=== PATIENT | female | born 1945 | race Caucasian/White ===

== ENCOUNTER → 2018-01-29 11:13 | Outpatient (CLI) | payer MEDICARE, SELFPAY ==
[2018-01-29 12:05] LABS: Hemoglobin A1c 5.8 % (4.2-6.3)
[2018-01-29 12:36] LABS: ALB/GLOB Ratio 0.8 RATIO (0.9-2.4); AST(SGOT) 14 U/L (15-37); Alanine Aminotransfer ALT/SGPT 19 U/L (13-56); Albumin, Serum 3.4 g/dL (3.2-5.0); Alkaline Phosphatase 45 U/L (45-117); Anion Gap 7 (5-15); BUN 18 mg/dL (7-18); BUN/Creat Ratio 16.2 RATIO (10-20); Calcium,Total 8.8 mg/dL (8.5-10.1); Chloride 100 mmol/L (98-107); Cholesterol 188 mg/dL (200); Creatinine, Serum 1.11 mg/dL (0.55-1.02); EST Glomerular Filtration Rate 51 mL/min (>60); Est Glom Filt Rate - Afr Amer 62 mL/min (>60); Globulin 4.1 g/dL (2.2-4.2); Glucose 100 mg/dL (74-106); High Density Lipoprotein 61 mg/dL; Potassium 4.1 mmol/L (3.5-5.1); Protein, Total 7.5 g/dL (6.4-8.2); Sodium Level 138 mmol/L (136-145); Thyroid Stim Hormone (TSH) 2.58 uIU/mL (0.358-3.74); Triglycerides 173 mg/dL; Very Low Density Lipoprotein 35 mg/dL (5-40)
[2018-01-29 13:17] LABS: Microalbumin,Random Urine 74.5 mg/L (NO RANGE EST.); Microalbumin:Creatinine Ratio 43.8 mg/g CRE (<30 mg/g CRE)
== END ==
PROVIDERS: Family Provider Family Medicine; PCP Family Medicine; Visit Provider Family Medicine
DX: I10 Essential (primary) hypertension (principal); E78.2 Mixed hyperlipidemia; E03.9 Hypothyroidism, unspecified; E11.9 Type 2 diabetes mellitus without complications
CPT/HCPCS: 36415; 80053; 80061; 82043; 82570; 83036; 84443

== ENCOUNTER → 2018-05-12 12:24 | Outpatient (CLI) | payer MEDICARE, SELFPAY | PROVIDERS: Family Provider Family Medicine; PCP Family Medicine; Visit Provider Nurse Practitioner Adult Health | DX: R82.99 Other abnormal findings in urine (principal); R32 Unspecified urinary incontinence | CPT/HCPCS: 87086; 87088 ==

== ENCOUNTER → 2018-07-20 11:53 | Outpatient (CLI) | payer MEDICARE, SELFPAY ==
[2018-07-20 13:44] LABS: Anion Gap 10 (5-15); BUN 19 mg/dL (7-18); BUN/Creat Ratio 20.2 RATIO (10-20); Chloride 105 mmol/L (98-107); Creatinine, Serum 0.94 mg/dL (0.55-1.02); EST Glomerular Filtration Rate 62 mL/min (>60); Est Glom Filt Rate - Afr Amer 75 mL/min (>60); Glucose 103 mg/dL (74-106); Potassium 3.3 mmol/L (3.5-5.1); Sodium Level 143 mmol/L (136-145)
[2018-07-20 13:46] LABS: Hemoglobin A1c 5.6 % (4.2-6.3)
== END ==
PROVIDERS: Family Provider Family Medicine; PCP Family Medicine; Visit Provider Family Medicine
DX: E11.9 Type 2 diabetes mellitus without complications (principal)
CPT/HCPCS: 36415; 80048; 83036

== ENCOUNTER 2018-08-18 05:16 | Day surgery (SDC) | payer MEDICARE, SELFPAY ==
[2018-08-18 05:42] VITALS: BP 151/88; PULSE 90; RESP 18; TEMP 36.3; O2SAT 97; BMI 42.5
[2018-08-18] MEDS: Cefazolin 2 GM in 0.9% Normal Saline 100 ML IV (07:44)
--- NOTE | 2018-08-18 08:35 | DCINST_ITS ---
Discharge Diet: No Restrictions Discharge Activity: Return to Normal Activity, May Not Drive - for 2 days. Additional Activity Instructions:: Please be aware that pain medications may cause nausea. You should typically eat light foods as you take your pain medication. Pain medication may cause constipation, if this is a problem for you, please discuss with your doctor. Call your doctor if your incision/area has: Sudden Increased Bleeding, Increased Pain/ Swelling, Increased Redness Call your doctor if you observe: Fever of 101 or Higher Additional Instructions: take ibuprofen, tyelnol and advil for pain. Allergies/Adverse Reactions: Allergies Sulfa (Sulfonamide Antibiotics) Allergy (Verified 08/11/18 10:25) Unknown sulfamethoxazole [From Septra] Allergy (Verified 08/11/18 10:25) Unknown trimethoprim [From Septra] Allergy (Verified 08/11/18 10:25) Unknown acetaminophen [From Vicodin] Adverse Reaction (Verified 08/11/18 10:25) Nausea/Vom/Diarrhea codeine Adverse Reaction (Verified 08/11/18 10:25) Nausea/Vom/Diarrhea hydrocodone [From Vicodin] Adverse Reaction (Verified 08/11/18 10:25) Nausea/Vom/Diarrhea lisinopril Adverse Reaction (Verified 08/11/18 10:25) cough Medications to take at Discharge Albuterol Aerosols [Ventolin Aerosols] 2.5 mg INHALATION Q4H PRN PRN 08/11/18 Hydrochlorothiazide 12.5 mg PO DAILY 08/11/18 Levothyroxine [Synthroid] 50 mcg PO DAILY 08/11/18 Metformin HCl [Metformin HCl ER] 500 mg PO DAILY 08/11/18 Multivit with Calcium,Iron,Min [Multiple Vitamins For Women] 1 each PO DAILY 08/11/18 Polyethylene Glycol 3350 [Miralax] 17 gm PO DAILY 08/11/18 Potassium Chloride [Klor-Con M10] 10 meq PO DAILY 08/11/18 Simvastatin [Zocor] 20 mg PO QHS 08/11/18 Primary Care Physician: Harjinder Borjas MD [Primary Care Provider] - Test Results: Test results from this visit will be discussed in further detail at your follow- up appointment, if applicable. Please Follow Up With: Earnest Lindsey MD When: in 2 weeks, please call to make an appointment.
[2018-08-18 08:37] VITALS: BP 124/59; BP 151/88; PULSE 83; RESP 18; TEMP 36.6; O2SAT 98
[2018-08-18 08:40] VITALS: BP 115/69; BP 151/88; PULSE 82; RESP 18; O2SAT 97
--- NOTE | 2018-08-18 08:40 | OP.PCM_ITS ---
Report of Operation Date of Procedure: 08/18/18 Pre-Operative Diagnosis: Overactive bladder, urgency and urge incontinence Post-Operative Diagnosis: Same Surgery/Procedure Performed:: InterStim therapy stage I and stage II Description of Surgical Findings:: 73-year-old female with a history of overactive bladder urgency number urge incontinence who is failed medical therapy. She underwent a percutaneous nerve evaluation trial in the office which was successful. So now she presents to the operating room for a stage I and II InterStim implant. 73-year-old female taken back to the operating room with smooth induction of MAC local she was placed prone on the table facedown pressure points padded we then exposed the lower back sacrum buttocks this was all prepped and draped in usual sterile fashion we then came in with fluoroscopy first identified the spinous process in the pelvis put a marker across that to akshat the the S3 foramen location I then marked the foraminal location laterally. We then marched up 2 cm from our entry point to the S3 foramen on fluoroscopy attempted to go the needle bit into the drop in then looking at the patient's body habitus we decided to switch to a longer needle I then marched up another 2 cm in order to have the proper angle into the S3 foramen and with this we then went in with a longer needle into the S3 foramen on the patient's right side. We then tested the electrode and she had good shannon and a toe response. So I then made an incision in the skin introduced the sheath stylette advanced this in so that the radiopaque marker was three fourths of the way between the anterior and po sterior plate of the sacrum. We then pulled the stylet out and placed the curved stylette and the electrode this is the electrode with 4-lead 0.012 and 3. Once we will advance the electrode into good position we put the 3 above the plate and 2 1 and 0 below the plate we checked anteriorly and a nice curve out and then we checked the lead placement checked 0 had good shannon and good toe checked 1 2 and 3 and same good shannon good tone in all 3 leads and 0 L well so because of this then we pulled the back of the sheath released and the times and the electrode was then left in place to stimulate the nerve and S3 nerve with good stimulation at 012 and 3. I then created a pocket laterally to the insertion point and pocket was deep in the subcutaneous layer for the generator pocket. I then tunneled from the insertion site to the pocket with a tunnel device and through the plastic sheath and then tunneled the lead to the pocket and then once in the pocket cleaned off the lead to make sure there is no blood tissue or fluid on it put it into the generator for the staged two-part and then to then use the using the provided bolt I then pulled secure the lead to the generator and then put into the pocket we then tested for impedance and there was no high impedance and good communication with the lead and all circuits were intact this was checked by the [employer] rep. We then closed the insertion site incision with a single stitch and then we closed the pocket with interrupted 0 Vicryls and the skin with 4-0 Monocryl patient's anesthetic was reversed and she was taken back to the PACU in good condition she will have her lead and InterStim device stimulated and she undergo training to use it and will see her back in the office in 2 weeks for checkup Type of Anesthesia:: Local MAC - Admit VTE Documentation VTE Present on Admission: No VTE Mechan Device Prophylaxis: SCD's
[2018-08-18 08:45] VITALS: BP 132/71; BP 151/88; PULSE 84; RESP 16; O2SAT 98
[2018-08-18 08:53] VITALS: BP 128/70; BP 151/88; PULSE 81; RESP 18; TEMP 36.7; O2SAT 100
[2018-08-18 09:19] VITALS: BP 151/88
== END 2018-08-18 09:26 | disposition home or self-care (01) ==
LOC: SDC 05:18 → AC 05:33
PROVIDERS: Family Provider Family Medicine; PCP Family Medicine; Visit Provider Urology
PROC: (CPT 64581; principal; 2018-08-18 07:15)
PROC: (CPT 64581; 2018-08-18 07:15)
DX: N32.81 Overactive bladder (principal); N39.41 Urge incontinence; R35.0 Frequency of micturition; R33.9 Retention of urine, unspecified; R35.1 Nocturia; I10 Essential (primary) hypertension; E78.00 Pure hypercholesterolemia, unspecified; H91.90 Unspecified hearing loss, unspecified ear; Z78.0 Asymptomatic menopausal state; E66.9 Obesity, unspecified; Z68.41 Body mass index [BMI] 40.0-44.9, adult; Z79.84 Long term (current) use of oral hypoglycemic drugs; Z79.899 Other long term (current) drug therapy; Z87.891 Personal history of nicotine dependence
CPT/HCPCS: 64581; 64590; 95970; 76000; J7120; C1767; C1778; C1820; J2405

== ENCOUNTER → 2018-09-02 11:07 | Outpatient (CLI) | payer MEDICARE, SELFPAY ==
[2018-09-02 12:00] LABS: Potassium 3.8 mmol/L (3.5-5.1)
== END ==
PROVIDERS: Family Provider Family Medicine; PCP Family Medicine; Referring Provider Family Medicine; Visit Provider Family Medicine
DX: E78.2 Mixed hyperlipidemia (principal); E11.9 Type 2 diabetes mellitus without complications; E87.6 Hypokalemia
CPT/HCPCS: 36415; 84132

== ENCOUNTER 2018-10-29 10:23 | Day surgery (SDC) | payer MEDICARE, SELFPAY ==
[2018-10-29 10:52] VITALS: BP 159/81; PULSE 90; RESP 16; TEMP 37.4; O2SAT 96; BMI 44.1
[2018-10-29] MEDS: Cefazolin 1 GM/50 ML BAG IV (12:36)
--- NOTE | 2018-10-29 13:10 | DCINST_ITS ---
Discharge Diet: Light diet - advance as tolerated Discharge Activity: Return to Normal Activity Call your doctor if you observe: Fever of 101 or Higher Allergies/Adverse Reactions: Allergies Sulfa (Sulfonamide Antibiotics) Allergy (Verified 10/28/18 14:36) Unknown sulfamethoxazole [From Septra] Allergy (Verified 10/28/18 14:36) Unknown trimethoprim [From Septra] Allergy (Verified 10/28/18 14:36) Unknown acetaminophen [From Vicodin] Adverse Reaction (Verified 10/28/18 14:36) Nausea/Vom/Diarrhea codeine Adverse Reaction (Verified 10/28/18 14:36) Nausea/Vom/Diarrhea hydrocodone [From Vicodin] Adverse Reaction (Verified 10/28/18 14:36) Nausea/Vom/Diarrhea lisinopril Adverse Reaction (Verified 10/28/18 14:36) cough Medications to take at Discharge Albuterol Aerosols [Ventolin Aerosols] 2.5 mg INHALATION Q4H PRN PRN 08/11/18 Hydrochlorothiazide 12.5 mg PO DAILY 08/11/18 Levothyroxine [Synthroid] 50 mcg PO DAILY 08/11/18 Metformin HCl [Metformin HCl ER] 500 mg PO DAILY 08/11/18 Multivit with Calcium,Iron,Min [Multiple Vitamins For Women] 1 each PO DAILY 08/11/18 Polyethylene Glycol 3350 [Miralax] 17 gm PO DAILY 08/11/18 Potassium Chloride [Klor-Con M10] 10 meq PO DAILY 08/11/18 Simvastatin [Zocor] 20 mg PO QHS 08/11/18 Cephalexin [Keflex] 500 mg PO Q8 #9 capsule 10/29/18 Mirabegron [Myrbetriq] 1 mg PO DAILY 30 Days #30 tab.er.24h 10/29/18 Solifenacin Succinate [Vesicare] 10 mg PO DAILY #30 tablet 10/29/18 The following prescriptions were given: Cephalexin [Keflex] 500 mg PO Q8 #9 capsule Mirabegron [Myrbetriq] 1 mg PO DAILY 30 Days #30 tab.er.24h Solifenacin Succinate [Vesicare] 10 mg PO DAILY #30 tablet Primary Care Physician: Harjinder Borjas MD [Primary Care Provider] - Test Results: Test results from this visit will be discussed in further detail at your follow- up appointment, if applicable. Please Follow Up With: Earnest Lindsey MD When: in 4 weeks, please call to make an appointment.
--- NOTE | 2018-10-29 13:10 | PCM.OPRPT ---
Report of Operation Date of Procedure: 10/29/18 Pre-Operative Diagnosis: Status post placement of InterStim device with severe pain Post-Operative Diagnosis: Same Surgery/Procedure Performed:: Removal of InterStim device complete. Description of Surgical Findings:: 73-year-old female who underwent a stage I and stage II InterStim placement successful placement with good response to the stimulation had better bladder control however in follow-up in the office she had severe pain in the back pain with movement she could move around very uncomfortable in the bed, expanded the patient is not normal we give it some time to see if the pain would resolve but the pain continued we try treating off the stimulator and still has a lot of pain in the back pain in the lower back and there is concerned that maybe is an infection or may be the InterStim device was pushing against the nerve or causing some discomfort so at this point I recommended we remove the InterStim device even though it was helping her bladder control I was concerned that living with his chronic pain that was new after placement would not be tolerated. Therefore we took the patient back to the operating room today after smooth induction of a MAC local she was placed facedown on the table the prior incision was was prepped and draped in usual sterile fashion infiltrated lidocaine into the incision and also to the insertion site, made an incision along the prior pocket dissected down to the generator device open up the pseudocapsule around the generator device we took a culture did not look infected, I then cut the lead remove the generator I then made an incision over the lead entry site pulled the lead through and then did a culture of the entry site of the lead again no pus was noted. Then I gently pulled on the lead and the lead came out from the patient's back. Copiously irrigated both the wounds and then include closed the insertion site for the lead placement and then closed the pocket site after obtaining hemostasis. Again no signs of infection not clear why she was having so much pain after the placement of the InterStim device told the patient is the first time I had the sort of pain or problem but given the new onset of pain after placement of the device best regulation caregivers to remove the device and see if the pain goes away. I will probably see the patient back in the office for follow-up in a few weeks. Type of Anesthesia:: Local MAC Drains: none - Admit VTE Documentation VTE Present on Admission: No VTE Mechan Device Prophylaxis: SCD's
[2018-10-29 13:13] VITALS: BP 158/76; BP 159/81; PULSE 94; RESP 16; TEMP 36.3; O2SAT 94
[2018-10-29 13:18] VITALS: BP 159/81; BP 162/64; PULSE 88; RESP 16; O2SAT 97
[2018-10-29 13:23] VITALS: BP 158/65; BP 159/81; PULSE 87; RESP 16; TEMP 36.1; O2SAT 99
[2018-10-29 13:28] VITALS: BP 159/81; BP 161/74; PULSE 87; RESP 16; TEMP 36.2; O2SAT 97
[2018-10-29 14:29] VITALS: BP 156/74; BP 159/81; PULSE 88; RESP 16; TEMP 36.2; O2SAT 96
--- OUTSIDE RECORDS SUMMARY | 2018-12-15 01:12 | XMS RPT_ITS ---
:1945 Author Organization [place] Support Name Relationship Address Phone ROBBIE HUNT Unavailable Unavailable + ROBBIE HUNT Unavailable [address] + [place] [address] R Unavailable Unavailable Unavailable NIKKI READ Unavailable Unavailable + ROBBIE HUNT Unavailable [address] + [place] [address] R Unavailable Unavailable Unavailable NASIR HUNTRY Unavailable [address] + [place] [address] R Unavailable Unavailable Unavailable NIKKI READ Unavailable Unavailable + ROBBIE HNUT Unavailable [address] + [place] [address] R Unavailable Unavailable Unavailable NIKKI READ Unavailable Unavailable + NASIR HUNTRY Unavailable [address] + [place] [address] R Unavailable Unavailable Unavailable NIKKI READ Unavailable Unavailable + ROBBIE HUNT Unavailable [address] + [place] [address] R Unavailable Unavailable Unavailable MARILEE ROBBIE Unavailable [address] + [place] [address] R Unavailable Unavailable Unavailable MARILEE ROBBIE Unavailable [address] + [place] [address] R Unavailable Unavailable Unavailable MARILEE ROBBIE Unavailable [address] + [place] [address] R Unavailable Unavailable Unavailable MARILEE ROBBIE Unavailable [address] + [place] [address] R Unavailable Unavailable Unavailable MARILEE ROBBIE Unavailable [address] + [place] [address] R Unavailable Unavailable Unavailable MARILEE ROBBIE Unavailable [address] + [place] [address] R Unavailable Unavailable Unavailable Care Team Providers Name Role Phone Michaelle Harjinder Attending Unavailable Woodlawn, Harjinder Primary Care Unavailable Woodlawn, Harjinder Referring Unavailable Florence Rosa Attending Unavailable Woodlawn, Harjinder Primary Care Unavailable Florence Rosa Referring Unavailable Woodlawn, Harjinder Attending Unavailable Michaelle, Harjinder Primary Care Unavailable Michaelle, Harjinder Referring Unavailable César, Earnest Falcon Attending Unavailable César, Earnest Falcno Referring Unavailable Woodlawn, Harjinder Primary Care Unavailable Woodlawn, Harjinder Attending Unavailable Michaelle, Harjinder Primary Care Unavailable Woodlawn, Harjinder Referring Unavailable César, Earnest Falcon Attending Unavailable César, Earnest Falcon Referring Unavailable Woodlawn, Harjinder Primary Care Unavailable Michaelle, Harjinder Attending Unavailable Woodlawn, Harjinder Referring Unavailable Michaelle, Harjinder Primary Care Unavailable Woodlawn, Harjinder Primary Care Unavailable Agyepong, Arthur Admitting Unavailable Chan, Nickolas Consulting Unavailable Cam Hadley Attending Unavailable Prah, Arthur Consulting Unavailable Agyepong, Arthur Admitting Unavailable Agyepong, Arthur Attending Unavailable Woodlawn, Harjinder Primary Care Unavailable Agyepong, Arthur Consulting Unavailable Agyepong, Arthur Admitting Unavailable Prah, Arthur Attending Unavailable Woodlawn, Harjinder Primary Care Unavailable Chan, Nickolas Consulting Unavailable Jopperi, Cam Referring Unavailable Prah, Arthur Consulting Unavailable Joppriddhi, Cam Consulting Unavailable Agyepong, Arthur Admitting Unavailable Woodlawn, Harjinder Primary Care Unavailable Chan, Nickolas Consulting Unavailable Cam Hadley Attending Unavailable Prah, Arthur Consulting Unavailable Joppriddhi, Cam Consulting Unavailable Agyepong, Arthur Admitting Unavailable ChanNickolas randall Attending Unavailable Woodlawn, Harjinder Primary Care Unavailable Chan, Nickolas Consulting Unavailable Prah, Arthur Consulting Unavailable Jopperi, Cam Consulting Unavailable HARJINDER BRASWELL Attending Unavailable HARJINDER BRASWELL Referring Unavailable MICHAELLE, HARJINDER Min Attending Unavailable Isra RODRIGUEZ (JESSICA) Attending Unavailable HARJINDER BRASWELL Attending Unavailable MICHAELLEHARJINDER Attending Unavailable HARJINDER BRASWELL Referring Unavailable MICHAELLEHARJINDER Referring Unavailable MICHAELLEHARJINDER Referring Unavailable MD SHANE RINCON Admitting Unavailable MD SHANE RINCON Referring Unavailable UNKNOWN, PCP Primary Care Unavailable Dr. Cheng Bethea Attending Unavailable PROBLEMS PROBLEMS DATE TYPE CONDITION / CODE ATTENDING STATUS SOURCE 11/10/2018 Unknown R10.11 - Right Harjinder Braswell Active [facility] upper quadrant Community pain / Hospital R10.11(ICD-10) Repository 11/10/2018 Unknown R06.02 - Shortness Harjinder Braswell Active [facility] of breath / Community R06.02(ICD-10) Hospital Repository 07/30/2009 Active Localized edema / NA Active [facility] R60.0(ICD-10) [facility] Repository 11/10/2018 Active Shortness of NA Active [facility] breath / [facility] R06.02(ICD-10) Repository 11/10/2018 Active Low back pain / NA Active [facility] M54.5(ICD-10) [facility] Repository 05/13/2018 Unknown R82.99 - Other Florence Rosa Active [facility] abnormal findings M Community in urine / Hospital R82.99(ICD-10) Repository 01/29/2018 Active Pain in right knee NA Active [facility] / M25.561(ICD-10) [facility] Repository 02/05/2018 Unknown I10 - Essential Harjinder Braswell Active [facility] (primary) Community hypertension / Hospital I10(ICD-10) Repository PROCEDURES PROCEDURES No Procedure Records FoundRESULTS RESULTS PROGRESS Observed: 12/08/2018 Status: COMPLETED Source: [place] 10:54 AM CLINIC [facility] REPOSITORY HNO ID: [id number] Author: Nikki (Nighat) Navin Service: (none) Author Type: Registered Nurse Type: Progress Notes Filed: 12/08/2018 11:08 AM Note Text: TRANSITION CARE MANAGEMENT (TCM) DISCHARGE TO POST ACUTE FACILITY POST ACUTE TRANSFER SUMMARY: -Pt discharged from [facility] on 12/04/18. 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 Procedures: Date: 23-Nov-2018 17:31:00 Procedure Name: T10-11 transpedicular decompression of metastatic spine tumor, T7-L2 posterior instrumentation and fusion with allograft, use of intraoperative O arm, use of C arm fluoroscopy, use of ultrasound, placement of 2 subfascial drains Hospital Course: Ms. Hunt is a pleasant 73 year old female former smoker w/ PMHx significant for HTN, impaired fasting glucose, hyperlipidemia, peripheral neuropathy, hypothyroidism, GERD, morbid obesity and recent spinal cord stimulator implant for overactive bladder 08/2018 with removal 10/2018 due to persistent back pain who was transferred to [facility] on 11/12/18 from [facility] after presenting there on 11/11/18 with intractable progressive back pain radiating around waist in band of 2- 3 weeks accompanied by SOB with increased pain with deep breath. Due to the pain she had the spinal cord stimulator implanted in August removed on 10/25/18 without improvement of pain. A CT of the chest, abdomen and pelvis was obtained and showed occlusion of the right middle bronchus with pleural effusion and a suspected pathologic fracture of the T10 vertebral body with canal stenosis as well as additional vertebral lesions at T8, T9, and T11 suspicious for additional metastases. A diagnostic right thoracentesis via U/S was with cytology ultimately found to be negative. An MRI of the T spine was obtained and showed the lesion was not compressing the spine but was however in close proximity to the cord, and therefore she was given Decadron with request for transfer to [facility] under oncology for further evaluation by neurosurgery. Given lack of tissue diagnosis at time of transfer, she was admitted to medicine for further evaluation. Neurosurgery was consulted and did not find evidence of cord compression on imaging. A CT of the thoracic and lumbar spine was done followed by a MRI of the entire spine at neurosurgery request. MRI consistent with T10 fracture and additional metastases. IV fluids were given for a mild SHLOMO with resolution. Pulmonology was consulted and a bronchoscopy w/ EBUS done under general anesthesia and sampling of right hilar mass and subcarinal lymph node with pathology from LN biopsy showed adenocarcinoma with lung primary. Oncology was consulted and recommended PET scan showed right central middle lobe malignancy with multiple metastasis to the axial skeleton, mediastinal and bilateral hilar lymph nodes. The lung tumor pathology additionally showed Positive PD-L1 Expression - may benefit from anti PD-1 Immunotherapy such as Keytruda. Palliative Care was consulted. Decadron and pamidronate were added to narcotics for pain control. Radiation oncology was consulted and does not plan to start radiation therapy until postoperative period. Neurosurgery did a T10-T11 decompression w/ T7-L2 fusion for thoracic spinal metastasis w/ cord compression on 11/23/18 with marked improvement pain. The thoracic surgical pathology showed adenocarcinoma with involvement of soft tissue and bone. She had a postoperative anemia w/ hgb drop from 14 to 8 and received a unit of blood with Hgb then stable and 9 at discharge. An MRI of the thoracic spine was repeated postoperative at neurosurgery request and surgical drains were removed. She developed a leukocytosis of 13k 11/30/18 with urine culture post catheter removal showing > 100,000 E. Coli and klebsiella and she was started on Zosyn. The following day, she developed a new moist cough, with new right sided rales on exam with chest x-ray showed a right middle lobe consolidation. Vancomycin was initially added, but transitioned to levofloxacin with resolution of leukocytosis with plan to complete a total 10 day course of antibiotics to cover both the HCAP as well as the Polymicrobial CAUTI (low suspicion for MRSA given initial Zosyn response). Her leukocytosis resolved and cough improved. Fortunately, her chronic urge incontinence was partially responsive to oxybutynin which had been effective in the past. Her home Metformin ER was not initiated as blood glucose was well controlled, and her home losartan/HCTZ was not reinitiated due to normal BP. Her separate HCTZ will be resumed at discharge due to some leg edema. A referral was made to [facility] for oncology and radiation oncology follow up. She needs skilled Care for continued physical rehabilitation. On 12/04/18 Ms. Hunt was discharged to SNF in a stable condition. She was supposed to leave the prior day, but ambulance transport could not be arranged. Nikki Holden RN December 08, 2018 10:57 AM CLINICAL EVENT Observed: 12/04/2018 Status: UNK Source: [facility] DISCHARGE 12:43 PM HOSPITALS REPOSITORY Event: Topic: Hospital discharge Details: On 12/04/18 Ms. Hunt was discharged to SNF in a stable condition. She was supposed to leave the prior day, but ambulance transport could not be arranged. Provider / Team Contact Information: Provider/Team Contact Info-Pager Number: Austin Amanda CNP/ pager [phone] Electronic Signatures: Austin Amanda (ALIGNMENT SPECIALIST-GRIEVANCE MANAGER) (Signed 04-Dec-2018 12:43) Authored: Event, Provider / Team Contact Information Last Updated: 04-Dec-2018 12:43 by Austin Amanda (ALIGNMENT SPECIALIST-GRIEVANCE MANAGER) DISCHARGE SUMMARY Observed: 12/03/2018 Status: COMPLETED Source: [place] 5:31 PM HOSPITALS REPOSITORY Send Summary: Discharge Summary Providers: Provider RoleProvider Name AttendingCasimiro Yusuf Note Recipients: MICHAELLE HARJINDER Min - [phone] [] EARNEST HERRERA Joseph, MD - [phone] Discharge: Summary: Admission Date: .12-Nov-2018 22:58:00 Discharge Date: 03-Dec-2018 Attending Physician at Discharge: Cheng Bethea Admission Reason: Metastatic Lung Cancer w/ Cord Compression Final Discharge Diagnoses: . 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 Procedures: Date: 23-Nov-2018 17:31:00 Procedure Name: T10-11 transpedicular decompression of metastatic spine tumor, T7-L2 posterior instrumentation and fusion with allograft, use of intraoperative O arm, use of C arm fluoroscopy, use of ultrasound, placement of 2 subfascial drains ronchoscopy Nov 15, 2018 Condition at Discharge: Satisfactory Disposition at Discharge: Care Home Facility Vital Signs: T PRBPSpO2 [id number]/7293% Date/Time12/03 14: 14: 14:001 14:001 14:00 Range(36.2C - 37.1C ) (73 - 81 ) (19 - 20 ) (118 - 123 )/ (66 - 72 ) (93% - 97% ) Highest temp of 37.1 C was recorded at 12/02 21:52 . Physical Exam: Constitutional: Obese female lying in bed in NAD Eyes: Sclera white ENMT: MMM Head/Neck: Normocephalic Respiratory/Thorax: Nonlabored. Lungs CTA bilaterally. Cardiovascular: RRR. Normal S1/S2. No M/R/G noted. Gastrointestinal: Abdomen soft and nontender. Normoactive bowel sounds. Musculoskeletal: WRIGHT Extremities: +1 BLE edema. Neurological: Alert and oriented x3 Psychological: Appropriate mood and behavior; pleasant affect Skin: Long thoracic surgical incision with brittni intact. Hospital Course: Ms. Hunt is a pleasant 73 year old female former smoker w/ PMHx significant for HTN, impaired fasting glucose, hyperlipidemia, peripheral neuropathy, hypothyroidism, GERD, morbid obesity and recent spinal cord stimulator implant for overactive bladder 08/2018 with removal 10/2018 due to persistent back pain who was transferred to [facility] on 11/12/18 from [facility] after presenting there on 11/11/18 with intractable progressive back pain radiating around waist in band of 2- 3 weeks accompanied by SOB with increased pain with deep breath. Due to the pain she had the spinal cord stimulator implanted in August removed on 10/25/18 without improvement of pain. A CT of the chest, abdomen and pelvis was obtained and showed occlusion of the right middle bronchus with pleural effusion and a suspected pathologic fracture of the T10 vertebral body with canal stenosis as well as additional vertebral lesions at T8, T9, and T11 suspicious for additional metastases. A diagnostic right thoracentesis via U/S was with cytology ultimately found to be negative. An MRI of the T spine was obtained and showed the lesion was not compressing the spine but was however in close proximity to the cord, and therefore she was given Decadron with request for transfer to [facility] under oncology for further evaluation by neurosurgery. Given lack of tissue diagnosis at time of transfer, she was admitted to medicine for further evaluation. Neurosurgery was consulted and did not find evidence of cord compression on imaging. A CT of the thoracic and lumbar spine was done followed by a MRI of the entire spine at neurosurgery request. MRI consistent with T10 fracture and additional metastases. IV fluids were given for a mild SHLOMO with resolution. Pulmonology was consulted and a bronchoscopy w/ EBUS done under general anesthesia and sampling of right hilar mass and subcarinal lymph node with pathology from LN biopsy showed adenocarcinoma with lung primary. Oncology was consulted and recommended PET scan showed right central middle lobe malignancy with multiple metastasis to the axial skeleton, mediastinal and bilateral hilar lymph nodes. The lung tumor pathology additionally showed Positive PD-L1 Expression - may benefit from anti PD-1 Immunotherapy such as Keytruda. Palliative Care was consulted. Decadron and pamidronate were added to narcotics for pain control. Radiation oncology was consulted and does not plan to start radiation therapy until postoperative period. Neurosurgery did a T10-T11 decompression w/ T7-L2 fusion for thoracic spinal metastasis w/ cord compression on 11/23/18 with marked improvement pain. The thoracic surgical pathology showed adenocarcinoma with involvement of soft tissue and bone. She had a postoperative anemia w/ hgb drop from 14 to 8 and received a unit of blood with Hgb then stable and 9 at discharge. An MRI of the thoracic spine was repeated postoperative at neurosurgery request and surgical drains were removed. She developed a leukocytosis of 13k 11/30/18 with urine culture post catheter removal showing > 100,000 E. Coli and klebsiella and she was started on Zosyn. The following day, she developed a new moist cough, with new right sided rales on exam with chest x-ray showed a right middle lobe consolidation. Vancomycin was initially added, but transitioned to levofloxacin with resolution of leukocytosis with plan to complete a total 10 day course of antibiotics to cover both the HCAP as well as the Polymicrobial CAUTI (low suspicion for MRSA given initial Zosyn response). Her leukocytosis resolved and cough improved. Fortunately, her chronic urge incontinence was partially responsive to oxybutynin which had been effective in the past. Her home Metformin ER was not initiated as blood glucose was well controlled, and her home losartan/HCTZ was not reinitiated due to normal BP. Her separate HCTZ will be resumed at discharge due to some leg edema. A referral was made to [facility] for oncology and radiation oncology follow up. She needs skilled Care for continued physical rehabilitation. On 12/04/18 Ms. Hunt was discharged to SNF in a stable condition. She was supposed to leave the prior day, but ambulance transport could not be arranged. 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 May shower.. Weight-bearing Instructions: full weight bearing. Balance activity with rest, gradually increase your activity as tolerated Exercise as prescribed by your physician Slowly increase your activity level. You may feel fine but your body is still recovering and needs a balance of sleep and rest. It may take a month or two before you regain the energy you had before surgery No heavy lifting (more than 10 pounds), pulling or pushing activity until cleared by MD at follow-up appointment Nutrition/Diet: low sodium Labs: Lab Test(s): Basic Metabolic Panel, CBC Date To Be Drawn: one week Wound Care: Wound Site: Thoracic spine Wound Type: surgical incision Cover With: no dressing, leave open to air Inspect your incision daily for signs of infection: redness, swelling, drainage and foul discharge Keep surgical incision open to air DO NOT soak in a tub or swim until incision is completely healed. This may take approximately 4 weeks DO NOT scrub the incision DO NOT pick off scabs, or old blood from the incision site. The incision should heal naturally on its own No Lotions, creams, gels or powders. No hair products, conditioner, rubbing alcohol, hydrogen peroxide or ointments on or around your incision There may be some tenderness, bruising and a small amount of swelling along the incision line. This will gradually go away over the next several weeks Additional Orders: Blood Glucose Monitoring: daily Accu-Chek Weight: three times a week Additional Instructions: Home Metformin ER 500 mg daily and Losartan-HCTZ 50-12.5 mg have not currently been resumed due to good blood glucose and blood pressure control. JHONY wraps or sequential compression devices to bilateral lower legs. Rehab Services: Occupational Therapy Orders: Eval and Treat ([facility]) daily Physical Therapy Orders: Eval and Treat ([facility]) daily Infectious Disease: PPD Status: not given MRSA: no VRE: no C. Diff: no Other Resistant Organism: no Isolation Type: none Care Recommendation: I recommend that INPATIENT care is required at:: Skilled Estimated Stay: Convalescent stay < 30 days Follow Up Appointments: Follow-Up Appointment 01: Physician/Dept/Service: Dr. Harjinder Braswell (Primary Care Provider) Reason for Referral: hospital follow up Call to Schedule in: call to schedule a follow-up appointment upon discharge from detention facility Location: [address] [place] [address], [place] [id number] / Follow-Up Appointment 02: Physician/Dept/Service: Dr. Arthur Gates (Medical Oncology) Reason for Referral: Metastatic Lung Cancer Scheduled Date/Time: 09-Dec-2018 13:00 Location: [place] [id number] / crew scheduler [phone] Follow-Up Appointment 03: Physician/Dept/Service: Dr. Raji Guerrero (Radiation Oncology) Reason for Referral: Metastatic Lung Cancer to the Spine Call to Schedule in: to be arranged - if you have not heard by the time you see Dr. Gates, let him know Location: [place] [address] / crew scheduler [phone] Follow-Up Appointment 04: Physician/Dept/Service: Dr. Huber Tamayo (Neurosurgery) Reason for Referral: follow up Thoracic Spine Decompression with Fusion Surgery Scheduled Date/Time: 15-Dec-2018 14:00 Location: [facility] [address] [place] [address] Dr. Adan [address] [place] [id number] Discharge Medications: Home Medication hydroCHLOROthiazide 12.5 mg oral tablet - 1 tablet orally once a day simvastatin 20 mg oral tablet - (Zocor) 1 tablet orally once a day at bedtime potassium chloride 10 mEq oral tablet, extended release - 1 tablet orally once a day levothyroxine 50 mcg (0.05 mg) oral tablet - (Synthroid) 1 tablet orally once a day Multiple Vitamins oral tablet - 1 tablet orally once a day acetaminophen 325 mg oral tablet - 3 tablets (975 mg) orally three times a day enoxaparin - 40 mg subcutaneous every 12 hours polyethylene glycol 3350 oral powder for reconstitution - 17 grams orally 2 times a day pantoprazole 40 mg oral delayed release tablet - 1 tablet orally once a day (while getting non-steroidal anti-inflammatory medications for pain) levoFLOXacin 500 mg oral tablet - 1 tablet orally every 24 hours - stop 12/11/18 conjugated estrogens 0.625 mg/g vaginal cream with applicator - 0.25 applicatorful - place at urethral oriface once a day at bedtime oxybutynin 5 mg oral tablet - 1 tablet orally 4 times a day guaiFENesin 1200 mg oral tablet, extended release - 1 tablet orally every 12 hours lidocaine 5% topical film - Apply topically to upper back region of pain (may cut in half and apply on each side) once a day PRN Medication bisacodyl 10 mg rectal suppository - 1 suppository(ies) rectal once a day, As needed, constipation not relieved by Miralax oxyCODONE 5 mg oral tablet - 1 tablet orally every 4 to 6 hours up to four doses each day, As Needed for severe pain benzonatate 200 mg oral capsule - 1 capsule orally 3 times a day, As needed, Cough albuterol 2.5 mg/3 mL (0.083%) inhalation solution - 3 ml inhaled via Nebulizer every 6 hours, As Needed for shortness of breath naproxen 500 mg oral tablet - 1 tablet orally 2 times a day, As needed, back surgical pain Lab Results - Pending: None Radiology Results - Pending: Midline Placement in Radiology (greater than 5 years) at 17-Nov-2018 12:26:00 Signature/Cosignature/Attestation: Provider/Team Contact Info-Pager Miriam Carlos [facility] # [phone] Attending Only - Shared Visit with Advanced Practice ProviderThis is a shared visit. I have reviewed the Advanced Practice Providers encounter note, approve the Advanced Practice Providers documentation, and provide the following additional information from my personal encounter. Comments/ Additional Findings patient doing well. planned for discharge, but secondary to transportation issues this discharge was delayed Seen at the bedside. Did not leave the hospital last night. Still with some back pain and cough, but doing better. Would like to leave with her daughter, given delay in transport. OK to leave with family, patient stable, not on oxygen Discharge to SNF today. Total time spent on discharge planning and arrangements is more than 30 mins Electronic Signatures: Cheng Bethea) (Signed 07-Dec-2018 07:29) Authored: Summary Content, Ongoing Care, Signature/Cosignature/Attestation Co-Signer: Summary Content, Ongoing Care, Signature/Cosignature/Attestation Nessa Carlos (ALIGNMENT SPECIALIST-GRIEVANCE MANAGER) (Signed 03-Dec-2018 20:03) Authored: Send Summary, Summary Content, Ongoing Care, Signature/Cosignature/Attestation Austin Amanda Isra (ALIGNMENT SPECIALIST-GRIEVANCE MANAGER) (Signed 04-Dec-2018 12:42) Authored: Send Summary, Summary Content, Ongoing Care, Signature/Cosignature/Attestation Casimiro Yusuf) (Signed 05-Dec-2018 18:25) Authored: Summary Content, Ongoing Care, Signature/Cosignature/Attestation Co-Signer: Send Summary, Summary Content, Ongoing Care, Signature/Cosignature/Attestation Last Updated: 07-Dec-2018 07:29 by Cheng Bethea) CBC Collected: 12/03/2018 Status: F Source: [facility] 4:55 PM HOSPITALS REPOSITORY TYPE CODE TESTS RESULT OUT OF REFERENCE UNITS RANGE LAB WBCR(LOINC 4.4 - 11.3 x10E9/L ) WBC 7.1 LAB NRBC(LOINC 0.0-0.0 /100 WBC ) NUCLEATED RBC 0.0 LAB RBCCT(LOIN 4.00 - 5.20 x10E12/L C) Low RBC 2.99 LAB HGB(LOINC) 12.0 - 16.0 g/dL Low HGB 9.1 LAB HCT(LOINC) 36.0 - 46.0 % Low HCT 29.9 LAB MCV(LOINC) 80 - 100 fL MCV 100 LAB MCHC2(LOIN 32.0 - 36.0 g/dL C) Low MCHC 30.4 LAB PLTCT(LOIN 150 - 450 x10E9/L C) PLT High 510 LAB RDWCV(LOIN 11.5 - 14.5 % C) RDW-CV 14.1 Performed By: #### CBC #### [facility] [id number] [place] [address] DAILY PROGRESS Observed: 12/03/2018 Status: COMPLETED Source: [facility] NOTE-PALLIATIVE CARE 11:01 AM HOSPITALS REPOSITORY Consult Type: subsequent visit/care Service: Palliative Care Subjective Data: TRISH HUNT is a 73 year old Female who is Hospital Day # 22 and POD #10 for T10-11 transpedicular decompression of tumor, T7-L2 instrumented fusion. Additional Information: Subjective / interval events: - patient used oxycodone 5mg a total of 4 times yesterday (approx 5a, 9a, 3p, and 11p) - 24h opioid requirement was 30mg oral morphine equivalents (OME) - patient reports pain continues to be an issue with movement and cough but not as severe as previously - patient denies other complaints Objective Data: Objective Information: T PRBPSpO2 [id number]% Date/Time12/03 5: 5: 5: 5: 5:13 Range(36.4C - 37.1C ) (73 - 82 ) (19 - 19 ) (116 - 123 )/ (66 - 72 ) (95% - 97% ) Highest temp of 37.1 C was recorded at 12/02 21:52 Pain reported at 12/02 22:30: 6 Physical Exam: Constitutional: older, obese woman sitting up in bed, comfortable appearing except with occasional cough displays pain behaviours Respiratory/Thorax: breathing comfortably on room air, intermittent non-productive rattling cough Neurological: awake, alert, and oriented; no myoclonus Psychological: calm, cooperative Medication: Medications: Continuous Medications No continuous medications are active Scheduled Medications 1. Acetaminophen: 975 mg Oral <User Schedule> 2. Conjugated Estrogens 0.625mg/ gram Va.25 applicatorful Vaginal At Bedtime 3. guaiFENesin Extended Release: 1200 mg Oral Every 12 Hours 4. levoFLOXacin: 500 mg Oral Every 24 Hours 5. Levothyroxine: 50 microgram(s) Oral Daily 6. Lidocaine 5% TransDermal: 1 patch TransDermal Every 24 Hours 7. Oxybutynin: 5 mg Oral 4 Times a Day 8. oxyCODONE Immediate Release: 5 mg Oral <User Schedule> 9. Pantoprazole: 40 mg Oral Daily 10. Polyethylene Glycol: 17 gram(s) Oral 2 Times a Day 11. Simvastatin: 20 mg Oral At Bedtime PRN Medications 1. Albuterol 2.5 mg/ 3 mL Nebulizer Soln: 3 mL Inhalation Every 2 Hours 2. Benzonatate: 200 mg Oral 3 Times a Day 3. Bisacodyl Rectal: 10 mg Rectal Daily 4. Loratadine: 10 mg Oral Daily 5. Naproxen: 500 mg Oral 2 Times a Day 6. oxyCODONE Immediate Release: 5 mg Oral Every 4 Hours Recent Lab Results: Results: I have reviewed these laboratory results: Basic Metabolic Panel [Drawn 02-Dec-2018 11:40:00], Complete Blood Count [Drawn 02-Dec-2018 11:40:00]. Radiology Results: Results: I have reviewed these studies: Xray Chest 2 View PA + Lateral [Dec 01 2018 4:26PM] Xray Hip 2 View [Nov 30 2018 12:00PM] MRI T Spine w/wo Contrast [Nov 26 2018 5:09PM] Assessment and Plan: Assessment: Trish Hunt is a 73 yo F with a PMH of HTN, DMII, morbid obesity, hypothyroidism, DLD, and lung cancer with metastases to the spine s/p neurosurgical decompression + fixation of the T-L spine on 11/23/18. Palliative care was consulted for pain management. #Pain: seems well controlled with opioid requirement which continues to decrease - continue oxycodone 5mg q4h while awake - can transition to oxycodone 5mg four times per day as needed after discharge - continue scheduled acetaminophen #Opioid induced constipation: pt at risk while on opioids, not currently complaining - monitor BM frequency and quality - continue daily Miralax Thank you for allowing us to participate in the care of this patient. Palliative Team will continue to follow as needed. Please contact team with any questions or concerns. [id number] Electronic Signatures: Annette Keller) (Signed 03-Dec-2018 16:32) Authored: Service, Subjective Data, Objective Data, Assessment and Plan, Signature/Cosignature/Attestation Last Updated: 03-Dec-2018 16:32 by Annette Keller) DAILY PROGRESS Observed: 12/02/2018 Status: COMPLETED Source: [facility]IC[facility] 3:07 PM HOSPITALS REPOSITORY Service: Medicine Subjective Data: TRISH HUNT is a 73 year old Female who is Hospital Day # 21 and POD #9 for T10-11 transpedicular decompression of tumor, T7-L2 instrumented fusion. I slept last night. I still have the cough, but it is a little better.. Overnight Events: Patient had an uneventful night. Additional Information: Reports no pain at rest, some pain with movement, but feels it is controlled. 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 (11/2018 EBUS) - Thoracic Spinal Metastasis w/ Cord Compression * T10-T11 Decompression w/ T7-L2 Fusion w/ Allograft 11/2018 - Hypothyroidism - GERD - Peripheral Neuropathy - Morbid Obesity - Overactive Bladder * Spinal Cord Stimulator Implantation 08/2018 (removed 11/02) - Tonsillectomy - Hemorrhoidectomy - Cholecystectomy - L4-L5 Decompression 1999 T PRBPSpO2 [id number]/[id number]% Date/Time12/02 14: 14: 14: 14: 14:00 Range(36.2C - 36.7C ) (76 - 82 ) (18 - 19 ) (107 - 116 )/ (66 - 72 ) (93% - 97% ) Pain reported at 12/02 8:15: 0 Physical Exam: Constitutional: Alert and oriented lying in bed in no distress Eyes: Sclera white ENMT: Mucous membranes moist Head/Neck: Normocephalic Respiratory/Thorax: Respirations easy and unlabored with right mid basilar rales, but less than yesterday Cardiovascular: Heart with regular rhythm, S1, S2, no appreciable murmur Gastrointestinal: Abdomen obese, non-distended, active bowel sounds, soft, non-tender Musculoskeletal: ROM intact, no joint swelling, normal strength. Extremities: No cyanosis or wounds. 1+ pitting edema of lower legs and feet bilaterally. Neurological: Alert and oriented x3, intact senses and motor responses with 5/5 strength of arms and legs bilaterally Psychological: Appropriate mood and behavior Skin: No rashes. Long thoracic surgical incision dry and intact, well approximated with surgical brittni present. Steri strip over hemovac sites. Medication: Medications: Scheduled Medications 1. Acetaminophen: 975 mg Oral <User Schedule> 2. Conjugated Estrogens 0.625mg/ gram Va.25 applicatorful Vaginal At Bedtime 3. levoFLOXacin: 500 mg Oral Every 24 Hours 4. Levothyroxine: 50 microgram(s) Oral Daily 5. Lidocaine 5% TransDermal: 1 patch TransDermal Every 24 Hours 6. Oxybutynin: 5 mg Oral 4 Times a Day 7. oxyCODONE Immediate Release: 5 mg Oral Every 6 Hours 8. Pantoprazole: 40 mg Oral Daily 9. Polyethylene Glycol: 17 gram(s) Oral 2 Times a Day 10. Simvastatin: 20 mg Oral At Bedtime 11. Sodium Chloride 0.9% Injectable Flush: 10 mL IntraVenous Flush Every 12 Hours PRN Medications 1. Albuterol 2.5 mg/ 3 mL Nebulizer Soln: 3 mL Inhalation Every 2 Hours 2. Bisacodyl Rectal: 10 mg Rectal Daily 3. Heparin Flush 10 unit/ mL PF Injectable: 5 mL IntraVenous Flush Every 12 Hours 4. Heparin Flush 10 unit/ mL PF Injectable PRN: 5 mL IntraVenous Flush According to Flush Policy 5. Loratadine: 10 mg Oral Daily 6. Naproxen: 500 mg Oral 2 Times a Day 7. Ondansetron Injectable: 4 mg IntraVenous Push Every 6 Hours 8. Sodium Chloride 0.9% Injectable Flush PRN: 10 mL IntraVenous Flush According to Flush Policy 9. Sodium Chloride 0.9% Injectable Flush PRN: 20 mL IntraVenous Flush According to Flush Policy Recent Lab Results: Results: I have reviewed these laboratory results: Basic Metabolic Panel 02-Dec-2018 11:40:00 ResultValue Glucose, Serum 110 H NA 138 K 4.3 CL 104 Bicarbonate, Serum 26 Anion Gap, Serum 12 BUN 10 CREAT 0.94 GFR-Non 58 A GFR- 70 Calcium, Serum 8.6 Complete Blood Count Trending View [id number] 11:40:00 01-Dec-2018 05:05:00 White Blood Cell Count6.9 11.1 Nucleated Erythrocyte Count0.0 0.0 Red Blood Cell Count3.17 L 2.66 L HGB9.7 L 8.0 L HCT32.4 L 26.8 L [id number] H 101 H MCHC29.9 L 29.9 L [id number] H 371 RDW-CV14.0 14.3 11/30/18: URINE CULTURE,BACTERIAL FINAL 12/02/18 11:08 ISOLATE1 : Escherichia coli >100,000 CFU/ML ISOLATE2 : Klebsiella oxytoca >100,000 CFU/ML Organism E coli Kl oxytoca Antibiotic BP INTRP BP INTRP Ampicillin S R Ceftriaxone S Cefotaxime S Cefazolin S S Ciprofloxacin S S Nitrofurantoin S S Gentamicin S S Levofloxacin S S Piperc/Tazobact S S Trimeth/Sulfa S S Tetracycline S S Amox/Clavulanate S Assessment and Plan: Assessment: Trish Hunt is a 73 year old female former smoker w/ PMHx significant for HTN, Impaired Fasting Glucose, Hyperlipidemia, Peripheral Neuropathy, Hypothyroidism, GERD, Morbid Obesity and Recent Spinal Cord Stimulator Implant who is transferred to [facility] 11/12/18 from [facility] after presenting with intractable progressive back pain with SOB and found on imaging to have a lung mass with adenopathy and suspected spinal metastasis which has now been proven to be a Lung Adenocarcinoma and she underwent Surgical Decompression of her Spinal Metastasis PLAN: In Shared Visit with Dr. Cheng Bethea 1) STAGE IV METASTATIC LUNG ADENOCARCINOMA: Former smoker. Reported SOB and chest pain with deep breath at [place] ER presentation 11/11/18. A CT of the Chest showed Occlusion of the right middle bronchus with pleural effusion with suspected spinal metastasis. A diagnostic Right Thoracentesis via U/S was obtained 11/12/18 for 140 ml of fluid with fluid cytology resulting negative. MRI of the brain 11/14/18 without lesions. Pulmonology consulted and a Bronchoscopy w/ EBUS 11/15/19 with sampling of right hilar mass and subcarinal lymph node which were both positive for adenocarcinoma. Lymph node FNA Pathology showed Positive PD-L1 Expression as well. Oncology and Radiation Oncology were consulted with plan to follow up following surgical healing from thoracic metastatic decompression and fusion patient desires to do this at [place] location. [facility] facility [facility] [place] [facility], but insurance accepted at [facility] in [place]. Dr. Arthur Gates of Oncology there saw her as an inpatient prior to her transfer here - arrange for follow up at [facility] with Dr. Arthur Gates of Oncology as well as Radiation Oncology there. Pathology and procedural reports as well as radiology reports faxed to them at [phone] for follow up arrangement. - Make CD of Imaging for patient to bring to [facility] appointment 2) T10 PATHOLOGIC METASTATIC FRACTURE w/ CORD COMPRESSION: Presented to [facility] 11/11/18 with intractable progressive back pain radiating around waist in band of 2-3 weeks accompanied by SOB. Due to the pain she had the Spinal Cord Stimulator Implanted in August removed on 10/25/18 without improvement of pain. She has prior disc surgery L4-L5 several years back and has been asymptomatic from it. She does have chronic urinary urge incontinence which has come back after her spinal stimulator was recently removed. A CT Chest, Abdomen and Pelvis at [place] showed a suspected Pathologic fracture of the T10 vertebral body with canal stenosis as well as additional vertebral lesions at T8, T9, and T11 suspicious for additional metastases. An MRI of the T spine was obtained and showed the lesion was not compressing the spine but was however in close proximity to the cord, and therefore she was given Decadron with request for transfer to [facility] for Neurosurgery evaluation. Neurosurgery consulted. CT Thoracic and Lumbar Spine as well as MRI of entire spine done and on 11/23/18. Significant Pain was an issue and Palliative care consulted and Dexamethasone as well as a dose of Pamidronate given. She underwent a Thoracic Decompression and Fusion with back pain much improved. Post-operative thoracic x-ray done 11/26/18. Post- op MRI of the Spine under Anesthesia 11/26/18 reviewed by Neurosurgery. 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 Initially on IV DETONATOR ASSEMBLER of Hydromorphone, but now transitioned to oral Oxycodone scheduled with PRN breakthrough with pain overall improving. [place] Toradol helped back pain and transitioned to Naproxen. Declined scheduled Oxycodone during the night - change scheduled Oxycodone from every 4 hours to qid - continue Naproxen 500 mg by mouth twice a day PRN breakthrough pain - Oxycodone 5 mg every 4 hours PRN breakthrough pain. - continue Acetaminophen 975 mg by mouth tid - follow up with Dr. Huber Tamayo (Neurosurgery) 15-Dec-2018 14:00 - arrangement for follow up at [facility] requested 3) HCAP: Developed a leukocytosis of 13k 11/30/18 with new moist cough yesterday with new right sided rales on exam and right middle lobe consolidation on CXR. WBC decreased to 11k yesterday with initiation of Zosyn, and down to 7 k today with cough improving overall - Vancomycin initiated yesterday. Afebrile. Patient has lost IV access - discontinue Zosyn and Vancomycin - start Levofloxacin 500 mg daily - Mucinex twice a day - Tessalon perles three times a day PRN - check CBC in a.m. - continue incentive spirometer - sputum C&S 4) POLYMYCROBIAL ENTERIC BACILLI UTI: Developed a leukocytosis of 13k 11/30/18 with urine reportedly cloudy and culture showing > 100k E. Coli and Klebsiella - both sensitive to Zosyn, Bactrim (pt. has Sulfa allergy) Cefazolin, Nitrofurantoin, Cefazolin, Cipro and Levofloxacin. - discontinue IV Zosyn - given # 3, start Levofloxacin 500 mg by mouth daily 5) LEFT HIP PAIN: Developed 11/27/18 with weight bearing. x-ray 11/28/18 c/w OA, bilateral hips, but no fracture or dislocation. - continue pain meds as per # 2 6) ACUTE BLOOD LOSS ANEMIA: Post-operative. H&H 14 & 46 at admit, decreased to 8 & 25 post-op 11/24/17 and then stable at H&H 10 & 29 - post a unit of blood post-operative. H&H today now 10 & 31 - was 8 & 27 yesterday and 9 & 28 11/30/18 - check CBC in a.m. 7) BILATERAL LEG EDEMA: edema improved overall with fluid drainage of right lower leg from pinhole lesion resolved. - JHONY wraps to legs PRN comfort 8) URGE INCONTINENCE: Has been a big issue for patient in past with Oxybutynin initially helping, but then failed and failed multiple other agents resulting in successful spinal cord stimulator implant in August, which was removed in October due to back pain which unfortunately turned out to be back metastasis of CA. [place] discontinued 11/28/18 with Oxybutynin initiated with moderate control - continue Oxybutynin 5 mg four times a day - Purewick PRN 8) IMPAIRED FASTING GLUCOSE: Denies diagnosis of Diabetes. States was told had elevated blood glucose 20 years ago with Metformin initiated as -preventive. 07/2018 Hgb A1C normal. Blood glucose 110 on a.m. labs. I suspect with recent weight loss, this may no longer be needed - continue to hold home Metformin ER 9) HYPOTHYROIDISM: TSH 0.86 - continue home Levothyroxine 50 mcg daily 10) OBESITY: BMI 43 11) CODE STATUS: Re-Discussed with patient 11/25/18. She continues to desire full interventions at arrest, but would not desire prolonged life support - Full code - Palliative Care informed of patient wishes 12) DVT PROPHYLAXIS: - continue Enoxaparin 40 mg subcutaneous twice a day - sequential compression devices. 13) DISCHARGE DISPOSITION: Lives with . PT recommends Skilled Care, which patient is agreeable to closer to home in [place]. Social work consulted. Family at bedside and supportive - daughter given CD disc of patient's radiologic examinations to bring to follow up at [facility] Follow up PCP: Dr. Harjinder Braswell [phone] Urology: Dr. Earnest Herrera Pharmacy: [facility] ([place]) [phone] DME: Nebulizer Insurer: [employer] Medicare Family: / POA Healthcare - Robbie Hunt [phone] Dtr. / 1st Alt. POA - Annita [place] [phone] / [phone] Dtr. / 2nd Alt. POA HC - Dionne Read [phone] Follow Up: Dr. Huber Tamayo (Neurosurgery) 15-Dec-2018 14:00 [facility] [place] [address] [facility] Signature/Cosignature/Attestation: Provider/Team Contact Info-Pager Miriam Carlos CNP # [id number] Attending Only - Shared Visit with Advanced Practice ProviderThis is a shared visit. I have reviewed the Advanced Practice Providers encounter note, approve the Advanced Practice Providers documentation, and provide the following additional information from my personal encounter. Comments/ Additional Findings cough decreased, but still present, pain steadily improving as well. urine culture noted and will change antibiotics to Levaquin to cover urine and most lung pathology. lower concern for MRSA given improvement without MRSA coverage the first night and no purulent copious sputum production more typical for MRSA. can use guaifenesin and tessalon pearles as needed. we will also space out oxycodone given good pain control. working towards discharge Electronic Signatures: Cheng Bethea) (Signed 02-Dec-2018 17:36) Authored: Signature/Cosignature/Attestation Nessa Carlos (ALIGNMENT SPECIALIST-GRIEVANCE MANAGER) (Signed 02-Dec-2018 21:33) Authored: Service, Subjective Data, Objective Data, Assessment and Plan, Signature/Cosignature/Attestation Last Updated: 02-Dec-2018 21:33 by Nessa Carlos (ALIGNMENT SPECIALIST-GRIEVANCE MANAGER) CBC Collected: 12/02/2018 Status: F Source: [facility] 11:40 AM HOSPITALS REPOSITORY TYPE CODE TESTS RESULT OUT OF REFERENCE UNITS RANGE LAB WBCR(LOINC 4.4 - 11.3 x10E9/L ) WBC 6.9 LAB NRBC(LOINC 0.0-0.0 /100 WBC ) NUCLEATED RBC 0.0 LAB RBCCT(LOIN 4.00 - 5.20 x10E12/L C) Low RBC 3.17 LAB HGB(LOINC) 12.0 - 16.0 g/dL Low HGB 9.7 LAB HCT(LOINC) 36.0 - 46.0 % Low HCT 32.4 LAB MCV(LOINC) 80 - 100 fL MCV High 102 LAB MCHC2(LOIN 32.0 - 36.0 g/dL C) Low MCHC 29.9 LAB PLTCT(LOIN 150 - 450 x10E9/L C) PLT High 472 LAB RDWCV(LOIN 11.5 - 14.5 % C) RDW-CV 14.0 Performed By: #### CBC #### [facility] [id number] [place] [address] BASIC METABOLIC PANEL Collected: 12/02/2018 Status: F Source: [place] 11:40 AM HOSPITALS REPOSITORY TYPE CODE TESTS RESULT OUT OF RANGE REFERENCE UNITS LAB GLU(LOINC) 74 - 99 mg/dL High GLUCOSE 110 LAB SOD(LOINC) 136 - 145 mmol/L SODIUM 138 LAB K(LOINC) 3.5 - 5.3 mmol/L POTASSIUM 4.3 LAB CHLOR(LOIN 98 - 107 mmol/L C) CHLORIDE 104 LAB BIC(LOINC) 21 - 32 mmol/L BICARBONATE 26 LAB ANGAP(LOIN 10 - 20 mmol/L C) ANION GAP 12 LAB UREA(LOINC 6 - 23 mg/dL ) UREA NITROGEN 10 LAB CREA(LOINC 0.50 - 1.05 mg/dL ) CREATININE 0.94 LAB GFRFN(LOIN >60 mL/min/1.7 C) 3m2 GFR-NON Abnormal AM. 58 LAB GFRAA(LOIN >60 mL/min/1.7 C) 3m2 GFR- AM. 70 Result Comment: CALCULATIONS OF ESTIMATED GFR ARE PERFORMED USING THE MDRD STUDY EQUATION FOR THE IDMS-TRACEABLE CREATININE METHODS. CLIN CHEM 2007;53:766-72 LAB CA(LOINC) 8.6 - 10.6 mg/dL CALCIUM 8.6 Performed By: #### BMP #### [facility] [address] [place] [address] DAILY PROGRESS Observed: 12/02/2018 Status: COMPLETED Source: [facility] NOTE-PALLIATIVE CARE 8:28 AM HOSPITALS REPOSITORY Consult Type: subsequent visit/care Service: Palliative Care Subjective Data: TRISH HUNT is a 73 year old Female who is Hospital Day # 21 and POD #9 for T10-11 transpedicular decompression of tumor, T7-L2 instrumented fusion. This morning, the patient states that she is feeling well. Her pain continues to decrease and she states that when she has to get up to walk to the bathroom, her pain typically only rises to a 4-5/10. When she returns to a resting position, her pain is a 0/10. She was able to get up several times to use the restroom yesterday with assistance from the nurse, but states that she still needs a walker as she feels weak since coming to the hospital. Her last BM was yesterday and she denies any abdominal pain, nausea, vomiting, or dysuria. She does admit to a wet cough, but notes that she has not produced any sputum although she feels like she needs to. She otherwise denies any fevers/chills, SOB, or chest pain. Objective Data: Objective Information: T PRBPSpO2 [id number]% Date/Time12/02 4:5512/02 4: 4: 4: 4:55 Range(36.2C - 36.4C ) (70 - 77 ) (18 - 19 ) (107 - 116 )/ (64 - 70 ) (93% - 97% ) Pain reported at 12/02 5:02: 5 Physical Exam: Constitutional: Well developed, awake/alert/oriented x3, no distress, alert and cooperative Eyes: PERRL, EOMI, clear sclera ENMT: mucous membranes moist, no apparent injury, no lesions seen Head/Neck: Neck supple, no apparent injury, thyroid without mass or tenderness, trachea midline Respiratory/Thorax: Patent airways, CTAB, normal breath sounds with good chest expansion, thorax symmetric Cardiovascular: Regular rate and rhythm, no murmurs, 2+ equal pulses of the extremities, normal S1 and S2 Gastrointestinal: Obese, non-distended, soft, non-tender, no rebound tenderness or guarding, +BS Musculoskeletal: ROM intact, no joint swelling, 5/5 strength Extremities: Normal extremities, reduced BLE and feet edema, no wounds or cyanosis Psychological: Appropriate mood and behavior Skin: Warm and dry, no lesions, no rashes Medication: Medications: Continuous Medications No continuous medications are active Scheduled Medications 1. Acetaminophen: 975 mg Oral <User Schedule> 2. Conjugated Estrogens 0.625mg/ gram Va.25 applicatorful Vaginal At Bedtime 3. Levothyroxine: 50 microgram(s) Oral Daily 4. Lidocaine 5% TransDermal: 1 patch TransDermal Every 24 Hours 5. Oxybutynin: 5 mg Oral 4 Times a Day 6. oxyCODONE Immediate Release: 5 mg Oral Every 4 Hours 7. Pantoprazole: 40 mg Oral Daily 8. Piperacillin - Tazobactam 3.375 gram/Iso-osmotic 50 mL Premix IVPB: 50 mL IntraVenous Piggyback Every 6 Hours 9. Polyethylene Glycol: 17 gram(s) Oral 2 Times a Day 10. Simvastatin: 20 mg Oral At Bedtime 11. Sodium Chloride 0.9% Injectable Flush: 10 mL IntraVenous Flush Every 12 Hours 12. Vancomycin IV Piggy Back: 1.25 gram(s) IntraVenous Piggyback Every 12 Hours PRN Medications 1. Albuterol 2.5 mg/ 3 mL Nebulizer Soln: 3 mL Inhalation Every 2 Hours 2. Bisacodyl Rectal: 10 mg Rectal Daily 3. Cyclobenzaprine: 10 mg Oral 3 Times a Day 4. Heparin Flush 10 unit/ mL PF Injectable: 5 mL IntraVenous Flush Every 12 Hours 5. Heparin Flush 10 unit/ mL PF Injectable PRN: 5 mL IntraVenous Flush According to Flush Policy 6. HYDROmorphone Injectable: 0.2 mg IntraVenous Push Every 4 Hours 7. Loratadine: 10 mg Oral Daily 8. Naproxen: 500 mg Oral 2 Times a Day 9. Ondansetron Injectable: 4 mg IntraVenous Push Every 6 Hours 10. oxyCODONE Immediate Release: 5 mg Oral Every 4 Hours 11. Sodium Chloride 0.9% Injectable Flush PRN: 10 mL IntraVenous Flush According to Flush Policy 12. Sodium Chloride 0.9% Injectable Flush PRN: 20 mL IntraVenous Flush According to Flush Policy Assessment and Plan: Assessment: Trish Hunt is a 73 yo F with a PMH of HTN, DMII, morbid obesity, hypothyroidism, DLD, and lung cancer with metastases to the spine s/p neurosurgical decompression + fixation of the T-L spine on 11/23/18. Palliative care was consulted for pain management. Recommendations: - patient tolerating PO pain regimen, with resolution of pain symptoms (most common with ambulation) upon PO dose - continue oxycodone 5 mg q4h scheduled + oxycodone 5 mg q4h PRN - patient required 45 OME on 12/01; requirement continues to trend down - can give IV dilaudid 0.2 mg q4h PRN for breakthrough pain; not required on 11/30 - 12/01 - continue to work with PT and encourage ambulation - continue bowel regimen with miralax every day Thank you for allowing us to participate in the care of this patient. The Palliative Care Team will continue to follow as needed. Please contact the team with any questions or concerns at [phone]. Signature/Cosignature/Attestation: Attending AttestationI saw and evaluated the patient. I personally obtained the almonte and critical portions of the history and physical exam or was physically present for almonte and critical portions performed by the resident/fellow. I reviewed the resident/fellows documentation and discussed the patient with the resident/fellow. I agree with the resident/fellows medical decision making as documented in the resident/fellows note with the exception/addition of the following: I personally evaluated the patient (as noted in the above attestation) on 02-Dec-2018 Comments/ Additional Findings patient is doing well with minimal PRN utilization. oxycodone scheduled was changed to q6 hours by primary team for unclear reasons. Patient provided education that PO oxycodone is not expected to last 6 hours, so if her pain comes back she should utilize available PRNs. Patient did well overnight and refused a dose of scheduled medication as she was not having pain; pain continues to be an issue with movement. Consider changing oxycodone to oxycodone 5mg four times per day as q4 hours while awake and not q6. Call with questions, [phone]. Electronic Signatures: Annette Keller) (Signed 02-Dec-2018 14:27) Authored: Service, Signature/Cosignature/Attestation Co-Signer: Subjective Data, Objective Data, Assessment and Plan, Signature/Cosignature/Attestation Yvonne Pacheco (Resident)) (Signed 02-Dec-2018 09:53) Authored: Service, Subjective Data, Objective Data, Assessment and Plan, Signature/Cosignature/Attestation Last Updated: 02-Dec-2018 14:27 by Annette Keller) DAILY PROGRESS Observed: 12/01/2018 Status: COMPLETED Source: [facility] 4:23 PM HOSPITALS REPOSITORY Service: Radiation Oncology Subjective Data: TRISH HUNT is a 73 year old Female and today is Hospital Day # 20 and POD #8 for T10-11 transpedicular decompression of tumor, T7-L2 instrumented fusion. Ms. Hunt expressed interest in receiving radiation treatment in [place] due to proximity to family. Objective Data: Objective Information: T PRBPSpO2 [id number]/6496% Date/Time12/01 14: 14: 14: 14: 14:00 Range(36.2C - 36.4C ) (70 - 93 ) (18 - 18 ) (107 - 132 )/ (64 - 72 ) (93% - 96% ) Pain reported at 11/30 18:24: 3 Pain reported at 12/01 15:19: 4 Physical Exam: Constitutional: 73 year old female sitting in bed, conversant, in no apparent distress Eyes: pupils PERRL, EOMI, sclerae anicteric ENMT: oropharynx clear, oral mucosa moist, no lesions noted Head/Neck: no cervical or supraclavicular adenopathy Respiratory/Thorax: lung sounds CTAB all delong posteriorly, breathing is regular and unlabored, on room air Cardiovascular: rhythm and rate regular, normal S1 and S2, no murmur Musculoskeletal: well healed incision with brittni upper-mid back Extremities: mild pitting edema of both lower legs, right mildly greater than left; mild edema of both hands Neurological: cranial nerves 2-12 grossly intact, oriented x3, speech fluent, cognition intact Assessment and Plan: Assessment: Ms. Hunt is a 73 year old female with a newly diagnosed right lung adenocarcinoma and T10 mass with impending cord compression status post decompression and fusion on 12/03/18. LOAD DROPPER tumor board recommends post operative radiation therapy. Ms. Hunt waiting SNF placement. 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 Patient and family considering other sites. She and her granddaughter expressed interest in receiving treatment in [place] due to proximity to family. Ms. Hunt already has an appointment with medical oncology in [place], Dr. Yarbrough on 12/09/18 at 3 PM. She was set up to see Dr. Brianne Faulkner, radiation oncologist, 12/10/18 at 9:30 AM. Discharge profile updated. Ms. Holt's questions were answered, they were provided with radiation oncology's office number and were encouraged to call with questions. Please feel free to page [phone] team pager [phone] with questions. Electronic Signatures: Leandra Rosario (ALIGNMENT SPECIALIST-GRIEVANCE MANAGER) (Signed 01-Dec-2018 17:07) Authored: Service, Subjective Data, Objective Data, Assessment and Plan, Signature/Cosignature/Attestation Last Updated: 01-Dec-2018 17:07 by Leandra Rosario (ALIGNMENT SPECIALIST-GRIEVANCE MANAGER) TH CHEST 2 VIEW PA Observed: 12/01/2018 Status: F Source: [facility] 3:46 PM HOSPITALS REPOSITORY Patient Name: TRISH HUNT STUDY: CHEST 2 VIEW PA AND LAT; 12/01/2018 3:46 pm INDICATION: Signs/Symptoms: cough with leukocytosis. COMPARISON: Chest radiograph 11/22/2018 ACCESSION NUMBER(S): [id number] ORDERING CLINICIAN: NESSA CARLOS FINDINGS: Patient is status post thoracolumbar fusion with incompletely the visualized pedicle screws with interlocking rods. No gross evidence of hardware loosening or perihardware fracture. CARDIOMEDIASTINAL SILHOUETTE: Cardiomediastinal silhouette is normal in size and configuration. LUNGS: There is improved aeration of the right lung base with interval improvement in right pleural effusion. Focal airspace opacity is now seen adjacent to right lower heart border, which may represent right middle lobe pneumonic consolidation there is mild atelectasis at the left lung base. There is no sizable pneumothorax. BONES: Postoperative changes, as above. IMPRESSION: 1. Interval improvement in right basilar pleural effusion. A focal airspace opacity is now seen adjacent right heart border, which may represent right middle lobe atelectasis/pneumonic consolidation. 2. Status post thoracolumbar fusion. I personally reviewed the images/study and I agree with the findings as stated. [facility] [place]. Electronically signed by: LIO CANNON MD DAILY PROGRESS Observed: 12/01/2018 Status: COMPLETED Source: [facility] 3:33 PM HOSPITALS REPOSITORY Service: Medicine Subjective Data: TRISH HUNT is a 73 year old Female who is Hospital Day # 20 and POD #8 for T10-11 transpedicular decompression of tumor, T7-L2 instrumented fusion. I slept pretty good. I have this cough now. It is different than the other cough and goes right through my back.. Overnight Events: Patient had an uneventful night. Additional Information: Reports new cough of different character than cough of last week that had resolved. Reports satisfaction with urinary frequency control with Oxybutynin. 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 (11/2018 EBUS) - Thoracic Spinal Metastasis w/ Cord Compression * T10-T11 Decompression w/ T7-L2 Fusion w/ Allograft 11/2018 - Hypothyroidism - GERD - Peripheral Neuropathy - Morbid Obesity - Overactive Bladder * Spinal Cord Stimulator Implantation 08/2018 (removed 11/02) - Tonsillectomy - Hemorrhoidectomy - Cholecystectomy - L4-L5 Decompression 1999 T PRBPSpO2 [id number]/6496% Date/Time12/01 14: 14: 14: 14: 14:00 Range(36.2C - 36.4C ) (70 - 93 ) (18 - 18 ) (107 - 132 )/ (64 - 72 ) (93% - 96% ) Pain reported at 11/30 18:24: 3 Pain reported at 12/01 15:19: 4 Weights 12/01 7:00: Weight in kg (Weight (kg)) 118.2 12/01 7:00: Weight in lbs ((lbs)) 260.6 Physical Exam: Constitutional: Alert and oriented lying in bed in a.m. and sitting in chair in p.m with uncomfortable appearance. Eyes: Sclera white ENMT: Mucous membranes moist Head/Neck: Normocephalic Respiratory/Thorax: Respirations easy and unlabored with left sided rhochi and right basilar rales Cardiovascular: Heart with regular rhythm, S1, S2, no appreciable murmur Gastrointestinal: Abdomen obese, non-distended, active bowel sounds, soft, non-tender Musculoskeletal: ROM intact, no joint swelling, normal strength. Extremities: No cyanosis or wounds. 1+ pitting edema of lower legs and feet bilaterally. Right Midline IV intact Neurological: Alert and oriented x3, intact senses and motor responses with 5/5 strength of arms and legs bilaterally Psychological: Appropriate mood and behavior Skin: No rashes. Long thoracic surgical incision dry and intact, well approximated with surgical brittni present. Steri strip over hemovac sites. Medication: Medications: Scheduled Medications 1. Acetaminophen: 975 mg Oral <User Schedule> 2. Conjugated Estrogens 0.625mg/ gram Va.25 applicatorful Vaginal At Bedtime 3. Levothyroxine: 50 microgram(s) Oral Daily 4. Lidocaine 5% TransDermal: 1 patch TransDermal Every 24 Hours 5. Oxybutynin: 5 mg Oral 4 Times a Day 6. oxyCODONE Immediate Release: 5 mg Oral Every 4 Hours 7. Pantoprazole: 40 mg Oral Daily 8. Piperacillin - Tazobactam 3.375 gram/Iso-osmotic 50 mL Premix IVPB: 50 mL IntraVenous Piggyback Every 6 Hours 9. Polyethylene Glycol: 17 gram(s) Oral 2 Times a Day 10. Simvastatin: 20 mg Oral At Bedtime 11. Sodium Chloride 0.9% Injectable Flush: 10 mL IntraVenous Flush Every 12 Hours PRN Medications 1. Albuterol 2.5 mg/ 3 mL Nebulizer Soln: 3 mL Inhalation Every 2 Hours 2. Bisacodyl Rectal: 10 mg Rectal Daily 3. Cyclobenzaprine: 10 mg Oral 3 Times a Day 4. Heparin Flush 10 unit/ mL PF Injectable: 5 mL IntraVenous Flush Every 12 Hours 5. Heparin Flush 10 unit/ mL PF Injectable PRN: 5 mL IntraVenous Flush According to Flush Policy 6. HYDROmorphone Injectable: 0.2 mg IntraVenous Push Every 4 Hours 7. Loratadine: 10 mg Oral Daily 8. Naproxen: 500 mg Oral 2 Times a Day 9. Ondansetron Injectable: 4 mg IntraVenous Push Every 6 Hours 10. oxyCODONE Immediate Release: 5 mg Oral Every 4 Hours 11. Sodium Chloride 0.9% Injectable Flush PRN: 10 mL IntraVenous Flush According to Flush Policy 12. Sodium Chloride 0.9% Injectable Flush PRN: 20 mL IntraVenous Flush According to Flush Policy Recent Lab Results: Results: I have reviewed these laboratory results: Complete Blood Count Trending View [id number] 05:05:00 30-Nov-2018 05:54:00 White Blood Cell Count11.1 13.3 H Nucleated Erythrocyte Count0.0 0.0 Red Blood Cell Count2.66 L 2.84 L HGB8.0 L 8.6 L HCT26.8 L 27.5 L HDB285 H 97 MCHC29.9 L 31.3 L [id number] 341 RDW-CV14.3 14.3 Urinalysis 30-Nov-2018 10:00:00 ResultValue Color, Urine YELLOW Reference Range: STRAW,YELLOW Appearance, Urine HAZY Specific [place], Urine 1.018 pH, Urine 5.0 Protein, Urine 100 (2+) A Glucose, Urine NEGATIVE Blood, Urine SMALL (1+) A Ketones, Urine NEGATIVE Bilirubin, Urine NEGATIVE Urobilinogen, Urine 4.0 H Nitrite, Urine NEGATIVE Leukocyte Esterase, Urine MODERATE (2+) A Urinalysis, Microscopic 30-Nov-2018 10:00:00 ResultValue White Cells >182 A WBC Clumps MANY Red Blood Cells 14 A Culture, Urine 30-Nov-2018 10:00:00 ResultValue Organism Gram-negative bacillus >100,000 CFU/ML IDENTIFICATION AND/OR ANTIBIOTIC SUSCEPTIBILITY IN PROGRESS. A 11/23/18 FINAL DIAGNOSIS SPINE, THORACIC, EXCISION: --METASTATIC NON-SMALL CELL CARCINOMA CONSISTENT WITH ADENOCARCINOMA INVOLVING SOFT TISSUE AND BONE. SEE NOTE Note: Findings are consistent with previous ([id number]) Radiology Results: Results: Xray Chest 2 View PA + Lateral [Dec 01 2018 - final] Impression: 1. Interval improvement in right basilar pleural effusion. A focal airspace opacity is now seen adjacent right heart border, which may represent right middle lobe atelectasis/pneumonic consolidation. 2. Status post thoracolumbar fusion. Assessment and Plan: Assessment: Trish Hunt is a 73 year old female former smoker w/ PMHx significant for HTN, Impaired Fasting Glucose, Hyperlipidemia, Peripheral Neuropathy, Hypothyroidism, GERD, Morbid Obesity and Recent Spinal Cord Stimulator Implant who is transferred to [facility] 11/12/18 from [facility] after presenting with intractable progressive back pain with SOB and found on imaging to have a lung mass with adenopathy and suspected spinal metastasis which has now been proven to be a Lung Adenocarcinoma and she underwent Surgical Decompression of her Spinal Metastasis PLAN: In Shared Visit with Dr. Cheng Bethea 1) STAGE IV METASTATIC LUNG ADENOCARCINOMA: Former smoker. Reported SOB and chest pain with deep breath at [place] ER presentation 11/11/18. A CT of the Chest showed Occlusion of the right middle bronchus with pleural effusion with suspected spinal metastasis. A diagnostic Right Thoracentesis via U/S was obtained 11/12/18 for 140 ml of fluid with fluid cytology resulting negative. MRI of the brain 11/14/18 without lesions. Pulmonology consulted and a Bronchoscopy w/ EBUS 11/15/19 with sampling of right hilar mass and subcarinal lymph node which were both positive for adenocarcinoma. Lymph node FNA Pathology showed Positive PD-L1 Expression as well. Oncology and Radiation Oncology were consulted with plan to follow up following surgical healing from thoracic metastatic decompression and fusion patient desires to do this at [place] location, although this is a F Facility - await Oncology plans to follow up with Oncology and Radiation Oncology at [place] 2) T10 PATHOLOGIC METASTATIC FRACTURE w/ CORD COMPRESSION: Presented to [facility] 11/[facility]/18 with intractable progressive back pain radiating around waist in band of 2-3 weeks accompanied by SOB. Due to the pain she had the Spinal Cord Stimulator Implanted in August removed on 10/25/18 without improvement of pain. She has prior disc surgery L4-L5 several years back and has been asymptomatic from it. She does have chronic urinary urge incontinence which has come back after her spinal stimulator was recently removed. A CT Chest, Abdomen and Pelvis at [place] showed a suspected Pathologic fracture of the T10 vertebral body with canal stenosis as well as additional vertebral lesions at T8, T9, and T11 suspicious for additional metastases. An MRI of the T spine was obtained and showed the lesion was not compressing the spine but was however in close proximity to the cord, and therefore she was given Decadron with request for transfer to [facility] for Neurosurgery evaluation. Neurosurgery consulted. CT Thoracic and Lumbar Spine as well as MRI of entire spine done and on 11/23/18. Significant Pain was an issue and Palliative care consulted and Dexamethasone as well as a dose of Pamidronate given. She underwent a Thoracic Decompression and Fusion with back pain much improved. Post-operative thoracic x-ray done 11/26/18. Hemovacs fell out. Post-op MRI of the Spine under Anesthesia 11/26/18 reviewed by Neurosurgery. 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 Presumed metastasis r/t # 1. Initially on IV DETONATOR ASSEMBLER of Hydromorphone, but now transitioned to oral Oxycodone scheduled with PRN breakthrough with pain overall improving. [place] Toradol helped back pain. - discontinue added Toradol 15 mg IV every 4 hours PRN - start Naproxen 500 mg by mouth twice a day PRN breakthrough pain - continue Oxycodone 5 mg by mouth every 4 hours scheduled for now - consider change to every 6 hours scheduled - Oxycodone 5 mg every 4 hours PRN breakthrough pain. - continue Acetaminophen 975 mg by mouth tid - Flexeril PRN - follow up with Dr. Huber Tamayo (Neurosurgery) 15-Dec-2018 14:00 3) HCAP: Developed a leukocytosis of 13k yesterday with new moist cough today and new right sided rales on exam with right middle lobe consolidation on CXR. WBC decreased to 11k today - continue Zosyn 3.375 gm IV every 6 hours - add Vancomycin 1.25 gm IV every 12 hours - check CBC in a.m. - continue incentive spirometer 4) ENTERIC BACILLI UTI: Developed a leukocytosis of 13k yesterday with urine reportedly cloudy and now with > 100k Enteric Bacilli on culture - continue IV Zosyn 3.375 gm IV every 6 hours - await culture ID and sensitivities 5) LEFT HIP PAIN: Developed 11/27/18 with weight bearing. x-ray 11/28/18 c/w OA, bilateral hips, but no fracture or dislocation. - continue pain meds as per # 2 6) ACUTE BLOOD LOSS ANEMIA: Post-operative. H&H 14 & 46 at admit, decreased to 8 & 25 post-op 11/24/17 and then stable at H&H 10 & 29 - post a unit of blood post-operative. H&H today now 8 & 27 - was 9 & 28 yesterday - check CBC in a.m. 7) BILATERAL LEG EDEMA: edema improved overall with fluid drainage of right lower leg from pinhole lesion resolved. - JHONY wraps to legs PRN comfort 8) URGE INCONTINENCE: Has been a big issue for patient in past with Oxybutynin initially helping, but then failed and failed multiple other agents resulting in successful spinal cord stimulator implant in August, which was removed in October due to back pain which unfortunately turned out to be back metastasis of CA. [place] - continue Oxybutynin 5 mg four times a day - Purewick PRN 8) IMPAIRED FASTING GLUCOSE: Denies diagnosis of Diabetes. States was told had elevated blood glucose 20 years ago with Metformin initiated as -preventive. 07/2018 Hgb A1C normal. Blood glucose 98 on noon. labs despite Decadron. I suspect with her recent weight loss, this may no longer be needed - continue to hold home Metformin ER - check fasting blood glucose in a.m. with labs 9) HYPOTHYROIDISM: TSH 0.86 - continue home Levothyroxine 50 mcg daily 10) OBESITY: BMI 43 11) CODE STATUS: Re-Discussed with patient 11/25/18. She continues to desire full interventions at arrest, but would not desire prolonged life support - Full code - Palliative Care informed of patient wishes 12) DVT PROPHYLAXIS: - continue Enoxaparin 40 mg subcutaneous twice a day - sequential compression devices. 13) DISCHARGE DISPOSITION: Lives with . PT recommends Skilled Care, which patient is agreeable to closer to home in [place]. Social work consulted. Family at bedside and supportive PCP: Dr. Harjinder Braswell [phone] Urology: Dr. Earnest Herrera Pharmacy: [facility] ([place]) [phone] DME: Nebulizer Insurer: [employer] Medicare Family: / POA Healthcare - Robbie Hunt [phone] Dtr. / 1st Alt. POA HC - Annita Sin [phone] / [phone] Dtr. / 2nd Alt. POA - Dionne Read [phone] Follow Up: Dr. Huber Tamayo (Neurosurgery) 15-Dec-2018 14:00 [facility] [address] [facility] Signature/Cosignature/Attestation: Attending Only - Shared Visit with Advanced Practice ProviderThis is a shared visit. I have reviewed the Advanced Practice Providers encounter note, approve the Advanced Practice Providers documentation, and provide the following additional information from my personal encounter. Comments/ Additional Findings pain overall appears to be steadily improving. she does note a new moist cough without significant Shortness of Breath. denies episodes of choking or coughing while eating. urinalysis and culture positive with improvement in leukocytosis after starting zosyn. chest x-ray performed with possible rml infiltrate. check sputum culture as well. will continue to monitor and give guaifenesin as needed. will add vancomycin if worsens. transitioning from iv toradol to naprosyn for further bone pain in addition to acetaminophen and oxycodone. Electronic Signatures: Cheng Bethea) (Signed 01-Dec-2018 16:41) Authored: Signature/Cosignature/Attestation Nessa Carlos (ALIGNMENT SPECIALIST-GRIEVANCE MANAGER) (Signed 01-Dec-2018 21:57) Authored: Service, Subjective Data, Objective Data, Assessment and Plan Last Updated: 01-Dec-2018 21:57 by Nessa Carlos (ALIGNMENT SPECIALIST-GRIEVANCE MANAGER) DAILY PROGRESS Observed: 12/01/2018 Status: COMPLETED Source: [facility]PALLIATIVE CARE 10:46 AM HOSPITALS REPOSITORY Consult Type: subsequent visit/care Service: Palliative Care Subjective Data: TRISH HUNT is a 73 year old Female who is Hospital Day # 20 and POD #8 for T10-11 transpedicular decompression of tumor, T7-L2 instrumented fusion. This morning, the patient states that she is doing well. She was able to get up and out of bed 5 times yesterday, once working with PT when she walked into the hallway. She states that when she gets out of bed, her pain increases to a 5-6/10, but when she is resting in bed, it is 0/10. She admits that the oxycodone completely wipes out my pain, although she did require more frequent dosing yesterday when she was getting up. She denies any chest pain, SOB, fevers/chills, abdominal pain, or dysuria and states that her appetite has been somewhat better. She still feels that she will benefit from further PT and is currently requiring the walker with ambulation. Objective Data: Objective Information: T PRBPSpO2 [id number]/6694% Date/Time12/01 5: 5: 5: 5: 5:20 Range(36.2C - 37.2C ) (83 - 93 ) (18 - 18 ) (108 - 132 )/ (66 - 72 ) (93% - 95% ) Highest temp of 37.2 C was recorded at 11/30 14:03 Pain reported at 11/30 18:24: 3 Pain reported at 12/01 0:52: 3 Physical Exam: Constitutional: Well developed, awake/alert/oriented x3, no distress, alert and cooperative Eyes: PERRL, EOMI, clear sclera ENMT: mucous membranes moist, no apparent injury, no lesions seen Head/Neck: Neck supple, no apparent injury, thyroid without mass or tenderness, trachea midline Respiratory/Thorax: Patent airways, CTAB, normal breath sounds with good chest expansion, thorax symmetric Cardiovascular: Regular rate and rhythm, no murmurs, 2+ equal pulses of the extremities, normal S1 and S2 Gastrointestinal: Obese, non-distended, soft, non-tender, no rebound tenderness or guarding, +BS Musculoskeletal: ROM intact, no joint swelling, 5/5 strength Extremities: Normal extremities, +1 BLE edema, no wounds or cyanosis Psychological: Appropriate mood and behavior Skin: Warm and dry, no lesions, no rashes Medication: Medications: Continuous Medications No continuous medications are active Scheduled Medications 1. Acetaminophen: 975 mg Oral <User Schedule> 2. Conjugated Estrogens 0.625mg/ gram Va.25 applicatorful Vaginal At Bedtime 3. Levothyroxine: 50 microgram(s) Oral Daily 4. Lidocaine 5% TransDermal: 1 patch TransDermal Every 24 Hours 5. Oxybutynin: 5 mg Oral 4 Times a Day 6. Pantoprazole: 40 mg Oral Daily 7. Piperacillin - Tazobactam 3.375 gram/Iso-osmotic 50 mL Premix IVPB: 50 mL IntraVenous Piggyback Every 6 Hours 8. Polyethylene Glycol: 17 gram(s) Oral 2 Times a Day 9. Simvastatin: 20 mg Oral At Bedtime 10. Sodium Chloride 0.9% Injectable Flush: 10 mL IntraVenous Flush Every 12 Hours PRN Medications 1. Albuterol 2.5 mg/ 3 mL Nebulizer Soln: 3 mL Inhalation Every 2 Hours 2. Bisacodyl Rectal: 10 mg Rectal Daily 3. Cyclobenzaprine: 10 mg Oral 3 Times a Day 4. Heparin Flush 10 unit/ mL PF Injectable: 5 mL IntraVenous Flush Every 12 Hours 5. Heparin Flush 10 unit/ mL PF Injectable PRN: 5 mL IntraVenous Flush According to Flush Policy 6. HYDROmorphone Injectable: 0.2 mg IntraVenous Push Every 4 Hours 7. Ketorolac Injectable: 15 mg IntraVenous Push Every 4 Hours 8. Loratadine: 10 mg Oral Daily 9. Naloxone Injectable: 0.2 mg IntraVenous Push Once 10. Ondansetron Injectable: 4 mg IntraVenous Push Every 6 Hours 11. oxyCODONE Immediate Release: 5 mg Oral Every 4 Hours 12. oxyCODONE Immediate Release: 5 mg Oral Every 4 Hours 13. Sodium Chloride 0.9% Injectable Flush PRN: 10 mL IntraVenous Flush According to Flush Policy 14. Sodium Chloride 0.9% Injectable Flush PRN: 20 mL IntraVenous Flush According to Flush Policy Assessment and Plan: Assessment: Trish Hunt is a 73 yo F with a PMH of HTN, DMII, morbid obesity, hypothyroidism, DLD, and lung cancer with metastases to the spine s/p neurosurgical decompression + fixation of the T-L spine on 11/23/18. Palliative care was consulted for pain management. Recommendations: - patient tolerated PO pain regimen, with resolution of pain symptoms (most common with ambulation) upon PO dose - continue oxycodone 5 mg q4h scheduled + oxycodone 5 mg q4h PRN - patient required 67.5 OME on 11/30 - can give IV dilaudid 0.2 mg q4h PRN for breakthrough pain; not required on 11/30 - continue to work with PT and encourage ambulation - continue bowel regimen with miralax every day Thank you for allowing us to participate in the care of this patient. The Palliative Care Team will continue to follow as needed. Please contact the team with any questions or concerns at [phone]. Signature/Cosignature/Attestation: Attending AttestationI saw and evaluated the patient. I personally obtained the almonte and critical portions of the history and physical exam or was physically present for almonte and critical portions performed by the resident/fellow. I reviewed the resident/fellows documentation and discussed the patient with the resident/fellow. I agree with the resident/fellows medical decision making as documented in the residents note. I personally evaluated the patient (as noted in the above attestation) on 01-Dec-2018 Electronic Signatures: Annette Keller) (Signed 01-Dec-2018 16:43) Authored: Service, Signature/Cosignature/Attestation Co-Signer: Service, Subjective Data, Objective Data, Assessment and Plan, Signature/Cosignature/Attestation vYonne Pacheco (Resident)) (Signed 01-Dec-2018 10:50) Authored: Service, Subjective Data, Objective Data, Assessment and Plan, Signature/Cosignature/Attestation Last Updated: 01-Dec-2018 16:43 by Annette Keller) CBC Collected: 12/01/2018 Status: F Source: [place] 5:05 AM HOSPITALS REPOSITORY TYPE CODE TESTS RESULT OUT OF REFERENCE UNITS RANGE LAB WBCR(LOINC 4.4 - 11.3 x10E9/L ) WBC 11.1 LAB NRBC(LOINC 0.0-0.0 /100 WBC ) NUCLEATED RBC 0.0 LAB RBCCT(LOIN 4.00 - 5.20 x10E12/L C) Low RBC 2.66 LAB HGB(LOINC) 12.0 - 16.0 g/dL Low HGB 8.0 LAB HCT(LOINC) 36.0 - 46.0 % Low HCT 26.8 LAB MCV(LOINC) 80 - 100 fL MCV High 101 LAB MCHC2(LOIN 32.0 - 36.0 g/dL C) Low MCHC 29.9 LAB PLTCT(LOIN 150 - 450 x10E9/L C) PLT 371 LAB RDWCV(LOIN 11.5 - 14.5 % C) RDW-CV 14.3 Performed By: #### CBC #### [facility] [address] [place] [address] DAILY PROGRESS Observed: 11/30/2018 Status: COMPLETED Source: [facility] NOTE-PALLIATIVE CARE 1:32 PM HOSPITALS REPOSITORY Consult Type: subsequent visit/care Service: Palliative Care Subjective Data: TRISH HUNT is a 73 year old Female who is Hospital Day # 19 and POD #7 for T10-11 transpedicular decompression of tumor, T7-L2 instrumented fusion. Overnight, the patient did well managing her pain. She states that yesterday evening, she did have a period where she was feeling very cold, and this exacerbated her back pain and required a dose of IV diluadid. She does admit to some L-sided hip pain and occasional twinges of pain in her back, but as long as she remains still, the pain resolves. She was able to get up to walk to the bathroom yesterday, but states that she is nervous to walk the halls, as weight-bearing causes her pain to worsen. She otherwise denies any nausea, vomiting, SOB, chest pain, or fevers/chills. Her last BM was yesterday and she denies any abdominal pain. Objective Data: Objective Information: T PRBPSpO2 [id number]/6294% Date/Time11/30 5: 5: 5: 5: 5:42 Range(36.5C - 37.5C ) (78 - 92 ) (18 - 18 ) (98 - 121 )/ (62 - 72 ) (93% - 97% ) Highest temp of 37.5 C was recorded at 11/30 2:27 Pain reported at 11/30 12:15: 3 Pain reported at 11/30 11:20: 5 Physical Exam: Constitutional: Well developed, awake/alert/oriented x3, no distress, alert and cooperative Eyes: PERRL, EOMI, clear sclera ENMT: mucous membranes moist, no apparent injury, no lesions seen Head/Neck: Neck supple, no apparent injury, thyroid without mass or tenderness, trachea midline Respiratory/Thorax: Patent airways, CTAB, normal breath sounds with good chest expansion, thorax symmetric Cardiovascular: Regular rate and rhythm, no murmurs, 2+ equal pulses of the extremities, normal S1 and S2 Gastrointestinal: Obese, non-distended, soft, non-tender, no rebound tenderness or guarding, +BS Musculoskeletal: ROM intact, no joint swelling, 5/5 strength Extremities: Normal extremities, +1 BLE edema, no wounds or cyanosis Psychological: Appropriate mood and behavior Skin: Warm and dry, no lesions, no rashes Medication: Medications: Continuous Medications No continuous medications are active Scheduled Medications 1. Acetaminophen: 975 mg Oral <User Schedule> 2. Conjugated Estrogens 0.625mg/ gram Va.25 applicatorful Vaginal At Bedtime 3. Levothyroxine: 50 microgram(s) Oral Daily 4. Lidocaine 5% TransDermal: 1 patch TransDermal Every 24 Hours 5. Oxybutynin: 5 mg Oral 4 Times a Day 6. oxyCODONE Immediate Release: 5 mg Oral Every 4 Hours 7. Pantoprazole: 40 mg Oral Daily 8. Polyethylene Glycol: 17 gram(s) Oral 2 Times a Day 9. Simvastatin: 20 mg Oral At Bedtime 10. Sodium Chloride 0.9% Injectable Flush: 10 mL IntraVenous Flush Every 12 Hours PRN Medications 1. Albuterol 2.5 mg/ 3 mL Nebulizer Soln: 3 mL Inhalation Every 2 Hours 2. Bisacodyl Rectal: 10 mg Rectal Daily 3. Cyclobenzaprine: 10 mg Oral 3 Times a Day 4. Heparin Flush 10 unit/ mL PF Injectable: 5 mL IntraVenous Flush Every 12 Hours 5. Heparin Flush 10 unit/ mL PF Injectable PRN: 5 mL IntraVenous Flush According to Flush Policy 6. HYDROmorphone Injectable: 0.2 mg IntraVenous Push Every 4 Hours 7. Ketorolac Injectable: 15 mg IntraVenous Push Every 4 Hours 8. Loratadine: 10 mg Oral Daily 9. Naloxone Injectable: 0.2 mg IntraVenous Push Once 10. Ondansetron Injectable: 4 mg IntraVenous Push Every 6 Hours 11. oxyCODONE Immediate Release: 5 mg Oral Every 4 Hours 12. Sodium Chloride 0.9% Injectable Flush PRN: 10 mL IntraVenous Flush According to Flush Policy 13. Sodium Chloride 0.9% Injectable Flush PRN: 20 mL IntraVenous Flush According to Flush Policy Assessment and Plan: Assessment: Trish Hunt is a 73 yo F with a PMH of HTN, DMII, morbid obesity, hypothyroidism, DLD, and lung cancer with metastases to the spine s/p neurosurgical decompression + fixation of the T-L spine on 11/23/18. Palliative care was consulted for pain management. Recommendations: - patient tolerated PO pain regimen, however she did not get out of bed yesterday, other than to go to the bathroom, for fear of pain - the patient was encouraged to ambulate and move around as usual to better assess her pain needs prior to discharge to SNF and working with PT - continue oxycodone 5 mg q4h scheduled + oxycodone 5 mg q4h PRN; alternating with scheduled meds (11/29 patient did not use PRN meds due to limited movement throughout day) - can give IV dilaudid 0.2 mg q4h PRN for breakthrough pain; only required once on evening of 11/29 - continue bowel regimen with miralax every day Thank you for allowing us to participate in the care of this patient. The Palliative Care Team will continue to follow as needed. Please contact the team with any questions or concerns at [phone]. Signature/Cosignature/Attestation: Attending AttestationI saw and evaluated the patient. I personally obtained the almonte and critical portions of the history and physical exam or was physically present for almonte and critical portions performed by the resident/fellow. I reviewed the resident/fellows documentation and discussed the patient with the resident/fellow. I agree with the resident/fellows medical decision making as documented in the residents note. I personally evaluated the patient (as noted in the above attestation) on 30-Nov-2018 Electronic Signatures: Annette Keller) (Signed 30-Nov-2018 15:58) Authored: Service, Signature/Cosignature/Attestation Co-Signer: Service, Subjective Data, Objective Data, Assessment and Plan, Signature/Cosignature/Attestation Yvonne Pacheco (Resident)) (Signed 30-Nov-2018 13:38) Authored: Service, Subjective Data, Objective Data, Assessment and Plan, Signature/Cosignature/Attestation Last Updated: 30-Nov-2018 15:58 by Annette Keller) DAILY PROGRESS Observed: 11/30/2018 Status: COMPLETED Source: UNIVERSITY NOTE-MEDICINE 11:58 AM HOSPITALS REPOSITORY Service: Medicine Subjective Data: TRISH HUNT is a 73 year old Female who is Hospital Day # 19 and POD #7 for T10-11 transpedicular decompression of tumor, T7-L2 instrumented fusion. Objective Data: Objective Information: T PRBPSpO2 [id number]/6294% Date/Time11/30 5: 5: 5: 5: 5:42 Range(36.5C - 37.5C ) (78 - 92 ) (18 - 18 ) (98 - 121 )/ (62 - 72 ) (93% - 97% ) Highest temp of 37.5 C was recorded at 11/30 2:27 Pain reported at 11/29 17:17: 0 Pain reported at 11/30 2:17: 5 Physical Exam: Constitutional: A&OX3, pleasant, NAD daughter at the bedside Respiratory/Thorax: CTAB Cardiovascular: RRR Gastrointestinal: obese, nontender, binder in place BSX4 Genitourinary: periwick in place - urine is clear yellow Musculoskeletal: MAEX4 Extremities: 2+ pitting edema in the bilateral lower extremities Neurological: no deficits Psychological: Appropriate mood and behavior Skin: surgical dressing in place - lower back Medication: Medications: Continuous Medications No continuous medications are active Scheduled Medications 1. Acetaminophen: 975 mg Oral <User Schedule> 2. Conjugated Estrogens 0.625mg/ gram Va.25 applicatorful Vaginal At Bedtime 3. Levothyroxine: 50 microgram(s) Oral Daily 4. Lidocaine 5% TransDermal: 1 patch TransDermal Every 24 Hours 5. Oxybutynin: 5 mg Oral 4 Times a Day 6. oxyCODONE Immediate Release: 5 mg Oral Every 4 Hours 7. Pantoprazole: 40 mg Oral Daily 8. Polyethylene Glycol: 17 gram(s) Oral 2 Times a Day 9. Simvastatin: 20 mg Oral At Bedtime 10. Sodium Chloride 0.9% Injectable Flush: 10 mL IntraVenous Flush Every 12 Hours PRN Medications 1. Albuterol 2.5 mg/ 3 mL Nebulizer Soln: 3 mL Inhalation Every 2 Hours 2. Bisacodyl Rectal: 10 mg Rectal Daily 3. Cyclobenzaprine: 10 mg Oral 3 Times a Day 4. Heparin Flush 10 unit/ mL PF Injectable: 5 mL IntraVenous Flush Every 12 Hours 5. Heparin Flush 10 unit/ mL PF Injectable PRN: 5 mL IntraVenous Flush According to Flush Policy 6. HYDROmorphone Injectable: 0.2 mg IntraVenous Push Every 4 Hours 7. Ketorolac Injectable: 15 mg IntraVenous Push Every 4 Hours 8. Loratadine: 10 mg Oral Daily 9. Naloxone Injectable: 0.2 mg IntraVenous Push Once 10. Ondansetron Injectable: 4 mg IntraVenous Push Every 6 Hours 11. oxyCODONE Immediate Release: 5 mg Oral Every 4 Hours 12. Sodium Chloride 0.9% Injectable Flush PRN: 10 mL IntraVenous Flush According to Flush Policy 13. Sodium Chloride 0.9% Injectable Flush PRN: 20 mL IntraVenous Flush According to Flush Policy Recent Lab Results: Results: I have reviewed these laboratory results: Urinalysis 30-Nov-2018 10:00:00 ResultValue Color, Urine YELLOW Reference Range: STRAW,YELLOW Appearance, Urine HAZY Specific [place], Urine 1.018 pH, Urine 5.0 Protein, Urine 100 (2+) A Glucose, Urine NEGATIVE Blood, Urine SMALL (1+) A Ketones, Urine NEGATIVE Bilirubin, Urine NEGATIVE Urobilinogen, Urine 4.0 H Nitrite, Urine NEGATIVE Leukocyte Esterase, Urine MODERATE (2+) A Urinalysis, Microscopic 30-Nov-2018 10:00:00 ResultValue White Cells >182 A WBC Clumps MANY Red Blood Cells 14 A Complete Blood Count 30-Nov-2018 05:54:00 ResultValue White Blood Cell Count 13.3 H Nucleated Erythrocyte Count 0.0 Red Blood Cell Count 2.84 L HGB 8.6 L HCT 27.5 L MCV 97 MCHC 31.3 L PLT 341 RDW-CV 14.3 Renal Function Panel 30-Nov-2018 05:54:00 ResultValue Glucose, Serum 122 H NA 140 K 3.9 CL 107 Bicarbonate, Serum 25 Anion Gap, Serum 12 BUN 17 CREAT 0.83 GFR-Non >60 GFR- >60 Calcium, Serum 7.7 L Phosphorus, Serum 2.8 ALB 2.7 L Radiology Results: Results: Impression: 1. 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 2. 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 Xray Hip 2 View [Nov 30 2018 10:13AM] Assessment and Plan: Assessment: Trish Hunt is a 73 year old female former smoker w/ PMHx significant for HTN, Impaired Fasting Glucose, Hyperlipidemia, Peripheral Neuropathy, Hypothyroidism, GERD, Morbid Obesity and Recent Spinal Cord Stimulator Implant who is transferred to [facility] 11/12/18 from [facility] after presenting with intractable progressive back pain with SOB and found on imaging to have a lung mass with adenopathy and suspected spinal metastasis which has now been proven to be a Lung Adenocarcinoma and she underwent Surgical Decompression of her Spinal Lesion. PLAN: In Shared Visit with Dr. Bethea STAGE IV METASTATIC LUNG ADENOCARCINOMA: Former smoker. Reported SOB and chest pain with deep breath at [place] [facility] presentation 11/11/18. A CT of the Chest showed Occlusion of the right middle bronchus with pleural effusion with suspected spinal metastasis. A diagnostic Right Thoracentesis via U/S was obtained 11/12/18 for 140 ml of fluid with fluid cytology resulting negative. MRI of the brain 11/14/18 without lesions. Pulmonology consulted and a Bronchoscopy w/ EBUS 11/15/19 with sampling of right hilar mass and subcarinal lymph node which were both positive for adenocarcinoma. Lymph node FNA Pathology showed Positive PD-L1 Expression as well. Oncology and Radiation Oncology were consulted with plan to follow up following surgical healing from thoracic metastatic decompression and fusion patient desires to do this at [facility] surgical pathology is showing a metastatic non small cell carcinoma consistent with adenocarcinoma involving the soft tissue and bone - schedule follow up with Oncology and Radiation Oncology at [facility] in three weeks, trying to determine where radiation can be arranged main campus is 1 1/2 hours away from home, T10 PATHOLOGIC FRACTURE w/ CORD COMPRESSION: She underwent a Thoracic Decompression and Fusion with back pain much improved. Post- operative thoracic x-ray done 11/26/18. Post-op MRI of the Spine under Anesthesia 11/26/18 reviewed by Neurosurgery. - continue added Toradol 15 mg IV every 4 hours PRN (11/27) - continue oxy 5 mg by mouth q4h scheduled and q4h as needed along with Dilaudid 0.2 mg IVP q4h as needed - continue Acetaminophen 975 mg by mouth tid - Flexeril PRN - follow up with Dr. Huber Tamayo (Neurosurgery) 15-Dec-2018 14:00 LEFT HIP PAIN: Developed yesterday with weight bearing. Persists today. Reports location as lateral hip. 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 - PT/OT encouraged - pain meds as ordered CAUTI had trinidad catheter for surgery this was discontinued and using the periwick device developed a leukocytosis of 13.3 today UA + - urine culture pending - will start zosyn for now pending urine culture results - repeat cbc in am ACUTE BLOOD LOSS ANEMIA: Post-operative. H&H 14 & 46 at admit, decreased to 8 & 25 post-op 11/24/17 recieved 1 unit of blood post o[p and H&H remains stable - check CBC in a.m. BILATERAL LEG EDEMA: With some serous fuid drainage of right lower leg from pinhole lesion. - JHONY wraps to legs PRN comfort URGE INCONTINENCE: Has been a big issue for patient in past with Oxybutynin initially helping, but then failed and failed multiple other agents resulting in successful spinal cord stimulator implant in August, which was removed in October due to back pain which unfortunately turned out to be back metastasis of CA. Trinidad removed yesterday and doing well with Oxybutynin - continue Oxybutynin 5 mg qid IMPAIRED FASTING GLUCOSE: Denies diagnosis of Diabetes. States was told had elevated blood glucose 20 years ago with Metformin initiated as preventive. 07/2018 Hgb A1C normal. BS on panel 122 although in the 0s and 70s the days prior - continue to hold home Metformin ER - check fasting blood glucose in a.m. with labs HYPOTHYROIDISM: TSH 0.86 - continue home Levothyroxine 50 mcg daily OBESITY: BMI 43 CODE STATUS: Re-Discussed with patient 11/25/18. She continues to desire full interventions at arrest, but would not desire prolonged life support - Full code - Palliative Care informed of patient wishes DVT PROPHYLAXIS: - continue Enoxaparin 40 mg subcutaneous twice a day - sequential compression devices. DISCHARGE DISPOSITION: Lives with . PT recommends Skilled Care, which patient is agreeable to closer to home in [place]. Social work consulted. Family at bedside and supportive no beds are available at [facility] at this time family updated on POC Signature/Cosignature/Attestation: Provider/Team Contact Info-Pager [phone] Attending Only - Shared Visit with Advanced Practice ProviderThis is a shared visit. I have reviewed the Advanced Practice Providers encounter note, approve the Advanced Practice Providers documentation, and provide the following additional information from my personal encounter. Comments/ Additional Findings no major events. pain doing well while in bed. labs showed bump in wbc without focal complaints to blame for this. urinalysis very + with recent Trinidad catheter,. starting zosyn and narrow antibiotics per culture results. continue to monitor wbc. will also continue to work on pain control. convert toradol to naprosyn continue oxycodone scheduled and as needed with dilaudid above that. encourage work with Physical Therapy to assess adequacy of pain control. hip imaging without acute findings. Electronic Signatures: Cheng Bethea) (Signed 30-Nov-2018 16:26) Authored: Signature/Cosignature/Attestation Jordan Saunders (ALIGNMENT SPECIALIST-GRIEVANCE MANAGER) (Signed 30-Nov-2018 16:00) Authored: Service, Subjective Data, Objective Data, Assessment and Plan, Signature/Cosignature/Attestation Last Updated: 30-Nov-2018 16:26 by Cheng Bethea) URINALYSIS Collected: 11/30/2018 Status: F Source: UNIVERSITY 10:00 AM HOSPITALS REPOSITORY TYPE CODE TESTS RESULT OUT OF RANGE REFERENCE UNITS LAB COLU(LOIN STRAW,YELLOW C) COLOR YELLOW LAB APPRU(TITO CLEAR NC) APPEARANCE HAZY LAB SPGRU(TITO 1.005 - 1.035 NC) SPECIFIC GRAVITY 1.018 LAB YANCY(LOINC 5.0 - 8.0 ) pH 5.0 LAB PROTU(TITO NEGATIVE mg/dL NC) PROTEIN Abnormal 100 (2+) LAB GLUCU(TITO NEGATIVE mg/dL NC) GLUCOSE NEGATIVE LAB BLDU(LOIN NEGATIVE C) BLOOD Abnormal SMALL (1+) LAB KETU(LOIN NEGATIVE mg/dL C) KETONES NEGATIVE LAB BILIU(TITO NEGATIVE NC) BILIRUBIN NEGATIVE LAB UROU2(TITO 0.0 - 1.9 mg/dL NC) High UROBILINOGEN 4.0 Result Comment: SOME PIGMENTS AND MEDICATIONS MAY CAUSE A FALSE POSITIVE UROBILINOGEN LAB NITRU(LOINC) NEGATIVE NITRITE NEGATIVE LAB LEUKU(LOINC) NEGATIVE Abnormal LEUKOCYTE MODERATE (2+) ESTERASE Performed By: #### UA #### [facility] [address] [place] [address] UA MICROSCOPIC Collected: 11/30/2018 Status: F Source: [place] 10:00 AM HOSPITALS REPOSITORY TYPE CODE TESTS RESULT OUT OF RANGE REFERENCE UNITS LAB WBCUR(LOIN 0-5 /HPF C) Abnormal WBC >182 LAB WBCLU(LOIN /HPF C) WBC MANY CLUMPS LAB RBCUR(LOIN 0-5 /HPF C) Abnormal RBC 14 Performed By: #### UAMIC #### [facility] [address] [place] [address] URINE Observed: 11/30/2018 Status: F Source: [place] CULTURE,BACTERIAL 10:00 AM HOSPITALS REPOSITORY PATIENT: TRISH HUNT LOCATION: [place] [address] BILL#: [id number] : 41 AGE: SEX: F ORDERED BY: JORDAN SAUNDERS SOURCE: URINE COLLECTED: 11/30/18 10:00 ANTIBIOTICS AT [facility].: RECEIVED : 11/30/18 12:38 SITE: Clean Catch/Voided R E S U L T S URINE CULTURE,BACTERIAL FINAL 12/02/18 11:08 ISOLATE1 : Escherichia coli >100,000 CFU/ML ISOLATE2 : Klebsiella oxytoca >100,000 CFU/ML Organism E coli Kl oxytoca Antibiotic BP INTRP BP INTRP Ampicillin S R Ceftriaxone S Cefotaxime S Cefazolin S S Ciprofloxacin S S Nitrofurantoin S S Gentamicin S S Levofloxacin S S Piperc/Tazobact S S Trimeth/Sulfa S S Tetracycline S S Amox/Clavulanate S S=SUSCEPTIBLE I=INTERMEDIATE R=RESISTANT SDD=SUSCEPTIBLE DOSE DEPENDENT NS=NONSUSCEPTIBLE X=REPORTED IN ERROR Performed By: #### URINC #### [facility] [address] [place] [address] CBC Collected: 11/30/2018 Status: F Source: UNIVERSITY 5:54 AM HOSPITALS REPOSITORY TYPE CODE TESTS RESULT OUT OF REFERENCE UNITS RANGE LAB WBCR(LOINC 4.4 - 11.3 x10E9/L ) WBC High 13.3 LAB NRBC(LOINC 0.0-0.0 /100 WBC ) NUCLEATED RBC 0.0 LAB RBCCT(LOIN 4.00 - 5.20 x10E12/L C) Low RBC 2.84 LAB HGB(LOINC) 12.0 - 16.0 g/dL Low HGB 8.6 LAB HCT(LOINC) 36.0 - 46.0 % Low HCT 27.5 LAB MCV(LOINC) 80 - 100 fL MCV 97 LAB MCHC2(LOIN 32.0 - 36.0 g/dL C) Low MCHC 31.3 LAB PLTCT(LOIN 150 - 450 x10E9/L C) PLT 341 LAB RDWCV(LOIN 11.5 - 14.5 % C) RDW-CV 14.3 Performed By: #### CBC #### [facility] [address] [place] [address] RENAL FUNCTION PANEL Collected: 11/30/2018 Status: F Source: [place] 5:54 AM HOSPITALS REPOSITORY TYPE CODE TESTS RESULT OUT OF REFERENCE UNITS RANGE LAB GLU(LOINC) 74 - 99 mg/dL GLUCOSE High 122 LAB SOD(LOINC) 136 - 145 mmol/L SODIUM 140 LAB K(LOINC) 3.5 - 5.3 mmol/L POTASSIUM 3.9 LAB CHLOR(LOIN 98 - 107 mmol/L C) CHLORIDE 107 LAB BIC(LOINC) 21 - 32 mmol/L BICARBONATE 25 LAB ANGAP(LOIN 10 - 20 mmol/L C) ANION GAP 12 LAB UREA(LOINC 6 - 23 mg/dL ) UREA NITROGEN 17 LAB CREA(LOINC 0.50 - 1.05 mg/dL ) CREATININE 0.83 LAB GFRFN(LOIN >60 mL/min/1.7 C) 3m2 GFR-NON AM. >60 LAB GFRAA(LOIN >60 mL/min/1.7 C) 3m2 GFR- AM. >60 Result Comment: CALCULATIONS OF ESTIMATED GFR ARE PERFORMED USING THE MDRD STUDY EQUATION FOR THE IDMS-TRACEABLE CREATININE METHODS. CLIN CHEM 2007;53:766-72 LAB CA(LOINC) 8.6 - 10.6 mg/dL CALCIUM Low 7.7 LAB PHOS(LOINC) 2.5 - 4.9 mg/dL PHOSPHORUS 2.8 Result Comment: The performance characteristics of phosphorus testing in heparinized plasma have been validated by the individual laboratory site where testing is performed. Testing on heparinized plasma is not approved by the FDA; however, such approval is not necessary. LAB ALB(LOINC) 3.4 - 5.0 g/dL Low ALBUMIN 2.7 Performed By: #### RENAL #### [facility] [address] [place] [address] DAILY PROGRESS Observed: 11/29/2018 Status: COMPLETED Source: UNIVERSITY NOTE-PALLIATIVE CARE 4:04 PM HOSPITALS REPOSITORY Consult Type: subsequent visit/care Service: Palliative Care Subjective Data: TRISH HUNT is a 73 year old Female who is Hospital Day # 18 and POD #6 for T10-11 transpedicular decompression of tumor, T7-L2 instrumented fusion. This morning, the patient states that she continues to have back pain. She rates it 5/10, and describes it as midline kinking side pain that radiates to both sides with ebb and flow. When she is at rest, her pain is 0/10, however, she states that as soon as she gets up or moves, her pain jumps to a 10/10. She is able to get up and walk and denies weakness, rather her pain limits her movement. She states that the pain was worse over the past day due to a dose of lasix that kept her going to the bathroom. She otherwise denies any nausea, vomiting, SOB, chest pain, fevers, or chills, and admits to lower extremity swelling. She also states that she has not had much of an appetite over the past couple of days, but her last BM was yesterday. Objective Data: Objective Information: T PRBPSpO2 [id number]/6597% Date/Time11/29 13: 13: 13: 13: 13:47 Range(36.5C - 37.1C ) (73 - 78 ) (18 - 18 ) (98 - 109 )/ (61 - 69 ) (92% - 97% ) Highest temp of 37.1 C was recorded at 11/28 21:33 Pain reported at 11/29 14:15: 3 Pain reported at 11/29 13:15: 5 Physical Exam: Constitutional: Well developed, awake/alert/oriented x3, no distress, alert and cooperative Eyes: PERRL, EOMI, clear sclera ENMT: mucous membranes moist, no apparent injury, no lesions seen Head/Neck: Neck supple, no apparent injury, thyroid without mass or tenderness, trachea midline Respiratory/Thorax: Patent airways, CTAB, normal breath sounds with good chest expansion, thorax symmetric Cardiovascular: Regular rate and rhythm, no murmurs, 2+ equal pulses of the extremities, normal S1 and S2 Gastrointestinal: Obese, non-distended, soft, non-tender, no rebound tenderness or guarding, +BS Musculoskeletal: ROM intact, no joint swelling, 5/5 strength Extremities: Normal extremities, +1 BLE edema, no wounds or cyanosis Psychological: Appropriate mood and behavior Skin: Warm and dry, no lesions, no rashes Medication: Medications: Continuous Medications No continuous medications are active Scheduled Medications 1. Acetaminophen: 975 mg Oral <User Schedule> 2. Conjugated Estrogens 0.625mg/ gram Va.25 applicatorful Vaginal At Bedtime 3. Levothyroxine: 50 microgram(s) Oral Daily 4. Lidocaine 5% TransDermal: 1 patch TransDermal Every 24 Hours 5. Oxybutynin: 5 mg Oral 4 Times a Day 6. Pantoprazole: 40 mg Oral Daily 7. Polyethylene Glycol: 17 gram(s) Oral 2 Times a Day 8. Simvastatin: 20 mg Oral At Bedtime 9. Sodium Chloride 0.9% Injectable Flush: 10 mL IntraVenous Flush Every 12 Hours PRN Medications 1. Albuterol 2.5 mg/ 3 mL Nebulizer Soln: 3 mL Inhalation Every 2 Hours 2. Bisacodyl Rectal: 10 mg Rectal Daily 3. Cyclobenzaprine: 10 mg Oral 3 Times a Day 4. Heparin Flush 10 unit/ mL PF Injectable: 5 mL IntraVenous Flush Every 12 Hours 5. Heparin Flush 10 unit/ mL PF Injectable PRN: 5 mL IntraVenous Flush According to Flush Policy 6. HYDROmorphone Injectable: 0.1 mg IntraVenous Push Every 2 Hours 7. Ketorolac Injectable: 15 mg IntraVenous Push Every 4 Hours 8. Loratadine: 10 mg Oral Daily 9. Naloxone Injectable: 0.2 mg IntraVenous Push Once 10. Ondansetron Injectable: 4 mg IntraVenous Push Every 6 Hours 11. oxyCODONE Immediate Release: 5 mg Oral Every 3 Hours 12. Sodium Chloride 0.9% Injectable Flush PRN: 10 mL IntraVenous Flush According to Flush Policy 13. Sodium Chloride 0.9% Injectable Flush PRN: 20 mL IntraVenous Flush According to Flush Policy Recent Lab Results: Results: I have reviewed her labs. Assessment and Plan: Assessment: Trish Hunt is a 73 yo F with a PMH of HTN, DMII, morbid obesity, hypothyroidism, DLD, and lung cancer with metastases to the spine s/p neurosurgical decompression + fixation of the T-L spine on 11/23/18. Palliative care was consulted for pain management. Recommendations: - transition from DETONATOR ASSEMBLER pump to PO pain regimen - required 2.6 mg IV dilaudid over the past 24 hours --> 35 PO morphine equivalents - start on oxycodone 5 mg q4h scheduled + oxycodone 5 mg q4h PRN; alternating with scheduled meds - can give IV dilaudid 0.2 mg q4h PRN for breakthrough pain - continue bowel regimen with miralax every day Thank you for allowing us to participate in the care of this patient. The Palliative Care Team will continue to follow as needed. Please contact the team with any questions or concerns at [phone]. Signature/Cosignature/Attestation: Attending AttestationI saw and evaluated the patient. I personally obtained the almonte and critical portions of the history and physical exam or was physically present for almonte and critical portions performed by the resident/fellow. I reviewed the resident/fellows documentation and discussed the patient with the resident/fellow. I agree with the resident/fellows medical decision making as documented in the residents note. I personally evaluated the patient (as noted in the above attestation) on 29-Nov-2018 Comments/ Additional Findings DETONATOR ASSEMBLER interrogated at 1006; pt had used hydromorphone IV 2.6 mg with a 20/21 dose/demand ratio. Using this (52mg OME or 35 mg oxycodone- equivalents) for her 24h requirement we made the above conversions to oxycodone which includes a small dose reduction for incomplete cross-tolerance. Will follow. Call with questions, [phone]. Electronic Signatures: Annette Keller) (Signed 29-Nov-2018 19:30) Authored: Service, Signature/Cosignature/Attestation Co-Signer: Service, Subjective Data, Objective Data, Assessment and Plan, Signature/Cosignature/Attestation Yvonne Pacheco (Resident)) (Signed 29-Nov-2018 16:15) Authored: Service, Subjective Data, Objective Data, Assessment and Plan, Signature/Cosignature/Attestation Last Updated: 29-Nov-2018 19:30 by Annette Keller) DAILY PROGRESS Observed: 11/29/2018 Status: COMPLETED Source: [facility]MEDICINE 12:36 PM HOSPITALS REPOSITORY Service: Medicine Subjective Data: TRISH HUNT is a 73 year old Female who is Hospital Day # 18 and POD #6 for T10-11 transpedicular decompression of tumor, T7-L2 instrumented fusion. Objective Data: Objective Information: T PRBPSpO2 [id number]% Date/Time11/29 9: 9: 9: 9: 9:31 Range(36.5C - 37.1C ) (73 - 77 ) (18 - 18 ) (98 - 109 )/ (61 - 69 ) (92% - 97% ) Highest temp of 37.1 C was recorded at 11/28 21:33 Pain reported at 11/28 20:00: 3 Physical Exam: Constitutional: A&OX3, pleasant, NAD daughter at the bedside Respiratory/Thorax: CTAB Cardiovascular: RRR Gastrointestinal: obese, nontender, binder in place BSX4 Genitourinary: periwick in place - urine is clear yellow Musculoskeletal: MAEX4 Extremities: 2+ pitting edema in the bilateral lower extremities Neurological: no deficits Psychological: Appropriate mood and behavior Skin: surgical dressing in place - lower back Medication: Medications: Continuous Medications No continuous medications are active Scheduled Medications 1. Acetaminophen: 975 mg Oral <User Schedule> 2. Conjugated Estrogens 0.625mg/ gram Va.25 applicatorful Vaginal At Bedtime 3. Levothyroxine: 50 microgram(s) Oral Daily 4. Lidocaine 5% TransDermal: 1 patch TransDermal Every 24 Hours 5. Oxybutynin: 5 mg Oral 4 Times a Day 6. Pantoprazole: 40 mg Oral Daily 7. Polyethylene Glycol: 17 gram(s) Oral 2 Times a Day 8. Simvastatin: 20 mg Oral At Bedtime 9. Sodium Chloride 0.9% Injectable Flush: 10 mL IntraVenous Flush Every 12 Hours PRN Medications 1. Albuterol 2.5 mg/ 3 mL Nebulizer Soln: 3 mL Inhalation Every 2 Hours 2. Bisacodyl Rectal: 10 mg Rectal Daily 3. Cyclobenzaprine: 10 mg Oral 3 Times a Day 4. Heparin Flush 10 unit/ mL PF Injectable: 5 mL IntraVenous Flush Every 12 Hours 5. Heparin Flush 10 unit/ mL PF Injectable PRN: 5 mL IntraVenous Flush According to Flush Policy 6. HYDROmorphone Injectable: 0.1 mg IntraVenous Push Every 2 Hours 7. Ketorolac Injectable: 15 mg IntraVenous Push Every 4 Hours 8. Loratadine: 10 mg Oral Daily 9. Naloxone Injectable: 0.2 mg IntraVenous Push Once 10. Ondansetron Injectable: 4 mg IntraVenous Push Every 6 Hours 11. oxyCODONE Immediate Release: 5 mg Oral Every 3 Hours 12. Sodium Chloride 0.9% Injectable Flush PRN: 10 mL IntraVenous Flush According to Flush Policy 13. Sodium Chloride 0.9% Injectable Flush PRN: 20 mL IntraVenous Flush According to Flush Policy Recent Lab Results: Results: I have reviewed these laboratory results: Complete Blood Count 29-Nov-2018 04:44:00 ResultValue White Blood Cell Count 9.2 Nucleated Erythrocyte Count 0.0 Red Blood Cell Count 2.72 L HGB 8.3 L HCT 26.4 L MCV 97 MCHC 31.4 L PLT 296 RDW-CV 13.9 Renal Function Panel 29-Nov-2018 04:44:00 ResultValue Glucose, Serum 93 NA 140 K 4.0 CL 105 Bicarbonate, Serum 26 Anion Gap, Serum 13 BUN 24 H CREAT 0.85 GFR-Non >60 GFR- >60 Calcium, Serum 7.6 L Phosphorus, Serum 3.7 ALB 2.6 L Radiology Results: Results: Impression: Extensive metallic artifact from the patient's orthopedic fixation hardware limits the study. There are new postoperative changes withextensive metallic artifact from posterior orthopedic fixation hardware and pedicle screws extending from T7 through L2 levels. There are suspected posterior laminectomies at the T10 and possibly T11 levels. There is again evidence of residualabnormal bone marrow signal suggestive of osseous neoplasm within a mildly collapsed T10 vertebral body. There is again evidence of mild convexity of the posterior margin of the T10 vertebral body. There has been interval decompression of the central canal at the T10 level when compared with 11/15/2018. The current MRI study demonstrates no significant central canal narrowing at the T10 level. The previously described abnormal bone marrow signal concerning for osseous metastatic disease involving the T9 and T11 vertebrae as well as the posteromedial right 11th rib is not adequately assessed on the current MRI study secondary to extensive metallic artifact from the patient's orthopedic fixation hardware. No abnormal epidural fluid collections are noted. There is again evidence of multilevel spondylosis which is similar in appearance when compared with the prior study dated 11/15/2018. The current MRI study demonstrates no significant central canal narrowing within the thoracic region. There is a right-sided pleural effusion. A small amount of atelectasis and/or infiltrate is identified within the posterior left lung base. The study was interpreted at [facility] [place]. MRI T Spine w/wo Contrast [Nov 26 2018 5:09PM] Assessment and Plan: Assessment: Trish Hunt is a 73 year old female former smoker w/ PMHx significant for HTN, Impaired Fasting Glucose, Hyperlipidemia, Peripheral Neuropathy, Hypothyroidism, GERD, Morbid Obesity and Recent Spinal Cord Stimulator Implant who is transferred to [facility] 11/12/18 from [facility] after presenting with intractable progressive back pain with SOB and found on imaging to have a lung mass with adenopathy and suspected spinal metastasis which has now been proven to be a Lung Adenocarcinoma and she underwent Surgical Decompression of her Spinal Lesion. PLAN: In Shared Visit with Dr. Bethea STAGE IV METASTATIC LUNG ADENOCARCINOMA: Former smoker. Reported SOB and chest pain with deep breath at [place] ER presentation 11/11/18. A CT of the Chest showed Occlusion of the right middle bronchus with pleural effusion with suspected spinal metastasis. A diagnostic Right Thoracentesis via U/S was obtained 11/12/18 for 140 ml of fluid with fluid cytology resulting negative. MRI of the brain 11/14/18 without lesions. Pulmonology consulted and a Bronchoscopy w/ EBUS 11/15/19 with sampling of right hilar mass and subcarinal lymph node which were both positive for adenocarcinoma. Lymph node FNA Pathology showed Positive PD-L1 Expression as well. Oncology and Radiation Oncology were consulted with plan to follow up following surgical healing from thoracic metastatic decompression and fusion patient desires to do this at [facility] surgical pathology is showing a metastatic non small cell carcinoma consistent with adenocarcinoma involving the soft tissue and bone - schedule follow up with Oncology and Radiation Oncology at [facility] in three weeks T10 PATHOLOGIC FRACTURE w/ CORD COMPRESSION: She underwent a Thoracic Decompression and Fusion with back pain much improved. Post- operative thoracic x-ray done 11/26/18. Post-op MRI of the Spine under Anesthesia 11/26/18 reviewed by Neurosurgery. - continue added Toradol 15 mg IV every 4 hours PRN - following palliative care original recs with oxy 5 mg by mouth q3h as needed and dilaudid o.1 mg IVP q2h, additional recs left today- awaiting attending signature prior to changing because the oral regimen was just started today - continue Acetaminophen 975 mg by mouth tid - Flexeril PRN - follow up with Dr. Huber Tamayo (Neurosurgery) 15-Dec-2018 14:00 LEFT HIP PAIN: Developed yesterday with weight bearing. Persists today. Reports location as lateral hip. PET scan noted a L5 transverse process lytic lesion., - Left hip x-ray 2 view awaiting read ACUTE BLOOD LOSS ANEMIA: Post-operative. H&H 14 & 46 at admit, decreased to 8 & 25 post-op 11/24/17 recieved 1 unit of blood post o[p and H&H remains stable - check CBC in a.m. BILATERAL LEG EDEMA: With some serous fuid drainage of right lower leg from pinhole lesion. - JHONY wraps to legs PRN comfort URGE INCONTINENCE: Has been a big issue for patient in past with Oxybutynin initially helping, but then failed and failed multiple other agents resulting in successful spinal cord stimulator implant in August, which was removed in October due to back pain which unfortunately turned out to be back metastasis of CA. [place] removed yesterday and doing well with Oxybutynin - continue Oxybutynin 5 mg qid IMPAIRED FASTING GLUCOSE: Denies diagnosis of Diabetes. States was told had elevated blood glucose 20 years ago with Metformin initiated as preventive. 07/2018 Hgb A1C normal. Blood glucose 98 on noon. labs despite Decadron. I suspect with her recent weight loss, this may no longer be needed - continue to hold home Metformin ER - check fasting blood glucose in a.m. with labs HYPOTHYROIDISM: TSH 0.86 - continue home Levothyroxine 50 mcg daily OBESITY: BMI 43 CODE STATUS: Re-Discussed with patient 11/25/18. She continues to desire full interventions at arrest, but would not desire prolonged life support - Full code - Palliative Care informed of patient wishes DVT PROPHYLAXIS: - continue Enoxaparin 40 mg subcutaneous twice a day - sequential compression devices. DISCHARGE DISPOSITION: Lives with . PT recommends Skilled Care, which patient is agreeable to closer to home in [place]. Social work consulted. Family at bedside and supportive Signature/Cosignature/Attestation: Provider/Team Contact Info-Pager [phone] Attending Only - Shared Visit with Advanced Practice ProviderThis is a shared visit. I have reviewed the Advanced Practice Providers encounter note, approve the Advanced Practice Providers documentation, and provide the following additional information from my personal encounter. Comments/ Additional Findings pain is doing well as long as not moving, but remains significant issue with minimal movement / working with Physical Therapy. she is agree to transitioning off of DETONATOR ASSEMBLER. will do this and follow up further pal care recommendations. benefit from longer acting agent like fentanyl will also continue to work on bowel care. patient expressed some fullness, although didn't believe she is constipated. awaiting read on hip xrays still. Electronic Signatures: Cheng Bethea) (Signed 29-Nov-2018 18:35) Authored: Signature/Cosignature/Attestation Jordan Saunders (ALIGNMENT SPECIALIST-GRIEVANCE MANAGER) (Signed 29-Nov-2018 19:09) Authored: Service, Subjective Data, Objective Data, Assessment and Plan, Signature/Cosignature/Attestation Last Updated: 29-Nov-2018 19:09 by Jordan Saunders (ALIGNMENT SPECIALIST-GRIEVANCE MANAGER) CBC Collected: 11/29/2018 Status: F Source: [facility] 4:44 AM HOSPITALS REPOSITORY TYPE CODE TESTS RESULT OUT OF REFERENCE UNITS RANGE LAB WBCR(LOINC 4.4 - 11.3 x10E9/L ) WBC 9.2 LAB NRBC(LOINC 0.0-0.0 /100 WBC ) NUCLEATED RBC 0.0 LAB RBCCT(LOIN 4.00 - 5.20 x10E12/L C) Low RBC 2.72 LAB HGB(LOINC) 12.0 - 16.0 g/dL Low HGB 8.3 LAB HCT(LOINC) 36.0 - 46.0 % Low HCT 26.4 LAB MCV(LOINC) 80 - 100 fL MCV 97 LAB MCHC2(LOIN 32.0 - 36.0 g/dL C) Low MCHC 31.4 LAB PLTCT(LOIN 150 - 450 x10E9/L C) PLT 296 LAB RDWCV(LOIN 11.5 - 14.5 % C) RDW-CV 13.9 Performed By: #### CBC #### [facility] [id number] [place] [address] RENAL FUNCTION PANEL Collected: 11/29/2018 Status: F Source: [facility] 4:44 [facility] REPOSITORY TYPE CODE TESTS RESULT OUT OF REFERENCE UNITS RANGE LAB GLU(LOINC) 74 - 99 mg/dL GLUCOSE 93 LAB SOD(LOINC) 136 - 145 mmol/L SODIUM 140 LAB K(LOINC) 3.5 - 5.3 mmol/L POTASSIUM 4.0 LAB CHLOR(LOIN 98 - 107 mmol/L C) CHLORIDE 105 LAB BIC(LOINC) 21 - 32 mmol/L BICARBONATE 26 LAB ANGAP(LOIN 10 - 20 mmol/L C) ANION GAP 13 LAB UREA(LOINC 6 - 23 mg/dL ) UREA High NITROGEN 24 LAB CREA(LOINC 0.50 - 1.05 mg/dL ) CREATININE 0.85 LAB GFRFN(LOIN >60 mL/min/1.7 C) 3m2 GFR-NON AM. >60 LAB GFRAA(LOIN >60 mL/min/1.7 C) 3m2 GFR- AM. >60 Result Comment: CALCULATIONS OF ESTIMATED GFR ARE PERFORMED USING THE MDRD STUDY EQUATION FOR THE IDMS-TRACEABLE CREATININE METHODS. CLIN CHEM 2007;53:766-72 LAB CA(LOINC) 8.6 - 10.6 mg/dL CALCIUM Low 7.6 LAB PHOS(LOINC) 2.5 - 4.9 mg/dL PHOSPHORUS 3.7 Result Comment: The performance characteristics of phosphorus testing in heparinized plasma have been validated by the individual laboratory site where testing is performed. Testing on heparinized plasma is not approved by the FDA; however, such approval is not necessary. LAB ALB(LOINC) 3.4 - 5.0 g/dL Low ALBUMIN 2.6 Performed By: #### RENAL #### [facility] [id number] [place] [address] BN HIP, UNILATERAL Observed: 11/28/2018 Status: F Source: [facility] W/PELVIS WHEN 10:47 PM HOSPITALS REPOSITORY PERFORMED 2-3 VIEWS Patient Name: TRISH HUNT STUDY: MATIAS HIP, UNILATERAL W/PELVIS WHEN PERFORMED 2-3 VIEWS; 11/28/2018 10:47 pm INDICATION: Signs/Symptoms: pain. COMPARISON: None. ACCESSION NUMBER(S): [id number] ORDERING CLINICIAN: NESSA CARLOS FINDINGS: Moderate bilateral hip joint arthrosis is identified, as well as moderate sacroiliac joint arthrosis. 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 No evidence of acute fracture or dislocation. The soft tissues appear grossly unremarkable. Several punctate metallic densities are seen overlying the right ilium. IMPRESSION: 1. 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 2. 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 I personally reviewed the images/study and I agree with the findings as stated. This study was interpreted at [facility] [place], [place], [place]. Electronically signed by: SARMAD CHAMPION MD DAILY PROGRESS Observed: 11/28/2018 Status: COMPLETED Source: [facility] NOTE-MEDICINE 4:24 PM HOSPITALS REPOSITORY Service: Medicine Subjective Data: TRISH HUNT is a 73 year old Female who is Hospital Day # 17 and POD #5 for T10-11 transpedicular decompression of tumor, T7-L2 instrumented fusion. I didn't have a good night. It hurts on my back. My left hip hurts.. Additional Information: Reports back pain improved when leaning forward or sitting at edge of bed. Reports Toradol helps with pulling sensation of back. Left hip laterally painful with standing and position change. Reports she has not had difficulties with urge incontinence on Oxybutynin. 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 (11/2018 EBUS) - Thoracic Spinal Metastasis w/ Cord Compression * T10-T11 Decompression w/ T7-L2 Fusion w/ Allograft 11/2018 - Hypothyroidism - GERD - Peripheral Neuropathy - Morbid Obesity - Overactive Bladder * Spinal Cord Stimulator Implantation 08/2018 (removed 11/02) - Tonsillectomy - Hemorrhoidectomy - Cholecystectomy - L4-L5 Decompression 1999 T PRBPSpO2 [id number]/6396% Date/Time11/28 13: 13: 13: 13: 13:23 Range(36.3C - 36.7C ) (77 - 91 ) (18 - 18 ) (94 - 119 )/ (61 - 76 ) (94% - 96% ) Pain reported at 11/28 9:00: 4 Weights 11/28 9:00: Weight in kg (Weight (kg)) 112 11/28 9:00: Weight in lbs ((lbs)) 246.9 Physical Exam: Constitutional: Alert and oriented lying in bed in a.m. and sitting in chair in p.m with uncomfortable appearance. Eyes: Sclera white ENMT: Mucous membranes moist Head/Neck: Normocephalic Respiratory/Thorax: Respirations easy and unlabored with breath sounds clear bilaterally. Cardiovascular: Heart with regular rhythm, S1, S2, no appreciable murmur Gastrointestinal: Abdomen obese, non-distended, hypoactive bowel sounds, soft, non-tender Musculoskeletal: ROM intact, no joint swelling, normal strength. Extremities: No cyanosis or wounds. 2+ pitting edema of lower legs and feet bilaterally with serous drainage from pinpoint opening proximal to ankle. Right Midline IV intact Neurological: Alert and oriented x3, intact senses and motor responses with 5/5 strength of arms and legs bilaterally Psychological: Appropriate mood and behavior Skin: No rashes. Long thoracic surgical incision dry and intact, well approximated with surgical brittni present. Steri strip over hemovac sites. Medication: Medications: Continuous Medications 1. HYDROmorphone DETONATOR ASSEMBLER 25 mg/ NaCL 0.9% 50 mL: 25 mg IV DETONATOR ASSEMBLER <Continuous> Scheduled Medications 1. Acetaminophen: 975 mg Oral <User Schedule> 2. Conjugated Estrogens 0.625mg/ gram Va.25 applicatorful Vaginal At Bedtime 3. Levothyroxine: 50 microgram(s) Oral Daily 4. Lidocaine 5% TransDermal: 1 patch TransDermal Every 24 Hours 5. Oxybutynin: 5 mg Oral 4 Times a Day 6. Pantoprazole: 40 mg Oral Daily 7. Polyethylene Glycol: 17 gram(s) Oral 2 Times a Day 8. Simvastatin: 20 mg Oral At Bedtime 9. Sodium Chloride 0.9% Injectable Flush: 10 mL IntraVenous Flush Every 12 Hours PRN Medications 1. Albuterol 2.5 mg/ 3 mL Nebulizer Soln: 3 mL Inhalation Every 2 Hours 2. Bisacodyl Rectal: 10 mg Rectal Daily 3. Cyclobenzaprine: 10 mg Oral 3 Times a Day 4. Heparin Flush 10 unit/ mL PF Injectable: 5 mL IntraVenous Flush Every 12 Hours 5. Heparin Flush 10 unit/ mL PF Injectable PRN: 5 mL IntraVenous Flush According to Flush Policy 6. HYDROmorphone Injectable: 0.2 mg IntraVenous Push Once 7. Ketorolac Injectable: 15 mg IntraVenous Push Every 4 Hours 8. Loratadine: 10 mg Oral Daily 9. Naloxone Injectable: 0.2 mg IntraVenous Push Once 10. Ondansetron Injectable: 4 mg IntraVenous Push Every 6 Hours 11. Sodium Chloride 0.9% Injectable Flush PRN: 10 mL IntraVenous Flush According to Flush Policy 12. Sodium Chloride 0.9% Injectable Flush PRN: 20 mL IntraVenous Flush According to Flush Policy Recent Lab Results: Results: I have reviewed these laboratory results: Complete Blood Count Trend[facility] View [id number] 12:05:00 27-Nov-2018 09:45:00 White Blood Cell Count9.5 11.8 H Nucleated Erythrocyte Count0.0 0.0 Red Blood Cell Count2.96 L 3.16 L HGB9.1 L 9.6 L HCT28.6 L 28.5 L MCV97 90 MCHC31.8 L 33.7 JCP988 303 RDW-CV13.6 13.2 Basic Metabolic Panel [facility] [id number] 12:05:00 27-Nov-2018 09:45:00 Glucose, Serum98 79 NA137 140 K3.8 3.7 CL103 105 Bicarbonate, Serum26 25 Anion Gap, Serum12 14 BUN32 H 24 H CREAT0.98 0.78 GFR-Non [id number] A >60 GFR- Yluebbsv07 >60 Calcium, Serum8.0 L 8.4 L 11/23/18: Thoracic Spine Surgical Pathology: pending Assessment and Plan: Assessment: Trish Hunt is a 73 year old female former smoker w/ PMHx significant for HTN, Impaired Fasting Glucose, Hyperlipidemia, Peripheral Neuropathy, Hypothyroidism, GERD, Morbid Obesity and Recent Spinal Cord Stimulator Implant who is transferred to [facility] 11/12/18 from [facility] after presenting with intractable progressive back pain with SOB and found on imaging to have a lung mass with adenopathy and suspected spinal metastasis which has now been proven to be a Lung Adenocarcinoma and she underwent Surgical Decompression of her Spinal Lesion. PLAN: In Shared Visit with Dr. Grazyna Bunch 1) STAGE IV METASTATIC LUNG ADENOCARCINOMA: Former smoker. Reported SOB and chest pain with deep breath at [place] ER presentation 11/11/18. A CT of the Chest showed Occlusion of the right middle bronchus with pleural effusion with suspected spinal metastasis. A diagnostic Right Thoracentesis via U/S was obtained 11/12/18 for 140 ml of fluid with fluid cytology resulting negative. MRI of the brain 11/14/18 without lesions. Pulmonology consulted and a Bronchoscopy w/ EBUS 11/15/19 with sampling of right hilar mass and subcarinal lymph node which were both positive for adenocarcinoma. Lymph node FNA Pathology showed Positive PD-L1 Expression as well. Oncology and Radiation Oncology were consulted with plan to follow up following surgical healing from thoracic metastatic decompression and fusion patient desires to do this at [facility] - await Surgical Pathology from Thoracic Decompression 11/23/18 for confirmation - schedule follow up with Oncology and Radiation Oncology at [facility] in three weeks 2) T10 PATHOLOGIC FRACTURE w/ CORD COMPRESSION: Presumed metastasis r/t # 1. Presented to [facility] 11/11/18 with intractable progressive back pain radiating around waist in band of 2-3 weeks accompanied by SOB. Due to the pain she had the Spinal Cord Stimulator Implanted in August removed on 10/25/18 without improvement of pain. She has prior disc surgery L4-L5 several years back and has been asymptomatic from it. She does have chronic urinary urge incontinence which has come back after her spinal stimulator was recently removed. A CT Chest, Abdomen and Pelvis at [place] showed a suspected Pathologic fracture of the T10 vertebral body with canal stenosis as well as additional vertebral lesions at T8, T9, and T11 suspicious for additional metastases. An MRI of the T spine was obtained and showed the lesion was not compressing the spine but was however in close proximity to the cord, and therefore she was given Decadron with request for transfer to [facility] for Neurosurgery evaluation. Neurosurgery consulted. CT Thoracic and Lumbar Spine as well as MRI of entire spine done and on 11/23/18. Significant Pain was an issue and Palliative care consulted and Dexamethasone as well as a dose of Pamidronate given. She underwent a Thoracic Decompression and Fusion with back pain much improved. Post-operative thoracic x-ray done 11/26/18. She is on a DETONATOR ASSEMBLER of Hydromorphone. Hemovacs fell out. Post-op MRI of the Spine under Anesthesia 11/26/18 reviewed by Neurosurgery. She had increased pain yesterday as moving in and out of bed to void with trinidad removed in morning and following a shower. Reports uncomfortable night with pain of thoracic spine while laying against it - more comfortable in bariatric chair today. [place] Toradol helped back pain. DETONATOR ASSEMBLER use Her leukocytosis is now resolved (12k yesterday) - I suspect the leukocytosis to be related to surgery as well as Dexamethasone, as she has no evidence for an infection. Had increased need of DETONATOR ASSEMBLER yesterday with 6.3 mg Hydromorphone given - continue added Toradol 15 mg IV every 4 hours PRN - hold off oral dosing for now of pain meds - continue DETONATOR ASSEMBLER Hydromorphone to 0.1 mg with 10 minute lockout due to - change to oral dosing in a.m. if pain improved - continue Acetaminophen 975 mg by mouth tid - Flexeril PRN - follow up with Dr. Huber Tamayo (Neurosurgery) 15-Dec-2018 14:00 3) LEFT HIP PAIN: Developed yesterday with weight bearing. Persists today. Reports location as lateral hip. PET scan noted a L5 transverse process lytic lesion., - Left hip x-ray 2 view via bed with Hydromorphone 0.2 mg IV director surface transportation 4) ACUTE BLOOD LOSS ANEMIA: Post-operative. H&H 14 & 46 at admit, decreased to 8 & 25 post-op 11/24/17 and now H&H 10 & 29 - stable post a unit of blood post-operative - check CBC in a.m. 5) BILATERAL LEG EDEMA: With some serous fuid drainage of right lower leg from pinhole lesion. - Furosemide 40 mg by mouth today - JHONY wraps to legs PRN comfort 6) URGE INCONTINENCE: Has been a big issue for patient in past with Oxybutynin initially helping, but then failed and failed multiple other agents resulting in successful spinal cord stimulator implant in August, which was removed in October due to back pain which unfortunately turned out to be back metastasis of CA. Trinidad removed yesterday and doing well with Oxybutynin - continue Oxybutynin 5 mg qid 7) IMPAIRED FASTING GLUCOSE: Denies diagnosis of Diabetes. States was told had elevated blood glucose 20 years ago with Metformin initiated as preventive. 07/2018 Hgb A1C normal. Blood glucose 98 on noon. labs despite Decadron. I suspect with her recent weight loss, this may no longer be needed - continue to hold home Metformin ER - check fasting blood glucose in a.m. with labs 8) HYPOTHYROIDISM: TSH 0.86 - continue home Levothyroxine 50 mcg daily 9) OBESITY: BMI 43 10) CODE STATUS: Re-Discussed with patient 11/25/18. She continues to desire full interventions at arrest, but would not desire prolonged life support - Full code - Palliative Care informed of patient wishes 11) DVT PROPHYLAXIS: - continue Enoxaparin 40 mg subcutaneous twice a day - sequential compression devices. 12) DISCHARGE DISPOSITION: Lives with . PT recommends Skilled Care, which patient is agreeable to closer to home in [place]. Social work consulted. Family at bedside and supportive PCP: Dr. Harjinder Braswell [phone] Urology: Dr. Earnest Herrera Pharmacy: [facility] ([place]) [phone] DME: Nebulizer Insurer: [employer] Medicare Family: / POA Healthcare - Robbie Hunt [phone] Dtr. / 1st Alt. POA HC - Annita Sin [phone] / [phone] Dtr. / 2nd Alt. POA HC - Dionne Read [phone] Follow Up: Dr. Huber Tmaayo (Neurosurgery) 15-Dec-2018 14:00 [facility] [address] [facility] Signature/Cosignature/Attestation: Provider/Team Contact Info-Pager Miriam Carlos CNP # [id number] Comments/ Additional Findings Trish Hunt is a 73 year old female former smoker w/ PMHx significant for HTN, Impaired Fasting Glucose, Hyperlipidemia, Peripheral Neuropathy, Hypothyroidism, GERD, Morbid Obesity and Recent Spinal Cord Stimulator Implant who is transferred to [facility] 11/12/18 from [facility] after presenting with intractable progressive back pain with SOB Patient sitting comfortably in chair Surgical scar healing well. Chest bilaterally clear. Bilateral pedal edema present []Stage IV metastatic lung adenocarcinoma. MRI of brain did not show any metastasis Outpatient follow-up with oncology and radiation oncology []T10 PATHOLOGIC FRACTURE w/ CORD COMPRESSION: Status post thoracic decompression and fusion. Continue pain management with cyclobenzaprine Dilaudid DETONATOR ASSEMBLER, Toradol and Tylenol Outpatient this is a follow-up Surgical scar healing well []left hip pain Xray hip pending Electronic Signatures: Nessa Carlos (ALIGNMENT SPECIALIST-GRIEVANCE MANAGER) (Signed 28-Nov-2018 16:52) Authored: Service, Subjective Data, Objective Data, Assessment and Plan, Signature/Cosignature/Attestation Grazyna Bunch) (Signed 28-Nov-2018 18:33) Authored: Signature/Cosignature/Attestation Co-Signer: Service, Subjective Data, Objective Data, Assessment and Plan, Signature/Cosignature/Attestation Last Updated: 28-Nov-2018 18:33 by Grazyna Bunch) CBC Collected: 11/28/2018 Status: F Source: [place] 12:05 HOSPITALS REPOSITORY TYPE CODE TESTS RESULT OUT OF REFERENCE UNITS RANGE LAB WBCR(LOINC 4.4 - 11.3 x10E9/L ) WBC 9.5 LAB NRBC(LOINC 0.0-0.0 /100 WBC ) NUCLEATED RBC 0.0 LAB RBCCT(LOIN 4.00 - 5.20 x10E12/L C) Low RBC 2.96 LAB HGB(LOINC) 12.0 - 16.0 g/dL Low HGB 9.1 LAB HCT(LOINC) 36.0 - 46.0 % Low HCT 28.6 LAB MCV(LOINC) 80 - 100 fL MCV 97 LAB MCHC2(LOIN 32.0 - 36.0 g/dL C) Low MCHC 31.8 LAB PLTCT(LOIN 150 - 450 x10E9/L C) PLT 303 LAB RDWCV(LOIN 11.5 - 14.5 % C) RDW-CV 13.6 Performed By: #### CBC #### [facility] [address] [place] [address] BASIC METABOLIC PANEL Collected: 11/28/2018 Status: F Source: [place] 12:05 [facility] REPOSITORY TYPE CODE TESTS RESULT OUT OF RANGE REFERENCE UNITS LAB GLU(LOINC) 74 - 99 mg/dL GLUCOSE 98 LAB SOD(LOINC) 136 - 145 mmol/L SODIUM 137 LAB K(LOINC) 3.5 - 5.3 mmol/L POTASSIUM 3.8 LAB CHLOR(LOIN 98 - 107 mmol/L C) CHLORIDE 103 LAB BIC(LOINC) 21 - 32 mmol/L BICARBONATE 26 LAB ANGAP(LOIN 10 - 20 mmol/L C) ANION GAP 12 LAB UREA(LOINC 6 - 23 mg/dL ) High UREA NITROGEN 32 LAB CREA(LOINC 0.50 - 1.05 mg/dL ) CREATININE 0.98 LAB GFRFN(LOIN >60 mL/min/1.7 C) 3m2 GFR-NON Abnormal AM. 55 LAB GFRAA(LOIN >60 mL/min/1.7 C) 3m2 GFR- AM. 67 Result Comment: CALCULATIONS OF ESTIMATED GFR ARE PERFORMED USING THE MDRD STUDY EQUATION FOR THE IDMS-TRACEABLE CREATININE METHODS. CLIN CHEM 2007;53:766-72 LAB CA(LOINC) 8.6 - 10.6 mg/dL Low CALCIUM 8.0 Performed By: #### BMP #### [facility] [address] [place] [address] DAILY PROGRESS Observed: 11/27/2018 Status: COMPLETED Source: UNIVERSITY NOTE-MEDICINE 4:32 PM HOSPITALS REPOSITORY Service: Medicine Subjective Data: TRISH HUNT is a 73 year old Female who is Hospital Day # 16 and POD #4 for T10-11 transpedicular decompression of tumor, T7-L2 instrumented fusion. I'm not wearing oxygen anymore. I'm having pain across my back and the first three fingers of my right hand are numb. I think I did too much in the shower, but the warm water felt so good on my back.. Additional Information: Hemovac drains fell out during night. 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 (11/2018 EBUS) - Thoracic Spinal Metastasis w/ Cord Compression * T10-T11 Decompression w/ T7-L2 Fusion w/ Allograft 11/2018 - Hypothyroidism - GERD - Peripheral Neuropathy - Morbid Obesity - Overactive Bladder * Spinal Cord Stimulator Implantation 08/2018 (removed 11/02) - Tonsillectomy - Hemorrhoidectomy - Cholecystectomy - L4-L5 Decompression 1999 T PRBPSpO2 [id number]% Date/Time11/27 13: 13: 13: 13: 13:59 Range(35.7C - 37.1C ) (73 - 94 ) (18 - 18 ) (107 - 135 )/ (53 - 86 ) (94% - 100% ) As of 26-Nov-2018 18:24:00, patient is on 2 L/min of oxygen via nasal cannula. Highest temp of 37.1 C was recorded at 11/26 18:24 Pain reported at 11/27 9:04: 2 Weights 11/27 10:06: Weight in kg (Weight (kg)) 95.8 11/27 10:06: Weight in lbs ((lbs)) 211.2 Physical Exam: Constitutional: Alert and oriented. lying in bed in no distress. Eyes: Sclera white ENMT: Mucous membranes moist Head/Neck: Normocephalic Respiratory/Thorax: Respirations easy and unlabored with breath sounds clear bilaterally. Cardiovascular: Heart with regular rhythm, S1, S2, no appreciable murmur Gastrointestinal: Abdomen obese, non-distended, hypoactive bowel sounds, soft, non-tender Musculoskeletal: ROM intact, no joint swelling, normal strength Extremities: No cyanosis or wounds. trace edema of lower legs and feet bilaterally Neurological: Alert and oriented x3, intact senses and motor responses with 5/5 strength of arms and legs bilaterally Psychological: Appropriate mood and behavior Skin: No rashes. Long thoracic surgical incision dry and intact, well approximated with surgical brittni present. Steri strip over hemovac sites with sutures visible Medication: Medications: Continuous Medications 1. HYDROmorphone DETONATOR ASSEMBLER 25 mg/ NaCL 0.9% 50 mL: 25 mg IV DETONATOR ASSEMBLER <Continuous> Scheduled Medications 1. Acetaminophen: 975 mg Oral <User Schedule> 2. Conjugated Estrogens 0.625mg/ gram Va.25 applicatorful Vaginal At Bedtime 3. Ketorolac Injectable: 15 mg IntraVenous Push Once 4. Levothyroxine: 50 microgram(s) Oral Daily 5. Lidocaine 5% TransDermal: 1 patch TransDermal Every 24 Hours 6. Oxybutynin: 5 mg Oral 4 Times a Day 7. Pantoprazole: 40 mg Oral Daily 8. Polyethylene Glycol: 17 gram(s) Oral 2 Times a Day 9. Simvastatin: 20 mg Oral At Bedtime 10. Sodium Chloride 0.9% Injectable Flush: 10 mL IntraVenous Flush Every 12 Hours PRN Medications 1. Albuterol 2.5 mg/ 3 mL Nebulizer Soln: 3 mL Inhalation Every 2 Hours 2. Bisacodyl Rectal: 10 mg Rectal Daily 3. Cyclobenzaprine: 10 mg Oral 3 Times a Day 4. Heparin Flush 10 unit/ mL PF Injectable: 5 mL IntraVenous Flush Every 12 Hours 5. Heparin Flush 10 unit/ mL PF Injectable PRN: 5 mL IntraVenous Flush According to Flush Policy 6. Loratadine: 10 mg Oral Daily 7. Naloxone Injectable: 0.2 mg IntraVenous Push Once 8. Ondansetron Injectable: 4 mg IntraVenous Push Every 6 Hours 9. Sodium Chloride 0.9% Injectable Flush PRN: 10 mL IntraVenous Flush According to Flush Policy 10. Sodium Chloride 0.9% Injectable Flush PRN: 20 mL IntraVenous Flush According to Flush Policy Recent Lab Results: Results: I have reviewed these laboratory results: Complete Blood Count Trending View [id number] 09:45:00 26-Nov-2018 05:08:00 White Blood Cell Count11.8 H 14.6 H Nucleated Erythrocyte Count0.0 0.0 Red Blood Cell Count3.16 L 3.07 L HGB9.6 L 9.2 L HCT28.5 L 29.3 L MCV90 95 MCHC33.7 31.4 L [id number] 262 RDW-CV13.2 13.3 Basic Metabolic Panel 27-Nov-2018 09:45:00 ResultValue Glucose, Serum 79 NA 140 K 3.7 CL 105 Bicarbonate, Serum 25 Anion Gap, Serum 14 BUN 24 H CREAT 0.78 GFR-Non >60 GFR- >60 Calcium, Serum 8.4 L Glucose_POCT 26-Nov-2018 15:49:00 ResultValue Glucose-POCT 115 H Assessment and Plan: Assessment: Trish Hunt is a 73 year old female former smoker w/ PMHx significant for HTN, Impaired Fasting Glucose, Hyperlipidemia, Peripheral Neuropathy, Hypothyroidism, GERD, Morbid Obesity and Recent Spinal Cord Stimulator Implant who is transferred to [facility] 11/12/18 from [facility] after presenting with intractable progressive back pain with SOB and found on imaging to have a lung mass with adenopathy and suspected spinal metastasis which has now been proven to be a Lung Adenocarcinoma and she underwent Surgical Decompression of her Spinal Lesion. PLAN: In Shared Visit with Dr. Grazyna Bunch 1) STAGE IV METASTATIC LUNG ADENOCARCINOMA: Former smoker. Reported SOB and chest pain with deep breath at [place] ER presentation 11/11/18. A CT of the Chest showed Occlusion of the right middle bronchus with pleural effusion with suspected spinal metastasis. A diagnostic Right Thoracentesis via U/S was obtained 11/12/18 for 140 ml of fluid with fluid cytology resulting negative. MRI of the brain 11/14/18 without lesions. Pulmonology consulted and a Bronchoscopy w/ EBUS 11/15/19 with sampling of right hilar mass and subcarinal lymph node which were both positive for adenocarcinoma. Lymph node FNA Pathology showed Positive PD-L1 Expression as well. Oncology and Radiation Oncology were consulted with plan to follow up following surgical healing from thoracic metastatic decompression and fusion patient desires to do this at [facility] - await Surgical Pathology from Thoracic Decompression 11/23/18 for confirmation - schedule follow up with Oncology and Radiation Oncology at [facility] in three weeks 2) T10 PATHOLOGIC FRACTURE w/ CORD COMPRESSION: Presumed metastasis r/t # 1. Presented [facility] 11/11/18 with intractable progressive back pain radiating around waist in band of 2-3 weeks accompanied by SOB. Due to the pain she had the Spinal Cord Stimulator Implanted in August removed on 10/25/18 without improvement of pain. She has prior disc surgery L4-L5 several years back and has been asymptomatic from it. She does have chronic urinary urge incontinence which has come back after her spinal stimulator was recently removed. A CT Chest, Abdomen and Pelvis at [place] showed a suspected Pathologic fracture of the T10 vertebral body with canal stenosis as well as additional vertebral lesions at T8, T9, and T11 suspicious for additional metastases. An MRI of the T spine was obtained and showed the lesion was not compressing the spine but was however in close proximity to the cord, and therefore she was given Decadron with request for transfer to [facility] for Neurosurgery evaluation. Neurosurgery consulted. CT Thoracic and Lumbar Spine as well as MRI of entire spine done and on 11/23/18. Significant Pain was an issue and Palliative care consulted and Dexamethasone as well as a dose of Pamidronate given. She underwent a Thoracic Decompression and Fusion with back pain much improved. Post-operative thoracic x-ray done 11/26/18. She is on a DETONATOR ASSEMBLER of Hydromorphone. Hemovacs fell out during night. Had post-op MRI of the Spine under Anesthesia yesterday that has been reviewed by Neurosurgery. She is having increased pain today as moving in and out of bed to void with trinidad removed this morning. Her leukocytosis is improved with WBC decreased to 12k today (15k yesterday) - I suspect the leukocytosis to be related to surgery as well as Dexamethasone, as she has no evidence for an infection. - add Toradol 15 mg IV every 4 hours PRN - hold off oral dosing for now of pain meds - continue DETONATOR ASSEMBLER Hydromorphone to 0.1 mg with 10 minute lockout - change to oral dosing in a.m. - Flexeril PRN - follow up with Dr. Huber Tamayo (Neurosurgery) 15-Dec-2018 14:00 3) ACUTE BLOOD LOSS ANEMIA: Post-operative. H&H 14 & 46 at admit, decreased to 8 & 25 post-op 11/24/17 and now H&H 10 & 29 - stable post a unit of blood post-operative - check CBC in a.m. 4) HYPOXIA: Has been requiring O2 via nasal cannula. Pleural effusions present on imaging. She has had some intermittent wheezing, but none today and she is now on room air. Uses Albuterol at home at times. She was diuresed postoperatively and weight is now decreased to 211# (95.8 kg) on a standing scale - it had been 113 kg (249#) on 11/13/18 - a loss of 38# - oxygen at 1- 2 liters PRN - Albuterol 2.5 mg / 3 ml every 6 hours nebulized - Bronchial Hygiene tid 5) CONSTIPATION: likely r/t medication control for # 2. States take Miralax to assist - reports BM today and this has been consistent with Miralax - continue Miralax twice a day and PRN - Bisacodyl suppository daily PRN 6) IMPAIRED FASTING GLUCOSE: Denies diagnosis of Diabetes. States was told had elevated blood glucose 20 years ago with Metformin initiated as preventive. 07/2018 Hgb A1C normal. Blood glucose 79 on a.m. labs despite Decadron. I suspect with her recent weight loss, this may no longer be needed - continue to hold home Metformin ER - check fasting blood glucose in a.m. with labs 7) HYPOTHYROIDISM: TSH 0.86 - continue home Levothyroxine 50 mcg daily 8) OBESITY: BMI now 36 (was 43) 9) CODE STATUS: Re-Discussed with patient 11/25/18. She continues to desire full interventions at arrest, but would not desire prolonged life support - Full code - Palliative Care informed of patient wishes 10) DVT PROPHYLAXIS: - continue Enoxaparin 40 mg subcutaneous twice a day - sequential compression devices. 11) DISCHARGE DISPOSITION: Lives with . PT recommends Skilled Care, which patient is agreeable to closer to home in [place]. Social work consulted. Family at bedside and supportive PCP: Dr. Harjinder Braswell [phone] Urology: Dr. Earnest Herrera Pharmacy: [facility] ([place]) [phone] DME: Nebulizer Insurer: [employer] Medicare Family: / POA Healthcare - Robbie Hunt [phone] Dtr. / 1st Alt. POA - Annita Sin [phone] / [phone] Dtr. / 2nd Alt. POA - Dionne Mini Read [phone] Follow Up: Dr. Huber Tamayo (Neurosurgery) 15-Dec-2018 14:00 [facility] [place] [address] [facility] Signature/Cosignature/Attestation: Provider/Team Contact Info-Pager Miriam Carlos [facility] # [id number] Comments/ Additional Findings Trish Hunt is a 73 year old female former smoker w/ PMHx significant for HTN, Impaired Fasting Glucose, Hyperlipidemia, Peripheral Neuropathy, Hypothyroidism, GERD, Morbid Obesity and Recent Spinal Cord Stimulator Implant who is transferred to [facility] 11/12/18 from [facility] after presenting with intractable progressive back pain with SOB Patient sitting comfortably in bed. Surgical scar healing well. Chest bilaterally clear. Bilateral pedal edema present []Stage IV metastatic lung adenocarcinoma. MRI of brain did not show any metastasis Outpatient follow-up with oncology and radiation oncology []T10 PATHOLOGIC FRACTURE w/ CORD COMPRESSION: Status post thoracic decompression and fusion. Continue pain management with cyclobenzaprine Dilaudid DETONATOR ASSEMBLER, Toradol and Tylenol Outpatient this is a follow-up Patient still has stitches where the drain was placed, discuss with neurosurgery Surgical scar healing well Electronic Signatures: Nessa Carlos (ALIGNMENT SPECIALIST-GRIEVANCE MANAGER) (Signed 27-Nov-2018 19:27) Authored: Service, Subjective Data, Objective Data, Assessment and Plan, Signature/Cosignature/Attestation Grazyna Bunch) (Signed 27-Nov-2018 18:22) Authored: Signature/Cosignature/Attestation Last Updated: 27-Nov-2018 19:27 by Nessa Carlos (ALIGNMENT SPECIALIST-GRIEVANCE MANAGER) CBC Collected: 11/27/2018 Status: F Source: [facility] [address] [place] [address] REPOSITORY TYPE CODE TESTS RESULT OUT OF REFERENCE UNITS RANGE LAB WBCR(LOINC 4.4 - 11.3 x10E9/L ) WBC High 11.8 LAB NRBC(LOINC 0.0-0.0 /100 WBC ) NUCLEATED RBC 0.0 LAB RBCCT(LOIN 4.00 - 5.20 x10E12/L C) Low RBC 3.16 LAB HGB(LOINC) 12.0 - 16.0 g/dL Low HGB 9.6 LAB HCT(LOINC) 36.0 - 46.0 % Low HCT 28.5 LAB MCV(LOINC) 80 - 100 fL MCV 90 LAB MCHC2(LOIN 32.0 - 36.0 g/dL C) MCHC 33.7 LAB PLTCT(LOIN 150 - 450 x10E9/L C) PLT 303 LAB RDWCV(LOIN 11.5 - 14.5 % C) RDW-CV 13.2 Performed By: #### CBC #### [facility] [address] [place] [address] BASIC METABOLIC PANEL Collected: 11/27/2018 Status: F Source: [place] [address] [place] [address] REPOSITORY TYPE CODE TESTS RESULT OUT OF REFERENCE UNITS RANGE LAB GLU(LOINC) 74 - 99 mg/dL GLUCOSE 79 LAB SOD(LOINC) 136 - 145 mmol/L SODIUM 140 LAB K(LOINC) 3.5 - 5.3 mmol/L POTASSIUM 3.7 LAB CHLOR(LOIN 98 - 107 mmol/L C) CHLORIDE 105 LAB BIC(LOINC) 21 - 32 mmol/L BICARBONATE 25 LAB ANGAP(LOIN 10 - 20 mmol/L C) ANION GAP 14 LAB UREA(LOINC 6 - 23 mg/dL ) UREA High NITROGEN 24 LAB CREA(LOINC 0.50 - 1.05 mg/dL ) CREATININE 0.78 LAB GFRFN(LOIN >60 mL/min/1.7 C) 3m2 GFR-NON AM. >60 LAB GFRAA(LOIN >60 mL/min/1.7 C) 3m2 GFR- AM. >60 Result Comment: CALCULATIONS OF ESTIMATED GFR ARE PERFORMED USING THE MDRD STUDY EQUATION FOR THE IDMS-TRACEABLE CREATININE METHODS. CLIN CHEM 2007;53:766-72 LAB CA(LOINC) 8.6 - 10.6 mg/dL Low CALCIUM 8.4 Performed By: #### BMP #### [facility] [address] [place] [address] DAILY PROGRESS Observed: 11/27/2018 Status: COMPLETED Source: UNIVERSITY NOTE-PALLIATIVE CARE 9:44 AM HOSPITALS REPOSITORY Service: Palliative Care Subjective Data: TRISH HUNT is a 73 year old Female who is Hospital Day # 16 and POD #4 for T10-11 transpedicular decompression of tumor, T7-L2 instrumented fusion. Additional Information: Interval history: Pt's pain well controlled overnight. I discussed with bedside nursing and Nessa Carlos-primary team MACHINE SAND MIXER 18 hrs dilaudid iv usage via DETONATOR ASSEMBLER 4.1 mg mg 24/24 delivered/demands subjective: Pt's pain was well controlled today morning at rest , intermittent dull ,non-radiating, aggravated on movement to 3/10, relieved with rest and with dilaudid barrel planer dosing. Pt took a shower around noon and spent long time in shower and at the time of my visit c/o pain intermittent 6/10, dull, non-radiating, aggravated on movement and partially releived with dilaudid via barrel planer. Primary team MACHINE SAND MIXER Nessa walked into the room during my visit. Objective Data: Objective Information: T PRBPSpO2 [id number]/7698% Date/Time11/27 4: 4: 4: 4: 4:32 Range(35.7C - 37.1C ) (73 - 94 ) (18 - 18 ) (108 - 135 )/ (66 - 86 ) (94% - 100% ) As of 26-Nov-2018 18:24:00, patient is on 2 L/min of oxygen via nasal cannula. Highest temp of 37.1 C was recorded at 11/26 18:24 Pain reported at 11/27 9:04: 2 Physical Exam: Constitutional: Overweight woman, NAD, comfortable, family at the bedside Eyes: EOMI ENMT: mucus membranes moist Respiratory/Thorax: Breathing non-labored, symmetric chest expansion Cardiovascular: regular rate and rhythm without murmurs/rubs/gallops, s1/s2 Gastrointestinal: soft, no masses, nontender Musculoskeletal: SANDHYA Extremities: warm, well perfused, +1 pitting edema bilaterally Neurological: alert, oriented X 3 Psychological: pleasant, conversant Skin: warm dry Medication: Medications: Continuous Medications 1. HYDROmorphone DETONATOR ASSEMBLER 25 mg/ NaCL 0.9% 50 mL: 25 mg IV DETONATOR ASSEMBLER <Continuous> Scheduled Medications 1. Acetaminophen: 975 mg Oral <User Schedule> 2. Conjugated Estrogens 0.625mg/ gram Va.25 applicatorful Vaginal At Bedtime 3. Levothyroxine: 50 microgram(s) Oral Daily 4. Lidocaine 5% TransDermal: 1 patch TransDermal Every 24 Hours 5. Oxybutynin: 5 mg Oral 3 Times a Day 6. Pantoprazole: 40 mg Oral Daily 7. Polyethylene Glycol: 17 gram(s) Oral 2 Times a Day 8. Simvastatin: 20 mg Oral At Bedtime 9. Sodium Chloride 0.9% Injectable Flush: 10 mL IntraVenous Flush Every 12 Hours PRN Medications 1. Albuterol 2.5 mg/ 3 mL Nebulizer Soln: 3 mL Inhalation Every 2 Hours 2. Bisacodyl Rectal: 10 mg Rectal Daily 3. Cyclobenzaprine: 10 mg Oral 3 Times a Day 4. Heparin Flush 10 unit/ mL PF Injectable: 5 mL IntraVenous Flush Every 12 Hours 5. Heparin Flush 10 unit/ mL PF Injectable PRN: 5 mL IntraVenous Flush According to Flush Policy 6. Loratadine: 10 mg Oral Daily 7. Naloxone Injectable: 0.2 mg IntraVenous Push Once 8. Ondansetron Injectable: 4 mg IntraVenous Push Every 6 Hours 9. Sodium Chloride 0.9% Injectable Flush PRN: 10 mL IntraVenous Flush According to Flush Policy 10. Sodium Chloride 0.9% Injectable Flush PRN: 20 mL IntraVenous Flush According to Flush Policy Recent Lab Results: Results: I have reviewed these laboratory results: Complete Blood Count 26-Nov-2018 05:08:00 ResultValue White Blood Cell Count 14.6 H Nucleated Erythrocyte Count 0.0 Red Blood Cell Count 3.07 L HGB 9.2 L HCT 29.3 L MCV 95 MCHC 31.4 L PLT 262 RDW-CV 13.3 Radiology Results: Results: Impression: Extensive metallic artifact from the patient's orthopedic fixation hardware limits the study. There are new postoperative changes withextensive metallic artifact from posterior orthopedic fixation hardware and pedicle screws extending from T7 through L2 levels. There are suspected posterior laminectomies at the T10 and possibly T11 levels. There is again evidence of residualabnormal bone marrow signal suggestive of osseous neoplasm within a mildly collapsed T10 vertebral body. There is again evidence of mild convexity of the posterior margin of the T10 vertebral body. There has been interval decompression of the central canal at the T10 level when compared with 11/15/2018. The current MRI study demonstrates no significant central canal narrowing at the T10 level. The previously described abnormal bone marrow signal concerning for osseous metastatic disease involving the T9 and T11 vertebrae as well as the posteromedial right 11th rib is not adequately assessed on the current MRI study secondary to extensive metallic artifact from the patient's orthopedic fixation hardware. No abnormal epidural fluid collections are noted. There is again evidence of multilevel spondylosis which is similar in appearance when compared with the prior study dated 11/15/2018. The current MRI study demonstrates no significant central canal narrowing within the thoracic region. There is a right-sided pleural effusion. A small amount of atelectasis and/or infiltrate is identified within the posterior left lung base. The study was interpreted at [facility] [place]. MRI T Spine w/wo Contrast [Nov 26 2018 5:09PM] Assessment and Plan: Assessment: 73 year old F with h/o HTN, DM2 with morbid obesity, hypothyroidism, HLD, transferred to [facility] from [facility] with back pain due to spinal lesions, highly suspicious for lung cancer metastases s/p decompression and fixation of T-L spine on 11/23. Palliative care was consulted for pain management. #Neoplasm related back sec to bony metastases s/p neurosurgical decompression and fixation on 11/23, and pamidronate x1 on 11/24 -well controlled till morning but now c/o pain s/p shower since she feels worn out -18 hrs dilaudid iv usage via DETONATOR ASSEMBLER 4.1 mg mg 24/24 delivered/demands-= 80 mg OME- 60 MG oxycodone- Decreasing requirements since 2 days ago - Plan to give toradol 15 mg iv x 1 as antiinflammatory adjuvant for pain sec to bone mets and post op pain. If it helps may consider scheduling for couple days. Maximum can give for 5 days. - continue PPI for GI protection while on steroids -If pain better controlled after giving toradol, then consider stopping dilaudid DETONATOR ASSEMBLER and starting as needed pain meds as follows: oxycodone 5 mg every 3 hours as needed pain dilaudid 0.1 mg iv every 2 hours as needed pain uncontrolled with by mouth oxycodone. - continue miralax daily for prophylaxis for opiate related constipation. Above discussed in detail with MACHINE SAND MIXER Nessa Carlos and bedside nursing and family at the bedside-daughter and grand-daughter Thank you for inviting us to participate in the care of this patient. Please page [phone] with any questions or queries. Palliative Medicine will continue to follow. Signature/Cosignature/Attestation: Provider/Team Contact Info-Pager [phone] Comments/ Additional Findings Time: I spent 35 minutes with this patient. Greater than 50% of this time was spent in counselling/educating and/or coordination of care and medication regimen with pt and/or family and/or primary team and/or diversified crops farmworker and/or bedside nursing. Electronic Signatures: Marta Cannon) (Signed 27-Nov-2018 14:02) Authored: Service, Subjective Data, Objective Data, Assessment and Plan, Signature/Cosignature/Attestation Last Updated: 27-Nov-2018 14:02 by Marta Cannon) CLINICAL EVENT Observed: 11/27/2018 Status: UNK Source: UNIVERSITY NOTE-NEUROSURGERY SIGN OFF 8:19 AM HOSPITALS REPOSITORY Event: Topic: Neurosurgery Sign Off Details: Patient drains removed on 11/27. Neurosurgery will sign off. Patient can f/u as an OP w/ Dr. Tamayo 2 weeks from the operative date. Harp Action Assembler has been emailed for scheduling. Provider / Team Contact Information: Provider/Team Contact Info-Pager Number: [phone] Electronic Signatures: Rogelio Lester ( (Resident)) (Signed 27-Nov-2018 08:23) Authored: Event, Provider / Team Contact Information Last Updated: 27-Nov-2018 08:23 by Rogelio Lester ( (Resident)) DAILY PROGRESS Observed: 11/27/2018 Status: COMPLETED Source: UNIVERSITY NOTE-NEUROSURGERY 12:15 AM HOSPITALS REPOSITORY Service: Neurosurgery Subjective Data: TRISH HUNT is a 73 year old Female who is Hospital Day # 15 and POD #3 for T10-11 transpedicular decompression of tumor, T7-L2 instrumented fusion. Overnight Events: Patient had an uneventful night. Objective Data: Objective Information: T PRBPSpO2 [id number]/6794% Date/Time11/26 21: 21: 21: 21: 21:29 Range(35.5C - 37.1C ) (73 - 94 ) (18 - 20 ) (108 - 146 )/ (62 - 84 ) (93% - 100% ) As of 26-Nov-2018 18:24:00, patient is on 2 L/min of oxygen via nasal cannula. Highest temp of 37.1 C was recorded at 11/26 18:24 Pain reported at 11/26 15:45: 0 Physical Exam: Neurological: AOx3 PERRL, EOMI, FS grossly, VFF 5/5 strength in BUE 5/5 strength in BLE SILT x 4 no drift on exam incisions c/d/i Assessment and Plan: Assessment: 73F with a history of HTN, HLD, DM, and a newly diagnosed hilar mass with b/l pleural effusions s/p pleuocentesis. I have personally reviewed the images, which include a CT, which shows a T10 bipedicular lesion c/f spinal mets 11/23 s/p T10/T11 transpedicular decompression, T7-L1 instrumentation and fusion 11/24 pain well controlled, uprights hardware in psn Plan medicine primary cont drains, will follow output please D/C DEX home meds as appropriate OK for pharmacologic DVT proph will follow MRI results PT/OT SNF Signature/Cosignature/Attestation: Attending AttestationI saw and evaluated the patient. I personally obtained the almonte and critical portions of the history and physical exam or was physically present for almonte and critical portions performed by the resident/fellow. I reviewed the resident/fellows documentation and discussed the patient with the resident/fellow. I agree with the resident/fellows medical decision making as documented in the residents note. I personally evaluated the patient (as noted in the above attestation) on 27-Nov-2018 Electronic Signatures: Grazyna Lara (Resident)) (Signed 26-Nov-2018 22:19) Authored: Service, Subjective Data, Objective Data, Assessment and Plan, Signature/Cosignature/Attestation Mir Mcgarry) (Signed 27-Nov-2018 07:49) Authored: Signature/Cosignature/Attestation Co-Signer: Service, Subjective Data, Objective Data, Assessment and Plan, Signature/Cosignature/Attestation Last Updated: 27-Nov-2018 07:49 by Mir Mcgarry) DAILY PROGRESS Observed: 11/26/2018 Status: COMPLETED Source: UNIVERSITY NOTE-MEDICINE 4:51 PM HOSPITALS REPOSITORY Service: Medicine Subjective Data: TRISH HUNT is a 73 year old Female who is Hospital Day # 15 and POD #3 for T10-11 transpedicular decompression of tumor, T7-L2 instrumented fusion. When that trinidad comes out, I am going to be going all the time, I don't know how that is going to work.. 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 lying in bed in no distress. Eyes: Sclera white ENMT: Mucous membranes moist Head/Neck: Normocephalic Respiratory/Thorax: Respirations easy and unlabored with breath sounds clear bilaterally today and no cough when in room! Cardiovascular: Heart with regular rhythm, S1, S2, no appreciable murmur Gastrointestinal: Abdomen obese, non-distended, hypoactive bowel sounds, soft, non-tender Genitourinary: Trinidad to gravity drainage with bev urine Musculoskeletal: ROM intact, no joint swelling, normal strength Extremities: No cyanosis or wounds. 1-2+ edema of lower legs and feet bilaterally Neurological: Alert and oriented x3, intact senses and motor responses with 5/5 strength of arms and legs bilaterally Psychological: Appropriate mood and behavior Skin: Warm and dry, small hematoma at Right Internal Jugular site. No rashes. Long thoracic surgical incision dry and intact, well approximated with surgical brittni present. Back drains x 2 to Hemovacs with minimal serosanguineous drainage - no longer holding suction. Medication: Medications: Scheduled Medications 1. Acetaminophen: 975 mg Oral <User Schedule> 2. Levothyroxine: 50 microgram(s) Oral Daily 3. Lidocaine 5% TransDermal: 1 patch TransDermal Every 24 Hours 4. Pantoprazole: 40 mg Oral Daily 5. Polyethylene Glycol: 17 gram(s) Oral 2 Times a Day 6. Simvastatin: 20 mg Oral At Bedtime PRN Medications 1. Albuterol 2.5 mg/ 3 mL Nebulizer Soln: 3 mL Inhalation Every 2 Hours 2. Bisacodyl Rectal: 10 mg Rectal Daily 3. Cyclobenzaprine: 10 mg Oral 3 Times a Day 4. Loratadine: 10 mg Oral Daily 5. Ondansetron Injectable: 4 mg IntraVenous Push Every 6 Hours Recent Lab Results: Results: I have reviewed these laboratory results: Complete Blood Count Trending View [id number] 05:08:00 25-Nov-2018 09:49:00 White Blood Cell Count14.6 H 15.3 H Nucleated Erythrocyte Count0.0 0.0 Red Blood Cell Count3.07 L 3.04 L HGB9.2 L 9.4 L HCT29.3 L 30.5 L MCV95 100 MCHC31.4 L 30.8 L BVA285 199 RDW-CV13.3 13.5 11/15/18: FINAL CYTOLOGICAL INTERPRETATION A. FINE NEEDLE ASPIRATION 11 RS LYMPH NODE, CYTOLOGY AND CELL BLOCK: -- MALIGNANT CELLS DERIVED FROM ADENOCARCINOMA. B. FINE NEEDLE ASPIRATION 7 LYMPH NODE, CYTOLOGY AND CELL BLOCK: -- MALIGNANT CELLS DERIVED FROM ADENOCARCINOMA, SEE NOTE. Note: Immunostains performed on the cell block demonstrate tumor cells that show positive immunostaining for TTF1, and no immunostaining for p40. The morphology and immunoprofile of the tumor are consistent with origin of tumor cells from lung adenocarcinoma. DATE OF COLLECTION: 11/15/2018 SPECIAL ONCOLOGY: FINE NEEDLE ASPIRATION 11 RS LYMPH NODE DATE OF RECEIVED: 11/22/2018 REPORT DATE: 11/26/2018 RESULT: Negative for EGFR mutation. Negative for BRAF mutation. Negative for ALK fusions. Negative for ROS1 fusions. Negative for NTRK fusions. VARIANTS DETECTED: KRAS p.G12C (c.33_34delinsCT) RICTOR Amplification TP53 p.G245C (c.733G>T) TP53 p.R249S (c.747G>T) TP53 mutations are detected in trans. Radiology Results: Results: MRI T Spine w/wo Contrast [Nov 26 2018 - final] Impression: Extensive metallic artifact from the patient's orthopedic fixation hardware limits the study. There are new postoperative changes with extensive metallic artifact from posterior orthopedic fixation hardware and pedicle screws extending from T7 through L2 levels. There are suspected posterior laminectomies at the T10 and possibly T11 levels. There is again evidence of residual abnormal bone marrow signal suggestive of osseous neoplasm within a mildly collapsed T10 vertebral body. There is again evidence of mild convexity of the posterior margin of the T10 vertebral body. There has been interval decompression of the central canal at the T10 level when compared with 11/15/2018. The current MRI study demonstrates no significant central canal narrowing at the T10 level. The previously described abnormal bone marrow signal concerning for osseous metastatic disease involving the T9 and T11 vertebrae as well as the posteromedial right 11th rib is not adequately assessed on the current MRI study secondary to extensive metallic artifact from the patient's orthopedic fixation hardware. No abnormal epidural fluid collections are noted. There is again evidence of multilevel spondylosis which is similar in appearance when compared with the prior study dated 11/15/2018. The current MRI study demonstrates no significant central canal narrowing within the thoracic region. There is a right-sided pleural effusion. A small amount of atelectasis and/or infiltrate is identified within the posterior left lung base. Assessment and Plan: Comorbidities: Comorbidity: anemia Anemia: acute blood loss anemia Assessment: Trish Hunt is a 73 year old female former smoker w/ PMHx significant for HTN, Impaired Fasting Glucose, Hyperlipidemia, Peripheral Neuropathy, Hypothyroidism, GERD, Morbid Obesity and Recent Spinal Cord Stimulator Implant who is transferred to [facility] 11/12/18 from [facility] after presenting with intractable progressive back pain with SOB and found on imaging to have a lung mass with adenopathy and suspected spinal metastasis for neurosurgical evaluation and further care. . PLAN: In Shared Visit with Dr. Rocky Oquendo 1) STAGE IV METASTATIC LUNG ADENOCARCINOMA: Former smoker. Reported SOB and chest pain with deep breath at [place] ER presentation 11/11/18. A CT of the Chest showed Occlusion of the right middle bronchus with pleural effusion with suspected spinal metastasis. A diagnostic Right Thoracentesis via U/S was obtained 11/12/18 for 140 ml of fluid with fluid cytology resulting negative. MRI of the brain 11/14/18 without lesions. Pulmonology consulted and a Bronchoscopy w/ EBUS 11/15/19 with sampling of right hilar mass and subcarinal lymph node which were both positive for adenocarcinoma. Lymph node FNA Pathology showed Positive PD-L1 Expression as well. Oncology and Radiation Oncology were consulted with plan to follow up following surgical healing from thoracic metastatic decompression and fusion patient desires to do this at [facility] - await Surgical Pathology from Thoracic Decompression 11/23/18 for confirmation - schedule follow up with Oncology and Radiation Oncology at [facility] in one month 2) T10 PATHOLOGIC FRACTURE w/ CORD COMPRESSION: Presumed metastasis r/t # 1. Presented to [facility] 11/[facility]/18 with intractable progressive back pain radiating around waist in band of 2-3 weeks accompanied by SOB. Due to the pain she had the Spinal Cord Stimulator Implanted in August removed on 10/25/18 without improvement of pain. She has prior disc surgery L4-L5 several years back and has been asymptomatic from it. She does have chronic urinary urge incontinence which has come back after her spinal stimulator was recently removed. A CT Chest, Abdomen and Pelvis at [place] showed a suspected Pathologic fracture of the T10 vertebral body with canal stenosis as well as additional vertebral lesions at T8, T9, and T11 suspicious for additional metastases. An MRI of the T spine was obtained and showed the lesion was not compressing the spine but was however in close proximity to the cord, and therefore she was given Decadron with request for transfer to [facility] for Neurosurgery evaluation. Neurosurgery consulted. CT Thoracic and Lumbar Spine as well as MRI of entire spine done and on 11/23/18 she underwent a Thoracic Decompression and Fusion with back pain much improved. Post- operative thoracic x-ray done 11/26/18. She is on a DETONATOR ASSEMBLER of Hydromorphone. Hemovac with 300 ml output total recorded yesterday. Today she underwent an MRI of the Spine under Anesthesia. - await Surgical Pathology for confirmation of # 1 - continue Physical Therapy - discontinue Decadron - continue DETONATOR ASSEMBLER Hydromorphone to 0.1 mg with 10 minute lockout - change to oral dosing soon - Flexeril dosing PRN - maintain post-operative Hemovacs to self suction monitor output - maintain trinidad catheter today - discontinue in a.m. - follow up with Dr. Huber Tamayo (Neurosurgery) 15-Dec-2018 14:00 3) ACUTE BLOOD LOSS ANEMIA: Post-operative. H&H 14 & 46 at admit, decreased to 8 & 25 post-op 11/24/17 and now H&H 9 & 29 - stable post a unit of blood post-operative - check CBC in a.m. - monitor Hemovac drainage 4) HYPOXIA: Has been requiring O2 via nasal cannula. Pleural effusions present on imaging. She has had some intermittent wheezing, but none today. Uses Albuterol at home at times - oxygen at 1- 2 liters PRN - Albuterol 2.5 mg / 3 ml every 6 hours nebulized - Bronchial Hygiene tid 5) CONSTIPATION: likely r/t medication control for # 2. States take Miralax to assist - reports BM today - continue Miralax twice a day and PRN - Bisacodyl suppository daily PRN 6) IMPAIRED FASTING GLUCOSE: Denies diagnosis of Diabetes. States was told had elevated blood glucose 20 years ago with Metformin initiated as preventive. 07/2018 Hgb A1C normal. Blood glucose 101 on labs despite Decadron - hold home Metformin ER - check fasting blood glucose in a.m. with labs 7) HYPOTHYROIDISM: TSH 0.86 - continue home Levothyroxine 50 mcg daily 8) MORBID OBESITY: BMI 43 9) CODE STATUS: Re-Discussed with patient yesterday. She continues to desire full interventions at arrest, but would not desire prolonged life support - Full code 10) DVT PROPHYLAXIS: - continue Enoxaparin 40 mg subcutaneous twice a day - sequential compression devices. 11) DISCHARGE DISPOSITION: Lives with . PT recommends Skilled Care, which patient is agreeable to closer to home in [place]. Social work consulted. Family at bedside and supportive PCP: Dr. Harjinder Braswell [phone] Urology: Dr. Earnest Herrera Pharmacy: [facility] [phone] DME: Nebulizer Insurer: [employer] Medicare Family: / POA Healthcare - Robbie Hunt [phone] Dtr. / 1st Alt. POA - Annita Christiannington [phone] / [phone] Dtr. / 2nd Alt. POA - Dionne Read [phone] Follow Up: Dr. Huber Tamaoy (Neurosurgery) 15-Dec-2018 14:00 [facility] [address] [facility] Signature/Cosignature/Attestation: Provider/Team Contact Info-Pager Mriiam Carlos CNP # [id number] Electronic Signatures: Nessa Carlos (ALIGNMENT SPECIALIST-GRIEVANCE MANAGER) (Signed 26-Nov-2018 21:03) Authored: Service, Subjective Data, Objective Data, Assessment and Plan, Signature/Cosignature/Attestation Last Updated: 26-Nov-2018 21:03 by Nessa Carlos (ALIGNMENT SPECIALIST-GRIEVANCE MANAGER) DAILY PROGRESS Observed: 11/26/2018 Status: COMPLETED Source: UNIVERSITY NOTE-MEDICINE 4:48 PM HOSPITALS REPOSITORY Service: Medicine Subjective Data: TRISH HUNT is a 73 year old Female who is Hospital Day # 15 and POD #3 for T10-11 transpedicular decompression of tumor, T7-L2 instrumented fusion. I saw the patient, reviewed labs, images, medications, reports and discussed with the GRIEVANCE MANAGER. Patient was content with the progress of pain control. It becomes difficult only when she cough. Was able to sleep. Didn't like the idea of discontinuing the bladder catheter. Her good friend was present. At the time we arrived in her room she was awake, comfortable and fully engaged in conversation. Was anxious for pending anesthesia for MRI. For ~ 20 min she had no cough at all. Objective Data: Objective Information: T PRBPSpO2 [id number]/8497% Date/Time11/26 16: 16: 16: 16: 16:30 Range(35.5C - 36.2C ) (73 - 84 ) (18 - 20 ) (124 - 146 )/ (62 - 87 ) (93% - 97% ) Pain reported at 11/26 15:45: 0 Charted: 1245 mL urine Physical examination: Today's physical findings are similar to those noted/reported yesterday. Per the WHO definition of age the patient is an elderly female fully oriented in mild detectable physical. Was eupneic and no cough at all. Mouth and throat mucosa clean, moist, no ulcers or thrush. Thick supple neck, no JVD, or bruit appreciated. Supraclavicular fossa bulging. Appeared eupneic, no wheezing, fewer late inspiratory rales right lower half. Was breathing ambient air. Regular rhythm, distant S1/S2 no appreciable murmur or gallop. Abdomen large with normal bowel sounds, no tenderness or organomegaly appreciated. There are two drains coming from the back, liquid thin blood in the vacuum vessel. The devices did not seal well. The wound was exposed, metal brittni visible, no redness or discharge from the wound. Decreased pitting edema in both legs/feet (was wearing compression stockings). Bladder catheter in place, urine clear light yellow. Coherent, did appear depressed. I reviewed the most recent labs .5 and discussed with the GRIEVANCE MANAGER. WBC: 10.2 -> 16.1 -> 14.9 -> 15.3 -> 14.6 Hctr: 43.9 -> 24.6 -> 28.1 -> 30.5 -> 29.3 Platelet: 324 -> 231 -> 211 -> 199 -> 262 BUN/creatinine: 27/0.74 -> 28/0.86 -> 22/0.66 Anatomic pathology report reviewed and discussed on previous days. I reviewed the imaging, I read the report and discussed with the GRIEVANCE MANAGER. MRI spine reading pending. AP and lateral view of the thoracic spine are obtained. There is interval postsurgical change from fusion with posterior jovany and bipedicular screws of T7-L2 with screws skipping T10. Hardware is intact and without suspicious jose hardware lucency. Compression deformity of T10 is stable compared to prior exam. Underlying lesion at the level of T10 with extension to T9 and T11 are better demonstrated on CT dated 11/14/2018. No new acute fracture or spondylolisthesis. I reviewed the medications and discussed with the GRIEVANCE MANAGER. 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 Ortho team performed T10-11 transpedicular decompression of metastatic spine tumor, T7-L2 posterior instrumentation and fusion with allograft, use of intraoperative O arm, use of C arm fluoroscopy, use of ultrasound, placement of 2 subfascial drains Pain has been managed optimally with DETONATOR ASSEMBLER. Intention is to change DETONATOR ASSEMBLER to oral hydromorphone. Palliative care team is following the patient, input appreciated. Continue acetaminophen as ordered. Received 90mg of pamidronate. Ortho spine team recommended MRI of the spine. Imaging completed, reading pending. Radiation oncology to evaluate the condition. Per the recommendations the patient has to have surgery first then ~ 4 weeks later radiation treatment. Lung mass with lymphadenopathy in the mediastinum. Final report: adenocarcinoma of lung origin. Oncology has seen the patient and the biopsy report. Additional testing with the biopsy sample suggested to evaluate for the most appropriate nonsurgical treatment. Hypertension. Patient has been on losartan/HCTZ at home, Currently BP is well controlled (perhaps hydromorphone is contributing to the low BP!) Edema in lower extremities was more pronounced, she received plenty of fluid during OR. Has improved since yesterday. Anemia of blood loss. Received 1 unit of PRBC with good incrementing. 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 Mixture of ipratropium with albuterol scheduled, q6h. Continue guaifenesin. No indication for telemetry, can be discontinued. H/o incontinence with hyperreactive bladder. In past she has been on extended release oxybutynin and had pudendal nerve stimulator. Will try oxybutynin immediate release and topical estrogen. PT evaluation. Will follow closely. Electronic Signatures: Rocky Oquendo) (Signed 26-Nov-2018 17:02) Authored: Service, Subjective Data, Objective Data, Signature/Cosignature/Attestation Last Updated: 26-Nov-2018 17:02 by Rocky Oquendo) GLUCOSE-POCT Collected: 11/26/2018 Status: F Source: [facility] 3:49 PM HOSPITALS REPOSITORY TYPE CODE TESTS RESULT OUT OF RANGE REFERENCE UNITS LAB GLUP(LOINC) 74 - 99 mg/dL High 115 GLUCOSE-POCT Performed By: #### GLUPO #### [facility] [address] [place] [address] CLINICAL EVENT Observed: 11/26/2018 Status: UNK Source: [facility] NOTE-PALLIATIVE CARE 2:40 PM HOSPITALS REPOSITORY Event: Topic: Palliative care Details: Attempted follow up with patient, she was off the unit for MRI. Patient remains on DETONATOR ASSEMBLER for post-op pain. Given her past difficulty with MRIs would hesitate to discontinue the DETONATOR ASSEMBLER too soon after imaging study. Also, without the DETONATOR ASSEMBLER numbers/24h opioid requirement cannot predict a PO regimen. Would be disinclined to start long acting as pain will likely continue to improve, but patient may benefit from a scheduled short acting for a short time then transition to PRN only. Will ask on-call Palliative Care provider to follow up with patient 11/27 for DETONATOR ASSEMBLER transition. Call with questions. Provider / Team Contact Information: Provider/Team Contact Info-Pager Number: [phone] Electronic Signatures: Annette Keller) (Signed 26-Nov-2018 14:43) Authored: Event, Provider / Team Contact Information Last Updated: 26-Nov-2018 14:43 by Annette Keller MD NR T-SPINE WO/W Observed: 11/26/2018 Status: F Source: [facility] 2:10 PM HOSPITALS REPOSITORY Patient Name: TRISH HUNT STUDY: T-SPINE WO/W; 11/26/2018 2:10 pm INDICATION: Signs/Symptoms: s/p T10-T11 decompression of tumor and T7- L2 fusion, Lie Flat: Yes, Pre Med: Yes, BMI: Yes, BiPAP: No, O2: No. COMPARISON: MRI dated 11/15/2018 ACCESSION NUMBER(S): [id number] ORDERING CLINICIAN: JORDAN SAUNDERS TECHNIQUE: Sagittal STIR, sagittal T2, sagittal T1, FINDINGS: Extensive metallic artifact from the patient's orthopedic fixation hardware limits the study. There are new postoperative changes with extensive metallic artifact from posterior orthopedic fixation hardware and pedicle screws extending from T7 through L2 levels. There are suspected posterior laminectomies at the T10 and possibly T11 levels. There is again evidence of residual abnormal bone marrow signal suggestive of osseous neoplasm within a mildly collapsed T10 vertebral body. There is again evidence of mild convexity of the posterior margin of the T10 vertebral body. There has been interval decompression of the central canal at the T10 level when compared with 11/15/2018. The current MRI study demonstrates no significant central canal narrowing at the T10 level. The previously described abnormal bone marrow signal concerning for osseous metastatic disease involving the T9 and T11 vertebrae as well as the posteromedial right 11th rib is not adequately assessed on the current MRI study secondary to extensive metallic artifact from the patient's orthopedic fixation hardware. No abnormal epidural fluid collections are noted. There is again evidence of multilevel spondylosis which is similar in appearance when compared with the prior study dated 11/15/2018. The current MRI study demonstrates no significant central canal narrowing within the thoracic region. There is a right-sided pleural effusion. A small amount of atelectasis and/or infiltrate is identified within the posterior left lung base. IMPRESSION: Extensive metallic artifact from the patient's orthopedic fixation hardware limits the study. There are new postoperative changes with extensive metallic artifact from posterior orthopedic fixation hardware and pedicle screws extending from T7 through L2 levels. There are suspected posterior laminectomies at the T10 and possibly T11 levels. There is again evidence of residual abnormal bone marrow signal suggestive of osseous neoplasm within a mildly collapsed T10 vertebral body. There is again evidence of mild convexity of the posterior margin of the T10 vertebral body. There has been interval decompression of the central canal at the T10 level when compared with 11/15/2018. The current MRI study demonstrates no significant central canal narrowing at the T10 level. The previously described abnormal bone marrow signal concerning for osseous metastatic disease involving the T9 and T11 vertebrae as well as the posteromedial right 11th rib is not adequately assessed on the current MRI study secondary to extensive metallic artifact from the patient's orthopedic fixation hardware. No abnormal epidural fluid collections are noted. There is again evidence of multilevel spondylosis which is similar in appearance when compared with the prior study dated 11/15/2018. The current MRI study demonstrates no significant central canal narrowing within the thoracic region. There is a right-sided pleural effusion. A small amount of atelectasis and/or infiltrate is identified within the posterior left lung base. The study was interpreted at [facility] [place]. Electronically signed by: ADRIANA DIETZ MD CBC Collected: 11/26/2018 Status: F Source: [facility] 5:08 AM HOSPITALS REPOSITORY TYPE CODE TESTS RESULT OUT OF REFERENCE UNITS RANGE LAB WBCR(LOINC 4.4 - 11.3 x10E9/L ) WBC High 14.6 LAB NRBC(LOINC 0.0-0.0 /100 WBC ) NUCLEATED RBC 0.0 LAB RBCCT(LOIN 4.00 - 5.20 x10E12/L C) Low RBC 3.07 LAB HGB(LOINC) 12.0 - 16.0 g/dL Low HGB 9.2 LAB HCT(LOINC) 36.0 - 46.0 % Low HCT 29.3 LAB MCV(LOINC) 80 - 100 fL MCV 95 LAB MCHC2(LOIN 32.0 - 36.0 g/dL C) Low MCHC 31.4 LAB PLTCT(LOIN 150 - 450 x10E9/L C) PLT 262 LAB RDWCV(LOIN 11.5 - 14.5 % C) RDW-CV 13.3 Performed By: #### CBC #### [facility] [address] [place] [address] DAILY PROGRESS Observed: 11/26/2018 Status: COMPLETED Source: [facility]-NEUROSURGERY 12:29 AM HOSPITALS REPOSITORY Service: Neurosurgery Subjective Data: TRISH HUNT is a 73 year old Female who is Hospital Day # 14 and POD #2 for T10-11 transpedicular decompression of tumor, T7-L2 instrumented fusion. Overnight Events: Patient had an uneventful night. Objective Data: Objective Information: T PRBPSpO2 [id number]/7996% Date/Time11/25 14: 14: 14: 14: 14:24 Range(36.1C - 36.7C ) (75 - 101 ) (18 - 18 ) (112 - 133 )/ (58 - 79 ) (94% - 98% ) Pain reported at 11/25 8:40: 8 Physical Exam: Neurological: AOx3 PERRL, EOMI, FS grossly, VFF 5/5 strength in BUE 5/5 strength in BLE SILT x 4 no drift on exam incisions c/d/i Assessment and Plan: Assessment: 73F with a history of HTN, HLD, DM, and a newly diagnosed hilar mass with b/l pleural effusions s/p pleuocentesis. I have personally reviewed the images, which include a CT, which shows a T10 bipedicular lesion c/f spinal mets 11/23 s/p T10/T11 transpedicular decompression, T7-L1 instrumentation and fusion 11/24 pain well controlled, uprights hardware in psn Plan medicine primary cont drains, will follow output please D/C DEX home meds as appropriate OK for pharmacologic DVT proph will follow MRI results PT/OT SNF Signature/Cosignature/Attestation: Provider/Team Contact Info-Pager [phone] Attending AttestationI saw and evaluated the patient. I personally obtained the almonte and critical portions of the history and physical exam or was physically present for almonte and critical portions performed by the resident/fellow. I reviewed the resident/fellows documentation and discussed the patient with the resident/fellow. I agree with the resident/fellows medical decision making as documented in the residents note. I personally evaluated the patient (as noted in the above attestation) on 26-Nov-2018 Electronic Signatures: Diane Ruiz (Resident)) (Signed 25-Nov-2018 17:31) Authored: Service, Subjective Data, Objective Data, Assessment and Plan, Signature/Cosignature/Attestation Huber Tamayo) (Signed 27-Nov-2018 12:36) Authored: Signature/Cosignature/Attestation Co-Signer: Service, Subjective Data, Objective Data, Assessment and Plan, Signature/Cosignature/Attestation Grazyna Lara (Resident)) (Signed 26-Nov-2018 07:26) Authored: Assessment and Plan Last Updated: 27-Nov-2018 12:36 by Huber Tamayo) DAILY PROGRESS Observed: 11/25/2018 Status: COMPLETED Source: [facility]-MEDICINE 3:47 PM HOSPITALS REPOSITORY Service: Medicine Subjective Data: TRISH HUNT is a 73 year old Female who is Hospital Day # 14 and POD #2 for T10-11 transpedicular decompression of tumor, T7-L2 instrumented fusion. The pain I am having now is nothing. This pain I'm having now today is surgical pain. I know that. Overnight Events: Patient had an uneventful night. Additional Information: Reports decreased pain which she rates a 3 at rest and increasing with movement. Denies shortness of breath. Objective Data: Objective Information: MEDICAL / SURGICAL HISTORY: - Hypertension - Impaired Fasting Glucose - Hyperlipidemia - Hypothyroidism - GERD - Peripheral Neuropathy - Morbid Obesity - Overactive Bladder * Spinal Cord Stimulator Implantation 08/2018 (removed 11/02) - Tonsillectomy - Hemorrhoidectomy - Cholecystectomy - L4-L5 Decompression 1999 T PRBPSpO2 [id number]/7996% Date/Time11/25 14: 14: 14: 14: 14:24 Range(36.1C - 36.7C ) (75 - 101 ) (18 - 18 ) (112 - 133 )/ (58 - 79 ) (94% - 98% ) Pain reported at 11/25 8:40: 8 Physical Exam: Constitutional: Alert and oriented. lying in bed in no distress. Eyes: Sclera white ENMT: Mucous membranes moist Head/Neck: Normocephalic Respiratory/Thorax: Occasional moist non-productive cough. Respirations easy and unlabored with breath sounds with bibasilar rales, right > left. Cardiovascular: Heart with regular rhythm, S1, S2, no appreciable murmur Gastrointestinal: Abdomen obese, non-distended, hypoactive bowel sounds, soft, non-tender Musculoskeletal: ROM intact, no joint swelling, normal strength Extremities: No cyanosis or wounds. 1-2+ edema of lower legs and feet bilaterally Neurological: Alert and oriented x3, intact senses and motor responses with 5/5 strength of arms and legs bilaterally Psychological: Appropriate mood and behavior Skin: Warm and dry, small hematoma at Right Internal Jugular site. No rashes. Long thoracic surgical incision dry and intact, well approximated with surgical brittni present. Back drains x 2 to Hemovacs with serosanguineous drainage. Medication: Medications: Continuous Medications 1. HYDROmorphone DETONATOR ASSEMBLER 25 mg/ NaCL 0.9% 50 mL: 25 mg IV DETONATOR ASSEMBLER <Continuous> Scheduled Medications 1. Acetaminophen: 975 mg Oral Every 8 Hours 2. Albuterol 2.5 mg/ 3 mL Nebulizer Soln: 3 mL Inhalation Once 3. Cyclobenzaprine: 10 mg Oral 3 Times a Day 4. Dexamethasone: 2 mg Oral <User Schedule> 5. Enoxaparin SubCutaneous: 40 mg SubCutaneous Every 12 Hours 6. Fleet Adult (Sodium Phosphate) Rectal: 1 enema Rectal Once 7. Gadobenate Dimeglumine (MultiHance-Radiology Contrast): 23.96 mL IntraVenous Push Once 8. guaiFENesin Extended Release: 600 mg Oral Every 12 Hours 9. Levothyroxine: 50 microgram(s) Oral Daily 10. Lidocaine 5% TransDermal: 1 patch TransDermal Every 24 Hours 11. Pantoprazole Injectable: 40 mg IntraVenous Push Every 24 Hours 12. Polyethylene Glycol: 17 gram(s) Oral 2 Times a Day 13. Simvastatin: 20 mg Oral At Bedtime PRN Medications 1. Albuterol 2.5 mg/ 3 mL Nebulizer Soln: 3 mL Inhalation Every 2 Hours 2. Bisacodyl Rectal: 10 mg Rectal Daily 3. diphenhydrAMINE Injectable: 25 mg IntraVenous Push Every 4 Hours 4. Loratadine: 10 mg Oral Daily 5. Naloxone Injectable: 0.2 mg IntraVenous Push Once 6. Promethazine IV Piggy Back: 12.5 mg IntraVenous Piggyback Every 6 Hours Recent Lab Results: Results: I have reviewed these laboratory results: Complete Blood Count Trending View [id number] 09:49:00 24-Nov-2018 09:32:00 White Blood Cell Count15.3 H 14.9 H Nucleated Erythrocyte Count0.0 0.0 Red Blood Cell Count3.04 L 2.92 L HGB9.4 L 8.9 L HCT30.5 L 28.1 L TZW909 96 MCHC30.8 L 31.7 L HHK735 211 RDW-CV13.5 13.2 Renal Function Panel Trending View [id number] 09:49:00 24-Nov-2018 06:10:00 Glucose, Cusoe363 H 99 NA140 141 K4.1 4.0 CL106 105 Bicarbonate, Serum24 25 Anion Gap, Serum14 15 BUN22 25 H CREAT0.66 0.86 GFR-Non >60 >60 GFR->60 >60 Calcium, Serum8.5 L 8.3 L Phosphorus, Serum3.2 4.7 ALB3.1 L 3.0 L FINE NEEDLE ASPIRATION 11 RS LYMPH NODE Accession Number: [id number] Special Oncology Report Date Ordered: 11/22/2018 Status: Signed Out Date Complete: 11/22/2018 Date Reported: 11/22/2018 Addendum Diagnosis PD-L1 22C3 by Immunohistochemistry with Interpretation, pembrolizumab (KEYTRUDA) Surgical block used: B1 Interpretation: HIGH EXPRESSION Tumor Proportion Score (TPS): 75% Radiology Results: Results: Xray Thoracic Spine Min 4 View [Nov 24 2018 - final] Impression: 1. Interval postsurgical change from fusion of T7-L2 with intact hardware. Stable appearance of pathologic compression fracture of T10. Underlying mass and its extension is better appreciated on CT dated 11/14/2018. Please refer to that report for further details. Assessment and Plan: Comorbidities: Comorbidity: anemia Anemia: acute blood loss anemia Assessment: - Bronchial Hygiene three times a dayee times a day old female former smoker w/ PMHx significant for HTN, Impaired Fasting Glucose, Hyperlipidemia, Peripheral Neuropathy, Hypothyroidism, GERD, Morbid Obesity and Recent Spinal Cord Stimulator Implant who is transferred to [facility] 11/12/18 from [facility] after presenting with intractable progressive back pain with SOB and found on imaging to have a lung mass with adenopathy and suspected spinal metastasis for neurosurgical evaluation and further care. . PLAN: In Shared Visit with Dr. Rocky Oquendo Trish Hunt is a 73 year old female former smoker w/ PMHx significant for HTN, Impaired Fasting Glucose, Hyperlipidemia, Peripheral Neuropathy, Hypothyroidism, GERD, Morbid Obesity and Recent Spinal Cord Stimulator Implant who is transferred to [facility] 11/12/18 from [facility] after presenting with intractable progressive back pain with SOB and found on imaging to have a lung mass with adenopathy and suspected spinal metastasis for neurosurgical evaluation and further care. . 1)STAGE IV METASTATIC LUNG ADENOCARCINOMA: Former smoker. Reported SOB and chest pain with deep breath at [place] ER presentation 11/11/18. A CT of the Chest showed Occlusion of the right middle bronchus with pleural effusion with suspected spinal metastasis. A diagnostic Right Thoracentesis via U/S was obtained 11/12/18 for 140 ml of fluid with fluid cytology resulting negative. MRI of the brain 11/14/18 without lesions. Pulmonology consulted and a Bronchoscopy w/ EBUS 11/15/19 with sampling of right hilar mass and subcarinal lymph node which were both positive for adenocarcinoma. Lymph node FNA Pathology showed Positive PD-L1 Expression as well. Oncology and Radiation Oncology were consulted with plan to follow up following surgical healing from thoracic metastatic decompression and fusion patient desires to do this at [facility] - await Surgical Pathology from Thoracic Decompression 11/23/18 for confirmation - schedule follow up with Oncology and Radiation Oncology at [facility] in one month 2) T10 PATHOLOGIC FRACTURE: Presumed metastasis r/t # 1. Presented to [facility] 11/11/18 with intractable progressive back pain radiating around waist in band of 2-3 weeks accompanied by SOB. Due to the pain she had the Spinal Cord Stimulator Implanted in August removed on 10/25/18 without improvement of pain. She has prior disc surgery L4-L5 several years back and has been asymptomatic from it. She does have chronic urinary urge incontinence which has come back after her spinal stimulator was recently removed. A CT Chest, Abdomen and Pelvis at [place] showed a suspected Pathologic fracture of the T10 vertebral body with canal stenosis as well as additional vertebral lesions at T8, T9, and T11 suspicious for additional metastases. An MRI of the T spine was obtained and showed the lesion was not compressing the spine but was however in close proximity to the cord, and therefore she was given Decadron with request for transfer to [facility] for Neurosurgery evaluation. Neurosurgery consulted and did find evidence of cord compression. CT Thoracic and Lumbar Spine as well as MRI of entire spine done and on 11/23/18 she underwent a Thoracic Decompression and Fusion with back pain much improved. Post-operative thoracic x-ray done yesterday. She is on a DETONATOR ASSEMBLER of Hydromorphone post-operatively with ~ 7 mg utilized in a 22 hours period. Hemovac with 450 ml output total recorded yesterday. - await Surgical Pathology for confirmation of # 1 - continue Physical Therapy - decrease Decadron to 4 mg daily with plan to wean off - decrease DETONATOR ASSEMBLER Hydromorphone to 0.1 mg with 10 minute lockout - change flexeril dosing to PRN - MRI of T Spine w / w/o contrast tomorrow under General Anesthesia NPO after Midnight - maintain post-operative Hemovacs to self suction monitor output - maintain trinidad catheter today - follow up with Dr. Huber Tamayo (Neurosurgery) 15-Dec-2018 14:00 3) ACUTE BLOOD LOSS ANEMIA: Post-operative. H&H 14 & 46 at admit, decreased to 8 & 25 post-op 11/24/17 and now H&H 9 & 31 - stable post a unit of blood post-operative - check CBC in a.m. - monitor Hemovac drainage 4) HYPOXIA: Has been requiring O2 via nasal cannula. Pleural effusions present on imaging. She has had some intermittent wheezing, but none today. Uses Albuterol at home at times - oxygen at 1- 2 liters PRN - Albuterol 2.5 mg / 3 ml every 6 hours nebulized - Bronchial Hygiene tid 5) CONSTIPATION: likely r/t medication control for # 2. States take Miralax to assist - reports BM today - continue Miralax twice a day and PRN - Bisacodyl suppository daily PRN 6) IMPAIRED FASTING GLUCOSE: Denies diagnosis of Diabetes. States was told had elevated blood glucose 20 years ago with Metformin initiated as preventive. 07/2018 Hgb A1C normal. Blood glucose 101 on labs despite Decadron - hold home Metformin ER - check fasting blood glucose in a.m. with labs 7) HYPOTHYROIDISM: TSH 0.86 - continue home Levothyroxine 50 mcg daily 8) MORBID OBESITY: BMI 43 9) CODE STATUS: Re-Discussed with patient today. She continues to desire full interventions at arrest, but would not desire prolonged life support - Full code 10) DVT PROPHYLAXIS: - resume Enoxaparin 40 mg subcutaneous twice a day - sequential compression devices. 11) DISCHARGE DISPOSITION: Lives with . PT recommends Skilled Care, which patient is agreeable to closer to home in [place]. Social work consulted. Family at bedside and supportive PCP: Dr. Harjinder Braswell [phone] Urology: Dr. Earnest Herrera Pharmacy: [facility] [phone] DME: Nebulizer Insurer: [employer] Medicare Family: / POA Healthcare - Robbie Hunt [phone] Dtr. / 1st Alt. POA - Annita Sin [phone] / [phone] Dtr. / 2nd Alt. POA - Dionne Read [phone] Follow Up: Dr. Huber Tamayo (Neurosurgery) 15-Dec-2018 14:00 [facility] [address], [address] [facility] Signature/Cosignature/Attestation: Provider/Team Contact Info-Pager Miriam Carlos CNP # [id number] Electronic Signatures: Nessa Carlos (ALIGNMENT SPECIALIST-GRIEVANCE MANAGER) (Signed 26-Nov-2018 00:54) Authored: Service, Subjective Data, Objective Data, Assessment and Plan, Signature/Cosignature/Attestation Last Updated: 26-Nov-2018 00:54 by Nessa Carlos (ALIGNMENT SPECIALIST-GRIEVANCE MANAGER) DAILY PROGRESS Observed: 11/25/2018 Status: COMPLETED Source: [facility] NOTE-MEDICINE 3:29 PM HOSPITALS REPOSITORY Service: Medicine Subjective Data: TRISH HUNT is a 73 year old Female who is Hospital Day # 14 and POD #2 for T10-11 transpedicular decompression of tumor, T7-L2 instrumented fusion. I saw the patient, reviewed labs, images, medications, reports and discussed with the GRIEVANCE MANAGER. No fever or desaturation reported past 24h. She has been doing quite well with the DETONATOR ASSEMBLER (for ~ 20h she used 7.5mg hydromorphone). Rates the pain ~ 3 at rest, when she coughs it increases to ~6. Her daughter was present, she stated that the patient slept uninterrupted for ~ 5 hours. Has been coughing, more sputum coming up. At the time we arrived in her room she was awake and fully engaged in conversation. Objective Data: Objective Information: T PRBPSpO2 [id number]/7996% Date/Time11/25 14: 14: 14: 14: 14:24 Range(36.1C - 36.7C ) (75 - 101 ) (18 - 18 ) (112 - 133 )/ (58 - 79 ) (94% - 98% ) Pain reported at 11/25 8:40: 8 Charted: 3550 mL urine Physical examination: Per the WHO definition of age the patient is an elderly female fully oriented in mild detectable physical. Was less dyspnoic still coughing wet. Maintained good conversation. Mouth and throat mucosa clean, moist, no ulcers or thrush. Thick supple neck, no JVD, or bruit appreciated. Supraclavicular fossa bulging. Appeared eupneic with bigger tidal volumes, no wheezing, no rales over left lung; right base had late inspiratory rales. Anteriorly coarse rales were audible. Regular rhythm, distant S1/S2 no appreciable murmur or gallop. Abdomen large with normal bowel sounds, no tenderness or organomegaly appreciated. There are two drains coming from the back, liquid thin blood in the vacuum vessel. The wound was exposed, metal brittni visible, no redness or discharge from the wound. Decreased pitting edema in both legs/feet (was wearing compression stockings). Bladder catheter in place, urine clear light yellow. Neuro exam showed no focal deficit. Motion in bed triggers back pain, she avoids turning. Coherent, did appear depressed. The rest of today's physical findings are similar to those noted/reported yesterday. I reviewed the most recent labs 30.5 and discussed with the GRIEVANCE MANAGER. WBC: 10.2 -> 16.1 -> 14.9 -> 15.3 Hctr: 43.9 -> 24.6 -> 28.1 -> 30.5 Platelet: 324 -> 231 -> 211 -> 199 BUN/creatinine: 27/0.74 -> 28/0.86 -> 22/0.66 Anatomic pathology report reviewed and discussed on previous days. I reviewed the imaging, I read the report and discussed with the GRIEVANCE MANAGER. AP and lateral view of the thoracic spine are obtained. There is interval postsurgical change from fusion with posterior jovany and bipedicular screws of T7-L2 with screws skipping T10. Hardware is intact and without suspicious jose hardware lucency. Compression deformity of T10 is stable compared to prior exam. Underlying lesion at the level of T10 with extension to T9 and T11 are better demonstrated on CT dated 11/14/2018. No new acute fracture or spondylolisthesis. I reviewed the medications and discussed with the GRIEVANCE MANAGER. 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 Ortho team performed: T10-11 transpedicular decompression of metastatic spine tumor, T7-L2 posterior instrumentation and fusion with allograft, use of intraoperative O arm, use of C arm fluoroscopy, use of ultrasound, placement of 2 subfascial drains Pain has been managed optimally with DETONATOR ASSEMBLER. Will change the lockout time to 10min, patient was agreeable. Palliative care team is following the patient, input appreciated. Continue acetaminophen as ordered. Given a dose of pamidronate 90mg. Ortho spine team recommended MRI of the spine. Patient is claustrophobic, general anesthesia needed. Examination pending on the schedule of anesthesiology team. Radiation oncology to evaluate the condition. Per the recommendations the patient has to have surgery first then ~ 4 weeks later radiation treatment. Lung mass with lymphadenopathy in the mediastinum. Final report: adenocarcinoma of lung origin. Oncology has seen the patient and the biopsy report. Additional testing with the biopsy sample suggested to evaluate for the most appropriate nonsurgical treatment. Hypertension. Patient has been on losartan/HCTZ at home, Currently BP is well controlled (perhaps hydromorphone is contributing to the low BP!) Edema in lower extremities was more pronounced, she received plenty of fluid during OR. Has improved since yesterday. Anemia of blood loss. Received 1 unit of PRBC with good incrementing. COPD with wet cough. Mixture of ipratropium with albuterol scheduled, q6h. Continue guaifenesin. Change pantoprazole to oral route. PT evaluation. Will follow closely. Assessment and Plan: Comorbidities: Comorbidity: anemia Anemia: acute blood loss anemia Electronic Signatures: Rocky Oquendo) (Signed 25-Nov-2018 15:48) Authored: Service, Subjective Data, Objective Data, Assessment and Plan, Signature/Cosignature/Attestation Last Updated: 25-Nov-2018 15:48 by Rocky Oquendo) DAILY PROGRESS Observed: 11/25/2018 Status: COMPLETED Source: [facility]-PALLIATIVE CARE 2:43 PM HOSPITALS REPOSITORY Consult Type: subsequent visit/care Service: Palliative Care Subjective Data: TRISH HUNT is a 73 year old Female who is Hospital Day # 14 and POD #2 for T10-11 transpedicular decompression of tumor, T7-L2 instrumented fusion. Additional Information: No acute events overnight. Ms. Hunt endorses that her pain continues to be well controlled, although small movements within and to/from bed are uncomfortable. She has not required any phenergan for nausea since surgery. 10.3mg IV dilaudid used over ~23 hrs (11/24 at 09:09 to 11/25 at 07:52) = 206 OME -decreasing requirement from previous day Objective Data: Objective Information: T PRBPSpO2 [id number]/6595% Date/Time11/25 10: 10: 10: 10: 10:34 Range(36.1C - 36.6C ) (75 - 82 ) (18 - 18 ) (112 - 133 )/ (58 - 76 ) (94% - 98% ) Pain reported at 11/24 21:30: 3 Physical Exam: Constitutional: Overweight woman, no acute distress, appears comfortable, not lethargic Eyes: pupils 2mm bilaterally, anicteric ENMT: mucus membranes moist Respiratory/Thorax: coarse sounds on auscultation bilaterally, no rhonchi/rales/wheezes Cardiovascular: regular rate and rhythm without murmurs/rubs/gallops, s1/s2 Gastrointestinal: soft, no masses appreciated. some bowel sounds. nontender to light or deep palpation even over RUQ or R costal margin Genitourinary: trinidad catheter in place draining clear urine Extremities: warm, well perfused, +1 pitting edema bilaterally Neurological: alert, oriented Psychological: pleasant, conversant Skin: anicteric, brusing on posterior R arm Medication: Medications: Continuous Medications 1. HYDROmorphone DETONATOR ASSEMBLER 25 mg/ NaCL 0.9% 50 mL: 25 mg IV DETONATOR ASSEMBLER <Continuous> Scheduled Medications 1. Acetaminophen: 975 mg Oral Every 8 Hours 2. Albuterol 2.5 mg/ 3 mL Nebulizer Soln: 3 mL Inhalation Once 3. Cyclobenzaprine: 10 mg Oral 3 Times a Day 4. Fleet Adult (Sodium Phosphate) Rectal: 1 enema Rectal Once 5. Gadobenate Dimeglumine (MultiHance-Radiology Contrast): 23.96 mL IntraVenous Push Once 6. guaiFENesin Extended Release: 600 mg Oral Every 12 Hours 7. Levothyroxine: 50 microgram(s) Oral Daily 8. Lidocaine 5% TransDermal: 1 patch TransDermal Every 24 Hours 9. Pantoprazole Injectable: 40 mg IntraVenous Push Every 24 Hours 10. Polyethylene Glycol: 17 gram(s) Oral 2 Times a Day 11. Simvastatin: 20 mg Oral At Bedtime PRN Medications 1. Albuterol 2.5 mg/ 3 mL Nebulizer Soln: 3 mL Inhalation Every 2 Hours 2. Bisacodyl Rectal: 10 mg Rectal Daily 3. diphenhydrAMINE Injectable: 25 mg IntraVenous Push Every 4 Hours 4. Loratadine: 10 mg Oral Daily 5. Naloxone Injectable: 0.2 mg IntraVenous Push Once 6. Promethazine IV Piggy Back: 12.5 mg IntraVenous Piggyback Every 6 Hours Recent Lab Results: Results: I have reviewed these laboratory results: Complete Blood Count 25-Nov-2018 09:49:00 ResultValue White Blood Cell Count 15.3 H Nucleated Erythrocyte Count 0.0 Red Blood Cell Count 3.04 L HGB 9.4 L HCT 30.5 L MCV 100 MCHC 30.8 L PLT 199 RDW-CV 13.5 Renal Function Panel 25-Nov-2018 09:49:00 ResultValue Glucose, Serum 101 H NA 140 K 4.1 CL 106 Bicarbonate, Serum 24 Anion Gap, Serum 14 BUN 22 CREAT 0.66 GFR-Non >60 GFR- >60 Calcium, Serum 8.5 L Phosphorus, Serum 3.2 ALB 3.1 L Assessment and Plan: Assessment: Ms. Hunt is a 73 year old F with history of HTN, DM2 with morbid obesity, hypothyroidism, HLD, presenting as transfer from [facility] for back pain due to spinal lesions, highly suspicious for lung cancer metastases in setting of recent workup. S/p decompression and fixation of T-L spine on 11/23. Palliative care was consulted for pain management. #Pain in R flank, likely related to bony metastases #Bony pain, s/p neurosurgical decompression and fixation on 11/23, and pamidronate x1 on 11/24 - continue dexamethasone 4mg twice a day for bony pain (8am/4pm dosing to minimize side effect profile) - wean per neurosurgery recs in next two days (recommended 2mg dex twice a day today) --> continue PPI while on steroids #Further pain coverage. Minimal response with morphine and patient's pain control needs not yet fully established. Good relief - continue hydromorphone DETONATOR ASSEMBLER (0.1mg q6min dosing) especially during perioperative period with fluctuating pain medication requirements - will reevaluate within next several days - continue bowel regimen with miralax daily to avoid constipation #Code status/living will: in paper chart - patient expressed desire to be DNR/DNI, updated in EMR - please reinstate DNAR order now that patient has returned from surgery Thank you for allowing us to participate in the care of this patient. We will continue to follow. Please contact us for any questions via [employer] or pager [phone]. Nessa Mercado Internal Medicine PGY-1 Signature/Cosignature/Attestation: Attending AttestghazalaI saw and evaluated the patient. I personally obtained the almonte and critical portions of the history and physical exam or was physically present for almonte and critical portions performed by the resident/fellow. I reviewed the resident/fellows documentation and discussed the patient with the resident/fellow. I agree with the resident/fellows medical decision making as documented in the residents note. I personally evaluated the patient (as noted in the above attestation) on 25-Nov-2018 Comments/ Additional Findings DETONATOR ASSEMBLER interrogated at 1623. 24h use: 8.7 mg with 87/89 dose/demand; 12h use 3.9 mg with 39/39 dose/demand. Opioid need continues to decrease post-op. Should be able to transition to non-DETONATOR ASSEMBLER based or oral regimen soon. Call with questions. [id number] Electronic Signatures: Nessa Mercado (Resident)) (Signed 25-Nov-2018 14:54) Authored: Service, Subjective Data, Objective Data, Assessment and Plan, Signature/Cosignature/Attestation Annette Keller) (Signed 26-Nov-2018 10:06) Authored: Service, Signature/Cosignature/Attestation Co-Signer: Service, Subjective Data, Objective Data, Assessment and Plan, Signature/Cosignature/Attestation Last Updated: 26-Nov-2018 10:06 by Annette Keller) CBC Collected: 11/25/2018 Status: F Source: [facility] 9:49 AM HOSPITALS REPOSITORY TYPE CODE TESTS RESULT OUT OF REFERENCE UNITS RANGE LAB WBCR(LOINC 4.4 - 11.3 x10E9/L ) WBC High 15.3 LAB NRBC(LOINC 0.0-0.0 /100 WBC ) NUCLEATED RBC 0.0 LAB RBCCT(LOIN 4.00 - 5.20 x10E12/L C) Low RBC 3.04 LAB HGB(LOINC) 12.0 - 16.0 g/dL Low HGB 9.4 LAB HCT(LOINC) 36.0 - 46.0 % Low HCT 30.5 LAB MCV(LOINC) 80 - 100 fL MCV 100 LAB MCHC2(LOIN 32.0 - 36.0 g/dL C) Low MCHC 30.8 LAB PLTCT(LOIN 150 - 450 x10E9/L C) PLT 199 LAB RDWCV(LOIN 11.5 - 14.5 % C) RDW-CV 13.5 Performed By: #### CBC #### [facility] [id number] [place] [address] RENAL FUNCTION PANEL Collected: 11/25/2018 Status: F Source: [place] 9:49 AM HOSPITALS REPOSITORY TYPE CODE TESTS RESULT OUT OF REFERENCE UNITS RANGE LAB GLU(LOINC) 74 - 99 mg/dL GLUCOSE High 101 LAB SOD(LOINC) 136 - 145 mmol/L SODIUM 140 LAB K(LOINC) 3.5 - 5.3 mmol/L POTASSIUM 4.1 LAB CHLOR(LOIN 98 - 107 mmol/L C) CHLORIDE 106 LAB BIC(LOINC) 21 - 32 mmol/L BICARBONATE 24 LAB ANGAP(LOIN 10 - 20 mmol/L C) ANION GAP 14 LAB UREA(LOINC 6 - 23 mg/dL ) UREA NITROGEN 22 LAB CREA(LOINC 0.50 - 1.05 mg/dL ) CREATININE 0.66 LAB GFRFN(LOIN >60 mL/min/1.7 C) 3m2 GFR-NON AM. >60 LAB GFRAA(LOIN >60 mL/min/1.7 C) 3m2 GFR- AM. >60 Result Comment: CALCULATIONS OF ESTIMATED GFR ARE PERFORMED USING THE MDRD STUDY EQUATION FOR THE IDMS-TRACEABLE CREATININE METHODS. CLIN CHEM 2007;53:766-72 LAB CA(LOINC) 8.6 - 10.6 mg/dL CALCIUM Low 8.5 LAB PHOS(LOINC) 2.5 - 4.9 mg/dL PHOSPHORUS 3.2 Result Comment: The performance characteristics of phosphorus testing in heparinized plasma have been validated by the individual laboratory site where testing is performed. Testing on heparinized plasma is not approved by the FDA; however, such approval is not necessary. LAB ALB(LOINC) 3.4 - 5.0 g/dL Low ALBUMIN 3.1 Performed By: #### RENAL #### [facility] [id number] [place] [address] DAILY PROGRESS Observed: 11/25/2018 Status: COMPLETED Source: [facility] NOTE-NEUROSURGERY 12:59 AM HOSPITALS REPOSITORY Service: Neurosurgery Subjective Data: TRISH HUNT is a 73 year old Female who is Hospital Day # 13 and POD #1 for T10-11 transpedicular decompression of tumor, T7-L2 instrumented fusion. Objective Data: Objective Information: T PRBPSpO2 [id number]/5894% Date/Time11/24 21:501/9 21: 21: 21: 21:50 Range(36.4C - 37.1C ) (65 - 84 ) (18 - 20 ) (72 - 133 )/ (42 - 69 ) (91% - 94% ) Highest temp of 37.1 C was recorded at 11/24 1:20 Pain reported at 11/24 9:56: 3 Physical Exam: Neurological: ox3 5/5 bue 5/5 ble sensation intact Assessment and Plan: Assessment: 73F with a history of HTN, HLD, DM, and a newly diagnosed hilar mass with b/l pleural effusions s/p pleuocentesis. I have personally reviewed the images, which include a CT, which shows a T10 bipedicular lesion c/f spinal mets 11/23 s/p T10/T11 transpedicular decompression, T7-L1 instrumentation and fusion 11/24 pain well controlled, uprights hardware in psn Plan medicine primary cont drains please wean dex to 2BID recommend starting SQH recommend MRI T spine wo today PT/OT SCIP Measures: Urinary Catheter Removed Post-Op Day 2: yes Patient on Beta James Prior to Admission: no Prophylactic antibiotics scheduled to be discontinued with 24 hr of anesthesia end time (48 hr for cardiac surgery): yes Signature/Cosignature/Attestation: Attending AttestationI reviewed the resident/fellows documentation and discussed the patient with the resident/fellow. I agree with the resident/fellows medical decision making as documented in the residents note. Electronic Signatures: Huber Tamayo) (Signed 25-Nov-2018 14:38) Authored: Signature/Cosignature/Attestation Co-Signer: Service, Subjective Data, Objective Data, Assessment and Plan, SCIP Measures, Signature/Cosignature/Attestation Grazyna Lara (Resident)) (Signed 25-Nov-2018 06:54) Authored: Service, Subjective Data, Objective Data, Assessment and Plan, SCIP Measures, Signature/Cosignature/Attestation Last Updated: 25-Nov-2018 14:38 by Huber Tamayo) DAILY PROGRESS Observed: 11/24/2018 Status: COMPLETED Source: [facility]-PALLIATIVE CARE 2:36 PM HOSPITALS REPOSITORY Consult Type: subsequent visit/care Service: Palliative Care Subjective Data: TRISH HUNT is a 73 year old Female who is Hospital Day # 13 and POD #1 for T10-11 transpedicular decompression of tumor, T7-L2 instrumented fusion. Additional Information: Patient went for surgery yesterday (T10-11 transpedicular decompression of tumor, T7-L2 fusion) and feels great today. She endorses that her pain is nearly gone now and is well controlled with her DETONATOR ASSEMBLER, and that her nausea has been under control as well. Team changed DETONATOR ASSEMBLER to hydromorphone 0.1mg q6min PRN (from 0.2mg q10min). No other concerns including constipation or urinary discomfort. 7.3mg IV dilaudid = 146 OME over 12 hours on DETONATOR ASSEMBLER (11/23 21:46 to 11/24 09:09) in immediate postop period No doses of phenergan since 11/22 Objective Data: Objective Information: T PRBPSpO2 [id number]/6994% Date/Time11/24 10: 10: 10: 10: 10:15 Range(36.4C - 37.1C ) (65 - 78 ) (18 - 20 ) (72 - 110 )/ (42 - 69 ) (91% - 94% ) Highest temp of 37.1 C was recorded at 11/24 1:20 Pain reported at 11/24 9:56: 3 Physical Exam: Constitutional: Overweight woman, no acute distress, appears comfortable Eyes: pupils 2mm bilaterally ENMT: mucus membranes moist Respiratory/Thorax: coarse sounds on auscultation bilaterally, no rhonchi/rales/wheezes Cardiovascular: regular rate and rhythm without murmurs/rubs/gallops, s1/s2 Gastrointestinal: soft, no masses appreciated. some bowel sounds. nontender to light or deep palpation even over RUQ or R costal margin Genitourinary: trinidad catheter in place draining clear urine Extremities: warm, well perfused, +1 pitting edema bilaterally Psychological: pleasant, conversant Skin: anicteric, brusing on posterior R arm Medication: Medications: Continuous Medications 1. HYDROmorphone DETONATOR ASSEMBLER 25 mg/ NaCL 0.9% 50 mL: 25 mg IV DETONATOR ASSEMBLER <Continuous> Scheduled Medications 1. Acetaminophen: 975 mg Oral Every 8 Hours 2. Albuterol 2.5 mg/ 3 mL Nebulizer Soln: 3 mL Inhalation Once 3. Cyclobenzaprine: 10 mg Oral 3 Times a Day 4. Fleet Adult (Sodium Phosphate) Rectal: 1 enema Rectal Once 5. Gadobenate Dimeglumine (MultiHance-Radiology Contrast): 23.96 mL IntraVenous Push Once 6. guaiFENesin Extended Release: 600 mg Oral Every 12 Hours 7. Levothyroxine: 50 microgram(s) Oral Daily 8. Lidocaine 5% TransDermal: 1 patch TransDermal Every 24 Hours 9. Pantoprazole Injectable: 40 mg IntraVenous Push Every 24 Hours 10. Polyethylene Glycol: 17 gram(s) Oral 2 Times a Day 11. Simvastatin: 20 mg Oral At Bedtime PRN Medications 1. Albuterol 2.5 mg/ 3 mL Nebulizer Soln: 3 mL Inhalation Every 2 Hours 2. Bisacodyl Rectal: 10 mg Rectal Daily 3. diphenhydrAMINE Injectable: 25 mg IntraVenous Push Every 4 Hours 4. Loratadine: 10 mg Oral Daily 5. Naloxone Injectable: 0.2 mg IntraVenous Push Once 6. Promethazine IV Piggy Back: 12.5 mg IntraVenous Piggyback Every 6 Hours Currently Suspended Medications 1. Sodium Chloride 0.9% IV Bolus: 1000 mL IntraVenous Piggyback Once Recent Lab Results: Results: I have reviewed these laboratory results: Complete Blood Count 24-Nov-2018 09:32:00 ResultValue White Blood Cell Count 14.9 H Nucleated Erythrocyte Count 0.0 Red Blood Cell Count 2.92 L HGB 8.9 L HCT 28.1 L MCV 96 MCHC 31.7 L PLT 211 RDW-CV 13.2 Assessment and Plan: Assessment: Ms. Hunt is a 73 year old F with history of HTN, DM2 with morbid obesity, hypothyroidism, HLD, presenting as transfer from [facility] for back pain due to spinal lesions, highly suspicious for lung cancer metastases in setting of recent workup. Now POD1 from decompression and fixation of T-L spine. Palliative care was consulted for pain management. #Pain in R flank, likely related to bony metastases, currently not well controlled and patient with sedation #Bony pain - continue dexamethasone 4mg twice a day for bony pain (8am/4pm dosing to minimize side effect profile) - wean per neurosurgery recs in next two days --> continue PPI while on steroids - please start pamidronate 90mg once for bony pain #Further pain coverage. Minimal response with morphine and patient's pain control needs not yet fully established. - continue hydromorphone DETONATOR ASSEMBLER (0.1mg q6min dosing) especially during perioperative period - will reevaluate within next several days - continue bowel regimen with miralax daily to avoid constipation #Code status/living will: in paper chart - patient expressed desire to be DNR/DNI, updated in EMR - please reinstate DNAR order now that patient has returned from surgery Thank you for allowing us to participate in the care of this patient. We will continue to follow. Please contact us for any questions via [employer] or pager [phone]. Nessa Mercado Internal Medicine PGY-1 Signature/Cosignature/Attestation: Attending AttestationI saw and evaluated the patient. I personally obtained the almonte and critical portions of the history and physical exam or was physically present for almonte and critical portions performed by the resident/fellow. I reviewed the resident/fellows documentation and discussed the patient with the resident/fellow. I agree with the resident/fellows medical decision making as documented in the resident/fellows note with the exception/addition of the following: I personally evaluated the patient (as noted in the above attestation) on 24-Nov-2018 Comments/ Additional Findings DETONATOR ASSEMBLER interrogated at 1542; in the prior 12 hours period patient had utilized 7mg with a 70/77 dose/demand ratio (24h period was 13.2 mg, 132/138). Patient is post-op day 1. Seen concurrently with occupational therapy, patient seen standing up, taking small steps, and then getting back into bed; moving hesitantly but steadily. Despite increased opioid requirement patient does not appear over medicated/drowsy/out-of-it as she did last week. Would continue DETONATOR ASSEMBLER for fluctuating post-operative pain requirement. Call with questions, [phone] Electronic Signatures: Nessa Mercado (Resident)) (Signed 24-Nov-2018 16:26) Authored: Service, Subjective Data, Objective Data, Assessment and Plan, Signature/Cosignature/Attestation Annette Keller) (Signed 24-Nov-2018 17:05) Authored: Service, Assessment and Plan, Signature/Cosignature/Attestation Co-Signer: Service, Subjective Data, Objective Data, Assessment and Plan, Signature/Cosignature/Attestation Last Updated: 24-Nov-2018 17:05 by Annette Keller) NUTRITION THERAPY-FOLLOW Observed: 11/24/2018 Status: UNK Source: UNIVERSITY UP 12:34 PM HOSPITALS REPOSITORY Assessment Subjective/Objective: Note Type: Follow Up Note Authored by: Registered Dietitian Range Aide Pager Number: [phone] Nutrition Note: The patient is a 73 year old Female who is Hospital Day # 13 and POD #1 for T10-11 transpedicular decompression of tumor, T7-L2 instrumented fusion. Bronchoscopy w/ EBUS with sampling of right hilar mass and subcarinal lymph node which were both positive for malignant cells. 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 MRI of the entire spine was done, consistent with T10 fracture and additional metastases. Met with pt and pt's family. Pt reported fair appetite, tried to eat 3 meals/day (but only able to finish half of meal each time). Consumed 3/4 of b'fast today (omelet, david, cheese). Per nursing flowsheet, pt's PO is varied from 50-100% during admit. Pt doesn't like Boost Plus, likes Boost Breeze and drank 2 Breeze daily. Denies N/V, reported constipation with last BM 11/21. This play writer continued to encourage PO (small, frequent meals) and consumption of oral nutrition supplements. Objective Information: ---- Intake and Output ----- Mn/Dy/Year TimeIntakeOutputNet Nov 24, 2018 6:00 [id number] Nov 23, 2018 10:00 [id number] The Intake and Output Totals for the last 24 hours are: IntakeOutputNet [id number] Weight 11/12: 113.2kg 11/23: 119.8kg last BM 11/21 Recent Lab Results: Results: I have reviewed these laboratory results: Complete Blood Count 24-Nov-2018 09:32:00 ResultValue White Blood Cell Count 14.9 H Nucleated Erythrocyte Count 0.0 Red Blood Cell Count 2.92 L HGB 8.9 L HCT 28.1 L MCV 96 MCHC 31.7 L PLT 211 RDW-CV 13.2 Renal Function Panel 24-Nov-2018 06:10:00 ResultValue Glucose, Serum 99 NA 141 K 4.0 CL 105 Bicarbonate, Serum 25 Anion Gap, Serum 15 BUN 25 H CREAT 0.86 GFR-Non >60 GFR- >60 Calcium, Serum 8.3 L Phosphorus, Serum 4.7 ALB 3.0 L Calcium, Ionized Level 23-Nov-2018 14:06:00 ResultValue Calcium, Ionized Level 1.12 Current Active Medications/PN: Levothyroxine, Tablet (SYNTHROID) DOSE = 50 microgram(s) Oral Daily, 23-Nov-2018 Pantoprazole Injectable, (PROTONIX) DOSE = 40 mg IntraVenous Push Every 24 Hours, 23-Nov-2018 Polyethylene Glycol, Powder for Reconstitution (MIRALAX) DOSE = 17 gram(s) Oral 2 Times a Day, 23-Nov-2018 Simvastatin, Tablet (ZOCOR) DOSE = 20 mg Oral At Bedtime, 23-Nov-2018 Promethazine IV Piggy Back, in Sodium Chloride 0.9% 50 mL (PHENERGAN) DOSE = 12.5 mg Every 6 Hours, PRN Nausea Recommended Infusion Time: 15 minute(s), 23-Nov-2018 Nutrition Orders: Diet, Regular, 23-Nov-2018 May Participate in Room Service, Yes, 23-Nov-2018 Nutrition Focused Physical Findings: Other Physical Findings: Skin: back midline Edema: +2, generalized Change in Metabolic Demand: yes Subjective Global Assessment Rating: malnutrition not present at this time Estimated Needs: kcals/day: 5988-2838 gms protein/day: ~85 mL fluid/day: 1 ml/kcal Nutrition Diagnosis: Diagnosis1 ongoing. Dx: Inadequate oral intake. related to decreased appetite as evidenced by pt/granddaughter report of poor oral intake since hospital admission. Nutrition Interventions: Individualized Nutrition Prescription Provided for: diet Diet Education: not applicable Ordered Supplements: Boost Breeze 3x/day, encouraged to order ECC milkshakes as desired Coordination of Care with: RN Nutrition Goals: Goals: Nutrition Therapy: oral intake greater than 50%, consume prescribed supplement, lab values within normal limits Nutrition Goal Outcomes: goal partially met Outcomes Summary: Nutrition Therapy Outcome Summary: Nutritional Therapy: inadequate oral intake NUTRITION RECOMMENDATIONS: Recommendations: 1. Continue regular diet - Oral nutrition supplements updated per pt's preferences 2. Addition of senior MVI 3. Continue bowel regimens as needed 4. Weekly weights Nutrition Therapy Recommendations: Nutrition Therapy Recommendations: Refer to RDN note Dietitian Monitoring and Evaluation Plan: Monitoring and Evaluation Plan: po intake and tolerance, weight trend, stool output, labs Time Spent (minutes): 60 Nutrition Support: no Electronic Signatures: Yuridia Thompson (ERASTO, NATHAN) (Signed 24-Nov-2018 12:55) Authored: Assessment Subjective/Objective, Nutrition Focused Physical Findings, Estimated Needs, Nutrition Diagnosis, Nutrition Interventions, Nutrition Goals, Nutrition Recommendations, Dietitian Monitoring and Evaluation Plan, Time Spent/Nutrition Support Last Updated: 24-Nov-2018 12:55 by Yuridia Thompson (ERASTO, NATHAN) BN SPINE, THORACIC, Observed: 11/24/2018 Status: F Source: [place] MIN 4 VIEWS 12:10 PM HOSPITALS REPOSITORY Patient Name: TRISH HUNT STUDY: BN SPINE, THORACIC, MIN 4 VIEWS; 11/24/2018 12:10 pm INDICATION: Signs/Symptoms: s/p T10-T11 decompression and T7-L2 fusion. COMPARISON: T-spine radiograph dated 11/22/2018, CT dated 11/14/2018. ACCESSION NUMBER(S): [id number] ORDERING CLINICIAN: JORDAN SAUNDERS FINDINGS: AP and lateral view of the thoracic spine are obtained. There is interval postsurgical change from fusion with posterior jovany and bipedicular screws of T7-L2 with screws skipping T10. Hardware is intact and without suspicious perihardware lucency. Compression deformity of T10 is stable compared to prior exam. Underlying lesion at the level of T10 with extension to T9 and T11 are better demonstrated on CT dated 11/14/2018. No new acute fracture or spondylolisthesis. IMPRESSION: 1. Interval postsurgical change from fusion of T7-L2 with intact hardware. Stable appearance of pathologic compression fracture of T10. Underlying mass and its extension is better appreciated on CT dated 11/14/2018. Please refer to that report for further details. I personally reviewed the images/study and I agree with the findings as stated. This study was interpreted at [facility], [place], [place], [place]. Electronically signed by: WELLINGTON VIDAL MD DAILY PROGRESS Observed: 11/24/2018 Status: COMPLETED Source: UNIVERSITY NOTE-MEDICINE 10:49 AM HOSPITALS REPOSITORY Service: Medicine Subjective Data: TRISH HUNT is a 73 year old Female who is Hospital Day # 13 and POD #1 for T10-11 transpedicular decompression of tumor, T7-L2 instrumented fusion. Objective Data: Objective Information: T PRBPSpO2 [id number]/[id number]% Date/Time11/24 10: 10: 10: 10: 10:15 Range(36.4C - 37.1C ) (65 - 78 ) (18 - 20 ) (72 - 110 )/ (42 - 69 ) (91% - 94% ) Highest temp of 37.1 C was recorded at 11/24 1:20 Pain reported at 11/24 9:56: 3 Physical Exam: Constitutional: see medical attendings daily assessment Medication: Medications: Continuous Medications 1. HYDROmorphone DETONATOR ASSEMBLER 25 mg/ NaCL 0.9% 50 mL: 25 mg IV DETONATOR ASSEMBLER <Continuous> Scheduled Medications 1. Acetaminophen: 975 mg Oral Every 8 Hours 2. Albuterol 2.5 mg/ 3 mL Nebulizer Soln: 3 mL Inhalation Once 3. Cyclobenzaprine: 10 mg Oral 3 Times a Day 4. Fleet Adult (Sodium Phosphate) Rectal: 1 enema Rectal Once 5. Gadobenate Dimeglumine (MultiHance-Radiology Contrast): 23.96 mL IntraVenous Push Once 6. guaiFENesin Extended Release: 600 mg Oral Every 12 Hours 7. Levothyroxine: 50 microgram(s) Oral Daily 8. Lidocaine 5% TransDermal: 1 patch TransDermal Every 24 Hours 9. Pantoprazole Injectable: 40 mg IntraVenous Push Every 24 Hours 10. Polyethylene Glycol: 17 gram(s) Oral 2 Times a Day 11. Simvastatin: 20 mg Oral At Bedtime PRN Medications 1. Albuterol 2.5 mg/ 3 mL Nebulizer Soln: 3 mL Inhalation Every 2 Hours 2. Bisacodyl Rectal: 10 mg Rectal Daily 3. diphenhydrAMINE Injectable: 25 mg IntraVenous Push Every 4 Hours 4. Loratadine: 10 mg Oral Daily 5. Naloxone Injectable: 0.2 mg IntraVenous Push Once 6. Promethazine IV Piggy Back: 12.5 mg IntraVenous Piggyback Every 6 Hours Currently Suspended Medications 1. Sodium Chloride 0.9% IV Bolus: 1000 mL IntraVenous Piggyback Once Recent Lab Results: Results: I have reviewed these laboratory results: Complete Blood Count Trending View [id number] 09:32:00 24-Nov-2018 06:10:00 23-Nov-2018 23:09:00 White Blood Cell Count14.9 H 16.1 H 19.6 H Nucleated Erythrocyte Count0.0 0.0 0.0 Red Blood Cell Count2.92 L 2.56 L 2.68 L HGB8.9 L 7.8 L 8.3 L HCT28.1 L 24.6 L 25.6 L MCV96 96 96 MCHC31.7 L 31.7 L 32.4 LNV439 231 236 RDW-CV13.2 13.0 13.0 Renal Function Panel 24-Nov-2018 06:10:00 ResultValue Glucose, Serum 99 NA 141 K 4.0 CL 105 Bicarbonate, Serum 25 Anion Gap, Serum 15 BUN 25 H CREAT 0.86 GFR-Non >60 GFR- >60 Calcium, Serum 8.3 L Phosphorus, Serum 4.7 ALB 3.0 L Radiology Results: Results: Impression: Xray Thoracic Spine Min 4 View [Nov 24 2018 12:25PM]pendng result Assessment and Plan: Assessment: Trish Hunt is a 73 year old female former smoker w/ PMHx significant for HTN, Impaired Fasting Glucose, Hyperlipidemia, Peripheral Neuropathy, Hypothyroidism, GERD, Morbid Obesity and Recent Spinal Cord Stimulator Implant who is transferred to [facility] 11/12/18 from [facility] after presenting with intractable progressive back pain with SOB and found on imaging to have a lung mass with adenopathy and suspected spinal metastasis for neurosurgical evaluation and further care. In Shared Visit with Dr. Oquendo Metastatic Lung CA/T10 pathologic fracture CT Chest showed Occlusion of the right middle bronchus with pleural effusion with suspected spinal metastasis. Pulmonary medicine and oncology were consulted with a Right Thoracentesis via U/S obtained 11/12/18 for 140 ml of fluid. The pleural fluid is reported to be exudative (cloudy, predominant monocytes (87%), TP: 2.5, LDH 500 (serum LDH 437), cytology was no malignant cells. MRI of the brain 11/14/18 without lesions. Pulmonology consulted and a Bronchoscopy w/ EBUS with sampling of right hilar mass and subcarinal lymph node which were both positive for malignant cells. PET showed right central middle lobe malignancy with multiple metastasis to the axial skeleton, mediastinal and bilateral hilar lymph nodes. At Neurosurgery request, an MRI of the entire spine was done, consistent with T10 fracture and additional metastases. s/p 8 - T10-11 transpedicular decompression of tumor, T7- L2 instrumented fusion with Dr. Tamayo, [address] Lymph Node Biopsy showing Adenocarcinoma of lung origin she tolerated surgery very well -Oncology consulted, appreciate input - will need follow up with lung oncology team, Dr Mahoney or Dr Rincon -Rad Onc consulted, appreciate input - will start radiation therapy in the post-operative setting at about 2-3 weeks out to allow for adequate healing - started on DETONATOR ASSEMBLER post- op along with scheduled flexiril and APAP, lidoderm patchs - monitor for confusion some of these medications may need to be decreased - did have thoracic standing xray today - plan for MRI with anesthesia tomorrow, will be NPO after midnight, Call MRI in am to see if scheduled - monitor Back Pain Reports some improvement after initiation of DETONATOR ASSEMBLER -Palliative care consulted to aid in pain management -Continue Acetaminophen 975 mg by mouth three times a day -Continue Dilaudid DETONATOR ASSEMBLER -Phenergan PRN -Continue Dexamethasone 4mg BID (0800 and 1600), ok per neurosurgery - plan to wean over the next 2 days, only got one dose today, plan for morning dose tomorrow and then can discontinue the order -PT/OT Hypoxia/COPD Has been requiring O2 via nasal cannula. Pleural effusions present on imaging. Wheezing on exam today, reports having nebulizer at home but per granddaughter she hardly uses. O2 has been weaed to 1LNC. -Duonebs Q6h and PRN -Continue Mucinex DM ER 600mg Q12H -Wean O2 as tolerated -Bronchial Hygiene TID HTN Bp with systolic in the 100-110 renage home regimen is HCTZ/Losartan 12.5mg/50mg. - hold home meds for now Constipation no further constipation is noted -Continue Miralax twice a day and PRN -Continue Bisacodyl suppository daily PRN Impaired Fasting Glucose Denies diagnosis of Diabetes. States was told had elevated blood glucose 20 years ago with Metformin initiated as preventive. 07/2018 Hgb A1C normal. Likely will become elevated in setting of starting Dexamethasone. -hold home Metformin ER -Monitor on am labs Hypothyroid TSH 0.86 -Continue home Levothyroxine 50 mcg daily Codes status Discussed with patient, she reports she did not fully understand what palliative care had stated when speaking of code status, at this time she wishes to have full interventions. Her would be the next decision maker and has a living will. She does not wish to have prolonging life support. -Full code DVT prophylaxis -Enoxaparin 40 mg subcutaneous twice a day, on hold at 0001 for OR tomorrow -Sequential compression devices Dispo Lives with . No home needs identified at present, but pain is presenting a challenge for ambulation. Family at bedside and supportive. -PT recommending SNF at this time, Pt/OT reordered following OR Signature/Cosignature/Attestation: Provider/Team Contact Info-Pager [phone] Attending Only - Shared Visit with Advanced Practice ProviderThis is a shared visit. I have reviewed the Advanced Practice Providers encounter note, approve the Advanced Practice Providers documentation, and provide the following additional information from my personal encounter. Comments/ Additional Findings She had a extensive surgical procedure that went without complications. Estimated blood loss was 1.2 L, a unit of PRBC was transfused in the morning. During the night no fever or desaturation documented. She has done quite well with DETONATOR ASSEMBLER. At the time we arrived in her room she was awake and fully engaged in conversation. No much pain, was more receptive. She is punctual with pressing the DETONATOR ASSEMBLER. Two female area safety manager were present in the room. Physical examination: Per the WHO definition of age the patient is an elderly female fully oriented in mild detectable physical distress due to pain. Was less dyspnoic still coughing wet. Maintained good conversation. Mouth and throat mucosa clean, moist, no ulcers or thrush. Thick supple neck, no JVD, or bruit appreciated. Supraclavicular fossa bulging. Appeared eupneic with bigger tidal volumes, fewer expiratory wheezing. Regular rhythm, distant S1/S2 no appreciable murmur or gallop. Abdomen large with normal bowel sounds, no tenderness or organomegaly appreciated. There are two drains coming from the back, liquid thin blood in the vacuum vessel. Long dressing covers mid 2/3 of the spine. She had pitting edema in both legs/feet (was wearing compression stockings). Bladder catheter in place, urine clear light yellow. Neuro exam showed no focal deficit. Motion in bed triggers back pain, she avoids turning. Coherent, did appear depressed. The rest of today's physical findings are similar to those noted/reported 2 days ago. I reviewed the most recent labs and discussed with the GRIEVANCE MANAGER. WBC: 10.2 -> 16.1 -> 14.9 Hctr: 43.9 -> 24.6 -> 28.1 Platelet: 324 -> 231 -> 211 BUN/creatinine: 27/0.74 -> 28/0.86 Anatomic pathology report reviewed and discussed on previous days. I reviewed the imaging, I read the report and discussed with the GRIEVANCE MANAGER. AP and lateral view of the thoracic spine are obtained. There is interval postsurgical change from fusion with posterior jovany and bipedicular screws of T7-L2 with screws skipping T10. Hardware is intact and without suspicious perihardware lucency. Compression deformity of T10 is stable compared to prior exam. Underlying lesion at the level of T10 with extension to T9 and T11 are better demonstrated on CT dated 11/14/2018. No new acute fracture or spondylolisthesis. I reviewed the medications and discussed with the GRIEVANCE MANAGER. 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 Ortho team performed: T10-11 transpedicular decompression of metastatic spine tumor, T7-L2 posterior instrumentation and fusion with allograft, use of intraoperative O arm, use of C arm fluoroscopy, use of ultrasound, placement of 2 subfascial drains Pain has been managed optimally with DETONATOR ASSEMBLER. Palliative care team is following the patient, input appreciated. Continue acetaminophen as ordered. Give a dose of pamidronate 90mg. Radiation oncology to evaluate the condition. Per the recommendations the patient has to have surgery first then ~ 4 weeks later radiation treatment. Lung mass with lymphadenopathy in the mediastinum. Final report: adenocarcinoma of lung origin. Oncology has seen the patient and the biopsy report. Additional testing with the biopsy sample suggested to evaluate for the most appropriate nonsurgical treatment. Hypertension. Patient has been on losartan/HCTZ at home, Currently BP is well controlled (perhaps hydromorphone is contributing to the low BP!) Edema in lower extremities is more pronounced, she received plenty of fluid during OR. No indication for diuretic yet. Anemia of blood loss. Received 1 unit of PRBC with good incrementing. COPD with wet cough. Mixture of ipratropium with albuterol scheduled, q6h. Continue guaifenesin. PT evaluation. Will follow closely. Electronic Signatures: Rocky Oquendo) (Signed 24-Nov-2018 15:46) Authored: Signature/Cosignature/Attestation Jordan Saunders (ALIGNMENT SPECIALIST-GRIEVANCE MANAGER) (Signed 24-Nov-2018 17:28) Authored: Service, Subjective Data, Objective Data, Assessment and Plan, Signature/Cosignature/Attestation Last Updated: 24-Nov-2018 17:28 by Jordan Saunders (ALIGNMENT SPECIALIST-GRIEVANCE MANAGER) CBC Collected: 11/24/2018 Status: F Source: [facility] 9:32 AM HOSPITALS REPOSITORY TYPE CODE TESTS RESULT OUT OF REFERENCE UNITS RANGE LAB WBCR(LOINC 4.4 - 11.3 x10E9/L ) WBC High 14.9 LAB NRBC(LOINC 0.0-0.0 /100 WBC ) NUCLEATED RBC 0.0 LAB RBCCT(LOIN 4.00 - 5.20 x10E12/L C) Low RBC 2.92 LAB HGB(LOINC) 12.0 - 16.0 g/dL Low HGB 8.9 LAB HCT(LOINC) 36.0 - 46.0 % Low HCT 28.1 LAB MCV(LOINC) 80 - 100 fL MCV 96 LAB MCHC2(LOIN 32.0 - 36.0 g/dL C) Low MCHC 31.7 LAB PLTCT(LOIN 150 - 450 x10E9/L C) PLT 211 LAB RDWCV(LOIN 11.5 - 14.5 % C) RDW-CV 13.2 Performed By: #### CBC #### [facility] [id number] [facility] [place] [address] CBC Collected: 11/24/2018 Status: F Source: [facility] 6:10 [facility] REPOSITORY TYPE CODE TESTS RESULT OUT OF REFERENCE UNITS RANGE LAB WBCR(LOINC 4.4 - 11.3 x10E9/L ) WBC High 16.1 LAB NRBC(LOINC 0.0-0.0 /100 WBC ) NUCLEATED RBC 0.0 LAB RBCCT(LOIN 4.00 - 5.20 x10E12/L C) Low RBC 2.56 LAB HGB(LOINC) 12.0 - 16.0 g/dL Low HGB 7.8 LAB HCT(LOINC) 36.0 - 46.0 % Low HCT 24.6 LAB MCV(LOINC) 80 - 100 fL MCV 96 LAB MCHC2(LOIN 32.0 - 36.0 g/dL C) Low MCHC 31.7 LAB PLTCT(LOIN 150 - 450 x10E9/L C) PLT 231 LAB RDWCV(LOIN 11.5 - 14.5 % C) RDW-CV 13.0 Performed By: #### CBC #### [facility] [id number] [facility] [place] [address] RENAL FUNCTION PANEL Collected: 11/24/2018 Status: F Source: [place] 6:10 [facility] REPOSITORY TYPE CODE TESTS RESULT OUT OF REFERENCE UNITS RANGE LAB GLU(LOINC) 74 - 99 mg/dL GLUCOSE 99 LAB SOD(LOINC) 136 - 145 mmol/L SODIUM 141 LAB K(LOINC) 3.5 - 5.3 mmol/L POTASSIUM 4.0 LAB CHLOR(LOIN 98 - 107 mmol/L C) CHLORIDE 105 LAB BIC(LOINC) 21 - 32 mmol/L BICARBONATE 25 LAB ANGAP(LOIN 10 - 20 mmol/L C) ANION GAP 15 LAB UREA(LOINC 6 - 23 mg/dL ) UREA High NITROGEN 25 LAB CREA(LOINC 0.50 - 1.05 mg/dL ) CREATININE 0.86 LAB GFRFN(LOIN >60 mL/min/1.7 C) 3m2 GFR-NON AM. >60 LAB GFRAA(LOIN >60 mL/min/1.7 C) 3m2 GFR- AM. >60 Result Comment: CALCULATIONS OF ESTIMATED GFR ARE PERFORMED USING THE MDRD STUDY EQUATION FOR THE IDMS-TRACEABLE CREATININE METHODS. CLIN CHEM 2007;53:766-72 LAB CA(LOINC) 8.6 - 10.6 mg/dL CALCIUM Low 8.3 LAB PHOS(LOINC) 2.5 - 4.9 mg/dL PHOSPHORUS 4.7 Result Comment: The performance characteristics of phosphorus testing in heparinized plasma have been validated by the individual laboratory site where testing is performed. Testing on heparinized plasma is not approved by the FDA; however, such approval is not necessary. LAB ALB(LOINC) 3.4 - 5.0 g/dL Low ALBUMIN 3.0 Performed By: #### RENAL #### [facility] [address] [place] [address] DAILY PROGRESS Observed: 11/24/2018 Status: COMPLETED Source: [facility] 5:47 AM [facility]OSPITALS REPOSITORY Service: Neurosurgery Subjective Data: TRISH HUNT is a 73 year old Female who is Hospital Day # 13 and POD #1 for T10-11 transpedicular decompression of tumor, T7-L2 instrumented fusion. Objective Data: Objective Information: T PRBPSpO2 [id number]/5891% Date/Time11/24 5: 5: 5: 5: 5:07 Range(36.5C - 37.1C ) (72 - 78 ) (18 - 20 ) (72 - 106 )/ (42 - 66 ) (91% - 94% ) Highest temp of 37.1 C was recorded at 11/24 1:20 Pain reported at 11/24 2:58: 3 Physical Exam: Neurological: ox3 5/5 bue 5/5 ble sensation intact Assessment and Plan: Assessment: 73F with a history of HTN, HLD, DM, and a newly diagnosed hilar mass with b/l pleural effusions s/p pleuocentesis. I have personally reviewed the images, which include a CT, which shows a T10 bipedicular lesion c/f spinal mets 11/23 s/p T10/T11 transpedicular decompression, T7-L1 instrumentation and fusion 11/24 pain well controlled Plan medicine primary cont drains wean dex to off in 2 days would get morning CBC. transfuse blood if needed upright standing XR of thoracic spine when able MRI of the thoracic spine when able PT/OT SCd, SQH for DVT PPX on post op day 2 SCIP Measures: Urinary Catheter Removed Post-Op Day 2: yes Patient on Beta James Prior to Admission: no Prophylactic antibiotics scheduled to be discontinued with 24 hr of anesthesia end time (48 hr for cardiac surgery): yes Signature/Cosignature/Attestation: Attending AttestationI saw and evaluated the patient. I personally obtained the almonte and critical portions of the history and physical exam or was physically present for almonte and critical portions performed by the resident/fellow. I reviewed the resident/fellows documentation and discussed the patient with the resident/fellow. I agree with the resident/fellows medical decision making as documented in the residents note. I personally evaluated the patient (as noted in the above attestation) on 24-Nov-2018 Electronic Signatures: Huber Tamayo) (Signed 24-Nov-2018 13:41) Authored: Assessment and Plan, SCIP Measures, Signature/Cosignature/Attestation Co-Signer: Service, Subjective Data, Objective Data, Assessment and Plan, Signature/Cosignature/Attestation Ronnie Rincon (Resident)) (Signed 24-Nov-2018 06:46) Authored: Service, Subjective Data, Objective Data, Assessment and Plan, Signature/Cosignature/Attestation Last Updated: 24-Nov-2018 13:41 by Huber Tamayo) CLINICAL EVENT Observed: 11/24/2018 Status: UNK Source: [facility]-POST OPERATIVE 3:05 AM HOSPITALS REPOSITORY FOLLOW UP Event: Topic: post operative follow up Details: went to see patient at around 2200 as she is post op T7-L2 laminectomy, decompression and instrumental fusion. She is awake and alert, oriented. denies pain (has DETONATOR ASSEMBLER), currently denies nausea but is requesting phenergan if it occurs as zofran (which is ordered) has not helped well in past. On review of post op documentation it is noted that 1100 EBL during OR. Per aircraft maintenance manager shows intact neurovascular status and only shadow drainage on dressing. Pt was admitted on 11/12 from OSH with new diagnosis of adenocarcinoma of right middle lung with mets to spine, transferred here for neurosurgery evaluation as lesion was seen close to spinal cord. PET scan revealed metastasis to spine, mediastinal and hilar LN. PMHx of COPD, HTN, hypothyroidism, obesity, urge incontinence, and previous tobacco use. This afternoon post op CBC obtained: 12.6/37.0 (pre-op 14.0/43.9). at 2145 VS: 38.6 - 75 - 18 - 99/53 - 92% on room air. Given large amount of blood loss during OR repeat CBC sent: decreased to 8.3/25.6. plan to monitor VS and dressing, pain level closely, check cbc at 0500. At 0250 I reviewed most recent VS and saw BP of 72/42 -hr 76 documented at 0050 with recheck at 0120 hr72 - 96/57. per RN she stated BP cuff was not on correctly for 0050 BP and pt was asymptomatic at that time. Per RN no change or increase of shadow drainage on dressing . repeat at 0258=98/42 hr 76 (pt is not on any betablocker). pt is asymtomatic. will given normal saline and monitor BP closely as pt has only had a glass of diet pepsi since she came back from OR. will need to recheck CBC at 0500. 1 unit of prbc ordered to be prepared and placed on hold for likely administration this am. 25 minutes of time spent with pt; greater than 50% spend on counseling /coordination of care at 0510 VS 36.7 - 75 - 20 - 96/58 - 91% RA. Given BP and 460cc drain output will transfuse 1 unit of prbc after am CBC and RFP drawn. cont oxygen to keep saturation >/=92%. Went to see patient who is sitting upright in bed, denies SOB, dizziness, pain or nausea. Discussed need for prbc with pt. she is agreeable. family at bedside. blood was ordered to be prepared last night so will trasnfuse 1 unit of prbc. consent in chart. Provider / Team Contact Information: Provider/Team Contact Info-Pager Number: [phone] Electronic Signatures: Edith Dior (ALIGNMENT SPECIALIST-GRIEVANCE MANAGER) (Signed 24-Nov-2018 06:04) Authored: Event, Provider / Team Contact Information Last Updated: 24-Nov-2018 06:04 by Edith Dior (ALIGNMENT SPECIALIST-GRIEVANCE MANAGER) REQUEST-LEUKOREDUCED RED CELLS Collected: Status: F Source: [place] 11/24/2018 2:57 AM HOSPITALS REPOSITORY TYPE CODE TESTS RESULT OUT OF RANGE REFERENCE UNITS LAB OLPC(LOINC) ORDER RECD REQUEST-LEUK OREDUCED RED CELLS Performed By: #### OLPC #### [facility] [id number] [place] [address] CBC Collected: 11/23/2018 Status: F Source: [place] 11:09 PM [facility]OSPITALS REPOSITORY TYPE CODE TESTS RESULT OUT OF REFERENCE UNITS RANGE LAB WBCR(LOINC 4.4 - 11.3 x10E9/L ) WBC High 19.6 LAB NRBC(LOINC 0.0-0.0 /100 WBC ) NUCLEATED RBC 0.0 LAB RBCCT(LOIN 4.00 - 5.20 x10E12/L C) Low RBC 2.68 LAB HGB(LOINC) 12.0 - 16.0 g/dL Low HGB 8.3 LAB HCT(LOINC) 36.0 - 46.0 % Low HCT 25.6 LAB MCV(LOINC) 80 - 100 fL MCV 96 LAB MCHC2(LOIN 32.0 - 36.0 g/dL C) MCHC 32.4 LAB PLTCT(LOIN 150 - 450 x10E9/L C) PLT 236 LAB RDWCV(LOIN 11.5 - 14.5 % C) RDW-CV 13.0 Performed By: #### CBC #### [facility] [address] [place] [address] POST OPERATIVE NOTE - Observed: 11/23/2018 Status: COMPLETED Source: [facility] OR 5:31 PM HOSPITALS REPOSITORY Post Operative Note: PreOp Diagnosis: spinal tumor Post-Procedure Diagnosis: spinal metastasis Procedure: T10-11 transpedicular decompression of metastatic spine tumor, T7-L2 posterior instrumentation and fusion with allograft, use of intraoperative O arm, use of C arm fluoroscopy, use of ultrasound, placement of 2 subfascial drains Surgeon: Huber Tamayo Resident/Fellow/Other Coupon Manifest Clerk: Grazyna Costa Anesthesia: GETA Estimated Blood Loss (mL): 1100 Specimen: yes. thoracic infiltrating tumor Findings: large compressive tumor with involvement of pedicles and vertebral body, good decompression of thecal sac and bilateral nerve roots Patient Returned To/Condition: extubated, satisfactory Drains and/or Catheters: 2 subfacial drains Signature/Cosignature/Attestation: Attending AttestationI was present for the entire procedure Electronic Signatures: Huber Tamayo) (Signed 24-Nov-2018 13:51) Authored: Post Operative Note, Signature/Cosignature/Attestation Co-Signer: Post Operative Note, Signature/Cosignature/Attestation Grazyna Lara (Resident)) (Signed 23-Nov-2018 17:36) Authored: Post Operative Note, Signature/Cosignature/Attestation Last Updated: 24-Nov-2018 13:51 by Huber Tamayo) BN FLUOROSCOPIC Observed: 11/23/2018 Status: F Source: [facility]-THX INJ PROC 3:38 PM [facility] REPOSITORY Patient Name: TRISH HUNT STUDY: BN FLUOROSCOPIC GUIDE-THX INJ PROC; 11/23/2018 3:38 pm INDICATION: Signs/Symptoms: OR spine fluoro. ACCESSION NUMBER(S): [id number] ORDERING CLINICIAN: GRAZYNA LARA FINDINGS: Fluoroscopic support provided during posterior spinal fusion. A total of 2 fluoroscopic images were obtained. Total fluoroscopy time was 7.2 seconds. IMPRESSION: Study performed for localization purposes only. Electronically signed by: ALEKSANDRA FRANCOIS MD BN FLUOROSCOPIC Observed: 11/23/2018 Status: F Source: [facility]-THX INJ PROC 3:38 PM HOSPITALS REPOSITORY Patient Name: TRISH HUNT STUDY: BN FLUOROSCOPIC GUIDE-THX INJ PROC; 11/23/2018 3:38 pm INDICATION: Signs/Symptoms: OR spine fluoro. ACCESSION NUMBER(S): [id number] ORDERING CLINICIAN: GRAZYNA LARA FINDINGS: Fluoroscopic support provided during posterior spinal fusion. No fluoroscopic images were submitted.. Total fluoroscopy time was 2.27 seconds. IMPRESSION: Study performed for localization purposes only. Electronically signed by: ALEKSANDRA FRANCOIS MD ARTERIAL ELECTROLYTE,GLUCOSE Collected: Status: F Source: [facility] 11/23/2018 2:06 PM HOSPITALS REPOSITORY TYPE CODE TESTS RESULT OUT OF REFERENCE UNITS RANGE LAB SODN(LOINC 136 - 145 mmol/L ) SODIUM 136 LAB POTN(LOINC 3.5 - 5.3 mmol/L ) Low POTASSIUM 3.3 LAB CHLN(LOINC 98 - 107 mmol/L ) CHLORIDE 105 LAB BICAR(LOIN 22.0 - 26.0 mmol/L C) BICARB, CALCULATED 23.5 LAB GLUN(LOINC 74 - 99 mg/dL ) GLUCOSE High 157 LAB ANGPN(LOIN 10 - 25 mmol/L C) ANION GAP 11 Performed By: #### ELEAP #### [facility] [address] [place] [address] CALCIUM, IONIZED Collected: 11/23/2018 Status: F Source: [place] 2:06 [facility] REPOSITORY TYPE CODE TESTS RESULT OUT OF RANGE REFERENCE UNITS LAB CAION(LOINC 1.10 - 1.33 mmol/L ) 1.12 CALCIUM,IONI ZED Result Comment: The performance characteristics of ionized calcium tested in heparinized plasma or serum have been validated by the individual laboratory site where testing is performed. Testing on heparinized plasma or serum is not approved by the FDA; however, such approval is not necessary. Performed By: #### IONC1 #### [facility] [address] [place] [address] ARTERIAL H+H Collected: 11/23/2018 Status: F Source: [place] 2:06 [facility] REPOSITORY TYPE CODE TESTS RESULT OUT OF RANGE REFERENCE UNITS LAB HCTN(LOINC) 36.0 - 46.0 % HCT 37.0 LAB HGBNC(LOINC 12.0 - 16.0 g/dL ) 12.6 HGB,CALCULAT ED Performed By: #### [id number] #### [facility] [address] [place] [address] ARTERIAL BLOOD GAS Collected: 11/23/2018 Status: F Source: [facility] 2:06 [facility] REPOSITORY TYPE CODE TESTS RESULT OUT OF REFERENCE UNITS RANGE LAB PHART(LOIN 7.38 - 7.42 C) pH 7.40 LAB PCO2A(LOIN 38 - 42 mmHg C) PCO2 38 LAB PO2A(LOINC 85 - 95 mmHg ) PO2 High 168 LAB TEMP(LOINC degrees C ) PATIENT TEMPERATURE 37.0 Result Comment: NOTE: PATIENT RESULTS ARE NOT CORRECTED FOR TEMPERATURE. LAB SO2%A(LOINC) 94 - 100 % SO2 100 LAB BSEXB(LOINC) -2.0 - 3.0 mmol/L BASE EXCESS-BLOOD -1.1 LAB BICAR(LOINC) 22.0 - mmol/L 26.0 BICARB, CALCULATED 23.5 Performed By: #### [email or web address] #### [facility] [id number] [place] [address] ARTERIAL ELECTROLYTE,GLUCOSE Collected: Status: F Source: [facility] 11/23/2018 12:30 PM [facility]OSPITALS REPOSITORY TYPE CODE TESTS RESULT OUT OF REFERENCE UNITS RANGE LAB SODN(LOINC 136 - 145 mmol/L ) SODIUM 136 LAB POTN(LOINC 3.5 - 5.3 mmol/L ) Low POTASSIUM 3.0 LAB CHLN(LOINC 98 - 107 mmol/L ) CHLORIDE 107 LAB BICAR(LOIN 22.0 - 26.0 mmol/L C) BICARB, CALCULATED 25.2 LAB GLUN(LOINC 74 - 99 mg/dL ) GLUCOSE High 136 LAB ANGPN(LOIN 10 - 25 mmol/L C) Low ANION GAP 7 Performed By: #### ELEAP #### [facility] [address] [place] [address] ARTERIAL H+H Collected: 11/23/2018 Status: F Source: [place] 12:30 PM [facility] REPOSITORY TYPE CODE TESTS RESULT OUT OF RANGE REFERENCE UNITS LAB HCTN(LOINC) 36.0 - 46.0 % Low HCT 33.0 LAB HGBNC(LOINC 12.0 - 16.0 g/dL ) Low 11.2 HGB,CALCULAT ED Performed By: #### [id number] #### [facility] [address] [place] [address] CALCIUM, IONIZED Collected: 11/23/2018 Status: F Source: [place] 12:30 PM [facility] REPOSITORY TYPE CODE TESTS RESULT OUT OF RANGE REFERENCE UNITS LAB CAION(LOINC 1.10 - 1.33 mmol/L ) 1.18 CALCIUM,IONI ZED Result Comment: The performance characteristics of ionized calcium tested in heparinized plasma or serum have been validated by the individual laboratory site where testing is performed. Testing on heparinized plasma or serum is not approved by the FDA; however, such approval is not necessary. Performed By: #### IONC1 #### [facility] [address] [place] [address] ARTERIAL BLOOD GAS Collected: 11/23/2018 Status: F Source: [facility] 12:30 PM [facility]ITALS REPOSITORY TYPE CODE TESTS RESULT OUT OF REFERENCE UNITS RANGE LAB PHART(LOIN 7.38 - 7.42 C) pH High 7.43 LAB PCO2A(LOIN 38 - 42 mmHg C) PCO2 38 LAB PO2A(LOINC 85 - 95 mmHg ) PO2 High 154 LAB TEMP(LOINC degrees C ) PATIENT TEMPERATURE 37.0 Result Comment: NOTE: PATIENT RESULTS ARE NOT CORRECTED FOR TEMPERATURE. LAB SO2%A(LOINC) 94 - 100 % SO2 99 LAB BSEXB(LOINC) -2.0 - 3.0 mmol/L BASE EXCESS-BLOOD 0.9 LAB BICAR(LOINC) 22.0 - mmol/L 26.0 BICARB, CALCULATED 25.2 Performed By: #### [email or web address] #### [facility] [address] [place] [address] DAILY PROGRESS Observed: 11/23/2018 Status: COMPLETED Source: [facility] NOTE-MEDICINE 10:55 AM HOSPITALS REPOSITORY Service: Medicine Subjective Data: TRISH HUNT is a 73 year old Female who is Hospital Day # 12. Objective Data: Objective Information: T PRBPSpO2 [id number]% Date/Time11/23 3: 3: 3: 3: 3:40 Range(35.9C - 36.5C ) (69 - 88 ) (16 - 18 ) (136 - 175 )/ (74 - 107 ) (94% - 98% ) Pain reported at 11/23 7:10: 8 Physical Exam: Constitutional: In OR for most of the day Medication: Medications: Continuous Medications 1. HYDROmorphone DETONATOR ASSEMBLER 25 mg/ NaCL 0.9% 50 mL: 25 mg IV DETONATOR ASSEMBLER <Continuous> 2. Lactated Ringers Infusion: 1000 mL IntraVenous <Continuous> 3. Lactated Ringers Infusion: 1000 mL IntraVenous <Continuous> Scheduled Medications 1. Acetaminophen: 975 mg Oral Every 8 Hours 2. Albuterol 2.5 mg/ 3 mL Nebulizer Soln: 3 mL Inhalation Once 3. Cyclobenzaprine: 10 mg Oral 3 Times a Day 4. Fleet Adult (Sodium Phosphate) Rectal: 1 enema Rectal Once 5. guaiFENesin Extended Release: 600 mg Oral Every 12 Hours 6. Levothyroxine: 50 microgram(s) Oral Daily 7. Lidocaine 5% TransDermal: 1 patch TransDermal Every 24 Hours 8. Pantoprazole Injectable: 40 mg IntraVenous Push Every 24 Hours 9. Polyethylene Glycol: 17 gram(s) Oral 2 Times a Day 10. Simvastatin: 20 mg Oral At Bedtime PRN Medications 1. Albuterol 2.5 mg/ 3 mL Nebulizer Soln: 3 mL Inhalation Every 2 Hours 2. Bisacodyl Rectal: 10 mg Rectal Daily 3. diphenhydrAMINE Injectable: 25 mg IntraVenous Push Every 4 Hours 4. HYDROmorphone Injectable: 0.4 mg IntraVenous Push Every 5 Minutes 5. Loratadine: 10 mg Oral Daily 6. Naloxone Injectable: 0.2 mg IntraVenous Push Once 7. Ondansetron Injectable: 4 mg IntraVenous Push Every 6 Hours Recent Lab Results: Results: I have reviewed these laboratory results: Urinalysis 22-Nov-2018 13:51:00 ResultValue Color, Urine YELLOW Reference Range: STRAW,YELLOW Appearance, Urine CLEAR Specific [place], Urine 1.013 pH, Urine 7.0 Protein, Urine NEGATIVE Glucose, Urine NEGATIVE Blood, Urine NEGATIVE Ketones, Urine NEGATIVE Bilirubin, Urine NEGATIVE Urobilinogen, Urine <2.0 Nitrite, Urine NEGATIVE Leukocyte Esterase, Urine NEGATIVE Complete Blood Count 22-Nov-2018 10:44:00 ResultValue White Blood Cell Count 10.2 Nucleated Erythrocyte Count 0.0 Red Blood Cell Count 4.58 HGB 14.0 HCT 43.9 MCV 96 MCHC 31.9 L PLT 324 RDW-CV 12.9 Renal Function Panel 22-Nov-2018 10:44:00 ResultValue Glucose, Serum 92 NA 141 K 3.9 CL 103 Bicarbonate, Serum 28 Anion Gap, Serum 14 BUN 27 H CREAT 0.74 GFR-Non >60 GFR- >60 Calcium, Serum 9.5 Phosphorus, Serum 2.7 ALB 3.7 Coagulation Screen 22-Nov-2018 10:44:00 ResultValue Prothrombin Time, Plasma 12.0 International Normalized Ratio, Plasma 1.1 Activated Partial Thromboplastin Time 33 Radiology Results: Results: No Results have been selected. Please select Results from the Available Results list before marking as Reviewed. Assessment and Plan: Assessment: Trish Hunt is a 73 year old female former smoker w/ PMHx significant for HTN, Impaired Fasting Glucose, Hyperlipidemia, Peripheral Neuropathy, Hypothyroidism, GERD, Morbid Obesity and Recent Spinal Cord Stimulator Implant who is transferred to [facility] 11/12/18 from [facility] after presenting with intractable progressive back pain with SOB and found on imaging to have a lung mass with adenopathy and suspected spinal metastasis for neurosurgical evaluation and further care. In Shared Visit with Dr. Oquendo Metastatic Lung CA/T10 pathologic fracture CT Chest showed Occlusion of the right middle bronchus with pleural effusion with suspected spinal metastasis. Pulmonary medicine and oncology were consulted with a Right Thoracentesis via U/S obtained 11/12/18 for 140 ml of fluid. The pleural fluid is reported to be exudative (cloudy, predominant monocytes (87%), TP: 2.5, LDH 500 (serum LDH 437), cytology was no malignant cells. MRI of the brain 11/14/18 without lesions. Pulmonology consulted and a Bronchoscopy w/ EBUS with sampling of right hilar mass and subcarinal lymph node which were both positive for malignant cells. PET showed right central middle lobe malignancy with multiple metastasis to the axial skeleton, mediastinal and bilateral hilar lymph nodes. At Neurosurgery request, an MRI of the entire spine was done, consistent with T10 fracture and additional metastases. s/p OR today - T10-11 transpedicular decompression of tumor, T7-L2 instrumented fusion with Dr. Tamayo, [address] Lymph Node Biopsy showing Adenocarcinoma of lung origin -Oncology consulted, appreciate input - will need follow up with lung oncology team, Dr Mahoney or Dr Rincon -Rad Onc consulted, appreciate input - will start radiation therapy in the post-operative setting at about 2-3 weeks out to allow for adequate healing - started on DETONATOR ASSEMBLER post- op along with scheduled flexiril and APAP, lidoderm patchs and ice packs, per report she is having a lot of pain. - monitor for confusion some of these medications may need to be decreased - monitor Back Pain Reports some improvement after initiation of DETONATOR ASSEMBLER -Palliative care consulted to aid in pain management -Continue Acetaminophen 975 mg by mouth three times a day -Continue Dilaudid DETONATOR ASSEMBLER 0.2 dose with 10 min lock out and 1.2mg hourly max -Phenergan PRN -Continue Dexamethasone 4mg BID (0800 and 1600), ok per neurosurgery -PT Hypoxia/COPD Has been requiring O2 via nasal cannula. Pleural effusions present on imaging. Wheezing on exam today, reports having nebulizer at home but per granddaughter she hardly uses. O2 has been weaed to 1LNC. -Duonebs Q6h and PRN -Continue Mucinex DM ER 600mg Q12H -Wean O2 as tolerated -Bronchial Hygiene TID HTN SBP noted to be in 170s, home regiment in HCTZ/Losartan 12.5mg/50mg. -Give 1 time dose Losartan 50mg due to upcoming surgery -40mg IV Lasix once Constipation Likely related to narcotics. BM this am. -Continue Miralax twice a day and PRN -Continue Bisacodyl suppository daily PRN Impaired Fasting Glucose Denies diagnosis of Diabetes. States was told had elevated blood glucose 20 years ago with Metformin initiated as preventive. 07/2018 Hgb A1C normal. Likely will become elevated in setting of starting Dexamethasone. -hold home Metformin ER -Monitor on am labs Hypothyroid TSH 0.86 -Continue home Levothyroxine 50 mcg daily Codes status Discussed with patient, she reports she did not fully understand what palliative care had stated when speaking of code status, at this time she wishes to have full interventions. Her would be the next decision maker and has a living will. She does not wish to have prolonging life support. -Full code DVT prophylaxis -Enoxaparin 40 mg subcutaneous twice a day, on hold at 0001 for OR tomorrow -Sequential compression devices Dispo Lives with . No home needs identified at present, but pain is presenting a challenge for ambulation. Family at bedside and supportive. -PT recommending SNF at this time, re-eval after OR Signature/Cosignature/Attestation: Provider/Team Contact Info-Pager [phone] Attending Only - Shared Visit with Advanced Practice ProviderThis is a shared visit. I have reviewed the Advanced Practice Providers encounter note, approve the Advanced Practice Providers documentation, and provide the following additional information from my personal encounter. Comments/ Additional Findings Patient was taken to the OR before rounds and remained in the recovery until mid evening. For pain after surgery to continue DETONATOR ASSEMBLER. Electronic Signatures: Rocky Oquendo) (Signed 23-Nov-2018 19:46) Authored: Signature/Cosignature/Attestation Jordan Saunders (ALIGNMENT SPECIALIST-GRIEVANCE MANAGER) (Signed 23-Nov-2018 17:59) Authored: Service, Subjective Data, Objective Data, Assessment and Plan, Signature/Cosignature/Attestation Last Updated: 23-Nov-2018 19:46 by Rocky Oquendo) ABO/RH GROUP TEST Collected: 11/23/2018 Status: F Source: [facility] 8:10 AM [facility]OSPITALS REPOSITORY TYPE CODE TESTS RESULT OUT OF RANGE REFERENCE UNITS LAB ABORH(LOINC ) ABO TYPE O LAB RH(LOINC) RH TYPE POS Performed By: #### VERAB #### [facility] [address] [place] [address] PREOP CHECKLIST Observed: 11/23/2018 Status: UNK Source: [facility] 1:13 AM HOSPITALS REPOSITORY Preop Checklist: Preop Checklist: NPO [id number] 00:00 ID Band Onyes Allergy Bandyes Consent Signedpending H&P Completeyes Anesthesia Assessment Completedpending EKG Performedyes Chest X-Ray Performedyes Hair Washedno Soap and water bath with hair shampoo the night before surgeryno SCD's Appliedno LAYLA Hose Appliedno Denturesnot applicable Prostheticsnot applicable Hearing Aidsnot applicable Valuables Securedleft in patient room Cardiovascular Assessment: Apicalregular Radial Pulsespalpable Pedal Pulsespalpable Extremitieswarm, well perfused Respiratory Assessment: Respirationsunlabored regular Air Exchangeequal, good Breath Soundsclear Neurological Assessment: Level of Consciousnessalert, oriented Mobilitymoves all extremities Able to Express Selfyes Age Appropriateyes Emotional Statuscalm Preop Education: Surgical Site Infection Preventionyes Pain Scales and Managementyes Language / Communication: Language / CommunicationEnglish Electronic Signatures: Justin Valdes (RN) (Signed 23-Nov-2018 01:15) Authored: Preop Checklist Last Updated: 23-Nov-2018 01:15 by Justin Valdes (RN) HISTORY AND PHYSICAL Observed: 11/23/2018 Status: COMPLETED Source: [facility] - SURGICAL UPDATE < 12:53 AM HOSPITALS REPOSITORY 30 DAYS History & Physical Reviewed: I have reviewed the History and Physical dated: 22-Nov-2018 History and Physical reviewed and relevant findings noted. Patient examined to review pertinent physical findings.: No significant changes Home Medications Reviewed: no changes noted Allergies Reviewed: no changes noted This patient has been seen and discussed with the attending physician responsible for performing the procedure: yes Signatures/Attestation/Certification: Attending AttestationI saw and evaluated the patient. I personally obtained the almonte and critical portions of the history and physical exam or was physically present for almonte and critical portions performed by the resident/fellow. I reviewed the resident/fellows documentation and discussed the patient with the resident/fellow. I agree with the resident/fellows medical decision making as documented in the residents note. I personally evaluated the patient (as noted in the above attestation) on 23-Nov-2018 Attending Provider Inpatient Certification StatementI certify this patients need for inpatient care based on the above documentation including; the order to admit as inpatient, the anticipated length of stay, diagnosis, problem list and plan of care, and discharge plan. Electronic Signatures: Huber Tamayo) (Signed 23-Nov-2018 08:11) Authored: Signatures/Attestation/Certification Co-Signer: History & Physical Reviewed, Signatures/Attestation/Certification Grazyna Lara (Resident)) (Signed 22-Nov-2018 13:54) Authored: History & Physical Reviewed, Signatures/Attestation/Certification Last Updated: 23-Nov-2018 08:11 by Huber Tamayo) [facility] Observed: 11/23/2018 Status: F Source: [facility] DEPARTMENT 12:00 AM HOSPITALS REPOSITORY Name TRISH HUNT Pathologist: Samantha Martinez MD, Ph.D. Date of Procedure: 11/23/2018 Date Received: 11/23/2018 Date Reported 11/29/2018 Submitting Physician: HUBER TAMAYO MD Location: [facility] Other External # FINAL DIAGNOSIS SPINE, THORACIC, EXCISION: --METASTATIC NON-SMALL CELL CARCINOMA CONSISTENT WITH ADENOCARCINOMA INVOLVING SOFT TISSUE AND BONE. SEE NOTE Note: Findings are consistent with previous ([id number]) Electronically Signed Out By Samantha Martinez MD, Ph.D./MAC By the signature on this report, the individual or group listed as making the Final Interpretation/Diagnosis certifies that they have reviewed this case. Clinical History: Metastatic tumor to thoracic spine Specimens Submitted As: A: TUMOR INFILTRATING THORACIC BONE Gross Description: Received fresh, labeled with the patient's name and hospital number and tumor infiltrating thoracic bone, are multiple fragments of red- brown, soft tissue and bony tissue aggregating to 6.5 x 6.5 x 1.5 cm. Suction Operator sections are submitted in 5 cassettes. DJO djo/11/24/2018 Performed By: #### [facility] #### C Surgical Pathology Department [address] [place] [address] OPERATIVE REPORT Observed: 11/23/2018 Status: UNK Source: [facility] 12:00 [place] [address] Patient Name: TRISH HUNT : 1945 Date of Service: 11/23/2018 Patient Location: [facility] [id number] Patient Type: I Surgeon: Huber Tamayo MD Report Type: Operative Reports PREOPERATIVE DIAGNOSIS: Thoracic spine metastasis with cord compression. POSTOPERATIVE DIAGNOSIS: Thoracic spine metastasis with cord compression. OPERATION/PROCEDURE: 1. Thoracic level 10 through thoracic level 11 (T10-T11), transpedicular approach for decompression of metastatic spine tumor. 2. Thoracic level 7 - lumbar level 2 (T7-L2) posterior instrumentation with screw and jovany fixation. 3. Thoracolumbar posterior fusion with allograft and DBX matrix (T7-L2). 4. Use of intraoperative O-arm for stealth stereotactic neuronavigation for spinal procedure. 5. Use of C-arm fluoroscopy for localization. 6. Use of intraoperative ultrasound for evaluation of spine decompression. 7. Placement of 2 subfascial drains. SURGEON: Huber Tamayo MD PHARMACY TECHNICIAN TRAINEE(S): 1. Tai Maurice MD 2. Grazyna Lara MD ANESTHESIA: General endotracheal anesthesia. ESTIMATED BLOOD LOSS: 1100 cc. INTRAOPERATIVE SPECIMENS: Sent to pathology lab for permanent staining of the thoracic infiltrating metastatic tumor. INTRAOPERATIVE FINDINGS: Large compressive tumor with involvement of the pedicles of the vertebral body. There was good decompression of thecal sac and bilateral nerve roots. Use of intraoperative ultrasound showed good decompression and normal pulsations of the spinal cord. The patient returned to the PACU, extubated in satisfactory condition. DRAINS PLACED: Two subfascial drains. CLINICAL INDICATION: The patient is a 73-year-old female, who presented on November 13, 2018, with intractable progressive back pain. Of note, she is a former smoker with a history of hypertension, prediabetes, hyperlipidemia, peripheral neuropathy, morbid obesity, and recent spinal cord stimulator implant for overactive bladder, who did not improve with spinal cord stimulator placement in October 2018. She had a CT of the chest, abdomen, and pelvis which demonstrated a lung lesion as well as a pathologic fracture of the T10 vertebral body with evidence of Bilsky 2 cord compression. At baseline, the patient was ambulatory with some limitation of movement due to back pain. However, she had full strength in her upper and lower extremities as well as no bowel symptoms. She has known overactive bladder but no new incontinence. Given the evidence of concern for metastatic spine tumor as well as cord compression and intractable back pain, the patient underwent appropriate oncologic workup including a biopsy of the lung lesion concerning for lung adenocarcinoma. She was then consented and was taken to the operating room for the aforementioned surgery. OPERATION IN DETAIL: The patient was transferred to the operating room. She was given preoperative prophylactic IV antibiotics as well as one dose of IV steroids. The patient was sedated and intubated without difficulty by the Anesthesia service. A Fang Hugger was placed on the lower body to maintain control of core body temperature. A Trinidad catheter was inserted. All bony prominences were properly padded. The patient was turned prone on the [facility] table, after the patient's head was placed on a foam head pad. All pressure points were carefully padded. The electrophysiology monitoring team inserted needles in their proper location for somatosensory evoked potentials and monitoring. Baseline SSEPs showed good signal in the bilateral upper extremities and the bilateral lower extremities. The patient was prepped and draped in the standard sterile fashion. The C-arm fluoroscopy was draped and brought into the operative field, and the appropriate thoracolumbar levels were identified. The skin was prepped in the usual sterile fashion, and sterile drapes were applied. The skin was infiltrated with local anesthetics centered around the point of the T7 to L2 region. The skin was opened sharply midline utilizing a #10 scalpel blade. Once the deep fascia was reached, the posterior supraspinatus ligament was preserved, and the musculature was subperiosteally on both the right and left sides using monopolar electrocautery. Dissection was carried out over the zygapophyseal joint exposing the spinous processes, laminas, and transverse processes between T7 to L2. Hemostasis was meticulously achieved with bipolar forceps and monopolar electrocautery. The C- arm fluoroscopy unit was utilized to positively identify the correct levels. We then directed our attention to pedicle screw placement. We then placed the navigation tracking clamp on the spinous process of T7. We brought in the O arm to obtain 2 images in order to obtain adequate shots. Once we had adequate imaging on the O arm, those images were sent to the Netcipia navigation platform. We confirmed anatomical accuracy with the navigation. We then began our pedicle screw placement. All pedicle screws were implanted with similar technique. Using the neuronavigation, the entry point of the pedicle was identified and decorticated with a high-speed pneumatic drill. A pedicle finder probe was introduced into the pedicle until the pedicle was inserted into the bodies of the thoracic and lumbar levels, excluding T10 and the right T11 pedicle which was engulfed with tumor. The trajectory was checked with the flexible pedicle sound to ensure a bony rim around the hole. Once all holes were completed, self-tapping Medtronic Solera screws were placed into the aforementioned bilateral pedicles. The following screws were placed at the aforementioned levels: A 4.0 x 40 mm screw at bilateral T7, 4.0 x 40 mm screw at left T8, 4.5 x 40 mm screw at right T8, 4.0 x 45 mm screw at left T9, 4.5 x 40 mm screw at right, T9, 5.5 x 45 mm screw at left T11, 5.5 x 40 mm screws at bilateral T12, 5.5 x 40 mm screw at left L1, 5.5 x 45 mm screw at right L1, 6.5 mm x 45 mm screw at bilateral L2. Our attention was then turned to the laminectomy and decompression, and transpedicular approach to resection of tumor. We initiated laminectomy of T10 and T11 including lamina, pars, inferior and superior facet of the right T11. The ligamentum flavum was removed with matchstick drill. There was a significant amount of tumor compressing the thecal sac and wrapping around the bilateral T10 nerve roots, as well as T11 nerve roots. There was significant bulky tumor invovlving the right T11 facets and pedicle. We performed careful dissection exposing these nerve roots without durotomy. Care was taken to complete adequate decompression of the thecal sac which was surrounded by tumor. The SSEPs remained stable from her baseline during the surgery. We then continued our resection and took down the right T11 pedicle engulfed with tumor, as well as bilateral pedicles of T10, using a combination of Kerrison rongeur, Leksell rongeur, and removal with pituitary forceps. This resection was taken down to the anterior wall of the T10 and T11 vertebral bodies, flush at those levels. The spinal cord was well decompressed, and we confirmed a good decompression with intraoperative ultrasound which showed no further decompression of the thecal sac. Upon completing placement of the pedicle screws, we performed intraoperative Sayra fluoroscopy in order to confirm adequate positioning of the posterior segmental instrumentation, in AP and lateral views. All screws were properly inserted, and we were satisfied with the position of the instrumentation. Given the patient's diagnosis of metastatic lung carcinoma, we felt that further dissection may expose the patient to risk of bleeding without significant benefits as this tumor is expected to undergo further radiation. The spinal cord had been adequately decompressed. Therefore, we felt our surgical goals had been met. There were no intraoperative adverse events. SSEPs remained stable. The high speed drill was utilized to decorticate the bone laterally for posterolateral arthrodesis/fusion at T7-L2. These recesses were filled with allograft and mineralized bone matrix. We completed the instrumentation by adding bilateral rods and performing final tightening of the pedicle screw system. The wound was copiously irrigated with antibiotic saline solution. Two Hemovac drains were placed and brought out through a separate stab incision. The fascia was subsequently closed utilizing interrupted #0 Vicryl suture, and reinforced with a 1-0 looped Maxon suture. The subcutaneous tissue was approximated with 2-0 Vicryl suture. The skin was then reapproximated with brittni. The incision was dressed with a clean, dry dressing. All sponge counts, needle counts, and instrument counts were correct at the end of the case x2. SSEPs and motor evoked potentials remained stable from her baseline. All instrument, needle and sponge counts were correct at the end of the case. The patient tolerated the procedure well without any complications and was transferred in stable condition to the recovery room. Huber Tamayo MD EST TT: 11/25/2018 03:56 AM EST DICTATION NUMBER: [id number] BRITNEYIS JOB NUMBER: [id number] CC: Rocky Oquendo MD, PhD Edited by Huber Tamayo 11/30/2018 07:31:32 PM Edited by Huber Tamayo 11/30/2018 07:39:51 PM Edited by Huber Tamayo 11/30/2018 07:40:32 PM Edited by Huber Tamayo 12/02/2018 07:35:59 PM Edited by Huber Tamayo 12/02/2018 07:42:[address] Dr[address] Huber Tamayo 12/02/2018 07:42:42 PM CLINICAL EVENT Observed: 11/22/2018 Status: UNK Source: [facility] NOTE-NEUROSURGERY UPDATE 8:26 PM HOSPITALS REPOSITORY NOTE Event: Topic: Neurosurgery update note Details: Pre-operative review of CXR demonstrates interval RLL effusion/consolidation. Currently stable from respiratory standpoint. Conveyed plan for diuresis overnight to primary team. Please page with questions concerns. Patient is scheduled for 7:15 AM start on 11/23 for thoracic decompression/instrumented fusion. Provider / Team Contact Information: Provider/Team Contact Info-Pager Number: [phone] Electronic Signatures: Diane Ruiz ( (Resident)) (Signed 22-Nov-2018 20:27) Authored: Event, Provider / Team Contact Information Last Updated: 22-Nov-2018 20:27 by Diane Ruiz ( (Resident)) BN SPINE, LUMBOSACRAL; 2 Observed: 11/22/2018 Status: F Source: [facility] OR 3 VIEWS 8:18 PM HOSPITALS REPOSITORY Patient Name: TRISH HUNT STUDY: BN SPINE, LUMBOSACRAL; 2 OR 3 VIEWS; THORACIC SPINE AP/LAT; 11/22/2018 8:18 pm INDICATION: Signs/Symptoms: preop planning. COMPARISON: L-spine CT dated 11/14/2018. ACCESSION NUMBER(S): [id number]; [id number] ORDERING CLINICIAN: DEBORAH ESPANA FINDINGS: Two views of the thoracic spine including AP and lateral views, and four views of the lumbar spine including AP and lateral views, Evaluation is significantly limited due to overlying soft tissue shadow. There are 5 dtq-pbh-[id number] lumbar type vertebrae. There is again pathologic compression fracture of T10 vertebral body, with underlying mass better seen on CT dated 11/14/2018. Evaluation of other lesions observed on T9, T11, and L5 are not appreciated on plain film radiograph. There is multilevel discogenic degenerative changes, worst in the lower lumbar spine. No significant spondylolisthesis, however evaluation of the lower lumbar spine is limited due to overlying soft tissue density. IMPRESSION: 1. Unchanged, pathologic fracture at T10 vertebral body with history of known neoplasm. 2. Evaluations of other lesions at T9, T11 and L5 are not appreciated on plain radiograph, better seen on CT dated on 11/14/2018. I personally reviewed the images/study and I agree with the findings as stated. This study was interpreted at [facility], [place], [place], [place]. Electronically signed by: ASHLEY MONTERO MD BN THORACIC SPINE Observed: 11/22/2018 Status: F Source: [place] AP/LAT 8:18 PM HOSPITALS REPOSITORY Patient Name: TRISH HUNT STUDY: BN SPINE, LUMBOSACRAL; 2 OR 3 VIEWS; THORACIC SPINE AP/LAT; 11/22/2018 8:18 pm INDICATION: Signs/Symptoms: preop planning. COMPARISON: L-spine CT dated 11/14/2018. ACCESSION NUMBER(S): [id number]; [id number] ORDERING CLINICIAN: DEBORAH ESPANA FINDINGS: Two views of the thoracic spine including AP and lateral views, and four views of the lumbar spine including AP and lateral views, Evaluation is significantly limited due to overlying soft tissue shadow. There are 5 tzp-wra-ojwfpeq lumbar type vertebrae. There is again pathologic compression fracture of T10 vertebral body, with underlying mass better seen on CT dated 11/14/2018. Evaluation of other lesions observed on T9, T11, and L5 are not appreciated on plain film radiograph. There is multilevel discogenic degenerative changes, worst in the lower lumbar spine. No significant spondylolisthesis, however evaluation of the lower lumbar spine is limited due to overlying soft tissue density. IMPRESSION: 1. Unchanged, pathologic fracture at T10 vertebral body with history of known neoplasm. 2. Evaluations of other lesions at T9, T11 and L5 are not appreciated on plain radiograph, better seen on CT dated on 11/14/2018. I personally reviewed the images/study and I agree with the findings as stated. This study was interpreted at [facility], [place], [place], [place]. Electronically signed by: ASHLEY MONTERO MD URINALYSIS Collected: 11/22/2018 Status: F Source: [place] 1:51 PM [facility] REPOSITORY TYPE CODE TESTS RESULT OUT OF REFERENCE UNITS RANGE LAB COLU(LOINC STRAW,YELLOW ) COLOR YELLOW LAB APPRU(LOIN CLEAR C) APPEARANCE CLEAR LAB SPGRU(LOIN 1.005 - 1.035 C) SPECIFIC GRAVITY 1.013 LAB YANCY(LOINC) 5.0 - 8.0 pH 7.0 LAB PROTU(LOIN NEGATIVE mg/dL C) PROTEIN NEGATIVE LAB GLUCU(LOIN NEGATIVE mg/dL C) GLUCOSE NEGATIVE LAB BLDU(LOINC NEGATIVE ) BLOOD NEGATIVE LAB KETU(LOINC NEGATIVE mg/dL ) KETONES NEGATIVE LAB BILIU(LOIN NEGATIVE C) BILIRUBIN NEGATIVE LAB UROU2(LOIN 0.0 - 1.9 mg/dL C) UROBILINOGEN <2.0 LAB NITRU(LOIN NEGATIVE C) NITRITE NEGATIVE LAB LEUKU(LOIN NEGATIVE C) LEUKOCYTE ESTERASE NEGATIVE Performed By: #### UA #### [facility] [id number] [place] [address] TYPE + SCREEN Collected: 11/22/2018 Status: F Source: [place] 1:51 [facility] REPOSITORY TYPE CODE TESTS RESULT OUT OF REFERENCE UNITS RANGE LAB ABORH(LOINC ) ABO TYPE O LAB RH(LOINC) RH TYPE POS LAB ABSC(LOINC) ANTIBODY NEG SCREEN Performed By: #### T+S #### [facility] [address] [place] [address] DAILY PROGRESS Observed: 11/22/2018 Status: COMPLETED Source: [facility]ERS[facility] NOTE-PALLIATIVE CARE 1:37 PM HOSPITALS REPOSITORY Consult Type: subsequent visit/care Service: Palliative Care Subjective Data: TRISH HUNT is a 73 year old Female who is Hospital Day # 11. Additional Information: Ms. Hunt continues to feel pain but notes that it comes and goes, often worse if she moves around or sits too long. Nausea controlled with phenergan. Able to concentrate on things other than pain today. DETONATOR ASSEMBLER requirements per EMR: 11/21 (11/21 4:20AM- 11/22 4:52AM): 4.2mg dilaudid = 84 OME 11/20 (to 11/21 4:20AM): 2.4mg dilaudid = 48 OME Objective Data: Objective Information: T PRBPSpO2 [id number]% Date/Time11/22 11: 11: 11: 11: 11:46 Range(35.6C - 37C ) (75 - 105 ) (18 - 18 ) (149 - 175 )/ (61 - 107 ) (91% - 98% ) As of 21-Nov-2018 14:45:00, patient is on 1 L/min of oxygen via nasal cannula. Highest temp of 37 C was recorded at 11/21 14:45 Pain reported at 11/22 8:20: 6 Physical Exam: Constitutional: Overweight woman, no acute distress, appears comfortable Eyes: pupils 2mm bilaterally ENMT: mucus membranes moist Respiratory/Thorax: coarse sounds on auscultation bilaterally, no rhonchi/rales/wheezes Cardiovascular: regular rate and rhythm without murmurs/rubs/gallops, s1/s2 Gastrointestinal: soft, no masses appreciated. some bowel sounds. nontender to light or deep palpation even over RUQ. Extremities: warm, well perfused, +1 pitting edema bilaterally Psychological: pleasant, conversant Skin: anicteric, brusing on posterior R arm Medication: Medications: Continuous Medications 1. HYDROmorphone DETONATOR ASSEMBLER 25 mg/ NaCL 0.9% 50 mL: 25 mg IV DETONATOR ASSEMBLER <Continuous> Scheduled Medications 1. Acetaminophen: 975 mg Oral <User Schedule> 2. Dexamethasone: 4 mg Oral <User Schedule> 3. Dextromethorphan 30 mg - guaiFENesin 600 mg Extended Release: 1 tablet(s) Oral Every 12 Hours 4. Enoxaparin SubCutaneous: 40 mg SubCutaneous Every 12 Hours 5. Fludeoxyglucose F-18 - (Radiology Contrast): 10 milliCurie IntraVenous Push Once 6. Losartan: 50 mg Oral Once 7. Pantoprazole: 40 mg Oral Daily 8. Polyethylene Glycol: 17 gram(s) Oral 2 Times a Day 9. Simvastatin: 20 mg Oral At Bedtime 10. Sodium Chloride 0.9% Injectable Flush: 10 mL IntraVenous Flush Every 12 Hours PRN Medications 1. Albuterol 2.5mg - Ipratropium 0.5 mg/ 3mL Neb Soln: 3 mL Inhalation Every 4 Hours 2. Bisacodyl Rectal: 10 mg Rectal Daily 3. Heparin Flush 10 unit/ mL PF Injectable: 5 mL IntraVenous Flush Every 12 Hours 4. Heparin Flush 10 unit/ mL PF Injectable PRN: 5 mL IntraVenous Flush According to Flush Policy 5. Loratadine: 10 mg Oral Daily 6. Naloxone Injectable: 0.2 mg IntraVenous Push Once 7. Ondansetron Injectable: 4 mg IntraVenous Push Every 6 Hours 8. Polyethylene Glycol: 17 gram(s) Oral Daily 9. Promethazine IV Piggy Back: 12.5 mg IntraVenous Piggyback Every 6 Hours 10. Sodium Chloride 0.9% Injectable Flush PRN: 10 mL IntraVenous Flush According to Flush Policy 11. Sodium Chloride 0.9% Injectable Flush PRN: 20 mL IntraVenous Flush According to Flush Policy 12. Sore Throat Lozenge: 1 lozenge(s) Oral Every 8 Hours Recent Lab Results: Results: I have reviewed these laboratory results: Complete Blood Count 22-Nov-2018 10:44:00 ResultValue White Blood Cell Count 10.2 Nucleated Erythrocyte Count 0.0 Red Blood Cell Count 4.58 HGB 14.0 HCT 43.9 MCV 96 MCHC 31.9 L PLT 324 RDW-CV 12.9 Renal Function Panel 22-Nov-2018 10:44:00 ResultValue Glucose, Serum 92 NA 141 K 3.9 CL 103 Bicarbonate, Serum 28 Anion Gap, Serum 14 BUN 27 H CREAT 0.74 GFR-Non >60 GFR- >60 Calcium, Serum 9.5 Phosphorus, Serum 2.7 ALB 3.7 Coagulation Screen 22-Nov-2018 10:44:00 ResultValue Prothrombin Time, Plasma 12.0 International Normalized Ratio, Plasma 1.1 Activated Partial Thromboplastin Time 33 Assessment and Plan: Assessment: Ms. Hunt is a 73 year old F with history of HTN, DM2 with morbid obesity, hypothyroidism, HLD, presenting as transfer from [facility] for back pain due to spinal lesions, highly suspicious for lung cancer metastases in setting of recent workup. Palliative care was consulted for pain management. #Pain in R flank, likely related to bony metastases, currently not well controlled and patient with sedation #Bony pain - continue dexamethasone 4mg twice a day for bony pain (8am/4pm dosing to minimize side effect profile) --> continue PPI while on steroids - please start pamidronate 90mg once for bony pain #Further pain coverage. Minimal response with morphine and patient's pain control needs not yet fully established. - continue hydromorphone DETONATOR ASSEMBLER (0.2mg q10min dosing) especially during perioperative period - continue bowel regimen with miralax daily to avoid constipation #Code status/living will: in paper chart - patient expressed desire to be DNR/DNI, updated in EMR Thank you for allowing us to participate in the care of this patient. We will continue to follow. Please contact us for any questions via [facility] or pager [phone]. Nessa Mercado Internal Medicine PGY-1 Signature/Cosignature/Attestation: Attending AttestationI saw and evaluated the patient. I personally obtained the almonte and critical portions of the history and physical exam or was physically present for almonte and critical portions performed by the resident/fellow. I reviewed the resident/fellows documentation and discussed the patient with the resident/fellow. I agree with the resident/fellows medical decision making as documented in the residents note. I personally evaluated the patient (as noted in the above attestation) on 22-Nov-2018 Comments/ Additional Findings Continue DETONATOR ASSEMBLER; anticipate surgery tomorrow and perioperatively would expect significant changes in pain levels so a DETONATOR ASSEMBLER can be a good strategy as it is most flexible and responsive to patient's needs. Consider pamidronate if okay'ed by surgical team. Will follow. Call with questions. [id number] Electronic Signatures: Nessa Mercado (Resident)) (Signed 22-Nov-2018 13:44) Authored: Service, Subjective Data, Objective Data, Assessment and Plan Annette Keller) (Signed 22-Nov-2018 17:58) Authored: Service, Signature/Cosignature/Attestation Last Updated: 22-Nov-2018 17:58 by Annette Keller) TH CHEST 1 VIEW Observed: 11/22/2018 Status: F Source: [place] 12:45 PM HOSPITALS REPOSITORY Patient Name: TRISH HUNT STUDY: TH CHEST 1 VIEW; 11/22/2018 12:45 pm INDICATION: Signs/Symptoms: preop. COMPARISON: None. ACCESSION NUMBER(S): [id number] ORDERING CLINICIAN: DOMINIC PRECIADO FINDINGS: CARDIOMEDIASTINAL SILHOUETTE: Cardiomediastinal silhouette is normal in size and configuration. LUNGS: Interval worsening in right basilar consolidation/effusion. No pneumothorax. ABDOMEN: No remarkable upper abdominal findings. BONES: No acute osseous changes. IMPRESSION: 1. Correlate with interval effusion or basilar infiltrate/postobstructive pneumonia Electronically signed by: Dashawn MARCOS MD DAILY PROGRESS Observed: 11/22/2018 Status: COMPLETED Source: [place] NOTE-MEDICINE 11:50 AM HOSPITALS REPOSITORY Service: Medicine Subjective Data: TRISH HUNT is a 73 year old Female who is Hospital Day # 11. Objective Data: Objective Information: T PRBPSpO2 [id number]% Date/Time11/22 11: 11: 11: 11: 11:46 Range(35.6C - 37C ) (75 - 105 ) (18 - 18 ) (149 - 175 )/ (61 - 107 ) (91% - 98% ) As of 21-Nov-2018 14:45:00, patient is on 1 L/min of oxygen via nasal cannula. Highest temp of 37 C was recorded at 11/21 14:45 Pain reported at 11/22 8:20: 6 Physical Exam: Constitutional: sitting up in bed, NAD Eyes: clear sclera ENMT: MMM Respiratory/Thorax: CTAB, nonlabored, on RA, moist cough noted, speaking in full sentences Cardiovascular: RRR, S1S2 Genitourinary: external catheter with bev urine Musculoskeletal: MAEx4 Extremities: +1-2 pitting edema Neurological: A&Ox3, no focal deficits Psychological: pleasant, calm and cooperative Skin: intact, no rashes Medication: Medications: Continuous Medications 1. HYDROmorphone DETONATOR ASSEMBLER 25 mg/ NaCL 0.9% 50 mL: 25 mg IV DETONATOR ASSEMBLER <Continuous> Scheduled Medications 1. Acetaminophen: 975 mg Oral <User Schedule> 2. Dexamethasone: 4 mg Oral <User Schedule> 3. Dextromethorphan 30 mg - guaiFENesin 600 mg Extended Release: 1 tablet(s) Oral Every 12 Hours 4. Enoxaparin SubCutaneous: 40 mg SubCutaneous Every 12 Hours 5. Fludeoxyglucose F-18 - (Radiology Contrast): 10 milliCurie IntraVenous Push Once 6. Losartan: 50 mg Oral Once 7. Pantoprazole: 40 mg Oral Daily 8. Polyethylene Glycol: 17 gram(s) Oral 2 Times a Day 9. Simvastatin: 20 mg Oral At Bedtime 10. Sodium Chloride 0.9% Injectable Flush: 10 mL IntraVenous Flush Every 12 Hours PRN Medications 1. Albuterol 2.5mg - Ipratropium 0.5 mg/ 3mL Neb Soln: 3 mL Inhalation Every 4 Hours 2. Bisacodyl Rectal: 10 mg Rectal Daily 3. Heparin Flush 10 unit/ mL PF Injectable: 5 mL IntraVenous Flush Every 12 Hours 4. Heparin Flush 10 unit/ mL PF Injectable PRN: 5 mL IntraVenous Flush According to Flush Policy 5. Loratadine: 10 mg Oral Daily 6. Naloxone Injectable: 0.2 mg IntraVenous Push Once 7. Ondansetron Injectable: 4 mg IntraVenous Push Every 6 Hours 8. Polyethylene Glycol: 17 gram(s) Oral Daily 9. Promethazine IV Piggy Back: 12.5 mg IntraVenous Piggyback Every 6 Hours 10. Sodium Chloride 0.9% Injectable Flush PRN: 10 mL IntraVenous Flush According to Flush Policy 11. Sodium Chloride 0.9% Injectable Flush PRN: 20 mL IntraVenous Flush According to Flush Policy 12. Sore Throat Lozenge: 1 lozenge(s) Oral Every 8 Hours Recent Lab Results: Results: I have reviewed these laboratory results: Complete Blood Count 22-Nov-2018 10:44:00 ResultValue White Blood Cell Count 10.2 Nucleated Erythrocyte Count 0.0 Red Blood Cell Count 4.58 HGB 14.0 HCT 43.9 MCV 96 MCHC 31.9 L PLT 324 RDW-CV 12.9 Renal Function Panel 22-Nov-2018 10:44:00 ResultValue Glucose, Serum 92 NA 141 K 3.9 CL 103 Bicarbonate, Serum 28 Anion Gap, Serum 14 BUN 27 H CREAT 0.74 GFR-Non >60 GFR- >60 Calcium, Serum 9.5 Phosphorus, Serum 2.7 ALB 3.7 Coagulation Screen 22-Nov-2018 10:44:00 ResultValue Prothrombin Time, Plasma 12.0 International Normalized Ratio, Plasma 1.1 Activated Partial Thromboplastin Time 33 Assessment and Plan: Assessment: Trish Hunt is a 73 year old female former smoker w/ PMHx significant for HTN, Impaired Fasting Glucose, Hyperlipidemia, Peripheral Neuropathy, Hypothyroidism, GERD, Morbid Obesity and Recent Spinal Cord Stimulator Implant who is transferred to [facility] 11/12/18 from [facility] after presenting with intractable progressive back pain with SOB and found on imaging to have a lung mass with adenopathy and suspected spinal metastasis for neurosurgical evaluation and further care. In Shared Visit with Dr. Oquendo Metastatic Lung CA/T10 pathologic fracture CT Chest showed Occlusion of the right middle bronchus with pleural effusion with suspected spinal metastasis. Pulmonary medicine and oncology were consulted with a Right Thoracentesis via U/S obtained 11/12/18 for 140 ml of fluid. The pleural fluid is reported to be exudative (cloudy, predominant monocytes (87%), TP: 2.5, LDH 500 (serum LDH 437), cytology was no malignant cells. MRI of the brain 11/14/18 without lesions. Pulmonology consulted and a Bronchoscopy w/ EBUS with sampling of right hilar mass and subcarinal lymph node which were both positive for malignant cells. PET showed right central middle lobe malignancy with multiple metastasis to the axial skeleton, mediastinal and bilateral hilar lymph nodes. At Neurosurgery request, an MRI of the entire spine was done, consistent with T10 fracture and additional metastases. -Lymph Node Biopsy showing Adenocarcinoma of lung origin -Oncology consulted, appreciate input - will need follow up with lung oncology team, Dr Mahoney or Dr Rincon -Rad Onc consulted, appreciate input - will start radiation therapy in the post-operative setting at about 2-3 weeks out to allow for adequate healing -Plan for OR with neurosurgery 11/23 for decompression and thoracolumbar spine fusion -NPO at 0001, type and screen sent, preop labs, CXR, EKG, hold DVT prophylaxis at 0001, 2 units PRBC crossmatched for OR, place trinidad catheter Back Pain Reports some improvement after initiation of DETONATOR ASSEMBLER -Palliative care consulted to aid in pain management -Continue Acetaminophen 975 mg by mouth three times a day -Continue Dilaudid DETONATOR ASSEMBLER 0.2 dose with 10 min lock out and 1.2mg hourly max -Phenergan PRN -Continue Dexamethasone 4mg BID (0800 and 1600), ok per neurosurgery -Neurosurgery has planned for OR on 11/23 -PT Hypoxia/COPD Has been requiring O2 via nasal cannula. Pleural effusions present on imaging. Wheezing on exam today, reports having nebulizer at home but per granddaughter she hardly uses. O2 has been weaed to 1LNC. -Duonebs Q6h and PRN -Continue Mucinex DM ER 600mg Q12H -Wean O2 as tolerated -Bronchial Hygiene TID HTN SBP noted to be in 170s, home regiment in HCTZ/Losartan 12.5mg/50mg. -Give 1 time dose Losartan 50mg due to upcoming surgery -40mg IV Lasix once Constipation Likely related to narcotics. BM this am. -Continue Miralax twice a day and PRN -Continue Bisacodyl suppository daily PRN Impaired Fasting Glucose Denies diagnosis of Diabetes. States was told had elevated blood glucose 20 years ago with Metformin initiated as preventive. 07/2018 Hgb A1C normal. Likely will become elevated in setting of starting Dexamethasone. -hold home Metformin ER -Monitor on am labs Hypothyroid TSH 0.86 -Continue home Levothyroxine 50 mcg daily Codes status Discussed with patient, she reports she did not fully understand what palliative care had stated when speaking of code status, at this time she wishes to have full interventions. Her would be the next decision maker and has a living will. She does not wish to have prolonging life support. -Full code DVT prophylaxis -Enoxaparin 40 mg subcutaneous twice a day, on hold at 0001 for OR tomorrow -Sequential compression devices Dispo Lives with . No home needs identified at present, but pain is presenting a challenge for ambulation. Family at bedside and supportive. -PT recommending SNF at this time, re-eval after OR Signature/Cosignature/Attestation: Attending Only - Shared Visit with Advanced Practice ProviderThis is a shared visit. I have reviewed the Advanced Practice Providers encounter note, approve the Advanced Practice Providers documentation, and provide the following additional information from my personal encounter. Comments/ Additional Findings I resumed the care after the weekend off. DETONATOR ASSEMBLER helped with pain control and the patient felt much happier. No fever or desaturation reported past 24h. Continues to cough and has been bringing up thick sputum. Didn't like that she has to be NPO again for pending surgery. At the time we arrived in her room she was awake and fully engaged in conversation. She tried to be witty. Physical examination: Per the WHO definition of age the patient is an elderly female fully oriented in mild detectable physical distress due to pain. Was less dyspnoic still coughing wet. Maintained good conversation. Keeps eyes open, nonicteric sclera, round pupils symmetrically respond to light. Full range of motion in all directions. Mouth and throat mucosa clean, moist, no ulcers or thrush. Thick supple neck, no JVD, or bruit appreciated. Supraclavicular fossa bulging. Appeared eupneic with bigger tidal volumes, fewer expiratory wheezing. Regular rhythm, distant S1/S2 no appreciable murmur or gallop. Abdomen large with normal bowel sounds, no tenderness or organomegaly appreciated. She had pitting edema in both legs/feet (R>L). External urine sample collector attached, urine is dark clear. Neuro exam showed no focal deficit. Motion in bed triggers back pain, she avoids turning. Coherent, did appear depressed. The rest of today's physical findings are similar to those noted/reported 3 days ago. I reviewed the most recent labs and discussed with the GRIEVANCE MANAGER. WBC: 10.2 Hctr: 43.9 Platelet: 324 BUN/creatinine: 27/0.74 Anatomic pathology report: FINAL CYTOLOGICAL INTERPRETATION A. FINE NEEDLE ASPIRATION 11 RS LYMPH NODE, CYTOLOGY AND CELL BLOCK: -- MALIGNANT CELLS DERIVED FROM ADENOCARCINOMA. B. FINE NEEDLE ASPIRATION 7 LYMPH NODE, CYTOLOGY AND CELL BLOCK: -- MALIGNANT CELLS DERIVED FROM ADENOCARCINOMA, SEE NOTE. No new radiological imaging; previous ones I reviewed, read the report and discussed with the GRIEVANCE MANAGER. I reviewed the medications and discussed with the GRIEVANCE MANAGER. 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 Pain has been managed optimally with DETONATOR ASSEMBLER. Palliative care team is following the patient, input appreciated. Continue acetaminophen as ordered. Ortho team potentially may do vertebral stabilization on Nov 23. Radiation oncology to evaluate the condition. Per the recommendations the patient has to have surgery first then ~ 4 weeks later radiation treatment. Lung mass with lymphadenopathy in the mediastinum. Final report: adenocarcinoma of lung origin. Oncology has seen the patient before biopsy report. Additional testing with the biopsy sample suggested to evaluate for the most appropriate nonsurgical treatment. Hypertension. Patient has been on losartan/HCTZ at home, In preparation for surgery will not resume the home anti HTN meds yet. Will give a dose of furosemide 40mg iv one time. Losartan 50mg one time . Insert bladder catheter. Follow urine output. COPD. Mixture of ipratropium with albuterol scheduled, q6h. Continue guaifenesin. Will follow closely. Electronic Signatures: Rocky Oquendo) (Signed 22-Nov-2018 17:05) Authored: Signature/Cosignature/Attestation Dominic Preciado (ALIGNMENT SPECIALIST-[facility]) (Signed 22-Nov-2018 14:53) Authored: Service, Subjective Data, Objective Data, Assessment and Plan Last Updated: 22-Nov-2018 17:05 by Rocky Oquendo) REQUEST-LEUKOREDUCED RED CELLS Collected: Status: F Source: [place] 11/22/2018 10:54 AM HOSPITALS REPOSITORY TYPE CODE TESTS RESULT OUT OF RANGE REFERENCE UNITS LAB [facility](LOINC) ORDER RECD REQUEST-LEUK OREDUCED RED CELLS Performed By: #### OLPC #### [facility] [facility] [id number] [place] [address] CBC Collected: 11/22/2018 Status: F Source: [facility] 10:44 AM [facility]OSPITALS REPOSITORY TYPE CODE TESTS RESULT OUT OF REFERENCE UNITS RANGE LAB WBCR(LOINC 4.4 - 11.3 x10E9/L ) WBC 10.2 LAB NRBC(LOINC 0.0-0.0 /100 WBC ) NUCLEATED RBC 0.0 LAB RBCCT(LOIN 4.00 - 5.20 x10E12/L C) RBC 4.58 LAB HGB(LOINC) 12.0 - 16.0 g/dL HGB 14.0 LAB HCT(LOINC) 36.0 - 46.0 % HCT 43.9 LAB MCV(LOINC) 80 - 100 fL MCV 96 LAB MCHC2(LOIN 32.0 - 36.0 g/dL C) Low MCHC 31.9 LAB PLTCT(LOIN 150 - 450 x10E9/L C) PLT 324 LAB RDWCV(LOIN 11.5 - 14.5 % C) RDW-CV 12.9 Performed By: #### CBC #### [facility] [id number] [place] [address] RENAL FUNCTION PANEL Collected: 11/22/2018 Status: F Source: [place] 10:44 AM [facility] REPOSITORY TYPE CODE TESTS RESULT OUT OF REFERENCE UNITS RANGE LAB GLU(LOINC) 74 - 99 mg/dL GLUCOSE 92 LAB SOD(LOINC) 136 - 145 mmol/L SODIUM 141 LAB K(LOINC) 3.5 - 5.3 mmol/L POTASSIUM 3.9 LAB CHLOR(LOIN 98 - 107 mmol/L C) CHLORIDE 103 LAB BIC(LOINC) 21 - 32 mmol/L BICARBONATE 28 LAB ANGAP(LOIN 10 - 20 mmol/L C) ANION GAP 14 LAB UREA(LOINC 6 - 23 mg/dL ) UREA High NITROGEN 27 LAB CREA(LOINC 0.50 - 1.05 mg/dL ) CREATININE 0.74 LAB GFRFN(LOIN >60 mL/min/1.7 C) 3m2 GFR-NON AM. >60 LAB GFRAA(LOIN >60 mL/min/1.7 C) 3m2 GFR- AM. >60 Result Comment: CALCULATIONS OF ESTIMATED GFR ARE PERFORMED USING THE MDRD STUDY EQUATION FOR THE IDMS-TRACEABLE CREATININE METHODS. CLIN CHEM 2007;53:766-72 LAB CA(LOINC) 8.6 - 10.6 mg/dL CALCIUM 9.5 LAB PHOS(LOINC) 2.5 - 4.9 mg/dL PHOSPHORUS 2.7 Result Comment: The performance characteristics of phosphorus testing in heparinized plasma have been validated by the individual laboratory site where testing is performed. Testing on heparinized plasma is not approved by the FDA; however, such approval is not necessary. LAB ALB(LOINC) 3.4 - 5.0 g/dL ALBUMIN 3.7 Performed By: #### RENAL #### [facility] [id number] [place] [address] COAGULATION SCREEN Collected: 11/22/2018 Status: F Source: [place] 10:44 AM [facility]ITALS REPOSITORY TYPE CODE TESTS RESULT OUT OF REFERENCE UNITS RANGE LAB PT(LOINC) 9.7 - 12.7 sec PROTHROMBIN TIME 12.0 Result Comment: Note new reference range as of 09/07/2018. LAB INR(LOINC) 0.9 - 1.1 PT, INR 1.1 LAB APTT(LOINC) 28 - 38 sec APTT 33 Result Comment: Note new reference range as of 09/07/2018. THE APTT IS NO LONGER USED FOR MONITORING UNFRACTIONATED HEPARIN THERAPY. FOR MONITORING HEPARIN THERAPY, USE THE HEPARIN ASSAY. Performed By: #### COAGS #### [facility] [address] [place] [address] DAILY PROGRESS Observed: 11/21/2018 Status: COMPLETED Source: [facility]-MEDICINE 12:45 PM HOSPITALS REPOSITORY Service: Medicine Subjective Data: TRISH HUNT is a 73 year old Female who is Hospital Day # 10. Additional Information: still rating pain at an 8 but reports much better than previous Objective Data: Objective Information: T PRBPSpO2 [id number]% Date/Time11/21 11: 11: 11: 11: 11:30 Range(36C - 36.6C ) (80 - 92 ) (18 - 18 ) (142 - 154 )/ (75 - 85 ) (93% - 96% ) As of 21-Nov-2018 07:30:00, patient is on 1 L/min of oxygen via nasal cannula. Pain reported at 11/21 10:00: 5 Pain reported at 11/21 9:09: 8 Physical Exam: Constitutional: laying in bed, NAD, alert and awake Eyes: clear sclera ENMT: MMM Respiratory/Thorax: Respirations nonlabored, scattered rhonchi at bases, on 1LNC Cardiovascular: RRR, S1S2 Gastrointestinal: BS+, soft, nontender, nondistended, obese Extremities: no edema, palpable pulses Neurological: A&Ox3 Psychological: calm Skin: intact, no lesions/rashes Medication: Medications: Continuous Medications 1. HYDROmorphone DETONATOR ASSEMBLER 25 mg/ NaCL 0.9% 50 mL: 25 mg IV DETONATOR ASSEMBLER <Continuous> Scheduled Medications 1. Acetaminophen: 975 mg Oral <User Schedule> 2. Dexamethasone: 4 mg Oral <User Schedule> 3. Dextromethorphan 30 mg - guaiFENesin 600 mg Extended Release: 1 tablet(s) Oral Every 12 Hours 4. Enoxaparin SubCutaneous: 40 mg SubCutaneous Every 12 Hours 5. Fludeoxyglucose F-18 - (Radiology Contrast): 10 milliCurie IntraVenous Push Once 6. Pantoprazole: 40 mg Oral Daily 7. Polyethylene Glycol: 17 gram(s) Oral 2 Times a Day 8. Simvastatin: 20 mg Oral At Bedtime 9. Sodium Chloride 0.9% Injectable Flush: 10 mL IntraVenous Flush Every 12 Hours PRN Medications 1. Albuterol 2.5mg - Ipratropium 0.5 mg/ 3mL Neb Soln: 3 mL Inhalation Every 4 Hours 2. Bisacodyl Rectal: 10 mg Rectal Daily 3. Heparin Flush 10 unit/ mL PF Injectable: 5 mL IntraVenous Flush Every 12 Hours 4. Heparin Flush 10 unit/ mL PF Injectable PRN: 5 mL IntraVenous Flush According to Flush Policy 5. Loratadine: 10 mg Oral Daily 6. Naloxone Injectable: 0.2 mg IntraVenous Push Once 7. Ondansetron Injectable: 4 mg IntraVenous Push Every 6 Hours 8. Polyethylene Glycol: 17 gram(s) Oral Daily 9. Promethazine IV Piggy Back: 12.5 mg IntraVenous Piggyback Every 6 Hours 10. Sodium Chloride 0.9% Injectable Flush PRN: 10 mL IntraVenous Flush According to Flush Policy 11. Sodium Chloride 0.9% Injectable Flush PRN: 20 mL IntraVenous Flush According to Flush Policy 12. Sore Throat Lozenge: 1 lozenge(s) Oral Every 8 Hours Assessment and Plan: Assessment: Trish Hunt is a 73 year old female former smoker w/ PMHx significant for HTN, Impaired Fasting Glucose, Hyperlipidemia, Peripheral Neuropathy, Hypothyroidism, GERD, Morbid Obesity and Recent Spinal Cord Stimulator Implant who is transferred to [facility] 11/12/18 from [facility] after presenting with intractable progressive back pain with SOB and found on imaging to have a lung mass with adenopathy and suspected spinal metastasis for neurosurgical evaluation and further care. In Shared Visit with Dr. Yusuf Metastatic Lung CA/ T10 pathologic fracture CT Chest showed Occlusion of the right middle bronchus with pleural effusion with suspected spinal metastasis. Pulmonary medicine and oncology were consulted with a Right Thoracentesis via U/S obtained 11/12/18 for 140 ml of fluid. The pleural fluid is reported to be exudative (cloudy, predominant monocytes (87%), TP: 2.5, LDH 500 (serum LDH 437), cytology was no malignant cells. MRI of the brain 11/14/18 without lesions. Pulmonology consulted and a Bronchoscopy w/ EBUS with sampling of right hilar mass and subcarinal lymph node which were both positive for malignant cells. PET showed right central middle lobe malignancy with multiple metastasis to the axial skeleton, mediastinal and bilateral hilar lymph nodes. At Neurosurgery request, an MRI of the entire spine was done, consistent with T10 fracture and additional metastases. -Lymph Node Biopsy showing Adenocarcinoma of lung origin -Oncology consulted, appreciate input - will need follow up with lung oncology team, Dr Mahoney or Dr Rincon -Rad Onc consulted, appreciate input - will start radiation therapy in the post-operative setting at about 2-3 weeks out to allow for adequate healing -Plan for OR with neurosurgery 11/23 for decompression and thoracolumbar spine fusion Back Pain Reports some improvement after initiation of DETONATOR ASSEMBLER -Palliative care consulted to aid in pain management -Continue Acetaminophen 975 mg by mouth three times a day -Continue Dilaudid DETONATOR ASSEMBLER 0.2 dose with 10 min lock out and 1.2mg hourly max -Phenergan PRN -Continue Dexamethasone 4mg BID (0800 and 1600), ok per neurosurgery -Neurosurgery has planned for OR on 11/23 -PT Hypoxia/COPD Has been requiring O2 via nasal cannula. Pleural effusions present on imaging. Wheezing on exam today, reports having nebulizer at home but per granddaughter she hardly uses. O2 has been weaed to 1LNC. -Duonebs Q6h and PRN -Continue Mucinex DM ER 600mg Q12H -Wean O2 as tolerated -Bronchial Hygiene TID Constipation Likely related to narcotics. BM this am. -Continue Miralax twice a day and PRN -Continue Bisacodyl suppository daily PRN Impaired Fasting Glucose Denies diagnosis of Diabetes. States was told had elevated blood glucose 20 years ago with Metformin initiated as preventive. 07/2018 Hgb A1C normal. Likely will become elevated in setting of starting Dexamethasone. -hold home Metformin ER -Monitor on am labs Hypothyroid TSH 0.86 -Continue home Levothyroxine 50 mcg daily Codes status Discussed with patient, she reports she did not fully understand what palliative care had stated when speaking of code status, at this time she wishes to have full interventions. Her would be the next decision maker and has a living will. She does not wish to have prolonging life support. -Full code DVT prophylaxis -Enoxaparin 40 mg subcutaneous twice a day -Sequential compression devices. Dispo Lives with . No home needs identified at present, but pain is presenting a challenge for ambulation. Family at bedside and supportive. -PT recommending SNF at this time Signature/Cosignature/Attestation: Provider/Team Contact Info-Pager [phone] Attending Only - Shared Visit with Advanced Practice ProviderThis is a shared visit. I have reviewed the Advanced Practice Providers encounter note, approve the Advanced Practice Providers documentation, and provide the following additional information from my personal encounter. Comments/ Additional Findings Seen with the MACHINE SAND MIXER at the bedside. Reports to feeling OK, pain fairly controlled. No nausea/ vomiting Still with cough, blood tinged, dark sputum, breathing OK. Down to 1L NC O2. On exam, no distress lungs with improved air entry, no crackles/ wheeze S1 S2 regular rate, rhythm, no murmurs, rubs, gallops. obese, soft, no tenderness, BS+ trace edema vitals/ labs noted Plan Metastatic adeno Ca of the lung with t10 compression fracture Appreciate palliative care input, cont Dilaudid DETONATOR ASSEMBLER. fairly controlled today. Seen by Med/ Onc/ Rad/ Onc, appreciate input Planned for OR by Neuro surgery 11/23 Cont Decadron 4mg by mouth twice a day Acute hypoxic resp failure, requiring 2L o2, not been on O2 previously Cont aerosols, IS, bronchial hygiene. Other chronic issues stable, cont meds DVT prophylaxis SNF when medically stable Full Code. Risk stratification, based on RCRI patient with no major risk factors for surgery. No h/o underlying cardiac history/ CHF/ Renal failure, DM, with impaired glucose tolerance. Planned for Thoracic decompression and spinal fusion, is at moderate risk for surgery, given her COPD and hypoxia, requiring O2. Will need pulmonary toilet post op. Electronic Signatures: Dominic Preciado (ALIGNMENT SPECIALIST-GRIEVANCE MANAGER) (Signed 21-Nov-2018 12:51) Authored: Service, Subjective Data, Objective Data, Assessment and Plan, Signature/Cosignature/Attestation Casimiro Yusuf) (Signed 21-Nov-2018 15:58) Authored: Signature/Cosignature/Attestation Co-Signer: Service, Subjective Data, Objective Data, Assessment and Plan, Signature/Cosignature/Attestation Last Updated: 21-Nov-2018 15:58 by Casimiro Yusuf) DAILY PROGRESS Observed: 11/20/2018 Status: COMPLETED Source: [facility] 11:48 AM [facility]OSPITALS REPOSITORY Service: Medicine Subjective Data: TRISH UHNT is a 73 year old Female who is Hospital Day # 9. Objective Data: Objective Information: T PRBPSpO2 [id number]/7992% Date/Time11/20 11: 11: 11: 11: 11:22 Range(35.7C - 37.2C ) (73 - 81 ) (18 - 18 ) (119 - 152 )/ (67 - 83 ) (92% - 97% ) Highest temp of 37.2 C was recorded at 11/19 11:50 Pain reported at 11/19 12:12: 5 Pain reported at 11/20 7:16: 4 Physical Exam: Constitutional: A&OX3, family at the bedside Respiratory/Thorax: CTAB Cardiovascular: RRR Gastrointestinal: large, soft, nontender, BSx4 Genitourinary: periwick in place- clear yellow urine Musculoskeletal: MAEX4 Extremities: no edema Neurological: no focal deficit Psychological: Appropriate mood and behavior Skin: intact Medication: Medications: Continuous Medications 1. HYDROmorphone DETONATOR ASSEMBLER 25 mg/ NaCL 0.9% 50 mL: 25 mg IV DETONATOR ASSEMBLER <Continuous> Scheduled Medications 1. Acetaminophen: 975 mg Oral <User Schedule> 2. Dexamethasone: 4 mg Oral <User Schedule> 3. Dextromethorphan 30 mg - guaiFENesin 600 mg Extended Release: 1 tablet(s) Oral Every 12 Hours 4. Enoxaparin SubCutaneous: 40 mg SubCutaneous Every 12 Hours 5. Fludeoxyglucose F-18 - (Radiology Contrast): 10 milliCurie IntraVenous Push Once 6. Pantoprazole: 40 mg Oral Daily 7. Polyethylene Glycol: 17 gram(s) Oral 2 Times a Day 8. Simvastatin: 20 mg Oral At Bedtime 9. Sodium Chloride 0.9% Injectable Flush: 10 mL IntraVenous Flush Every 12 Hours PRN Medications 1. Albuterol 2.5mg - Ipratropium 0.5 mg/ 3mL Neb Soln: 3 mL Inhalation Every 4 Hours 2. Bisacodyl Rectal: 10 mg Rectal Daily 3. Heparin Flush 10 unit/ mL PF Injectable: 5 mL IntraVenous Flush Every 12 Hours 4. Heparin Flush 10 unit/ mL PF Injectable PRN: 5 mL IntraVenous Flush According to Flush Policy 5. Loratadine: 10 mg Oral Daily 6. Naloxone Injectable: 0.2 mg IntraVenous Push Once 7. Ondansetron Injectable: 4 mg IntraVenous Push Every 6 Hours 8. Polyethylene Glycol: 17 gram(s) Oral Daily 9. Promethazine IV Piggy Back: 12.5 mg IntraVenous Piggyback Every 6 Hours 10. Sodium Chloride 0.9% Injectable Flush PRN: 10 mL IntraVenous Flush According to Flush Policy 11. Sodium Chloride 0.9% Injectable Flush PRN: 20 mL IntraVenous Flush According to Flush Policy 12. Sore Throat Lozenge: 1 lozenge(s) Oral Every 8 Hours Radiology Results: Results: Impression: 1. Correlating with history of endobronchial lesion, features are consistent with right central middle lobe malignancy with multiple metastasis to the axial skeleton, mediastinal and bilateral hilar lymph nodes. 2. Focal avid FDG uptake in the right thyroid lobe. Thyroid ultrasound is advised for further follow-up as incidental FDG avid thyroid nodules can be malignant in up to 30% of cases. 3. Mild hypermetabolic right pleural effusion, with likely benign etiology. PET/CT Lung Ca Staging [Nov 17 2018 2:37PM] Assessment and Plan: Assessment: Trish Hunt is a 73 year old female former smoker w/ PMHx significant for HTN, Impaired Fasting Glucose, Hyperlipidemia, Peripheral Neuropathy, Hypothyroidism, GERD, Morbid Obesity and Recent Spinal Cord Stimulator Implant who is transferred to [facility] 11/12/18 from [facility] after presenting with intractable progressive back pain with SOB and found on imaging to have a lung mass with adenopathy and suspected spinal metastasis for neurosurgical evaluation and further care. In Shared Visit with Dr. Yusuf Metastatic Lung CA/ T10 pathologic fracture CT Chest showed Occlusion of the right middle bronchus with pleural effusion with suspected spinal metastasis. Pulmonary medicine and oncology were consulted with a Right Thoracentesis via U/S obtained 11/12/18 for 140 ml of fluid. The pleural fluid is reported to be exudative (cloudy, predominant monocytes (87%), TP: 2.5, LDH 500 (serum LDH 437), cytology was no malignant cells. MRI of the brain 11/14/18 without lesions. Pulmonology consulted and a Bronchoscopy w/ EBUS with sampling of right hilar mass and subcarinal lymph node which were both positive for malignant cells. PET showed right central middle lobe malignancy with multiple metastasis to the axial skeleton, mediastinal and bilateral hilar lymph nodes. At Neurosurgery request, an MRI of the entire spine was done, consistent with T10 fracture and additional metastases. -Lymph Node Biopsy showing Adenocarcinoma of lung origin -Oncology consulted, appreciate input - will need follow up with lung oncology team, Dr Mahoney or Dr Rincon -Rad Onc consulted, appreciate input - likely will hold off on any radiation until post operative period - going to OR with neurosurgery 11/23 for decompression and thoracolumbar spine fusion Back Pain -Palliative care consulted to aid in pain management -Continue Acetaminophen 975 mg by mouth three times a day - on dilaudid DETONATOR ASSEMBLER, but causing vomiting, phenergan had to be added but pain seems better controlled -Start Dexamethasone 4mg BID (0800 and 1600), ok per neurosurgery -Neurosurgery has planned for OR on 11/23 -PT Hypoxia/COPD Has been requiring O2 via nasal cannula. Pleural effusions present on imaging. Wheezing on exam today, reports having nebulizer at home but per granddaughter she hardly uses. -O2 at 2-3 liters PRN -Duonebs Q6h and PRN -Add Mucinex DM ER 600mg Q12H Constipation Likely related to narcotics. BM following Fleet enema 11/14/18, but none since. -Continue Miralax twice a day and PRN -Continue Bisacodyl suppository daily PRN Impaired Fasting Glucose Denies diagnosis of Diabetes. States was told had elevated blood glucose 20 years ago with Metformin initiated as preventive. 07/2018 Hgb A1C normal. Blood glucose 93 on fasting labs this am. -hold home Metformin ER -check blood glucose in a.m. with labs Hypothyroid TSH 0.86 -Continue home Levothyroxine 50 mcg daily Codes status Discussed with patient, she reports she did not fully understand what palliative care had stated when speaking of code status, at this time she wishes to have full interventions. Her would be the next decision maker and has a living will. She does not wish to have prolonging life support. -Full code DVT prophylaxis -Enoxaparin 40 mg subcutaneous twice a day -Sequential compression devices. Dispo Lives with . No home needs identified at present, but pain is presenting a challenge for ambulation. Family at bedside and supportive. -PT recommending SNF at this time Signature/Cosignature/Attestation: Provider/Team Contact Info-Pager [phone] Attending Only - Shared Visit with Advanced Practice ProviderThis is a shared visit. I have reviewed the Advanced Practice Providers encounter note, approve the Advanced Practice Providers documentation, and provide the following additional information from my personal encounter. Comments/ Additional Findings Seen with the MACHINE SAND MIXER at the bedside Overnight events noted, reported to having some nausea, likely related to narcotics but controlled with phenergan. Still with cough, blood tinged, dark sputum, breathing OK. On exam, no distress lungs with scattered crackles, fair air entry, end expiratory wheeze S1 S2 regular rate, rhythm, no murmurs, rubs, gallops. obese, soft, no tenderness, BS+ trace edema vitals/ labs noted Plan Metastatic adeno Ca of the lung with t10 compression fracture Appreciate palliative care input, cont Dilaudid DETONATOR ASSEMBLER. fairly controlled today. Seen by Med/ Onc/ Rad/ Onc, appreciate input Planned for OR by Neuro surgery 11/23 Started on Decadron 4mg by mouth twice a day Acute hypoxic resp failure, requiring 2L o2, not been on O2 previously Cont aerosols, IS, bronchial hygiene. Other chronic issues stable, cont meds DVT prophylaxis SNF when medically stable Full Code. Electronic Signatures: Jordan Saunders (ALIGNMENT SPECIALIST-GRIEVANCE MANAGER) (Signed 20-Nov-2018 15:14) Authored: Service, Subjective Data, Objective Data, Assessment and Plan, Signature/Cosignature/Attestation Casimiro Yusuf) (Signed 20-Nov-2018 18:34) Authored: Signature/Cosignature/Attestation Last Updated: 20-Nov-2018 18:34 by Casimiro Yusuf) EMERGENCY DEPARTMENT Observed: 11/20/2018 Status: F Source: [place] SUMMARY 8:05 AM [facility] REPOSITORY [facility] Medical Records Department [address] [place] [address] Emergency Department Summary 11/11/18 2343 MR#: [id number] Acct: [id number] Name: TRISH HUNT Rep #: [id number] : 1945 73 From: Sonia Arredondo DO PCP: Harjinder Braswell MD Status: DIS IN - ER Visit Summary Date of Service: 11/11/18 Chief Complaint: [Abdominal pain] History of Present Illness: The patient is a 73 F [presents the emergency department complaint of abdominal pain for the last 2-3 weeks. Patient complains of pain around her belt line and also wrapping around to her back. Patient states the pain is severe and rates it a 10 out of 10. Patient states the pain is worse with moving. She denies any pain rating down her legs. She has had no nausea or vomiting. She denies any diarrhea. She denies blood in her stool or black tarry stool. Patient saw her primary care physician yesterday who did some blood work which apparently was unremarkable. Patient has history of diabetes, hypertension, high cholesterol, hypothyroidism. Patient is an ex-smoker.] Physical Examination: [HEENT-PERRLA, EOMI. Cranial nerves II through XII grossly intact. TMs clear. Mucous membranes moist. No adenopathy. Cardiovascular-regular rate and rhythm without murmur or ectopy Lungs-clear to auscultation, chest wall stable without crepitus or subcu emphysema Abdomen-normoactive bowel sounds, soft, nontender, no rebound or rigidity, no peritoneal signs. I cannot reproduce her pain with palpation. Extremities-intact 4, normal range of motion, normal pulses, atraumatic] Test Results: [Lab work was reviewed from yesterday which was unremarkable therefore was not repeated today. CT scan of the abdomen and pelvis with IV and p.o. contrast ordered was read by radiology as bony metastasis involving the T10 and T11 vertebrae with partial collapse of T10. Patient had right pleural effusion and atelectasis. Patient had a collapse of the right middle lobe. No other evidence of acute intra-abdominal or pelvic abnormality. Patient was noted to be status post cholecystectomy and appendectomy.] CT scan of the chest obtained without contrast given that she had IV contrast for her CT abdomen and pelvis showed multiple destructive osseous lesions present concerning for metastatic disease. Probable associated cord compression at T10 level. Pre-and postcontrast thoracic spine MRI recommended when and if possible. Suggestion of right hilar mass on this limited noncontrast study with associated occlusion of the right middle lobe bronchus and right middle lobe consolidation and atelectasis. Consider PET/CT evaluation. Right pleural effusion. Diffuse mediastinal adenopathy. Emergency Department Course and Treatment: [Patient was medicated with Dilaudid and Zofran. Case was discussed with radiologist who recommended obtaining a CT scan of the chest as well.] Treatment Plan: [Admit for pain control and further workup and evaluation] Disposition: [Admit] Impression: [Intractable back and abdomen pain. Bony metastasis of T10 and T11] This note was generated with [employer] dictation software. It may contain incorrect words, spelling, and punctuation that were not noted in review of the chart prior to signing ED Disposition - Plan for ED Patient: Chief Complaint: Abd Pain Referrals: Harjinder Braswell MD [Primary Care Provider] - What to do if you have Problems For any increased pain, shortness of breath, bleeding, nausea or vomiting, chest pain, or any unexpected problems, contact your Primary Care Provider. Call [facility] ([phone]) or report to the closest Emergency Room. Call 911 if necessary. 11/20/18804 <Electronically signed by Sonia Arredondo DO> Date Sonia Arredondo DO Cosigner Signature (If Indicated): Date CC: Harjinder Braswell MD CLINICAL EVENT Observed: 11/19/2018 Status: UNK Source: [facility]-NEUROSURGERY ATTENDING 2:01 PM HOSPITALS REPOSITORY UPDATED Event: Topic: Neurosurgery attending updated Details: I personally met with the patient and her daughter to discuss in detail the spine surgical plan for the patient. I had a lengthy discussion regarding the clinical and surgical plan for the patient, which includes decompression of spinal cord, safe resection of tumor mass, and post op radiotherapy after wound has healed. Patient and daughter had many questions. I discussed risks including infection, bleeding, weakness, sensory loss, hardware failure, plegia, CSF leak, post op pain, need for further surgery, prolonged hospitalization, risks of anesthesia, blood clot, pneumonia, and , etc. Benefits include decompression, resection, and relief of mass effect, and stabilization. Patient verbalized understanding, and would like to proceed with decompression and thoracolumbar spine fusion with neurologic intraoperative monitoring on 11/23/2018. Electronic Signatures: Huber Tamayo) (Signed 19-Nov-2018 14:29) Authored: Event Last Updated: 19-Nov-2018 14:29 by Huber Tamayo) DAILY PROGRESS Observed: 11/19/2018 Status: COMPLETED Source: [facility] NOTE-PALLIATIVE CARE 1:07 PM HOSPITALS REPOSITORY Consult Type: subsequent visit/care Service: Palliative Care Subjective Data: TRISH HUNT is a 73 year old Female who is Hospital Day # 8. Additional Information: No acute events overnight. Biopsy results returned from lymph node FNA showing lung adenocarcinoma. Today Ms. Hunt feels worse than yesterday. When asked about her pain in terms of quality and severity, she says simply, it hurts. No relief from current pain regimen, and she cannot concentrate on things other than pain. Had several bowel movements yesterday which she describes as an event. Received PO morphine 5mg q4h x5 since yesterday evening and 2 doses of PO morphine 3mg and one of dilaudid 0.2mg IV for total of 35 OME. Objective Data: Objective Information: T PRBPSpO2 [id number]/[id number]% Date/Time11/19 10:: 11: 11:50 Range(36.3C - 37.2C ) (72 - 86 ) (18 - 18 ) (116 - 129 )/ (56 - 76 ) (95% - 98% ) Highest temp of 37.2 C was recorded at 11/19 11:50 Pain reported at 11/19 12:12: 5 Pain reported at 11/19 11:00: 8 Physical Exam: Constitutional: Overweight woman, in some distress, appears uncomfortable Eyes: pupils 2mm bilaterally ENMT: mucus membranes moist Respiratory/Thorax: rhonchorous bilaterally carrie at bases, occasional expiratory wheezes Cardiovascular: regular rate and rhythm without murmurs/rubs/gallops, s1/s2 Gastrointestinal: soft, no masses appreciated. some bowel sounds. tender to moderate palpation below costal margin in RUQ Extremities: warm, well perfused, +1 pitting edema bilaterally Psychological: irritated Skin: anicteric, no bruising noted Medication: Medications: Scheduled Medications 1. Acetaminophen: 975 mg Oral <User Schedule> 2. Albuterol 2.5mg - Ipratropium 0.5 mg/ 3mL Neb Soln: 3 mL Inhalation Every 6 Hours 3. Dexamethasone: 4 mg Oral <User Schedule> 4. Enoxaparin SubCutaneous: 40 mg SubCutaneous Every 12 Hours 5. Fludeoxyglucose F-18 - (Radiology Contrast): 10 milliCurie IntraVenous Push Once 6. guaiFENesin Extended Release: 600 mg Oral Every 12 Hours 7. Pantoprazole: 40 mg Oral Daily 8. Polyethylene Glycol: 17 gram(s) Oral 2 Times a Day 9. Simvastatin: 20 mg Oral At Bedtime 10. Sodium Chloride 0.9% Injectable Flush: 10 mL IntraVenous Flush Every 12 Hours PRN Medications 1. Albuterol 2.5mg - Ipratropium 0.5 mg/ 3mL Neb Soln: 3 mL Inhalation Every 4 Hours 2. Bisacodyl Rectal: 10 mg Rectal Daily 3. Heparin Flush 10 unit/ mL PF Injectable: 5 mL IntraVenous Flush Every 12 Hours 4. Heparin Flush 10 unit/ mL PF Injectable PRN: 5 mL IntraVenous Flush According to Flush Policy 5. Loratadine: 10 mg Oral Daily 6. Naloxone Injectable: 0.2 mg IntraVenous Push Once 7. Ondansetron Injectable: 4 mg IntraVenous Push Every 6 Hours 8. Polyethylene Glycol: 17 gram(s) Oral Daily 9. Sodium Chloride 0.9% Injectable Flush PRN: 10 mL IntraVenous Flush According to Flush Policy 10. Sodium Chloride 0.9% Injectable Flush PRN: 20 mL IntraVenous Flush According to Flush Policy 11. Sore Throat Lozenge: 1 lozenge(s) Oral Every 8 Hours Recent Lab Results: Results: Anatomic pathology report: FINAL CYTOLOGICAL INTERPRETATION A. FINE NEEDLE ASPIRATION 11 RS LYMPH NODE, CYTOLOGY AND CELL BLOCK: -- MALIGNANT CELLS DERIVED FROM ADENOCARCINOMA. B. FINE NEEDLE ASPIRATION 7 LYMPH NODE, CYTOLOGY AND CELL BLOCK: -- MALIGNANT CELLS DERIVED FROM ADENOCARCINOMA, SEE NOTE. Assessment and Plan: Assessment: Ms. Hunt is a 73 year old F with history of HTN, DM2 with morbid obesity, hypothyroidism, HLD, presenting as transfer from [facility] for back pain due to spinal lesions, highly suspicious for lung cancer metastases in setting of recent workup. Palliative care was consulted for pain management. #Pain in R flank, likely related to bony metastases, currently not well controlled and patient with sedation #Bony pain - continue dexamethasone 4mg twice a day for bony pain (8am/4pm dosing to minimize side effect profile) --> continue PPI while on steroids - please start pamidronate 90mg once for bony pain #Further pain coverage. Minimal response with morphine and patient's pain control needs not yet fully established. - please start hydromorphone DETONATOR ASSEMBLER (0.2mg q10min dosing) - continue bowel regimen with miralax daily to avoid constipation #Code status/living will - patient reportedly with living will, check with patient/family for copy for chart - patient expressed desire to be DNR/DNI, update in chart Thank you for allowing us to participate in the care of this patient. We will continue to follow. Please contact us for any questions via [employer] or pager [phone]. Nessa Mercado Internal Medicine PGY-1 Signature/Cosignature/Attestation: Attending AttestationI saw and evaluated the patient. I personally obtained the almonte and critical portions of the history and physical exam or was physically present for almonte and critical portions performed by the resident/fellow. I reviewed the resident/fellows documentation and discussed the patient with the resident/fellow. I agree with the resident/fellows medical decision making as documented in the resident/fellows note with the exception/addition of the following: I personally evaluated the patient (as noted in the above attestation) on 19-Nov-2018 Comments/ Additional Findings Pt seen approx 1h after getting pain medication in response to above described complaints (both 3mg PO morphine PRN and 0.2 mg IV hydromorphone given). She noticed the meds helped a small amount. It is not clear at this time how much it will take to get her pain under control and how much will be safe (previously received Narcan for excess sedation); therefore, we are recommending DETONATOR ASSEMBLER as a tool for rapid dose finding as well as safe dose finding (given built in control that if patient gets sleepy she stops pushing the button). Will follow. Call with questions. [id number] Electronic Signatures: Nessa Mercado (Resident)) (Signed 19-Nov-2018 15:13) Authored: Service, Subjective Data, Objective Data, Assessment and Plan, Signature/Cosignature/Attestation Annette Keller) (Signed 19-Nov-2018 16:04) Authored: Service, Signature/Cosignature/Attestation Co-Signer: Subjective Data, Objective Data, Assessment and Plan, Signature/Cosignature/Attestation Last Updated: 19-Nov-2018 16:04 by Annette Keller) CLINICAL EVENT Observed: 11/19/2018 Status: UNK Source: [facility]ERSITY NOTE-RADIATION ONCOLOGY 12:05 PM HOSPITALS REPOSITORY Event: Topic: Radiation Oncology Details: The patient is planned for surgical intervention on 11/23 per neurosurgery and medicine documentation. Radiation therapy will be performed in the post operative setting approximatley 2-3 weeks afterward to allow for adequate wound healing. This can take place close to the patient's residence. We will assist with radiation oncology follow up following surgical intervention. Please notify radiation oncology if plans for surgery are terminated. Alexandro Pérez PGY-III Radiation Oncology Electronic Signatures: Alexandro Pérez ( (Resident)) (Signed 19-Nov-2018 12:09) Authored: Event Jose Jonas) (Signed 19-Nov-2018 16:57) Authored: Event Co-Signer: Event Last Updated: 19-Nov-2018 16:57 by Jose Jonas) DAILY PROGRESS Observed: 11/19/2018 Status: COMPLETED Source: [place] NOTE-MEDICINE 10:48 AM HOSPITALS REPOSITORY Service: Medicine Subjective Data: TRISH HUNT is a 73 year old Female who is Hospital Day # 8. Objective Data: Objective Information: T PRBPSpO2 [id number]% Date/Time11/19 7: 7: 7: 7: 7:55 Range(36.3C - 37.1C ) (72 - 98 ) (18 - 18 ) (116 - 144 )/ (56 - 78 ) (95% - 98% ) Highest temp of 37.1 C was recorded at 11/18 11:29 Pain reported at 11/19 9:30: 4 Pain reported at 11/19 8:24: 6 Medication: Medications: Continuous Medications No continuous medications are active Scheduled Medications 1. Acetaminophen: 975 mg Oral <User Schedule> 2. Albuterol 2.5mg - Ipratropium 0.5 mg/ 3mL Neb Soln: 3 mL Inhalation Every 6 Hours 3. Dexamethasone: 4 mg Oral <User Schedule> 4. Enoxaparin SubCutaneous: 40 mg SubCutaneous Every 12 Hours 5. Fludeoxyglucose F-18 - (Radiology Contrast): 10 milliCurie IntraVenous Push Once 6. guaiFENesin Extended Release: 600 mg Oral Every 12 Hours 7. Morphine Oral Liquid: 5 mg Oral Every 4 Hours 8. Pantoprazole: 40 mg Oral Daily 9. Polyethylene Glycol: 17 gram(s) Oral 2 Times a Day 10. Simvastatin: 20 mg Oral At Bedtime 11. Sodium Chloride 0.9% Injectable Flush: 10 mL IntraVenous Flush Every 12 Hours PRN Medications 1. Albuterol 2.5mg - Ipratropium 0.5 mg/ 3mL Neb Soln: 3 mL Inhalation Every 4 Hours 2. Bisacodyl Rectal: 10 mg Rectal Daily 3. Heparin Flush 10 unit/ mL PF Injectable: 5 mL IntraVenous Flush Every 12 Hours 4. Heparin Flush 10 unit/ mL PF Injectable PRN: 5 mL IntraVenous Flush According to Flush Policy 5. HYDROmorphone Injectable: 0.2 mg IntraVenous Push Every 4 Hours 6. Loratadine: 10 mg Oral Daily 7. Morphine Oral Liquid: 3 mg Oral Every 4 Hours 8. Ondansetron Injectable: 4 mg IntraVenous Push Every 6 Hours 9. Polyethylene Glycol: 17 gram(s) Oral Daily 10. Sodium Chloride 0.9% Injectable Flush PRN: 10 mL IntraVenous Flush According to Flush Policy 11. Sodium Chloride 0.9% Injectable Flush PRN: 20 mL IntraVenous Flush According to Flush Policy 12. Sore Throat Lozenge: 1 lozenge(s) Oral Every 8 Hours Recent Lab Results: Results: I have reviewed these laboratory results: Complete Blood Count 18-Nov-2018 05:06:00 ResultValue White Blood Cell Count 6.8 Nucleated Erythrocyte Count 0.0 Red Blood Cell Count 4.04 HGB 12.3 HCT 41.0 MCV 101 H MCHC 30.0 L PLT 251 RDW-CV 13.2 Renal Function Panel 18-Nov-2018 05:06:00 ResultValue Glucose, Serum 93 NA 142 K 3.9 CL 106 Bicarbonate, Serum 30 Anion Gap, Serum 10 BUN 18 CREAT 0.81 GFR-Non >60 GFR- >60 Calcium, Serum 8.8 Phosphorus, Serum 3.2 ALB 3.2 L Assessment and Plan: Assessment: Trish Hunt is a 73 year old female former smoker w/ PMHx significant for HTN, Impaired Fasting Glucose, Hyperlipidemia, Peripheral Neuropathy, Hypothyroidism, GERD, Morbid Obesity and Recent Spinal Cord Stimulator Implant who is transferred to [facility] 11/12/18 from [facility] after presenting with intractable progressive back pain with SOB and found on imaging to have a lung mass with adenopathy and suspected spinal metastasis for neurosurgical evaluation and further care. In Shared Visit with Dr. Oquendo Metastatic Lung CA Former smoker. Reported SOB and chest pain with deep breath at [place] [facility] presentation 11/11/18. A CT of the Chest showed Occlusion of the right middle bronchus with pleural effusion with suspected spinal metastasis. Pulmonary medicine and oncology were consulted with a Right Thoracentesis via U/S obtained 11/12/18 for 140 ml of fluid. The pleural fluid is reported to be exudative (cloudy, predominant monocytes (87%), TP: 2.5, LDH 500 (serum LDH 437), with culture and cytology pending. MRI of the brain 11/14/18 without lesions. Pulmonology consulted and a Bronchoscopy w/ EBUS with sampling of right hilar mass and subcarinal lymph node which were both positive for malignant cells, most likely non-small cell lung cancer of origin (based on prelim cytology). PET showed right central middle lobe malignancy with multiple metastasis to the axial skeleton, mediastinal and bilateral hilar lymph nodes. -Lymph Node Biopsy showing Adenocarcinoma of lung origin -Oncology consulted, appreciate input - will need follow up with lung oncology team, Dr Mahoney or Dr Rincon -Rad Onc consulted, appreciate input - likely will hold off on any radiation until post operative period T10 Pathologic Fracture Likely metastasis from lung CA. Presented to [facility] 11/11/18 with intractable progressive back pain radiating around waist in band of 2-3 weeks accompanied by SOB. Due to the pain she had the Spinal Cord Stimulator Implanted in August removed on 10/25/18 without improvement of pain. She has prior disc surgery L4-L5 several years back and has been asymptomatic from it. She denies tingling or numbness, focal weakness of any extremity, bowel incontinence. She does have chronic urinary urge incontinence which has come back after her spinal stimulator was recently removed. A CT Chest, Abdomen and Pelvis at [place] showed a suspected Pathologic fracture of the T10 vertebral body with canal stenosis as well as additional vertebral lesions at T8, T9, and T11 suspicious for additional metastases. An MRI of the T spine was obtained and showed the lesion was not compressing the spine but was however in close proximity to the cord, and therefore she was given Decadron with request for transfer to [facility] for Neurosurgery evaluation. Neurosurgery consulted and did find evidence of cord compression. CT Thoracic and Lumbar Spine without contrast done at Neurosurgery request and some changes of lumbar CT noted as well. At Neurosurgery request, an MRI of the entire spine was done, consistent with T10 fracture and additional metastases. -Rad Onc consulted, appreciate input - likely will hold off on any radiation until post operative period -Pathology showing Adenocarcinoma with lung origin -Neurosurgery planned for OR on 11/23 Back Pain Intractable progressive back pain radiating around waist in band of 2-3 weeks accompanied by SOB. Due to the pain she had the Spinal Cord Stimulator Implanted in August removed on 10/25/18 without improvement of pain. She has prior disc surgery L4-L5 several years back and has been asymptomatic from it. She denies tingling or numbness, focal weakness of any extremity, bowel incontinence. The Oxycodone did not help her pain, but 0.2 mg IV Hydromorphone helps. She started Morphine Sulfate Contin last evening, slightly drowsy today. Previously required Narcan. -Palliative care consulted to aid in pain management -Continue Acetaminophen 975 mg by mouth three times a day -Stop Morphine Sulfate -Stop Toradol -Start Morphine 5mg Q4H -Start Morphine 3mg Q4H PRN -Dilaudid 0.2mg Q4H PRN for breakthrough -Pamidronate 90mg once per palliative care recs -Start Dexamethasone 4mg BID (0800 and 1600), ok per neurosurgery -Neurosurgery has planned for OR on 11/23 -PT Hypoxia/COPD Has been requiring O2 via nasal cannula. Pleural effusions present on imaging. Wheezing on exam today, reports having nebulizer at home but per granddaughter she hardly uses. -O2 at 2-3 liters PRN -Duonebs Q6h and PRN -Add Guaifenesin ER 600mg Q12H Constipation Likely related to narcotics. BM following Fleet enema 11/14/18, but none since. -Continue Miralax twice a day and PRN -Continue Bisacodyl suppository daily PRN Impaired Fasting Glucose Denies diagnosis of Diabetes. States was told had elevated blood glucose 20 years ago with Metformin initiated as preventive. 07/2018 Hgb A1C normal. Blood glucose 93 on fasting labs this am. -hold home Metformin ER -check blood glucose in a.m. with labs Hypothyroid TSH 0.86 -Continue home Levothyroxine 50 mcg daily Codes status Discussed with patient, she reports she did not fully understand what palliative care had stated when speaking of code status, at this time she wishes to have full interventions. Her would be the next decision maker and has a living will. She does not wish to have prolonging life support. -Full code DVT prophylaxis -Enoxaparin 40 mg subcutaneous twice a day -Sequential compression devices. Dispo Lives with . No home needs identified at present, but pain is presenting a challenge for ambulation. Family at bedside and supportive. -PT recommending SNF at this time Signature/Cosignature/Attestation: Provider/Team Contact Info-Pager [phone] Attending Only - Shared Visit with Advanced Practice ProviderThis is a shared visit. I have reviewed the Advanced Practice Providers encounter note, approve the Advanced Practice Providers documentation, and provide the following additional information from my personal encounter. Comments/ Additional Findings Patient reported better pain control with new analgesia regiment. Still cough, not much mucus produced. Has poor appetite. No fever or desaturation reported past 24h. At the time we arrived in her room she was awake and interactive. her daughter was present. Physical examination: Per the WHO definition of age the patient is an elderly female fully oriented in mild detectable physical distress due to pain. Was less dyspnoic but coughing more often. had better attention to the conversation. No signs of trauma in the head. Keeps eyes closed, nonicteric sclera, round pupils symmetrically respond to light. Full range of motion in all directions. Mouth and throat mucosa clean, moist, no ulcers or thrush. Thick supple neck, no JVD, or bruit appreciated. Appeared eupneic with bigger tidal volumes, fewer expiratory wheezing. Regular rhythm, distant S1/S2 no appreciable murmur or gallop. Abdomen large with normal bowel sounds, no tenderness or organomegaly appreciated. External urine sample collector attached, urine is dark clear. Neuro exam showed no focal deficit. Musculoskeletal system without anatomical deformities, good strength in all major muscle groups. Motion in bed triggers back pain, she avoids turning. Coherent, did (not) appear depressed. No lab tests performed today below are the most recent ones. WBC: 7.6 -> 6.8 Hctr: 38.7 -> 41.0 Platelet: 260 -> 251 BUN/creatinine: 22/0.74 -> 18/0.81 Anatomic pathology report: FINAL CYTOLOGICAL INTERPRETATION A. FINE NEEDLE ASPIRATION 11 RS LYMPH NODE, CYTOLOGY AND CELL BLOCK: -- MALIGNANT CELLS DERIVED FROM ADENOCARCINOMA. B. FINE NEEDLE ASPIRATION 7 LYMPH NODE, CYTOLOGY AND CELL BLOCK: -- MALIGNANT CELLS DERIVED FROM ADENOCARCINOMA, SEE NOTE. I reviewed the imaging, I read the report and discussed with the GRIEVANCE MANAGER. PET CT (11/17) IMPRESSION: 1. Correlating with history of endobronchial lesion, features are consistent with right central middle lobe malignancy with multiple metastasis to the axial skeleton, mediastinal and bilateral hilar lymph nodes. 2. Focal avid FDG uptake in the right thyroid lobe. Thyroid ultrasound is advised for further follow-up as incidental FDG avid thyroid nodules can be malignant in up to 30% of cases. 3. Mild hypermetabolic right pleural effusion, with likely benign etiology. I reviewed the medications and discussed with the GRIEVANCE MANAGER. 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 Pain hasn't been managed optimally. Palliative care team evaluated the patient, input appreciated. With new regiment of analgesia pain has been in better range. Continue acetaminophen as ordered. Lung mass with lymphadenopathy in the mediastinum. Final report: adenocarcinoma of lung origin. Oncology has seen the patient before biopsy report. Additional testing with the biopsy sample suggested to evaluate for the most appropriate nonsurgical treatment. Radiation oncology to evaluate the condition. Per the recommendations the patient has to have surgery first then ~ 4 weeks later radiation treatment. Ortho team potentially may do vertebral stabilization next week COPD. Mixture of ipratropium with albuterol scheduled, q6h. Continue guaifenesin. Will follow closely. No indication/need for routine daily labs. Electronic Signatures: Rocky Oquendo) (Signed 19-Nov-2018 12:46) Authored: Signature/Cosignature/Attestation Jordan Saunders (ALIGNMENT SPECIALIST-GRIEVANCE MANAGER) (Signed 19-Nov-2018 11:58) Authored: Service, Subjective Data, Objective Data, Assessment and Plan, Signature/Cosignature/Attestation Last Updated: 19-Nov-2018 12:46 by Rocky Oquendo) CONSULT-RADIATION ONCOLOGY Observed: 11/18/2018 Status: COMPLETED Source: [facility] 9:46 PM HOSPITALS REPOSITORY Service: Service: Radiation Oncology Consult: Consult requested by (Attending Name): Dr. Rocky Oquendo Reason: new metastatic malignancy with osseous disease and pathologic fracture of T10 with impending cord compression History of Present Illness: Admission Reason: intractable back pain, new metastatic malignancy HPI: Trish Hunt is a 73 year old female with a history of HTN, HL, peripheral neuropathy, hypothyroidism, GERD, morbid obesity, and recent spinal cord stimulator implant placed 08/2018 and removed 10/2018 for treatment of overactive bladder, presenting with new metastatic adenocarcinoma with impending cord compression at T10 from osseous metastatic disease. The patient was transferred to [facility] on 11/12/2018 from [facility] after presenting on 11/11/2018 with intractable, progressive back pain x2-[address] C/A/P at [place] showed occlusion of the right middle bronchus with large pleural effusion and suspected pathologic fracture of the T10 vertebral body with canal stenosis and lesions in T8/9/11 and the right 11th rib suspicious for osseous metastatic disease. Thoracentesis on 11/12/2018 showed exudative fluid, cytology pending. MRI brain on 11/14/2018 showed no evidence of intracranial metastatic disease. MRI spine on 11/15/2018 showed an expansile osseous lesion involving T10 with pathologic collapse of the vertebral body and minimal flattening of the dorsal cord at this level concerning for impending cord compression. Bronchoscopy was performed 11/15/2018 which showed malignant cells derived from adenocarcinoma in a retrosternal and level 7 lymph node. PET/CT on 11/17/2017 showed hypermetabolic right central middle lobe malignancy with multiple metastatic lesions in the axial skeleton, mediastinal, and bilateral hilar lymph nodes, and focal uptake in the right thyroid lobe. The patient was seen resting in bed, granddaughter Lakesha at bedside. The patient complains of severe lower back pain, from the low back to the pelvis. This has been progressive for the past month, as well as progressive dyspnea over the same time period. The patient denies any lower extremity weakness, fever, night sweats, unintentional weight loss, changes in sensation. Has a history of overactive bladder; states that placement of stimulator did not help her symptoms, possibly made slightly worse. Denies incontinence. Of note, the patient was able to stand and walk to the bathroom with nursing assistance during visit. PMH - multiple medical comorbidities as above PSH - cholecystectomy, spinal stimulator for overactive bladder as above SH - previous smoker--quit in 2012, denies any known occupational exposures to dust, asbestos, silica. 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 FH - Mother with history of lung cancer, sister with history of lung cancer Meds morphine, pantoprazole, miralax, simvastatin Allergies sulfa drugs (itching), codeine, lisinopril ROS - 12 pt ROS was performed, pertinent positive and negative findings as per HPI above. ECOG-PS - 3 Review Family/Social History and ROS: Social History: Smoking Status: unknown if ever smoked Allergies: sulfa drugs: Itching Intolerances: codeine: Nausea/Vomiting lisinopril: Unknown Objective: Objective Information: T PRBPSpO2 [id number]/7397% Date/Time11/18 19:4611/18 19:4611/18 19:4611/18 19:4611/18 19:46 Range(36.2C - 37.1C ) (79 - 98 ) (16 - 18 ) (101 - 144 )/ (65 - 78 ) (97% - 98% ) Highest temp of 37.1 C was recorded at 11/18 11:29 Physical Exam: Constitutional: Awake, alert and oriented 3,appears mildly uncomfortable, calm, obese Eyes: PERRL, EOMI, clear sclera Head/Neck: neck supple, no cervical lymphadenopathy Respiratory/Thorax: on 3 L O2 by NC, scattered rhonchi throughout lungs, poor air movement Cardiovascular: Regular, rate and rhythm, no murmurs, normal S1 and S2 appreciated, no abnormal heart sounds appreciated Gastrointestinal: soft, nondistended, nontender Musculoskeletal: ROM intact, no joint swelling, normal strength Extremities: normal extremities, no cyanosis or edema, contusions or wounds, no clubbing Neurological: Strength 5+ in all extremities, cranial nerves II through XII grossly intact, light touch sensation grossly intact, no dysdiadochokinesia, no dysmetria, speech normal no slurring Skin: Warm and dry, no lesions, no rashes Medications: Medications: Continuous Medications No continuous medications are active Scheduled Medications 1. Acetaminophen: 975 mg Oral <User Schedule> 2. Albuterol 2.5mg - Ipratropium 0.5 mg/ 3mL Neb Soln: 3 mL Inhalation Every 6 Hours 3. Enoxaparin SubCutaneous: 40 mg SubCutaneous Every 12 Hours 4. Fludeoxyglucose F-18 - (Radiology Contrast): 10 milliCurie IntraVenous Push Once 5. guaiFENesin Extended Release: 600 mg Oral Every 12 Hours 6. Morphine Oral Liquid: 5 mg Oral Every 4 Hours 7. Pantoprazole: 40 mg Oral Daily 8. Polyethylene Glycol: 17 gram(s) Oral 2 Times a Day 9. Simvastatin: 20 mg Oral At Bedtime 10. Sodium Chloride 0.9% Injectable Flush: 10 mL IntraVenous Flush Every 12 Hours PRN Medications 1. Albuterol 2.5mg - Ipratropium 0.5 mg/ 3mL Neb Soln: 3 mL Inhalation Every 4 Hours 2. Bisacodyl Rectal: 10 mg Rectal Daily 3. Heparin Flush 10 unit/ mL PF Injectable: 5 mL IntraVenous Flush Every 12 Hours 4. Heparin Flush 10 unit/ mL PF Injectable PRN: 5 mL IntraVenous Flush According to Flush Policy 5. HYDROmorphone Injectable: 0.2 mg IntraVenous Push Every 4 Hours 6. Loratadine: 10 mg Oral Daily 7. Morphine Oral Liquid: 3 mg Oral Every 4 Hours 8. Ondansetron Injectable: 4 mg IntraVenous Push Every 6 Hours 9. Polyethylene Glycol: 17 gram(s) Oral Daily 10. Sodium Chloride 0.9% Injectable Flush PRN: 10 mL IntraVenous Flush According to Flush Policy 11. Sodium Chloride 0.9% Injectable Flush PRN: 20 mL IntraVenous Flush According to Flush Policy 12. Sore Throat Lozenge: 1 lozenge(s) Oral Every 8 Hours Radiology Results: Results: Impression: 1. Correlating with history of endobronchial lesion, features are consistent with right central middle lobe malignancy with multiple metastasis to the axial skeleton, mediastinal and bilateral hilar lymph nodes. 2. Focal avid FDG uptake in the right thyroid lobe. Thyroid ultrasound is advised for further follow-up as incidental FDG avid thyroid nodules can be malignant in up to 30% of cases. 3. Mild hypermetabolic right pleural effusion, with likely benign etiology. PET/CT Lung Ca Staging [Nov 17 2018 2:37PM] Impression: There is an expansile osseous lesion most concerning for osseous metastatic disease involving the T10 vertebral body. There is pathologic collapse of the T10 vertebral body with approximately 15-20% loss of height of the T10 vertebral body. There is convexity of the posterior margin of the collapsed T10 vertebral body as well as expansion of the pedicles and posterior elements of the T10 vertebral body which along with a component of epidural thickening and enhancement contributes to partial circumferential effacement of the CSF signal of the subarachnoid space with suspected minimal flattening of the left dorsal lateral margin of the thoracic cord at the T10 level. There is additional abnormal bone marrow signal concerning for osseous metastatic disease involving the right aspect of the T11 vertebral body best appreciated right T11 pedicle, facet, and lamina. There is suspected osseous neoplastic involvement along the medial right 11th rib. There is abnormal bone marrow signal concerning for osseous neoplasm involving the posterior elements of the T9 vertebral body. The remainder of the visualized osseous structures demonstrate diffuse nonspecific inhomogeneous ill-defined diminished bone marrow signal on the T1 weighted images which while nonspecific can be seen with anemia or osteopenia although additional more diffuse infiltrative osseous neoplasm cannot be excluded. There is multilevel spondylosis as described above. There are bilateral pleural effusions right greater than left along with atelectasis and/or infiltrate within the partially imaged posterior lungs bilaterally. There is additional nodular fullness concerning for underlying mass within the partially imaged right lung. Correlation with dedicated chest imaging is recommended. The study was interpreted at [facility], [place]. MRI T Spine w/wo Contrast [Nov 15 2018 3:32PM] Impression: There is an expansile osseous lesion most concerning for osseous metastatic disease involving the T10 vertebral body. There is pathologic collapse of the T10 vertebral body with approximately 15-20% loss of height of the T10 vertebral body. There is convexity of the posterior margin of the collapsed T10 vertebral body as well as expansion of the pedicles and posterior elements of the T10 vertebral body which along with a component of epidural thickening and enhancement contributes to partial circumferential effacement of the CSF signal of the subarachnoid space with suspected minimal flattening of the left dorsal lateral margin of the thoracic cord at the T10 level. There is additional abnormal bone marrow signal concerning for osseous metastatic disease involving the right aspect of the T11 vertebral body best appreciated right T11 pedicle, facet, and lamina. There is suspected osseous neoplastic involvement along the medial right 11th rib. There is abnormal bone marrow signal concerning for osseous neoplasm involving the posterior elements of the T9 vertebral body. The remainder of the visualized osseous structures demonstrate diffuse nonspecific inhomogeneous ill-defined diminished bone marrow signal on the T1 weighted images which while nonspecific can be seen with anemia or osteopenia although additional more diffuse infiltrative osseous neoplasm cannot be excluded. There is multilevel spondylosis as described above. There are bilateral pleural effusions right greater than left along with atelectasis and/or infiltrate within the partially imaged posterior lungs bilaterally. There is additional nodular fullness concerning for underlying mass within the partially imaged right lung. Correlation with dedicated chest imaging is recommended. The study was interpreted at [facility] [place]. MRI L Spine w/wo Contrast [Nov 15 2018 3:32PM] Assessment: Trish Hunt is a 73 year old female with a history of HTN, HL, peripheral neuropathy, hypothyroidism, GERD, morbid obesity, and recent spinal cord stimulator implant placed 08/2018 and removed 10/2018 for treatment of overactive bladder, presenting with new metastatic adenocarcinoma with impending cord compression at T10 from osseous metastatic disease. The patient still maintains her lower extremity strength and has had no incontinence of stool or urine. Her MRI findings at the level of T10 are concerning for impending cord compression, and she has considerable back pain at this level and in her lumbar spine. Neurosurgery has seen the patient and is planning for surgical decompression of T10 on 11/23/2017, pending surgical risk stratification. If the patient successfully undergoes surgery, post-operative radiotherapy to the resection site may be performed for durable local control. The patient lives near [place] and would prefer to have radiation therapy closer to home. If the patient undergoes surgery, she may be referred to [facility] for radiotherapy ~3-4 weeks after her operation to allow for healing. At this point there is no emergent need for radiotherapy, especially in the setting of anticipated surgical decompression. Please feel free to contact us with any changes in the patient's condition or care plan. Thank you for allowing us to participate in the care of this patient. If there are additional questions or concerns, please do not hesitate to contact us. Seen with Dr. Jonas. Attending addendum to follow. Adriana Kumar MD PGY-2, Radiation Oncology [facility] Signature/Cosignature/Attestation: Comments/ Additional Findings I saw and examed the patient. I have reviewed her images. I recommend her to have surgery TAYLOR if she is surgery candidate followed by postoperative radiation 2 to 3 weeks after surgery depending on wound healing. If she is not a surgical candidate, I will start palliative radiation urgently. Waiting for input from neurosurgery. Electronic Signatures: Adriana Kumar (Resident)) (Signed 18-Nov-2018 22:22) Authored: Service, History of Present Illness, Allergies, Objective, Assessment/Recommendations, Signature/Cosignature/Attestation Jose Jonas) (Signed 19-Nov-2018 16:52) Authored: Review Family/Social History and ROS, Signature/Cosignature/Attestation Co-Signer: Service, History of Present Illness, Allergies, Objective, Assessment/Recommendations, Signature/Cosignature/Attestation Last Updated: 19-Nov-2018 16:52 by Jose Jonas) DAILY PROGRESS Observed: 11/18/2018 Status: COMPLETED Source: UNIVERSITY NOTE-PULMONOLOGY 7:31 PM HOSPITALS REPOSITORY Service: Pulmonology Subjective Data: TRISH HUNT is a 73 year old Female who is Hospital Day # 7. Additional Information: Ms. Hunt complained of pain today. She appeared confused and had rattling secretion noise during the interview. Objective Data: Objective Information: T PRBPSpO2 [id number]% Date/Time11/18 11: 11: 11: 11: 11:29 Range(36.2C - 37.1C ) (79 - 98 ) (16 - 19 ) (101 - 162 )/ (65 - 78 ) (97% - 100% ) Highest temp of 37.1 C was recorded at 11/18 11:29 Pain reported at 11/18 15:47: 5 Pain reported at 11/18 14:56: 8 Physical Exam: Constitutional: alert, in NAD Eyes: no scleral icterus ENMT: clear OP Head/Neck: No JVD Respiratory/Thorax: diminished air entry BL, no crackles or wheezes Cardiovascular: S1 and S2 Extremities: no pedal edema Neurological: no focal deficits, moves all four limbs independently Lymphatic: No significant lymphadenopathy Psychological: Appropriate mood and behavior Skin: dry no rash Medication: Medications: Continuous Medications No continuous medications are active Scheduled Medications 1. Acetaminophen: 975 mg Oral <User Schedule> 2. Albuterol 2.5mg - Ipratropium 0.5 mg/ 3mL Neb Soln: 3 mL Inhalation Every 6 Hours 3. Enoxaparin SubCutaneous: 40 mg SubCutaneous Every 12 Hours 4. Fludeoxyglucose F-18 - (Radiology Contrast): 10 milliCurie IntraVenous Push Once 5. guaiFENesin Extended Release: 600 mg Oral Every 12 Hours 6. Morphine Oral Liquid: 5 mg Oral Every 4 Hours 7. Pantoprazole: 40 mg Oral Daily 8. Polyethylene Glycol: 17 gram(s) Oral 2 Times a Day 9. Simvastatin: 20 mg Oral At Bedtime 10. Sodium Chloride 0.9% Injectable Flush: 10 mL IntraVenous Flush Every 12 Hours PRN Medications 1. Albuterol 2.5mg - Ipratropium 0.5 mg/ 3mL Neb Soln: 3 mL Inhalation Every 4 Hours 2. Bisacodyl Rectal: 10 mg Rectal Daily 3. Heparin Flush 10 unit/ mL PF Injectable: 5 mL IntraVenous Flush Every 12 Hours 4. Heparin Flush 10 unit/ mL PF Injectable PRN: 5 mL IntraVenous Flush According to Flush Policy 5. HYDROmorphone Injectable: 0.2 mg IntraVenous Push Every 4 Hours 6. Loratadine: 10 mg Oral Daily 7. Morphine Oral Liquid: 3 mg Oral Every 4 Hours 8. Ondansetron Injectable: 4 mg IntraVenous Push Every 6 Hours 9. Polyethylene Glycol: 17 gram(s) Oral Daily 10. Sodium Chloride 0.9% Injectable Flush PRN: 10 mL IntraVenous Flush According to Flush Policy 11. Sodium Chloride 0.9% Injectable Flush PRN: 20 mL IntraVenous Flush According to Flush Policy 12. Sore Throat Lozenge: 1 lozenge(s) Oral Every 8 Hours Recent Lab Results: Results: I have reviewed these laboratory results: Complete Blood Count 18-Nov-2018 05:06:00 ResultValue White Blood Cell Count 6.8 Nucleated Erythrocyte Count 0.0 Red Blood Cell Count 4.04 HGB 12.3 HCT 41.0 MCV 101 H MCHC 30.0 L PLT 251 RDW-CV 13.2 Renal Function Panel 18-Nov-2018 05:06:00 ResultValue Glucose, Serum 93 NA 142 K 3.9 CL 106 Bicarbonate, Serum 30 Anion Gap, Serum 10 BUN 18 CREAT 0.81 GFR-Non >60 GFR- >60 Calcium, Serum 8.8 Phosphorus, Serum 3.2 ALB 3.2 L Radiology Results: Results: Impression: 1. Correlating with history of endobronchial lesion, features are consistent with right central middle lobe malignancy with multiple metastasis to the axial skeleton, mediastinal and bilateral hilar lymph nodes. 2. Focal avid FDG uptake in the right thyroid lobe. Thyroid ultrasound is advised for further follow-up as incidental FDG avid thyroid nodules can be malignant in up to 30% of cases. 3. Mild hypermetabolic right pleural effusion, with likely benign etiology. PET/CT Lung Ca Staging [Nov 17 2018 2:37PM] Assessment and Plan: Assessment: 73 year old female with new onset back pain presenting to OSH, found to have spinal lesions, impending cord compression at T10 (by imaging) and R hilar mas with mediastinal adenopathy. Patient underwent bronchoscopy with EBUS and sampling of right hilar mass and subcarinal lymph node which were both positive for malignant cells, most likely non-small cell lung cancer of origin (based on prelim cytology). Problems: 1. Metastatic lung adenocarcinoma 2. Spinal metastasis 3. Encephalopathy Recommend: - Final cytology result has returned - Encourage Aerobika use for secretion mobilization - Spine management per neurosurgery team - Our service will sign off. Please contact us at #[phone] for any questions or change in clinical status Signature/Cosignature/Attestation: Attending AttestationI reviewed the resident/fellows documentation and discussed the patient with the resident/fellow. I agree with the resident/fellows medical decision making as documented in the residents note. Electronic Signatures: Israel Mensah (Fellow)) (Signed 18-Nov-2018 19:58) Authored: Service, Subjective Data, Objective Data, Assessment and Plan, Signature/Cosignature/Attestation Jane Lewis) (Signed 04-Dec-2018 18:31) Authored: Signature/Cosignature/Attestation Co-Signer: Service, Subjective Data, Objective Data, Assessment and Plan, Signature/Cosignature/Attestation Last Updated: 04-Dec-2018 18:31 by Jane Lewis) CLINICAL EVENT Observed: 11/18/2018 Status: UNK Source: UNIVERSITY NOTE-PATHOLOGY 5:20 PM HOSPITALS REPOSITORY Event: Topic: pathology Details: FNA of LN c/w Adenocarcinoma of lung origin Will check with pathology if able to do EGFR/ALK/PD-L1 testing to help determine therapy Systemic chemotherapy vs immunotherapy vs targeted therapy if molecular alteration seen Will need f/u with Lung oncology team - Dr Mahoney or Dr Isra Rincon Discussed surgical approach for spine and then xrt vs xrt alone and r/b/a Recommend discussion per neurosurgery and rad onc Electronic Signatures: Matt Doan) (Signed 18-Nov-2018 17:25) Authored: Event Last Updated: 18-Nov-2018 17:25 by Matt Doan) NUTRITION THERAPY-ASSESSMENT Observed: 11/18/2018 Status: UNK Source: [facility] 2:47 PM HOSPITALS REPOSITORY Assessment Subjective/Objective: Note Type: Assessment Note Authored by: Registered Dietitian Range Aide Pager Number: [phone] Nutrition Note: The patient is 73 year old female admitted from OSH for further work up of new dx of lung mass with adenopathy and spinal mets. Nutrition consulted for assessment/recommendation. Medical Surgical History: hypertension, diabetes 2, morbid obesity, hypothyroidism, hyperlipidemia, former smoker, cholecystectomy Objective Information: Intake Output IV Fluids 900 mL Urine 1150 mL Height/Weight: Height in cm: 162.5 centimeter(s) Weight (kg): 118.7 BMI (kg/m2): 44.951 square meter DBW (kg): 54.5 %DBW: 218 Weight history/ % weight change: Reports UBW of ~114 kg. Significant Weight Change: no Recent Lab Results: Results: I have reviewed these laboratory results: Renal Function Panel 18-Nov-2018 05:06:00 ResultValue Glucose, Serum 93 NA 142 K 3.9 CL 106 Bicarbonate, Serum 30 Anion Gap, Serum 10 BUN 18 CREAT 0.81 GFR-Non >60 GFR- >60 Calcium, Serum 8.8 Phosphorus, Serum 3.2 ALB 3.2 L Glucose_POCT 17-Nov-2018 09:28:00 ResultValue Glucose-POCT 96 Current Active Medications/PN: Polyethylene Glycol, Powder for Reconstitution (MIRALAX) DOSE = 17 gram(s) Oral 2 Times a Day, 15-Nov-2018 Pantoprazole, Enteric Coated Tablet (PROTONIX) DOSE = 40 mg Oral Daily, 16-Nov-2018 Sodium Chloride 0.9% Infusion, IV Bag Volume = 1,000 mL Run at: 100 mL/hr IntraVenous <Continuous>, 17-Nov-2018 Nutrition Orders: Diet, 2 grams Sodium, 15-Nov-2018 Food/Nutrition Related History: Change in Oral Intake/Appetite: decrease GI Symptoms: none Time Frame for GI Symptoms Greater Than 2 Weeks: not applicable Oral Problems: denies Mobility: difficulty with normal activity Food Allergies Comment: NKFA Nutritional Supplements: denies Food/Nutrition Related History: Pt spoke with eyes primarily shut during RDN visit--granddaughter present and helpful with provided background information. Pt is upset regarding fruit flies being and states she does not want to eat any of the food here. Granddaughter attempted to explain to pt that fruit flies were likely attracted to her grapes she had left out and not a result of meal service; however, pt continuing to decline eating food and/or trialing oral supplements. Per granddaughter will try to order/bring in pt's favorite foods from home and granddaughter requested RDN provide oral nutritional supplements for pt to trial. Nutrition Focused Physical Findings: Muscle Wasting: Temporal: no Shoulder: no Clavicle: no Loss of Subcutaneous Fat: Eyes: no Perioral: no Triceps: no Chest: no Other Physical Findings: Hair: negative Eyes: negative Mouth: negative Nails: negative Edema: +2, generalized Change in Metabolic Demand: yes Subjective Global Assessment Rating: malnutrition not present at this time Estimated Needs: kcals/day: 1155-6971 gms protein/day: ~85 mL fluid/day: 1 ml/kcal Nutrition Diagnosis: Diagnosis1 new. Dx: Inadequate oral intake. related to decreased appetite as evidenced by pt/granddaughter report of poor oral intake since hospital admission. Nutrition Interventions: Individualized Nutrition Prescription Provided for: diet Diet Education: not applicable Ordered Supplements: Boost Plus 2x/day, Boost Breeze 2x/day, encouraged to order ECC milkshakes as desired Other Interventions: Pt declined having food preparation worker visit when offered by RDN, pt meal services notified. Nutrition Goals: Goals: Nutrition Therapy: oral intake greater than 50%, consume prescribed supplement, lab values within normal limits NUTRITION RECOMMENDATIONS: Recommendations: 1. Consider liberalizing diet to regular to promote intakes 2. If oral intake remains poor, please consider dobhoff placement and reconsult RDN for recommendations. Nutrition Therapy Recommendations: Nutrition Therapy Recommendations: Refer to RDN note Dietitian Monitoring and Evaluation Plan: Monitoring and Evaluation Plan: po intake and tolerance, weight trend, labs Time Spent (minutes): 60 Nutrition Support: no Electronic Signatures: Michelle Robbins (ERASTO, NATHAN) (Signed 18-Nov-2018 15:05) Authored: Assessment Subjective/Objective, Nutrition Focused Physical Findings, Estimated Needs, Nutrition Diagnosis, Nutrition Interventions, Nutrition Goals, Nutrition Recommendations, Dietitian Monitoring and Evaluation Plan, Time Spent/Nutrition Support Last Updated: 18-Nov-2018 15:05 by Michelle Robbins (ERASTO, NATHAN) CONSULT-PALLIATIVE CARE Observed: 11/18/2018 Status: COMPLETED Source: [facility] 1:08 PM HOSPITALS REPOSITORY Service: Service: Palliative Care Consult: Consult requested by (Attending Name): Dr. Oquendo Reason: pain management History of Present Illness: Admission Reason: back pain, transferred from [place] for concern for spinal metastases HPI: Ms. Hunt is a 73 year old F presenting as transfer from [facility] after initially presenting there with subacute low back pain with imaging at OSH revealing R hilar mass with adenopathy and multiple spinal mets including T10 bipedicular lesion; workup thus far including thoracentesis with cytology, bronchoscopy with biopsy, and PET scan suggestive of cancer, likely non-small cell lung in origin. Palliative care was consulted for pain management. Patient interviewed in her room with granddaughter Lakesha; briefly met pastor Mauro as well. When asked how she felt today, patient replied shitty. She states that she is in pain on her R side of her upper abdomen/back, grabby in nature, which feels like a gallbladder attack. The pain goes around from her side to the front of her abdomen, worse with movement and touch. It does not necessarily feel stabby or shooting in character. She reports she had good relief from Dilaudid but does not believe she is adequately controlled now; when asked if she felt she could focus on anything or function at the moment, she said no. Last BM was Thursday; no nausea, vomiting, diarrhea. Some itching at site of ECG leads. Pain medication use since admission, in oral morphine equivalents: 11/13: 35.5 OME (1.4mg dilaudid IV + 5mg oxycodone) 11/14: 77.5 OME (22.5mg morphine + 2mg dilaudid IV + 10mg oxycodone) 11/15: 66.5 OME (22.5mg morphine + 2.2mg dilaudid IV) - required naloxone in PACU after MRI 11/16: 48.5 OME (44.5mg morphine + 0.2mg dilaudid IV) 11/17: 42 OME (30mg morphine + 0.6mg dilaudid IV) with acetaminophen 975mg three times a day since 11/13 + ketorolac 15mg IV q4h PRN since 11/14 PMH: DM2 HTN HLD GERD Hypothyroidism PSH: Cholecystectomy Implantation and removal of spinal stimulator for overactive bladder. Removed on 10/29/18 Lower back surgery Review Family/Social History and ROS: Social History: Social History: Home: Lives with of ~60 years in [place]/near [place], [place]. He has difficulty ambulating (he should use a walker). She assists him more than he assists her. Family: Had three children, two still alive. One son of pneumonia. Many grandchildren including Lakesha, college student, who was present in the room and has been present throughout hospital stay. Family all in [facility]. 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 Strength and meaning in life: God, Lakesha (granddaughter) give her life meaning; also enjoys crocheting Spirituality: God gives her strength; mechanical specialist [place] visiting her frequently. Decision maker: is her preferred decision maker; they have discussed her wishes regarding medical care. Living will: paperwork has been filled out; none on file in EMR. Code status: DNAR (confirmed with patient in room that she would not like resuscitation including CPR), and would not like mechanical ventilation, dialysis Constitutional: POSITIVE: Malaise Respiratory: POSITIVE: Productive Cough Gastrointestinal: NEGATIVE: Nausea, Vomiting, Diarrhea, Constipation Musculoskeletal: POSITIVE: Pain All Other Systems: All other systems reviewed and are negative Allergies: sulfa drugs: Itching Intolerances: codeine: Nausea/Vomiting lisinopril: Unknown Objective: Objective Information: T PRBPSpO2 [id number]% Date/Time11/18 11: 11: 11: 11: 11:29 Range(36.1C - 37.1C ) (79 - 98 ) (16 - 19 ) (101 - 162 )/ (65 - 82 ) (97% - 100% ) Highest temp of 37.1 C was recorded at 11/18 11:29 Pain reported at 11/17 13:45: 0 Pain reported at 11/18 4:44: 8 Physical Exam: Constitutional: Overweight pleasant woman, in some distress, making slow movements Eyes: pupils 2mm bilaterally ENMT: mucus membranes moist Respiratory/Thorax: rhonchorous bilaterally carrie at bases, occasional expiratory wheezes Cardiovascular: regular rate and rhythm without murmurs/rubs/gallops, s1/s2 Gastrointestinal: soft, no masses appreciated. some bowel sounds. tender to moderate palpation below costal margin in RUQ Extremities: warm, well perfused, +1 pitting edema bilaterally Neurological: follows commands, able to transition from lying down to sitting upright with use of upper extremities Psychological: appropriate Skin: anicteric, no bruising noted Medications: Medications: Continuous Medications 1. Sodium Chloride 0.9% Infusion: 1000 mL IntraVenous <Continuous> Scheduled Medications 1. Acetaminophen: 975 mg Oral <User Schedule> 2. Albuterol 2.5mg - Ipratropium 0.5 mg/ 3mL Neb Soln: 3 mL Inhalation Every 6 Hours 3. Enoxaparin SubCutaneous: 40 mg SubCutaneous Every 12 Hours 4. Fludeoxyglucose F-18 - (Radiology Contrast): 10 milliCurie IntraVenous Push Once 5. guaiFENesin Extended Release: 600 mg Oral Every 12 Hours 6. Morphine Extended Release (MS Contin-Oramorph SR): 15 mg Oral Every 12 Hours 7. Pantoprazole: 40 mg Oral Daily 8. Polyethylene Glycol: 17 gram(s) Oral 2 Times a Day 9. Simvastatin: 20 mg Oral At Bedtime 10. Sodium Chloride 0.9% Injectable Flush: 10 mL IntraVenous Flush Every 12 Hours PRN Medications 1. Albuterol 2.5mg - Ipratropium 0.5 mg/ 3mL Neb Soln: 3 mL Inhalation Every 4 Hours 2. Bisacodyl Rectal: 10 mg Rectal Daily 3. Heparin Flush 10 unit/ mL PF Injectable: 5 mL IntraVenous Flush Every 12 Hours 4. Heparin Flush 10 unit/ mL PF Injectable PRN: 5 mL IntraVenous Flush According to Flush Policy 5. HYDROmorphone Injectable: 0.2 mg IntraVenous Push Every 4 Hours 6. Ketorolac Injectable: 15 mg IntraVenous Push Every 4 Hours 7. Loratadine: 10 mg Oral Daily 8. Ondansetron Injectable: 4 mg IntraVenous Push Every 6 Hours 9. Polyethylene Glycol: 17 gram(s) Oral Daily 10. Sodium Chloride 0.9% Injectable Flush PRN: 10 mL IntraVenous Flush According to Flush Policy 11. Sodium Chloride 0.9% Injectable Flush PRN: 20 mL IntraVenous Flush According to Flush Policy 12. Sore Throat Lozenge: 1 lozenge(s) Oral Every 8 Hours Recent Lab Results: Results: I have reviewed these laboratory results: Complete Blood Count 18-Nov-2018 05:06:00 ResultValue White Blood Cell Count 6.8 Nucleated Erythrocyte Count 0.0 Red Blood Cell Count 4.04 HGB 12.3 HCT 41.0 MCV 101 H MCHC 30.0 L PLT 251 RDW-CV 13.2 Renal Function Panel 18-Nov-2018 05:06:00 ResultValue Glucose, Serum 93 NA 142 K 3.9 CL 106 Bicarbonate, Serum 30 Anion Gap, Serum 10 BUN 18 CREAT 0.81 GFR-Non >60 GFR- >60 Calcium, Serum 8.8 Phosphorus, Serum 3.2 ALB 3.2 L Comprehensive Metabolic Panel 16-Nov-2018 11:32:00 ResultValue Glucose, Serum 140 H NA 140 K 3.9 CL 104 Bicarbonate, Serum 27 Anion Gap, Serum 13 BUN 22 CREAT 0.87 GFR-Non >60 GFR- >60 Calcium, Serum 8.9 ALB 3.5 ALKP 37 T Pro 6.1 L T Bili 0.6 Alanine Aminotransferase, Serum 14 Aspartate Transaminase, Serum 17 Radiology Results: Results: Impression: 1. Correlating with history of endobronchial lesion, features are consistent with right central middle lobe malignancy with multiple metastasis to the axial skeleton, mediastinal and bilateral hilar lymph nodes. 2. Focal avid FDG uptake in the right thyroid lobe. Thyroid ultrasound is advised for further follow-up as incidental FDG avid thyroid nodules can be malignant in up to 30% of cases. 3. Mild hypermetabolic right pleural effusion, with likely benign etiology. PET/CT Lung Ca Staging [Nov 17 2018 2:37PM] Impression: There is an expansile osseous lesion most concerning for osseous metastatic disease involving the T10 vertebral body. There is pathologic collapse of the T10 vertebral body with approximately 15-20% loss of height of the T10 vertebral body. There is convexity of the posterior margin of the collapsed T10 vertebral body as well as expansion of the pedicles and posterior elements of the T10 vertebral body which along with a component of epidural thickening and enhancement contributes to partial circumferential effacement of the CSF signal of the subarachnoid space with suspected minimal flattening of the left dorsal lateral margin of the thoracic cord at the T10 level. There is additional abnormal bone marrow signal concerning for osseous metastatic disease involving the right aspect of the T11 vertebral body best appreciated right T11 pedicle, facet, and lamina. There is suspected osseous neoplastic involvement along the medial right 11th rib. There is abnormal bone marrow signal concerning for osseous neoplasm involving the posterior elements of the T9 vertebral body. The remainder of the visualized osseous structures demonstrate diffuse nonspecific inhomogeneous ill-defined diminished bone marrow signal on the T1 weighted images which while nonspecific can be seen with anemia or osteopenia although additional more diffuse infiltrative osseous neoplasm cannot be excluded. There is multilevel spondylosis as described above. There are bilateral pleural effusions right greater than left along with atelectasis and/or infiltrate within the partially imaged posterior lungs bilaterally. There is additional nodular fullness concerning for underlying mass within the partially imaged right lung. Correlation with dedicated chest imaging is recommended. The study was interpreted at [facility] [place]. MRI L Spine w/wo Contrast [Nov 15 2018 3:32PM] Impression: 1. 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 2. Tumor is also noted in the T9 and T11 vertebrae. 3. The left L5 pedicle has vague lucency with questionable cortical breakthrough along its superior margin suspicious for tumor; the spinal canal and lateral recesses are stenosed at this level secondary to degenerative changes and questionable soft tissue along the left ventral thecal sac which may represent tumor as well. MR is recommended for further evaluation. 4. Enlarged mediastinal and probably enlarged right hilar lymph nodes are present; the right hilum is difficult to evaluate due to consolidation and atelectasis in the right middle lobe. Enhanced CT is recommended for further evaluation. 5. Layering right pleural effusion. 6. There is questionable bowel wall thickening along the left side of the rectum. Direct visualization may be helpful for further evaluation. 7. The lateral recess and spinal canal stenoses on a degenerative basis are also noted elsewhere in the lumbar region. Findings called to the floor at 3:[address] T Spine without Contrast [Nov 14 2018 3:19PM] Impression: No mass, hemorrhage or abnormal enhancement suspicious for metastatic disease is noted. The focal white matter hyperintensities are nonspecific and may be secondary to chronic microvascular ischemic, degenerative or other etiologies. MRI Brain w/wo Contrast [Nov 14 2018 2:03PM] Assessment: Ms. Hunt is a 73 year old F with history of HTN, DM2 with morbid obesity, hypothyroidism, HLD, presenting as transfer from [facility] for back pain due to spinal lesions, highly suspicious for lung cancer metastases in setting of recent workup. Palliative care was consulted for pain management. #Pain in R flank, likely related to bony metastases, currently not well controlled and patient with sedation #Bony pain - start dexamethasone 4mg twice a day for bony pain (8am/4pm dosing to minimize side effect profile) --> please ensure safety with neurosurgery given plans for OR soon - pamidronate 90mg once for bony pain #Further pain coverage - stop morphine sulfate extended release (MSContin) - start morphine 5mg PO q4h scheduled for pain, with parameters for RN to hold for sedation/resp status - start morphine 3mg PO q4h PRN for breakthrough pain - continue hydromorphone 0.2mg IV q4h PRN for breakthrough pain not responsive to oral morphine - continue bowel regimen with miralax daily to avoid constipation #Code status/living will - patient reportedly with living will, check with patient/family for copy for chart - patient expressed desire to be DNR/DNI, update in chart Thank you for allowing us to participate in the care of this patient. We will continue to follow. Please contact us for any questions via [employer] or pager [phone]. Nessa Mercado Internal Medicine PGY-1 Signature/Cosignature/Attestation: Attending AttestationI saw and evaluated the patient. I personally obtained the almonte and critical portions of the history and physical exam or was physically present for almonte and critical portions performed by the resident/fellow. I reviewed the resident/fellows documentation and discussed the patient with the resident/fellow. I agree with the resident/fellows medical decision making as documented in the residents note. I personally evaluated the patient (as noted in the above attestation) on 18-Nov-2018 Electronic Signatures: Nessa Mercado (Resident)) (Signed 18-Nov-2018 15:32) Authored: Service, History of Present Illness, Review Family/Social History and ROS, Allergies, Objective, Assessment/Recommendations, Signature/Cosignature/Attestation Annette Keller) (Signed 18-Nov-2018 21:14) Authored: Assessment/Recommendations, Signature/Cosignature/Attestation Co-Signer: Assessment/Recommendations, Signature/Cosignature/Attestation Last Updated: 18-Nov-2018 21:14 by Annette Keller) DAILY PROGRESS Observed: 11/18/2018 Status: COMPLETED Source: UNIVERSITY NOTE-MEDICINE 10:03 AM HOSPITALS REPOSITORY Service: Medicine Subjective Data: TRISH HUNT is a 73 year old Female who is Hospital Day # 7. Additional Information: Continues to complain of pain. Nursing concern for lethargy last evening. Did not eat or drink much yesterday. Objective Data: Objective Information: T PRBPSpO2 [id number]% Date/Time11/18 7: 7: 7: 7: 7:28 Range(36.1C - 36.8C ) (79 - 106 ) (16 - 19 ) (101 - 172 )/ (65 - 82 ) (97% - 100% ) Physical Exam: Constitutional: laying in bed, NAD, opens eyes spontaneously, Alert and awake Eyes: clear sclera ENMT: MMM Respiratory/Thorax: Respirations nonlabored, scattered rhonchi that clear with cough, on 3LNC Cardiovascular: RRR, S1S2 Gastrointestinal: BS+, soft, nontender, nondistended, obese Extremities: no edema, palpable pulses Neurological: A&Ox3 Psychological: calm Skin: intact, no lesions/rashes Medication: Medications: Continuous Medications 1. Sodium Chloride 0.9% Infusion: 1000 mL IntraVenous <Continuous> Scheduled Medications 1. Acetaminophen: 975 mg Oral <User Schedule> 2. Albuterol 2.5mg - Ipratropium 0.5 mg/ 3mL Neb Soln: 3 mL Inhalation Every 6 Hours 3. Enoxaparin SubCutaneous: 40 mg SubCutaneous Every 12 Hours 4. Fludeoxyglucose F-18 - (Radiology Contrast): 10 milliCurie IntraVenous Push Once 5. guaiFENesin Extended Release: 600 mg Oral Every 12 Hours 6. Morphine Extended Release (MS Contin-Oramorph SR): 15 mg Oral Every 12 Hours 7. Pantoprazole: 40 mg Oral Daily 8. Polyethylene Glycol: 17 gram(s) Oral 2 Times a Day 9. Simvastatin: 20 mg Oral At Bedtime 10. Sodium Chloride 0.9% Injectable Flush: 10 mL IntraVenous Flush Every 12 Hours PRN Medications 1. Albuterol 2.5mg - Ipratropium 0.5 mg/ 3mL Neb Soln: 3 mL Inhalation Every 4 Hours 2. Bisacodyl Rectal: 10 mg Rectal Daily 3. Heparin Flush 10 unit/ mL PF Injectable: 5 mL IntraVenous Flush Every 12 Hours 4. Heparin Flush 10 unit/ mL PF Injectable PRN: 5 mL IntraVenous Flush According to Flush Policy 5. HYDROmorphone Injectable: 0.2 mg IntraVenous Push Every 4 Hours 6. Ketorolac Injectable: 15 mg IntraVenous Push Every 4 Hours 7. Loratadine: 10 mg Oral Daily 8. Ondansetron Injectable: 4 mg IntraVenous Push Every 6 Hours 9. Polyethylene Glycol: 17 gram(s) Oral Daily 10. Sodium Chloride 0.9% Injectable Flush PRN: 10 mL IntraVenous Flush According to Flush Policy 11. Sodium Chloride 0.9% Injectable Flush PRN: 20 mL IntraVenous Flush According to Flush Policy 12. Sore Throat Lozenge: 1 lozenge(s) Oral Every 8 Hours Recent Lab Results: Results: I have reviewed these laboratory results: Complete Blood Count 18-Nov-2018 05:06:00 ResultValue White Blood Cell Count 6.8 Nucleated Erythrocyte Count 0.0 Red Blood Cell Count 4.04 HGB 12.3 HCT 41.0 MCV 101 H MCHC 30.0 L PLT 251 RDW-CV 13.2 Renal Function Panel 18-Nov-2018 05:06:00 ResultValue Glucose, Serum 93 NA 142 K 3.9 CL 106 Bicarbonate, Serum 30 Anion Gap, Serum 10 BUN 18 CREAT 0.81 GFR-Non >60 GFR- >60 Calcium, Serum 8.8 Phosphorus, Serum 3.2 ALB 3.2 L Glucose_POCT 17-Nov-2018 09:28:00 ResultValue Glucose-POCT 96 Radiology Results: Results: Impression: 1. Correlating with history of endobronchial lesion, features are consistent with right central middle lobe malignancy with multiple metastasis to the axial skeleton, mediastinal and bilateral hilar lymph nodes. 2. Focal avid FDG uptake in the right thyroid lobe. Thyroid ultrasound is advised for further follow-up as incidental FDG avid thyroid nodules can be malignant in up to 30% of cases. 3. Mild hypermetabolic right pleural effusion, with likely benign etiology. PET/CT Lung Ca Staging [Nov 17 2018 2:37PM] Assessment and Plan: Assessment: Trish Hunt is a 73 year old female former smoker w/ PMHx significant for HTN, Impaired Fasting Glucose, Hyperlipidemia, Peripheral Neuropathy, Hypothyroidism, GERD, Morbid Obesity and Recent Spinal Cord Stimulator Implant who is transferred to [facility] 11/12/18 from [facility] after presenting with intractable progressive back pain with SOB and found on imaging to have a lung mass with adenopathy and suspected spinal metastasis for neurosurgical evaluation and further care. In Shared Visit with Dr. Oquendo Metastatic Lung CA Former smoker. Reported SOB and chest pain with deep breath at [place] [facility] presentation 11/11/18. A CT of the Chest showed Occlusion of the right middle bronchus with pleural effusion with suspected spinal metastasis. Pulmonary medicine and oncology were consulted with a Right Thoracentesis via U/S obtained 11/12/18 for 140 ml of fluid. The pleural fluid is reported to be exudative (cloudy, predominant monocytes (87%), TP: 2.5, LDH 500 (serum LDH 437), with culture and cytology pending. MRI of the brain 11/14/18 without lesions. Pulmonology consulted and a Bronchoscopy w/ EBUS yesterday with sampling of right hilar mass and subcarinal lymph node which were both positive for malignant cells, most likely non-small cell lung cancer of origin (based on prelim cytology). PET showed right central middle lobe malignancy with multiple metastasis to the axial skeleton, mediastinal and bilateral hilar lymph nodes. -Lymph Node Biopsy showing Adenocarcinoma of lung origin -Oncology consulted, appreciate input - will need follow up with lung oncology team, Dr Mahoney or Dr Rincon -Rad Onc consulted, appreciate input - likely will hold off on any radiation until post operative period T10 Pathologic Fracture Likely metastasis from lung CA. Presented [facility] 11/11/18 with intractable progressive back pain radiating around waist in band of 2-3 weeks accompanied by SOB. Due to the pain she had the Spinal Cord Stimulator Implanted in August removed on 10/25/18 without improvement of pain. She has prior disc surgery L4-L5 several years back and has been asymptomatic from it. She denies tingling or numbness, focal weakness of any extremity, bowel incontinence. She does have chronic urinary urge incontinence which has come back after her spinal stimulator was recently removed. A CT Chest, Abdomen and Pelvis at [place] showed a suspected Pathologic fracture of the T10 vertebral body with canal stenosis as well as additional vertebral lesions at T8, T9, and T11 suspicious for additional metastases. An MRI of the T spine was obtained and showed the lesion was not compressing the spine but was however in close proximity to the cord, and therefore she was given Decadron with request for transfer to [facility] for Neurosurgery evaluation. Neurosurgery consulted and did find evidence of cord compression. CT Thoracic and Lumbar Spine without contrast done at Neurosurgery request and some changes of lumbar CT noted as well. At Neurosurgery request, an MRI of the entire spine was done, consistent with T10 fracture and additional metastases. -Rad Onc consulted, appreciate input - likely will hold off on any radiation until post operative period -Pathology showing Adenocarcinoma with lung origin -Neurosurgery planned for OR on 11/23 Back Pain Intractable progressive back pain radiating around waist in band of 2-3 weeks accompanied by SOB. Due to the pain she had the Spinal Cord Stimulator Implanted in August removed on 10/25/18 without improvement of pain. She has prior disc surgery L4-L5 several years back and has been asymptomatic from it. She denies tingling or numbness, focal weakness of any extremity, bowel incontinence. The Oxycodone did not help her pain, but 0.2 mg IV Hydromorphone helps. She started Morphine Sulfate Contin last evening, slightly drowsy today. Previously required Narcan. -Palliative care consulted to aid in pain management -Continue Acetaminophen 975 mg by mouth three times a day -Stop Morphine Sulfate -Stop Toradol -Start Morphine 5mg Q4H -Start Morphine 3mg Q4H PRN -Dilaudid 0.2mg Q4H PRN for breakthrough -Pamidronate 90mg once per palliative care recs -Start Dexamethasone 4mg BID (0800 and 1600), ok per neurosurgery -Neurosurgery has planned for OR on 11/23 -PT Hypoxia/COPD Has been requiring O2 via nasal cannula. Pleural effusions present on imaging. Wheezing on exam today, reports having nebulizer at home but per granddaughter she hardly uses. -O2 at 2-3 liters PRN -Duonebs Q6h and PRN -Add Guaifenesin ER 600mg Q12H Constipation Likely related to narcotics. BM following Fleet enema 11/14/18, but none since. -Continue Miralax twice a day and PRN -Continue Bisacodyl suppository daily PRN Impaired Fasting Glucose Denies diagnosis of Diabetes. States was told had elevated blood glucose 20 years ago with Metformin initiated as preventive. 07/2018 Hgb A1C normal. Blood glucose 93 on fasting labs this am. -hold home Metformin ER -check blood glucose in a.m. with labs Hypothyroid TSH 0.86 -Continue home Levothyroxine 50 mcg daily Codes status Discussed with patient this afternoon, she reports she did not fully understand what palliative care had stated when speaking of code status, at this time she wishes to have full interventions. Her would be the next decision maker and has a living will. She does not wish to have prolonging life support. -Full code DVT prophylaxis -Enoxaparin 40 mg subcutaneous twice a day -Sequential compression devices. Dispo Lives with . No home needs identified at present, but pain is presenting a challenge for ambulation. Family at bedside and supportive. -PT recommending SNF at this time Signature/Cosignature/Attestation: Attending Only - Shared Visit with Advanced Practice ProviderThis is a shared visit. I have reviewed the Advanced Practice Providers encounter note, approve the Advanced Practice Providers documentation, and provide the following additional information from my personal encounter. Comments/ Additional Findings In late pm the nurse was worried that the patient was lethargic. The subsequent dose of hydromorphone was lowered. Patient's daughter reported that the patient slept until about 4 am. No fever or desaturation reported past 24h. (On oxygen supplementation per [place].) At the time we arrived in her room she was (pretending to be!) sleeping. Slowly engaged in conversation. When asked about pain she said: It hurts! Physical examination: Per the WHO definition of age the patient is an elderly female fully oriented in moderate detectable physical distress due to pain. Was less dyspnoic but coughing more often. She was not very interactive. BMI of 45 puts her in Class III (morbid) obesity. No signs of trauma in the head. Keeps eyes closed, nonicteric sclera, round pupils symmetrically respond to light. Full range of motion in all directions. Mouth and throat mucosa clean, moist, no ulcers or thrush. Thick supple neck, no JVD, or bruit appreciated. Less tachypneic with bigger tidal volumes, fewer expiratory wheezing. Regular rhythm, distant S1/S2 no appreciable murmur or gallop. Abdomen large with normal bowel sounds, no tenderness or organomegaly appreciated. Neuro exam showed no focal deficit. Musculoskeletal system without anatomical deformities, good strength in all major muscle groups. Motion in bed triggers back pain, she avoids turning. Coherent, did (not) appear depressed. The rest of today's physical findings are similar to those noted/reported yesterday. I reviewed the most recent labs (CBC, chemistry, cultures) and discussed with the resident. WBC: 7.6 -> 6.8 Hctr: 38.7 -> 41.0 Platelet: 260 -> 251 BUN/creatinine: 22/0.74 -> 18/0.81 Anatomic pathology report: FINAL CYTOLOGICAL INTERPRETATION A. FINE NEEDLE ASPIRATION 11 RS LYMPH NODE, CYTOLOGY AND CELL BLOCK: -- MALIGNANT CELLS DERIVED FROM ADENOCARCINOMA. B. FINE NEEDLE ASPIRATION 7 LYMPH NODE, CYTOLOGY AND CELL BLOCK: -- MALIGNANT CELLS DERIVED FROM ADENOCARCINOMA, SEE NOTE. I reviewed the imaging, I read the report and discussed with the GRIEVANCE MANAGER. PET CT (11/17) IMPRESSION: 1. Correlating with history of endobronchial lesion, features are consistent with right central middle lobe malignancy with multiple metastasis to the axial skeleton, mediastinal and bilateral hilar lymph nodes. 2. Focal avid FDG uptake in the right thyroid lobe. Thyroid ultrasound is advised for further follow-up as incidental FDG avid thyroid nodules can be malignant in up to 30% of cases. 3. Mild hypermetabolic right pleural effusion, with likely benign etiology. I reviewed the medications and discussed with the GRIEVANCE MANAGER. 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 Pain hasn't been managed optimally. Palliative care team evaluated the patient, input appreciated. Continue acetaminophen as ordered. Immediate release Morphine Sulfate recommended for better evaluation of daily requirement. Lung mass with lymphadenopathy in the mediastinum. Final report: adenocarcinoma of lung origin. Oncology has seen the patient before biopsy report. Radiation oncology to evaluate the condition. Ortho team potentially may do vertebral stabilization next week COPD. Mixture of ipratropium with albuterol scheduled, q6h. Add guaifenesin. Will follow closely. No indication/need for routine daily labs. Electronic Signatures: Rocky Oquendo) (Signed 18-Nov-2018 15:43) Authored: Signature/Cosignature/Attestation Dominic Preciado (ALIGNMENT SPECIALIST-GRIEVANCE MANAGER) (Signed 18-Nov-2018 17:59) Authored: Service, Subjective Data, Objective Data, Assessment and Plan Last Updated: 18-Nov-2018 17:59 by Dominic Preciado (ALIGNMENT SPECIALIST-[facility]) RENAL FUNCTION PANEL Collected: 11/18/2018 Status: F Source: [place] 5:06 AM HOSPITALS REPOSITORY TYPE CODE TESTS RESULT OUT OF REFERENCE UNITS RANGE LAB GLU(LOINC) 74 - 99 mg/dL GLUCOSE 93 LAB SOD(LOINC) 136 - 145 mmol/L SODIUM 142 LAB K(LOINC) 3.5 - 5.3 mmol/L POTASSIUM 3.9 LAB CHLOR(LOIN 98 - 107 mmol/L C) CHLORIDE 106 LAB BIC(LOINC) 21 - 32 mmol/L BICARBONATE 30 LAB ANGAP(LOIN 10 - 20 mmol/L C) ANION GAP 10 LAB UREA(LOINC 6 - 23 mg/dL ) UREA NITROGEN 18 LAB CREA(LOINC 0.50 - 1.05 mg/dL ) CREATININE 0.81 LAB GFRFN(LOIN >60 mL/min/1.7 C) 3m2 GFR-NON AM. >60 LAB GFRAA(LOIN >60 mL/min/1.7 C) 3m2 GFR- AM. >60 Result Comment: CALCULATIONS OF ESTIMATED GFR ARE PERFORMED USING THE MDRD STUDY EQUATION FOR THE IDMS-TRACEABLE CREATININE METHODS. CLIN CHEM 2007;53:766-72 LAB CA(LOINC) 8.6 - 10.6 mg/dL CALCIUM 8.8 LAB PHOS(LOINC) 2.5 - 4.9 mg/dL PHOSPHORUS 3.2 Result Comment: The performance characteristics of phosphorus testing in heparinized plasma have been validated by the individual laboratory site where testing is performed. Testing on heparinized plasma is not approved by the FDA; however, such approval is not necessary. LAB ALB(LOINC) 3.4 - 5.0 g/dL Low ALBUMIN 3.2 Performed By: #### RENAL #### [facility] [id number] [place] [address] CBC Collected: 11/18/2018 Status: F Source: [place] 5:06 AM HOSPITALS REPOSITORY TYPE CODE TESTS RESULT OUT OF REFERENCE UNITS RANGE LAB WBCR(LOINC 4.4 - 11.3 x10E9/L ) WBC 6.8 LAB NRBC(LOINC 0.0-0.0 /100 WBC ) NUCLEATED RBC 0.0 LAB RBCCT(LOIN 4.00 - 5.20 x10E12/L C) RBC 4.04 LAB HGB(LOINC) 12.0 - 16.0 g/dL HGB 12.3 LAB HCT(LOINC) 36.0 - 46.0 % HCT 41.0 LAB MCV(LOINC) 80 - 100 fL MCV High 101 LAB MCHC2(LOIN 32.0 - 36.0 g/dL C) Low MCHC 30.0 LAB PLTCT(LOIN 150 - 450 x10E9/L C) PLT 251 LAB RDWCV(LOIN 11.5 - 14.5 % C) RDW-CV 13.2 Performed By: #### CBC #### [facility] [id number] [place] [address] DAILY PROGRESS Observed: 11/18/2018 Status: COMPLETED Source: UNIVERSITY NOTE-NEUROSURGERY 12:01 AM HOSPITALS REPOSITORY Service: Neurosurgery Subjective Data: TRISH HUNT is a 73 year old Female who is Hospital Day # 7. Objective Data: Objective Information: T PRBPSpO2 [id number]/7897% Date/Time11/18 11: 11: 11: 11: 11:29 Range(36.2C - 37.1C ) (79 - 98 ) (16 - 18 ) (101 - 144 )/ (65 - 78 ) (97% - 98% ) Highest temp of 37.1 C was recorded at 11/18 11:29 Pain reported at 11/18 15:47: 5 Pain reported at 11/18 14:56: 8 Physical Exam: Neurological: AAOx3 (name, place, and year) PERRL, EOMI, VFF, CNII-XII intact Cooperative, and follows commands 5/5 in all muscle groups without a drift Sensation grossly intact to light touch No Adams, Babinski, or clonus Assessment and Plan: Assessment: Assessment: 73F with a history of HTN, HLD, DM, and a newly diagnosed hilar mass with b/l pleural effusions s/p pleuocentesis. I have personally reviewed the images, which include a CT, which shows a T10 bipedicular lesion c/f spinal mets, patient with nonfocal neurologic exam except for mechanical back pain. Pain well-controlled this AM. No acute events overnight. 11/15 s/p bronch biopsy (prelim NSCLC) MRI T10/11 lesion Plan -OR plan for 11/23 -fu bronch biopsy -pleural fluid cytology -surgical risk stratification Signature/Cosignature/Attestation: Attending AttestationI reviewed the resident/fellows documentation and discussed the patient with the resident/fellow. I agree with the resident/fellows medical decision making as documented in the residents note. Electronic Signatures: Huber Tamayo) (Signed 19-Nov-2018 14:01) Authored: Signature/Cosignature/Attestation Co-Signer: Service, Subjective Data, Objective Data, Assessment and Plan, Signature/Cosignature/Attestation Og Wylie (Resident)) (Signed 18-Nov-2018 19:41) Authored: Service, Subjective Data, Objective Data, Assessment and Plan, Signature/Cosignature/Attestation Last Updated: 19-Nov-2018 14:01 by Huber Tamayo) DAILY PROGRESS Observed: 11/17/2018 Status: COMPLETED Source: UNIVERSITY NOTE-MEDICINE 12:53 PM HOSPITALS REPOSITORY Service: Medicine Subjective Data: TRISH HUNT is a 73 year old Female who is Hospital Day # 6. Additional Information: Complaining of back and leg pain Objective Data: Objective Information: T PRBPSpO2 [id number]/[id number]% Date/Time11/17 12: 12: 12: 12: 12:28 Range(36.2C - 36.7C ) (80 - 106 ) (18 - 20 ) (116 - 172 )/ (53 - 80 ) (96% - 98% ) As of 16-Nov-2018 23:24:00, patient is on 2 L/min of oxygen via nasal cannula. Pain reported at 11/17 10:12: 0 Pain reported at 11/17 12:15: 10 Physical Exam: Constitutional: laying in bed, appears to be in mild distress due to pain, alert and awake but closes eyes on occasion throughout exam Eyes: clear sclera ENMT: MMM Respiratory/Thorax: respirations mildly labored with expiratory wheezing and scattered rhonchi, no use of accessory muscles, on 3LNC Cardiovascular: RRR, S1S2 Gastrointestinal: BS+, soft, nontender, nondistended, obese Extremities: trace edema to BLE Neurological: A&Ox3 Psychological: calm Skin: intact, no lesions/rashes Medication: Medications: Continuous Medications No continuous medications are active Scheduled Medications 1. Acetaminophen: 975 mg Oral <User Schedule> 2. Albuterol 2.5 mg/ 3 mL Nebulizer Soln: 3 mL Inhalation Every 6 Hours 3. Enoxaparin SubCutaneous: 40 mg SubCutaneous Every 12 Hours 4. Fludeoxyglucose F-18 - (Radiology Contrast): 10 milliCurie IntraVenous Push Once 5. Morphine Extended Release (MS Contin-Oramorph SR): 15 mg Oral Every 12 Hours 6. Pantoprazole: 40 mg Oral Daily 7. Polyethylene Glycol: 17 gram(s) Oral 2 Times a Day 8. Simvastatin: 20 mg Oral At Bedtime 9. Sodium Chloride 0.9% Injectable Flush: 10 mL IntraVenous Flush Every 12 Hours PRN Medications 1. Albuterol 2.5 mg/ 3 mL Nebulizer Soln: 3 mL Inhalation Every 2 Hours 2. Bisacodyl Rectal: 10 mg Rectal Daily 3. Heparin Flush 10 unit/ mL PF Injectable: 5 mL IntraVenous Flush Every 12 Hours 4. Heparin Flush 10 unit/ mL PF Injectable PRN: 5 mL IntraVenous Flush According to Flush Policy 5. HYDROmorphone Injectable: 0.6 mg IntraVenous Push Every 4 Hours 6. Ketorolac Injectable: 15 mg IntraVenous Push Every 4 Hours 7. Lidocaine 1% Injectable (PICC KIT): 1 mL IntraDermal Once 8. Loratadine: 10 mg Oral Daily 9. Ondansetron Injectable: 4 mg IntraVenous Push Every 6 Hours 10. Polyethylene Glycol: 17 gram(s) Oral Daily 11. Sodium Chloride 0.9% Injectable Flush PRN: 10 mL IntraVenous Flush According to Flush Policy 12. Sodium Chloride 0.9% Injectable Flush PRN: 20 mL IntraVenous Flush According to Flush Policy 13. Sore Throat Lozenge: 1 lozenge(s) Oral Every 8 Hours Recent Lab Results: Results: I have reviewed these laboratory results: Complete Blood Count 17-Nov-2018 06:00:00 ResultValue White Blood Cell Count 7.6 Nucleated Erythrocyte Count 0.0 Red Blood Cell Count 3.93 L HGB 12.0 HCT 38.7 MCV 98 MCHC 31.0 L PLT 260 RDW-CV 12.9 Renal Function Panel 17-Nov-2018 06:00:00 ResultValue Glucose, Serum 99 NA 141 K 3.8 CL 105 Bicarbonate, Serum 30 Anion Gap, Serum 10 BUN 22 CREAT 0.94 GFR-Non 58 A GFR- 70 Calcium, Serum 9.0 Phosphorus, Serum 3.9 ALB 3.3 L Assessment and Plan: Assessment: Trish Hunt is a 73 year old female former smoker w/ PMHx significant for HTN, Impaired Fasting Glucose, Hyperlipidemia, Peripheral Neuropathy, Hypothyroidism, GERD, Morbid Obesity and Recent Spinal Cord Stimulator Implant who is transferred to [facility] 11/12/18 from [facility] after presenting with intractable progressive back pain with SOB and found on imaging to have a lung mass with adenopathy and suspected spinal metastasis for neurosurgical evaluation and further care. In Shared Visit with Dr. Oquendo Metastatic Lung CA Former smoker. Reported SOB and chest pain with deep breath at [facility] presentation 11/11/18. A CT of the Chest showed Occlusion of the right middle bronchus with pleural effusion with suspected spinal metastasis. Pulmonary medicine and oncology were consulted with a Right Thoracentesis via U/S obtained 11/12/18 for 140 ml of fluid. The pleural fluid is reported to be exudative (cloudy, predominant monocytes (87%), TP: 2.5, LDH 500 (serum LDH 437), with culture and cytology pending. MRI of the brain 11/14/18 without lesions. Pulmonology consulted and a Bronchoscopy w/ EBUS yesterday with sampling of right hilar mass and subcarinal lymph node which were both positive for malignant cells, most likely non-small cell lung cancer of origin (based on prelim cytology). PET today showed right central middle lobe malignancy with multiple metastasis to the axial skeleton, mediastinal and bilateral hilar lymph nodes. -Follow [facility] Pleural C&S and Cytology -Follow bronchoscopy / EBUS cytology on lymph node sampling -Oncology consulted, appreciate input - keep in hospital until pathology finalized per their request - request that we ensure that path is sent for Next generation sequencing and PDL1 - will follow up -Rad Onc consulted, appreciate input - likely will hold off on any radiation until post operative period T10 Pathologic Fracture Likely metastasis from lung CA. Presented to [facility] 11/11/18 with intractable progressive back pain radiating around waist in band of 2-3 weeks accompanied by SOB. Due to the pain she had the Spinal Cord Stimulator Implanted in August removed on 10/25/18 without improvement of pain. She has prior disc surgery L4-L5 several years back and has been asymptomatic from it. She denies tingling or numbness, focal weakness of any extremity, bowel incontinence. She does have chronic urinary urge incontinence which has come back after her spinal stimulator was recently removed. A CT Chest, Abdomen and Pelvis at [facility] showed a suspected Pathologic fracture of the T10 vertebral body with canal stenosis as well as additional vertebral lesions at T8, T9, and T11 suspicious for additional metastases. An MRI of the T spine was obtained and showed the lesion was not compressing the spine but was however in close proximity to the cord, and therefore she was given Decadron with request for transfer to [facility] for Neurosurgery evaluation. Neurosurgery consulted and did find evidence of cord compression. CT Thoracic and Lumbar Spine without contrast done at Neurosurgery request and some changes of lumbar CT noted as well. At Neurosurgery request, an MRI of the entire spine was done, consistent with T10 fracture and additional metastases. -Awaiting pathology -Neurosurgery planned for OR on 11/23 Back Pain Intractable progressive back pain radiating around waist in band of 2-3 weeks accompanied by SOB. Due to the pain she had the Spinal Cord Stimulator Implanted in August removed on 10/25/18 without improvement of pain. She has prior disc surgery L4-L5 several years back and has been asymptomatic from it. She denies tingling or numbness, focal weakness of any extremity, bowel incontinence. The Oxycodone did not help her pain, but 0.2 mg IV Hydromorphone helps. She started Morphine Sulfate Contin last evening, slightly drowsy today. Previously required Narcan. -Continue Acetaminophen 975 mg by mouth three times a day -Continue Morphine Sulfate Contin 15 mg every 12 hours tonight -Stop PO PRN Morphine -Toradol 15 mg IV every 4 hours PRN pain -Hydromorphone 0.6 mg IV every 4 hours PRN -Palliative care may be beneficial to help in pain control, question if steroids would play a role -PT eval Hypoxia Has been requiring O2 via nasal cannula. Pleural effusions present on imaging. Wheezing on examtoday, reports having nebulizer at home but per granddaughter she hardly uses. -O2 at 2-3 liters PRN -Duonebs Q6h and PRN Constipation Likely related to narcotics. BM following Fleet enema 11/14/18, but none since. -Continue Miralax twice a day and PRN -Continue Bisacodyl suppository daily PRN SHLOMO, resolved Creatinine 1.2 post contrast with baseline 1.0 at [place]. Cr 0.9. -Monitor RFP Impaired Fasting Glucose Denies diagnosis of Diabetes. States was told had elevated blood glucose 20 years ago with Metformin initiated as preventive. 07/2018 Hgb A1C normal. Blood glucose 99 on fasting labs this am. -hold home Metformin ER -check blood glucose in a.m. with labs Hypothyroid TSH 0.86 -Continue home Levothyroxine 50 mcg daily Codes status Would not want prolonging life support. -Full code DVT prophylaxis -Enoxaparin 40 mg subcutaneous twice a day -Sequential compression devices. Dispo Lives with . No home needs identified at present, but pain is presenting a challenge for ambulation. Family at bedside and supportive. -PT eval pending Signature/Cosignature/Attestation: Attending Only - Shared Visit with Advanced Practice ProviderThis is a shared visit. I have reviewed the Advanced Practice Providers encounter note, approve the Advanced Practice Providers documentation, and provide the following additional information from my personal encounter. Comments/ Additional Findings I resumed the care from Dr. Yusuf. Ms. Hunt was admitted with chronic mid back pain that was diagnosed as vertebral osteolytic process. Imaging showed lung mass as well. She underwent bronchoscopy after which she continued to feel SOB. At the time we evaluated her she was in much discomfort and could not answer questions pertaining the medical history before the pain started. The daughter reported that at home she had nebulizer but hasn't been using it! In regular rounds she was in the Nuclear medicine, we saw her after she returned. Complained of back and leg pain. Physical examination: Per the WHO definition of age the patient is an elderly female fully oriented in moderate detectable physical distress due to pain and SOB. She was not very interactive. BMI of 45 puts her in Class III (morbid) obesity. No signs of trauma in the head. Nonicteric sclera, round pupils symmetrically respond to light. Full range of motion in all directions. Mouth and throat mucosa clean, moist, no ulcers or thrush. Thick supple neck, no JVD, or bruit appreciated. Tachypneic with small tidal volumes, diffuse expiratory wheezing. Regular rhythm, distant S1/S2 no appreciable murmur or gallop. Abdomen large with normal bowel sounds, no tenderness or organomegaly appreciated. Neuro exam showed no focal deficit. Musculoskeletal system without anatomical deformities, good strength in all major muscle groups. Motion in bed triggers back pain, she avoids turning. Extremities with no anatomical deformities, full range of motion in all big joints, no pitting edema in legs. No lymphadenopathy noted in the standard sites of examination. Obesity precludes accurate examination of lymphadenopathy. Skin has normal color and turgor. Coherent, did (not) appear depressed. I reviewed the most recent labs (CBC, chemistry, cultures) and discussed with the resident. WBC: 7.6 Hctr: 38.7 Platelet: 260 BUN/creatinine: 22/0.74 I reviewed the imaging, I read the report and discussed with the GRIEVANCE MANAGER. PET CT (11/17) IMPRESSION: 1. Correlating with history of endobronchial lesion, features are consistent with right central middle lobe malignancy with multiple metastasis to the axial skeleton, mediastinal and bilateral hilar lymph nodes. 2. Focal avid FDG uptake in the right thyroid lobe. Thyroid ultrasound is advised for further follow-up as incidental FDG avid thyroid nodules can be malignant in up to 30% of cases. 3. Mild hypermetabolic right pleural effusion, with likely benign etiology. I reviewed the medications and discussed with the GRIEVANCE MANAGER. Medical decision making: an elderly female with subacute back pain from metastatic bone disease. She was placed on SR Morphine Sulfate 15mg BID, may need to increase. Continue acetaminophen as ordered. Hydromorphone 0.6 mg q4h as needed iv. Will consider increasing the Morphine Sulfate XR to 30mg BID. Lung mass with lymphadenopathy in the mediastinum. Frozen sections from bronchoscopy indicate on SCLC, final report pending. Oncology has seen the patient, plan for treatment with depend on biopsy report. Will ask radiation oncology for possible radiation fo the vertebral metastases. Ortho team potentially may do vertebral stabilization next week COPD. Mixture of ipratropium with albuterol scheduled, q6h. Electronic Signatures: Rocky Oquendo) (Signed 17-Nov-2018 17:25) Authored: Signature/Cosignature/Attestation Dominic Preciado (ALIGNMENT SPECIALIST-[facility]) (Signed 17-Nov-2018 18:22) Authored: Service, Subjective Data, Objective Data, Assessment and Plan Last Updated: 17-Nov-2018 18:22 by Dominic Preciado (ALIGNMENT SPECIALIST-[facility]) PET/CT LUNG CA Observed: 11/17/2018 Status: F Source: UNIVERSITY STAGING 11:13 AM HOSPITALS REPOSITORY Patient Name: TRISH HUNT STUDY: PET/CT LUNG CA STAGING; 11/17/2018 11:13 am INDICATION: Signs/Symptoms: Right bronchial obstruction with hilar lesion and presumed spinal mets. T10 vertebral body lesion with extension to the posterior elements. Right central middle lobe mass with lymphadenopathy. COMPARISON: Spine MRI on 11/15/[address] on 11/14/2018. ACCESSION NUMBER(S): [id number] ORDERING CLINICIAN: NESSA CARLOS TECHNIQUE: DIVISION OF NUCLEAR MEDICINE POSITRON EMISSION TOMOGRAPHY (PET-CT) The patient received an intravenous dose of 12.5 mCi of Fluorine-18 fluorodeoxyglucose (FDG). Positron emission tomographic (PET) images from mid-thigh to skull base were then acquired after a one hour delay. Also acquired was a contemporaneous low dose non-contrast CT scan performed for attenuation correction of PET images and anatomic localization. The PET and CT images were digitally fused for display. All images were acquired on a combined PET-CT scanner unit. Some areas of FDG accumulation may be described in standardized uptake value (SUV) units. CODING: Initial Treatment Strategy (PI) CALIBRATION: Dose Buoalmjae-uq-Qeto Interval (mins): 67 min Mediastinal bloodpool SUV (normal 1.5-2.5): 2.0 Blood glucose: 96 mg/dL FINDINGS: NECK: Focal avid FDG uptake is noted in the right the thyroid lobe. No other focal hypermetabolic soft tissue lesion is seen in the neck.Bilateral symmetrical anterior cervical muscular FDG uptake is noted. No hypermetabolic cervical lymphadenopathy is present. CHEST: Avid FDG uptake is noted in the corresponding central right middle lobe mass with maximal SUV of 10.3 with adjacent atelectatic changes. Right pleural effusion is noted with mild to moderate hypermetabolism, with likely benign. No focal hypermetabolic lesion is seen in the left lung parenchyma. Small left pleural effusion is noted with no evidence of hypermetabolism. Hypermetabolic right paratracheal, precarinal, subcarinal, bilateral hilar lymph nodes are noted with maximum SUV of 4.5. ABDOMEN AND PELVIS: No hypermetabolic soft tissue lesion is present in the abdomen and pelvis. Bilateral hypermetabolic retrocrural lymph nodes are noted. Otherwise no evidence of hypermetabolic lymphadenopathy. Physiologic radiotracer uptake is present in the liver and spleen with excretion into the bowel loops and the urinary tract. MUSCULOSKELETAL: Avid FDG uptake is noted in the T10 vertebral body with extension to the bilateral pedicles, bilateral transverse processes and spinous process with maximum SUV of 7.2 corresponding to the extensive lytic changes. There is extension of the lesion to the bilateral pedicles, bilateral transverse processes, and spinous process. Focal areas of increased FDG uptake is noted at the base of the left L5 transverse process in correlation with the lytic lesion. Additionally, focal FDG uptake is noted in the spinous process of the right scapula in correlation with a lytic lesion. Small focus of increased FDG uptake is noted in the right sacral ala of the sacroiliac joint with no corresponding lytic lesion. IMPRESSION: 1. Correlating with history of endobronchial lesion, features are consistent with right central middle lobe malignancy with multiple metastasis to the axial skeleton, mediastinal and bilateral hilar lymph nodes. 2. Focal avid FDG uptake in the right thyroid lobe. Thyroid ultrasound is advised for further follow-up as incidental FDG avid thyroid nodules can be malignant in up to 30% of cases. 3. Mild hypermetabolic right pleural effusion, with likely benign etiology. I personally reviewed the image(s) / study and agree with the findings and interpretation as stated. This study was interpreted at [facility] [place]. Electronically signed by: MARLON MIRANDA MD GLUCOSE-POCT Collected: 11/17/2018 Status: F Source: [facility] 9:28 AM HOSPITALS REPOSITORY TYPE CODE TESTS RESULT OUT OF RANGE REFERENCE UNITS LAB GLUP(LOINC) 74 - 99 mg/dL 96 GLUCOSE-POCT Performed By: #### GLUPO #### [facility] [id number] [place] [id number] CBC Collected: 11/17/2018 Status: F Source: [place] 6:00 AM HOSPITALS REPOSITORY TYPE CODE TESTS RESULT OUT OF REFERENCE UNITS RANGE LAB WBCR(LOINC 4.4 - 11.3 x10E9/L ) WBC 7.6 LAB NRBC(LOINC 0.0-0.0 /100 WBC ) NUCLEATED RBC 0.0 LAB RBCCT(LOIN 4.00 - 5.20 x10E12/L C) Low RBC 3.93 LAB HGB(LOINC) 12.0 - 16.0 g/dL HGB 12.0 LAB HCT(LOINC) 36.0 - 46.0 % HCT 38.7 LAB MCV(LOINC) 80 - 100 fL MCV 98 LAB MCHC2(LOIN 32.0 - 36.0 g/dL C) Low MCHC 31.0 LAB PLTCT(LOIN 150 - 450 x10E9/L C) PLT 260 LAB RDWCV(LOIN 11.5 - 14.5 % C) RDW-CV 12.9 Performed By: #### CBC #### [facility] [id number] [place] [address] RENAL FUNCTION PANEL Collected: 11/17/2018 Status: F Source: [place] 6:00 AM HOSPITALS REPOSITORY TYPE CODE TESTS RESULT OUT OF RANGE REFERENCE UNITS LAB GLU(LOINC) 74 - 99 mg/dL GLUCOSE 99 LAB SOD(LOINC) 136 - 145 mmol/L SODIUM 141 LAB K(LOINC) 3.5 - 5.3 mmol/L POTASSIUM 3.8 LAB CHLOR(LOIN 98 - 107 mmol/L C) CHLORIDE 105 LAB BIC(LOINC) 21 - 32 mmol/L BICARBONATE 30 LAB ANGAP(LOIN 10 - 20 mmol/L C) ANION GAP 10 LAB UREA(LOINC 6 - 23 mg/dL ) UREA NITROGEN 22 LAB CREA(LOINC 0.50 - 1.05 mg/dL ) CREATININE 0.94 LAB GFRFN(LOIN >60 mL/min/1.7 C) 3m2 GFR-NON Abnormal AM. 58 LAB GFRAA(LOIN >60 mL/min/1.7 C) 3m2 GFR- AM. 70 Result Comment: CALCULATIONS OF ESTIMATED GFR ARE PERFORMED USING THE MDRD STUDY EQUATION FOR THE IDMS-TRACEABLE CREATININE METHODS. CLIN CHEM 2007;53:766-72 LAB CA(LOINC) 8.6 - 10.6 mg/dL CALCIUM 9.0 LAB PHOS(LOINC) 2.5 - 4.9 mg/dL PHOSPHORUS 3.9 Result Comment: The performance characteristics of phosphorus testing in heparinized plasma have been validated by the individual laboratory site where testing is performed. Testing on heparinized plasma is not approved by the FDA; however, such approval is not necessary. LAB ALB(LOINC) 3.4 - 5.0 g/dL Low ALBUMIN 3.3 Performed By: #### RENAL #### [facility] [id number] [place] [address] DAILY PROGRESS Observed: 11/17/2018 Status: COMPLETED Source: UNIVERSITY NOTE-NEUROSURGERY 12:01 AM HOSPITALS REPOSITORY Service: Neurosurgery Subjective Data: TRISH HUNT is a 73 year old Female who is Hospital Day # 5. Objective Data: Objective Information: T PRBPSpO2 [id number]/6598% Date/Time11/16 19: 19: 19: 19: 19:39 Range(36.1C - 36.7C ) (86 - 97 ) (18 - 20 ) (120 - 143 )/ (65 - 84 ) (93% - 98% ) As of 15-Nov-2018 23:15:00, patient is on 1 L/min of oxygen via nasal cannula. Pain reported at 11/16 5:15: 4 Pain reported at 11/16 8:08: 6 Physical Exam: Neurological: AAOx3 (name, place, and year) PERRL, EOMI, VFF, CNII-XII intact Cooperative, and follows commands 5/5 in all muscle groups without a drift Sensation grossly intact to light touch No Adams, Babinski, or clonus Assessment and Plan: Assessment: Assessment: 73F with a history of HTN, HLD, DM, and a newly diagnosed hilar mass with b/l pleural effusions s/p pleuocentesis. I have personally reviewed the images, which include a CT, which shows a T10 bipedicular lesion c/f spinal mets, patient with nonfocal neurologic exam except for mechanical back pain. Pain well-controlled this AM. No acute events overnight. 11/15 s/p bronch biopsy (prelim NSCLC) MRI T10/11 lesion Plan - OR plan for 11/23 -fu bronch biopsy -pleural fluid cytology -surgical risk stratification Signature/Cosignature/Attestation: Attending AttestationI reviewed the resident/fellows documentation and discussed the patient with the resident/fellow. I agree with the resident/fellows medical decision making as documented in the residents note. Electronic Signatures: Huber Tamayo) (Signed 18-Nov-2018 20:20) Authored: Signature/Cosignature/Attestation Co-Signer: Service, Subjective Data, Objective Data, Assessment and Plan, Signature/Cosignature/Attestation Og Wylie (Resident)) (Signed 16-Nov-2018 21:28) Authored: Service, Subjective Data, Objective Data, Assessment and Plan, Signature/Cosignature/Attestation Last Updated: 18-Nov-2018 20:20 by Huber Tamayo) DAILY PROGRESS Observed: 11/16/2018 Status: COMPLETED Source: UNIVERSITY NOTE-MEDICINE 4:00 PM HOSPITALS REPOSITORY Service: Medicine Subjective Data: TRISH HUNT is a 73 year old Female who is Hospital Day # 5. Oh, the pain is still here on my side. I can't go to the bathroom in the bed.. Overnight Events: Patient had an uneventful night. Additional Information: Denies further nausea and vomiting. [facility] states she was comfortable through night and slept except for need for repeated need to get up to urinate. Objective Data: Objective Information: MEDICAL / SURGICAL HISTORY: - Hypertension - Impaired Fasting Glucose - Hyperlipidemia - Hypothyroidism - GERD - Peripheral Neuropathy - Morbid Obesity - Overactive Bladder * Spinal Cord Stimulator Implantation 08/2018 (removed 11/02) - Tonsillectomy - Hemorrhoidectomy - Cholecystectomy - L4-L5 Decompression 1999 T PRBPSpO2 [id number]/7197% Date/Time11/16 14: 14: 14: 14: 14:43 Range(36.1C - 36.7C ) (86 - 97 ) (18 - 19 ) (120 - 153 )/ (70 - 84 ) (93% - 98% ) As of 15-Nov-2018 23:15:00, patient is on 1 L/min of oxygen via nasal cannula. Pain reported at 11/16 5:15: 4 Pain reported at 11/16 4:00: 5 Physical Exam: Constitutional: Alert and oriented. lying in bed with fatigued appearance in no distress. Eyes: Sclera white ENMT: Mucous membranes moist Head/Neck: Normocephalic Respiratory/Thorax: Occasional moist non-productive cough. Respirations easy and unlabored with breath sounds clear to ausculation bilaterally posteriorly. Cardiovascular: Heart with regular rhythm, S1, S2, no appreciable murmur Gastrointestinal: Abdomen obese, non-distended, hypoactive bowel sounds, soft, non-tender Musculoskeletal: ROM intact, no joint swelling, normal strength Extremities: No cyanosis or wounds. 1+ edema of lower legs and feet bilaterally Neurological: Alert and oriented x3, intact senses and motor responses with 5/5 strength of arms and legs bilaterally Psychological: Appropriate mood and behavior Skin: Warm and dry, no lesions, no rashes Medication: Medications: Scheduled Medications 1. Acetaminophen: 975 mg Oral <User Schedule> 2. Albuterol 2.5 mg/ 3 mL Nebulizer Soln: 3 mL Inhalation Every 6 Hours 3. Enoxaparin SubCutaneous: 40 mg SubCutaneous Every 12 Hours 4. Fludeoxyglucose F-18 - (Radiology Contrast): 10 milliCurie IntraVenous Push Once 5. Morphine Extended Release (MS Contin-Oramorph SR): 15 mg Oral Every 12 Hours 6. Pantoprazole: 40 mg Oral Daily 7. Polyethylene Glycol: 17 gram(s) Oral 2 Times a Day 8. Simvastatin: 20 mg Oral At Bedtime 9. Sodium Chloride 0.9% Injectable Flush: 10 mL IntraVenous Flush Every 12 Hours PRN Medications 1. Albuterol 2.5 mg/ 3 mL Nebulizer Soln: 3 mL Inhalation Every 2 Hours 2. Bisacodyl Rectal: 10 mg Rectal Daily 3. Heparin Flush 10 unit/ mL PF Injectable: 5 mL IntraVenous Flush Every 12 Hours 4. Heparin Flush 10 unit/ mL PF Injectable PRN: 5 mL IntraVenous Flush According to Flush Policy 5. HYDROmorphone Injectable: 0.2 mg IntraVenous Push Every 4 Hours 6. Ketorolac Injectable: 15 mg IntraVenous Push Every 4 Hours 7. Lidocaine 1% Injectable (PICC KIT): 1 mL IntraDermal Once 8. Morphine Immediate Release: 7.5 mg Oral Every 3 Hours 9. Ondansetron Injectable: 4 mg IntraVenous Push Every 6 Hours 10. Polyethylene Glycol: 17 gram(s) Oral Daily 11. Sodium Chloride 0.9% Injectable Flush PRN: 10 mL IntraVenous Flush According to Flush Policy 12. Sodium Chloride 0.9% Injectable Flush PRN: 20 mL IntraVenous Flush According to Flush Policy 13. Sore Throat Lozenge: 1 lozenge(s) Oral Every 8 Hours Recent Lab Results: Results: I have reviewed these laboratory results: Complete Blood Count Trending View [id number] 11:32:00 15-Nov-2018 05:35:00 White Blood Cell Count9.1 7.2 Nucleated Erythrocyte Count0.0 0.0 Red Blood Cell Count4.18 3.98 L HGB12.5 12.3 HCT40.4 40.7 MCV97 102 H MCHC30.9 L 30.2 L DOX694 255 RDW-CV12.8 13.2 Comprehensive Metabolic Panel 16-Nov-2018 11:32:00 ResultValue Glucose, Serum 140 H NA 140 K 3.9 CL 104 Bicarbonate, Serum 27 Anion Gap, Serum 13 BUN 22 CREAT 0.87 GFR-Non >60 GFR- >60 Calcium, Serum 8.9 ALB 3.5 ALKP 37 T Pro 6.1 L T Bili 0.6 Alanine Aminotransferase, Serum 14 Aspartate Transaminase, Serum 17 Glucose_POCT 15-Nov-2018 15:26:00 ResultValue Glucose-POCT 118 H Assessment and Plan: Assessment: Trish Hunt is a 73 year old female former smoker w/ PMHx significant for HTN, Impaired Fasting Glucose, Hyperlipidemia, Peripheral Neuropathy, Hypothyroidism, GERD, Morbid Obesity and Recent Spinal Cord Stimulator Implant who is transferred to [facility] 11/12/18 from [facility] after presenting with intractable progressive back pain with SOB and found on imaging to have a lung mass with adenopathy and suspected spinal metastasis for neurosurgical evaluation and further care. . PLAN: In Shared Visit with Dr. Casimiro Yusuf 1) METASTATIC LUNG MALIGNANCY: Former smoker. Reported SOB and chest pain with deep breath at [place] [facility] presentation 11/11/18. A CT of the Chest showed Occlusion of the right middle bronchus with pleural effusion with suspected spinal metastasis. Pulmonary medicine and oncology were consulted with a Right Thoracentesis via U/S obtained 11/12/18 for 140 ml of fluid. The pleural fluid is reported to be exudative (cloudy, predominant monocytes (87%), TP: 2.5, LDH 500 (serum LDH 437), with culture and cytology pending. MRI of the brain 11/14/18 without lesions. Pulmonology consulted and a Bronchoscopy w/ EBUS yesterday with sampling of right hilar mass and subcarinal lymph node which were both positive for malignant cells, most likely non-small cell lung cancer of origin (based on prelim cytology). - follow [place] Pleural C&S and Cytology - Follow bronchoscopy / EBUS cytology on lymph node sampling - consult Oncology - keep in hospital until pathology finalized per their request - request that we ensure that path is sent for Next generation sequencing and PDL1 - will follow up in a.m. . - PET-CT on 11/17/18 - will need to be NPO except water after midnight / will order 0.4 mg Hydromorphone IV director surface transportation 2) T10 PATHOLOGIC FRACTURE: Likely a metastasis r/t # 1. Presented to [facility] 11/11/18 with intractable progressive back pain radiating around waist in band of 2-3 weeks accompanied by SOB. Due to the pain she had the Spinal Cord Stimulator Implanted in August removed on 10/25/18 without improvement of pain. She has prior disc surgery L4-L5 several years back and has been asymptomatic from it. She denies tingling or numbness, focal weakness of any extremity, bowel incontinence. She does have chronic urinary urge incontinence which has come back after her spinal stimulator was recently removed. A CT Chest, Abdomen and Pelvis at [place] showed a suspected Pathologic fracture of the T10 vertebral body with canal stenosis as well as additional vertebral lesions at T8, T9, and T11 suspicious for additional metastases. An MRI of the T spine was obtained and showed the lesion was not compressing the spine but was however in close proximity to the cord, and therefore she was given Decadron with request for transfer to [facility] for Neurosurgery evaluation. Neurosurgery consulted and did find evidence of cord compression. CT Thoracic and Lumbar Spine without contrast done at Neurosurgery request and some changes of lumbar CT noted as well. At Neurosurgery request, an MRI of the entire spine was done under Anesthesia yesterday with finding c/w earlier testing - await Pathology for # 1 - Dr. Conner to discuss surgical option with patient - potentially for 11/23/18 - Physical Therapy 3) BACK PAIN: intractable progressive back pain radiating around waist in band of 2-3 weeks accompanied by SOB. Due to the pain she had the Spinal Cord Stimulator Implanted in August removed on 10/25/18 without improvement of pain. She has prior disc surgery L4-L5 several years back and has been asymptomatic from it. She denies tingling or numbness, focal weakness of any extremity, bowel incontinence. Of note, the pain seems to be in a more lumbar distribution. The Oxycodone did not help her pain, but 0.2 mg IV Hydromorphone helps. She started Morphine instead yesterday which seems to have helped as well, but in pain after sleeping during night at awakening. She required Narcan in PACU yesterday, but is alert today. - continue Acetaminophen 975 mg by mouth three times a day - start Morphine Sulfate Contin 15 mg every 12 hours tonight - decrease Morphine from 7.5 mg to 5 mg by mouth every 3 hours PRN pain with long acting Morphine initiated - Toradol 15 mg IV every 4 hours PRN pain - Hydromorphone 0.2 mg IV every 4 hours PRN breakthrough pain x 1 - consider Palliative Care and Radiation thera[y consults - Physical Therapy consult - Ubaldo to decrease pain associated with frequent toileting 4) HYPOXIA: Has been requiring O2 via nasal cannula. Pleural effusions present on imaging. She had some wheezing 11/14/18 p.m. and uses Albuterol at home at times - oxygen at 2 liters PRN - Albuterol 2.5 mg / 3 ml every 6 hours nebulized 5) CONSTIPATION: r/t medication control for # 3. States take Miralax to assist - reported BM following Fleet enema 11/14/18, but none since - continue Miralax twice a day and PRN - if no BM by tomorrow will need to add an agent - add Bisacodyl suppository daily PRN 6) NAUSEA AND VOMITING: Nurse reports this not related to Morphine, as started prior. Her bowel sounds were hypoactive 11/14 morning and later in the afternoon she had some abdominal fullness and belching with emesis observed. A KUB showed a moderate amount of stool with a non-obstructive bowel gas pattern Could be r/t # 3, but concern for development of an ileus due to narcotic administration is a concern. She was given a Fleet enema with improvement of abdominal fullness and no further emesis. Resolved. - continue Ondansetron 4 mg IV every 6 hours PRN 7) SHLOMO: creatinine 1.2 post contrast with baseline 1.0 at [place].. Creatinine 0.9 today - resolved - discontinue IV NS - check renal function panel in a.m. 8) IMPAIRED FASTING GLUCOSE: Denies diagnosis of Diabetes. States was told had elevated blood glucose 20 years ago with Metformin initiated as preventive. 07/2018 Hgb A1C normal. Blood glucose 140 on a.m. non-fast labs - hold home Metformin ER - check fasting blood glucose in a.m. with labs 9) HYPOTHYROIDISM: TSH 0.86 - continue home Levothyroxine 50 mcg daily 10) MORBID OBESITY: BMI 43 11) CODE STATUS: Discussed with patient. She presently desires full interventions at arrest, but would not desire prolonged life support - Full code 12) DVT PROPHYLAXIS: - resume Enoxaparin 40 mg subcutaneous twice a day - sequential compression devices. 13) DISCHARGE DISPOSITION: Lives with . No home needs identified at present, but pain is presenting a challenge for ambulation - await PT evaluation. Family at bedside and supportive PCP: Dr. Harjinder Braswell [phone] Urology: Dr. Earnest Herrera Pharmacy: [facility] ([place]) [phone] DME: Nebulizer Insurer: [employer] Medicare Family: / POA Healthcare - Robbie Hunt [phone] Dtr. / 1st Alt. POA - Annita Kaushik [employer] [phone] / [phone] Dtr. / 2nd Alt. POA - Dionne Read [phone] Signature/Cosignature/Attestation: Provider/Team Contact Info-Pager Miriam Carlos [facility] # [id number] Attending Only - Shared Visit with Advanced Practice ProviderThis is a shared visit. I have reviewed the Advanced Practice Providers encounter note, approve the Advanced Practice Providers documentation, and provide the following additional information from my personal encounter. Comments/ Additional Findings Seen with the MACHINE SAND MIXER. Upset about her overactive bladder, frequent urination. Pain fairly controlled, received Morphine/ Dilaudid overnight. +cough, breathing OK, with some right lower chest pain. on exam, no distress b/l air entry, clear, no wheeze, no rales. S1 S2 regular rate, rhythm, no murmurs, rubs, gallops. obese, Soft, no tenderness, ND, BS+ No pedal edema, palpable pulses. plan Right hilar mass, with mediastinal adenopathy, s/p EBUS, biopsy Await path results, pending PET scan. Pain control for T10 collapse, mets. Appreciate neuro surgery input, await final recs regd surgery plans Overactive bladder Start extended release morphine tonight. PT/OT Electronic Signatures: Nessa Carlos (ALIGNMENT SPECIALIST-GRIEVANCE MANAGER) (Signed 17-Nov-2018 01:36) Authored: Service, Subjective Data, Objective Data, Assessment and Plan, Signature/Cosignature/Attestation Casimiro Yusuf) (Signed 16-Nov-2018 18:00) Authored: Signature/Cosignature/Attestation Last Updated: 17-Nov-2018 01:36 by Nessa Carlos (ALIGNMENT SPECIALIST-GRIEVANCE MANAGER) CONSULT-ONCOLOGY Observed: 11/16/2018 Status: COMPLETED Source: [facility] 12:53 HOSPITALS REPOSITORY Service: Service: Oncology Consult: Consult requested by (Attending Name): Dr. Yusuf Reason: lung mass, with suspected bone mets History of Present Illness: Admission Reason: t10 lesion on CT HPI: 73 year old woman with HTN, hypothyroidism, DM presenting to [facility] 11/11 for 2 weeks of intractable back pain found to have T10 impending compression from mass and also right hilar mass and mediastinal adenopathy with a R pleural effusion. She underwent diagnostic thoracentesis 11/12 with 140cc of exudative fluid removed (cytology pending). She was transferred to on 11/12 for neurosurgical evaluation given the spine imaging findings. Patient reports she has been in her usual state of health prior to the onset of the back pain. Denies any shortness of breath, dyspnea on exertion, cough, hemoptysis. Denies any fever or chills. MRI Brain 11/14 witut mets MRI spine 11/15: expansile osseous lesion most concerning for osseous metastatic disease involving the T10 vertebral body. There is pathologic collapse of the T10 vertebral body with approximately 15-20% loss of height of the T10 vertebral body. There is convexity of the posterior margin of the collapsed T10 vertebral body as well as expansion of the pedicles and posterior elements of the T10 vertebral body which along with a component of epidural thickening and enhancement contributes to partial circumferential effacement of the CSF signal of the subarachnoid space with suspected minimal flattening of the left dorsal lateral margin of the thoracic cord at the T10 level. There is additional abnormal bone marrow signal concerning for osseous metastatic disease involving the right aspect of the T11 vertebral body best appreciated right T11 pedicle, facet, and lamina. There is suspected osseous neoplastic involvement along the medial right 11th rib. There is abnormal bone marrow signal concerning for osseous neoplasm involving the posterior elements of the T9 vertebral body. PMH: as above PSH: cholecystectomy, spinal stimulator for overactive bladder Fam hx: Mother--lung ca (second hand smoke), sister with lung ca (smoker) Social History: previous smoker--quit in 2012, denies any known occupational exposures to dust, asbestos, silica. 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 Review Family/Social History and ROS: Review Family/Social History and ROS: I have reviewed the family and social history and review of systems from the History and Physical. Constitutional: NEGATIVE: Fever Eyes: NEGATIVE: Blurry Vision ENMT: NEGATIVE: Throat Pain Respiratory: NEGATIVE: Hemoptysis Cardiac: NEGATIVE: Syncope Gastrointestinal: NEGATIVE: Vomiting Genitourinary: NEGATIVE: Hematuria Musculoskeletal: POSITIVE: Swelling Neurological: NEGATIVE: Seizures Skin: NEGATIVE: Pruritus Hematologic/Lymph: NEGATIVE: Night Sweats Allergic/Immunologic: NEGATIVE: Itching Allergies: sulfa drugs: Itching Intolerances: codeine: Nausea/Vomiting lisinopril: Unknown Objective: Objective Information: T PRBPSpO2 [id number]% Date/Time11/16 12: 12: 12: 12: 12:21 Range(36.1C - 36.7C ) (86 - 97 ) (18 - 19 ) (120 - 153 )/ (70 - 84 ) (93% - 98% ) As of 15-Nov-2018 23:15:00, patient is on 1 L/min of oxygen via nasal cannula. Physical Exam: Constitutional: NAD Eyes: anicteric ENMT: MMM Head/Neck: NCAT Respiratory/Thorax: breathing comfortbaly on 1 liter NC Cardiovascular: normal rate Gastrointestinal: non tender Musculoskeletal: tender to palpation bilateral shins Extremities: KAUSHIK Neurological: alert Lymphatic: no cervical LAD Psychological: Appropriate mood and behavior Skin: dry Medications: Medications: Continuous Medications 1. Sodium Chloride 0.9% Infusion: 1000 mL IntraVenous <Continuous> Scheduled Medications 1. Acetaminophen: 975 mg Oral <User Schedule> 2. Albuterol 2.5 mg/ 3 mL Nebulizer Soln: 3 mL Inhalation Every 6 Hours 3. Enoxaparin SubCutaneous: 40 mg SubCutaneous Every 12 Hours 4. Fludeoxyglucose F-18 - (Radiology Contrast): 10 milliCurie IntraVenous Push Once 5. Morphine Extended Release (MS Contin-Oramorph SR): 15 mg Oral Every 12 Hours 6. Pantoprazole: 40 mg Oral Daily 7. Polyethylene Glycol: 17 gram(s) Oral 2 Times a Day 8. Simvastatin: 20 mg Oral At Bedtime 9. Sodium Chloride 0.9% Injectable Flush: 10 mL IntraVenous Flush Every 12 Hours PRN Medications 1. Albuterol 2.5 mg/ 3 mL Nebulizer Soln: 3 mL Inhalation Every 2 Hours 2. Bisacodyl Rectal: 10 mg Rectal Daily 3. Heparin Flush 10 unit/ mL PF Injectable: 5 mL IntraVenous Flush Every 12 Hours 4. Heparin Flush 10 unit/ mL PF Injectable PRN: 5 mL IntraVenous Flush According to Flush Policy 5. HYDROmorphone Injectable: 0.2 mg IntraVenous Push Every 4 Hours 6. Ketorolac Injectable: 15 mg IntraVenous Push Every 4 Hours 7. Lidocaine 1% Injectable (PICC KIT): 1 mL IntraDermal Once 8. Morphine Immediate Release: 7.5 mg Oral Every 3 Hours 9. Ondansetron Injectable: 4 mg IntraVenous Push Every 6 Hours 10. Polyethylene Glycol: 17 gram(s) Oral Daily 11. Sodium Chloride 0.9% Injectable Flush PRN: 10 mL IntraVenous Flush According to Flush Policy 12. Sodium Chloride 0.9% Injectable Flush PRN: 20 mL IntraVenous Flush According to Flush Policy 13. Sore Throat Lozenge: 1 lozenge(s) Oral Every 8 Hours Recent Lab Results: Results: I have reviewed these laboratory results: Complete Blood Count Trending View [id number] 11:32:00 15-Nov-2018 05:35:00 White Blood Cell Count9.1 7.2 Nucleated Erythrocyte Count0.0 0.0 Red Blood Cell Count4.18 3.98 L HGB12.5 12.3 HCT40.4 40.7 MCV97 102 H MCHC30.9 L 30.2 L [id number] 255 RDW-CV12.8 13.2 Comprehensive Metabolic Panel 16-Nov-2018 11:32:00 ResultValue Glucose, Serum 140 H NA 140 K 3.9 CL 104 Bicarbonate, Serum 27 Anion Gap, Serum 13 BUN 22 CREAT 0.87 GFR-Non >60 GFR- >60 Calcium, Serum 8.9 ALB 3.5 ALKP 37 T Pro 6.1 L T Bili 0.6 Alanine Aminotransferase, Serum 14 Aspartate Transaminase, Serum 17 Glucose_POCT 15-Nov-2018 15:26:00 ResultValue Glucose-POCT 118 H Urinalysis 13-Nov-2018 04:32:00 ResultValue Color, Urine YELLOW Reference Range: STRAW,YELLOW Appearance, Urine CLEAR Specific [place], Urine 1.017 pH, Urine 6.0 Protein, Urine NEGATIVE Glucose, Urine NEGATIVE Blood, Urine NEGATIVE Ketones, Urine NEGATIVE Bilirubin, Urine NEGATIVE Urobilinogen, Urine <2.0 Nitrite, Urine NEGATIVE Leukocyte Esterase, Urine NEGATIVE Complete Blood Count + Differential 13-Nov-2018 00:41:00 ResultValue White Blood Cell Count 7.9 Nucleated Erythrocyte Count 0.0 Red Blood Cell Count 4.70 HGB 14.2 HCT 46.0 MCV 98 MCHC 30.9 L PLT 308 RDW-CV 13.2 Neutrophil % 88.4 Immature Granulocytes % 1.0 Lymphocyte % 8.1 Monocyte % 2.4 Eosinophil % 0.0 Basophil % 0.1 Neutrophil Count 7.02 H Lymphocyte Count 0.64 L Monocyte Count 0.19 Eosinophil Count 0.00 Basophil Count 0.01 Radiology Results: Results: Impression: There is an expansile osseous lesion most concerning for osseous metastatic disease involving the T10 vertebral body. There is pathologic collapse of the T10 vertebral body with approximately 15-20% loss of height of the T10 vertebral body. There is convexity of the posterior margin of the collapsed T10 vertebral body as well as expansion of the pedicles and posterior elements of the T10 vertebral body which along with a component of epidural thickening and enhancement contributes to partial circumferential effacement of the CSF signal of the subarachnoid space with suspected minimal flattening of the left dorsal lateral margin of the thoracic cord at the T10 level. There is additional abnormal bone marrow signal concerning for osseous metastatic disease involving the right aspect of the T11 vertebral body best appreciated right T11 pedicle, facet, and lamina. There is suspected osseous neoplastic involvement along the medial right 11th rib. There is abnormal bone marrow signal concerning for osseous neoplasm involving the posterior elements of the T9 vertebral body. The remainder of the visualized osseous structures demonstrate diffuse nonspecific inhomogeneous ill-defined diminished bone marrow signal on the T1 weighted images which while nonspecific can be seen with anemia or osteopenia although additional more diffuse infiltrative osseous neoplasm cannot be excluded. There is multilevel spondylosis as described above. There are bilateral pleural effusions right greater than left along with atelectasis and/or infiltrate within the partially imaged posterior lungs bilaterally. There is additional nodular fullness concerning for underlying mass within the partially imaged right lung. Correlation with dedicated chest imaging is recommended. The study was interpreted at [facility] [place]. MRI Cervical w/wo Contrast [Nov 15 2018 3:32PM] Impression: There is an expansile osseous lesion most concerning for osseous metastatic disease involving the T10 vertebral body. There is pathologic collapse of the T10 vertebral body with approximately 15-20% loss of height of the T10 vertebral body. There is convexity of the posterior margin of the collapsed T10 vertebral body as well as expansion of the pedicles and posterior elements of the T10 vertebral body which along with a component of epidural thickening and enhancement contributes to partial circumferential effacement of the CSF signal of the subarachnoid space with suspected minimal flattening of the left dorsal lateral margin of the thoracic cord at the T10 level. There is additional abnormal bone marrow signal concerning for osseous metastatic disease involving the right aspect of the T11 vertebral body best appreciated right T11 pedicle, facet, and lamina. There is suspected osseous neoplastic involvement along the medial right 11th rib. There is abnormal bone marrow signal concerning for osseous neoplasm involving the posterior elements of the T9 vertebral body. The remainder of the visualized osseous structures demonstrate diffuse nonspecific inhomogeneous ill-defined diminished bone marrow signal on the T1 weighted images which while nonspecific can be seen with anemia or osteopenia although additional more diffuse infiltrative osseous neoplasm cannot be excluded. There is multilevel spondylosis as described above. There are bilateral pleural effusions right greater than left along with atelectasis and/or infiltrate within the partially imaged posterior lungs bilaterally. There is additional nodular fullness concerning for underlying mass within the partially imaged right lung. Correlation with dedicated chest imaging is recommended. The study was interpreted at [facility] [place]. MRI T Spine w/wo Contrast [Nov 15 2018 3:32PM] Impression: There is an expansile osseous lesion most concerning for osseous metastatic disease involving the T10 vertebral body. There is pathologic collapse of the T10 vertebral body with approximately 15-20% loss of height of the T10 vertebral body. There is convexity of the posterior margin of the collapsed T10 vertebral body as well as expansion of the pedicles and posterior elements of the T10 vertebral body which along with a component of epidural thickening and enhancement contributes to partial circumferential effacement of the CSF signal of the subarachnoid space with suspected minimal flattening of the left dorsal lateral margin of the thoracic cord at the T10 level. There is additional abnormal bone marrow signal concerning for osseous metastatic disease involving the right aspect of the T11 vertebral body best appreciated right T11 pedicle, facet, and lamina. There is suspected osseous neoplastic involvement along the medial right 11th rib. There is abnormal bone marrow signal concerning for osseous neoplasm involving the posterior elements of the T9 vertebral body. The remainder of the visualized osseous structures demonstrate diffuse nonspecific inhomogeneous ill-defined diminished bone marrow signal on the T1 weighted images which while nonspecific can be seen with anemia or osteopenia although additional more diffuse infiltrative osseous neoplasm cannot be excluded. There is multilevel spondylosis as described above. There are bilateral pleural effusions right greater than left along with atelectasis and/or infiltrate within the partially imaged posterior lungs bilaterally. There is additional nodular fullness concerning for underlying mass within the partially imaged right lung. Correlation with dedicated chest imaging is recommended. The study was interpreted at [facility] [place]. MRI L Spine w/wo Contrast [Nov 15 2018 3:32PM] Impression: 1. 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 2. Tumor is also noted in the T9 and T11 vertebrae. 3. The left L5 pedicle has vague lucency with questionable cortical breakthrough along its superior margin suspicious for tumor; the spinal canal and lateral recesses are stenosed at this level secondary to degenerative changes and questionable soft tissue along the left ventral thecal sac which may represent tumor as well. MR is recommended for further evaluation. 4. Enlarged mediastinal and probably enlarged right hilar lymph nodes are present; the right hilum is difficult to evaluate due to consolidation and atelectasis in the right middle lobe. Enhanced CT is recommended for further evaluation. 5. Layering right pleural effusion. 6. There is questionable bowel wall thickening along the left side of the rectum. Direct visualization may be helpful for further evaluation. 7. The lateral recess and spinal canal stenoses on a degenerative basis are also noted elsewhere in the lumbar region. Findings called to the floor at 3:[address] T Spine without Contrast [Nov 14 2018 3:19PM] Impression: 1. 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 2. Tumor is also noted in the T9 and T11 vertebrae. 3. The left L5 pedicle has vague lucency with questionable cortical breakthrough along its superior margin suspicious for tumor; the spinal canal and lateral recesses are stenosed at this level secondary to degenerative changes and questionable soft tissue along the left ventral thecal sac which may represent tumor as well. MR is recommended for further evaluation. 4. Enlarged mediastinal and probably enlarged right hilar lymph nodes are present; the right hilum is difficult to evaluate due to consolidation and atelectasis in the right middle lobe. Enhanced CT is recommended for further evaluation. 5. Layering right pleural effusion. 6. There is questionable bowel wall thickening along the left side of the rectum. Direct visualization may be helpful for further evaluation. 7. The lateral recess and spinal canal stenoses on a degenerative basis are also noted elsewhere in the lumbar region. Findings called to the floor at 3:[address] L Spine without Contrast [Nov 14 2018 3:19PM] Impression: No mass, hemorrhage or abnormal enhancement suspicious for metastatic disease is noted. The focal white matter hyperintensities are nonspecific and may be secondary to chronic microvascular ischemic, degenerative or other etiologies. MRI Brain w/wo Contrast [Nov 14 2018 2:03PM] Assessment: 73 year old woman with HTN, hypothyroidism, DM presenting to [facility] 11/11 for 2 weeks of intractable back pain found to have T10 impending compression from mass and also right hilar mass and mediastinal adenopathy with a R pleural effusion. MRI brain w/o mets. MRI spine with pathologic collapse t10, met in t9, 11th rib. Cytology from thoracentesis is pending Discussed preliminary diagnosis of Stage IV NSCLC with bone mets with daughter and grand daughter. Discussed that we will need final path until we know for sure what we are dealing with and what treatment will be indicated. Discussed with patient that treatment will depend on pathology, next generation sequencing and PDL1 expression. Please ensure that path is sent for Next generation sequencing and PDL1 (if in fact non small cell lung cancer) Please keep inpatient until final path results Agree with PET (if unable to get PET will need CT chest with contrast and CT abd pelvis w/contrast from OSH to be read here. CT chest OSH was without contrast) Patient will need discussion regarding systemic therapy after completion of surgical treatment / radiation therapy. Decision regarding systemic treatment will be made as an outpatient based on pathology and her functional status post discharge. Unable to discuss prognosis without tissue diagnosis, however would expect >6 months if in fact NSCLC. please place physician preschool special education teacher appointment request for medical oncology prior to discharge (pt lives in [place], unlikely to follow up here) Please page [phone] with additional questions Signature/Cosignature/Attestation: Attending AttestationI saw and evaluated the patient. I personally obtained the almonte and critical portions of the history and physical exam or was physically present for almonte and critical portions performed by the resident/fellow. I reviewed the resident/fellows documentation and discussed the patient with the resident/fellow. I agree with the resident/fellows medical decision making as documented in the resident/fellows note with the exception/addition of the following: I personally evaluated the patient (as noted in the above attestation) on 16-Nov-2018 Comments/ Additional Findings Attestation: I saw and evaluated the patient. I personally obtained the almonte and critical portions of the history and physical exam or was physically present for almonte and critical portions performed by the resident/fellow/med student/AI. I reviewed the resident/fellows/med student/AI documentation and discussed the patient with the resident/fellow/med student/AI. I agree with the resident/fellows/medical student 's medical decision making as documented in the residents note I personally evaluated the patient (as noted in the above attestation) on the date above with the added comments below: Discussed in detail with patient and patient's granddaughter. At this point we are awaiting definitive pathology. I did review a no clear cytology from pleural effusion. At this point concern for stage IV metastatic disease with pleural effusion, only metastases, and will need definitive pathology to help determine prognosis. Discussed differential versus non-small cell versus small cell versus specific molecular or targeted alterations that may help guide therapy. Also discussed the potential rationale for PET scan to further stage disease. In regards to treatment such as definitive resection due to bony metastases with impending concern for spinal cord compression including surgical intervention and discussed surgical intervention alone versus the role of surgical intervention plus radiation versus the role of radiation alone. Also discussed role of systemic therapy. Discussed all options and for now she would like to hold off until definitive pathology. Recommend consultation with radiation oncology. Also recommendation for consultation with palliative care, and there may be some benefit for steroids to help with symptoms. Continue to monitor. I sincerely appreciate the opportunity to see this patient and will contact the referring provider by phone or communicate directly through the electric chart. All the patients questioned were answered and contact information provided to contact us with any issues. Matt Doan MD [employer] Helper in Medicine [facility] [employer] /Cutaneous Malignancies [facility] / [facility] Office [phone] / [phone] Patient line [phone] Electronic Signatures: Alberto Soares (Fellow)) (Signed 16-Nov-2018 13:51) Authored: Service, History of Present Illness, Review Family/Social History and ROS, Allergies, Objective, Assessment/Recommendations, Signature/Cosignature/Attestation Matt Doan) (Signed 16-Nov-2018 20:39) Authored: Signature/Cosignature/Attestation Co-Signer: Service, History of Present Illness, Review Family/Social History and ROS, Allergies, Objective, Assessment/Recommendations, Signature/Cosignature/Attestation Last Updated: 16-Nov-2018 20:39 by Matt Doan) CBC Collected: 11/16/2018 Status: F Source: [facility] 11:32 AM HOSPITALS REPOSITORY TYPE CODE TESTS RESULT OUT OF REFERENCE UNITS RANGE LAB WBCR(LOINC 4.4 - 11.3 x10E9/L ) WBC 9.1 LAB NRBC(LOINC 0.0-0.0 /100 WBC ) NUCLEATED RBC 0.0 LAB RBCCT(LOIN 4.00 - 5.20 x10E12/L C) RBC 4.18 LAB HGB(LOINC) 12.0 - 16.0 g/dL HGB 12.5 LAB HCT(LOINC) 36.0 - 46.0 % HCT 40.4 LAB MCV(LOINC) 80 - 100 fL MCV 97 LAB MCHC2(LOIN 32.0 - 36.0 g/dL C) Low MCHC 30.9 LAB PLTCT(LOIN 150 - 450 x10E9/L C) PLT 252 LAB RDWCV(LOIN 11.5 - 14.5 % C) RDW-CV 12.8 Performed By: #### CBC #### [facility] [id number] [place] [address] COMPREHENSIVE PANEL Collected: 11/16/2018 Status: F Source: [facility] 11:32 AM HOSPITALS REPOSITORY TYPE CODE TESTS RESULT OUT OF REFERENCE UNITS RANGE LAB GLU(LOINC) 74 - 99 mg/dL GLUCOSE High 140 LAB SOD(LOINC) 136 - 145 mmol/L SODIUM 140 LAB K(LOINC) 3.5 - 5.3 mmol/L POTASSIUM 3.9 LAB CHLOR(LOIN 98 - 107 mmol/L C) CHLORIDE 104 LAB BIC(LOINC) 21 - 32 mmol/L BICARBONATE 27 LAB ANGAP(LOIN 10 - 20 mmol/L C) ANION GAP 13 LAB UREA(LOINC 6 - 23 mg/dL ) UREA NITROGEN 22 LAB CREA(LOINC 0.50 - 1.05 mg/dL ) CREATININE 0.87 LAB GFRFN(LOIN >60 mL/min/1.7 C) 3m2 GFR-NON AM. >60 LAB GFRAA(LOIN >60 mL/min/1.7 C) 3m2 GFR- AM. >60 Result Comment: CALCULATIONS OF ESTIMATED GFR ARE PERFORMED USING THE MDRD STUDY EQUATION FOR THE IDMS-TRACEABLE CREATININE METHODS. CLIN CHEM 2007;53:766-72 LAB CA(LOINC) 8.6 - 10.6 mg/dL CALCIUM 8.9 LAB ALB(LOINC) 3.4 - 5.0 g/dL ALBUMIN 3.5 LAB AP(LOINC) 33 - 136 U/L ALKALINE PHOSPHATASE 37 LAB TP(LOINC) 6.4 - 8.2 g/dL TOTAL PROTEIN Low 6.1 LAB AST(LOINC) 9 - 39 U/L AST 17 LAB TBILI(LOINC) 0.0 - 1.2 mg/dL BILIRUBIN,TOTAL 0.6 LAB ALT(LOINC) 7 - 45 U/L ALT 14 Result Comment: Patients treated with Sulfasalazine may generate falsely decreased results for ALT. Performed By: #### CMP #### [facility] [id number] [place] [address] DAILY PROGRESS Observed: 11/16/2018 Status: COMPLETED Source: [facility]-PULMONOLOGY 9:59 AM HOSPITALS REPOSITORY Service: Pulmonology Subjective Data: TRISH HUNT is a 73 year old Female who is Hospital Day # 5. Additional Information: Ms. Hunt underwent MRI of spine yesterday. Communicated with patient findings from preliminary cytology of non-small cell lung cancer. The patient expressed understanding. Complained of back pain, which has improved since yesterday. Denied any other complaints. Objective Data: Objective Information: T PRBPSpO2 [id number]% Date/Time11/16 7: 7: 7: 7: 7:07 Range(36.1C - 36.7C ) (86 - 97 ) (18 - 18 ) (122 - 153 )/ (70 - 84 ) (93% - 97% ) As of 15-Nov-2018 23:15:00, patient is on 1 L/min of oxygen via nasal cannula. Pain reported at 11/16 5:15: 4 Pain reported at 11/16 4:00: 5 Physical Exam: Constitutional: alert, in NAD on NC, pleasant, obese Eyes: no scleral icterus ENMT: clear OP Head/Neck: No JVD Respiratory/Thorax: diminished air entry BL, no crackles or wheezes Cardiovascular: S1 and S2 Extremities: no pedal edema Neurological: no focal deficits, moves all four limbs independently Lymphatic: No significant lymphadenopathy Psychological: Appropriate mood and behavior Skin: dry no rash Medication: Medications: Continuous Medications 1. Sodium Chloride 0.9% Infusion: 1000 mL IntraVenous <Continuous> Scheduled Medications 1. Acetaminophen: 975 mg Oral <User Schedule> 2. Albuterol 2.5 mg/ 3 mL Nebulizer Soln: 3 mL Inhalation Every 6 Hours 3. Enoxaparin SubCutaneous: 40 mg SubCutaneous Every 12 Hours 4. Fludeoxyglucose F-18 - (Radiology Contrast): 10 milliCurie IntraVenous Push Once 5. Pantoprazole Injectable: 40 mg IntraVenous Push Every 24 Hours 6. Polyethylene Glycol: 17 gram(s) Oral 2 Times a Day 7. Simvastatin: 20 mg Oral At Bedtime 8. Sodium Chloride 0.9% Injectable Flush: 10 mL IntraVenous Flush Every 12 Hours PRN Medications 1. Albuterol 2.5 mg/ 3 mL Nebulizer Soln: 3 mL Inhalation Every 2 Hours 2. Bisacodyl Rectal: 10 mg Rectal Daily 3. Heparin Flush 10 unit/ mL PF Injectable: 5 mL IntraVenous Flush Every 12 Hours 4. Heparin Flush 10 unit/ mL PF Injectable PRN: 5 mL IntraVenous Flush According to Flush Policy 5. HYDROmorphone Injectable: 0.2 mg IntraVenous Push Every 4 Hours 6. HYDROmorphone Injectable: 0.8 mg IntraVenous Push Once 7. Ketorolac Injectable: 15 mg IntraVenous Push Every 4 Hours 8. Lidocaine 1% Injectable (PICC KIT): 1 mL IntraDermal Once 9. Morphine Immediate Release: 7.5 mg Oral Every 3 Hours 10. Ondansetron Injectable: 4 mg IntraVenous Push Every 6 Hours 11. Polyethylene Glycol: 17 gram(s) Oral Daily 12. Sodium Chloride 0.9% Injectable Flush PRN: 10 mL IntraVenous Flush According to Flush Policy 13. Sodium Chloride 0.9% Injectable Flush PRN: 20 mL IntraVenous Flush According to Flush Policy 14. Sore Throat Lozenge: 1 lozenge(s) Oral Every 8 Hours Recent Lab Results: Results: I have reviewed these laboratory results: Complete Blood Count 15-Nov-2018 05:35:00 ResultValue White Blood Cell Count 7.2 Nucleated Erythrocyte Count 0.0 Red Blood Cell Count 3.98 L HGB 12.3 HCT 40.7 MCV 102 H MCHC 30.2 L PLT 255 RDW-CV 13.2 Renal Function Panel 15-Nov-2018 05:35:00 ResultValue Glucose, Serum 91 NA 142 K 4.0 CL 106 Bicarbonate, Serum 28 Anion Gap, Serum 12 BUN 27 H CREAT 0.96 GFR-Non 57 A GFR- 69 Calcium, Serum 8.7 Phosphorus, Serum 5.9 H ALB 3.1 L Assessment and Plan: Assessment: 73 year old female with new onset back pain presenting to OSH, found to have spinal lesions, impending cord compression at T10 (by imaging) and R hilar mas with mediastinal adenopathy. Patient underwent bronchoscopy with EBUS and sampling of right hilar mass and subcarinal lymph node which were both positive for malignant cells, most likely non-small cell lung cancer of origin (based on prelim cytology). Problems: 1. Lung mass with positive cytology 2. Mediastinal/hilar adenopathy 3. Metastatic Non-small cell lung cancer 4. Spinal metastasis Recommend: - Awaiting final cytology on lymph node sampling - Spinal metastasis management per primary and neurosurgery team - Suggest medical oncology and radiation oncology consult - Pain control per primary service - Will continue to follow Thank you for allowing our service to participate in the patient's care, and please feel free to page at [phone] for any further questions. Signature/Cosignature/Attestation: Attending AttestationI saw and evaluated the patient. I personally obtained the almonte and critical portions of the history and physical exam or was physically present for almonte and critical portions performed by the resident/fellow. I reviewed the resident/fellows documentation and discussed the patient with the resident/fellow. I agree with the resident/fellows medical decision making as documented in the residents note. I personally evaluated the patient (as noted in the above attestation) on 16-Nov-2018 Electronic Signatures: Israel Mensah (Fellow)) (Signed 16-Nov-2018 10:04) Authored: Service, Subjective Data, Objective Data, Assessment and Plan, Signature/Cosignature/Attestation Jane Lewis) (Signed 16-Nov-2018 18:34) Authored: Assessment and Plan, Signature/Cosignature/Attestation Co-Signer: Service, Subjective Data, Objective Data, Assessment and Plan, Signature/Cosignature/Attestation Last Updated: 16-Nov-2018 18:34 by Jane Lewis) CBC Collected: 11/16/2018 Status: CANCELLED Source: [facility] 6:53 AM HOSPITALS REPOSITORY Order Comment: TEST CBC WAS CANCELLED, 11/16/2018 08:25 SPECIMEN CLOTTED.PLEASE RESUBMIT. TYPE CODE TESTS RESULT OUT OF REFERENCE UNITS RANGE LAB WBCR(LOINC ) WBC Canceled LAB NRBC(LOINC ) NUCLEATED RBC Canceled LAB RBCCT(LOIN C) RBC Canceled LAB HGB(LOINC) HGB Canceled LAB HCT(LOINC) HCT Canceled LAB MCV(LOINC) MCV Canceled LAB MCHC2(LOIN C) MCHC Canceled LAB PLTCT(LOIN C) PLT Canceled LAB RDWCV(LOIN C) RDW-CV Canceled Performed By: #### CBC #### [facility] [id number] [place] [id number] COMPREHENSIVE PANEL Collected: 11/16/2018 Status: CANCELLED Source: [facility] 6:53 AM HOSPITALS REPOSITORY Order Comment: TEST COMPREHENSIVE PANEL WAS CANCELLED, 11/16/2018 09:12 CONTAMINATION. TYPE CODE TESTS RESULT OUT OF REFERENCE UNITS RANGE LAB GLU(LOINC) GLUCOSE Canceled LAB SOD(LOINC) SODIUM Canceled LAB K(LOINC) POTASSIUM Canceled LAB CHLOR(LOIN C) CHLORIDE Canceled LAB BIC(LOINC) BICARBONATE Canceled LAB ANGAP(LOIN C) ANION GAP Canceled LAB UREA(LOINC ) UREA NITROGEN Canceled LAB CREA(LOINC ) CREATININE Canceled LAB GFRFN(LOIN C) GFR-NON AM. Canceled LAB GFRAA(LOIN C) GFR- AM. Canceled Result Comment: CALCULATIONS OF ESTIMATED GFR ARE PERFORMED USING THE MDRD STUDY EQUATION FOR THE IDMS-TRACEABLE CREATININE METHODS. CLIN CHEM 2007;53:766-72 LAB CA(LOINC) CALCIUM Canceled LAB ALB(LOINC) ALBUMIN Canceled LAB AP(LOINC) ALKALINE Canceled PHOSPHATASE LAB TP(LOINC) TOTAL PROTEIN Canceled LAB AST(LOINC) AST Canceled LAB TBILI(LOINC) BILIRUBIN,TOTAL Canceled LAB ALT(LOINC) ALT Canceled Result Comment: Patients treated with Sulfasalazine may generate falsely decreased results for ALT. Performed By: #### CMP #### [facility] [id number] [place] [address] DAILY PROGRESS Observed: 11/16/2018 Status: COMPLETED Source: [facility]-NEUROSURGERY 12:01 AM HOSPITALS REPOSITORY Service: Neurosurgery Subjective Data: TRISH HUNT is a 73 year old Female who is Hospital Day # 4. Objective Data: Objective Information: T PRBPSpO2 [id number]/6796% Date/Time11/15 7: 7: 7: 7: 7:25 Range(36.6C - 37.1C ) (80 - 93 ) (17 - 21 ) (107 - 132 )/ (67 - 79 ) (94% - 100% ) Highest temp of 37.1 C was recorded at 11/14 19:17 Pain reported at 11/14 21:30: 7 Pain reported at 11/15 7:40: 7 Physical Exam: Neurological: AAOx3 (name, place, and year) PERRL, EOMI, VFF, CNII-XII intact Cooperative, and follows commands 5/5 in all muscle groups without a drift Sensation grossly intact to light touch No Adams, Babinski, or clonus Assessment and Plan: Assessment: Assessment: 73F with a history of HTN, HLD, DM, and a newly diagnosed hilar mass with b/l pleural effusions s/p pleuocentesis. I have personally reviewed the images, which include a CT, which shows a T10 bipedicular lesion c/f spinal mets, patient with nonfocal neurologic exam except for mechanical back pain. Pain well-controlled this AM. No acute events overnight. Plan - MRI spine under anesthesia Abiel Markham MD Resident Physician Department of Neurological Surgery [email or web address] Pager: [phone] Personal Pager: [phone] Signature/Cosignature/Attestation: Attending AttestationI reviewed the resident/fellows documentation and discussed the patient with the resident/fellow. I agree with the resident/fellows medical decision making as documented in the residents note. Electronic Signatures: Titus Conner) (Signed 16-Nov-2018 11:27) Authored: Signature/Cosignature/Attestation Co-Signer: Service, Subjective Data, Objective Data, Assessment and Plan, Signature/Cosignature/Attestation Og Wylie (Resident)) (Signed 15-Nov-2018 15:23) Authored: Service, Subjective Data, Objective Data, Assessment and Plan, Signature/Cosignature/Attestation Last Updated: 16-Nov-2018 11:27 by Titus Conner) DAILY PROGRESS Observed: 11/15/2018 Status: COMPLETED Source: [facility] NOTE-MEDICINE 8:26 PM HOSPITALS REPOSITORY Service: Medicine Subjective Data: TRISH HUNT is a 73 year old Female who is Hospital Day # 4. It's just not fair that this is happening to me all at once.. Overnight Events: Acute events in the past 24 hours include Additional Information: Had bronchoscopy and MRI under Anesthesia today with Narcan required in PACU due to sedation. Reports continued pain on right side. Denies further nausea and vomiting Objective Data: Objective Information: MEDICAL / SURGICAL HISTORY: - Hypertension - Impaired Fasting Glucose - Hyperlipidemia - Hypothyroidism - GERD - Peripheral Neuropathy - Morbid Obesity - Overactive Bladder * Spinal Cord Stimulator Implantation 08/2018 (removed 11/02) - Tonsillectomy - Hemorrhoidectomy - Cholecystectomy - L4-L5 Decompression 1999 T PRBPSpO2 [id number]/8396% Date/Time11/15 17: 17: 17: 17: 17:56 Range(36.6C - 37C ) (81 - 95 ) (17 - 21 ) (107 - 153 )/ (67 - 83 ) (96% - 100% ) Highest temp of 37 C was recorded at 11/15 3:41 Pain reported at 11/14 21:30: 7 Pain reported at 11/15 17:15: 7 Weights 11/15 3:41: Weight in kg (Weight (kg)) 114.2 11/15 3:41: Weight in lbs ((lbs)) 251.8 Pain reported at 11/14 21:30: 7 Pain reported at 11/15 17:15: 7 Physical Exam: Constitutional: Somewhat drowsy, but grimacing in pain, oriented, although with slowed responses to questions Eyes: Sclera white ENMT: Mucous membranes moist Head/Neck: Normocephalic Respiratory/Thorax: Moist non-productive cough. Respirations easy and unlabored with breath sounds clear to ausculation bilaterally anteriorly. Cardiovascular: Heart with regular rhythm, S1, S2, no appreciable murmur Gastrointestinal: Abdomen obese, non-distended, hypoactive bowel sounds, soft, non-tender Musculoskeletal: ROM intact, no joint swelling, normal strength Extremities: No cyanosis or wounds. 1+ edema of lower legs and feet bilaterally Neurological: Alert and oriented x3, intact senses and motor responses with 5/5 strength of arms and legs bilaterally Psychological: Somewhat drowsy as well as uncomfortable Skin: Warm and dry, no lesions, no rashes Medication: Medications: Continuous Medications 1. Sodium Chloride 0.9% Infusion: 1000 mL IntraVenous at 75 ml / hour Scheduled Medications 1. Acetaminophen: 975 mg Oral <User Schedule> 2. Albuterol 2.5 mg/ 3 mL Nebulizer Soln: 3 mL Inhalation Every 6 Hours 3. Enoxaparin SubCutaneous: 40 mg SubCutaneous Every 12 Hours 4. Fludeoxyglucose F-18 - (Radiology Contrast): 10 milliCurie IntraVenous Push Once 5. Pantoprazole Injectable: 40 mg IntraVenous Push Every 24 Hours 6. Polyethylene Glycol: 17 gram(s) Oral 2 Times a Day 7. Simvastatin: 20 mg Oral At Bedtime 8. Sodium Chloride 0.9% Injectable Flush: 10 mL IntraVenous Flush Every 12 Hours PRN Medications 1. Albuterol 2.5 mg/ 3 mL Nebulizer Soln: 3 mL Inhalation Every 2 Hours 2. Bisacodyl Rectal: 10 mg Rectal Daily 3. Heparin Flush 10 unit/ mL PF Injectable: 5 mL IntraVenous Flush Every 12 Hours 4. Heparin Flush 10 unit/ mL PF Injectable PRN: 5 mL IntraVenous Flush According to Flush Policy 5. HYDROmorphone Injectable: 0.8 mg IntraVenous Push Once 6. HYDROmorphone Injectable: 0.2 mg IntraVenous Push Every 4 Hours 7. Ketorolac Injectable: 15 mg IntraVenous Push Every 4 Hours 8. Lidocaine 1% Injectable (PICC KIT): 1 mL IntraDermal Once 9. Morphine Immediate Release: 7.5 mg Oral Every 3 Hours 10. Ondansetron Injectable: 4 mg IntraVenous Push Every 6 Hours 11. Polyethylene Glycol: 17 gram(s) Oral Daily 12. Sodium Chloride 0.9% Injectable Flush PRN: 10 mL IntraVenous Flush According to Flush Policy 13. Sodium Chloride 0.9% Injectable Flush PRN: 20 mL IntraVenous Flush According to Flush Policy Recent Lab Results: Results: I have reviewed these laboratory results: Glucose_POCT 15-Nov-2018 15:26:00 ResultValue Glucose-POCT 118 H Complete Blood Count 15-Nov-2018 05:35:00 ResultValue White Blood Cell Count 7.2 Nucleated Erythrocyte Count 0.0 Red Blood Cell Count 3.98 L HGB 12.3 HCT 40.7 MCV 102 H MCHC 30.2 L PLT 255 RDW-CV 13.2 Renal Function Panel Trending View [id number] 05:35:00 14-Nov-2018 06:57:00 Glucose, Serum91 132 H NA142 143 K4.0 4.1 CL106 108 H Bicarbonate, Serum28 26 Anion Gap, Serum12 13 BUN27 H 32 H CREAT0.96 1.12 H GFR-Non [id number] A 47 A GFR- [id number] 57 A Calcium, Serum8.7 9.2 Phosphorus, Serum5.9 H 4.4 ALB3.1 L 3.7 Radiology Results: Results: MRI Cervical, Thoracic and Lumbar Spine w/wo Contrast [Nov 15 2018 - final] Impression: There is an expansile osseous lesion most concerning for osseous metastatic disease involving the T10 vertebral body. There is pathologic collapse of the T10 vertebral body with approximately 15-20% loss of height of the T10 vertebral body. There is convexity of the posterior margin of the collapsed T10 vertebral body as well as expansion of the pedicles and posterior elements of the T10 vertebral body which along with a component of epidural thickening and enhancement contributes to partial circumferential effacement of the CSF signal of the subarachnoid space with suspected minimal flattening of the left dorsal lateral margin of the thoracic cord at the T10 level. There is additional abnormal bone marrow signal concerning for osseous metastatic disease involving the right aspect of the T11 vertebral body best appreciated right T11 pedicle, facet, and lamina. There is suspected osseous neoplastic involvement along the medial right 11th rib. There is abnormal bone marrow signal concerning for osseous neoplasm involving the posterior elements of the T9 vertebral body. The remainder of the visualized osseous structures demonstrate diffuse nonspecific inhomogeneous ill-defined diminished bone marrow signal on the T1 weighted images which while nonspecific can be seen with anemia or osteopenia although additional more diffuse infiltrative osseous neoplasm cannot be excluded. There is multilevel spondylosis as described above. There are bilateral pleural effusions right greater than left along with atelectasis and/or infiltrate within the partially imaged posterior lungs bilaterally. There is additional nodular fullness concerning for underlying mass within the partially imaged right lung. Correlation with dedicated chest imaging is recommended. Assessment and Plan: Assessment: Trish Hunt is a 73 year old female former smoker w/ PMHx significant for HTN, Impaired Fasting Glucose, Hyperlipidemia, Peripheral Neuropathy, Hypothyroidism, GERD, Morbid Obesity and Recent Spinal Cord Stimulator Implant who is transferred to [facility] 11/12/18 from [facility] after presenting with intractable progressive back pain with SOB and found on imaging to have a lung mass with adenopathy and suspected spinal metastasis for neurosurgical evaluation and further care. . PLAN: In Shared Visit with Dr. Neena Grullon 1) METASTATIC LUNG MALIGNANCY: Former smoker. Reported SOB and chest pain with deep breath at [place] [facility] presentation 11/11/18. A CT of the Chest showed Occlusion of the right middle bronchus with pleural effusion with suspected spinal metastasis. Pulmonary medicine and oncology were consulted with a Right Thoracentesis via U/S obtained 11/12/18 for 140 ml of fluid. The pleural fluid is reported to be exudative (cloudy, predominant monocytes (87%), TP: 2.5, LDH 500 (serum LDH 437), with culture and cytology pending. MRI of the brain 11/14/18 without lesions. Pulmonology consulted and a Bronchoscopy w/ EBUS today with sampling of right hilar mass and subcarinal lymph node which were both positive for malignant cells, most likely non-small cell lung cancer of origin (based on prelim cytology). Recommend: - follow [place] Pleural C&S and Cytology - Follow bronchoscopy / EBUS cytology on lymph node sampling - consult Oncology in a.m. - PET-CT on 11/17/18 - will need to be NPO except water after midnight / will order 0.8 mg Hydromorphone IV director surface transportation if not on long acting narcotic at time 2) T10 PATHOLOGIC FRACTURE: Likely a metastasis r/t # 1. Presented to [facility] 11/11/18 with intractable progressive back pain radiating around waist in band of 2-3 weeks accompanied by SOB. Due to the pain she had the Spinal Cord Stimulator Implanted in August removed on 10/25/18 without improvement of pain. She has prior disc surgery L4-L5 several years back and has been asymptomatic from it. She denies tingling or numbness, focal weakness of any extremity, bowel incontinence. She does have chronic urinary urge incontinence which has come back after her spinal stimulator was recently removed. A CT Chest, Abdomen and Pelvis at [place] showed a suspected Pathologic fracture of the T10 vertebral body with canal stenosis as well as additional vertebral lesions at T8, T9, and T11 suspicious for additional metastases. An MRI of the T spine was obtained and showed the lesion was not compressing the spine but was however in close proximity to the cord, and therefore she was given Decadron with request for transfer to [facility] for Neurosurgery evaluation. Neurosurgery consulted and did find evidence of cord compression. CT Thoracic and Lumbar Spine without contrast done at Neurosurgery request and some changes of lumbar CT noted as well. At Neurosurgery request, an MRI of the entire spine was done under Anesthesia today with finding c/w earlier testing - await Pathology for # 1 - Physical Therapy consult - Await Neurosurgery review of MRI - surgery, will need to determine prognosis as well as risk stratification 3) BACK PAIN: intractable progressive back pain radiating around waist in band of 2-3 weeks accompanied by SOB. Due to the pain she had the Spinal Cord Stimulator Implanted in August removed on 10/25/18 without improvement of pain. She has prior disc surgery L4-L5 several years back and has been asymptomatic from it. She denies tingling or numbness, focal weakness of any extremity, bowel incontinence. Of note, the pain seems to be in a more lumbar distribution. The Oxycodone did not help her pain, but 0.2 mg IV Hydromorphone helps. She started Morphine instead yesterday which seems to have helped as well, but in pain after sleeping during night at awakening. She required Narcan in PACU today. She is currently somewhat drowsy as well as in pain. - continue Acetaminophen 975 mg by mouth three times a day - continue Morphine 7.5 mg by mouth every 3 hours PRN pain to assess effect with plan to change to Morphine long acting if helpful - Toradol 15 mg IV every 4 hours PRN pain - Hydromorphone 0.2 mg IV every 4 hours PRN breakthrough pain - Physical Therapy consult - [place]-wick to decrease pain associated with frequent toileting 4) HYPOXIA: Has been requiring O2 via nasal cannula. Pleural effusions present on imaging. She had some wheezing yesterday afternoon and uses Albuterol at home at times - oxygen at 2 liters PRN - continuous pulse oximetry tonight post Narcan need post procedure - Albuterol 2.5 mg / 3 ml every 6 hours nebulized 5) CONSTIPATION: r/t medication control for # 3. States take Miralax to assist - reported BM following Fleet enema yesterday - continue Miralax twice a day and PRN - add Bisacodyl suppository daily PRN 6) NAUSEA AND VOMITING: Nurse reports this not related to Morphine, as started prior. Her bowel sounds were hypoactive yesterday morning and later in the afternoon she had some abdominal fullness and belching with emesis observed. A KUB showed a moderate amount of stool with a non-obstructive bowel gas pattern Could be r/t # 3, but concern for development of an ileus due to narcotic administration is a concern. She was given a Fleet enema with improvement of abdominal fullness and no further emesis - continue Ondansetron 4 mg IV every 6 hours PRN 7) SHLOMO: creatinine 1.2 post contrast with baseline 1.0 at [place].. Creatinine 1.0 today - IV NS at 75 ml hour - check renal function panel in a.m. 8) IMPAIRED FASTING GLUCOSE: Denies diagnosis of Diabetes. States was told had elevated blood glucose 20 years ago with Metformin initiated as preventive. 07/2018 Hgb A1C normal. Blood glucose 91 on a.m. labs - hold home Metformin ER - check fasting blood glucose in a.m. 9) HYPOTHYROIDISM: TSH 0.86 - continue home Levothyroxine 50 mcg daily 10) MORBID OBESITY: BMI 43 11) CODE STATUS: Discussed with patient. She presently desires full interventions at arrest, but would not desire prolonged life support - Full code 12) DVT PROPHYLAXIS: - resume Enoxaparin 40 mg subcutaneous twice a day - sequential compression devices. 13) DISCHARGE DISPOSITION: Lives with . No home needs identified at present, but pain is presenting a challenge for ambulation - await PT evaluation. Family at bedside and supportive PCP: Dr. Harjinder Braswell [phone] Urology: Dr. Earnest Herrera Pharmacy: [facility] ([place]) [phone] DME: [employer] Insurer: [employer] Medicare Family: / POA Healthcare - Robbie Hutn [phone] Dtr. / 1st Alt. POA - Annita Sin [phone] / [phone] Dtr. / 2nd Alt. POA - Dionne Morse Chung [phone] Signature/Cosignature/Attestation: Provider/Team Contact Info-Pager Miriam Carlos [facility] # [id number] Comments/ Additional Findings please see my clinical event note Electronic Signatures: Nessa Carlos (ALIGNMENT SPECIALIST-GRIEVANCE MANAGER) (Signed 15-Nov-2018 21:24) Authored: Service, Subjective Data, Objective Data, Assessment and Plan, Signature/Cosignature/Attestation Neena Grullon) (Signed 21-Nov-2018 08:25) Authored: Signature/Cosignature/Attestation Co-Signer: Assessment and Plan, Signature/Cosignature/Attestation Last Updated: 21-Nov-2018 08:25 by Neena Grullon) CLINICAL EVENT NOTE Observed: 11/15/2018 Status: UNK Source: [facility] 6:23 PM HOSPITALS REPOSITORY Event: Details: patient was seen after she came back from the procedure, they were xiomy to do mri and [facility] , looks like it is non small cell cancer, will infrom neuro surgery about the mri . also will consult onch in am , she has to be given narcan after anasthesia to wake her up nad when I saw her she has pain in the back . she is oa to self and family and still was little loopy due to anesthesia , . she denies any new weakness. tingling or numbness Patient is mo AAf laying on the bed without any acute distress Lungs clear to auscultation bilaterally S1, S2 heard rate and rhythm regular Abdomen is soft nondistended nontender Neurologically, alert, awake, moving all 4 extremities. bue , ble 4/5 , no drift , cranial nerve II to XII intact Appropriate mood and affect No pitting edema Skin no rashes 73 year old lady with H/O HTN, DMt2 with morbid obesity, hypothyroidism, HLD, presenting as transfer from [facility] after initially presenting there with subacute low back pain with imaging at OSH revealing R hilar mass with adenopathy and multiple spinal mets and T10 bipedicular lesion Metastatic Ca -CT chest/abd/pelvis, mri reports from OSH reviewed. Request Radiology for read and uploading images in PACs - PET Scan staging pending , MRI brain for staging -ve , ct l and thorasic spine shows compression at t10 , called neurosurgery and they are aware , as per them ordered a level 2 mri c , l , thorasic spine and they want a tissue diagnosis . bronch done and it is possible non small cell as per verbal report , mri done and will let neurosurgery looks at it . No steroids as of yet - will consult oncology in am - F/U pleural fluid cytology from OSH - back pain , Tylenol 975mg Q8hrly scheduled, she was sleepy after the anasthesia , will use ketrolac for pain and if require hydromorphone for break through . will have to put her on tele and continous pulse ox . #HTN: Cont HCTZ Hold Losartan in the setting of SHLOMO #DM Hold metformin Mild sliding scale HBA1c requested #Hypothyroidism Cont. Synthroid. #HLD Lipitor continued #Renal: Cr 1.2, baseline 0.9 - improved , encourage oral intake , Repeat RFP mid morning draw DVT: SCDs, SQ Heparin, hold for biopsy tomorrow. Full Code will resume these schedule meds 1. Acetaminophen: 975 mg Oral three times a day 2. Enoxaparin SubCutaneous: 40 mg SubCutaneous Every 12 Hours 3. hydroCHLOROthiazide: 12.5 mg Oral Daily 4. Levothyroxine: 50 microgram(s) Oral Daily 5. Multivitamin with Minerals: 1 tablet(s) Oral Daily 6. Polyethylene Glycol: 17 gram(s) Oral 2 Times a Day 7. Simvastatin: 20 mg Oral At Bedtime PRN Medications 1. Bisacodyl Rectal: 10 mg Rectal Daily 2. HYDROmorphone Injectable: 0.2 mg IntraVenous Push Every 4 Hours 3. Polyethylene Glycol: 17 gram(s) Oral Daily 4. ketrolac 15 iv every 8 hours Electronic Signatures: Neena Grullon) (Signed 15-Nov-2018 18:28) Authored: Event Last Updated: 15-Nov-2018 18:28 by Neena Grullon) DAILY PROGRESS Observed: 11/15/2018 Status: COMPLETED Source: UNIVERSITY NOTE-PULMONOLOGY 6:06 PM HOSPITALS REPOSITORY Service: Pulmonology Subjective Data: TRISH HUNT is a 73 year old Female who is Hospital Day # 4. Additional Information: Patient complained of back pain on minimal movement. Denied any other complaints. Objective Data: Objective Information: T PRBPSpO2 [id number]/8396% Date/Time11/15 17: 17: 17: 17: 17:56 Range(36.6C - 37.1C ) (81 - 95 ) (17 - 21 ) (107 - 153 )/ (67 - 83 ) (94% - 100% ) Highest temp of 37.1 C was recorded at 11/14 19:17 Pain reported at 11/14 21:30: 7 Pain reported at 11/15 17:15: 7 Physical Exam: Constitutional: alert, in NAD on NC, pleasant, obese Eyes: no scleral icterus ENMT: clear OP Head/Neck: No JVD Respiratory/Thorax: diminished air entry BL, no crackles or wheezes Cardiovascular: S1 and S2 Extremities: no pedal edema Neurological: no focal deficits, moves all four limbs independently Lymphatic: No significant lymphadenopathy Psychological: Appropriate mood and behavior Skin: dry no rash Recent Lab Results: Results: I have reviewed these laboratory results: Complete Blood Count 15-Nov-2018 05:35:00 ResultValue White Blood Cell Count 7.2 Nucleated Erythrocyte Count 0.0 Red Blood Cell Count 3.98 L HGB 12.3 HCT 40.7 MCV 102 H MCHC 30.2 L PLT 255 RDW-CV 13.2 Renal Function Panel 15-Nov-2018 05:35:00 ResultValue Glucose, Serum 91 NA 142 K 4.0 CL 106 Bicarbonate, Serum 28 Anion Gap, Serum 12 BUN 27 H CREAT 0.96 GFR-Non 57 A GFR- 69 Calcium, Serum 8.7 Phosphorus, Serum 5.9 H ALB 3.1 L Radiology Results: Results: Impression: There is an expansile osseous lesion most concerning for osseous metastatic disease involving the T10 vertebral body. There is pathologic collapse of the T10 vertebral body with approximately 15-20% loss of height of the T10 vertebral body. There is convexity of the posterior margin of the collapsed T10 vertebral body as well as expansion of the pedicles and posterior elements of the T10 vertebral body which along with a component of epidural thickening and enhancement contributes to partial circumferential effacement of the CSF signal of the subarachnoid space with suspected minimal flattening of the left dorsal lateral margin of the thoracic cord at the T10 level. There is additional abnormal bone marrow signal concerning for osseous metastatic disease involving the right aspect of the T11 vertebral body best appreciated right T11 pedicle, facet, and lamina. There is suspected osseous neoplastic involvement along the medial right 11th rib. There is abnormal bone marrow signal concerning for osseous neoplasm involving the posterior elements of the T9 vertebral body. The remainder of the visualized osseous structures demonstrate diffuse nonspecific inhomogeneous ill-defined diminished bone marrow signal on the T1 weighted images which while nonspecific can be seen with anemia or osteopenia although additional more diffuse infiltrative osseous neoplasm cannot be excluded. There is multilevel spondylosis as described above. There are bilateral pleural effusions right greater than left along with atelectasis and/or infiltrate within the partially imaged posterior lungs bilaterally. There is additional nodular fullness concerning for underlying mass within the partially imaged right lung. Correlation with dedicated chest imaging is recommended. The study was interpreted at [facility] [place]. MRI Cervical w/wo Contrast [Nov 15 2018 3:32PM] Assessment and Plan: Assessment: 73 year old female with new onset back pain presenting to OSH, found to have spinal lesions, impending cord compression at T10 (by imaging) and R hilar mas with mediastinal adenopathy. Patient underwent bronchoscopy with EBUS and sampling of right hilar mass and subcarinal lymph node which were both positive for malignant cells, most likely non-small cell lung cancer of origin (based on prelim cytology). Problems: 1. Lung mass 2. Mediastinal/hilar adenopathy 3. Metastatic Non-small cell lung cancer 4. Spinal metastasis Recommend: - Awaiting final cytology on lymph node sampling - Spinal metastasis management per primary and neurosurgery team - Suggest medical oncology and radiation oncology consult - Pain control per primary service - Will continue to follow Thank you for allowing our service to participate in the patient's care, and please feel free to page at #[phone] for any further questions. Signature/Cosignature/Attestation: Attending AttestationI saw and evaluated the patient. I personally obtained the almonte and critical portions of the history and physical exam or was physically present for almonte and critical portions performed by the resident/fellow. I reviewed the resident/fellows documentation and discussed the patient with the resident/fellow. I agree with the resident/fellows medical decision making as documented in the residents note. I personally evaluated the patient (as noted in the above attestation) on 15-Nov-2018 Electronic Signatures: Israel Mensah (Fellow)) (Signed 15-Nov-2018 18:13) Authored: Service, Subjective Data, Objective Data, Assessment and Plan, Signature/Cosignature/Attestation Jane Lewis) (Signed 03-Dec-2018 22:29) Authored: Signature/Cosignature/Attestation Co-Signer: Service, Subjective Data, Objective Data, Assessment and Plan, Signature/Cosignature/Attestation Last Updated: 03-Dec-2018 22:29 by Jane Lewis) GLUCOSE-POCT Collected: 11/15/2018 Status: F Source: [place] 3:26 PM HOSPITALS REPOSITORY TYPE CODE TESTS RESULT OUT OF RANGE REFERENCE UNITS LAB GLUP(LOINC) 74 - 99 mg/dL High 118 GLUCOSE-POCT Performed By: #### GLUPO #### [facility] [id number] [place] [address] NR MR L-SPINE WO/W Observed: 11/15/2018 Status: F Source: [place] CONTRAST 2:22 PM HOSPITALS REPOSITORY Patient Name: TRISH HUNT STUDY: NR MR CERVICAL WO/W CONTRAST; NR MR L-SPINE WO/W CONTRAST; NR MR T-SPINE WO/W; 11/15/2018 2:22 pm INDICATION: Signs/Symptoms: highly suspect spinal metastasis of presumed lung CA - request of Neurosurgery for treatment planning, Lie Flat: Yes, Pre Med: Yes, BMI: Yes, BiPAP: No, O2: No. COMPARISON: None. ACCESSION NUMBER(S): [id number]; [id number]; [id number] ORDERING CLINICIAN: NEENA GRULLON TECHNIQUE: Sagittal STIR, sagittal T2, sagittal T1, axial T2, axial T1, as well as post gadolinium sagittal axial T1 weighted MRI images through the cervical, thoracic, and lumbar spine were obtained. The patient received 20 mL of MultiHance gadolinium intravenously. FINDINGS: There is an expansile osseous lesion most concerning for osseous metastatic disease involving the T10 vertebral body. There is pathologic collapse of the T10 vertebral body with approximately 15-20% loss of height of the T10 vertebral body. There is convexity of the posterior margin of the collapsed T10 vertebral body as well as expansion of the pedicles and posterior elements of the T10 vertebral body which along with a component of epidural thickening and enhancement contributes to partial circumferential effacement of the CSF signal of the subarachnoid space with suspected minimal flattening of the left dorsal lateral margin of the thoracic cord at the T10 level. There is additional abnormal bone marrow signal concerning for osseous metastatic disease involving the right aspect of the T11 vertebral body best appreciated right T11 pedicle, facet, and lamina. There is suspected osseous neoplastic involvement along the medial right 11th rib. There is abnormal bone marrow signal concerning for osseous neoplasm involving the posterior elements of the T9 vertebral body. The remainder of the visualized osseous structures demonstrate diffuse nonspecific inhomogeneous ill-defined diminished bone marrow signal on the T1 weighted images which while nonspecific can be seen with anemia or osteopenia although additional more diffuse infiltrative osseous neoplasm cannot be excluded. There are degenerative signal changes noted along endplates within the cervical region most pronounced at the C4/5, C5/6, and C6/7 levels. The visualized spinal cord demonstrates no signal abnormality within it. At the C2/3 level, right-sided degenerative facet changes contribute to mild encroachment upon the right neural foramen. There is no significant central canal or left-sided neural foraminal narrowing. At the C3/4 level, there is a mild posterior disc osteophyte complex contribute to mild central canal narrowing. There is no significant neural foraminal narrowing. At the C4/5 level, there is a posterior disc osteophyte complex contributing to near-complete effacement of ventral subarachnoid space. There is mild flattening the ventral cervical cord which drapes over the disc/osteophyte complex. Right-sided degenerative facet changes contribute to encroachment upon the right neural foramen. At the C5/6 level, there is a posterior disc osteophyte complex contributing to near-complete effacement of ventral subarachnoid space. There is mild flattening the ventral cervical cord which is draped over the disc/osteophyte complex. There are degenerative uncovertebral joint changes and degenerative facet changes contributing to encroachment upon the neural foramina bilaterally. At the C6/7 level, there is a posterior disc osteophyte complex contributing to partial effacement of ventral and dorsal subarachnoid space without significant cervical cord deformity. At the C7/T1 level, there is a posterior disc osteophyte complex and degenerative facet changes contributing to mild central canal narrowing. At the T1/2 level, there is no significant central canal narrowing. At the T2/3 level, there is a mild right-sided disc and/or disc osteophyte complex without significant central canal narrowing. At the T3/4 level, there is no significant central canal narrowing. At the T4/5 level, there is no significant central canal narrowing. At the T5/6 level, there is no significant central canal narrowing. The T6/7 level, there is no significant central canal narrowing. At the T7/8 level, there is a left-sided disc and/or disc osteophyte complex contribute to partial effacement of the left ventral subarachnoid space with mild overall central canal narrowing. At the T8/9 level, there is no significant central canal narrowing. At the T9/10 level, expansile osseous neoplasm contributes to partial effacement of the subarachnoid space without significant thoracic cord deformity. There is enhancing neoplasm encroaching upon the neural foramina bilaterally. At the T10 level, there are findings as described above. At the T10/11 level, there is mild overall central canal narrowing. There is enhancing neoplasm encroaching upon the neural foramen bilaterally right greater than left. At the T11/12 level, there are degenerative facet changes without significant central canal narrowing. At the T12/L1 level, there are degenerative facet changes without significant central canal narrowing. At the L1/2 level, there is a posterior disc bulge along with degenerative facet changes and ligamentum flavum hypertrophy contributing to mild overall central canal narrowing. There is no significant neural foraminal narrowing. At the L2/3 level, there is a posterior disc bulge, degenerative facet changes, and ligamentum flavum hypertrophy which contributes to mild central canal narrowing. There is mild encroachment upon the inferior recess of the right neural foramen. There is no significant left-sided neural foraminal narrowing. At the L3/4 level, there is a mild posterior disc bulge and degenerative facet changes contribute to mild central canal narrowing. There is mild encroachment upon the neural foramen bilaterally. At the L4/5 level, there is a posterior disc bulge along with degenerative facet changes and ligamentum flavum hypertrophy contributing to moderate central canal narrowing. There is [id number] encroachment upon the neural foramina bilaterally. At the L5/S1 level, there is posterior osteophytic spurring and posterior disc bulge along with degenerative facet changes contributing to mild overall central canal narrowing. There is mild encroachment upon the neural foramen bilaterally. There are bilateral pleural effusions right greater than left along with atelectasis and/or infiltrate within the partially imaged posterior lungs bilaterally. There is additional nodular fullness concerning for underlying mass within the partially imaged right lung. Correlation with dedicated chest imaging is recommended. There is a suspected fibroid within the partially imaged uterus. IMPRESSION: There is an expansile osseous lesion most concerning for osseous metastatic disease involving the T10 vertebral body. There is pathologic collapse of the T10 vertebral body with approximately 15-20% loss of height of the T10 vertebral body. There is convexity of the posterior margin of the collapsed T10 vertebral body as well as expansion of the pedicles and posterior elements of the T10 vertebral body which along with a component of epidural thickening and enhancement contributes to partial circumferential effacement of the CSF signal of the subarachnoid space with suspected minimal flattening of the left dorsal lateral margin of the thoracic cord at the T10 level. There is additional abnormal bone marrow signal concerning for osseous metastatic disease involving the right aspect of the T11 vertebral body best appreciated right T11 pedicle, facet, and lamina. There is suspected osseous neoplastic involvement along the medial right 11th rib. There is abnormal bone marrow signal concerning for osseous neoplasm involving the posterior elements of the T9 vertebral body. The remainder of the visualized osseous structures demonstrate diffuse nonspecific inhomogeneous ill-defined diminished bone marrow signal on the T1 weighted images which while nonspecific can be seen with anemia or osteopenia although additional more diffuse infiltrative osseous neoplasm cannot be excluded. There is multilevel spondylosis as described above. There are bilateral pleural effusions right greater than left along with atelectasis and/or infiltrate within the partially imaged posterior lungs bilaterally. There is additional nodular fullness concerning for underlying mass within the partially imaged right lung. Correlation with dedicated chest imaging is recommended. The study was interpreted at [facility], [place]. Electronically signed by: ADRIANA DIETZ MD NR MR T-SPINE WO/W Observed: 11/15/2018 Status: F Source: [place] 2:22 PM HOSPITALS REPOSITORY Patient Name: TRISH HUNT STUDY: NR MR CERVICAL WO/W CONTRAST; NR MR L-SPINE WO/W CONTRAST; NR MR T-SPINE WO/W; 11/15/2018 2:22 pm INDICATION: Signs/Symptoms: highly suspect spinal metastasis of presumed lung CA - request of Neurosurgery for treatment planning, Lie Flat: Yes, Pre Med: Yes, BMI: Yes, BiPAP: No, O2: No. COMPARISON: None. ACCESSION NUMBER(S): [id number]; [id number]; [id number] ORDERING CLINICIAN: NEENA GRULLON TECHNIQUE: Sagittal STIR, sagittal T2, sagittal T1, axial T2, axial T1, as well as post gadolinium sagittal axial T1 weighted MRI images through the cervical, thoracic, and lumbar spine were obtained. The patient received 20 mL of MultiHance gadolinium intravenously. FINDINGS: There is an expansile osseous lesion most concerning for osseous metastatic disease involving the T10 vertebral body. There is pathologic collapse of the T10 vertebral body with approximately 15-20% loss of height of the T10 vertebral body. There is convexity of the posterior margin of the collapsed T10 vertebral body as well as expansion of the pedicles and posterior elements of the T10 vertebral body which along with a component of epidural thickening and enhancement contributes to partial circumferential effacement of the CSF signal of the subarachnoid space with suspected minimal flattening of the left dorsal lateral margin of the thoracic cord at the T10 level. There is additional abnormal bone marrow signal concerning for osseous metastatic disease involving the right aspect of the T11 vertebral body best appreciated right T11 pedicle, facet, and lamina. There is suspected osseous neoplastic involvement along the medial right 11th rib. There is abnormal bone marrow signal concerning for osseous neoplasm involving the posterior elements of the T9 vertebral body. The remainder of the visualized osseous structures demonstrate diffuse nonspecific inhomogeneous ill-defined diminished bone marrow signal on the T1 weighted images which while nonspecific can be seen with anemia or osteopenia although additional more diffuse infiltrative osseous neoplasm cannot be excluded. There are degenerative signal changes noted along endplates within the cervical region most pronounced at the C4/5, C5/6, and C6/7 levels. The visualized spinal cord demonstrates no signal abnormality within it. At the C2/3 level, right-sided degenerative facet changes contribute to mild encroachment upon the right neural foramen. There is no significant central canal or left-sided neural foraminal narrowing. At the C3/4 level, there is a mild posterior disc osteophyte complex contribute to mild central canal narrowing. There is no significant neural foraminal narrowing. At the C4/5 level, there is a posterior disc osteophyte complex contributing to near-complete effacement of ventral subarachnoid space. There is mild flattening the ventral cervical cord which drapes over the disc/osteophyte complex. Right-sided degenerative facet changes contribute to encroachment upon the right neural foramen. At the C5/6 level, there is a posterior disc osteophyte complex contributing to near-complete effacement of ventral subarachnoid space. There is mild flattening the ventral cervical cord which is draped over the disc/osteophyte complex. There are degenerative uncovertebral joint changes and degenerative facet changes contributing to encroachment upon the neural foramina bilaterally. At the C6/7 level, there is a posterior disc osteophyte complex contributing to partial effacement of ventral and dorsal subarachnoid space without significant cervical cord deformity. At the C7/T1 level, there is a posterior disc osteophyte complex and degenerative facet changes contributing to mild central canal narrowing. At the T1/2 level, there is no significant central canal narrowing. At the T2/3 level, there is a mild right-sided disc and/or disc osteophyte complex without significant central canal narrowing. At the T3/4 level, there is no significant central canal narrowing. At the T4/5 level, there is no significant central canal narrowing. At the T5/6 level, there is no significant central canal narrowing. The T6/7 level, there is no significant central canal narrowing. At the T7/8 level, there is a left-sided disc and/or disc osteophyte complex contribute to partial effacement of the left ventral subarachnoid space with mild overall central canal narrowing. At the T8/9 level, there is no significant central canal narrowing. At the T9/10 level, expansile osseous neoplasm contributes to partial effacement of the subarachnoid space without significant thoracic cord deformity. There is enhancing neoplasm encroaching upon the neural foramina bilaterally. At the T10 level, there are findings as described above. At the T10/11 level, there is mild overall central canal narrowing. There is enhancing neoplasm encroaching upon the neural foramen bilaterally right greater than left. At the T11/12 level, there are degenerative facet changes without significant central canal narrowing. At the T12/L1 level, there are degenerative facet changes without significant central canal narrowing. At the L1/2 level, there is a posterior disc bulge along with degenerative facet changes and ligamentum flavum hypertrophy contributing to mild overall central canal narrowing. There is no significant neural foraminal narrowing. At the L2/3 level, there is a posterior disc bulge, degenerative facet changes, and ligamentum flavum hypertrophy which contributes to mild central canal narrowing. There is mild encroachment upon the inferior recess of the right neural foramen. There is no significant left-sided neural foraminal narrowing. At the L3/4 level, there is a mild posterior disc bulge and degenerative facet changes contribute to mild central canal narrowing. There is mild encroachment upon the neural foramen bilaterally. At the L4/5 level, there is a posterior disc bulge along with degenerative facet changes and ligamentum flavum hypertrophy contributing to moderate central canal narrowing. There is [id number] encroachment upon the neural foramina bilaterally. At the L5/S1 level, there is posterior osteophytic spurring and posterior disc bulge along with degenerative facet changes contributing to mild overall central canal narrowing. There is mild encroachment upon the neural foramen bilaterally. There are bilateral pleural effusions right greater than left along with atelectasis and/or infiltrate within the partially imaged posterior lungs bilaterally. There is additional nodular fullness concerning for underlying mass within the partially imaged right lung. Correlation with dedicated chest imaging is recommended. There is a suspected fibroid within the partially imaged uterus. IMPRESSION: There is an expansile osseous lesion most concerning for osseous metastatic disease involving the T10 vertebral body. There is pathologic collapse of the T10 vertebral body with approximately 15-20% loss of height of the T10 vertebral body. There is convexity of the posterior margin of the collapsed T10 vertebral body as well as expansion of the pedicles and posterior elements of the T10 vertebral body which along with a component of epidural thickening and enhancement contributes to partial circumferential effacement of the CSF signal of the subarachnoid space with suspected minimal flattening of the left dorsal lateral margin of the thoracic cord at the T10 level. There is additional abnormal bone marrow signal concerning for osseous metastatic disease involving the right aspect of the T11 vertebral body best appreciated right T11 pedicle, facet, and lamina. There is suspected osseous neoplastic involvement along the medial right 11th rib. There is abnormal bone marrow signal concerning for osseous neoplasm involving the posterior elements of the T9 vertebral body. The remainder of the visualized osseous structures demonstrate diffuse nonspecific inhomogeneous ill-defined diminished bone marrow signal on the T1 weighted images which while nonspecific can be seen with anemia or osteopenia although additional more diffuse infiltrative osseous neoplasm cannot be excluded. There is multilevel spondylosis as described above. There are bilateral pleural effusions right greater than left along with atelectasis and/or infiltrate within the partially imaged posterior lungs bilaterally. There is additional nodular fullness concerning for underlying mass within the partially imaged right lung. Correlation with dedicated chest imaging is recommended. The study was interpreted at [facility], [place]. 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 COMPARISON: None. ACCESSION NUMBER(S): [id number]; [id number]; [id number] ORDERING CLINICIAN: NEENA GRULLON TECHNIQUE: Sagittal STIR, sagittal T2, sagittal T1, axial T2, axial T1, as well as post gadolinium sagittal axial T1 weighted MRI images through the cervical, thoracic, and lumbar spine were obtained. The patient received 20 mL of MultiHance gadolinium intravenously. FINDINGS: There is an expansile osseous lesion most concerning for osseous metastatic disease involving the T10 vertebral body. There is pathologic collapse of the T10 vertebral body with approximately 15-20% loss of height of the T10 vertebral body. There is convexity of the posterior margin of the collapsed T10 vertebral body as well as expansion of the pedicles and posterior elements of the T10 vertebral body which along with a component of epidural thickening and enhancement contributes to partial circumferential effacement of the CSF signal of the subarachnoid space with suspected minimal flattening of the left dorsal lateral margin of the thoracic cord at the T10 level. There is additional abnormal bone marrow signal concerning for osseous metastatic disease involving the right aspect of the T11 vertebral body best appreciated right T11 pedicle, facet, and lamina. There is suspected osseous neoplastic involvement along the medial right 11th rib. There is abnormal bone marrow signal concerning for osseous neoplasm involving the posterior elements of the T9 vertebral body. The remainder of the visualized osseous structures demonstrate diffuse nonspecific inhomogeneous ill-defined diminished bone marrow signal on the T1 weighted images which while nonspecific can be seen with anemia or osteopenia although additional more diffuse infiltrative osseous neoplasm cannot be excluded. There are degenerative signal changes noted along endplates within the cervical region most pronounced at the C4/5, C5/6, and C6/7 levels. The visualized spinal cord demonstrates no signal abnormality within it. At the C2/3 level, right-sided degenerative facet changes contribute to mild encroachment upon the right neural foramen. There is no significant central canal or left-sided neural foraminal narrowing. At the C3/4 level, there is a mild posterior disc osteophyte complex contribute to mild central canal narrowing. There is no significant neural foraminal narrowing. At the C4/5 level, there is a posterior disc osteophyte complex contributing to near-complete effacement of ventral subarachnoid space. There is mild flattening the ventral cervical cord which drapes over the disc/osteophyte complex. Right-sided degenerative facet changes contribute to encroachment upon the right neural foramen. At the C5/6 level, there is a posterior disc osteophyte complex contributing to near-complete effacement of ventral subarachnoid space. There is mild flattening the ventral cervical cord which is draped over the disc/osteophyte complex. There are degenerative uncovertebral joint changes and degenerative facet changes contributing to encroachment upon the neural foramina bilaterally. At the C6/7 level, there is a posterior disc osteophyte complex contributing to partial effacement of ventral and dorsal subarachnoid space without significant cervical cord deformity. At the C7/T1 level, there is a posterior disc osteophyte complex and degenerative facet changes contributing to mild central canal narrowing. At the T1/2 level, there is no significant central canal narrowing. At the T2/3 level, there is a mild right-sided disc and/or disc osteophyte complex without significant central canal narrowing. At the T3/4 level, there is no significant central canal narrowing. At the T4/5 level, there is no significant central canal narrowing. At the T5/6 level, there is no significant central canal narrowing. The T6/7 level, there is no significant central canal narrowing. At the T7/8 level, there is a left-sided disc and/or disc osteophyte complex contribute to partial effacement of the left ventral subarachnoid space with mild overall central canal narrowing. At the T8/9 level, there is no significant central canal narrowing. At the T9/10 level, expansile osseous neoplasm contributes to partial effacement of the subarachnoid space without significant thoracic cord deformity. There is enhancing neoplasm encroaching upon the neural foramina bilaterally. At the T10 level, there are findings as described above. At the T10/11 level, there is mild overall central canal narrowing. There is enhancing neoplasm encroaching upon the neural foramen bilaterally right greater than left. At the T11/12 level, there are degenerative facet changes without significant central canal narrowing. At the T12/L1 level, there are degenerative facet changes without significant central canal narrowing. At the L1/2 level, there is a posterior disc bulge along with degenerative facet changes and ligamentum flavum hypertrophy contributing to mild overall central canal narrowing. There is no significant neural foraminal narrowing. At the L2/3 level, there is a posterior disc bulge, degenerative facet changes, and ligamentum flavum hypertrophy which contributes to mild central canal narrowing. There is mild encroachment upon the inferior recess of the right neural foramen. There is no significant left-sided neural foraminal narrowing. At the L3/4 level, there is a mild posterior disc bulge and degenerative facet changes contribute to mild central canal narrowing. There is mild encroachment upon the neural foramen bilaterally. At the L4/5 level, there is a posterior disc bulge along with degenerative facet changes and ligamentum flavum hypertrophy contributing to moderate central canal narrowing. There is [id number] encroachment upon the neural foramina bilaterally. At the L5/S1 level, there is posterior osteophytic spurring and posterior disc bulge along with degenerative facet changes contributing to mild overall central canal narrowing. There is mild encroachment upon the neural foramen bilaterally. There are bilateral pleural effusions right greater than left along with atelectasis and/or infiltrate within the partially imaged posterior lungs bilaterally. There is additional nodular fullness concerning for underlying mass within the partially imaged right lung. Correlation with dedicated chest imaging is recommended. There is a suspected fibroid within the partially imaged uterus. IMPRESSION: There is an expansile osseous lesion most concerning for osseous metastatic disease involving the T10 vertebral body. There is pathologic collapse of the T10 vertebral body with approximately 15-20% loss of height of the T10 vertebral body. There is convexity of the posterior margin of the collapsed T10 vertebral body as well as expansion of the pedicles and posterior elements of the T10 vertebral body which along with a component of epidural thickening and enhancement contributes to partial circumferential effacement of the CSF signal of the subarachnoid space with suspected minimal flattening of the left dorsal lateral margin of the thoracic cord at the T10 level. There is additional abnormal bone marrow signal concerning for osseous metastatic disease involving the right aspect of the T11 vertebral body best appreciated right T11 pedicle, facet, and lamina. There is suspected osseous neoplastic involvement along the medial right 11th rib. There is abnormal bone marrow signal concerning for osseous neoplasm involving the posterior elements of the T9 vertebral body. The remainder of the visualized osseous structures demonstrate diffuse nonspecific inhomogeneous ill-defined diminished bone marrow signal on the T1 weighted images which while nonspecific can be seen with anemia or osteopenia although additional more diffuse infiltrative osseous neoplasm cannot be excluded. There is multilevel spondylosis as described above. There are bilateral pleural effusions right greater than left along with atelectasis and/or infiltrate within the partially imaged posterior lungs bilaterally. There is additional nodular fullness concerning for underlying mass within the partially imaged right lung. Correlation with dedicated chest imaging is recommended. The study was interpreted at [facility] [place]. Electronically signed by: ADRIANA DIETZ MD DAILY PROGRESS Observed: 11/15/2018 Status: COMPLETED Source: [facility]IVERS[facility] NOTE-NEUROSURGERY 5:58 AM HOSPITALS REPOSITORY Service: Neurosurgery Subjective Data: TRISH HUNT is a 73 year old Female who is Hospital Day # 4. Objective Data: Objective Information: T PRBPSpO2 [id number]% Date/Time11/15 3: 3: 3: 3: 3:41 Range(36.4C - 37.1C ) (80 - 93 ) (17 - 21 ) (110 - 148 )/ (70 - 83 ) (94% - 100% ) Highest temp of 37.1 C was recorded at 11/14 19:17 Pain reported at 11/14 21:30: 7 Pain reported at 11/15 3:34: 7 Physical Exam: Neurological: AAOx3 (name, place, and year) PERRL, EOMI, VFF, CNII-XII intact Cooperative, and follows commands 5/5 in all muscle groups without a drift Sensation grossly intact to light touch No Adams, Babinski, or clonus Assessment and Plan: Assessment: Assessment: 73F with a history of HTN, HLD, DM, and a newly diagnosed hilar mass with b/l pleural effusions s/p pleuocentesis. I have personally reviewed the images, which include a CT, which shows a T10 bipedicular lesion c/f spinal mets, patient with nonfocal neurologic exam except for mechanical back pain. Pain well-controlled this AM. No acute events overnight. Plan - MRI spine under anesthesia -f/u path Abiel Markham MD Resident Physician Department of Neurological Surgery [facility] [email or web address] Neurosurgery Pager: [phone] Personal Pager: [phone] Signature/Cosignature/Attestation: Attending AttestationI reviewed the resident/fellows documentation and discussed the patient with the resident/fellow. I agree with the resident/fellows medical decision making as documented in the residents note. Electronic Signatures: Huber Tamayo) (Signed 16-Nov-2018 09:18) Authored: Assessment and Plan, Signature/Cosignature/Attestation Co-Signer: Service, Subjective Data, Objective Data, Assessment and Plan, Signature/Cosignature/Attestation Abiel Markham (Resident)) (Signed 15-Nov-2018 06:00) Authored: Service, Subjective Data, Objective Data, Assessment and Plan, Signature/Cosignature/Attestation Last Updated: 16-Nov-2018 09:18 by Huber Tamayo) RENAL FUNCTION PANEL Collected: 11/15/2018 Status: F Source: [place] 5:35 AM HOSPITALS REPOSITORY TYPE CODE TESTS RESULT OUT OF RANGE REFERENCE UNITS LAB GLU(LOINC) 74 - 99 mg/dL GLUCOSE 91 LAB SOD(LOINC) 136 - 145 mmol/L SODIUM 142 LAB K(LOINC) 3.5 - 5.3 mmol/L POTASSIUM 4.0 LAB CHLOR(LOIN 98 - 107 mmol/L C) CHLORIDE 106 LAB BIC(LOINC) 21 - 32 mmol/L BICARBONATE 28 LAB ANGAP(LOIN 10 - 20 mmol/L C) ANION GAP 12 LAB UREA(LOINC 6 - 23 mg/dL ) High UREA NITROGEN 27 LAB CREA(LOINC 0.50 - 1.05 mg/dL ) CREATININE 0.96 LAB GFRFN(LOIN >60 mL/min/1.7 C) 3m2 GFR-NON Abnormal AM. 57 LAB GFRAA(LOIN >60 mL/min/1.7 C) 3m2 GFR- AM. 69 Result Comment: CALCULATIONS OF ESTIMATED GFR ARE PERFORMED USING THE MDRD STUDY EQUATION FOR THE IDMS-TRACEABLE CREATININE METHODS. CLIN CHEM 2007;53:766-72 LAB CA(LOINC) 8.6 - 10.6 mg/dL CALCIUM 8.7 LAB PHOS(LOINC) 2.5 - 4.9 mg/dL PHOSPHORUS High 5.9 Result Comment: The performance characteristics of phosphorus testing in heparinized plasma have been validated by the individual laboratory site where testing is performed. Testing on heparinized plasma is not approved by the FDA; however, such approval is not necessary. LAB ALB(LOINC) 3.4 - 5.0 g/dL Low ALBUMIN 3.1 Performed By: #### RENAL #### [facility] [id number] [place] [address] CBC Collected: 11/15/2018 Status: F Source: [place] 5:35 AM HOSPITALS REPOSITORY TYPE CODE TESTS RESULT OUT OF REFERENCE UNITS RANGE LAB WBCR(LOINC 4.4 - 11.3 x10E9/L ) WBC 7.2 LAB NRBC(LOINC 0.0-0.0 /100 WBC ) NUCLEATED RBC 0.0 LAB RBCCT(LOIN 4.00 - 5.20 x10E12/L C) Low RBC 3.98 LAB HGB(LOINC) 12.0 - 16.0 g/dL HGB 12.3 LAB HCT(LOINC) 36.0 - 46.0 % HCT 40.7 LAB MCV(LOINC) 80 - 100 fL MCV High 102 LAB MCHC2(LOIN 32.0 - 36.0 g/dL C) Low MCHC 30.2 LAB PLTCT(LOIN 150 - 450 x10E9/L C) PLT 255 LAB RDWCV(LOIN 11.5 - 14.5 % C) RDW-CV 13.2 Performed By: #### CBC #### [facility] [id number] [place] [address] [facility] CYTOLOGY Observed: 11/15/2018 Status: F Source: [place] 12:00 AM [facility] REPOSITORY ADDENDUM Patient Name TRISH HUNT Date of Procedure: 11/15/2018 Date Reported: 11/18/2018 Date Received: 11/15/2018 Date of / Sex 1945 (Age: 73) / F Race: UNKNOWN* Submitting Physician: JULIA MAHER MD Attending Physician: SHANE RINCON MD Other External # FINAL CYTOLOGICAL INTERPRETATION A. FINE NEEDLE ASPIRATION 11 RS LYMPH NODE, CYTOLOGY AND CELL BLOCK: -- MALIGNANT CELLS DERIVED FROM ADENOCARCINOMA. B. FINE NEEDLE ASPIRATION 7 LYMPH NODE, CYTOLOGY AND CELL BLOCK: -- MALIGNANT CELLS DERIVED FROM ADENOCARCINOMA, SEE NOTE. Note: Immunostains performed on the cell block demonstrate tumor cells that show positive immunostaining for TTF1, and no immunostaining for p40. The morphology and immunoprofile of the tumor are consistent with origin of tumor cells from lung adenocarcinoma. The microscopic findings were reviewed in conjunction with cytopathology fellow, Peace Butt M.D. Electronically Signed Out By NEHEMIAH PASTOR MD By the signature on this report, the individual or group listed as making the Final Interpretation/Diagnosis certifies that they have reviewed this case. Slide(s) initially screened by a Offal Separator at [place] [address] Rapid Evaluation Fine Needle Aspiration Immediate Read Result: A,B: Malignant cells derived from non-small cell carcinoma. Pathologist: ADRIANA ZAPATA M.D. Date: 11/15/2018 Clinical History RIGHT HILAR MASS. MEDIESTINAL LYMPHODENOPATHY Source of Specimen A: FINE NEEDLE ASPIRATION 11 RS LYMPH NODE B: FINE NEEDLE ASPIRATION 7 LYMPH NODE Specimen Submitted as: A: FINE NEEDLE ASPIRATION 11 RS LYMPH NODE pap stain non-food order expediter, Pap conventional Diff Quick, CELL BLOCK, H AND E, Initial B: FINE NEEDLE ASPIRATION 7 LYMPH NODE pap stain non-food order expediter, Pap conventional Diff Quick, CELL BLOCK, H AND E, Initial, IH p40, IH TTF-1, IH MD Recut, IH PD-L1 22C3, US PLUS, IH US PLUS, IH US PLUS, IH MD US PLUS, MD US PLUS, MD US PLUS, US PLUS, US PLUS, US PLUS, US PLUS, US PLUS, US PLUS, MD US PLUS, MD US PLUS, MD US PLUS, IH MD Recut, NGS Focused Solid Tumor Assay(DNA/RNA) Gross Description A. FINE NEEDLE [id number] RS LYMPH NODE: 1 DIFF QUICK SLIDE,1 DIRECT SMEAR SLIDE AND 30cc CLOUDY RED NEEDLE RINSE WITH PARTICLES IN CYTOLYT. B. FINE NEEDLE ASPIRATION 7 LYMPH NODE: 1 DIFF QUICK SLIDE,1 DIRECT SMEAR SLIDE AND 40cc CLOUDY RED NEEDLE RINSE IN CYTOLYT WITH PARTICLES IN CYTOLYT. NEHEMIAH PASTOR MD Addendum/Procedures: Special Oncology Report Date Ordered: 11/22/2018 Status: Signed Out Date Complete: 11/22/2018 Date Reported: 11/22/2018 Addendum Diagnosis PD-L1 22C3 by Immunohistochemistry with Interpretation, pembrolizumab (KEYTRUDA) Surgical block used: B1 Interpretation: HIGH EXPRESSION Tumor Proportion Score (TPS): 75% Intended use: PD-L1 22C3 by IHC with Interpretation is a qualitative immunohistochemical assay using Monoclonal Mouse Anti-PD-L1, Clone 22C3 intended for use in the detection of PD-L1 protein in formalin-fixed, paraffin-embedded (FFPE) non-small cell lung cancer (NSCLC) tissue using the Optiview detection on a RenovoRx BenchMark Ultra. The specimen submitted for testing should contain at least 100 viable tumor cells to be considered adequate for evaluation. This assay is indicated as an aid in identifying NSCLC patients for treatment with pembrolizumab (KEYTRUDA). Methodology: PD-L1 protein expression is determined by using Tumor Proportion Score (TPS), which is the percentage of viable tumor cells showing partial or complete membrane staining at any intensity. In the clinical setting of first-line therapy (treatment-na?ve patients), the specimen is considered PD-L1 positive if the TPS is equal to or greater than 50 percent. In the setting of second-line therapy, the specimen is considered positive if the TPS is equal to or greater than 1 percent. Reference Range: High Expression >=50% TPS Low Expression 1-49% TPS No Expression <1% TPS This assay is validated and FDA-approved for lung cancer specimens only. For all other specimen types, results should be interpreted with caution and within the appropriate clinical context. The use of this assay on decalcified tissues has not been validated and is not recommended. One or more of the reagents used to perform assays on this specimen MAY have contained components considered to be Laboratory Developed Tests (LDT). LDT's have not been cleared or approved by the U.S. Food and Drug Administration. These assays/tests were developed and their performance characteristics determined by the Department of Pathology Immunohistochemistry Lab at [facility] [place]. The FDA does not require this test to go through premarket FDA review. This test is used for clinical purposes. It should not be regarded as investigational or for research. This laboratory is certified under the Clinical Laboratory Improvement Amendments (CLIA) as qualified to perform high complexity clinical laboratory testing. The assays/tests were performed with appropriate positive and negative controls which stained appropriately. Electronically Signed Out By ADRIANA ZAPATA MD/RONNIE By the signature on this report, the individual or group listed as making the Final Interpretation/Diagnosis certifies that they have reviewed this case. Special Oncology Report Date Ordered: 11/26/2018 Status: Signed Out Date Complete: 11/26/2018 Date Reported: 11/26/2018 Addendum Diagnosis TEST: Focused Solid Tumor Assay SPECIMEN: FFPE, Lymph Node, FNA, [id number] B1 DISEASE DIAGNOSIS: Adenocarcinoma DATE OF COLLECTION: 11/15/2018 DATE OF RECEIVED: 11/22/2018 REPORT DATE: 11/26/2018 RESULT: Negative for EGFR mutation. Negative for BRAF mutation. Negative for ALK fusions. Negative for ROS1 fusions. Negative for NTRK fusions. VARIANTS DETECTED: KRAS p.G12C (c.33_34delinsCT) RICTOR Amplification TP53 p.G245C (c.733G>T) TP53 p.R249S (c.747G>T) TP53 mutations are detected in trans. DISCLAIMER: This panel is designed to detect targeted clinically-relevant mutations single nucleotide variants, small insertion and deletions (<40bp), whole gene high copy number amplifications, and translocations in a select group of genes. Identification or absence of cancer-associated mutations does not necessarily indicate a response to therapy. Correlation with clinical, histopathologic, cytogenetic, and other laboratory findings is required for complete interpretation and to adequately inform treatment. This assay does not distinguish between somatic and germ-line alterations in analyzed regions. The report includes information from public sources (scientific and medical literature) to establish clinical significance of mutations detected. Variants of uncertain significance may be identified and may represent low frequency polymorphisms. The significance of these mutations on prognosis and therapy is by its nature uncertain. Clinical trial information provided is solely for informational purposes. A negative result (mutation not identified) using this panel does not preclude the presence of a mutation below the sensitivity of this assay due to low neoplastic cell content, tumor heterogeneity, or the presence of additional mutations in the listed genes which are outside of the target regions in this assay. Normal population variations, promote and intronic variations (with the exception of splice variants) as well as synonymous variants are not necessarily included in this report. This test has an analytical sensitivity for detecting 5% SNV and 10% indel mutated sequences in a background of non-mutated DNA sequence. The assay may not detect amplifications if the presence of tumor cells in the sample studied is below <30% or copy number amplification is below 8x. Translocation detection is limited to set of specific acceptor genes at sensitivity of 5% fusion transcript in a background of non-mutated RNA. The performance characteristics of the test can change based on adequacy of tumor tissue and pre-analytical variables. This laboratory developed test was developed and its analytical performance characteristics have been determined by [facility]. This test has not been cleared or approved by the FDA; however, the FDA has determined that such approval is not necessary. The [facility] is certified under the Clinical Laboratory Improvement Amendments of 1988 (CLIA-88) as qualified to perform high complexity testing. PANEL GENE LIST: Hotspot mutations: AKT1, ALK, APC, AR, ARAF, B2M, BRAF, CCNND1, CDK4, CDKN2A, CREBBP, CTNNB1, DDR2, EGFR, EP300, ERBB2, ERBB3, ERBB4, ESR1, FBXW7, FGFR2, FGFR3, GNA11, GNAQ, HRAS, IDH1, IDH2, JAK1, JAK2, JAK3, KEAP1, KIT, KRAS, MAP2K1, MAP2K2, MET, MTOR, NFE2L2, NRAS, PDGFRA, PIK3CA, POLE, PTEN, RAF1, RET, ROS1, SMAD4, SMO, TP53, U2AF1. Copy Number Variants: ALK, AR, ROXI, BRAF, CCND1, CDK4, CDK6, EGFR, ERBB2, FGFR1, FGFR2, FGFR3, FGFR4, KIT, KRAS, MET, MYC, MYCN, PDGFRA, PIK3CA, RICTOR. Fusion Drivers: ABL1, ALK, AKT3, ROXI, BRAF, EGFR, ERBB2, ERG, ETV1, ETV4, ETV5, FGFR1, FGFR2, FGFR3, MET, NTRK1, NTRK2, NTRK3, PDGFRA, PPARG, RAF1, RET, ROS1. This panel is focused on somatic alteration in solid tumors that may serve as potential therapeutic targets. Not all exons of all genes are sequenced. AKT1(NM_005163); ALK(NM_004304); APC (NM_000038); AR(NM_000044); ARAF (NM_001654); ROXI (NM_021913); B2M (NM_004048);BRAF(NM_004333); CCND1(NM_053056); CDK4(NM_000075); CDK6(NM_001259); CDKN2A (NM_000077); CREBBP (NM_004380); CTNNB1(NM_001904); DDR2(NM_006182); EGFR(NM_005228); EP300 (NM_001429);ERBB2(NM_004448; ERBB3(NM_001982); ERBB4(NM_005235); ESR1(NM_204225); FBXW7 (NM_033632); FGFR1(NM_023110); FGFR2(NM_204241); FGFR3(NM_204242); FGFR4(NM_213647); GNA11(NM_002067); GNAQ(NM_002072); HRAS(NM_005343); IDH1(NM_005896); IDH2(NM_002168); JAK1(NM_002227); JAK2(NM_004972); JAK3(NM_000215); KEAP1 (NM_203500); KIT(NM_000222); KRAS(NM_033360); MAP2K1(NM_002755); MAP2K2(NM_030662); MET(NM_000245); MTOR(NM_004958); MYCN(NM_005378); MYC(NM_002467); NFE2L2 (NM_006164); NRAS(NM_002524); PDGFRA(NM_006206); PIK3CA(NM_006218); POLE (NM_006231); PTEN (NM_000314); RAF1(NM_002880); RET(NM_020975); RICTOR (NM_152756); ROS1(NM_002944); SMAD4 (NM_005359), SMO(NM_005631); TP53 (NM_000546); U2AF1 (NM_006758). Genome assembly (hg19) was used for alignment and variant calling. Archival material from this surgical specimen has been reviewed by the pathologist in order to determine the most appropriate tumor tissue for further molecular testing. The identification and selection of this tumor tissue is critical to the success of subsequent molecular testing and analysis. Electronically Signed Out By SAMMY TIMMONS MD, PhD/NVS By the signature on this report, the individual or group listed as making the Final Interpretation/Diagnosis certifies that they have reviewed this case. The assays/tests were performed with appropriate positive and negative controls which stained appropriately.One or more of the reagents used to perform assays on this specimen MAY have contained components considered to be Laboratory Developed Tests (LDT). LDT's have not been cleared or approved by the U.S. Food and Drug Administration. These assays/tests were developed and their performance characteristics determined by the Department of Pathology Immunohistochemistry Labs at [facility]. The FDA does not require this test to go through premarket FDA review. This test is used for clinical purposes. It should not be regarded as investigational or for research. This laboratory is certified under the Clinical Laboratory Improvement Amendments (CLIA) as qualified to perform high complexity clinical laboratory testing. The assays/tests were performed with appropriate positive and negative controls which stained appropriately. Performed By: #### C #### [facility] [id number] [address] [facility] [address] TH ABDOMEN AP VIEW Observed: 11/14/2018 Status: F Source: [place] 6:40 PM [facility] REPOSITORY Patient Name: TRISH HUNT STUDY: TH ABDOMEN AP VIEW; 11/14/2018 6:40 pm INDICATION: Signs/Symptoms: abdominal distension with Nausea and vomiting. COMPARISON: None ACCESSION NUMBER(S): [id number] ORDERING CLINICIAN: NESSA CARLOS FINDINGS: Nonobstructive bowel gas pattern. Limited evaluation of pneumoperitoneum on supine imaging, however no gross evidence of free air is noted. Visualized lungs are clear. Osseous structures demonstrate no acute bony changes. IMPRESSION: 1. Moderate amount of stool within the colon but no gross evidence of obstruction. Electronically signed by: Dashawn MARCOS MD DISCHARGE PROFILE2 Observed: 11/14/2018 Status: UNK Source: [place] 5:14 PM [facility] REPOSITORY Discharge Orders: Anticipated Discharge Date: Anticipated Discharge [id number] Problem List: Prelim Disch Dx: HCAP (healthcare-associated pneumonia): Catalog Name: Pneumonia, unspecified organism Urinary tract infection due to Klebsiella species: Catalog Name: Urinary tract infection, site not specified Escherichia coli urinary tract infection: Catalog Name: Urinary tract infection, site not specified Neoplasm related pain: Catalog Name: Neoplasm related pain (acute) (chronic) Urinary tract infection associated with catheterization of urinary tract: Catalog Name: Infection and inflammatory reaction due to indwelling urethral catheter, initial encounter Back pain: Catalog Name: Dorsalgia, unspecified Overactive bladder: Catalog Name: Overactive bladder Pathological compression fracture of vertebra: Catalog Name: Collapsed vertebra, not elsewhere classified, site unspecified, initial encounter for fracture Postoperative anemia due to acute blood loss: Catalog Name: Acute posthemorrhagic anemia Acute kidney injury (nontraumatic): Catalog Name: Acute kidney failure, unspecified Primary adenocarcinoma of middle lobe of right lung: Catalog Name: Malignant neoplasm of middle lobe, bronchus or lung Lung cancer metastatic to bone: Catalog Name: Malignant neoplasm of unspecified part of unspecified bronchus or lung Significant Events: Surgical Procedure: Clinical Events This Visit, 23-Nov-2018, T10-11 transpedicular decompression of tumor, T7-L2 instrumented fusion T10-T11 Decompression w/T7-T12 Fusion w/Allograft 11/2018: Past Surgical History L4-L5 Decompression 2000: Past Surgical History Cholecystectomy: Past Surgical History Hemorrhoidectomy: Past Surgical History Tonsillectomy: Past Surgical History Spinal Cord Stim. 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 May shower. Weight-bearing Instructions: full weight bearing. Diet: Dietlow sodium Labs 1: Lab Test(s)Basic Metabolic Panel, CBC Date To Be Drawnone week Wound Care 1: Wound SiteThoracic spine Wound Typesurgical incision Cover Withno dressing, leave open to air Additional Orders: Blood Glucose Monitoringdaily Accu-Chek Weightthree times a week Additional Instructions Home Metformin ER 500 mg daily and Losartan-HCTZ 50-12.5 mg have not currently been resumed due to good blood glucose and blood pressure control. JHONY wraps or sequential compression devices to bilateral lower legs. Heart Failure: Patient Instructions: - CALL 911 IF YOU HAVE ANY OF THE SIGNS AND SYMPTOMS OF HEART FAILURE: 1. Chest pain 2. Significant Shortness of breath 3. Fainting. - Notify your physician immediately if you have shortness of breath; weight gain of 3 lbs. or more; fatigue and loss of energy; swelling of lower extremities or abdomen; dizziness or fainting; change of appetite; and frequent coughing. - Patient received Living With Heart Failure book. - Daily weight on the same scale, same time after voiding and before eating. - Maintain daily weight log. Activity: - Balance activity with rest, gradually increase your activity as tolerated. - Exercise as prescribed by your physician. Neurosurgery: Activity: Slowly increase your activity level. You may feel fine but your body is still recovering and needs a balance of sleep and rest. It may take a month or two before you regain the energy you had before surgery. No heavy lifting (more than 10 pounds), pulling or pushing activity until cleared by MD at follow-up appointment. Wound Care: Inspect your incision daily for signs of infection: redness, swelling, drainage and foul discharge. Keep surgical incision open to air. DO NOT soak in a tub or swim until incision is completely healed. This may take approximately 4 weeks. DO NOT scrub the incision. DO NOT pick off scabs, or old blood from the incision site. The incision should heal naturally on its own. No Lotions, creams, gels or powders. No hair products, conditioner, rubbing alcohol, hydrogen peroxide or ointments on or around your incision. There may be some tenderness, bruising and a small amount of swelling along the incision line. This will gradually go away over the next several weeks. Call Physician If: Call your Neurosurgeon immediately for any questions or concerns regarding the surgical incision. Call your MD or seek immediate medical attention if you experience any of the following symptoms: 1. Fever of 101.5 (38.5 C) or greater 2. Seizures 3. Nausea with vomiting 4. Double, blurry or loss of vision 5. Confusion 6. Severe headaches that make you nauseous and vomit 7. Drainage or swelling around your incision 8. Trouble speaking 9. Loss of movement or weakness in your arms or legs 10. Trouble controlling your bowels or bladder 11. Fainting or passing out 12. Separation of the incision, or tearing of the incision line 13. Large fluid collection under or around the incision 14. Difficultly swallowing for Cervical patients 15. Swelling, pain, heat or redness in your legs and/or calves. Hospital Course (Home Care/Gold Form): Hospital Course: Hospital Course: include significant abnormal lab values Trish Hunt is a 73 year old female former smoker w/ PMHx significant for HTN, Impaired Fasting Glucose, Hyperlipidemia, Peripheral Neuropathy, Hypothyroidism, GERD, Morbid Obesity and Recent Spinal Cord Stimulator Implant for Overactive Bladder 08/2018 with removal 10/2018 due to persistent back pain who was transferred to [facility] 11/12/18 from [facility] after presenting there on 11/11/18 with intractable progressive back pain radiating around waist in band of 2-3 weeks accompanied by SOB with increased pain with deep breath. Due to the pain she had the Spinal Cord Stimulator Implanted in August removed on 10/25/18 without improvement of pain. A CT of the Chest, Abdomen and Pelvis was obtained and showed Occlusion of the right middle bronchus with pleural effusion and a suspected Pathologic fracture of the T10 vertebral body with canal stenosis as well as additional vertebral lesions at T8, T9, and T11 suspicious for additional metastases. A Diagnostic Right Thoracentesis via U/S was with cytology ultimately found to be negative. An MRI of the T spine was obtained and showed the lesion was not compressing the spine but was however in close proximity to the cord, and therefore she was given Decadron with request for transfer to [facility] under Oncology for further evaluation by Neurosurgery. Given lack of tissue diagnosis at time of transfer, she was admitted to Medicine for further evaluation. Neurosurgery was consulted and did not find evidence of cord compression on imaging. A CT of the Thoracic and Lumbar Spine was done followed by a MRI of the entire spine at Neurosurgery request. MRI consistent with T10 fracture and additional metastases. IV fluids were given for a mild SHLOMO with resolution. Pulmonology was consulted and a Bronch w/ EBUS done under General Anesthesia and sampling of right hilar mass and subcarinal lymph node with Pathology from LN biopsy showing Adenocarcinoma with lung primary. Oncology was consulted and recommended PET scan showed right central middle lobe malignancy with multiple metastasis to the axial skeleton, mediastinal and bilateral hilar lymph nodes. The lung tumor Pathology additionally showed Positive PD-L1 Expression - may benefit from anti PD-1 Immunotherapy such as Keytruda. Palliative Care was consulted and Dexamethasone and Pamidronate were added to Narcotics for pain control. Radiation Oncology was consulted and does not plan to start radiation therapy until postoperative period. Neurosurgery did a T10-T11 Decompression w/ T7-L2 Fusion for Thoracic Spinal Metastasis w/ Cord Compression on 11/23/18 with marked improvement pain. The Thoracic Surgical pathology showed adenocarinoma with involvement of soft tissue and bone . She had a postoperative anemia w/ Hgb drop from 14 to 8 and received a unit of blood with Hgb then stable and 10 at discharge. An MRI of the Thoracic Spine was repeated postoperative at Neurosurgery request and surgical drains were removed. She developed a leukocytosis of 13k 11/30/18 with urine culture post catheter removal showing > 100,000 E. Coli and Klebsiella and she was started on Zosyn. The following day, she developed a new moist cough, with new right sided rales on exam with Chest x-ray showing a right middle lobe consolidation. Vancomycin was initially added, but transitioned to Levofloxacin with plan to complete a total 10 day course of ATB to cover both the HCAP as well as the Polymicrobial CAUTI (low suspicion for MRSA given initial Zosyn response. Her leukocytosis resolved and cough improved. Her leukocytosis resolved nad cough improved. Fortunately, her chronic Urge Incontinence was partially responsive to Oxybutynin which had been effective in the past. Her home Metformin ER was not initiated as blood glucose was well controlled, and her home Losartan HCTZ was not reinitiated due to normal BP. Her separate HCTZ will be resumed at discharge due to some leg edema. A referral was made to [facility] for Oncology and Radiation Oncology follow up. She needs Skilled Care for continued Physical Rehabilitation. Infectious Disease: PPD Statusnot given MRSAno VREno C. Diffno Other Resistant Organismno Isolation Typenone Gold Form Orders: Care Recommendation: I recommend that INPATIENT care is required at:Skilled Estimated StayConvalescent stay < 30 days PrognosisGood Rehab Potential/FunctionImprove Provider CertificationI certify that inpatient care is required at the level recommended above. To the best of my knowledge, all information provided about the individual is a true and accurate reflection of the individual's condition. Therapy Orders: Occupational Therapy OrdersEval and Treat ([facility]) daily Physical Therapy OrdersEval and Treat ([facility]) daily Provider Follow Up: Primary Care PhysicianDr. Harjinder Braswell Primary Care Physician Phone [phone] Physician To Follow at Skilled/RehabAttending Physician at Skilled/Rehab Provider FINAL REVIEW of Orders: Final Review: Final Review of Medication Reconciliation and Orders Completedby Physician Reviewing ProviderCheng Bethea MD at 03-Dec-2018 17:23:37 Appointments: Follow-Up Appointment 01: Physician/Dept/ServiceDr. Harjinder Braswell (Primary Care Provider) Reason for Referralhospital follow up Call to Schedule wild to schedule a follow-up appointment upon discharge from detention facility [id number] [place], [place] [address] Phone [phone] / Follow-Up Appointment 02: Physician/Dept/ServiceDrJoseph Gates (Medical Oncology) Reason for ReferralMetastatic Lung Cancer Scheduled Date/Aoqq03-[id number] 13:[address] [place] [address] Phone [phone] / crew scheduler [phone] CommentsBring CD of of your Radiology Images to give to Dr. Gates Follow-Up Appointment 03: Physician/Dept/ServiceDrJoseph Guerrero (Radiation Oncology) Reason for ReferralMetastatic Lung Cancer to the Spine Call to Schedule into be arranged - if you have not heard by the time you see Dr. Gates, let him know [address] [place] [address] Phone [phone] / crew scheduler [phone] Follow-Up Appointment 04: Physician/Dept/ServiceDrJoseph Tamayo (Neurosurgery) Reason for Referralfollow up Thoracic Spine Decompression with Fusion Surgery Scheduled Date/[id number] 14:00 [facility] - [address] [place] [address] Dr. Adan [facility] [place], [place] [address] Phone [phone] Commentsplease bring a photo ID, proof of insurance and current list of medications with you to this appointment Gold Form - Nursing Summary: Special Treatments/Procedures (in past 14 days): Chemotherapyno Dialysisno IV Medicationyes Last Date [id number] Transfusionsno Feverno Radiationno Ventilatorno Tracheostomyno Suctioningno Sensory/Comfort: Visionuses glasses/contacts Hearingpoor Painyes Pain Typespasm Pain Locationlumbar spine Whenupon movement Pain Relieved Byposition Elimination: Bladdercontinent Bowelcontinent Last Bowel [id number] Safety: Siderailsyes Siderails Number/Reason3/ safety Restraintsno Sitterno Fall Riskweakness Medication/Hygiene/Mobility: Medication Administrationassist Bathingassist Dressingassist Bed Mobilitypersons/equipment, walker Wheelchairassist Transfersassist Ambulationassist Skin comment: Skin commentback with brittni Electronic Signatures: Buster Bose () (Signed 03-Dec-2018 15:05) Authored: Discharge Orders, Gold Form - Nursing Summary Leandra Rosario ([facility]) (Signed 01-Dec-2018 17:04) Authored: Appointments Cheng Bethea) (Signed 03-Dec-2018 17:23) Authored: Gold Form Orders, Provider FINAL REVIEW of Orders Lara Faulkner ([facility]) (Signed 02-Dec-2018 15:15) Authored: Appointments Jordan Saunders ([facility]) (Signed 01-Dec-2018 12:31) Authored: Discharge Orders, Hospital Course (Home Care/Gold Form), Appointments Randee Meza ([facility]) (Signed 23-Nov-2018 19:17) Authored: Neurosurgery Nessa Carlos ([facility]) (Signed 03-Dec-2018 19:33) Authored: Discharge Orders, Neurosurgery, Stroke, Hospital Course (Home Care/Gold Form), Gold Form Orders, Appointments, Gold Form - Consumer Affairs Director Summary Dominic Preciado ([facility]) (Signed 22-Nov-2018 18:50) Authored: Discharge Orders, Gold Form Orders Bienvenido France (PT [facility] RE[facility]) (Signed 01-Dec-2018 13:02) Authored: Heart Failure, Stroke, Appointments Deanne Sanabria ([facility] RE[facility]) (Signed 29-Nov-2018 13:58) Authored: Appointments Last Updated: 03-Dec-2018 19:33 by Nessa Carlos ([facility]) DAILY PROGRESS Observed: 11/14/2018 Status: COMPLETED Source: UNIVERSITY NOTE-PULMONOLOGY 4:18 PM HOSPITALS REPOSITORY Consult Type: subsequent visit/care Service: Pulmonology Subjective Data: TRISH HUNT is a 73 year old Female who is Hospital Day # 3. Additional Information: Seen this afternoon after CT scan of her spine Having increased nausea and vomitting Tentative plan for bronch tomorrow Reviewed history reports most recent mammogram ~ 3 years ago Objective Data: Objective Information: T PRBPSpO2 [id number]% Date/Time11/14 15: 15: 15: 15: 15:46 Range(36.4C - 36.9C ) (80 - 90 ) (17 - 21 ) (110 - 157 )/ (68 - 83 ) (93% - 100% ) Highest temp of 36.9 C was recorded at 11/13 19:02 Pain reported at 11/14 6:16: 7 Pain reported at 11/14 6:17: 7 Physical Exam: Constitutional: alert and oriented, in mild distress Respiratory/Thorax: symmetric breath sounds BL, no crackles or wheezes Extremities: no pedal edema Skin: no rash Medication: Medications: Continuous Medications No continuous medications are active Scheduled Medications 1. Acetaminophen: 975 mg Oral <User Schedule> 2. Enoxaparin SubCutaneous: 40 mg SubCutaneous Every 12 Hours 3. Fludeoxyglucose F-18 - (Radiology Contrast): 10 milliCurie IntraVenous Push Once 4. Gadobenate Dimeglumine (MultiHance-Radiology Contrast): 22.9 mL IntraVenous Push Once 5. Gadobenate Dimeglumine (MultiHance-Radiology Contrast): 22.9 mL IntraVenous Push Once 6. hydroCHLOROthiazide: 12.5 mg Oral Daily 7. Levothyroxine: 50 microgram(s) Oral Daily 8. Multivitamin with Minerals: 1 tablet(s) Oral Daily 9. Polyethylene Glycol: 17 gram(s) Oral 2 Times a Day 10. Simvastatin: 20 mg Oral At Bedtime PRN Medications 1. Bisacodyl Rectal: 10 mg Rectal Daily 2. HYDROmorphone Injectable: 0.2 mg IntraVenous Push Every 4 Hours 3. Morphine Immediate Release: 7.5 mg Oral Every 3 Hours 4. Ondansetron Injectable: 4 mg IntraVenous Push Every 6 Hours 5. Polyethylene Glycol: 17 gram(s) Oral Daily Assessment and Plan: Assessment: 73 year old female with new onset back pain presenting to [facility], found to have spinal lesions, impending cord compression at T10 (by imaging) and R hilar mas with mediastinal adenopathy. Pulmonary consult for tissue diagnosis. New Hilar Mass and adenopathy with spinal lesions -most likely a primary lung lesion given smoking history and presentation although cannot exclude other malignancy -agree with PET scan for staging -f/u cytology from thoracentesis at [facility] -plan for bronchscopy tomorrow--please keep NPO after midnight, hold lovenox tonight and tomorrow morning. Discussed with Dr. Lewis Will continue to follow, call consult pager [phone] with any questions Signature/Cosignature/Attestation: Attending AttestationI saw and evaluated the patient. I personally obtained the almonte and critical portions of the history and physical exam or was physically present for almonte and critical portions performed by the resident/fellow. I reviewed the resident/fellows documentation and discussed the patient with the resident/fellow. I agree with the resident/fellows medical decision making as documented in the residents note. I personally evaluated the patient (as noted in the above attestation) on 14-Nov-2018 Comments/ Additional Findings Cytology from thoracentesis still pending; bronchoscopy tomorrow. Electronic Signatures: Jane Lewis) (Signed 03-Dec-2018 22:26) Authored: Signature/Cosignature/Attestation Co-Signer: Service, Assessment/Plan Review, Subjective Data, Objective Data, Assessment and Plan, Signature/Cosignature/Attestation Linda Gomez (Fellow)) (Signed 14-Nov-2018 16:25) Authored: Service, Assessment/Plan Review, Subjective Data, Objective Data, Assessment and Plan, Signature/Cosignature/Attestation Last Updated: 03-Dec-2018 22:26 by Jane Lewis) NR CT L-SPINE WO Observed: 11/14/2018 Status: F Source: UNIVERSITY CONTRAST 2:10 PM HOSPITALS REPOSITORY Patient Name: TRISH HUNT STUDY: NR CT L-SPINE WO CONTRAST; NR CT T-SPINE WO CONTRAST 11/14/2018 2:10 pm INDICATION: Signs/Symptoms: T9 lesion on Chest CT suspicious for bone mets, but having pain in lumbar region, Lie Flat: Yes COMPARISON: None. ACCESSION NUMBER(S): [id number]; [id number] ORDERING CLINICIAN: NESSA CARLOS TECHNIQUE: Unenhanced CT images of the thoracic and lumbar spine were obtained. Sagittal and coronal reconstructions were created. FINDINGS: Thoracic spine: There are 12 rib-bearing thoracic vertebrae. The T10 vertebral body has less than 10% loss of height secondary to pathologic compression injury mostly along the superior aspect. Tumor fills the central and posterior aspects of the vertebral body, extending into and severely stenosing the spinal canal, compressing the spinal cord. The actual soft tissue contents of the spinal canal are difficult to evaluate due the lack contrast. The posterior left T9 vertebral body has a small focus of tumor with tumor also noted in the central and inferior lamina extending into the inferior facets of T9. T10 has tumor in the vertebral body extending into the pedicles and posterior elements bilaterally more prominent on the right with a small rim of soft tissue mass extending from the bony margins. Tumor is also noted in the T10 and to lesser degree T9 spinous processes. T11 has tumor in the right pedicle and lamina extending inferiorly with tumor also noted in the medial and of the right 11th rib. The right T10-11 neural foramen is stenosed by soft tissue mass. There are enlarged right paratracheal and para carinal lymph nodes extending into the right hilum with compression of the right mainstem bronchus. There may be additional enlarged lymph nodes in the right hilar region; this area is difficult to evaluate as there is consolidation and atelectasis in the right middle lobe. A moderate size layering right pleural effusion with atelectasis in the posterior right lower lobe is also present. Lumbar spine: There are 5 lumbar type vertebrae. The spine curves 5? convex to the left at T12-L1. The L5 and S1 vertebral bodies are fused with near complete loss of the disc between the 2. The left L5 pedicle has vague lucency and questionable fracture along the superior margin of the left pedicle. L1-2: The lateral recesses are moderately stenosed by ligament thickening and disc bulge. L2-3: The lateral recesses and spinal canal are moderately stenosed by disc bulge and ligament thickening. L3-4: The lateral recesses and spinal canal are moderately to severely stenosed by ligament thickening and disc bulge. L4-5: The lateral recesses and spinal canal are severely stenosed secondary to disc bulge and ligament thickening. There is questionable soft tissue along the left ventral aspect of the thecal sac abutting the left L5 pedicle as well. L5-S1: The lateral recesses are mildly to moderately stenosed by disc bulge and facet hypertrophy. The aorta and iliac arteries have atherosclerotic calcifications. The nondilated renal pelvises as well as the bladder are slightly increased in density suggestive of prior contrast administration. The stomach is distended. The visualized colon also has mildly radiodense material. There is questionable thickening of the rectal bowel aguayo more so towards the left. IMPRESSION: 1. 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 2. Tumor is also noted in the T9 and T11 vertebrae. 3. The left L5 pedicle has vague lucency with questionable cortical breakthrough along its superior margin suspicious for tumor; the spinal canal and lateral recesses are stenosed at this level secondary to degenerative changes and questionable soft tissue along the left ventral thecal sac which may represent tumor as well. MR is recommended for further evaluation. 4. Enlarged mediastinal and probably enlarged right hilar lymph nodes are present; the right hilum is difficult to evaluate due to consolidation and atelectasis in the right middle lobe. Enhanced CT is recommended for further evaluation. 5. Layering right pleural effusion. 6. There is questionable bowel wall thickening along the left side of the rectum. Direct visualization may be helpful for further evaluation. 7. The lateral recess and spinal canal stenoses on a degenerative basis are also noted elsewhere in the lumbar region. Findings called to the floor at 3:15 p.m. Electronically signed by: PHYSICIAN OLU NR CT T-SPINE WO Observed: 11/14/2018 Status: F Source: UNIVERSITY CONTRAST 2:10 PM HOSPITALS REPOSITORY Patient Name: TRISH HUNT STUDY: NR CT L-SPINE WO CONTRAST; NR CT T-SPINE WO CONTRAST 11/14/2018 2:10 pm INDICATION: Signs/Symptoms: T9 lesion on Chest CT suspicious for bone mets, but having pain in lumbar region, Lie Flat: Yes COMPARISON: None. ACCESSION NUMBER(S): [id number]; [id number] ORDERING CLINICIAN: NESSA CARLOS TECHNIQUE: Unenhanced CT images of the thoracic and lumbar spine were obtained. Sagittal and coronal reconstructions were created. FINDINGS: Thoracic spine: There are 12 rib-bearing thoracic vertebrae. The T10 vertebral body has less than 10% loss of height secondary to pathologic compression injury mostly along the superior aspect. Tumor fills the central and posterior aspects of the vertebral body, extending into and severely stenosing the spinal canal, compressing the spinal cord. The actual soft tissue contents of the spinal canal are difficult to evaluate due the lack contrast. The posterior left T9 vertebral body has a small focus of tumor with tumor also noted in the central and inferior lamina extending into the inferior facets of T9. T10 has tumor in the vertebral body extending into the pedicles and posterior elements bilaterally more prominent on the right with a small rim of soft tissue mass extending from the bony margins. Tumor is also noted in the T10 and to lesser degree T9 spinous processes. T11 has tumor in the right pedicle and lamina extending inferiorly with tumor also noted in the medial and of the right 11th rib. The right T10-11 neural foramen is stenosed by soft tissue mass. There are enlarged right paratracheal and para carinal lymph nodes extending into the right hilum with compression of the right mainstem bronchus. There may be additional enlarged lymph nodes in the right hilar region; this area is difficult to evaluate as there is consolidation and atelectasis in the right middle lobe. A moderate size layering right pleural effusion with atelectasis in the posterior right lower lobe is also present. Lumbar spine: There are 5 lumbar type vertebrae. The spine curves 5? convex to the left at T12-L1. The L5 and S1 vertebral bodies are fused with near complete loss of the disc between the 2. The left L5 pedicle has vague lucency and questionable fracture along the superior margin of the left pedicle. L1-2: The lateral recesses are moderately stenosed by ligament thickening and disc bulge. L2-3: The lateral recesses and spinal canal are moderately stenosed by disc bulge and ligament thickening. L3-4: The lateral recesses and spinal canal are moderately to severely stenosed by ligament thickening and disc bulge. L4-5: The lateral recesses and spinal canal are severely stenosed secondary to disc bulge and ligament thickening. There is questionable soft tissue along the left ventral aspect of the thecal sac abutting the left L5 pedicle as well. L5-S1: The lateral recesses are mildly to moderately stenosed by disc bulge and facet hypertrophy. The aorta and iliac arteries have atherosclerotic calcifications. The nondilated renal pelvises as well as the bladder are slightly increased in density suggestive of prior contrast administration. The stomach is distended. The visualized colon also has mildly radiodense material. There is questionable thickening of the rectal bowel aguayo more so towards the left. IMPRESSION: 1. 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 2. Tumor is also noted in the T9 and T11 vertebrae. 3. The left L5 pedicle has vague lucency with questionable cortical breakthrough along its superior margin suspicious for tumor; the spinal canal and lateral recesses are stenosed at this level secondary to degenerative changes and questionable soft tissue along the left ventral thecal sac which may represent tumor as well. MR is recommended for further evaluation. 4. Enlarged mediastinal and probably enlarged right hilar lymph nodes are present; the right hilum is difficult to evaluate due to consolidation and atelectasis in the right middle lobe. Enhanced CT is recommended for further evaluation. 5. Layering right pleural effusion. 6. There is questionable bowel wall thickening along the left side of the rectum. Direct visualization may be helpful for further evaluation. 7. The lateral recess and spinal canal stenoses on a degenerative basis are also noted elsewhere in the lumbar region. Findings called to the floor at 3:15 p.m. Electronically signed by: JOHN BRISCOE PHYSICIAN DAILY PROGRESS Observed: 11/14/2018 Status: COMPLETED Source: UNIVERSITY NOTE-MEDICINE 2:08 PM HOSPITALS REPOSITORY Service: Medicine Subjective Data: TRISH HUNT is a 73 year old Female who is Hospital Day # 3. I slept good last night, but then when I woke up the pain was horrible. With this overactive bladder I have to go to the bathroom all the time and I don't want to wet myself.. Overnight Events: Patient had an uneventful night. Additional Information: Reports that Oxycodone provides no pain relief. Reports no BM. Objective Data: Objective Information: MEDICAL / SURGICAL HISTORY: - Hypertension - Impaired Fasting Glucose - Hyperlipidemia - Hypothyroidism - GERD - Peripheral Neuropathy - Morbid Obesity - Overactive Bladder * Spinal Cord Stimulator Implantation 08/2018 (removed 11/02) - Tonsillectomy - Hemorrhoidectomy - Cholecystectomy - L4-L5 Decompression 1999 T PRBPSpO2 [id number]/85547% Date/Time11/14 11: 11: 11: 11: 11:29 Range(36.4C - 36.9C ) (83 - 92 ) (17 - 21 ) (101 - 157 )/ (68 - 83 ) (93% - 100% ) Highest temp of 36.9 C was recorded at 11/13 19:02 Pain reported at 11/14 6:16: 7 Pain reported at 11/14 6:17: 7 Physical Exam: Constitutional: Alert, oriented, obese, lying in bed with some facial grimacing Eyes: Sclera white ENMT: Mucous membranes moist Head/Neck: Normocephalic Respiratory/Thorax: Respirations easy and unlabored with breath sounds clear to ausculation bilaterally anteriorly. Cardiovascular: Heart with regular rhythm, S1, S2, no appreciable murmur Gastrointestinal: Abdomen obese, non-distended, hypoactive bowel sounds, soft, non-tender Musculoskeletal: ROM intact, no joint swelling, normal strength Extremities: No cyanosis or wounds. 1+ edema of lower legs and feet bilaterally Neurological: Alert and oriented x3, intact senses and motor responses with 5/5 strength of arms and legs bilaterally Psychological: Appropriate mood and behavior Skin: Warm and dry, no lesions, no rashes Medication: Medications: Scheduled Medications 1. Acetaminophen: 975 mg Oral three times a day 2. Enoxaparin SubCutaneous: 40 mg SubCutaneous Every 12 Hours 3. hydroCHLOROthiazide: 12.5 mg Oral Daily 4. Levothyroxine: 50 microgram(s) Oral Daily 5. Multivitamin with Minerals: 1 tablet(s) Oral Daily 6. Polyethylene Glycol: 17 gram(s) Oral 2 Times a Day 7. Simvastatin: 20 mg Oral At Bedtime PRN Medications 1. Bisacodyl Rectal: 10 mg Rectal Daily 2. HYDROmorphone Injectable: 0.2 mg IntraVenous Push Every 4 Hours 3. Morphine Immediate Release: 7.5 mg Oral Every 3 Hours 4. Ondansetron Injectable: 4 mg IntraVenous Push Every 6 Hours 5. Polyethylene Glycol: 17 gram(s) Oral Daily Recent Lab Results: Results: I have reviewed these laboratory results: Renal Function Panel Trending View [id number] 06:57:00 13-Nov-2018 12:20:00 Glucose, Rnwot598 H 158 H NA143 140 K4.1 4.7 CL108 H 107 Bicarbonate, Serum26 23 Anion Gap, Serum13 15 BUN32 H 22 CREAT1.12 H 1.17 H GFR-Non Vmluakai82 A 45 A GFR- Msgcubdm47 A 54 A Calcium, Serum9.2 9.1 Phosphorus, Serum4.4 3.7 ALB3.7 3.7 Radiology Results: Results: CT T Spine and L Spine without Contrast [Nov 14 2018 - final] Impression: 1. 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 2. Tumor is also noted in the T9 and T11 vertebrae. 3. The left L5 pedicle has vague lucency with questionable cortical breakthrough along its superior margin suspicious for tumor; the spinal canal and lateral recesses are stenosed at this level secondary to degenerative changes and questionable soft tissue along the left ventral thecal sac which may represent tumor as well. MR is recommended for further evaluation. 4. Enlarged mediastinal and probably enlarged right hilar lymph nodes are present; the right hilum is difficult to evaluate due to consolidation and atelectasis in the right middle lobe. Enhanced CT is recommended for further evaluation. 5. Layering right pleural effusion. 6. There is questionable bowel wall thickening along the left side of the rectum. Direct visualization may be helpful for further evaluation. 7. The lateral recess and spinal canal stenoses on a degenerative basis are also noted elsewhere in the lumbar region. MRI Brain w/wo Contrast [Nov 14 2018 - final] Impression: No mass, hemorrhage or abnormal enhancement suspicious for metastatic disease is noted. The focal white matter hyperintensities are nonspecific and may be secondary to chronic microvascular ischemic, degenerative or other etiologies. Assessment and Plan: Assessment: Trish Hunt is a 73 year old female former smoker w/ PMHx significant for HTN, Impaired Fasting Glucose, Hyperlipidemia, Peripheral Neuropathy, Hypothyroidism, GERD, Morbid Obesity and Recent Spinal Cord Stimulator Implant who is transferred to [facility] 11/12/18 from [facility] after presenting with intractable progressive back pain with SOB and found on imaging to have a lung mass with adenopathy and suspected spinal metastasis for neurosurgical evaluation and further care. . PLAN: In Shared Visit with Dr. Neena Grullon 1) SUSPECTED LUNG MALIGNANCY: Former smoker. Reported SOB and chest pain with deep breath at [facility] presentation 11/11/18. A CT of the Chest showed Occlusion of the right middle bronchus with pleural effusion with suspected spinal metastasis. Pulmonary medicine and oncology were consulted with a Right Thoracentesis via U/S obtained 11/12/18 for 140 ml of fluid. The pleural fluid is reported to be exudative (cloudy, predominant monocytes (87%), TP: 2.5, LDH 500 (serum LDH 437), with culture and cytology pending. MRI of the brain today without lesions. Pulmonology consulted yesterday - follow [facility] Pleural C&S and Cytology - NPO after midnight for potential diagnostic bronchoscopy - hold Lovenox - PET-CT in a.m. 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 Presented to [facility] 11/11/18 with intractable progressive back pain radiating around waist in band of 2-3 weeks accompanied by SOB. Due to the pain she had the Spinal Cord Stimulator Implanted in August removed on 10/25/18 without improvement of pain. She has prior disc surgery L4-L5 several years back and has been asymptomatic from it. She denies tingling or numbness, focal weakness of any extremity, bowel incontinence. She does have chronic urinary urge incontinence which has come back after her spinal stimulator was recently removed. A CT Chest, Abdomen and Pelvis at [facility] showed a suspected Pathologic fracture of the T10 vertebral body with canal stenosis as well as additional vertebral lesions at T8, T9, and T11 suspicious for additional metastases. An MRI of the T spine was obtained and showed the lesion was not compressing the spine but was however in close proximity to the cord, and therefore she was given Decadron with request for transfer to [facility] for Neurosurgery evaluation. Neurosurgery consulted and did find evidence of cord compression. CT Thoracic and Lumbar Spine without contrast done at Neurosurgery request and some changes of lumbar CT noted as well. Neurosurgery notified and states fracture currently stable, but recommend MRI of entire spine. Given length of testing needed for such an exam, anesthesia assistance will be needed - await Pathology for # 1 - Physical Therapy consult - MRI of the C-Spine, T-Spine and L-Spine with / without contrast. with Anesthesia for sedation - MRI notified of need as well as anesthesia 3) BACK PAIN: intractable progressive back pain radiating around waist in band of 2-3 weeks accompanied by SOB. Due to the pain she had the Spinal Cord Stimulator Implanted in August removed on 10/25/18 without improvement of pain. She has prior disc surgery L4-L5 several years back and has been asymptomatic from it. She denies tingling or numbness, focal weakness of any extremity, bowel incontinence. Of note, the pain seems to be in a more lumbar distribution. The Oxycodone did not help her pain, but 0.2 mg IV Hydromorphone helps - CT Thoracic and Lumbar Spine without contrast at Neurosurgery request - schedule Acetaminophen 975 mg by mouth three times a day - discontinue Oxycodone - start Morphine 7.5 mg by mouth every 3 hours PRN pain to assess effect with plan to change to Morphine long acting if helpful - Hydromorphone 0.2 mg IV every 4 hours PRN breakthrough pain - Physical Therapy consult - Trial Pure-wick to decrease pain associated with frequent toileting 4) CONSTIPATION: r/t medication control for # 3. States take Miralax to assist - reports no BM, but states desires increased Miralax - continue Miralax twice a day and PRN - Miralax 17 gm extra dose today. - add Bisacodyl suppository daily PRN 5) NAUSEA AND VOMITING: Nurse reports this not related to Morphine, as started prior. Her bowel sounds were hypoactive this morning and now she has some abdominal fullness and belching with emesis observed. Could be r/t # 3, but concern for development of an ileus due to narcotic administration is a concern. - KUB - Fleet's enema - continue Ondansetron 4 mg IV every 6 hours PRN 6) SHLOMO: creatinine 1.2 post contrast with baseline 1.0 at [place].. Creatinine 1.1 today, but now having emesis and will be NPO after midnight for bronch - IV NS at 100 ml / hour - check renal function panel in a.m. 7) IMPAIRED FASTING GLUCOSE: Denies diagnosis of Diabetes. States was told had elevated blood glucose 20 years ago with Metformin initiated as preventive. 07/2018 Hgb A1C normal. Blood glucose elevated at 132 on a.m. labs - hold home Metformin ER - check fasting blood glucose in a.m. 8) HYPOTHYROIDISM: TSH 0.86 - continue home Levothyroxine 50 mcg daily 9) MORBID OBESITY: BMI 43 10) CODE STATUS: Discussed with patient. She presently desires full interventions at arrest, but would not desire prolonged life support - Full code 11) DVT PROPHYLAXIS: - hold Enoxaparin for bronchoscopy per Pulmonary request. 12) DISCHARGE DISPOSITION: Lives with . No home needs identified at present, but pain is presenting a challenge for ambulation - await PT evaluation. PCP: Dr. Harjinder Braswell [phone] Urology: Dr. Earnest Herrera Pharmacy: [facility] ([place]) [phone] Insurer: [employer] Medicare Family: / PO[employer] Healthcare - Robbie Hunt [phone] Dtr. / 1st Alt. [facility] - Annita Sin [phone] / [phone] Dtr. / 2nd Alt. [facility] - Dionne Read [phone] Signature/Cosignature/Attestation: Provider/Team Contact Info-Pager Miriam Carlos [facility] # [phone] Comments/ Additional Findings patient has back pain , will change the medication regime , she went for ct scan as requested by neurosurgery, it shows tumor extending from T10 severely stenoses the spinal canal and to lesser degree the right T9- 10 and T10-11 foramina, compressing and deforming the spinal cord (Bilsky type 3). I did talk to neurosurgery residents , they will like to get a level 2 mri of cervical , spine , thorasic , spine and lumbar spine . she denies any new weakness. tingling or numbness Patient is mo AAf laying on the bed without any acute distress Lungs clear to auscultation bilaterally S1, S2 heard rate and rhythm regular Abdomen is soft nondistended nontender Neurologically, alert, awake, moving all 4 extremities. bue , ble 4/5 , no drift , cranial nerve II to XII intact Appropriate mood and affect No pitting edema Skin no rashes 73 yea r old lady with H/O HTN, DMt2 with morbid obesity, hypothyroidism, HLD, presenting as transfer from [facility] after initially presenting there with subacute low back pain with imaging at OSH revealing R hilar mass with adenopathy and multiple spinal mets and T10 bipedicular lesion Metastatic Ca possible primary lung -CT chest/abd/pelvis, mri reports from OSH reviewed. Request Radiology for read and uploading images in PACs - PET Scan staging pending , MRI brain for staging -ve , ct l and thorasic spine shows compression at t10 , called neurosurgery and they are aware , as per them ordered a level 2 mri c , l , thorasic spine and they want a tissue diagnosis . if it is small cell they want radiation and if it is non small cell then they will do surgery. No steroids as of yet - will consult oncology once tissue diagnosis is back - Pulm consult for bronchoscopy & biopsy of right hilar mass, npo after midnight for bronch - F/U pleural fluid cytology from OSH - back pain , Tylenol 975mg Q8hrly scheduled, morphine 7.5 every 3 hours and hydromorphone every 4 hours for break through pain #HTN: Cont HCTZ Hold Losartan in the setting of SHLOMO #DM Hold metformin Mild sliding scale HBA1c requested #Hypothyroidism Cont. Synthroid. #HLD Lipitor continued #Renal: Cr 1.2, baseline 0.9 - improved , encourage oral intake , Repeat RFP mid morning draw DVT: SCDs, SQ Heparin, hold for biopsy tomorrow. Full Code f/u - mri c /t/l spine and inform neurosurgery for the results. Electronic Signatures: Nessa Carlos (ALIGNMENT SPECIALIST-GRIEVANCE MANAGER) (Signed 15-Nov-2018 00:17) Authored: Service, Subjective Data, Objective Data, Assessment and Plan, Signature/Cosignature/Attestation Neena Grullon) (Signed 14-Nov-2018 16:26) Authored: Signature/Cosignature/Attestation Last Updated: 15-Nov-2018 00:17 by Nessa Carlos (ALIGNMENT SPECIALIST-GRIEVANCE MANAGER) NR MRI BRAIN W/WO Observed: 11/14/2018 Status: F Source: [facility] 12:55 PM HOSPITALS REPOSITORY Patient Name: TRISH HUNT STUDY: NR MRI BRAIN W/WO CONTRAST; 11/14/2018 12:55 pm INDICATION: Signs/Symptoms: Lung mass with bone lesion suspicious for metastatsis - staging, Lie Flat: Yes, Pre Med: No. COMPARISON: None. ACCESSION NUMBER(S): [id number] ORDERING CLINICIAN: NESSA CARLOS TECHNIQUE: Axial T2, FLAIR, DWI, gradient echo T2 and sagittal and coronal T1 weighted images of brain were acquired. Post contrast T1 weighted images were acquired after administration of 20 mL gadobenate (Multihance) gadolinium based intravenous contrast. FINDINGS: CSF Spaces: The ventricles, sulci and basal cisterns are within normal limits. Parenchyma: There is no diffusion restriction abnormality to suggest acute infarct. The white matter has a few focal hyperintensities. No mass, hemorrhage or abnormal enhancement of the brain parenchyma is noted. There is no mass effect or midline shift. Paranasal Sinuses and Mastoids: Visualized paranasal sinuses and mastoid air cells are unremarkable. IMPRESSION: No mass, hemorrhage or abnormal enhancement suspicious for metastatic disease is noted. The focal white matter hyperintensities are nonspecific and may be secondary to chronic microvascular ischemic, degenerative or other etiologies. Electronically signed by: PHYSICIAN OLU RENAL FUNCTION PANEL Collected: 11/14/2018 Status: F Source: [facility] 6:57 AM HOSPITALS REPOSITORY TYPE CODE TESTS RESULT OUT OF RANGE REFERENCE UNITS LAB GLU(LOINC) 74 - 99 mg/dL High GLUCOSE 132 LAB SOD(LOINC) 136 - 145 mmol/L SODIUM 143 LAB K(LOINC) 3.5 - 5.3 mmol/L POTASSIUM 4.1 LAB CHLOR(LOIN 98 - 107 mmol/L C) High CHLORIDE 108 LAB BIC(LOINC) 21 - 32 mmol/L BICARBONATE 26 LAB ANGAP(LOIN 10 - 20 mmol/L C) ANION GAP 13 LAB UREA(LOINC 6 - 23 mg/dL ) High UREA NITROGEN 32 LAB CREA(LOINC 0.50 - 1.05 mg/dL ) High CREATININE 1.12 LAB GFRFN(LOIN >60 mL/min/1.7 C) 3m2 GFR-NON Abnormal AM. 47 LAB GFRAA(LOIN >60 mL/min/1.7 C) 3m2 GFR- Abnormal AM. 57 Result Comment: CALCULATIONS OF ESTIMATED GFR ARE PERFORMED USING THE MDRD STUDY EQUATION FOR THE IDMS-TRACEABLE CREATININE METHODS. CLIN CHEM 2007;53:766-72 LAB CA(LOINC) 8.6 - 10.6 mg/dL CALCIUM 9.2 LAB PHOS(LOINC) 2.5 - 4.9 mg/dL PHOSPHORUS 4.4 Result Comment: The performance characteristics of phosphorus testing in heparinized plasma have been validated by the individual laboratory site where testing is performed. Testing on heparinized plasma is not approved by the FDA; however, such approval is not necessary. LAB ALB(LOINC) 3.4 - 5.0 g/dL ALBUMIN 3.7 Performed By: #### RENAL #### [facility] [address] [place] [address] DAILY PROGRESS Observed: 11/14/2018 Status: COMPLETED Source: [facility] 12:01 AM HOSPITALS REPOSITORY Service: Neurosurgery Subjective Data: TRISH HUNT is a 73 year old Female who is Hospital Day # 2. Objective Data: Objective Information: T PRBPSpO2 [id number]/6895% Date/Time11/13 15: 15: 15: 15: 15:27 Range(36.3C - 36.8C ) (87 - 101 ) (18 - 18 ) (101 - 161 )/ (65 - 81 ) (91% - 95% ) Pain reported at 11/13 9:15: 7 Pain reported at 11/13 14:48: 8 Assessment and Plan: Assessment: Assessment: 73F with a history of HTN, HLD, DM, and a newly diagnosed hilar mass with b/l pleural effusions s/p pleuocentesis. I have personally reviewed the images, which include a CT, which shows a T10 bipedicular lesion c/f spinal mets, patient with nonfocal neurologic exam except for mechanical back pain. Plan - will need full oncologic workup and prognostication - neurosurgery available if needed, pending above Abiel Markham MD Resident Physician Department of Neurological Surgery [email or web address] Neurosurgery Pager: [phone] Personal Pager: [phone] Signature/Cosignature/Attestation: Attending AttestationI reviewed the resident/fellows documentation and discussed the patient with the resident/fellow. I agree with the resident/fellows medical decision making as documented in the residents note. Electronic Signatures: Huber Tamayo) (Signed 14-Nov-2018 10:21) Authored: Signature/Cosignature/Attestation Co-Signer: Service, Subjective Data, Objective Data, Assessment and Plan, Signature/Cosignature/Attestation Abiel Markham (Resident)) (Signed 13-Nov-2018 18:20) Authored: Service, Subjective Data, Objective Data, Assessment and Plan, Signature/Cosignature/Attestation Last Updated: 14-Nov-2018 10:21 by Huber Tamayo) CONSULT-PULMONOLOGY Observed: Status: COMPLETED Source: [facility] 11/13/2018 4:28 HOSPITALS REPOSITORY Service: Service: Pulmonology Consult: Consult requested by (Attending Name): Emil Reason: Evaluate for bronchoscopic biopsy History of Present Illness: HPI: 73 year old woman with HTN, hypothyroidism, DM presenting to [facility] 11/11 for 2 weeks of intracatable back pain radiating to the front of her abdomen. She was found to have T10 impending compression from mass and also right hilar mass and mediastinal adenopathy with a R pleural effusion. She underwent diagnostic thoracentesis 11/12 with 140cc of exudative fluid removed (cytology pending). She was transferred to on 11/12 for neurosurgical evaluation given the spine imaging findings. Patient reports she has been in her usual state of health prior to the onset of the back pain. Denies any history of asthma or COPD. Reports that she used to smoke but quit in 2012. Denies any known occupational exposures. Denies any shortness of breath, dyspnea on exertion, cough, hemoptysis. Denies any fever or chills. PMH: as above PSH: cholecystectomy, spinal stimulator for overactive bladder Fam hx: Mother--lung ca (second hand smoke), sister with lung ca (smoker) Social History: previous smoker--quit in 2012, denies any known occupational exposures to dust, asbestos, silica. 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 Allergies: sulfa drugs: Unknown codeine: Other lisinopril: Other Objective: Objective Information: T PRBPSpO2 [id number]/6895% Date/Time11/13 15: 15: 15: 15: 15:27 Range(36.3C - 36.8C ) (87 - 101 ) (18 - 18 ) (101 - 161 )/ (65 - 81 ) (91% - 95% ) Physical Exam: Constitutional: alert, in NAD on NC, pleasant, obese Eyes: no scleral icterus Respiratory/Thorax: diminished air entry BL, no crackles or wheezes Cardiovascular: S1 and S2 Extremities: no pedal edema Neurological: no focal deficits, moves all four limbs independently Skin: dry no rash Medications: Medications: Continuous Medications No continuous medications are active Scheduled Medications 1. Gadobenate Dimeglumine (MultiHance-Radiology Contrast): 22.64 mL IntraVenous Push Once 2. Heparin SubCutaneous: 5000 unit(s) SubCutaneous Every 8 Hours 3. hydroCHLOROthiazide: 12.5 mg Oral Daily 4. Levothyroxine: 50 microgram(s) Oral Daily 5. Polyethylene Glycol: 17 gram(s) Oral 2 Times a Day 6. Simvastatin: 20 mg Oral At Bedtime PRN Medications 1. HYDROmorphone Injectable: 0.2 mg IntraVenous Push Every 3 Hours 2. Ondansetron Injectable: 4 mg IntraVenous Push Every 6 Hours Radiology Results: Results: Chest CT 11/11/18 21:21 IMPRESSION: Multiple destructive osseous lesions are present concerning for metastatic disease. Probable associated cord compression at the T10 level. Pre and post contrast thoracic spine MRI is recommended when and if possible. Suggestion of right hilar mass on this limited noncontrast study with associated occlusion of the right middle lobe bronchus and right middle lobe consolidation and atelectasis. Consider PET/CT evaluation. Right pleural effusion. Diffuse mediastinal adenopathy. Abdomen/Pelvis CT 11/11/18 18:50 IMPRESSION: 1. 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 2. Right pleural effusion and atelectasis. 3. Collapse of the right middle lobe. 4. Borderline cardiomegaly. 5. No other evidence for acute intra-abdominal or pelvic abnormality. 6. Degenerative changes of the lumbar spine. 7. Atherosclerotic changes of the abdominal aorta. 8. Status post cholecystectomy and appendectomy MRI Thoracic Spine w/w/o Contrast: (11/12/18) Incidental note is made of multilevel degenerative changes of the visualized cervical spine. Normal kyphosis of the thoracic spine. There is no substantial scoliosis. T1-2, T2-3, T3-4, T4-5, T5-6, T6-7, T7-8, T8-9, T9-10, T10- 11, T11-12: There is abnormal signal within the T10 vertebral body corresponding to the abnormality identified in recent CT. This has abnormally increased T2 signal and decreased T1 signal. This appears to involve the vertebral bodyof T10 as well as the spinous processes of T9 and T10. There is also involvement of the pedicles of T10. There is encroachment upon the thecal sac by the tumor without MRI evidence for compression of the spinal cord at this level though the encroachment and acquired canal stenosis is considered moderate. There is focus of abnormal enhancement identified within the T9 vertebral body. There is also focus of abnormal signal within the T8 vertebral body which also enhances probably representing additional metastasis. There is abnormal enhancement of a T11 spinous process and right T11 pedicle after intravenous administration contrast. There is diffuse abnormal enhancement of the T10 vertebral body and posterior elements. There appears to be hemangioma versus intraosseous lipoma within T7. Other remaining thoracic vertebral bodies have generally normal height, alignment and signal characteristics. Normal visualized thoracic cord. The conus medullaris is not definitely identified on the current study. . IMPRESSION: 1. Abnormal appearance to the T10 vertebral body what probably represents mild pathologic compression fracture and extensive metastatic involvement,s described. There is moderate canal stenosis at this level without definite cord impingement. 2. Additional metastases are visible at T8, T9 and T11. 3. Right-sided pleural effusion and right-sided hilar mass with postobstructive atelectasis. Assessment: 73 year old female with new onset back pain presenting to OSH, found to have spinal lesions, impending cord compression at T10 (by imaging) and R hilar mas with mediastinal adenopathy. Pulmonary consult for tissue diagnosis. New Hilar Mass and adenopathy with spinal lesions, likely stage IV disease -most likely a primary lung lesion given smoking history and presentation although cannot exclude other malignancy -consider PET scan for staging -will review imaging(uploaded into PACS) with attending tomorrow and plan for possible bronchoscopic biopsy for tissue diagnosis next week. -f/u cytology from thoracentesis at [facility]. Even if positive, will likely need more tissue for genetic analysis. Will continue to follow, call consult pager [phone] with any questions Signature/Cosignature/Attestation: Attending AttestationI saw and evaluated the patient. I personally obtained the almonte and critical portions of the history and physical exam or was physically present for almonte and critical portions performed by the resident/fellow. I reviewed the resident/fellows documentation and discussed the patient with the resident/fellow. I agree with the resident/fellows medical decision making as documented in the residents note. I personally evaluated the patient (as noted in the above attestation) on 13-Nov-2018 Electronic Signatures: Jane Lewis) (Signed 03-Dec-2018 22:17) Authored: Assessment/Recommendations, Signature/Cosignature/Attestation Co-Signer: Service, History of Present Illness, Allergies, Objective, Assessment/Recommendations Linda Gomez (Fellow)) (Signed 13-Nov-2018 16:52) Authored: Service, History of Present Illness, Allergies, Objective, Assessment/Recommendations Last Updated: 03-Dec-2018 22:17 by Jane Lewis) HISTORY AND PHYSICAL Observed: 11/13/2018 Status: COMPLETED Source: [facility] 2:13 HOSPITALS REPOSITORY History of Present Illness: Admission Reason: Suspected Lung Cancer with Spinal Metastasis HPI: Trish Hunt is a 73 year old female former smoker w/ PMHx significant for HTN, Impaired Fasting Glucose, Hyperlipidemia, Peripheral Neuropathy, Hypothyroidism, GERD, Morbid Obesity and Recent Spinal Cord Stimulator Implant for Overactive Bladder 08/2018 with removal 10/2018 due to persistent back pain who was transferred to [facility] 11/12/18 from [facility] after presenting there on 11/11/18 with intractable progressive back pain radiating around waist in band of 2-3 weeks accompanied by SOB with pain increased by deep breath. Due to the pain she had the Spinal Cord Stimulator Implanted in August removed on 10/25/18 without improvement of pain. A CT of the Chest, Abdomen and Pelvis was obtained and showed Occlusion of the right middle bronchus with pleural effusion and a suspected Pathologic fracture of the T10 vertebral body with canal stenosis as well as additional vertebral lesions at T8, T9, and T11 suspicious for additional metastases. At baseline, she is ambulatory though has had some limitation of movement due to back pain. She has prior disc surgery L4-L5 several years back and has been asymptomatic from it. She reports delay seeking treatment for this back pain as she thought it was a muscle cramp. She denies tingling or numbness, focal weakness of any extremity, bowel incontinence. She does have chronic urinary urge incontinence which has come back after her spinal stimulator was recently removed. She felt her SOB was related to the pain. Denies chest pain, palpitations, fever, chills, N, V, dizziness, or lightheadedness. Pulmonary medicine and oncology were consulted at [place] with a Right Thoracentesis via U/S obtained 11/12/18 for 140 ml of fluid with culture and cytology pending. An MRI of the T spine was obtained and showed the lesion was not compressing the spine but was however in close proximity to the cord, and therefore she was given Decadron with request for transfer to [facility] under Oncology for further evaluation by Neurosurgery. Given lack of tissue diagnosis presently, she is admitted to Medicine for further evaluation. MEDICAL / SURGICAL HISTORY: - Hypertension - Impaired Fasting Glucose - Hyperlipidemia - Hypothyroidism - GERD - Peripheral Neuropathy - Morbid Obesity - Overactive Bladder * Spinal Cord Stimulator Implantation 08/2018 (removed 11/02) - Tonsillectomy - Hemorrhoidectomy - Cholecystectomy - L4-L5 Decompression 1999 Neurosurgery was consulted and did not find evidence of cord compression. A CT of the Thoracic and Lumbar Spine is requested. Pulmonology consulted. 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 Independent in ADL's Does not use assistive device. Reports smoking socially (less than a pack a day) for 20 years and quit 10 years ago Shares a bottle of wine (2 drinks) with nearly daily Has 3 children. Daughter Annita Sin is her 1st Alternate POA Healthcare and Daughter Dionne Read is her 2nd Alternate POA Healthcare. Allergies: sulfa drugs: Unknown Intolerances: codeine: Nausea/Vomiting Medications Prior to Admission: Metformin ER 500 mg po daily Losartan/Hydrochlorothiazide 50-12.5 mg po daily Hydrochlorothiazide 12.5 mg po daily Simvastatin [Zocor] 20 mg po at bedtime Potassium Chloride (Klor-Con)10 meq po daily Levothyroxine [Synthroid] 50 mcg po daily Multivitamin po daily Polyethylene Glycol (Miralax) 17 gm po daily. Review of Systems: Constitutional: NEGATIVE: Fever, Chills, Anorexia, Weight Loss, Malaise Eyes: NEGATIVE: Blurry Vision, Drainage, Redness, Vision Loss/ Change ENMT: NEGATIVE: Nasal Discharge, Nasal Congestion, Ear Pain, Mouth Pain, Throat Pain Respiratory: POSITIVE: Shortness of Breath; NEGATIVE: Dry Cough, Productive Cough, Wheezing Cardiac: POSITIVE: Chest Pain, Dyspnea on Exertion; NEGATIVE: Orthopnea, Palpitations, Syncope Gastrointestinal: POSITIVE: Constipation; NEGATIVE: Nausea, Vomiting, Diarrhea, Abdominal Pain Genitourinary: POSITIVE: Flank Pain, Frequency; NEGATIVE: Discharge, Dysuria, Hematuria; COMMENTS: Urge incontinence Musculoskeletal: POSITIVE: Pain, Swelling; NEGATIVE: Decreased ROM, Weakness; COMMENTS: chronic dependent edema Neurological: NEGATIVE: Dizziness, Confusion, Headache, Seizures, Syncope Psychiatric: NEGATIVE: Anxiety, Hallucinations, Sleep Changes Skin: NEGATIVE: Mass, Pain, Pruritus, Rash, Ulcer Endocrine: NEGATIVE: Sweat, Polyuria, Thirst Hematologic/Lymph: NEGATIVE: Easy Bleeding, Night Sweats, Petechiae Allergic/Immunologic: NEGATIVE: Anaphylaxis, Itchy/ Teary Eyes, Itching, Sneezing, Swelling Objective: Objective Information: T PRBPSpO2 [id number]/8093% Date/Time11/13 12: 12: 12: 12: 12:01 Range(36.3C - 36.8C ) (87 - 101 ) (18 - 18 ) (110 - 161 )/ (65 - 81 ) (91% - 93% ) Weights 11/13 4:47: Weight in kg (Weight (kg)) 113.2 11/13 4:47: Weight in lbs ((lbs)) 249.6 11/12 23:18: BMI (kg/m2) (BMI (kg/m2)) 42.868 Pain reported at 11/13 9:15: 7 Pain reported at 11/13 8:35: 9 Physical Exam: Constitutional: Alert, oriented, obese, lying in bed in no distress Eyes: [place], Sclera white, no discharge ENMT: Mucous membranes moist, No lesions seen Head/Neck: Normocephalic, Neck supple, no apparent injury Respiratory/Thorax: Respirations easy and unlabored with breath sounds clear to ausculation bilaterally. Mild pain on palpation right posterior lower thorax Cardiovascular: Heart with regular rhythm, S1, S2, no appreciable murmur Gastrointestinal: Abdomen obese, non-distended, active bowel sounds, soft, non-tender Musculoskeletal: ROM intact, no joint swelling, normal strength Extremities: No cyanosis or wounds. 1+ edema of lower legs and feet bilaterally Neurological: Alert and oriented x3, intact senses and motor responses with 5/5 strength of arms and legs bilaterally Psychological: Appropriate mood and behavior Skin: Warm and dry, no lesions, no rashes Medications: Medications: Scheduled Medications 1. Acetaminophen: 975 mg Oral Every 8 Hours 2. Gadobenate Dimeglumine (MultiHance-Radiology Contrast): 22.64 mL IntraVenous Push Once 3. Heparin SubCutaneous: 5000 unit(s) SubCutaneous Every 8 Hours 4. hydroCHLOROthiazide: 12.5 mg Oral Daily 5. Levothyroxine: 50 microgram(s) Oral Daily 6. Simvastatin: 20 mg Oral At Bedtime PRN Medications 1. HYDROmorphone Injectable: 0.2 mg IntraVenous Push Every 3 Hours 2. Naproxen: 500 mg Oral 2 Times a Day 3. Ondansetron Injectable: 4 mg IntraVenous Push Every 6 Hours 4. Polyethylene Glycol: 17 gram(s) Oral Daily Recent Lab Results: Results: I have reviewed these laboratory results: Renal Function Panel 13-Nov-2018 12:20:00 ResultValue Glucose, Serum 158 H NA 140 K 4.7 CL 107 Bicarbonate, Serum 23 Anion Gap, Serum 15 BUN 22 CREAT 1.17 H GFR-Non 45 A GFR- 54 A Calcium, Serum 9.1 Phosphorus, Serum 3.7 ALB 3.7 Urinalysis 13-Nov-2018 04:32:00 ResultValue Color, Urine YELLOW Reference Range: STRAW,YELLOW Appearance, Urine CLEAR Specific [place], Urine 1.017 pH, Urine 6.0 Protein, Urine NEGATIVE Glucose, Urine NEGATIVE Blood, Urine NEGATIVE Ketones, Urine NEGATIVE Bilirubin, Urine NEGATIVE Urobilinogen, Urine <2.0 Nitrite, Urine NEGATIVE Leukocyte Esterase, Urine NEGATIVE Complete Blood Count + Differential 13-Nov-2018 00:41:00 ResultValue White Blood Cell Count 7.9 Nucleated Erythrocyte Count 0.0 Red Blood Cell Count 4.70 HGB 14.2 HCT 46.0 MCV 98 MCHC 30.9 L PLT 308 RDW-CV 13.2 Neutrophil % 88.4 Immature Granulocytes % 1.0 Lymphocyte % 8.1 Monocyte % 2.4 Eosinophil % 0.0 Basophil % 0.1 Neutrophil Count 7.02 H Lymphocyte Count 0.64 L Monocyte Count 0.19 Eosinophil Count 0.00 Basophil Count 0.01 Comprehensive Metabolic Panel 13-Nov-2018 00:41:00 ResultValue Glucose, Serum 161 H NA 142 K 4.0 CL 103 Bicarbonate, Serum 29 Anion Gap, Serum 14 BUN 16 CREAT 1.21 H GFR-Non 43 A GFR- 52 A Calcium, Serum 10.1 ALB 4.3 ALKP 48 T Pro 7.5 T Bili 0.4 Alanine Aminotransferase, Serum 12 Aspartate Transaminase, Serum 23 Coagulation Screen 13-Nov-2018 00:41:00 ResultValue Prothrombin Time, Plasma 11.8 International Normalized Ratio, Plasma 1.1 Activated Partial Thromboplastin Time 33 Lactate Dehydrogenase, Serum 13-Nov-2018 00:41:00 ResultValue LDH 401 H Thyroid Stimulating Hormone, Serum 13-Nov-2018 00:41:00 ResultValue Thyroid Stimulating Hormone, Serum 0.86 Radiology Results: Results: [facility] reports: Abdomen/Pelvis CT 11/11/18 IMPRESSION: 1. 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 2. Right pleural effusion and atelectasis. 3. Collapse of the right middle lobe. 4. Borderline cardiomegaly. 5. No other evidence for acute intra-abdominal or pelvic abnormality. 6. Degenerative changes of the lumbar spine. 7. Atherosclerotic changes of the abdominal aorta. 8. Status post cholecystectomy and appendectomy Chest CT 11/11/18 IMPRESSION: Multiple destructive osseous lesions are present concerning for metastatic disease. Probable associated cord compression at the T10 level. Pre and post contrast thoracic spine MRI is recommended when and if possible. Suggestion of right hilar mass on this limited noncontrast study with associated occlusion of the right middle lobe bronchus and right middle lobe consolidation and atelectasis. Consider PET/CT evaluation. Right pleural effusion. Diffuse mediastinal adenopathy. MRI Thoracic Spine w/w/o Contrast: (11/12/18) IMPRESSION: 1. Abnormal appearance to the T10 vertebral body what probably represents mild pathologic compression fracture and extensive metastatic involvement,s described. There is moderate canal stenosis at this level without definite cord impingement. 2. Additional metastases are visible at T8, T9 and T11. 3. Right-sided pleural effusion and right-sided hilar mass with postobstructive atelectasis. Assessment and Plan: Assessment: Trish Hunt is a 73 year old female former smoker w/ PMHx significant for HTN, Impaired Fasting Glucose, Hyperlipidemia, Peripheral Neuropathy, Hypothyroidism, GERD, Morbid Obesity and Recent Spinal Cord Stimulator Implant who is transferred to [facility] 11/12/18 from [facility] after presenting with intractable progressive back pain with SOB and found on imaging to have a lung mass with adenopathy and suspected spinal metastasis for neurosurgical evaluation and further care. . PLAN: In Shared Visit with Dr. Neena Grullon 1) SUSPECTED LUNG MALIGNANCY: Former smoker. Reported SOB and chest pain with deep breath at [facility] presentation 11/11/18. A CT of the Chest showed Occlusion of the right middle bronchus with pleural effusion with suspected spinal metastasis. Pulmonary medicine and oncology were consulted with a Right Thoracentesis via U/S obtained 11/12/18 for 140 ml of fluid. The pleural fluid is reported to be exudative (cloudy, predominant monocytes (87%), TP: 2.5, LDH 500 (serum LDH 437), with culture and cytology pending. - follow [facility] Pleural C&S and Cytology - consult Pulmonology for potential diagnostic bronchosopy - MRI brain for potential brain metastasis 2) T10 PATHOLOGIC FRACTURE: Likely a metastasis r/t # 1. Presented to [facility] 11/11/18 with intractable progressive back pain radiating around waist in band of 2-3 weeks accompanied by SOB. Due to the pain she had the Spinal Cord Stimulator Implanted in August removed on 10/25/18 without improvement of pain. She has prior disc surgery L4-L5 several years back and has been asymptomatic from it. She denies tingling or numbness, focal weakness of any extremity, bowel incontinence. She does have chronic urinary urge incontinence which has come back after her spinal stimulator was recently removed. A CT Chest, Abdomen and Pelvis at [facility] showed a suspected Pathologic fracture of the T10 vertebral body with canal stenosis as well as additional vertebral lesions at T8, T9, and T11 suspicious for additional metastases. An MRI of the T spine was obtained and showed the lesion was not compressing the spine but was however in close proximity to the cord, and therefore she was given Decadron with request for transfer to [facility] for Neurosurgery evaluation. Neurosurgery consulted and did find evidence of cord compression. - CT Thoracic and Lumbar Spine without contrast at Neurosurgery request - await Pathology for # 1 - Physical Therapy consult 3) BACK PAIN: intractable progressive back pain radiating around waist in band of 2-3 weeks accompanied by SOB. Due to the pain she had the Spinal Cord Stimulator Implanted in August removed on 10/25/18 without improvement of pain. She has prior disc surgery L4-L5 several years back and has been asymptomatic from it. She denies tingling or numbness, focal weakness of any extremity, bowel incontinence. Of note, the pain seems to be in a more lumbar distribution - CT Thoracic and Lumbar Spine without contrast at Neurosurgery request - schedule Acetaminophen 975 mg by mouth three times a day - start Oxycodone 5 mg by mouth every 4 hours PRN pain - Hydromorphone 0.2 mg IV PRN breakthrough pain - Physical Therapy consult 4) CONSTIPATION: r/t medication control for # 3. States take Miralax to assist - increase Miralax frequency to twice a day and PRN - add Bisacodyl suppository daily PRN 5) SHLOMO: creatinine 1.2 post contrast with baseline 0.9. Reports adequate oral intake - discontinue IV fluid - check renal function panel in a.m. 6) IMPAIRED FASTING GLUCOSE: Denies diagnosis of Diabetes. States was told had elevated blood glucose 20 years ago with Metformin initiated as preventive. 07/2018 Hgb A1C normal. Blood glucose elevated at 161 post Decadron dosing - hold home Metformin ER - check fasting blood glucose in a.m. 7) HYPOTHYROIDISM: TSH 0.86 - continue home Levothyroxine 50 mcg daily 8) MORBID OBESITY: BMI 43 9) CODE STATUS: Discussed with patient. She presently desires full interventions at arrest, but would not desire prolonged life support - Full code 10) DVT PROPHYLAXIS: - change Heparin every 8 hours to Enoxaparin bid 11) DISCHARGE DISPOSITION: Lives with . No home needs identified at present - await PT evaluation. PCP: Dr. Harjinder Braswell [phone] Urology: Dr. Earnest Herrera [facility] [phone] Insurer: [employer] Medicare Family: / POA Healthcare - Robbie Hunt [phone] Dtr. / 1st Alt. POA - Annita Faulkner Poneto [phone] / [phone] Dtr. / 2nd Alt. POA - Dionne Read [phone] Signatures/Attestation/Certification: Provider/Team Contact Info-Pager Miriam Carlos [facility] # [phone] Note Initiator: Do you need to request a cosigner, attestation and/or certificationI am solely responsible for all documentation captured within this clinical document, including critical care time, if applicable. The attending physician signature below is only for admission certification purposes. Comments/ Additional Findings 73 year old F with H/O HTN, DMt2 with morbid obesity, hypothyroidism, HLD, former smoker, recently diagnosed lung mass with adenopathy and spinal mets presenting as transfer from [facility] for neurosurgery evaluation and further care. Course at [facility] patient was having back pain for almost six months . Per records, she presented to the ER at [facility] on 11/11/18 with intractable back pain/ waist worsening in last 2-3-week described as progressively worsening continuous band like pain that goes across her lower abdomen to her back, 10/[address] of the chest & abdomen was obtained and showed multiple osseous lesions, probably cord compression at T10 and lung masses with adenopathy, and pleural effusion. Pulmonary medicine and oncology were consulted. Thoracentesis was obtained fluid was exudative (cloudy, predominant monocytes (87%), TP: 2.5, LDH 500, pathology pending. MRI of the T spine was obtained and showed the lesion was not compressing the spine but was however in close proximity to the cord, warranting evaluation by neuro surgery. Patient was accepted to by Dr. Mckenzie Rush/Onc for transfer. At baseline, patient is ambulatory though has had some limitation of movement due to back pain. She has prior disc surgery L4-L5 several years back and has been asymptomatic from it. She confirmed the above history. She delayed seeking treatment for this back pain as she though it was a muscle cramp. She denies tingling or numbness, focal weakness of any extremity, bowel incontinence. She does have chronic urinary urge incontinence which has come back after her spinal stimulator was recently removed. Denies fever, chills, N, V, dizziness, lightheadedness. No chest pain, sob, palpitations. [facility] reports: Abdomen/Pelvis CT 11/11/18 18:50 IMPRESSION: 1. 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 2. Right pleural effusion and atelectasis. 3. Collapse of the right middle lobe. 4. Borderline cardiomegaly. 5. No other evidence for acute intra-abdominal or pelvic abnormality. 6. Degenerative changes of the lumbar spine. 7. Atherosclerotic changes of the abdominal aorta. 8. Status post cholecystectomy and appendectomy Chest CT 11/11/18 21:21 IMPRESSION: Multiple destructive osseous lesions are present concerning for metastatic disease. Probable associated cord compression at the T10 level. Pre and post contrast thoracic spine MRI is recommended when and if possible. Suggestion of right hilar mass on this limited noncontrast study with associated occlusion of the right middle lobe bronchus and right middle lobe consolidation and atelectasis. Consider PET/CT evaluation. Right pleural effusion. Diffuse mediastinal adenopathy. MRI Thoracic Spine w/w/o Contrast: (11/12/18) 1. Abnormal appearance to the T10 vertebral body what probably represents mild pathologic compression fracture and extensive metastatic involvement,s described. There is moderate canal stenosis at this level without definite cord impingement. 2. Additional metastases are visible at T8, T9 and T11. 3. Right-sided pleural effusion and right-sided hilar mass with postobstructive atelectasis. PMH - as above PSH: -Cholecystectomy, Implantation and removal of spinal stimulator for overactive bladder. Removed on 10/29/18, lower back surgery FH: Lung Ca in mother and sister SH: Occasional etoh Former smoker No illicit drugs Independent ADLs and iADLs Allergies - codine, lisinopril and sulfa drugs ros - all system reviewed and are negative except as described in history of present illness meds Albuterol Aerosols [Ventolin Aerosols] 2.5 mg INHALATION Q4H PRN PRN Hydrochlorothiazide 12.5 mg PO DAILY Levothyroxine [Synthroid] 50 mcg PO DAILY Metformin HCl [Metformin HCl ER] 500 mg PO DAILY Multivit with Calcium,Iron,Min [Multiple Vitamins For Women] 1 each PO DAILY Polyethylene Glycol 3350 [Miralax] 17 gm PO DAILY Potassium Chloride [Klor-Con M10] 10 meq PO DAILY Simvastatin [Zocor] 20 mg PO QHS Cholecalciferol (Vitamin D3) [D3-2000] 2,000 unit PO DAILY Losartan/Hydrochlorothiazide [Losartan-Hctz 50-12.5 mg Tab] 1 tab PO DAILY along with hctz 12.5 mg by mouth Patient is mo AAf laying on the bed without any acute distress Pupils reactive Oral mucosa moist Lungs clear to auscultation bilaterally S1, S2 heard rate and rhythm regular Abdomen is soft nondistended nontender Neurologically, alert, awake, moving all 4 extremities. bue , ble 4/5 , no drift , cranial nerve II to XII intact Appropriate mood and affect No pitting edema Skin no rashes 73 yea r old lady with H/O HTN, DMt2 with morbid obesity, hypothyroidism, HLD, presenting as transfer from [facility] after initially presenting there with subacute low back pain with imaging at OSH revealing R hilar mass with adenopathy and multiple spinal mets and T10 bipedicular lesion Metastatic Ca possible primary lung -CT chest/abd/pelvis, mri reports from OSH reviewed. Request Radiology for read and uploading images in PACs - PET Scan &/or MRI brain for staging, consult oncology once tissue diagnosis is back - Pulm consult for bronchoscopy & biopsy of right hilar mass - F/U pleural fluid cytology from OSH - Neurosurgery consulted for t-10 lesion, follow up final recs. No acute intervention as per them for now . no cord compression so no sterois . - back pain , Tylenol 975mg Q8hrly scheduled, Naproxen PRN for mod pain, Dilaudid PRN for severe #HTN: Cont HCTZ Hold Losartan in the setting of SHLOMO #DM Hold metformin Mild sliding scale HBA1c requested #Hypothyroidism Cont. Synthroid. #HLD Lipitor continued #Renal: Cr 1.2, baseline 0.9 - improved , encourage oral intake , Repeat RFP mid morning draw DVT: SCDs, SQ Heparin Full Code Attending Provider Inpatient Certification StatementI certify this patients need for inpatient care based on the above documentation including; the order to admit as inpatient, the anticipated length of stay, diagnosis, problem list and plan of care, and discharge plan. Electronic Signatures: Nessa Carlos (ALIGNMENT SPECIALIST-GRIEVANCE MANAGER) (Signed 13-Nov-2018 23:29) Authored: History of Present Illness, Comorbidities, Family History, Social History, Allergies, Medications Prior to Admission, Review of Systems, Objective, Assessment and Plan, Signatures/Attestation/Certification Neena Grullon) (Signed 13-Nov-2018 16:34) Authored: Signatures/Attestation/Certification Last Updated: 13-Nov-2018 23:29 by Nessa Carlos (ALIGNMENT SPECIALIST-GRIEVANCE MANAGER) RENAL FUNCTION PANEL Collected: 11/13/2018 Status: F Source: [place] 12:20 PM HOSPITALS REPOSITORY TYPE CODE TESTS RESULT OUT OF REFERENCE UNITS RANGE LAB GLU(LOINC) 74 - 99 mg/dL High GLUCOSE 158 LAB SOD(LOINC) 136 - 145 mmol/L SODIUM 140 LAB K(LOINC) 3.5 - 5.3 mmol/L POTASSIUM 4.7 Result Comment: MILD HEMOLYSIS DETECTED. The result may be falsely elevated due to hemolysis or other interferents. Clinical correlation is recommended. Repeat testing may be considered. LAB CHLOR(LOINC) 98 - 107 mmol/L CHLORIDE 107 LAB BIC(LOINC) 21 - 32 mmol/L BICARBONATE 23 LAB ANGAP(LOINC) 10 - 20 mmol/L ANION GAP 15 LAB UREA(LOINC) 6 - 23 mg/dL UREA NITROGEN 22 LAB CREA(LOINC) 0.50 - mg/dL High 1.05 CREATININE 1.17 LAB GFRFN(LOINC) >60 mL/min/1.73 m2 GFR-NON Abnormal AM. 45 LAB GFRAA(LOINC) >60 mL/min/1.73 m2 GFR- Abnormal AM. 54 Result Comment: CALCULATIONS OF ESTIMATED GFR ARE PERFORMED USING THE MDRD STUDY EQUATION FOR THE IDMS-TRACEABLE CREATININE METHODS. CLIN CHEM 2007;53:766-72 LAB CA(LOINC) 8.6 - 10.6 mg/dL CALCIUM 9.1 LAB PHOS(LOINC) 2.5 - 4.9 mg/dL PHOSPHORUS 3.7 Result Comment: The performance characteristics of phosphorus testing in heparinized plasma have been validated by the individual laboratory site where testing is performed. Testing on heparinized plasma is not approved by the FDA; however, such approval is not necessary. LAB ALB(LOINC) 3.4 - 5.0 g/dL ALBUMIN 3.7 Performed By: #### RENAL #### [facility] [address] [place] [address] CLINICAL EVENT Observed: 11/13/2018 Status: UNK Source: [facility]IVERSITY NOTE-NEUROSURGERY UPDATE 9:18 AM HOSPITALS REPOSITORY Event: Topic: neurosurgery update Details: Imaging reviewed. Given degree of osseous involvement, risk of spinal instability is high. However, needs tissue diagnosis and prognosis/staging prior to any consideration of operative intervention. -Agree with pulm consult for biopsy of hilar mass -Will continue to follow up for pleural fluid cytology -Please obtain dedicated CT T and L-spine w/o contrast Provider / Team Contact Information: Provider/Team Contact Info-Pager Number: [phone] Electronic Signatures: Deborah Espana (Resident)) (Signed 13-Nov-2018 09:20) Authored: Event, Provider / Team Contact Information Last Updated: 13-Nov-2018 09:20 by Deborah Espana (Resident)) CONSULTATION Observed: 11/13/2018 Status: F Source: [place] 5:46 AM [facility] REPOSITORY [facility] Medical Records Department [address] [place] [address] Consultation 11/12/18 1051 MR#: [id number] Acct: [id number] Name: TRISH HUNT Rep #: [id number] : 1945 73 From: Nickolas Giles MD PCP: Harjinder Braswell MD Status: DIS IN Y Location: [place] [address] Problem List (1) Back pain of thoracolumbar region Status: Acute (2) Metastatic cancer Status: Suspected (3) HTN (hypertension) Status: Chronic (4) Diabetes Status: Chronic Qualifiers: Diabetes mellitus type: type 2 Diabetes mellitus moth exterminator insulin use: without moth exterminator use (5) Hyperlipidemia associated with type 2 diabetes mellitus Status: Chronic (6) Morbid (severe) obesity due to excess calories Status: Chronic (7) Hypothyroidism Status: Chronic Reason for Consult Date of Consultation: 11/12/18 Reason for Consultation: Abnormal CT History of Present Illness: The patient is a 73 year old F, with medical history listed below, who presented to [facility] on 11/11/2018 secondary to progressive, irretractable back pain lasting for 2-3 weeks. Patient reportedly had pain around her beltline that she described as gallbladder pain. Patient described this is 10 out of 10 and exacerbated by worsening. Patient did not have any radiculopathy, nausea, vomiting, diarrhea or melena reported. Patient had recently had a bladder stimulator removed as she thought this was the cause of her back pain. Given that it did not improved or resolved following removal, patient went to the ER for evaluation. In the emergency room, patient had a CT scan of the abdomen and pelvis showing bony metastasis to T10 and T11 with partial collapse of T10. Patient also was noted to have a right pleural effusion and collapse of the right middle lobe. Patient was admitted to the floor for control of intractable back pain. On my evaluation, patient did appear comfortable. Patient denies any previous history of lung pathology, but does report a 36-62-hqir-year smoking history. Patient reports no exposure to asbestos or TB that she is aware of. Patient denies any unintentional weight loss. Patient states she did have a colonoscopy last year that was normal. Patient has had abnormal mammograms in the past, but is not required any biopsies. Patient feels her last mammogram was 1-2 years ago. Review of systems otherwise negative x10 systems. Past Medical History Past Medical History (Chronic Problems): Chronic Problems (Last Updated 11/12/18 @ 01:06 by Arthur Coreas MD) HTN (hypertension) (Chronic) Diabetes (Chronic) Hyperlipidemia associated with type 2 diabetes mellitus (Chronic) Morbid (severe) obesity due to excess calories (Chronic) Hypothyroidism (Chronic) Medical History: Medical History (Last Updated 11/12/18 @ 01:06 by Arthur Coreas MD) Hypothyroidism E03.9 Allergies Sulfa (Sulfonamide Antibiotics) Allergy (Verified 10/28/18 14:36) Unknown sulfamethoxazole [From Septra] Allergy (Verified 10/28/18 14:36) Unknown trimethoprim [From Septra] Allergy (Verified 10/28/18 14:36) Unknown codeine Adverse Reaction (Verified 10/28/18 14:36) Nausea/Vom/Diarrhea hydrocodone [From Vicodin] Adverse Reaction (Verified 10/28/18 14:36) Nausea/Vom/Diarrhea lisinopril Adverse Reaction (Verified 10/28/18 14:36) cough Home Medications: Ambulatory Orders Medication Instructions Recorded Albuterol Aerosols [Ventolin 2.5 mg INHALATION Q4H PRN PRN 08/11/18 Surgical History: cholecystectomy, - - Implantation and removal of spinal stimulator at the back; lower back surgery. Smoking Status: Former smoker Alcohol: Occasional - *Family History Maternal Family History: Family History (Last Updated 11/12/18 @ 01:07 by Arthur Coreas MD) Father Heart problem Mother Lung cancer Review of Systems Comment: See HPI Objective: CT scan of the chest was personally reviewed and I agree with formal interpretation. Patient does have narrowing of the right middle lobe bronchus and right pleural effusion. Significant mediastinal lymphadenopathy appreciated. - Physical Exam General: Alert, Oriented x3, Cooperative, No apparent distress, - - Morbidly obese. Appears stated age. Speaking in full sentences. HEENT: Atraumatic, PERRLA, EOMI, Normocephalic, - - No scleral icterus or injection noted. Glasses in place. Oral: Moist Mucosa, No Gingival or Mucosal Lesions/ Ulcerations Neck: Supple, No JVD, No Nodes, Trachea Midline Lungs: No rhonchi, No wheeze, No rales, Diminished - Anterior right, - - Symmetric expansion. Slight dullness to percussion at the right base Cardiovascular: Regular rate, Regular Rhythm, Normal S1, Normal S2, No murmurs, No rub noted, No Gallop Abdomen: Bowel Sounds Present, Soft, Non Tender, Non-Distended, Obese Extremities: No clubbing, No cyanosis, Edema - Trace lower extremity Skin: No rashes, No breakdown Musculoskeletal: No Tenderness to Palpation of Joints or Extremities Lymphatic: No Cervical, Supraclavicular, or Inguinal Adenopathy Neurological: Cranial nerves II-XII grossly intact, Neuro grossly intact, Motor Exam 5/5 strength throughout Psych/Mental Status: Alert and oriented to time, place, person, mood and affect Vital Signs Temp Pulse Resp BP Pulse Ox 36.8 C 110 H 18 166/86 H 95 11/12/18 10:30 11/12/18 10:30 11/12/18 10:30 11/12/18 10:30 11/12/18 10:30 Oxygen Flow Rate (L/min) 2 Oxygen Delivery Method Nasal Cannula Weight: 115.3 kg Body Mass Index (BMI) 43.6 Intake and Output for Last 24 Hours Intake Total 50 / 50 Balance 50 / 50 Laboratory Tests Past 24 Hrs WBC 10.5 Clinical Impression(s) from Imaging Studies Abdomen/Pelvis CT 11/11/18 18:50 IMPRESSION: 1. 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 2. Right pleural effusion and atelectasis. 3. Collapse of the right middle lobe. 4. Borderline cardiomegaly. 5. No other evidence for acute intra-abdominal or pelvic abnormality. 6. Degenerative changes of the lumbar spine. 7. Atherosclerotic changes of the abdominal aorta. 8. Status post cholecystectomy and appendectomy N.B. : The above information has been verbally conveyed by Adam Arguello DO to Sonia Arredondo MD, on 11/11/2018 21:22:07 (ET). Electronically Signed: Adam Arguello DO at 21:23 EST Tel [phone], Service support , Chest CT 11/11/18 21:21 IMPRESSION: Multiple destructive osseous lesions are present concerning for metastatic disease. Probable associated cord compression at the T10 level. Pre and post contrast thoracic spine MRI is recommended when and if possible. Suggestion of right hilar mass on this limited noncontrast study with associated occlusion of the right middle lobe bronchus and right middle lobe consolidation and atelectasis. Consider PET/CT evaluation. Right pleural effusion. Diffuse mediastinal adenopathy. Electronically Signed: Harjinder Egan MD at 23:49 EST Tel , Service support , Assessment/Plan All Active Problems (Last Updated 11/12/18 @ 01:06 by Arthur Coreas MD) Back pain of thoracolumbar region (Acute) Disseminated malignancy (Acute) Pleural effusion, right (Acute) Mass of middle lobe of right lung (Acute) RECOMMENDATIONS: 1. Obtain diagnostic/therapeutic thoracentesis 2. Aggressive pain control per primary service 3. Okay to discharge if no complications from thoracentesis 4. Follow-up next week in the office to review test results IMPRESSIONS: 1. Abnormal CT scan Clinical suspicion for malignancy leading to current findings. Patient has requested diagnostic workup. Patient does have a right-sided pleural effusion with what appears to be osteolytic invasion of the T10/T11 vertebrae. A thoracentesis should be relatively safe and may be diagnostic. Also discussed bronchoscopy and a CT-guided biopsy of spinal mass as other options. After review of the risks, benefits and alternatives, patient has agreed to proceed with a thoracentesis. Patient can follow-up in our office as an outpatient next week to review the results. If nondiagnostic, further workup could be suggested. Bronchoscopy does appear to be a viable option given right middle lobe findings. Awaiting cytology would not be necessary and patient could be discharged if no complications from thoracentesis from a pulmonary perspective. 2. Irretractable back pain Patient with probable malignant invasion of T10/T11. Defer to patient's hospitalist service for options. Patient may benefit from a pain management consult as it would be expected that this could continue throughout the patient's remaining life. 3. Morbid obesity/diabetes/hypertension/hypercholesterolemia/hypothyroidism/advanced age Complicates care, management, recovery and prognosis. Patient can continue with baseline medications from my perspective. Code Visit Inpatient E AND M: [id number] Init Hosp L2 11/13/18 0546 <Electronically signed by Nickolas Giles MD> Date Nickolas Giles MD Cosigner Signature (if applicable): Date CC: Nickolas Giles MD; Arthur Gates MD; Harjinder Braswell MD Signed DISCHARGE PLANNING Observed: 11/13/2018 Status: UNK Source: UNIVERSITY NOTE 4:53 AM HOSPITALS REPOSITORY Discharge Needs Assessment: Discharge Planning Assessment [id number] Discharge Planning Assessment Completed byMariposa FINNEY OB Information: Reason for admission this visitlate complication Patient Learning: Factors that Impact Ability to Learnhearing problems(1) Other Factors: Functional Screen: In the recent/past 2-4 weeks, patient or family have noticedno issues that require a rehabilitation consult at this time(2) Discharge Planning: Discharge Plannin11/12/2018 2300 pt arrived from [facility]. vital signs stable. pt admitted for mass found on lung and neuro consult. pt lives at home with . pt accompanied by granddaughter. pt plans to return to home with no home care after treatment and testing. Linda Kline RN 11/15/18 Preschool Teacher Assistant Note 0471 Met with patient's family regarding discharge planning and home going needs. Per family, they live at home with spouse. Patient's primary support person during hospitalization is Robbie Hunt [phone]. Bother daughters provided contact information as well. Nikki Read( [phone]) and Annita Sin( [phone]). Patient states they are independent with ADL's and ambulation. Denies the use of assistive devices. Denies a history of falls. Denies current home care, or need for home care. Patient states they feel safe at home. Denies transportation/social work/financial needs. Denies any spiritual/cultural/religous considerations regarding discharge planning. Denies supplemental home O2 but has a nebulizer. Patient states they are able to afford/obtain medications. Patient uses [facility] for prescriptions. Patient's PCP is Dr. Braswell in [place], [place]. Verified patient's address and contact information. Discharge disposition is unknown pending Cance workup. Family states they will provide transportation home at time of discharge. Will continue to follow and will update accordingly. Janeth Mayo RNdirector of adult epilepsy Coordinator pager# [phone] 11/19/17 12:23pm SOCIAL WORK NOTE WEB APPLICATIONS ARCHITECT spoke with the patient's GRIEVANCE MANAGER on this date who reported that the patient is getting surgery on 11/23. WEB APPLICATIONS ARCHITECT will follow up as needed. CANDY Childers, WEB APPLICATIONS ARCHITECT pager [phone] Transfer Note 11/24/18 0745 Patient transfered to LT8 room 8066 from the OR. Family at bedside. She came up with a DETONATOR ASSEMBLER pump which is patent, and her drains are intact. Will continue to monitor. Anna Santiago RN 11/24/18 4:18pm SOCIAL WORK NOTE WEB APPLICATIONS ARCHITECT spoke with the patient's GRIEVANCE MANAGER who reported that the patient should be medically ready mid next week. WEB APPLICATIONS ARCHITECT will follow up as neede.CANDY Ruano, WEB APPLICATIONS ARCHITECT pager [phone] 11/26/18 11:05am SOCIAL WORK NOTE WEB APPLICATIONS ARCHITECT spoke with the patient on this date about SNF placement. WEB APPLICATIONS ARCHITECT was told by the patient that the was looking into the [facility] or [facility]. WEB APPLICATIONS ARCHITECT reported that they were not on the insurance list but that she would try them. WEB APPLICATIONS ARCHITECT provided the patient with the insurance list to look over as well. WEB APPLICATIONS ARCHITECT spoke with the patient's GRIEVANCE MANAGER who reported that the patient could be medically ready on Thursday. WEB APPLICATIONS ARCHITECT will follow up as needed. REVISED 4:14PM WEB APPLICATIONS ARCHITECT heard back from both facilities and was told that they both currently do not have a bed available. [facility] asked this WEB APPLICATIONS ARCHITECT to check in on Thursday. WEB APPLICATIONS ARCHITECT will follow up as needed. CANDY Childers, WEB APPLICATIONS ARCHITECT pager [phone] 11/29/18 12:26pm SOCIAL WORK NOTE WEB APPLICATIONS ARCHITECT spoke with the patient's GRIEVANCE MANAGER on this date to discuss discharge. WEB APPLICATIONS ARCHITECT was told that the is transitioning to oxycodone and needs an xray done. WEB APPLICATIONS ARCHITECT was told that the patient will be ready, pending pain, on Thursday. WEB APPLICATIONS ARCHITECT will follow up to see if [facility] has a bed. WEB APPLICATIONS ARCHITECT will also discuss having the patient pick other options just in case. WEB APPLICATIONS ARCHITECT will follow up as needed. CANDY Childers, SHARON pager [phone] 11/30/18 9:25am SOCIAL WORK NOTE (LATE ENTRY) WEB APPLICATIONS ARCHITECT spoke with the patient and daughter yesterday afternoon (11/29) and explained to them that there are currently no beds available at [facility]. Patient's daughter reported that the only facility that they would be willing to go to is [facility]. WEB APPLICATIONS ARCHITECT reported that she would call them again to see if they have beds. WEB APPLICATIONS ARCHITECT called and left a message. WEB APPLICATIONS ARCHITECT will follow up as needed. CANDY Childers, SHARON pager [phone] 12/01/18 4:37pm SOCIAL WORK NOTE WEB APPLICATIONS ARCHITECT spoke with the patient on this date about SNF placement. WEB APPLICATIONS ARCHITECT explained to the patient that [facility] is unable to accept the patient at this time due to the fact that they do not have a bed available. WEB APPLICATIONS ARCHITECT explained this to the patient and that she wouldnt be able to sit in the hospital to wait for a bed to open. WEB APPLICATIONS ARCHITECT provided the patient with another list of facilities. Patient asked for referrals to be sent to SNFs around [place]. WEB APPLICATIONS ARCHITECT explained that she would do that, but also asked the patient to pick SNFs on the list that was provided as well. WEB APPLICATIONS ARCHITECT will follow up as needed. CANDY Childers, SHARON pager [phone] 12/02/18 2:26pm SOCIAL WORK NOTE WEB APPLICATIONS ARCHITECT spoke with the patient and her daughter who reported that they would like to try for a one time contract with [facility]. WEB APPLICATIONS ARCHITECT will follow up as needed. REVISED 4:14PM SOCIAL WORK NOTE WEB APPLICATIONS ARCHITECT spoke with the patient and daughter and let them know that [facility] reported that the patient would need to pay 50% of the cost since she has no out of network benefits. Patient reported that she wouldnt want to go there. WEB APPLICATIONS ARCHITECT provided the patient with an insurance list from [facility] as a searching point and [place]. WEB APPLICATIONS ARCHITECT also called [facility] who reported that they do not have a unit there. WEB APPLICATIONS ARCHITECT will follow up as needed. Kierra Duque, ASSISTANT PROFESSOR OF EDUCATION, WEB APPLICATIONS ARCHITECT pager [phone] 12/03/18 8:39am SOCIAL WORK NOTE WEB APPLICATIONS ARCHITECT spoke with the patient and daughter last night 12/02 who reported that they would like the patient to go to [facility]. WEB APPLICATIONS ARCHITECT sent a referral. WEB APPLICATIONS ARCHITECT called this morning and the admissions reported that they will look over the information to see if they can accept. WEB APPLICATIONS ARCHITECT asked them to start precert if they are able to accept. WEB APPLICATIONS ARCHITECT will follow up as needed. REVISED 5:01PM SOCIAL WORK NOTE WEB APPLICATIONS ARCHITECT spoke with the patient's facility who reported that they obtained precert. WEB APPLICATIONS ARCHITECT set up transport for 10pm. WEB APPLICATIONS ARCHITECT completed 7000. WEB APPLICATIONS ARCHITECT will follow up as needed. Kierra Duque, ASSISTANT PROFESSOR OF EDUCATION, WEB APPLICATIONS ARCHITECT pager [phone] 12/04/18 10:11 Social Work Note Late entry from 04:35. SW received page from [facility] stating patient still had not been picked up for transport scheduled for 12/03 at 22:00. [facility] spoke with [facility] automotive fleet supervisor Mahad. Per [facility], service was overwhelmed with emergent cases and provided updated time of 08:00. SW also spoke with [facility] per family request. Company unable to provide transport on 12/04/18. SW will continue to follow. REVISED 08:27- SW spoke with [facility]. [facility] provided updated ETA at 10:00. SW will continue to follow. Leann Stovall ASSISTANT PROFESSOR OF EDUCATION, WEB APPLICATIONS ARCHITECT [id number] Discharge Note December 04, 2018 1236 pt. discharge to [place] [facility]hab [facility]. Report called davidson Cohen @ [phone], Gold form faxed to [phone].Buster Bose RN Electronic Signatures: Linda Kline (RN) (Signed 13-Nov-2018 04:58) Authored: Discharge Planning Note Janeth Mayo (RN) (Signed 15-Nov-2018 15:17) Authored: Discharge Planning Note Buster Bose (SEVERO) (Signed 04-Dec-2018 12:38) Authored: Discharge Planning Note Kierra Duque (OSMAN) (Signed 03-Dec-2018 17:01) Authored: Discharge Planning Note Leann Stovall (OSMAN) (Signed 04-Dec-2018 10:19) Authored: Discharge Planning Note Anna Santiago (RN) (Signed 24-Nov-2018 07:49) Authored: Discharge Planning Note Last Updated: 04-Dec-2018 12:38 by Buster Bose (CN) References: 1. Data Referenced From 5. Education 11/12/2018 11:35 PM 2. Data Referenced From Admission Risk Screen - Adult 11/12/2018 11:35 PM TH CHEST 1 VIEW Observed: 11/13/2018 Status: F Source: [facility]STAFF 4:53 AM HOSPITALS REPOSITORY Patient Name: TRISH HUNT STUDY: TH CHEST 1 VIEW; 11/13/2018 4:53 am INDICATION: Signs/Symptoms: Right pleural effusion, adenopathy, lung ca. COMPARISON: None. ACCESSION NUMBER(S): [id number] ORDERING CLINICIAN: SAGE RAPHAEL FINDINGS: CARDIOMEDIASTINAL SILHOUETTE: Cardiomediastinal silhouette is normal in size and configuration. LUNGS: Right infrahilar nodular opacity. Correlate with underlying mass or adenopathy. No pneumothorax. Small right-sided pleural effusion. ABDOMEN: No remarkable upper abdominal findings. BONES: No acute osseous changes. IMPRESSION: 1. Right infrahilar masslike opacity. Correlate with underlying parenchymal mass or adenopathy. Small right-sided pleural effusion and correlate with any concern for malignant effusion. Electronically signed by: Dashawn MARCOS MD URINALYSIS Collected: 11/13/2018 Status: F Source: [facility]STAFF 4:32 AM HOSPITALS REPOSITORY TYPE CODE TESTS RESULT OUT OF REFERENCE UNITS RANGE LAB COLU(LOINC STRAW,YELLOW ) COLOR YELLOW LAB APPRU(LOIN CLEAR C) APPEARANCE CLEAR LAB SPGRU(LOIN 1.005 - 1.035 C) SPECIFIC GRAVITY 1.017 LAB YANCY(LOINC) 5.0 - 8.0 pH 6.0 LAB PROTU(LOIN NEGATIVE mg/dL C) PROTEIN NEGATIVE LAB GLUCU(LOIN NEGATIVE mg/dL C) GLUCOSE NEGATIVE LAB BLDU(LOINC NEGATIVE ) BLOOD NEGATIVE LAB KETU(LOINC NEGATIVE mg/dL ) KETONES NEGATIVE LAB BILIU(LOIN NEGATIVE C) BILIRUBIN NEGATIVE LAB UROU2(LOIN 0.0 - 1.9 mg/dL C) UROBILINOGEN <2.0 LAB NITRU(LOIN NEGATIVE C) NITRITE NEGATIVE LAB LEUKU(LOIN NEGATIVE C) LEUKOCYTE ESTERASE NEGATIVE Performed By: #### UA #### [facility] [address] [place] [address] EMR ADDON Collected: 11/13/2018 Status: F Source: [facility]STAFF 3:43 AM HOSPITALS REPOSITORY TYPE CODE TESTS RESULT OUT OF REFERENCE UNITS RANGE LAB EMRAC(LOIN C) ADDON CONFIRMATION REQUEST REC'D Performed By: #### EMRAD #### NO LOCATION NEEDED CONSULT-NEUROSURGERY Observed: Status: COMPLETED Source: FLAGSTAFF 11/13/2018 2:12 AM HOSPITALS REPOSITORY Service: Service: Neurosurgery Consult: Consult requested by (Attending Name): Dr. Rincon (Heme/Onc) Reason: spine mass History of Present Illness: HPI: History of Present Illness: 73 morbidly-obese female with a history of HTN, HLD, hypoT4 DM, former smoker and a newly diagnosed hilar mass with b/l pleural effusions s/p pleurocentesis. Pt has been having 2 wks of R flank pain, but held off on being evaluated until after the holidays. Initially evaluated at [facility]. Neurosurgery consulted for spinal mets. Course at [facility] Per records, she presented to the ER at [facility] on 11/11/18 with intractable back pain/ waist pain of 2-3-week duration, described as progressively worsening continuous band like pain that goes across her lower abdomen to her back, 10/[address] of the chest & abdomen was obtained and showed multiple osseous lesions, probably cord compression at T10 and lung masses with adenopathy, and pleural effusion. Pulmonary medicine and oncology were consulted. Thoracentesis was obtained fluid was exudative (cloudy, predominant monocytes (87%), TP: 2.5, LDH 500, pathology pending. MRI of the T spine was obtained and showed the lesion was not compressing the spine but was however in close proximity to the cord, warranting evaluation by neuro surgery. Patient was accepted to by Dr. Rincon - Hem/Onc for transfer. At baseline, patient is ambulatory though has had some limitation of movement due to back pain. She has prior disc surgery L4-L5 several years back and has been asymptomatic from it. She confirmed the above history. She delayed seeking treatment for this back pain as she though it was a muscle cramp. She denies tingling or numbness, focal weakness of any extremity, bowel incontinence. She does have chronic urinary urge incontinence which has come back after her spinal stimulator was recently removed. Denies fever, chills, N, V, dizziness, lightheadedness. No chest pain, sob, palpitations. Past Medical History: as above Past Surgical History: as above Family History: as above Social History: negative Medications: see patient's chart Allergies: none Review of Symptoms: all other systems negative Neurological: Alert and oriented to name, place, and year Cranial nerves II-XII intact, PERRL, EOMI, VFF No pronator drift, neg Hoffmanns BicepTricepWflWexGrip Intr [id number] [id number] [id number] Sensation grossly intact Normoreflexic, no clonus, no Babinski No dysmetria or dysdiadochokinesia Constitutional: appears stated age, well-developed, and cooperative with exam Psychological: appropriate mood and behavior Head: atraumatic, normocephalic, no obvious step-offs or scalp lacerations, no wound dehiscence Eyes: no periorbital ecchymoses, sclera anicteric, PERRL, EOMI, VFF ENT: no CSF otorrhea or hemotympanum, hearing intact, no CSF rhinorrhea or epistaxis, MMM Neck: neck supple, no apparent injury, no bruits, no JVD, trachea midline Cardiovascular: RRR, normal S1 and S2, no MRG, radial and pedal pulses 2+ bilaterally Pulmonary: no acute respiratory distress, patent airways, sufficient chest rise, CTAB Gastrointestinal: non-distended, soft, non-tender to superficial and deep palpation Skin: warm without lesions, rashes, or ecchymoses, no wound dehiscence, erythema, or active drainage Musculoskeletal: normal ROM, no joint swelling Allergies: codeine: Other lisinopril: Other sulfa drugs: Unknown Assessment: Assessment: 73F with a history of HTN, HLD, DM, and a newly diagnosed hilar mass with b/l pleural effusions s/p pleuocentesis. I have personally reviewed the images, which include a CT, which shows a T10 bipedicular lesion c/f spinal mets, patient with nonfocal neurologic exam except for mechanical back pain. Plan -will need full oncologic workup and prognostication -neurosurgery available if needed, pending above. Abiel Markham MD Resident Physician Department of Neurological Surgery [email or web address] Neurosurgery Pager: [phone] Personal Pager: [phone] Signature/Cosignature/Attestation: Attending AttestationI saw and evaluated the patient. I personally obtained the almonte and critical portions of the history and physical exam or was physically present for almonte and critical portions performed by the resident/fellow. I reviewed the resident/fellows documentation and discussed the patient with the resident/fellow. I agree with the resident/fellows medical decision making as documented in the residents note. I personally evaluated the patient (as noted in the above attestation) on 13-Nov-2018 Comments/ Additional Findings Patient with probable metastatic spine lesions. Bilsky 1c - 2 evidence of tumor involvement, with obvious thoracic pedicle involvement at the junctional level. Patient is 5/5 in AE, sensory intact, good rectal tone. Has mechanical back pain. Has known overactive bladder, had her stimulator removed 2 weeks ago. No bowel incontinence. Recommend full oncologic workup, for diagnosis as well as prognostication. Further recs pending the above. Electronic Signatures: Huber Tamayo) (Signed 13-Nov-2018 14:56) Authored: Service, Assessment/Recommendations, Signature/Cosignature/Attestation Co-Signer: Service, History of Present Illness, Allergies, Assessment/Recommendations, Signature/Cosignature/Attestation Abiel Markham (Resident)) (Signed 13-Nov-2018 03:31) Authored: Service, History of Present Illness, Allergies, Assessment/Recommendations, Signature/Cosignature/Attestation Last Updated: 13-Nov-2018 14:56 by Huber Tamayo) CBC AND DIFFERENTIAL Collected: 11/13/2018 Status: F Source: [facility]STAFF 12:41 AM HOSPITALS REPOSITORY TYPE CODE TESTS RESULT OUT OF REFERENCE UNITS RANGE LAB WBCR(LOINC 4.4 - 11.3 x10E9/L ) WBC 7.9 LAB NRBC(LOINC 0.0-0.0 /100 WBC ) NUCLEATED RBC 0.0 LAB RBCCT(LOIN 4.00 - 5.20 x10E12/L C) RBC 4.70 LAB HGB(LOINC) 12.0 - 16.0 g/dL HGB 14.2 LAB HCT(LOINC) 36.0 - 46.0 % HCT 46.0 LAB MCV(LOINC) 80 - 100 fL MCV 98 LAB MCHC2(LOIN 32.0 - 36.0 g/dL C) Low MCHC 30.9 LAB PLTCT(LOIN 150 - 450 x10E9/L C) PLT 308 LAB RDWCV(LOIN 11.5 - 14.5 % C) RDW-CV 13.2 LAB NEUT(LOINC 40.0 - 80.0 % ) % NEUTROPHIL 88.4 LAB IG(LOINC) 0.0 - 0.9 % % AUTOMATED 1.0 IMMATURE GRAN Result Comment: Percent differential counts (%) should be interpreted in the context of the absolute cell counts (cells/L). LAB LYMPH(LOINC) 13.0 - 44.0 % % LYMPHOCYTE 8.1 LAB MONO(LOINC) 2.0 - 10.0 % % MONOCYTE 2.4 LAB EOS(LOINC) 0.0 - 6.0 % % EOSINOPHIL 0.0 LAB BASO(LOINC) 0.0 - 2.0 % % BASOPHIL 0.1 LAB #NEUT(LOINC) 1.60 - 5.50 x10E9/L NEUTROPHIL High 7.02 LAB #LYMP(LOINC) 0.80 - 3.00 x10E9/L Low LYMPHOCYTE 0.64 LAB #MONO(LOINC) 0.05 - 0.80 x10E9/L MONOCYTE 0.19 LAB #EOS(LOINC) 0.00 - 0.40 x10E9/L EOSINOPHIL 0.00 LAB #BASO(LOINC) 0.00 - 0.10 x10E9/L BASOPHIL 0.01 Performed By: #### CBCDF #### [facility] [address] [place] [address] COAGULATION SCREEN Collected: 11/13/2018 Status: F Source: [facility]STAFF 12:41 AM HOSPITALS REPOSITORY TYPE CODE TESTS RESULT OUT OF REFERENCE UNITS RANGE LAB PT(LOINC) 9.7 - 12.7 sec PROTHROMBIN TIME 11.8 Result Comment: Note new reference range as of 09/07/2018. LAB INR(LOINC) 0.9 - 1.1 PT, INR 1.1 LAB APTT(LOINC) 28 - 38 sec APTT 33 Result Comment: Note new reference range as of 09/07/2018. THE APTT IS NO LONGER USED FOR MONITORING UNFRACTIONATED HEPARIN THERAPY. FOR MONITORING HEPARIN THERAPY, USE THE HEPARIN ASSAY. Performed By: #### COAGS #### [facility] [address] [place] [address] LDH Collected: 11/13/2018 Status: F Source: [facility]STAFF 12:41 AM HOSPITALS REPOSITORY TYPE CODE TESTS RESULT OUT OF RANGE REFERENCE UNITS LAB LDH(LOINC) 84 - 246 U/L High LDH 401 Performed By: #### LDH #### [facility] [address] [place] [id number] COMPREHENSIVE PANEL Collected: 11/13/2018 Status: F Source: [place] 12:41 HOSPITALS REPOSITORY TYPE CODE TESTS RESULT OUT OF RANGE REFERENCE UNITS LAB GLU(LOINC) 74 - 99 mg/dL High GLUCOSE 161 LAB SOD(LOINC) 136 - 145 mmol/L SODIUM 142 LAB K(LOINC) 3.5 - 5.3 mmol/L POTASSIUM 4.0 LAB CHLOR(LOIN 98 - 107 mmol/L C) CHLORIDE 103 LAB BIC(LOINC) 21 - 32 mmol/L BICARBONATE 29 LAB ANGAP(LOIN 10 - 20 mmol/L C) ANION GAP 14 LAB UREA(LOINC 6 - 23 mg/dL ) UREA NITROGEN 16 LAB CREA(LOINC 0.50 - 1.05 mg/dL ) High CREATININE 1.21 LAB GFRFN(LOIN >60 mL/min/1.7 C) 3m2 GFR-NON Abnormal AM. 43 LAB GFRAA(LOIN >60 mL/min/1.7 C) 3m2 GFR- Abnormal AM. 52 Result Comment: CALCULATIONS OF ESTIMATED GFR ARE PERFORMED USING THE MDRD STUDY EQUATION FOR THE IDMS-TRACEABLE CREATININE METHODS. CLIN CHEM 2007;53:766-72 LAB CA(LOINC) 8.6 - 10.6 mg/dL CALCIUM 10.1 LAB ALB(LOINC) 3.4 - 5.0 g/dL ALBUMIN 4.3 LAB AP(LOINC) 33 - 136 U/L ALKALINE PHOSPHATASE 48 LAB TP(LOINC) 6.4 - 8.2 g/dL TOTAL PROTEIN 7.5 LAB AST(LOINC) 9 - 39 U/L AST 23 LAB TBILI(LOINC) 0.0 - 1.2 mg/dL BILIRUBIN,TOTAL 0.4 LAB ALT(LOINC) 7 - 45 U/L ALT 12 Result Comment: Patients treated with Sulfasalazine may generate falsely decreased results for ALT. Performed By: #### CMP #### [facility] [address] [place] [id number] TSH Collected: 11/13/2018 Status: F Source: [place] 12:41 AM HOSPITALS REPOSITORY TYPE CODE TESTS RESULT OUT OF RANGE REFERENCE UNITS LAB TSH2(LOINC) 0.44 - 3.98 mIU/L TSH 0.86 Result Comment: TSH testing is performed using different testing methodology at [facility] than at other [facility]. Direct result comparisons should only be made within the same method. . Patients receiving more than 5 mg/day of biotin may have interference in test results. A sample should be taken no sooner than eight hours after previous dose. Contact [phone] for additional information. Performed By: #### TSH2 #### [facility] [address] [place] [id number] ADMISSION RISK SCREEN Observed: 11/12/2018 Status: UNK Source: [facility] - ADULT 11:35 PM HOSPITALS REPOSITORY Allergies: Allergies: sulfa drugs: Unknown codeine: Other lisinopril: Other Patient Verification: New W ID Band Applied in my Departmentyes Patient Identity Verified Bypatient ID Band FULL Name, include Middle, spelling matches patient's ID used for verificationyes ID Band Matches Patient ID used for Verficationyes ID Band MRN Matches EMR MRNyes Advance Directive: Advance Directive Medicalyes Advance Directive typeLiving Will Living Will AvailabilityLiving Will not available now Living Will [id number] Falls Screen: Type of Assessmentadmission Moderate Risk Factorsnursing judgment (specify) Risk for Injury Associated with Fallnone Fall Risk Conclusionmoderate falls risk with low risk for associated injury [place] Safety InterventionsWDL *orient to call system *instruct to call for assistance before getting out of bed *non-slip footwear when patient is out of bed *call aleman in reach *personal items and telephone in reach *physically safe environment (no spills or clutter) *bed in lowest position with wheels locked *appropriate side rails in place *room/bathroom lighting operational, light cord in reach *appropriate signage on door, call aleman in reach, personal items and telephone in reach Family Violence Screen: Are you or have you been threatened or abused physically, emotionally, or sexually by anyoneno Do you feel UNSAFE going back to the place where you are livingno Clinical assessment: Are there any apparent signs of injuries/behaviors that could be related to abuse/neglectno Social Service Consult for abuse/neglect needed this visitno Functional screen: Functional Screen: In the recent/past 2-4 weeks, patient or family have noticedno issues that require a rehabilitation consult at this time Learning Assessment (Patient): Patient is Able to be Assessed for Learningyes Factors Influencing Readiness to Learnpain Factors that Impact Ability to Learnhearing problems Devices/Methods Used to Communicateglasses Learning Preferencesverbal instruction; individual instruction; written material Cultural Considerationsnone Developmental Considerationsnone Religion Considerationsnone Learning Assessment (Other Learner): Other learner availableno Suicide/Depression Screen: During the past month, have you often been bothered by feeling down, depressed or hopelessno During the past month, have you often had little interest or pleasure in doing thingsno Have you had any thoughts of harming yourselfno Have you had any thoughts of harming anyone elseno Adult Nutrition Screen: Have you recently lost weight without tryingno Have you been eating poorly because of a decreased appetiteno MST Score0 RiskMST = 0 or 1 Not at risk. Eating well with little or no weight loss Nutrition Consult needed this visitno Can Patient Participate in Room Serviceyes Patient requires Paper Dishes/Plastic Utensilsno Pain Screen: Pain Scalenumerical 0-10 Pain Scale Educationteaching provided Current Pain Level4 = Moderate Acceptable Pain Level5 = Moderate Expression of Pain (nonverbal)none Chronic Painno Spiritual Screen: Are there any cultural, spiritual, muslim practices/values/needs that are important for us to knowno CAGE: Is this an injured patient at a Trauma Center ([facility]): no Vaccinations: Vaccination - Influenza Vaccination Screen: Is it flu season (between and )Yes Screening for identified contraindications to influenza vaccinationpatient already received vaccine this season Vaccination - Pneumonia Vaccination Screen: Patient has received a previous pneumonia vaccine:yes Solis: Skin - Solis Scale: Solis: Sensory Perception (response to environment)(3) slightly limited Solis: Moisture (degree skin exposed to moisture)(4) rarely moist Solis: Activity (ability to walk)(3) walks occasionally Solis: Mobility (amount/control of body movement)(3) slightly limited Solis: Nutrition (quality of food intake)(3) adequate Solis: Friction and Shear(3) no apparent problem Solis: Score19 Significant Indicatiors: Significant Indicators: Complete Pressure Injury: Pressure Injury Present on Admissionno Electronic Signatures: iLnda Kline (RN) (Signed 13-Nov-2018 00:13) Authored: Admission Risk Screens, Vaccinations, Solis, Pressure Injury Last Updated: 23-Nov-2018 21:58 by Anna Santiago (RN) PATIENT PROFILE - Observed: 11/12/2018 Status: UNK Source: [place] [facility] 11:18 PM [facility]IT[facility] Profile: Initial Info: How to be AddressedBetty Spoken Language PreferredEnglish Are you currently using the Personal Electronic Health Record or [email or web address] Are you interested in learning more about [facility] for the management of your healthdeclined Stated Reason for Admissioncancer in lungs Arrived [facility] Medications Brought to Hospitalno General Health: Weight in kg113.2 kilogram(s) Weight in hwp025.6 pound(s) Height in feet5 feet Height in inches4 inch(es) Height in cm162.5 centimeter(s) BMI (kg/m2)42.868 square meter Weight Methodactual (measured) Scale Typestanding Height Methodstated RSP Based Care: How would you like to participate in your carewants to be involved and notified about what is going on What is the number one concern for you during this hospitalizationgetting better What is the most important thing we can do to support you during this hospitalizationhelp me get better Is there anything we need to know to best care for youno Substance: Current or Former Substance Use never: Cigarette/Tobacco, e-Cigarette/Vaping, Alcohol, Street Drugs Health Mgmt: Symptoms/Conditions Managed at [facility] Relationship/Environ: Primary Source of Support/Comfortspouse; child(wiley) Lives Withspouse Living Arrangementshouse Resource/Environmental Concernsnone Anticipated [place] Services Anticipated at Transitionnone Significant IndicatorsComplete Information Review: Allergies, Home Meds and Significant Events have been Reviewed and Verified with Patient/Familyno ALLERGY, INTOLERANCE, ADVERSE EVENT: Allergies: codeine: Drug, Other, Active lisinopril: Drug, Other, Active sulfa drugs: Drug Category, Unknown, Active Electronic Signatures: Linda Kline (RN) (Signed 13-Nov-2018 04:40) Authored: Profile, Additional Information Last Updated: 13-Nov-2018 04:40 by Linda Kline (RN) DISCHARGE SUMMARY Observed: 11/12/2018 Status: F Source: [place] 5:52 PM [facility] REPOSITORY [facility] Medical Records Department [address] [place] [address] Discharge Summary 11/12/18 1724 MR#: [id number] Acct: [id number] Name: TRISH HUNT Rep #: [id number] : 1945 73 From: Michael ROSS PCP: Harjinder Braswell MD Status: ADM IN Y Location: [facility] [id number] <Michael Cason - Last Filed: 11/12/18 17:24> Discharge Date and Diagnosis - Problem List Patient Problems: Active and Suspected Problems (Last Updated 11/12/18 @ 01:06 by Arthur Coreas MD) Metastatic cancer (Suspected) Back pain of thoracolumbar region (Acute) Disseminated malignancy (Acute) Pleural effusion, right (Acute) Mass of middle lobe of right lung (Acute) Date of Admission: 11/11/18 Date of Discharge: 11/12/18 - Primary Discharge Diagnosis Active and Suspected Problems (Last Updated 11/12/18 @ 01:06 by Arthur Coreas MD) Metastatic cancer (Suspected), suspect lung primary source Exudative pleural effusion Spinal mets, 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 Back pain of thoracolumbar region (Acute) Pleural effusion, right (Acute) Intractable back pain 2/2 t10 lesion DMt2 HTN HLD GERD Hypothyroidism - Secondary Discharge Diagnosis Chronic Problems (Last Updated 11/12/18 @ 01:06 by Arthur Coreas MD) HTN (hypertension) (Chronic) Diabetes (Chronic) Hyperlipidemia associated with type 2 diabetes mellitus (Chronic) Morbid (severe) obesity due to excess calories (Chronic) Hypothyroidism (Chronic) Hospital Course and Treatment Imaging Results: 11/12/18 11:33 MRI Thoracic [Spine Thoracic W/WO Contrast] [MRI] Urgent 11/13/18 05:55 CXR [Chest PA and Lateral] [RAD] AM (NON MEDS) Consults: Pulm - [facility] - Pra Operations: None Procedures: 2-D Echocardiogram Summary of Care Provided: Hospital Course: The patient is a 73 year old F with a pmhx of HTN, DMt2 with morbid obesity, hypothyroidism, HLD, former smoker, who presented to the ER with intractable back pain/ waist pain, that was thought to be related to a bladder stimulator that was recently removed. A CT of the chest was obtained and showed multiple osteous lesions, probably cord compression at T10 and lung masses with adenopathy, and pleural effusion. She was admitted to the PCU for suspected metastatic cancer and intractable pain. Pulmonary medicine and oncology were consulted. Thoracentesis was obtained and was exudative - pathology is pending. As this was newly found and path is pending we do not have a confirmed cytology at this point. MRI of the T spine was obtained and showed the lesion was not compressing the spine but was however in close proximity to the cord, warranting evaluation by neuro surgery. Oncology agreed that she needed seen by neuro surgery and transfer to a tertiary facility. She was ambulatory however with severe pain. She did not have acute numbness or tingling, though she may have had a slight decrease in DTR reflexes. Her symptoms were not profound, and she has underlying chronic lower back pain from previous spinal surgery. She was accepted at under the care of Dr. Mckenzie Rush/Onc. She was transferred in stable condition when a bed became available. This patient was seen by Michael Cason PA-C under the supervision of Doctor Hadley. [] Patient Problems: Active and Suspected Problems (Last Updated 11/12/18 @ 01:06 by Arthur Coreas MD) Metastatic cancer (Suspected) Back pain of thoracolumbar region (Acute) Disseminated malignancy (Acute) Pleural effusion, right (Acute) Mass of middle lobe of right lung (Acute) - Physical Exam General: Alert, Oriented x3, Cooperative HEENT: Atraumatic, PERRLA, EOMI, Normocephalic Neck: Supple, No JVD, Negative Carotid Bruits Lungs: Clear to auscultation, Normal air movement Cardiovascular: Regular rate, No murmurs Abdomen: Bowel Sounds Present, Soft, Non Tender Extremities: No edema, Capillary Refill Less than 3 Seconds Skin: No rashes, No breakdown Musculoskeletal: No Tenderness to Palpation of Joints or Extremities Neurological: Cranial nerves II-XII grossly intact Psych/Mental Status: Normal Affect, Appropriate, Alert and oriented to time, place, person, mood and affect Vital Signs Temp Pulse Resp BP Pulse Ox 98.1 F 106 H 18 159/74 H 94 11/12/18 16:15 11/12/18 16:15 11/12/18 16:15 11/12/18 16:15 11/12/18 16:15 Oxygen Flow Rate (L/min) 2 Oxygen Delivery Method [3] Room Air Oxygen Delivery Method [2] Room Air Oxygen Delivery Method [1 ( Room Air Initial Baseline)] Oxygen Delivery Method Nasal Cannula Weight: 254 lb 3.088 oz Body Mass Index (BMI) 43.6 Intake and Output for Last 24 Hours Intake Total 290 / 290 Output Total 140 / 140 Balance 150 / 150 Microbiology Past 72 Hours 11/12/18 13:00 Gram Stain - Final Fluid - Thoracentesis Fluid Laboratory Tests Past 24 Hrs WBC 10.5 RBC 4.40 Hgb 13.4 WBC RBC Hgb Hct MCV MCH MCHC RDW RDW Differential Plt Count WBC RBC POC Glucose POC Glucose 192 H Discharge Diet: - - As directed by receiving facility Discharge Activity: - - He has directed by receiving facility Home Medications: Medications to take at Discharge Albuterol Aerosols [Ventolin Aerosols] 2.5 mg INHALATION Q4H PRN PRN 08/11/18 Hydrochlorothiazide 12.5 mg PO DAILY 08/11/18 Levothyroxine [Synthroid] 50 mcg PO DAILY 08/11/18 Metformin HCl [Metformin HCl ER] 500 mg PO DAILY 08/11/18 Multivit with Calcium,Iron,Min [Multiple Vitamins For Women] 1 each PO DAILY 08/11/18 Polyethylene Glycol 3350 [Miralax] 17 gm PO DAILY 08/11/18 Potassium Chloride [Klor-Con M10] 10 meq PO DAILY 08/11/18 Simvastatin [Zocor] 20 mg PO QHS 08/11/18 Ibuprofen [Motrin] 600 mg PO Q6H PRN PRN #14 tablet 10/29/18 Cholecalciferol (Vitamin D3) [D3-2000] 2,000 unit PO DAILY 11/11/18 Etodolac 400 mg PO BID 11/11/18 Losartan/Hydrochlorothiazide [Losartan-Hctz 50-12.5 mg Tab] 1 tab PO DAILY 11/11/18 Tizanidine HCl 4 mg PO Q8H PRN PRN 11/12/18 Primary Care Physician: Harjinder Braswell MD [Primary Care Provider] - Please follow up with your Primary Care Physician in: As directed Patient Instructions: Discharge Instructions for Thoracentesis Disposition: Acute care Hospital Minutes spent on discharge:: 40 Patient Condition:: Stable Medical Necessity - Tobacco Use Smoking Status: Former smoker Meaningful Use Info Meaningful Use Diagnoses (Choose all that apply): None applicable <Cam Hadley - Last Filed: 11/12/18 17:51> Discharge Date and Diagnosis - Primary Discharge Diagnosis Active and Suspected Problems (Last Updated 11/12/18 @ 01:06 by Arthur Coreas MD) Metastatic cancer (Suspected) Back pain of thoracolumbar region (Acute) Disseminated malignancy (Acute) Pleural effusion, right (Acute) Mass of middle lobe of right lung (Acute) - Secondary Discharge Diagnosis Chronic Problems (Last Updated 11/12/18 @ 01:06 by Arthur Coreas MD) HTN (hypertension) (Chronic) Diabetes (Chronic) Hyperlipidemia associated with type 2 diabetes mellitus (Chronic) Morbid (severe) obesity due to excess calories (Chronic) Hypothyroidism (Chronic) Hospital Course and Treatment Imaging Results: 11/12/18 11:33 MRI Thoracic [Spine Thoracic W/WO Contrast] [MRI] Urgent 11/13/18 05:55 CXR [Chest PA and Lateral] [RAD] AM (NON MEDS) Operations: None Procedures: 2-D Echocardiogram Summary of Care Provided: Patient seen and examined independently. Data reviewed. I agree with the above note by the physician assistant professor of biochemistry. The patient is a 73 year old F presents with back pain. Patient underwent imaging that showed a destructive lesion at T10 as well as a right hilar mass, adenopathy and pleural effusion. Patient had no significant neurologic deficits that she had noted. Patient denied any bowel or bladder incontinence. Patient did undergo an MRI that showed a destructive lesion involving T10, the pedicles and adjacent but not contacting the spinal cord. Given the proximity of that, patient had been initially started on the dexamethasone but it was felt most appropriate for the patient to be evaluated facility with neuro surgery involvement. Patient requested [facility]. I initially spoke with neurosurgery but without any acute surgical needs the felt best to be under another service. So I spoke with Dr. Rincon, of oncology, and discussed the case. Patient was accepted to the oncology service at [facility] where she will be evaluated by neurosurgery. Patient did have a thoracentesis that was exudative. Cytology was sent with results still pending at this time. [] - Physical Exam Vital Signs Temp Pulse Resp BP Pulse Ox 36.7 C 106 H 18 159/74 H 94 11/12/18 16:15 11/12/18 16:15 11/12/18 16:15 11/12/18 16:15 11/12/18 16:15 Oxygen Flow Rate (L/min) 2 Oxygen Delivery Method [3] Room Air Oxygen Delivery Method [2] Room Air Oxygen Delivery Method [1 ( Room Air Initial Baseline)] Oxygen Delivery Method Nasal Cannula Weight: 115.3 kg Body Mass Index (BMI) 43.6 Intake and Output for Last 24 Hours Intake Total 290 / 290 Output Total 140 / 140 Balance 150 / 150 Microbiology Past 72 Hours 11/12/18 13:00 Gram Stain - Final Fluid - Thoracentesis Fluid Laboratory Tests Past 24 Hrs WBC 10.5 RBC 4.40 Hgb 13.4 WBC RBC Hgb Hct MCV MCH MCHC RDW RDW Differential Plt Count WBC RBC POC Glucose POC Glucose 192 H Discharge Diet: - Discharge Activity: - Disposition: Acute care Hospital Minutes spent on discharge:: 60 Patient Condition:: Stable Medical Necessity - Tobacco Use Smoking Status: Former smoker Meaningful Use Info Meaningful Use Diagnoses (Choose all that apply): None applicable Code Visit Inpatient E AND M: 37276 Disch Hosp 11/12/18 7098 <Electronically signed by Michael ROSS> Date Michael ROSS 11/12/18 733<Electronically signed by Cam Hadley DO> Cosigner Signature (if applicable): Date Cam Hadley DO CC: CODY Cason; Cam Hadley DO; Harjinder Braswell MD Signed BEDSIDE GLUCOSE Collected: 11/12/2018 Status: F Source: [place] 4:26 PM [facility] REPOSITORY TYPE CODE TESTS RESULT OUT OF REFERENCE UNITS RANGE LAB L501.080 70-110 mg/dL High BEDSIDE GLU 192 Result Comment: MANAGEMENT OF PATIENT CARE PER NURSING PROTOCOL Performed By: #### L501.080 #### [facility] Point of Care [address] [place] [address] PROTEIN, TOTAL Collected: 11/12/2018 Status: F Source: [place] 3:55 PM [facility] REPOSITORY TYPE CODE TESTS RESULT OUT OF RANGE REFERENCE UNITS LAB L501.1500 6.4-8.2 g/dL Normal T PROT 7.6 LAB L501.1950 2.2-4.2 g/dL High GLOB 4.3 LAB L501.2000 0.9-2.4 RATIO Low A/G 0.8 Performed By: #### L001.0705, L504.2610 #### [facility] [address] [place], [address] LDH Collected: 11/12/2018 Status: F Source: [place] 3:55 PM [facility] REPOSITORY TYPE CODE TESTS RESULT OUT OF RANGE REFERENCE UNITS LAB L504.2610 84-246 U/L High LDH 437 Performed By: #### L001.0705, L504.2610 #### [facility] [address] [place], [address] CYTOLOGY, BODY FLUID / Collected: 11/12/2018 Status: F Source: [place] CSF 2:02 PM [facility] REPOSITORY Order Comment: Order Date: 11/12/18 Comments: Pleural fluid cytology Has pt arrived? Y TYPE CODE TESTS RESULT OUT OF RANGE REFERENCE UNITS LAB L350.1000 SEE Normal PATHOLOGY CYTOLOGY,BF REPORT /CSF Result Comment: Specimen submitted to Anatomical Pathology Department for testing. Performed By: #### L350.1000 #### [facility] [address] [place], [address] CONSULTATION Observed: 11/12/2018 Status: F Source: [place] 1:36 PM [facility] REPOSITORY [facility] Medical Records Department [address] [place] [address] Consultation 11/12/18 1249 MR#: [id number] Acct: [id number] Name: TRISH HUNT Rep #: [id number] : 1945 73 From: Arthur Gates MD PCP: Harjinder Braswell MD Status: ADM IN Y Location: [place] [id number] Consult Referring Physician: Dr. Alonso Hadley Consult Results: Destructive bone lesion, R partially collapsed lung and effusion. Subjective Date of Service:: 11/12/18 Chief Complaint: Asked to see Pt with chronic back and destructive lesion on CT. History of Present Illness: 73-year-old woman presented with chronic back pain. CT of chest, abdomen and pelvis on 11/11/2018 showed right middle lobe collapse with effusion, mediastinal adenopathy, multiple destructive bony lesions concerning for metastatic disease. There is a destructive lesion at T10 with probable cord compression. Past Medical History: Chronic Problems (Last Updated 11/12/18 @ 01:06 by Arthur Coreas MD) HTN (hypertension) (Chronic) Diabetes (Chronic) Hyperlipidemia associated with type 2 diabetes mellitus (Chronic) Morbid (severe) obesity due to excess calories (Chronic) Hypothyroidism (Chronic) Past Medical/Surgical History: Past Medical History - Most Recent Inpatient Visit Past Medical History Start: 11/12/18 01:11 Text: Status: Complete Freq: ONCE Protocol: Document 11/12/18 01:11 [facility] (Rec: 11/12/18 01:55 [facility] [id number]) BMI Required to complete PMH What is Patient's BMI 43.3 Past Medical History Unable History Recalled Yes Query Text:Pt Unable/Family Not Present Neurologic Medical History Hx Stroke/TIA No Hx Dementia/Alzheimer's No Hx Parkinson's Disease No Hx Seizures No Hx Multiple Sclerosis No Hx Migraines No Cardiac Medical History VTE Present on Admission No Hx of Deep Vein Thrombosis/VTE/PE No Hx Hypertension Yes Hx Chest Pain/Angina No Hx Heart Attack No Hx Cardiac Surgery/Stents/Etc. No Hx Heart Failure No Hx Pacemaker/AICD No Hx Irregular Heartbeat and/or Afib No Hx Anticoagulant Therapy No Query Text:(Coumadin, Aspirin, Plavix, Xarelto, etc.) Hx Pain in Legs when Walking/Leg Cramps No Respiratory Medical History Hx COPD No Hx Emphysema No Hx Smoking Yes Smoking Status Former smoker Hx Tobacco Use in last 12 months No Hx Sleep Apnea No Do you snore loudly (louder than talking No or can be heard through closed doors)? Do you often feel tired/ fatigued/ No sleepy during daytime? Has anyone observed you stop breathing No during sleep? STOP Results Negative GI Medical History Hx Ulcer No Hx Hepatitis No Hx Cirrhosis No Hx GI Bleed No Hx Unplanned Weight Loss No Genitourinary Medical History Indwelling Catheter in Place on Arrival/ No Admission Hx Renal Disease No: OVERACTIVE BLADDER Hx Dialysis No Comments Recent bladder sx.2017 Dr Joseph Herrera for overactive bladder. Implantation and removal of spinal stimulator at the back; lower back surgery. 2017 removed spinal stimulator. Musculoskeletal History Hx Arthritis No Hx Rheumatoid Arthritis No Endocrine Medical History Hx Diabetes Yes: ON METFORMIN FOR PREVENTIVE Hx Thyroid Disease Yes: ON MED Hematologic Medical History Hx of Blood Transfusion No Hx of Transfusion in last 3 Months No Ever experience any problems with No transfusion(s)? Hx of Preganancy in last 3 Months N/A Nurse Filling Out Transfusion AND PLAUBACH Questions: Date: 11/12/18 Time: 01:54 Psycho/Social Medical History Hx Depression No Hx Anxiety No Hx Behavior Disorder No Hx Alcohol Use Yes: occasional Hx Substance Use No Other Medical History Hx Blood Disorders No Hx Anemia No Hx Cancer No Hx Drug Resistant Organism No Wound/Pressure Injury Present on Arrival No /Admission Query Text:If yes, chart assessment in Shift/Clinical Findings Central Line/PICC/VAD Present on Arrival No /Admission Antibiotics within last 7 days? No Methicillin Resistant Staphylococcus aureus Screening Active MRSA No Risk for Readmission Number of Risk Factors 3 At Risk for Readmission Patient is At Risk For Readmission Patient is eligible for Call Back Y Past Medical History (Last Updated 11/12/18 @ 01:06 by Arthur Coreas MD) Hypothyroidism (Acute) Maternal Family History: Family History (Last Updated 11/12/18 @ 01:07 by Arthur Coreas MD) Father Heart problem Mother Lung cancer - Social History Smoking Status: Former smoker Alcohol: Occasional Allergies/Adverse Reactions: Allergy/AdvReac Type Severity Reaction Status Date / Time Sulfa (Sulfonamide Allergy Unknown Verified 10/28/18 14:36 Review of Systems Constitutional:: Denies: Fever, Sweats, Weight loss, Appetite change, Chills Cardiovascular:: Denies: Chest pain, Palpitations, Dyspnea on exertion, Orthopnea, PND, Shortness of breath Respiratory: Denies: Cough, Hemoptysis, Shortness of Breath, Wheezing Gastrointestinal:: Denies: Abdominal pain, Nausea, Vomiting, Diarrhea, Constipation, Hematochezia Genitourinary: Denies: Dysuria, Hematuria, 15, Flank pain Musculoskeletal:: Reports: Back pain Skin: Denies: Rash, Skin Changes, Wounds Neurological:: Denies: Headache, Dizziness, Visual changes, Tinnitus, Hearing loss Psychiatric: Denies: Anxiety, Depression, Homicidal Ideations, Suicidal Ideations Vital Signs Height 5 ft 4 in Weight: 115.3 kg Weight in Pounds 254.2 lbs Pulse Ox 95 - Physical Exam General: Alert, Oriented x3, No apparent distress, - - back pain with movement. HEENT: Atraumatic, PERRLA, EOMI, Normocephalic Oropharynx:: Dry mucosa Neck:: Supple, Trachea midline. Negative for: JVD, bilateral Cardiac:: Regular rate, Regular rhythm, Normal S1, Normal S2. Negative for: Murmur Lungs: Clear to auscultation, Excusion symmetrical. Negative for: Rhonchi, Wheezes Abdomen:: Bowel sounds x 4, Soft, Non-tender, Non-distended. Negative for: Hepatosplenomegaly Extremities:: Negative for: Cyanosis, Edema Neurological: Neuro grossly intact Lymphatics:: Negative for: Cervical lymphadenopathy, Supraclavicular lymphadenopathy, Axillary lymphadenopathy Breast:: - - breast-no masses. Laboratory Data: Laboratory Tests WBC 10.5 (4.4-11.0) K/mm3 RBC 4.40 (4.2-5.4) M/mm3 Hgb 13.4 (12.0-15.0) g/dl Diagnostic Data: Diagnostic Data Abdomen/Pelvis CT 11/11/18 18:50 IMPRESSION: 1. 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 2. Right pleural effusion and atelectasis. 3. Collapse of the right middle lobe. 4. Borderline cardiomegaly. 5. No other evidence for acute intra-abdominal or pelvic abnormality. 6. Degenerative changes of the lumbar spine. 7. Atherosclerotic changes of the abdominal aorta. 8. Status post cholecystectomy and appendectomy N.B. : The above information has been verbally conveyed by Adam Arguello DO to Sonia Arredondo MD, on 11/11/2018 21:22:07 (ET). Electronically Signed: Adam Arguello DO at 21:23 EST Tel [phone], Service support , Chest CT 11/11/18 21:21 IMPRESSION: Multiple destructive osseous lesions are present concerning for metastatic disease. Probable associated cord compression at the T10 level. Pre and post contrast thoracic spine MRI is recommended when and if possible. Suggestion of right hilar mass on this limited noncontrast study with associated occlusion of the right middle lobe bronchus and right middle lobe consolidation and atelectasis. Consider PET/CT evaluation. Right pleural effusion. Diffuse mediastinal adenopathy. Electronically Signed: Harjinder Egan MD at 23:49 EST Tel , Service support , Assessment and Plan Right hilar mass with collapse of RML, Right Pleural effusion and bone lesions suggestive of metastatic malignancy. Destructive vertebra-T10 with probable cord compression currently on Decadron with no neurologic deficits. Suggestions: 1. Proceed with Thoracentesis. 2. Proceed with MRI of thoracic spine. 3. If cord compression is confirmed, she may need Neurosurgical evaluation. Will follow with further suggestions based on results of cytology and MRI. Thanks. Medications: Prescriptions This Visit Medication Instructions Recorded Cholecalciferol (Vitamin D3) 2,000 unit PO DAILY 11/11/18 Medications Added to Medication List This Visit Atorvastatin Calcium [Lipitor] Med 11/12/18 22:00 Active Primary Care Provider: Harjinder Braswell MD Referring Provider: - Problem List (1) Disseminated malignancy Status: Acute (2) Pleural effusion, right Status: Acute (3) Mass of middle lobe of right lung Status: Acute Code Visit Office Visits / Consults: 15880 IP Consult L5 11/12/18 1336 <Electronically signed by Arthur Gates MD> Date Arthur Gates MD Cosigner Signature (if applicable): Date CC: Nickolas Giles MD; Arthur Gates MD; Harjinder Braswell MD Signed PROTEIN, BODY FLUID Collected: 11/12/2018 Status: F Source: [place] 1:00 PM [facility] REPOSITORY TYPE CODE TESTS RESULT OUT OF RANGE REFERENCE UNITS LAB L503.0300 Not Establ. g/dL Normal 3.5 PROTEIN,BF Performed By: #### L503.0300 #### [facility] [address] [place], [place], [address] LDH,BODY FLUID Collected: 11/12/2018 Status: F Source: [place] 1:00 PM [facility] REPOSITORY Order Comment: Specimen Source: PLEURAL FLUID TYPE CODE TESTS RESULT OUT OF RANGE REFERENCE UNITS LAB L504.0250 Not Establ. Units/l Normal LDH,BF 500 Performed By: #### L504.0250 #### [facility] [address] [place], [place], [address] Observed: 11/12/2018 Status: F Source: [place] CULTURE, BODY FLUID 1:00 PM [facility] REPOSITORY Order Date: 11/12/18 Has pt arrived? Y Comments: collected in radiology Gram Stain Gram Stain 4+ Red Blood Cells No White Blood Cells No organisms seen Body Fluid Cult No growth aerobically. Cult, Anaerobic No growth in 5 days. Performed By: #### M100.1300 #### [facility] [place], [address] GLUCOSE, BODY FLUID Collected: 11/12/2018 Status: F Source: [place] 1:00 PM [facility] REPOSITORY Order Comment: Specimen Source: PLEURAL FLUID TYPE CODE TESTS RESULT OUT OF RANGE REFERENCE UNITS LAB L503.0100 40-70 mg/dL High GLU,BF 189 Performed By: #### L503.0100 #### [facility] [place], [address] BODY FLUID CELL Collected: 11/12/2018 Status: C Source: [place] COUNT+DIFF 1:00 PM [facility] REPOSITORY Order Comment: Order Date: 11/12/18 Comments: Collected in radiology Has pt arrived? Y The reference range and other method performance specifications have not been established for this body fluid. The test must be integrated into the clinical context for interpretation. TYPE CODE TESTS RESULT OUT OF RANGE REFERENCE UNITS LAB L200.3380 0.000-0.000 10 3/ul High BFTC# 16.154 Result Comment: CORRECTED REPORT CALLED TO Vadim FRAUSTO 11/13/18 0150 BY DANIS. FAXED TO This is the Total Number of Nucleated Cell Types in the Body Fluid. AMENDED REPORT 11/13/18 0143 BFTC# previously reported as: 16.138 H 10^3/ul This is the Total Number of Nucleated Cell Types in the Body Fluid. LAB L200.3400 10 6/ul Normal RBC/BF 0.19075 LAB L200.3500 10 3/uL Normal WBC/BF 16.138 Result Comment: AMENDED REPORT 11/13/18 0146 WBC/BF previously reported as: 16.154 10^3/uL LAB L200.3510 % Normal 0.5 BF PMN WBC% LAB L200.3515 % Normal 99.5 BF MN WBC% LAB L200.3520 10 3/uL Normal 15.707 BF MN WBC# LAB L200.3525 10 3/uL Normal 0.079 BF PMN WBC# LAB L200.4400 Normal Reviewed PATH COMM/BF Result Comment: Consistent with lymphocytic effusion. Please also correlate with corresponding cytology report [id number]. Marky Briggs M.D. 11/15/18 AMENDED REPORT 11/15/18 9575 PATH COMM/BF previously reported as: May follow LAB L200.3100 THORACENTESIS Normal SOURCE/BF LAB L200.3200 COLOR/BF PINK Normal LAB L200.3300 CLOUDY Normal APPEAR/BF LAB L200.3600 % PMN 1 Normal LAB L200.3700 % LYMPH 96 Normal Result Comment: AMENDED REPORT 11/15/18 104 LYMPH previously reported as: 12 % LAB L200.3800 % Normal MONO/BF 3 Result Comment: AMENDED REPORT 11/15/181040 MONO/BF previously reported as: 87 % LAB L200.4420 Normal SEE BFM 2ND COMMENT SPEC Performed By: #### L200.0200 #### [facility] [address] [place], [address] MISCELLANEOUS LAB Collected: 11/12/2018 Status: F Source: [place] PROCEDURE 1:00 PM [facility] REPOSITORY Order Comment: Comments: Pleural fluid cytology Test(s) Ordered: PLEURAL FLUID CYTOLOGY TYPE CODE TESTS RESULT OUT OF RANGE REFERENCE UNITS LAB L801.1541 Normal [facility] Result Comment: PLEASE SEE PATHOLOGY REPORT Performed By: #### L801.1541 #### [facility] [address] [facility] [place], [address] SPINE THORACIC W/WO Observed: 11/12/2018 Status: F Source: [place] CONTRAST 11:35 AM [facility] REPOSITORY [facility] Imaging Services [address] [place] [address] Spine Thoracic W/WO Contrast MR#: [id number] Acct: [id number] Name: TRISH HUNT Rep #: [id number] : 1945 F 73 From: Niru Mcgarry MD PCP: Harjinder Braswell MD Status: DIS IN Study: Spine Thoracic W/WO Contrast Date of Exam: 11/12/18 Exam# [id number] Ordering Dr: Cam Hadley DO STUDY: MRI THORACIC SPINE WITH AND WITHOUT CONTRAST REASON FOR EXAM: Female, 73 years old. Follow-up of abnormal CT scan which showed metastasis at T10. TECHNIQUE: 10 ml of Gadavist was administered intravenously for the contrast portion of the examination. COMPARISON: CT of the chest dated November 11, 2018. FINDINGS: Incidental note is made of multilevel degenerative changes of the visualized cervical spine. Normal kyphosis of the thoracic spine. There is no substantial scoliosis. T1-2, T2-3, T3-4, T4-5, T5-6, T6-7, T7-8, T8-9, T9-10, T10- 11, T11-12: There is abnormal signal within the T10 vertebral body corresponding to the abnormality identified in recent CT. This has abnormally increased T2 signal and decreased T1 signal. This appears to involve the vertebral body of T10 as well as the spinous processes of T9 and T10. There is also involvement of the pedicles of T10. There is encroachment upon the thecal sac by the tumor without MRI evidence for compression of the spinal cord at this level though the encroachment and acquired canal stenosis is considered moderate. There is focus of abnormal enhancement identified within the T9 vertebral body. There is also focus of abnormal signal within the T8 vertebral body which also enhances probably representing additional metastasis. There is abnormal enhancement of a T11 spinous process and right T11 pedicle after intravenous administration contrast. There is diffuse abnormal enhancement of the T10 vertebral body and posterior elements.. There appears to be hemangioma versus intraosseous lipoma within T7. Other remaining thoracic vertebral bodies have generally normal height, alignment and signal characteristics. Normal visualized thoracic cord. The conus medullaris is not definitely identified on the current study. . There appears to be a right-sided pleural effusion. There appears to be a mass in the region of the right hilar area which may represent primary neoplastic process. This is better seen on the recent CT. MRI/Spine Thoracic W/WO Contrast IMPRESSION: 1. Abnormal appearance to the T10 vertebral body what probably represents mild pathologic compression fracture and extensive metastatic involvement, as described. There is moderate canal stenosis at this level without definite cord impingement. 2. Additional metastases are visible at T8, T9 and T11. 3. Right-sided pleural effusion and right-sided hilar mass with postobstructive atelectasis. Electronically Signed: Niru Mcgarry MD at 22:19 EST , Service support , CC: Cam Hadley DO; Harjinder Braswell MD Resume Writer: Signed CBC-COMPLETE BLOOD CNT Collected: 11/12/2018 Status: F Source: [place] NO DIFF 6:20 AM [facility] REPOSITORY TYPE CODE TESTS RESULT OUT OF RANGE REFERENCE UNITS LAB L100.1000 4.4-11.0 K/mm3 Normal WBC 10.5 LAB L100.1200 4.2-5.4 M/mm3 Normal RBC 4.40 LAB L100.1300 12.0-15.0 g/dl Normal HGB 13.4 LAB L100.1400 37-47 % Normal HCT 43.2 LAB L100.1500 81-99 fL Normal MCV 98.2 LAB L100.1600 27.0-32.0 pg Normal MCH 30.5 LAB L100.1700 32-36 g/gl Low MCHC 31.0 LAB L100.1810 11.6-14.6 % Normal RDW CV 13.5 LAB L100.1820 35.1-43.9 fl High RDW SD 47.3 LAB L100.1900 150-450 K/mm3 Normal PLT 271 LAB L100.2000 6.2-12.0 fl Normal MPV 10.7 Performed By: #### L100.0500 #### [facility] [address] [place], [place], [id number] PROTHROMBIN TIME W/INR Collected: 11/12/2018 Status: F Source: [place] 6:20 AM [facility] REPOSITORY TYPE CODE TESTS RESULT OUT OF RANGE REFERENCE UNITS LAB L300.4150 11.7-14.9 SECONDS Normal PROTIME 13.9 LAB L300.4200 Normal INR 1.1 Performed By: #### L300.3900 #### [facility] [address] [place], [place], [address] PROTEIN, TOTAL Collected: 11/12/2018 Status: F Source: [place] 6:20 AM [facility] REPOSITORY TYPE CODE TESTS RESULT OUT OF RANGE REFERENCE UNITS LAB L501.1500 6.4-8.2 g/dL Normal T PROT 7.7 LAB L501.1950 2.2-4.2 g/dL High GLOB 4.3 LAB L501.2000 0.9-2.4 RATIO Low A/G 0.8 Performed By: #### L001.0705, L500.2500, L504.2610 #### [facility] [address] [facility]. [place], [place], [id number] BASIC METABOLIC Collected: 11/12/2018 Status: F Source: [place] PROFILE (BMP) 6:20 AM [facility] REPOSITORY TYPE CODE TESTS RESULT OUT OF RANGE REFERENCE UNITS LAB L501.0100 74-106 mg/dL High GLU 150 Result Comment: Fasting Glucose result greater than or equal to 126 mg/dL suggests DIABETES MELLITUS per A.D.A. criteria. Please note revised GLUCOSE reference range effective 2017. LAB L501.1000 7-18 mg/dL Normal BUN 17 LAB L501.1100 0.55-1.02 mg/dL Normal CREAT,SERUM 0.98 Result Comment: The validity of the calculated GFR AND GFRAA in patients over 70 years has not been determined. Clinical correlation is essential. LAB L501.1110 >60 mL/min Low EST GFR 59 Result Comment: Non- GFR Calc LAB L501.1115 >60 mL/min Normal EST GFR - AA 71 Result Comment: GFR Calc LAB L501.1255 ml/min Normal Estimated CRCL 42.83 LAB L501.1300 10-20 RATIO Normal BUN/CRE 17.3 LAB L501.2200 8.5-10 mg/dL Normal .1 CA 8.8 LAB L501.5300 136-14 mmol/L Normal 5 NA 141 LAB L501.5600 3.5-5. mmol/L Normal 1 K 3.8 LAB L501.5900 98-107 mmol/L High CL 109 LAB L501.6100 21.0-3 mmol/L Normal 2.0 CO2 25.0 LAB L501.6200 5-15 Normal GAP 7 Performed By: #### L001.0705, L500.2500, L504.2610 #### [facility] [address] [place], [place], [id number] LDH Collected: 11/12/2018 Status: F Source: [place] 6:20 AM [facility] REPOSITORY TYPE CODE TESTS RESULT OUT OF RANGE REFERENCE UNITS LAB L504.2610 84-246 U/L High LDH 440 Performed By: #### L001.0705, L500.2500, L504.2610 #### [facility] [address] [place], [address] HISTORY AND PHYSICAL Observed: 11/12/2018 Status: F Source: [place] EXAM 6:16 AM [facility] REPOSITORY [facility] Medical Records Department [address] [place] [address] History and Physical 11/11/18 2358 MR#: [id number] Acct: [id number] Name: TRISH HUNT Rep #: [id number] : 1945 73 From: Arthur Coreas MD PCP: Harjinder Braswell MD Status: ADM IN Y Location: [place] [address] Problem List (1) Metastatic cancer Status: Acute (2) HTN (hypertension) Status: Chronic (3) Diabetes Status: Chronic History of Present Illness Date of Admission: 11/11/18 Chief Complaint: pain around the waist line from front to back. The patient is a 73 year old F with a significant history of former smoker; hypertension; diabetes mellitus; hyperlipidemia; hypothyroidism; GERD who presented with 2-3-week history of excruciating progressively worsening continuous bandlike pain that goes across her lower abdomen to her back. She stated that her pain is 12on a scale of 1-10. She described the pain as spasms and vice-like. Initially it was assumed that her pain was coming from a spinal stimulator placed at her back for overreactive bladder. This spinal stimulator was removed by Dr. Herrera, urologist on 10/29/2018. But if even after removal of the stimulator the pain persisted. Her pain is aggravated by moving and relieved by lying still. Also she received morphine at the emergency department that helped relieved her pain momentarily. She has shortness of breath but she thinks that his shortness of breath is because it hurts when she breathes. Also patient reports that at home she has been taking Metamucil for about the past week because of constipation. However she denies any urinary problem. At emergency department abdominal and pelvis CT showed bony metastasis involving the T10 and T11 vertebra with partial collapse of T11; right pleural effusion and atelectasis; collapse of the right middle lobe and abdomen. A chest CT scan showed multiple destructive osseous lesion concerning for metastatic disease; probable associated cord compression at the T10 level. An MRI was recommended. Also radiologist suggested right lung mass with associated occlusion of right middle lobe bronchus and right middle lobe consolidation and atelectasis; as well as pleural effusion and diffuse mediastinal adenopathy. Past Medical History Past Medical History (Chronic Problems): Chronic Problems (Last Updated 11/12/18 @ 01:06 by Arthur Coreas MD) HTN (hypertension) (Chronic) Diabetes (Chronic) Medical History: Medical History (Last Updated 11/12/18 @ 01:06 by Arthur Coreas MD) Hypothyroidism E03.9 Allergies Sulfa (Sulfonamide Antibiotics) Allergy (Verified 10/28/18 14:36) Unknown sulfamethoxazole [From Septra] Allergy (Verified 10/28/18 14:36) Unknown trimethoprim [From Septra] Allergy (Verified 10/28/18 14:36) Unknown codeine Adverse Reaction (Verified 10/28/18 14:36) Nausea/Vom/Diarrhea hydrocodone [From Vicodin] Adverse Reaction (Verified 10/28/18 14:36) Nausea/Vom/Diarrhea lisinopril Adverse Reaction (Verified 10/28/18 14:36) cough Home Medications: Ambulatory Orders Medication Instructions Recorded Albuterol Aerosols [Ventolin 2.5 mg INHALATION Q4H PRN PRN 08/11/18 Surgical History: cholecystectomy, - - Implantation and removal of spinal stimulator at the back; lower back surgery. Smoking Status: Former smoker Alcohol: Occasional - *Family History Maternal Family History: Family History (Last Updated 11/12/18 @ 01:07 by Arthur Coreas MD) Father Heart problem Mother Lung cancer Review of Systems Constitutional: Denies: Chills, Fever, Weight Change HEENT: Denies: Head Aches, Sinus Congestion, Sinus Drainage Cardiovascular: Denies: Chest Pain, Palpitations Respiratory: Reports: Shortness of Breath. Denies: Cough Gastrointestinal: Reports: Abdominal Pain. Denies: Nausea, Vomiting Genitourinary: Denies: Dysuria Musculoskeletal: Reports: Back Pain - lower back. Denies: Joint Pain, Joint Tenderness Skin: Denies: Rash, Wounds Neurological: Denies: Numbness, Tingling, Focal weakness Psychiatric: Denies: Anxiety, Depression, Homicidal Ideations, Suicidal Ideations Hematologic/ Lymphatic: Denies: Easy Bruising, Easy Bleeding VTE Information - Inpt Only VTE Present on Admission: No VTE Mechan Device Prophylaxis: SCD's VTE Pharm Prophylaxis ordered?: Yes Patient Problems: Active and Suspected Problems (Last Updated 11/12/18 @ 01:06 by Arthur Coreas MD) Metastatic cancer (Acute) - Physical Exam General: Alert, Oriented x3, Cooperative HEENT: Atraumatic, PERRLA, EOMI, Normocephalic Neck: Supple, No JVD, Negative Carotid Bruits Lungs: Clear to auscultation, Normal air movement Cardiovascular: Regular rate, No murmurs Abdomen: Bowel Sounds Present, Soft, Non Tender Extremities: No edema, Capillary Refill Less than 3 Seconds Skin: No rashes, No breakdown Musculoskeletal: No Tenderness to Palpation of Joints or Extremities Neurological: Neuro grossly intact Psych/Mental Status: Normal Affect, Appropriate Vital Signs Temp Pulse Resp BP Pulse Ox 97.6 F L 78 16 117/45 L 92 11/11/18 18:28 11/11/18 23:00 11/11/18 23:00 11/11/18 23:00 11/11/18 23:00 Oxygen Delivery Method Room Air Weight: 114.5 kg Body Mass Index (BMI) 43.3 Assessment/Plan All Active Problems (Last Updated 11/12/18 @ 01:06 by Arthur Coreas MD) Metastatic cancer (Acute) The patient is a 73 year old F with a significant history of former smoker; hypertension; diabetes mellitus; hyperlipidemia; hypothyroidism; GERD who presented with 2-3-week history of excruciating progressively worsening continuous bandlike pain that goes across her lower abdomen to her back; with radiographic findings suggestive of metastatic disease with likely primary from her lungs. Probable metastatic cancer Independent review of CT chest; and CT abdomen and pelvis is consistent with probable metastatic cancer. Since there is a right pleural effusion, will order ultrasound thoracentesis for diagnostic study and cytology. We will consult pulmonary medicine and oncology to optimize diagnostic procedures and management.. Since there is probable cord compression, dexamethasone IV 20 mg x1 and then scheduled p.o. dexamethasone. We will hold off home NSAIDs as patient has been placed on Decadron. We will check PT/INR prior to ultrasound thoracentesis. Dilaudid IV as needed for pain ordered. Zofran antiemetics ordered in the setting of narcotic use. Senokot S ordered in the setting of narcotic use. Albuterol as needed continued. Will keep npo for thoracentesis Hypertension On admission blood pressure was not within goal. Cozaar and hydrochlorothiazide continued Trend blood pressures and adjust blood pressure medication as necessary. Diabetes mellitus Review of outpatient labs showed that her glucose on 11/10/2018 was 105 on BMP. She takes metformin at home. We will hold metformin since it is too early in her admission, Do not anticipate that patient may need insulin requirements at this time since she is only taking metformin 500 mg daily. BMP in a.m. Hypothyroidism Synthroid ordered. Hyperlipidemia Lipitor continued DVT prophylaxis Patient is a high risk of thromboembolism since she has probable cancer. However due to probable interventions will not put patient on Lovenox at this time. Heparin subcutaneous ordered. SCD ordered. Code Visit Inpatient E AND M: 65716 Init Hosp L3 11/12/18 0616 <Electronically signed by Arthur Coreas MD> Date Arthur Coreas MD Cosigner Signature: Date (if applicable) CC: Arthur Coreas MD; Harjinder Braswell MD Signed THORACENTESIS W US Observed: 11/12/2018 Status: F Source: [place] 1:03 AM [facility] REPOSITORY [facility] Imaging Services [address] [place] [address] Thoracentesis W US MR#: [id number] Acct: [id number] Name: TRISH HUNT Rep #: [id number] : 1945 F 73 From: Jeb Keith MD PCP: Harjinder rBaswell MD Status: ADM IN Study: Thoracentesis W US Date of Exam: 11/12/18 Exam# [id number] Ordering Dr: Arthur Coreas MD Under ultrasound guidance and following appropriate aseptic preparation, minor sedation and local anesthesia: 5 Guinean catheter was introduced into the right pleural cavity, 140ml of serosanguineous fluid aspirated and sent to the lab for further assessment. The catheter was then removed because not significant amount of pleural effusion is detected. US/Thoracentesis W US IMPRESSION: Uneventful diagnostic aspiration of right pleural effusion Electronically Signed: Jeb Keith, at 16:22 EST Tel , Service support , CC: Arthur Coreas MD; Harjinder Braswell MD Resume Writer: Signed FLUID/WASHING Observed: 11/12/2018 Status: F Source: [place] 12:00 AM [facility] REPOSITORY Patient: TRISH HUNT : 1945 (73/F) Acct Num: [id number] Phys: Cam Hadley DO Unit Num: [id number] Loc: U [id number] Specimen: [id number] Received: 11/12/181419 Spec Type: Fluid TISSUES 1 TISSUES: THORACIC FLUID COMMENT Immunohistochemistry ([id number]) supports the above diagnosis. Case has been reviewed in consultation with Dr. Hancock who concurs with the above diagnosis. IDC:AM CYTOLOGY GROSS Received is 120 ml of bev cloudy fluid labeled with the patient's name and and designated per the requisition as thoracentesis. Submitted for cytology preparation including cell block (7 cell blocks are prepared). / 11/12/18 TC:5 CPT: 35145, 20171 CYTOLOGY STUDY Slides are reviewed. DIAGNOSIS CYTOLOGY Thoracentesis fluid for cytology (cytospins and cell blocks): Negative for malignant cells. SJ:aishwarya 11/15/18 HEADER OPERATION: Ultrasound-guided right thoracentesis PRE-OP DIAGNOSIS: Metastatic cancer TISSUE SUBMITTED: Thoracentesis fluid for cytology Signed Marky Briggs MD 11/19/18 <signature on file> Performed By: #### PFLU #### [facility] [address] [place], [place] [address] [place], [address] IMMUNOHISTOCHEMISTRY Observed: 11/12/2018 Status: F Source: [place] 12:00 AM [facility] REPOSITORY Patient: TRISH HUNT : 1945 (73/F) Acct Num: [id number] Phys: Kelton Hadley DOic Unit Num: [id number] Loc: [facility] [id number] Specimen: [id number] Received: 11/18/18 - 1234 Spec Type: IMMUNO TISSUES 1 TISSUES: THORACIC FLUID SPECIMEN INFORMATION: Tissue Source: Thoracentesis fluid Clinical Info: Metastatic cancer Specimen Number: [id number] CPT code: 53736, 84340 x16 METHODOLOGY: Deparaffinized sections of prefer/formalin-fixed tissue or PAP/DQ stained slides are incubated with monoclonal/polyclonal antibodies/oligonucleotide probes. Localization is made via biotin free immunoperoxidase method. Appropriate controls are performed and reacted as expected. Results on target cell population are indicated in the following table: RESULTS: ANTIBODY / CLONE RESULT ER (6F11) negative IA (1E2) negative Her-2neu (CB11) negative E-Cad (ECH-6) negative Mammaglobin (31A5) negative GATA3 (L50-823) negative Vimentin (V9) negative (positive in mesothelial cells and macrophages and inflammatory cells) CK7 (OV-TL12/30) negative CK8 (46jeutH91) negative CK20 (KS20.8) negative CD45 (RP2/18) negative TTF-1 (8G7G3/1) negative Napsin A (Rabbit Polyclonal) negative HepPar (OCh1E5) negative RCC (PN-15) negative Macro (HAM-56) negative (positive in macrophages) CALRET (polyclonal) negative (positive in mesothelial cells) These tests were developed and their performance characteristics determined by [facility]. They may not have been cleared or approved by the U.S. Food and Drug Administration. The FDA has determined that such clearance or approval is not necessary. INTERPRETATION: Thoracentesis fluid: Negative for malignant cells. SJ:aishwarya 11/18/18 Case has been reviewed in consultation with Dr. Hancock who concurs with the above diagnosis. IDC:AM PHYSICIAN AND INSTITUTION [place] [id number] Signed Marky Briggs MD 11/19/18 <signature on file> Performed By: #### PIMM #### [facility] [address] [place], [address] CHEST WITHOUT Observed: 11/11/2018 Status: F Source: [place] CONTRAST 9:22 PM [facility] REPOSITORY [facility] Imaging Services [address] [place] [address] Chest without Contrast MR#: [id number] Acct: [id number] Name: TRISH HUNT Rep #: [id number] : 1945 F 73 From: Harjinder Egan MD PCP: Harjinder Braswell MD Status: REG ER Study: Chest without Contrast Date of Exam: 11/11/18 Exam# [id number] Ordering Dr: Sonia Arredondo DO STUDY: CT CHEST WITHOUT CONTRAST REASON FOR EXAM: Female, 73 years old. Dyspnea and abnormal abdomen CT RADIATION DOSAGE (If Supplied By Facility): CTDIvol = ( 19.96 ) mGy, DLP = ( 688.39 ) mGycm TECHNIQUE: Transaxial imaging was performed without the administration of intravenous contrast material. Individualized dose optimization techniques were used for this CT. COMPARISON: None. FINDINGS: Right pleural effusion. Compressive right basilar atelectasis. Cardiomegaly. Tracheobronchial calcifications. Multiple lytic bone lesions are present concerning for metastatic disease. A large destructive lesion is present involving the T10 vertebra anterior and posterior elements with associated severe central canal stenosis and probable cord compression. Destructive lesions are also present involving the right T11 pedicle and posterior elements with moderate central canal stenosis. Overall, pre and post contrast thoracic spine MRI is recommended when and if possible. Diffuse mediastinal adenopathy is present. This includes a 17 mm short axis right paratracheal node. Probable ill-defined right hilar mass with associated occlusion of the right middle lobe bronchi and associated right middle lobe consolidation and atelectasis. The lesion in question measures 4.2 x 4.3 cm on image [address]/Chest without Contrast IMPRESSION: Multiple destructive osseous lesions are present concerning for metastatic disease. Probable associated cord compression at the T10 level. Pre and post contrast thoracic spine MRI is recommended when and if possible. Suggestion of right hilar mass on this limited noncontrast study with associated occlusion of the right middle lobe bronchus and right middle lobe consolidation and atelectasis. Consider PET/CT evaluation. Right pleural effusion. Diffuse mediastinal adenopathy. Electronically Signed: Harjinder Egan MD at 23:49 EST Tel , Service support , CC: Sonia Arredondo DO; Harjinder Braswell MD Resume Writer: Signed ABDOMEN/PELVIS WITH Observed: 11/11/2018 Status: F Source: [place] CONTRAST 6:51 PM [facility] REPOSITORY [facility] Imaging Services [address] [place] [id number] Abdomen/Pelvis WITH Contrast MR#: [id number] Acct: [id number] Name: TRISH HUNT Rep #: [id number] : 1945 F 73 From: Adam Arguello DO PCP: Harjinder Braswell MD Status: REG ER Study: Abdomen/Pelvis WITH Contrast Date of Exam: 11/11/18 Exam# [id number] Ordering Dr: Sonia Arredondo DO STUDY: CT ABDOMEN AND PELVIS WITH CONTRAST REASON FOR EXAM: Female, 73 years old. Abdominal pain. Back pain. RADIATION DOSAGE (If Supplied By Facility): CTDIvol = ( 25.39 ) mGy, DLP = ( 1215.33 ) mGycm TECHNIQUE: Transaxial images were obtained from the dome of the diaphragm to the symphysis pubis with oral contrast. 100ML ml of Isovue 300 contrast was administered. Sagittal and coronal images were reconstructed. Individualized dose optimization techniques were used for this CT. COMPARISON: None. FINDINGS: There is a moderate right pleural effusion with atelectasis. There is collapse of the right middle lobe. The heart is borderline enlarged. Normal liver. The gallbladder is not visualized. There is mild dilatation of the extrarenal collecting system suggesting prior cholecystectomy. Normal spleen. Normal pancreas. Normal bilateral adrenal glands. Both kidneys are low normal in size. There is no focal mass or renal calculi. Normal visualized bilateral ureters. Stomach is distended with debris and high density material. Question contrast. Normal small intestine. Feces is seen throughout the proximal colon. The distal colon is grossly normal. There are surgical clips in the region of the appendix consistent with a prior appendectomy. There is diffuse atherosclerotic calcification of the abdominal aorta, without a demonstrated aneurysm. Normal inferior vena cava. Normal retroperitoneum. Normal urinary bladder. Uterus appears normal. There is no adnexal mass. There is no pelvic lymphadenopathy. No free air or free fluid is seen within the peritoneal cavity. Normal abdominal wall. Mild degenerative changes lumbar spine most marked at L5-S1. There is partial collapse of the T10 vertebra. There is low attenuation material involving the posterior vertebral body at T10 extending into the posterior elements there is involvement of the posterior elements of T11. The findings are suggestive of bone metastases. CT/Abdomen/Pelvis WITH Contrast IMPRESSION: 1. 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 2. Right pleural effusion and atelectasis. 3. Collapse of the right middle lobe. 4. Borderline cardiomegaly. 5. No other evidence for acute intra-abdominal or pelvic abnormality. 6. Degenerative changes of the lumbar spine. 7. Atherosclerotic changes of the abdominal aorta. 8. Status post cholecystectomy and appendectomy N.B. : The above information has been verbally conveyed by Adam Arguello DO to Sonia Arredondo MD, on 11/11/2018 21:22:07 (ET). Electronically Signed: Adam Arguello DO at 21:23 EST Tel [phone], Service support , CC: Sonia Arredondo DO; Harjinder Braswell MD Resume Writer: Signed CBC-COMPLETE BLOOD CNT Collected: 11/10/2018 Status: F Source: [place] NO DIFF 2:36 PM [facility] REPOSITORY TYPE CODE TESTS RESULT OUT OF RANGE REFERENCE UNITS LAB L100.1000 4.4-11.0 K/mm3 Normal WBC 7.9 LAB L100.1200 4.2-5.4 M/mm3 Normal RBC 4.56 LAB L100.1300 12.0-15.0 g/dl Normal HGB 13.6 LAB L100.1400 37-47 % Normal HCT 44.0 LAB L100.1500 81-99 fL Normal MCV 96.5 LAB L100.1600 27.0-32.0 pg Normal MCH 29.8 LAB L100.1700 32-36 g/gl Low MCHC 30.9 LAB L100.1810 11.6-14.6 % Normal RDW CV 13.4 LAB L100.1820 35.1-43.9 fl High RDW SD 47.0 LAB L100.1900 150-450 K/mm3 Normal PLT 262 LAB L100.2000 6.2-12.0 fl Normal MPV 10.8 Performed By: #### L100.0500 #### [facility] [address] [place], [place], [address] COMPREHENSIVE METABOLIC Collected: 11/10/2018 Status: F Source: [place] PROFIL 2:36 PM [facility] REPOSITORY TYPE CODE TESTS RESULT OUT OF RANGE REFERENCE UNITS LAB L501.0100 74-106 mg/dL Normal GLU 105 Result Comment: Fasting Glucose result from 100 to 125 mg/dL suggests IMPAIRED HOMEOSTASIS per A.D.A. criteria. Please note revised GLUCOSE reference range effective 2017. LAB L501.1000 7-18 mg/dL Normal BUN 15 LAB L501.1100 0.55-1.02 mg/dL High CREAT,SERUM 1.15 Result Comment: The validity of the calculated GFR AND GFRAA in patients over 70 years has not been determined. Clinical correlation is essential. LAB L501.1110 >60 mL/min Low EST GFR 49 Result Comment: Non- GFR Calc LAB L501.1115 >60 mL/min Low EST GFR - AA 59 Result Comment: GFR Calc LAB L501.1300 10-20 RATIO Normal BUN/CRE 13.0 LAB L501.1500 6.4-8.2 g/dL T Normal PROT 7.5 LAB L501.1800 3.2-5.0 g/dL Normal ALB 3.3 LAB L501.1950 2.2-4.2 g/dL Normal GLOB 4.2 LAB L501.2000 0.9-2.4 RATIO Low A/G 0.8 LAB L501.2200 8.5-10.1 mg/dL CA Normal 9.0 LAB L501.4100 15-37 U/L Normal AST 24 LAB L501.4305 45-117 U/L Normal ALK P 51 LAB L501.4405 13-56 U/L Normal ALT 16 LAB L501.4600 0.20-1.00 mg/dL T Normal BILI 0.40 LAB L501.5300 136-145 mmol/L NA Normal 145 LAB L501.5600 3.5-5.1 mmol/L K Normal 3.7 LAB L501.5900 98-107 mmol/L High CL 110 LAB L501.6100 21.0-32.0 mmol/L Normal CO2 25.0 LAB L501.6200 5-15 Normal GAP 10 Performed By: #### L500.4050, L501.2450 #### [facility] [address] [place], [address] LIPASE Collected: 11/10/2018 Status: F Source: [place] 2:36 PM [facility] REPOSITORY TYPE CODE TESTS RESULT OUT OF RANGE REFERENCE UNITS LAB L501.2450 73-393 U/L Normal LIPASE 118 Performed By: #### L500.4050, L501.2450 #### [facility] [address] [place], [address] BNP,B-TYPE NATRIURETIC Collected: 11/10/2018 Status: F Source: [place] PEPTIDE 2:36 PM [facility] REPOSITORY TYPE CODE TESTS RESULT OUT OF RANGE REFERENCE UNITS LAB L503.6620 0-100 pg/mL Normal B-TYPE 43.9 MARITO PEP Performed By: #### L503.6620 #### [facility] [address] [place], [address] Observed: 11/10/2018 Status: F Source: [place] CULTURE, URINE 2:36 PM [facility] REPOSITORY Urine Culture Below infection level. ORGANISM 1: Mixed Gram Positive Organisms [place] Count 1000-10,000 MIX CULTURE Mixed contaminants. Submit a new specimen if indicated. Performed By: #### M100.0650 #### [facility] [address] [place], [address] XR THORACIC 3V Observed: 11/10/2018 Status: F Source: [place] AP/LAT/SWIMMERS 12:28 PM [facility] REPOSITORY * * *Final Report* * * DATE OF EXAM: Nov 10 2018 12:28PM [id number] [id number] - XR THORACIC 3V AP/LAT/SWIMMERS / PROCEDURE REASON: Acute right-sided low back pain without sciatica * * * * Physician Interpretation * * * * HISTORY: Acute right-sided low back pain without sciatica . lower back pain for 3 weeks. pain does not radiate to arms or legs. no injury (accession [id number]), 3 week history lower back pain in the waist area, starts on the right radiates left. does not radiate to arms or legs. (accession [id number]) TECHNIQUE: XR THORACIC 3V AP/LAT/SWIMMERS, XR LUMBAR 3V AP/LAT/L5-S1 Laterality: NOT APPLICABLE Number of different views (projections): 3 COMPARISON: Chest radiograph on 02/26/2017 RESULT: Thoracic spine: COUNTING REFERENCE: The first visualized rib is considered T1. There are 12 paired ribs. The vertebral body heights are preserved. The visualized bones appear demineralized. No spondylolisthesis noted. There is mild dextrocurvature of the midthoracic spine. Multilevel degenerative disc disease is seen with anterior marginal osteophyte formation. Lumbar spine: Counting reference: Lumbosacral junction. For the purposes of this report, L4-5 is considered the level of the iliac crest, and there are 5 lumbar-type vertebrae. Anatomic Variants: None. Mild levocurvature is seen centered at L2-L3. No spondylolisthesis noted. Facet arthropathy is noted at all levels, most prominently L4-5 and L5-S1. Mild multilevel degenerative disc disease with marginal anterior osteophytes and decreased intervertebral disc height. Incidental note is made of vascular calcifications. There are mild sacroiliac degenerative changes. There are enthesopathy of the iliac crests. Mild bilateral osteoarthritis of the hips. No other significant abnormality is seen. IMPRESSION: Multilevel degenerative spondylosis without acute findings. Resume Writer: PSCB Transcribe Date/Time: Nov 11 2018 8:05A Dictated by : SARINA MITTAL MD This examination was interpreted and the report reviewed and electronically signed by: SARINA MITTAL MD on Nov 11 2018 8:10AM EST [id number] XR LUMBAR 3V Observed: 11/10/2018 Status: F Source: [place] AP/LAT/L5-S1 12:27 PM [facility] REPOSITORY * * *Final Report* * * DATE OF EXAM: Nov 10 2018 12:27PM [id number] [id number] - XR LUMBAR 3V AP/LAT/L5-S1 / PROCEDURE REASON: Acute right-sided low back pain without sciatica * * * * Physician Interpretation * * * * HISTORY: Acute right-sided low back pain without sciatica . lower back pain for 3 weeks. pain does not radiate to arms or legs. no injury (accession [id number]), 3 week history lower back pain in the waist area, starts on the right radiates left. does not radiate to arms or legs. (accession [id number]) TECHNIQUE: XR THORACIC 3V AP/LAT/SWIMMERS, XR LUMBAR 3V AP/LAT/L5-S1 Laterality: NOT APPLICABLE Number of different views (projections): 3 COMPARISON: Chest radiograph on 02/26/2017 RESULT: Thoracic spine: COUNTING REFERENCE: The first visualized rib is considered T1. There are 12 paired ribs. The vertebral body heights are preserved. The visualized bones appear demineralized. No spondylolisthesis noted. There is mild dextrocurvature of the midthoracic spine. Multilevel degenerative disc disease is seen with anterior marginal osteophyte formation. Lumbar spine: Counting reference: Lumbosacral junction. For the purposes of this report, L4-5 is considered the level of the iliac crest, and there are 5 lumbar-type vertebrae. Anatomic Variants: None. Mild levocurvature is seen centered at L2-L3. No spondylolisthesis noted. Facet arthropathy is noted at all levels, most prominently L4-5 and L5-S1. Mild multilevel degenerative disc disease with marginal anterior osteophytes and decreased intervertebral disc height. Incidental note is made of vascular calcifications. There are mild sacroiliac degenerative changes. There are enthesopathy of the iliac crests. Mild bilateral osteoarthritis of the hips. No other significant abnormality is seen. IMPRESSION: Multilevel degenerative spondylosis without acute findings. 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 PATIENT GENDER DATA: Female. status: : No status: NO. PATIENT RELEVANT IMPLANT DATA REVIEWED: Not Applicable RADIOLOGY DEPARTMENT: General X-ray: Exam(s) Completed: Spine X-Ray(s): Thoracic and Lumbar AP / LAT / L5-S1 PERIPHERAL IV DATA: Not applicable SIGNED BY: RT Kevin November 10, 2018 12:17 PM ECG COMPLETE W Observed: 11/10/2018 Status: F Source: [place] INTERPRETATION 11:14 AM [facility] REPOSITORY NAME : TRISH HUNT PID : [id number] : 1945 Gender : Female Race : ORD : [id number] Procedure Date : Nov 10 2018 11:14:25 Edit Date : Nov 22 2018 12:42:12 Diagnosis:NORMAL SINUS RHYTHM LEFT AXIS DEVIATION ABNORMAL ECG Confirmed by MD COUGHLIN GREGORY () on 11/22/2018 12:41:48 PM Ventricular Rate : 78 BPM Atrial Rate : 78 BPM P-R Interval : 196 ms QRS Duration : 82 ms Q-T Interval : 390 ms QTC Calculation(Bezet) : 444 ms P Taylor : 74 degrees R Taylor : -34 degrees T Taylor : 35 degrees Test Reason : Location : 185 : [facility] Overread By : MD COUGHLIN GREGORY Edited By : MD COUGHLIN GREGORY Referred By : HARJINDER BRASWELL Acquired by : Naomi RAMOS, PROGRESS Observed: 11/10/2018 Status: COMPLETED Source: [place] 10:53 AM [facility] REPOSITORY O ID: [id number] Author: Harjinder Braswell Service: (none) Author Type: Physician Type: Progress Notes Filed: 11/10/2018 11:49 AM Note Text: Patient presents with: Low Back Pain HPI: Patient presents today for office visit for follow up. Nursing Notes: Ileana Ramos LPN 11/10/2018 10:45 AM Signed In the beginning of Sep had a bladder stimulator implanted. After implant started having trouble with spasms. Had stimulator removed last week and still with spasms. Getting up and down is when the pain is the worst. Using ibuprofen and that maybe takes the edge off. After had stimulator removed was given myrbetriq and vesicare which cause constipation. Stopped the medications and doubled up on her miralax. Also reports swelling to legs and feet. Spasms start in ruq and wrap around to mid back and to waste line. Hurts to move. Had some constipation and doubled up on her miralax. Bowels are working well. No diarrhea or constipation. Decreased appetite. No nausea or vomiting. No dysuria or increased urinary frequency or hematuria. Has noted some shortness of breath but is related to taking a deep breath. No cough or congestion. Getting up and down makes things worse. When she is not moving up and down she is not bad. Swelling is better with elevation. Is not moving around as much due to pain. No leg redness or warmth. Or leg pain. No fever or chills. No trauma. No pain down the legs. No numbness or weakness. MEDICATIONS: Current Outpatient Prescriptions: Albuterol Sulfate 1.25 mg/3 mL nebulizer solution Use 1 Ampule via nebulizer every 6 hours as needed. Cholecalciferol, Vitamin D3, 2,000 unit ORAL Cap Take 2 caps daily desonide (DESOWEN) 0.05 % lotion Apply 1 application to affected area twice daily. etodolac (LODINE) 400 mg tablet Take 1 tablet by mouth twice daily. (Patient not taking: Reported on 06/03/2018 ) Hydrochlorothiazide 12.5 mg capsule Take 1 capsule by mouth once daily. levothyroxine (SYNTHROID) 50 mcg tablet Take 1 tablet by mouth daily before breakfast. losartan-hydrochlorothiazide (HYZAAR) 50-12.5 mg per tablet Take 1 tablet by mouth once daily. metFORMIN ER (GLUCOPHAGE XR) 500 mg 24 hr tablet Take 1 tablet by mouth daily with breakfast. polyethylene glycol 3350 (MIRALAX, GLYCOLAX) 17 gram/dose powder Take 17 g by mouth once daily. potassium chloride (K-TAB) 10 mEq tablet Take 1 tablet by mouth daily with breakfast. simvastatin (ZOCOR) 20 mg tablet Take 1 tablet by mouth daily at bedtime. THERAPEUTIC MULTIVITAMIN TAB Take one(1) tablet daily. trospium (SANCTURA) 20 mg tablet Take 20 mg by mouth twice daily. No current facility-administered medications for this visit. ALLERGIES: ALLERGIES Allergen Reactions - Codeine Vomiting - Lisinopril Cough throat tickle - Septra [Sulfamethox* - Sulfa (Sulfonamide * - Vicodin [Hydrocodon* GI Upset PAST MEDICAL HISTORY Diagnosis Date - Benign neoplasm of colon - Displacement of lumbar intervertebral disc without myelopathy - Hypothyroid - Metabolic syndrome - Other and unspecified hyperlipidemia - Unspecified essential hypertension PAST SURGICAL HISTORY Procedure Laterality Date - CHOLECYSTECTOMY - COLONOS W/REM POLYP SNARE 03/18/16 multiple polyps - 3 year follow up - COLONOSCOP W/ OR W/O [facility] SPEC 12/14/2012 Colonoscopy - PAST SURGICAL HISTORY OF lumbosacral nerve root decompression - PAST SURGICAL HISTORY OF bladder stim - SIGMOIDOSCOPY FLEX DIAG 07/05/13 Sigmoidoscopy, flexible/colonoscopy needed in 1 year FAMILY HISTORY Problem Relation Age of Onset - Cancer Sister thyroid - Cancer Mother lung non smoker - Coronary Artery Disease Father Social History Marital status: Spouse name: Robbie Years of education: Number of children: 3 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 REVIEW OF SYSTEMS All other reviewed and negative other than HPI. HEALTH MAINTENANCE: Reviewed health maintenance issues today and recommended the following in detail. VITALS: BP 142/82 Pulse 72 Resp 18 Wt 113.4 kg (250 lb) BMI 42.91 kg/m? Last 4 Encounter Wt Readings: Date: Wt: 11/10/2018 113.4 kg (250 lb) 08/02/2018 111.6 kg (246 lb) 06/03/2018 113.4 kg (250 lb) 05/12/2018 111.6 kg (246 lb) PHYSICAL EXAMINATION: General appearance: Well appearing, alert, in no acute distress, well-hydrated, well nourished. Skin: Skin color, texture, turgor normal, no suspicious rashes or lesions Head: Normocephalic, no masses, lesions, tenderness or abnormalities Back: negative findings: symmetric, no kyphosis present, no tenderness to percussion or palpation, positive findings: uncomfortable with movement. Appears to musculoskeletal. Lungs: lungs clear to auscultation. No wheezing, rhonchi, rales Heart: RRR without murmur, gallop, or rubs. No ectopy Abdomen: Normal abdominal exam, Abdomen soft, non-tender. Bowel sounds normal. No masses, organomegaly Extremities: No deformities skin discoloration, clubbing or cyanosis. Good capillary refill. One plus edema. No redness or warmth or palpable cords. nega homans Musculoskeletal: No joint swelling, deformity, or tenderness Peripheral pulses: Normal Neuro: Gait normal. Reflexes normal and symmetric. Sensation grossly intact. ASSESSMENT/PLAN: 1. RUQ pain - ICD9: 789.01, ICD10: R10.11 (primary diagnosis) - wonder if musculoskeletal. Discussed risks and benefits of new medication with the patient. Advised them to call if any side effects or questions. - Call if symptoms worsen at all or if not better in one to two weeks - UA DIP, URINE (POC) - COMPOUNDED PRESCRIPTION 2. Acute right-sided low back pain without sciatica - ICD9: 724.2, ICD10: M54.5 - COMPOUNDED PRESCRIPTION - XR THORACIC GENERAL 3V AP/LAT/SWIMMERS - XR LUMBAR GENERAL 3V AP/LAT/L5-S1 3. SOB (shortness of breath) - ICD9: 786.05, ICD10: R06.02 Not short of breath except when changing positions. I believe is related to muscular pain. - ECG COMPLETE W INTERPRETATION - COMPOUNDED PRESCRIPTION 4. Fatty liver - ICD9: 571.8, ICD10: K76.0 - COMPOUNDED PRESCRIPTION 5. Edema leg - ICD9: 782.3, ICD10: R60.0 - US LEG VEIN DVT [facility]EN [facility] 6. Essential hypertension - ICD9: 401.9, ICD10: I10 - suboptimal control - Goal of BP <140/90 - COMPOUNDED PRESCRIPTION 7. Mixed hyperlipidemia - ICD9: 272.2, ICD10: E78.2 Harjinder Braswell MD Call with update in 48 hours or sooner prn. CNOV Observed: 11/10/2018 Status: COMPLETED Source: [place] 10:20 AM [facility] REPOSITORY Office Visit (FAMPWS) TRISH HUNT ([id number]) 1945 F Date Time Provider Department 11/10/18 10:20 AM HARJINDER BRASWELL FAMPWS During your visit today, we recorded the following information about you: Pulse Respiration Blood pressure Weight 76/minute 18/minute 152/82 113.4 kg Ileana Ramos SUSHIL 11/10/2018 10:45 AM Signed In the beginning of Nov had a bladder stimulator implanted. After implant started having trouble with spasms. Had stimulator removed last week and still with spasms. Getting up and down is when the pain is the worst. Using ibuprofen and that maybe takes the edge off. After had stimulator removed was given myrbetriq and vesicare which cause constipation. Stopped the medications and doubled up on her miralax. Also reports swelling to legs and feet. Harjinder Braswell MD 11/10/2018 11:49 AM Signed Patient presents with: Low Back Pain HPI: Patient presents today for office visit for follow up. Nursing Notes: Ileana Ramos SUSHIL 11/10/2018 10:45 AM Signed In the beginning of Nov had a bladder stimulator implanted. After implant started having trouble with spasms. Had stimulator removed last week and still with spasms. Getting up and down is when the pain is the worst. Using ibuprofen and that maybe takes the edge off. After had stimulator removed was given myrbetriq and vesicare which cause constipation. Stopped the medications and doubled up on her miralax. Also reports swelling to legs and feet. Spasms start in ruq and wrap around to mid back and to waste line. Hurts to move. Had some constipation and doubled up on her miralax. Bowels are working well. No diarrhea or constipation. Decreased appetite. No nausea or vomiting. No dysuria or increased urinary frequency or hematuria. Has noted some shortness of breath but is related to taking a deep breath. No cough or congestion. Getting up and down makes things worse. When she is not moving up and down she is not bad. Swelling is better with elevation. Is not moving around as much due to pain. No leg redness or warmth. Or leg pain. No fever or chills. No trauma. No pain down the legs. No numbness or weakness. MEDICATIONS: Current Outpatient Prescriptions: Albuterol Sulfate 1.25 mg/3 mL nebulizer solution Use 1 Ampule via nebulizer every 6 hours as needed. Cholecalciferol, Vitamin D3, 2,000 unit ORAL Cap Take 2 caps daily desonide (DESOWEN) 0.05 % lotion Apply 1 application to affected area twice daily. etodolac (LODINE) 400 mg tablet Take 1 tablet by mouth twice daily. (Patient not taking: Reported on 06/03/2018 ) Hydrochlorothiazide 12.5 mg capsule Take 1 capsule by mouth once daily. levothyroxine (SYNTHROID) 50 mcg tablet Take 1 tablet by mouth daily before breakfast. losartan-hydrochlorothiazide (HYZAAR) 50-12.5 mg per tablet Take 1 tablet by mouth once daily. metFORMIN ER (GLUCOPHAGE XR) 500 mg 24 hr tablet Take 1 tablet by mouth daily with breakfast. polyethylene glycol 3350 (MIRALAX, GLYCOLAX) 17 gram/dose powder Take 17 g by mouth once daily. potassium chloride (K-TAB) 10 mEq tablet Take 1 tablet by mouth daily with breakfast. simvastatin (ZOCOR) 20 mg tablet Take 1 tablet by mouth daily at bedtime. THERAPEUTIC MULTIVITAMIN TAB Take one(1) tablet daily. trospium (SANCTURA) 20 mg tablet Take 20 mg by mouth twice daily. No current facility-administered medications for this visit. ALLERGIES: ALLERGIES Allergen Reactions - Codeine Vomiting - Lisinopril Cough throat tickle - Septra [Sulfamethox* - Sulfa (Sulfonamide * - Vicodin [Hydrocodon* GI Upset PAST MEDICAL HISTORY Diagnosis Date - Benign neoplasm of colon - Displacement of lumbar intervertebral disc without myelopathy - Hypothyroid - Metabolic syndrome - Other and unspecified hyperlipidemia - Unspecified essential hypertension PAST SURGICAL HISTORY Procedure Laterality Date - CHOLECYSTECTOMY - COLONOS W/REM POLYP SNARE 03/18/16 multiple polyps - 3 year follow up - COLONOSCOP W/ OR W/O BRSH SPEC 12/14/2012 Colonoscopy - PAST SURGICAL HISTORY OF lumbosacral nerve root decompression - PAST SURGICAL HISTORY OF bladder stim - SIGMOIDOSCOPY FLEX DIAG 07/05/13 Sigmoidoscopy, flexible/colonoscopy needed in 1 year FAMILY HISTORY Problem Relation Age of Onset - Cancer Sister thyroid - Cancer Mother lung non smoker - Coronary Artery Disease Father Social History Marital status: Spouse name: Robbie Years of education: Number of children: 3 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 REVIEW OF SYSTEMS All other reviewed and negative other than HPI. HEALTH MAINTENANCE: Reviewed health maintenance issues today and recommended the following in detail. VITALS: BP 142/82 Pulse 72 Resp 18 Wt 113.4 kg (250 lb) BMI 42.91 kg/m? Last 4 Encounter Wt Readings: Date: Wt: 11/10/2018 113.4 kg (250 lb) 08/02/2018 111.6 kg (246 lb) 06/03/2018 113.4 kg (250 lb) 05/12/2018 111.6 kg (246 lb) PHYSICAL EXAMINATION: General appearance: Well appearing, alert, in no acute distress, well-hydrated, well nourished. Skin: Skin color, texture, turgor normal, no suspicious rashes or lesions Head: Normocephalic, no masses, lesions, tenderness or abnormalities Back: negative findings: symmetric, no kyphosis present, no tenderness to percussion or palpation, positive findings: uncomfortable with movement. Appears to musculoskeletal. Lungs: lungs clear to auscultation. No wheezing, rhonchi, rales Heart: RRR without murmur, gallop, or rubs. No ectopy Abdomen: Normal abdominal exam, Abdomen soft, non-tender. Bowel sounds normal. No masses, organomegaly Extremities: No deformities skin discoloration, clubbing or cyanosis. Good capillary refill. One plus edema. No redness or warmth or palpable cords. nega homans Musculoskeletal: No joint swelling, deformity, or tenderness Peripheral pulses: Normal Neuro: Gait normal. Reflexes normal and symmetric. Sensation grossly intact. ASSESSMENT/PLAN: 1. RUQ pain - ICD9: 789.01, ICD10: R10.11 (primary diagnosis) - wonder if musculoskeletal. Discussed risks and benefits of new medication with the patient. Advised them to call if any side effects or questions. - Call if symptoms worsen at all or if not better in one to two weeks - UA DIP, URINE (POC) - COMPOUNDED PRESCRIPTION 2. Acute right-sided low back pain without sciatica - ICD9: 724.2, ICD10: M54.5 - COMPOUNDED PRESCRIPTION - XR THORACIC GENERAL 3V AP/LAT/SWIMMERS - XR LUMBAR GENERAL 3V AP/LAT/L5-S1 3. SOB (shortness of breath) - ICD9: 786.05, ICD10: R06.02 Not short of breath except when changing positions. I believe is related to muscular pain. - ECG COMPLETE W INTERPRETATION - COMPOUNDED PRESCRIPTION 4. Fatty liver - ICD9: 571.8, ICD10: K76.0 - COMPOUNDED PRESCRIPTION 5. Edema leg - ICD9: 782.3, ICD10: R60.0 - US LEG VEIN DVT [facility] 6. Essential hypertension - ICD9: 401.9, ICD10: I10 - suboptimal control - Goal of BP <140/90 - COMPOUNDED PRESCRIPTION 7. Mixed hyperlipidemia - ICD9: 272.2, ICD10: E78.2 Harjinder Braswell MD Call with update in 48 hours or sooner prn. Referring Provider: SELF [[id number]] Allergies As of Date: 11/10/2018 Noted Allergy Reaction CODEINE 10/13/2005 11 - Vomiting LISINOPRIL 05/24/2013 3 - Cough Comments: throat tickle SEPTRA (SULFAMETHOXAZOLE-TRIMETHO*10/13/2005 SULFA (SULFONAMIDE ANTIBIOTICS) 10/13/2005 VICODIN (HYDROCODONE-ACETAMINOPHE*09/28/2012 8 - GI Upset Date Reviewed: 11/10/2018 Reviewed by: Ileana Ramos LPN - Fully Assessed Reason for Visit: Low Back Pain [126] Primary Visit Diagnosis:RUQ pain [R10.11] Other Visit Diagnoses:Acute right-sided low back pain without sciatica [M54.5] SOB (shortness of breath) [R06.02] Fatty liver [K76.0] Edema leg [R60.0] Essential hypertension [I10] Mixed hyperlipidemia [E78.2] Order(s):UA DIP, URINE (POC) [[id number]] Order #: [id number]. #:[id number] ECG COMPLETE W INTERPRETATION [ECG01] Order #: [id number] FUTURE LEG VEIN DVT [facility] [[id number]] Order #: [id number] FUTURE COMPOUNDED PRESCRIPTIONCbc, cmp, lipase, bnp, urine culture Fax results to [id number]: 1 EachRfl: 0 XR THORACIC GENERAL 3V AP/LAT/SWIMMERS [[id number]] Order #: [id number] FUTURE XR LUMBAR GENERAL 3V AP/LAT/L5-S1 [[id number]] Order #: [id number] FUTURE tiZANidine (ZANAFLEX) 4 mg tabletTake 1 tablet by mouth every 8 hours as needed.Disp: 20 tabletRfl: 0 Prescriptions as of 11/10/2018 Sig: ALBUTEROL SULFATE 1.25 MG/3 M* Use 1 Ampule via nebulizer ev* * CHOLECALCIFEROL (VITAMIN D3) * Take 2 caps daily COMPOUNDED PRESCRIPTION Cbc, cmp, lipase, bnp, urine * DESONIDE 0.05 % LOTION Apply 1 application to affect* ETODOLAC 400 MG TABLET Take 1 tablet by mouth twice * Patient not taking: Reported on 06/03/2018 HYDROCHLOROTHIAZIDE 12.5 MG C* Take 1 capsule by mouth once * LEVOTHYROXINE 50 MCG TABLET Take 1 tablet by mouth daily * LOSARTAN 50 MG-HYDROCHLOROTHI* Take 1 tablet by mouth once d* METFORMIN ER 500 MG TABLET,EX* Take 1 tablet by mouth daily * POLYETHYLENE GLYCOL 3350 17 G* Take 17 g by mouth once daily. POTASSIUM CHLORIDE ER 10 MEQ * Take 1 tablet by mouth daily * SIMVASTATIN 20 MG TABLET Take 1 tablet by mouth daily * * THERAPEUTIC MULTIVITAMIN TABL* Take one(1) tablet daily. TIZANIDINE 4 MG TABLET Take 1 tablet by mouth every * TROSPIUM 20 MG TABLET Take 20 mg by mouth twice bony* Problem List As Of Date 11/10/2018 Noted Resolved TOBACCO USE DISORDER [F17.200] INVALID FOR* LUMBAR DISC DISPLACEMENT [M51.26] Mixed hyperlipidemia [E78.2] Essential hypertension [I10] Obstructive chronic bronchitis with exacerbatio*INVALID FOR*12/27/2016 Edema [R60.9] INVALID FOR*01/23/2010 VITAMIN D DEFICIENCY NOS [E55.9] INVALID FOR* Edema Leg [R60.0] INVALID FOR* Calcaneal Spur [M77.30] INVALID FOR* Bite from cat [W55.01XA] INVALID FOR*12/27/2016 More... Hepatomegaly [R16.0] INVALID FOR*12/27/2016 Fatty liver [K76.0] INVALID FOR* Plantar fasciitis [M72.2] INVALID FOR*12/27/2016 Chronic bronchitis [J42] INVALID FOR* Occult blood positive stool [R19.5] INVALID FOR*12/27/2016 Benign neoplasm of colon [D12.6] INVALID FOR* Medicare annual wellness visit, initial [Z00.00]INVALID FOR*12/27/2016 Abnormal ultrasound of breast [R92.8] INVALID FOR*12/27/2016 Personal history of colonic polyps [Z86.010] INVALID FOR*12/27/2016 Polyp of colon [K63.5] INVALID FOR*12/27/2016 Hyperglycemia [R73.9] INVALID FOR*12/27/2016 Metabolic syndrome [E88.81] INVALID FOR*08/02/2018 Hypothyroid [E03.9] Diabetes (HCC) [E11.9] INVALID FOR* Obesity, Class III, BMI 40-49.9 (morbid obesity*INVALID FOR* Visit Notes: >> Ileana Ramos LPN ThuNov 10, 2018 10:37 AM Status: Signed In the beginning of Sep had a bladder stimulator implanted. After implant started having trouble with spasms. Had stimulator removed last week and still with spasms. Getting up and down is when the pain is the worst. Using ibuprofen and that maybe takes the edge off. After had stimulator removed was given myrbetriq and vesicare which cause constipation. Stopped the medications and doubled up on her miralax. Also reports swelling to legs and feet. Prescriptions ordered this encounter Disp Refills Start End COMPOUNDED PRESCRIPTION 1 Ea* 0 11/10/2018 Class: Print RX Sig: Cbc, cmp, lipase, bnp, urine culture Fax results to [id number] TIZANIDINE 4 MG TABLET 20 t* 0 11/10/2018 Route: ORAL Sig: Take 1 tablet by mouth every 8 hours as needed. Follow-up and Disposition History Recorded Encounter Status:Closed by HARJINDER BRASWELL MD on 11/10/18 OPERATIVE REPORT Observed: 10/29/2018 Status: F Source: [place] 1:13 PM [facility] REPOSITORY [facility] Medical Records Department [address] [place] [address] Operative Report 10/29/18 1310 MR#: [id number] Acct: [id number] Name: TRISH HUNT Rep #: [id number] : 1945 73 From: Earnest Herrera MD PCP: Harjinder Braswell MD Status: REG SD Y Location: [place] [address] Report of Operation Date of Procedure: 10/29/18 Pre-Operative Diagnosis: Status post placement of InterStim device with severe pain Post-Operative Diagnosis: Same Surgery/Procedure Performed:: Removal of InterStim device complete. Description of Surgical Findings:: 73-year-old female who underwent a stage I and stage II InterStim placement successful placement with good response to the stimulation had better bladder control however in follow-up in the office she had severe pain in the back pain with movement she could move around very uncomfortable in the bed, expanded the patient is not normal we give it some time to see if the pain would resolve but the pain continued we try treating off the stimulator and still has a lot of pain in the back pain in the lower back and there is concerned that maybe is an infection or may be the InterStim device was pushing against the nerve or causing some discomfort so at this point I recommended we remove the InterStim device even though it was helping her bladder control I was concerned that living with his chronic pain that was new after placement would not be tolerated. Therefore we took the patient back to the operating room today after smooth induction of a MAC local she was placed facedown on the table the prior incision was was prepped and draped in usual sterile fashion infiltrated lidocaine into the incision and also to the insertion site, made an incision along the prior pocket dissected down to the generator device open up the pseudocapsule around the generator device we took a culture did not look infected, I then cut the lead remove the generator I then made an incision over the lead entry site pulled the lead through and then did a culture of the entry site of the lead again no pus was noted. Then I gently pulled on the lead and the lead came out from the patient's back. Copiously irrigated both the wounds and then include closed the insertion site for the lead placement and then closed the pocket site after obtaining hemostasis. Again no signs of infection not clear why she was having so much pain after the placement of the InterStim device told the patient is the first time I had the sort of pain or problem but given the new onset of pain after placement of the device best regulation caregivers to remove the device and see if the pain goes away. I will probably see the patient back in the office for follow-up in a few weeks. Type of Anesthesia:: Local MAC Drains: none - Admit VTE Documentation VTE Present on Admission: No VTE Mechan Device Prophylaxis: SCD's 10/29/18 1313 <Electronically signed by Earnest Herrera MD> Date Earnest Herrera MD CC: Earnest Herrera MD; Harjinder Braswell MD Signed DISCHARGE INSTRUCTION Observed: 10/29/2018 Status: F Source: [place] 1:10 PM [facility] REPOSITORY [facility] Medical Records Department [address] [place] [address] Instructions for Home/Discharge Instructions 10/29/18 1310 MR#: [id number] Acct: [id number] Name: TRISH HUNT Rep #: [id number] : 1945 73 From: Earnest Herrera MD PCP: Harjinder Braswell MD Status: REG LAC Discharge Diet: Light diet - advance as tolerated Discharge Activity: Return to Normal Activity Call your doctor if you observe: Fever of 101 or Higher Allergies/Adverse Reactions: Allergies Sulfa (Sulfonamide Antibiotics) Allergy (Verified 10/28/18 14:36) Unknown sulfamethoxazole [From Septra] Allergy (Verified 10/28/18 14:36) Unknown trimethoprim [From Septra] Allergy (Verified 10/28/18 14:36) Unknown acetaminophen [From Vicodin] Adverse Reaction (Verified 10/28/18 14:36) Nausea/Vom/Diarrhea codeine Adverse Reaction (Verified 10/28/18 14:36) Nausea/Vom/Diarrhea hydrocodone [From Vicodin] Adverse Reaction (Verified 10/28/18 14:36) Nausea/Vom/Diarrhea lisinopril Adverse Reaction (Verified 10/28/18 14:36) cough Medications to take at Discharge Albuterol Aerosols [Ventolin Aerosols] 2.5 mg INHALATION Q4H PRN PRN 08/11/18 Hydrochlorothiazide 12.5 mg PO DAILY 08/11/18 Levothyroxine [Synthroid] 50 mcg PO DAILY 08/11/18 Metformin HCl [Metformin HCl ER] 500 mg PO DAILY 08/11/18 Multivit with Calcium,Iron,Min [Multiple Vitamins For Women] 1 each PO DAILY 08/11/18 Polyethylene Glycol 3350 [Miralax] 17 gm PO DAILY 08/11/18 Potassium Chloride [Klor-Con M10] 10 meq PO DAILY 08/11/18 Simvastatin [Zocor] 20 mg PO QHS 08/11/18 Cephalexin [Keflex] 500 mg PO Q8 #9 capsule 10/29/18 Mirabegron [Myrbetriq] 1 mg PO DAILY 30 Days #30 tab.er.24h 10/29/18 Solifenacin Succinate [Vesicare] 10 mg PO DAILY #30 tablet 10/29/18 The following prescriptions were given: Cephalexin [Keflex] 500 mg PO Q8 #9 capsule Mirabegron [Myrbetriq] 1 mg PO DAILY 30 Days #30 tab.er.24h Solifenacin Succinate [Vesicare] 10 mg PO DAILY #30 tablet Primary Care Physician: Harjinder Braswell MD [Primary Care Provider] - Test Results: Test results from this visit will be discussed in further detail at your follow-up appointment, if applicable. Please Follow Up With: Earnest Herrera MD When: in 4 weeks, please call to make an appointment. 10/29/18 1310 <Electronically signed by Earnest Herrera MD> Date Earnest Herrera MD CC: Harjinder Braswell MD Observed: 10/29/2018 Status: F Source: [place] CULTURE, DEEP WOUND 12:50 PM [facility] REPOSITORY Order Date: 06/17/17 List Antibiotics Last 48 Hours? ANCEF Has pt arrived? Y Comments: CULTURE INTERSTIM DEVICE Gram Stain Gram Stain 4+ Red Blood Cells No organisms seen Wound Culture No growth aerobically. Cult, Anaerobic No growth in 5 days. Performed By: #### M100.1500 #### [facility] [address] [place], [place], [address] Observed: 10/29/2018 Status: F Source: [place] CULTURE, DEEP WOUND 12:50 PM [facility] REPOSITORY Order Date: 06/17/17 Has pt arrived? Y Comments: INTERSTIM POCKET Gram Stain Gram Stain 3+ Red Blood Cells No organisms seen Wound Culture No growth aerobically. Cult, Anaerobic No growth in 5 days. Performed By: #### M100.1500 #### [facility] [address] [place], [address] POTASSIUM Collected: 09/02/2018 Status: F Source: [place] 11:09 AM [facility] REPOSITORY TYPE CODE TESTS RESULT OUT OF RANGE REFERENCE UNITS LAB L501.5600 3.5-5.1 mmol/L Normal K 3.8 Performed By: #### L501.5600 #### [facility] [address] [place], [address] OPERATIVE REPORT Observed: 08/18/2018 Status: F Source: [place] 8:41 AM [facility] REPOSITORY [facility] Medical Records Department [address] [place] [address] Operative Report 08/18/18 0835 MR#: [id number] Acct: [id number] Name: TRISH HUNT Rep #: [id number] : 1945 73 From: Earnest Herrera MD PCP: Harjinder Braswell MD Status: REG [facility] Y Location: [place] [address] Report of Operation Date of Procedure: 08/18/18 Pre-Operative Diagnosis: Overactive bladder, urgency and urge incontinence Post-Operative Diagnosis: Same Surgery/Procedure Performed:: InterStim therapy stage I and stage II Description of Surgical Findings:: 73-year-old female with a history of overactive bladder urgency number urge incontinence who is failed medical therapy. She underwent a percutaneous nerve evaluation trial in the office which was successful. So now she presents to the operating room for a stage I and II InterStim implant. 73-year-old female taken back to the operating room with smooth induction of MAC local she was placed prone on the table facedown pressure points padded we then exposed the lower back sacrum buttocks this was all prepped and draped in usual sterile fashion we then came in with fluoroscopy first identified the spinous process in the pelvis put a marker across that to austin the the S3 foramen location I then marked the foraminal location laterally. We then marched up 2 cm from our entry point to the S3 foramen on fluoroscopy attempted to go the needle bit into the drop in then looking at the patient's body habitus we decided to switch to a longer needle I then marched up another 2 cm in order to have the proper angle into the S3 foramen and with this we then went in with a longer needle into the S3 foramen on the patient's right side. We then tested the electrode and she had good shannon and a toe response. So I then made an incision in the skin introduced the sheath stylette advanced this in so that the radiopaque marker was three fourths of the way between the anterior and posterior plate of the sacrum. We then pulled the stylet out and placed the curved stylette and the electrode this is the electrode with 4-lead 0.012 and 3. Once we will advance the electrode into good position we put the 3 above the plate and 2 1 and 0 below the plate we checked anteriorly and a nice curve out and then we checked the lead placement checked 0 had good shannon and good toe checked 1 2 and 3 and same good shannon good tone in all 3 leads and 0 L well so because of this then we pulled the back of the sheath released and the times and the electrode was then left in place to stimulate the nerve and S3 nerve with good stimulation at 012 and 3. I then created a pocket laterally to the insertion point and pocket was deep in the subcutaneous layer for the generator pocket. I then tunneled from the insertion site to the pocket with a tunnel device and through the plastic sheath and then tunneled the lead to the pocket and then once in the pocket cleaned off the lead to make sure there is no blood tissue or fluid on it put it into the generator for the staged two-part and then to then use the using the provided bolt I then pulled secure the lead to the generator and then put into the pocket we then tested for impedance and there was no high impedance and good communication with the lead and all circuits were intact this was checked by the [employer] rep. We then closed the insertion site incision with a single stitch and then we closed the pocket with interrupted 0 Vicryls and the skin with 4-0 Monocryl patient's anesthetic was reversed and she was taken back to the PACU in good condition she will have her lead and InterStim device stimulated and she undergo training to use it and will see her back in the office in 2 weeks for checkup Type of Anesthesia:: Local MAC - Admit VTE Documentation VTE Present on Admission: No VTE Mechan Device Prophylaxis: SCD's 08/18/18 0841 <Electronically signed by Earnest Herrera MD> Date Earnest Herrera MD CC: Earnest Herrera MD; Harjinder Braswell MD Signed DISCHARGE INSTRUCTION Observed: 08/18/2018 Status: F Source: [place] 8:35 AM [facility] REPOSITORY [facility] Medical Records Department [address] [place] [address] Instructions for Home/Discharge Instructions 08/18/18 0834 MR#: [id number] Acct: [id number] Name: TRISH HUNT Rep #: [id number] : 1945 73 From: Earnest Herrera MD PCP: Harjinder Braswell MD Status: REG SDC Discharge Diet: No Restrictions Discharge Activity: Return to Normal Activity, May Not Drive - for 2 days. Additional Activity Instructions:: Please be aware that pain medications may cause nausea. You should typically eat light foods as you take your pain medication. Pain medication may cause constipation, if this is a problem for you, please discuss with your doctor. Call your doctor if your incision/area has: Sudden Increased Bleeding, Increased Pain/ Swelling, Increased Redness Call your doctor if you observe: Fever of 101 or Higher Additional Instructions: take ibuprofen, tyelnol and advil for pain. Allergies/Adverse Reactions: Allergies Sulfa (Sulfonamide Antibiotics) Allergy (Verified 08/11/18 10:25) Unknown sulfamethoxazole [From Septra] Allergy (Verified 08/11/18 10:25) Unknown trimethoprim [From Septra] Allergy (Verified 08/11/18 10:25) Unknown acetaminophen [From Vicodin] Adverse Reaction (Verified 08/11/18 10:25) Nausea/Vom/Diarrhea codeine Adverse Reaction (Verified 08/11/18 10:25) Nausea/Vom/Diarrhea hydrocodone [From Vicodin] Adverse Reaction (Verified 08/11/18 10:25) Nausea/Vom/Diarrhea lisinopril Adverse Reaction (Verified 08/11/18 10:25) cough Medications to take at Discharge Albuterol Aerosols [Ventolin Aerosols] 2.5 mg INHALATION Q4H PRN PRN 08/11/18 Hydrochlorothiazide 12.5 mg PO DAILY 08/11/18 Levothyroxine [Synthroid] 50 mcg PO DAILY 08/11/18 Metformin HCl [Metformin HCl ER] 500 mg PO DAILY 08/11/18 Multivit with Calcium,Iron,Min [Multiple Vitamins For Women] 1 each PO DAILY 08/11/18 Polyethylene Glycol 3350 [Miralax] 17 gm PO DAILY 08/11/18 Potassium Chloride [Klor-Con M10] 10 meq PO DAILY 08/11/18 Simvastatin [Zocor] 20 mg PO QHS 08/11/18 Primary Care Physician: Harjinder Braswell MD [Primary Care Provider] - Test Results: Test results from this visit will be discussed in further detail at your follow-up appointment, if applicable. Please Follow Up With: Earnest Herrera MD When: in 2 weeks, please call to make an appointment. 08/18/18 0835 <Electronically signed by Earnest Herrera MD> Date Earnest Herrera MD CC: Harjinder Braswell MD PROGRESS Observed: 08/02/2018 Status: COMPLETED Source: [place] 1:19 PM [facility] REPOSITORY HNO ID: [id number] Author: Harjinder Braswell Service: (none) Author Type: Physician Type: Progress Notes Filed: 08/02/2018 6:51 PM Note Text: . Patient presents with: Edema: bilateral legs/ankles for about 2 weeks Recheck: review labs HPI: Patient presents today for office visit for follow up. Nursing Notes: Ileana Ramos SALES AND BUSINESS DEVELOPMENT MANAGER 08/02/2018 1:14 PM Signed Has appointment for medtronic bladder control pacemaker 08/18/18 with [facility]. Had applied temporary placement and worked wonderfully. Was getting pain in her upper abdomen like her gallbladder over the last two weeks. No heartburn. No fever or chills. No changes in the bowels. No cough or Shortness of breath. Is now gone. Wants to watch. Will call if recurs. HYPERTENSION: no chest pain or breathing issues. Has had some increased edema the last two weeks. Does go down two weeks. Elevation helps. Not hot or red. They are better today. DM:sugars are doing well. HLD:no myalgias. HYPOTHYROID:energy level is doing well. No changes in hair or skin. Urology: excited about urine surgery. Labs from [facility] shows normal bmp with K of 3.3. hba1c is 5.6 Hit her left leg on ankle over the weekend. Is bruised. Is feeling better. Recommended tetanus. MEDICATIONS: Current Outpatient Prescriptions: trospium (SANCTURA) 20 mg tablet Take 20 mg by mouth twice daily. desonide (DESOWEN) 0.05 % lotion Apply 1 application to affected area twice daily. metFORMIN ER (GLUCOPHAGE XR) 500 mg 24 hr tablet Take 1 tablet by mouth daily with breakfast. Hydrochlorothiazide 12.5 mg capsule Take 1 capsule by mouth once daily. losartan-hydrochlorothiazide (HYZAAR) 50-12.5 mg per tablet Take 1 tablet by mouth once daily. levothyroxine (SYNTHROID) 50 mcg tablet Take 1 tablet by mouth daily before breakfast. simvastatin (ZOCOR) 20 mg tablet Take 1 tablet by mouth daily at bedtime. polyethylene glycol 3350 (MIRALAX, GLYCOLAX) 17 gram/dose powder Take 17 g by mouth once daily. etodolac (LODINE) 400 mg tablet Take 1 tablet by mouth twice daily. (Patient not taking: Reported on 06/03/2018 ) Albuterol Sulfate 1.25 mg/3 mL nebulizer solution Use 1 Ampule via nebulizer every 6 hours as needed. Cholecalciferol, Vitamin D3, 2,000 unit ORAL Cap Take 2 caps daily THERAPEUTIC MULTIVITAMIN TAB Take one(1) tablet daily. No current facility-administered medications for this visit. ALLERGIES: ALLERGIES Allergen Reactions - Codeine Vomiting - Lisinopril Cough throat tickle - Septra [Sulfamethox* - Sulfa (Sulfonamide * - Vicodin [Hydrocodon* GI Upset PAST MEDICAL HISTORY Diagnosis Date - Benign neoplasm of colon - Displacement of lumbar intervertebral disc without myelopathy - Hypothyroid - Metabolic syndrome - Other and unspecified hyperlipidemia - Unspecified essential hypertension PAST SURGICAL HISTORY Procedure Laterality Date - CHOLECYSTECTOMY - COLONOS W/REM POLYP SNARE 03/18/16 multiple polyps - 3 year follow up - COLONOSCOP W/ OR W/O [facility] SPEC 12/14/2012 Colonoscopy - PAST SURGICAL HISTORY OF lumbosacral nerve root decompression - SIGMOIDOSCOPY FLEX DIAG 07/05/13 Sigmoidoscopy, flexible/colonoscopy needed in 1 year FAMILY HISTORY Problem Relation Age of Onset - Cancer Sister thyroid - Cancer Mother lung non smoker - Coronary Artery Disease Father Social History Marital status: Spouse name: Robbie Years of education: Number of children: 3 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 REVIEW OF SYSTEMS GI: Negative for change in bowel habit : Negative All other reviewed and negative other than HPI. HEALTH MAINTENANCE: Reviewed health maintenance issues today and recommended the following in detail. BP CONTROLLED (<130/80) due on 1961 INFLUENZA(1)-recommended. VITALS: BP 132/72 Pulse 84 Resp 16 Wt 111.6 kg (246 lb) BMI 42.23 kg/m? Last 4 Encounter Wt Readings: Date: Wt: 08/02/2018 111.6 kg (246 lb) 06/03/2018 113.4 kg (250 lb) 05/12/2018 111.6 kg (246 lb) 08/07/2017 110.7 kg (244 lb) PHYSICAL EXAMINATION: General appearance: Well appearing, alert, in no acute distress, well-hydrated, well nourished. Skin: Skin color, texture, turgor normal, no suspicious rashes or lesions Head: Normocephalic, no masses, lesions, tenderness or abnormalities Lungs: Lungs clear to auscultation. No wheezing, rhonchi, rales Heart: RRR without murmur, gallop, or rubs. No ectopy Chest wall nontender. Abdomen: Normal abdominal exam, Abdomen soft, non-tender. Bowel sounds normal. No masses, organomegaly Extremities: one plus edema. No cords. No redness or warmth. Nontender. Has an abrasion on right leg. No signs of infection. Musculoskeletal: No joint swelling, deformity, or tenderness PSYCH:Affect normal. Normal speech. Normal eye contact ASSESSMENT/PLAN: 1. Hypokalemia - ICD9: 276.8, ICD10: E87.6 (primary diagnosis) - add potassium. - POTASSIUM BLD - POTASSIUM CHLORIDE ER 10 MEQ TABLET,EXTENDED RELEASE 2. Type 2 diabetes mellitus without complication, without long-term current use of insulin (HCC) - ICD9: 250.00, ICD10: E11.9 Controlled. - Continue current medications - METFORMIN ER 500 MG TABLET,EXTENDED RELEASE 24 HR - HGB A1C 3. Hypothyroidism, unspecified type - ICD9: 244.9, ICD10: E03.9 - Instructed patient on importance of taking on an empty stomach either first thing in the morning or at bedtime. - LEVOTHYROXINE 50 MCG TABLET 4. Obesity, Class III, BMI 40-49.9 (morbid obesity) (HCC) - ICD9: 278.01, ICD10: E66.01 - continue to work on weight loss. 5. Edema leg - ICD9: 782.3, ICD10: R60.0 - offered to work up. Declines. Elevate legs prn. 6. Essential hypertension - ICD9: 401.9, ICD10: I10 - good control - Recommended regular aerobic exercise. - Recommend home blood pressure monitoring, to bring results in on next visit - Goal of BP <130/80 - HYDROCHLOROTHIAZIDE 12.5 MG CAPSULE - LOSARTAN 50 MG-HYDROCHLOROTHIAZIDE 12.5 MG TABLET 7. Mixed hyperlipidemia - ICD9: 272.2, ICD10: E78.2 - good control - Continue current medication. - COMP METABOLIC PANEL - LIPID PANEL BASIC 8. Need for vaccination - ICD9: V05.9, ICD10: Z23 - TDAP VACCINE AGE 7+ IM 10. Abrasion of left lower extremity, initial encounter - ICD9: 916.0, ICD10: S80.812A - neosporin prn. Call if symptoms worsen at all or if not better in one to two weeks - TDAP VACCINE AGE 7+ IM Harjinder Braswell MD CNOV Observed: 08/02/2018 Status: COMPLETED Source: [place] 12:20 PM [facility] REPOSITORY Office Visit (FAMPWS) TRISH HUNT ([id number]) 1945 F Date Time Provider Department 08/02/18 12:20 PM HARJINDER BRASWELLWS During your visit today, we recorded the following information about you: Pulse Respiration Blood pressure Weight 84/minute 16/minute 132/72 111.6 kg Ileana Ramos LPN 08/02/2018 1:14 PM Signed Has appointment for medtronic bladder control pacemaker 08/18/18 with [facility]. Had applied temporary placement and worked wonderfully. Harjinder Braswell MD 08/02/2018 6:51 PM Signed . Patient presents with: Edema: bilateral legs/ankles for about 2 weeks Recheck: review labs HPI: Patient presents today for office visit for follow up. Nursing Notes: Ileana Ramos LPN 08/02/2018 1:14 PM Signed Has appointment for medtronic bladder control pacemaker 08/18/18 with [facility]. Had applied temporary placement and worked wonderfully. Was getting pain in her upper abdomen like her gallbladder over the last two weeks. No heartburn. No fever or chills. No changes in the bowels. No cough or Shortness of breath. Is now gone. Wants to watch. Will call if recurs. HYPERTENSION: no chest pain or breathing issues. Has had some increased edema the last two weeks. Does go down two weeks. Elevation helps. Not hot or red. They are better today. DM:sugars are doing well. HLD:no myalgias. HYPOTHYROID:energy level is doing well. No changes in hair or skin. Urology: excited about urine surgery. Labs from [facility] shows normal bmp with K of 3.3. hba1c is 5.6 Hit her left leg on ankle over the weekend. Is bruised. Is feeling better. Recommended tetanus. MEDICATIONS: Current Outpatient Prescriptions: trospium (SANCTURA) 20 mg tablet Take 20 mg by mouth twice daily. desonide (DESOWEN) 0.05 % lotion Apply 1 application to affected area twice daily. metFORMIN ER (GLUCOPHAGE XR) 500 mg 24 hr tablet Take 1 tablet by mouth daily with breakfast. Hydrochlorothiazide 12.5 mg capsule Take 1 capsule by mouth once daily. losartan-hydrochlorothiazide (HYZAAR) 50-12.5 mg per tablet Take 1 tablet by mouth once daily. levothyroxine (SYNTHROID) 50 mcg tablet Take 1 tablet by mouth daily before breakfast. simvastatin (ZOCOR) 20 mg tablet Take 1 tablet by mouth daily at bedtime. polyethylene glycol 3350 (MIRALAX, GLYCOLAX) 17 gram/dose powder Take 17 g by mouth once daily. etodolac (LODINE) 400 mg tablet Take 1 tablet by mouth twice daily. (Patient not taking: Reported on 06/03/2018 ) Albuterol Sulfate 1.25 mg/3 mL nebulizer solution Use 1 Ampule via nebulizer every 6 hours as needed. Cholecalciferol, Vitamin D3, 2,000 unit ORAL Cap Take 2 caps daily THERAPEUTIC MULTIVITAMIN TAB Take one(1) tablet daily. No current facility-administered medications for this visit. ALLERGIES: ALLERGIES Allergen Reactions - Codeine Vomiting - Lisinopril Cough throat tickle - Septra [Sulfamethox* - Sulfa (Sulfonamide * - Vicodin [Hydrocodon* GI Upset PAST MEDICAL HISTORY Diagnosis Date - Benign neoplasm of colon - Displacement of lumbar intervertebral disc without myelopathy - Hypothyroid - Metabolic syndrome - Other and unspecified hyperlipidemia - Unspecified essential hypertension PAST SURGICAL HISTORY Procedure Laterality Date - CHOLECYSTECTOMY - COLONOS W/REM POLYP SNARE 03/18/16 multiple polyps - 3 year follow up - COLONOSCOP W/ OR W/O [facility] SPEC 12/14/2012 Colonoscopy - PAST SURGICAL HISTORY OF lumbosacral nerve root decompression - SIGMOIDOSCOPY FLEX DIAG 07/05/13 Sigmoidoscopy, flexible/colonoscopy needed in 1 year FAMILY HISTORY Problem Relation Age of Onset - Cancer Sister thyroid - Cancer Mother lung non smoker - Coronary Artery Disease Father Social History Marital status: Spouse name: Robbie Years of education: Number of children: 3 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 REVIEW OF SYSTEMS GI: Negative for change in bowel habit : Negative All other reviewed and negative other than HPI. HEALTH MAINTENANCE: Reviewed health maintenance issues today and recommended the following in detail. BP CONTROLLED (<130/80) due on 1961 INFLUENZA(1)-recommended. VITALS: BP 132/72 Pulse 84 Resp 16 Wt 111.6 kg (246 lb) BMI 42.23 kg/m? Last 4 Encounter Wt Readings: Date: Wt: 08/02/2018 111.6 kg (246 lb) 06/03/2018 113.4 kg (250 lb) 05/12/2018 111.6 kg (246 lb) 08/07/2017 110.7 kg (244 lb) PHYSICAL EXAMINATION: General appearance: Well appearing, alert, in no acute distress, well-hydrated, well nourished. Skin: Skin color, texture, turgor normal, no suspicious rashes or lesions Head: Normocephalic, no masses, lesions, tenderness or abnormalities Lungs: Lungs clear to auscultation. No wheezing, rhonchi, rales Heart: RRR without murmur, gallop, or rubs. No ectopy Chest wall nontender. Abdomen: Normal abdominal exam, Abdomen soft, non-tender. Bowel sounds normal. No masses, organomegaly Extremities: one plus edema. No cords. No redness or warmth. Nontender. Has an abrasion on right leg. No signs of infection. Musculoskeletal: No joint swelling, deformity, or tenderness PSYCH:Affect normal. Normal speech. Normal eye contact ASSESSMENT/PLAN: 1. Hypokalemia - ICD9: 276.8, ICD10: E87.6 (primary diagnosis) - add potassium. - POTASSIUM BLD - POTASSIUM CHLORIDE ER 10 MEQ TABLET,EXTENDED RELEASE 2. Type 2 diabetes mellitus without complication, without long-term current use of insulin ([facility]) - ICD9: 250.00, ICD10: E11.9 Controlled. - Continue current medications - METFORMIN ER 500 MG TABLET,EXTENDED RELEASE 24 HR - HGB A1C 3. Hypothyroidism, unspecified type - ICD9: 244.9, ICD10: E03.9 - Instructed patient on importance of taking on an empty stomach either first thing in the morning or at bedtime. - LEVOTHYROXINE 50 MCG TABLET 4. Obesity, Class III, BMI 40-49.9 (morbid obesity) ([facility]) - ICD9: 278.01, ICD10: E66.01 - continue to work on weight loss. 5. Edema leg - ICD9: 782.3, ICD10: R60.0 - offered to work up. Declines. Elevate legs prn. 6. Essential hypertension - ICD9: 401.9, ICD10: I10 - good control - Recommended regular aerobic exercise. - Recommend home blood pressure monitoring, to bring results in on next visit - Goal of BP <130/80 - HYDROCHLOROTHIAZIDE 12.5 MG CAPSULE - LOSARTAN 50 MG-HYDROCHLOROTHIAZIDE 12.5 MG TABLET 7. Mixed hyperlipidemia - ICD9: 272.2, ICD10: E78.2 - good control - Continue current medication. - COMP METABOLIC PANEL - LIPID PANEL BASIC 8. Need for vaccination - ICD9: V05.9, ICD10: Z23 - TDAP VACCINE AGE 7+ IM 10. Abrasion of left lower extremity, initial encounter - ICD9: 916.0, ICD10: S80.812A - neosporin prn. Call if symptoms worsen at all or if not better in one to two weeks - TDAP VACCINE AGE 7+ IM Harjinder Braswell MD Referring Provider: SELF [[id number]] Allergies As of Date: 08/02/2018 Noted Allergy Reaction CODEINE 10/13/2005 11 - Vomiting LISINOPRIL 05/24/2013 3 - Cough Comments: throat tickle SEPTRA (SULFAMETHOXAZOLE-TRIMETHO*10/13/2005 SULFA (SULFONAMIDE ANTIBIOTICS) 10/13/2005 VICODIN (HYDROCODONE-ACETAMINOPHE*09/28/2012 8 - GI Upset Date Reviewed: 08/02/2018 Reviewed by: Ileana Ramos LPN - Fully Assessed Reason for Visit: Edema [39] Cmt: bilateral legs/ankles for about 2 weeks Recheck [92] Cmt: review labs Reason For Visit History Recorded Primary Visit Diagnosis:Hypokalemia [E87.6] Other Visit Diagnoses:Type 2 diabetes mellitus without complication, without long-term current use of insulin ([facility]) [E11.9] Hypothyroidism, unspecified type [E03.9] Obesity, Class III, BMI 40-49.9 (morbid obesity) ([facility]) [E66.01] Edema leg [R60.0] Essential hypertension [I10] Mixed hyperlipidemia [E78.2] Need for vaccination [Z23] Abrasion of left lower extremity, initial encounter [S80.812A] Order(s):POTASSIUM BLD [SQK1] Order #: [id number] FUTURE potassium chloride (K-TAB) 10 mEq tabletTake 1 tablet by mouth daily with breakfast.Disp: 30 tabletRfl: 11 TDAP VACCINE AGE 7+ IM [[id number]] Order #: [id number] COMP METABOLIC PANEL [SQCMP] Order #: [id number] FUTURE LIPID PANEL BASIC [SQLIPB] Order #: [id number] FUTURE metFORMIN ER (GLUCOPHAGE XR) 500 mg 24 hr tabletTake 1 tablet by mouth daily with breakfast.Disp: 90 tabletRfl: 3 Hydrochlorothiazide 12.5 mg capsuleTake 1 capsule by mouth once daily.Disp: 90 capsuleRfl: 0 losartan-hydrochlorothiazide (HYZAAR) 50-12.5 mg per tabletTake 1 tablet by mouth once daily.Disp: 90 tabletRfl: 3 levothyroxine (SYNTHROID) 50 mcg tabletTake 1 tablet by mouth daily before breakfast.Disp: 90 tabletRfl: 3 HGB A1C [OQOTL0Z] Order #: [id number] FUTURE Prescriptions as of 08/02/2018 Sig: POTASSIUM CHLORIDE ER 10 MEQ * Take 1 tablet by mouth daily * METFORMIN ER 500 MG TABLET,EX* Take 1 tablet by mouth daily * HYDROCHLOROTHIAZIDE 12.5 MG C* Take 1 capsule by mouth once * LOSARTAN 50 MG-HYDROCHLOROTHI* Take 1 tablet by mouth once d* LEVOTHYROXINE 50 MCG TABLET Take 1 tablet by mouth daily * TROSPIUM 20 MG TABLET Take 20 mg by mouth twice bony* DESONIDE 0.05 % LOTION Apply 1 application to affect* SIMVASTATIN 20 MG TABLET Take 1 tablet by mouth daily * POLYETHYLENE GLYCOL 3350 17 G* Take 17 g by mouth once daily. ETODOLAC 400 MG TABLET Take 1 tablet by mouth twice * Patient not taking: Reported on 06/03/2018 ALBUTEROL SULFATE 1.25 MG/3 M* Use 1 Ampule via nebulizer ev* * CHOLECALCIFEROL (VITAMIN D3) * Take 2 caps daily * THERAPEUTIC MULTIVITAMIN TABL* Take one(1) tablet daily. Problem List As Of Date 08/02/2018 Noted Resolved TOBACCO USE DISORDER [F17.200] INVALID FOR* LUMBAR DISC DISPLACEMENT [M51.26] Mixed hyperlipidemia [E78.2] Essential hypertension [I10] Obstructive chronic bronchitis with exacerbatio*INVALID FOR*12/27/2016 Edema [R60.9] INVALID FOR*01/23/2010 VITAMIN D DEFICIENCY NOS [E55.9] INVALID FOR* Edema Leg [R60.0] INVALID FOR* Calcaneal Spur [M77.30] INVALID FOR* Bite from cat [W55.01XA] INVALID FOR*12/27/2016 More... Hepatomegaly [R16.0] INVALID FOR*12/27/2016 Fatty liver [K76.0] INVALID FOR* Plantar fasciitis [M72.2] INVALID FOR*12/27/2016 Chronic bronchitis [J42] INVALID FOR* Occult blood positive stool [R19.5] INVALID FOR*12/27/2016 Benign neoplasm of colon [D12.6] INVALID FOR* Medicare annual wellness visit, initial [Z00.00]INVALID FOR*12/27/2016 Abnormal ultrasound of breast [R92.8] INVALID FOR*12/27/2016 Personal history of colonic polyps [Z86.010] INVALID FOR*12/27/2016 Polyp of colon [K63.5] INVALID FOR*12/27/2016 Hyperglycemia [R73.9] INVALID FOR*12/27/2016 Metabolic syndrome [E88.81] INVALID FOR*08/02/2018 Hypothyroid [E03.9] Diabetes (HCC) [E11.9] INVALID FOR* Obesity, Class III, BMI 40-49.9 (morbid obesity*INVALID FOR* Visit Notes: >> Ileana Ramos LPN Mon Aug 02, 2018 1:11 PM Status: Signed Has appointment for Z2 bladder control pacemaker 08/18/18 with [facility]. Had applied temporary placement and worked wonderfully. Prescriptions ordered this encounter Disp Refills Start End POTASSIUM CHLORIDE ER 10 MEQ TABLET,* 30 t* 11 08/02/2018 Route: ORAL Sig: Take 1 tablet by mouth daily with breakfast. METFORMIN ER 500 MG TABLET,EXTENDED * 90 t* 3 08/02/2018 Route: ORAL Sig: Take 1 tablet by mouth daily with breakfast. HYDROCHLOROTHIAZIDE 12.5 MG CAPSULE 90 c* 0 08/02/2018 Route: ORAL Sig: Take 1 capsule by mouth once daily. LOSARTAN 50 MG-HYDROCHLOROTHIAZIDE 1* 90 t* 3 08/02/2018 Route: ORAL Sig: Take 1 tablet by mouth once daily. LEVOTHYROXINE 50 MCG TABLET 90 t* 3 08/02/2018 Route: ORAL Sig: Take 1 tablet by mouth daily before breakfast. Medications Discontinued During This Encounter metFORMIN ER (GLUCOPHAGE XR) 500 mg * 90 t* 0 05/17/2018 08/02/2018 Route: ORAL Sig: Take 1 tablet by mouth daily with breakfast. Disc: Reason for discontinue is not on file. Hydrochlorothiazide 12.5 mg capsule 90 c* 0 05/17/2018 08/02/2018 Route: ORAL Sig: Take 1 capsule by mouth once daily. Disc: Reason for discontinue is not on file. losartan-hydrochlorothiazide (HYZAAR* 90 t* 0 05/17/2018 08/02/2018 Route: ORAL Sig: Take 1 tablet by mouth once daily. Disc: Reason for discontinue is not on file. levothyroxine (SYNTHROID) 50 mcg tab* 90 t* 0 05/17/2018 08/02/2018 Route: ORAL Sig: Take 1 tablet by mouth daily before breakfast. Disc: Reason for discontinue is not on file. Disposition: Return in about 6 months (around 01/30/2019). Follow-up and Disposition History Recorded Encounter Status:Closed by HARJINDER BRASWELL MD on 08/02/18 BASIC METABOLIC Collected: 07/20/2018 Status: F Source: [facility] ([facility] 12:07 PM [facility] REPOSITORY TYPE CODE TESTS RESULT OUT OF RANGE REFERENCE UNITS LAB L501.0100 74-106 mg/dL Normal GLU 103 Result Comment: Fasting Glucose result from 100 to 125 mg/dL suggests IMPAIRED HOMEOSTASIS per A.D.A. criteria. Please note revised GLUCOSE reference range effective 2017. LAB L501.1000 7-18 mg/dL High BUN 19 LAB L501.1100 0.55-1.02 mg/dL Normal CREAT,SERUM 0.94 Result Comment: The validity of the calculated GFR AND GFRAA in patients over 70 years has not been determined. Clinical correlation is essential. LAB L501.1110 >60 mL/min Normal EST GFR 62 Result Comment: Non- GFR Calc LAB L501.1115 >60 mL/min Normal EST GFR - AA 75 Result Comment: GFR Calc LAB L501.1300 10-20 RATIO High BUN/CRE 20.2 LAB L501.2200 8.5-10.1 mg/dL CA Normal 9.0 LAB L501.5300 136-145 mmol/L NA Normal 143 LAB L501.5600 3.5-5.1 mmol/L Low K 3.3 LAB L501.5900 98-107 mmol/L CL Normal 105 LAB L501.6100 21.0-32.0 mmol/L Normal CO2 28.0 LAB L501.6200 5-15 Normal GAP 10 Performed By: #### L500.2500 #### [facility] [address] [place], [address] HEMOGLOBIN A1C Collected: 07/20/2018 Status: F Source: [place] 12:07 PM [facility] REPOSITORY TYPE CODE TESTS RESULT OUT OF RANGE REFERENCE UNITS LAB L501.9985 4.2-6.3 % Normal HGB A1C 5.6 Performed By: #### L501.9985 #### [facility] [address] [place], [address] PROGRESS Observed: 06/03/2018 Status: COMPLETED Source: [place] 8:40 PM [facility] REPOSIT[facility] HNO ID: [id number] Author: Isra Guadalupe (Jessica) Michael Service: (none) Author Type: Physician Coupon Manifest Clerk Type: Progress Notes Filed: 06/03/2018 8:43 PM Note Text: 73 year old female with c/o itchy rash on left neck over the last 3 days which is spreading. Patient does not recall getting any worse she would've contacted potentially poisonous plants. Doesn't recall any insect bites. She was around her daughter who had shingles the patient has had chickenpox in the past and also has had tingles vaccines. She denies any pain, severe itching. She has been putting [id number] cortisone without relief. Hemoglobin A1C Date Value 01/29/2018 5.8 07/10/2017 6.7 09/02/2012 5.8 % ) HISTORIES FAMILY HISTORY Problem Relation Age of Onset - Cancer Sister thyroid - Cancer Mother lung non smoker - Coronary Artery Disease Father PAST MEDICAL HISTORY Diagnosis Date - Benign neoplasm of colon - Displacement of lumbar intervertebral disc without myelopathy - Hypothyroid - Metabolic syndrome - Other and unspecified hyperlipidemia - Unspecified essential hypertension PAST SURGICAL HISTORY Procedure Laterality Date - CHOLECYSTECTOMY - COLONOS W/REM POLYP SNARE 03/18/16 multiple polyps - 3 year follow up - COLONOSCOP W/ OR W/O [facility] SPEC 12/14/2012 Colonoscopy - PAST SURGICAL HISTORY OF lumbosacral nerve root decompression - SIGMOIDOSCOPY FLEX DIAG 07/05/13 Sigmoidoscopy, flexible/colonoscopy needed in 1 year Social History Marital status: Spouse name: Robbie Years of education: Number of children: 3 Occupational History 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 Social History Main Topics Smoking status: Former Smoker Packs/day: 0.00 Years: 0.00 Types: Cigarettes Quit date: 12/30/2008 Smokeless tobacco: Never Used Alcohol use: Yes Comment: wine Drug use: No Sexual activity: Yes Partners with: Male ACTIVE PROBLEM LIST Tobacco Use Disorder Displacement of Lumbar Intervertebral Disc Without Myelopathy Mixed Hyperlipidemia Essential Hypertension Unspecified Vitamin D Deficiency Edema Leg Calcaneal Spur Fatty Liver Chronic Bronchitis (Hcc) Benign Neoplasm of Colon Metabolic Syndrome Hypothyroid Diabetes (Hcc) Obesity, Class Iii, Bmi 40-49.9 (Morbid Obesity) (Hcc) Current Outpatient Prescriptions: trospium (SANCTURA) 20 mg tablet Take 20 mg by mouth twice daily. Disp: Rfl: metFORMIN ER (GLUCOPHAGE XR) 500 mg 24 hr tablet Take 1 tablet by mouth daily with breakfast. Disp: 90 tablet Rfl: 0 Hydrochlorothiazide 12.5 mg capsule Take 1 capsule by mouth once daily. Disp: 90 capsule Rfl: 0 losartan-hydrochlorothiazide (HYZAAR) 50-12.5 mg per tablet Take 1 tablet by mouth once daily. Disp: 90 tablet Rfl: 0 levothyroxine (SYNTHROID) 50 mcg tablet Take 1 tablet by mouth daily before breakfast. Disp: 90 tablet Rfl: 0 simvastatin (ZOCOR) 20 mg tablet Take 1 tablet by mouth daily at bedtime. Disp: 90 tablet Rfl: 3 polyethylene glycol 3350 (MIRALAX, GLYCOLAX) 17 gram/dose powder Take 17 g by mouth once daily. Disp: 1 Bottle Rfl: 5 Albuterol Sulfate 1.25 mg/3 mL nebulizer solution Use 1 Ampule via nebulizer every 6 hours as needed. Disp: 25 Vial Rfl: 3 Cholecalciferol, Vitamin D3, 2,000 unit ORAL Cap Take 2 caps daily Disp: 1 Cap Rfl: 1 THERAPEUTIC MULTIVITAMIN TAB Take one(1) tablet daily. Disp: 1 Rfl: 0 desonide (DESOWEN) 0.05 % lotion Apply 1 application to affected area twice daily. Disp: 30 mL Rfl: 1 predniSONE (DELTASONE) 10 mg tablet Take 4 tabs daily x 3 days, then 3 tabs x 3 days, 2 tabs x 3 days, then 1 tab x3 days with food. Disp: 30 tablet Rfl: 0 etodolac (LODINE) 400 mg tablet Take 1 tablet by mouth twice daily. (Patient not taking: Reported on 06/03/2018 ) Disp: 180 tablet Rfl: 0 No current facility-administered medications for this visit. HBA1C due on 1948 BLOOD PRESSURE CONTROLLED due on 1961 EXAM: BP 130/52 Pulse 100 Temp 37.1 ?C (98.8 ?F) (Tympanic) Resp 24 Wt 113.4 kg (250 lb) BMI 42.91 kg/m? Pleasant Obese older woman in no acute distress. Alert and oriented all spheres. Normal affect and cognition. Speech normal. No deficits to learning or comprehension. Skin warm, dry, pink to lips and nailbeds. Normal turgor. Patient has a linear patch of erythema and raised plaque along the ankle on the left side of her neck with several smaller pink to red plaques and soft papules approximately 15 around the jawline and lateral neck. Respirations regular and unlabored. Chest CTA. HRRR without murmur or gallop. ASSESSMENT/PLAN: 1. Contact dermatitis, unspecified contact dermatitis type, unspecified trigger - ICD9: 692.9, ICD10: L25.9 Suspect poison gissel. Advised on potential spread. It actually took she might have even a few small lesions on the side of her face. If these are worsening she is to let us know. Recommend prednisone taper. Monitor for elevated blood sugars. Desonide as needed in the interim. Follow-up if symptoms are not improving over the course of the next 12 days or recur. - DESONIDE 0.05 % LOTION - PREDNISONE 10 MG TABLET Patient (guardian) expressed understanding of instructions and agrees with plan. JESSICA Whitten Observed: 06/03/2018 Status: COMPLETED Source: [place] 4:00 PM [facility] REPOSITORY [facility] TRISH HUNT ([id number]) 1945 F Date Time Provider Department 06/03/18 4:00 PM Isra RODRIGUEZ) RADHA During your visit today, we recorded the following information about you: Temperature Pulse Respiration Blood pressure 98.8 degrees 100/minute 24/minute 130/52 Weight 113.4 kg M Collins Rodriguez PA-C 06/03/2018 8:43 PM Signed 73 year old female with c/o itchy rash on left neck over the last 3 days which is spreading. Patient does not recall getting any worse she would've contacted potentially poisonous plants. Doesn't recall any insect bites. She was around her daughter who had shingles the patient has had chickenpox in the past and also has had tingles vaccines. She denies any pain, severe itching. She has been putting [id number] cortisone without relief. Hemoglobin A1C Date Value 01/29/2018 5.8 07/10/2017 6.7 09/02/2012 5.8 % ) HISTORIES FAMILY HISTORY Problem Relation Age of Onset - Cancer Sister thyroid - Cancer Mother lung non smoker - Coronary Artery Disease Father PAST MEDICAL HISTORY Diagnosis Date - Benign neoplasm of colon - Displacement of lumbar intervertebral disc without myelopathy - Hypothyroid - Metabolic syndrome - Other and unspecified hyperlipidemia - Unspecified essential hypertension PAST SURGICAL HISTORY Procedure Laterality Date - CHOLECYSTECTOMY - COLONOS W/REM POLYP SNARE 03/18/16 multiple polyps - 3 year follow up - COLONOSCOP W/ OR W/O [facility] SPEC 12/14/2012 Colonoscopy - PAST SURGICAL HISTORY OF lumbosacral nerve root decompression - SIGMOIDOSCOPY FLEX DIAG 07/05/13 Sigmoidoscopy, flexible/colonoscopy needed in 1 year Social History Marital status: Spouse name: Robbie Years of education: Number of children: 3 Occupational History 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 Social History Main Topics Smoking status: Former Smoker Packs/day: 0.00 Years: 0.00 Types: Cigarettes Quit date: 12/30/2008 Smokeless tobacco: Never Used Alcohol use: Yes Comment: wine Drug use: No Sexual activity: Yes Partners with: Male ACTIVE PROBLEM LIST Tobacco Use Disorder Displacement of Lumbar Intervertebral Disc Without Myelopathy Mixed Hyperlipidemia Essential Hypertension Unspecified Vitamin D Deficiency Edema Leg Calcaneal Spur Fatty Liver Chronic Bronchitis (Hcc) Benign Neoplasm of Colon Metabolic Syndrome Hypothyroid Diabetes (Hcc) Obesity, Class Iii, Bmi 40-49.9 (Morbid Obesity) (Hcc) Current Outpatient Prescriptions: trospium (SANCTURA) 20 mg tablet Take 20 mg by mouth twice daily. Disp: Rfl: metFORMIN ER (GLUCOPHAGE XR) 500 mg 24 hr tablet Take 1 tablet by mouth daily with breakfast. Disp: 90 tablet Rfl: 0 Hydrochlorothiazide 12.5 mg capsule Take 1 capsule by mouth once daily. Disp: 90 capsule Rfl: 0 losartan-hydrochlorothiazide (HYZAAR) 50-12.5 mg per tablet Take 1 tablet by mouth once daily. Disp: 90 tablet Rfl: 0 levothyroxine (SYNTHROID) 50 mcg tablet Take 1 tablet by mouth daily before breakfast. Disp: 90 tablet Rfl: 0 simvastatin (ZOCOR) 20 mg tablet Take 1 tablet by mouth daily at bedtime. Disp: 90 tablet Rfl: 3 polyethylene glycol 3350 (MIRALAX, GLYCOLAX) 17 gram/dose powder Take 17 g by mouth once daily. Disp: 1 Bottle Rfl: 5 Albuterol Sulfate 1.25 mg/3 mL nebulizer solution Use 1 Ampule via nebulizer every 6 hours as needed. Disp: 25 Vial Rfl: 3 Cholecalciferol, Vitamin D3, 2,000 unit ORAL Cap Take 2 caps daily Disp: 1 Cap Rfl: 1 THERAPEUTIC MULTIVITAMIN TAB Take one(1) tablet daily. Disp: 1 Rfl: 0 desonide (DESOWEN) 0.05 % lotion Apply 1 application to affected area twice daily. Disp: 30 mL Rfl: 1 predniSONE (DELTASONE) 10 mg tablet Take 4 tabs daily x 3 days, then 3 tabs x 3 days, 2 tabs x 3 days, then 1 tab x3 days with food. Disp: 30 tablet Rfl: 0 etodolac (LODINE) 400 mg tablet Take 1 tablet by mouth twice daily. (Patient not taking: Reported on 06/03/2018 ) Disp: 180 tablet Rfl: 0 No current facility-administered medications for this visit. HBA1C due on 1948 BLOOD PRESSURE CONTROLLED due on 1961 EXAM: BP 130/52 Pulse 100 Temp 37.1 ?C (98.8 ?F) (Tympanic) Resp 24 Wt 113.4 kg (250 lb) BMI 42.91 kg/m? Pleasant Obese older woman in no acute distress. Alert and oriented all spheres. Normal affect and cognition. Speech normal. No deficits to learning or comprehension. Skin warm, dry, pink to lips and nailbeds. Normal turgor. Patient has a linear patch of erythema and raised plaque along the ankle on the left side of her neck with several smaller pink to red plaques and soft papules approximately 15 around the jawline and lateral neck. Respirations regular and unlabored. Chest CTA. HRRR without murmur or gallop. ASSESSMENT/PLAN: 1. Contact dermatitis, unspecified contact dermatitis type, unspecified trigger - ICD9: 692.9, ICD10: L25.9 Suspect poison gissel. Advised on potential spread. It actually took she might have even a few small lesions on the side of her face. If these are worsening she is to let us know. Recommend prednisone taper. Monitor for elevated blood sugars. Desonide as needed in the interim. Follow-up if symptoms are not improving over the course of the next 12 days or recur. - DESONIDE 0.05 % LOTION - PREDNISONE 10 MG TABLET Patient (guardian) expressed understanding of instructions and agrees with plan. M Collins Rodriguez PA-C Referring Provider: SELF [[id number]] Allergies As of Date: 06/03/2018 Noted Allergy Reaction CODEINE 10/13/2005 11 - Vomiting LISINOPRIL 05/24/2013 3 - Cough Comments: throat tickle SEPTRA (SULFAMETHOXAZOLE-TRIMETHO*10/13/2005 SULFA (SULFONAMIDE ANTIBIOTICS) 10/13/2005 VICODIN (HYDROCODONE-ACETAMINOPHE*09/28/2012 8 - GI Upset Date Reviewed: 06/03/2018 Reviewed by: Andreia Barr LPN - Fully Assessed Reason for Visit: Rash [1087] Cmt: on left side of neck that started on Thursday night Primary Visit Diagnosis:Contact dermatitis, unspecified contact dermatitis type, unspecified trigger [L25.9] Order(s):desonide (DESOWEN) 0.05 % lotionApply 1 application to affected area twice daily.Disp: 30 mLRfl: 1 predniSONE (DELTASONE) 10 mg tabletTake 4 tabs daily x 3 days, then 3 tabs x 3 days, 2 tabs x 3 days, then 1 tab x3 days with food.Disp: 30 tabletRfl: 0 Prescriptions as of 06/03/2018 Sig: TROSPIUM 20 MG TABLET Take 20 mg by mouth twice bony* METFORMIN ER 500 MG TABLET,EX* Take 1 tablet by mouth daily * HYDROCHLOROTHIAZIDE 12.5 MG C* Take 1 capsule by mouth once * LOSARTAN 50 MG-HYDROCHLOROTHI* Take 1 tablet by mouth once d* LEVOTHYROXINE 50 MCG TABLET Take 1 tablet by mouth daily * SIMVASTATIN 20 MG TABLET Take 1 tablet by mouth daily * POLYETHYLENE GLYCOL 3350 17 G* Take 17 g by mouth once daily. ALBUTEROL SULFATE 1.25 MG/3 M* Use 1 Ampule via nebulizer ev* * CHOLECALCIFEROL (VITAMIN D3) * Take 2 caps daily * THERAPEUTIC MULTIVITAMIN TABL* Take one(1) tablet daily. DESONIDE 0.05 % LOTION Apply 1 application to affect* PREDNISONE 10 MG TABLET Take 4 tabs daily x 3 days, t* ETODOLAC 400 MG TABLET Take 1 tablet by mouth twice * Patient not taking: Reported on 06/03/2018 Problem List As Of Date 06/03/2018 Noted Resolved TOBACCO USE DISORDER [F17.200] INVALID FOR* LUMBAR DISC DISPLACEMENT [M51.26] Mixed hyperlipidemia [E78.2] Essential hypertension [I10] Obstructive chronic bronchitis with exacerbatio*INVALID FOR*12/27/2016 Edema [R60.9] INVALID FOR*01/23/2010 VITAMIN D DEFICIENCY NOS [E55.9] INVALID FOR* Edema Leg [R60.0] INVALID FOR* Calcaneal Spur [M77.30] INVALID FOR* Bite from cat [W55.01XA] INVALID FOR*12/27/2016 More... Hepatomegaly [R16.0] INVALID FOR*12/27/2016 Fatty liver [K76.0] INVALID FOR* Plantar fasciitis [M72.2] INVALID FOR*12/27/2016 Chronic bronchitis [J42] INVALID FOR* Occult blood positive stool [R19.5] INVALID FOR*12/27/2016 Benign neoplasm of colon [D12.6] INVALID FOR* Medicare annual wellness visit, initial [Z00.00]INVALID FOR*12/27/2016 Abnormal ultrasound of breast [R92.8] INVALID FOR*12/27/2016 Personal history of colonic polyps [Z86.010] INVALID FOR*12/27/2016 Polyp of colon [K63.5] INVALID FOR*12/27/2016 Hyperglycemia [R73.9] INVALID FOR*12/27/2016 Metabolic syndrome [E88.81] INVALID FOR* Hypothyroid [E03.9] Diabetes (HCC) [E11.9] INVALID FOR* Obesity, Class III, BMI 40-49.9 (morbid obesity*INVALID FOR* Prescriptions ordered this encounter Disp Refills Start End DESONIDE 0.05 % LOTION 30 mL 1 06/03/2018 Route: TOPICAL Sig: Apply 1 application to affected area twice daily. PREDNISONE 10 MG TABLET 30 t* 0 06/03/2018 06/15/2018 Sig: Take 4 tabs daily x 3 days, then 3 tabs x 3 days, 2 tabs x 3 days, then 1 tab x3 days with food. Encounter Status:Closed by Isra RODRIGUEZ PA-C on 06/03/18 CNCO Observed: 05/24/2018 Status: COMPLETED Source: [place] 12:00 AM [facility] REPOSITORY Letter Text [facility] [address] [place] [address] 05/24/2018 THIS IS A PRESCRIPTION FOR HANDICAPPED PARKING PERMIT Re: Trish Min Hunt [id number] [place] [phone] The above named person requires a disability parking placard. DURATION: LIFETIME EXPIRATION: DATE + 5 YEARS Sincerely, Andreia Barr LPN CNCO Observed: 05/24/2018 Status: COMPLETED Source: [place] 12:00 AM [facility] REPOSITORY Letter Text [facility] [place] [id number] 05/24/2018 THIS IS A PRESCRIPTION FOR HANDICAPPED PARKING PERMIT Re: Trish Min Marilee [id number] [place] [phone] The above named person requires a disability parking placard. DURATION: LIFETIME EXPIRATION: DATE + 5 YEARS Sincerely, Andriy Rodriguez PA-C PROGRESS Observed: 05/12/2018 Status: COMPLETED Source: [place] 11:22 AM [facility] REPOSITORY HNO ID: [id number] Author: Ruba Trujillo Service: (none) Author Type: Nurse Practitioner Type: Progress Notes Filed: 05/12/2018 11:48 AM Note Text: 72 year old female with c/o URI sx over the last 2 weeks. Refers she had a cold 2 weeks ago. Refers that it ran about a 6 days course. Refers that she is having facial pain. Sore throat: No. Runny/stuffy nose: No. Postnasal drip: Yes. Throat clearing: Yes. Sinus pain/ pressure: Yes. Teeth pain: No. Headache Yes. Body aches No. Ear pain: No. Cough: occ. Production: occ. Fever: Yes. When she had the initial cold symptoms. Hx asthma No. Hx pneumonia Yes - years ago. Smoker: No. OTC meds tried: megan seltzer cold and cough. ACTIVE PROBLEM LIST Tobacco Use Disorder Displacement of Lumbar Intervertebral Disc Without Myelopathy Mixed Hyperlipidemia Essential Hypertension Unspecified Vitamin D Deficiency Edema Leg Calcaneal Spur Fatty Liver Chronic Bronchitis (Hcc) Benign Neoplasm of Colon Metabolic Syndrome Hypothyroid Diabetes (Hcc) Obesity, Class Iii, Bmi 40-49.9 (Morbid Obesity) (Hcc) Current Outpatient Prescriptions: losartan-hydrochlorothiazide (HYZAAR) 50-12.5 mg per tablet Take 1 tablet by mouth once daily. Disp: 90 tablet Rfl: 0 metFORMIN ER (GLUCOPHAGE XR) 500 mg 24 hr tablet Take 1 tablet by mouth daily with breakfast. Disp: 90 tablet Rfl: 0 levothyroxine (SYNTHROID) 50 mcg tablet Take 1 tablet by mouth daily before breakfast. Disp: 90 tablet Rfl: 0 Hydrochlorothiazide 12.5 mg capsule Take 1 capsule by mouth once daily. Disp: 90 capsule Rfl: 0 simvastatin (ZOCOR) 20 mg tablet Take 1 tablet by mouth daily at bedtime. Disp: 90 tablet Rfl: 3 polyethylene glycol 3350 (MIRALAX, GLYCOLAX) 17 gram/dose powder Take 17 g by mouth once daily. Disp: 1 Bottle Rfl: 5 etodolac (LODINE) 400 mg tablet Take 1 tablet by mouth twice daily. Disp: 180 tablet Rfl: 0 Albuterol Sulfate 1.25 mg/3 mL nebulizer solution Use 1 Ampule via nebulizer every 6 hours as needed. Disp: 25 Vial Rfl: 3 Cholecalciferol, Vitamin D3, 2,000 unit ORAL Cap Take 2 caps daily Disp: 1 Cap Rfl: 1 THERAPEUTIC MULTIVITAMIN TAB Take one(1) tablet daily. Disp: 1 Rfl: 0 No current facility-administered medications for this visit. OBJECTIVE: BP 140/68 Pulse 96 Resp 16 Wt 111.6 kg (246 lb) BMI 42.23 kg/m? General Appearance: Well appearing, alert, in no acute distress, well-hydrated, well nourished.. Skin: Skin color, texture, turgor normal, no suspicious rashes or lesions. Head: Normocephalic, no masses, lesions, tenderness or abnormalities. Eyes: Anicteric sclera. Pupils are equally round and reactive to light. Extraocular movements are intact. . Ears: External ears normal, canals clear, Normal TMs bilaterally. Nose/Sinuses: Nares normal, septum midline, mucosa normal, no drainage. + sinus tenderness - -L>R Oropharynx: Lips, mucosa, and tongue normal, teeth and gums normal, oropharynx normal. Neck: Supple, no adenopathy; thyroid symmetric, normal size, no bruits. Lungs: Lungs clear to auscultation. No wheezing, rhonchi, rales. Heart: RRR without murmur, gallop, or rubs. No ectopy. Neurologic: Gait normal. ASSESSMENT/PLAN: 1. Acute non-recurrent maxillary sinusitis - ICD9: 461.0, ICD10: J01.00 - Will begin treatment with Augmentin 875 mg PO BID for 14 days - The patient should also be given OTC decongestants prn for the first 5-7 days of treatment. - Supportive care with plenty of fluids, rest, and analgesia prn. - Nasal saline, decongestant, cool mist, rest , fluids, good nutrition - AMOXICILLIN 875 MG-POTASSIUM CLAVULANATE 125 MG TABLET Discussed treatment plan and patient voices understanding. Patient's questions answered appropriately. Medications and potential side effects were discussed and patient voices understanding. Return to the office as scheduled or as needed for worsening/no improvement. Ruba Trujillo APRN.MARLENA ALANIS Observed: 05/12/2018 Status: COMPLETED Source: [place] 11:00 AM [facility] REPOSITORY [facility] TRISH HUNT ([id number]) 1945 F Date Time Provider Department 05/12/18 11:00 AM RUBA TRUJILLO (MARLENA) RADHA During your visit today, we recorded the following information about you: Pulse Respiration Blood pressure Weight 96/minute 16/minute 140/68 111.6 kg Ruba Trujillo APRN.CNP 05/12/2018 11:48 AM Signed 72 year old female with c/o URI sx over the last 2 weeks. Refers she had a cold 2 weeks ago. Refers that it ran about a 6 days course. Refers that she is having facial pain. Sore throat: No. Runny/stuffy nose: No. Postnasal drip: Yes. Throat clearing: Yes. Sinus pain/ pressure: Yes. Teeth pain: No. Headache Yes. Body aches No. Ear pain: No. Cough: occ. Production: occ. Fever: Yes. When she had the initial cold symptoms. Hx asthma No. Hx pneumonia Yes - years ago. Smoker: No. OTC meds tried: megan seltzer cold and cough. ACTIVE PROBLEM LIST Tobacco Use Disorder Displacement of Lumbar Intervertebral Disc Without Myelopathy Mixed Hyperlipidemia Essential Hypertension Unspecified Vitamin D Deficiency Edema Leg Calcaneal Spur Fatty Liver Chronic Bronchitis (Hcc) Benign Neoplasm of Colon Metabolic Syndrome Hypothyroid Diabetes (Hcc) Obesity, Class Iii, Bmi 40-49.9 (Morbid Obesity) (Hcc) Current Outpatient Prescriptions: losartan-hydrochlorothiazide (HYZAAR) 50-12.5 mg per tablet Take 1 tablet by mouth once daily. Disp: 90 tablet Rfl: 0 metFORMIN ER (GLUCOPHAGE XR) 500 mg 24 hr tablet Take 1 tablet by mouth daily with breakfast. Disp: 90 tablet Rfl: 0 levothyroxine (SYNTHROID) 50 mcg tablet Take 1 tablet by mouth daily before breakfast. Disp: 90 tablet Rfl: 0 Hydrochlorothiazide 12.5 mg capsule Take 1 capsule by mouth once daily. Disp: 90 capsule Rfl: 0 simvastatin (ZOCOR) 20 mg tablet Take 1 tablet by mouth daily at bedtime. Disp: 90 tablet Rfl: 3 polyethylene glycol 3350 (MIRALAX, GLYCOLAX) 17 gram/dose powder Take 17 g by mouth once daily. Disp: 1 Bottle Rfl: 5 etodolac (LODINE) 400 mg tablet Take 1 tablet by mouth twice daily. Disp: 180 tablet Rfl: 0 Albuterol Sulfate 1.25 mg/3 mL nebulizer solution Use 1 Ampule via nebulizer every 6 hours as needed. Disp: 25 Vial Rfl: 3 Cholecalciferol, Vitamin D3, 2,000 unit ORAL Cap Take 2 caps daily Disp: 1 Cap Rfl: 1 THERAPEUTIC MULTIVITAMIN TAB Take one(1) tablet daily. Disp: 1 Rfl: 0 No current facility-administered medications for this visit. OBJECTIVE: BP 140/68 Pulse 96 Resp 16 Wt 111.6 kg (246 lb) BMI 42.23 kg/m? General Appearance: Well appearing, alert, in no acute distress, well-hydrated, well nourished.. Skin: Skin color, texture, turgor normal, no suspicious rashes or lesions. Head: Normocephalic, no masses, lesions, tenderness or abnormalities. Eyes: Anicteric sclera. Pupils are equally round and reactive to light. Extraocular movements are intact. . Ears: External ears normal, canals clear, Normal TMs bilaterally. Nose/Sinuses: Nares normal, septum midline, mucosa normal, no drainage. + sinus tenderness - -L>R Oropharynx: Lips, mucosa, and tongue normal, teeth and gums normal, oropharynx normal. Neck: Supple, no adenopathy; thyroid symmetric, normal size, no bruits. Lungs: Lungs clear to auscultation. No wheezing, rhonchi, rales. Heart: RRR without murmur, gallop, or rubs. No ectopy. Neurologic: Gait normal. ASSESSMENT/PLAN: 1. Acute non-recurrent maxillary sinusitis - ICD9: 461.0, ICD10: J01.00 - Will begin treatment with Augmentin 875 mg PO BID for 14 days - The patient should also be given OTC decongestants prn for the first 5-7 days of treatment. - Supportive care with plenty of fluids, rest, and analgesia prn. - Nasal saline, decongestant, cool mist, rest , fluids, good nutrition - AMOXICILLIN 875 MG-POTASSIUM CLAVULANATE 125 MG TABLET Discussed treatment plan and patient voices understanding. Patient's questions answered appropriately. Medications and potential side effects were discussed and patient voices understanding. Return to the office as scheduled or as needed for worsening/no improvement. Ruba Trujillo APRN.MARLENA Trujillo APRN.CNP 05/12/2018 11:36 AM Signed Get plenty of rest. Force fluids daily with water and juices. Nasal saline spray may help to keep nose open and moist: 2- 3 squirts each side every few hours. This also help to rinse out virus and bacteria causing infection. Cool mist humidifier in room during sleep. May use OTC Tylenol or Ibuprofen as direct for discomfort. For sore throat, warm salt water gargles, Chlorseptic spray, lozenges or other OTC sore throat remedies may help. Decongestants such as plain Sudafed or with expectorant such as Mucinex D may help with nasal stuffiness or facial and sinus pressure. Generics are fine. These are over the counter but require an adult signature. Oxymetolazine nasal decongestants (Afrin, Dristan, Femi's) may also help (in place of oral decongestants) but should not be used longer than 48-72 hours due to potential rebound congestion. OTC antihistamines such Benadryl (make cause drowsiness) or Zyrtec/ Clariten/ Stefani (non-drowsy) may help watery nasal drainage though they are generally not recommended because they dry mucus and make it sticky. The flow of mucus is important to help your body rid the virus. If cough keeps you awake at night, try OTC remedies first, such as Nyquil, Delsym, Femi's 44 or Mucinex DM. If this doesn't help you sleep, call the office for a prescription. Be careful if you are combining cough and cold medications that you aren't doubling the medicines. If you aren't sure: ask the pharmacist for help. Cough or sneeze into your sleeve to prevent spread of infected secretions. Wash your hands frequently. Try not to cough or sneeze on surfaces others might touch. If symptoms fail to improve in 5-7 days, fever > 100.5F, general worsening, or other concerning symptoms, return to [facility] or Harjinder Braswell MD. Referring Provider: SELF [200] Allergies As of Date: 05/12/2018 Noted Allergy Reaction CODEINE 10/13/2005 11 - Vomiting LISINOPRIL 05/24/2013 3 - Cough Comments: throat tickle SEPTRA (SULFAMETHOXAZOLE-TRIMETHO*10/13/2005 SULFA (SULFONAMIDE ANTIBIOTICS) 10/13/2005 VICODIN (HYDROCODONE-ACETAMINOPHE*09/28/2012 8 - GI Upset Date Reviewed: 05/12/2018 Reviewed by: Rachele Springer Ma - Fully Assessed Reason for Visit: Nasal Congestion [235] Cmt: x 2 weeks Facial pressure [Other] Post-nasal Drip [1168] Primary Visit Diagnosis:Acute non-recurrent maxillary sinusitis [J01.00] Order(s):amoxicillin-clavulanic acid (AUGMENTIN) 875-125 mg per tabletTake 1 tablet by mouth twice daily for 14 days.Disp: 28 tabletRfl: 0 Prescriptions as of 05/12/2018 Sig: LOSARTAN 50 MG-HYDROCHLOROTHI* Take 1 tablet by mouth once d* METFORMIN ER 500 MG TABLET,EX* Take 1 tablet by mouth daily * LEVOTHYROXINE 50 MCG TABLET Take 1 tablet by mouth daily * HYDROCHLOROTHIAZIDE 12.5 MG C* Take 1 capsule by mouth once * SIMVASTATIN 20 MG TABLET Take 1 tablet by mouth daily * POLYETHYLENE GLYCOL 3350 17 G* Take 17 g by mouth once daily. ETODOLAC 400 MG TABLET Take 1 tablet by mouth twice * ALBUTEROL SULFATE 1.25 MG/3 M* Use 1 Ampule via nebulizer ev* * CHOLECALCIFEROL (VITAMIN D3) * Take 2 caps daily * THERAPEUTIC MULTIVITAMIN TABL* Take one(1) tablet daily. AMOXICILLIN 875 MG-POTASSIUM * Take 1 tablet by mouth twice * Problem List As Of Date 05/12/2018 Noted Resolved TOBACCO USE DISORDER [F17.200] INVALID FOR* LUMBAR DISC DISPLACEMENT [M51.26] Mixed hyperlipidemia [E78.2] Essential hypertension [I10] Obstructive chronic bronchitis with exacerbatio*INVALID FOR*12/27/2016 Edema [R60.9] INVALID FOR*01/23/2010 VITAMIN D DEFICIENCY NOS [E55.9] INVALID FOR* Edema Leg [R60.0] INVALID FOR* Calcaneal Spur [M77.30] INVALID FOR* Bite from cat [W55.01XA] INVALID FOR*12/27/2016 More... Hepatomegaly [R16.0] INVALID FOR*12/27/2016 Fatty liver [K76.0] INVALID FOR* Plantar fasciitis [M72.2] INVALID FOR*12/27/2016 Chronic bronchitis [J42] INVALID FOR* Occult blood positive stool [R19.5] INVALID FOR*12/27/2016 Benign neoplasm of colon [D12.6] INVALID FOR* Medicare annual wellness visit, initial [Z00.00]INVALID FOR*12/27/2016 Abnormal ultrasound of breast [R92.8] INVALID FOR*12/27/2016 Personal history of colonic polyps [Z86.010] INVALID FOR*12/27/2016 Polyp of colon [K63.5] INVALID FOR*12/27/2016 Hyperglycemia [R73.9] INVALID FOR*12/27/2016 Metabolic syndrome [E88.81] INVALID FOR* Hypothyroid [E03.9] Diabetes (HCC) [E11.9] INVALID FOR* Obesity, Class III, BMI 40-49.9 (morbid obesity*INVALID FOR* Other instructions from your clinician: Get plenty of rest. Force fluids daily with water and juices. Nasal saline spray may help to keep nose open and moist: 2-3 squirts each side every few hours. This also help to rinse out virus and bacteria causing infection. Cool mist humidifier in room during sleep. May use OTC Tylenol or Ibuprofen as direct for discomfort. For sore throat, warm salt water gargles, Chlorseptic spray, lozenges or other OTC sore throat remedies may help. Decongestants such as plain Sudafed or with expectorant such as Mucinex D may help with nasal stuffiness or facial and sinus pressure. Generics are fine. These are over the counter but require an adult signature. Oxymetolazine nasal decongestants (Afrin, Dristan, Femi's) may also help (in place of oral decongestants) but should not be used longer than 48-72 hours due to potential rebound congestion. OTC antihistamines such Benadryl (make cause drowsiness) or Zyrtec/ Clariten/ Stefani (non-drowsy) may help watery nasal drainage though they are generally not recommended because they dry mucus and make it sticky. The flow of mucus is important to help your body rid the virus. If cough keeps you awake at night, try OTC remedies first, such as Nyquil, Delsym, Femi's 44 or Mucinex DM. If this doesn't help you sleep, call the office for a prescription. Be careful if you are combining cough and cold medications that you aren't doubling the medicines. If you aren't sure: ask the pharmacist for help. Cough or sneeze into your sleeve to prevent spread of infected secretions. Wash your hands frequently. Try not to cough or sneeze on surfaces others might touch. If symptoms fail to improve in 5-7 days, fever > 100.5F, general worsening, or other concerning symptoms, return to [facility] or Harjinder Braswell MD. Prescriptions ordered this encounter Disp Refills Start End AMOXICILLIN 875 MG-POTASSIUM CLAVULA* 28 t* 0 05/12/2018 05/26/2018 Route: ORAL Sig: Take 1 tablet by mouth twice daily for 14 days. Encounter Status:Closed by RUBA TRUJILLO CNP on 05/12/18 Observed: 05/12/2018 Status: F Source: [place] CULTURE, URINE 10:00 AM [facility] REPOSITORY Urine Culture ORGANISM 1: Mixed Gram Pos AND Gram Neg Org [place] Count 11,000-25,000 MIX CULTURE Mixed contaminants. Submit a new specimen if indicated. Performed By: #### [id number] #### [facility] [place], [address] [place] Observed: 03/24/2018 Status: COMPLETED Source: [place] 12:00 AM [facility] REPOSITORY Telephone ([facility]) TRISH HUNT ([id number]) 1945 F Date Time Provider Department 03/24/18 HARJINDER BRASWELL During your visit today, we recorded the following information about you: Jae Dodson LPN 03/24/2018 11:13 AM Signed Patient called and is having persisting Left knee pain and she has scheduled an apt with Dr. Davis for 03-29-18. They told her to bring a copy of xray (CD) along with the report done on 01-29-18. Spoke with Radiology and patient can picker and sorter load and unload CD and report tomorrow after 11 am at the [facility]. Patient aware. Jae Dodson LPN Allergies As of Date: 03/24/2018 Noted Allergy Reaction CODEINE 10/13/2005 11 - Vomiting LISINOPRIL 05/24/2013 3 - Cough Comments: throat tickle SEPTRA (SULFAMETHOXAZOLE-TRIMETHO*10/13/2005 SULFA (SULFONAMIDE ANTIBIOTICS) 10/13/2005 VICODIN (HYDROCODONE-ACETAMINOPHE*09/28/2012 8 - GI Upset Date Reviewed: 08/07/2017 Reviewed by: Arthur Gonzalez LPN - Fully Assessed Reason for Visit: Nurse Triage Call [[id number]] Prescriptions as of 03/24/2018 Sig: LOSARTAN 50 MG-HYDROCHLOROTHI* Take 1 tablet by mouth once d* METFORMIN ER 500 MG TABLET,EX* Take 1 tablet by mouth daily * LEVOTHYROXINE 50 MCG TABLET Take 1 tablet by mouth daily * HYDROCHLOROTHIAZIDE 12.5 MG C* Take 1 capsule by mouth once * SIMVASTATIN 20 MG TABLET Take 1 tablet by mouth daily * POLYETHYLENE GLYCOL 3350 17 G* Take 17 g by mouth once daily. ETODOLAC 400 MG TABLET Take 1 tablet by mouth twice * ALBUTEROL SULFATE 1.25 MG/3 M* Use 1 Ampule via nebulizer ev* * CHOLECALCIFEROL (VITAMIN D3) * Take 2 caps daily * THERAPEUTIC MULTIVITAMIN TABL* Take one(1) tablet daily. Problem List As Of Date 03/24/2018 Noted Resolved TOBACCO USE DISORDER [F17.200] INVALID FOR* LUMBAR DISC DISPLACEMENT [M51.26] Mixed hyperlipidemia [E78.2] Essential hypertension [I10] Obstructive chronic bronchitis with exacerbatio*INVALID FOR*12/27/2016 Edema [R60.9] INVALID FOR*01/23/2010 VITAMIN D DEFICIENCY NOS [E55.9] INVALID FOR* Edema Leg [R60.0] INVALID FOR* Calcaneal Spur [M77.30] INVALID FOR* Bite from cat [W55.01XA] INVALID FOR*12/27/2016 More... Hepatomegaly [R16.0] INVALID FOR*12/27/2016 Fatty liver [K76.0] INVALID FOR* Plantar fasciitis [M72.2] INVALID FOR*12/27/2016 Chronic bronchitis [J42] INVALID FOR* Occult blood positive stool [R19.5] INVALID FOR*12/27/2016 Benign neoplasm of colon [D12.6] INVALID FOR* Medicare annual wellness visit, initial [Z00.00]INVALID FOR*12/27/2016 Abnormal ultrasound of breast [R92.8] INVALID FOR*12/27/2016 Personal history of colonic polyps [Z86.010] INVALID FOR*12/27/2016 Polyp of colon [K63.5] INVALID FOR*12/27/2016 Hyperglycemia [R73.9] INVALID FOR*12/27/2016 Metabolic syndrome [E88.81] INVALID FOR* Hypothyroid [E03.9] Diabetes (HCC) [E11.9] INVALID FOR* Obesity, Class III, BMI 40-49.9 (morbid obesity*INVALID FOR* Encounter Status:Closed by JAE DODSON LPN on 03/24/18 XR KNEE 4V AP/PA Observed: 01/29/2018 Status: F Source: [facility]+LAT/ZOHRA RT 2:20 PM [facility] REPOSITORY * * *Final Report* * * DATE OF EXAM: Jan 29 2018 2:20PM WOX [id number] - XR KNEE 4V AP/PA BOTH+LAT/ZOHRA RT / PROCEDURE REASON: Pain in right knee * * * * Physician Interpretation * * * * EXAM TITLE: XR KNEE 4V AP/PA BOTH+LAT/ZOHRA RT EXAM DATE/TIME: 01/29/2018 2:20 PM COMPARISON: None. CLINICAL INDICATION/HISTORY: Pain in the right knee. TECHNIQUE: AP, lateral, sunrise and tunnel views of the right knee are presented. FINDINGS: Right knee: No fractures or subluxations are noted. Medial compartmental joint space narrowing is present. There is patellar enthesophyte formation. Minimal bony spur identified along the posterior aspect of the patella. Small joint effusion noted. The mineralization of the bones is normal. There is no significant soft tissue swelling however mild chondrocalcinosis is present. Left knee: Degenerative changes with mild chondrocalcinosis. IMPRESSION: Findings are suggestive of degenerative changes of the right knee, with small joint effusion. Mild chondrocalcinosis. Resume Writer: PSCB Transcribe Date/Time: Jan 29 2018 4:12P Dictated by : VERONICA INIGUEZ MD This examination was interpreted and the report reviewed and electronically signed by: VERONICA INIGUEZ MD on Jan 29 2018 4:15PM EST [id number] PROGRESS Observed: 01/29/2018 Status: COMPLETED Source: [place] 2:04 PM [facility] REPOSITORY HNO ID: [id number] Author: Leann Guzman (Rt) Fernando Evans Service: (none) Author Type: Load Haul Dump Operator Type: Progress Notes Filed: 01/29/2018 2:21 PM Note Text: Radiology Service Progress Note PATIENT NAME: Trish Hunt DATE OF SERVICE: January 29, 2018 TIME: 2:04 PM PATIENT IDENTITY VERIFICATION COMPLETED USING TWO (2) METHODS: Patient confirmed name verbally and Date of . PATIENT GENDER DATA: Female. status: : No status: NO. PATIENT RELEVANT IMPLANT DATA REVIEWED: Not Applicable RADIOLOGY DEPARTMENT: General X-ray: Exam(s) Completed: Lower Extremity X-Ray(s): Knee, AP / Lat / Tunne / Merchant Right and Wt. Bearing: PERIPHERAL IV DATA: Not applicable SIGNED BY: RT Angelika January 29, 2018 2:04 PM PROGRESS Observed: 01/29/2018 Status: COMPLETED Source: [place] 1:15 PM [facility] REPOSITORY HNO ID: [id number] Author: Harjinder Braswell Service: (none) Author Type: Physician Type: Progress Notes Filed: 01/29/2018 1:47 PM Note Text: Patient presents with: Knee Pain: bilateral HPI: Patient presents today for office visit for acute visit. Nursing Notes: Rachele Springer Ma 01/29/2018 12:40 PM Signed KNEE PAIN: Pt complaining of right knee pain for about 3 months. The pain started in the back of her knee then radiated to the front. She has seen Dr Davis for left knee pain and was given antiinflammatories and a cortisone injection. No trauma to the knee. No redness or warmth. Does not give out. No leg edema or calf Pain Pain to front of the knee HTN: Patient is compliant with meds Yes Denies side effects: Yes Chest pain: No Dyspnea: No. Edema: No. Palpitations: No. Syncope: No. Headache: No. Dizziness: No. HYPOTHYROID: Patient is compliant with medications: Yes Patient has changes in energy: No Patient has changes in hair or skin: No Patient has temperature intolerance: No Patient has weight changes: No DM: Reports overall feeling well. Medication side effects: No. Home sugar checks: no Hypoglycemic spells: No. Watching diet: Trying to lose weight. . Just got labs this am. MEDICATIONS: Current Outpatient Prescriptions: losartan-hydrochlorothiazide (HYZAAR) 50-12.5 mg per tablet Take 1 tablet by mouth once daily. metFORMIN ER (GLUCOPHAGE XR) 500 mg 24 hr tablet Take 1 tablet by mouth daily with breakfast. levothyroxine (SYNTHROID) 50 mcg tablet Take 1 tablet by mouth daily before breakfast. Hydrochlorothiazide 12.5 mg capsule Take 1 capsule by mouth once daily. simvastatin (ZOCOR) 20 mg tablet Take 1 tablet by mouth daily at bedtime. polyethylene glycol 3350 (MIRALAX, GLYCOLAX) 17 gram/dose powder Take 17 g by mouth once daily. etodolac (LODINE) 400 mg tablet Take 1 tablet by mouth twice daily. Albuterol Sulfate 1.25 mg/3 mL nebulizer solution Use 1 Ampule via nebulizer every 6 hours as needed. Cholecalciferol, Vitamin D3, 2,000 unit ORAL Cap Take 2 caps daily THERAPEUTIC MULTIVITAMIN TAB Take one(1) tablet daily. No current facility-administered medications for this visit. ALLERGIES: ALLERGIES Allergen Reactions - Codeine Vomiting - Lisinopril Cough throat tickle - Septra [Sulfamethox* - Sulfa (Sulfonamide * - Vicodin [Hydrocodon* GI Upset PAST MEDICAL HISTORY Diagnosis Date - Benign neoplasm of colon - Displacement of lumbar intervertebral disc without myelopathy - Hypothyroid - Metabolic syndrome - Other and unspecified hyperlipidemia - Unspecified essential hypertension PAST SURGICAL HISTORY Procedure Laterality Date - CHOLECYSTECTOMY - COLONOS W/REM POLYP SNARE 03/18/16 multiple polyps - 3 year follow up - COLONOSCOP W/ OR W/O [facility] SPEC 12/14/2012 Colonoscopy - PAST SURGICAL HISTORY OF lumbosacral nerve root decompression - SIGMOIDOSCOPY FLEX DIAG 07/05/13 Sigmoidoscopy, flexible/colonoscopy needed in 1 year FAMILY HISTORY Problem Relation Age of Onset - Cancer Sister thyroid - Cancer Mother lung non smoker - Coronary Artery Disease Father Social History Marital status: Spouse name: Robbie Years of education: Number of children: 3 Occupational History 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 REVIEW OF SYSTEMS All other reviewed and negative other than HPI. HEALTH MAINTENANCE: Reviewed health maintenance issues today and recommended the following in detail. URINE ALBUMIN CREATININE RATIO due on 1959 DIABETIC FOOT EXAM due on 1959 LDL due on 09/02/2013 HBA1C due on 01/10/2018 VITALS: BP 132/76 Pulse 93 SpO2 95% Last 4 Encounter Wt Readings: Date: Wt: 08/07/2017 110.7 kg (244 lb) 07/24/2017 114.3 kg (252 lb) 06/29/2017 113.2 kg (249 lb 9.6 oz) 02/26/2017 111.6 kg (246 lb) PHYSICAL EXAMINATION: General appearance: Well appearing, alert, in no acute distress, well-hydrated, well nourished. Skin: Skin color, texture, turgor normal, no suspicious rashes or lesions Head: Normocephalic, no masses, lesions, tenderness or abnormalities Lungs: Lungs clear to auscultation. No wheezing, rhonchi, rales Heart: RRR without murmur, gallop, or rubs. No ectopy Abdomen: Normal abdominal exam, Abdomen soft, non-tender. Bowel sounds normal. No masses, organomegaly Extremities: No deformities, edema, skin discoloration, clubbing or cyanosis. Good capillary refill. Feet:Shoes and socks removed, No deformities, ulcers, calluses, normal distal pulses and not sensitive to monofilament bilaterally KNEE:Location:right Redness: No. Warmth: No. Crepitus: yes Effusion: No. Joint line tenderness: No. Lateral tenderness: No. Medial tenderness: No. Drawer sign negative: No. Medial or lateral laxity: No. Ori's sign: No. ASSESSMENT/PLAN: 1. Acute pain of right knee - ICD9: 719.46, ICD10: M25.561 (primary diagnosis) - start with xray. Consider ortho 2. Type 2 diabetes mellitus without complication, without long-term current use of insulin (HCC) - ICD9: 250.00, ICD10: E11.9 Controlled. - wait on numbers. 3. Hypothyroidism, unspecified type - ICD9: 244.9, ICD10: E03.9 - Instructed patient on importance of taking on an empty stomach either first thing in the morning or at bedtime. Await results. Discussed weight loss 4. Simple chronic bronchitis (HCC) - ICD9: 491.0, ICD10: J41.0 - call if any issues. 5. Mixed hyperlipidemia - ICD9: 272.2, ICD10: E78.2 - to be determined upon return of lab results - Encouraged following a low fat, low cholesterol diet. 6. Essential hypertension - ICD9: 401.9, ICD10: I10 - good control - Continue current medication(s) - Recommended regular aerobic exercise. - Recommend home blood pressure monitoring, to bring results in on next visit - Goal of BP <130/80 7. Obesity, Class III, BMI 40-49.9 (morbid obesity) (HCC) - ICD9: 278.01, ICD10: E66.01 - as above Harjinder Braswell MD CNOV Observed: 01/29/2018 Status: COMPLETED Source: [place] 12:20 PM [facility] REPOSITORY Office Visit ([facility]AMPWS) TRISH HUNT ([id number]) 1945 F Date Time Provider Department 01/29/18 12:20 PM HARJINDER BRASWELLWS During your visit today, we recorded the following information about you: Pulse Blood pressure 93/minute 132/76 Rachele Springer Ma 01/29/2018 12:40 PM Signed KNEE PAIN: Pt complaining of right knee pain for about 3 months. The pain started in the back of her knee then radiated to the front. She has seen Dr Davis for left knee pain and was given antiinflammatories and a cortisone injection. Harjinder Braswell MD 01/29/2018 1:47 PM Signed Patient presents with: Knee Pain: bilateral HPI: Patient presents today for office visit for acute visit. Nursing Notes: Rachele Augustinjob Merida 01/29/2018 12:40 PM Signed KNEE PAIN: Pt complaining of right knee pain for about 3 months. The pain started in the back of her knee then radiated to the front. She has seen Dr Davis for left knee pain and was given antiinflammatories and a cortisone injection. No trauma to the knee. No redness or warmth. Does not give out. No leg edema or calf Pain Pain to front of the knee HTN: Patient is compliant with meds Yes Denies side effects: Yes Chest pain: No Dyspnea: No. Edema: No. Palpitations: No. Syncope: No. Headache: No. Dizziness: No. HYPOTHYROID: Patient is compliant with medications: Yes Patient has changes in energy: No Patient has changes in hair or skin: No Patient has temperature intolerance: No Patient has weight changes: No DM: Reports overall feeling well. Medication side effects: No. Home sugar checks: no Hypoglycemic spells: No. Watching diet: Trying to lose weight. . Just got labs this am. MEDICATIONS: Current Outpatient Prescriptions: losartan-hydrochlorothiazide (HYZAAR) 50-12.5 mg per tablet Take 1 tablet by mouth once daily. metFORMIN ER (GLUCOPHAGE XR) 500 mg 24 hr tablet Take 1 tablet by mouth daily with breakfast. levothyroxine (SYNTHROID) 50 mcg tablet Take 1 tablet by mouth daily before breakfast. Hydrochlorothiazide 12.5 mg capsule Take 1 capsule by mouth once daily. simvastatin (ZOCOR) 20 mg tablet Take 1 tablet by mouth daily at bedtime. polyethylene glycol 3350 (MIRALAX, GLYCOLAX) 17 gram/dose powder Take 17 g by mouth once daily. etodolac (LODINE) 400 mg tablet Take 1 tablet by mouth twice daily. Albuterol Sulfate 1.25 mg/3 mL nebulizer solution Use 1 Ampule via nebulizer every 6 hours as needed. Cholecalciferol, Vitamin D3, 2,000 unit ORAL Cap Take 2 caps daily THERAPEUTIC MULTIVITAMIN TAB Take one(1) tablet daily. No current facility-administered medications for this visit. ALLERGIES: ALLERGIES Allergen Reactions - Codeine Vomiting - Lisinopril Cough throat tickle - Septra [Sulfamethox* - Sulfa (Sulfonamide * - Vicodin [Hydrocodon* GI Upset PAST MEDICAL HISTORY Diagnosis Date - Benign neoplasm of colon - Displacement of lumbar intervertebral disc without myelopathy - Hypothyroid - Metabolic syndrome - Other and unspecified hyperlipidemia - Unspecified essential hypertension PAST SURGICAL HISTORY Procedure Laterality Date - CHOLECYSTECTOMY - COLONOS W/REM POLYP SNARE 03/18/16 multiple polyps - 3 year follow up - COLONOSCOP W/ OR W/O [facility] SPEC 12/14/2012 Colonoscopy - PAST SURGICAL HISTORY OF lumbosacral nerve root decompression - SIGMOIDOSCOPY FLEX DIAG 07/05/13 Sigmoidoscopy, flexible/colonoscopy needed in 1 year FAMILY HISTORY Problem Relation Age of Onset - Cancer Sister thyroid - Cancer Mother lung non smoker - Coronary Artery Disease Father Social History Marital status: Spouse name: Robbie Years of education: Number of children: 3 Occupational History 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 REVIEW OF SYSTEMS All other reviewed and negative other than HPI. HEALTH MAINTENANCE: Reviewed health maintenance issues today and recommended the following in detail. URINE ALBUMIN CREATININE RATIO due on 1959 DIABETIC FOOT EXAM due on 1959 LDL due on 09/02/2013 HBA1C due on 01/10/2018 VITALS: BP 132/76 Pulse 93 SpO2 95% Last 4 Encounter Wt Readings: Date: Wt: 08/07/2017 110.7 kg (244 lb) 07/24/2017 114.3 kg (252 lb) 06/29/2017 113.2 kg (249 lb 9.6 oz) 02/26/2017 111.6 kg (246 lb) PHYSICAL EXAMINATION: General appearance: Well appearing, alert, in no acute distress, well-hydrated, well nourished. Skin: Skin color, texture, turgor normal, no suspicious rashes or lesions Head: Normocephalic, no masses, lesions, tenderness or abnormalities Lungs: Lungs clear to auscultation. No wheezing, rhonchi, rales Heart: RRR without murmur, gallop, or rubs. No ectopy Abdomen: Normal abdominal exam, Abdomen soft, non-tender. Bowel sounds normal. No masses, organomegaly Extremities: No deformities, edema, skin discoloration, clubbing or cyanosis. Good capillary refill. Feet:Shoes and socks removed, No deformities, ulcers, calluses, normal distal pulses and not sensitive to monofilament bilaterally KNEE:Location:right Redness: No. Warmth: No. Crepitus: yes Effusion: No. Joint line tenderness: No. Lateral tenderness: No. Medial tenderness: No. Drawer sign negative: No. Medial or lateral laxity: No. Ori's sign: No. ASSESSMENT/PLAN: 1. Acute pain of right knee - ICD9: 719.46, ICD10: M25.561 (primary diagnosis) - start with xray. Consider ortho 2. Type 2 diabetes mellitus without complication, without long-term current use of insulin (HCC) - ICD9: 250.00, ICD10: E11.9 Controlled. - wait on numbers. 3. Hypothyroidism, unspecified type - ICD9: 244.9, ICD10: E03.9 - Instructed patient on importance of taking on an empty stomach either first thing in the morning or at bedtime. Await results. Discussed weight loss 4. Simple chronic bronchitis (HCC) - ICD9: 491.0, ICD10: J41.0 - call if any issues. 5. Mixed hyperlipidemia - ICD9: 272.2, ICD10: E78.2 - to be determined upon return of lab results - Encouraged following a low fat, low cholesterol diet. 6. Essential hypertension - ICD9: 401.9, ICD10: I10 - good control - Continue current medication(s) - Recommended regular aerobic exercise. - Recommend home blood pressure monitoring, to bring results in on next visit - Goal of BP ANDlt;130/80 7. Obesity, Class III, BMI 40-49.9 (morbid obesity) (HCC) - ICD9: 278.01, ICD10: E66.01 - as above Harjinder Braswell MD Referring Provider: SELF [[id number]] Allergies As of Date: 01/29/2018 Noted Allergy Reaction CODEINE 10/13/2005 11 - Vomiting LISINOPRIL 05/24/2013 3 - Cough Comments: throat tickle SEPTRA (SULFAMETHOXAZOLE-TRIMETHO*10/13/2005 SULFA (SULFONAMIDE ANTIBIOTICS) 10/13/2005 VICODIN (HYDROCODONE-ACETAMINOPHE*09/28/2012 8 - GI Upset Date Reviewed: 08/07/2017 Reviewed by: Arthur Gonzalez LPN - Fully Assessed Reason for Visit: Knee Pain [132] Cmt: bilateral Primary Visit Diagnosis:Acute pain of right knee [M25.561] Other Visit Diagnoses:Type 2 diabetes mellitus without complication, without long-term current use of insulin (HCC) [E11.9] Hypothyroidism, unspecified type [E03.9] Simple chronic bronchitis (HCC) [J41.0] Mixed hyperlipidemia [E78.2] Essential hypertension [I10] Obesity, Class III, BMI 40-49.9 (morbid obesity) ([facility] [E66.01] Order(s):XR KNEE GENERAL 4V AP BOTH/PA BOTH/LAT/MERC RT [[id number]] Order #: [id number] FUTURE Prescriptions as of 01/29/2018 Sig: LOSARTAN 50 MG-HYDROCHLOROTHI* Take 1 tablet by mouth once d* METFORMIN ER 500 MG TABLET,EX* Take 1 tablet by mouth daily * LEVOTHYROXINE 50 MCG TABLET Take 1 tablet by mouth daily * HYDROCHLOROTHIAZIDE 12.5 MG C* Take 1 capsule by mouth once * SIMVASTATIN 20 MG TABLET Take 1 tablet by mouth daily * POLYETHYLENE GLYCOL 3350 17 G* Take 17 g by mouth once daily. ETODOLAC 400 MG TABLET Take 1 tablet by mouth twice * ALBUTEROL SULFATE 1.25 MG/3 M* Use 1 Ampule via nebulizer ev* * CHOLECALCIFEROL (VITAMIN D3) * Take 2 caps daily * THERAPEUTIC MULTIVITAMIN TABL* Take one(1) tablet daily. Problem List As Of Date 01/29/2018 Noted Resolved TOBACCO USE DISORDER [F17.200] INVALID FOR* LUMBAR DISC DISPLACEMENT [M51.26] Mixed hyperlipidemia [E78.2] Essential hypertension [I10] Obstructive chronic bronchitis with exacerbatio*INVALID FOR*12/27/2016 Edema [R60.9] INVALID FOR*01/23/2010 VITAMIN D DEFICIENCY NOS [E55.9] INVALID FOR* Edema Leg [R60.0] INVALID FOR* Calcaneal Spur [M77.30] INVALID FOR* Bite from cat [W55.01XA] INVALID FOR*12/27/2016 More... Hepatomegaly [R16.0] INVALID FOR*12/27/2016 Fatty liver [K76.0] INVALID FOR* Plantar fasciitis [M72.2] INVALID FOR*12/27/2016 Chronic bronchitis [J42] INVALID FOR* Occult blood positive stool [R19.5] INVALID FOR*12/27/2016 Benign neoplasm of colon [D12.6] INVALID FOR* Medicare annual wellness visit, initial [Z00.00]INVALID FOR*12/27/2016 Abnormal ultrasound of breast [R92.8] INVALID FOR*12/27/2016 Personal history of colonic polyps [Z86.010] INVALID FOR*12/27/2016 Polyp of colon [K63.5] INVALID FOR*12/27/2016 Hyperglycemia [R73.9] INVALID FOR*12/27/2016 Metabolic syndrome [E88.81] INVALID FOR* Hypothyroid [E03.9] Diabetes (HCC) [E11.9] INVALID FOR* Visit Notes: >> Rachele Springer Ma ThuJan 29, 2018 12:22 PM Status: Signed KNEE PAIN: Pt complaining of right knee pain for about 3 months. The pain started in the back of her knee then radiated to the front. She has seen Dr Davis for left knee pain and was given antiinflammatories and a cortisone injection. Medications Discontinued During This Encounter COMPOUNDED PRESCRIPTION 1 Ea* 0 12/27/2016 01/29/2018 Class: Print RX Sig: TSH, CBC, hba1c, vitamin d deficiency DX: HYPOTHYROID, DM, VITAMIN D DEFICIENCY, HYPERGLYCEMIA Disc: Reason for discontinue is not on file. oxybutynin (DITROPAN) 5 mg tablet 90 t* 5 08/07/2017 01/29/2018 Route: ORAL Sig: Take 1 tablet by mouth three times daily. Disc: Discontinued by another Health Care Provider Encounter Status:Closed by HARJINDER BRASWELL MD on 01/29/18 HEMOGLOBIN A1C Collected: 01/29/2018 Status: F Source: [place] 11:18 AM [facility] REPOSITORY TYPE CODE TESTS RESULT OUT OF RANGE REFERENCE UNITS LAB L501.9985 4.2-6.3 % Normal HGB A1C 5.8 Performed By: #### L501.9985 #### [facility] [address], [address] COMPREHENSIVE METABOLIC Collected: 01/29/2018 Status: F Source: [facility] 11:18 AM [facility] REPOSITORY TYPE CODE TESTS RESULT OUT OF RANGE REFERENCE UNITS LAB L501.0100 74-106 mg/dL Normal GLU 100 Result Comment: Fasting Glucose result from 100 to 125 mg/dL suggests IMPAIRED HOMEOSTASIS per A.D.A. criteria. Please note revised GLUCOSE reference range effective 2017. LAB L501.1000 7-18 mg/dL Normal BUN 18 LAB L501.1100 0.55-1.02 mg/dL High CREAT,SERUM 1.11 Result Comment: The validity of the calculated GFR AND GFRAA in patients over 70 years has not been determined. Clinical correlation is essential. LAB L501.1110 >60 mL/min Low EST GFR 51 Result Comment: Non- GFR Calc LAB L501.1115 >60 mL/min Normal EST GFR - AA 62 Result Comment: GFR Calc LAB L501.1300 10-20 RATIO Normal BUN/CRE 16.2 LAB L501.1500 6.4-8.2 g/dL T Normal PROT 7.5 LAB L501.1800 3.2-5.0 g/dL Normal ALB 3.4 LAB L501.1950 2.2-4.2 g/dL Normal GLOB 4.1 LAB L501.2000 0.9-2.4 RATIO Low A/G 0.8 LAB L501.2200 8.5-10.1 mg/dL CA Normal 8.8 LAB L501.4100 15-37 U/L Low AST 14 LAB L501.4305 45-117 U/L Normal ALK P 45 LAB L501.4405 13-56 U/L Normal ALT 19 Result Comment: Please note revised ALT reference range effective 2017. LAB L501.4600 0.20-1.00 mg/dL Normal T BILI 0.40 LAB L501.5300 136-145 mmol/L Normal NA 138 LAB L501.5600 3.5-5.1 mmol/L Normal K 4.1 LAB L501.5900 98-107 mmol/L Normal CL 100 LAB L501.6100 21.0-32.0 mmol/L Normal CO2 31.0 LAB L501.6200 5-15 Normal GAP 7 Performed By: #### L500.4050, L500.4100, L501.9520 #### [facility] [address] [place], [place], [address] LIPID PROFILE Collected: 01/29/2018 Status: F Source: [place] 11:18 AM [facility] REPOSITORY TYPE CODE TESTS RESULT OUT OF RANGE REFERENCE UNITS LAB L501.4900 200 mg/dL Normal CHOL 188 Result Comment: <200 mg/dL Desirable 200-240 mg/dL Borderline >240 mg/dL High Risk LAB L501.5000 mg/dL Normal TRIG 173 Result Comment: The drugs N-Acetylcysteine and Metamizole may falsely depress this assay. Serum Triglycerides Reference Interval Normal <150 mg/dL Borderline high 150 - 199 mg/dL High 200 - 499 mg/dL Very High > or = 500 mg/dL LAB L501.6400 mg/dL Normal HDL 61 Result Comment: The drugs N-Acetylcysteine and Metamizole may falsely depress this assay. Reference Range HDL <40 mg/dL Low HDL Cholesterol HDL >or= 60 mg/dL High HDL Cholesterol LAB L501.6500 0-130 mg/dL Normal LDL 92 LAB L501.6600 5-40 mg/dL Normal VLDL 35 Performed By: #### L500.4050, L500.4100, L501.9520 #### [facility] [address] [place], [place], [address] THYROID STIM HORMONE Collected: 01/29/2018 Status: F Source: [place] (TSH) 11:18 AM [facility] REPOSITORY TYPE CODE TESTS RESULT OUT OF RANGE REFERENCE UNITS LAB L501.9520 0.358-3.74 uIU/mL Normal TSH 2.58 Performed By: #### L500.4050, L500.4100, L501.9520 #### [facility] [address] [facility] [place], [address] MICROALB:CREAT Collected: 01/29/2018 Status: F Source: SEKOU RATIO,RANDOM UR 11:18 AM [facility] REPOSITORY TYPE CODE TESTS RESULT OUT OF RANGE REFERENCE UNITS LAB L501.1200 NO RANGE EST. mg/dL Normal UR CREAT 170.00 LAB L502.0500 NO RANGE EST. mg/L Normal 74.5 MICROALBUMIN ,UR LAB L502.0600 <30 mg/g CRE mg/g CRE High 43.8 MALB:CREAT Performed By: #### L502.0250 #### [facility] [address] [place], [address] ALLERGIES ALLERGIES DATE TYPE / CODE NAME / CODE REACTION SEVERITY SOURCE 10/28/2018 Drug Sulfa Unknown Unknown [place] Allergy/416 (Sulfonamide Community 031930([facility] Antibiotics)/[address] ED [place]) 871177(RXNORM) Repository 10/28/2018 Drug lisinopril/K48777 cough Unknown [place] Allergy/416 0658(RXNORM) [facility] 346061([facility] ED CT) Repository 10/28/2018 Drug codeine/[id number] Nausea/Vom/Diar Unknown [place] Allergy/416 0(RXNORM) ferdinand [facility] 489930([facility] ED CT) Repository 10/28/2018 Drug hydrocodone/F0060 Nausea/Vom/Diar Unknown [place] Allergy/416 17787(RXNORM) ferdinand [facility] 775051([facility] ED CT) Repository 10/28/2018 Drug acetaminophen/F00 Nausea/Vom/Diar Unknown [place] Allergy/745 6969667(RXNORM) ferdinand [facility] 452639([facility] ED CT) Repository 10/28/2018 Drug sulfamethoxazole/ Unknown Unknown [place] Allergy/416 [id number](RXNORM Community 359242([facility] ED CT) Repository 10/28/2018 Drug trimethoprim/F006 Unknown Unknown [place] Allergy/416 453863(RXNORM) [facility] 333293([facility] ED CT) Repository 05/24/2013 DRUG LISINOPRIL COUGH [facility]/419 [facility] [place] 302631([facility] ED CT) 09/28/2012 DRUG/435571 HYDROCODONE-ACETA GI UPSET [facility] 003(SNOMED MINOPHEN [facility] [place]) Repository 10/13/2005 DRUG CODEINE Vomiting [facility] INGREDI/419 [address] [place] 507891(SNOM Repository ED CT) 10/13/2005 DRUG/368712 SULFAMETHOXAZOLE- [facility] 003(SNOMED TRIMETHOPRIM [facility]) Repository 10/13/2005 Drug SULFA [facility] Class/31282 (SULFONAMIDE [facility] [place] 1003(SNOMED ANTIBIOTICS) Repository CT) ENCOUNTERS ENCOUNTERS ADMIT/DISCHARGE ACCOUNT ADMITTING ENCOUNTER LOCATION SOURCE NUMBER CLASS 11/12/2018/12/04/19 [id number] MD MCKENZIE Inpatient UHCBuilding:[address] Encounter E49Vtuq: [facility] [id number]: Repository [id number] 11/12/2018/11/12/20 [id number] Agyepong, Inpatient Iona Iona 18 [facility] ing:PCURoom: Repository MUY154Umh: 1 11/12/2018 [id number] Agyepong, Ambulatory BMSBuilding:Beck Gibson MS.[facility] Repository 11/12/2018 [id number] Agyepong, Ambulatory BMSBuilding:Beck Gibson MS.CF[facility] Repository 11/12/2018 [id number] Agyepong, Ambulatory BMSBuilding:Beck Gibson MS.[facility] Repository 11/12/2018 [id number] Agyepong, Ambulatory BMSBuilding:Beck Gibson MS.[facility] Repository 11/10/2018 [id number] Ambulatory [facility] ing:LAB Repository 11/10/2018/11/10/20 [id number] Ambulatory [address] Repository 11/10/2018/11/10/20 [id number] Ambulatory [address] Repository 11/10/2018/11/10/20 [id number] Ambulatory [address] Repository 11/10/2018/11/11/20 [id number] Ambulatory [address] Repository 10/29/2018/10/29/20 [id number] Ambulatory [address] ing:SDCRoom: Repository AC03 09/02/2018 [id number] [facility] ing:LAB.FUTUR Repository E 08/18/2018/08/18/20 [id number] Ambulatory [address] ing:SDCRoom: Repository AC09 08/02/2018/08/03/20 [id number] Ambulatory [address] Repository 07/20/2018 [id number] [facility] ing:LAB.FUTUR Repository E 06/03/2018/06/04/20 [id number] Ambulatory [address] Repository 05/12/2018 [id number] [facility] ing:LABSPEC Repository 05/12/2018/05/13/20 [id number] Ambulatory [address] Repository 01/29/2018/01/30/20 [id number] Ambulatory [address] Repository 01/29/2018/02/02/20 [id number] Ambulatory [address] Repository 01/29/2018 [id number] [facility] ing:LAB.FUTUR Repository E PAYERS PAYERS ENCOUNTER GUARANTOR PAYER SUBSCRIBER SOURCE 11/12/2018 Trish Barnett: Primary Trish Barnett: Pomerene CR Insurance:[facility] [id number] Hospitals [address], [place] [address]Dse: Number: [address] [place] [address] [id number] [place] [address]Wnw: () Date:Plan Name:HealthP [address] [place] [id number]: 11/12/2018 ROBBIE MULLINS Primary TRISH BARNETT: Sekou ISBELL Insurance:[facility] [id number] Community [address], [place] [address]Nfr: Number: Repository [id number] () Date:7927-66-83[address] [place] [address]SF: 11/12/2018 Secondary NOT GIVENUNK Iona Insurance:SELF PAY [facility] Number: Effective Repository Date:2018-11-11 11/12/2018 ROBBIE MULLINS Primary TRISH J HALLDOB: Sekou CR [facility] [id number] Community [address], [place] [address]Uko: Number: Repository [id number] (HP) Date:6323-80-98[address], [place] [address]OT: 11/12/2018 Secondary NOT GIVENUNK [place] Insurance:SELF PAY [facility] Number: Effective Repository Date:2018-11-11 11/12/2018 ROBBIE MULLINS Primary TRISH J HALLDOB: [place] CR Insurance:[facility] [id number] Community [address], [place] [address]Oye: Number: Repository [id number] (HP) Date:6034-66-01[address] [facility], [place] [address]AA: 11/12/2018 Secondary NOT GIVENUNK [place] Insurance:SELF PAY [facility] Number: Effective Repository Date:2018-11-12 11/12/2018 ROBBIE MULLINS Primary TRISH J HALLDOB: I[place] CR Insurance:[facility] [id number] Community [address], [place] [address]Npc: Number: Repository [id number] (HP) Date:8770-95-53[address], [place] [address]JU: 11/12/2018 Secondary NOT GIVENUNK Sekou Insurance:SELF PAY [facility] Number: Effective Repository Date:2018-11-12 11/12/2018 ROBBIE MULLINS Primary TRISH J HALLDOB: Iona CR Insurance:[facility] [id number] Community [address], [place] [address]Grs: Number: Repository [id number] (HP) Date:2968-94-26[address] [facility] [place] [address]KT: 11/12/2018 Secondary NOT GIVENUNK [place] Insurance:SELF PAY [facility] Number: Effective Repository Date:2018-11-12 11/10/2018 ROBBIE MULLINS Primary TRISH J HALLDOB: Sekou CR [facility] [id number] Community [address], [place] [address]Wjf: Number: Repository [id number] (HP) Date:0196-73-43[address] [facility], [place] [address]WZ: 11/10/2018 Secondary NOT GIVENUNK Sekou Insurance:SELF PAY [facility] Number: Effective Repository Date:2018-11-10 10/29/2018 ROBBIE MULLINS Primary TRISH J HALLDOB: Sekou CR [facility] [id number] Community [address], [place] [address]Ngf: Number: Repository [id number] (HP) Date:8803-67-46[address] [place] [address] [address]SE: 10/29/2018 Secondary NOT GIVENUNK [place] Insurance:SELF PAY [facility] Number: Effective Repository Date:2018-10-25 09/02/2018 ROBBIE MULLINS Primary TRISH J HALLDOB: Sekou CR [facility] [id number] Community [address], [place] [address]Wtr: Number: Repository [id number] (HP) Date:8116-41-69[address] [facility] [address]JR: 09/02/2018 Secondary NOT GIVENUNK Se[place] Insurance:SELF PAY [facility] Number: Effective Repository Date:2018-08-04 08/18/2018 ROBBIE MULLINS Primary TRISH J HALLDOB: Sek[place] CR [facility] [id number] Community [address], [place] [address]Qbj: Number: Repository [id number] (HP) Date:6731-14-04FU [address] [place] [address]EE: 08/18/2018 Secondary NOT GIVENUNK Sekou Insurance:SELF PAY [facility] Number: Effective Repository Date:2018-07-20 07/20/2018 Robbie Mullins Primary TRISH J HALLDOB: Sekou CR Insurance:[facility] [id number] Community [address], [place] [address]Hun: Number: Repository [id number] (HP) Date:3787-77-03JF [address], [place] [address]JJ: 07/20/2018 Secondary NOT GIVENUNK Sekou Insurance:SELF PAY [facility] Number: Effective Repository Date:2018-07-20 05/12/2018 Robbie Mullins Primary TRISH J HALLDOB: Sekou CR Insurance:[facility] [id number] Community [address], [place] [address]Fja: Number: Repository [id number] (HP) Date:4870-19-56[address], [place] [address]XJ: 05/12/2018 Secondary NOT GIVENUNK Sekou Insurance:SELF PAY [facility] Number: Effective Repository Date:2018-05-12 01/29/2018 Robbie Mullins Primary TRISH J HALLDOB: Sekou CR Insurance:[facility] CARE [id number] Community [address], [place] [address]Gqj: Number: Repository [id number] (HP) Date:5797-27-30[address], [place] [address]KN: 01/29/2018 Secondary NOT GIVENUNK Sekou Insurance:SELF PAY [facility]: Effective Repository Date:2018-01-19
== END 2018-10-29 14:32 | disposition home or self-care (01) ==
LOC: SDC 10:23 → AC 10:29
PROVIDERS: Family Provider Family Medicine; PCP Family Medicine; Referring Provider Urology; Visit Provider Urology
PROC: (CPT 64585; principal; 2018-10-29 12:35)
DX: T83.84XA Pain due to genitourinary prosthetic devices, implants and grafts, initial encounter (principal); N32.81 Overactive bladder; E78.00 Pure hypercholesterolemia, unspecified; E06.9 Thyroiditis, unspecified; Z87.891 Personal history of nicotine dependence; Z79.84 Long term (current) use of oral hypoglycemic drugs; Z79.51 Long term (current) use of inhaled steroids; Z79.899 Other long term (current) drug therapy
CPT/HCPCS: 64585; 64595; 87070; 87075; 87205; J7120; J2405

== ENCOUNTER → 2018-11-10 14:34 | Outpatient (CLI) | payer MEDICARE, SELFPAY ==
[2018-10-29 10:52] VITALS: BMI 44.1
[2018-11-10 16:03] LABS: Hemoglobin 13.6 g/dl (12.0-15.0); Mean Corp Hgb Conc 30.9 g/gl (32-36); Mean Corpuscular Hgb 29.8 pg (27.0-32.0); Mean Corpuscular Volume 96.5 fL (81-99); Mean Platelet Vol. 10.8 fl (6.2-12.0); Platelet Count 262 K/mm3 (150-450); RBC Distribution Width CV 13.4 % (11.6-14.6); Red Blood Count 4.56 M/mm3 (4.2-5.4); White Blood Count 7.9 K/mm3 (4.4-11.0)
[2018-11-10 16:10] LABS: Scan Indicated on CBC? Y/N NO
[2018-11-10 16:20] LABS: ALB/GLOB Ratio 0.8 RATIO (0.9-2.4); AST(SGOT) 24 U/L (15-37); Alanine Aminotransfer ALT/SGPT 16 U/L (13-56); Albumin, Serum 3.3 g/dL (3.2-5.0); Alkaline Phosphatase 51 U/L (45-117); Anion Gap 10 (5-15); BUN 15 mg/dL (7-18); Chloride 110 mmol/L (98-107); Creatinine, Serum 1.15 mg/dL (0.55-1.02); EST Glomerular Filtration Rate 49 mL/min (>60); Est Glom Filt Rate - Afr Amer 59 mL/min (>60); Globulin 4.2 g/dL (2.2-4.2); Glucose 105 mg/dL (74-106); Lipase 118 U/L (73-393); Potassium 3.7 mmol/L (3.5-5.1); Protein, Total 7.5 g/dL (6.4-8.2); Sodium Level 145 mmol/L (136-145)
[2018-11-10 16:27] LABS: BNP,B-Type NATRIURETIC PEPTIDE 43.9 pg/mL (0-100)
== END ==
PROVIDERS: Family Provider Family Medicine; PCP Family Medicine; Referring Provider Family Medicine; Visit Provider Family Medicine
DX: R10.11 Right upper quadrant pain (principal); R06.02 Shortness of breath
CPT/HCPCS: 36415; 80053; 83690; 83880; 85027; 87086

== ENCOUNTER 2018-11-11 18:27 | Inpatient (IN) | payer MEDICARE, SELFPAY ==
[2018-11-11 18:28] VITALS: BP 155/54; PULSE 80; RESP 16; TEMP 36.4; O2SAT 98; BMI 43.3
--- NOTE | 2018-11-11 18:50 | CT_ITS ---
STUDY: CT ABDOMEN AND PELVIS WITH CONTRAST REASON FOR EXAM: Female, 73 years old. Abdominal pain. Back pain. RADIATION DOSAGE (If Supplied By Facility): CTDIvol = ( 25.39 ) mGy, DLP = ( 1215.33 ) mGycm TECHNIQUE: Transaxial images were obtained from the dome of the diaphragm to the symphysis pubis with oral contrast. 100ML ml of Isovue 300 contrast was administered. Sagittal and coronal images were reconstructed. Individualized dose optimization techniques were used for this CT. COMPARISON: None. FINDINGS: There is a moderate right pleural effusion with atelectasis. There is collapse of the right middle lobe. The heart is borderline enlarged. Normal liver. The gallbladder is not visualized. There is mild dilatation of the extrarenal collecting system suggesting prior cholecystectomy. Normal spleen. Normal pancreas. Normal bilateral adrenal glands. Both kidneys are low normal in size. There is no focal mass or renal calculi. Normal visualized bilateral ureters. Stomach is distended with debris and high density material. Question contrast. Normal small intestine. Feces is seen throughout the proximal colon. The distal colon is grossly normal. There are surgical clips in the region of the appendix consistent with a prior appendectomy. There is diffuse atherosclerotic calcification of the abdominal aorta, without a demonstrated aneurysm. Normal inferior vena cava. Normal retroperitoneum. Normal urinary bladder. Uterus appears normal. There is no adnexal mass. There is no pelvic lymphadenopathy. No free air or free fluid is seen within the peritoneal cavity. Normal abdominal wall. Mild degenerative changes lumbar spine most marked at L5-S1. There is partial collapse of the T10 vertebra. There is low attenuation material involving the posterior vertebral body at T10 extending into the posterior elements there is involvement of the posterior elements of T11. The findings are suggestive of bone metastases. CT/Abdomen/Pelvis WITH Contrast IMPRESSION: 1. 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 2. Right pleural effusion and atelectasis. 3. Collapse of the right middle lobe. 4. Borderline cardiomegaly. 5. No other evidence for acute intra-abdominal or pelvic abnormality. 6. Degenerative changes of the lumbar spine. 7. Atherosclerotic changes of the abdominal aorta. 8. Status post cholecystectomy and appendectomy N.B. : The above information has been verbally conveyed by Adam Arguello DO to Sonia Arredondo MD, on 11/11/2018 21:22:07 (ET). Electronically Signed: Adam Arguello DO at 21:23 EST Tel [phone], Service support ,
[2018-11-11] MEDS: Ondansetron 4 MG/2 ML Vial IV (19:08)
[2018-11-11] MEDS: 0.9% Normal Saline 1,000 ML 125 ML IV (19:08)
[2018-11-11] MEDS: HYDROmorphone 1 MG/ML Syringe IV ×2 (19:08→21:44)
[2018-11-11] MEDS: proMETHazine 25 MG/ML Syringe 12.5 MG IV ×2 (19:46→21:43)
--- NOTE | 2018-11-11 21:21 | CT_ITS ---
STUDY: CT CHEST WITHOUT CONTRAST REASON FOR EXAM: Female, 73 years old. Dyspnea and abnormal abdomen CT RADIATION DOSAGE (If Supplied By Facility): CTDIvol = ( 19.96 ) mGy, DLP = ( 688.39 ) mGycm TECHNIQUE: Transaxial imaging was performed without the administration of intravenous contrast material. Individualized dose optimization techniques were used for this CT. COMPARISON: None. FINDINGS: Right pleural effusion. Compressive right basilar atelectasis. Cardiomegaly. Tracheobronchial calcifications. Multiple lytic bone lesions are present concerning for metastatic disease. A large destructive lesion is present involving the T10 vertebra anterior and posterior elements with associated severe central canal stenosis and probable cord compression. Destructive lesions are also present involving the right T11 pedicle and posterior elements with moderate central canal stenosis. Overall, pre and post contrast thoracic spine MRI is recommended when and if possible. Diffuse mediastinal adenopathy is present. This includes a 17 mm short axis right paratracheal node. Probable ill-defined right hilar mass with associated occlusion of the right middle lobe bronchi and associated right middle lobe consolidation and atelectasis. The lesion in question measures 4.2 x 4.3 cm on image [address]/Chest without Contrast IMPRESSION: Multiple destructive osseous lesions are present concerning for metastatic disease. Probable associated cord compression at the T10 level. Pre and post contrast thoracic spine MRI is recommended when and if possible. Suggestion of right hilar mass on this limited noncontrast study with associated occlusion of the right middle lobe bronchus and right middle lobe consolidation and atelectasis. Consider PET/CT evaluation. Right pleural effusion. Diffuse mediastinal adenopathy. Electronically Signed: Harjinder Egan MD at 23:49 EST Tel , Service support ,
[2018-11-11 21:52] VITALS: BP 131/42; PULSE 86; RESP 20; O2SAT 93
[2018-11-11 23:00] VITALS: BP 117/45; PULSE 78; RESP 16; O2SAT 92
--- NOTE | 2018-11-11 23:43 | ED.VISSUMM ---
- ER Visit Summary Date of Service: 11/11/18 Chief Complaint: [Abdominal pain] History of Present Illness: The patient is a 73 F [presents the emergency department complaint of abdominal pain for the last 2-3 weeks. Patient complains of pain around her belt line and also wrapping around to her back. Patient states the pain is severe and rates it a 10 out of 10. Patient states the pain is worse with moving. She denies any pain rating down her legs. She has had no nausea or vomiting. She denies any diarrhea. She denies blood in her stool or black tarry stool. Patient saw her primary care physician yesterday who did some blood work which apparently was unremarkable. Patient has history of diabetes, hypertension, high cholesterol, hypothyroidism. Patient is an ex-smoker.] Physical Examination: [HEENT-PERRLA, EOMI. Cranial nerves II through XII grossly intact. TMs clear. Mucous membranes moist. No adenopathy. Cardiovascular-regular rate and rhythm without murmur or ectopy Lungs-clear to auscultation, chest wall stable without crepitus or subcu emphysema Abdomen-normoactive bowel sounds, soft, nontender, no rebound or rigidity, no peritoneal signs. I cannot reproduce her pain with palpation. Extremities-intact ?4, normal range of motion, normal pulses, atraumatic] Test Results: [Lab work was reviewed from yesterday which was unremarkable therefore was not repeated today. CT scan of the abdomen and pelvis with IV and p.o. contrast ordered was read by radiology as bony metastasis involving the T10 and T11 vertebrae with partial collapse of T10. Patient had right pleural effusion and atelectasis. Patient had a collapse of the right middle lobe. No other evidence of acute intra-abdominal or pelvic abnormality. Patient was noted to be status post cholecystectomy and appendectomy.] CT scan of the chest obtained without contrast given that she had IV contrast for her CT abdomen and pelvis showed multiple destructive osseous lesions present concerning for metastatic disease. Probable associated cord compression at T10 level. Pre-and postcontrast thoracic spine MRI recommended when and if possible. Suggestion of right hilar mass on this limited noncontrast study with associated occlusion of the right middle lobe bronchus and right middle lobe consolidation and atelectasis. Consider PET/CT evaluation. Right pleural effusion. Diffuse mediastinal adenopathy. Emergency Department Course and Treatment: [Patient was medicated with Dilaudid and Zofran. Case was discussed with radiologist who recommended obtaining a CT scan of the chest as well.] Treatment Plan: [Admit for pain control and further workup and evaluation] Disposition: [Admit] Impression: [Intractable back and abdomen pain. Bony metastasis of T10 and T11] This note was generated with [employer] dictation software. It may contain incorrect words, spelling, and punctuation that were not noted in review of the chart prior to signing ED Disposition - Plan for ED Patient: Chief Complaint: Abd Pain Referrals: Harjinder Borjas MD [Primary Care Provider] -
--- NOTE | 2018-11-11 23:58 | PCM.HP.STD ---
Problem List (1) Metastatic cancer Status: Acute (2) HTN (hypertension) Status: Chronic (3) Diabetes Status: Chronic History of Present Illness Date of Admission: 11/11/18 Chief Complaint: pain around the waist line from front to back. The patient is a 73 year old F with a significant history of former smoker; hypertension; diabetes mellitus; hyperlipidemia; hypothyroidism; GERD who presented with 2-3-week history of excruciating progressively worsening continuous bandlike pain that goes across her lower abdomen to her back. She stated that her pain is 12on a scale of 1-10. She described the pain as spasms and vice-like. Initially it was assumed that her pain was coming from a spinal stimulator placed at her back for overreactive bladder. This spinal stimulator was removed by Dr. Lindsey, urologist on 10/29/2018. But if even after removal of the stimulator the pain persisted. Her pain is aggravated by moving and relieved by lying still. Also she received morphine at the emergency department that helped relieved her pain momentarily. She has shortness of breath but she thinks that his shortness of breath is because it hurts when she breathes. Also patient reports that at home she has been taking Metamucil for about the past week because of constipation. However she denies any urinary problem. At emergency department abdominal and pelvis CT showed bony metastasis involving the T10 and T11 vertebra with partial collapse of T11; right pleural effusion and atelectasis; collapse of the right middle lobe and abdomen. A chest CT scan showed multiple destructive osseous lesion concerning for metastatic disease; probable associated cord compression at the T10 level. An MRI was recommended. Also radiologist suggested right lung mass with associated occlusion of right middle lobe bronchus and right middle lobe consolidation and atelectasis; as well as pleural effusion and diffuse mediastinal adenopathy. Past Medical History Past Medical History (Chronic Problems): Chronic Problems (Last Updated 11/12/18 @ 01:06 by Arthur Coreas MD) HTN (hypertension) (Chronic) Diabetes (Chronic) Medical History: Medical History (Last Updated 11/12/18 @ 01:06 by Arthur Coreas MD) Hypothyroidism E03.9 Allergies Sulfa (Sulfonamide Antibiotics) Allergy (Verified 10/28/18 14:36) Unknown sulfamethoxazole [From Septra] Allergy (Verified 10/28/18 14:36) Unknown trimethoprim [From Septra] Allergy (Verified 10/28/18 14:36) Unknown codeine Adverse Reaction (Verified 10/28/18 14:36) Nausea/Vom/Diarrhea hydrocodone [From Vicodin] Adverse Reaction (Verified 10/28/18 14:36) Nausea/Vom/Diarrhea lisinopril Adverse Reaction (Verified 10/28/18 14:36) cough Home Medications: Ambulatory Orders Medication Instructions Recorded Albuterol Aerosols [Ventolin 2.5 mg INHALATION Q4H PRN PRN 08/11/18 Aerosols] Hydrochlorothiazide 12.5 mg PO DAILY 08/11/18 Levothyroxine [Synthroid] 50 mcg PO DAILY 08/11/18 Metformin HCl [Metformin HCl ER] 500 mg PO DAILY 08/11/18 Multivit with Calcium,Iron,Min 1 each PO DAILY 08/11/18 [Multiple Vitamins For Women] Polyethylene Glycol 3350 [Miralax] 17 gm PO DAILY 08/11/18 Potassium Chloride [Klor-Con M10] 10 meq PO DAILY 08/11/18 Simvastatin [Zocor] 20 mg PO QHS 08/11/18 Ibuprofen [Motrin] 600 mg PO Q6H PRN PRN #14 tablet 10/29/18 Cholecalciferol (Vitamin D3) 2,000 unit PO DAILY 11/11/18 [D3-2000] Etodolac 400 mg PO BID 11/11/18 Losartan/Hydrochlorothiazide 1 tab PO DAILY 11/11/18 [Losartan-Hctz 50-12.5 mg Tab] Tizanidine HCl 4 mg PO Q8H PRN PRN 11/12/18 Surgical History: cholecystectomy, - - Implantation and removal of spinal stimulator at the back; lower back surgery. Smoking Status: Former smoker Alcohol: Occasional - *Family History Maternal Family History: Family History (Last Updated 11/12/18 @ 01:07 by Arthur Coreas MD) Father Heart problem Mother Lung cancer Review of Systems Constitutional: Denies: Chills, Fever, Weight Change HEENT: Denies: Head Aches, Sinus Congestion, Sinus Drainage Cardiovascular: Denies: Chest Pain, Palpitations Respiratory: Reports: Shortness of Breath. Denies: Cough Gastrointestinal: Reports: Abdominal Pain. Denies: Nausea, Vomiting Genitourinary: Denies: Dysuria Musculoskeletal: Reports: Back Pain - lower back. Denies: Joint Pain, Joint Tenderness Skin: Denies: Rash, Wounds Neurological: Denies: Numbness, Tingling, Focal weakness Psychiatric: Denies: Anxiety, Depression, Homicidal Ideations, Suicidal Ideations Hematologic/ Lymphatic: Denies: Easy Bruising, Easy Bleeding VTE Information - Inpt Only VTE Present on Admission: No VTE Mechan Device Prophylaxis: SCD's VTE Pharm Prophylaxis ordered?: Yes Patient Problems: Active and Suspected Problems (Last Updated 11/12/18 @ 01:06 by Arthur Coreas MD) Metastatic cancer (Acute) - Physical Exam General: Alert, Oriented x3, Cooperative HEENT: Atraumatic, PERRLA, EOMI, Normocephalic Neck: Supple, No JVD, Negative Carotid Bruits Lungs: Clear to auscultation, Normal air movement Cardiovascular: Regular rate, No murmurs Abdomen: Bowel Sounds Present, Soft, Non Tender Extremities: No edema, Capillary Refill Less than 3 Seconds Skin: No rashes, No breakdown Musculoskeletal: No Tenderness to Palpation of Joints or Extremities Neurological: Neuro grossly intact Psych/Mental Status: Normal Affect, Appropriate Vital Signs Temp Pulse Resp BP Pulse Ox 97.6 F L 78 16 117/45 L 92 11/11/18 18:28 11/11/18 23:00 11/11/18 23:00 11/11/18 23:00 11/11/18 23:00 Oxygen Delivery Method Room Air Weight: 114.5 kg Body Mass Index (BMI) 43.3 Assessment/Plan All Active Problems (Last Updated 11/12/18 @ 01:06 by Arthur Coreas MD) Metastatic cancer (Acute) The patient is a 73 year old F with a significant history of former smoker; hypertension; diabetes mellitus; hyperlipidemia; hypothyroidism; GERD who presented with 2-3-week history of excruciating progressively worsening continuous bandlike pain that goes across her lower abdomen to her back; with radiographic findings suggestive of metastatic disease with likely primary from her lungs. Probable metastatic cancer Independent review of CT chest; and CT abdomen and pelvis is consistent with probable metastatic cancer. Since there is a right pleural effusion, will order ultrasound thoracentesis for diagnostic study and cytology. We will consult pulmonary medicine and oncology to optimize diagnostic procedures and management.. Since there is probable cord compression, dexamethasone IV 20 mg x1 and then scheduled p.o. dexamethasone. We will hold off home NSAIDs as patient has been placed on Decadron. We will check PT/INR prior to ultrasound thoracentesis. Dilaudid IV as needed for pain ordered. Zofran antiemetics ordered in the setting of narcotic use. Senokot?S ordered in the setting of narcotic use. Albuterol as needed continued. Will keep npo for thoracentesis Hypertension On admission blood pressure was not within goal. Cozaar and hydrochlorothiazide continued Trend blood pressures and adjust blood pressure medication as necessary. Diabetes mellitus Review of outpatient labs showed that her glucose on 11/10/2018 was 105 on BMP. She takes metformin at home. We will hold metformin since it is too early in her admission, Do not anticipate that patient may need insulin requirements at this time since she is only taking metformin 500 mg daily. BMP in a.m. Hypothyroidism Synthroid ordered. Hyperlipidemia Lipitor continued DVT prophylaxis Patient is a high risk of thromboembolism since she has probable cancer. However due to probable interventions will not put patient on Lovenox at this time. Heparin subcutaneous ordered. SCD ordered. Code Visit Inpatient E&M: 46692 Init Hosp L3
[2018-11-12] VITALS (8 sets, daily range): BP systolic 117–179; BP diastolic 45–86; PULSE 78–110; RESP 16–20; TEMP 36.7–37.1; O2SAT 90–97; BMI 43.3; BMI 43.6
--- NOTE | 2018-11-12 | IMM_PTH ---
PATIENT: CARLOS HUNT LOC: [facility] U#:[id number] AGE/SX: 73/F ROOM: [facility] RE11/12/[address]: Dr. Cam Hadley DO : 1945 BED: 1 DIS: 11/12/2018 SPEC #: [id number] RECD: 11/18/18 12:34 STATUS: BUDDY REQ #: [id number] CONNER: 11/12/18 00:[address]: Cam Hadley DEPT: IMMUNOHISTOCHEMISTRY RECD BY: Sasha Styles ENTERED: 11/18/18 12:37 SP TYPE: IMMUNO OTHR DR: MD Dr. Arthur Garrison MD Dr. Joseph Prah, MD Dr. William Lago, MD Tissues: THORACIC FLUID Procedures: RCC (add) NAPSIN A (add) Alfonso Ret (add) CD45 (add) CK20 (add) CK7 (add) CK8 (add) E-CAD (add) HEP PAR (add) HER2 SHIVA (add) MACRO (add) MAMM (add) ID (add) TTF1 (add) Vimentin (add) GATA3 (add) ER (initial) PHYSICIAN & INSTITUTION [place] [id number] SPECIMEN INFORMATION: Tissue Source: Thoracentesis fluid Clinical Info: Metastatic cancer Specimen Number: [id number] CPT code: 53993, 25667 x16 METHODOLOGY: Deparaffinized sections of prefer/formalin-fixed tissue or PAP/DQ stained slides are incubated with monoclonal/polyclonal antibodies/oligonucleotide probes. Localization is made via biotin free immunoperoxidase method. Appropriate controls are performed and reacted as expected. Results on target cell population are indicated in the following table: RESULTS: ANTIBODY / CLONE RESULT ER (6F11) negative ID (1E2) negative Her-2neu (CB11) negative E-Cad (ECH-6) negative Mammaglobin (31A5) negative GATA3 (L50-823) negative Vimentin (V9) negative (positive in mesothelial cells and macrophages and inflammatory cells) CK7 (OV-TL12/30) negative CK8 (51rrxlR76) negative CK20 (KS20.8) negative CD45 (RP2/18) negative TTF-1 (8G7G3/1) negative Napsin A (Rabbit Polyclonal) negative HepPar (OCh1E5) negative RCC (PN-15) negative Macro (HAM-56) negative (positive in macrophages) CALRET (polyclonal) negative (positive in mesothelial cells) These tests were developed and their performance characteristics determined by [facility]. They may not have been cleared or approved by the U.S. Food and Drug Administration. The FDA has determined that such clearance or approval is not necessary. INTERPRETATION: Thoracentesis fluid: Negative for malignant cells. SJ:aishwarya 11/18/18 Case has been reviewed in consultation with Dr. Hancock who concurs with the above diagnosis. IDC:AM
--- NOTE | 2018-11-12 | FLU_PTH ---
PATIENT: CARLOS HUNT LOC: [facility] U#:[id number] AGE/SX: 73/F ROOM: [facility] RE11/12/[address]: Dr. Cam Hadley DO : 1945 BED: 1 DIS: 11/12/2018 SPEC #: [id number] RECD: 11/12/18 14:20 STATUS: BUDDY REQ #: [id number] CONNER: 11/12/18 00:[address]: Cam Hadley DEPT: CYTOLOGY RECD BY: Octavio Cohen ENTERED: 11/12/18 14:21 SP TYPE: Fluid OTHR DR: MD Dr. Arthur Garrison MD Dr. Joseph Prah, MD Dr. William Lago, MD Tissues: THORACIC FLUID Procedures: Pap Stain (control) Special Stain Group II Surgery Specimen Level IV Cell Block Cytospin Fluid HEADER OPERATION: Ultrasound-guided right thoracentesis PRE-OP DIAGNOSIS: Metastatic cancer TISSUE SUBMITTED: Thoracentesis fluid for cytology DIAGNOSIS CYTOLOGY Thoracentesis fluid for cytology (cytospins and cell blocks): Negative for malignant cells. SJ:aishwarya 11/15/18 COMMENT Immunohistochemistry ([id number]) supports the above diagnosis. Case has been reviewed in consultation with Dr. Hancock who concurs with the above diagnosis. IDC:AM CYTOLOGY STUDY Slides are reviewed. CYTOLOGY GROSS Received is 120 ml of bev cloudy fluid labeled with the patient's name and and designated per the requisition as thoracentesis. Submitted for cytology preparation including cell block (7 cell blocks are prepared). 11/12/18 TC:5 CPT: 60317, 28371
[2018-11-12] MEDS: HYDROmorphone 1 MG/ML Syringe IV ×6 (00:30→20:25)
--- NOTE | 2018-11-12 01:02 | US_ITS ---
Under ultrasound guidance and following appropriate aseptic preparation, minor sedation and local anesthesia: 5 Mongolian catheter was introduced into the right pleural cavity, 140ml of serosanguineous fluid aspirated and sent to the lab for further assessment. The catheter was then removed because not significant amount of pleural effusion is detected. US/Thoracentesis W US IMPRESSION: Uneventful diagnostic aspiration of right pleural effusion Electronically Signed: Jeb Keith, at 16:22 EST Tel , Service support ,
[2018-11-12] MEDS: 0.9% NaCl Peripheral Flush Adult/Peds IV ×6 (03:53→20:27)
[2018-11-12] MEDS: Levothyroxine 50 MCG Tablet PO (05:51)
[2018-11-12 07:34] LABS: Hematocrit 43.2 % (37-47); Hemoglobin 13.4 g/dl (12.0-15.0); Mean Corpuscular Hgb 30.5 pg (27.0-32.0); Mean Corpuscular Volume 98.2 fL (81-99); Mean Platelet Vol. 10.7 fl (6.2-12.0); Platelet Count 271 K/mm3 (150-450); RBC Distribution Width CV 13.5 % (11.6-14.6); RBC Distribution Width SD 47.3 fl (35.1-43.9); White Blood Count 10.5 K/mm3 (4.4-11.0)
[2018-11-12 07:38] LABS: Scan Indicated on CBC? Y/N NO
[2018-11-12 07:57] LABS: International Normalized Ratio 1.1; Prothrombin Time (Protime)PT. 13.9 SECONDS (11.7-14.9)
[2018-11-12 08:08] LABS: ALB/GLOB Ratio 0.8 RATIO (0.9-2.4); Anion Gap 7 (5-15); BUN 17 mg/dL (7-18); BUN/Creat Ratio 17.3 RATIO (10-20); Calcium,Total 8.8 mg/dL (8.5-10.1); Chloride 109 mmol/L (98-107); Creatinine, Serum 0.98 mg/dL (0.55-1.02); EST Glomerular Filtration Rate 59 mL/min (>60); Est Glom Filt Rate - Afr Amer 71 mL/min (>60); Estimated Creatinine Clearance 42.83 ml/min; Globulin 4.3 g/dL (2.2-4.2); Glucose 150 mg/dL (74-106); LDH 440 U/L (84-246); Potassium 3.8 mmol/L (3.5-5.1); Protein, Total 7.7 g/dL (6.4-8.2); Sodium Level 141 mmol/L (136-145)
--- NOTE | 2018-11-12 10:51 | PCM.CONS.GEN ---
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 Patient reportedly had pain around her beltline that she described as gallbladder pain. Patient described this is 10 out of 10 and exacerbated by worsening. Patient did not have any radiculopathy, nausea, vomiting, diarrhea or melena reported. Patient had recently had a bladder stimulator removed as she thought this was the cause of her back pain. Given that it did not improved or resolved following removal, patient went to the ER for evaluation. In the emergency room, patient had a CT scan of the abdomen and pelvis showing bony metastasis to T10 and T11 with partial collapse of T10. Patient also was noted to have a right pleural effusion and collapse of the right middle lobe. Patient was admitted to the floor for control of intractable back pain. On my evaluation, patient did appear comfortable. Patient denies any previous history of lung pathology, but does report a 94-67-fmiq-year smoking history. Patient reports no exposure to asbestos or TB that she is aware of. Patient denies any unintentional weight loss. Patient states she did have a colonoscopy last year that was normal. Patient has had abnormal mammograms in the past, but is not required any biopsies. Patient feels her last mammogram was 1-2 years ago. Review of systems otherwise negative x10 systems. Past Medical History Past Medical History (Chronic Problems): Chronic Problems (Last Updated 11/12/18 @ 01:06 by Arthur Coreas MD) HTN (hypertension) (Chronic) Diabetes (Chronic) Hyperlipidemia associated with type 2 diabetes mellitus (Chronic) Morbid (severe) obesity due to excess calories (Chronic) Hypothyroidism (Chronic) Medical History: Medical History (Last Updated 11/12/18 @ 01:06 by Arthur Coreas MD) Hypothyroidism E03.9 Allergies Sulfa (Sulfonamide Antibiotics) Allergy (Verified 10/28/18 14:36) Unknown sulfamethoxazole [From Septra] Allergy (Verified 10/28/18 14:36) Unknown trimethoprim [From Septra] Allergy (Verified 10/28/18 14:36) Unknown codeine Adverse Reaction (Verified 10/28/18 14:36) Nausea/Vom/Diarrhea hydrocodone [From Vicodin] Adverse Reaction (Verified 10/28/18 14:36) Nausea/Vom/Diarrhea lisinopril Adverse Reaction (Verified 10/28/18 14:36) cough Home Medications: Ambulatory Orders Medication Instructions Recorded Albuterol Aerosols [Ventolin 2.5 mg INHALATION Q4H PRN PRN 08/11/18 Aerosols] Levothyroxine [Synthroid] 50 mcg PO DAILY 08/11/18 Metformin HCl [Metformin HCl ER] 500 mg PO DAILY 08/11/18 Multivit with Calcium,Iron,Min 1 each PO DAILY 08/11/18 [Multiple Vitamins For Women] Polyethylene Glycol 3350 [Miralax] 17 gm PO DAILY 08/11/18 Potassium Chloride [Klor-Con M10] 10 meq PO DAILY 08/11/18 RX: Hydrochlorothiazide 12.5 mg PO DAILY 08/11/18 Simvastatin [Zocor] 20 mg PO QHS 08/11/18 RX: Ibuprofen [Motrin] 600 mg PO Q6H PRN PRN #14 tablet 10/29/18 Cholecalciferol (Vitamin D3) 2,000 unit PO DAILY 11/11/18 [D3-2000] Etodolac 400 mg PO BID 11/11/18 Losartan/Hydrochlorothiazide 1 tab PO DAILY 11/11/18 [Losartan-Hctz 50-12.5 mg Tab] RX: Tizanidine HCl 4 mg PO Q8H PRN PRN 11/12/18 Surgical History: cholecystectomy, - - Implantation and removal of spinal stimulator at the back; lower back surgery. Smoking Status: Former smoker Alcohol: Occasional - *Family History Maternal Family History: Family History (Last Updated 11/12/18 @ 01:07 by Arthur Coreas MD) Father Heart problem Mother Lung cancer Review of Systems Comment: See HPI Objective: CT scan of the chest was personally reviewed and I agree with formal interpretation. Patient does have narrowing of the right middle lobe bronchus and right pleural effusion. Significant mediastinal lymphadenopathy appreciated. - Physical Exam General: Alert, Oriented x3, Cooperative, No apparent distress, - - Morbidly obese. Appears stated age. Speaking in full sentences. HEENT: Atraumatic, PERRLA, EOMI, Normocephalic, - - No scleral icterus or injection noted. Glasses in place. Oral: Moist Mucosa, No Gingival or Mucosal Lesions/ Ulcerations Neck: Supple, No JVD, No Nodes, Trachea Midline Lungs: No rhonchi, No wheeze, No rales, Diminished - Anterior right, - - Symmetric expansion. Slight dullness to percussion at the right base Cardiovascular: Regular rate, Regular Rhythm, Normal S1, Normal S2, No murmurs, No rub noted, No Gallop Abdomen: Bowel Sounds Present, Soft, Non Tender, Non-Distended, Obese Extremities: No clubbing, No cyanosis, Edema - Trace lower extremity Skin: No rashes, No breakdown Musculoskeletal: No Tenderness to Palpation of Joints or Extremities Lymphatic: No Cervical, Supraclavicular, or Inguinal Adenopathy Neurological: Cranial nerves II-XII grossly intact, Neuro grossly intact, Motor Exam 5/5 strength throughout Psych/Mental Status: Alert and oriented to time, place, person, mood and affect Vital Signs Temp Pulse Resp BP Pulse Ox 36.8 C 110 H 18 166/86 H 95 11/12/18 10:30 11/12/18 10:30 11/12/18 10:30 11/12/18 10:30 11/12/18 10:30 Oxygen Flow Rate (L/min) 2 Oxygen Delivery Method Nasal Cannula Weight: 115.3 kg Body Mass Index (BMI) 43.6 Intake and Output for Last 24 Hours 11/10/18 11/11/18 11/12/18 23:59 23:59 23:59 Intake Total 50 / 50 Balance 50 / 50 Laboratory Tests Past 24 Hrs 11/12/18 11/12/18 11/12/18 06:20 06:20 06:20 WBC 10.5 RBC 4.40 Hgb 13.4 Hct 43.2 MCV 98.2 MCH 30.5 MCHC 31.0 L RDW 13.5 RDW Differential 47.3 H Plt Count 271 MPV 10.7 PT 13.9 INR 1.1 Sodium 141 Potassium 3.8 Chloride 109 H Carbon Dioxide 25.0 Anion Gap 7 BUN 17 Creatinine 0.98 Estim Creat Clear Calc 42.83 Est GFR (MDRD) Af Amer 71 Est GFR (MDRD) Non-Af 59 L BUN/Creatinine Ratio 17.3 Glucose 150 H Calcium 8.8 Lactate Dehydrogenase 440 H Total Protein 7.7 Globulin 4.3 H Albumin/Globulin Ratio 0.8 L Clinical Impression(s) from Imaging Studies Abdomen/Pelvis CT 11/11/18 18:50 IMPRESSION: 1. 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 2. Right pleural effusion and atelectasis. 3. Collapse of the right middle lobe. 4. Borderline cardiomegaly. 5. No other evidence for acute intra-abdominal or pelvic abnormality. 6. Degenerative changes of the lumbar spine. 7. Atherosclerotic changes of the abdominal aorta. 8. Status post cholecystectomy and appendectomy N.B. : The above information has been verbally conveyed by Adam Arguello DO to Sonia Arredondo MD, on 11/11/2018 21:22:07 (ET). Electronically Signed: Adam Arguello DO at 21:23 EST Tel [phone], Service support , Chest CT 11/11/18 21:21 IMPRESSION: Multiple destructive osseous lesions are present concerning for metastatic disease. Probable associated cord compression at the T10 level. Pre and post contrast thoracic spine MRI is recommended when and if possible. Suggestion of right hilar mass on this limited noncontrast study with associated occlusion of the right middle lobe bronchus and right middle lobe consolidation and atelectasis. Consider PET/CT evaluation. Right pleural effusion. Diffuse mediastinal adenopathy. Electronically Signed: Harjinder Egan MD at 23:49 EST Tel , Service support , Assessment/Plan All Active Problems (Last Updated 11/12/18 @ 01:06 by Arthur Coreas MD) Back pain of thoracolumbar region (Acute) Disseminated malignancy (Acute) Pleural effusion, right (Acute) Mass of middle lobe of right lung (Acute) RECOMMENDATIONS: 1. Obtain diagnostic/therapeutic thoracentesis 2. Aggressive pain control per primary service 3. Okay to discharge if no complications from thoracentesis 4. Follow-up next week in the office to review test results IMPRESSIONS: 1. Abnormal CT scan Clinical suspicion for malignancy leading to current findings. Patient has requested diagnostic workup. Patient does have a right-sided pleural effusion with what appears to be osteolytic invasion of the T10/T11 vertebrae. A thoracentesis should be relatively safe and may be diagnostic. Also discussed bronchoscopy and a CT-guided biopsy of spinal mass as other options. After review of the risks, benefits and alternatives, patient has agreed to proceed with a thoracentesis. Patient can follow-up in our office as an outpatient next week to review the results. If nondiagnostic, further workup could be suggested. Bronchoscopy does appear to be a viable option given right middle lobe findings. Awaiting cytology would not be necessary and patient could be discharged if no complications from thoracentesis from a pulmonary perspective. 2. Irretractable back pain Patient with probable malignant invasion of T10/T11. Defer to patient's hospitalist service for options. Patient may benefit from a pain management consult as it would be expected that this could continue throughout the patient's remaining life. 3. Morbid obesity/diabetes/hypertension/hypercholesterolemia/hypothyroidism/advanced age Complicates care, management, recovery and prognosis. Patient can continue with baseline medications from my perspective. Code Visit Inpatient E&M: 10185 Init Hosp L2
[2018-11-12] MEDS: Ondansetron 4 MG/2 ML Vial IV (10:55)
--- NOTE | 2018-11-12 10:55 | CASEMGMT ---
SHARMIN CASTAÑEDA assessment: Face to Face with patient for initial transition planning/care coordination assessment. SHARMIN CASTAÑEDA introduced self and role at [facility], pt voices understanding. Pt is sitting up in bed in no distress at this time with daughter and granddaughter at bedside. Pt is A/Ox4 at this time and answers all questions appropriately at this time. Care providers, pharmacy, and demographics verified/updated at this time. PCP: Suad Specialists: César, urology [facility] [place] Insurance: [facility] Prescription Benefit: [facility] Living Will/HPOA: Pt states has LW/HPOA and thought that they were on file here at [facility]. Advised pt that they are not currently on file at [facility], voices understanding. [facility] aware and placing call to Dr. Borjas's office at this time to see if they have AD on file. LNOK: Kin Ruth, ; Nikki Wilkes, daughter Living Arrangements: Pt states lives with on main level of 2 story home and states no concerns at home at this time. Pt states has been helping more and more with ADL's and per family pt has been needing 'a lot of assist lately.' Transportation: Pt states drives self and states no transportation concerns at this time. DME/HHC: Pt states has the following DME: shower chair, raised toilet seat, and walker. Pt states no hx of HHC or SNF in the past. Pt initially stated no concerns with going home at discharge but daughter/granddaughter state concerns with pt going home at time of discharge. They states pt has had increased pain/weakness. Pt is agreeable to a SNF at this time and would like to know what facilities in [place] are in-network with her insurance at this time. Referral to [facility] at this time, voices understanding. Pt is retired. Pt states does not smoke or drink ETOH. Pt states no further concerns/needs at this time. CM to follow for any further discharge planning/needs. Advised pt to ask for CM if any further questions/concerns/needs arise, voices understanding. Plan: [facility] SHARMIN CASTAÑEDA
[2018-11-12] MEDS: hydroCHLOROthiazide 25 MG Tablet PO (10:56)
[2018-11-12] MEDS: Senna/Docusate Sodium 1 Tablet 2 TABLET PO (10:56)
[2018-11-12] MEDS: Losartan Potassium 50 MG Tablet PO (10:56)
--- NOTE | 2018-11-12 10:57 | CON.PCM_ITS ---
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 Patient reportedly had pain around her beltline that she described as gallbladder pain. Patient described this is 10 out of 10 and exacerbated by worsening. Patient did not have any radiculopathy, nausea, vomiting, diarrhea or melena reported. Patient had recently had a bladder stimulator removed as she thought this was the cause of her back pain. Given that it did not improved or resolved following removal, patient went to the ER for evaluation. In the emergency room, patient had a CT scan of the abdomen and pelvis showing bony metastasis to T10 and T11 with partial collapse of T10. Patient also was noted to have a right pleural effusion and collapse of the right middle lobe. Patient was admitted to the floor for control of intractable back pain. On my evaluation, patient did appear comfortable. Patient denies any previous history of lung pathology, but does report a 43-21-ajxl-year smoking history. Patient reports no exposure to asbestos or TB that she is aware of. Patient denies any unintentional weight loss. Patient states she did have a colonoscopy last year that was normal. Patient has had abnormal mammograms in the past, but is not required any biopsies. Patient feels her last mammogram was 1-2 years ago. Review of systems otherwise negative x10 systems. Past Medical History Past Medical History (Chronic Problems): Chronic Problems (Last Updated 11/12/18 @ 01:06 by Arthur Coreas MD) HTN (hypertension) (Chronic) Diabetes (Chronic) Hyperlipidemia associated with type 2 diabetes mellitus (Chronic) Morbid (severe) obesity due to excess calories (Chronic) Hypothyroidism (Chronic) Medical History: Medical History (Last Updated 11/12/18 @ 01:06 by Arthur Coreas MD) Hypothyroidism E03.9 Allergies Sulfa (Sulfonamide Antibiotics) Allergy (Verified 10/28/18 14:36) Unknown sulfamethoxazole [From Septra] Allergy (Verified 10/28/18 14:36) Unknown trimethoprim [From Septra] Allergy (Verified 10/28/18 14:36) Unknown codeine Adverse Reaction (Verified 10/28/18 14:36) Nausea/Vom/Diarrhea hydrocodone [From Vicodin] Adverse Reaction (Verified 10/28/18 14:36) Nausea/Vom/Diarrhea lisinopril Adverse Reaction (Verified 10/28/18 14:36) cough Home Medications: Ambulatory Orders Medication Instructions Recorded Albuterol Aerosols [Ventolin 2.5 mg INHALATION Q4H PRN PRN 08/11/18 Aerosols] Levothyroxine [Synthroid] 50 mcg PO DAILY 08/11/18 Metformin HCl [Metformin HCl ER] 500 mg PO DAILY 08/11/18 Multivit with Calcium,Iron,Min 1 each PO DAILY 08/11/18 [Multiple Vitamins For Women] Polyethylene Glycol 3350 [Miralax] 17 gm PO DAILY 08/11/18 Potassium Chloride [Klor-Con M10] 10 meq PO DAILY 08/11/18 RX: Hydrochlorothiazide 12.5 mg PO DAILY 08/11/18 Simvastatin [Zocor] 20 mg PO QHS 08/11/18 RX: Ibuprofen [Motrin] 600 mg PO Q6H PRN PRN #14 tablet 10/29/18 Cholecalciferol (Vitamin D3) 2,000 unit PO DAILY 11/11/18 [D3-2000] Etodolac 400 mg PO BID 11/11/18 Losartan/Hydrochlorothiazide 1 tab PO DAILY 11/11/18 [Losartan-Hctz 50-12.5 mg Tab] RX: Tizanidine HCl 4 mg PO Q8H PRN PRN 11/12/18 Surgical History: cholecystectomy, - - Implantation and removal of spinal stimulator at the back; lower back surgery. Smoking Status: Former smoker Alcohol: Occasional - *Family History Maternal Family History: Family History (Last Updated 11/12/18 @ 01:07 by Arthur Coreas MD) Father Heart problem Mother Lung cancer Review of Systems Comment: See HPI Objective: CT scan of the chest was personally reviewed and I agree with formal inte rpretation. Patient does have narrowing of the right middle lobe bronchus and right pleural effusion. Significant mediastinal lymphadenopathy appreciated. - Physical Exam General: Alert, Oriented x3, Cooperative, No apparent distress, - - Morbidly obese. Appears stated age. Speaking in full sentences. HEENT: Atraumatic, PERRLA, EOMI, Normocephalic, - - No scleral icterus or injection noted. Glasses in place. Oral: Moist Mucosa, No Gingival or Mucosal Lesions/ Ulcerations Neck: Supple, No JVD, No Nodes, Trachea Midline Lungs: No rhonchi, No wheeze, No rales, Diminished - Anterior right, - - Symmetric expansion. Slight dullness to percussion at the right base Cardiovascular: Regular rate, Regular Rhythm, Normal S1, Normal S2, No murmurs, No rub noted, No Gallop Abdomen: Bowel Sounds Present, Soft, Non Tender, Non-Distended, Obese Extremities: No clubbing, No cyanosis, Edema - Trace lower extremity Skin: No rashes, No breakdown Musculoskeletal: No Tenderness to Palpation of Joints or Extremities Lymphatic: No Cervical, Supraclavicular, or Inguinal Adenopathy Neurological: Cranial nerves II-XII grossly intact, Neuro grossly intact, Motor Exam 5/5 strength throughout Psych/Mental Status: Alert and oriented to time, place, person, mood and affect Vital Signs Temp Pulse Resp BP Pulse Ox 36.8 C 110 H 18 166/86 H 95 11/12/18 10:30 11/12/18 10:30 11/12/18 10:30 11/12/18 10:30 11/12/18 10:30 Oxygen Flow Rate (L/min) 2 Oxygen Delivery Method Nasal Cannula Weight: 115.3 kg Body Mass Index (BMI) 43.6 Intake and Output for Last 24 Hours 11/10/18 11/11/18 11/12/18 23:59 23:59 23:59 Intake Total 50 / 50 Balance 50 / 50 Laboratory Tests Past 24 Hrs 11/12/18 11/12/18 11/12/18 06:20 06:20 06:20 WBC 10.5 RBC 4.40 Hgb 13.4 Hct 43.2 MCV 98.2 MCH 30.5 MCHC 31.0 L RDW 13.5 RDW Differential 47.3 H Plt Count 271 MPV 10.7 PT 13.9 INR 1.1 Sodium 141 Potassium 3.8 Chloride 109 H Carbon Dioxide 25.0 Anion Gap 7 BUN 17 Creatinine 0.98 Estim Creat Clear Calc 42.83 Est GFR (MDRD) Af Amer 71 Est GFR (MDRD) Non-Af 59 L BUN/Creatinine Ratio 17.3 Glucose 150 H Calcium 8.8 Lactate Dehydrogenase 440 H Total Protein 7.7 Globulin 4.3 H Albumin/Globulin Ratio 0.8 L Clinical Impression(s) from Imaging Studies Abdomen/Pelvis CT 11/11/18 18:50 IMPRESSION: 1. 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 2. Right pleural effusion and atelectasis. 3. Collapse of the right middle lobe. 4. Borderline cardiomegaly. 5. No other evidence for acute intra-abdominal or pelvic abnormality. 6. Degenerative changes of the lumbar spine. 7. Atherosclerotic changes of the abdominal aorta. 8. Status post cholecystectomy and appendectomy N.B. : The above information has been verbally conveyed by Adam Arguello DO to Sonia Arredondo MD, on 11/11/2018 21:22:07 (ET). Electronically Signed: Adam Arguello DO at 21:23 EST Tel [phone], Service support , Chest CT 11/11/18 21:21 IMPRESSION: Multiple destructive osseous lesions are present concerning for metastatic disease. Probable associated cord compression at the T10 level. Pre and post contrast thoracic spine MRI is recommended when and if possible. Suggestion of right hilar mass on this limited noncontrast study with associated occlusion of the right middle lobe bronchus and right middle lobe consolidation and atelectasis. Consider PET/CT evaluation. Right pleural effusion. Diffuse mediastinal adenopathy. Electronically Signed: Harjinder Egan MD at 23:49 EST Tel , Service support , Assessment/Plan All Active Problems (Last Updated 11/12/18 @ 01:06 by Arthur Coreas MD) Back pain of thoracolumbar region (Acute) Disseminated malignancy (Acute) Pleural effusion, right (Acute) Mass of middle lobe of right lung (Acute) RECOMMENDATIONS: 1. Obtain diagnostic/therapeutic thoracentesis 2. Aggressive pain control per primary service 3. Okay to discharge if no complications from thoracentesis 4. Follow-up next week in the office to review test results IMPRESSIONS: 1. Abnormal CT scan Clinical suspicion for malignancy leading to current findings. Patient has requested diagnostic workup. Patient does have a right-sided pleural effusion with what appears to be osteolytic invasion of the T10/T11 vertebrae. A thoracentesis should be relatively safe and may be diagnostic. Also discussed bronchoscopy and a CT-guided biopsy of spinal mass as other options. After review of the risks, benefits and alternatives, patient has agreed to proceed with a thoracentesis. Patient can follow-up in our office as an outpatient next week to review the results. If nondiagnostic, further workup could be suggested. Bronchoscopy does appear to be a viable option given right middle lobe findings. Awaiting cytology would not be necessary and patient could be discharged if no complications from thoracentesis from a pulmonary perspective. 2. Irretractable back pain Patient with probable malignant invasion of T10/T11. Defer to patient's hospitalist service for options. Patient may benefit from a pain management consult as it would be expected that this could continue throughout the patient's remaining life. 3. Morbid obesity/diabetes/hypertension/hypercholesterolemia/hypothyroidism/advanced age Complicates care, management, recovery and prognosis. Patient can continue with baseline medications from my perspective. Code Visit Inpatient E&M: 15659 Init Hosp L2
--- NOTE | 2018-11-12 11:00 | CASEMGMT ---
Addendum entered by Diane Mcclain 11/12/18 15:18: Phone call from [facility] in TCU and precert has been given. Michael ROSS notified. Pt can go to TCU over the weekend should pt be ready for d/c. OSMAN met with pt and family and informed that TCU can accept pt when medically ready. Plan: TCU, when medically ready SHARON Prasad Original Note: Social Work SW met with pt and granddaughter and talked about d/c plan. Pt lives at home with her spouse, but he is unable to provide assistance. Pt is having difficulty at home and needs SNF placement for rehab prior to return home. Pt would like to go to TCU. SW placed call to [facility] in TCU. They are able to accept pt and will start precert. SW to follow. SHARON Prasad
--- NOTE | 2018-11-12 11:33 | MRI_ITS ---
STUDY: MRI THORACIC SPINE WITH AND WITHOUT CONTRAST REASON FOR EXAM: Female, 73 years old. Follow-up of abnormal CT scan which showed metastasis at T10. TECHNIQUE: 10 ml of Gadavist was administered intravenously for the contrast portion of the examination. COMPARISON: CT of the chest dated November 11, 2018. FINDINGS: Incidental note is made of multilevel degenerative changes of the visualized cervical spine. Normal kyphosis of the thoracic spine. There is no substantial scoliosis. T1-2, T2-3, T3-4, T4-5, T5-6, T6-7, T7-8, T8-9, T9-10, T10-11, T11-12: There is abnormal signal within the T10 vertebral body corresponding to the abnormality identified in recent CT. This has abnormally increased T2 signal and decreased T1 signal. This appears to involve the vertebral body of T10 as well as the spinous processes of T9 and T10. There is also involvement of the pedicles of T10. There is encroachment upon the thecal sac by the tumor without MRI evidence for compression of the spinal cord at this level though the encroachment and acquired canal stenosis is considered moderate. There is focus of abnormal enhancement identified within the T9 vertebral body. There is also focus of abnormal signal within the T8 vertebral body which also enhances probably representing additional metastasis. There is abnormal enhancement of a T11 spinous process and right T11 pedicle after intravenous administration contrast. There is diffuse abnormal enhancement of the T10 vertebral body and posterior elements.. There appears to be hemangioma versus intraosseous lipoma within T7. Other remaining thoracic vertebral bodies have generally normal height, alignment and signal characteristics. Normal visualized thoracic cord. The conus medullaris is not definitely identified on the current study. . There appears to be a right-sided pleural effusion. There appears to be a mass in the region of the right hilar area which may represent primary neoplastic process. This is better seen on the recent CT. MRI/Spine Thoracic W/WO Contrast IMPRESSION: 1. Abnormal appearance to the T10 vertebral body what probably represents mild pathologic compression fracture and extensive metastatic involvement, as described. There is moderate canal stenosis at this level without definite cord impingement. 2. Additional metastases are visible at T8, T9 and T11. 3. Right-sided pleural effusion and right-sided hilar mass with postobstructive atelectasis. Electronically Signed: Niru Mcgarry MD at 22:19 EST , Service support ,
--- NOTE | 2018-11-12 12:49 | ONC.CONS.INP ---
Consult Referring Physician: Dr. Alonso Hadley Consult Results: Destructive bone lesion, R partially collapsed lung and effusion. Subjective Date of Service:: 11/12/18 Chief Complaint: Asked to see Pt with chronic back and destructive lesion on CT. History of Present Illness: 73-year-old woman presented with chronic back pain. CT of chest, abdomen and pelvis on 11/11/2018 showed right middle lobe collapse with effusion, mediastinal adenopathy, multiple destructive bony lesions concerning for metastatic disease. There is a destructive lesion at T10 with probable cord compression. Past Medical History: Chronic Problems (Last Updated 11/12/18 @ 01:06 by Arthur Coreas MD) HTN (hypertension) (Chronic) Diabetes (Chronic) Hyperlipidemia associated with type 2 diabetes mellitus (Chronic) Morbid (severe) obesity due to excess calories (Chronic) Hypothyroidism (Chronic) Past Medical/Surgical History: Past Medical History - Most Recent Inpatient Visit Past Medical History Start: 11/12/18 01:11 Text: Status: Complete Freq: ONCE Protocol: Document 11/12/18 01:11 PAL (Rec: 11/12/18 01:55 [facility] [id number]) BMI Required to complete PMH What is Patient's BMI 43.3 Past Medical History Unable History Recalled Yes Query Text:Pt Unable/Family Not Present Neurologic Medical History Hx Stroke/TIA No Hx Dementia/Alzheimer's No Hx Parkinson's Disease No Hx Seizures No Hx Multiple Sclerosis No Hx Migraines No Cardiac Medical History VTE Present on Admission No Hx of Deep Vein Thrombosis/VTE/PE No Hx Hypertension Yes Hx Chest Pain/Angina No Hx Heart Attack No Hx Cardiac Surgery/Stents/Etc. No Hx Heart Failure No Hx Pacemaker/AICD No Hx Irregular Heartbeat and/or Afib No Hx Anticoagulant Therapy No Query Text:(Coumadin, Aspirin, Plavix, Xarelto, etc.) Hx Pain in Legs when Walking/Leg Cramps No Respiratory Medical History Hx COPD No Hx Emphysema No Hx Smoking Yes Smoking Status Former smoker Hx Tobacco Use in last 12 months No Hx Sleep Apnea No Do you snore loudly (louder than talking No or can be heard through closed doors)? Do you often feel tired/ fatigued/ No sleepy during daytime? Has anyone observed you stop breathing No during sleep? STOP Results Negative GI Medical History Hx Ulcer No Hx Hepatitis No Hx Cirrhosis No Hx GI Bleed No Hx Unplanned Weight Loss No Genitourinary Medical History Indwelling Catheter in Place on Arrival/ No Admission Hx Renal Disease No: OVERACTIVE BLADDER Hx Dialysis No Comments Recent bladder sx.2017 Dr Joseph Lindsey for overactive bladder. Implantation and removal of spinal stimulator at the back; lower back surgery. 2017 removed spinal stimulator. Musculoskeletal History Hx Arthritis No Hx Rheumatoid Arthritis No Endocrine Medical History Hx Diabetes Yes: ON METFORMIN FOR PREVENTIVE Hx Thyroid Disease Yes: ON MED Hematologic Medical History Hx of Blood Transfusion No Hx of Transfusion in last 3 Months No Ever experience any problems with No transfusion(s)? Hx of Preganancy in last 3 Months N/A Nurse Filling Out Transfusion & PLAUBACH Questions: Date: 11/12/18 Time: 01:54 Psycho/Social Medical History Hx Depression No Hx Anxiety No Hx Behavior Disorder No Hx Alcohol Use Yes: occasional Hx Substance Use No Other Medical History Hx Blood Disorders No Hx Anemia No Hx Cancer No Hx Drug Resistant Organism No Wound/Pressure Injury Present on Arrival No /Admission Query Text:If yes, chart assessment in Shift/Clinical Findings Central Line/PICC/VAD Present on Arrival No /Admission Antibiotics within last 7 days? No Methicillin Resistant Staphylococcus aureus Screening Active MRSA No Risk for Readmission Number of Risk Factors 3 At Risk for Readmission Patient is At Risk For Readmission Patient is eligible for Call Back Y Past Medical History (Last Updated 11/12/18 @ 01:06 by Arthur Coreas MD) Hypothyroidism (Acute) Maternal Family History: Family History (Last Updated 11/12/18 @ 01:07 by Arthur Coreas MD) Father Heart problem Mother Lung cancer - Social History Smoking Status: Former smoker Alcohol: Occasional Allergies/Adverse Reactions: Allergy/AdvReac Type Severity Reaction Status Date / Time Sulfa (Sulfonamide Allergy Unknown Verified 10/28/18 14:36 Antibiotics) sulfamethoxazole Allergy Unknown Verified 10/28/18 14:36 [From Septra] trimethoprim [From Septra] Allergy Unknown Verified 10/28/18 14:36 codeine AdvReac Nausea/Vom/ Verified 10/28/18 14:36 Diarrhea hydrocodone [From Vicodin] AdvReac Nausea/Vom/ Verified 10/28/18 14:36 Diarrhea lisinopril AdvReac cough Verified 10/28/18 14:36 Review of Systems Constitutional:: Denies: Fever, Sweats, Weight loss, Appetite change, Chills Cardiovascular:: Denies: Chest pain, Palpitations, Dyspnea on exertion, Orthopnea, PND, Shortness of breath Respiratory: Denies: Cough, Hemoptysis, Shortness of Breath, Wheezing Gastrointestinal:: Denies: Abdominal pain, Nausea, Vomiting, Diarrhea, Constipation, Hematochezia Genitourinary: Denies: Dysuria, Hematuria, 15, Flank pain Musculoskeletal:: Reports: Back pain Skin: Denies: Rash, Skin Changes, Wounds Neurological:: Denies: Headache, Dizziness, Visual changes, Tinnitus, Hearing loss Psychiatric: Denies: Anxiety, Depression, Homicidal Ideations, Suicidal Ideations Vital Signs Height 5 ft 4 in Weight: 115.3 kg Weight in Pounds 254.2 lbs Pulse Ox 95 Temperature 98.2 F Pulse Rate 110 Respiratory Rate 18 Blood Pressure 166/86 Blood Pressure Position Semi-Fowlers - Physical Exam General: Alert, Oriented x3, No apparent distress, - - back pain with movement. HEENT: Atraumatic, PERRLA, EOMI, Normocephalic Oropharynx:: Dry mucosa Neck:: Supple, Trachea midline. Negative for: JVD, bilateral Cardiac:: Regular rate, Regular rhythm, Normal S1, Normal S2. Negative for: Murmur Lungs: Clear to auscultation, Excusion symmetrical. Negative for: Rhonchi, Wheezes Abdomen:: Bowel sounds x 4, Soft, Non-tender, Non-distended. Negative for: Hepatosplenomegaly Extremities:: Negative for: Cyanosis, Edema Neurological: Neuro grossly intact Lymphatics:: Negative for: Cervical lymphadenopathy, Supraclavicular lymphadenopathy, Axillary lymphadenopathy Breast:: - - breast-no masses. Laboratory Data: Laboratory Tests 11/12/18 11/12/18 11/12/18 Range/Units 06:20 06:20 06:20 WBC 10.5 (4.4-11.0) K/mm3 RBC 4.40 (4.2-5.4) M/mm3 Hgb 13.4 (12.0-15.0) g/dl Hct 43.2 (37-47) % MCV 98.2 (81-99) fL MCH 30.5 (27.0-32.0) pg MCHC 31.0 L (32-36) g/gl RDW 13.5 (11.6-14.6) % RDW Differential 47.3 H (35.1-43.9) fl Plt Count 271 (150-450) K/mm3 MPV 10.7 (6.2-12.0) fl PT 13.9 (11.7-14.9) SECONDS INR 1.1 Sodium 141 (136-145) mmol/L Potassium 3.8 (3.5-5.1) mmol/L Chloride 109 H (98-107) mmol/L Carbon Dioxide 25.0 (21.0-32.0) mmol/L Anion Gap 7 (5-15) BUN 17 (7-18) mg/dL Creatinine 0.98 (0.55-1.02) mg/dL Estim Creat Clear Calc 42.83 ml/min Est GFR (MDRD) Af Amer 71 (>60) mL/min Est GFR (MDRD) Non-Af 59 L (>60) mL/min BUN/Creatinine Ratio 17.3 (10-20) RATIO Glucose 150 H (74-106) mg/dL Calcium 8.8 (8.5-10.1) mg/dL Lactate Dehydrogenase 440 H (84-246) U/L Total Protein 7.7 (6.4-8.2) g/dL Globulin 4.3 H (2.2-4.2) g/dL Albumin/Globulin Ratio 0.8 L (0.9-2.4) RATIO Diagnostic Data: Diagnostic Data Abdomen/Pelvis CT 11/11/18 18:50 IMPRESSION: 1. 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 2. Right pleural effusion and atelectasis. 3. Collapse of the right middle lobe. 4. Borderline cardiomegaly. 5. No other evidence for acute intra-abdominal or pelvic abnormality. 6. Degenerative changes of the lumbar spine. 7. Atherosclerotic changes of the abdominal aorta. 8. Status post cholecystectomy and appendectomy N.B. : The above information has been verbally conveyed by Adam Arguello DO to Sonia Arredondo MD, on 11/11/2018 21:22:07 (ET). Electronically Signed: Adam Arguello DO at 21:23 EST Tel [phone], Service support , Chest CT 11/11/18 21:21 IMPRESSION: Multiple destructive osseous lesions are present concerning for metastatic disease. Probable associated cord compression at the T10 level. Pre and post contrast thoracic spine MRI is recommended when and if possible. Suggestion of right hilar mass on this limited noncontrast study with associated occlusion of the right middle lobe bronchus and right middle lobe consolidation and atelectasis. Consider PET/CT evaluation. Right pleural effusion. Diffuse mediastinal adenopathy. Electronically Signed: Harjinder Egan MD at 23:49 EST Tel , Service support , Assessment and Plan Right hilar mass with collapse of RML, Right Pleural effusion and bone lesions suggestive of metastatic malignancy. Destructive vertebra-T10 with probable cord compression currently on Decadron with no neurologic deficits. Suggestions: 1. Proceed with Thoracentesis. 2. Proceed with MRI of thoracic spine. 3. If cord compression is confirmed, she may need Neurosurgical evaluation. Will follow with further suggestions based on results of cytology and MRI. Thanks. Medications: Prescriptions This Visit Medication Instructions Recorded Cholecalciferol (Vitamin D3) 2,000 unit PO DAILY 11/11/18 [D3-2000] Etodolac 400 mg PO BID 11/11/18 Losartan/Hydrochlorothiazide 1 tab PO DAILY 11/11/18 [Losartan-Hctz 50-12.5 mg Tab] Tizanidine HCl 4 mg PO Q8H PRN PRN 11/12/18 Medications Added to Medication List This Visit Category Date Time Status Atorvastatin Calcium [Lipitor] Med 11/12/18 22:00 Active 10 mg PO QHS Dexamethasone [Decadron] Med 11/12/18 06:00 Active 4 mg PO Q6 Gabapentin [Neurontin] Med 11/12/18 17:00 Active 100 mg PO BIDCM Heparin Injection (Vial) [Heparin Na] Med 11/12/18 10:00 Active 5,000 unit SC Q12 Hydrochlorothiazide [Hctz] Med 11/12/18 10:00 Active 25 mg PO DAILY Levothyroxine [Synthroid] Med 11/12/18 06:00 Active 50 mcg PO DAILY@0600 Losartan Potassium [Cozaar] Med 11/12/18 10:00 Active 50 mg PO DAILY Oxycodone [Oxyir] Med 11/12/18 11:32 Active 5 mg PO Q4H PRN PRN Potassium Chloride [K-Dur] Med 11/12/18 08:00 Active 10 meq PO DAILYCM Senna/Docusate Sodium [Senokot-S, Anel-Colace] Med 11/12/18 10:00 Active 2 tablet PO BID Primary Care Provider: Harjinder Borjas MD Referring Provider: - Problem List (1) Disseminated malignancy Status: Acute (2) Pleural effusion, right Status: Acute (3) Mass of middle lobe of right lung Status: Acute Code Visit Office Visits / Consults: 22006 IP Consult L5
--- NOTE | 2018-11-12 12:54 | CON.PCM_ITS ---
Consult Referring Physician: Dr. Alonso Hadley Consult Results: Destructive bone lesion, R partially collapsed lung and effus ion. Subjective Date of Service:: 11/12/18 Chief Complaint: Asked to see Pt with chronic back and destructive lesion on CT. History of Present Illness: 73-year-old woman presented with chronic back pain. CT of chest, abdomen and pelvis on 11/11/2018 showed right middle lobe collapse with effusion, mediasti nal adenopathy, multiple destructive bony lesions concerning for metastatic disease. There is a destructive lesion at T10 with probable cord compression. Past Medical History: Chronic Problems (Last Updated 11/12/18 @ 01:06 by Arthur Coreas MD) HTN (hypertension) (Chronic) Diabetes (Chronic) Hyperlipidemia associated with type 2 diabetes mellitus (Chronic) Morbid (severe) obesity due to excess calories (Chronic) Hypothyroidism (Chronic) Past Medical/Surgical History: Past Medical History - Most Recent Inpatient Visit Past Medical History Start: 11/12/18 01:11 Text: Status: Complete Freq: ONCE Protocol: Document 11/12/18 01:11 PAL (Rec: 11/12/18 01:55 [facility] [id number]) BMI Required to complete PMH What is Patient's BMI 43.3 Past Medical History Unable History Recalled Yes Query Text:Pt Unable/Family Not Present Neurologic Medical History Hx Stroke/TIA No Hx Dementia/Alzheimer's No Hx Parkinson's Disease No Hx Seizures No Hx Multiple Sclerosis No Hx Migraines No Cardiac Medical History VTE Present on Admission No Hx of Deep Vein Thrombosis/VTE/PE No Hx Hypertension Yes Hx Chest Pain/Angina No Hx Heart Attack No Hx Cardiac Surgery/Stents/Etc. No Hx Heart Failure No Hx Pacemaker/AICD No Hx Irregular Heartbeat and/or Afib No Hx Anticoagulant Therapy No Query Text:(Coumadin, Aspirin, Plavix, Xarelto, etc.) Hx Pain in Legs when Walking/Leg Cramps No Respiratory Medical History Hx COPD No Hx Emphysema No Hx Smoking Yes Smoking Status Former smoker Hx Tobacco Use in last 12 months No Hx Sleep Apnea No Do you snore loudly (louder than talking No or can be heard through closed doors)? Do you often feel tired/ fatigued/ No sleepy during daytime? Has anyone observed you stop breathing No during sleep? STOP Results Negative GI Medical History Hx Ulcer No Hx Hepatitis No Hx Cirrhosis No Hx GI Bleed No Hx Unplanned Weight Loss No Genitourinary Medical History Indwelling Catheter in Place on Arrival/ No Admission Hx Renal Disease No: OVERACTIVE BLADDER Hx Dialysis No Comments Recent bladder sx.2017 Dr Joseph Lindsey for overactive bladder. Implantation and removal of spinal stimulator at the back; lower back surgery. 2017 removed spinal stimulator. Musculoskeletal History Hx Arthritis No Hx Rheumatoid Arthritis No Endocrine Medical History Hx Diabetes Yes: ON METFORMIN FOR PREVENTIVE Hx Thyroid Disease Yes: ON MED Hematologic Medical History Hx of Blood Transfusion No Hx of Transfusion in last 3 Months No Ever experience any problems with No transfusion(s)? Hx of Preganancy in last 3 Months N/A Nurse Filling Out Transfusion & PLAUBACH Questions: Date: 11/12/18 Time: 01:54 Psycho/Social Medical History Hx Depression No Hx Anxiety No Hx Behavior Disorder No Hx Alcohol Use Yes: occasional Hx Substance Use No Other Medical History Hx Blood Disorders No Hx Anemia No Hx Cancer No Hx Drug Resistant Organism No Wound/Pressure Injury Present on Arrival No /Admission Query Text:If yes, chart assessment in Shift/Clinical Findings Central Line/PICC/VAD Present on Arrival No /Admission Antibiotics within last 7 days? No Methicillin Resistant Staphylococcus aureus Screening Active MRSA No Risk for Readmission Number of Risk Factors 3 At Risk for Readmission Patient is At Risk For Readmission Patient is eligible for Call Back Y Past Medical History (Last Updated 11/12/18 @ 01:06 by Arthur Coreas MD) Hypothyroidism (Acute) Maternal Family History: Family History (Last Updated 11/12/18 @ 01:07 by Arthur Coreas MD) Father Heart problem Mother Lung cancer - Social History Smoking Status: Former smoker Alcohol: Occasional Allergies/Adverse Reactions: Allergy/AdvReac Type Severity Reaction Status Date / Time Sulfa (Sulfonamide Allergy Unknown Verified 10/28/18 14:36 Antibiotics) sulfamethoxazole Allergy Unknown Verified 10/28/18 14:36 [From Septra] trimethoprim [From Septra] Allergy Unknown Verified 10/28/18 14:36 codeine AdvReac Nausea/Vom/ Verified 10/28/18 14:36 Diarrhea hydrocodone [From Vicodin] AdvReac Nausea/Vom/ Verified 10/28/18 14:36 Diarrhea lisinopril AdvReac cough Verified 10/28/18 14:36 Review of Systems Constitutional:: Denies: Fever, Sweats, Weight loss, Appetite change, Chills Cardiovascular:: Denies: Chest pain, Palpitations, Dyspnea on exertion, Orthopnea, PND, Shortness of breath Respiratory: Denies: Cough, Hemoptysis, Shortness of Breath, Wheezing Gastrointestinal:: Denies: Abdominal pain, Nausea, Vomiting, Diarrhea, Constipation, Hematochezia Genitourinary: Denies: Dysuria, Hematuria, 15, Flank pain Musculoskeletal:: Reports: Back pain Skin: Denies: Rash, Skin Changes, Wounds Neurological:: Denies: Headache, Dizziness, Visual changes, Tinnitus, Hearing loss Psychiatric: Denies: Anxiety, Depression, Homicidal Ideations, Suicidal Ideations Vital Signs Height 5 ft 4 in Weight: 115.3 kg Weight in Pounds 254.2 lbs Pulse Ox 95 Temperature 98.2 F Pulse Rate 110 Respiratory Rate 18 Blood Pressure 166/86 Blood Pressure Position Semi-Fowlers - Physical Exam General: Alert, Oriented x3, No apparent distress, - - back pain with movement. HEENT: Atraumatic, PERRLA, EOMI, Normocephalic Oropharynx:: Dry mucosa Neck:: Supple, Trachea midline. Negative for: JVD, bilateral Cardiac:: Regular rate, Regular rhythm, Normal S1, Normal S2. Negative for: Murmur Lungs: Clear to auscultation, Excusion symmetrical. Negative for: Rhonchi, Wheezes Abdomen:: Bowel sounds x 4, Soft, Non-tender, Non-distended. Negative for: Hepatosplenomegaly Extremities:: Negative for: Cyanosis, Edema Neurological: Neuro grossly intact Lymphatics:: Negative for: Cervical lymphadenopathy, Supraclavicular lymphadenopathy, Axillary lymphadenopathy Breast:: - - breast-no masses. Laboratory Data: Laboratory Tests 11/12/18 11/12/18 11/12/18 Range/Units 06:20 06:20 06:20 WBC 10.5 (4.4-11.0) K/mm3 RBC 4.40 (4.2-5.4) M/mm3 Hgb 13.4 (12.0-15.0) g/dl Hct 43.2 (37-47) % MCV 98.2 (81-99) fL MCH 30.5 (27.0-32.0) pg MCHC 31.0 L (32-36) g/gl RDW 13.5 (11.6-14.6) % RDW Differential 47.3 H (35.1-43.9) fl Plt Count 271 (150-450) K/mm3 MPV 10.7 (6.2-12.0) fl PT 13.9 (11.7-14.9) SECONDS INR 1.1 Sodium 141 (136-145) mmol/L Potassium 3.8 (3.5-5.1) mmol/L Chloride 109 H (98-107) mmol/L Carbon Dioxide 25.0 (21.0-32.0) mmol/L Anion Gap 7 (5-15) BUN 17 (7-18) mg/dL Creatinine 0.98 (0.55-1.02) mg/dL Estim Creat Clear Calc 42.83 ml/min Est GFR (MDRD) Af Amer 71 (>60) mL/min Est GFR (MDRD) Non-Af 59 L (>60) mL/min BUN/Creatinine Ratio 17.3 (10-20) RATIO Glucose 150 H (74-106) mg/dL Calcium 8.8 (8.5-10.1) mg/dL Lactate Dehydrogenase 440 H (84-246) U/L Total Protein 7.7 (6.4-8.2) g/dL Globulin 4.3 H (2.2-4.2) g/dL Albumin/Globulin Ratio 0.8 L (0.9-2.4) RATIO Diagnostic Data: Diagnostic Data Abdomen/Pelvis CT 11/11/18 18:50 IMPRESSION: 1. 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 2. Right pleural effusion and atelectasis. 3. Collapse of the right middle lobe. 4. Borderline cardiomegaly. 5. No other evidence for acute intra-abdominal or pelvic abnormality. 6. Degenerative changes of the lumbar spine. 7. Atherosclerotic changes of the abdominal aorta. 8. Status post cholecystectomy and appendectomy N.B. : The above information has been verbally conveyed by Adam Arguello DO to Sonia Arredondo MD, on 11/11/2018 21:22:07 (ET). Electronically Signed: Adam Arguello DO at 21:23 EST Tel [phone], Service support , Chest CT 11/11/18 21:21 IMPRESSION: Multiple destructive osseous lesions are present concerning for metastatic disease. Probable associated cord compression at the T10 level. Pre and post contrast thoracic spine MRI is recommended when and if possible. Suggestion of right hilar mass on this limited noncontrast study with associated occlusion of the right middle lobe bronchus and right middle lobe consolidation and atelectasis. Consider PET/CT evaluation. Right pleural effusion. Diffuse mediastinal adenopathy. Electronically Signed: Harjinder Egan MD at 23:49 EST Tel , Service support , Assessment and Plan Right hilar mass with collapse of RML, Right Pleural effusion and bone lesions suggestive of metastatic malignancy. Destructive vertebra-T10 with probable cord compression currently on Decadron with no neurologic deficits. Suggestions: 1. Proceed with Thoracentesis. 2. Proceed with MRI of thoracic spine. 3. If cord compression is confirmed, she may need Neurosurgical evaluation. Will follow with further suggestions based on results of cytology and MRI. Thanks. Medications: Prescriptions This Visit Medication Instructions Recorded Cholecalciferol (Vitamin D3) 2,000 unit PO DAILY 11/11/18 [D3-2000] Etodolac 400 mg PO BID 11/11/18 Losartan/Hydrochlorothiazide 1 tab PO DAILY 11/11/18 [Losartan-Hctz 50-12.5 mg Tab] Tizanidine HCl 4 mg PO Q8H PRN PRN 11/12/18 Medications Added to Medication List This Visit Category Date Time Status Atorvastatin Calcium [Lipitor] Med 11/12/18 22:00 Active 10 mg PO QHS Dexamethasone [Decadron] Med 11/12/18 06:00 Active 4 mg PO Q6 Gabapentin [Neurontin] Med 11/12/18 17:00 Active 100 mg PO BIDCM Heparin Injection (Vial) [Heparin Na] Med 11/12/18 10:00 Active 5,000 unit SC Q12 Hydrochlorothiazide [Hctz] Med 11/12/18 10:00 Active 25 mg PO DAILY Levothyroxine [Synthroid] Med 11/12/18 06:00 Active 50 mcg PO DAILY@0600 Losartan Potassium [Cozaar] Med 11/12/18 10:00 Active 50 mg PO DAILY Oxycodone [Oxyir] Med 11/12/18 11:32 Active 5 mg PO Q4H PRN PRN Potassium Chloride [K-Dur] Med 11/12/18 08:00 Active 10 meq PO DAILYCM Senna/Docusate Sodium [Senokot-S, Anel-Colace] Med 11/12/18 10:00 Active 2 tablet PO BID Primary Care Provider: Harjinder Borjas MD Referring Provider: - Problem List (1) Disseminated malignancy Status: Acute (2) Pleural effusion, right Status: Acute (3) Mass of middle lobe of right lung Status: Acute Code Visit Office Visits / Consults: [id number] IP Consult L5
[2018-11-12 13:46] LABS: Protein, Body Fluid 3.5 g/dL (Not Establ.)
--- NOTE | 2018-11-12 13:50 | PCM.PROGNOTE ---
<Michael Cason - Last Filed: 11/12/18 13:50> Patient Problems: Active and Suspected Problems (Last Updated 11/12/18 @ 01:06 by Arthur Coreas MD) Metastatic cancer (Suspected) Back pain of thoracolumbar region (Acute) Disseminated malignancy (Acute) Pleural effusion, right (Acute) Mass of middle lobe of right lung (Acute) Subjective: Patient resting comfortably in bed. No pain if she does not move. She denies new numbness/tingling/saddle parasthesias. Any movement triggers severe waist pain. No radiation into the back. No report of incontinence. No nausea. No CASTA[place]EDA. No SOB. She has been able to stand and walk, with pain. - Physical Exam General: Alert, Oriented x3, Cooperative HEENT: Atraumatic, PERRLA, EOMI, Normocephalic Neck: Supple, No JVD, Negative Carotid Bruits Lungs: Clear to auscultation, Normal air movement Cardiovascular: Regular rate, No murmurs Abdomen: Bowel Sounds Present, Soft, Non Tender Extremities: No edema, Capillary Refill Less than 3 Seconds Skin: No rashes, No breakdown Musculoskeletal: No Tenderness to Palpation of Joints or Extremities Neurological: Cranial nerves II-XII grossly intact Psych/Mental Status: Normal Affect, Appropriate, Alert and oriented to time, place, person, mood and affect Vital Signs Temp Pulse Resp BP Pulse Ox 98.2 F 108 H 18 172/63 H 95 11/12/18 10:30 11/12/18 12:40 11/12/18 12:40 11/12/18 12:40 11/12/18 10:30 Oxygen Flow Rate (L/min) 2 Oxygen Delivery Method [3] Room Air Oxygen Delivery Method [2] Room Air Oxygen Delivery Method [1 ( Room Air Initial Baseline)] Oxygen Delivery Method Nasal Cannula Weight: 254 lb 3.088 oz Body Mass Index (BMI) 43.6 Intake and Output for Last 24 Hours 11/10/18 11/11/18 11/12/18 23:59 23:59 23:59 Intake Total 50 / 50 Balance 50 / 50 Laboratory Tests Past 24 Hrs 11/12/18 11/12/18 11/12/18 06:20 06:20 06:20 WBC 10.5 RBC 4.40 Hgb 13.4 Hct 43.2 MCV 98.2 MCH 30.5 MCHC 31.0 L RDW 13.5 RDW Differential 47.3 H Plt Count 271 MPV 10.7 PT 13.9 INR 1.1 Sodium 141 Potassium 3.8 Chloride 109 H Carbon Dioxide 25.0 Anion Gap 7 BUN 17 Creatinine 0.98 Estim Creat Clear Calc 42.83 Est GFR (MDRD) Af Amer 71 Est GFR (MDRD) Non-Af 59 L BUN/Creatinine Ratio 17.3 Glucose 150 H Calcium 8.8 Lactate Dehydrogenase 440 H Total Protein 7.7 Globulin 4.3 H Albumin/Globulin Ratio 0.8 L Fluid Glucose Fluid Total Protein Fluid LDH Miscellaneous Test 11/12/18 11/12/18 11/12/18 13:00 13:00 13:00 WBC RBC Hgb Hct MCV MCH MCHC RDW RDW Differential Plt Count MPV PT INR Sodium Potassium Chloride Carbon Dioxide Anion Gap BUN Creatinine Estim Creat Clear Calc Est GFR (MDRD) Af Amer Est GFR (MDRD) Non-Af BUN/Creatinine Ratio Glucose Calcium Lactate Dehydrogenase Total Protein Globulin Albumin/Globulin Ratio Fluid Glucose Pending Fluid Total Protein Fluid LDH Pending Miscellaneous Test Pending 11/12/18 13:00 WBC RBC Hgb Hct MCV MCH MCHC RDW RDW Differential Plt Count MPV PT INR Sodium Potassium Chloride Carbon Dioxide Anion Gap BUN Creatinine Estim Creat Clear Calc Est GFR (MDRD) Af Amer Est GFR (MDRD) Non-Af BUN/Creatinine Ratio Glucose Calcium Lactate Dehydrogenase Total Protein Globulin Albumin/Globulin Ratio Fluid Glucose Fluid Total Protein 3.5 Fluid LDH Miscellaneous Test Medical Necessity - Tobacco Use Smoking Status: Former smoker Assessment/Plan All Active Problems (Last Updated 11/12/18 @ 01:06 by Arthur Coreas MD) Back pain of thoracolumbar region (Acute) Disseminated malignancy (Acute) Pleural effusion, right (Acute) Mass of middle lobe of right lung (Acute) 1. Presumed metastatic cancer - lung - thora today. Oncology and Pulm following. Pt may need further Bronch per Dr. Giles. 2. T10 compression on CT - follow up MRI pending. The CT findings are not proportional to the lack of neurologic symptoms. Added neurontin. 3. DMt2 - SSI. Hold metformin. 4. Hypothyroidism - synthroid 5. HLD - lipitor DVT ppx: heparin DC planning: Likely needs SNF placement. If neurologic changes may need transfer to tertiary facility. This patient was seen by Michael Cason PA-C under the supervision of Dr. Hadley <Cam Hadley - Last Filed: 11/12/18 15:30> Subjective: Patient still has back pain. Denies any paresthesias nor any bowel or bladder continence. States that her back pain is been going on some time but it just progressively gotten worse. - Physical Exam General: Alert, Cooperative HEENT: Atraumatic, Normocephalic Oral: Moist Mucosa, No Gingival or Mucosal Lesions/ Ulcerations Neck: No Nodes, Thyroid Normal Size and Texture Lungs: Clear to auscultation, Normal air movement, No rhonchi, No wheeze Cardiovascular: Regular rate, Regular Rhythm, Normal S1, Normal S2, No murmurs Abdomen: Bowel Sounds Present, Soft, Non Tender, Non-Distended Extremities: No edema, No Calf Tenderness Skin: No rashes, No breakdown Neurological: - - Strength 5 out of 5 in the lower extremities. DTRs are 1 out of 4 on the right and 04 on the left. Sensation is intact lower extremities but slightly diminished on the medial left calf. Psych/Mental Status: Normal Affect, Appropriate Vital Signs Temp Pulse Resp BP Pulse Ox 36.8 C 108 H 18 172/63 H 95 11/12/18 10:30 11/12/18 12:40 11/12/18 12:40 11/12/18 12:40 11/12/18 10:30 Oxygen Flow Rate (L/min) 2 Oxygen Delivery Method [3] Room Air Oxygen Delivery Method [2] Room Air Oxygen Delivery Method [1 ( Room Air Initial Baseline)] Oxygen Delivery Method Room Air Weight: 115.3 kg Body Mass Index (BMI) 43.6 Intake and Output for Last 24 Hours 11/10/18 11/11/18 11/12/18 23:59 23:59 23:59 Intake Total 290 / 290 Output Total 140 / 140 Balance 150 / 150 Laboratory Tests Past 24 Hrs 11/12/18 11/12/18 11/12/18 06:20 06:20 06:20 WBC 10.5 RBC 4.40 Hgb 13.4 Hct 43.2 MCV 98.2 MCH 30.5 MCHC 31.0 L RDW 13.5 RDW Differential 47.3 H Plt Count 271 MPV 10.7 PT 13.9 INR 1.1 Sodium 141 Potassium 3.8 Chloride 109 H Carbon Dioxide 25.0 Anion Gap 7 BUN 17 Creatinine 0.98 Estim Creat Clear Calc 42.83 Est GFR (MDRD) Af Amer 71 Est GFR (MDRD) Non-Af 59 L BUN/Creatinine Ratio 17.3 Glucose 150 H Calcium 8.8 Lactate Dehydrogenase 440 H Total Protein 7.7 Globulin 4.3 H Albumin/Globulin Ratio 0.8 L Fluid Source Fluid Color Fluid Appearance Fluid WBC Fluid RBC Fluid Tot Cell Count Fl Pathologist Comment Fluid Glucose Fluid Total Protein Fluid LDH Fluid Comment 2 Miscellaneous Test 11/12/18 11/12/18 11/12/18 13:00 13:00 13:00 WBC RBC Hgb Hct MCV MCH MCHC RDW RDW Differential Plt Count MPV PT INR Sodium Potassium Chloride Carbon Dioxide Anion Gap BUN Creatinine Estim Creat Clear Calc Est GFR (MDRD) Af Amer Est GFR (MDRD) Non-Af BUN/Creatinine Ratio Glucose Calcium Lactate Dehydrogenase Total Protein Globulin Albumin/Globulin Ratio Fluid Source Fluid Color Fluid Appearance Fluid WBC Fluid RBC Fluid Tot Cell Count Fl Pathologist Comment Fluid Glucose Pending Fluid Total Protein Fluid LDH 500 Fluid Comment 2 Miscellaneous Test Pending 11/12/18 11/12/18 13:00 13:00 WBC RBC Hgb Hct MCV MCH MCHC RDW RDW Differential Plt Count MPV PT INR Sodium Potassium Chloride Carbon Dioxide Anion Gap BUN Creatinine Estim Creat Clear Calc Est GFR (MDRD) Af Amer Est GFR (MDRD) Non-Af BUN/Creatinine Ratio Glucose Calcium Lactate Dehydrogenase Total Protein Globulin Albumin/Globulin Ratio Fluid Source Pending Fluid Color Pending Fluid Appearance Pending Fluid WBC Pending Fluid RBC Pending Fluid Tot Cell Count Pending Fl Pathologist Comment Pending Fluid Glucose Fluid Total Protein 3.5 Fluid LDH Fluid Comment 2 Pending Miscellaneous Test Assessment/Plan Patient seen and examined independently. Data reviewed. I agree with the above note by the physician operator/assistant foreman. 1. Presumed metastatic cancer Primary concern would be the lung would be the primary as there is a right hilar mass. Thoracentesis done today and appears to be exudative. Cytology currently pending. Patient will follow up with oncology and cytology from the pleural fluid. Patient aware that it is possible that no malignant cells may be identified and if so that she would require another biopsy either of the lesion in her spine or the hilar mass. 2. Right-sided pleural effusion Presumed malignant effusion Exudative 3. T10 metastatic lesion Patient has no radicular signs. MRI of the lumbar spine has been ordered Dexamethasone has been ordered Is on the results of the MRI may need to refer to tertiary facility for neurosurgery/spine surgery evaluation. She does have some subtle neurologic findings in the lower extremities but part this may be chronic due to her history of lumbar spine surgery. Case was discussed with her family at bedside, with her permission. Code Visit Inpatient E&M: 16043 Subs Hosp L3
[2018-11-12 13:52] LABS: LDH,Body Fluid 500 Units/l (Not Establ.)
[2018-11-12 14:48] LABS: Body Fluid Mononuclear WBC # 15.707 10^3/uL; Body Fluid Mononuclear WBC % 99.5 %; Body Fluid Polynuclear WBC # 0.079 10^3/uL; Body Fluid Polynuclear WBC % 0.5 %
[2018-11-12] MEDS: oxyCODONE 5 MG Tablet PO (14:59)
--- NOTE | 2018-11-12 15:08 | CASEMGMT ---
Pt states she has both a HCPOA and living will. Documents are not in [facility] medical record. Pt states Dr. Gonzalez has a copy. Phone call to GARRY Jordan at [facility] and she confirms pt has a HCPOA but no LW on file. HCPOA provided to this SW and placed on pt chart. Pt notified that LW needs brought in. SHARON Prsaad
[2018-11-12 16:31] LABS: ALB/GLOB Ratio 0.8 RATIO (0.9-2.4); Globulin 4.3 g/dL (2.2-4.2); LDH 437 U/L (84-246); Protein, Total 7.6 g/dL (6.4-8.2)
[2018-11-12 16:41] LABS: Bedside Glucose 192 mg/dL (70-110)
[2018-11-12 17:01] LABS: Glucose, Body Fluid 189 mg/dL (40-70)
[2018-11-12 17:22] LABS: Auto B Fluid Analyzer BKGD Ct COUNTS W/IN LIMITS (W/IN LIMITS); Source- Body Fluid THORACENTESIS
[2018-11-12 17:23] LABS: Appearance/Body Fluid CLOUDY; Color/Body Fluid PINK; Neutrophil (Segs) 1 %
[2018-11-12 17:24] LABS: Body Fluid QC Type(s) BF1Q
--- NOTE | 2018-11-12 17:35 | DS.PCM_ITS ---
<Michael Cason - Last Filed: 11/12/18 17:24> Discharge Date and Diagnosis - Problem List Patient Problems: Active and Suspected Problems (Last Updated 11/12/18 @ 01:06 by Arthur Coreas MD) Metastatic cancer (Suspected) Back pain of thoracolumbar region (Acute) Disseminated malignancy (Acute) Pleural effusion, right (Acute) Mass of middle lobe of right lung (Acute) Date of Admission: 11/11/18 Date of Discharge: 11/12/18 - Primary Discharge Diagnosis Active and Suspected Problems (Last Updated 11/12/18 @ 01:06 by Arthur Coreas MD) Metastatic cancer (Suspected), suspect lung primary source Exudative pleural effusion Spinal mets, 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 Back pain of thoracolumbar region (Acute) Pleural effusion, right (Acute) Intractable back pain 2/2 t10 lesion DMt2 HTN HLD GERD Hypothyroidism - Secondary Discharge Diagnosis Chronic Problems (Last Updated 11/12/18 @ 01:06 by Arthur Coreas MD) HTN (hypertension) (Chronic) Diabetes (Chronic) Hyperlipidemia associated with type 2 diabetes mellitus (Chronic) Morbid (severe) obesity due to excess calories (Chronic) Hypothyroidism (Chronic) Hospital Course and Treatment Imaging Results: 11/12/18 11:33 MRI Thoracic [Spine Thoracic W/WO Contrast] [MRI] Urgent 11/13/18 05:55 CXR [Chest PA and Lateral] [RAD] AM (NON MEDS) Consults: Pulm - [facility] Operations: None Procedures: 2-D Echocardiogram Summary of Care Provided: Hospital Course: The patient is a 73 year old F with a pmhx of HTN, DMt2 with morbid obesity, hypothyroidism, HLD, former smoker, who presented to the ER with intractable back pain/ waist pain, that was thought to be related to a bladder stimulator that was recently removed. A CT of the chest was obtained and showed multiple osteous lesions, probably cord compression at T10 and lung masses with adenopathy, and pleural effusion. She was admitted to the PCU for suspected metastatic cancer and intractable pain. Pulmonary medicine and oncology were consulted. Thoracentesis was obtained and was exudative - pathology is pending. As this was newly found and path is pending we do not have a confirmed cytology at this point. MRI of the T spine was obtained and showed the lesion was not compressing the spine but was however in close proximity to the cord, warranting evaluation by neuro surgery. Oncology agreed that she needed seen by neuro surgery and transfer to a tertiary facility. She was ambulatory however with severe pain. She did not have acute numbness or tingling, though she may have had a slight decrease in DTR reflexes. Her symptoms were not profound, and she has underlying chronic lower back pain from previous spinal surgery. She was accepted at under the care of Dr. Mario Rush/Onc. She was transferred in stable condition when a bed became available. This patient was seen by Michael Cason PA-C under the supervision of Doctor Leonie. [] Patient Problems: Active and Suspected Problems (Last Updated 11/12/18 @ 01:06 by Arthur Coreas MD) Metastatic cancer (Suspected) Back pain of thoracolumbar region (Acute) Disseminated malignancy (Acute) Pleural effusion, right (Acute) Mass of middle lobe of right lung (Acute) - Physical Exam General: Alert, Oriented x3, Cooperative HEENT: Atraumatic, PERRLA, EOMI, Normocephalic Neck: Supple, No JVD, Negative Carotid Bruits Lungs: Clear to auscultation, Normal air movement Cardiovascular: Regular rate, No murmurs Abdomen: Bowel Sounds Present, Soft, Non Tender Extremities: No edema, Capillary Refill Less than 3 Seconds Skin: No rashes, No breakdown Musculoskeletal: No Tenderness to Palpation of Joints or Extremities Neurological: Cranial nerves II-XII grossly intact Psych/Mental Status: Normal Affect, Appropriate, Alert and oriented to time, place, person, mood and affect Vital Signs Temp Pulse Resp BP Pulse Ox 98.1 F 106 H 18 159/74 H 94 11/12/18 16:15 11/12/18 16:15 11/12/18 16:15 11/12/18 16:15 11/12/18 16:15 Oxygen Flow Rate (L/min) 2 Oxygen Delivery Method [3] Room Air Oxygen Delivery Method [2] Room Air Oxygen Delivery Method [1 ( Room Air Initial Baseline)] Oxygen Delivery Method Nasal Cannula Weight: 254 lb 3.088 oz Body Mass Index (BMI) 43.6 Intake and Output for Last 24 Hours 11/10/18 11/11/18 11/12/18 23:59 23:59 23:59 Intake Total 290 / 290 Output Total 140 / 140 Balance 150 / 150 Microbiology Past 72 Hours 11/12/18 13:00 Gram Stain - Final Fluid - Thoracentesis Fluid Laboratory Tests Past 24 Hrs 11/12/18 11/12/18 11/12/18 06:20 06:20 06:20 WBC 10.5 RBC 4.40 Hgb 13.4 Hct 43.2 MCV 98.2 MCH 30.5 MCHC 31.0 L RDW 13.5 RDW Differential 47.3 H Plt Count 271 MPV 10.7 PT 13.9 INR 1.1 Sodium 141 Potassium 3.8 Chloride 109 H Carbon Dioxide 25.0 Anion Gap 7 BUN 17 Creatinine 0.98 Estim Creat Clear Calc 42.83 Est GFR (MDRD) Af Amer 71 Est GFR (MDRD) Non-Af 59 L BUN/Creatinine Ratio 17.3 Glucose 150 H Calcium 8.8 Lactate Dehydrogenase 440 H Total Protein 7.7 Globulin 4.3 H Albumin/Globulin Ratio 0.8 L Fluid Source Fluid Color Fluid Appearance Fluid WBC Fluid RBC Fluid Tot Cell Count Fld Polynuclear WBCs # Fld Polynuclear WBCs % Fluid Mononuclear WBCs Fld Mononuclear WBCs % Fluid Neutrophils Fluid Lymphocytes Fluid Monocytes Fl Pathologist Comment Fluid Glucose Fluid Total Protein Fluid LDH Fluid Comment 2 Miscellaneous Test 11/12/18 11/12/18 11/12/18 13:00 13:00 13:00 WBC RBC Hgb Hct MCV MCH MCHC RDW RDW Differential Plt Count MPV PT INR Sodium Potassium Chloride Carbon Dioxide Anion Gap BUN Creatinine Estim Creat Clear Calc Est GFR (MDRD) Af Amer Est GFR (MDRD) Non-Af BUN/Creatinine Ratio Glucose Calcium Lactate Dehydrogenase Total Protein Globulin Albumin/Globulin Ratio Fluid Source Fluid Color Fluid Appearance Fluid WBC Fluid RBC Fluid Tot Cell Count Fld Polynuclear WBCs # Fld Polynuclear WBCs % Fluid Mononuclear WBCs Fld Mononuclear WBCs % Fluid Neutrophils Fluid Lymphocytes Fluid Monocytes Fl Pathologist Comment Fluid Glucose 189 H Fluid Total Protein Fluid LDH 500 Fluid Comment 2 Miscellaneous Test Pending 11/12/18 11/12/18 11/12/18 13:00 13:00 15:55 WBC RBC Hgb Hct MCV MCH MCHC RDW RDW Differential Plt Count MPV PT INR Sodium Potassium Chloride Carbon Dioxide Anion Gap BUN Creatinine Estim Creat Clear Calc Est GFR (MDRD) Af Amer Est GFR (MDRD) Non-Af BUN/Creatinine Ratio Glucose Calcium Lactate Dehydrogenase 437 H Total Protein 7.6 Globulin 4.3 H Albumin/Globulin Ratio 0.8 L Fluid Source THORACENTESIS Fluid Color PINK Fluid Appearance CLOUDY Fluid WBC 16.154 Fluid RBC 0.52046 Fluid Tot Cell Count 16.138 H Fld Polynuclear WBCs # 0.079 Fld Polynuclear WBCs % 0.5 Fluid Mononuclear WBCs 15.707 Fld Mononuclear WBCs % 99.5 Fluid Neutrophils 1 Fluid Lymphocytes 12 Fluid Monocytes 87 Fl Pathologist Comment May follow Fluid Glucose Fluid Total Protein 3.5 Fluid LDH Fluid Comment 2 SEE COMMENT Miscellaneous Test POC Glucose 11/12/18 16:26 POC Glucose 192 H Discharge Diet: - - As directed by receiving facility Discharge Activity: - - He has directed by receiving facility Home Medications: Medications to take at Discharge Albuterol Aerosols [Ventolin Aerosols] 2.5 mg INHALATION Q4H PRN PRN 08/11/18 Hydrochlorothiazide 12.5 mg PO DAILY 08/11/18 Levothyroxine [Synthroid] 50 mcg PO DAILY 08/11/18 Metformin HCl [Metformin HCl ER] 500 mg PO DAILY 08/11/18 Multivit with Calcium,Iron,Min [Multiple Vitamins For Women] 1 each PO DAILY 08/11/18 Polyethylene Glycol 3350 [Miralax] 17 gm PO DAILY 08/11/18 Potassium Chloride [Klor-Con M10] 10 meq PO DAILY 08/11/18 Simvastatin [Zocor] 20 mg PO QHS 08/11/18 Ibuprofen [Motrin] 600 mg PO Q6H PRN PRN #14 tablet 10/29/18 Cholecalciferol (Vitamin D3) [D3-2000] 2,000 unit PO DAILY 11/11/18 Etodolac 400 mg PO BID 11/11/18 Losartan/Hydrochlorothiazide [Losartan-Hctz 50-12.5 mg Tab] 1 tab PO DAILY 11/11/18 Tizanidine HCl 4 mg PO Q8H PRN PRN 11/12/18 Primary Care Physician: Harjinder Borjas MD [Primary Care Provider] - Please follow up with your Primary Care Physician in: As directed Patient Instructions: Discharge Instructions for Thoracentesis Disposition: Acute care Hospital Minutes spent on discharge:: 40 Patient Condition:: Stable Medical Necessity - Tobacco Use Smoking Status: Former smoker Meaningful Use Info Meaningful Use Diagnoses (Choose all that apply): None applicable <Cam Hadley - Last Filed: 11/12/18 17:51> Discharge Date and Diagnosis - Primary Discharge Diagnosis Active and Suspected Problems (Last Updated 11/12/18 @ 01:06 by Arthur Coreas MD) Metastatic cancer (Suspected) Back pain of thoracolumbar region (Acute) Disseminated malignancy (Acute) Pleural effusion, right (Acute) Mass of middle lobe of right lung (Acute) - Secondary Discharge Diagnosis Chronic Problems (Last Updated 11/12/18 @ 01:06 by Arthur Coreas MD) HTN (hypertension) (Chronic) Diabetes (Chronic) Hyperlipidemia associated with type 2 diabetes mellitus (Chronic) Morbid (severe) obesity due to excess calories (Chronic) Hypothyroidism (Chronic) Hospital Course and Treatment Imaging Results: 11/12/18 11:33 MRI Thoracic [Spine Thoracic W/WO Contrast] [MRI] Urgent 11/13/18 05:55 CXR [Chest PA and Lateral] [RAD] AM (NON MEDS) Operations: None Procedures: 2-D Echocardiogram Summary of Care Provided: Patient seen and examined independently. Data reviewed. I agree with the above note by the physician customer support assistant. The patient is a 73 year old F presents with back pain. Patient underwent imaging that showed a destructive lesion at T10 as well as a right hilar mass, adenopathy and pleural effusion. Patient had no significant neurologic deficits that she had noted. Patient denied any bowel or bladder incontinence. Patient did undergo an MRI that showed a destructive lesion involving T10, the pedicles and adjacent but not contacting the spinal cord. Given the proximity of that, patient had been initially started on the dexamethasone but it was felt most appropriate for the patient to be evaluated facility with neuro surgery involvement. Patient requested [facility]. I initially spoke with neurosurgery but without any acute surgical needs the felt best to be under another service. So I spoke with Dr. Martin, of oncology, and discussed the case. Patient was accepted to the oncology service at [facility] where she will be evaluated by neurosurgery. Patient did have a thoracentesis that was exudative. Cytology was sent with results still pending at this time. [] - Physical Exam Vital Signs Temp Pulse Resp BP Pulse Ox 36.7 C 106 H 18 159/74 H 94 11/12/18 16:15 11/12/18 16:15 11/12/18 16:15 11/12/18 16:15 11/12/18 16:15 Oxygen Flow Rate (L/min) 2 Oxygen Delivery Method [3] Room Air Oxygen Delivery Method [2] Room Air Oxygen Delivery Method [1 ( Room Air Initial Baseline)] Oxygen Delivery Method Nasal Cannula Weight: 115.3 kg Body Mass Index (BMI) 43.6 Intake and Output for Last 24 Hours 11/10/18 11/11/18 11/12/18 23:59 23:59 23:59 Intake Total 290 / 290 Output Total 140 / 140 Balance 150 / 150 Microbiology Past 72 Hours 11/12/18 13:00 Gram Stain - Final Fluid - Thoracentesis Fluid Laboratory Tests Past 24 Hrs 11/12/18 11/12/18 11/12/18 06:20 06:20 06:20 WBC 10.5 RBC 4.40 Hgb 13.4 Hct 43.2 MCV 98.2 MCH 30.5 MCHC 31.0 L RDW 13.5 RDW Differential 47.3 H Plt Count 271 MPV 10.7 PT 13.9 INR 1.1 Sodium 141 Potassium 3.8 Chloride 109 H Carbon Dioxide 25.0 Anion Gap 7 BUN 17 Creatinine 0.98 Estim Creat Clear Calc 42.83 Est GFR (MDRD) Af Amer 71 Est GFR (MDRD) Non-Af 59 L BUN/Creatinine Ratio 17.3 Glucose 150 H Calcium 8.8 Lactate Dehydrogenase 440 H Total Protein 7.7 Globulin 4.3 H Albumin/Globulin Ratio 0.8 L Fluid Source Fluid Color Fluid Appearance Fluid WBC Fluid RBC Fluid Tot Cell Count Fld Polynuclear WBCs # Fld Polynuclear WBCs % Fluid Mononuclear WBCs Fld Mononuclear WBCs % Fluid Neutrophils Fluid Lymphocytes Fluid Monocytes Fl Pathologist Comment Fluid Glucose Fluid Total Protein Fluid LDH Fluid Comment 2 Miscellaneous Test 11/12/18 11/12/18 11/12/18 13:00 13:00 13:00 WBC RBC Hgb Hct MCV MCH MCHC RDW RDW Differential Plt Count MPV PT INR Sodium Potassium Chloride Carbon Dioxide Anion Gap BUN Creatinine Estim Creat Clear Calc Est GFR (MDRD) Af Amer Est GFR (MDRD) Non-Af BUN/Creatinine Ratio Glucose Calcium Lactate Dehydrogenase Total Protein Globulin Albumin/Globulin Ratio Fluid Source Fluid Color Fluid Appearance Fluid WBC Fluid RBC Fluid Tot Cell Count Fld Polynuclear WBCs # Fld Polynuclear WBCs % Fluid Mononuclear WBCs Fld Mononuclear WBCs % Fluid Neutrophils Fluid Lymphocytes Fluid Monocytes Fl Pathologist Comment Fluid Glucose 189 H Fluid Total Protein Fluid LDH 500 Fluid Comment 2 Miscellaneous Test Pending 11/12/18 11/12/18 11/12/18 13:00 13:00 15:55 WBC RBC Hgb Hct MCV MCH MCHC RDW RDW Differential Plt Count MPV PT INR Sodium Potassium Chloride Carbon Dioxide Anion Gap BUN Creatinine Estim Creat Clear Calc Est GFR (MDRD) Af Amer Est GFR (MDRD) Non-Af BUN/Creatinine Ratio Glucose Calcium Lactate Dehydrogenase 437 H Total Protein 7.6 Globulin 4.3 H Albumin/Globulin Ratio 0.8 L Fluid Source THORACENTESIS Fluid Color PINK Fluid Appearance CLOUDY Fluid WBC 16.154 Fluid RBC 0.41340 Fluid Tot Cell Count 16.138 H Fld Polynuclear WBCs # 0.079 Fld Polynuclear WBCs % 0.5 Fluid Mononuclear WBCs 15.707 Fld Mononuclear WBCs % 99.5 Fluid Neutrophils 1 Fluid Lymphocytes 12 Fluid Monocytes 87 Fl Pathologist Comment May follow Fluid Glucose Fluid Total Protein 3.5 Fluid LDH Fluid Comment 2 SEE COMMENT Miscellaneous Test POC Glucose 11/12/18 16:26 POC Glucose 192 H Discharge Diet: - Discharge Activity: - Disposition: Acute care Hospital Minutes spent on discharge:: 60 Patient Condition:: Stable Medical Necessity - Tobacco Use Smoking Status: Former smoker Meaningful Use Info Meaningful Use Diagnoses (Choose all that apply): None applicable Code Visit Inpatient E&M: 36295 Disch Hosp
[2018-11-12] MEDS: Glucerna Shake 120 ML LIQUID PO (17:37)
[2018-11-12] MEDS: Gabapentin 100 MG Capsule PO (17:37)
[2018-11-12] MEDS: Insulin Lispro 100 UNIT/ML INSULN.PEN SC (17:37)
--- NOTE | 2018-11-12 18:14 | NURSING ---
Reviewed and agreed on all charting with Reyes Cabrera RN
--- NOTE | 2018-11-12 20:19 | NURSING ---
report given to Linda at at this time.
[2018-11-13 01:46] LABS: White Blood Count/Body Fluid 16.138 10^3/uL
[2018-11-13 01:53] LABS: Body Fluid Total Cells Counted 16.154 10^3/ul (0.000-0.000)
[2018-11-15 10:41] LABS: Lymphocytes 96 %; Monocytes 3 %
[2018-11-15 13:30] LABS: Pathologist Comment/Body Fluid Reviewed
[2018-11-19 15:33] LABS: Cytology, Body Fluid / CSF SEE PATHOLOGY REPORT
== END 2018-11-12 21:30 | disposition short-term general hospital (02) | DRG 181 ==
LOC: ED 18:58 → PCU 11-12 00:27
PROVIDERS: Physician Assistant; Admitting Provider Hospitalist; Emergency Provider Emergency Medicine; Family Provider Family Medicine; PCP Family Medicine
DX: C34.90 Malignant neoplasm of unspecified part of unspecified bronchus or lung (principal); J90 Pleural effusion, not elsewhere classified; C79.51 Secondary malignant neoplasm of bone; Z68.41 Body mass index [BMI] 40.0-44.9, adult; Z87.891 Personal history of nicotine dependence; I10 Essential (primary) hypertension; E78.5 Hyperlipidemia, unspecified; K21.9 Gastro-esophageal reflux disease without esophagitis; E03.9 Hypothyroidism, unspecified; E66.01 Morbid (severe) obesity due to excess calories; E11.9 Type 2 diabetes mellitus without complications; Z79.84 Long term (current) use of oral hypoglycemic drugs; Z79.899 Other long term (current) drug therapy
CPT/HCPCS: 32555; 36415; 71250; 72157; 74177; 80048; 80053; 82945; 82962; 83615; 83690; 83880; 84156; 84157; 85027; 85610; 87070; 87075; 87086; 87088; 87205; 88108; 88305; 88313; 88341; 88342; 89050; 97162; 97166; 99282; A9585; J7030; Q9967; A4216; J2405

== ENCOUNTER 2018-12-30 09:50 | Day surgery (SDC) | payer MEDICARE, SELFPAY ==
[2018-12-13 14:35] VITALS: BMI 42.2
[2018-12-24 15:32] VITALS: BMI 42.3
--- NOTE | 2018-12-29 11:27 | EKG12_ITS ---
Test Reason : PRE-OP Blood Pressure : / mmHG Vent. Rate : 081 BPM Atrial Rate : 081 BPM P-R Int : 184 ms QRS Dur : 086 ms QT Int : 400 ms P-R-T Axes : 072 -28 025 degrees QTc Int : 464 ms Normal sinus rhythm Normal ECG Confirmed by HAYLEE BRISENO, KATEY ([id number]), market editor ENEIDA DELACRUZ ([id number]) on 12/31/2018 8:36:10 AM Referred By: Lalo Barrett Confirmed By:KATEY LEACH MD
[2018-12-29 11:39] LABS: Hematocrit 35.4 % (37-47); Hemoglobin 10.9 g/dl (12.0-15.0); Mean Corp Hgb Conc 30.8 g/gl (32-36); Mean Corpuscular Hgb 29.4 pg (27.0-32.0); Mean Corpuscular Volume 95.4 fL (81-99); Mean Platelet Vol. 9.7 fl (6.2-12.0); Platelet Count 451 K/mm3 (150-450); RBC Distribution Width CV 13.5 % (11.6-14.6); RBC Distribution Width SD 44.6 fl (35.1-43.9); Red Blood Count 3.71 M/mm3 (4.2-5.4); White Blood Count 7.2 K/mm3 (4.4-11.0)
[2018-12-29 11:42] LABS: Scan Indicated on CBC? Y/N NO
[2018-12-29 12:18] LABS: Anion Gap 9 (5-15); BUN 34 mg/dL (7-18); Calcium,Total 9.4 mg/dL (8.5-10.1); Chloride 105 mmol/L (98-107); Creatinine, Serum 0.83 mg/dL (0.55-1.02); EST Glomerular Filtration Rate 71 mL/min (>60); Est Glom Filt Rate - Afr Amer 86 mL/min (>60); Glucose 128 mg/dL (74-106); Potassium 3.8 mmol/L (3.5-5.1); Sodium Level 142 mmol/L (136-145)
[2018-12-30] VITALS (15 sets, daily range): BP systolic 80–125; BP diastolic 39–73; PULSE 74–87; RESP 16–18; TEMP 36.5–37; O2SAT 91–96; BMI 41.3
[2018-12-30 11:06] LABS: Bedside Glucose 108 mg/dL (70-110)
--- NOTE | 2018-12-30 12:32 | DCINST_ITS ---
Discharge Diet: No Restrictions - Pain medication may cause nausea. You should typically eat light foods as you take your pain medication. Discharge Activity: Return to Normal Activity, May Shower - Leave the bandage on for 2-3 days. When you remove the bandage, leave the steri-strips intact until they fall off. Additional Activity Instructions:: Limit your lifting and straining until the soreness subsides. Please do not drive for 1-2 days until you return to full alertness. Additional Dressing/Incision Instructions:: Leave the bandage on for 3-4 days. When you remove the bandage, leave the steri-strips intact for 1 week. Allergies/Adverse Reactions: Allergies Sulfa (Sulfonamide Antibiotics) Allergy (Verified 12/29/18 10:39) Unknown sulfamethoxazole [From Septra] Allergy (Verified 12/29/18 10:39) Unknown trimethoprim [From Julra] Allergy (Verified 12/29/18 10:39) Unknown codeine Adverse Reaction (Verified 12/29/18 10:39) Nausea/Vom/Diarrhea hydrocodone [From Vicodin] Adverse Reaction (Verified 12/29/18 10:39) Nausea/Vom/Diarrhea lisinopril Adverse Reaction (Verified 12/29/18 10:39) cough morphine Adverse Reaction (Verified 12/29/18 10:39) Other Medications to take at Discharge Albuterol Aerosols [Ventolin Aerosols] 2.5 mg INHALATION Q4H PRN PRN 08/11/18 Levothyroxine [Synthroid] 50 mcg PO DAILY 08/11/18 Multivit with Calcium,Iron,Min [Multiple Vitamins For Women] 1 each PO DAILY 08/11/18 Polyethylene Glycol 3350 [Miralax] 17 gm PO BID 08/11/18 Potassium Chloride [Klor-Con M10] 10 meq PO DAILY 08/11/18 Simvastatin [Zocor] 20 mg PO QHS 08/11/18 Oxybutynin [Ditropan] 5 mg PO 4X/DAY 12/09/18 Oxycodone [Oxyir] 5 mg PO Q4H PRN PRN 12/09/18 Pantoprazole Sodium [Protonix] 40 mg PO DAILY 12/09/18 Gabapentin [Neurontin] 300 mg PO BIDCM 12/13/18 Hydrochlorothiazide 12.5 mg PO DAILY 12/29/18 Ibuprofen [Motrin] 600 mg PO Q6H PRN PRN 12/29/18 Mpap Arthritis Er 2 tab PO Q8H PRN PRN 12/29/18 Naproxen Sodium [Naproxen Sodium ER] 500 mg PO BID 12/29/18 Ondansetron HCl [Zofran] 4 mg PO TID PRN PRN #30 tablet 12/29/18 Primary Care Physician: Harjinder Borjas MD [Primary Care Provider] - Test Results: Test results from this visit will be discussed in further detail at your follow- up appointment, if applicable. Please Follow Up With: Lalo Barrett MD - [phone] When: Office followup if any concerns
[2018-12-30] MEDS: Cefazolin 2 GM in 0.9% Normal Saline 100 ML IV (12:43)
[2018-12-30] MEDS: Bupivacaine Mpf 0.5% 30 ML VIAL (12:50)
--- NOTE | 2018-12-30 13:15 | PCM.OPRPT ---
Problem List (1) Metastatic cancer Status: Suspected Report of Operation Date of Procedure: 12/30/18 Pre-Operative Diagnosis: Metastatic carcinoma Post-Operative Diagnosis: Same Surgery/Procedure Performed:: Right internal jugular 6 Bahamian power port placement Description of Surgical Findings:: Timeout and informed consent was obtained. 73-year-old female was taken down from placement table underwent monitored anesthesia care. Ancef 2 g given intravenously preoperatively. The right neck and chest were sterilely prepped and draped. Under ultrasound guidance 1% lidocaine mixed 50-50 with 0.5% Marcaine was used as local anesthetic. A total of 19 cc was used. Local was instilled micropuncture needle inserted by Bahamian wire inserted micropuncture sheath inserted 035 J-wire was inserted fluoroscopy demonstrated good positioning. Local was instilled down upon the chest wall. Second intercostal space midclavicular line transverse incision was created using electrocautery sub-changes pocket was created. The tubing was tunneled from the chest to the neck. Then sheath dilator was placed over the wire the wire and dilator were removed the catheter was advanced through the sheath the sheath was split the catheter was positioned at the SVC atrial junction. The catheter was shortened the length attached to the port and secured with port attachment device. The port was placed within the pocket and secured there with interrupted 2-0 silk. The pocket was closed with interrupted 3-0 Vicryl subdermal stitches. The neck was closed with interrupted 5-0 Vicryl. Steri-Strips Telfa and OpSite dressings applied. Sponge and instrument and needle counts reported the surgery were correct. The port was accessed and aspirated easily was flushed with saline and then 2-1/2 cc of heparinized saline. Sponge and instrument and needle counts correct. She was taken to the recovery area in satisfactory condition. Specimen none. Drains none. Blood loss minimal. Stat portable chest x-ray is pending Lalo Barrett M.D., F.A.C.S. Type of Anesthesia:: Local MAC Anesthesiologist: Prem Be
--- NOTE | 2018-12-30 13:40 | RAD_ITS ---
STUDY: X-RAY CHEST REASON FOR EXAM: Female, 73 years old. Port placement. TECHNIQUE: Single AP portable view of the chest. COMPARISON: None. FINDINGS: A right-sided portacatheter is in place. The tip is in the midportion of the superior vena cava. There is a 5.2 cm x 5.3 cm rounded soft tissue density in the right midlung. This may represent fluid in the right major fissure or possible mass. Blunting of the above the right costophrenic angle. Normal size heart. Normal mediastinum and galileo. Normal visualized pulmonary arteries. Normal visualized aortic arch and descending thoracic aorta. The patient is status post [place] jovany fixation of the dorsal and upper lumbar spine. Normal visualized ribs, clavicles, and shoulders. There is no demonstrated abnormality of the visualized soft tissue structures of the upper abdomen. RAD/Chest 1 View (Portable) IMPRESSION: The tip of the right portacatheter is in midportion of the superior vena cava. Electronically Signed: Sixto Bess MD at 14:35 EST , Service support ,
== END 2018-12-30 15:13 | disposition home or self-care (01) ==
LOC: SDC 09:51 → AC 09:52
PROVIDERS: Family Provider Family Medicine; PCP Family Medicine; Referring Provider Surgery; Visit Provider Surgery
PROC: (CPT 36571; principal; 2018-12-30 12:15)
DX: C34.91 Malignant neoplasm of unspecified part of right bronchus or lung (principal); C79.51 Secondary malignant neoplasm of bone; I10 Essential (primary) hypertension; K21.9 Gastro-esophageal reflux disease without esophagitis; E03.9 Hypothyroidism, unspecified; G62.9 Polyneuropathy, unspecified; Z87.891 Personal history of nicotine dependence; E66.9 Obesity, unspecified; Z68.41 Body mass index [BMI] 40.0-44.9, adult; E78.00 Pure hypercholesterolemia, unspecified; E11.9 Type 2 diabetes mellitus without complications; Z79.84 Long term (current) use of oral hypoglycemic drugs; Z79.51 Long term (current) use of inhaled steroids; Z79.891 Long term (current) use of opiate analgesic; Z79.899 Other long term (current) drug therapy
CPT/HCPCS: 36571; 36415; 71045; 77001; 77412; 77417; 80048; 82962; 85027; 93005; J7120

== ENCOUNTER → 2019-03-03 | Outpatient (CLI) | payer MEDICARE, SELFPAY ==
[2018-12-13 14:35] VITALS: BMI 42.2
[2019-02-14 10:21] VITALS: BMI 41.6
[2019-02-28 10:53] VITALS: BMI 41.4
--- NOTE | 2019-03-03 08:35 | CT_ITS ---
STUDY: CT ABDOMEN AND PELVIS WITH CONTRAST REASON FOR EXAM: Female, 73 years old. Lung cancer. Tumor removal from spine. RADIATION DOSAGE (If Supplied By Facility): CTDIvol = ( 23.33 ) mGy, DLP = ( 2370.40 ) mGycm TECHNIQUE: Transaxial images were obtained from the dome of the diaphragm to the symphysis pubis without oral contrast. 100 IV Isovue 300 was administered. Sagittal and coronal images were reconstructed. Individualized dose optimization techniques were used for this CT. COMPARISON: November 11, 2018. FINDINGS: There is moderate right pleural effusion and lower lung consolidation. The visualized portions of the heart are within normal limits. Normal liver. There is non-visualization of the gallbladder, which may be secondary to either contraction or a prior cholecystectomy. Normal spleen. Normal pancreas. Normal bilateral adrenal glands. Normal right kidney. Normal left kidney. Normal visualized stomach. Normal small intestine. Normal colon. There is non-visualization of the appendix. There is diffuse atherosclerotic calcification of the abdominal aorta, without a demonstrated aneurysm. Normal inferior vena cava. Normal retroperitoneum. Normal urinary bladder. Normal visualized uterus. There is enlargement of the right gonadal vein with diminished enhancement suggesting thrombus, series 3 images 50/112 screws 60/112. There is no free fluid in the abdomen or pelvis. Normal abdominal wall. There are postoperative changes of the spine with fusion from the thoracic spine to L2. There is destructive lesion of T10 and T11 vertebra on the right. There are adjacent abnormalities of 10th and 11th ribs. CT/Abdomen/Pelvis WITH Contrast IMPRESSION: No intra-abdominal mass or obstruction. Right lower lung consolidation and pleural effusion. Masses of the T10 and T11 vertebra and adjacent ribs with postoperative change and hardware spanning this region. Electronically Signed: Sudhakar Black MD at 9:35 EDT , Service support ,
--- NOTE | 2019-03-03 08:35 | CT_ITS ---
STUDY: CT CHEST WITH CONTRAST REASON FOR EXAM: Female, 73 years old. Lung cancer. Tumor removal from spine. RADIATION DOSAGE (If Supplied By Facility): CTDIvol = ( 23.33 ) mGy, DLP = ( 2370.40 ) mGycm TECHNIQUE: Transaxial imaging was performed following intravenous administration of 100 IV Isovue 300. Multiplanar coronal and sagittal images were reformatted. Individualized dose optimization techniques were used for this CT. COMPARISON: November 11, 2018. FINDINGS: There is a port on the right extending to the superior vena cava. There is stable right middle lobe collapse with mass and endobronchial opacification. There is right lower lung consolidation. There is moderate right pleural effusion. There is stable mild interstitial accentuation and small groundglass opacities of the lungs. There are calcifications of the coronary arteries. There are 2.0 cm right lower paratracheal lymph nodes. There are 0.9 cm anterior mediastinal AP window lymph nodes. Right hilum is enlarged. Normal enhanced pulmonary arteries. There is atherosclerotic calcification of the aortic arch with tortuosity and elongation of the aortic arch and descending thoracic aorta. There is postoperative change of the spine with hardware from T7 through the lumbar spine. There are destructive lesions of the T10 and T11 vertebral bodies on the right side. There is compression fracture of T10 with 15% loss of height . There is laminectomy from T9 to T11. There is destruction of the right 10th and 11th ribs with pathologic fractures. There is no demonstrated abnormality of the visualized upper abdomen. CT/Chest WITH Contrast IMPRESSION: Right middle lobe mass with collapse. Right lower lung consolidation and pleural effusion. Mediastinal and right hilar lymphadenopathy similar to the prior exam Postoperative changes of the spine with pathologic fractures and prior intervention. Electronically Signed: Sudhakar Black MD at 9:47 EDT , Service support ,
== END | disposition home or self-care (01) ==
PROVIDERS: Family Provider Family Medicine; PCP Family Medicine; Referring Provider Internal Medicine Medical Oncology; Visit Provider Internal Medicine Medical Oncology
DX: C34.2 Malignant neoplasm of middle lobe, bronchus or lung (principal); C79.51 Secondary malignant neoplasm of bone
CPT/HCPCS: 71260; 74177; Q9967

== ENCOUNTER 2019-03-04 18:04 | Emergency (ER) | payer MEDICARE, SELFPAY ==
[2018-12-13 14:35] VITALS: BMI 42.2
[2019-02-28 10:53] VITALS: BMI 41.4
[2019-03-04 18:05] VITALS: BP 155/74; PULSE 109; RESP 18; TEMP 36.7; O2SAT 92; BMI 41.3
--- NOTE | 2019-03-04 18:22 | ED.VISSUMM ---
- ER Visit Summary Date of Service: 03/04/19 Chief Complaint: [Redness and swelling to left third toe] History of Present Illness: The patient is a 73 F [presents the emergency department complaint of redness and swelling to her left third toe that started this morning. Patient denies any trauma. He denies any fevers. Patient is scheduled to have chemotherapy for her lung cancer in 3 days and apparently her oncologist wanted to have it evaluated. Patient has history of diabetes, hypertension, high cholesterol.] Physical Examination: [HEENT-PERRLA, EOMI. Cranial nerves II through XII grossly intact. TMs clear. Mucous membranes moist. No adenopathy. Cardiovascular-regular rate and rhythm without murmur or ectopy Lungs-clear to auscultation, chest wall stable without crepitus or subcu emphysema Abdomen-normoactive bowel sounds, soft, nontender, no rebound or rigidity, no peritoneal signs. Extremities-intact ?4, normal range of motion, normal pulses, atraumatic. Left foot-left third toe there is same very subtle erythema to the distal phalanx over the dorsal aspect into the pulp of the digit. Normal cap refill. No evidence of trauma. No deformity.] Test Results: [None indicated] Emergency Department Course and Treatment: [Patient was given a dose of clindamycin.] Treatment Plan: [Patient will be given a prescription for clindamycin and advised to follow-up with her primary care physician in 3 to 5 days.] Disposition: [Discharged home stable condition] Impression: [Cellulitis left third toe] This note was generated with [employer] dictation software. It may contain incorrect words, spelling, and punctuation that were not noted in review of the chart prior to signing ED Disposition - Plan for ED Patient: Referrals: Harjinder Borjas MD [Primary Care Provider] -
--- NOTE | 2019-03-04 18:24 | ED.DEP ---
ED Disposition - Plan for ED Patient: Instructions: ED Infec Skin Cellulitis Prescriptions: Clindamycin HCl [Cleocin] 300 mg PO Q6H #40 cap Referrals: Harjinder Borjas MD [Primary Care Provider] - 3-5 Days
[2019-03-04 18:25] VITALS: BP 148/82; PULSE 87; RESP 16; O2SAT 97
[2019-03-04] MEDS: Clindamycin HCl 150 MG Capsule 300 MG PO (18:31)
== END 2019-03-04 18:34 | disposition home or self-care (01) ==
LOC: ED 18:33
PROVIDERS: Emergency Provider Emergency Medicine; Family Provider Family Medicine; PCP Family Medicine
DX: L03.032 Cellulitis of left toe (principal); C34.90 Malignant neoplasm of unspecified part of unspecified bronchus or lung; E11.9 Type 2 diabetes mellitus without complications; I10 Essential (primary) hypertension
CPT/HCPCS: 99283

== ENCOUNTER 2019-03-14 10:19 | Emergency (ER) | payer MEDICARE, SELFPAY ==
[2018-12-13 14:35] VITALS: BMI 42.2
[2019-03-14 10:19] VITALS: BMI 41.3
[2019-03-14 10:21] VITALS: BP 162/68; PULSE 94; RESP 17; TEMP 36.8; O2SAT 96; BMI 40.9
[2019-03-14 10:36] VITALS: PULSE 98; RESP 20; O2SAT 95
--- NOTE | 2019-03-14 10:45 | EKG12_ITS ---
Test Reason : UG PAIN Blood Pressure : / mmHG Vent. Rate : 089 BPM Atrial Rate : 089 BPM P-R Int : 182 ms QRS Dur : 080 ms QT Int : 388 ms P-R-T Axes : 058 -60 028 degrees QTc Int : 472 ms Normal sinus rhythm Left axis deviation Low voltage QRS Inferior infarct , age undetermined Poor R wave progression Abnormal ECG Confirmed by TORRIE BRISENO, ENEIDA ([id number]), news copy editor KATYA RAY ([id number]) on 03/17/2019 9:06:21 AM Referred By: Harjinder Borjas Confirmed By:ENEIDA BROWNLEE MD
--- NOTE | 2019-03-14 10:49 | RAD_ITS ---
STUDY: X-RAY CHEST REASON FOR EXAM: Female, 73 years old. Shortness of breath TECHNIQUE: Single AP portable view of the chest. COMPARISON: Chest x-ray 12/30/[address] 03/03/2019 FINDINGS: There is a right-sided [id number] with its tip overlying the SVC. The lungs are clear and expanded. There is a small right pleural effusion, grossly similar to most recent exam. There is right middle lobe consolidation as seen on prior exam. No significant left pleural effusion. The lungs are otherwise clear. Normal size heart. Normal mediastinum and galileo. Normal visualized pulmonary arteries. Normal visualized aortic arch and descending thoracic aorta. There is posterior fusion of the visualized lower thoracic and upper lumbar spine with transpedicular screws and rods. Normal visualized ribs, clavicles, and shoulders. There is no demonstrated abnormality of the visualized soft tissue structures of the upper abdomen. RAD/Chest 1 View (Portable) IMPRESSION: Small right pleural effusion is not significantly changed. Right middle lobe consolidation is again noted. Electronically Signed: Loni Zepeda, at 11:40 EDT Tel , Service support ,
[2019-03-14] MEDS: HYDROmorphone 1 MG/ML Syringe IV (11:15)
[2019-03-14] MEDS: Ondansetron 4 MG/2 ML Vial IV (11:15)
[2019-03-14 11:19] LABS: Absolute Lymphocyte Count 0.42 X10^3/ul (0.83-4.51); Absolute Neutrophil Count 0.7 X10^3/uL (2.0-7.7); Basophil# 0.04 X10^3/uL; Basophil% 3.1 % (0-1); Eosinophil# 0.03 X10^3/uL; Eosinophils% 2.4 % (0-5); Hematocrit 31.4 % (37-47); Hemoglobin 10.1 g/dl (12.0-15.0); Lymphocyte # 0.42 X10^3/ul (4.0); Lymphocyte % 33.1 % (19-41); Mean Corp Hgb Conc 32.2 g/gl (32-36); Mean Corpuscular Hgb 28.3 pg (27.0-32.0); Monocyte# 0.08 X10^3/uL; Monocyte% 6.3 % (0-10); Neutrophil # 0.69 X10^3/uL (2.7-7.7); Neutrophil % 54.3 % (47-70); Platelet Count 196 K/mm3 (150-450); RBC Distribution Width SD 51.2 fl (35.1-43.9); Red Blood Count 3.57 M/mm3 (4.2-5.4)
[2019-03-14 11:23] LABS: Differential Indicated SCAN CRITERIA MET; POSITIVE COUNT YES; POSITIVE DIFFERENTIAL YES; POSITIVE MORPHOLOGY NO
[2019-03-14 11:24] LABS: White Blood Count 1.3 K/mm3 (4.4-11.0)
--- NOTE | 2019-03-14 11:25 | ED.RN ---
LAB CALL WITH CRITICAL FINDING WBC OF 1.3. VERBALLY INFORMED SHARMIN SMITH AND DR. ALVARENGA.
[2019-03-14 11:31] LABS: ALB/GLOB Ratio 0.5 RATIO (0.9-2.4); AST(SGOT) 34 U/L (15-37); Alanine Aminotransfer ALT/SGPT 30 U/L (13-56); Albumin, Serum 2.8 g/dL (3.2-5.0); Alkaline Phosphatase 51 U/L (45-117); Anion Gap 5 (5-15); BUN 15 mg/dL (7-18); BUN/Creat Ratio 18.8 RATIO (10-20); Calcium,Total 8.7 mg/dL (8.5-10.1); Chloride 103 mmol/L (98-107); EST Glomerular Filtration Rate 74 mL/min (>60); Est Glom Filt Rate - Afr Amer 90 mL/min (>60); Estimated Creatinine Clearance 50.26 ml/min; Globulin 5.1 g/dL (2.2-4.2); Glucose 111 mg/dL (74-106); Potassium 3.3 mmol/L (3.5-5.1); Protein, Total 7.9 g/dL (6.4-8.2); Sodium Level 136 mmol/L (136-145)
[2019-03-14] MEDS: proMETHazine 25 MG/ML Syringe 6.25 MG IV (12:03)
[2019-03-14] MEDS: Mag Hydrox/Al Hydrox/Simeth 30 ML UDC PO ×2 (12:33→16:56)
[2019-03-14 12:34] VITALS: PULSE 91; RESP 17; O2SAT 93
--- NOTE | 2019-03-14 14:48 | ED.VISSUMM ---
- ER Visit Summary Date of Service: 03/14/19 Chief Complaint: Epigastric pain History of Present Illness: The patient is a 73 F presenting with epigastric pain. Patient states this started on Thursday. She states that the pain has been continuous. It is a burning sensation. It is worsened when she swallows. She is currently on chemotherapy for stage IV non-small cell lung cancer. Last chemotherapy was 03/07. After radiation, patient experienced radiation esophagitis. She states this feels similar. She tried Carafate at home. She denies chest pain. She states when the pain is severe she has shortness of breath. She denies diaphoresis. Denies nausea or vomiting. Denies diarrhea or constipation. Denies fever. Denies other complaints. Physical Examination: Vitals are stable. Patient is afebrile. Alert no acute distress. HEENT exam is unremarkable. Neck is supple. Lungs are clear and equal bilaterally. Heart is regular rate and rhythm. Abdomen is soft mild epigastric tenderness with no rebound or guarding Extremities are unremarkable. Skin is warm and dry. No focal neurologic deficit. Remainder of exam is unremarkable. Emergency Department Course and Treatment: Patient was given Dilaudid, Zofran IV. CBC shows white count 1.3, hemoglobin 10.1. Chemistries show potassium 3.3, glucose 111. Troponin is negative. EKG is sinus rate of 89 with no acute ischemic changes. Chest x-ray shows small right pleural effusion is not significantly changed. Right middle lobe consolidation is again noted. Patient has nausea on reevaluation and was given Phenergan. She was then given a GI cocktail with much improvement of her symptoms. She states she feels well and would like to go home. Repeat troponin was obtained and is negative. Discussed with Dr. Gates. Patient will be referred to GI. Advised to return to the ED for worsening complaints. Disposition: Discharge home Impression: Epigastric pain This note was generated with [employer] dictation software. It may contain incorrect words, spelling, and punctuation that were not noted in review of the chart prior to signing ED Disposition - Plan for ED Patient: Instructions: ED GERD Referrals: Bryce Christianson MD [NON-STAFF] - Harjinder Borjas MD [Primary Care Provider] -
--- NOTE | 2019-03-14 15:24 | ED.DEP ---
ED Disposition - Plan for ED Patient: Instructions: ED GERD Referrals: Harjinder Borjas MD [Primary Care Provider] - Bryce Christianson MD [NON-STAFF] -
[2019-03-14 16:57] VITALS: BP 154/66; PULSE 90; PULSE 93; RESP 17; O2SAT 95
[2019-03-16 15:59] LABS: Pathologist Review Reviewed
== END 2019-03-14 16:58 | disposition home or self-care (01) ==
PROVIDERS: Emergency Provider Emergency Medicine; Family Provider Family Medicine; PCP Family Medicine
DX: R10.13 Epigastric pain (principal); C34.90 Malignant neoplasm of unspecified part of unspecified bronchus or lung; K21.9 Gastro-esophageal reflux disease without esophagitis; E11.9 Type 2 diabetes mellitus without complications; I10 Essential (primary) hypertension; E78.00 Pure hypercholesterolemia, unspecified; Z79.899 Other long term (current) drug therapy
CPT/HCPCS: 36591; 71045; 80053; 84484; 85025; 93005; 96361; 96374; 96375; 99283; J7040; A4216; J2405

== ENCOUNTER → 2019-04-14 | Outpatient (CLI) | payer MEDICARE, SELFPAY ==
[2018-12-13 14:35] VITALS: BMI 42.2
[2019-03-28 09:03] VITALS: BMI 40.9
[2019-04-12 09:52] VITALS: BMI 40.1
--- NOTE | 2019-04-14 08:10 | CT_ITS ---
STUDY: CT chest and abdomen with contrast REASON FOR EXAM: Female, 73 years old. Lung cancer RADIATION DOSAGE (If Supplied By Facility): DLP = ( 1535.40 ) mGycm TECHNIQUE: Transaxial imaging was performed following intravenous administration of 100 ml of Isovue 300 contrast material. Coronal and sagittal reformatted images were created. Individualized dose optimization techniques were used for this CT. COMPARISON: CT chest abdomen pelvis from March 03, 2019 FINDINGS: There is a large right-sided pleural effusion with adjacent atelectasis/consolidation. The left pleural space is clear. There is a stable right lower lobe 6 mm nodule, series 6 image 64. There is stable right middle lobe consolidation. Previously described mass is obscured. There is no pneumothorax present. The heart and pericardium are within normal limits. There has been interval decrease in size of a pretracheal lymph node previously measuring 2.1 x 1.2 cm, now measuring less than 1 cm. Additional mediastinal lymphadenopathy also demonstrates interval improvement. There is no evidence of thoracic aortic aneurysm. The liver is normal in appearance. The gallbladder is absent or contracted. The pancreas is unremarkable in appearance. The spleen is normal in size. The adrenal glands and kidneys are normal in appearance. There is no lymphadenopathy. There is no evidence of bowel obstruction or inflammation. There is no free air or free fluid present. Lumbar stabilization hardware is present with redemonstrated pathologic fractures. CT/Chest WITH Contrast IMPRESSION: Large right-sided effusion with adjacent atelectasis/consolidation. Redemonstrated right middle lobe consolidation with obscured previously described mass. Clinical correlation suggested. Interval improvement in mediastinal lymphadenopathy. Stable right lower lobe 6 mm nodule. Electronically Signed: Tyler Mcdaniel, at 18:51 EDT Tel , Service support ,
--- NOTE | 2019-04-14 08:10 | CT_ITS ---
STUDY: CT chest and abdomen with contrast REASON FOR EXAM: Female, 73 years old. Lung cancer RADIATION DOSAGE (If Supplied By Facility): DLP = ( 1535.40 ) mGycm TECHNIQUE: Transaxial imaging was performed following intravenous administration of 100 ml of Isovue 300 contrast material. Coronal and sagittal reformatted images were created. Individualized dose optimization techniques were used for this CT. COMPARISON: CT chest abdomen pelvis from March 03, 2019 FINDINGS: There is a large right-sided pleural effusion with adjacent atelectasis/consolidation. The left pleural space is clear. There is a stable right lower lobe 6 mm nodule, series 6 image 64. There is stable right middle lobe consolidation. Previously described mass is obscured. There is no pneumothorax present. The heart and pericardium are within normal limits. There has been interval decrease in size of a pretracheal lymph node previously measuring 2.1 x 1.2 cm, now measuring less than 1 cm. Additional mediastinal lymphadenopathy also demonstrates interval improvement. There is no evidence of thoracic aortic aneurysm. The liver is normal in appearance. The gallbladder is absent or contracted. The pancreas is unremarkable in appearance. The spleen is normal in size. The adrenal glands and kidneys are normal in appearance. There is no lymphadenopathy. There is no evidence of bowel obstruction or inflammation. There is no free air or free fluid present. Lumbar stabilization hardware is present with redemonstrated pathologic fractures. CT/Abdomen WITH IV Contrast IMPRESSION: Large right-sided effusion with adjacent atelectasis/consolidation. Redemonstrated right middle lobe consolidation with obscured previously described mass. Clinical correlation suggested. Interval improvement in mediastinal lymphadenopathy. Stable right lower lobe 6 mm nodule. Electronically Signed: Tyler Mcdaniel, at 18:51 EDT Tel , Service support ,
== END | disposition home or self-care (01) ==
PROVIDERS: Family Provider Family Medicine; PCP Family Medicine; Referring Provider Internal Medicine Medical Oncology; Visit Provider Internal Medicine Medical Oncology
DX: C34.2 Malignant neoplasm of middle lobe, bronchus or lung (principal)
CPT/HCPCS: 71260; 74160; Q9967; A4216

== ENCOUNTER → 2019-04-22 | Outpatient (CLI) | payer MEDICARE, SELFPAY ==
[2018-12-13 14:35] VITALS: BMI 42.2
[2019-04-18 10:01] VITALS: BMI 40.0
--- NOTE | 2019-04-22 11:45 | US_ITS ---
PROCEDURE: ULTRASOUND GUIDED THORACENTESIS. DATE: April 22, 2019. INDICATION: Female, 73 years old. Right pleural effusion. PHYSICIAN: Sixto Bess M.D. PROCEDURE: The risks, benefits, and alternatives to the procedure were explained to the patient. The specific risks of bleeding, infection, and pneumothorax requiring chest tube insertion were discussed and accepted. Written informed consent was obtained. Ultrasonographic evaluation of the right lower pleural space was carried out. An adequate pocket was identified. The patient was placed in the sitting, upright position. The overlying skin was prepped and draped in sterile fashion. 1% lidocaine was administered subcutaneously for local anesthesia. Under ultrasound guidance, a 5 Fijian thoracentesis needle/catheter system was advanced into the right posterior lower pleural fluid collection. Approximately 770 mL of bev-colored fluid was drained. The catheter was removed, and a sterile dressing was applied. A specimen was collected and sent to the laboratory for analysis, as requested by the referring clinician. The patient tolerated the procedure well. A chest x-ray was ordered. US/Thoracentesis W US IMPRESSION: Ultrasound-guided right thoracentesis. Electronically Signed: Sixto Bess, at 14:29 EDT , Service support ,
[2019-04-22 13:12] LABS: Partial Thromboplast Time 32.4 Seconds (24.1-36.2)
[2019-04-22 13:47] LABS: International Normalized Ratio 1.1; Prothrombin Time (Protime)PT. 13.8 SECONDS (11.7-14.9)
--- NOTE | 2019-04-22 14:07 | RAD_ITS ---
STUDY: X-RAY CHEST REASON FOR EXAM: Female, 73 years old. Status post right thoracentesis. TECHNIQUE: PA expiration and inspiration views. COMPARISON: Comparison is made with prior chest radiograph dated March 14, 2019. FINDINGS: The patient is status post right thoracentesis. A right-sided portacatheter is seen with the tip at the junction of the superior vena cava and right atrium. Small residual right pleural effusion with underlying right basilar atelectasis. There is no evidence of pneumothorax. RAD/Chest Insp/Exp 2 View IMPRESSION: Status post right thoracentesis. There is no evidence of pneumothorax. Mild residual pleural effusion with underlying atelectasis. Electronically Signed: Sixto Bess, at 14:57 EDT , Service support ,
[2019-04-22 14:17] LABS: Cytology, Body Fluid / CSF SEE PATHOLOGY REPORT
[2019-04-22 14:41] VITALS: BP 118/58; BP 125/71; BP 137/45; PULSE 86; PULSE 91; RESP 16; O2SAT 92; O2SAT 93; O2SAT 95
--- NOTE | 2019-04-25 | FLU_PTH ---
PATIENT: CARLOS HUNT LOC: [facility]#:[id number] AGE/SX: 73/F ROOM: RE04/22/[address]: CHEYENNE Hall : 1945 BED: DIS: 04/22/2019 SPEC #: [id number] RECD: 04/25/19 08:40 STATUS: BUDDY DUSTY #: [id number] CONNER: 04/25/19 00:[address]: Heidi Abad NP DEPT: CYTOLOGY RECD BY: Brandon Pryor ENTERED: 04/25/19 08:41 SP TYPE: Fluid OTHR DR: Dr. Harjinder Borjas MD Tissues: THORACIC FLUID Procedures: Special Stain Group II Surgery Specimen Level IV Cytospin Fluid HEADER OPERATION: Ultrasound-guided right thoracentesis PRE-OP DIAGNOSIS: Right pleural effusion, history of lung CA TISSUE SUBMITTED: Thoracentesis fluid for cytology DIAGNOSIS CYTOLOGY Thoracentesis fluid for cytology (cytospin and cell block): Negative for malignant cells. AM:aishwarya 04/26/19 CYTOLOGY STUDY Slides are reviewed. CYTOLOGY GROSS Received is 100 ml of yellow cloudy fluid labeled with the patient's name and and designated per the requisition as thoracentesis. Submitted for cytology preparation including cell block. / 04/25/19 TC:5 CPT: 33997, 23338
== END | disposition home or self-care (01) ==
LOC: US 11:43
PROVIDERS: Family Provider Family Medicine; PCP Family Medicine; Referring Provider Nurse Practitioner Family; Visit Provider Nurse Practitioner Family
DX: J90 Pleural effusion, not elsewhere classified (principal); C34.91 Malignant neoplasm of unspecified part of right bronchus or lung
CPT/HCPCS: 32555; 71046; 85610; 85730; 88108; 88305; 88313; A4216

== ENCOUNTER 2019-05-12 12:01 | Observation (INO) | payer MEDICARE, SELFPAY ==
[2018-12-13 14:35] VITALS: BMI 42.2
[2019-04-25 08:47] VITALS: BMI 39.1
[2019-05-12 12:02] VITALS: BP 131/70; PULSE 103; RESP 24; TEMP 36.5; O2SAT 94; BMI 40.8
--- NOTE | 2019-05-12 12:18 | EKG12_ITS ---
Test Reason : Blood Pressure : / mmHG Vent. Rate : 087 BPM Atrial Rate : 087 BPM P-R Int : 198 ms QRS Dur : 084 ms QT Int : 386 ms P-R-T Axes : 052 -51 010 degrees QTc Int : 464 ms Normal sinus rhythm Left axis deviation Low voltage QRS Inferior Infarct, age undertermined, cannnot be excluded Poor R- wave Progression Abnormal ECG Confirmed by TORRIE BRISENO, ENEIDA ([id number]), medical transcription editor JONATHAN SAN ([id number]) on 05/16/2019 2:21:38 PM Referred By: GERARDO Confirmed By:ENEIDA BROWNLEE MD
--- NOTE | 2019-05-12 12:18 | RAD_ITS ---
STUDY: X-RAY CHEST REASON FOR EXAM: Female, 73 years old. TECHNIQUE: 2 views COMPARISON: None. FINDINGS: The heart is not enlarged. There is a right sided pleural effusion of moderate degree underlying infiltrate in the right base cannot be excluded. The left lung and left costophrenic angle are clear. There is a Port-A-Cath with the line in the superior vena cava. The trachea is in the midline Hardware noted to fix the spine with Pollock rods bilaterally. The visualized bones are otherwise intact. RAD/Chest PA and Lateral IMPRESSION: Moderate right-sided pleural effusion underlying infiltrate in the right base cannot be ruled out. Electronically Signed: Jeb Keith, at 14:07 EDT Tel , Service support ,
--- NOTE | 2019-05-12 12:20 | ED.VIS.GEN ---
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 She denies chest discomfort of any type. She also reports bilateral lower extremity swelling first noted Thursday. She had an arthrocentesis performed 2 weeks ago. She states 750 cc was drained. Pathology report is pending. She denies history of heart failure. She is status post spinal stabilization and fusion secondary to pathologic fracture of the dorsal spine multiple levels Prior similar symptoms: Yes Recent Illness/Hospitalization: Yes - Past Medical History (1) Mass of middle lobe of right lung Status: Acute (2) Pleural effusion Status: Acute (3) Diabetes Status: Chronic (4) HTN (hypertension) Status: Chronic (5) Hyperlipidemia associated with type 2 diabetes mellitus Status: Chronic (6) Hypothyroidism Status: Chronic (7) Non-small cell carcinoma of right lung, stage 4 Status: Chronic (8) Metastatic cancer Status: Suspected Past Medical History - Allergies and Home Meds Allergies/Adverse Reactions: Allergies codeine Adverse Reaction (Severe, Verified 05/12/19 12:06) Nausea/Vom/Diarrhea hydrocodone [From Vicodin] Adverse Reaction (Severe, Verified 05/12/19 12:06) Nausea/Vom/Diarrhea morphine Adverse Reaction (Severe, Verified 05/12/19 12:06) Other lisinopril Adverse Reaction (Intermediate, Verified 05/12/19 12:06) cough Sulfa (Sulfonamide Antibiotics) Adverse Reaction (Intermediate, Verified 05/12/19 12:06) Unknown sulfamethoxazole [From Septra] Adverse Reaction (Intermediate, Verified 05/12/19 12:06) Unknown trimethoprim [From Septra] Adverse Reaction (Intermediate, Verified 05/12/19 12:06) Unknown Primary Care Physician: Harjinder Borjas MD [Primary Care Provider] - Prior records reviewed: Yes Surgical History: cholecystectomy, - Lives: With Family Smoking Status: Former smoker Alcohol: None Review of Systems General: Reports: Malaise. Denies: Chills, Fever, Sweats, Weight loss Eyes: Denies: Visual changes - bilaterally, Blurred Vision - bilaterally, Diplopia ENT: Denies: Rhinorrhea, Sore throat Cardiovascular: Denies: Chest pain, Palpitations, Heart racing Respiratory: Reports: Dyspnea, Dyspnea on exertion, Orthopnea - Chronic orthopnea. Patient states she slept in a chair for the past several years.. Denies: Cough Gastrointestinal: Denies: Abdominal pain, Nausea, Vomiting, Diarrhea, Melena, Hematochezia Genitourinary: Denies: Dysuria, Hematuria, Frequency Musculoskeletal: Reports: Swelling Skin: Denies: Rash, Wounds Neurological: Reports: Weakness. Denies: Headache, Parasthesia, Numbness, -, - Hematologic: Denies: Easy bruising, Easy bleeding Allergy: Denies: Uticaria, Swelling of the mouth Physical Exam Vital Signs/Narrative: Vital Signs Temp Pulse Resp BP Pulse Ox 05/12/19 12:02 97.7 F L 103 H 24 H 131/70 H 94 Inital Vital Signs reviewed: Yes General: Well nourished, Well developed, Obese, No Acute Distress Head: Normocephalic, Atraumatic Eyes: Perrl, EOMI. Negative for: Pale conjunctiva, Scleral icterus ENT: Moist mucous membranes, No rhinorrhea Neck: Supple, Nontender. Negative for: No lymphadenopathy, No JVD Cardiovascular: Regular rhythm, No murmurs, Normal S1, Normal S2, Tachycardia Respiratory: Rales, Diminished - No breath sounds noted lower third on the right. There is dullness to percussion., Decreased Air Movement Abdomen: Soft, Nontender, Nondistended, Normal bowel sounds Back: Nontender, Normal Inspection, - - Well-healed midline incision noted without evidence of infection Extremities: Tenderness - There is pain to palpation anteriorly not posteriorly along the distribution of the deep venous system., Edema - 1+ pitting bilaterally Skin: Normal color, No rash, No Trauma. Negative for: Cyanosis, Diaphoresis, Jaundice Neurological: Alert, Oriented x3, Cranial nerves II-XII grossly intact, Normal Strength, Normal Sensation Psychological: Depressed Diagnostic/Tx/Re-eval Chest X-Ray - ED: 2 View, Mediastinum, Bony Structures, Right Effusion Impressions Chest X-Ray 05/12/19 12:18 IMPRESSION: Moderate right-sided pleural effusion underlying infiltrate in the right base cannot be ruled out. Electronically Signed: Jeb Keith, at 14:07 EDT Tel , Service support , 05/12/19 12:18 Chest PA and Lateral [RAD] Stat Laboratory Results 05/12/19 05/12/19 12:55 12:55 WBC 5.3 RBC 3.24 L Hgb 9.8 L Hct 31.3 L MCV 96.6 MCH 30.2 MCHC 31.3 L RDW 17.8 H RDW Differential 63.5 H Plt Count 217 MPV 9.6 Immature Gran % (Auto) 0.200 Neut % (Auto) 64.1 Lymph % (Auto) 15.0 L [place] % (Auto) 13.3 H Eos % (Auto) 6.8 H Baso % (Auto) 0.6 Absolute Neuts (auto) 3.4 Absolute Lymphs (auto) 0.80 L Total Counted Not Reportable Sodium 136 Potassium 3.3 L Chloride 102 Carbon Dioxide 32.0 Anion Gap 2 L BUN 16 Creatinine 0.89 Estim Creat Clear Calc 43.20 Est GFR (MDRD) Af Amer 80 Est GFR (MDRD) Non-Af 66 BUN/Creatinine Ratio 18.0 Glucose 96 Calcium 9.5 - EKG Initial EKG Interpretation: Sinus Rhythm - Ventricular rate is 87. NC interval is 198 ms. QRS duration 84 ms. QT interval 386 ms. There is evidence of low voltage. [place] to the left. - Medical Decision Making With diminished breath sounds on the right suspect patient has reaccumulation of right pleural effusion. Chest x-ray was obtained to confirm and rule out pneumonia. Suspect patient's bilateral edema is secondary to the metastatic cancer and decreased activity. CBC was obtained to assess H&H. BMP was obtained to assess renal function and electrolytes. Patient wished to go home. She walked to the restroom and back and pulse ox dropped to 77%. In light of this patient will be admitted for thoracentesis and oxygen. Initial plan was outpatient follow-up with Dr. Gates. ED Disposition - Plan for ED Patient: Disposition: Acute Care Hospital [facility] Diagnosis: Hypoxia, Recurrent pleural effusion on right, Non-small cell lung cancer with metastasis Referrals: Harjinder Borjas MD [Primary Care Provider] -
[2019-05-12 13:10] LABS: Absolute Neutrophil Count 3.4 X10^3/uL (2.0-7.7); Basophil# 0.03 X10^3/uL; Basophil% 0.6 % (0-1); Eosinophil# 0.36 X10^3/uL; Eosinophils% 6.8 % (0-5); Hematocrit 31.3 % (37-47); Hemoglobin 9.8 g/dl (12.0-15.0); Mean Corp Hgb Conc 31.3 g/gl (32-36); Mean Corpuscular Hgb 30.2 pg (27.0-32.0); Mean Corpuscular Volume 96.6 fL (81-99); Mean Platelet Vol. 9.6 fl (6.2-12.0); Monocyte# 0.71 X10^3/uL; Monocyte% 13.3 % (0-10); Neutrophil # 3.41 X10^3/uL (2.7-7.7); Neutrophil % 64.1 % (47-70); Platelet Count 217 K/mm3 (150-450); RBC Distribution Width CV 17.8 % (11.6-14.6); RBC Distribution Width SD 63.5 fl (35.1-43.9); Red Blood Count 3.24 M/mm3 (4.2-5.4); White Blood Count 5.3 K/mm3 (4.4-11.0)
[2019-05-12 13:18] LABS: POSITIVE COUNT NO; POSITIVE DIFFERENTIAL NO; POSITIVE MORPHOLOGY NO
[2019-05-12 13:27] LABS: Anion Gap 2 (5-15); BUN 16 mg/dL (7-18); Calcium,Total 9.5 mg/dL (8.5-10.1); Chloride 102 mmol/L (98-107); Creatinine, Serum 0.89 mg/dL (0.55-1.02); EST Glomerular Filtration Rate 66 mL/min (>60); Est Glom Filt Rate - Afr Amer 80 mL/min (>60); Glucose 96 mg/dL (74-106); Potassium 3.3 mmol/L (3.5-5.1); Sodium Level 136 mmol/L (136-145)
--- NOTE | 2019-05-12 15:01 | ED.RN ---
PT UP WITH ASSIST TO BATHROOM. PT RETURNS BACK TO ROOM. THIS RN INTO ROOM. PT SOB. ROOM AIR SAT AT 79. GOOD WAVEFORM. O2 INITIATED AT [address] CARRILLO AWARE. PT TO BE admitted
[2019-05-12 15:03] VITALS: BP 157/83; PULSE 94; RESP 20; O2SAT 100
[2019-05-12 15:15] VITALS: BMI 40.8
--- NOTE | 2019-05-12 15:41 | HP.PCM_ITS ---
<Michael Cason - Last Filed: 05/12/19 15:41> Problem List (1) Pleural effusion, right Status: Acute (2) HTN (hypertension) Status: Chronic (3) Diabetes Status: Chronic Qualifiers: Diabetes mellitus type: type 2 Diabetes mellitus termination clerk insulin use: without termination clerk use (4) Hyperlipidemia associated with type 2 diabetes mellitus Status: Chronic (5) Hypothyroidism Status: Chronic (6) Mass of middle lobe of right lung Status: Chronic (7) Non-small cell carcinoma of right lung, stage 4 Status: Chronic History of Present Illness Date of Admission: 05/12/19 Chief Complaint: sob The patient is a 73 year old F with past medical history as above significant for stage IV non-small cell lung cancer currently being treated by Dr. Gates with Keytruda therapy, last dose April 25, 2019, with next dose planned May 16. She has also had associated pleural effusions with this requiring thoracentesis multiple times already, last drained 04/22/2019. Since this past week and she has become more short of breath and has increased lower extremity edema. She currently is resting comfortably in the ER on oxygen-she does not use this at home, at all. Chest x-ray demonstrates recurrence of pleural effusion. She is reluctantly agreeable to having this drained and a Pleurx catheter placed. She has no other acute issues at this time. She denies recent illness, fevers, infection, chest pain, tightness, heaviness, difficulty urinating, nausea or vomiting. [] Past Medical History Past Medical History (Chronic Problems): Chronic Problems (Last Reviewed 04/18/19 @ 10:01 by Rula Martinez) HTN (hypertension) (Chronic) Diabetes (Chronic) Hyperlipidemia associated with type 2 diabetes mellitus (Chronic) Morbid (severe) obesity due to excess calories (Chronic) Hypothyroidism (Chronic) Mass of middle lobe of right lung (Chronic) Non-small cell carcinoma of right lung, stage 4 (Chronic) Medical History: Medical History (Last Reviewed 04/18/19 @ 10:01 by Rula Martinez) Metastatic cancer (Suspected) C79.9 HTN (hypertension) (Chronic) I10 Diabetes (Chronic) E11.9 Back pain of thoracolumbar region (Acute) M54.5, M54.6 Hyperlipidemia associated with type 2 diabetes mellitus (Chronic) E11.69, E78.5 Morbid (severe) obesity due to excess calories (Chronic) E66.01 Hypothyroidism (Chronic) E03.9 Disseminated malignancy (Acute) C80.0 Pleural effusion, right (Acute) J90 Mass of middle lobe of right lung (Acute) R91.8 Non-small cell carcinoma of right lung, stage 4 (Chronic) C34.91 GERD (gastroesophageal reflux disease) K21.9 Hypothyroidism E03.9 L4-L5 decompression 2000 Peripheral neuropathy G62.9 port placement 12-30-18 Allergies codeine Adverse Reaction (Severe, Verified 05/12/19 12:06) Nausea/Vom/Diarrhea hydrocodone [From Vicodin] Adverse Reaction (Severe, Verified 05/12/19 12:06) Nausea/Vom/Diarrhea morphine Adverse Reaction (Severe, Verified 05/12/19 15:12) severe sedation lisinopril Adverse Reaction (Intermediate, Verified 05/12/19 12:06) cough Sulfa (Sulfonamide Antibiotics) Adverse Reaction (Intermediate, Verified 05/12/19 12:06) Unknown sulfamethoxazole [From Septra] Adverse Reaction (Intermediate, Verified 05/12/19 12:06) Unknown trimethoprim [From Julra] Adverse Reaction (Intermediate, Verified 05/12/19 12:06) Unknown Home Medications: Ambulatory Orders Medication Instructions Recorded Levothyroxine [Synthroid] 50 mcg PO DAILY 08/11/18 Multivit with Calcium,Iron,Min 1 each PO DAILY 08/11/18 [Multiple Vitamins For Women] Simvastatin [Zocor] 20 mg PO QHS 08/11/18 Oxycodone [Oxyir] 5 mg PO Q4H PRN PRN 12/09/18 Gabapentin [Neurontin] 300 mg PO BIDCM 12/13/18 Hydrochlorothiazide 12.5 mg PO DAILY 12/29/18 Oxybutynin [Ditropan] 5 mg PO TID #90 tablet 01/06/19 Folic Acid 1 mg PO DAILY 90 Days #90 tablet 02/28/19 Amitriptyline HCl [Elavil] 25 mg PO QHS #30 tablet 03/07/19 Pantoprazole Sodium [Protonix] 40 mg PO DAILY 30 Days #30 tablet 04/14/19 Ibuprofen 400 - 600 mg PO Q6H PRN PRN 05/12/19 Magnesium Citrate 296 ml PO DAILY PRN PRN 05/12/19 Magnesium Oxide 400 mg PO DAILY 05/12/19 Potassium Chloride [K-Dur] 20 meq PO BID 05/12/19 Surgical History: Surgical History (Last Reviewed 04/18/19 @ 10:01 by Rula Martinez) History of tonsillectomy Z90.89 Hx of cholecystectomy Z90.49 Hx of hemorrhoidectomy Z98.890 Surgical History: cholecystectomy, - Psychiatric History: No pertinent psych hx 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 Denies: Chest Pain, Chest Pressure, Chest Tightness, Heaviness, Light Headedness, Palpitations Respiratory: Reports: Shortness of Breath, Shortness of breath at rest, Shortness of breath upon exertion. Denies: Cough, Sputum production, Wheezing Gastrointestinal: Denies: Abdominal Pain, Diarrhea, Nausea, Vomiting Genitourinary: Denies: Dysuria Musculoskeletal: Denies: Joint Pain, Joint Tenderness Skin: Denies: Rash, Wounds Neurological: Denies: Numbness, Tingling, Focal weakness Psychiatric: Denies: Anxiety, Depression, Homicidal Ideations, Suicidal Ideations Hematologic/ Lymphatic: Denies: Easy Bruising, Easy Bleeding VTE Information - Inpt Only VTE Present on Admission: No VTE Mechan Device Prophylaxis: SCD's VTE Pharm Prophylaxis ordered?: No Patient Problems: Active and Suspected Problems (Last Reviewed 04/18/19 @ 10:01 by Rula Martinez) Hypoxia (Acute) Recurrent pleural effusion on right (Acute) Non-small cell lung cancer with metastasis (Acute) - Physical Exam General: Alert, Oriented x3, Cooperative HEENT: Atraumatic, PERRLA, EOMI, Normocephalic Neck: Supple, No JVD, Negative Carotid Bruits Lungs: Diminished, Rales Cardiovascular: Regular rate, No murmurs Abdomen: Bowel Sounds Present, Soft, Non Tender Extremities: Edema - 2+ pitting edema bilateral lower extremities Skin: No rashes, No breakdown Musculoskeletal: No Tenderness to Palpation of Joints or Extremities Neurological: Cranial nerves II-XII grossly intact Psych/Mental Status: Normal Affect, Appropriate Vital Signs Temp Pulse Resp BP Pulse Ox 97.7 F L 94 20 H 157/83 H 100 05/12/19 12:02 05/12/19 15:03 05/12/19 15:03 05/12/19 15:03 05/12/19 15:03 Oxygen Delivery Method Room Air Weight: 223 lb Body Mass Index (BMI) 40.8 Laboratory Tests Past 24 Hrs 05/12/19 05/12/19 12:55 12:55 WBC 5.3 RBC 3.24 L Hgb 9.8 L Hct 31.3 L MCV 96.6 MCH 30.2 MCHC 31.3 L RDW 17.8 H RDW Differential 63.5 H Plt Count 217 MPV 9.6 Immature Gran % (Auto) 0.200 Neut % (Auto) 64.1 Lymph % (Auto) 15.0 L [place] % (Auto) 13.3 H Eos % (Auto) 6.8 H Baso % (Auto) 0.6 Absolute Neuts (auto) 3.4 Absolute Lymphs (auto) 0.80 L Total Counted Not Reportable Sodium 136 Potassium 3.3 L Chloride 102 Carbon Dioxide 32.0 Anion Gap 2 L BUN 16 Creatinine 0.89 Estim Creat Clear Calc 43.20 Est GFR (MDRD) Af Amer 80 Est GFR (MDRD) Non-Af 66 BUN/Creatinine Ratio 18.0 Glucose 96 Calcium 9.5 Assessment/Plan All Active Problems (Last Reviewed 04/18/19 @ 10:01 by Rula Martinez) Educational circumstance (Acute) Chemotherapy management, encounter for (Acute) Constipation (Acute) Rash (Resolved) Hypomagnesemia (Acute) Hypokalemia (Acute) Epigastric pain (Acute) Pleural effusion (Acute) Hypoxia (Acute) Recurrent pleural effusion on right (Acute) Non-small cell lung cancer with metastasis (Acute) Back pain of thoracolumbar region (Acute) Disseminated malignancy (Acute) Pleural effusion, right (Acute) 1. Recurrent pleural effusion secondary to lung cancer-refer to IR for Pleurx catheter placement. 2. Stage IV non-small cell lung cancer-patient of currently on Keytruda therapy. Diagnosed this past November 11. Last Keytruda 04/25/2019, next 05/16/2019. 3. Hypokalemia-replete 4. Morbid obesity 5. hypertension-stable 6. Hyperlipidemia-statin 7. Hypothyroidism-Synthroid DVT prophylaxis: SCDs, defer anticoagulation given need for Pleurx cath DC planning-reevaluate after Pleurx cath placement, possibly home tomorrow This patient was seen by Michael Cason PA-C under the supervision of Doctor Leonie. <Cam Hadley - Last Filed: 05/12/19 16:28> Problem List (1) Pleural effusion Status: Acute History of Present Illness The patient is a 73 year old F presents with increasing shortness of breath over the past week. Patient presented to the emergency room and had a right pleural effusion, but she has had this previously and has had 2 other thoracenteses. Patient was then to get up and ambulate and dropped into pulse ox in the 70s. Decision was to bring patient in to get set of her oxygen but also to get definitive treatment for a thoracentesis and possible Pleurx catheter placement [] Past Medical History Medical History: Medical History (Last Reviewed 05/12/19 @ 16:22 by Cam Hadley DO) Metastatic cancer (Suspected) C79.9 HTN (hypertension) (Chronic) I10 Diabetes (Chronic) E11.9 Back pain of thoracolumbar region (Acute) M54.5, M54.6 Hyperlipidemia associated with type 2 diabetes mellitus (Chronic) E11.69, E78.5 Morbid (severe) obesity due to excess calories (Chronic) E66.01 Hypothyroidism (Chronic) E03.9 Disseminated malignancy (Acute) C80.0 Pleural effusion, right (Acute) J90 Mass of middle lobe of right lung (Chronic) R91.8 Non-small cell carcinoma of right lung, stage 4 (Chronic) C34.91 GERD (gastroesophageal reflux disease) K21.9 Hypothyroidism E03.9 L4-L5 decompression 2000 Peripheral neuropathy G62.9 port placement 12-30-18 Allergies codeine Adverse Reaction (Severe, Verified 05/12/19 12:06) Nausea/Vom/Diarrhea hydrocodone [From Vicodin] Adverse Reaction (Severe, Verified 05/12/19 12:06) Nausea/Vom/Diarrhea morphine Adverse Reaction (Severe, Verified 05/12/19 15:12) severe sedation lisinopril Adverse Reaction (Intermediate, Verified 05/12/19 12:06) cough Sulfa (Sulfonamide Antibiotics) Adverse Reaction (Intermediate, Verified 05/12/19 12:06) Unknown sulfamethoxazole [From Septra] Adverse Reaction (Intermediate, Verified 05/12/19 12:06) Unknown trimethoprim [From Septra] Adverse Reaction (Intermediate, Verified 05/12/19 12:06) Unknown Surgical History: Surgical History (Last Reviewed 05/12/19 @ 16:22 by Cam Hadley DO) History of tonsillectomy Z90.89 Hx of cholecystectomy Z90.49 Hx of hemorrhoidectomy Z98.890 Surgical History: cholecystectomy, - Psychiatric History: No pertinent psych hx 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[employer]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 Denies: Cough, Sputum production, Wheezing Gastrointestinal: Denies: Abdominal Pain, Diarrhea, Nausea, Vomiting Genitourinary: Denies: Dysuria Musculoskeletal: Denies: Joint Pain, Joint Tenderness Skin: Denies: Rash, Wounds Neurological: Denies: Focal weakness, Numbness, Tingling Psychiatric: Denies: Anxiety, Depression, Homicidal Ideations, Suicidal Ideations Hematologic/ Lymphatic: Denies: Easy Bruising, Easy Bleeding VTE Information - Inpt Only VTE Present on Admission: No VTE Mechan Device Prophylaxis: SCD's VTE Pharm Prophylaxis ordered?: No - Physical Exam General: Alert, Oriented x3, Cooperative, No apparent distress, - - No respiratory distress. No conversational dyspnea. HEENT: Atraumatic, Normocephalic Oral: Moist Mucosa, No Gingival or Mucosal Lesions/ Ulcerations Lungs: Diminished, - - Dullness to percussion in the right lower lobe. No crackles Cardiovascular: Regular rate, Regular Rhythm, Normal S1, Normal S2, No murmurs Abdomen: Bowel Sounds Present, Soft, Non Tender, Non-Distended Extremities: Edema Skin: No rashes, No breakdown Musculoskeletal: No Tenderness to Palpation of Joints or Extremities Neurological: Neuro grossly intact, - - No clonus Psych/Mental Status: Normal Affect, Appropriate Vital Signs Temp Pulse Resp BP Pulse Ox 36.5 C L 94 18 133/94 H 100 05/12/19 12:02 05/12/19 15:56 05/12/19 15:56 05/12/19 15:56 05/12/19 15:56 Oxygen Delivery Method Room Air Weight: 101.151 kg Body Mass Index (BMI) 40.8 Laboratory Tests Past 24 Hrs 05/12/19 05/12/19 12:55 12:55 WBC 5.3 RBC 3.24 L Hgb 9.8 L Hct 31.3 L MCV 96.6 MCH 30.2 MCHC 31.3 L RDW 17.8 H RDW Differential 63.5 H Plt Count 217 MPV 9.6 Immature Gran % (Auto) 0.200 Neut % (Auto) 64.1 Lymph % (Auto) 15.0 L [place] % (Auto) 13.3 H Eos % (Auto) 6.8 H Baso % (Auto) 0.6 Absolute Neuts (auto) 3.4 Absolute Lymphs (auto) 0.80 L Total Counted Not Reportable Sodium 136 Potassium 3.3 L Chloride 102 Carbon Dioxide 32.0 Anion Gap 2 L BUN 16 Creatinine 0.89 Estim Creat Clear Calc 43.20 Est GFR (MDRD) Af Amer 80 Est GFR (MDRD) Non-Af 66 BUN/Creatinine Ratio 18.0 Glucose 96 Calcium 9.5 Chest x-ray personally reviewed and shows right lower lobe pleural effusion slightly worse than on April 22. Assessment/Plan Patient seen and examined independently. Reviewed data as well as documentation by the physician occupational therapist's assistant and agree with all components except for otherwise indicated. 1. Recurrent pleural effusion, right * Exudative and presumed malignant * Patient had a cytology done has been negative for malignant cells but is been profoundly exudative and presumed malignant given her known history of metastatic non-small lung cancer * Given that it is recurrent patient has had previous thoracenteses, the plan is to repeat thoracentesis but also have a Pleurx catheter placed * Patient advised that this is strictly palliative. Patient also informed that possible the catheter could be removed at later point but no imminent plans for that to be done so. 2. Acute hypoxic respiratory insufficiency * Pulse ox dropped down into the 70s while in the emergency room * Will need an amatory pulse ox and oxygen therapy at home. 3. Stage IV non-small cell lung cancer * Follow-up with Dr. Gates as outpt. 4. VTE prophylaxis: Given that patient is only observation, patient is moderate risk given her active malignancy. Will place SCDs. Holding off on chemical prophylaxis given the impending procedure on the . Code Visit OBSV E&M: [id number] Initial observation care L3
[2019-05-12 15:47] VITALS: BMI 40.8
--- NOTE | 2019-05-12 15:49 | CASEMGMT ---
RN CM Assessment Introduced role of RN CM to patient and patient granddaughter at bedside.? Patient is alert, oriented and able?to participate in RN CM Assessment. ?Care providers, pharmacy, and demographics verified. Presentation: Bilt lower extremity selling, SOB started Thursday, Dyspnea on exertion. H/o Stage IV metastatic Lung CA to Bone. S/p spinal stabilization & fusion s/t Pathologic Fx of dorsal Spine Mult. levels. Had Arthrocentesis performed x2 weeks ago. Admit Dx: Re-Admit: No Barriers/Issues: None PCP: Harjinder Borjas Specialists: Onc- Dr Gates Preferred Pharmacy: [facility] Insurance: [employer] [place] [employer] Rx Benefit:?Yes LNOK: Kin Ruth LW/HPOA: Yes Both, thought they were on file. HPOA- Kin Ruth, Alternative agents are her daughters. Living Arrangements:?Lives with her in a 2 story home, Bedroom on lower level, 3 steps to enter. ADL?s: Ambulates with a cane, uses walker if she is in a hurry. Independent with ADL's except bathing. Dtr Nikki assists on Wednesdays and Dtr Annita assists on Sundays. Transportation: Granddaughters transport and will upon DC DME: Shower Chair, Cane, Walker HHC: Past, cannot recall agency. SNF: Past- [facility] Goal: Home, does not think will need anything but unsure depending on what happens in the hospital. Denies questions or concerns. Aware CM remains available for any emerging needs. DC PLAN: Per plan by admitting physician- tomorrow will get thoracentesis and PleurX Cath placed. Anticipated on DC: Possible Home O2 if O2 sats not improving, HH for Teaching/Reinforcing Cath Draining. DUSTY Thurston
[2019-05-12 15:56] VITALS: BP 133/94; PULSE 94; RESP 18; O2SAT 100
[2019-05-12] MEDS: Gabapentin 300 MG Capsule PO (17:02)
[2019-05-12 20:21] VITALS: BP 134/53; PULSE 94; RESP 18; TEMP 36.4; O2SAT 99
[2019-05-12] MEDS: Atorvastatin Calcium 10 MG Tablet PO (22:08)
[2019-05-12] MEDS: Amitriptyline 25 MG Tablet PO (22:08)
[2019-05-12] MEDS: Oxybutynin 5 MG Tablet PO (22:08)
[2019-05-13] VITALS (9 sets, daily range): BP systolic 109–149; BP diastolic 48–77; PULSE 88–102; RESP 16–20; TEMP 36.6–36.8; O2SAT 92–100
[2019-05-13] MEDS: Levothyroxine 50 MCG Tablet PO (06:12)
[2019-05-13] MEDS: Oxybutynin 5 MG Tablet PO ×2 (06:12→14:50)
[2019-05-13 06:26] LABS: International Normalized Ratio 1.1
[2019-05-13 06:27] LABS: Partial Thromboplast Time 33.9 Seconds (24.1-36.2)
[2019-05-13] MEDS: Gabapentin 300 MG Capsule PO (08:22)
[2019-05-13] MEDS: Folic Acid 1 MG Tablet PO (08:22)
--- NOTE | 2019-05-13 09:49 | PCM.PN.HOSP ---
Patient Problems: Active and Suspected Problems (Last Reviewed 05/12/19 @ 16:22 by Cam Hadley DO) Hypoxia (Acute) Recurrent pleural effusion on right (Acute) Non-small cell lung cancer with metastasis (Acute) Subjective: Although, the patient initially refused for thoracocentesis and gets more painful. I tried to convince her we need fluid sample for cytology and evidence of malignant effusion prior to Pleurx catheter. She also requested for surgical opinion for Pleurx catheter. Vitals/I&O's: Vital Signs Temp Pulse Resp BP Pulse Ox 97.8 F 96 18 124/62 H 92 05/13/19 07:53 05/13/19 07:53 05/13/19 07:53 05/13/19 07:53 05/13/19 07:53 Oxygen Flow Rate (L/min) 2 Oxygen Delivery Method Room Air Weight: 222 lb 15.996 oz Body Mass Index (BMI) 40.8 Intake and Output for Last 24 Hours 05/11/19 05/12/19 05/13/19 23:59 23:59 23:59 Intake Total 120 / 420 550 / 550 Balance 120 / 420 550 / 550 General: Alert, Oriented x3, Cooperative HEENT: Atraumatic, PERRLA, EOMI, Normocephalic Neck: Supple, No JVD, Negative Carotid Bruits Lungs: No rhonchi, No wheeze, No rales, Diminished - air entry is diminished on lower half of right lung, below fourth intercostal space., Short of Breath - On exertion Cardiovascular: Regular rate, Regular Rhythm, Normal S1, Normal S2, No murmurs Abdomen: Bowel Sounds Present, Soft, Non Tender, Non-Distended Extremities: Capillary Refill Less than 3 Seconds, Edema Skin: No rashes, No breakdown Musculoskeletal: No Tenderness to Palpation of Joints or Extremities, Arthritic Changes Neurological: Cranial nerves II-XII grossly intact Psych/Mental Status: Normal Affect, Appropriate Laboratory Results 05/12/19 12:55: WBC 5.3, RBC 3.24 L, Hgb 9.8 L, Hct 31.3 L, MCV 96.6, MCH 30.2, MCHC 31.3 L, RDW 17.8 H, RDW Differential 63.5 H, Plt Count 217, MPV 9.6, Immature Gran % (Auto) 0.200, Neut % (Auto) 64.1, Lymph % (Auto) 15.0 L, [place] % (Auto) 13.3 H, Eos % (Auto) 6.8 H, Baso % (Auto) 0.6, Absolute Neuts (auto) 3.4, Absolute Lymphs (auto) 0.80 L, Total Counted Not Reportable 05/12/19 12:55: Sodium 136, Potassium 3.3 L, Chloride 102, Carbon Dioxide 32.0, Anion Gap 2 L, BUN 16, Creatinine 0.89, Estim Creat Clear Calc 43.20, Est GFR (MDRD) Af Amer 80, Est GFR (MDRD) Non-Af 66, BUN/Creatinine Ratio 18.0, Glucose 96, Calcium 9.5 05/13/19 06:10: PT 14.0, INR 1.1, APTT 33.9 Current Medications Acetaminophen (Tylenol) 650 mg PO Q6H PRN PRN PRN Reason: Mild Pain (1-3)/Temp > 100.7 F Amitriptyline HCl (Elavil) 25 mg PO QHS [facility] Last Admin: 05/12/19 22:08 Dose: 25 mg Documented by: Atorvastatin Calcium (Lipitor) 10 mg PO QHS [facility] Last Admin: 05/12/19 22:08 Dose: 10 mg Documented by: Folic Acid (Folic Acid) 1 mg PO DAILY@0800 [facility] Last Admin: 05/13/19 08:22 Dose: 1 mg Documented by: Gabapentin (Neurontin) 300 mg PO BIDCM [facility] Last Admin: 05/13/19 08:22 Dose: 300 mg Documented by: Heparin Sodium (Beef Lung) () 50 units IV UD PRN PRN Reason: HEPARIN FLUSH Hydrochlorothiazide () 12.5 mg PO DAILY [facility] Levothyroxine Sodium (Synthroid) 50 mcg PO DAILY@0600 [facility] Last Admin: 05/13/19 06:12 Dose: 50 mcg Documented by: Magnesium Citrate (Citrate Of Magnesia) 300 ml PO DAILY PRN PRN Reason: CONSTIPATION Magnesium Oxide (Mag-Ox 400) 400 mg PO DAILY [facility] Multivitamins (Multivitamin) 1 tablet PO DAILY@1200 [facility] Ondansetron HCl (Zofran) 4 mg IV Q8H PRN PRN PRN Reason: NAUSEA/VOMITING Oxybutynin Chloride (Ditropan) 5 mg PO TID [facility] Last Admin: 05/13/19 06:12 Dose: 5 mg Documented by: Oxycodone HCl (Oxyir) 5 mg PO Q4H PRN PRN PRN Reason: PAIN Pantoprazole Sodium (Protonix) 40 mg PO DAILY [facility] Potassium Chloride (K-Dur) 20 meq PO BIDCM [facility] Last Admin: 05/13/19 08:22 Dose: 20 meq Documented by: Sodium Chloride () 10 - 40 ml IV UD PRN PRN Reason: VAD FLUSH Medical Necessity - Tobacco Use Smoking Status: Former smoker Assessment/Plan All Active Problems (Last Reviewed 05/12/19 @ 16:22 by Cam Hadley DO) Educational circumstance (Acute) Chemotherapy management, encounter for (Acute) Constipation (Acute) Rash (Resolved) Hypomagnesemia (Acute) Hypokalemia (Acute) Epigastric pain (Acute) Pleural effusion (Acute) Hypoxia (Acute) Recurrent pleural effusion on right (Acute) Non-small cell lung cancer with metastasis (Acute) Back pain of thoracolumbar region (Acute) Disseminated malignancy (Acute) Pleural effusion, right (Acute)
[2019-05-13] MEDS: Pantoprazole Sodium 40 MG Tablet PO (09:58)
[2019-05-13] MEDS: hydroCHLOROthiazide 12.5mg 12.5 MG PO (09:58)
[2019-05-13] MEDS: Magnesium Oxide 400 MG Tablet PO (09:59)
[2019-05-13] MEDS: Multivitamins,Therapeutic Tablet 1 TABLET PO (12:08)
--- NOTE | 2019-05-13 13:45 | RAD_ITS ---
STUDY: X-RAY CHEST REASON FOR EXAM: Female, 73 years old. TECHNIQUE: 1 view COMPARISON: May 12, 2019. FINDINGS: This study of the chest was done after left thoracentesis. There is still noted the mild pleural effusion on the right side definitely less than seen previously before. The cardiac silhouette is mildly enlarged. The upper lung delong are clear. A Port-A-Cath is present with the tip in the superior vena cava Hardware is noted fixing the spine. RAD/Chest Insp/Exp 2 View IMPRESSION: Reduction in the amount of pleural effusion but not yet disappeared completely. Electronically Signed: Jeb Keith, at 14:04 EDT Tel , Service support ,
--- NOTE | 2019-05-13 14:26 | PN_ITS ---
<Michael Cason - Last Filed: 05/13/19 14:26> Subjective: Patient notes improvement in her shortness of breath, dry cough, no chest pain tightness or heaviness. No dysuria, difficulty emptying, urgency or burning, no fevers or chills. Patient is agreeable to thoracentesis today with outpatient follow-up with Dr. Jones for possible Pleurx catheter placement. I discussed this with Dr. London who discussed it with Dr. Barrett as well and they are agreeable with the plan. - Physical Exam General: Alert, Oriented x3, Cooperative HEENT: Atraumatic, PERRLA, EOMI, Normocephalic Neck: Supple, No JVD, Negative Carotid Bruits Lungs: No rales, Diminished Cardiovascular: Regular rate, No murmurs Abdomen: Bowel Sounds Present, Soft, Non Tender Extremities: No edema, Capillary Refill Less than 3 Seconds Skin: No rashes, No breakdown Musculoskeletal: No Tenderness to Palpation of Joints or Extremities Neurological: Cranial nerves II-XII grossly intact Psych/Mental Status: Normal Affect, Appropriate, Alert and oriented to time, place, person, mood and affect Vital Signs Temp Pulse Resp BP Pulse Ox 98.3 F 92 18 120/72 100 05/13/19 14:14 05/13/19 14:14 05/13/19 14:14 05/13/19 14:14 05/13/19 14:14 Oxygen Flow Rate (L/min) [8] 2 Oxygen Flow Rate (L/min) [7] 2 Oxygen Flow Rate (L/min) [6] 2 Oxygen Flow Rate (L/min) [5] 2 Oxygen Flow Rate (L/min) [4] 2 Oxygen Flow Rate (L/min) [3] 2 Oxygen Flow Rate (L/min) [2] 2 Oxygen Flow Rate (L/min) [1 ( 2 Initial Baseline)] Oxygen Flow Rate (L/min) 2 Oxygen Delivery Method [8] Nasal Cannula Oxygen Delivery Method [7] Nasal Cannula Oxygen Delivery Method [6] Nasal Cannula Oxygen Delivery Method [5] Nasal Cannula Oxygen Delivery Method [4] Nasal Cannula Oxygen Delivery Method [3] Nasal Cannula Oxygen Delivery Method [2] Nasal Cannula Oxygen Delivery Method [1 ( Nasal Cannula Initial Baseline)] Oxygen Delivery Method Nasal Cannula Weight: 222 lb 15.996 oz Body Mass Index (BMI) 40.8 Intake and Output for Last 24 Hours 05/11/19 05/12/19 05/13/19 23:59 23:59 23:59 Intake Total 120 / 420 1050 / 1050 Balance 120 / 420 1050 / 1050 Laboratory Tests Past 24 Hrs 05/13/19 06:10 PT 14.0 INR 1.1 APTT 33.9 Medical Necessity - Tobacco Use Smoking Status: Former smoker Assessment/Plan All Active Problems (Last Reviewed 05/12/19 @ 16:22 by Cam Hadley DO) Educational circumstance (Acute) Chemotherapy management, encounter for (Acute) Constipation (Acute) Rash (Resolved) Hypomagnesemia (Acute) Hypokalemia (Acute) Epigastric pain (Acute) Pleural effusion (Acute) Hypoxia (Acute) Recurrent pleural effusion on right (Acute) Non-small cell lung cancer with metastasis (Acute) Back pain of thoracolumbar region (Acute) Disseminated malignancy (Acute) Pleural effusion, right (Acute) 1. Recurrent pleural effusion secondary to lung cancer-thora today. F/u Gen surgery Dr. Barrett for possible arrangement for pleuryx cath placement. Reviewed fluid studies from 11/12/2018 (initial thora)- exudative per lights criteria. Last thora earlier this month. 2. Stage IV non-small cell lung cancer-patient of currently on Keytruda therapy. Diagnosed this past November 11. Last Keytruda 04/25/2019, next 05/16/2019. 3. Hypokalemia-repleted 4. Morbid obesity 5. hypertension-stable 6. Hyperlipidemia-statin 7. Hypothyroidism-Synthroid DVT prophylaxis: SCDs, defer anticoagulation given need for Pleurx cath DC planning-will re eval after thora. This patient was seen by Michael Cason PA-C under the supervision of Doctor Jaciel <Stephen Grissom - Last Filed: 05/14/19 17:53> Subjective: Although, the patient initially refused for thoracocentesis and gets more painful. I tried to convince her we need fluid sample for cytology and evidence of malignant effusion prior to Pleurx catheter. She also requested for surgical opinion for Pleurx catheter. Objective: General: Alert, Oriented x3, Cooperative HEENT: Atraumatic, PERRLA, EOMI, Normocephalic Neck: Supple, No JVD, Negative Carotid Bruits Lungs: No rhonchi, No wheeze, No rales, Air entry is diminished on lower half of right lung, below fourth intercostal space., Short of Breath - On exertion Cardiovascular: Regular rate, Regular Rhythm, Normal S1, Normal S2, No murmurs Abdomen: Bowel Sounds Present, Soft, Non Tender, Non-Distended Extremities: Capillary Refill Less than 3 Seconds, Edema Skin: No rashes, No breakdown Musculoskeletal: No Tenderness to Palpation of Joints or Extremities, Arthritic Changes Neurological: Cranial nerves II-XII grossly intact Psych/Mental Status: Normal Affect, Appropriate - Physical Exam General: Alert, Oriented x3, Cooperative HEENT: Atraumatic, PERRLA, EOMI, Normocephalic Neck: Supple, No JVD, Negative Carotid Bruits Lungs: No rhonchi, No wheeze, No rales, Diminished - Air entry diminished on right side with moderate to severe right pleural effusion Cardiovascular: Regular rate, Regular Rhythm, Normal S2, No murmurs Abdomen: Bowel Sounds Present, Soft, Non Tender, Non-Distended Extremities: No edema, Capillary Refill Less than 3 Seconds Skin: No rashes, No breakdown Musculoskeletal: No Tenderness to Palpation of Joints or Extremities, Arthritic Changes, Muscle Wasting Neurological: Cranial nerves II-XII grossly intact Psych/Mental Status: Normal Affect, Appropriate Vital Signs Temp Pulse Resp BP Pulse Ox 98.3 F 92 18 120/72 100 05/13/19 14:14 05/13/19 14:14 05/13/19 14:14 05/13/19 14:14 05/13/19 14:14 Oxygen Flow Rate (L/min) [8] 2 Oxygen Flow Rate (L/min) [7] 2 Oxygen Flow Rate (L/min) [6] 2 Oxygen Flow Rate (L/min) [5] 2 Oxygen Flow Rate (L/min) [4] 2 Oxygen Flow Rate (L/min) [3] 2 Oxygen Flow Rate (L/min) [2] 2 Oxygen Flow Rate (L/min) [1 ( 2 Initial Baseline)] Oxygen Flow Rate (L/min) 2 Oxygen Delivery Method [8] Nasal Cannula Oxygen Delivery Method [7] Nasal Cannula Oxygen Delivery Method [6] Nasal Cannula Oxygen Delivery Method [5] Nasal Cannula Oxygen Delivery Method [4] Nasal Cannula Oxygen Delivery Method [3] Nasal Cannula Oxygen Delivery Method [2] Nasal Cannula Oxygen Delivery Method [1 ( Nasal Cannula Initial Baseline)] Oxygen Delivery Method Nasal Cannula Weight: 222 lb 15.996 oz Body Mass Index (BMI) 40.8 Intake and Output for Last 24 Hours 05/11/19 05/12/19 05/13/19 23:59 23:59 23:59 Intake Total 120 / 420 1050 / 1050 Balance 120 / 420 1050 / 1050 Laboratory Tests Past 24 Hrs 05/13/19 06:10 PT 14.0 INR 1.1 APTT 33.9 Assessment/Plan This patient was seen in conjunction with Michael ROSS. I have independently interviewed and examined the patient and reviewed pertinent history, examination findings, laboratory and plan of management. I have reviewed the note and agree with the documented findings with the few additional points. In brief, This IS 73-year-old female with history of stage IV non- small cell lung cancer on Keytruda by Dr. Gates, last dose April 25, 2019 admitted with recurrent pleural effusion. Patient had last thoracocentesis done on 04/25/2019 and prior to that in October 2018. She has been feeling short of breath on exertion for past 3 to 4 days with increased lower extremity edema. 1. Recurrent pleural effusion, right. Prior thoracocentesis October 2018 with immunohistochemistry in April 2019 are negative for malignant cells. * Exudative and presumed malignant. * Scheduled for thoracocentesis today. * Patient wanted pleurex catheter 2. Acute hypoxic respiratory insufficiency * Pulse ox was dropped to 70s while in the emergency room * 100% on 2 L of oxygen 3. Stage IV non-small cell lung cancer * Follow-up with Dr. Gates as outpt. Mild hypokalemia: Potassium being replaced 4. VTE prophylaxis: Bilateral SCDs. Hold pharmacological agent for the procedure I have discussed my assessment with Michael ROSS and orders have been reviewed.
--- NOTE | 2019-05-13 15:45 | DCINST_ITS ---
- Discharge Diagnoses Current Active Problems: Current Active and Chronic Problems (Last Reviewed 05/12/19 @ 16:22 by Cam Hadley DO) Hypoxia (Acute) Recurrent pleural effusion on right (Acute) Non-small cell lung cancer with metastasis (Acute) You will use the following diet at home:: No restrictions Your food should be the consistency of: Regular Your liquids should be the consistency of: Regular/Thin Discharge Activity: Return to Normal Activity Allergies/Adverse Reactions: Allergies codeine Adverse Reaction (Severe, Verified 05/12/19 12:06) Nausea/Vom/Diarrhea hydrocodone [From Vicodin] Adverse Reaction (Severe, Verified 05/12/19 12:06) Nausea/Vom/Diarrhea morphine Adverse Reaction (Severe, Verified 05/12/19 15:12) severe sedation lisinopril Adverse Reaction (Intermediate, Verified 05/12/19 12:06) cough Sulfa (Sulfonamide Antibiotics) Adverse Reaction (Intermediate, Verified 05/12/19 12:06) Unknown sulfamethoxazole [From Septra] Adverse Reaction (Intermediate, Verified 05/12/19 12:06) Unknown trimethoprim [From Julra] Adverse Reaction (Intermediate, Verified 05/12/19 12:06) Unknown Medications to take at Discharge Levothyroxine [Synthroid] 50 mcg PO DAILY 08/11/18 Multivit with Calcium,Iron,Min [Multiple Vitamins For Women] 1 each PO DAILY 08/11/18 Simvastatin [Zocor] 20 mg PO QHS 08/11/18 Oxycodone [Oxyir] 5 mg PO Q4H PRN PRN 12/09/18 Gabapentin [Neurontin] 300 mg PO BIDCM 12/13/18 Hydrochlorothiazide 12.5 mg PO DAILY 12/29/18 Oxybutynin [Ditropan] 5 mg PO TID #90 tablet 01/06/19 Folic Acid 1 mg PO DAILY 90 Days #90 tablet 02/28/19 Amitriptyline HCl [Elavil] 25 mg PO QHS #30 tablet 03/07/19 Pantoprazole Sodium [Protonix] 40 mg PO DAILY 30 Days #30 tablet 04/14/19 Ibuprofen 400 - 600 mg PO Q6H PRN PRN 05/12/19 Magnesium Citrate 296 ml PO DAILY PRN PRN 05/12/19 Magnesium Oxide 400 mg PO DAILY 05/12/19 Potassium Chloride [K-Dur] 20 meq PO BID 05/12/19 Primary Care Physician: Harjinder Borjas MD [Primary Care Provider] - Please follow up with your Primary Care Physician in: 3-4 weeks Test Results: Test results from this visit will be discussed in further detail at your follow- up appointment, if applicable. Please Follow Up With: Lalo Barrett MD When: 5-7 days Please Follow Up With: Arthur Gates MD When: as directed Proposed Discharge Date: 05/13/19
--- NOTE | 2019-05-13 15:46 | DS.PCM_ITS ---
<Michael Cason - Last Filed: 05/13/19 15:46> Discharge Date and Diagnosis - Problem List Patient Problems: Active and Suspected Problems (Last Reviewed 05/12/19 @ 16:22 by Cam Hadley DO) Hypoxia (Acute) Recurrent pleural effusion on right (Acute) Non-small cell lung cancer with metastasis (Acute) Date of Admission: 05/12/19 Date of Discharge: 05/13/19 - Primary Discharge Diagnosis Active and Suspected Problems (Last Reviewed 05/12/19 @ 16:22 by Cam Hadley DO) Recurrent exudative pleural effusion NSCLC, stage 4, mets to spine Hypokalemia HTN HLD Morbid obesity Hypothyroidism - Secondary Discharge Diagnosis Chronic Problems (Last Reviewed 05/12/19 @ 16:22 by Cam Hadley DO) HTN (hypertension) (Chronic) Diabetes (Chronic) Hyperlipidemia associated with type 2 diabetes mellitus (Chronic) Morbid (severe) obesity due to excess calories (Chronic) Hypothyroidism (Chronic) Mass of middle lobe of right lung (Chronic) Non-small cell carcinoma of right lung, stage 4 (Chronic) Hospital Course and Treatment Imaging Results: RAD/Chest PA and Lateral IMPRESSION: Moderate right-sided pleural effusion underlying infiltrate in the right base cannot be ruled out. RAD/Chest Insp/Exp 2 View IMPRESSION: Reduction in the amount of pleural effusion but not yet disappeared completely. 05/13/19 16:28 Thoracentesis W US [US] Routine 550 cc removed Operations: None Procedures: None Summary of Care Provided: Hospital Course: The patient is a 73 year old F with pmhx as above notably diagnosed 10/2019 with NSCLC, at that time had a thoracentesis c/w exudative effusion and since has been treated with chemo/immunologic therapy per Dr. Raman. She is now on keytruda therapy only with last dose 04/25/2019. She had a recurrence of the pleural effusion requiring thoracentesis 04/22/2019. She presented to the ER with SOB and was found to have a moderate right, recurrent, pleural effusion. She was admitted for palliative drainage. The next day she underwent a thoracentesis and 550 cc were removed. I discussed her case with Dr. Lonodn as she has seen Dr. Barrett in the past, with regards to her possibly benefitting from a pleuryx cath placement. She felt that it was unlikely that a pleuryx could be placed today, and recommended proceeding with the thoracentesis today, and following up with Dr. Barrett to arrange for a pleuryx cath. The patient was agreeable. After her thora she was ambulated and did not require O2. She was discharged home in stable condition. Follow up with Dr. Barrett in 5-7 days, Oncology as directed, and PCP in 3-4 weeks. This patient was seen by Michael Cason PA-C under the supervision of Dr. Grissom. [] Patient Problems: Active and Suspected Problems (Last Reviewed 05/12/19 @ 16:22 by Cam Hadley DO) Hypoxia (Acute) Recurrent pleural effusion on right (Acute) Non-small cell lung cancer with metastasis (Acute) - Physical Exam General: Alert, Oriented x3, Cooperative HEENT: Atraumatic, PERRLA, EOMI, Normocephalic Neck: Supple, No JVD, Negative Carotid Bruits Lungs: No rales, Diminished Cardiovascular: Regular rate, No murmurs Abdomen: Bowel Sounds Present, Soft, Non Tender, Obese Extremities: No edema, Capillary Refill Less than 3 Seconds Skin: No rashes, No breakdown Musculoskeletal: No Tenderness to Palpation of Joints or Extremities Neurological: Cranial nerves II-XII grossly intact Psych/Mental Status: Normal Affect, Appropriate, Alert and oriented to time, place, person, mood and affect Vital Signs Temp Pulse Resp BP Pulse Ox 98.3 F 92 18 120/72 100 05/13/19 14:14 05/13/19 14:14 05/13/19 14:14 05/13/19 14:14 05/13/19 14:14 Oxygen Flow Rate (L/min) [8] 2 Oxygen Flow Rate (L/min) [7] 2 Oxygen Flow Rate (L/min) [6] 2 Oxygen Flow Rate (L/min) [5] 2 Oxygen Flow Rate (L/min) [4] 2 Oxygen Flow Rate (L/min) [3] 2 Oxygen Flow Rate (L/min) [2] 2 Oxygen Flow Rate (L/min) [1 ( 2 Initial Baseline)] Oxygen Flow Rate (L/min) 2 Oxygen Delivery Method [8] Nasal Cannula Oxygen Delivery Method [7] Nasal Cannula Oxygen Delivery Method [6] Nasal Cannula Oxygen Delivery Method [5] Nasal Cannula Oxygen Delivery Method [4] Nasal Cannula Oxygen Delivery Method [3] Nasal Cannula Oxygen Delivery Method [2] Nasal Cannula Oxygen Delivery Method [1 ( Nasal Cannula Initial Baseline)] Oxygen Delivery Method Nasal Cannula Weight: 222 lb 15.996 oz Body Mass Index (BMI) 40.8 Intake and Output for Last 24 Hours 05/11/19 05/12/19 05/13/19 23:59 23:59 23:59 Intake Total 120 / 420 1050 / 1050 Balance 120 / 420 1050 / 1050 Laboratory Tests Past 24 Hrs 05/13/19 06:10 PT 14.0 INR 1.1 APTT 33.9 Discharge Diet: No Restrictions Discharge Activity: Return to Normal Activity Home Medications: Medications to take at Discharge Levothyroxine [Synthroid] 50 mcg PO DAILY 08/11/18 Multivit with Calcium,Iron,Min [Multiple Vitamins For Women] 1 each PO DAILY 08/11/18 Simvastatin [Zocor] 20 mg PO QHS 08/11/18 Oxycodone [Oxyir] 5 mg PO Q4H PRN PRN 12/09/18 Gabapentin [Neurontin] 300 mg PO BIDCM 12/13/18 Hydrochlorothiazide 12.5 mg PO DAILY 12/29/18 Oxybutynin [Ditropan] 5 mg PO TID #90 tablet 01/06/19 Folic Acid 1 mg PO DAILY 90 Days #90 tablet 02/28/19 Amitriptyline HCl [Elavil] 25 mg PO QHS #30 tablet 03/07/19 Pantoprazole Sodium [Protonix] 40 mg PO DAILY 30 Days #30 tablet 04/14/19 Ibuprofen 400 - 600 mg PO Q6H PRN PRN 05/12/19 Magnesium Citrate 296 ml PO DAILY PRN PRN 05/12/19 Magnesium Oxide 400 mg PO DAILY 05/12/19 Potassium Chloride [K-Dur] 20 meq PO BID 05/12/19 Primary Care Physician: Harjinder Borjas MD [Primary Care Provider] - Please follow up with your Primary Care Physician in: 3-4 weeks Please Follow Up With: Lalo Barrett MD When: 5-7 days Please Follow Up With: Arthur Raman MD When: as directed Disposition: Home Minutes spent on discharge:: 35 Patient Condition:: Stable Medical Necessity - Tobacco Use Smoking Status: Former smoker Meaningful Use Info Meaningful Use Diagnoses (Choose all that apply): None applicable <JacielStephen - Last Filed: 05/13/19 16:18> Discharge Date and Diagnosis - Primary Discharge Diagnosis Active and Suspected Problems (Last Reviewed 05/12/19 @ 16:22 by Cam Hadley DO) Hypoxia (Acute) Recurrent pleural effusion on right (Acute) Non-small cell lung cancer with metastasis (Acute) - Secondary Discharge Diagnosis Chronic Problems (Last Reviewed 05/12/19 @ 16:22 by Cam Hadley DO) HTN (hypertension) (Chronic) Diabetes (Chronic) Hyperlipidemia associated with type 2 diabetes mellitus (Chronic) Morbid (severe) obesity due to excess calories (Chronic) Hypothyroidism (Chronic) Mass of middle lobe of right lung (Chronic) Non-small cell carcinoma of right lung, stage 4 (Chronic) Hospital Course and Treatment Imaging Results: 05/13/19 13:45 Chest Insp/Exp 2 View [RAD] Stat 05/13/19 16:28 Thoracentesis W US [US] Routine Summary of Care Provided: This patient was seen in conjunction with Michael ROSS. I have independently interviewed and examined the patient and reviewed pertinent history, examination findings, laboratory and plan of management. I have reviewed the note and agree with the documented findings with the few additional points. In brief, This is 73-year-old female with history of stage IV non- small cell lung cancer on Keytruda by Dr. Raman, last dose April 25, 2019 admitted with recurrent pleural effusion. Patient had last thoracocentesis done on 04/25/2019 and prior to that in October 2018. She has been feeling short of breath on exertion for past 3 to 4 days with increased lower extremity edema. The patient prior thoracocentesis in October 2018 with immunohistochemistry and April 2019 were negative for malignant cells. It is exudative in nature and most likely malignant effusion in view of recurrent pleural effusion, as reflled right side in 2 weeks time. Patient pulse ox is 92% on room air. Patient is off oxygen Mild hypokalemia: Potassium replaced. Discharge medication reconciliation done. Discharge follow-up instructions completed. Discharge process discussed with the patient and all questions were answered to patient's satisfaction. Total time spent, exact 35 minutes on discharge meds reconciliation, examination, review of imaging and blood test and discussion with the patient on follow-up instructions. Follow-up with oncologist, Dr RAMAN Surgeon Dr. London was verbally discussed for Pleurx catheter. She talked to Dr. Lalo Barrett and he agreed to follow-up as an outpatient for Pleurx catheter. Follow-up Dr. Barrett in 1 week time. Subjective: Patient had ultrasound-guided right thoracocentesis of 550 mL. Patient tolerated the procedure well. The rest of the physical findings as above. Objective: Air entry has improved on the right side. - Physical Exam Vital Signs Temp Pulse Resp BP Pulse Ox 98.3 F 92 18 120/72 92 05/13/19 14:14 05/13/19 14:14 05/13/19 14:14 05/13/19 14:14 05/13/19 15:57 Oxygen Flow Rate (L/min) [8] 2 Oxygen Flow Rate (L/min) [7] 2 Oxygen Flow Rate (L/min) [6] 2 Oxygen Flow Rate (L/min) [5] 2 Oxygen Flow Rate (L/min) [4] 2 Oxygen Flow Rate (L/min) [3] 2 Oxygen Flow Rate (L/min) [2] 2 Oxygen Flow Rate (L/min) [1 ( 2 Initial Baseline)] Oxygen Flow Rate (L/min) 2 Oxygen Delivery Method [8] Nasal Cannula Oxygen Delivery Method [7] Nasal Cannula Oxygen Delivery Method [6] Nasal Cannula Oxygen Delivery Method [5] Nasal Cannula Oxygen Delivery Method [4] Nasal Cannula Oxygen Delivery Method [3] Nasal Cannula Oxygen Delivery Method [2] Nasal Cannula Oxygen Delivery Method [1 ( Nasal Cannula Initial Baseline)] Oxygen Delivery Method Nasal Cannula Weight: 222 lb 15.996 oz Body Mass Index (BMI) 40.8 Intake and Output for Last 24 Hours 05/11/19 05/12/19 05/13/19 23:59 23:59 23:59 Intake Total 120 / 420 1050 / 1050 Balance 120 / 420 1050 / 1050 Laboratory Tests Past 24 Hrs 05/13/19 06:10 PT 14.0 INR 1.1 APTT 33.9 Code Visit OBSV E&M: 36542 Observation care discharge
[2019-05-13] MEDS: 0.9% NaCl VAD Flush IV (16:10)
--- NOTE | 2019-05-13 16:28 | US_ITS ---
PROCEDURE: ULTRASOUND GUIDED THORACENTESIS. DATE: May 13, 2019.. INDICATION: Female, 73 years old. Right pleural effusion. PHYSICIAN: Sixto Bess M.D. PROCEDURE: The risks, benefits, and alternatives to the procedure were explained to the patient. The specific risks of bleeding, infection, and pneumothorax requiring chest tube insertion were discussed and accepted. Written informed consent was obtained. Ultrasonographic evaluation of the right lower pleural space was carried out. An adequate pocket was identified. The patient was placed in the sitting, upright position. The overlying skin was prepped and draped in sterile fashion. 1% lidocaine was administered subcutaneously for local anesthesia. Under ultrasound guidance, a 6 [place]ian thoracentesis needle/catheter system was advanced into the right posterior lower pleural fluid collection. Approximately 550 mL of bev-colored fluid was drained. The catheter was removed, and a sterile dressing was applied. The patient tolerated the procedure well. A chest x-ray was ordered. US/Thoracentesis W US IMPRESSION: Ultrasound-guided right thoracentesis.. Electronically Signed: Sixto Bess, at 9:22 EDT , Service support ,
== END 2019-05-13 17:30 | disposition home or self-care (01) ==
LOC: ED 14:58 → MS3 16:08
PROVIDERS: Emergency Provider Emergency Medicine; Family Provider Family Medicine; PCP Family Medicine; Visit Provider Internal Medicine
DX: J90 Pleural effusion, not elsewhere classified (principal); C34.91 Malignant neoplasm of unspecified part of right bronchus or lung; C79.51 Secondary malignant neoplasm of bone; E03.9 Hypothyroidism, unspecified; E66.01 Morbid (severe) obesity due to excess calories; E78.5 Hyperlipidemia, unspecified; K21.9 Gastro-esophageal reflux disease without esophagitis; E11.42 Type 2 diabetes mellitus with diabetic polyneuropathy; I10 Essential (primary) hypertension; Z79.899 Other long term (current) drug therapy; Z68.41 Body mass index [BMI] 40.0-44.9, adult; Z71.3 Dietary counseling and surveillance; Z87.891 Personal history of nicotine dependence; E87.6 Hypokalemia; R09.02 Hypoxemia
CPT/HCPCS: 32555; 36415; 36591; 71046; 80048; 85025; 85610; 85730; 93005; 96374; 99218; 99285; A4216; G0378

== ENCOUNTER → 2019-05-23 | Outpatient (CLI) | payer MEDICARE, SELFPAY ==
[2018-12-13 14:35] VITALS: BMI 42.2
[2019-05-12 15:47] VITALS: BMI 40.8
--- NOTE | 2019-05-23 09:56 | NM_ITS ---
CLINICAL: 73-year-old female with reported history of carcinoma of the lung. WHOLE BODY 99m Tc MDP RADIONUCLIDE BONE SCINTIGRAPHY COMPARISON: CT of the chest and abdomen reports 04/14/2019, FDG PET CT report 05/09/2019 FINDINGS: Following the intravenous administration of 27.2 mCi of 99m Tc MDP, whole body bone images reveal: 1. Increased radiopharmaceutical concentration is defined in the 10th and to lesser extent 11th thoracic vertebra posteriorly. 2. Facilitated tracer distribution is noted in the acromioclavicular and sternoclavicular compartments of both shoulders, mid cervical spine posteriorly on the left and right, lower cervical spine posteriorly on the left, eighth thoracic vertebra posteriorly on the right, second lumbar vertebra posteriorly on the right, the fifth lumbar vertebra posteriorly on the left, bilateral knees, both ankles, the midfoot bilaterally, right-left forefoot. 3. The remaining skeletal structures are scintigraphically unremarkable with normal-appearing renal images and urinary bladder activity identified. NM/Bone Scan Whole Body IMPRESSION: 1. Increased radiopharmaceutical concentration visualized in the lower thoracic spine is most consistent with trauma-fracture and apparent orthopedic hardware placement. 2. Degenerative arthritis appears expressed in the bilateral shoulders, the cervical, additional thoracic, lumbar spine, right and left knees, ankles bilaterally, midfoot and forefoot bilaterally. 3. There is no definitive typical scintigraphic evidence of diffuse axial skeletal metastatic disease on the current examination. Electronically Signed: Octavio Swanson DO at 23:30 EDT Tel , Service support ,
--- NOTE | 2019-05-23 12:58 | ECHOCS_ITS ---
Reason For Study: Pedal Edema Procedure This was a 2D Doppler, Color Flow transthoracic echocardiogram. The study was technically difficult. Contrast injection was performed. Unable to perform Strain Analysis due to needed use of Definity. Exam performed in department. Left Ventricle Normal LV size. Left ventricular systolic function is normal. The estimated ejection fraction is 70 %. No regional wall motion abnormalities noted. Right Ventricle Normal RV size. Normal systolic function. Atria Normal left atrium. Normal right atrium. Mitral Valve Normal mitral valve. Tricuspid Valve Normal tricuspid valve. Aortic Valve The aortic valve is not well visualized. Pulmonic Valve Normal pulmonic valve. Great Vessels Normal aortic root. The pulmonary artery is normal size. Normal inferior vena cava. Pericardium/Pleural No pericardial effusion. Medication 22 gauge I.V. with prn adaptor inserted into left arm. Diluted definity 2ml given slow IV push to enhance endocardial definition. MMode/2D Measurements & Calculations LVIDd: 3.8 cm IVSd: 1.3 cm LAV(MOD-sp4): 29.9 ml LVIDs: 2.0 cm LVPWd: 1.7 cm FS: 48.0 % LA A4 area: 13.4 cm2 Time Measurements MV dec time: 0.22 sec Doppler Measurements & Calculations MV E max rolf: 82.1 cm/sec Lat Peak E' Rolf: 6.6 cm/sec Med Peak E' Rolf: 4.3 cm/sec MV A max rolf: 122.5 cm/sec E/E' lat: 12.5 E/E' med: 19.0 MV E/A: 0.67 MV V2 max: 153.1 cm/sec MV P1/2t max rolf: 112.7 cm/sec Ao V2 max: 146.4 cm/sec MV max P.4 mmHg MV P1/2t: 61.0 msec Ao max P.6 mmHg MV V2 mean: 87.9 cm/sec MV dec slope: 540.6 cm/sec2 MV mean P.6 mmHg MV V2 VTI: 31.7 cm MVA(P1/2t): 3.6 cm2 LV V1 max: 134.6 cm/sec PA V2 max: 108.8 cm/sec LV V1 max P.2 mmHg Interpretation Summary Normal LV size. Left ventricular systolic function is normal. The estimated ejection fraction is 70 %. The study was technically limited. The study was technically difficult. Ordering Physician: Arthur Gates Referring Physician: Arthur Gates Performed By: Dillan Nova RCS
== END | disposition home or self-care (01) ==
LOC: NM 09:55
PROVIDERS: Family Provider Family Medicine; PCP Family Medicine; Referring Provider Internal Medicine Medical Oncology; Visit Provider Internal Medicine Medical Oncology
DX: C34.2 Malignant neoplasm of middle lobe, bronchus or lung (principal); R60.0 Localized edema
CPT/HCPCS: 78306; 93306; Q9957; A4216; C8929

== ENCOUNTER → 2019-06-09 12:28 | Outpatient (CLI) | payer MEDICARE, SELFPAY ==
[2018-12-13 14:35] VITALS: BMI 42.2
[2019-06-08 11:25] VITALS: BMI 40.1
--- NOTE | 2019-06-09 13:12 | US_ITS ---
STUDY: ULTRASOUND GUIDED THORACENTESIS REASON FOR EXAM: Female, 74 years old. Breathing, pleural effusion TECHNIQUE: Ultrasound guided COMPARISON: None. FINDINGS: After informed consent was obtained, patient was placed in the upright sitting position being against the bedside table. An appropriate site for right-sided thoracentesis was determined using sonographic guidance. The area was prepped and draped in a sterile manner, and 2% Xylocaine was used as local anesthetic. Under ultrasound guidance, a valved Ryder drainage catheter was advanced into the right hemithorax, and approximately 1 L of straw-colored serous fluid was withdrawn from the right hemithorax. Patient tolerated the procedure well with no immediate complications and postprocedural chest x-ray showed no evidence of pneumothorax. Patient was returned to the floor in stable condition . US/Thoracentesis W US IMPRESSION: Successful sonographically guided thoracentesis Electronically Signed: Ricky Rizo MD at 7:43 EDT , Service support ,
[2019-06-09 13:21] LABS: International Normalized Ratio 1.1; Prothrombin Time (Protime)PT. 13.8 SECONDS (11.7-14.9)
[2019-06-09 14:00] VITALS: BP 110/46; BP 126/75; BP 135/68; BP 136/75; PULSE 105; PULSE 107; PULSE 110; RESP 16; RESP 18; O2SAT 94; O2SAT 95
--- NOTE | 2019-06-09 14:29 | RAD_ITS ---
STUDY: X-RAY CHEST REASON FOR EXAM: Female, 74 years old. Post thoracentesis TECHNIQUE: Single AP portable view of the chest. COMPARISON: 05/13/19 FINDINGS: Stable appearance of the right subclavian port Left lung is clear and well expanded. The previously noted right pleural effusion has decreased in size after thoracentesis. There remains a small right pleural effusion. There is no evidence of postprocedural pneumothorax or mediastinal shift. Normal size heart. Normal mediastinum and galileo. Normal visualized pulmonary arteries. Normal visualized aortic arch and descending thoracic aorta. Surgical hardware in the thoracic and lumbar spine free of complication Normal visualized ribs, clavicles, and shoulders. There is no demonstrated abnormality of the visualized soft tissue structures of the upper abdomen. RAD/Chest 1 View IMPRESSION: No postprocedural pneumothorax Significant decrease in size of a previously noted right pleural effusion after thoracentesis Left lung is clear Electronically Signed: Ricky Rizo MD at 14:56 EDT , Service support ,
== END ==
PROVIDERS: Family Provider Family Medicine; PCP Family Medicine; Referring Provider Student in an Organized Health Care Education/Training Program; Visit Provider Student in an Organized Health Care Education/Training Program
DX: J90 Pleural effusion, not elsewhere classified (principal); C34.2 Malignant neoplasm of middle lobe, bronchus or lung
CPT/HCPCS: 32555; 36415; 71045; 85610

== ENCOUNTER → 2019-07-04 | Outpatient (CLI) | payer MEDICARE, SELFPAY ==
[2018-12-13 14:35] VITALS: BMI 42.2
[2019-07-04 10:16] VITALS: BMI 39.1
--- NOTE | 2019-07-04 11:07 | RAD_ITS ---
STUDY: X-RAY CHEST REASON FOR EXAM: Female, 74 years old. History of cancer TECHNIQUE: PA and lateral chest COMPARISON: 06/09/2019 x-ray chest, CT chest 05/24/2019, 04/14/2019 FINDINGS: Right Mediport catheter tip in mid SVC. Moderately large layering right pleural effusion with dense right lung base atelectasis. Airspace opacity of greater density right perihilar, ill-defined. Right apical lung clear. Left lung clear. Normal cardiomediastinal silhouette, galileo and pleural margins. Multilevel thoracolumbar posterior jovany and pedicle screw fixation. The surgical construct appears intact. Low thoracic compression fracture, chronic. RAD/Chest PA and Lateral IMPRESSION: Moderately large layering right pleural effusion, dense right lung base atelectasis, ill-defined right perihilar opacity stable. Electronically Signed: Octavio Torres MD at 12:19 EDT Tel , Service support ,
== END | disposition home or self-care (01) ==
LOC: RAD 11:06
PROVIDERS: Family Provider Family Medicine; PCP Family Medicine; Referring Provider Internal Medicine Medical Oncology; Visit Provider Internal Medicine Medical Oncology
DX: C34.91 Malignant neoplasm of unspecified part of right bronchus or lung (principal); J90 Pleural effusion, not elsewhere classified
CPT/HCPCS: 71046

== ENCOUNTER → 2019-07-14 | Outpatient (CLI) | payer MEDICARE, SELFPAY ==
[2018-12-13 14:35] VITALS: BMI 42.2
[2019-07-04 10:16] VITALS: BMI 39.1
[2019-07-04 13:58] VITALS: BMI 39.1
--- NOTE | 2019-07-14 12:58 | CT_ITS ---
STUDY: CT CHEST WITH CONTRAST REASON FOR EXAM: Female, 74 years old. Follow-up lung cancer. Status post radiation and chemotherapy. RADIATION DOSAGE (If Supplied By Facility): CTDIvol = ( 12.20 ) mGy, DLP = ( 663.11 ) mGycm TECHNIQUE: Transaxial imaging was performed following intravenous administration of 100 IV Isovue 370. Individualized dose optimization techniques were used for this CT. COMPARISON: Previous CT scan 04/14/2019, PET scan 05/09/2019. FINDINGS: There is a persistent moderate to large right pleural effusion which may be slightly smaller than previous exam. There is continued extensive atelectasis of the right lung, including most of the right lower lobe and much of the right middle lobe. There is mild aeration now in the center of the right lower lobe which is improved since prior exam. Left lung is adequately expanded and clear. Because of consolidation and atelectasis in and around the right hilum, mass in this area cannot be excluded. No other suggestion of mass or adenopathy. There is borderline cardiomegaly. Normal mediastinum. Normal hilar regions. Normal enhanced pulmonary arteries. Normal aorta arch and descending thoracic aorta. Stable appearance of compression fracture from metastatic disease of T10 and stable extensive posterior decompression and surgical posterior fixation. Probable additional compression fracture of T8 or prominent prior study. There is no demonstrated acute abnormality of the visualized upper abdomen. CT/Chest WITH Contrast IMPRESSION: Slight improvement in otherwise prominent right pleural effusion with extensive compressive atelectasis of the right middle lobe and the right lower lobe. Neoplasm is not excluded in the areas of consolidation in the right hilum although a recent PET scan was negative. Stable postsurgical changes of the thoracic spine. Electronically Signed: Aldo Nichols MD at 22:32 EDT , Service support ,
== END | disposition home or self-care (01) ==
LOC: CT 12:55
PROVIDERS: Family Provider Family Medicine; Referring Provider Internal Medicine Medical Oncology; Visit Provider Internal Medicine Medical Oncology
DX: C34.2 Malignant neoplasm of middle lobe, bronchus or lung (principal)
CPT/HCPCS: 71260; Q9967; A4216

== ENCOUNTER → 2019-08-22 | Outpatient (CLI) | payer MEDICARE, SELFPAY ==
[2018-12-13 14:35] VITALS: BMI 42.2
[2019-08-08 11:08] VITALS: BMI 38.6
--- NOTE | 2019-08-22 10:30 | RAD_ITS ---
STUDY: X-RAY CHEST REASON FOR EXAM: Female, 74 years old. Malignant neoplasm of lung. History of lung cancer. TECHNIQUE: PA and lateral views. COMPARISON: 07/04/2019. FINDINGS: Right IJ approach Wckl-J-Nuhyfuiq tip remains in the SVC. Diminished right lung volume is unchanged. Loculated air in the right lower hemithorax was present previously. The fluid level in the right lower hemithorax is not visualized in today's exam. Normal left lung. Right pleural fluid is unchanged. No left pleural fluid. Cardiac size cannot be accurately evaluated since there is loss of the right heart border. Normal mediastinum and galileo. Normal visualized pulmonary arteries. Normal visualized aortic arch and descending thoracic aorta. Pedicular screws and rods in the thoracic spine. Normal visualized ribs, clavicles, and shoulders. There is no demonstrated abnormality of the visualized soft tissue structures of the upper abdomen. RAD/Chest PA and Lateral IMPRESSION: 1. Persistent diminished right lung volume with opacification of the right lower hemithorax and the persistent air bubble in the right lower hemithorax. The fluid level in the right lower lobe has resolved. CT chest will be more helpful. 2. No other additional findings or significant changes since 07/04/2019. Electronically Signed: Max Rosario MD at 11:12 EDT , Service support ,
== END | disposition home or self-care (01) ==
LOC: RAD 10:24
PROVIDERS: Family Provider Family Medicine; PCP Family Medicine; Referring Provider Internal Medicine Medical Oncology; Visit Provider Internal Medicine Medical Oncology
DX: C34.90 Malignant neoplasm of unspecified part of unspecified bronchus or lung (principal)
CPT/HCPCS: 71046

== ENCOUNTER → 2019-09-14 | Outpatient (CLI) | payer MEDICARE, SELFPAY ==
[2018-12-13 14:35] VITALS: BMI 42.2
[2019-09-05 11:30] VITALS: BMI 39.3
--- NOTE | 2019-09-14 13:22 | CT_ITS ---
STUDY: CT CHEST WITH CONTRAST REASON FOR EXAM: Female, 74 years old. Follow-up after treatment with chemotherapy. Patient has lung cancer. RADIATION DOSAGE (If Supplied By Facility): CTDIvol = ( 12.46 ) mGy, DLP = ( 679.18 ) mGycm TECHNIQUE: Transaxial imaging was performed following intravenous administration of 100 ml of Isovue 370.. Multiplanar coronal and sagittal images were reformatted. Individualized dose optimization techniques were used for this CT. COMPARISON: CT of the chest dated June 09, 2019. FINDINGS: The lungs are hyperexpanded. There is right lower lobe airspace consolidation with air bronchograms. There is probable associated postobstructive atelectasis within the right lower lobe. The left lung appears to be clear. There is a moderately large right-sided pleural effusion some of which may be loculated. The pleural effusion appears larger than it did on the previous study. There is borderline cardiomegaly. There are calcifications of the coronary arteries. Normal mediastinum. There is questionable right-sided hilar lymphadenopathy or mass. There is no definite evidence for left-sided hilar lymphadenopathy. Normal enhanced pulmonary arteries. There is atherosclerotic tortuosity of the aortic arch and descending thoracic aorta. Maximum transverse dimension of the ascending thoracic aorta measures approximately 3.2 cm. The bones are osteopenic. The patient has a pathologic compression fracture of T10. The patient has multiple interpedicular screws at T7, T8-T9, T11, T12-L1 and L2 transfix by rods. The sternum has a grossly normal appearance. There is no demonstrated abnormality of the visualized upper abdomen. CT/Chest WITH Contrast IMPRESSION: 1. Residual right basilar airspace consolidation and postobstructive atelectasis possibly related to right-sided infrahilar lymphadenopathy or mass. 2. Increasing right-sided pleural effusion. Electronically Signed: Niru Mcgarry MD at 9:34 EDT , Service support ,
== END | disposition home or self-care (01) ==
LOC: CT 13:21
PROVIDERS: Family Provider Family Medicine; PCP Family Medicine; Referring Provider Internal Medicine Medical Oncology; Visit Provider Internal Medicine Medical Oncology
DX: C34.90 Malignant neoplasm of unspecified part of unspecified bronchus or lung (principal)
CPT/HCPCS: 71260; Q9967; A4216

== ENCOUNTER → 2019-09-30 | Outpatient (CLI) | payer MEDICARE, SELFPAY ==
[2018-12-13 14:35] VITALS: BMI 42.2
[2019-09-19 11:18] VITALS: BMI 38.9
[2019-09-26 11:29] VITALS: BMI 38.4
--- NOTE | 2019-09-30 10:24 | MRI_ITS ---
STUDY: MRI THORACIC SPINE WITH AND WITHOUT CONTRAST REASON FOR EXAM: Female, 74 years old. Back pain since procedure TECHNIQUE: IV Dotarem 20 was administered for the contrast portion of the examination. COMPARISON: [address], 12 November 2018 MR FINDINGS: Examination is mildly degraded due to metallic artifact. Diagnostic information is available. There is a known pathologic fracture of T10 with partial collapse and approximately 25% loss of height. There are questionable lesions in T8, T9 and T11 vertebral bodies. There are post radiation changes with marrow conversion. There is a surgical incision and expected reactive change in the posterior paraspinous soft tissues centered on T10. There are pedicular screws from T7 through L2 is better demonstrated on prior CT. Spinal canal is patent at all levels. Cord is unremarkable. Epidural space is intact. There is no intraspinal enhancement. Enhancement of the lesions is evaluated in the suboptimal fashion due to presence of metallic artifact effects. There is a large right pleural effusion. Appearance is similar to prior. MRI/Spine Thoracic W/WO Contrast IMPRESSION: 1. Patent canal, no cord compression. 2. No epidural metastatic disease. 3. Stable expected appearance of T10 pathologic fracture, multiple bone lesions, dorsal hardware fusion. Electronically Signed: Ronnie Bradshaw, at 18:20 EST Tel , Service support ,
--- NOTE | 2019-09-30 10:24 | MRI_ITS ---
STUDY: MRI LUMBAR SPINE WITH AND WITHOUT CONTRAST REASON FOR EXAM: Female, 74 years old. Lung cancer, back pain, prior surgery TECHNIQUE: Standardized fat and water weighted pulse sequences were obtained in the sagittal and axial planes. IV Dotarem 20 was administered for the contrast portion of the examination. COMPARISON: None FINDINGS: There are surgical and neoplastic changes in the lower thoracic spine, refer to dedicated thoracic report. Lumbar spine is intact and aligned with normal marrow without lesions. There are pedicular rods in L1 and L2. There are expected age-related changes. There is prior decompression laminotomy at L5-S1. Conus medullaris terminates at L1-L2 with normal cauda equina. Thecal sac is patent. There are multilevel mild foraminal stenoses. Lateral recesses are patent. MRI/Spine Lumbar W/WO Contrast IMPRESSION: 1. Unremarkable for age lumbar spine. 2. Patent thecal sac, no neural compression. 3. No osseous lesions in the lumbar spine. Electronically Signed: Ronnie Bradshaw, at 18:30 EST Tel , Service support ,
== END | disposition home or self-care (01) ==
PROVIDERS: Family Provider Family Medicine; PCP Family Medicine; Referring Provider Internal Medicine Medical Oncology; Visit Provider Internal Medicine Medical Oncology
DX: C34.2 Malignant neoplasm of middle lobe, bronchus or lung (principal); C79.51 Secondary malignant neoplasm of bone
CPT/HCPCS: 72157; 72158; A9575

== ENCOUNTER → 2019-10-05 14:29 | Outpatient (CLI) | payer MEDICARE, SELFPAY ==
[2018-12-13 14:35] VITALS: BMI 42.2
[2019-10-03 11:35] VITALS: BMI 38.0
== END ==
LOC: LAB 14:31 → LAB.FUTURE 10-06 06:24
PROVIDERS: Family Provider Family Medicine; PCP Family Medicine; Referring Provider Internal Medicine Medical Oncology; Visit Provider Family Medicine
DX: R30.0 Dysuria (principal)

== ENCOUNTER → 2019-11-18 07:35 | Outpatient (CLI) | payer MEDICARE, SELFPAY ==
[2018-12-13 14:35] VITALS: BMI 42.2
[2019-11-07 09:58] VITALS: BMI 38.1
--- NOTE | 2019-11-18 07:41 | CT_ITS ---
STUDY: CT ABDOMEN AND PELVIS WITH CONTRAST REASON FOR EXAM: Female, 74 years old. LUNG CA-CHEMO CK, NON SMALL LUNG CA WITH METS TO SPINE, SPINE SURG, RECURRING PLEURAL EFFUSION RADIATION DOSAGE (If Supplied By Facility): CTDIvol = ( 19.67 ) mGy, DLP = ( 2256.74 ) mGycm TECHNIQUE: Transaxial images were obtained from the dome of the diaphragm to the symphysis pubis without oral contrast. Oral and amp; IV Gastrografin and amp; 100mL Isovue-300 was administered. Sagittal and coronal images were reconstructed. Individualized dose optimization techniques were used for this CT. COMPARISON: CT of the abdomen April 14, 2019, report only. Images not available for comparison at time of interpretation. CT of the chest September 14, 2019. FINDINGS: There is a stable, large right pleural effusion without definite loculation. There is dense consolidation and atelectasis of the visualized right lower lobe with air bronchograms and potential right infrahilar mass/lymphadenopathy. These findings appear stable versus comparison chest CT. The visualized portions of the heart are within normal limits. Normal liver. The gallbladder is either absent or significantly contracted. Normal spleen. Normal pancreas. Normal bilateral adrenal glands. Normal right kidney. Normal left kidney. Normal visualized stomach. Normal small intestine. Multiple uncomplicated colonic diverticula are appreciated. There is no free fluid. There is no free air. Multifocal calcified plaque is seen throughout the aortoiliac system without demonstrated aneurysm. Normal inferior vena cava. Normal retroperitoneum. There is mild smooth wall thickening of the mildly to moderately nondistended urinary bladder. Normal abdominal wall. A vague focus of sclerosis within the right iliac bone, sequence 3, image 90 is identified. Similar additional foci of vague sclerosis is identified in the left L4 and L5 pedicles. There is no acute osseous abnormality. Thoracolumbar posterior fusion with bilateral pedicle screws and posterior rods is identified without evidence of hardware failure CT/Abdomen/Pelvis WITH Contrast IMPRESSION: Stable, large right pleural effusion without definite loculation. Dense consolidation and atelectasis of visualized right lower lobe potentially representing drowned inflammatory lung from mass/lymphadenopathy. Diverticulosis without evident diverticulitis. No obstruction. No free fluid. No free air. Atherosclerotic peripheral vascular disease. Regions of vague sclerosis within right iliac bone and left L4 and L5 pedicles may represent blastic metastasis in this patient with provided clinical history of non-small cell lung cancer. Electronically Signed: Brad Alvarado MD at 8:52 EST , Service support ,
--- NOTE | 2019-11-18 07:41 | CT_ITS ---
STUDY: CT CHEST WITH CONTRAST REASON FOR EXAM: Female, 74 years old. LUNG CA-CHEMO CK, NON SMALL LUNG CA WITH METS TO SPINE, SPINE SURG, RECURRING PLEURAL EFFUSION RADIATION DOSAGE (If Supplied By Facility): CTDIvol = ( 19.67 ) mGy, DLP = ( 2256.74 ) mGycm TECHNIQUE: Transaxial imaging was performed following intravenous administration of Oral and amp; IV Gastrografin and amp; 100mL Isovue-300. Individualized dose optimization techniques were used for this CT. COMPARISON: September 14, 2019. FINDINGS: Again seen is a slightly increased in volume, large right pleural effusion with layering. Compressive atelectasis is seen adjacent to the effusion posteriorly. There is mild to minimal increase in volume of the right pleural fluid. No definite loculation is identified. Again seen is dense consolidation in the right lung base with evident CT air-bronchograms. No definite endobronchial lesion is identified. The left lung appears expanded and is clear. There is minimal left basilar dependent atelectasis. Normal heart and pericardium. Again seen is stable, multistation nonpathologic by size criteria mediastinal adenopathy. Again seen is fullness in the region the right hilum which may represent mass or matted adenopathy. There is no pathologic by size left hilar adenopathy. Normal enhanced pulmonary arteries. There is multifocal calcified plaques throughout the aorta without demonstrated aneurysm. Again seen is long segment fusion of the thoracolumbar spine with bilateral pedicle screws and posterior rods. No evidence of hardware failure. Again seen is stable sclerotic compression deformity of T10. Please refer to previously dictated, dedicated CT of the abdomen and pelvis from today. CT/Chest WITH Contrast IMPRESSION: Minimal increase in right pleural effusion. No definite loculation. Dense consolidation and atelectasis in the right lower lobe may represent drowned inflammatory lung from more proximal obstructive lesion such as right hilar adenopathy or right hilar mass.. No definite endobronchial lesion identified. Stable, multistation, nonpathologic by size criteria mediastinal adenopathy. Atherosclerotic peripheral vascular disease. Lung segment thoracolumbar dorsal fusion with potential metastatic pathologic fracture of T10. Electronically Signed: Brad Alvarado MD at 11:33 EST , Service support ,
[2019-11-18] MEDS: 0.9% Saline Lock 10 ML Syringe IV (08:03)
== END ==
PROVIDERS: Family Provider Family Medicine; PCP Family Medicine; Referring Provider Nurse Practitioner Family; Visit Provider Nurse Practitioner Family
DX: C34.90 Malignant neoplasm of unspecified part of unspecified bronchus or lung (principal)
CPT/HCPCS: 71260; 74177; Q9967; A4216

== ENCOUNTER → 2019-11-22 14:44 | Outpatient (CLI) | payer MEDICARE, SELFPAY ==
[2018-12-13 14:35] VITALS: BMI 42.2
[2019-11-21 09:40] VITALS: BMI 38.0
--- NOTE | 2019-11-22 | IMM_PTH ---
PATIENT: CARLOS HUNT LOC: [facility]#:[id number] AGE/SX: 80/F ROOM: RE11/22/[address]: Dr. Arthur Gates MD : 1945 BED: DIS: SPEC #: [id number] RECD: 11/24/19 13:23 STATUS: BUDDY REQ #: [id number] CONNER: 11/22/19 00:[address]: Arthur Gates DEPT: IMMUNOHISTOCHEMISTRY RECD BY: Sasha Styles ENTERED: 11/24/19 13:27 SP TYPE: IMMUNO OTHR DR: Dr. Harjinder Borjas MD Tissues: THORACIC FLUID Procedures: BCL-2 (add) CD20 (add) CD3 (add) CD45 (add) CD5 (add) CD79A (add) Pankeratin (initial) PHYSICIAN & INSTITUTION [place] [id number] SPECIMEN INFORMATION: Tissue Source: Thoracentesis fluid Clinical Info: Right pleural effusion Specimen Number: [id number] CPT code: 08275, 18051 x6 METHODOLOGY: Deparaffinized sections of prefer/formalin-fixed tissue or PAP/DQ stained slides are incubated with monoclonal/polyclonal antibodies/oligonucleotide probes. Localization is made via biotin free immunoperoxidase method. Appropriate controls are performed and reacted as expected. Results on target cell population are indicated in the following table: RESULTS: ANTIBODY / CLONE RESULT AE1-3 (AE1/AE3/PCK26) negative CD3 (PS1) positive CD5 (SP10) positive CD20 (L26) positive, small population CD45 (RP2/18) positive CD79a (11E3) positive BCL-2 (bcl-2/100/D5) negative These tests were developed and their performance characteristics determined by [facility]. They may not have been cleared or approved by the U.S. Food and Drug Administration. The FDA has determined that such clearance or approval is not necessary. The above immunohistochemical/dualISH markers are ordered and reviewed by the Pathologist. INTERPRETATION: Thoracentesis fluid: Polytypic (benign) lymphocytes present. AM:aishwarya 11/25/19
--- NOTE | 2019-11-22 14:45 | US_ITS ---
PROCEDURE: ULTRASOUND GUIDED THORACENTESIS. DATE: November 22, 2019. INDICATION: Female, 74 years old. Right pleural effusion. PHYSICIAN: Sixto Bess M.D. PROCEDURE: The risks, benefits, and alternatives to the procedure were explained to the patient. The specific risks of bleeding, infection, and pneumothorax requiring chest tube insertion were discussed and accepted. Written informed consent was obtained. Ultrasonographic evaluation of the right lower pleural space was carried out. An adequate pocket was identified. The patient was placed in the sitting, upright position. The overlying skin was prepped and draped in sterile fashion. 1% lidocaine was administered subcutaneously for local anesthesia. Under ultrasound guidance, a 5 Czech thoracentesis needle/catheter system was advanced into the right posterior lower pleural fluid collection. Approximately 800 mL of brownish fluid was drained. The catheter was removed, and a sterile dressing was applied. A specimen was collected and sent to the laboratory for analysis, as requested by the referring clinician. The patient tolerated the procedure well. A chest x-ray was ordered. US/Thoracentesis W US IMPRESSION: Ultrasound-guided right thoracentesis. Electronically Signed: Sixto Bess, at 16:06 EST , Service support ,
--- NOTE | 2019-11-22 15:15 | FLU_PTH ---
PATIENT: CARLOS HUNT LOC: [facility]#:[id number] AGE/SX: 80/F ROOM: RE11/22/[address]: Dr. Arthur Gates MD : 1945 BED: DIS: SPEC #: [id number] RECD: 11/22/19 15:50 STATUS: BUDDY RELiyah #: [id number] CONNER: 11/22/19 15:[address]: Arthur Gates DEPT: CYTOLOGY RECD BY: Baldemar Lopez ENTERED: 11/23/19 10:31 SP TYPE: Fluid OTHR DR: Dr. Harjinder Borjas MD Tissues: THORACIC FLUID Procedures: Special Stain Group II Surgery Specimen Level IV Cytospin Fluid HEADER OPERATION: Thoracentesis right chest PRE-OP DIAGNOSIS: Right pleural effusion TISSUE SUBMITTED: Thoracentesis fluid for cytology DIAGNOSIS CYTOLOGY Thoracentesis fluid for cytology (cytospin and cell block): Polytypic lymphocytic population present. No evidence of carcinoma. No evidence of lymphoproliferative disorder. See comment. AM:aishwarya 11/24/19 COMMENT Immunohistochemistry ([id number]) supports the above diagnosis. CYTOLOGY STUDY Slides are reviewed. CYTOLOGY GROSS Received is 850 ml of cloudy bev fluid labeled with the patient's name and and designated per the requisition as thoracic fluid, right chest. Submitted for cytology preparation including cell block. /CC:cc 11/23/2019 TC:3 CPT: 19423, 00109
--- NOTE | 2019-11-22 15:25 | RAD_ITS ---
STUDY: X-RAY CHEST REASON FOR EXAM: Female, 74 years old. POST THORACENTESIS TECHNIQUE: AP inspiration and expiration views. COMPARISON: Comparison is made with prior study dated August 22, 2019. FINDINGS: The patient is status post right thoracentesis. There is no evidence of pneumothorax. Mild residual pleural-parenchymal changes are seen at the right lung base. RAD/Chest Insp/Exp 2 View IMPRESSION: No evidence of pneumothorax on the post right thoracentesis examination. Electronically Signed: Sixto Bess, at 15:54 EST , Service support ,
[2019-11-22 15:40] VITALS: BP 114/94; BP 121/64; BP 133/56; BP 140/66; PULSE 101; PULSE 104; PULSE 95; PULSE 99; RESP 14; RESP 16; RESP 18; O2SAT 92; O2SAT 93; O2SAT 94
[2019-11-22 15:47] LABS: Cytology, Body Fluid / CSF SEE PATHOLOGY REPORT
== END ==
PROVIDERS: Family Provider Family Medicine; PCP Family Medicine; Referring Provider Internal Medicine Medical Oncology; Visit Provider Internal Medicine Medical Oncology
DX: C34.91 Malignant neoplasm of unspecified part of right bronchus or lung (principal); J91.8 Pleural effusion in other conditions classified elsewhere
CPT/HCPCS: 32555; 71046; 88108; 88305; 88313; 88341; 88342

== ENCOUNTER → 2020-04-30 12:41 | Outpatient (CLI) | payer MEDICARE, SELFPAY ==
[2018-12-13 14:35] VITALS: BMI 42.2
[2020-01-30 10:37] VITALS: BMI 35.7
--- NOTE | 2020-04-30 12:43 | CT_ITS ---
STUDY: CT CHEST WITH CONTRAST REASON FOR EXAM: Female, 74 years old. PT STATED LUNG CA MONITORING RADIATION DOSAGE (If Supplied By Facility): CTDIvol = ( 11.91 ) mGy, DLP = ( 616.56 ) mGycm TECHNIQUE: Transaxial imaging was performed following intravenous administration of IV 100mL Isovue-300. Multiplanar coronal and sagittal images were reformatted. Individualized dose optimization techniques were used for this CT. COMPARISON: Comparison is made with prior CT scan of thorax dated November 18, 2019. FINDINGS: A right-sided portacatheter is seen. Since prior study, there has been interval decrease in size of the right pleural effusion. There is persistent atelectasis and/or infiltrate in the right lower lobe. This may represent an area of a rounded atelectasis. There is evidence of a focal nodular thickening along the medial aspect of the right minor fissure. This measures 1.4 cm x 1.5 cm. The left lung is clear. Normal heart and pericardium. Normal mediastinum. Normal hilar regions. Normal enhanced pulmonary arteries. There is atherosclerotic calcification of the aortic arch with tortuosity and elongation of the aortic arch and descending thoracic aorta. There is demineralization of the thoracic spine. Prior fusion of the lower thoracic and upper lumbar vertebrae. Sclerotic metastasis of the T11 or T12 vertebrae with loss of height. There is no demonstrated abnormality of the visualized upper abdomen. CT/Chest WITH Contrast IMPRESSION: Interval decrease in size of the right pleural effusion with residual right basilar atelectasis and findings suggestive of round atelectasis. 1.4 cm x 1.5 cm nodular thickening along the medial aspect of the right minor fissure. Stable appearance of the thoracic spine. Electronically Signed: Sixto Bess, at 14:31 EDT , Service support ,
[2020-04-30] MEDS: 0.9% Saline Lock 10 ML Syringe IV (13:20)
== END ==
PROVIDERS: PCP Family Medicine; Referring Provider Internal Medicine Medical Oncology; Visit Provider Internal Medicine Medical Oncology
DX: C34.2 Malignant neoplasm of middle lobe, bronchus or lung (principal)
CPT/HCPCS: 71260; Q9967

== ENCOUNTER 2020-06-12 19:00 | Emergency (ER) | payer MEDICARE, SELFPAY ==
[2018-12-13 14:35] VITALS: BMI 42.2
[2020-05-03 14:11] VITALS: BMI 35.4
[2020-06-12 19:03] VITALS: BP 161/92; PULSE 105; RESP 18; TEMP 36.6; O2SAT 95; BMI 35.4
--- NOTE | 2020-06-12 20:00 | ED.VIS.GEN ---
History of Present Illness Chief Complaint: Other, Pain/Inj Informant: Patient Onset: Days Context: Sudden Onset Timing: Continuous Quality: Pain mid thoracic area radiating anteriorly bilaterally Location: T6-7-8 region Current Severity: Mild Maximum Severity: Severe Worsened by: Touch, movement Relieved by: Better with rest Associated Symptoms: No neurologic symptoms or GI symptoms. 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 She presents with acute on chronic thoracic/dorsal spine pain that is atraumatic. She denies respiratory symptoms. Denies cardiac symptoms. She denies history of trauma. She denies GI symptoms. She discontinued taking pain medicines 11 days ago. She is under the care of Dr. Cui for pain management. Prior similar symptoms: Yes Recent Illness/Hospitalization: No - Spine surgery 2019 - Past Medical History (1) Back pain of thoracolumbar region Status: Acute (2) Disseminated malignancy Status: Acute (3) Non-small cell lung cancer with metastasis Status: Acute (4) Recurrent pleural effusion on right Status: Acute (5) Diabetes Status: Chronic (6) HTN (hypertension) Status: Chronic (7) Hyperlipidemia associated with type 2 diabetes mellitus Status: Chronic (8) Hypothyroidism Status: Chronic (9) Morbid (severe) obesity due to excess calories Status: Chronic (10) Non-small cell carcinoma of right lung, stage 4 Status: Chronic Past Medical History - Allergies and Home Meds Allergies/Adverse Reactions: Allergies phenazopyridine [From Pyridium] Allergy (Verified 06/12/20 19:02) Nausea codeine Adverse Reaction (Severe, Verified 06/12/20 19:02) Nausea/Vom/Diarrhea hydrocodone [From Vicodin] Adverse Reaction (Severe, Verified 06/12/20 19:02) Nausea/Vom/Diarrhea morphine Adverse Reaction (Severe, Verified 06/12/20 19:02) severe sedation lisinopril Adverse Reaction (Intermediate, Verified 06/12/20 19:02) cough Sulfa (Sulfonamide Antibiotics) Adverse Reaction (Intermediate, Verified 06/12/20 19:02) Unknown sulfamethoxazole [From Septra] Adverse Reaction (Intermediate, Verified 06/12/20 19:02) Unknown trimethoprim [From Septra] Adverse Reaction (Intermediate, Verified 06/12/20 19:02) Unknown Primary Care Physician: Harjinder Borjas MD [Primary Care Provider] - Prior records reviewed: Yes Surgical History: cholecystectomy, - Lives: With Family Smoking Status: Never smoker Alcohol: None Drugs: None Review of Systems General: Reports: Malaise. Denies: Chills, Fever, Subjective, Sweats, Weight loss ENT: Denies: Rhinorrhea, Sore throat Cardiovascular: Denies: Chest pain, Palpitations Respiratory: Denies: Dyspnea, Cough, Dyspnea on exertion Gastrointestinal: Reports: Abdominal pain, Nausea. Denies: Vomiting, Diarrhea, Constipation, Melena, Hematochezia, -, - Genitourinary: Denies: Dysuria, Hematuria, Frequency Musculoskeletal: Denies: Myalgias, Arthralgias, Neck pain, Back pain, Swelling, Extremity Pain, -, - Skin: Denies: Rash, Wounds Neurological: Denies: Headache, Weakness, Numbness Psych: Reports: Depression Endocrine: Denies: Polyuria, Polydipsia Hematologic: Denies: Easy bruising, Easy bleeding Physical Exam Vital Signs/Narrative: Vital Signs Temp Pulse Resp BP Pulse Ox 06/12/20 19:03 97.8 F 105 H 18 161/92 H 95 Inital Vital Signs reviewed: Yes General: Well nourished, Well developed, Obese, No Acute Distress Head: Normocephalic, Atraumatic Eyes: Perrl, EOMI. Negative for: Scleral icterus ENT: Moist mucous membranes, No rhinorrhea, TM's clear Neck: Supple, Nontender, No lymphadenopathy, No JVD Cardiovascular: Regular rhythm, No murmurs, Normal S1, Normal S2, Tachycardia Respiratory: No distress, CTA bilaterally, Chest nontender Abdomen: Soft, Nontender, Nondistended, Normal bowel sounds Rectal: Deferred Back: Normal Inspection, Spinal tenderness. Negative for: CVA tenderness Extremities: Nontender, Edema Skin: No rash, Pallor Neurological: Alert, Oriented x3, Cranial nerves II-XII grossly intact, Normal Strength, Normal Sensation, Normal DTR Psychological: Normal affect Diagnostic/Tx/Re-eval 06/12/20 20:40 Thoracic Spine 3 Views [RAD] Urgent Laboratory Results 06/12/20 06/12/20 20:10 20:10 WBC 4.6 RBC 4.14 L Hgb 12.4 Hct 39.2 MCV 94.7 MCH 30.0 MCHC 31.6 L RDW Std Deviation 47.9 H RDW Coeff of Lalit 13.8 Plt Count 296 MPV 8.8 Immature Gran % (Auto) 0.900 Neut % (Auto) 70.5 H Lymph % (Auto) 15.3 L [place] % (Auto) 8.6 Eos % (Auto) 4.1 Baso % (Auto) 0.6 Absolute Neuts (auto) 3.3 Absolute Lymphs (auto) 0.71 L Nucleated RBC % 0 Sodium 141 Potassium 3.6 Chloride 107 Carbon Dioxide 30.0 Anion Gap 4 L BUN 11 Creatinine 0.93 Estim Creat Clear Calc 41.91 Est GFR (MDRD) Af Amer 75 Est GFR (MDRD) Non-Af 62 BUN/Creatinine Ratio 11.8 Glucose 102 Calcium 9.2 Total Bilirubin 0.30 AST 12 L ALT 11 L Alkaline Phosphatase 48 Total Protein 7.4 Albumin 2.9 L Globulin 4.5 H Albumin/Globulin Ratio 0.6 L CBC and hemoglobin are unremarkable. Comprehensive metabolic panel reveals a low albumin at 2.9. X-ray of the dorsal spine interpreted by me reveals orthopedic hardware from prior lytic lesion surgery. There is degenerative disc disease noted at multiple levels. There is no blastic or lytic lesions noted. Awaiting formal read by radiologist. - Medical Decision Making Patient was medicated with IV morphine for her pain. X-ray was obtained to look for metastatic disease. Patient reported no improvement with 0.5 mg Dilaudid. She received a second dose of Dilaudid. She was reassessed at 2215. She feels markedly better. She is requesting Benadryl for itching and received a prescription for antiemetic. She was instructed to resume her pain medicines, which she discontinued 10 to 11 days ago. ED Disposition - Plan for ED Patient: Disposition: Home or Assisted Living Diagnosis: Exacerbation of chronic back pain, Non-small cell carcinoma of right lung, stage 4 Instructions: ED Chronic Pain Referrals: Harjinder Borjas MD [Primary Care Provider] - Cheryl Green MD [STAFF PHYSICIAN] - As Needed
[2020-06-12] MEDS: HYDROmorphone 0.5 MG/0.5 ML SYRINGE IV (20:18)
[2020-06-12] MEDS: Ondansetron 4 MG/2 ML Vial IV (20:18)
[2020-06-12 20:30] LABS: Absolute Lymphocyte Count 0.71 X10^3/uL (0.83-4.51); Absolute Neutrophil Count 3.3 X10^3/uL (2.0-7.7); Basophil# 0.03 X10^3/uL; Basophil% 0.6 % (0-1); Eosinophil# 0.19 X10^3/uL; Eosinophils% 4.1 % (0-5); Hematocrit 39.2 % (37-47); Hemoglobin 12.4 g/dL (12.0-15.0); Lymphocyte # 0.71 X10^3/ul (4.0); Lymphocyte % 15.3 % (19-41); Mean Corp Hgb Conc 31.6 g/dL (32-36); Mean Corpuscular Volume 94.7 fL (81-99); Mean Platelet Vol. 8.8 fl (6.2-12.0); Monocyte% 8.6 % (0-10); NRBC Flagged by Analyzer 0 % (0-5); Neutrophil # 3.26 X10^3/uL (2.7-7.7); Neutrophil % 70.5 % (47-70); Platelet Count 296 K/mm3 (150-450); RBC Distribution Width CV 13.8 % (11.6-14.6); RBC Distribution Width SD 47.9 fl (35.1-43.9); Red Blood Count 4.14 M/mm3 (4.2-5.4); White Blood Count 4.6 K/mm3 (4.4-11.0)
[2020-06-12 20:40] LABS: ALB/GLOB Ratio 0.6 RATIO (0.9-2.4); AST(SGOT) 12 U/L (15-37); Alanine Aminotransfer ALT/SGPT 11 U/L (13-56); Albumin, Serum 2.9 g/dL (3.2-5.0); Alkaline Phosphatase 48 U/L (45-117); Anion Gap 4 (5-15); BUN 11 mg/dL (7-18); BUN/Creat Ratio 11.8 RATIO (10-20); Calcium,Total 9.2 mg/dL (8.5-10.1); Chloride 107 mmol/L (98-107); Creatinine, Serum 0.93 mg/dL (0.55-1.02); EST Glomerular Filtration Rate 62 mL/min (>60); Est Glom Filt Rate - Afr Amer 75 mL/min (>60); Estimated Creatinine Clearance 41.91 ml/min; Globulin 4.5 g/dL (2.2-4.2); Glucose 102 mg/dL (74-106); Potassium 3.6 mmol/L (3.5-5.1); Protein, Total 7.4 g/dL (6.4-8.2); Sodium Level 141 mmol/L (136-145)
--- NOTE | 2020-06-12 20:40 | RAD_ITS ---
STUDY: X-RAY - THORACIC SPINE REASON FOR EXAM: Female, 75 years old. NERVE PAIN THAT RADIATES FROM MIDDLE BACK TO MIDDLE ABDOMEN. METASTATIC LUNG CANCER. RECENT REMOVAL OF TUMOR AROUND LOWER THORACIC PAIN. TECHNIQUE: History view(s) of the thoracic spine were obtained. COMPARISON: MRI thoracic spine 09/30/[address] thoracic spine 11/18/2019 FINDINGS: Normal kyphosis of the thoracic spine. There is no substantial scoliosis. Normal thoracic vertebrae and endplates. Normal disc space heights. Posterior interbody fusion rods and pedicular screws T7-L2. Compression fracture T10. The soft tissue structures are unremarkable. RAD/Thoracic Spine 3 Views IMPRESSION: Compression fracture T10 status post posterior fixation Electronically Signed: Mahad Bauman MD at 21:14 EDT , Service support ,
[2020-06-12] MEDS: HYDROmorphone 1 MG/ML Syringe IV (21:47)
--- NOTE | 2020-06-12 22:21 | ED.DCSUM_ITS ---
- ER Visit Summary Date of Service: 06/12/20 Chief Complaint: [] History of Present Illness: The patient is a 75 F [] Physical Examination: [] Test Results: [] Emergency Department Course and Treatment: [] Treatment Plan: [] Disposition: [] Impression: [] This note was generated with [employer] dictation software. It may contain incorrect words, spelling, and punctuation that were not noted in review of the chart prior to signing ED Disposition - Plan for ED Patient: Disposition: Home or Assisted Living Diagnosis: Exacerbation of chronic back pain, Non-small cell carcinoma of right lung, stage 4 Instructions: ED Chronic Pain Prescriptions: Ondansetron [Zofran Odt] 4 mg PO Q8H PRN PRN #10 tab PRN Reason: Nausea Transmission Status: Pending to [email or web address] Referrals: Cheryl Green MD [STAFF PHYSICIAN] - As Needed Harjinder Borjas MD [Primary Care Provider] -
[2020-06-12 22:44] VITALS: BP 145/94; PULSE 96; RESP 15; O2SAT 97
--- NOTE | 2020-06-12 22:45 | ED.RN ---
pt port de-accessed with heparin flush. 2246 aneta alcantar rn
== END 2020-06-12 22:47 | disposition home or self-care (01) ==
PROVIDERS: Emergency Provider Emergency Medicine; PCP Family Medicine
DX: G89.29 Other chronic pain (principal); C34.90 Malignant neoplasm of unspecified part of unspecified bronchus or lung; E66.01 Morbid (severe) obesity due to excess calories; E03.9 Hypothyroidism, unspecified; E78.5 Hyperlipidemia, unspecified
CPT/HCPCS: 36591; 72072; 80053; 85025; 96374; 96375; 96376; 99282; A4216; J2405

== ENCOUNTER 2020-07-06 19:06 | Emergency (ER) | payer MEDICARE, SELFPAY ==
[2018-12-13 14:35] VITALS: BMI 42.2
[2020-07-06 19:07] VITALS: BP 131/72; PULSE 118; RESP 18; TEMP 36.6; O2SAT 95; BMI 36.6
--- NOTE | 2020-07-06 19:30 | RAD_ITS ---
STUDY: X-RAY - ABDOMEN/PELVIS REASON FOR EXAM: Female, 75 years old. constipation, last BM 1.5 weeks ago TECHNIQUE: AP supine and left decubitus views of the abdomen and pelvis. COMPARISON: None. FINDINGS: Right subpulmonic pleural effusion. Increased intestinal bowel gas which appears to be mostly colon. Substantial solid stool in the distal colon. Negative for free air. Grossly negative organomegaly, abdominal or pelvic calcifications. Normal visualized osseous structures. RAD/Abd Inc Decub and/or Erect IMPRESSION: Substantial stool in the distal colon with an increase in proximal colonic bowel gas consistent with constipation, potential impaction. Negative for free air. Right subpulmonic pleural effusion noted. Electronically Signed: Kaylan Rust MD at 19:49 EDT , Service support ,
--- NOTE | 2020-07-06 19:57 | ED.VISSUMM ---
- ER Visit Summary Date of Service: 07/06/20 Chief Complaint: [Constipation] History of Present Illness: The patient is a 75 F [presents to the emergency department with complaint of constipation and no bowel movement for 1-1/2 to 2 weeks. Patient states that she is currently in pain management and is on Lyrica and oxycodone. Patient denies a lot of abdominal discomfort. She denies any fever. She denies nausea or vomiting. Patient took some magnesium citrate earlier in the day without any relief. Patient has history of diabetes, hypertension, history of lung cancer, history of hypothyroidism. She has had prior cholecystectomy.] Physical Examination: [HEENT-PERRLA, EOMI. Cranial nerves II through XII grossly intact. TMs clear. Mucous membranes moist. No adenopathy. Cardiovascular-regular rate and rhythm without murmur or ectopy Lungs-clear to auscultation, chest wall stable without crepitus or subcu emphysema Abdomen-normoactive bowel sounds, soft, nontender, no rebound or rigidity, no peritoneal signs. Rectal exam-patient had hard balls of stool within the rectal vault that were manually removed and disimpacted. No rectal masses palpated. Extremities-intact ?4, normal range of motion, normal pulses, atraumatic] Test Results: [KUB was obtained which showed nonspecific gas pattern and no evidence of obstruction. Patient had signs of constipation and possibly impaction in the distal colon.] Emergency Department Course and Treatment: [Patient had soapsuds enema with large results. Patient felt markedly improved.] Treatment Plan: [Patient advised to push fluids. I will dispense a bottle of magnesium citrate for home. Patient advised to follow-up with her pain management doctor and primary care physician within next 3 to 5 days. Patient advised to return if abdominal pain, fever, vomiting, or condition should worsen anyway.] Disposition: [Discharged home in stable condition] Impression: [Constipation Rectal impaction-resolved] This note was generated with [email or web address] dictation software. It may contain incorrect words, spelling, and punctuation that were not noted in review of the chart prior to signing ED Disposition - Plan for ED Patient: Referrals: Harjinder Borjas MD [Primary Care Provider] -
--- NOTE | 2020-07-06 20:45 | ED.DEP ---
ED Disposition - Plan for ED Patient: Instructions: ED Impaction Fecal Treated, ED Constipation Referrals: Harjinder Borjas MD [Primary Care Provider] - 3-5 Days
[2020-07-06] MEDS: Magnesium Citrate 300 ML PO (21:08)
== END 2020-07-06 21:27 | disposition home or self-care (01) ==
PROVIDERS: Emergency Provider Emergency Medicine; PCP Family Medicine
DX: K59.00 Constipation, unspecified (principal)
CPT/HCPCS: 74019; 99284

== ENCOUNTER 2020-10-01 08:21 | Day surgery (SDC) | payer MEDICARE, SELFPAY ==
[2018-12-13 14:35] VITALS: BMI 42.2
[2020-10-01] VITALS (7 sets, daily range): BP systolic 110–149; BP diastolic 70–83; PULSE 82–89; RESP 16; TEMP 36.2–36.6; O2SAT 97–100; BMI 35.1
--- NOTE | 2020-10-01 09:30 | RAD_ITS ---
PROCEDURE: Right thoracic facet block. DATE OF EXAMINATION: 10/01/2020. INDICATION: Female, 75 years old. Chronic back pain. FLUOROSCOPY TIME (if supplied): (18 seconds) minutes/seconds. 4 images were obtained. Intraoperative fluoroscopic services provided for right T9-T12 thoracic facet block. RAD/Thoracic Spine Min 4 Views IMPRESSION: Intraoperative fluoroscopic services provided for right T9-T12 thoracic facet block. Electronically Signed: Sixto Bess, at 8:39 EST , Service support ,
[2020-10-01] MEDS: MethylPREDNISolone Acetate 40 MG/ML Vial IM (09:38)
[2020-10-01] MEDS: Bupivacaine 0.25% 30 ML Vial (09:38)
--- NOTE | 2020-10-01 12:01 | PCM.OPRPT ---
Report of Operation Date of Procedure: 10/01/20 Description of Surgical Findings:: PREOPERATIVE DIAGNOSIS: Thoracic spondylosis, thoracic degenerative disc disease, thoracic facet arthropathy POSTOPERATIVE DIAGNOSIS: Thoracic spondylosis, thoracic degenerative disc disease, thoracic facet arthropathy PROCEDURE PERFORMED: Right sided thoracic facet steroid injection, T9, T10, T11,-T12 ANESTHESIA: MAC. BLOOD LOSS: Minimal. COMPLICATIONS: None. DESCRIPTION OF PROCEDURE: History and physical of today was reviewed. Risks and benefits of the procedure were explained. The patient understood and agreed to proceed. Informed consent was obtained. IV inserted per routine protocol. The patient was taken to the operating room and placed in the prone position with a pillow positioned underneath the chest. The mid back area was prepped and draped in a sterile fashion using iodine x3. Under fluoroscopy guidance on AP view, the [id number] vertebral bodies were visualized. The skin and subcutaneous tissue was anesthetized with approximately 5 mL of 1% lidocaine using a 25-gauge regular needle. Under direct visualization on fluoroscopy, at approximately 15-degree angle, starting on the right T9, ending on the right T12, passing through the T10 and T11, using a 22-gauge 3-1/2-inch spinal needle, the needle was passed through the skin. The tip of the needle was maneuvered and directed towards the epiphyseal junction of each corresponding vertebra. Once the tip of the needle was at the vicinity of the medial branch and in contact with the bone, the needle was pulled approximately 2 mm off the bone. After negative aspiration for blood or CSF and confirmation on AP as well as oblique view and lateral view, a total of 6 mL of preservative-free 0.25% Marcaine with 80 mg of Depo-Medrol was injected in divided doses between those four levels. The needles were then removed intact. The patient experienced no sign or symptoms of intrathecal or intravascular injection. The patient experienced no paresthesia. The procedure was completed without any apparent difficulty or any complications. The patient appeared to tolerate it well. ASSESSMENT AND PLAN: This is a 75-year-old female with thoracic spondylosis, thoracic degenerative disc disease, thoracic facet arthropathy status post right-sided thoracic facet steroid injection T9-T12, patient will continue her current medications, patient will follow in approximately 2 weeks for reevaluation.
== END 2020-10-01 10:47 | disposition home or self-care (01) ==
LOC: SDC 08:25 → AC 08:30
PROVIDERS: PCP Family Medicine; Referring Provider Anesthesiology Pain Medicine; Visit Provider Anesthesiology Pain Medicine
PROC: 3E0R3BZ Introduction of Anesthetic Agent into Spinal Canal, Percutaneous Approach (ICD-10-PCS; CPT 62281; principal; 2020-10-01 10:00)
DX: M47.814 Spondylosis without myelopathy or radiculopathy, thoracic region (principal); M51.34 Other intervertebral disc degeneration, thoracic region; Z79.899 Other long term (current) drug therapy; Z87.891 Personal history of nicotine dependence; Z85.118 Personal history of other malignant neoplasm of bronchus and lung; E03.9 Hypothyroidism, unspecified; I10 Essential (primary) hypertension; E78.00 Pure hypercholesterolemia, unspecified
CPT/HCPCS: 01992; 64490; 64491; 64492; 72072; 72074; J7120; A4216

== ENCOUNTER → 2020-10-29 12:39 | Outpatient (CLI) | payer MEDICARE, SELFPAY ==
[2018-12-13 14:35] VITALS: BMI 42.2
[2020-10-01 08:45] VITALS: BMI 35.1
--- NOTE | 2020-10-29 12:42 | CT_ITS ---
STUDY: CT CHEST WITH CONTRAST REASON FOR EXAM: Female, 75 years old. MONITORING LUNG CA -- RADIATION and amp;amp; CHEMO RADIATION DOSAGE (If Supplied By Facility): CTDIvol = ( 14.3 ) mGy, DLP = ( 591.36 ) mGycm TECHNIQUE: Transaxial imaging was performed following intravenous administration of IV 100mL Isovue-300. Multiplanar coronal and sagittal images were reformatted. Individualized dose optimization techniques were used for this CT. COMPARISON: Comparison is made with prior study dated 04/30/2020. FINDINGS: A right-sided portacatheter is seen with the tip in the superior vena cava. Stable small right pleural effusion with underlying right basilar atelectasis and/or infiltrate. Stable focal nodular thickening measuring 1.4 cm seen in the medial aspect of the right minor fissure. Normal heart and pericardium. Normal mediastinum. Normal hilar regions. Normal enhanced pulmonary arteries. Normal aorta arch and descending thoracic aorta. Stable multilevel screw and jovany fixation of the mid and lower dorsal spine. Once again, there is evidence of sclerotic metastasis of the lower dorsal vertebrae with the loss of height. There has been no change. There is no demonstrated abnormality of the visualized upper abdomen. CT/Chest WITH Contrast IMPRESSION: Stable examination. Electronically Signed: Sixto Bess, at 15:06 EST , Service support ,
[2020-10-29 13:01] LABS: CREATININE FINGERSTICK 1.2 mg/dL (0.55-1.02)
[2020-10-29] MEDS: 0.9% Saline Lock 10 ML Syringe IV (13:13)
== END ==
PROVIDERS: PCP Family Medicine; Referring Provider Internal Medicine Medical Oncology; Visit Provider Internal Medicine Medical Oncology
DX: C34.2 Malignant neoplasm of middle lobe, bronchus or lung (principal)
CPT/HCPCS: 71260; Q9967; A4216

== ENCOUNTER 2020-11-19 07:36 | Day surgery (SDC) | payer MEDICARE, SELFPAY ==
[2018-12-13 14:35] VITALS: BMI 42.2
[2020-11-05 13:55] VITALS: BMI 35.2
[2020-11-19 08:05] VITALS: BP 145/69; PULSE 94; RESP 18; TEMP 37.1; O2SAT 98; BMI 35.4
[2020-11-19] MEDS: Lactated Ringers 1,000 ML 100 ML IV (08:26)
[2020-11-19] MEDS: Bupivacaine 0.25% 30 ML Vial (08:54)
[2020-11-19] MEDS: Lidocaine 1% (5 ml sdv) 5 ML Vial (08:54)
[2020-11-19] MEDS: MethylPREDNISolone Acetate 40 MG/ML Vial IM (08:54)
--- NOTE | 2020-11-19 08:55 | RAD_ITS ---
STUDY: X-RAY - THORACIC SPINE REASON FOR EXAM: Female, 75 years old. T6-T9 THORACIC FACET INJECTIONS RIGHT TECHNIQUE: 4 intraoperative view(s) of the thoracic spine were obtained. COMPARISON: None. FINDINGS: Intraoperative imaging provided for right T6-T9 thoracic facet injections. RAD/Thoracic Spine Min 4 Views IMPRESSION: Intraoperative imaging provided for right T6-T9 thoracic facet injections. Electronically Signed: Sixto Bess, at 9:20 EST , Service support ,
[2020-11-19 09:05] VITALS: BP 145/69; BP 94/63; PULSE 87; RESP 16; TEMP 36.1; O2SAT 98
[2020-11-19 09:10] VITALS: BP 123/57; BP 145/69; PULSE 89; RESP 16; O2SAT 97
[2020-11-19 09:15] VITALS: BP 128/68; BP 145/69; PULSE 85; RESP 16; O2SAT 98
[2020-11-19 09:20] VITALS: BP 118/73; BP 145/69; PULSE 85; RESP 16; TEMP 36.1; O2SAT 98
[2020-11-19 09:33] VITALS: BP 145/69
--- NOTE | 2020-11-19 09:39 | PCM.OPRPT ---
Report of Operation Date of Procedure: 11/19/20 Description of Surgical Findings:: PREOPERATIVE DIAGNOSIS: Thoracic spondylosis, thoracic degenerative disc disease, thoracic facet arthropathy POSTOPERATIVE DIAGNOSIS: Thoracic spondylosis, thoracic degenerative disc disease, thoracic facet arthropathy PROCEDURE PERFORMED: Right-sided thoracic facet steroid injection, T6, T7, T8 and T9. ANESTHESIA: MAC. BLOOD LOSS: Minimal. COMPLICATIONS: None. DESCRIPTION OF PROCEDURE: History and physical of today was reviewed. Risks and benefits of the procedure were explained. The patient understood and agreed to proceed. Informed consent was obtained. IV inserted per routine protocol. The patient was taken to the operating room and placed in the prone position with a pillow positioned underneath the chest. The mid back area was prepped and draped in a sterile fashion using iodine x3. Under fluoroscopy guidance on AP view, the T5 through T8 vertebral bodies were visualized. The skin and subcutaneous tissue was anesthetized with approximately 5 mL of 1% lidocaine using a 25-gauge regular needle. Under direct visualization on fluoroscopy, at approximately 15-degree angle, starting on the right T6, ending on the right T9, passing through the T7 and T8, using a 22-gauge 3-1/2-inch spinal needle, the needle was passed through the skin. The tip of the needle was maneuvered and directed towards the epiphyseal junction of each corresponding vertebra. Once the tip of the needle was at the vicinity of the medial branch and in contact with the bone, the needle was pulled approximately 2 mm off the bone. After negative aspiration for blood or CSF and confirmation on AP as well as oblique view and lateral view, a total of 6 mL of preservative-free 0.25% Marcaine with 80 mg of Depo-Medrol was injected in divided doses between those four levels. The needles were then removed intact. The patient experienced no sign or symptoms of intrathecal or intravascular injection. The patient experienced no paresthesia. The procedure was completed without any apparent difficulty or any complications. The patient appeared to tolerate it well. ASSESSMENT AND PLAN: This is a 75-year-old female with thoracic spondylosis, thoracic degenerative disc disease, thoracic facet arthropathy status post right-sided thoracic facet steroid injection T6-T9, patient will continue her current medications, patient will follow approximately 2 weeks for reevaluation.
== END 2020-11-19 09:59 | disposition home or self-care (01) ==
LOC: SDC 07:40 → AC 07:40
PROVIDERS: PCP Family Medicine; Referring Provider Anesthesiology Pain Medicine; Visit Provider Anesthesiology Pain Medicine
PROC: 3E0R3BZ Introduction of Anesthetic Agent into Spinal Canal, Percutaneous Approach (ICD-10-PCS; CPT 62281; principal; 2020-11-19 08:50)
DX: M47.814 Spondylosis without myelopathy or radiculopathy, thoracic region (principal); M51.34 Other intervertebral disc degeneration, thoracic region; N32.81 Overactive bladder; E07.9 Disorder of thyroid, unspecified; Z85.118 Personal history of other malignant neoplasm of bronchus and lung; E78.00 Pure hypercholesterolemia, unspecified; Z92.21 Personal history of antineoplastic chemotherapy; Z92.3 Personal history of irradiation; Z87.19 Personal history of other diseases of the digestive system; Z86.2 Personal history of diseases of the blood and blood-forming organs and certain disorders involving the immune mechanism; Z79.899 Other long term (current) drug therapy; Z87.891 Personal history of nicotine dependence; M48.04 Spinal stenosis, thoracic region
CPT/HCPCS: 01992; 64490; 64491; 64492; 72074; J7120; A4216

== ENCOUNTER 2020-11-23 22:07 | Emergency (ER) | payer MEDICARE, SELFPAY ==
[2018-12-13 14:35] VITALS: BMI 42.2
[2020-11-23 22:08] VITALS: BP 139/95; PULSE 103; RESP 18; TEMP 36.8; O2SAT 97; BMI 34.4
--- NOTE | 2020-11-23 22:16 | EKG12_ITS ---
Test Reason : CP Blood Pressure : / mmHG Vent. Rate : 104 BPM Atrial Rate : 104 BPM P-R Int : 200 ms QRS Dur : 078 ms QT Int : 340 ms P-R-T Axes : 043 -58 027 degrees QTc Int : 447 ms Sinus tachycardia Left axis deviation Inferior infarct , age undetermined Abnormal ECG Confirmed by HAYLEE BRISENO, KATEY ([id number]), director patient KATYA RAY ([id number]) on 11/26/2020 9:44:07 AM Referred By: ANA LAURA Confirmed By:KATEY LEACH MD
[2020-11-23 22:17] VITALS: O2SAT 99
--- NOTE | 2020-11-23 22:20 | RAD_ITS ---
HISTORY: CHEST PAIN INTO NECK WITH INDIGESTION SINCE 1300 TODAY EXAM: XR Chest 1 View: COMPARISON: November 22, 2019 chest x-ray. October 29, 2020 CTA chest FINDINGS: # of images incl. paperwork: 1 Extensive thoracolumbar spinal fixation surgery has been performed with a hardware remaining in place. Right chest wall single lead right IJ access central venous port catheter remains in place. Large right pleural effusion remains. Right basilar atelectasis remains. . Heart is not enlarged. No acute osseous pathology perceived. Pulmonary vascularity is distinct. No effusions. RAD/Chest 1 View (Portable) IMPRESSION: No change. at 2241 Reported and signed by: Forest Dunbar MD Electronically Signed: Forest Dunbar MD at 22:40 EST Tel , Service support ,
[2020-11-23 22:23] LABS: Absolute Lymphocyte Count 0.74 X10^3/uL (0.83-4.51); Absolute Neutrophil Count 9.9 X10^3/uL (2.0-7.7); Basophil# 0.05 X10^3/uL; Basophil% 0.4 % (0-1); Eosinophil# 0.15 X10^3/uL; Eosinophils% 1.3 % (0-5); Hematocrit 38.7 % (37-47); Hemoglobin 12.4 g/dL (12.0-15.0); Lymphocyte # 0.74 X10^3/ul (4.0); Lymphocyte % 6.3 % (19-41); Mean Corpuscular Hgb 29.8 pg (27.0-32.0); Mean Platelet Vol. 8.9 fl (6.2-12.0); Monocyte# 0.89 X10^3/uL; Monocyte% 7.5 % (0-10); NRBC Flagged by Analyzer 0 % (0-5); Neutrophil # 9.93 X10^3/uL (2.7-7.7); Neutrophil % 84.1 % (47-70); Platelet Count 277 K/mm3 (150-450); RBC Distribution Width CV 13.6 % (11.6-14.6); RBC Distribution Width SD 46.5 fl (35.1-43.9); Red Blood Count 4.16 M/mm3 (4.2-5.4); White Blood Count 11.8 K/mm3 (4.4-11.0)
--- NOTE | 2020-11-23 22:41 | CT_ITS ---
HISTORY: CHEST PAIN. HX OF LUNG CANCER WITH BONE METS TO SPINE CHEMO AND RADIATION. 2019 TECHNIQUE: Helically acquired images were obtained of the chest following the intravenous administration of 100 ML of Isovue-370 Iodinated contrast. as per pulmonary angiogram protocol with 2D , without 3-D MIP reconstructions. A radiation dose optimization technique was used for this scan. COMPARISON: Comparison chest x-rays available from less than one hour earlier. Comparison CTA of the chest is available from October 29, 2020. FINDINGS: # of images incl. paperwork: [id number] Moderate size possibly loculated right pleural effusion remains. Severe volume loss within the right lower lobe remains. Pulmonary hyperexpansion is similar. Minimal left basilar atelectasis. Right chest wall single lumen port has its catheter tip within the SVC.. Within the thoracic spinethere is a kyphosis. Extensive posterior cervical fixation from the from T7 into the L2 vertebral body bypassing the T10 vertebral body Vertebral body height is normal except at the T10 level there is loss of vertebral body height sclerosis, and fracture of the posterior margin of the bone with extension of bone posteriorly into the spinal canal. Laminectomy at T10 and T11 has been performed. Facets are well aligned. The appearance of the T10 vertebral body. The appearance of the posterior spinal fixation. The appearance of the inferior endplate Schmorl's node within the T8 vertebral body and sclerosis within T8 are similar to the previous study. Heart is not enlarged. Thoracic aorta elongated with atherosclerotic plaque. The patient has a normal anatomic variant, bovine arch, with common origin of the right brachiocephalic artery and left common carotid artery. . No aneurysms, stenoses, dissections, nor occlusions. No axillary or mediastinal adenopathy. No pulmonary emboli. Visualized portions of the upper abdomen are without identified acute pathology. CT/CTA Chest W/WO Contrast IMPRESSION: No pulmonary embolism, aortic aneurysm, or aortic dissection. Large chronic right pleural effusion with right lung atelectasis. Tiny left pleural effusion. Left basilar atelectasis is minimal. Adequate position of single lumen right chest wall port. Extensive posterior spinal fixation across the T10 level with likely a pathological fracture at T10. Minimal extension of bone posteriorly from the T10 vertebral body into the spinal canal with laminectomies at the T10 and T11 levels is chronic. Changes to the T8 vertebral may also be indicative of metastatic disease. This is also unchanged. Individualized dose optimization techniques were used for this CT. at 2337 Reported and signed by: Forest Dunbar MD Electronically Signed: Forest Dunbar MD at 23:35 EST Tel , Service support ,
[2020-11-23 22:42] LABS: Anion Gap 3 (5-15); BUN 19 mg/dL (7-18); BUN/Creat Ratio 20.8 RATIO (10-20); Calcium,Total 9.8 mg/dL (8.5-10.1); Chloride 107 mmol/L (98-107); Creatinine, Serum 0.91 mg/dL (0.55-1.02); EST Glomerular Filtration Rate 63 mL/min (>60); Est Glom Filt Rate - Afr Amer 77 mL/min (>60); Estimated Creatinine Clearance 44.71 ml/min; Glucose 138 mg/dL (74-106); Potassium 3.8 mmol/L (3.5-5.1); Sodium Level 139 mmol/L (136-145)
[2020-11-23] MEDS: Aspirin 81 MG TAB.CHEW 324 MG PO (22:52)
[2020-11-23] MEDS: HYDROmorphone 1 MG/ML Syringe IV (22:53)
[2020-11-23 23:32] VITALS: BP 132/62; PULSE 16; RESP 19; O2SAT 99
--- NOTE | 2020-11-23 23:45 | ED.VISSUMM ---
- ER Visit Summary Date of Service: 11/23/20 Chief Complaint: Chest pain History of Present Illness: The patient is a [address] Borjas and Dr. Gates. Who reports that she has pain surrounding her left clavicle that began at 1:00 this afternoon. Is been a continuous sharp pain since that time. Is 10 of 10 severity. Is worsened by breathing. Is unchanged with exertion. She relieved by nothing. She denies any associated nausea, vomiting, diaphoresis. She is mildly short of breath. Patient reports she is never had anything like this before. She does have a history of lung cancer with mets to her thoracic spine that required fusion. She denies any fever, chills, or cough. She denies personal or family history of DVT. She quit smoking approximately 35 years ago. She has not had chemotherapy since January of last year. Physical Examination: Vitals: Stable. Afebrile. General: Well-nourished and well-developed. Head: Normocephalic atraumatic. Neck: Supple, no lymphadenopathy. No JVD. Nontender. Cardiovascular: Regular rate and rhythm. No murmurs. Respiratory: No respiratory distress. Clear to auscultation bilaterally. Nontender. No crepitus. Abdominal: Soft, nontender, nondistended, normal bowel sounds. No guarding, rebound, or peritoneal signs. Back: Nontender. Extremities: Nontender, 1+ edema lower extremities bilaterally. Skin: Normal color, no rash. Neurologic: Alert and oriented ?3. Cranial nerves II through XII are intact. Normal strength and sensation. Psych: Normal affect. Test Results: EKG is sinus tach at [address] changes. Is unchanged from April 2019. Troponin is negative. Chem-7 shows a BUN of 19 and glucose 138. CBC shows a white count of 11.8 with 84 segmented neutrophils and 6 lymphocytes. Clinical Impression(s) from Imaging Studies Chest X-Ray 11/23/20 22:20 IMPRESSION: No change. at 2241 Reported and signed by: Forest Dunbar MD Electronically Signed: Forest Dunbar MD at 22:40 EST Tel , Service support , Chest CTA 11/23/20 22:41 IMPRESSION: No pulmonary embolism, aortic aneurysm, or aortic dissection. Large chronic right pleural effusion with right lung atelectasis. Tiny left pleural effusion. Left basilar atelectasis is minimal. Adequate position of single lumen right chest wall port. Extensive posterior spinal fixation across the T10 level with likely a pathological fracture at T10. Minimal extension of bone posteriorly from the T10 vertebral body into the spinal canal with laminectomies at the T10 and T11 levels is chronic. Changes to the T8 vertebral may also be indicative of metastatic disease. This is also unchanged. Individualized dose optimization techniques were used for this CT. at 2337 Reported and signed by: Forest Dunbar MD Electronically Signed: Forest Dunbar MD at 23:35 EST Tel , Service support , Emergency Department Course and Treatment: Patient was initially given aspirin p.o. She was again given Dilaudid and Zofran IV. She is resting more comfortably. Treatment Plan: An [facility] report was obtained which shows she has not had opiate medications since June. Patient will be discharged with Percocet and Zofran. Instructed to follow-up with Dr. Morrison as soon as possible. Follow-up with Dr. Borjas soon as possible as well. Return to the emergency department for any worsening symptoms. Disposition: To home in improved and stable condition. Impression: 1. Atypical chest pain. 2. History of lung cancer. This note was generated with mYwindowation software. It may contain incorrect words, spelling, and punctuation that were not noted in review of the chart prior to signing ED Disposition - Plan for ED Patient: Instructions: ED Chest Pain, Uncertain Cause Prescriptions: Oxycodone HCl/Acetaminophen [Percocet 5/325] 1 tablet PO Q6H PRN PRN 3 Days #12 tablet PRN Reason: Pain Ondansetron [Zofran Odt] 4 mg PO Q8H PRN PRN #10 tablet PRN Reason: Nausea Referrals: Harjinder Borjas MD [Primary Care Provider] - As soon as possible Lenny Morrison, DO [NON-STAFF] - As soon as possible
[2020-11-23] MEDS: Ondansetron 4 MG/2 ML Vial IV (23:48)
[2020-11-23 23:51] VITALS: BP 117/59; PULSE 115; RESP 21; O2SAT 97
[2020-11-24 00:48] VITALS: BP 134/68; PULSE 109; RESP 22; O2SAT 98
[2020-11-24] MEDS: Ondansetron 4 MG/2 ML Vial IV (00:54)
== END 2020-11-24 01:22 | disposition home or self-care (01) ==
PROVIDERS: Emergency Provider Emergency Medicine; PCP Family Medicine
DX: R07.9 Chest pain, unspecified (principal); Z87.891 Personal history of nicotine dependence
CPT/HCPCS: 36591; 71045; 71275; 80048; 84484; 85025; 93005; 96374; 96375; 96376; 99285; Q9967; A4216; J2405

== ENCOUNTER 2020-12-17 07:44 | Day surgery (SDC) | payer MEDICARE, SELFPAY ==
[2018-12-13 14:35] VITALS: BMI 42.2
[2020-12-17 08:03] VITALS: BP 140/51; PULSE 98; RESP 20; TEMP 36.3; O2SAT 100; BMI 35.3
[2020-12-17] MEDS: Lactated Ringers 1,000 ML 100 ML IV (08:24)
[2020-12-17] MEDS: Lidocaine 1% (5 ml sdv) 5 ML Vial (08:51)
[2020-12-17] MEDS: MethylPREDNISolone Acetate 40 MG/ML Vial IM (08:52)
[2020-12-17] MEDS: Bupivacaine 0.25% 30 ML Vial (08:52)
[2020-12-17 09:04] VITALS: BP 137/61; BP 140/51; PULSE 85; RESP 16; TEMP 36.3; O2SAT 100
[2020-12-17 09:09] VITALS: BP 135/71; BP 140/51; PULSE 82; RESP 16; O2SAT 100
[2020-12-17 09:15] VITALS: BP 131/69; BP 140/51; PULSE 86; RESP 16; O2SAT 99
[2020-12-17 09:22] VITALS: BP 139/68; BP 140/51; PULSE 84; RESP 16; TEMP 36.2; O2SAT 99
--- NOTE | 2020-12-17 09:40 | RAD_ITS ---
PROCEDURE: Thoracic facet injection. DATE OF EXAMINATION: 12/17/2020 INDICATION: Female, 75 years old. Back pain. FLUOROSCOPY TIME (if supplied): (7 seconds) minutes/seconds. 5 images were obtained. Intraoperative imaging provided for left T6-T9 facet joint injection. RAD/Thoracic Spine Min 4 Views IMPRESSION: Intraoperative imaging provided for left T6-T9 facet joint injection. Electronically Signed: Sixto Bess MD at 10:17 EST , Service support ,
[2020-12-17 09:45] VITALS: BP 140/51
--- NOTE | 2020-12-17 10:16 | OP.PCM_ITS ---
Report of Operation Date of Procedure: 12/17/20 Description of Surgical Findings:: PREOPERATIVE DIAGNOSIS: Thoracic spondylosis, thoracic degenerative disc disease, thoracic facet arthropathy POSTOPERATIVE DIAGNOSIS: Thoracic spondylosis, thoracic degenerative disc disease, thoracic facet arthropathy PROCEDURE PERFORMED: Left-sided thoracic facet steroid injection, T6, T7, T8 and T9. ANESTHESIA: MAC. BLOOD LOSS: Minimal. COMPLICATIONS: None. DESCRIPTION OF PROCEDURE: History and physical of today was reviewed. Risks and benefits of the procedure were explained. The patient understood and agreed to proceed. Informed consent was obtained. IV inserted per routine protocol. The patient was taken to the operating room and placed in the prone position with a pillow positioned underneath the chest. The mid back area was prepped and draped in a sterile fashion using iodine x3. Under fluoroscopy guidance on AP view, the T6 through T9 vertebral bodies were visualized. The skin and subcutaneous tissue was anesthetized with approximately 5 mL of 1% lidocaine using a 25-gauge regular needle. Under direct visualization on fluoroscopy, at approximately 15-degree angle, starting on the left T6, ending on the left T9, passing through the T7 and T8, using a 22-gauge 3-1/2-inch spinal needle, the needle was passed through the skin. The tip of the needle was maneuvered and directed towards the epiphyseal junction of each corresponding vertebra. Once the tip of the needle was at the vicinity of the medial branch and in contact with the bone, the needle was pulled approximately 2 mm off the bone. After neg ative aspiration for blood or CSF and confirmation on AP as well as oblique view and lateral view, a total of 6 mL of preservative-free 0.25% Marcaine with 80 mg of Depo-Medrol was injected in divided doses between those four levels. The needles were then removed intact. The patient experienced no sign or symptoms of intrathecal or intravascular injection. The patient experienced no paresthesia. The procedure was completed without any apparent difficulty or any complications. The patient appeared to tolerate it well. ASSESSMENT AND PLAN: This is a 75-year-old female with thoracic spondylosis, thoracic degenerative disc disease, thoracic facet arthropathy status post left-sided thoracic facet steroid injection T6-T9, patient will continue her current medications, patient will follow approximately 2 weeks for reevaluation.
== END 2020-12-17 09:50 | disposition home or self-care (01) ==
LOC: SDC 07:45 → AC 07:45
PROVIDERS: PCP Family Medicine; Referring Provider Anesthesiology Pain Medicine; Visit Provider Anesthesiology Pain Medicine
PROC: 3E0R3BZ Introduction of Anesthetic Agent into Spinal Canal, Percutaneous Approach (ICD-10-PCS; CPT 62281; principal; 2020-12-17 09:05)
DX: M47.814 Spondylosis without myelopathy or radiculopathy, thoracic region (principal); M51.34 Other intervertebral disc degeneration, thoracic region; E07.9 Disorder of thyroid, unspecified; Z85.118 Personal history of other malignant neoplasm of bronchus and lung; Z85.89 Personal history of malignant neoplasm of other organs and systems; E78.00 Pure hypercholesterolemia, unspecified; Z87.891 Personal history of nicotine dependence; Z79.899 Other long term (current) drug therapy
CPT/HCPCS: 01992; 64490; 64491; 64492; 72074; J7120; A4216

== ENCOUNTER 2021-01-14 08:00 | Day surgery (SDC) | payer MEDICARE, SELFPAY ==
[2018-12-13 14:35] VITALS: BMI 42.2
[2021-01-14] VITALS (7 sets, daily range): BP systolic 85–169; BP diastolic 54–97; PULSE 72–91; RESP 16; TEMP 35.9–37.1; O2SAT 93–100; BMI 35.4
[2021-01-14] MEDS: Lactated Ringers 1,000 ML 100 ML IV (08:31)
--- NOTE | 2021-01-14 09:24 | RAD_ITS ---
STUDY: X-RAY - THORACIC SPINE REASON FOR EXAM: Female, 75 years old. THORACIC FACET INJECTION, T9-12,LEFT TECHNIQUE: For intraoperative view(s) of the thoracic spine were obtained. COMPARISON: None. FINDINGS: Intraoperative fluoroscopic services provided for left T9-T12 facet injection. RAD/Thoracic Spine 3 Views IMPRESSION: Intraoperative imaging provided for left T9-T12 facet joint injection. Electronically Signed: Sixto Bess MD at 12:42 EST , Service support ,
[2021-01-14] MEDS: MethylPREDNISolone Acetate 40 MG/ML Vial IM (09:33)
[2021-01-14] MEDS: Lidocaine 1% (5 ml sdv) 5 ML Vial (09:34)
[2021-01-14] MEDS: Bupivacaine 0.25% 30 ML Vial (09:34)
--- NOTE | 2021-01-14 12:22 | OP.PCM_ITS ---
Report of Operation Date of Procedure: 01/14/21 Description of Surgical Findings:: PREOPERATIVE DIAGNOSIS: Thoracic spondylosis, thoracic degenerative disc disease, thoracic facet arthropathy POSTOPERATIVE DIAGNOSIS: Thoracic spondylosis, thoracic degenerative disc disease, thoracic facet arthropathy PROCEDURE PERFORMED: Left-sided thoracic facet steroid injection, T9, T10, T11, T12 ANESTHESIA: MAC. BLOOD LOSS: Minimal. COMPLICATIONS: None. DESCRIPTION OF PROCEDURE: History and physical of today was reviewed. Risks and benefits of the procedure were explained. The patient understood and agreed to proceed. Informed consent was obtained. IV inserted per routine protocol. The patient was taken to the operating room and placed in the prone position with a pillow positioned underneath the chest. The mid back area was prepped and draped in a sterile fashion using iodine x3. Under fluoroscopy guidance on AP view, the [id number] T12 vertebral bodies were visualized. The skin and subcutaneous tissue was anesthetized with approximately 5 mL of 1% lidocaine using a 25-gauge regular needle. Under direct visualization on fluoroscopy, at approximately 15-degree angle, starting on the left T9, ending on the left T12, passing through the T10 and T11, using a 22-gauge 3-1/2-inch spinal needle, the needle was passed through the skin. The tip of the needle was maneuvered and directed towards the epiphyseal junction of each corresponding vertebra. Once the tip of the needle was at the vicinity of the medial branch and in contact with the bone, the needle was pulled approximately 2 mm off the bone. After n egative aspiration for blood or CSF and confirmation on AP as well as oblique view and lateral view, a total of 6 mL of preservative-free 0.25% Marcaine with 80 mg of Depo-Medrol was injected in divided doses between those four levels. The needles were then removed intact. The patient experienced no sign or symptoms of intrathecal or intravascular injection. The patient experienced no paresthesia. The procedure was completed without any apparent difficulty or any complications. The patient appeared to tolerate it well. ASSESSMENT AND PLAN: This is a 75-year-old female with thoracic spondylosis, thoracic degenerative disc disease, thoracic facet arthropathy status post left-sided thoracic facet steroid injection T9-T12, patient will continue her current medications, patient will follow approximately 2 weeks for reevaluation.
== END 2021-01-14 10:59 | disposition home or self-care (01) ==
LOC: SDC 08:01 → AC 08:01
PROVIDERS: PCP Family Medicine; Referring Provider Anesthesiology Pain Medicine; Visit Provider Anesthesiology Pain Medicine
PROC: 3E0R3BZ Introduction of Anesthetic Agent into Spinal Canal, Percutaneous Approach (ICD-10-PCS; CPT 62281; principal; 2021-01-14 09:25)
DX: M47.814 Spondylosis without myelopathy or radiculopathy, thoracic region (principal); M51.34 Other intervertebral disc degeneration, thoracic region; E78.00 Pure hypercholesterolemia, unspecified; E03.9 Hypothyroidism, unspecified; I10 Essential (primary) hypertension; Z87.891 Personal history of nicotine dependence; Z85.038 Personal history of other malignant neoplasm of large intestine; Z79.899 Other long term (current) drug therapy; Z85.118 Personal history of other malignant neoplasm of bronchus and lung; Z92.21 Personal history of antineoplastic chemotherapy; Z92.3 Personal history of irradiation
CPT/HCPCS: 64490; 64491; 64492; 72072; J7120; A4216

== ENCOUNTER 2021-04-01 09:11 | Day surgery (SDC) | payer MEDICARE, SELFPAY ==
[2018-12-13 14:35] VITALS: BMI 42.2
[2021-01-14 08:26] VITALS: BMI 35.4
[2021-04-01 09:53] VITALS: BP 148/66; PULSE 96; RESP 16; TEMP 36.6; O2SAT 95; BMI 33.7
[2021-04-01] MEDS: Lactated Ringers 1,000 ML 100 ML IV (10:00)
--- NOTE | 2021-04-01 10:47 | RAD_ITS ---
STUDY: C-ARM FILMS FOR FACET INJECTION REASON FOR EXAM: Female, 75 years old. FACETS INJECTION, T9-T12,BILAT RADIATION DOSAGE (If Supplied By Facility): CTDIvol = ( ) mGy, DLP = ( ) mGycm. Individualized dose optimization techniques were used for this CT.? FLUOROSCOPY TIME (if supplied): ( 44 ) seconds, 8 C-arm films obtained TECHNIQUE: Fluoroscopy and C-arm films obtained during facet joint injection COMPARISON: None. FINDINGS: 8 Limited intraoperative C-arm films were performed as patient has undergone T9-T12 facet injections bilaterally. Plain films show no suspicious findings. RAD/Thoracic Spine Min 4 Views IMPRESSION: Sonography and C-arm films provided for facet joint injection Electronically Signed: Ricky Rizo MD at 13:25 EDT , Service support ,
[2021-04-01] MEDS: Lidocaine 1% (5 ml sdv) 5 ML Vial (10:51)
[2021-04-01] MEDS: Bupivacaine 0.25% 30 ML Vial (10:51)
[2021-04-01] MEDS: MethylPREDNISolone Acetate 80 MG/ML Vial (10:51)
[2021-04-01 11:05] VITALS: BP 115/54; BP 148/66; PULSE 97; RESP 16; TEMP 36.4; O2SAT 100
[2021-04-01 11:10] VITALS: BP 111/64; BP 148/66; PULSE 89; RESP 16; O2SAT 99
[2021-04-01 11:15] VITALS: BP 116/60; BP 148/66; PULSE 90; RESP 16; O2SAT 100
[2021-04-01 11:20] VITALS: BP 119/63; BP 148/66; PULSE 94; RESP 16; TEMP 36.7; O2SAT 99
[2021-04-01 11:30] VITALS: BP 148/66
--- NOTE | 2021-04-01 15:57 | OP.PCM_ITS ---
Report of Operation Description of Surgical Findings:: PREOPERATIVE DIAGNOSIS: Thoracic spondylosis, thoracic degenerative disc disease, thoracic facet arthropathy POSTOPERATIVE DIAGNOSIS: Thoracic spondylosis, thoracic degenerative disc disease, thoracic facet arthropathy PROCEDURE PERFORMED: Bilateral thoracic facet steroid injection T9 [id number] ANESTHESIA: MAC. BLOOD LOSS: Minimal. COMPLICATIONS: None. DESCRIPTION OF PROCEDURE: History and physical of today was reviewed. Risks and benefits of the procedure were explained. The patient understood and agreed to proceed. Informed consent was obtained. IV inserted per routine protocol. The patient was taken to the operating room and placed in the prone position with a pillow positioned underneath the chest. The mid back area was prepped and draped in a sterile fashion using iodine x3. Under fluoroscopy guidance on AP view, the T9-T12 vertebral bodies were visualized. The skin and subcutaneous tissue was anesthetized with approximately 5 mL of 1% lidocaine using a 25-gauge regular needle. Under direct visualization on fluoroscopy, at approximately 15- degree angle, starting on the left T9 ending on the right T9 passing through bilateral [id number], using a 22-gauge 3-1/2-inch spinal needle, the needle was passed through the skin. The tip of the needle was maneuvered and directed towards the epiphyseal junction of each corresponding vertebra. Once the tip of the needle was at the vicinity of the medial branch and in contact with the bone, the needle was pulled approximately 2 mm off the bone. After negative aspiration for blood or CSF and confirmation on AP as well as oblique view and lateral view, a total of 12 mL of preservative-free 0.25% Marcaine with 80 mg of Depo-Medrol was injected in divided doses between those 8 levels. The needles were then removed intact. The patient experienced no sign or symptoms of intrathecal or intravascular injection. The patient experienced no paresthesia. The procedure was completed without any apparent difficulty or any complications. The patient appeared to tolerate it well. ASSESSMENT AND PLAN: This is a 75-year-old female with thoracic spondylosis, thoracic degenerative disc disease, thoracic facet arthropathy status post bilateral thoracic facet steroid injection T9-T12, patient will continue her current medications, patient will follow in approximately 2 weeks for reevaluation.
== END 2021-04-01 11:46 ==
LOC: SDC 09:11 → AC 09:31
PROVIDERS: PCP Family Medicine; Referring Provider Anesthesiology Pain Medicine; Visit Provider Anesthesiology Pain Medicine
PROC: 3E0R3BZ Introduction of Anesthetic Agent into Spinal Canal, Percutaneous Approach (ICD-10-PCS; CPT 62281; principal; 2021-04-01 10:55)
DX: M51.14 Intervertebral disc disorders with radiculopathy, thoracic region (principal); M47.24 Other spondylosis with radiculopathy, thoracic region; M48.04 Spinal stenosis, thoracic region; E78.5 Hyperlipidemia, unspecified; E03.9 Hypothyroidism, unspecified; I10 Essential (primary) hypertension; E66.01 Morbid (severe) obesity due to excess calories; K21.9 Gastro-esophageal reflux disease without esophagitis; E11.42 Type 2 diabetes mellitus with diabetic polyneuropathy; Z87.891 Personal history of nicotine dependence; Z85.118 Personal history of other malignant neoplasm of bronchus and lung; Z79.899 Other long term (current) drug therapy; M47.817 Spondylosis without myelopathy or radiculopathy, lumbosacral region
CPT/HCPCS: 64490; 64491 ×2; 64492 ×2; 72074; J7120; A4216

== ENCOUNTER → 2021-05-01 13:42 | Outpatient (CLI) | payer MEDICARE, SELFPAY ==
[2018-12-13 14:35] VITALS: BMI 42.2
[2021-01-14 08:26] VITALS: BMI 35.4
[2021-04-01 09:53] VITALS: BMI 33.7
--- NOTE | 2021-05-01 13:47 | CT_ITS ---
STUDY: CT CHEST WITH CONTRAST REASON FOR EXAM: Female, 75 years old. LUNG cancer. Treated with chemotherapy and radiation therapy. RADIATION DOSAGE (If Supplied By Facility): CTDIvol = ( 8.85 ) mGy, DLP = ( 375.71 ) mGycm TECHNIQUE: Transaxial imaging was performed following intravenous administration of IV 100ML ISOVUE 300. Multiplanar coronal and sagittal images were reformatted. Individualized dose optimization techniques were used for this CT. COMPARISON: Comparison is made with prior examination dated 10/29/2020. FINDINGS: A right-sided portacatheter is seen with the tip in the superior vena cava. Moderate sized right pleural effusion with infiltration and/or atelectasis in the posterior medial segment of the right lower lobe. Air bronchograms are seen. This has improved as compared to prior study. Minimal pericardial effusion. There are calcifications of the coronary arteries. Mild cardiomegaly. Normal mediastinum. Normal hilar regions. Normal enhanced pulmonary arteries. Normal aorta arch and descending thoracic aorta. Stable sclerotic metastasis of the dorsal vertebrae with the loss of height. Stable multilevel interpedicular screw and jovany fixation of the lower thoracic and upper lumbar vertebrae. There is no demonstrated abnormality of the visualized upper abdomen. CT/Chest WITH Contrast IMPRESSION: Moderate degree of right pleural effusion with right basilar atelectasis and/or infiltrate which has improved as compared to prior study. The remainder of the examination is unchanged. Bony metastasis. Electronically Signed: Sixto Bess MD at 14:59 EDT , Service support ,
[2021-05-01] MEDS: 0.9% Saline Lock 10 ML Syringe IV (14:05)
== END ==
PROVIDERS: PCP Family Medicine; Referring Provider Internal Medicine Medical Oncology; Visit Provider Internal Medicine Medical Oncology
DX: C34.2 Malignant neoplasm of middle lobe, bronchus or lung (principal)
CPT/HCPCS: 71260; Q9967; A4216

== ENCOUNTER → 2021-05-06 12:38 | Outpatient (CLI) | payer MEDICARE, SELFPAY ==
[2018-12-13 14:35] VITALS: BMI 42.2
[2021-05-06 13:10] LABS: Absolute Lymphocyte Count 0.86 X10^3/uL (0.83-4.51); Absolute Neutrophil Count 3.4 X10^3/uL (2.0-7.7); Basophil# 0.04 X10^3/uL; Basophil% 0.8 % (0-1); Eosinophil# 0.12 X10^3/uL; Eosinophils% 2.5 % (0-5); Hematocrit 40.5 % (37-47); Hemoglobin 12.7 g/dL (12.0-15.0); Lymphocyte # 0.86 X10^3/ul (0.83-4.51); Mean Corp Hgb Conc 31.4 g/dL (32-36); Mean Corpuscular Hgb 29.6 pg (27.0-32.0); Mean Corpuscular Volume 94.4 fL (81-99); Monocyte# 0.38 X10^3/uL; Monocyte% 7.9 % (0-10); NRBC Flagged by Analyzer 0 % (0-5); Neutrophil # 3.36 X10^3/uL (2.7-7.7); Neutrophil % 70.4 % (47-70); Platelet Count 342 K/mm3 (150-450); RBC Distribution Width CV 13.2 % (11.6-14.6); RBC Distribution Width SD 46.1 fl (35.1-43.9); Red Blood Count 4.29 M/mm3 (4.2-5.4); White Blood Count 4.8 K/mm3 (4.4-11.0)
[2021-05-06 13:26] LABS: ALB/GLOB Ratio 0.7 RATIO (0.9-2.4); AST(SGOT) 12 U/L (15-37); Alanine Aminotransfer ALT/SGPT 11 U/L (13-56); Alkaline Phosphatase 42 U/L (45-117); Anion Gap 7 (5-15); BUN 10 mg/dL (7-18); BUN/Creat Ratio 11.9 RATIO (10-20); Calcium,Total 9.3 mg/dL (8.5-10.1); Chloride 107 mmol/L (98-107); Creatinine, Serum 0.84 mg/dL (0.55-1.02); EST Glomerular Filtration Rate 70 mL/min (>60); Est Glom Filt Rate - Afr Amer 84 mL/min (>60); Globulin 4.3 g/dL (2.2-4.2); Glucose 99 mg/dL (74-106); Potassium 4.1 mmol/L (3.5-5.1); Protein, Total 7.3 g/dL (6.4-8.2); Sodium Level 141 mmol/L (136-145)
[2021-05-06 13:30] LABS: Cholesterol 234 mg/dL (200); High Density Lipoprotein 48 mg/dL; LDH 115 U/L (84-246); Triglycerides 200 mg/dL; Very Low Density Lipoprotein 40 mg/dL (5-40)
[2021-05-06 13:35] LABS: Microalbumin,Random Urine 14.2 mg/L (NO RANGE EST.); Microalbumin:Creatinine Ratio 39.6 mg/g CRE (<30 mg/g CRE)
[2021-05-06 21:06] LABS: Xtra Tube EP Lab EXTRA TUBE
== END ==
PROVIDERS: Internal Medicine Medical Oncology; PCP Family Medicine; Referring Provider Family Medicine; Visit Provider Family Medicine
DX: E11.9 Type 2 diabetes mellitus without complications (principal); E78.2 Mixed hyperlipidemia; C34.90 Malignant neoplasm of unspecified part of unspecified bronchus or lung
CPT/HCPCS: 36591; 80053; 80061; 82043; 82570; 83615; 85025; A4216

== ENCOUNTER 2021-06-03 10:52 | Day surgery (SDC) | payer MEDICARE, SELFPAY ==
[2018-12-13 14:35] VITALS: BMI 42.2
[2021-05-06 15:07] VITALS: BMI 32.5
[2021-06-03] MEDS: Lactated Ringers 1,000 ML 100 ML IV (12:35)
[2021-06-03 12:51] VITALS: BP 152/62; PULSE 88; RESP 16; TEMP 35.8; O2SAT 100; BMI 74.0
--- NOTE | 2021-06-03 13:20 | RAD_ITS ---
PROCEDURE: Left T9-T12 facet steroid injection. DATE OF EXAMINATION: 06/03/2021. INDICATION: Female, 76 years old. Chronic back pain. Prior fusion. FLUOROSCOPY TIME (if supplied): (15.2 seconds) . 5 images were obtained. Minutes/seconds RAD/Thoracic Spine 3 Views IMPRESSION: Intraoperative imaging provided for left T9-T12 facet steroid injection. Electronically Signed: Sixto Bess MD at 22:27 EDT , Service support ,
[2021-06-03] MEDS: MethylPREDNISolone Acetate 80 MG/ML Vial (13:25)
[2021-06-03] MEDS: Bupivacaine 0.25% 30 ML Vial (13:25)
[2021-06-03] MEDS: Lidocaine 1% (5 ml sdv) 5 ML Vial (13:26)
[2021-06-03 13:35] VITALS: BP 152/62; BP 93/55; PULSE 87; RESP 18; TEMP 36.1; O2SAT 100
[2021-06-03 13:40] VITALS: BP 118/74; BP 152/62; PULSE 82; RESP 18; O2SAT 100
[2021-06-03 13:45] VITALS: BP 131/74; BP 152/62; PULSE 81; RESP 16; O2SAT 100
[2021-06-03 13:55] VITALS: BP 108/59; BP 152/62; PULSE 80; RESP 18; TEMP 36; O2SAT 100
[2021-06-03 14:27] VITALS: BP 152/62
--- NOTE | 2021-06-03 17:17 | PCM.OPRPT ---
Report of Operation Date of Procedure: 06/03/21 Description of Surgical Findings:: PREOPERATIVE DIAGNOSES: Thoracic spondylosis, thoracic degenerative disc disease, thoracic facet arthropathy POSTOPERATIVE DIAGNOSES: Thoracic spondylosis, thoracic degenerative disc disease, thoracic facet arthropathy PROCEDURE PERFORMED: Left-sided thoracic facet steroid injection T9, 10, 11, 12 ANESTHESIA: MAC. BLOOD LOSS: Minimal. COMPLICATIONS: None. DESCRIPTION OF PROCEDURE: History and physical of today was reviewed. Risks and benefits of the procedure were explained. The patient understood and agreed to proceed. Informed consent was obtained. IV inserted per routine protocol. The patient was taken to the operating room and placed in the prone position with a pillow positioned underneath the abdomen. The mid back area was prepped and draped in a sterile fashion using iodine x3. Under fluoroscopy guidance on AP view, the T11 through L2 vertebral bodies were visualized. The skin and subcutaneous tissue was anesthetized with approximately 5 mL of 1% lidocaine using a 25-gauge regular needle. Under direct visualization with fluoroscopy at approximately 25-degree angle, starting on the left T 9, ending on the left T12 passing through the T10 and T11, using a 22-gauge 3-1/2-inch spinal needle, the needle was advanced via the skin. The tip of the needle was maneuvered and directed towards the epiphyseal junction of each corresponding vertebra at T9 and T10-T11 and T12, the needle was maneuvered and directed towards the superior medial gutter of the transverse process at the vicinity of the medial branch. Once tip of the needle was in contact with the bone, the needle was pulled approximately 2 mm of the bone. After negative aspiration for blood or CSF and confirmation on AP, oblique as well as lateral view, a total of 8 mL of preservative-free 0.25% Marcaine with 80 mg of Depo-Medrol was injected in divided doses between those four levels. The needles were then removed intact. The patient experienced no sign or symptoms of intrathecal or intravascular injection. The patient experienced no paresthesia. The procedure was completed without any apparent difficulty or any complications. The patient appeared to tolerate it well. ASSESSMENT AND PLAN: This is a 76-year-old female with thoracic spondylosis, thoracic degenerative disc disease, thoracic facet arthropathy status post left-sided thoracic facet steroid injection T9-T12 patient will continue her current medications, patient will follow in approximately 2 weeks for reevaluation.
== END 2021-06-03 14:33 | disposition home or self-care (01) ==
LOC: SDC 10:54 → AC 11:58
PROVIDERS: PCP Family Medicine; Referring Provider Anesthesiology Pain Medicine; Visit Provider Anesthesiology Pain Medicine
PROC: 3E0R3BZ Introduction of Anesthetic Agent into Spinal Canal, Percutaneous Approach (ICD-10-PCS; CPT 62281; principal; 2021-06-03 12:25)
DX: M47.814 Spondylosis without myelopathy or radiculopathy, thoracic region (principal); M51.34 Other intervertebral disc degeneration, thoracic region; C80.0 Disseminated malignant neoplasm, unspecified; E78.5 Hyperlipidemia, unspecified; I10 Essential (primary) hypertension; E66.01 Morbid (severe) obesity due to excess calories; K21.9 Gastro-esophageal reflux disease without esophagitis; E11.42 Type 2 diabetes mellitus with diabetic polyneuropathy; Z79.899 Other long term (current) drug therapy; Z68.45 Body mass index [BMI] 70 or greater, adult
CPT/HCPCS: 64490; 64491; 64492; 72072; J7120; A4216

== ENCOUNTER 2021-11-19 12:23 | Outpatient (CLI) | payer MEDICARE, SELFPAY ==
[2018-12-13 14:35] VITALS: BMI 42.2
--- NOTE | 2021-11-19 12:27 | CT_ITS ---
STUDY: CT CHEST WITH CONTRAST REASON FOR EXAM: Female, 76 years old. NSCLC surveillance RADIATION DOSAGE (If Supplied By Facility): CTDIvol = ( 9.20 ) mGy, DLP = ( 400.12 ) mGycm TECHNIQUE: Transaxial imaging was performed following intravenous administration of IV 100mL Isovue-300. Multiplanar coronal and sagittal images were reformatted. Individualized dose optimization techniques were used for this CT. COMPARISON: Comparison is made with prior study dated 05/01/2021. FINDINGS: A right-sided linda catheter seen with the tip in the superior vena cava. Since prior study, there has been a slight increase in the size of the right pleural effusion with persistent right basilar atelectasis. Air bronchograms are seen within this. There is evidence of a decrease in volume in the right hemithorax. There is no demonstrated pleural abnormality. Normal heart and pericardium. Normal mediastinum. Normal hilar regions. Normal enhanced pulmonary arteries. Normal aorta arch and descending thoracic aorta. The patient is status post interpedicular screw and jovany fixation in the lower thoracic region. This is unchanged. Stable sclerotic metastasis of the dorsal vertebrae with loss of height. There is no demonstrated abnormality of the visualized upper abdomen. CT/Chest WITH Contrast IMPRESSION: There has been a slight increase in size of the right pleural effusion with right basilar atelectasis. Stable appearance of the thoracic vertebrae with evidence of sclerotic metastasis and prior fusion. Electronically Signed: Sixto Bess MD at 15:29 EST , Service support ,
[2021-11-19] MEDS: 0.9% Saline Lock 10 ML Syringe IV (12:50)
== END 2021-11-19 23:59 | disposition short-term general hospital (02) ==
LOC: CT 12:25
PROVIDERS: PCP Family Medicine; Referring Provider Internal Medicine Medical Oncology; Visit Provider Internal Medicine Medical Oncology
DX: C34.91 Malignant neoplasm of unspecified part of right bronchus or lung (principal)
CPT/HCPCS: 71260; Q9967; A4216

== ENCOUNTER → 2022-05-26 | Outpatient (CLI) | payer MEDICARE, SELFPAY ==
[2018-12-13 14:35] VITALS: BMI 42.2
--- NOTE | 2022-05-26 13:28 | CT_ITS ---
STUDY: CT CHEST WITH CONTRAST REASON FOR EXAM: Female, 76 years old. MONITOR-LUNG CA RADIATION DOSAGE (If Supplied By Facility): CTDIvol = ( 9.35 ) mGy, DLP = ( 323.87 ) mGycm TECHNIQUE: Transaxial imaging was performed following intravenous administration of IV 100mL Isovue-300. Multiplanar coronal and sagittal images were reformatted. Individualized dose optimization techniques were used for this CT. COMPARISON: Comparison is made with prior study dated 11/19/2021. FINDINGS: CHEST A right-sided linda catheter seen with the tip in the superior vena cava. Slight increase in the right pleural effusion with persistent right basilar infiltration and/or atelectasis. Air bronchograms are seen within the right basilar infiltrate. There is no demonstrated pleural abnormality. Normal heart and pericardium. Normal mediastinum. Normal hilar regions. Normal unenhanced pulmonary arteries. There is atherosclerotic calcification of the aortic arch. Stable interpedicular screw fixation and jovany fixation of the lower thoracic and upper lumbar vertebrae. Stable sclerotic metastasis of the dorsal vertebrae with the loss of height. There is no demonstrated abnormality of the visualized upper abdomen. CT/Chest WITH Contrast IMPRESSION: Since prior study, there has been a mild degree of increased right pleural effusion with stable right lower lobe atelectasis and/or infiltrate. Electronically Signed: Sixto Bess MD at 15:05 EDT ,
[2022-05-26] MEDS: 0.9% Saline Lock 10 ML Syringe IV (14:06)
[2022-05-26 14:11] LABS: CREATININE FINGERSTICK < 0.9 mg/dL (0.55-1.02); EGFR FINGERSTICK > 60.0000 mL/min (>60)
== END | disposition home or self-care (01) ==
LOC: CT 13:25
PROVIDERS: PCP Family Medicine; Referring Provider Internal Medicine Medical Oncology; Visit Provider Internal Medicine Medical Oncology
DX: C34.2 Malignant neoplasm of middle lobe, bronchus or lung (principal)
CPT/HCPCS: 71260; Q9967; A4216

== ENCOUNTER → 2023-05-25 | Outpatient (CLI) | payer MEDICARE, SELFPAY ==
[2018-12-13 14:35] VITALS: BMI 42.2
[2023-05-25] MEDS: 0.9% Saline Lock 10 ML Syringe IV (13:45)
--- NOTE | 2023-05-25 13:52 | CT_ITS ---
INDICATION: MONITOR LUNG CA EXAMINATION: - CT Chest W/ Contrast Injection A radiation dose optimization technique was used for this scan. COMPARISON: Chest CT 05/26/2022. FINDINGS: Contrast enhanced serial CT axial images through the chest with coronal and sagittal reformatted series. IV Contrast dosage and agent: IV 100mL Isovue-370 Radiation CTDIvol 12.14 Radiation DLP 516.45 LUNG PARENCHYMA/PLEURA: Stable dense posterior soft tissue thickening of the posterior right lung with small rim-enhancing pleural effusion again noted. This is stable soft tissue thickening extends into the right hilum. No pneumothorax. MEDIASTINUM: No acute thoracic aortic abnormality. No obvious large proximal pulmonary artery filling defects. Right chest port catheter tip terminates at the cavoatrial junction. BONES: Again noted significant streak artifact secondary to lower thoracic jovany and pedicle screw constructs, spanning lower thoracic spine vertebral body stable compression deformities. UPPER ABDOMEN: Unremarkable. CT/Chest WITH Contrast IMPRESSION: Stable chest CT from previous year. Electronically Signed: Tj Pedraza MD at 1:38 EDT ,
[2023-05-25 14:06] LABS: CREATININE FINGERSTICK < 0.9 mg/dL (0.55-1.02); EGFR FINGERSTICK > 60.0000 mL/min (>60)
[2023-05-25 14:55] LABS: Basophil% 0.3 % (0-1); Eosinophils% 2.3 % (0-5); Hematocrit 35.5 % (37-47); Lymphocyte % 10.6 % (19-41); Mean Corpuscular Hgb 29.6 pg (27.0-32.0); Mean Corpuscular Volume 95.7 fL (81-99); Mean Platelet Vol. 10.3 fl (6.2-12.0); Monocyte% 6.3 % (0-10); Neutrophil % 80.2 % (47-70); Platelet Count 217 K/mm3 (150-450); RBC Distribution Width SD 45.6 fl (35.1-43.9); Red Blood Count 3.71 M/mm3 (4.2-5.4); White Blood Count 7.1 K/mm3 (4.4-11.0)
[2023-05-25 14:56] LABS: Absolute Lymphocyte Count 0.75 X10^3/uL (0.83-4.51); Absolute Neutrophil Count 5.7 X10^3/uL (2.0-7.7); Basophil# 0.02 X10^3/uL; Eosinophil# 0.16 X10^3/uL; Lymphocyte # 0.75 X10^3/ul (0.83-4.51); Monocyte# 0.45 X10^3/uL; NRBC Flagged by Analyzer 0 % (0-5)
[2023-05-25 15:09] LABS: ALB/GLOB Ratio 0.7 RATIO (0.9-2.4); AST(SGOT) 8 U/L (15-37); Alanine Aminotransfer ALT/SGPT 9 U/L (13-56); Albumin, Serum 2.5 g/dL (3.2-5.0); Alkaline Phosphatase 42 U/L (45-117); Anion Gap 3 (5-15); BUN 18 mg/dL (7-18); BUN/Creat Ratio 18.4 RATIO (10-20); Calcium,Total 8.1 mg/dL (8.5-10.1); Chloride 107 mmol/L (98-107); Creatinine, Serum 0.98 mg/dL (0.55-1.02); EST Glomerular Filtration Rate 58 mL/min (>60); Est Glom Filt Rate - Afr Amer 70 mL/min (>60); Globulin 3.7 g/dL (2.2-4.2); Glucose 113 mg/dL (74-106); LDH 102 U/L (84-246); Potassium 3.5 mmol/L (3.5-5.1); Protein, Total 6.2 g/dL (6.4-8.2); Sodium Level 137 mmol/L (136-145)
== END | disposition home or self-care (01) ==
PROVIDERS: PCP Family Medicine; Referring Provider Internal Medicine Medical Oncology; Visit Provider Internal Medicine Medical Oncology
DX: C34.91 Malignant neoplasm of unspecified part of right bronchus or lung (principal)
CPT/HCPCS: 71260; 80053; 83615; 85025; Q9967; A4216

== ENCOUNTER 2024-03-08 17:29 | Emergency (ER) | payer MEDICARE, SELFPAY ==
[2018-12-13 14:35] VITALS: BMI 42.2
[2024-03-08 17:32] VITALS: BP 151/62; PULSE 94; RESP 18; TEMP 36.2; O2SAT 94
[2024-03-08 17:49] VITALS: BMI 36.3
--- NOTE | 2024-03-08 18:04 | CT_ITS ---
INDICATION: Pulmonary Vein Thrombosis, known neoplasm EXAMINATION: CT CHEST WITH CONTRAST - CT Chest W/ Contrast Injection TECHNIQUE: Helically acquired images were obtained of the chest following IV contrast. A radiation dose optimization technique was used for this scan. IV Contrast dosage and agent: 100 mL Isovue 300 COMPARISON: CT chest May 25, 2023, Additional comparison obtained from November 11, 2018. . FINDINGS: LUNGS, PLEURA AND LARGE AIRWAYS: Partial right middle lobectomy suggested with diminutive size compared with November 11, 2018, chronic collapse around proximal bronchi, with unchanged truncated right middle lobe pulmonary artery compared to May 25, 2023. No obvious central pulmonary embolism although this study was not performed with the pulmonary embolism protocol. Enhancement within the pulmonary veins is homogeneous without evidence of thrombosis. Mild bilateral upper lung centrilobular emphysematous change. Unchanged apical and medial lateral right upper lobe scarring. Chronic rounded atelectasis in the posterior medial right lower lobe. Chronic small right pleural effusion which is slightly increased from prior exam. THYROID: No thyroid lesions. HEART AND PERICARDIUM: Heart size is normal. No pericardial effusion. Mild calcified coronary atherosclerosis. VESSELS: Right chest port tip projects at the distal superior vena cava. Aortic atherosclerosis without dissection or ectasia. MEDIASTINUM AND JOSEFINA: No mediastinal or left hilar adenopathy. Right hilar evaluation is limited by atelectasis without significant change from May 25, 2023. Esophagus is unremarkable. No hiatal hernia. UPPER ABDOMEN: Hepatic steatosis. BONES: No suspicious lytic or blastic abnormality. CT/Chest WITH Contrast IMPRESSION: No significant interval change from minimal increase in chronic right pleural effusion. No other significant change from May 25, 2023. No evidence to suggest pulmonary venous thrombosis on nonangiogram exam. Findings compatible with prior partial right middle lobe lobectomy with diminutive size, chronic collapse, and chronic truncated right middle lobe artery. Electronically Signed: Jim García MD at 22:03 EDT ,
--- NOTE | 2024-03-08 18:07 | EDS_ITS ---
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 She complains that she has had bilateral leg swelling on and off for quite some time. She went to see her primary care provider, but saw the nurse practitioner instead who did multiple tests and imaging regarding her leg swelling. She states that she had a CT of the chest and CT of the abdomen and pelvis performed recently, a few days ago. They called her with the results and told her that she needed to have a CT of the chest performed with IV contrast with questionable concern for a blood clot. She denies any chest pain or shortness of breath. Her leg swelling has improved. She presents because she was told that she needed to have imaging performed immediately. [facility] Medical History Back pain of thoracolumbar region Diabetes Disseminated malignancy GERD (gastroesophageal reflux disease) HTN (hypertension) Hyperlipidemia associated with type 2 diabetes mellitus Hypothyroidism Hypothyroidism L4-L5 decompression Mass of middle lobe of right lung Metastatic cancer Morbid (severe) obesity due to excess calories Non-small cell carcinoma of right lung, stage 4 Peripheral neuropathy Pleural effusion, right port placement Home Medications levothyroxine 50 mcg tablet 50 mcg PO DAILY thyroid 08/11/18 [History Last Taken 01/14/21] pjlvwdsrbvit-Qm-btse-minerals 1 ea PO DAILY diet supplement 08/11/18 [History Last Taken 05/12/19] simvastatin 20 mg tablet 20 mg PO QHS high cholesterol 08/11/18 [History Last T aken 05/11/19] hydrochlorothiazide 12.5 mg tablet 12.5 mg PO DAILY WATER PILL 12/29/18 [History Last Taken 05/12/19] oxybutynin chloride 5 mg tablet 5 mg PO TID #90 tabs 01/06/19 [Rx Last Taken 01/14/21] ibuprofen 200 mg tablet 400 - 600 mg PO Q6H PRN PRN Pain 05/12/19 [History Last Taken 05/12/19] magnesium oxide 400 mg PO DAILY supplement 30 days #30 tabs 06/11/20 [Rx Last Taken Unknown] ondansetron 4 mg disintegrating tablet 4 mg PO Q8H PRN PRN Nausea #10 tabs 11/23/20 [Rx Last Taken Unknown] bisacodyl 5 mg tablet,delayed release (Dulcolax (bisacodyl)) 5 mg PO ONCE PRN constipation 05/06/21 [History Last Taken Unknown] potassium chloride 20 mEq tablet,extended release(part/cryst) 20 meq PO DAILY potassium 05/06/21 [History Last Taken Unknown] sennosides 8.6 mg capsule (senna) 25.8 mg PO BID 05/06/21 [History Last Taken Unknown] Allergy/AdvReac Type Severity Reaction Status Date / Time phenazopyridine Allergy Nausea Verified 03/08/24 17:31 [From Pyridium] codeine AdvReac Severe Nausea/Vom/ Verified 03/08/24 17:31 Diarrhea hydrocodone [From Vicodin] AdvReac Severe Nausea/Vom/ Verified 03/08/24 17:31 Diarrhea morphine AdvReac Severe severe Verified 03/08/24 17:31 sedation lisinopril AdvReac Intermediate cough Verified 03/08/24 17:31 Sulfa (Sulfonamide AdvReac Intermediate Unknown Verified 03/08/24 17:31 Antibiotics) sulfamethoxazole AdvReac Intermediate Unknown Verified 03/08/24 17:31 [From Septra] trimethoprim [From Septra] AdvReac Intermediate Unknown Verified 03/08/24 17:31 Family History Father Heart problem Mother Lung cancer Sister Lung cancer Surgical History History of tonsillectomy Hx of cholecystectomy Hx of hemorrhoidectomy Social History housing: house Smoking Status: Former smoker ROS ROS ED ROS Narrative Constitutional: No fever, no chills. HEENT: No sore throat. No neck pain. No loss of vision. No rhinorrhea. Cardiovascular: No chest pain. No palpitations. Bilateral pedal edema. Respiratory: No cough, no shortness of breath. Abdominal: No abdominal pain. No nausea. No vomiting. Genitourinary: No dysuria. No hematuria. Musculoskeletal: No myalgias. No arthralgias. Neurologic: No headaches. No dizziness. No lightheadedness. Skin: No rash. No change in color. Psychiatric: No depression. No anxiety. EXAM Physical Exam Narrative Exam Narrative: Afebrile. Vital signs noted. HEENT: Normocephalic. Atraumatic. PERRL, EOMI. Neck soft and supple. No point tenderness or step off. Cardiovascular: Regular rate and rhythm. No murmurs, rubs, or gallops appreciated. Respiratory: No tachypnea. Lungs clear to auscultation bilaterally. Gastrointestinal: Abdomen soft, nontender, with normoactive bowel sounds. No rebound or guarding. Neurological: Awake. Alert. Nonfocal, nonlateralizing. Skin: No rash. Normal color. No pallor. Musculoskeletal: Positive bilateral pedal edema. Full range of motion extremities. Const Vital Signs: 03/08/24 17:32 03/08/24 17:49 03/08/24 19:30 Temperature 97.1 F L 97.3 F L Temperature Source Temporal Tympanic Pulse Rate 94 88 Respiratory Rate 18 Respiratory Effort Normal Respiratory Pattern Normal Blood Pressure 151/62 H 148/61 H Blood Pressure Mean 91 90 Pulse Ox 94 97 Oxygen Delivery Method Room Air Room Air 03/08/24 22:08 Temperature Temperature Source Pulse Rate 84 Respiratory Rate 16 Respiratory Effort Respiratory Pattern Blood Pressure 132/78 H Blood Pressure Mean 96 Pulse Ox Oxygen Delivery Method MDM MDM MDM Narrative Medical decision making narrative: I reviewed the patient's outpatient results. She does have compression fractures noted as previous. The radiology report does say that there is the possibility of a clot in the right main pulmonary vein, not the artery versus mass. They recommend CT of the chest with IV contrast for further evaluation. I did review her previous BMP and her GFR was slightly low in the 50s. She does have a PowerPort in place. She will be bolused IV fluids and CBC and BMP obtained again to make sure that she does not have a decrease in her GFR given her recent dye load. CT of the chest with IV contrast was ordered. I reviewed her laboratory work initially, and she has normal white count of 4.8, hemoglobin normal at 12.8, platelet count normal at 234. Her BUN is normal at 14 and creatinine slightly elevated at 1.09 from prior. Glucoses appropriately elevated at 111 with an anion gap low at 3. I reviewed the radiology report of the CT of the chest with IV contrast. There is no evidence of a pulmonary vein clot as seen on her prior CT without contrast. At this point in time, she is without complaints. I feel she can be discharged to follow-up with her primary care provider as there is no interval change on her previous chest CT. Patient is comfortable with the plan. Return instructions reviewed. Disposition is dis charged in stable condition. History & Record Review Discussion w/independent historian: Patient and Family Additional record(s) reviewed:: Prior outpatient record (CT with concern for possible clot in pulmonary vein.) and Prior labs Lab Data Attestation: I reviewed the patient's lab results. Labs: Laboratory Results - last 24 hr 03/08/24 18:14 WBC 4.8 RBC 4.27 Hgb 12.8 Hct 40.6 MCV 95.1 MCH 30.0 MCHC 31.5 L RDW Std Deviation 45.4 H RDW Coeff of Lalit 12.9 Plt Count 234 MPV 10.0 Immature Gran % (Auto) 0.400 Neut % (Auto) 64.7 Lymph % (Auto) 20.4 Sequoyah % (Auto) 8.2 Eos % (Auto) 5.7 H Baso % (Auto) 0.6 Absolute Neuts (auto) 3.1 Absolute Lymphs (auto) 0.97 Nucleated RBC % 0 Sodium 141 Potassium 3.9 Chloride 108 H Carbon Dioxide 30.0 Anion Gap 3 L BUN 14 Creatinine 1.09 H Estim Creat Clear Calc 44.60 Est GFR (MDRD) Af Amer 62 Est GFR (MDRD) Non-Af 51 L BUN/Creatinine Ratio 12.8 Glucose 111 H Calcium 8.5 Radiography Diagnostic Testing: Clinical Impression(s) from Imaging Studies Chest CT 03/08/24 18:04 IMPRESSION: No significant interval change from minimal increase in chronic right pleural effusion. No other significant change from May 25, 2023. No evidence to suggest pulmonary venous thrombosis on nonangiogram exam. Findings compatible with prior partial right middle lobe lobectomy with diminutive size, chronic collapse, and chronic truncated right middle lobe artery. Electronically Signed: Jim García MD at 22:03 EDT , Discharge Plan Triage Chief Complaint: Abn Labs ED Provider: Max Lau Dx/Rx/DC Orders Clinical Impression: Abnormal screening CT of chest, History of lung cancer, Encounter for medical screening examination Instructions: ED Screening Exam Medical Nonurgent Prescriptions: No Action senna 8.6 mg capsule 25.8 mg PO BID bisacodyl [Dulcolax (bisacodyl)] 5 mg tablet,delayed release (DR/EC) 5 mg PO ONCE PRN (Reason: constipation) levothyroxine 50 MCG tablet 50 mcg PO DAILY simvastatin 20 MG tablet 20 mg PO QHS wemoszqqzrph-Ls-jvlm-minerals 1 EACH tablet 1 ea PO DAILY oxybutynin chloride 5 MG tablet 5 mg PO TID Qty: 90 3RF magnesium oxide 400 MG tablet 400 mg PO DAILY 30 Days Qty: 30 2RF hydrochlorothiazide 12.5 MG tablet 12.5 mg PO DAILY ibuprofen 200 MG tablet 400 - 600 mg PO Q6H PRN PRN (Reason: Pain) potassium chloride 20 mEq tablet,ER particles/crystals 20 meq PO DAILY ondansetron 4 MG tablet 4 mg PO Q8H PRN PRN (Reason: Nausea) Qty: 10 0RF Primary Care Provider: Harjinder Borjas Referrals: Harjinder Borjas MD [Primary Care Provider] - 1 Day Activity Restrictions/Additional Instructions: The CT of the chest that was performed today did not show any evidence of a pulmonary vein clot as seen on her previous CT. There were no acute changes from prior. Follow-up with your primary care provider tomorrow and let them know that your CT did not show evidence of clot. Disposition Disposition: Home, Self Care
[2024-03-08] MEDS: 0.9% Normal Saline (1000mL) 1,000 ML 999 ML IV (18:29)
[2024-03-08 18:35] LABS: Absolute Lymphocyte Count 0.97 X10^3/uL (0.83-4.51); Absolute Neutrophil Count 3.1 X10^3/uL (2.0-7.7); Basophil# 0.03 X10^3/uL; Basophil% 0.6 % (0-1); Eosinophil# 0.27 X10^3/uL; Eosinophils% 5.7 % (0-5); Hematocrit 40.6 % (37-47); Hemoglobin 12.8 g/dL (12.0-15.0); Lymphocyte # 0.97 X10^3/ul (0.83-4.51); Lymphocyte % 20.4 % (19-41); Mean Corp Hgb Conc 31.5 g/dL (32-36); Mean Corpuscular Volume 95.1 fL (81-99); Monocyte# 0.39 X10^3/uL; Monocyte% 8.2 % (0-10); NRBC Flagged by Analyzer 0 % (0-5); Neutrophil # 3.08 X10^3/uL (2.7-7.7); Neutrophil % 64.7 % (47-70); Platelet Count 234 K/mm3 (150-450); RBC Distribution Width CV 12.9 % (11.6-14.6); RBC Distribution Width SD 45.4 fl (35.1-43.9); Red Blood Count 4.27 M/mm3 (4.2-5.4); White Blood Count 4.8 K/mm3 (4.4-11.0)
[2024-03-08 19:05] LABS: Anion Gap 3 (5-15); BUN 14 mg/dL (7-18); BUN/Creat Ratio 12.8 RATIO (10-20); Calcium,Total 8.5 mg/dL (8.5-10.1); Chloride 108 mmol/L (98-107); Creatinine, Serum 1.09 mg/dL (0.55-1.02); EST Glomerular Filtration Rate 51 mL/min (>60); Est Glom Filt Rate - Afr Amer 62 mL/min (>60); Glucose 111 mg/dL (74-106); Potassium 3.9 mmol/L (3.5-5.1); Sodium Level 141 mmol/L (136-145)
[2024-03-08 19:30] VITALS: BP 148/61; PULSE 88; TEMP 36.3; O2SAT 97
[2024-03-08 22:08] VITALS: BP 132/78; PULSE 84; RESP 16
[2024-03-08 22:40] VITALS: BP 154/65; PULSE 86; RESP 16; TEMP 36.8; O2SAT 93
== END 2024-03-08 22:46 | disposition home or self-care (01) ==
PROVIDERS: Emergency Provider Emergency Medicine; PCP Family Medicine; Visit Provider Emergency Medicine
DX: R91.8 Other nonspecific abnormal finding of lung field (principal); E11.9 Type 2 diabetes mellitus without complications; Z87.891 Personal history of nicotine dependence
CPT/HCPCS: 71260; 80048; 85025; 99282; J7030; Q9967

== ENCOUNTER → 2024-05-26 | Outpatient (CLI) | payer MEDICARE, SELFPAY ==
[2018-12-13 14:35] VITALS: BMI 42.2
--- NOTE | 2024-05-26 12:34 | CT_ITS ---
STUDY: CT CHEST T ABDOMEN WITH CONTRAST REASON FOR EXAM: Female, 78 years old. MONITOR LUNG CA-IV ONLY RADIATION DOSAGE (If Supplied By Facility): CTDIvol = ( 18.72 ) mGy, DLP = ( 1779.01 ) mGycm TECHNIQUE: Transaxial imaging was performed following intravenous administration of IV 100mL Isovue-300. Individualized dose optimization techniques were used for this CT. COMPARISON: 03/08/2024 FINDINGS: CHEST Right internal jugular chest port. Mild emphysema. Status post partial right middle lobectomy with volume loss and scarring surrounding the central bronchi. No change in the 1 cm spiculated density in the medial right upper lobe of the lungs on image 32 consistent with a scar. No new noncalcified nodule or mass. No change in small right pleural effusion with right lower lobe atelectasis. Normal heart and pericardium. Normal mediastinum. Normal hilar regions. Normal unenhanced pulmonary arteries. Normal aorta arch and descending thoracic aorta. Chronic burst fracture of T10 treated with posterior decompression and transpedicular fixation. There is no demonstrated abnormality of the visualized upper abdomen. ABDOMEN The visualized lung bases are unremarkable. The visualized portions of the heart are within normal limits. Normal liver. There is non-visualization of the gallbladder, which may be secondary to either contraction or a prior cholecystectomy. Normal spleen. Normal pancreas. Normal bilateral adrenal glands. Normal right kidney. Normal left kidney. Normal visualized stomach. Normal small intestine. Normal colon. The appendix is visualized and appears normal. Normal abdominal aorta. Normal inferior vena cava. Normal retroperitoneum. Normal abdominal wall. Normal osseous structures. CT/CT Chest AND Abd W/ Contrast IMPRESSION: No CT evidence of residual, recurrent, or metastatic bronchogenic carcinoma. No change in small right pleural effusion with right lower lobe atelectasis. Electronically Signed: Octavio Blakely MD at 11:11 EDT ,
[2024-05-26] MEDS: 0.9% Saline Lock 10 ML Syringe IV (12:55)
[2024-05-26 13:05] LABS: CREATININE FINGERSTICK < 1.0 mg/dL (0.55-1.02)
== END | disposition home or self-care (01) ==
PROVIDERS: PCP Family Medicine; Referring Provider Internal Medicine Medical Oncology; Visit Provider Internal Medicine Medical Oncology
DX: C34.2 Malignant neoplasm of middle lobe, bronchus or lung (principal)
CPT/HCPCS: 71260; 74160; Q9967; A4216

== ENCOUNTER 2025-09-27 08:26 | Inpatient (IN) | payer MEDICARE, SELFPAY ==
[2018-12-13 14:35] VITALS: BMI 42.2
[2025-09-27] VITALS (11 sets, daily range): BP systolic 123–164; BP diastolic 46–82; PULSE 81–98; RESP 10–20; TEMP 36.4–37.1; O2SAT 88–100; BMI 34.7; BMI 34.4
--- NOTE | 2025-09-27 09:06 | EKG12_ITS ---
Test Reason : EDEMA Blood Pressure : */* mmHG Vent. Rate : 86 BPM Atrial Rate : 86 BPM P-R Int : 190 ms QRS Dur : 82 ms QT Int : 380 ms P-R-T Axes : 58 235 54 degrees QTcB Int : 454 ms Normal sinus rhythm Right superior axis deviation Pulmonary disease pattern Abnormal ECG Confirmed by ILIA BRISENO, HILARIA ([id number]), field map editor DEREK STOVER ([id number]) on 10/02/2025 8:23:54 AM Referred By: Confirmed By: HILARIA MORILLO MD
--- NOTE | 2025-09-27 09:06 | CT_ITS ---
PROCEDURE: CTA CHEST W/WO CONTRAST 09/27/2025 REASON FOR EXAM: SOB, HIGH RISK PE Stage IV lung cancer. Lower extremity swelling. TECHNIQUE: Procedure Code: [id number] Modality: CT Procedure: CTA CHEST W/WO CONTRAST Multiplanar Sagittal and Coronal images were obtained. 3D post processing was performed CONTRAST: Isovue 370 VOLUME: 100 mL One or more dose reduction techniques were used (e.g., Automated exposure control, adjustment of the mA and/or kV according to patient size, use of iterative reconstruction technique). RADIATION DOSE SUMMARY: CTDlvol: 12.5 mGy DLP: 477.13 mGycm COMPARISON: May 26, 2024. FINDINGS: Hardware: A right-sided port a catheter is seen with the tip in the superior vena cava. Lymph nodes: No significant lymphadenopathy is seen. Heart: The heart is nonenlarged. Coronary artery calcification. Thoracic Aorta: No thoracic aortic aneurysm or dissection. Atherosclerotic calcific plaques. Pulmonary Vessels: The pulmonary vessels are well opacified. No intraluminal filling defect is seen. Lungs and Airways: Moderate-sized right pleural effusion. Small left pleural effusion. 1.3 cm spiculated nodule in the anterior medial aspect of the right upper lobe. This is unchanged. The patient is status post resection of the right middle lobe. Pleura: Bilateral pleural effusions right greater than left. Upper Abdomen: Unremarkable Bones: Burst fracture of the T10 vertebrae with the prior intrapedicular screw and jovany fixation. CT/CTA Chest W/WO Contrast IMPRESSION: No evidence of pulmonary embolism. Moderate right pleural effusion with basilar atelectasis. This is essentially unchanged. Reading Location: [place] [id number]
--- NOTE | 2025-09-27 09:22 | EDS_ITS ---
HPI History of Present Illness Chief Complaint: Edema Informant: patient and family Narrative Narrative: Patient is an 80-year-old female with history of stage IV lung cancer (currently in remission per patient), urinary tract infections, diabetes, hypertension and pleural effusions presenting with worsening leg swelling and shortness of breath. Symptoms been worsening over the past week and 1/2 to 2 weeks. Family finally convinced her to come in today. She denies a history of DVT or PE. Not on any anticoagulation. Denies any chest pain. [place] any fever or chills. No URI symptoms. States has a chronic runny nose which is unchanged. Denies any falls. Normally sleeps in a chair with no change in her sleeping. She follows with Dr. Gates who was her oncologist. She does report decreased urine output as well as decreased appetite. States is not getting around her house as well. Does not wear oxygen at home. No other complaints or concerns reported at this time. Family notes that she has had required a thoracentesis in the past. [facility] Medical History Former smoker Urge incontinence Overactive bladder port placement Non-small cell carcinoma of right lung, stage 4 L4-L5 decompression Peripheral neuropathy GERD (gastroesophageal reflux disease) Mass of middle lobe of right lung Pleural effusion, right Disseminated malignancy Hypothyroidism Morbid (severe) obesity due to excess calories Hyperlipidemia associated with type 2 diabetes mellitus Back pain of thoracolumbar region Hypothyroidism Diabetes HTN (hypertension) Metastatic cancer Home Medications ?Medication ?Instructions ?Recorded ?Last Taken ?Type ibuprofen 800 mg tablet 800 mg PO Q8H 07/04/25 Unkno wn History Allergy/AdvReac Type Severity Reaction Status Date / Time phenazopyridine (From Allergy Nausea Verified 09/27/25 08:28 Pyridium) codeine AdvReac Severe Nausea/Vom/ Verified 09/27/25 08:28 Diarrhea hydrocodone (From Vicodin) AdvReac Severe Nausea/Vom/ Verified 09/27/25 08:28 Diarrhea morphine AdvReac Severe severe Verified 07/04/25 14:53 sedation lisinopril AdvReac Intermediate cough Verified 09/27/25 08:28 Sulfa (Sulfonamide AdvReac Intermediate Unknown Verified 07/04/25 14:53 Antibiotics) sulfamethoxazole (From AdvReac Intermediate Unknown Verified 09/27/25 08:28 Septra) trimethoprim (From ) AdvReac Intermediate Unknown Verified 09/27/25 08:28 Family History Father Heart problem Mother Lung cancer Sister Lung cancer Surgical History Hx of cholecystectomy Hx of hemorrhoidectomy History of tonsillectomy Social History housing: house Smoking Status: Former smoker ROS ROS ED Constitutional Constitutional ED: Denies chills or fever(s) Cardiovascular Cardiovascular: Denies chest pain or palpitations Respiratory/Chest Respiratory/Chest: Reports dyspnea on exertion; Denies cough or dyspnea Gastrointestinal Gastrointestinal: Denies abdominal pain, constipation, diarrhea, melena or vomiting Genitourinary Genitourinary ED: Denies dysuria or urinary frequency Musculoskeletal Musculoskeletal: Reports myalgias and other Details: reports leg pain from swelling, right worse than left. ; Denies arthralgias Integumentary Denies rash Neurologic Neurologic: Reports weakness; Denies paresthesias Hematologic/Lymphatic Hematologic/Lymphatic: Denies easy bleeding or easy bruising EXAM Physical Exam Const Vital Signs: 09/27/25 08:28 09/27/25 09:06 09/27/25 10:27 Temperature 98.7 F Temperature Source Oral Pulse Rate 81 86 Respiratory Rate 18 20 H Blood Pressure 155/66 H 129/61 H Blood Pressure Mean 95 83 Pulse Ox 88 100 Oxygen Delivery Method Room Air Room Air Nasal Cannula Oxygen Flow Rate (L/min) 2 09/27/25 11:00 09/27/25 12:00 09/27/25 12:27 Temperature 97.5 F L Temperature Source Pulse Rate 86 85 Respiratory Rate 10 L 17 Blood Pressure 127/46 H 137/57 H 124/52 H Blood Pressure Mean 73 83 76 Pulse Ox 100 100 Oxygen Delivery Method Nasal Cannula Oxygen Flow Rate (L/min) 2 Positive well nourished and well developed General Appearance ED: well developed and NAD HEENT Reports moist mucous membranes Eyes PERRL Neck supple Neck Narrative: Very faint JVD present Chest Wall inspection of chest normal Resp Resp Narrative: Mildly tachypneic. No respiratory distress. Diminished breath sounds in the lower two thirds of the right lung, coarse/diminished breath sounds at the base of the left lung. No wheezing appreciated Cardio regular rate, regular rhythm and no murmurs GI normal to inspection, nondistended, normoactive bowel sounds and non-tender Extremity Extremity Narrative: Pitting edema up to the knees bilaterally. Mild tenderness of the lower extremities present. 2+ DP pulses present. Neuro oriented x3 Sensorium / Orientation: alert Motor Exam: general weakness Psych mental status grossly normal Skin no rashes or lesions noted and no wounds MDM MDM MDM Narrative Medical decision making narrative: Patient evaluated for worsening shortness of breath as well as lower extremity edema. Does have a history of non-small cell lung cancer with metastasis (stage IV) but she states she was completely treated. On arrival patient is 88% on room air at rest. Is placed on supplemental oxygen in the emergency room. Otherwise appears nontoxic. Differential includes is not limited to pleural effusion, acute onset CHF, pulmonary emboli, ACS, symptomatic anemia, electrolyte derangement as well as recurrence of malignancy. Lower suspicion for infectious etiology given lack of fever, sputum production or acute cough. Patient not have a leukocytosis or anemia. CMP largely normal.-See troponin mildly open at 43 but stable on repeat delta. BNP is significantly to 4354. TSH mildly elevated but not high enough to cause her symptoms in my opinion. Urinalysis does show findings of urinary tract infection with positive nitrates, 50-100 white blood cells and 2+ bacteria with only 5-10 squamous epithelial cells as contamination. Urine culture sent. Patient started on IV Lasix as well as Rocephin in the ER. CTA does show moderate right pleural effusion but otherwise stable. No evidence of pulmonary emboli. No progression of prior spiculated mass which is reassuring given her history of cancer. Patient will be admitted for likely thoracentesis and further evaluation of her acute fluid overload. Case discussed with hospitalist, Dr. Mathews Lab Data Attestation: I reviewed the patient's lab results. Labs: Laboratory Results - last 24 hr 09/27/25 09/27/25 09/27/25 09:16 10:43 11:30 WBC 4.4 RBC 4.55 Hgb 13.6 Hct 44.1 MCV 96.9 MCH 29.9 MCHC 30.8 L RDW Std Deviation 54.9 H RDW Coeff of Lalit 15.5 H Plt Count 144 L MPV 10.5 Immature Gran % (Auto) 0.500 Neut % (Auto) 76.6 H Lymph % (Auto) 12.4 L [place] % (Auto) 7.1 Eos % (Auto) 2.5 Baso % (Auto) 0.9 Absolute Neuts (auto) 3.3 Absolute Lymphs (auto) 0.54 L Nucleated RBC % 0 Sodium 145 Potassium 3.9 Chloride 107 Carbon Dioxide 29.1 Anion Gap 9 BUN 21 H Creatinine 0.76 Estim Creat Clear Calc 57.31 Est GFR (MDRD) Non-Af 78 BUN/Creatinine Ratio 27.4 H Glucose 86 Calcium 9.0 Magnesium 1.9 Lactate Dehydrogenase 144 Troponin T High Sens 43 H Troponin T Hi Sens 2 Hr 43 H NT pro BNP II 4354 H Total Protein 6.3 TSH 4.750 H Urine Color Yellow Urine Clarity Cloudy Urine pH 6.0 Ur Specific [place] 1.020 Urine Protein 30 H Urine Glucose (UA) Normal Urine Ketones 15 H Urine Occult Blood 25 H Urine Nitrite Positive H Urine Bilirubin Negative Urine Urobilinogen Normal Ur Leukocyte Esterase 500 H Urine RBC 0 SEEN Urine WBC 50-100 SEEN Ur Squamous Epith Cells 5-10 SEEN Urine Bacteria 2+ Urine Mucus 0 SEEN Radiography Diagnostic Testing: Clinical Impression(s) from Imaging Studies Chest CTA 09/27/25 09:06 IMPRESSION: No evidence of pulmonary embolism. Moderate right pleural effusion with basilar atelectasis. This is essentially unchanged. Reading Location: [facility]-IR-1 Thoracentesis Ultrasound 09/27/25 12:41 IMPRESSION: Successful right ultrasound-guided thoracentesis. The patient tolerated the procedure well. No immediate complication is noted. Reading Location: [facility]--1 Rhythm Strip Rhythm Strip: Sinus Rhythm Rate: 86 Ectopy: None EKG Initial EKG: Attestation: I personally reviewed and interpreted this EKG as follows: Interpretation: Sinus Rhythm Comments: Normal sinus rhythm rate of 86 bpm Right superior axis deviation Pulmonary disease pattern Normal ST segment Prior EKG tracings: available for review Prior: Changed (Change in axis however no ischemic changes presents) Management Discussion w/another healthcare provider: Hospitalist Discharge Plan Dx/Rx/DC Orders Clinical Impression: Pleural effusion, right, Hypoxia, Acute UTI, Acute exacerbation of CHF (congestive heart failure) Disposition Disposition: [facility] Discharge Date/Time: 09/27/25 13:19 D/C Safety Score for UGIB Assessment [place] Bleeding Score (GBS): Stratifies upper GI bleeding patients who are low-risk and candidates for outpatient management. Hemoglobin, BUN, Recent Vital Signs: Hgb 13.6 g/dL (12.0-15.0) 09/27/25 09:16 BUN 21 mg/dL (4-19) H 09/27/25 09:16 Pulse Rate 85 Blood Pressure 124/52 Total Risk Score: 2 Score Interpretation: Score of 0: A GBS of 0 is a ?Low Risk? GI bleed, and is highly sensitive (99.6% in a 2007 retrospective study) for predicting which patients did not require any ?medical intervention?: blood transfusion, endoscopy, or surgery. This was confirmed in a [address] [facility] study where patients with a score of 0 were actually discharged and had no GI bleeding mortality at 6 month followup Score above 0: A GBS greater than zero suggests a ?High Risk? GI bleed that is likely to require ?medical intervention?: transfusion, endoscopy, or surgery. A higher GBS also correlated with a higher likelihood of needing intervention Scores >/= 6 are associated with >50% risk of needing intervention D/C Safety Score for LGIB Assessment Assessment Tool: Readmission and adverse event risk in patients with acute lower GI bleeding. Age, in years: >/= 70 Hemoglobin and Recent Vital Signs: Hgb 13.6 g/dL (12.0-15.0) 09/27/25 09:16 Pulse Rate 85 09/27/25 12:27 Blood Pressure 124/52 09/27/25 12:27 Probability of safe discharge: 99% Total Risk Score: 2 Score Interpretation: Probability Percentage of safe discharge (absence of rebleeding, blood transfusion, therapeutic intervention, 28 day readmission, or ) Score of 8 or below: Consider discharge, with appropriate precautions. Score of 9 or above: Discharge NOT recommended. Consider admission with further workup and resuscitation as necessary.
[2025-09-27 09:33] LABS: Hematocrit 44.1 % (37-47); Hemoglobin 13.6 g/dL (12.0-15.0); Immature Granulocytes Count 0.020 X10^3/uL (0.0-0.0); Mean Corp Hgb Conc 30.8 g/dL (32-36); Mean Corpuscular Volume 96.9 fL (81-99); Mean Platelet Vol. 10.5 fl (6.2-12.0); NRBC Flagged by Analyzer 0 % (0-5); POSITIVE DIFFERENTIAL YES; Platelet Count 144 K/mm3 (150-450); RBC Distribution Width CV 15.5 % (11.6-14.6); RBC Distribution Width SD 54.9 fl (35.1-43.9); Red Blood Count 4.55 M/mm3 (4.2-5.4); White Blood Count 4.4 K/mm3 (4.4-11.0)
[2025-09-27 10:06] LABS: Anion Gap 9 (5-15); BUN 21 mg/dL (4-19); BUN/Creat Ratio 27.4 RATIO (10-20); Calcium,Total 9.0 mg/dL (7.6-11.0); Carbon Dioxide 29.1 mmol/L (21.0-32.0); Chloride 107 mmol/L (98-108); Estimated Creatinine Clearance 57.31 ml/min (50-250); Glucose 86 mg/dL (70-99); Magnesium 1.9 mg/dL (1.5-2.2); Potassium 3.9 mmol/L (3.3-5.1); Pro- Brain NATRIURETIC PEPTIDE 4354 pg/mL (<=1800); Troponin T High Sensitivity 43 ng/L (<=14)
[2025-09-27 10:50] LABS: Mucous, Urine 0 SEEN /hpf (<or=2+); Red Blood Cells-Urine 0 SEEN /hpf (0-5)
[2025-09-27 10:58] LABS: Color, Urine Yellow (Yellow); Glucose, Dipstick Normal (Normal); Ketone-Dipstick 15 mg/dl (Negative); Leukocyte Esterase-Dipstick 500 /ul (Negative); Nitrite-Dipstick Positive (Negative); Occult Blood-Urine 25 /ul (Negative); Protein-Dipstick 30 mg/dl (Negative); Specific Gravity, Urine 1.020 (1.002-1.030); Urine Bilirubin Dipstick Negative (Negative)
[2025-09-27 11:03] LABS: Squamous Epithelial Cells - UA 5-10 SEEN /hpf (5-10)
[2025-09-27 12:11] LABS: Troponin T High Sens 2 HR 43 ng/L (<=14)
--- NOTE | 2025-09-27 12:41 | US_ITS ---
PROCEDURE: THORACENTESIS W US N/A REASON FOR EXAM: R LUNG EFFUSION TECHNIQUE: THORACENTESIS W US. The procedure as well as the benefits and possible complications including infection bleeding and pneumothorax were explained to the patient. Informed consent was obtained. The overlying skin was prepped and draped in the usual sterile fashion. Following local anesthetic application and under direct sonographic guidance, a 5 Urdu catheter was placed into the right pleural space. 200 mL of cloudy bev colored fluid was aspirated. A specimen was sent to the laboratory. COMPARISON: Prior CT scan dated September 27, 2025. FINDINGS: Successful right ultrasound-guided thoracentesis. US/Thoracentesis W US IMPRESSION: Successful right ultrasound-guided thoracentesis. The patient tolerated the pr ocedure well. No immediate complication is noted. Reading Location: [place] [id number]
--- NOTE | 2025-09-27 12:50 | PCM.HP.STD ---
[facility] - General General Date of Admission: 09/27/25 HPI Narrative CARLOS HUNT, is a 80 F who presents to the hospital with increasing shortness of breath and lower extremity edema. She does have a history of stage IV non-small cell lung cancer that she states is in remission, this was discovered in 2018 with a lesion in her T10 vertebral body that was leading possible cord compression she needed emergent surgery. Since that time she has undergone multiple treatment modalities, and so far has no progression of disease with a history of right pleural effusion. Today she is also demonstrating some shortness of breath as she was 87 to 88% on room air which is new for her. Given the moderate pleural effusion may benefit from a thoracentesis. In the meantime her proBNP was elevated to 4300 so there is concern for component of heart failure which would be new to her as well as recurrent UTI with a positive UA, she did receive a dose of Rocephin in the emergency room. [facility] Medical History Former smoker Urge incontinence Overactive bladder port placement Non-small cell carcinoma of right lung, stage 4 L4-L5 decompression Peripheral neuropathy GERD (gastroesophageal reflux disease) Mass of middle lobe of right lung Pleural effusion, right Disseminated malignancy Hypothyroidism Morbid (severe) obesity due to excess calories Hyperlipidemia associated with type 2 diabetes mellitus Back pain of thoracolumbar region Hypothyroidism Diabetes HTN (hypertension) Metastatic cancer Home Medications ?Medication ?Instructions ?Recorded ?Last Taken ?Type ibuprofen 800 mg tablet 800 mg PO Q8H 07/04/25 Unknown History Allergy/AdvReac Type Severity Reaction Status Date / Time phenazopyridine (From Allergy Nausea Verified 09/27/25 08:28 Pyridium) codeine AdvReac Severe Nausea/Vom/ Verified 09/27/25 08:28 Diarrhea hydrocodone (From Vicodin) AdvReac Severe Nausea/Vom/ Verified 09/27/25 08:28 Diarrhea morphine AdvReac Severe severe Verified 07/04/25 14:53 sedation lisinopril AdvReac Intermediate cough Verified 09/27/25 08:28 Sulfa (Sulfonamide AdvReac Intermediate Unknown Verified 07/04/25 14:53 Antibiotics) sulfamethoxazole (From AdvReac Intermediate Unknown Verified 09/27/25 08:28 Septra) trimethoprim (From Septra) AdvReac Intermediate Unknown Verified 09/27/25 08:28 Family History Father Heart problem Mother Lung cancer Sister Lung cancer Surgical History Hx of cholecystectomy Hx of hemorrhoidectomy History of tonsillectomy Social History housing: house Smoking Status: Former smoker ROS Constitutional Constitutional: Denies chills, fatigue, fever(s) or malaise Eyes Eyes: Denies blurry vision ENT HEENT: Denies headache(s) or nasal discharge Cardiovascular Cardiovascular: Reports edema; Denies chest pain, dyspnea on exertion or syncope Respiratory/Chest Respiratory/Chest: Reports shortness of breath with exertion; Denies cough or shortness of breath at rest Gastrointestinal Gastrointestinal: Denies constipation, diarrhea, nausea or vomiting Genitourinary Genitourinary: Denies dysuria Neurologic Neurologic: Denies focal weakness, numbness or tremor(s) Psychiatric Psychiatric: Denies anxiety or depression Vital Signs Vital Signs Vital Signs: 09/27/25 08:28 09/27/25 09:06 09/27/25 10:27 Temperature 98.7 F Temperature Source Oral Pulse Rate 81 86 Respiratory Rate 18 20 H Blood Pressure 155/66 H 129/61 H Blood Pressure Mean 95 83 Pulse Ox 88 100 Oxygen Delivery Method Room Air Room Air Nasal Cannula Oxygen Flow Rate (L/min) 2 09/27/25 11:00 09/27/25 12:00 09/27/25 12:27 Temperature 97.5 F L Temperature Source Pulse Rate 86 85 Respiratory Rate 10 L 17 Blood Pressure 127/46 H 137/57 H 124/52 H Blood Pressure Mean 73 83 76 Pulse Ox 100 100 Oxygen Delivery Method Nasal Cannula Oxygen Flow Rate (L/min) 2 Weight Weight: 195 lb 12.328 oz Body Mass Index (BMI) 34.7 Physical Exam Narrative General: Alert, Oriented x3, Cooperative, No apparent distress HEENT: Atraumatic, PERRLA, EOMI, Normocephalic Oral: Moist Mucosa Neck: Supple, No JVD Lungs: Diminished right greater than left, Normal air movement, No rhonchi, No wheeze, No rales Cardiovascular: Regular rate, Regular Rhythm, Normal S1, Normal S2, No murmurs Abdomen: Soft, Non Tender, Non-Distended, No Hepato-splenomegaly Extremities: Nonpitting edema, Capillary Refill Less than 3 Seconds Skin: No rashes, No breakdown Musculoskeletal: No Tenderness to Palpation of Joints or Extremities Neurological: No focal neurological deficits, moves all extremities Psych/Mental Status: Normal Affect, Appropriate Results Lab / Micro Data 09/27/25 09:16 09/27/25 09:16 Labs: Laboratory Results - last 24 hr 09/27/25 09:16: WBC 4.4, RBC 4.55, Hgb 13.6, Hct 44.1, MCV 96.9, MCH 29.9, MCHC 30.8 L, RDW Std Deviation 54.9 H, RDW Coeff of Lalit 15.5 H, Plt Count 144 L, MPV 10.5, Immature Gran % (Auto) 0.500, Neut % (Auto) 76.6 H, Lymph % (Auto) 12.4 L, [place] % (Auto) 7.1, Eos % (Auto) 2.5, Baso % (Auto) 0.9, Absolute Neuts (auto) 3.3, Absolute Lymphs (auto) 0.54 L, Nucleated RBC % 0, Sodium 145, Potassium 3.9, Chloride 107, Carbon Dioxide 29.1, Anion Gap 9, BUN 21 H, Creatinine 0.76, Estim Creat Clear Calc 57.31, Est GFR (MDRD) Non-Af 78, BUN/Creatinine Ratio 27.4 H, Glucose 86, Calcium 9.0, Magnesium 1.9, Troponin T High Sens 43 H, NT pro BNP II 4354 H, TSH 4.750 H 09/27/25 10:43: Urine Color Yellow, Urine Clarity Cloudy, Urine pH 6.0, Ur Specific [place] 1.020, Urine Protein 30 H, Urine Glucose (UA) Normal, Urine Ketones 15 H, Urine Occult Blood 25 H, Urine Nitrite Positive H, Urine Bilirubin Negative, Urine Urobilinogen Normal, Ur Leukocyte Esterase 500 H, Urine RBC 0 SEEN, Urine WBC 50-100 SEEN, Ur Squamous Epith Cells 5-10 SEEN, Urine Bacteria 2+, Urine Mucus 0 SEEN 09/27/25 11:30: Troponin T Hi Sens 2 Hr 43 H Micro: Microbiology 09/27/25 09:36 Mucosa - Nose SARS-CoV-2, Influenza & RSV (PCR) - Final Rhythm Strip Rhythm Strip: Sinus Rhythm Rate: 86 Ectopy: None Imaging Radiology Impression Chest CTA 09/27/25 09:06 IMPRESSION: No evidence of pulmonary embolism. Moderate right pleural effusion with basilar atelectasis. This is essentially unchanged. Reading Location: [facility] Assessment & Plan Assessment/Plan (1) Acute exacerbation of CHF (congestive heart failure): (2) Acute UTI: (3) Hypoxia: PLAN: Plan 1. Acute hypoxic respiratory insufficiency secondary to CHF exacerbation unknown type ? Obtain echocardiogram and place her on daily Lasix ? Monitor renal function ? Will perform a thoracentesis on her right pleural effusion with fluid studies, she has had previous pleural effusions on the left per family 2. UTI ? Urine sample is consistent with UTI, cultures pending ?Her last chemotherapy and immunotherapy were approximately 6 years ago ? She has recurrent UTIs family states due to urinary incontinence would recommend outpatient follow-up with urology for evaluation for possible surgical intervention ? Continue with Rocephin for a short course of 3 days 3. Non-small cell lung cancer with metastases to the bone ? Appears to have complete remission after chemotherapy, radiation, and Keytruda ? Currently being monitored by oncology but on no active interventions at this time. DVT: Lovenox 75 minutes was spent on direct patient care, including documentation as well as chart review and collaboration with colleagues Charges/Coding Visit Charges Inpatient E&M: 23892 Init Hosp L3 D/C Safety Score for UGIB Assessment [place] Bleeding Score (GBS): Stratifies upper GI bleeding patients who are low-risk and candidates for outpatient management. Hemoglobin, BUN, Recent Vital Signs: Hgb 13.6 g/dL (12.0-15.0) 09/27/25 09:16 BUN 21 mg/dL (4-19) H 09/27/25 09:16 Pulse Rate 85 Blood Pressure 124/52 Total Risk Score: 2 Score Interpretation: Score of 0: A GBS of 0 is a ?Low Risk? GI bleed, and is highly sensitive (99.6% in a 2007 retrospective study) for predicting which patients did not require any ?medical intervention?: blood transfusion, endoscopy, or surgery. This was confirmed in a 2009 [facility] study where patients with a score of 0 were actually discharged and had no GI bleeding mortality at 6 month followup Score above 0: A GBS greater than zero suggests a ?High Risk? GI bleed that is likely to require ?medical intervention?: transfusion, endoscopy, or surgery. A higher GBS also correlated with a higher likelihood of needing intervention Scores >/= 6 are associated with >50% risk of needing intervention D/C Safety Score for LGIB Assessment Assessment Tool: Readmission and adverse event risk in patients with acute lower GI bleeding. Age, in years: >/= 70 Hemoglobin and Recent Vital Signs: Hgb 13.6 g/dL (12.0-15.0) 09/27/25 09:16 Pulse Rate 85 09/27/25 12:27 Blood Pressure 124/52 09/27/25 12:27 Probability of safe discharge: 99% Total Risk Score: 2 Score Interpretation: Probability Percentage of safe discharge (absence of rebleeding, blood transfusion, therapeutic intervention, 28 day readmission, or ) Score of 8 or below: Consider discharge, with appropriate precautions. Score of 9 or above: Discharge NOT recommended. Consider admission with further workup and resuscitation as necessary.
[2025-09-27 13:24] LABS: LDH 144 U/L (84-246)
--- NOTE | 2025-09-27 13:32 | ECHOCS_ITS ---
Reason For Study Reason For Study: CHF Procedure This was a 2D Doppler, Color Flow transthoracic echocardiogram. The study was technically difficult. The study was technically limited. Limited views were obtained. Contrast injection was performed. Exam performed portable in patient room. Left Ventricle Normal LV size. The estimated ejection fraction is 75 %. Diastolic function is indeterminate. No regional wall motion abnormalities noted. Right Ventricle Normal RV size. Normal systolic function. Atria The left and right atria are normal. No doppler evidence for ASD. Mitral Valve There is no mitral valve stenosis. No mitral valve insufficiency. Tricuspid Valve There is no tricuspid stenosis. Unable to estimate RV systolic pressure due to insufficient tricuspid regurgitant envelope. Aortic Valve Trisinus/trileaflet aortic valve. There is no aortic stenosis. Trivial aortic valve insufficiency. Pulmonic Valve There is no pulmonic valvular stenosis. No pulmonic valve insufficiency. Great Vessels Normal sized aortic root. Pericardium/Pleural No pericardial effusion. Medication Diluted definity 2.0ml given slow IV push to enhance endocardial definition. MMode/2D Measurements & Calculations LVIDd: 4.3 cm IVSd: 0.75 cm Ao root diam: 3.0 cm LVIDs: 2.4 cm LVPWd: 0.85 cm FS: 44.0 % LAV(MOD-bp): 52.0 ml LVAd ap4: 21.0 cm2 LVAd ap2: 16.4 cm2 LAV(MOD-bp) Indexed: 27.3 ml/m2 LVLd ap4: 6.5 cm LVLd ap2: 6.0 cm LAV(MOD-sp2): 47.5 ml EDV(MOD-sp4): 57.6 ml EDV(MOD-sp2): 37.0 ml LAV(MOD-sp4): 49.3 ml EDV(sp4-el): 58.0 ml EDV(sp2-el): 38.1 ml LVAs ap4: 10.6 cm2 LVAs ap2: 7.7 cm2 LVLs ap4: 5.2 cm LVLs ap2: 5.0 cm ESV(MOD-sp4): 18.6 ml ESV(MOD-sp2): 10.1 ml ESV(sp4-el): 18.2 ml ESV(sp2-el): 10.2 ml EF(MOD-sp4): 67.6 % EF(MOD-sp2): 72.6 % EF(sp4-el): 68.5 % SV(MOD-sp4): 39.0 ml SV(MOD-sp2): 26.8 ml SV(sp4-el): 39.7 ml SI(MOD-sp4): 20.4 ml/m2 SI(MOD-sp2): 14.1 ml/m2 LA A4 area: 17.6 cm2 LA dimension(2D): 3.6 cm TAPSE: 1.8 cm Time Measurements MV dec time: 0.20 sec Doppler Measurements & Calculations MV E max rolf: 95.6 cm/sec Lat Peak E' Rolf: 6.1 cm/sec MV V2 max: 118.2 cm/sec MV A max rolf: 106.5 cm/sec E/E' lat: 15.6 MV max P.6 mmHg MV E/A: 0.90 MV V2 mean: 76.4 cm/sec MV mean P.6 mmHg MV V2 VTI: 28.1 cm MV P1/2t max rolf: 114.3 cm/sec Ao V2 max: 136.3 cm/sec LV V1 max: 39.5 cm/sec MV P1/2t: 52.5 msec Ao max P.4 mmHg LV V1 max P.62 mmHg MV dec slope: 638.0 cm/sec2 MVA(P1/2t): 4.2 cm2 PA V2 max: 107.5 cm/sec ECHO/Echo Complete W/ Contrast Interpretation Summary The estimated ejection fraction is 75 %. Trivial aortic valve insufficiency. Ordering Physician: Alexandro Mathews Referring Physician: Harjinder Borjas Performed By: Annita Bolanos RDCS, RVT
[2025-09-27] MEDS: Lidocaine 2% (20 ml mdv) 20 ML Vial INFILT (14:55)
--- NOTE | 2025-09-27 15:00 | FLU_PTH ---
PATIENT: CARLOS HUNT LOC: [facility] U#:[id number] AGE/SX: 80/F ROOM: [facility] RE09/27/[address]: Dr. Alexandro Mathews MD : [id number] BED: 1 DIS: 09/28/2025 SPEC #: [id number] RECD: 09/27/25 15:07 STATUS: BUDDY MONTANO #: [id number] CONNER: 09/27/25 15:[address]: Alexandro Mathews DEPT: CYTOLOGY RECD BY: Manjinder Yao ENTERED: 09/28/25 08:27 SP TYPE: Fluid OTHR DR: Dr. Harjinder Borjas MD Tissues: A - Pleural fluid, NOS Procedures: Special Stain Group II Surgery Specimen Level IV Cytospin Fluid HEADER OPERATION: Ultrasound guided thoracentesis - right PRE-OP DIAGNOSIS: Pleural effusion TISSUE SUBMITTED: A- Thoracentesis fluid for cytology DIAGNOSIS CYTOLOGY A. Pleural effusion, thoracentesis (cytospin, cellblock): - No malignant cells identified. CYTOLOGY STUDY Slides are reviewed. CYTOLOGY GROSS A. Received is 85 ml of cloudy-light yellow fluid labeled with the patient's name and and designated per the requisition as Thoracentesis fluid. Submitted for cytology and cell block preparation. 09/28/2025 CPT: 17066,50198
--- NOTE | 2025-09-27 15:05 | RAD_ITS ---
PROCEDURE: CHEST INSP/EXP 2 VIEW 09/27/2025 REASON FOR EXAM: POST THORACENTESIS TECHNIQUE: Procedure Code: [id number] Modality: DX Procedure: CHEST INSP/EXP 2 VIEW AP inspiration expiration views were obtained following a right thoracentesis. COMPARISON: Prior CT scan of the chest dated September 27, 2025. FINDINGS: No evidence of pneumothorax following the right thoracentesis. RAD/Chest Insp/Exp 2 View IMPRESSION: No evidence of right-sided pneumothorax following the thoracentesis. Reading Location: [place] [address]
[2025-09-27 16:15] LABS: Glucose, Body Fluid 85 mg/dL (Not Establ.)
[2025-09-27 17:21] LABS: Troponin T High Sens 4 HR 49 ng/L (<=14)
[2025-09-27 17:45] LABS: Prothrombin Time (Protime)PT. 14.5 SECONDS (11.7-14.9)
[2025-09-27 18:14] LABS: Body Fluid Mononuclear WBC # 0.213 10^3/uL; Body Fluid Mononuclear WBC % 98.7 %; Body Fluid Polynuclear WBC # 0.003 10^3/uL; Body Fluid Polynuclear WBC % 1.3 %; White Blood Count/Body Fluid 0.216 10^3/uL
[2025-09-27 18:19] LABS: Auto B Fluid Analyzer BKGD Ct COUNTS W/IN LIMITS (W/IN LIMITS)
[2025-09-27 18:21] LABS: Source- Body Fluid THORACENTESIS
[2025-09-27 18:22] LABS: Appearance/Body Fluid CLOUDY; Color/Body Fluid LT YEL
[2025-09-27 22:06] LABS: Red Cell Count/Body Fluid 345 /mm3
[2025-09-27 23:08] LABS: Neutrophil (Segs) 1 %
[2025-09-27 23:10] LABS: Body Fluid QC Type(s) BF3Q
[2025-09-28] VITALS (7 sets, daily range): BP systolic 104–108; BP diastolic 51–64; PULSE 81–88; RESP 17–18; TEMP 36.2–36.6; O2SAT 87–100; BMI 34.7
[2025-09-28] MEDS: 0.9% Saline Lock 10 ML Syringe IV (06:37)
[2025-09-28 06:52] LABS: Hematocrit 42.8 % (37-47); Hemoglobin 12.5 g/dL (12.0-15.0); Immature Granulocytes Count 0.020 X10^3/uL (0.0-0.0); Mean Corp Hgb Conc 29.2 g/dL (32-36); Mean Corpuscular Volume 100.0 fL (81-99); Mean Platelet Vol. 11.3 fl (6.2-12.0); NRBC Flagged by Analyzer 0 % (0-5); POSITIVE DIFFERENTIAL YES; Platelet Count 159 K/mm3 (150-450); RBC Distribution Width CV 15.3 % (11.6-14.6); RBC Distribution Width SD 55.8 fl (35.1-43.9); Red Blood Count 4.28 M/mm3 (4.2-5.4); White Blood Count 4.7 K/mm3 (4.4-11.0)
[2025-09-28 07:40] LABS: Anion Gap 7 (5-15); BUN 17 mg/dL (4-19); BUN/Creat Ratio 20.5 RATIO (10-20); Calcium,Total 8.6 mg/dL (7.6-11.0); Carbon Dioxide 31.3 mmol/L (21.0-32.0); Chloride 103 mmol/L (98-108); Estimated Creatinine Clearance 54.68 ml/min (50-250); Glucose 108 mg/dL (70-99); Potassium 3.8 mmol/L (3.3-5.1)
--- NOTE | 2025-09-28 12:05 | CASEMGMT ---
SHARMIN CASTAÑEDA Face to Face with patient for initial transition planning/care coordination assessment. SHARMIN CASTAÑEDA introduced self and role at [facility]. Patient sitting in chair, alert and oriented, family at bedside. Patient willing to participate in assessment and is able to answer all questions appropriately. Care providers, pharmacy, and demographics verified. Strata: 2 PCP: Suad Specialists: Mihir urologist; RA Norma Preferred Pharmacy: [facility] Insurance: [facility] Prescription Benefit: yes Living Will/HPOA: yes, Kin Ruth LNOK: , daughters Living Arrangements: Patient lives with in a 2 story home with bed and bath on first floor, 3 steps and railing to enter the home. Patient was independent at home but has been requiring assistance with ADLs. Transportation: family, friends. DME/HHC: Patient has shower chair, raised toilet, cane, walker, rollator, pulse at home. No home oxygen. Patient has been to [facility] in the past. Will monitor for home oxygen, prefers [employer]. Patient wishes to discharge home, and is interested in HHC at discharge. Patient has no preferences for HHC and agreeable to have referral sent to multiple facilities that are in network with her insurance due to her geographical region. Patient states she has no further needs or concerns at this time. SHARMIN CASTAÑEDA updated DC production planning manager and per her location and insurance, [facility] is the only one that goest to her area, CM to make referral. CM to follow for discharge planning needs that may arise. Disposition Plan: Patient to discharge home with HHC, family support, and follow-up plans in place. Fabiola CORONA, RN, CM
--- NOTE | 2025-09-28 12:41 | CASEMGMT ---
Discharge Planning A list of?HH providers including quality and resource use data and consistent with the patient's preferred geographic region, medical needs, and insurance network was created in [employer] Guide.? This list was provided to the RN GARRY. Daisy Cheema, Discharge Planning Asst.
--- NOTE | 2025-09-28 13:34 | DCINST_ITS ---
Discharge Instructions DC O2, CPAP, BIPAP needs Home O2 Discharge instructions: No Dressing / Incision Discharge Activity: Return to Normal Activity Dressing / Incision Call your doctor if you observe: Fever of 101 or Higher, Shortness of breath, Dizziness, Fainting spells, Swelling in the ankles, Chest pain and Increased palpitations (irregular heartbeat) Follow Up Care Test Results: Test results from this visit will be discussed in further detail at your follow- up appointment, if applicable. Discharge Plan Admission Admit Date/Time: 09/27/25 12:46 Attending Provider: Alexandro Mathews Primary Care Provider: Harjinder Borjas Discharge Orders/Prescriptions Prescriptions: New cefdinir 300 mg capsule 300 mg PO BID 2 Days Qty: 4 0RF Continued ibuprofen 800 mg tablet 800 mg PO Q8H Referrals / Follow Up: Dejon Mcclendon DO [Med Staff - Active Staff, Pulmonary Medicine] - Within 2 Weeks Referral Note: Needs PFTs Harjinder Borjas MD [Primary Care Provider, Medical] - Within 1 Week Disposition Disposition (needs filled in before D/C Order can be placed): Home, Self Care
--- NOTE | 2025-09-28 13:38 | PCM.DC.SUM ---
Providers Date of Admission: 09/27/25 Primary Care Physician: Dr. Harjinder Borjas MD Reason For Visit: CHF, AND UTI Diagnosis Discharge Diagnosis (1) Acute exacerbation of CHF (congestive heart failure): Status: Chronic Code(s): I50.9 - Heart failure, unspecified (2) Acute UTI: Status: Acute Code(s): N39.0 - Urinary tract infection, site not specified (3) Hypoxia: Status: Acute Code(s): R09.02 - Hypoxemia Medications at Discharge Home Medications ibuprofen 800 mg tablet 800 mg PO Q8H pain 07/04/25 cefdinir 300 mg capsule 300 mg PO BID 2 days #4 caps 09/28/25 Hospital Course Operations None Procedures 2-D Echocardiogram and Thoracentesis Summary of Care Provided Minutes Spent on Discharge: 36 Hospital Course: Per HPI: CARLOS HUNT, is a 80 F who presents to the hospital with increasing shortness of breath and lower extremity edema. She does have a history of stage IV non-small cell lung cancer that she states is in remission, this was discovered in 2018 with a lesion in her T10 vertebral body that was leading possible cord compression she needed emergent surgery. Since that time she has undergone multiple treatment modalities, and so far has no progression of disease with a history of right pleural effusion. Today she is also demonstrating some shortness of breath as she was 87 to 88% on room air which is new for her. Given the moderate pleural effusion may benefit from a thoracentesis. In the meantime her proBNP was elevated to 4300 so there is concern for component of heart failure which would be new to her as well as recurrent UTI with a positive UA, she did receive a dose of Rocephin in the emergency room. Hospital Course: 1. Acute hypoxic respiratory insufficiency unclear etiology?80-year-old female presented to the hospital with increasing shortness of breath and urinary incontinence as well as lower extremity edema. It is nonpitting edema and she keeps send that she feels fine but was family who asked her to come into the hospital. She is requiring 2 L of oxygen with ambulation and at rest on discharge, I have reviewed the oxygen testing, and this patient qualifies for the home equipment and portability. The patient is mobile in the home and the community. She did have a thoracentesis that demonstrated a possible exudative effusion however this is a chronic right pleural effusion and that she had received Lasix which can manipulate the results, will send fluid for cytology given her cancer history. I do recommend that she follow-up with pulmonology in the outpatient setting for pulmonary function testing to get a better understanding of her shortness of breath. She did have an echocardiogram that demonstrated an EF of 75% with no other abnormalities, no wall motion abnormality and bilateral atria were normal. She was started on Lasix which she tolerated from a blood pressure and renal function standpoint however she is concerned about going home on Lasix with her consistent incontinence. I do recommend follow-up with urology for possible surgical intervention of her incontinence if indicated. In the meantime we will hold off on giving her any diuretics since the echo does not show any obvious signs of heart failure. Will recommend pulmonology in 2 weeks as well as follow-up with her PCP in 3 to 5 days. 2. UTI?is not having any symptoms however UA was positive and culture is also positive with greater than 100,000 CFU's of gram-negative jovany, she did receive 2 days of Rocephin so we will continue another 2 days of cefdinir on discharge complete treatment. Her PCP can follow-up the culture in the outpatient setting. Physical Exam Narrative General: Alert, Oriented x3, Cooperative, No apparent distress HEENT: Atraumatic, PERRLA, EOMI, Normocephalic Oral: Moist Mucosa Neck: Supple, No JVD Lungs: Diminished right greater than left, Normal air movement, No rhonchi, No wheeze, No rales Cardiovascular: Regular rate, Regular Rhythm, Normal S1, Normal S2, No murmurs Abdomen: Soft, Non Tender, Non-Distended, No Hepato-splenomegaly Extremities: Nonpitting edema, Capillary Refill Less than 3 Seconds Skin: No rashes, No breakdown Musculoskeletal: No Tenderness to Palpation of Joints or Extremities Neurological: No focal neurological deficits, moves all extremities Psych/Mental Status: Normal Affect, Appropriate Weight / BMI Weight Weight: 196 lb 6.91 oz Body Mass Index (BMI) 34.7 ABG / Lab / Microbiology Data 09/28/25 06:38 09/28/25 06:39 Laboratory: Laboratory Results - last 24 hr 09/27/25 11:30: Total Protein 6.3 09/27/25 15:00: Fluid Source THORACENTESIS, Fluid Color LT YEL, Fluid Appearance CLOUDY, Fluid WBC 0.216, Fluid RBC 345, Fluid Tot Cell Count 0.216 H, Fld Polynuclear WBCs # 0.003, Fld Polynuclear WBCs % 1.3, Fluid Mononuclear WBCs 0.213, Fld Mononuclear WBCs % 98.7, Fluid Neutrophils 1, Fluid Lymphocytes 64, Fluid Monocytes 21, Fluid Macrophages 12, Fld Mesothelial Cells 2, Fl Pathologist Comment May follow, Fluid Glucose 85, Fluid Total Protein 3.1, Fluid LDH 88, Fluid Comment 2 SEE COMMENT 09/27/25 16:40: PT 14.5, INR 1.1, Troponin T Hi Sens 4Hr 49 H 09/28/25 06:38: WBC 4.7, RBC 4.28, Hgb 12.5, Hct 42.8, MCV 100.0 H, MCH 29.2, MCHC 29.2 L D, RDW Std Deviation 55.8 H, RDW Coeff of Lalit 15.3 H, Plt Count 159, MPV 11.3, Immature Gran % (Auto) 0.400, Neut % (Auto) 79.5 H, Lymph % (Auto) 8.9 L, [place] % (Auto) 7.8, Eos % (Auto) 2.8, Baso % (Auto) 0.6, Absolute Neuts (auto) 3.8, Absolute Lymphs (auto) 0.42 L, Nucleated RBC % 0 09/28/25 06:39: Sodium 142, Potassium 3.8, Chloride 103, Carbon Dioxide 31.3, Anion Gap 7, BUN 17, Creatinine 0.84, Estim Creat Clear Calc 54.68, Est GFR (MDRD) Non-Af 70, BUN/Creatinine Ratio 20.5 H, Glucose 108 H, Calcium 8.6 Microbiology: Microbiology 09/27/25 10:43 Urine, Clean Catch Urine Culture - Preliminary GNR 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 The patient tolerated the procedure well. No immediate complication is noted. Reading Location: [facility] Echocardiogram 09/27/25 13:32 Interpretation Summary The estimated ejection fraction is 75 %. Trivial aortic valve insufficiency. Ordering Physician: Alexandro Mathews Referring Physician: Harjinder Borjas Performed By: Annita Bolanos, RDCS, RVT Chest X-Ray 09/27/25 15:05 IMPRESSION: No evidence of right-sided pneumothorax following the thoracentesis. Reading Location: [place] [address] D/C Instructions Call your doctor if you observe: Fever of 101 or Higher, Shortness of breath, Dizziness, Fainting spells, Swelling in the ankles, Chest pain and Increased palpitations (irregular heartbeat) DC O2, CPAP, BIPAP Needs Home O2 Discharge instructions: No Meaningful Use Info Meaningful Use Meaningful Use Diagnoses (Choose all that apply): None applicable Discharge Plan Admission Admit Date/Time: 09/27/25 12:46 Attending Provider: Alexandro Mathews Primary Care Provider: Harjinder Borjas Discharge Orders/Prescriptions Prescriptions: New cefdinir 300 mg capsule 300 mg PO BID 2 Days Qty: 4 0RF Continued ibuprofen 800 mg tablet 800 mg PO Q8H Referrals / Follow Up: Dejon Mcclendon DO [Med Staff - Active Staff, Pulmonary Medicine] - Within 2 Weeks Referral Note: Needs PFTs Harjinder Borjas MD [Primary Care Provider, Medical] - Within 1 Week Disposition Disposition (needs filled in before D/C Order can be placed): Home, Self Care Charges/Coding Visit Charges Inpatient E&M: 96724 Disch Hosp >30min
--- NOTE | 2025-09-28 14:08 | CASEMGMT ---
Addendum entered by Fabiola Macias 09/28/25 16:21: RN GARRY received call back from [facility], they are able to accept patient with planned start of care for tomorrow. Patient requires home oxygen at discharge, script received and referral sent to [facility], preferred provider. SHARMIN CASTAÑEDA in to update patient regarding acceptance by [facility] and planned start of care for tomorrow. SHARMIN CASTAÑEDA provided private duty list to patient. Patient and family had no further questions or concerns. RN GARRY updated discharge plan. Original Note: SHARMIN CASTAÑEDA called and made referral to [facility], awaiting response.
--- NOTE | 2025-09-28 15:18 | PHA.DC.COU.R ---
Pharmacy [facility] has performed discharge medication counseling for this patient. The patient was counseled on the following discharge medications and changes in medications for homegoing review. - Cefdinir 300 mg capsule The Reason for Use, instructions for use, and potential side effects were reviewed for all new medications. The patient's questions regarding all of their medications were answered. The patient was able to verbally demonstrate an understanding of their discharge medications. Medications at Discharge Home Medications ibuprofen 800 mg tablet 800 mg PO Q8H pain 07/04/25 cefdinir 300 mg capsule 300 mg PO BID 2 days #4 caps 09/28/25
[2025-10-04 09:02] LABS: Pathologist Comment/Body Fluid Reviewed
== END 2025-09-28 17:24 | disposition home health service (06) | DRG 291 ==
LOC: ED 12:48 → PCU 12:58
PROVIDERS: Admitting Provider Family Medicine; Emergency Provider Emergency Medicine; PCP Family Medicine; Visit Provider Family Medicine
DX: I11.0 Hypertensive heart disease with heart failure (principal); I50.33 Acute on chronic diastolic (congestive) heart failure; J91.8 Pleural effusion in other conditions classified elsewhere; N39.0 Urinary tract infection, site not specified; E11.40 Type 2 diabetes mellitus with diabetic neuropathy, unspecified; R09.02 Hypoxemia; R32 Unspecified urinary incontinence; B96.89 Other specified bacterial agents as the cause of diseases classified elsewhere; Z87.440 Personal history of urinary (tract) infections; Z87.891 Personal history of nicotine dependence; Z85.830 Personal history of malignant neoplasm of bone; Z85.118 Personal history of other malignant neoplasm of bronchus and lung; Z92.3 Personal history of irradiation; Z92.21 Personal history of antineoplastic chemotherapy
CPT/HCPCS: 32555; 71046; 71275; 80048; 81001; 82945; 83615; 83735; 83880; 84155; 84157; 84443; 84484; 85025; 85610; 87077; 87086; 87088; 87186; 87631; 88108; 88305; 88313; 89050; 93005; 93306; 99285; Q9957; Q9967; A4216; C8929; J1938

== ENCOUNTER 2025-10-01 18:21 | Inpatient (IN) | payer MEDICARE, SELFPAY ==
[2018-12-13 14:35] VITALS: BMI 42.2
[2025-10-01 18:22] VITALS: BP 137/62; PULSE 88; RESP 20; TEMP 36.6; O2SAT 96; BMI 34.0
--- NOTE | 2025-10-01 18:49 | RAD_ITS ---
EXAM: XR Chest, 2 Views CLINICAL INDICATION: CHEST PAIN TECHNIQUE: Frontal and lateral views of the chest. COMPARISON: XR Chest dated 09/27/2025 FINDINGS: LUNGS AND PLEURAL SPACES: Right pleural effusion. HEART: Cardiomegaly with pulmonary congestion and edema. Superimposed pneumonia cannot be excluded. MEDIASTINUM: Unremarkable. Normal mediastinal contour. BONES/JOINTS: Posterior spinal fusion. No acute fracture. TUBES, LINES AND DEVICES: Right-sided Mediport with the distal tip in the SVC. No pneumothorax. RAD/Chest PA and Lateral IMPRESSION: 1. Cardiomegaly with pulmonary congestion and edema. Superimposed pneumonia ca nnot be excluded. 2. Right pleural effusion. Reading Location: [facility]
--- NOTE | 2025-10-01 18:49 | EKG12_ITS ---
Test Reason : DYSRHYTHMIA Blood Pressure : */* mmHG Vent. Rate : 89 BPM Atrial Rate : 89 BPM P-R Int : 200 ms QRS Dur : 86 ms QT Int : 362 ms P-R-T Axes : 45 223 6 degrees QTcB Int : 440 ms Normal sinus rhythm Right superior axis deviation Abnormal ECG Confirmed by KATEY LEACH MD ([id number]), associate entertainment editor DEREK STOVER ([id number]) on 10/02/2025 9:19:54 AM Referred By: MADAI Confirmed By: KATEY LEACH MD
--- NOTE | 2025-10-01 18:59 | EX.ED.DYSGE1 ---
HPI History of Present Illness Chief Complaint: Edema Informant: patient and family (2 granddaughters at bedside.) Onset/Context/Timing Onset: Today and Yesterday Context: Gradual Onset Timing: Continuous Current Severity: Moderate Maximum Severity: Moderate Narrative Narrative: 80-year-old female recent admission for CHF history of prior stage IV lung cancer was spinal and lymph node mets for which she had spinal surgery in her thoracic spine and rods. History of diabetes and pulm effusions. Recently was admitted to the hospital was discharged on she was admitted for UTI and CHF. Daughters states she has swelling in her legs again. She is not on any diuretic at home. Also she has been confused and was in a chair for about 20 hours. They think she may have had a left eye droop earlier today but that is since resolved. She did recommend her . She has had very limited oral intake over the last 24 hours. Prior similar symptoms: Yes Recent Illness/Hospitalization: Yes PFSH PFS Medical History Former smoker Urge incontinence Overactive bladder port placement Non-small cell carcinoma of right lung, stage 4 L4-L5 decompression Peripheral neuropathy GERD (gastroesophageal reflux disease) Mass of middle lobe of right lung Pleural effusion, right Disseminated malignancy Hypothyroidism Morbid (severe) obesity due to excess calories Hyperlipidemia associated with type 2 diabetes mellitus Back pain of thoracolumbar region Hypothyroidism Diabetes HTN (hypertension) Metastatic cancer Home Medications Medication Instructions Recorded Last Taken Type cefdinir 300 mg capsule 300 mg PO BID 2 days #4 caps 09/28/25 Unknown Rx Allergy/AdvReac Type Severity Reaction Status Date / Time phenazopyridine (From Allergy Nausea Verified 10/01/25 18:22 Pyridium) codeine AdvReac Severe Nausea/Vom/ Verified 10/01/25 18:22 Diarrhea hydrocodone (From Vicodin) AdvReac Severe Nausea/Vom/ Verified 10/01/25 18:22 Diarrhea morphine AdvReac Severe severe Verified 10/01/25 18:22 sedation lisinopril AdvReac Intermediate cough Verified 10/01/25 18:22 Sulfa (Sulfonamide AdvReac Intermediate Unknown Verified 10/01/25 18:22 Antibiotics) sulfamethoxazole (From AdvReac Intermediate Unknown Verified 10/01/25 18:22 Septra) trimethoprim (From Septra) AdvReac Intermediate Unknown Verified 10/01/25 18:22 Family History Father Heart problem Mother Lung cancer Sister Lung cancer Surgical History Hx of cholecystectomy Hx of hemorrhoidectomy History of tonsillectomy Social History housing: house Smoking Status: Former smoker ROS ROS ED ROS Narrative Denies nausea, vomiting or diarrhea. Denies fever or dysuria. Constitutional Constitutional ED: Denies chills or fever(s) Eyes Eyes: Denies blurry vision ENT ENT ED: Denies ear pain Cardiovascular Cardiovascular: Denies chest pain Respiratory/Chest Respiratory/Chest: Denies cough or dyspnea Gastrointestinal Gastrointestinal: Denies abdominal pain Genitourinary Genitourinary ED: Denies dysuria or hematuria Musculoskeletal Musculoskeletal: Denies arthralgias Integumentary Denies abscess Neurologic Neurologic: Denies headache(s) Psychiatric Psychiatric: Denies anxiety Endocrine Endocrinology: Denies cold intolerance Hematologic/Lymphatic Hematologic/Lymphatic: Reports none Allergic/Immunologic Allergic/Immunologic ED: Denies mouth swelling, tongue swelling or urticaria EXAM Physical Exam Narrative Exam Narrative: 78-year-old female sitting upright in bed. Vital signs are stable afebrile. Pulse ox 96% on room air no hypoxia. No distress. 2 granddaughters at bedside. H EENT exam pupils round react light. Moist mucous membranes. Neck nontender no JVD. No lymphadenopathy. Lungs clear to auscultation bilaterally. Heart regular rhythm rate about 90 no murmur. Chest wall and ribs are nontender. Abdomen soft nontender. Moving all 4 extremities. 1+ edema both lower extremities. Normal service center assistant strength. Normal dorsi plantarflexion. Back nontender. Well-healed thoracic spine scar. Neurologically she is awake alert. Answering questions following commands. Normal service center assistant strength. Normal dorsi plantarflexion. She knows the day of the week, month and year. She knows where she is. She is speaking normally. Currently there is no facial droop or abnormal speech. Const Vital Signs: 10/01/25 18:22 10/01/25 18:36 10/01/25 19:13 Temperature 97.8 F Temperature Source Oral Pulse Rate 88 Respiratory Rate 20 H Respiratory Effort Normal Respiratory Pattern Normal Blood Pressure 137/62 H Blood Pressure Mean 87 Pulse Ox 96 100 Oxygen Delivery Method Room Air Nasal Cannula Oxygen Flow Rate (L/min) 2 10/01/25 20:21 Temperature Temperature Source Pulse Rate 91 Respiratory Rate 16 Respiratory Effort Respiratory Pattern Blood Pressure 145/48 H Blood Pressure Mean 80 Pulse Ox 100 Oxygen Delivery Method Nasal Cannula Oxygen Flow Rate (L/min) 2 MDM MDM MDM Narrative Medical decision making narrative: 80-year-old female recent admission for CHF and UTI family states she is not thriving well at home she was sitting in the same chair for about 20 hours, has had decreased oral intake and seemed confused today with possible facial droop. Greening labs and a CT CTA head and neck will be obtained. Differential could include CHF, renal disease, UTI, infection, TIA or stroke. Re-exam patient is resting comfortably around 8:55 PM. Both daughters at bedside. They are speaking to our child protective services social worker. I went over the test results that are returned so far. They are pretty much her baseline. Nursing is going to attempt a walk the patient to see if she is able to walk. Patient was able to ambulate with nursing but needed a lot of help to get out of bed. I spoke to the daughters around 11 PM. They do not feel show will make it at home and like her to be admitted for failure to thrive. History & Record Review Discussion w/independent historian: Patient and Family Additional record(s) reviewed:: Prior inpatient record, Prior outpatient record, Prior ED visit and Prior labs Lab Data Attestation: I reviewed the patient's lab results. Lab results narrative: CBC shows a white count of 5. H&H 13 and 43. Platelets 143. Electrolytes show gap of 6. BUN and creatinine of 10 and 0.6. Glucose 116. Initial troponin is 30. 2-hour troponin is 31. UA is negative. No nitrates. No white or red cells. 1+ bacteria. BN P is 2,908. Labs: Laboratory Results - last 24 hr 10/01/25 10/01/25 10/01/25 19:10 21:15 22:37 WBC 5.4 RBC 4.42 Hgb 13.1 Hct 43.6 MCV 98.6 MCH 29.6 MCHC 30.0 L RDW Std Deviation 52.8 H RDW Coeff of Lalit 14.4 Plt Count 143 L MPV 11.1 Immature Gran % (Auto) 0.600 Neut % (Auto) 75.8 H Lymph % (Auto) 10.4 L [place] % (Auto) 8.3 Eos % (Auto) 4.3 Baso % (Auto) 0.6 Absolute Neuts (auto) 4.1 Absolute Lymphs (auto) 0.56 L Nucleated RBC % 0 Sodium 139 Potassium 3.4 Chloride 99 Carbon Dioxide 34.2 H Anion Gap 6 BUN 10 Creatinine 0.61 L Estim Creat Clear Calc 56.73 Est GFR (MDRD) Non-Af 89 BUN/Creatinine Ratio 17.1 Glucose 116 H Calcium 9.2 Troponin T High Sens 30 H D Troponin T Hi Sens 2 Hr 31 H NT pro BNP II 2908 H Urine Color Yellow Urine Clarity Clear Urine pH 7.0 Ur Specific [place] 1.010 Urine Protein 30 H Urine Glucose (UA) Normal Urine Ketones Negative Urine Occult Blood 10 H Urine Nitrite Negative Urine Bilirubin Negative Urine Urobilinogen Normal Ur Leukocyte Esterase Negative Urine RBC 0-5 SEEN Urine WBC 0-5 SEEN Ur Squamous Epith Cells 5-10 SEEN Urine Bacteria 1+ Urine Mucus 0 SEEN Radiography Chest X-Ray - ED: 2 View, Read by ED Physician, Mediastinum, Bony Structures, Chronic Changes and Right Effusion Diagnostic Testing: Clinical Impression(s) from Imaging Studies Chest X-Ray 10/01/25 18:49 IMPRESSION: 1. Cardiomegaly with pulmonary congestion and edema. Superimposed pneumonia cannot be excluded. 2. Right pleural effusion. Reading Location: [facility] Brain CT 10/01/25 20:10 IMPRESSION: 1. No acute intracranial hemorrhage, midline shift or mass effect. If symptoms persist, further evaluation with MRI is recommended. 2. Mild small vessel ischemic/degenerative changes. Reading Location: [facility] Head/Neck CTA 10/01/25 20:10 IMPRESSION: No high grade stenosis or large vessel occlusions. Possible spiculated lesion within the right upper lobe measuring 1.6 x 1.6 cm. Reading Location: [facility] Chest x-ray, 2 views, AP lateral, interpreted by myself shows normal cardiac silhouette. Right pleural effusion which she has had before in the past. Mediport on the right. Otherwise no other acute process. Chronic changes. Thoracic spine rods. Rhythm Strip Rhythm Strip: Sinus Rhythm Rate: 89 Ectopy: None EKG Initial EKG: Attestation: I personally reviewed and interpreted this EKG as follows: Interpretation: Sinus Rhythm and No Acute Injury Pattern Comments: Normal sinus rhythm rate 89 no acute signs of [place] or ischemia. No dysrhythmia. Discharge Plan Dx/Rx/DC Orders Clinical Impression: Generalized muscle weakness, Adult failure to thrive, Congestive heart failure, History of lung cancer, Pleural effusion, History of diabetes mellitus Disposition Disposition: Acute Care Hospital [facility]
[2025-10-01 19:13] VITALS: O2SAT 100
[2025-10-01 19:24] LABS: Hematocrit 43.6 % (37-47); Hemoglobin 13.1 g/dL (12.0-15.0); Immature Granulocytes Count 0.030 X10^3/uL (0.0-0.0); Mean Corp Hgb Conc 30.0 g/dL (32-36); Mean Corpuscular Volume 98.6 fL (81-99); Mean Platelet Vol. 11.1 fl (6.2-12.0); NRBC Flagged by Analyzer 0 % (0-5); POSITIVE DIFFERENTIAL YES; Platelet Count 143 K/mm3 (150-450); RBC Distribution Width CV 14.4 % (11.6-14.6); RBC Distribution Width SD 52.8 fl (35.1-43.9); Red Blood Count 4.42 M/mm3 (4.2-5.4); White Blood Count 5.4 K/mm3 (4.4-11.0)
[2025-10-01 19:47] LABS: Anion Gap 6 (5-15); BUN 10 mg/dL (4-19); BUN/Creat Ratio 17.1 RATIO (10-20); Calcium,Total 9.2 mg/dL (7.6-11.0); Carbon Dioxide 34.2 mmol/L (21.0-32.0); Chloride 99 mmol/L (98-108); Estimated Creatinine Clearance 56.73 ml/min (50-250); Glucose 116 mg/dL (70-99); Potassium 3.4 mmol/L (3.3-5.1); Pro- Brain NATRIURETIC PEPTIDE 2908 pg/mL (<=1800); Troponin T High Sensitivity 30 ng/L (<=14)
--- OUTSIDE RECORDS SUMMARY | 2025-10-01 19:52 | XMS RPT_ITS | CCD ---
Author Organization [facility] CliniSynj Care Team Providers Care Lab Animal Technologist Name Role Phone Unavailable Primary Care Provider UnavailLucho Coates Admitting Unavailable Lucho Fiore Attending Unavailable Unavailable Primary Care Provider Unavailvicente Braswell MD, Emil Min Primary Care Provider Yajaira BRISENO, Arthur Unavailable Arthur Gates MD Unavailable Emil Braswell MD Primary Care Provider Ronnie DEFENCE INTELLIGENCE ANALYST.Ruba MENDIOLA Unavailable Denise DEFENCE INTELLIGENCE ANALYST.FAMILY PROTECTION SPECIALIST, Reva A Unavailable [phone] Michaelle BRISENO, Dr. Grande Primary Care Provider Michaelle BRISENO, Dr. Grande Referring Provider Yajaira BRISENO, Dr. Gibson Attending Provider Cesar SANTOS, Dr. Sarabia Other Provider Michaelle BRISENO, Dr. Grande Primary Care Provider Mihir BRISENO, Dr. Guerrero Attending Provider RUBA TRUJILLO Attending Unavailable EMIL BRASWELL Primary Care Unavailable REVA WASSERMAN A Referring Unavailable EMIL BRASWELL Primary Care Unavailable REVA WASSERMAN A Referring Unavailable EMIL BRASWELL Primary Care Unavailable REVA WASSERMAN A Attending Unavailable SELF Referring Unavailable EMIL BRASWELL Primary Care Unavailable RUBA TRUJILLO Attending Unavailable EMIL BRASWELL Primary Care Unavailable RUBA TRUJILLO Referring Unavailable EMIL BRASWELL Primary Care Unavailable RUBA TRUJILLO Referring Unavailable EMIL BRASWELL Primary Care Unavailable RUBA TRUJILLO Referring Unavailable MICHAELLE, EMIL Min Primary Care Unavailable RUBA TRUJILLO Attending Unavailable EMIL BRASWELL Primary Care Unavailable WISWELL, NORA Referring Unavailable MICHAELLEEMIL Pako Primary Care Unavailable NORA GUERRERO Attending Unavailable [facility], EMIL Pako Primary Care Unavailable RUBA TRUJILLO Attending Unavailable MICHAELLE, EMIL Min Primary Care Unavailable [place], Emil Referring Unavailable BernaArthur bocanegra Attending Unavailable Michaelle, Emil Primary Care Unavailable Yolanda Ash Attending Unavailable [place], Emil Primary Care Unavailable [place], Emil Referring Unavailable Michaelle, Emil Primary Care Unavailable Mayco Marc Attending UnavailAlexandro Thompson Consulting Unavailable [place], Emil Primary Care Unavailable Alexandro Mathews Attending Unavailable Alexandro Mathews Admitting Unavailable Michaelle, Emil Referring Unavailable Arthur Gates Attending Unavailable [place], Emil Primary Care Unavailable Cornell Guerrero Consulting Unavailable Allergies Allergy Classification Reported Allergen(s) Allergy Type Date of Onset Reaction(s) Facility (20 sources) Codeine; Translations: [CODEINE] Drug Allergy 10-13-20 05 Vomiting [facility] Work Phone: (5 sources) HYDROcodone Drug Allergy 11-25-19 22 Nausea/Vom/Sparkle rrhea [facility] (20 sources) Lisinopril; Translations: [LISINOPRIL] Drug Allergy 05-24-20 13 Cough [facility] (20 sources) Morphine; Translations: [MORPHINE] Drug Allergy 12-24-19 19 Mental Status Change [facility] Work Phone: (5 sources) Phenazopyridine Drug Allergy 11-25-19 [address] [facility] (5 sources) Sulfamethoxazole Drug Allergy 11-25-[address] [facility] (20 sources) Sulfonamides (Antibiotic); Translations: [SULFA (SULFONAMIDE ANTIBIOTICS)] Propensity to adverse reactions 10-13-20 05 Unknown [facility] Work Phone: (5 sources) Trimethoprim Drug Allergy 11-25-[address] [facility] (20 sources) Acetaminophen / HYDROcodone; Translations: [HYDROCODONE-ACETAM INOPHEN] Drug Allergy 09-28-20 12 GI Upset [facility] (20 sources) Sulfamethoxazole / Trimethoprim; Translations: [SULFAMETHOXAZOLE-T RIMETHOPRIM] Drug Allergy 10-13-20 05 [facility] Work Phone: (1 source) Codeine Drug Allergy 09-27-[address] [facility] Repository (1 source) HYDROcodone Drug Allergy 09-27-[address] [facility] (1 source) Lisinopril Drug Allergy 09-27-[address] [facility] (1 source) Morphine Drug Allergy 07-04-[address] [facility] (1 source) Phenazopyridine Drug Allergy 09-27-[address] [facility] (1 source) Sulfamethoxazole Drug Allergy 09-27-[address] [facility] (1 source) Trimethoprim Drug Allergy 09-27-[address] [facility] Repository Medications Current Medications Medication Drug Class(es) Dates Sig (Normalized) Sig (Original) acetaminophen 500 mg oral tablet (4 sources) take 1 tablet by mouth every eight hours as needed acetaminophen (TYLENOL EXTRA STRENGTH) 500 mg tablet Take 500 mg by mouth every 8 hours as needed for pain. Active cephalexin 500 mg oral capsule (2 sources) Cephalosporin Antibacterial Start: 02-25-2023 End: 03-04-2023 take 1 capsule by mouth three times daily cephALEXin (KEFLEX) 500 mg capsule Indications: Dysuria , Microscopic hematuria Take 1 capsule by mouth three times daily for 7 days. 21 capsule 0 02/25/2023 03/04/2023 Active Comment on above: Take 1 capsule by mo [facility] three times daily for 7 days. ciprofloxacin 250 mg oral tablet (6 sources) Quinolone Antimicrobial Start: 03-05-2023 End: 03-08-2023 take 1 tablet by mouth twice daily ciprofloxacin HCl (CIPRO) 250 mg tablet Take 1 tablet by mouth twice daily for 3 days. 6 tablet 0 03/05/2023 03/08/2023 Active Start: 10-05-2019 End: 10-13-2019 take 1 tablet by mouth once daily Ciprofloxacin Hcl 500 MG tablet Discontinued 500 mg PO DAILY 3 3 0 October 05, 2019 1:00am October 07, 2019 1:00am October 13, 2019 1:08am Dysuria Dysuria Comment on above: Take 1 tablet by maria teresa twice daily for 3 days. docusate sodium 100 mg oral capsule (20 sources) Start: 03-21-20 End: 02-26-20 docusate sodium (COLACE) 100 mg capsule Indications: Constipation, unspecified constipation type Can take up to six or eight at night 02/25/2023 Active Comment on above: Can take up to six o r eight at night DULoxetine 20 mg delayed release oral capsule (5 sources) Serotonin and Norepinephrine Reuptake Inhibitor Start: 06-13-20 End: 09-11-20 take 1 capsule by mouth once daily DULoxetine DR (CYMBALTA) 20 mg capsule Indications: Bilateral hand pain Take 1 capsule by mouth once daily. 30 capsule 2 06/13/2025 09/11/2025 Active Start: 02-21-2021 End: 02-25-2023 take 1 capsule by mouth once daily DULoxetine (CYMBALTA) 60 mg capsule Take 60 mg by mouth once daily. 0 02/21/2021 02/25/2023 Discontinued Comment on above: Take 60 mg by mouth once daily. enteric contrast (will be provided with radiology test) (3 sources) Start: 04-25-2025 End: 04-26-2025 enteric contrast (will be provided with radiology test) For CT CHESTABD/PEL W IVCON Routine order Administer, As Directed One Time Only, via Oral, Rectal, both Oral and Rectal, Enteric Tube, Stoma or Indwelling Catheter, Enteric Contrast as designated per enteric contrast guidelines 1 each 04/25/2025 04/26/2025 Active Start: 02-17-2024 End: 02-18-2024 enteric contrast (will be pr ovided with radiology test) Indications: Intra-abdominal and pelvic swelling, mass and lump, unspecified site For CT ABD/PEL W IVCON Routine order Administer, As Directed One Time Only, via Oral, Rectal, both Oral and Rectal, Enteric Tube, Stoma or Indwelling Catheter, Enteric Contrast as designated per enteric contrast guidelines 1 Each 0 02/17/2024 02/18/2024 Active Comment on above: For CT ABD/PEL W IVC ON Routine order Administer, As Directed One Time Only, via Oral, Rectal, both Oral and Rectal, Enteric Tube, Stoma or Indwelling Catheter, Enteric Contrast as designated per enteric contrast guidelines ibuprofen 800 mg oral tablet (12 sources) Nonsteroidal Anti-inflammatory Drug Start: 07-04-2025 take 1 tablet by mouth every eight hours Ibuprofen 800 mg tablet Active 800 mg PO Q8H July 04, 2025 12:00am Start: 05-12-2019 End: 05-30-2025 take 400-600 mg by mouth every six hours as needed for pain Ibuprofen 200 MG tablet Discontinued 400 - 600 mg PO EVERY 6 HOURS NEEDED as needed for Pain May 12, 2019 12:00am May 30, 2025 3:01pm Start: 10-29-2018 End: 12-29-2018 take 1 tablet by mouth every six hours as needed for pain Ibuprofen 600 MG tablet Discontinued 600 mg PO EVERY 6 HOURS NEEDED as needed for Pain 14 0 October 29, 2018 1:00am December 29, 2018 9:27am Comment on above: Take 200 mg by mouth as needed (Takes 400-600mg as needed). iv contrast (will be provided with radiology test) (3 sources) Start: 04-25-2025 End: 04-26-2025 iv contrast (will be provided with radiology test) CT Chest ABD/PEL-Inject, intravenously, once for 1 dose.No IV access, insert saline lock prior to the beginning of sedation, infusion, injection of imaging exam. Discontinue saline lock post exam. If Pt. has a central line or IVAD, may access for administration according to line specific nursing protocol. Once exam is complete flush line and de-access according to line specific nursing protocol in the CT contrast administration guidelines link. 1 each 04/25/2025 04/26/2025 Active Start: 02-17-2024 End: 02-18-2024 iv contrast (will be provide d with radiology test) Indications: Intra-abdominal and pelvic swelling, mass and lump, unspecified site CT ABD/PEL -Inject, intravenously, once for 1 dose.No IV access, insert saline lock prior to the beginning of sedation, infusion, injection of imaging exam. Discontinue saline lock post exam. If Pt. has a central line or IVAD, may access for administration according to line specific nursing protocol. Once exam is complete flush line and de-access according to line specific nursing protocol in the CT contrast administration guidelines link. 1 Each 0 02/17/2024 02/18/2024 Active Comment on above: CT ABD/PEL -Inject, intravenously, once for 1 dose.No IV access, insert saline lock prior to the beginning of sedation, infusion, injection of imaging exam. Discontinue saline lock post exam. If Pt. has a central line or IVAD, may access for administration according to line specific nursing protocol. Once exam is complete flush line and de-access according to line specific nursing protocol in the CT contrast administration guidelines link. methenamine hippurate 1000 mg oral tablet (17 sources) Start: 04-03-20 End: 07-04-20 take 1 tablet by mouth twice daily at mealtime Methenamine Hippurate (HIPREX) 1 gram tablet Take 1 g by mouth two times a day with meals. 04/03/2025 Active 24 hr mirabegron 50 mg extended release oral tablet (16 sources) beta3-Adrenergic Agonist Start: 05-30-20 take 1 tablet by mouth twice daily Mirabegron (Myrbetriq) 50 mg tablet extended release 24 hr Active 50 mg PO TWICE A DAY May 30, 2025 12:00am Start: 03-09-2025 take 2 tablets by mo uth once daily MYRBETRIQ 50 mg Tb24 Take 2 tablets by mouth once daily. 03/09/2025 Active multivitamin tablet (20 sources) take 1 tablet by maria teresa th once daily multivitamin tablet Take 1 tablet by mouth once daily. Active take 1 tablet by mouth once ellie y multivitamin tablet Take 1 tablet by mouth once daily. 0 Active Comment on above: Take 1 tablet by maria teresa th once daily. Wqqugeywerzx-Ut-Uxdk- Minerals (3 sources) Start: 018 Vxvvddjexhtr-Gg-Need- Minerals Active 1 EACH PO DAILY August 11, 2018 12:00am nitrofurantoin, macrocrystals 25 mg / nitrofurantoin, monohydrate 75 mg oral capsule (3 sources) Nitrofuran Antibacterial Start: 025 take 1 capsule by mouth twice daily at mealtime Nitrofurantoin Monohyd/M-Cryst (Macrobid) 100 mg capsule Active 100 mg PO TWICE A DAY 14 0 July 04, 2025 12:00am must administer with a meal/food Start: 05-26-2025 End: 06-02-2025 take 1 capsule by mouth twice daily at mealtime nitrofurantoin monohydrate and macrocrystal (MACROBID) 100 mg capsule Indications: Acute cystitis without hematuria Take 1 capsule by mouth two times a day with meals for 7 days. 14 capsule 05/26/2025 06/02/2025 Active omeprazole 20 mg delayed release oral capsule (13 sources) Proton Pump Inhibitor Start: 04-26-2025 take 1 capsule by mouth once daily omeprazole (PRILOSEC) 20 mg capsule Take 1 capsule by mouth once daily. 90 capsule 1 04/26/2025 Active predniSONE 10 mg oral tablet (1 source) Start: 07-11-2025 End: 07-23-2025 predniSONE (DELTASONE) 10 mg tablet Take 4 tabs daily x 3 days, then 3 tabs x 3 days, 2 tabs x 3 days, then 1 tab x3 days with food. 30 tablet 07/11/2025 07/23/2025 Active Completed/Discontinued Medications Medication Drug Class(es) Dates Sig (Normalized) Sig (Original) acetaminophen 325 mg / oxyCODONE hydrochloride 5 mg oral tablet (5 sources) Opioid Agonist Start: 11-23-2020 End: 11-26-2020 Oxycodone-Acetamino phen 1 TABLET tablet Discontinued 1 {tbl} PO EVERY 6 HOURS NEEDED as needed for Pain 12 3 0 November 23, 2020 November 25, 2020 1:00am November 26, 2020 1:03am Chest pain Malignant neoplasm of lung Chest pain, unspecified Malignant neoplasm of unspecified part of unspecified bronchus or lung Start: 11-23-2020 End: 11-26-2020 take 1 tablet by mouth every six hours as needed Oxycodone-Acetaminophen Discontinued 1 TABLET PO EVERY 6 HOURS NEEDED 12 3 November 23, 2020 November 26, 2020 1:03am amitriptyline hydrochloride 25 mg oral tablet (10 sources) Tricyclic Antidepressant Start: 01-06-2019 End: 05-16-2019 take 1 tablet by mouth at bedtime Amitriptyline 25 MG tablet Discontinued 25 mg PO AT BEDTIME 30 March 07, 2019 11:17am May 16, 2019 1:58pm amoxicillin 875 mg / clavulanate 125 mg oral tablet (5 sources) Penicillin-class Antibacterial Start: 01-30-2020 End: 02-09-2020 take 1 tablet by mouth every twelve hours Amoxicillin-Pot Clavulanate 875 MG tablet Discontinued 875 mg PO Q12H 20 10 0 January 30, 2020 12:00am February 08, 2020 12:00am February 09, 2020 12:07am bisacodyl 5 mg delayed release oral tablet (20 sources) Stimulant Laxative Start: 05-06-2021 End: 05-30-2025 take 1 tablet by mouth once as needed for constipation Bisacodyl (Dulcolax (Bisacodyl)) 5 mg tablet,delayed release (DR/EC) Discontinued 5 mg PO ONCE as needed for constipation May 06, 2021 12:00am May 30, 2025 3:00pm Bisacodyl (DULCO LAX) 5 mg tab Take 5 mg by mouth as needed for constipation. Active End: 02-25-2023 take 10 mg rectal route once daily as needed for constipation bisacodyl (DULCOLAX) 10 mg supp 10 mg by RECTAL route once daily as needed for Constipation. 0 02/25/2023 Discontinued Comment on above: 10 mg by RECTAL rout e once daily as needed for Constipation. folic acid 1 mg oral tablet (10 sources) Start: 9 End: 9 take 1 tablet by mouth once daily Folic Acid 1 MG tablet Discontinued 1 mg PO DAILY 90 90 1 February 28, 2019 11:07am July 01, 2019 12:00am July 02, 2019 12:08am Non-small cell carcinoma of right lung, stage 4 Malignant neoplasm of unspecified part of right bronchus or lung gabapentin 300 mg oral capsule (17 sources) Anti-epileptic Agent Start: 3 End: take 1 capsule by mouth once daily at bedtime as needed gabapentin (NEURONTIN) 300 mg capsule Indications: Thoracic spine tumor , Foot pain, bilateral Take 1 capsule by mouth daily at bedtime for 180 days. prn 30 capsule 5 02/25/2023 04/25/2025 Discontinued Start: 12-13-2018 End: 05-16-2019 take 1 capsule by mouth twice daily at mealtime Gabapentin 300 MG capsule Discontinued 300 mg PO TWICE DAILY WITH MEALS December 13, 2018 1:00am May 16, 2019 1:58pm PAIN Comment on above: Take 1 capsule by mo uth daily at bedtime for 180 days. prn hydroCHLOROthiazide 12.5 mg oral capsule (6 sources) Thiazide Diuretic Start: 2020 End: 2022 take 1 capsule by mouth once daily hydroCHLOROthiazide 12.5 mg capsule Indications: Essential hypertension Take 1 capsule by mouth once daily. 90 capsule 3 03/21/2021 02/25/2023 Discontinued Start: 12-29-2018 End: 05-30-2025 take 1 tablet by mouth once daily Hydrochlorothiazide 12.5 MG tablet Discontinued 12.5 mg PO DAILY December 29, 2018 1:00am May 30, 2025 3:00pm WATER PILL Comment on above: Take 1 capsule by [facility] once daily. hydrOXYzine hydrochloride 10 mg oral tablet (5 sources) Antihistamine Start: 02-23-20 End: 03-14-20 take 1 tablet by mouth three times daily as needed Hydroxyzine Hcl 10 MG tablet Discontinued 10 mg PO 3 TIMES DAILY NEEDED as needed for Itching 30 10 February 22, 2019 12:00am March 13, 2019 12:00am March 14, 2019 12:10am Rash Rash and other nonspecific skin eruption levothyroxine sodium 0.05 mg oral tablet (5 sources) l-Thyroxine Start: 08-11-20 End: 05-30-20 take 1 tablet by mouth once daily Levothyroxine 50 MCG tablet Discontinued 50 ug PO DAILY August 11, 2018 12:00am May 30, 2025 3:01pm thyroid lidocaine 25 mg/ml / prilocaine 25 mg/ml topical cream (5 sources) Antiarrhythmic, Amide Local Anesthetic Start: 01-04-20 End: 04-04-20 Lidocaine-Prilocaine 30 GM Cream..G. Discontinued 1 APPLICATIO TP DAILY NEEDED as needed for Not Specified January 04, 2019 12:44pm April 03, 2019 12:00am April 04, 2019 12:07am Non-small cell carcinoma of right lung, stage 4 Malignant neoplasm of unspecified part of right bronchus or lung Start: 01-04-2019 End: 04-04-2019 Lidocaine-Prilocaine Discont inued 1 APPLICATIO TP DAILY NEEDED 12 15January 04, 2019 12:44pm April 04, 2019 12:07am LORazepam 1 mg oral tablet (5 sources) Benzodiazepine Start: 09-19-2019 End: 09-25-2019 take 2 tablets by mouth once daily as needed Lorazepam 1 MG tablet Discontinued 2 mg PO DAILY NEEDED as needed for Agitation 2 September 19, 2019 1:00am September 19, 2019 1:00am September 25, 2019 1:10am take 1-2 tabs before MRI Start: 09-19-2019 End: 09-25-2019 take 2 tablets by mouth once daily Lorazepam Discontinued 2 MG PO DAILY NEEDED 2 1 September 19, 2019 1:00am September 25, 2019 1:10am take 1-2 tabs before MRI Magic Mouth Wash (10 sources) Start: 01-06-2019 End: 01-10-2019 take 1 mL by mouth three times daily as needed for gastroesophageal reflux disease Magic Mouth Wash Discontinued 10 mL PO 3 TIMES DAILY NEEDED as needed for Heartburn Or Indigestion 300 30 0 January 06, 2019 10:15am February 04, 2019 12:00am January 10, 2019 12:11pm Pharmacist: Compound with equal parts DiphenhydrAMINE, Mylanta, and Lidocaine Viscous. Start: 01-06-2019 End: 01-10-2019 take 1 mL by mouth three times daily as needed Magic Mouth Wash Discontinued 10 ML PO 3 TIMES DAILY NEEDED 300 30 January 06, 2019 10:15am January 10, 2019 12:11pm Pharmacist: Compound with equal parts DiphenhydrAMINE, Mylanta, and Lidocaine Viscous. Start: 01-06-2019 End: 01-06-2019 take 1 mL by mouth three times daily as needed for gastroesophageal reflux disease Magic Mouth Wash Discontinued 10 mL PO 3 TIMES DAILY NEEDED as needed for Heartburn Or Indigestion 300 30 January 06, 2019 9:56am February 04, 2019 12:00am January 06, 2019 10:15am Pharmacist: Compound with equal parts DiphenhydrAMINE, Mylanta, and Lidocaine Viscous. Start: 01-06-2019 End: 01-06-2019 take 1 mL by mouth three times daily as needed Magic Mouth Wash Discontinued 10 ML PO 3 TIMES DAILY NEEDED 300 30 January 06, 2019 9:56am January 06, 2019 10:15am Pharmacist: Compound with equal parts DiphenhydrAMINE, Mylanta, and Lidocaine Viscous. magnesium citrate (1 source) End: 02-25-2023 MAGNESIUM CITRATE ORAL Take 296 mL by mouth as needed. 0 02/25/2023 Discontinued Comment on above: Take 296 mL by mouth as needed. magnesium oxide 400 mg oral tablet (20 sources) Start: 02-28-2019 End: 05-30-2025 take 1 tablet by mouth once daily Magnesium Oxide 400 MG tablet Discontinued 400 mg PO DAILY May 12, 2019 3:09pm June 15, 2019 9:39am supplement Comment on above: Take 1 tablet by maria teresa th once daily. meloxicam 7.5 mg oral tablet (7 sources) Nonsteroidal Anti-inflammatory Drug Start: 05-30-2025 End: 07-04-2025 take 1 tablet by mouth twice daily Meloxicam 7.5 mg tablet Discontinued 7.5 mg PO TWICE A DAY May 30, 2025 12:00am July 04, 2025 2:58pm Start: 05-23-2025 End: 06-13-2025 take 1 tablet by mouth once daily at mealtime meloxicam (MOBIC) 15 mg tablet Take 1 tablet by mouth once daily. With food. 30 tablet 1 05/23/2025 06/13/2025 Discontinued (Discontinued by Patient) Start: 05-08-2025 End: 05-23-2025 take 1 tablet by mouth every twelve hours meloxicam (MOBIC) 7.5 mg tablet Take 1 tablet by mouth every 12 hours. PER ORTHO 05/08/2025 05/23/2025 Discontinued Owdddgtnnifg-Jk-Pfzf-Mineral s 1 EACH tablet (2 sources) Start: 08-11-2018 End: 07-04-2025 take 1 tablet by mouth once daily Twdcrhzxcnkw-Ov-Vkio-Minerals 1 EACH tablet Discontinued 1 NMA PO DAILY August 11, 2018 12:00am July 04, 2025 3:02pm diet supplement Start: 08-11-2018 take 1 tablet by maria teresa once daily Miesemgcxext-Bc-Yfyt-Minerals 1 EACH tab let Active 1 NMA PO DAILY August 11, 2018 12:00am diet supplement nitrofurantoin 100 mg oral tablet (2 sources) Nitrofuran Antibacterial Start: 05-30-2025 End: 07-04-2025 take 1 capsule by mouth once daily at mealtime Nitrofurantoin 100 mg capsule Discontinued 100 mg PO .qd May 30, 2025 12:00am July 04, 2025 3:02pm must administer with a meal/food ondansetron 4 mg disintegrating oral tablet (15 sources) Serotonin-3 Receptor Antagonist Start: 11-23-2020 End: 05-30-2025 take 1 tablet by mouth every eight hours as needed for nausea Ondansetron 4 MG tablet Discontinued 4 mg PO EVERY 8 HOURS NEEDED as needed for Nausea November 23, 2020 1:00am May 30, 2025 3:01pm Start: 12-29-2018 End: 03-06-2019 take 1 tablet by mouth three times daily as needed for nausea Ondansetron Hcl (Zofran) 4 MG tablet Discontinued 4 mg PO 3 TIMES DAILY NEEDED as needed for Nausea 30 10 January 25, 2019 8:53am March 05, 2019 12:00am March 06, 2019 12:10am 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 Disseminated malignant neoplasm, unspecified Radiation sickness, unspecified, initial encounter take 1 tab po tid prn nausea oxybutynin chloride 5 mg oral tablet (19 sources) Cholinergic Muscarinic Antagonist Start: 03-21-2021 End: 04-25-2025 oxybutynin (DITROPAN) 5 mg tablet Indications: Urge incontinence 3 to 4 times a day 360 tablet 3 02/25/2023 04/25/2025 Discontinued (Discontinued by another Health Care Provider) Start: 01-06-2019 End: 05-30-2025 take 1 tablet by mouth three times daily Oxybutynin Chloride 5 MG tablet Discontinued 5 mg PO THREE TIMES A DAY 90 3 January 06, 2019 1:00am May 30, 2025 3:01pm Comment on above: 3 to 4 times a day oxyCODONE hydrochloride 5 mg oral tablet (5 sources) Opioid Agonist Start: End: take 1 tablet by mouth every four hours as needed for pain Oxycodone 5 MG tablet Discontinued 5 mg PO EVERY 4 HOURS NEEDED as needed for Pain December 09, 2018 1:00am December 20, 2019 12:29pm pantoprazole 40 mg delayed release oral tablet (10 sources) Proton Pump Inhibitor Start: End: take 1 tablet by mouth once daily Pantoprazole 40 MG tablet Discontinued 40 mg PO DAILY 30 30 April 14, 2019 1:02pm August 11, 2019 12:00am August 15, 2019 12:09am Gastroesophageal reflux disease Gastro-esophageal reflux disease without esophagitis GERD phenazopyridine hydrochloride 200 mg oral tablet (5 sources) Start: End: 11-28-2 019 take 1 tablet by mouth every eight hours Phenazopyridine 200 MG tablet Discontinued 200 mg PO Q8H 15 5 0 October 05, 2019 1:00am October 09, 2019 1:00am October 13, 2019 1:08am Dysuria Dysuria microencapsulated potassium chloride 20 meq extended release oral tablet (15 sources) Start: 021 End: 025 take 1 tablet by mouth once daily Potassium Chloride 20 mEq tablet,ER particles/crystals Discontinued 20 meq PO DAILY May 06, 2021 2:59pm May 30, 2025 3:01pm potassium Start: 05-12-2019 End: 05-06-2021 take 1 tablet by mouth twice daily Potassium Chloride 20 MEQ tablet Discontinued 20 meq PO TWICE A DAY May 12, 2019 3:09pm May 06, 2021 3:06pm potassium Start: 05-10-2019 End: 05-12-2019 take 1 tablet by mouth once daily Potassium Chloride 20 MEQ tablet Discontinued 20 meq PO DAILY 30 30 2 May 10, 2019 12:00am May 12, 2019 3:10pm Hypokalemia Hypokalemia sennosides, retirement 8.6 mg oral capsule (6 sources) Start: 05-06-2021 End: 07-04-2025 take 3 capsules by mouth twice daily Sennosides (Senna) 8.6 mg capsule Discontinued 25.8 mg PO TWICE A DAY May 06, 2021 12:00am July 04, 2025 3:02pm Start: 02-17-2019 End: 02-25-2023 take 3 tablets by mouth twice daily senna (SENNA) 8.6 mg tab Indications: Constipation, unspecified constipation type Take 3 tablets by mouth twice daily. 0 02/17/2019 02/25/2023 Discontinued Comment on above: Take 3 tablets by mo [facility] twice daily. simvastatin 20 mg oral tablet (5 sources) HMG-CoA Reductase Inhibitor Start: 8 End: 5 take 1 tablet by mouth at bedtime Simvastatin 20 MG tablet Discontinued 20 mg PO AT BEDTIME August 11, 2018 12:00am May 30, 2025 3:01pm high cholesterol THERAPEUTIC MULTIVITAMIN TAB (1 source) Start: 6 End: 3 THERAPEUTIC MULTIVITAMIN TAB Take one(1) tablet daily. 1 0 02/10/2006 02/25/2023 Discontinued Comment on above: Take one(1) tablet d aily. valACYclovir 1000 mg oral tablet (5 sources) Herpesvirus Nucleoside Analog DNA Polymerase Inhibitor, Herpes Simplex Virus Nucleoside Analog DNA Polymerase Inhibitor, Herpes Zoster Virus Nucleoside Analog DNA Polymerase Inhibitor Start: 0 End: 0 Valacyclovir 1 gram tablet Discontinued 1000 mg PO Q8H 21 7 0 January 03, 2020 1:00am January 09, 2020 1:00am January 10, 2020 1:08am Start: 01-03-2020 End: 01-10-2020 take 1000 mg by mouth every eight hours Valacyclovir Discontinued 1000 MG PO Q8H 7 January 03, 2020 1:00am January 10, 2020 1:08am Problems Active Problems Problem Classification Problem Date Documented Da te Episodic/Chronic Administrative/social admission (10 sources) Education and/or schooling finding; Translations: [Problems related to education and literacy, unspecified] Episodic Cancer of bronchus; lung (20 sources) Non-small cell lung cancer; Translations: [Malignant neoplasm of unspecified part of unspecified bronchus or lung] Onset: 12-04-2018 Chronic Comment on above: NSCLC-adenocarcinoma , PD-L1 with TPS 75%, KRAS G12C positive, stage IV(cT2 cN2 M1c) bone.Spinal metastases s/p fusion on 11/23/2018.S/P Radiation therapy to spine, finished on 01/04/2019.S/P Port placement, had 4 cycles of Carbo/Alimta/Keytruda and 1 cycle of Keytruda maintenance. Persistent Right large effusion s/p consolidation Radiation therapy to R hilar mass and 4 cycles of Carboplatin and Taxol which ended on 11/07/2019.PET/CT shows new activity in L lower lobe ? Pneumonitis, otherwise no evidence of malignancy, decreasing effusion.Comes for follow up.CT chest 05/26/2024 shows stable R pleural effusion with no evidence of progressive disease.No evidence of progressive disease. NSCLC-adenocarcinoma , PD-L1 with TPS 75%, KRAS G12C positive, stage IV(cT2 cN2 M1c) bone.Spinal metastases s/p fusion on 11/23/2018.S/P Radiation therapy to spine, finished on 01/04/2019.S/P Port placement, had 4 cycles of Carbo/Alimta/Keytruda and 1 cycle of Keytruda maintenance. Persistent Right large effusion s/p consolidation Radiation therapy to R hilar mass and 4 cycles of Carboplatin and Taxol which ended on 11/07/2019.PET/CT shows new activity in L lower lobe ? Pneumonitis, otherwise no evidence of malignancy, decreasing effusion.CT chest 05/26/2024 shows stable R pleural effusion with no evidence of progressive disease.Comes for follow up. CT report on 05/10/2025 at [facility] reviewed.No evidence of progressive disease. Chronic obstructive pulmonary disease and bronchiectasis (20 sources) Simple chronic bronchitis; Translations: [Simple chronic bronchitis] Onset: 01-27-2009 Resolved: 12-27-2016 Chronic Congestive heart failure; nonhypertensive (1 source) Heart failure, unspecified; Translations: [Heart failure, unspecified] Onset: 09-28-2025 Chronic Deficiency and other anemia (3 sources) Anemia, unspecified; Translations: [Anemia, unspecified] Episodic Diabetes mellitus with complications (20 sources) Hyperlipidemia; Translations: [Type 2 diabetes mellitus with other specified complication] Onset: 02-25-2023 02-25-2023 Chronic Diabetes mellitus without complication (20 sources) Diabetes mellitus; Translations: [Type 2 diabetes mellitus without complications] Onset: 09-11-2017 Chronic Disorders of lipid metabolism (20 sources) Mixed hyperlipidemia; Translations: [Mixed hyperlipidemia] Onset: 09-21-2015 Chronic Essential hypertension (20 sources) Hypertensive disorder; Translations: [Essential (primary) hypertension] Onset: 09-21-2015 Chronic Genitourinary symptoms and ill-defined conditions (20 sources) Urge incontinence of urine; Translations: [Urge incontinence] Onset: 09-29-2017 Chronic Maintenance chemotherapy; radiotherapy (10 sources) Patient encounter status; Translations: [Encounter for antineoplastic chemotherapy] Chronic Malignant neoplasm without specification of site (20 sources) Widespread metastatic malignant neoplastic disease; Translations: [Disseminated malignant neoplasm, unspecified] Onset: 12-29-2018 02-25-2023 Chronic Nutritional deficiencies (20 sources) Vitamin D deficiency; Translations: [Vitamin D deficiency, unspecified] Onset: 06-29-2009 06-29-2009 Chronic Osteoarthritis (20 sources) Primary coxarthrosis, bilateral; Translations: [Bilateral primary osteoarthritis of hip] Onset: 12-04-2018 02-25-2023 Chronic Other aftercare (7 sources) Follow-up status; Translations: [Encounter for follow-up examination after completed treatment for conditions other than malignant neoplasm] 06-12-2020 Episodic Other aftercare (3 sources) Encounter for follow-up examination after completed treatment for conditions other than malignant neoplasm; Translations: [Follow-up examination, following chemotherapy] Episodic Other aftercare (1 source) Encounter for adjustment and management of vascular access device; Translations: [Encounter for adjustment and management of vascular access device] Onset: 08-22-2025 Episodic Other connective tissue disease (1 source) Pain in both feet; Translations: [Pain in right foot] Episodic Other connective tissue disease (4 sources) Pain of bilateral hands; Translations: [Pain in right hand] 04-25-2025 Episodic Other connective tissue disease (1 source) Pain in right hand; Translations: [Bilateral hand pain] Onset: 06-13-2025 Episodic Other connective tissue disease (1 source) Pain in left hand; Translations: [Bilateral hand pain] Onset: 06-13-2025 Episodic Other diseases of bladder and urethra (20 sources) Overactive bladder; Translations: [Overactive bladder] Onset: 12-04-2018 02-25-2023 Chronic Other gastrointestinal disorders (3 sources) Constipation, unspecified; Translations: [Constipation, unspecified] Episodic Other gastrointestinal disorders (4 sources) Finding of abdominopelvic segment of trunk; Translations: [Intra-abdominal and pelvic swelling, mass and lump, unspecified site] 02-17-2024 Episodic Other gastrointestinal disorders (1 source) Swollen abdomen; Translations: [Intra-abdominal and pelvic swelling, mass and lump, unspecified site] 02-17-2024 Episodic Other injuries and conditions due to external causes (1 source) Other injury of unspecified body region, initial encounter; Translations: [Wound of skin] Onset: 08-09-2025 Episodic Other liver diseases (20 sources) Steatosis of liver; Translations: [Fatty (change of) liver, not elsewhere classified] Onset: 09-27-2010 09-27-2010 Chronic Other lower respiratory disease (1 source) Other disorders of lung; Translations: [Pneumonia, organism unspecified] 02-10-2024 Episodic Other lower respiratory disease (1 source) Hypoxemia; Translations: [Hypoxemia] Onset: 09-28-2025 Episodic Other nervous system disorders (20 sources) Pain due to neoplastic disease; Translations: [Neoplasm related pain (acute) (chronic)] Onset: 12-04-2018 02-25-2023 Chronic Other nervous system disorders (1 source) Neoplasm related pain (acute) (chronic); Translations: [Neoplasm related pain (acute) (chronic)] Onset: 02-25-2023 Chronic Other nutritional; endocrine; and metabolic disorders (20 sources) Morbid obesity; Translations: [Morbid (severe) obesity due to excess calories] Onset: 12-04-2018 02-25-2023 Chronic Other nutritional; endocrine; and metabolic disorders (20 sources) Hypomagnesemia; Translations: [Hypomagnesemia] Onset: 02-25-2023 02-25-2023 Chronic Other nutritional; endocrine; and metabolic disorders (4 sources) Hypomagnesemia; Translations: [Disorders of magnesium metabolism] Onset: 02-25-2023 Chronic Other nutritional; endocrine; and metabolic disorders (20 sources) Body mass index 40+ - severely obese; Translations: [Morbid (severe) obesity due to excess calories] Onset: 03-19-2018 03-19-2018 Chronic Other nutritional; endocrine; and metabolic disorders (4 sources) Obesity caused by energy imbalance; Translations: [Morbid (severe) obesity due to excess calories] 04-25-2019 Chronic Other nutritional; endocrine; and metabolic disorders (5 sources) Weight decreased; Translations: [Abnormal weight loss] 04-25-2025 Episodic Other screening for suspected conditions (not mental disorders or infectious disease) (3 sources) CT of chest abnormal; Translations: [Abnormal findings on diagnostic imaging of other specified body structures] 03-08-2024 Chronic Other skin disorders (3 sources) Rash and other nonspecific skin eruption; Translations: [Rash and other nonspecific skin eruption] Episodic Peripheral and visceral atherosclerosis (1 source) Peripheral vascular disease; Translations: [Peripheral vascular disease, unspecified] Chronic Residual codes; unclassified (1 source) Swelling; Translations: [Edema, unspecified] 02-17-2024 Episodic Respiratory failure; insufficiency; arrest (adult) (20 sources) Dependence on supplemental oxygen; Translations: [Dependence on supplemental oxygen] Onset: 12-04-2018 02-25-2023 Chronic Screening and history of mental health and substance abuse codes (20 sources) Personal history of nicotine dependence; Translations: [Personal history of tobacco use] Onset: 12-04-2018 02-25-2023 Episodic Spondylosis; intervertebral disc disorders; other back problems (20 sources) Displacement of lumbar intervertebral disc without myelopathy; Translations: [Other intervertebral disc displacement, lumbar region] 10-26-2006 Chronic Substance-related disorders (20 sources) Tobacco user; Translations: [Nicotine dependence, unspecified, uncomplicated] Onset: 06-10-2006 06-10-2006 Chronic Thyroid disorders (20 sources) Hypothyroidism; Translations: [Hypothyroidism, unspecified] Onset: 12-27-2016 Chronic Urinary tract infections (20 sources) Urinary tract infectious disease; Translations: [Urinary tract infection, site not specified] Onset: 12-04-2018 02-25-2023 Episodic Past or Other Problems Problem Classification Problem Date Documented Da te Episodic/Chronic Abdominal pain (20 sources) Epigastric pain; Translations: [Epigastric pain] Onset: 11-10-2018 Episodic Acute and unspecified renal failure (20 sources) Acute renal failure syndrome; Translations: [Acute kidney failure, unspecified] Onset: 12-04-2018 02-25-2023 Episodic Acute posthemorrhagic anemia (20 sources) Acute posthemorrhagic anemia; Translations: [Acute posthemorrhagic anemia] Onset: 12-04-2018 02-25-2023 Episodic Bacterial infection; unspecified site (20 sources) Bacterial infection due to Klebsiella pneumoniae; Translations: [Klebsiella pneumoniae [K. pneumoniae] as the cause of diseases classified elsewhere] Onset: 12-04-2018 02-25-2023 Episodic Cancer of bronchus; lung (4 sources) History of malignant neoplasm of thoracic cavity structure; Translations: [Personal history of other malignant neoplasm of bronchus and lung] Onset: 04-07-2025 03-08-2024 Episodic Complication of device; implant or graft (20 sources) Infection AND/OR inflammatory reaction due to internal prosthetic device, implant AND/OR graft; Translations: [Infection and inflammatory reaction due to indwelling urethral catheter, initial encounter] Onset: 12-04-2018 02-25-2023 Episodic Deficiency and other anemia (20 sources) Anemia; Translations: [Anemia, unspecified] Onset: 02-25-2023 02-25-2023 Episodic Diabetes mellitus without complication (20 sources) Abnormal glucose level; Translations: [Other abnormal glucose] Onset: 06-04-2016 Resolved: 12-27-2016 02-25-2023 Episodic E Codes: Natural/environment (16 sources) Cat bite - wound; Translations: [Bitten by cat, initial encounter] Onset: 01-23-2010 Resolved: 12-27-2016 12-27-2016 Episodic E Codes: Unspecified (20 sources) Complication of health care; Translations: [Nosocomial condition] Onset: 12-04-2018 02-25-2023 Episodic Fluid and electrolyte disorders (20 sources) Hypokalemia; Translations: [Hypokalemia] Onset: 02-25-2023 Episodic Genitourinary symptoms and ill-defined conditions (20 sources) Dysuria; Translations: [Dysuria] Onset: 05-13-2018 Episodic Lymphadenitis (20 sources) Localized enlarged lymph nodes; Translations: [Localized enlarged lymph nodes] Onset: 12-04-2018 02-25-2023 Episodic Neoplasms of unspecified nature or uncertain behavior (20 sources) Neoplastic disease; Translations: [Neoplasm of unspecified behavior of bone, soft tissue, and skin] Onset: 12-24-2018 Episodic Other aftercare (20 sources) Long-term current use of oral hypoglycemic medication; Translations: [salvage determiner (current) use of oral hypoglycemic drugs] Onset: 12-04-2018 02-25-2023 Episodic Other and unspecified benign neoplasm (20 sources) Benign neoplasm of colon; Translations: [Benign neoplasm of colon, unspecified] Onset: 12-14-2012 12-14-2012 Episodic Other and unspecified benign neoplasm (16 sources) History of polyp of colon; Translations: [Personal history of colonic polyps] Onset: 02-27-2016 Resolved: 12-27-2016 12-27-2016 Episodic Other and unspecified benign neoplasm (16 sources) Polyp of colon; Translations: [Polyp of colon] Onset: 03-27-2016 Resolved: 12-27-2016 12-27-2016 Episodic Other connective tissue disease (20 sources) Calcaneal spur; Translations: [Calcaneal spur, unspecified foot] Onset: 08-15-2009 08-15-2009 Episodic Other connective tissue disease (20 sources) H/O: arthrodesis; Translations: [Arthrodesis status] Onset: 12-15-2018 02-25-2023 Episodic Other connective tissue disease (16 sources) Plantar fasciitis; Translations: [Plantar fascial fibromatosis] Onset: 09-27-2010 Resolved: 12-27-2016 12-27-2016 Episodic Other fractures (20 sources) Compression fracture of thoracic spine; Translations: [Wedge compression fracture of unspecified thoracic vertebra, initial encounter for closed fracture] Onset: 12-24-2018 12-24-2018 Episodic Other gastrointestinal disorders (20 sources) Constipation; Translations: [Constipation, unspecified] Onset: 02-25-2023 Episodic Other gastrointestinal disorders (16 sources) Occult blood in stools; Translations: [Other fecal abnormalities] Onset: 10-12-2012 Resolved: 12-27-2016 12-27-2016 Episodic Other gastrointestinal disorders (1 source) Intra-abdominal and pelvic swelling, mass and lump, unspecified site; Translations: [Intra-abdominal and pelvic swelling, mass and lump, unspecified site] Onset: 05-04-2025 Episodic Other injuries and conditions due to external causes (20 sources) Radiation sickness; Translations: [Radiation sickness, unspecified, initial encounter] Onset: 12-29-2018 02-25-2023 Episodic Other liver diseases (16 sources) Large liver; Translations: [Hepatomegaly, not elsewhere classified] Onset: 08-26-2010 Resolved: 12-27-2016 12-27-2016 Episodic Other lower respiratory disease (20 sources) Lung mass; Translations: [Other nonspecific abnormal finding of lung field] Onset: 02-25-2023 02-25-2023 Episodic Other lower respiratory disease (20 sources) Hypoxia; Translations: [Hypoxemia] Onset: 02-25-2023 02-25-2023 Episodic Other lower respiratory disease (20 sources) Dyspnea; Translations: [Shortness of breath] Onset: 11-10-2018 02-25-2023 Episodic Other nutritional; endocrine; and metabolic disorders (16 sources) Metabolic syndrome X; Translations: [Metabolic syndrome] Onset: 06-04-2016 Resolved: 08-02-2018 08-02-2018 Chronic Other nutritional; endocrine; and metabolic disorders (1 source) Abnormal weight loss; Translations: [Weight loss] Onset: 05-23-2025 Episodic Other screening for suspected conditions (not mental disorders or infectious disease) (20 sources) Patient encounter status; Translations: [Encounter for screening, unspecified] Onset: 09-14-2015 Resolved: 12-27-2016 03-08-2024 Episodic Other skin disorders (20 sources) Eruption; Translations: [Rash and other nonspecific skin eruption] Onset: 02-25-2023 02-25-2023 Episodic Other skin disorders (20 sources) Atrophic condition of skin; Translations: [Atrophic disorder of skin, unspecified] Onset: 02-25-2023 02-25-2023 Episodic Comment on above: likely due to chroni c moisture, reviewed skin protectant regimen Pathological fracture (20 sources) Pathological fracture of vertebra due to neoplastic disease; Translations: [Pathological fracture in neoplastic disease, other specified site, initial encounter for fracture] Onset: 12-04-2018 02-25-2023 Episodic Pleurisy; pneumothorax; pulmonary collapse (20 sources) Pleural effusion; Translations: [Pleural effusion, not elsewhere classified] Onset: 12-04-2018 Episodic Comment on above: Stable. Pneumonia (except that caused by tuberculosis or sexually transmitted disease) (20 sources) Pneumonitis; Translations: [Pneumonia, unspecified organism] Onset: 12-04-2018 Episodic Residual codes; unclassified (20 sources) Edema of lower extremity; Translations: [Localized edema] Onset: 07-30-2009 07-30-2009 Episodic Residual codes; unclassified (20 sources) Not for resuscitation; Translations: [Do not resuscitate] Onset: 12-04-2018 02-25-2023 Episodic Residual codes; unclassified (16 sources) Edema; Translations: [Edema, unspecified] Onset: 06-29-2009 Resolved: 01-23-2010 01-23-2010 Episodic Residual codes; unclassified (1 source) Flushing; Translations: [Hot flashes] Onset: 04-07-2025 Episodic Spondylosis; intervertebral disc disorders; other back problems (20 sources) Backache; Translations: [Back pain of thoracolumbar region] Onset: 12-04-2018 02-25-2023 Episodic Unclassified (4 sources) L4-L5 decompression 06-05-2022 Comment on above: 1999 Unclassified (6 sources) port placement 06-05-2022 Comment on above: 12-30-18 Unclassified (2 sources) Finding of abdominopelvic segment of trunk 04-25-2025 Results Test Name Value Interpretation Reference Range Facility Basic Metabolic Profile (BMP )on 09-28-2025 BUN/CRE 20.5 RATIO High 10-[address] [facility] Comment on above: Performed By: #### L 503.0300, [id number], L503.0100 #### [facility] [address] [place], [address] Calcium [Mass/Vol] 8.6 mg/dL Normal 7.6-11.0 [facility] Comment on above: Performed By: #### L 503.0300, [id number], L503.0100 #### [facility] [address] [place], [address] Chloride [Moles/Vol] 103 mmol/L Normal 98-108 [facility] Comment on above: Performed By: #### L 503.0300, [id number], [id number] #### [facility] [address] [place], [address] CO2 [Moles/Vol] 31.3 mmol/L Normal 21.0-32.[address] [facility] Comment on above: Performed By: #### L 503.0300, [id number], [id number] #### [facility] [address] [place], [address] Creatinine [Mass/Vol] 0.84 mg/dL Normal 0.70-1.20 [facility] Comment on above: Performed By: #### L 503.0300, [id number], [id number] #### [facility] [address] [place], [address] ECRCL 54.68 ml/min Normal 50-[address] [facility] Comment on above: Performed By: #### L 503.0300, [id number], [id number] #### [facility] [address] [place], [address] GAP 7 Normal 5-[address] [facility] Comment on above: Performed By: #### L 503.0300, [id number], [id number] #### [facility] [address] [place], [address] GFR/1.73 sq M.predicted among non-blacks MDRD (S/P/Bld) [Vol rate/Area] 70 mL/min/{1.73_m2} Normal >[address] [facility] Comment on above: Result Comment: mL/m in/1.73m2 CKD-EPI Creatinine Equation (2020) Performed By: #### L 503.0300, [id number], [id number] #### [facility] [address] [place], [address] Glucose [Mass/Vol] 108 mg/dL High 70-99 [facility] Comment on above: Performed By: #### L 503.0300, [id number], [id number] #### [facility] [address] [place], [address] Potassium [Moles/Vol] 3.8 mmol/L Normal 3.3-5.1 [facility] Comment on above: Performed By: #### L 503.0300, [id number], [id number] #### [facility] [address] [place], [address] Sodium [Moles/Vol] 142 mmol/L Normal 133-145 [facility] Comment on above: Performed By: #### L 503.0300, [id number], [id number] #### [facility] [address] [place], [address] Urea nitrogen [Mass/Vol] 17 mg/dL Normal 4-[address] [facility] Comment on above: Performed By: #### L 503.0300, [id number], [id number] #### [facility] [address] [place], [address] CBC W/Diff, Automatedon 11-1 -2024 Absolute Lymph 0.42 X10 3/uL Low 0.83-4.[address] [facility] Comment on above: Performed By: #### L 503.0300, [id number], [id number] #### [facility] [address] [place], [address] Absolute Neut 3.8 X10 3/uL Normal 2.0-7.[address] [facility] Comment on above: Performed By: #### L 503.0300, [id number], [id number] #### [facility] [address] [place], [address] Basophils/100 WBC (Bld) 0.6 % Normal 0-[address] [facility] Comment on above: Performed By: #### L 503.0300, [id number], [id number] #### [facility] [address] [place], [address] Eosinophils/100 WBC (Bld) 2.8 % Normal 0-[address] [facility] Comment on above: Performed By: #### L 503.0300, [id number], [id number] #### [facility] [address] [place], [address] Erythrocyte distribution width (RBC) [Ratio] 15.3 % High 11.6-14.[address] [facility] Comment on above: Performed By: #### L 503.0300, [id number], [id number] #### [facility] [address] [place], [address] Hematocrit (Bld) [Volume fraction] 42.8 % Normal 37-[address] [facility] Comment on above: Performed By: #### L 503.0300, [id number], [id number] #### [facility] [address] [place], [address] Hemoglobin (Bld) [Mass/Vol] 12.5 g/dL Normal 12.0-15.[address] [facility] Comment on above: Performed By: #### L 503.0300, [id number], [id number] #### [facility] [address] [place], [address] IG% 0.400 Normal 0.0-0.[address] [facility] Comment on above: Result Comment: IG% - Immature Granulocytes (promyelocytes, myelocytes and metamyelocytes) > 1% indicates that a LEFT SHIFT is Present. Performed By: #### L 503.0300, [id number], [id number] #### [facility] [address] [place], [address] Lymphocytes/100 WBC (Bld) 8.9 % Low 19-[address] [facility] Comment on above: Performed By: #### L 503.0300, [id number], [id number] #### [facility] [address] [place], [address] MCH (RBC) [Entitic mass] 29.2 pg Normal 27.0-32.[address] [facility] Comment on above: Performed By: #### L 503.0300, [id number], [id number] #### [facility] [address] [place] [place], [address] MCHC (RBC) [Mass/Vol] 29.2 g/dL Low 32-36 [facility] Comment on above: Performed By: #### L 503.0300, L504.0250, L503.0100 #### [facility] [address] [place], [address] MCV (RBC) [Entitic vol] 100.0 fL High 81-[address] [facility] Comment on above: Performed By: #### L 503.0300, L504.0250, L503.0100 #### [facility] [address] [place], [address] Monocytes/100 WBC (Bld) 7.8 % Normal 0-[address] [facility] Comment on above: Performed By: #### L 503.0300, L504.0250, L503.0100 #### [facility] [address] [place], [address] Neutrophils/100 WBC (Bld) 79.5 % High 47-[address] [facility] Comment on above: Performed By: #### L 503.0300, L504.0250, L503.0100 #### [facility] [address] [place], [address] Nucleated RBC (Bld) [#/Vol] 0 10*3/uL Normal 0-[address] [facility] Comment on above: Performed By: #### L 503.0300, L504.0250, L503.0100 #### [facility] [address] [place], [address] Platelet mean volume (Bld) [Entitic vol] 11.3 fL Normal 6.2-12.[address] [facility] Comment on above: Performed By: #### L 503.0300, L504.0250, L503.0100 #### [facility] [address] [place], [address] Platelets (Bld) [#/Vol] 159 10*3/uL Normal 150-[address] [facility] Comment on above: Performed By: #### L 503.0300, L504.0250, L503.0100 #### [facility] [address] [place], [address] RBC (Bld) [#/Vol] 4.28 10*6/uL Normal 4.2-5.4 [facility] Comment on above: Performed By: #### L 503.0300, L504.0250, L503.0100 #### [facility] [address] [place], [address] RDW SD 55.8 fl High 35.1-43.[address] [facility] Comment on above: Performed By: #### L 503.0300, L504.0250, L503.0100 #### [facility] [address] [place], [address] WBC (Bld) [#/Vol] 4.7 10*3/uL Normal 4.4-11.0 [facility] Comment on above: Performed By: #### L 503.0300, L504.0250, L503.0100 #### [facility] [address] [place], [address] Discharge Instructionon 09-16 Discharge Instruction [facility] Medical Records Department [address] [place] [address] Instructions for Home/Discharge Instructions 09/28/25 1334 MR#: [id number] Acct: [id number] Name: TRISH HUNT Rep #: [id number] : 1945 80 From: Alexandro Mathews MD PCP: Dr. Emil Braswell MD Status:ADM IN Discharge Instructions DC O2, CPAP, BIPAP needs Home O2 Discharge instructions: No Dressing / Incision Discharge Activity: Return to Normal Activity Dressing / Incision Call your doctor if you observe: Fever of 101 or Higher, Shortness of breath, Dizziness, Fainting spells, Swelling in the ankles, Chest pain and Increased palpitations (irregular heartbeat) Follow Up Care Test Results: Test results from this visit will be discussed in further detail at your follow-up appointment, if applicable. Discharge Plan Admission Admit Date/Time: 09/27/25 12:46 Attending Provider: Alexandro Mathews Primary Care Provider: Emil Braswell Discharge Orders/Prescriptions Prescriptions: New cefdinir 300 mg capsule 300 mg PO BID 2 Days Qty: 4 0RF Continued ibuprofen 800 mg tablet 800 mg PO Q8H Referrals / Follow Up: Dejon Mcclendon DO [Med Staff - Active Staff, Pulmonary Medicine] - Within 2 Weeks Referral Note: Needs PFTs Emil Braswell MD [Primary Care Provider, Medical] - Within 1 Week Disposition Disposition (needs filled in before D/C Order can be placed): Home, Self Care 09/28/25 1338 Alexandro Mathews MD CC: Dr. Emil Braswell MD Signed Normal [facility] Urine Cultureon 09-28-2025 URC Identification and sensitivity to follow. 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 Comment on above: Performed By: #### L 503.0300, L504.0250, L503.0100 #### [facility] [address] [place], [address] Basic Metabolic Profile (BMP )on 09-27-2025 BUN/CRE 27.4 RATIO High 10-[address] [facility] Comment on above: Performed By: #### L 501.5200, L503.7505, L501.4021, L500.2500, L100.0100, L501.9520 #### [facility] [address] [place], [address] Calcium [Mass/Vol] 9.0 mg/dL Normal 7.6-11.0 [facility] Comment on above: Performed By: #### L 501.5200, L503.7505, L501.4021, L500.2500, L100.0100, L501.9520 #### [facility] [address] [place], [address] Chloride [Moles/Vol] 107 mmol/L Normal 98-108 [facility] Comment on above: Performed By: #### L 501.5200, L503.7505, L501.4021, L500.2500, L100.0100, L501.9520 #### [facility] [address] [place], [address] CO2 [Moles/Vol] 29.1 mmol/L Normal 21.0-32.[address] [facility] Comment on above: Performed By: #### L 501.5200, L503.7505, L501.4021, L500.2500, L100.0100, L501.9520 #### [facility] [address] [place], [address] Creatinine [Mass/Vol] 0.76 mg/dL Normal 0.70-1.20 [facility] Comment on above: Performed By: #### L 501.5200, L503.7505, L501.4021, L500.2500, L100.0100, L501.9520 #### [facility] [address] [place], [address] ECRCL 57.31 ml/min Normal 50-[address] [facility] Comment on above: Performed By: #### L 501.5200, L503.7505, L501.4021, L500.2500, L100.0100, L501.9520 #### [facility] [address] [place], [address] GAP 9 Normal 5-[address] [facility] Comment on above: Performed By: #### L 501.5200, L503.7505, L501.4021, L500.2500, L100.0100, L501.9520 #### [facility] [address] [place], [address] GFR/1.73 sq M.predicted among non-blacks MDRD (S/P/Bld) [Vol rate/Area] 78 mL/min/{1.73_m2} Normal >[address] [facility] Comment on above: Result Comment: mL/m in/1.73m2 CKD-EPI Creatinine Equation (2020) Performed By: #### L 501.5200, L503.7505, L501.4021, L500.2500, L100.0100, L501.9520 #### [facility] [address] [place], [address] Glucose [Mass/Vol] 86 mg/dL Normal 70-99 [facility] Comment on above: Performed By: #### L 501.5200, L503.7505, L501.4021, L500.2500, L100.0100, L501.9520 #### [facility] [address] [place], [address] Potassium [Moles/Vol] 3.9 mmol/L Normal 3.3-5.1 [facility] Comment on above: Performed By: #### L 501.5200, L503.7505, L501.4021, L500.2500, L100.0100, L501.9520 #### [facility] [address] [place], [address] Sodium [Moles/Vol] 145 mmol/L Normal 133-145 [facility] Comment on above: Performed By: #### L 501.5200, L503.7505, L501.4021, L500.2500, L100.0100, L501.9520 #### [facility] [address] [place], [address] Urea nitrogen [Mass/Vol] 21 mg/dL High 4-[address] [facility] Comment on above: Performed By: #### L 501.5200, L503.7505, L501.4021, L500.2500, L100.0100, L501.9520 #### [facility] [address] [place], [address] Body Fluid Cell Count+Diffon 09-27-2025 BFM 2ND SPEC SEE COMMENT Normal [facility] Comment on above: Order Comment: The r eference interval(s) and other method performancespecifications are unavailable for this body fluid.Comparison of the result with concentration in the blood,serum, or plasma is recommended. Performed By: #### L 503.0300, L504.0250, L503.0100 #### [facility] [address] [place], [address] PATH COMM/BF May follow Normal [facility] Comment on above: Order Comment: The r eference interval(s) and other method performancespecifications are unavailable for this body fluid.Comparison of the result with concentration in the blood,serum, or plasma is recommended. Performed By: #### L 503.0300, L504.0250, L503.0100 #### [facility] [address] [place], [address] CBC W/Diff, Automatedon 11-11 17-2024 Absolute Lymph 0.54 X10 3/uL Low 0.83-4.[address] [facility] Comment on above: Performed By: #### L 501.5200, L503.7505, L501.4021, L500.2500, L100.0100, L501.9520 #### [facility] [address] [place], [address] Absolute Neut 3.3 X10 3/uL Normal 2.0-7.[address] [facility] Comment on above: Performed By: #### L 501.5200, L503.7505, L501.4021, L500.2500, L100.0100, L501.9520 #### [facility] [address] [place], [address] Basophils/100 WBC (Bld) 0.9 % Normal 0-[address] [facility] Comment on above: Performed By: #### L 501.5200, L503.7505, L501.4021, L500.2500, L100.0100, L501.9520 #### [facility] [address] [place], [address] Eosinophils/100 WBC (Bld) 2.5 % Normal 0-[address] [facility] Comment on above: Performed By: #### L 501.5200, L503.7505, L501.4021, L500.2500, L100.0100, L501.9520 #### [facility] [address] [place], [address] Erythrocyte distribution width (RBC) [Ratio] 15.5 % High 11.6-14.[address] [facility] Comment on above: Performed By: #### L 501.5200, L503.7505, L501.4021, L500.2500, L100.0100, L501.9520 #### [facility] [address] [place], [address] Hematocrit (Bld) [Volume fraction] 44.1 % Normal 37-[address] [facility] Comment on above: Performed By: #### L 501.5200, L503.7505, L501.4021, L500.2500, L100.0100, L501.9520 #### [facility] [address] [place], [address] Hemoglobin (Bld) [Mass/Vol] 13.6 g/dL Normal 12.0-15.[address] [facility] Comment on above: Performed By: #### L 501.5200, L503.7505, L501.4021, L500.2500, L100.0100, L501.9520 #### [facility] [address] [place], [address] IG% 0.500 Normal 0.0-0.[address] [facility] Comment on above: Result Comment: IG% - Immature Granulocytes (promyelocytes, myelocytes and metamyelocytes) > 1% indicates that a LEFT SHIFT is Present. Performed By: #### L 501.5200, L503.7505, L501.4021, L500.2500, L100.0100, L501.9520 #### [facility] [address] [place], [address] Lymphocytes/100 WBC (Bld) 12.4 % Low 19-[address] [facility] Comment on above: Performed By: #### L 501.5200, L503.7505, L501.4021, L500.2500, L100.0100, L501.9520 #### [facility] [address] [place], [address] MCH (RBC) [Entitic mass] 29.9 pg Normal 27.0-32.[address] [facility] Comment on above: Performed By: #### L 501.5200, L503.7505, L501.4021, L500.2500, L100.0100, L501.9520 #### [facility] [address] [place], [address] MCHC (RBC) [Mass/Vol] 30.8 g/dL Low 32-36 [facility] Comment on above: Performed By: #### L 501.5200, L503.7505, L501.4021, L500.2500, L100.0100, L501.9520 #### [facility] [address] [place], [address] MCV (RBC) [Entitic vol] 96.9 fL Normal 81-[address] [facility] Comment on above: Performed By: #### L 501.5200, L503.7505, L501.4021, L500.2500, L100.0100, L501.9520 #### [facility] [address] [place], [address] Monocytes/100 WBC (Bld) 7.1 % Normal 0-[address] [facility] Comment on above: Performed By: #### L 501.5200, L503.7505, L501.4021, L500.2500, L100.0100, L501.9520 #### [facility] [address] [place], [address] Neutrophils/100 WBC (Bld) 76.6 % High 47-[address] [facility] Comment on above: Performed By: #### L 501.5200, L503.7505, L501.4021, L500.2500, L100.0100, L501.9520 #### [facility] [address] [place], [address] Nucleated RBC (Bld) [#/Vol] 0 10*3/uL Normal 0-[address] [facility] Comment on above: Performed By: #### L 501.5200, L503.7505, L501.4021, L500.2500, L100.0100, L501.9520 #### [facility] [address] [place], [address] Platelet mean volume (Bld) [Entitic vol] 10.5 fL Normal 6.2-12.[address] [facility] Comment on above: Performed By: #### L 501.5200, L503.7505, L501.4021, L500.2500, L100.0100, L501.9520 #### [facility] [address] [place], [address] Platelets (Bld) [#/Vol] 144 10*3/uL Low 150-[address] [facility] Comment on above: Performed By: #### L 501.5200, L503.7505, L501.4021, L500.2500, L100.0100, L501.9520 #### [facility] [address] [place], [address] RBC (Bld) [#/Vol] 4.55 10*6/uL Normal 4.2-5.4 [facility] Comment on above: Performed By: #### L 501.5200, L503.7505, L501.4021, L500.2500, L100.0100, L501.9520 #### [facility] [address] [place], [address] RDW SD 54.9 fl High 35.1-43.[address] [facility] Comment on above: Performed By: #### L 501.5200, L503.7505, L501.4021, L500.2500, L100.0100, L501.9520 #### [facility] [address] [place], [address] WBC (Bld) [#/Vol] 4.4 10*3/uL Normal 4.4-11.0 [facility] Comment on above: Performed By: #### L 501.5200, L503.7505, L501.4021, L500.2500, L100.0100, L501.9520 #### [facility] [address] [place], [address] CTA Chest W/WO Contraston CTA Chest W/WO Contrast [facility] Imaging Services [address] [place] [address] CTA Chest W/WO Contrast MR#: [id number] Acct: [id number] Name: TRISH HUNT Rep #: [id number] : 1945 F 80 From: Sixto yañez MD PCP: Dr. Emil Braswell MD Status: REG ER Study: CTA Chest W/WO Contrast Date of Exam: 09/27/25 Exam# [id number] Ordering Dr: Rosa Richardson DO PROCEDURE: CTA CHEST W/WO CONTRAST 09/27/2025 REASON FOR EXAM: SOB, HIGH RISK PE Stage IV lung cancer. Lower extremity swelling. TECHNIQUE: Procedure Code: CTCTACHWW Modality: CT Procedure: CTA CHEST W/WO CONTRAST Multiplanar Sagittal and Coronal images were obtained. 3D post processing was performed CONTRAST: Isovue 370 VOLUME: 100 mL One or more dose reduction techniques were used (e.g., Automated exposure control, adjustment of the mA and/or kV according to patient size, use of iterative reconstruction technique). RADIATION DOSE SUMMARY: CTDlvol: 12.5 mGy DLP: 477.13 mGycm COMPARISON: May 26, 2024. FINDINGS: Hardware: A right-sided port a catheter is seen with the tip in the superior vena cava. Lymph nodes: No significant lymphadenopathy is seen. Heart: The heart is nonenlarged. Coronary artery calcification. Thoracic Aorta: No thoracic aortic aneurysm or dissection. Atherosclerotic calcific plaques. Pulmonary Vessels: The pulmonary vessels are well opacified. No intraluminal filling defect is seen. Lungs and Airways: Moderate-sized right pleural effusion. Small left pleural effusion. 1.3 cm spiculated nodule in the anterior medial aspect of the right upper lobe. This is unchanged. The patient is status post resection of the right middle lobe. Pleura: Bilateral pleural effusions right greater than left. Upper Abdomen: Unremarkable Bones: Burst fracture of the T10 vertebrae with the prior intrapedicular screw and jovany fixation. CT/CTA Chest W/WO Contrast IMPRESSION: No evidence of pulmonary embolism. Moderate right pleural effusion with basilar atelectasis. This is essentially unchanged. Reading Location: [place] [address] CC: Dr. Rosa Richardson DO; Dr. 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 Chest Insp/Exp 2 Viewon 09-16 Chest Insp/Exp 2 View [facility] Imaging Services [address] [place] [address] Chest Insp/Exp 2 View MR#: [id number] Acct: [id number] Name: TRISH HUNT Rep #: [id number] : 1945 F 80 From: Sixto yañez MD PCP: Dr. Emil Braswell MD Status: ADM IN Study: Chest Insp/Exp 2 View Date of Exam: 09/27/25 Exam# [id number] Ordering Dr: Sixto Bess PROCEDURE: CHEST INSP/EXP 2 VIEW 09/27/2025 REASON FOR EXAM: POST THORACENTESIS TECHNIQUE: Procedure Code: RADCXRINSPEXP Modality: DX Procedure: CHEST INSP/EXP 2 VIEW AP inspiration expiration views were obtained following a right thoracentesis. COMPARISON: Prior CT scan of the chest dated September 27, 2025. FINDINGS: No evidence of pneumothorax following the right thoracentesis. RAD/Chest Insp/Exp 2 View IMPRESSION: No evidence of right-sided pneumothorax following the thoracentesis. Reading Location: [facility] CC: Dr. Sixto Bess MD; Dr. 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 Echo Complete W/ Contraston 09-27-2025 Echo Complete W/ Contrast [facility] [place] [address] Echo Complete W/ Contrast 09/28/25 0830 MR#: [id number] Acct: [id number] Name: TRISH HUNT Rep #: [id number] : 1945 80 From: Mayco Marc MD Attending Dr: Dr. Alexandro Mathews MD Status : ADM IN Ordering Dr: Alexandro Mathews MD Date: 09/27/25 Location: U Sex: F C Admitted: 09/27/25 Reason For Study Reason For Study: CHF Procedure This was a 2D Doppler, Color Flow transthoracic echocardiogram. The study was technically difficult. The study was technically limited. Limited views were obtained. Contrast injection was performed. Exam performed portable in patient room. Left Ventricle Normal LV size. The estimated ejection fraction is 75 %. Diastolic function is indeterminate. No regional wall motion abnormalities noted. Right Ventricle Normal RV size. Normal systolic function. Atria The left and right atria are normal. No doppler evidence for ASD. Mitral Valve There is no mitral valve stenosis. No mitral valve insufficiency. Tricuspid Valve There is no tricuspid stenosis. Unable to estimate RV systolic pressure due to insufficient tricuspid regurgitant envelope. Aortic Valve Trisinus/trileaflet aortic valve. There is no aortic stenosis. Trivial aortic valve insufficiency. Pulmonic Valve There is no pulmonic valvular stenosis. No pulmonic valve insufficiency. Great Vessels Normal sized aortic root. Pericardium/Pleural No pericardial effusion. Medication Diluted definity 2.0ml given slow IV push to enhance endocardial definition. MMode/2D Measurements Calculations LVIDd: 4.3 cm IVSd: 0.75 cm Ao root diam: 3.0 cm LVIDs: 2.4 cm LVPWd: 0.85 cm FS: 44.0 % LAV(MOD-bp): 52.0 ml LVAd ap4: 21.0 cm2 LVAd ap2: 16.4 cm2 LAV(MOD-bp) Indexed: 27.3 ml/m2 LVLd ap4: 6.5 cm LVLd ap2: 6.0 cm LAV(MOD-sp2): 47.5 ml EDV(MOD-sp4): 57.6 ml EDV(MOD-sp2): 37.0 ml LAV(MOD-sp4): 49.3 ml EDV(sp4-el): 58.0 ml EDV(sp2-el): 38.1 ml LVAs ap4: 10.6 cm2 LVAs ap2: 7.7 cm2 LVLs ap4: 5.2 cm LVLs ap2: 5.0 cm ESV(MOD-sp4): 18.6 ml ESV(MOD-sp2): 10.1 ml ESV(sp4-el): 18.2 ml ESV(sp2-el): 10.2 ml EF(MOD-sp4): 67.6 % EF(MOD-sp2): 72.6 % EF(sp4-el): 68.5 % SV(MOD-sp4): 39.0 ml SV(MOD-sp2): 26.8 ml SV(sp4-el): 39.7 ml SI(MOD-sp4): 20.4 ml/m2 SI(MOD-sp2): 14.1 ml/m2 LA A4 area: 17.6 cm2 LA dimension(2D): 3.6 cm TAPSE: 1.8 cm Time Measurements MV dec time: 0.20 sec Doppler Measurements Calculations MV E max ezequiel: 95.6 cm/sec Lat Peak E' Ezequiel: 6.1 cm/sec MV V2 max: 118.2 cm/sec MV A max ezequiel: 106.5 cm/sec E/E' lat: 15.6 MV max P.6 mmHg MV E/A: 0.90 MV V2 mean: 76.4 cm/sec MV mean P.6 mmHg MV V2 VTI: 28.1 cm MV P1/2t max ezequiel: 114.3 cm/sec Ao V2 max: 136.3 cm/sec LV V1 max: 39.5 cm/sec MV P1/2t: 52.5 msec Ao max P.4 mmHg LV V1 max P.62 mmHg MV dec slope: 638.0 cm/sec2 MVA(P1/2t): 4.2 cm2 PA V2 max: 107.5 cm/sec ECHO/Echo Complete W/ Contrast Interpretation Summary The estimated ejection fraction is 75 %. Trivial aortic valve insufficiency. Ordering Physician: Alexandro Mathews Referring Physician: Emil Braswell Performed By: Annita Bolanos, JITENDRACS, RVT 09/28/25 1258 Date Mayco Marc MD CC: Dr. Alexandro Mathews MD; Dr. 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 Emergency Department Summary on 09-27-2025 Emergency Department Summary [facility] Medical Records Department [address] [place] [address] Emergency Department Summary 09/27/25 MR#: [id number] Acct: [id number] Name: TRISH HUNT Rep #: [id number] : 1945 80 From: Rosa Richardson DO PCP: Dr. Emil Braswell MD Status:ADM IN Location: [address] History of Present Illness Chief Complaint: Edema Informant: patient and family Narrative Narrative: Patient is an 80-year-old female with history of stage IV lung cancer (currently in remission per patient), urinary tract infections, diabetes, hypertension and pleural effusions presenting with worsening leg swelling and shortness of breath. Symptoms been worsening over the past week and 1/2 to 2 weeks. Family finally convinced her to come in today. She denies a history of DVT or PE. Not on any anticoagulation. Denies any chest pain. Nuys any fever or chills. No URI symptoms. has a chronic runny nose which is unchanged. Denies any falls. Normally sleeps in a chair with no change in her sleeping. She follows with Dr. Gates who was her oncologist. She does report decreased urine output as well as decreased appetite. is not getting around her house as well. Does not wear oxygen at home. No other complaints or concerns reported at this time. Family notes that she has had required a thoracentesis in the past. [facility] Medical History Former smoker Urge incontinence Overactive bladder port placement Non-small cell carcinoma of right lung, stage 4 L4-L5 decompression Peripheral neuropathy GERD (gastroesophageal reflux disease) Mass of middle lobe of right lung Pleural effusion, right Disseminated malignancy Hypothyroidism Morbid (severe) obesity due to excess calories Hyperlipidemia associated with type 2 diabetes mellitus Back pain of thoracolumbar region Hypothyroidism Diabetes HTN (hypertension) Metastatic cancer Home Medications ???Medication ???Instructions ???Recorded ???Last Taken ???Type ibuprofen 800 mg tablet 800 mg PO Q8H 07/04/25 Unknown His tory Allergy/AdvReac Type Severity Reaction Status Date / Time phenazopyridine (From Allergy Nausea Verified 09/27/25 08:28 Pyridium) codeine AdvReac Severe Nausea/Vom/ Verified 09/27/25 08:28 Diarrhea hydrocodone (From Vicodin) AdvReac Severe Nausea/Vom/ Verified 09/27/25 08:28 Diarrhea morphine AdvReac Severe severe Verified 07/04/25 14:53 sedation lisinopril AdvReac Intermediate cough Verified 09/27/25 08:28 Sulfa (Sulfonamide AdvReac Intermediate Unknown Verified 07/04/25 14:53 Antibiotics) sulfamethoxazole (From AdvReac Intermediate Unknown Verified 09/27/25 08:28 Septra) trimethoprim (From Septra) AdvReac Intermediate Unknown Verified 09/27/25 08:28 Family History Father Heart problem Mother Lung cancer Sister Lung cancer Surgical History Hx of cholecystectomy Hx of hemorrhoidectomy History of tonsillectomy Social History housing: house Smoking Status: Former smoker ROS ROS ED Constitutional Constitutional ED: Denies chills or fever(s) Cardiovascular Cardiovascular: Denies chest pain or palpitations Respiratory/Chest Respiratory/Chest: Reports dyspnea on exertion; Denies cough or dyspnea Gastrointestinal Gastrointestinal: Denies abdominal pain, constipation, diarrhea, melena or vomiting Genitourinary Genitourinary ED: Denies dysuria or urinary frequency Musculoskeletal Musculoskeletal: Reports myalgias and other Details: reports leg pain from swelling, right worse than left. ; Denies arthralgias Integumentary Denies rash Neurologic Neurologic: Reports weakness; Denies paresthesias Hematologic/Lymphatic Hematologic/Lymphatic: Denies easy bleeding or easy bruising EXAM Physical Exam Const Vital Signs: 09/27/25 08:28 09/27/25 09:06 09/27/25 10:27 Temperature 98.7 F Temperature Source Oral Pulse Rate 81 86 Respiratory Rate 18 20 H Blood Pressure 155/66 H 129/61 H Blood Pressure Mean 95 83 Pulse Ox 88 100 Oxygen Delivery Method Room Air Room Air Nasal Cannula Oxygen Flow Rate (L/min) 2 09/27/25 11:00 09/27/25 12:00 09/27/25 12:27 Temperature 97.5 F L Temperature Source Pulse Rate 86 85 Respiratory Rate 10 L 17 Blood Pressure 127/46 H 137/57 H 124/52 H Blood Pressure Mean 73 83 76 Pulse Ox 100 100 Oxygen Delivery Method Nasal Cannula Oxygen Flow Rate (L/min) 2 Positive well nourished and well developed General Appearance ED: well developed and NAD HEENT Reports moist mucous membranes Eyes PERRL Neck supple (more content not included)... Normal [facility] Glucose, Body Fluidon 2024 GLUC, BODY FLD 85 mg/dL Normal Not Establ. [facility] Comment on above: Performed By: #### L 503.0300, L504.0250, L503.0100 #### [facility] Laboratory [address] [place], [address] H AND P Exam - Hospitaliston 09-27-2025 H&P Exam - Hospitalist [facility] Medical Records Department [address] [place] [address] H P Exam - Hospitalist 09/27/25 1250 MR#: [id number] Acct: [id number] Name: TRISH HUNT Rep #: [id number] : 1945 80 From: Alexandro Mathews MD PCP: Dr. Emil Braswell MD Status:ADM IN Location: [place] [address] HPI - General General Date of Admission: 09/27/25 HPI Narrative TRISH HUNT, is a 80 F who presents to the hospital with increasing shortness of breath and lower extremity edema. She does have a history of stage IV non-small cell lung cancer that she states is in remission, this was discovered in 2018 with a lesion in her T10 vertebral body that was leading possible cord compression she needed emergent surgery. Since that time she has undergone multiple treatment modalities, and so far has no progression of disease with a history of right pleural effusion. Today she is also demonstrating some shortness of breath as she was 87 to 88% on room air which is new for her. Given the moderate pleural effusion may benefit from a thoracentesis. In the meantime her proBNP was elevated to 4300 so there is concern for component of heart failure which would be new to her as well as recurrent UTI with a positive UA, she did receive a dose of Rocephin in the emergency room. [facility] Medical History Former smoker Urge incontinence Overactive bladder port placement Non-small cell carcinoma of right lung, stage 4 L4-L5 decompression Peripheral neuropathy GERD (gastroesophageal reflux disease) Mass of middle lobe of right lung Pleural effusion, right Disseminated malignancy Hypothyroidism Morbid (severe) obesity due to excess calories Hyperlipidemia associated with type 2 diabetes mellitus Back pain of thoracolumbar region Hypothyroidism Diabetes HTN (hypertension) Metastatic cancer Home Medications ???Medication ???Instructions ???Recorded ???Last Taken ???Type ibuprofen 800 mg tablet 800 mg PO Q8H 07/04/25 Unknown His tory Allergy/AdvReac Type Severity Reaction Status Date / Time phenazopyridine (From Allergy Nausea Verified 09/27/25 08:28 Pyridium) codeine AdvReac Severe Nausea/Vom/ Verified 09/27/25 08:28 Diarrhea hydrocodone (From Vicodin) AdvReac Severe Nausea/Vom/ Verified 09/27/25 08:28 Diarrhea morphine AdvReac Severe severe Verified 07/04/25 14:53 sedation lisinopril AdvReac Intermediate cough Verified 09/27/25 08:28 Sulfa (Sulfonamide AdvReac Intermediate Unknown Verified 07/04/25 14:53 Antibiotics) sulfamethoxazole (From AdvReac Intermediate Unknown Verified 09/27/25 08:28 Septra) trimethoprim (From Septra) AdvReac Intermediate Unknown Verified 09/27/25 08:28 Family History Father Heart problem Mother Lung cancer Sister Lung cancer Surgical History Hx of cholecystectomy Hx of hemorrhoidectomy History of tonsillectomy Social History housing: house Smoking Status: Former smoker ROS Constitutional Constitutional: Denies chills, fatigue, fever(s) or malaise Eyes Eyes: Denies blurry vision ENT HEENT: Denies headache(s) or nasal discharge Cardiovascular Cardiovascular: Reports edema; Denies chest pain, dyspnea on exertion or syncope Respiratory/Chest Respiratory/Chest: Reports shortness of breath with exertion; Denies cough or shortness of breath at rest Gastrointestinal Gastrointestinal: Denies constipation, diarrhea, nausea or vomiting Genitourinary Genitourinary: Denies dysuria Neurologic Neurologic: Denies focal weakness, numbness or tremor(s) Psychiatric Psychiatric: Denies anxiety or depression Vital Signs Vital Signs Vital Signs: 09/27/25 08:28 09/27/25 09:06 09/27/25 10:27 Temperature 98.7 F Temperature Source Oral Pulse Rate 81 86 Respiratory Rate 18 20 H Blood Pressure 155/66 H 129/61 H Blood Pressure Mean 95 83 Pulse Ox 88 100 Oxygen Delivery Method Room Air Room Air Nasal Cannula Oxygen Flow Rate (L/min) 2 09/27/25 11:00 09/27/25 12:00 09/27/25 12:27 Temperature 97.5 F L Temperature Source Pulse Rate 86 85 Respiratory Rate 10 L 17 Blood Pressure 127/46 H 137/57 H 124/52 H Blood Pressure Mean 73 83 76 Pulse Ox 100 100 Oxygen Delivery Method Nasal Cannula Oxygen Flow Rate (L/min) 2 Weight Weight: 195 lb 12.328 oz Body Mass Index (BMI) 34.7 Physical Exam Narrative General: Alert, Oriented x3, Cooperative, No apparent distress HEENT: Atraumatic, PERRLA, EOMI, Normocephalic Oral: Moist Mucosa Neck: Supple, No JVD Lungs: Diminished right greater than left, Normal air (more content not included)... Normal [facility] L501.4021on 09-27-2025 Trop T High Sen 43 ng/L High <=[address] [facility] Comment on above: Performed By: #### L 501.5200, L503.7505, L501.4021, L500.2500, L100.0100, L501.9520 #### [facility] [address] [place], [address] LDHon 09-27-2025 LDH 144 U/L Normal 84-[address] [facility] Comment on above: Performed By: #### L 503.0300, L504.0250, L503.0100 #### [facility] [address] [place], [address] LDH,Body Fluidon 09-27-2025 LDH,BF 88 Units/L Normal Not Establ. [facility] Comment on above: Performed By: #### L 503.0300, L504.0250, L503.0100 #### [facility] [address] [place], [address] M100.678on 09-27-2025 M100.678 Pending SARS-CoV-2 (COVID 19) Negative INFLUENZA A Negative INFLUENZA B Negative RSV PCR Negative Normal [facility] Comment on above: Performed By: #### M 100.678 #### [facility] [address] [place], [address] Magnesiumon 09-27-2025 Magnesium [Mass/Vol] 1.9 mg/dL Normal 1.5-2.2 [facility] Comment on above: Performed By: #### L 501.5200, L503.7505, L501.4021, L500.2500, L100.0100, L501.9520 #### [facility] [address] [place], [address] Pro- Brain NATRIURETIC PEPTI Gaby 09-27-2025 Natriuretic peptide B (Bld) [Mass/Vol] 4354 pg/mL High <=[address] [facility] Comment on above: Result Comment: Hear t Failure Unlikely: < 300 pg/mL Heart Failure Likely < 50 Years: > 450 pg/mL 50-75 Years: > 900 pg/mL >75 Years: > 1800 pg/mL Performed By: #### L 501.5200, L503.7505, L501.4021, L500.2500, L100.0100, L501.9520 #### [facility] [address] [place], [address] Protein, Body Fluidon 2024 Protein [Mass/Vol] 3.1 g/dL Normal Not Establ. [facility] Comment on above: Performed By: #### L 503.0300, L504.0250, L503.0100 #### [facility] [address] [place], [address] Protein, Totalon 09-27-2025 T PROT 6.3 g/dL Normal 5.9-8.[address] [facility] Comment on above: Performed By: #### L 503.0300, L504.0250, L503.0100 #### [facility] [address] [place], [address] Prothrombin Time w/INRon INR Coag (PPP) [Relative time] 1.1 {INR} Normal [facility] Comment on above: Order Comment: PT ST ATES TO BE A PORT DRAW-LABELS TUBES LEFT WITH FLOORSEC WHO CONFIRMED SHE WOULD GIVE TO THE NURSE WHEN SHE GOTBACK Performed By: #### L 503.0300, L504.0250, L503.0100 #### [facility] [address] [place], [address] PT Coag (PPP) [Time] 14.5 s Normal 11.7-14.9 [facility] Comment on above: Order Comment: PT ST ATES TO BE A PORT DRAW-LABELS TUBES LEFT WITH FLOORSEC WHO CONFIRMED SHE WOULD GIVE TO THE NURSE WHEN SHE GOTBACK Performed By: #### L 503.0300, L504.0250, L503.0100 #### [facility] [address] [place], [address] Thoracentesis W USon 025 Thoracentesis W US [facility] Imaging [facility] [address] [place] [address] Thoracentesis W US MR#: [id number] Acct: [id number] Name: TRISH HUNT Rep #: [id number] : 1945 F 80 From: Sixto yañez MD PCP: Dr. Emil Braswell MD Status: ADM IN Study: Thoracentesis W US Date of Exam: 09/27/25 Exam# [id number] Ordering Dr: Alexandro Mathews MD PROCEDURE: THORACENTESIS W US N/A REASON FOR EXAM: R LUNG EFFUSION TECHNIQUE: THORACENTESIS W US. The procedure as well as the benefits and possible complications including infection bleeding and pneumothorax were explained to the patient. Informed consent was obtained. The overlying skin was prepped and draped in the usual sterile fashion. Following local anesthetic application and under direct sonographic guidance, a 5 Slovak catheter was placed into the right pleural space. 200 mL of cloudy bev colored fluid was aspirated. A specimen was sent to the laboratory. COMPARISON: Prior CT scan dated September 27, 2025. FINDINGS: Successful right ultrasound-guided thoracentesis. US/Thoracentesis W US IMPRESSION: Successful right ultrasound-guided thoracentesis. The patient tolerated the procedure well. No immediate complication is noted. Reading Location: [facility] [place] CC: Dr. Alexandro Mathews MD; Dr. 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 Thyroid Stim Hormone (TSH)on 09-27-2025 TSH 4.750 uIU/mL High 0.300-4.[address] [facility] Comment on above: Performed By: #### L 501.5200, L503.7505, L501.4021, L500.2500, L100.0100, L501.9520 #### [facility] [address] [place], [address] Troponin T HS 2 HRon 025 Trop T High Sen 43 ng/L High <=[address] [facility] Comment on above: Performed By: #### L 503.0300, L504.0250, L503.0100 #### [facility] [address] [place], [address] Troponin T HS 4 HRon 025 Trop T High Sen 49 ng/L High <=[address] [facility] Comment on above: Order Comment: PT ST ATES TO BE A PORT DRAW-LABELS TUBES LEFT WITH FLOORSEC WHO CONFIRMED SHE WOULD GIVE TO THE NURSE WHEN SHE GOTBACK Performed By: #### L 503.0300, L504.0250, L503.0100 #### [facility] [address] [place], [address] Urinalysis, Completeon 09-27 BACTERIA 2+ /hpf Normal None Seen [facility] Comment on above: Order Comment: COLLE CTOR TO SPECIFY Performed By: #### L 503.0300, L504.0250, L503.0100 #### [facility] [address] [place], [address] EPI,SQUAMOUS 5-10 SEEN Normal 5-[address] [facility] Comment on above: Order Comment: COLLE CTOR TO SPECIFY Performed By: #### L 503.0300, L504.0250, L503.0100 #### [facility] [address] [place], [address] WBC 50-100 SEEN Normal 0-[address] [facility] Comment on above: Order Comment: COLLE CTOR TO SPECIFY Performed By: #### L 503.0300, L504.0250, L503.0100 #### [facility] [address] [place], [address] Mucus Ql (Urine sed) 0 SEEN Normal [facility] Comment on above: Order Comment: COLLE CTOR TO SPECIFY Performed By: #### L 503.0300, L504.0250, L503.0100 #### [facility] [address] [place], [address] RBC 0 SEEN Normal 0-[address] [facility] Comment on above: Order Comment: COLLE CTOR TO SPECIFY Performed By: #### L 503.0300, L504.0250, L503.0100 #### [facility] [address] [place], [address] CNPNon 08-28-2025 CNPN Telephone ([facility]) TRISH HUNT ([id number]) 1945 F Date Time Provider Department 08/28/25 RUBA TRUJILLO During your visit today, we recorded the following information about you: Kerry Ragland, RN 08/28/2025 2:11 PM Signed Pt calling in stating she tried to make an appointment with Dr. Sara Green's office at [facility]. She is asking for her records to be faxed over to her office as well as a referral. Printed off 05/23/25 appt with Ruba Trujillo, 06/13/25 appt with Kierra Wasserman and 07/11/25 appt with Ruba Trujillo as well as labwork from 04/25/25 AND 06/13/25 and hand x-rays from 06/13/25. Referral order pended and when signed, will fax all of the above to Dr. Green's office at fax # [phone]. Pt only wants referral to Dr. Green at this time. Pt is away we have a rheumatology PA at [facility] and will call if she would like to see her instead. Ruba Trujillo APRN.CNP 08/28/2025 2:12 PM Signed Referral placed. Ruba Trujillo APRN.Kerry Lomas RN 08/28/2025 3:40 PM Addendum All office visit notes, x-rays, labs, demographics and referral faxed to Dr. Green's office at [phone] Allergies As of Date: 08/28/2025 Noted Allergy Reaction CODEINE 10/13/2005 11 - Vomiting LISINOPRIL 05/24/2013 3 - Cough Comments: throat tickle MORPHINE 12/24/2018 1 - Mental Status Change Comments: sedation SEPTRA (SULFAMETHOXAZOLE-TRIMETHO* 10/13/2005 SULFA (SULFONAMIDE ANTIBIOTICS) 10/13/2005 VICODIN (HYDROCODONE-ACETAMINOPHE*1 11/28/2011 8 - GI Upset Date Reviewed: 07/11/2025 Reviewed by: Eyad Umaña LPN - Fully Assessed Reason for Visit: Referral Request [124] Cmt: to rheumatology Primary Visit Diagnosis:Osteoarthritis of both hands, unspecified osteoarthritis type [M19.041, M19.042] Other Visit Diagnosis:Bilateral hand pain [M79.641, M79.642] Order(s):CONSULT TO RHEUM/IMMUN DISEASE [9039] Order #: [id number]: 1 FUTURE Prescriptions as of 08/28/2025 - acetaminophen (TYLENOL EXTRA STRENGTH) 500 mg tablet Take 500 mg by mouth every 8 hours as needed for pain. - DULoxetine DR (CYMBALTA) 20 mg capsule Take 1 capsule by mouth once daily. - omeprazole (PRILOSEC) 20 mg capsule Take 1 capsule by mouth once daily. - MYRBETRIQ 50 mg Tb24 Take 2 tablets by mouth once daily. - Bisacodyl (DULCOLAX) 5 mg tab Take 5 mg by mouth as needed for constipation. - Methenamine Hippurate (HIPREX) 1 gram tablet Take 1 g by mouth two times a day with meals. - docusate sodium (COLACE) 100 mg capsule Can take up to six or eight at night - multivitamin tablet Take 1 tablet by mouth once daily. Problem List As Of Date 08/28/2025 Noted Resolved TOBACCO USE DISORDER [F17.200] 06/10/2006 LUMBAR DISC DISPLACEMENT [M51.26] Mixed hyperlipidemia [E78.2] Essential hypertension [I10] Obstructive chronic bronchitis with exacerbatio*01/27/2009 12/27/2016 Edema [R60.9] 06/29/2009 01/23/2010 VITAMIN D DEFICIENCY NOS [E55.9] 06/29/2009 Edema Leg [R60.0] 07/30/2009 Calcaneal Spur [M77.30] 08/15/2009 Bite from cat [W55.01XA] 01/23/2010 12/27/2016 Hepatomegaly [R16.0] 08/26/2010 12/27/2016 Fatty liver [K76.0] 09/27/2010 Plantar fasciitis [M72.2] 09/27/2010 12/27/2016 Chronic bronchitis [J42] 04/01/2011 Occult blood positive stool [R19.5] 10/12/2012 12/27/2016 Benign neoplasm of colon [D12.6] 12/14/2012 Medicare annual wellness visit, initial [Z00.00]06/29/2014 12/27/2016 Abnormal ultrasound of breast [R92.8] 09/14/2015 12/27/2016 Personal history of colonic polyps [Z86.0100] 02/27/2016 12/27/2016 Polyp of colon [K63.5] 03/27/2016 12/27/2016 Hyperglycemia [R73.9] 06/04/2016 12/27/2016 Metabolic syndrome [E88.810] 06/04/2016 08/02/2018 Hypothyroid [E03.9] Diabetes (HCC) [E11.9] 09/11/2017 Obesity, Class III, BMI 40-49.9 (morbid obesity*03/19/2018 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] 12/24/2018 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] 12/24/2018 Compression fracture of body of thoracic verteb*12/24/2018 Acute kidney failure, unspecified (HCC) [N17.9] 12/04/2018 Acute posthemorrhagic anemia [D62] 12/04/2018 Anemia [D64.9] 02/25/2023 Arthrodesis status [Z98.1] 12/15/2018 Atrophy of skin [L90.9] 02/25/2023 Backache [M54.9] 02/25/2023 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 pneumoniae) as the ca*12/04/2018 Localized enlarged lymph nodes [R59.0] 12/04/2018 jail (current) use of oral hypoglycemic dr* (more content not included)... Normal [facility] CNOVon 08-09-2025 CNOV Office Visit (FAMPWS ) TRISH HUNT ([id number]) 1945 F Date Time Provider Department 08/09/25 11:20 AM RUBA TRUJILLO FAMPWS During your visit today, we recorded the following information about you: Pulse Respiration Blood pressure 96/minute 16/minute 120/72 Ruba Trujillo APRN.CNP 08/09/2025 11:43 AM Addendum Try the duoderm dressings (hydrocolloid dressing). This can protect the area and stay on for several days. Try to do frequent position changes. Check into rheumatology. If not getting better/worsening, let us know. Ruba Trujillo APRN.CNP 08/09/2025 12:47 PM Signed This is a 80 year old female who presents today with: The patient is an 80-year-old female presenting for evaluation of a painful right gluteal sore of approximately two weeks? duration. HISTORY OF PRESENT ILLNESS: Right Buttock Sore: - Trish Hunt noticed a sore on the right buttock approximately 1.5 weeks ago. - Attributes the sore to prolonged sitting (22 hours/day) due to inability to walk long distances secondary to radiating nerve pain from cancer and surgeries. - Initially experienced pain while sitting in a recliner with a worn seat; attempted to alleviate discomfort by using pillows. - Began applying Neosporin to the sore, which provided some relief. - Denies the sore being open; reports it is itchy. - Denies any signs of infection, such as heat or significant pain. Arthritis: - Trish reports significant pain in hands, arms, and shoulders, particularly in the morning and during rainy weather. - Recently completed a course of Prednisone, which provided relief and improved hand mobility. - Currently taking ibuprofen 800 mg in the morning, with additional doses at night if pain is severe. - Expresses interest in long-term management options for arthritis pain - specifically long-term prednisone. 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 Hypothyroid Lung cancer (HCC) Non-small cell carcinoma of right lung, stage 4 Metabolic syndrome Other and unspecified hyperlipidemia Overactive bladder Unspecified essential hypertension PAST SURGICAL HISTORY Procedure Laterality Date CHOLECYSTECTOMY COLONOSCOPY FLX DX W/COLLJ SPEC WHEN PFRMD 12/14/2012 Colonoscopy COLSC FLX W/RMVL OF TUMOR POLYP LESION SNARE TQ 03/18/16 multiple polyps - 3 year follow up PAST SURGICAL HISTORY OF lumbosacral nerve root decompression PAST SURGICAL HISTORY OF bladder stim SIGMOIDOSCOPY FLX DX W/COLLJ SPEC BR/WA IF PFRMD 07/05/13 Sigmoidoscopy, flexible/colonoscopy needed in 1 year ALLERGIES Codeine, Lisinopril, Morphine, Septra [Sulfamethoxazole-Trimethop rim], Sulfa (Sulfonamide Antibiotics), and Vicodin [Hydrocodone-Acetaminophen] MEDICATIONS Current Outpatient Medications Medication Sig acetaminophen (TYLENOL EXTRA STRENGTH) 500 mg tablet Take 500 mg by mouth every 8 hours as needed for pain. DULoxetine DR (CYMBALTA) 20 mg capsule Take 1 capsule by mouth once daily. omeprazole (PRILOSEC) 20 mg capsule Take 1 capsule by mouth once daily. MYRBETRIQ 50 mg Tb24 Take 2 tablets by mouth once daily. Bisacodyl (DULCOLAX) 5 mg tab Take 5 mg by mouth as needed for constipation. Methenamine Hippurate (HIPREX) 1 gram tablet Take 1 g by mouth two times a day with meals. docusate sodium (COLACE) 100 mg capsule Can take up to six or eight at night multivitamin tablet Take 1 tablet by mouth once daily. No current facility-administered medications for this visit. FAMILY HISTORY Problem Relation Age of Onset Cancer Mother lung non smoker Coronary Artery Disease Father Cancer Sister thyroid SOCIAL HISTORY[1] REVIEW OF SYSTEMS Musculoskeletal: (+) right buttock pain with sitting, (+) radiating lower extremity pain, (+) bilateral hand arthralgia Skin: (+) right buttock lesion, (+) right buttock pruritus EXAM: BP 120/72 Pulse 96 Resp 16 PHYSICAL EXAM: General Appearance: Well appearing, alert, in no acute distress, well-hydrated, well nourished.. Skin: Skin color, texture, turgor normal, no suspicious rashes or lesions. Right buttock with appx 2-3 cm superficial lesion with scaly skin. Head: Normocephalic, no masses, lesions, tenderness or abnormalities. Eyes: Anicteric sclera. Extraocular movements are intact. . Neurologic: Gait normal. ASSESSMENT/PLAN 1. Wound of skin (T14.8XXA) - Lesion on right buttock present for 1.5 weeks; etiology unclear (pressure-related vs. abrasion); no signs of infection. - Advised frequent position changes and shifting in chair to reduce pressure. - Recommended hydrocolloid dressing (e.g., Duoderm) for protection and cushioning. - Discussed use of zinc oxide-based barrier creams (e.g., Desitin, Calmoseptine) as alternatives to Neosporin. She reports that (more content not included)... Normal [facility] CNOVon 07-11-2025 CNOV [facility] FARAZTRISH ([id number]) 1945 F Date Time Provider Department 07/11/25 2:40 PM RUBA TR[facility]JILLO [facility] During your visit today, we recorded the following information about you: Pulse Respiration Blood pressure 93/minute 16/minute 142/80 Ruba Trujillo APRN.CNP 07/11/2025 3:30 PM Signed Start prednisone. The prednisone taper will be 4 tablets for 3 days; 3 tablets for 3 days; 2 tablets for 3 days; then 1 tablet for 3 days. Please do no use other anti-inflammatories (like ibuprofen, aleve, naproxen, etc) while you are on this medication. 2. Let me know if this does not improve, or worsens, or comes back after the prednisone. Ruba Trujillo APRN.CNP 07/11/2025 5:44 PM Signed This is a 80 year old female who presents today with: The patient is an 80-year-old female with osteoarthritis and history of stage IV lung cancer in remission, presenting for evaluation of worsening hand and shoulder pain. HISTORY OF PRESENT ILLNESS: Osteoarthritis: - Trish J Faraz reports worsening pain in bilateral shoulders and hands x4 months. - Pain in shoulders exacerbated by raising arms. - Right hand pain more severe than left; unable to fully extend fingers. - Chronic swelling in hands; notes "severe arthritis" in both thumbs. - Pain not alleviated by Tylenol. Ibuprofen is helpful. - Previously prescribed Cymbalta, which caused somnolence and anorexia without pain relief. Refers made her goofy. - Trish has been performing exercises recommended by a physical therapist. - Seen by an orthopedic PA; no follow-up recommended. - She is interested in trial of prednisone to see if that helps her pain. 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 Hypothyroid Lung cancer (HCC) Non-small cell carcinoma of right lung, stage 4 Metabolic syndrome Other and unspecified hyperlipidemia Overactive bladder Unspecified essential hypertension PAST SURGICAL HISTORY Procedure Laterality Date CHOLECYSTECTOMY COLONOSCOPY FLX DX W/COLLJ SPEC WHEN PFRMD 12/14/2012 Colonoscopy COLSC FLX W/RMVL OF TUMOR POLYP LESION SNARE TQ 03/18/16 multiple polyps - 3 year follow up PAST SURGICAL HISTORY OF lumbosacral nerve root decompression PAST SURGICAL HISTORY OF bladder stim SIGMOIDOSCOPY FLX DX W/COLLJ SPEC BR/WA IF PFRMD 07/05/13 Sigmoidoscopy, flexible/colonoscopy needed in 1 year ALLERGIES Codeine, Lisinopril, Morphine, Septra [Sulfamethoxazole-Trimethop rim], Sulfa (Sulfonamide Antibiotics), and Vicodin [Hydrocodone-Acetaminophen] MEDICATIONS Current Outpatient Medications Medication Sig predniSONE (DELTASONE) 10 mg tablet Take 4 tabs daily x 3 days, then 3 tabs x 3 days, 2 tabs x 3 days, then 1 tab x3 days with food. acetaminophen (TYLENOL EXTRA STRENGTH) 500 mg tablet Take 500 mg by mouth every 8 hours as needed for pain. DULoxetine DR (CYMBALTA) 20 mg capsule Take 1 capsule by mouth once daily. omeprazole (PRILOSEC) 20 mg capsule Take 1 capsule by mouth once daily. MYRBETRIQ 50 mg Tb24 Take 2 tablets by mouth once daily. Bisacodyl (DULCOLAX) 5 mg tab Take 5 mg by mouth as needed for constipation. Methenamine Hippurate (HIPREX) 1 gram tablet Take 1 g by mouth two times a day with meals. docusate sodium (COLACE) 100 mg capsule Can take up to six or eight at night multivitamin tablet Take 1 tablet by mouth once daily. No current facility-administered medications for this visit. FAMILY HISTORY Problem Relation Age of Onset Cancer Mother lung non smoker Coronary Artery Disease Father Cancer Sister thyroid SOCIAL HISTORY[1] REVIEW OF SYSTEMS Constitutional: (+) decreased appetite, (+) hot flashes Ears/Nose/Mouth/Throat: (+) tooth fracture Gastrointestinal: (+) abdominal pressure Musculoskeletal: (+) bilateral shoulder pain, (+) bilateral hand pain, (+) bilateral thumb pain, (+) finger joint swelling, (+) limited finger range of motion, (+) back pain Skin: (+) palmar erythema EXAM: BP 142/80 Pulse 93 Resp 16 PHYSICAL EXAM: General Appearance: Well appearing, alert, in no acute distress, well-hydrated, well nourished.. Skin: Skin color, texture, turgor normal, no suspicious rashes or lesions. Head: Normocephalic, no masses, lesions, tenderness or abnormalities. Eyes: Anicteric sclera. Pupils are equally round and reactive to light. Extraocular movements are intact. . Extremities: No deformities, edema, skin discoloration, clubbing or cyanosis. Good capillary refill. Pain at the base of bilateral thumbs and scattered throughout different areas of the hands. Pain in the shoulders and difficulty raising arms. Neurologic: Gait normal. Reflexes normal and symmetric. Sensation grossly intact.. ASSESSMENT/PLAN 1. Primary osteoarthritis, right hand (M19.041 (more content not included)... Normal [facility] MR/BMS.CLOTILDE 07-04-2025 MR/BMS.CLOTILDE [facility] [address], [address] [place] [address] OFFICE VISIT Date of Service: 07/04/25 MR#: [id number] Acct: [id number] Name: TRISH HUNT Rep #: [id number] : 1945 Provider: Dr. 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 Accompanied by: self Is patient in pain?: No Allergies phenazopyridine (From Pyridium) Allergy (Verified 07/04/25 14:53) Nausea codeine Adverse Reaction (Severe, Verified 07/04/25 14:53) Nausea/Vom/Diarrhea hydrocodone (From Vicodin) Adverse Reaction (Severe, Verified 07/04/25 14:53) Nausea/Vom/Diarrhea morphine Adverse Reaction (Severe, Verified 07/04/25 14:53) severe sedation lisinopril Adverse Reaction (Intermediate, Verified 07/04/25 14:53) cough Sulfa (Sulfonamide Antibiotics) Adverse Reaction (Intermediate, Verified 07/04/25 14:53) Unknown sulfamethoxazole (From Septra) Adverse Reaction (Intermediate, Verified 07/04/25 14:53) Unknown trimethoprim (From Septra) Adverse Reaction (Intermediate, Verified 07/04/25 14:53) Unknown Medications ???Medication ???Instructions ???Recorded ???Confirmed ???Type mirabegron 50 mg tablet,extended 50 mg PO BID 05/30/25 07/04/25 His tory release 24 hr (Myrbetriq) ibuprofen 800 mg tablet 800 mg PO Q8H 07/04/25 07/04/25 Hi story nitrofurantoin 100 mg PO BID #14 caps 07/04/25 Rx monohydrate/macrocrystals 100 mg capsule (Macrobid) Have you fallen in the past year?: No Nurse's Note: dx with arthritis x2 months ago. was told to stop abx at the time we rxd them d/t meloxicam rx per pcp [facility] Medical History (Updated 07/04/25 @ 15:[address] Yolanda Ash MD) Urge incontinence Overactive bladder port placement Non-small cell carcinoma of right lung, stage 4 L4-L5 decompression Peripheral neuropathy GERD (gastroesophageal reflux disease) Mass of middle lobe of right lung Pleural effusion, right Disseminated malignancy Hypothyroidism Morbid (severe) obesity due to excess calories Hyperlipidemia associated with type 2 diabetes mellitus Back pain of thoracolumbar region Hypothyroidism Diabetes HTN (hypertension) Metastatic cancer Surgical History Hx of cholecystectomy Hx of hemorrhoidectomy History of tonsillectomy Family History Father Heart problem Mother Lung cancer Sister Lung cancer Social History housing: house Smoking Status: Former smoker HPI HPI Urology Chief Complaint: 3 month myrbetriq medication and uti follow up Details: TRISH HUNT, is a 80 F. She is here for follow up urinary tract infections. She has had 2 infections since the last visit. She was diagnosed with arthritis and told to stop her medications due to starting meloxicam, and now she is not on the meloxicam. She has not had hematuria since her last visit. She is taking the following prevention: she was having nausea and vomiting and stopped everything. We discussed options. She would like to try managing the infections when she gets them as she has had decreased appetite etc. She has been taking Myrbetriq 50mg twice daily. She is not having side effects from the medication. She would like to continue with this medication. ROS Const Constitutional: No chills, fatigue, fever(s), headache(s), night sweats, weakness, weight change, abnormal sleep pattern or change in appetite Eyes Eyes: No change in vision ENT ENT: No headache(s) or dry mouth Resp Respiratory: No cough, chest congestion, shortness of breath or wheezing Cardio Cardiology: Positive for other (No chest pain.); No shortness of breath, irregular heart rhythm or lightheadedness Gastro GI: Positive for other (No nausea.); No abdominal pain, change in bowel habits, constipation, diarrhea or vomiting Musc Musculoskeletal: No abnormal gait Skin Skin: No yellowing of the eye, lesions, itchy eyes, rash or skin ulcer Neuro Neurology: No abnormal gait, confusion, dizziness, weakness, headache(s) or memory loss Psych Psychiatric: No abnormal sleep pattern, No change in appetite, No confusion and No memory loss Endo Endocrine: No fatigue, increased thirst/drinking or weight change Aller/Imm Allergy (more content not included)... Normal [facility] Basic metabolic 2000 panelon 06-13-2025 Anion gap [Moles/Vol] 14 mmol/L Normal 8-15 [facility] Comment on above: Order Comment: Speci men Type: BLOOD SPECIMENOrdering Facility: [facility] Address: [address] [place] [address] Performed By: #### 2 4321-2, LIPNF, , 2157-04 ####[facility] LABCLIA [id number] [address] [address] [place] Calcium [Mass/Vol] 9.2 mg/dL Normal 8.5-10.2 [facility] Comment on above: Order Comment: Speci men Type: BLOOD SPECIMENOrdering Facility: [facility] Address: [address] [place], [place] [address] Performed By: #### 2 4321-2, LIPNF, , 2157-04 ####[facility] LABCLIA [id number] [address] [address] [place] Chloride [Moles/Vol] 100 mmol/L Normal 98-107 [facility] Comment on above: Order Comment: Speci men Type: BLOOD SPECIMENOrdering Facility: [facility] Address: [address] [place], [place] [address] Performed By: #### 2 4321-2, LIPNF, , 2157-04 ####[facility] LABCLIA [id number] [place] [id number] [place] CO2 [Moles/Vol] 26 mmol/L Normal 22-30 [facility] Comment on above: Order Comment: Speci men Type: BLOOD SPECIMENOrdering Facility: [facility] Address: [address] [place] [address] Performed By: #### 2 4321-2, LIPNF, , 2157-04 ####[facility] LABCLIA [id number] [address] [address] [place] Creatinine [Mass/Vol] 0.87 mg/dL Normal 0.58-0.96 [facility] Comment on above: Order Comment: Speci men Type: BLOOD SPECIMENOrdering Facility: [facility] Address: [address] [place], [place] [address] Performed By: #### 2 4321-2, LIPNF, , 2157-04 ####[facility] LABCLIA [id number] [place] [address] [place] eGFRcr SerPlBld CKD-EPI 2020 67 mL/min/1.73m??? Normal >=60 [facility] Comment on above: Order Comment: Robert weber Type: BLOOD SPECIMENOrdering Facility: [facility] Address: [address] [place] [address] Result Comment: Faye mated Glomerular Filtration Rate (eGFR) is calculated using the 2020 CKD-EPI creatinine equation. This equation utilizes serum creatinine, sex, and age as parameters. The creatinine assay has traceable calibration to isotope dilution-mass spectrometry. Refer to KDIGO guidelines for clinical interpretation. In patients with unstable renal function, e.g. those with acute kidney injury, the eGFR may not accurately reflect actual GFR. Performed By: #### 2 4321-2, PEDRO, , 2157-04 ####[facility] LABCLIA [id number] [place] [address] [place] Glucose [Mass/Vol] 112 mg/dL High 74-99 [facility] Comment on above: Order Comment: Robert weber Type: BLOOD SPECIMENOrdering Facility: [facility] Address: [address] [place] [address] Result Comment: The [place] Diabetes Association (ADA) provides guidance for cutoff values for fasting glucose and random glucose. The ADA defines fasting as no caloric intake for at least 8 hours. Fasting plasma glucose results between 100 to 125 mg/dL indicate increased risk for diabetes (prediabetes). Fasting plasma glucose results greater than or equal to 126 mg/dL meet the criteria for diagnosis of diabetes. In the absence of unequivocal hyperglycemia, results should be confirmed by repeat testing. In a patient with classic symptoms of hyperglycemia or hyperglycemic crisis, random plasma glucose results greater than or equal to 200 mg/dL meet the criteria for diagnosis of diabetes. Reference: Standards of Medical Care in Diabetes 2016, [place] Diabetes Association. Diabetes Care. 2016.39(Suppl 1). Performed By: #### 2 4321-2, PEDRO, , 2157-04 ####[facility] LABIA [id number] [address] [address] [place] Potassium [Moles/Vol] 4.0 mmol/L Normal 3.7-5.1 [facility] Comment on above: Order Comment: Speci men Type: BLOOD SPECIMENOrdering Facility: [facility] Address: [address] [place] [address] Performed By: #### 2 4321-2, LIPNF, , 2157-04 ####[facility] [id number] [address] [address] [place] Sodium [Moles/Vol] 140 mmol/L Normal 136-144 [facility] Comment on above: Order Comment: Speci men Type: BLOOD SPECIMENOrdering Facility: [facility] Address: [address] [place] [address] Performed By: #### 2 4321-2, LIPNF, , 2157-04 ####[facility] [id number] [address] [address] [place] Urea nitrogen [Mass/Vol] 18 mg/dL Normal 7-21 [facility] Comment on above: Order Comment: Speci men Type: BLOOD SPECIMENOrdering Facility: [facility] Address: [address] [place] [address] Performed By: #### 2 4321-2, LIPNF, , 2157-04 ####[facility] LABIA [id number] [address] [address] [place] CK SerPl-cCncon 06-13-2025 CK [Catalytic activity/Vol] 33 U/L Low 42-196 [facility] Comment on above: Order Comment: Speci men Type: BLOOD SPECIMENOrdering Facility: [facility] Address: [address] [place] [address] Performed By: #### 2 4321-2, LIPNF, , 2157-04 ####[facility] KRISSY [id number] TROYKeith [place] [id number] [place] [facility] CNOVon 06-13-2025 CNOV Office Visit (FAMPWS ) TRISH HUNT ([id number]) 1945 F Date Time Provider Department 06/13/25 1:00 PM REVA WASSERMAN [facility] During your visit today, we recorded the following information about you: Temperature Pulse Blood pressure 98 degrees 96/minute 122/68 Reva Wasserman, DEFENCE INTELLIGENCE ANALYST.[facility] 06/13/2025 1:24 PM Signed This is a 80 year old female who presents today with: Patient presents with: Arthritis: Follow up HISTORY OF PRESENT ILLNESS: Trish Hunt is a 80 year old female. Patient presents with: Arthritis: Follow up Trish Hunt is an 80-year-old female with a history of stage IV lung cancer, presenting for evaluation of bilateral hand pain and stiffness. Bilateral Hand Pain and Stiffness: - Onset 6 weeks ago, described as "very stiff" and painful. - Pain is diffuse, involving entire fingers and hands, with no specific joint worse than another. - Pain is worse with movement, especially making a fist and extending fingers. - Pain is constant, present even at rest, and described as "close to being excruciating" at times. - Stiffness and pain persist throughout the day and night. 02/23 - Noted swelling in hands, particularly in fingers. - Denies any burning sensation. - Pain has started to radiate up the arms. - Has been using compression gloves, diclofenac gel, and rice bags for heat therapy with minimal relief. - Has been performing hand exercises as recommended by physical therapy, but reports significant pain during exercises. - Has been taking meloxicam 15 mg daily for one month with no improvement; previously tried ibuprofen without relief. - Denies any known trauma or injury to the hands. - Has seen orthopedics and Ruba for evaluation and management without improvement. - Has not discussed hand pain with oncologist, Dr. Jimenez. Stage IV Lung Cancer: - Diagnosed 6 years ago, with a tumor in the back causing radiating nerve pain. - Has not received treatment for cancer in a long time. - Undergoes yearly checkups with oncologist, Dr. Jimenez. - Reports living in a recliner chair due to back pain, keeping feet elevated most of the time. - Experiences fatigue and loss of appetite, attributing it to pain. - Reports cold feet and believes neuropathy is setting in. 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 Hypothyroid Lung cancer (HCC) Non-small cell carcinoma of right lung, stage 4 Metabolic syndrome Other and unspecified hyperlipidemia Overactive bladder Unspecified essential hypertension PAST SURGICAL HISTORY Procedure Laterality Date CHOLECYSTECTOMY COLONOSCOPY FLX DX W/COLLJ SPEC WHEN PFRMD 12/14/2012 Colonoscopy COLSC FLX W/RMVL OF TUMOR POLYP LESION SNARE TQ 03/18/16 multiple polyps - 3 year follow up PAST SURGICAL HISTORY OF lumbosacral nerve root decompression PAST SURGICAL HISTORY OF bladder stim SIGMOIDOSCOPY FLX DX W/COLLJ SPEC BR/WA IF PFRMD 07/05/13 Sigmoidoscopy, flexible/colonoscopy needed in 1 year ALLERGIES Codeine, Lisinopril, Morphine, Septra [Sulfamethoxazole-Trimethop rim], Sulfa (Sulfonamide Antibiotics), and Vicodin [Hydrocodone-Acetaminophen] MEDICATIONS Current Outpatient Medications Medication Sig acetaminophen (TYLENOL EXTRA STRENGTH) 500 mg tablet Take 500 mg by mouth every 8 hours as needed for pain. meloxicam (MOBIC) 15 mg tablet Take 1 tablet by mouth once daily. With food. omeprazole (PRILOSEC) 20 mg capsule Take 1 capsule by mouth once daily. MYRBETRIQ 50 mg Tb24 Take 2 tablets by mouth once daily. Bisacodyl (DULCOLAX) 5 mg tab Take 5 mg by mouth as needed for constipation. Methenamine Hippurate (HIPREX) 1 gram tablet Take 1 g by mouth two times a day with meals. docusate sodium (COLACE) 100 mg capsule Can take up to six or eight at night multivitamin tablet Take 1 tablet by mouth once daily. No current facility-administered medications for this visit. FAMILY HISTORY Problem Relation Age of Onset Cancer Mother lung non smoker Coronary Artery Disease Father Cancer Sister thyroid Social History Tobacco Use Smoking status: Former Current packs/day: 0.00 Types: Cigarettes Quit date: 12/30/2008 Years since quittin.4 Smokeless tobacco: Never Vaping Use Vaping status: Never Used Substance Use Topics Alcohol use: Yes Comment: wine Drug use: No REVIEW OF SYSTEMS Constitutional: (+) fatigue, (+) loss of appetite Musculoskeletal: (+) bilateral hand pain, (+) bilateral hand stiffness, (+) bilateral hand swelling, (+) finger tenderness, (+) arm pain, (-) burning hand pain Cardiovascular: (+) bilateral pedal swelling Neurological: (+) cold feet Psychiatric: (+) feeling on edge, (-) depressed mood, (-) anhedonia EXAM: BP 122/68 Pulse 96 Temp 36.7 ?C (98 ?F) (Left Tym (more content not included)... Normal [facility] ESR Westergren method (Bld) [Velocity]on 06-13-2025 ESR (Bld) [Velocity] 12 mm/h [facility] Interpretation and review of laboratory results Normal [facility] ESR (Bld) [Velocity] 12 mm/h Normal 0-20 [facility] Comment on above: Order Comment: Speci men Type: BLOOD SPECIMENOrdering Facility: [facility] Address: [address] [place] [address] Performed By: #### 4 537-7 ####[facility] LABCLIA [id number] [place] [address] [place] LIPID PANEL, NONFASTINGon Cholesterol [Mass/Vol] 172 mg/dL Normal <200 [facility] Comment on above: Order Comment: Speci men Type: BLOOD SPECIMENOrdering Facility: [facility] Address: [address] [place] [address] Result Comment: <200 mg/dL, Desirable 200-239 mg/dL, Borderline high >239 mg/dL, High Performed By: #### 2 4321-2, LIPNF, 17671-5, 2157-6 ####[facility] LABCLIA [id number] [address] OF [facility] HDL CHOLESTEROL, NF 54 mg/dL Normal >39 [facility] Comment on above: Order Comment: Alexandriai tia Type: BLOOD SPECIMENOrdering Facility: [facility] Address: [address] [place] [address] Result Comment: 40-5 9 mg/dL, Acceptable >59 mg/dL, High: Negative risk factor for coronary heart disease <40 mg/dL, Low: Positive risk factor for coronary heart disease Performed By: #### 2 4321-2, LIPNF, , 2157-04 ####[facility] [id number] [address] LDL CHOLESTEROL CALCULATED, NF 97 mg/dL Normal <100 [facility] Comment on above: Order Comment: Robert tia Type: BLOOD SPECIMENOrdering Facility: [facility] Address: [address] [place] [address] Result Comment: <100 mg/dL, Optimal 100-129 mg/dL, Near optimal/above optimal 130-159 mg/dL, Borderline high 160-189 mg/dL, High >189 mg/dL, Very high Secondary prevention optimal LDL Cholesterol levels are recommended to be <70 mg/dL LDL cholesterol is calculated using the Rhoades-NIH equation. Performed By: #### 2 4321-2, LIPNF, , 2157-04 ####[facility] [id number] [address] OF [place] LDL/HDL RATIO, NF 1.80 mg/dL Normal <2.54 [facility] Comment on above: Order Comment: Speci men Type: BLOOD SPECIMENOrdering Facility: [facility] Address: [address] [place] [address] Result Comment: Bertrand gregg: 1. National Cholesterol Education Program ATP III Guideline At-A-Glance Quick Desk Reference: National Heart, Lung, and Blood [place]. National Institutes of Health. 2001: NIH Publication No. 01-3305. 2. An International Atherosclerosis Society position paper: global recommendations for the management of dyslipidemia: executive summary, Atherosclerosis. 2014: 232(2):410-413. Performed By: #### 2 4321-2, LIPNF, , 2157-04 ####[facility] LABCLIA [id number] [address] [address] [place] NON HDL CHOL, NF 118 mg/dL Normal <130 [facility] Comment on above: Order Comment: Speci men Type: BLOOD SPECIMENOrdering Facility: [facility] Address: [address] [place] [address] Result Comment: <130 mg/dL, Optimal 130-159 mg/dL, Near optimal/above optimal 160-189 mg/dL, Borderline high 190-219 mg/dL, High >219 mg/dL, Very high Secondary prevention optimal non HDL Cholesterol levels are recommended to be <100 mg/dL Performed By: #### 2 4321-2, LIPNF, , 2157-04 ####[facility] LABCLIA [id number] [address] [address] [place] T CHOL/HDL RATIO NF 3.19 mg/dL Normal <5.10 [facility] Comment on above: Order Comment: Alexandriai men Type: BLOOD SPECIMENOrdering Facility: [facility] Address: [address] [place] [address] Performed By: #### 2 4321-2, LIPNF, , 2157-04 ####[facility] LABCLIA [id number] [address] [address] [place] TRIGLYCERIDES, NF 116 mg/dL Normal <150 [facility] Comment on above: Order Comment: Speci men Type: BLOOD SPECIMENOrdering Facility: [facility] Address: [address] [place] [address] Result Comment: <150 mg/dL, Normal 150-199 mg/dL, Borderline high 200-499 mg/dL, High >499 mg/dL, Very high Performed By: #### 2 4321-2, LIPNF, , 2157-04 ####[facility] LABIA [id number] [address] [address] [place] VLDL CHOLESTEROL, NF 19 mg/dL Normal <30 [facility] Comment on above: Order Comment: Speci men Type: BLOOD SPECIMENOrdering Facility: [facility] Address: [address] [place] [address] Performed By: #### 2 4321-2, LIPNF, , 2157-04 ####[facility] LABIA [id number] [address] [address] [place] Magnesium SerPl-mCncon 06-13 Magnesium [Mass/Vol] 2.0 mg/dL Normal 1.7-2.3 [facility] Comment on above: Order Comment: Speci men Type: BLOOD SPECIMENOrdering Facility: [facility] Address: [address] [place] [address] Performed By: #### 2 4321-2, LIPNF, , 2157-04 ####[facility] [id number] [place] [address] [place] Nuclear Ab IA Ql (S)on 06-13 MARGOT SCR QUAL Negative Normal Negative [facility] Comment on above: Order Comment: Speci men Type: BLOOD SPECIMENOrdering Facility: [facility] Address: [address] [place] [address] Result Comment: The qualitative antinuclear antibody screen test performed using the following antigens: dsDNA, Chromatin, Ribosomal P, SS-A 60, SS-A 52, SS-B, Sm, SmRNP, IMPORT/EXPORT FREIGHT FORWARDER A, IMPORT/EXPORT FREIGHT FORWARDER 68, Scl-70, Francie-1, and Centromere B. Methodology: Multiplex flow immunoassay. Performed By: #### 4 7383-5 ####[facility] LABIA [id number] [address] [address] [place] Rheumatoid fact SerPl-aCncon 06-13-2025 Rheumatoid factor Qn [IU]/mL Normal <16 [facility] Comment on above: Order Comment: Speci men Type: BLOOD SPECIMENOrdering Facility: [facility] Address: [address] [place] [address] Performed By: #### 1 1572-5 ####[facility] LABCLIA [id number] [place] [address] [place] XR HAND/WRIST SURVEY 1V PA B ILon 06-13-2025 XR HAND/WRIST SURVEY 1V PA AREN * * *Final Report* * * DATE OF EXAM: Jun 13 2025 2:17PM WOX [id number] - XR HAND/WRIST SURVEY 1V PA AREN / PROCEDURE REASON: multiple diagnoses * * * * Physician Interpretation * * * * EXAMINATION / TECHNIQUE: XR HAND/WRIST SURVEY 1V PA AREN HISTORY: 6 weeks of joint pain in bilateral hands and wrists Bilateral hand pain Bilateral hand pain COMPARISON: 05/14/2011. RESULT: No acute fracture or dislocation in either hand. Severe bilateral first CMC joint osteoarthritis. Scattered interphalangeal joint osteoarthritic bilaterally. No osseous erosion. IMPRESSION: Osteoarthritis as described. 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 Date/Time: Jun 19 2025 8:07P Dictated by : CLIFF PORTER MD This examination was interpreted and the report reviewed and electronically signed by: CLIFF PORTER MD on Jun 19 2025 8:08PM EST [id number] Normal [facility] CNPJudith 06-01-2025 [facility] Telephone ([facility]) TRISH HUNT ([id number]) 1945 F Date Time Provider Department 06/01/25 EMIL BRASWELL [facility] During your visit today, we recorded the following information about you: Luba Guillaume RN 06/01/2025 11:52 AM Signed Pt was seen by Osei Trujillo CNP on 05/23/25 and was ordered Meloxicam for osteoarthritis of her hands and also was recently ordered macrobid for UTI. Pt was instructed to call provider's office with an update on her hands in 2 weeks. Pt calling to update Ruba that her hands still hurt badly. States it hurts to write" and "hurts to wipe her tush". Tylenol ineffective. Also reports she did not realize that her Meloxicam used to be 7.5 mg mg BID and Ruba changed it to 15 mg daily and pt states that was not an increase. Pt asking if Meloxicam can be increased? States she saw Ortho and does her hand exercises. Reports her stomach did feel off for a couple days last week but is improving. No nausea or vomiting. Appetite remains decreased. Please advise patient. SHARMIN Sesay Christy, APRN.MARLENA 06/02/2025 10:05 AM Signed That is the maximum meloxicam dose. It looks like she was going to have a follow-up with [facility] at the end of the month. Is that still scheduled? Eyad Umaña LPN 06/02/2025 12:09 PM Signed Phoned pt, notified of provider response. She states she was only to follow up with Ortho as needed. Advised pt to reach out to Ortho for appt to discuss her concerns. Pt states she will contact [facility] for appt. SUSHIL Yuan Christy, APRN.CNP 06/02/2025 3:03 PM Signed Noted. Ruba Trujillo APRN.CNP Allergies As of Date: 06/01/2025 Noted Allergy Reaction CODEINE 10/13/2005 11 - Vomiting LISINOPRIL 05/24/2013 3 - Cough Comments: throat tickle MORPHINE 12/24/2018 1 - Mental Status Change Comments: sedation SEPTRA (SULFAMETHOXAZOLE-TRIMETHO* 10/13/2005 SULFA (SULFONAMIDE ANTIBIOTICS) 10/13/2005 VICODIN (HYDROCODONE-ACETAMINOPHE*1 11/28/2011 8 - GI Upset Date Reviewed: 05/23/2025 Reviewed by: Eyad Umaña LPN - Fully Assessed Reason for Visit: Patient Update [1234] Prescriptions as of 06/02/2025 - nitrofurantoin monohydrate and macrocrystal (MACROBID) 100 mg capsule Take 1 capsule by mouth two times a day with meals for 7 days. - meloxicam (MOBIC) 15 mg tablet Take 1 tablet by mouth once daily. With food. - omeprazole (PRILOSEC) 20 mg capsule Take 1 capsule by mouth once daily. - MYRBETRIQ 50 mg Tb24 Take 2 tablets by mouth once daily. - Bisacodyl (DULCOLAX) 5 mg tab Take 5 mg by mouth as needed for constipation. - Methenamine Hippurate (HIPREX) 1 gram tablet Take 1 g by mouth two times a day with meals. - docusate sodium (COLACE) 100 mg capsule Can take up to six or eight at night - multivitamin tablet Take 1 tablet by mouth once daily. Problem List As Of Date 06/01/2025 Noted Resolved TOBACCO USE DISORDER [F17.200] 06/10/2006 LUMBAR DISC DISPLACEMENT [M51.26] Mixed hyperlipidemia [E78.2] Essential hypertension [I10] Obstructive chronic bronchitis with exacerbatio*01/27/2009 12/27/2016 Edema [R60.9] 06/29/2009 01/23/2010 VITAMIN D DEFICIENCY NOS [E55.9] 06/29/2009 Edema Leg [R60.0] 07/30/2009 Calcaneal Spur [M77.30] 08/15/2009 Bite from cat [W55.01XA] 01/23/2010 12/27/2016 Hepatomegaly [R16.0] 08/26/2010 12/27/2016 Fatty liver [K76.0] 09/27/2010 Plantar fasciitis [M72.2] 09/27/2010 12/27/2016 Chronic bronchitis [J42] 04/01/2011 Occult blood positive stool [R19.5] 10/12/2012 12/27/2016 Benign neoplasm of colon [D12.6] 12/14/2012 Medicare annual wellness visit, initial [Z00.00]06/29/2014 12/27/2016 Abnormal ultrasound of breast [R92.8] 09/14/2015 12/27/2016 Personal history of colonic polyps [Z86.0100] 02/27/2016 12/27/2016 Polyp of colon [K63.5] 03/27/2016 12/27/2016 Hyperglycemia [R73.9] 06/04/2016 12/27/2016 Metabolic syndrome [E88.810] 06/04/2016 08/02/2018 Hypothyroid [E03.9] Diabetes (HCC) [E11.9] 09/11/2017 Obesity, Class III, BMI 40-49.9 (morbid obesity*03/19/2018 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] 12/24/2018 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] 12/24/2018 Compression fracture of body of thoracic verteb*12/24/2018 Acute kidney failure, unspecified (HCC) [N17.9] 12/04/2018 Acute posthemorrhagic anemia [D62] 12/04/2018 Anemia [D64.9] 02/25/2023 Arthrodesis status [Z98.1] 12/15/2018 Atrophy of skin [L90.9] 02/25/2023 Backache [M54.9] 02/25/2023 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 Normal [facility] Elzbieta 05-31-2025 CNPN Telephone ([facility]) TRISH HUNT ([id number]) 1945 F Date Time Provider Department 05/31/25 RUBA TRUJILLO During your visit today, we recorded the following information about you: Eyad Umaña LPN 05/31/2025 8:26 AM Signed Scan on 05/30/2025 5:19 PM by Provider, SILVANO PrabhakarC: Consultation - Hematology/Oncology Allergies As of Date: 05/31/2025 Noted Allergy Reaction CODEINE 10/13/2005 11 - Vomiting LISINOPRIL 05/24/2013 3 - Cough Comments: throat tickle MORPHINE 12/24/2018 1 - Mental Status Change Comments: sedation SEPTRA (SULFAMETHOXAZOLE-TRIMETHO* 10/13/2005 SULFA (SULFONAMIDE ANTIBIOTICS) 10/13/2005 VICODIN (HYDROCODONE-ACETAMINOPHE*1 11/28/2011 8 - GI Upset Date Reviewed: 05/23/2025 Reviewed by: Eyad Umaña LPN - Fully Assessed Reason for Visit: Patient Update [1234] Cmt: Dr. Gates's note 05/30/25 Prescriptions as of 07/14/2025 - predniSONE (DELTASONE) 10 mg tablet Take 4 tabs daily x 3 days, then 3 tabs x 3 days, 2 tabs x 3 days, then 1 tab x3 days with food. - acetaminophen (TYLENOL EXTRA STRENGTH) 500 mg tablet Take 500 mg by mouth every 8 hours as needed for pain. - DULoxetine DR (CYMBALTA) 20 mg capsule Take 1 capsule by mouth once daily. - omeprazole (PRILOSEC) 20 mg capsule Take 1 capsule by mouth once daily. - MYRBETRIQ 50 mg Tb24 Take 2 tablets by mouth once daily. - Bisacodyl (DULCOLAX) 5 mg tab Take 5 mg by mouth as needed for constipation. - Methenamine Hippurate (HIPREX) 1 gram tablet Take 1 g by mouth two times a day with meals. - docusate sodium (COLACE) 100 mg capsule Can take up to six or eight at night - multivitamin tablet Take 1 tablet by mouth once daily. Problem List As Of Date 05/31/2025 Noted Resolved TOBACCO USE DISORDER [F17.200] 06/10/2006 LUMBAR DISC DISPLACEMENT [M51.26] Mixed hyperlipidemia [E78.2] Essential hypertension [I10] Obstructive chronic bronchitis with exacerbatio*01/27/2009 12/27/2016 Edema [R60.9] 06/29/2009 01/23/2010 VITAMIN D DEFICIENCY NOS [E55.9] 06/29/2009 Edema Leg [R60.0] 07/30/2009 Calcaneal Spur [M77.30] 08/15/2009 Bite from cat [W55.01XA] 01/23/2010 12/27/2016 Hepatomegaly [R16.0] 08/26/2010 12/27/2016 Fatty liver [K76.0] 09/27/2010 Plantar fasciitis [M72.2] 09/27/2010 12/27/2016 Chronic bronchitis [J42] 04/01/2011 Occult blood positive stool [R19.5] 10/12/2012 12/27/2016 Benign neoplasm of colon [D12.6] 12/14/2012 Medicare annual wellness visit, initial [Z00.00]06/29/2014 12/27/2016 Abnormal ultrasound of breast [R92.8] 09/14/2015 12/27/2016 Personal history of colonic polyps [Z86.0100] 02/27/2016 12/27/2016 Polyp of colon [K63.5] 03/27/2016 12/27/2016 Hyperglycemia [R73.9] 06/04/2016 12/27/2016 Metabolic syndrome [E88.810] 06/04/2016 08/02/2018 Hypothyroid [E03.9] Diabetes (HCC) [E11.9] 09/11/2017 Obesity, Class III, BMI 40-49.9 (morbid obesity*03/19/2018 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] 12/24/2018 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] 12/24/2018 Compression fracture of body of thoracic verteb*12/24/2018 Acute kidney failure, unspecified (HCC) [N17.9] 12/04/2018 Acute posthemorrhagic anemia [D62] 12/04/2018 Anemia [D64.9] 02/25/2023 Arthrodesis status [Z98.1] 12/15/2018 Atrophy of skin [L90.9] 02/25/2023 Backache [M54.9] 02/25/2023 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 pneumoniae) as the ca*12/04/2018 Localized enlarged lymph nodes [R59.0] 12/04/2018 jail (current) use of oral hypoglycemic dr*12/04/2018 Lung mass [R91.8] 02/25/2023 Morbid obesity (HCC) [E66.01] 12/04/2018 Neoplasm related pain (acute) (chronic) [G89.3] 12/04/2018 Non-small cell carcinoma of lung, stage 4 (HCC)*12/17/2018 Nosocomial condition [Y95] 12/04/2018 Other abnormal findings in urine [R82.998] 05/13/2018 Other abnormal glucose [R73.09] 09/29/2017 Overactive bladder [N32.81] 12/04/2018 Pathological fracture of vertebrae in neoplasti*12/04/2018 Personal history of nicotine dependence [Z87.89*12/04/2018 Pleural effusion [J90] 12/04/2018 Pneumonia, unspecified organism [J18.9] 12/04/2018 Pneumonitis [J98.4] 02/25/2023 Radiation sickness [T66.XXXA] 12/29/2018 Rash [R21] 02/25/2023 Malignant neoplasm of unspecified part of right*12/04/2018 Shortness of breath [R06.02] 11/10/2018 Spinal stenosis, thoracic region [M48.04] 12/04/2018 Unspecified Escherichia coli (E. coli) as the c*12/04/2018 Urge incontinence [N39.41] 11/14/2 (more content not included)... Normal [facility] Absolute lymphocyte countOrd ered By: Arthur Coronel on 05-30-2025 Lymphocytes Auto (Unsp spec) [#/Vol] 0.52 10*3/uL Low 0.83-4.[address] [facility] Absolute neutrophil countOrd ered By: Arthur [facility] on 05-30-2025 Neutrophils (Bld) [#/Vol] 4.6 10*3/uL 2.0-7.[address] [facility] Anion gap in Serum or Plasma Ordered By: Arthur Coronel on 05-30-2025 Anion gap [Moles/Vol] 8 mmol/L 03-30 [facility] Automated lymphocyte count a s percentage of total leukocytesOrdered By: Arthur Coronel on 05-30-2025 Lymphocytes/100 WBC Auto (Unsp spec) 8.9 % Low 19-[address] [facility] BUN/creatinine ratioOrdered By: [facility] on 05-30-2025 Urea nitrogen/Creatinine [Mass ratio] 32.1 mg/mg High 10-[address] [facility] Basophil percentageOrdered B y: Arthur Coronel on 05-30-2025 Basophils/100 WBC (Bld) 0.7 % 0-[address] [facility] Bilirubin, totalOrdered By: [facility] on 05-30-2025 Bilirubin [Mass/Vol] 0.35 mg/dL 0.00-1.30 [facility] CBC W/Diff, Automatedon 05-16 Absolute Lymph 0.52 X10 3/uL Low 0.83-4.[address] [facility] Comment on above: Performed By: #### L 503.0300, L504.0250, L503.0100 #### [facility] [address] [place], [address] Absolute Neut 4.6 X10 3/uL Normal 2.0-7.[address] [facility] Comment on above: Performed By: #### L 503.0300, L504.0250, L503.0100 #### [facility] [address] [place], [address] Basophils/100 WBC (Bld) 0.7 % Normal 0-[address] [facility] Comment on above: Performed By: #### L 503.0300, L504.0250, L503.0100 #### [facility] [address] [place], [address] Eosinophils/100 WBC (Bld) 3.9 % Normal 0-[address] [facility] Comment on above: Performed By: #### L 503.0300, L504.0250, L503.0100 #### [facility] [address] [place], [address] Erythrocyte distribution width (RBC) [Ratio] 15.0 % High 11.6-14.[address] [facility] Comment on above: Performed By: #### L 503.0300, L504.0250, L503.0100 #### [facility] [address] [place], [address] Hematocrit (Bld) [Volume fraction] 40.9 % Normal 37-[address] [facility] Comment on above: Performed By: #### L 503.0300, L504.0250, L503.0100 #### [facility] [address] [place], [address] Hemoglobin (Bld) [Mass/Vol] 12.7 g/dL Normal 12.0-15.[address] [facility] Comment on above: Performed By: #### L 503.0300, L504.0250, L503.0100 #### [facility] [address] [place], [address] IG% 0.700 Normal 0.0-0.[address] [facility] Comment on above: Result Comment: IG% - Immature Granulocytes (promyelocytes, myelocytes and metamyelocytes) > 1% indicates that a LEFT SHIFT is Present. Performed By: #### L 503.0300, L504.0250, L503.0100 #### [facility] [address] [place], [address] Lymphocytes/100 WBC (Bld) 8.9 % Low 19-[address] [facility] Comment on above: Performed By: #### L 503.0300, L504.0250, L503.0100 #### [facility] [address] [place], [address] MCH (RBC) [Entitic mass] 30.7 pg Normal 27.0-32.[address] [facility] Comment on above: Performed By: #### L 503.0300, L504.0250, L503.0100 #### [facility] [address] [place], [address] MCHC (RBC) [Mass/Vol] 31.1 g/dL Low 32-36 [facility] Comment on above: Performed By: #### L 503.0300, L504.0250, L503.0100 #### [facility] [address] [place], [address] MCV (RBC) [Entitic vol] 98.8 fL Normal 81-[address] [facility] Comment on above: Performed By: #### L 503.0300, L504.0250, L503.0100 #### [facility] [address] [place], [address] Monocytes/100 WBC (Bld) 7.0 % Normal 0-[address] [facility] Comment on above: Performed By: #### L 503.0300, L504.0250, L503.0100 #### [facility] [address] [place], [address] Neutrophils/100 WBC (Bld) 78.8 % High 47-[address] [facility] Comment on above: Performed By: #### L 503.0300, L504.0250, L503.0100 #### [facility] [address] [place], [address] Nucleated RBC (Bld) [#/Vol] 0 10*3/uL Normal 0-[address] [facility] Comment on above: Performed By: #### L 503.0300, L504.0250, L503.0100 #### [facility] [address] [place], [address] Platelet mean volume (Bld) [Entitic vol] 10.2 fL Normal 6.2-12.[address] [facility] Comment on above: Performed By: #### L 503.0300, L504.0250, L503.0100 #### [facility] [address] [place], [address] Platelets (Bld) [#/Vol] 191 10*3/uL Normal 150-[address] [facility] Comment on above: Performed By: #### L 503.0300, L504.0250, L503.0100 #### [facility] [address] [place], [address] RBC (Bld) [#/Vol] 4.14 10*6/uL Low 4.2-5.4 [facility] Comment on above: Performed By: #### L 503.0300, L504.0250, L503.0100 #### [facility] [address] [place], [address] RDW SD 54.4 fl High 35.1-43.[address] [facility] Comment on above: Performed By: #### L 503.0300, L504.0250, L503.0100 #### [facility] [address] [place], [address] WBC (Bld) [#/Vol] 5.8 10*3/uL Normal 4.4-11.0 [facility] Comment on above: Performed By: #### L 503.0300, L504.0250, L503.0100 #### [facility] [address] [place], [address] Carbon dioxide, total [Moles /volume] in Central venous bloodOrdered By: Arthur Gates on 05-30-2025 CO2 [Moles/Vol] 26.7 mmol/L 21.0-32.[address] [facility] Chloride assayOrdered By: Francie Gates on 05-30-2025 Chloride [Moles/Vol] 105 mmol/L 98-108 [facility] Comprehensive Metabolic Prof ilon 05-30-2025 Albumin [Mass/Vol] 3.4 g/dL Normal 3.4-4.8 [facility] Comment on above: Performed By: #### L 503.0300, L504.0250, L503.0100 #### [facility] [address] [place], [address] Albumin/Globulin [Mass ratio] 1.0 {ratio} Normal 0.9-2.[address] [facility] Comment on above: Performed By: #### L 503.0300, L504.0250, L503.0100 #### [facility] [address] [place], [address] ALK PHOS 34 U/L Low 35-[address] [facility] Comment on above: Performed By: #### L 503.0300, L504.0250, L503.0100 #### [facility] [address] [place], [address] ALT [Catalytic activity/Vol] U/L Normal <=[address] [facility] Comment on above: Performed By: #### L 503.0300, L504.0250, L503.0100 #### [facility] [address] [place], [address] AST [Catalytic activity/Vol] 14 U/L Normal <=[address] [facility] Comment on above: Performed By: #### L 503.0300, L504.0250, L503.0100 #### [facility] [address] [place], [address] Bilirubin [Mass/Vol] 0.35 mg/dL Normal 0.00-1.30 [facility] Comment on above: Performed By: #### L 503.0300, L504.0250, L503.0100 #### [facility] [address] [place], [address] BUN/CRE 32.1 RATIO High 10-[address] [facility] Comment on above: Performed By: #### L 503.0300, L504.0250, L503.0100 #### [facility] [address] [place], [address] Calcium [Mass/Vol] 9.2 mg/dL Normal 7.6-11.0 [facility] Comment on above: Performed By: #### L 503.0300, L504.0250, L503.0100 #### [facility] [address] [place], [address] Chloride [Moles/Vol] 105 mmol/L Normal 98-108 [facility] Comment on above: Performed By: #### L 503.0300, L504.0250, L503.0100 #### [facility] [address] [place], [address] CO2 [Moles/Vol] 26.7 mmol/L Normal 21.0-32.[address] [facility] Comment on above: Performed By: #### L 503.0300, L504.0250, L503.0100 #### [facility] [address] [place], [address] Creatinine [Mass/Vol] 0.84 mg/dL Normal 0.70-1.20 [facility] Comment on above: Performed By: #### L 503.0300, L504.0250, L503.0100 #### [facility] [address] [place], [address] ECRCL 53.73 ml/min Normal 50-[address] [facility] Comment on above: Performed By: #### L 503.0300, L504.0250, L503.0100 #### [facility] [address] [place], [address] GAP 8 Normal 5-[address] [facility] Comment on above: Performed By: #### L 503.0300, L504.0250, L503.0100 #### [facility] [address] [place], [address] GFR/1.73 sq M.predicted among non-blacks MDRD (S/P/Bld) [Vol rate/Area] 69 mL/min/{1.73_m2} Normal >[address] [facility] Comment on above: Result Comment: mL/m in/1.73m2 CKD-EPI Creatinine Equation (2020) Performed By: #### L 503.0300, L504.0250, L503.0100 #### [facility] [address] [place], [address] Globulin (S) [Mass/Vol] 3.5 g/dL Normal 2.2-4.[address] [facility] Comment on above: Performed By: #### L 503.0300, L504.0250, L503.0100 #### [facility] [address] [place], [address] Glucose [Mass/Vol] 104 mg/dL High 70-99 [facility] Comment on above: Performed By: #### L 503.0300, L504.0250, L503.0100 #### [facility] [address] [place], [address] Potassium [Moles/Vol] 4.5 mmol/L Normal 3.3-5.1 [facility] Comment on above: Performed By: #### L 503.0300, L504.0250, L503.0100 #### [facility] [address] [place], [address] Sodium [Moles/Vol] 140 mmol/L Normal 133-145 [facility] Comment on above: Performed By: #### L 503.0300, L504.0250, L503.0100 #### [facility] [address] [place], [address] T PROT 6.8 g/dL Normal 5.9-8.[address] [facility] Comment on above: Performed By: #### L 503.0300, L504.0250, L503.0100 #### [facility] [address] [place], [address] Urea nitrogen [Mass/Vol] 27 mg/dL High 4-[address] [facility] Comment on above: Performed By: #### L 503.0300, L504.0250, L503.0100 #### [facility] [address] [place], [address] Eosinophil percentageOrdered By: Arthur Gates on 05-30-2025 Eosinophils/100 WBC (Bld) 3.9 % 0-[address] [facility] Erythrocyte distribution wid th ratioOrdered By: Arthur Gates on 05-30-2025 Erythrocyte distribution width (RBC) [Ratio] 15.0 % High 11.6-14.[address] [facility] Erythrocyte distribution wid th standard deviationOrdered By: Arthur Gates on 05-30-2025 Erythrocyte distribution width (RBC) [Ratio] 54.4 fl High 35.1-43.[address] [facility] Glomerular filtration rate ( GFR) estimation/1.73 sq m using serum, plasma, or whole bOrdered By: Arthur Gates on 05-30-2025 GFR/1.73 sq M.predicted among non-blacks MDRD (S/P/Bld) [Vol rate/Area] 69 mL/min/{1.73_m2} >[address] [facility] Comment on above: mL/min/1.73m2 CKD-EP I Creatinine Equation (2020) Hematocrit Auto (Bld) [Volum e fraction]Ordered By: Arthur Gates on 05-30-2025 Hematocrit (Bld) [Volume fraction] 40.9 % 37-[address] [facility] Hemoglobin measurementOrdere d By: Arthur Gates on 05-30-2025 Hemoglobin (Bld) [Mass/Vol] 12.7 g/dL 12.0-15.[address] [facility] Immature granulocytes/100 WB C Auto (Bld)Ordered By: Arthur Gates on 05-30-2025 Immature granulocytes/100 WBC (Bld) 0.700 % 0.0-0.[address] [facility] Comment on above: IG% - Immature Granu locytes (promyelocytes, myelocytes and metamyelocytes) > 1% indicates that a LEFT SHIFT is Present. LDHon 05-30-2025 LDH 130 U/L Normal 84-[address] [facility] Comment on above: Order Comment: 1 Performed By: #### L 503.0300, L504.0250, L503.0100 #### [facility] [address] [place] [address], [id number] Laboratory - Chemistry and C hemistry - challengeOrdered By: Arthur Gates on 05-30-2025 AST [Catalytic activity/Vol] 14 U/L <[address] [facility] Lactate dehydrogenase (LDH) measurementOrdered By: Arthur Gates on 05-30-2025 LDH [Catalytic activity/Vol] 130 U/L 84-[address] [facility] MCV (mean corpuscular volume ) determinationOrdered By: Arthur Gates on 05-30-2025 MCV (RBC) [Entitic vol] 98.8 fL 81-[address] [facility] Mean corpuscular hemoglobin (MCH) determinationOrdered By: Arthur Gates on 05-30-2025 MCH (RBC) [Entitic mass] 30.7 pg 27.0-32.[address] [facility] Mean corpuscular hemoglobin concentration (MCHC) determinationOrdered By: Arthur Gates on 05-30-2025 MCHC (RBC) [Mass/Vol] 31.1 g/dL Low 32-36 [facility] Mean platelet volume determi nationOrdered By: Arthur Gates on 05-30-2025 Platelet mean volume (Bld) [Entitic vol] 10.2 fL 6.2-12.[address] [facility] Monocyte percentageOrdered B y: Arthur Gates on 05-30-2025 Monocytes/100 WBC (Bld) 7.0 % 0-[address] [facility] Neutrophil percentageOrdered By: Arthur Gates on 05-30-2025 Neutrophils/100 WBC (Bld) 78.8 % High 47-[address] [facility] Nucleated red blood cell per centageOrdered By: Arthur Gates on 05-30-2025 Nucleated RBC/100 WBC (Bld) [Ratio] 0 % 0-[address] [facility] Oncology Visit Reporton 05-16 Oncology Visit Report [facility] [place] [address] OFFICE VISIT Date of Service: 05/30/25 1453 MR#: [id number] Acct: [id number] Name: TRISH HUNT Rep #: [id number] : 1945 From: Arthur Gates MD Age/Sex: 80/F Location: [facility] Status: Signed HPI Subjective Date of Service 05/30/25 Chief Complaint F/u for NSCLC. History of Present Illness 80y.o.woman presented with persistent back pain to [facility]. She was found to have a destructive lesion at T10 associated with right middle lobe mass and collapse, multiple mediastinal adenopathy on CT of chest, abdomen and pelvis done on 11/11/2018. She was transferred to because of impending cord compression/stenosis. She had FOB and EBUS with bx done on 11/15/2018 which showed partially obstructing lesion in the right middle lobe bronchus. EBUS showed multiple mediastinal lymphadenopathy suggestive of malignancy she had biopsies done. Pathology showed adenocarcinoma in level 7 and 11 nodes, negative for EGFR, BRAF, ALK, ROS 1, and NTRK but positive for PD-L1 with TPS of 75%, also positive for KRAS G12C. She went on to have spinal fusion on 11/23/2018. Pathology showed metastatic non-small cell lung carcinoma consistent with adenocarcinoma involving soft tissue and bone. Received palliative radiation to T8-T12 Spine from 12/21/2018-01/04/2019. Port was placed on 12/30/2018. Commenced with cycle 1 carboplatin/pemetrexed/pemb rolizumab on 01/24/19, finished C5 Keytruda on 04/25/2019. CT on 03/03/[address] on 04/14/2019 showed large R pleural effusion. Had Thoracentesis on 04/22/2019. PET/CT done on 05/09/2019 showed Hypermetabolic activity in R hilar area, a large Pleural effusion with no activity. Was in the ER for pedal edema and Large Pleural effusion. Thoracentesis was done on 05/13/2019. She received consolidation RT to R hilar area from 05/31/2019 to 06/15/2019. Had another Thoracentesis on 06/09/2019. Was referred to thoracic surgery for Pleurx Catheter placement and elected to have it done locally. She does not want to have the Pleurx catheter done. Started Carboplatin and Taxol because of persistent R pleural effusion on 07/25/2019. Treated with antibiotics for UTI between cycles 3 4. Cycle 4 day 1 delayed by 1 week d/t neutropenia, administered on 10/24/19 rather than 10/17/19. She finished C4 D15 on 11/07/2019. CT scan on 11/18/2019 showed Persistent R pleural effusion. Thoracentesis for cytology on 11/22/2019 was negative for malignant cells. PET/CT on 01/23/2020 showed R pleural effusion with no hypermetabolic activity. She is on observation and comes for follow up. Still has some pain in the back with activity. [facility] Medical History port placement Non-small cell carcinoma of right lung, stage 4 L4-L5 decompression Peripheral neuropathy GERD (gastroesophageal reflux disease) Mass of middle lobe of right lung Pleural effusion, right Disseminated malignancy Hypothyroidism Morbid (severe) obesity due to excess calories Hyperlipidemia associated with type 2 diabetes mellitus Back pain of thoracolumbar region Hypothyroidism Diabetes HTN (hypertension) Metastatic cancer Surgical History Hx of cholecystectomy Hx of hemorrhoidectomy History of tonsillectomy Family History Father Heart problem Mother Lung cancer Sister Lung cancer Social History housing: house Smoking Status: Former smoker Intake Vital Signs 06/01/24 14:23 05/30/25 14:56 Height 5 ft 3 in 5 ft 3 in Weight: 86.183 kg BMI 33.6 BP 167/84 H Blood Pressure Location Rt brachial Position Sitting Respiration 18 Pulse 95 Pulse Source Monitor Temp 98.4 F Temperature Source Temporal Artery Pulse Oximetry (%) 88 Oxygen Delivery Method room air Intake Is patient in pain?: Yes (hands, bladder infection) Allergies phenazopyridine (From Pyridium) Allergy (Verified 05/30/25 15:00) Nausea codeine Adverse Reaction (Severe, Verified 05/30/25 15:00) Nausea/Vom/Diarrhea hydrocodone (From Vicodin) Adverse Reaction (Severe, Verified 05/30/25 15:00) Nausea/Vom/Diarrhea morphine Adverse Reaction (Severe, Verified 05/30/25 15:00) severe sedation lisinopril Adverse Reaction (Intermediate, Verified 05/30/25 15:00) cough Sulfa (Sulfonamide Antibiotics) Adverse Reaction (Intermediate, Verified 05/30/25 15:00) Unknown sulfamethoxazole (From Septra) Adverse Reaction (Intermediate, Verified 05/30/25 15:00) Unknown trimethoprim (From Septra) Adverse Reaction (Intermediate, Verified 05/30/25 15:00) Unknown Medications ???Medication ???Instructions ???Recorded ???Confirmed ??? (more content not included)... Normal [facility] Platelet countOrdered By: Francie Gates on 05-30-2025 Platelets (Bld) [#/Vol] 191 10*3/uL 150-[address] [facility] Potassium measurement (mass/ volume)Ordered By: Arthur Gates on 05-30-2025 Potassium (Unsp spec) [Mass/Vol] 4.5 mmol/L 3.3-5.[address] [facility] RBC Auto (Bld) [#/Vol]Ordere d By: Arthur Gates on 05-30-2025 RBC (Bld) [#/Vol] 4.14 10*6/uL Low 4.2-5.4 [facility] Serum creatinine measurement (mass/volume)Ordered By: Arthur Gates on 05-30-2025 Creatinine [Mass/Vol] 0.84 mg/dL 0.70-1.20 [facility] Serum globulin measurementOr dered By: Arthur Gates on 05-30-2025 Globulin (S) [Mass/Vol] 3.5 g/dL 2.2-4.[address] [facility] Serum glucose measurement (m ass/volume)Ordered By: Arthur Gates on 05-30-2025 Glucose [Mass/Vol] 104 mg/dL High 70-99 [facility] Serum or plasma alanine de la cruz otransferase (ALT) measurementOrdered By: Arthur Gates on 05-30-2025 ALT [Catalytic activity/Vol] U/L <[address] [facility] Serum or plasma albumin megan urement (mass/volume)Ordered By: Arthur Gates on 05-30-2025 Albumin [Mass/Vol] 3.4 g/dL 3.4-4.8 [facility] Serum or plasma albumin/glob ulin mass ratioOrdered By: Arthur Gates on 05-30-2025 Albumin/Globulin [Mass ratio] 1.0 {ratio} 0.9-2.[address] [facility] Serum or plasma alkaline harrison sphatase measurementOrdered By: Arthur Gates on 05-30-2025 ALP [Catalytic activity/Vol] 34 U/L Low 35-[address] [facility] Serum or plasma calcium megan urement (mass/volume)Ordered By: Arthur Gates on 05-30-2025 Calcium [Mass/Vol] 9.2 mg/dL 7.6-11.0 [facility] Serum or plasma urea nitroge n measurement (mass/volume)Ordered By: Arthur Gates on 05-30-2025 Urea nitrogen [Mass/Vol] 27 mg/dL High 4-[address] [facility] Sodium levelOrdered By: Elder Gates on 05-30-2025 Sodium [Moles/Vol] 140 mmol/L 133-145 [facility] Total proteinOrdered By: Roel Gates on 05-30-2025 Protein [Mass/Vol] 6.8 g/dL 5.9-8.4 [facility] White blood cell (WBC) count Ordered By: Arthur Gates on 05-30-2025 WBC (Bld) [#/Vol] 5.8 10*3/uL 4.4-11.0 [facility] Bacteria Ur Culton Bacteria identified Cx Nom (U) ORGANISM ID: 1 >=100,000 CFU/ml Escherichia coli ORGANISM ID: 1 (ESCHERICHIA COLI) --------- ANTIBIOTIC INTERPRETATION HUSSEIN STATUS REFERENCE RANGE --------- Ampicillin S 8 F Susceptible <=8 , Intermediate >8 , Resistant >16 Cefazolin S <=4 F Susceptible 0-16 , Intermediate <0 or >16 , Resistant >16 For uncomplicated urinary tract infections, cefazolin results can be used to predict susceptibility or resistance to cephalexin. Ceftriaxone S <=1 F Susceptible <=1 , Intermediate >1 , Resistant >=4 Cefepime S <=1 F Susceptible <=2 , Susceptible-Dose Dependent >2 , Resistant >=16 Ertapenem S <=0.5 F Susceptible <=0.5 , Intermediate >.5 , Resistant >1 Meropenem S <=0.25 F Susceptible <=1 , Intermediate >1 , Resistant >2 Ampicillin/Sulbact S 4 F Susceptible <=8 , Intermediate >8 , Resistant >16 Piperacillin/Tazobac S <=4 F Susceptible <16 , Susceptible-Dose Dependent >=16 , Resistant >=32 Gentamicin S <=1 F Susceptible <=2 , Intermediate >2 , Resistant >=8 Tobramycin S <=1 F Susceptible <4 , Intermediate >=4 , Resistant >=8 Trimeth sulfameth S <=20 F Susceptible <=40 , Resistant >40 Ciprofloxacin S <=0.25 F Susceptible <0.5 , Intermediate >=.5 , Resistant >=1 Nitrofurantoin S 32 F Susceptible <=32 , Intermediate >32 , Resistant >64 Abnormal [facility] Comment on above: Performed By: #### 6 30-4 ####[facility] [id number] [place] [id number] [place] CNOVon 05-23-2025 CNOV Office Visit (FAMPWS ) TRISH HUNT ([id number]) 1945 F Date Time Provider Department 05/23/25 3:00 PM RU[facility] During your visit today, we recorded the following information about you: Pulse Respiration Blood pressure Weight 93/minute 16/minute 146/86 90.3 kg Ruba Trujillo APRN.CNP 05/23/2025 3:44 PM Signed - Meloxicam dose has been increased; take with food to protect your stomach lining. - Avoid taking any ibuprofen while on meloxicam. You may continue Tylenol as needed for extra pain relief. - If you develop heartburn or reflux contact our office. - We will monitor your kidney function with periodic labs; if results show any decline, we will pause meloxicam. - Update me in 2 weeks with an update on hand pain. Ruba Trujillo APRN.CNP 05/23/2025 5:52 PM Signed This is a 79 year old female who presents today with: Trish Hunt is an 79-year-old female with a history of cancer, presenting for follow-up of hand pain and swelling, and discussing recent weight loss. HISTORY OF PRESENT ILLNESS: Hand Pain and Swelling: - Sudden onset of severe hand pain in January, described as feeling like hands were "on fire." - Pain has improved slightly but remains significant, especially in the morning. - Pain radiates to shoulders. - Noted swelling in fingers, with tenderness at the joints. - Recent x-rays showed arthritis. - Recently started on meloxicam by [facility] at [facility], with some improvement in pain intensity. - Also using Voltaren, lidocaine, for pain relief. - Avoiding ibuprofen; taking Tylenol with some relief. - Compression gloves provide some relief. - Pain impacts ability to sam, a significant hobby. Weight Loss: - Decreased appetite, with food not tasting good. - Reports feeling content to sit and watch the world go by. - Occasional flashes of hunger but unsure of what to eat. - Noted weight of 199 lbs. (Last visit 04/25 --- 192; 04/07 -- 198). Hot Flashes: - Experiencing less frequent and shorter hot flashes. 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 Hypothyroid Lung cancer (HCC) Non-small cell carcinoma of right lung, stage 4 Metabolic syndrome Other and unspecified hyperlipidemia Overactive bladder Unspecified essential hypertension PAST SURGICAL HISTORY Procedure Laterality Date CHOLECYSTECTOMY COLONOSCOPY FLX DX W/COLLJ SPEC WHEN PFRMD 12/14/2012 Colonoscopy COLSC FLX W/RMVL OF TUMOR POLYP LESION SNARE TQ 03/18/16 multiple polyps - 3 year follow up PAST SURGICAL HISTORY OF lumbosacral nerve root decompression PAST SURGICAL HISTORY OF bladder stim SIGMOIDOSCOPY FLX DX W/COLLJ SPEC BR/WA IF PFRMD 07/05/13 Sigmoidoscopy, flexible/colonoscopy needed in 1 year ALLERGIES Codeine, Lisinopril, Morphine, Septra [Sulfamethoxazole-Trimethop rim], Sulfa (Sulfonamide Antibiotics), and Vicodin [Hydrocodone-Acetaminophen] MEDICATIONS Current Outpatient Medications Medication Sig meloxicam (MOBIC) 15 mg tablet Take 1 tablet by mouth once daily. With food. omeprazole (PRILOSEC) 20 mg capsule Take 1 capsule by mouth once daily. MYRBETRIQ 50 mg Tb24 Take 2 tablets by mouth once daily. Bisacodyl (DULCOLAX) 5 mg tab Take 5 mg by mouth as needed for constipation. Methenamine Hippurate (HIPREX) 1 gram tablet Take 1 g by mouth two times a day with meals. docusate sodium (COLACE) 100 mg capsule Can take up to six or eight at night multivitamin tablet Take 1 tablet by mouth once daily. No current facility-administered medications for this visit. FAMILY HISTORY Problem Relation Age of Onset Cancer Mother lung non smoker Coronary Artery Disease Father Cancer Sister thyroid Social History Tobacco Use Smoking status: Former Current packs/day: 0.00 Types: Cigarettes Quit date: 12/30/2008 Years since quittin.4 Smokeless tobacco: Never Vaping Use Vaping status: Never Used Substance Use Topics Alcohol use: Yes Comment: wine Drug use: No REVIEW OF SYSTEMS Constitutional: (+) decreased appetite Musculoskeletal: (+) hand pain, (+) shoulder pain, (+) finger swelling Cardiovascular: (+) ankle swelling Endocrine: (+) hot flashes EXAM: BP 146/86 Pulse 93 Resp 16 Wt 90.3 kg (199 lb) SpO2 96% BMI 34.16 kg/m? PHYSICAL EXAM: General Appearance: Well appearing, alert, in no acute distress, well-hydrated, well nourished.. Skin: Skin color, texture, turgor normal, no suspicious rashes or lesions. Head: Normocephalic, no masses, lesions, tenderness or abnormalities. Eyes: Anicteric sclera. Extraocular movements are intact. . Lungs: Lungs clear to auscultation. Decreased right base. No wheezing, rhonchi, rales.. Heart: RRR without murmur, gallop, or rubs. No ectopy. Extremities: No deformities, + 1 edema, skin (more content not included)... Normal [facility] CT ABD/PEL W IVCONon 025 CT ABD/PEL W IVCON * * *Final Report* * * DATE OF EXAM: May 04 2025 3:46PM [facility] 0530 - CT ABD/PEL W IVCON / PROCEDURE REASON: multiple diagnoses * * * * Physician Interpretation * * * * EXAMINATION: CT ABD/PEL W IVCON, CT CHEST W IVCON CLINICAL HISTORY: Weight loss Intra-abdominal and pelvic swelling, mass and lump, unspecified site Adenocarcinoma of right lung (HCC) Weight loss As per clinical note: Lung cancer. Diagnosed 7 years prior with chemotherapy and partial right middle lobectomy. TECHNIQUE: CT of the chest from the thoracic inlet to the upper abdomen was performed following IV contrast. CT of the abdomen and pelvis was performed using standard technique, scanning from just above the dome of the diaphragm to the symphysis pubis. MQ: CTCW_6; CTAP_3 Contrast: Central IV: 100 ml of Omnipaque 350 Oral: 10 ml of Omni 240 10-25ml diluted with water CT Radiation dose: Integrated Dose-length product (DLP) for this visit = 1420 mGy*cm. CT Dose Reduction Employed: Automated exposure control(AEC) and iterative recon COMPARISON: CT abdomen pelvis 03/03/2024 and prior RESULT: Limitations: None. Chest: Lines, tubes, and devices: Right chest wall Port-A-Cath. Lung parenchyma and airways: A central airways are patent. 1.3 cm spiculated soft tissue nodularity is present in the medial aspect of the right lung apex. (9, 57) A 0.3 cm nodule present in the lateral right lung apex (9, 54) Stable atelectatic changes of the right middle lobe, subpleural atelectasis involving nearly the entire basal segments of the right lower lobe as noted on 02/2024 . Mild diffuse peribronchial thickening. Mild subpleural reticulation in the anterior right upper lobe, likely posttreatment changes. Pleural space: Moderate loculated right pleural effusion with pleural thickening is unchanged. Lower neck, lymph nodes, and mediastinum: The imaged thyroid gland is normal. No axillary or supraclavicular lymphadenopathy. No mediastinal lymphadenopathy. A 2.4 cm ill-defined soft tissue in the right infrahilar region posttreatment thrombosis of the pulmonary vein as partially imaged on 02/2024. Heart, pericardium, and thoracic vessels: The thoracic aorta and main pulmonary artery are normal in caliber. The cardiac chambers are normal in size. Diffuse coronary artery calcifications are noted, although the study is not optimized for coronary assessment. No pericardial effusion or thickening. Abdomen / Pelvis: Liver: No mass. Biliary: No bile duct dilation. Stable prominence of the CBD that measures up to 1.1 cm with smooth distal tapering. Status post cholecystectomy. Spleen: No mass. No splenomegaly. Pancreas: No mass or duct dilation. Adrenals: No mass. Kidneys: Symmetric nephrograms. No hydronephrosis or nephrolithiasis. GI tract: No dilation or wall thickening. Lymph nodes: No abdominal or pelvic lymphadenopathy. Mesentery/Peritoneum: No ascites or mass. Retroperitoneum: No mass. Vasculature: - Abdominal aorta and iliac arteries: Atherosclerotic calcifications without aneurysm. - Celiac and SMA: Patent without stenosis. - Portal venous system (SMV, splenic vein, portal vein and branches): Patent. - Hepatic veins: Patent. Pelvis: No mass, ascites or fluid collection. Uterus and adnexa are unremarkable. Musculoskeletal soft tissues: Bones: Posterior thoracolumbar vertebral body fusion, unchanged fracture of T10 . Soft tissues: Unremarkable Critical Power Technician (topogram) images: No additional findings IMPRESSION: 1. A 1.5 cm spiculated nodularity in the medial right lung apex, no prior studies available for comparison. Recommend correlation with prior studies if available or follow-up versus PETCT for further evaluation. 2. 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 3. Stable loculated right pleural effusion with pleural thickening. 4. No acute findings in the abdomen or pelvis. 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 Date/Time: May 10 2025 11:53A Dictated by : TIMOTHY MANN MD This examination was interpreted and the report reviewed and electronically signed by: TIMOTHY MANN MD on May 10 2025 12:11PM EST [id number] Normal [facility] CT CHEST W IVCONon CT CHEST W IVCON * * *Final Report* * * DATE OF EXAM: May 04 2025 3:46PM [facility] 0539 - CT CHEST W IVCON / PROCEDURE REASON: multiple diagnoses * * * * Physician Interpretation * * * * EXAMINATION: CT ABD/PEL W IVCON, CT CHEST W IVCON CLINICAL HISTORY: Weight loss Intra-abdominal and pelvic swelling, mass and lump, unspecified site Adenocarcinoma of right lung (HCC) Weight loss As per clinical note: Lung cancer. Diagnosed 7 years prior with chemotherapy and partial right middle lobectomy. TECHNIQUE: CT of the chest from the thoracic inlet to the upper abdomen was performed following IV contrast. CT of the abdomen and pelvis was performed using standard technique, scanning from just above the dome of the diaphragm to the symphysis pubis. MQ: CTCW_6; CTAP_3 Contrast: Central IV: 100 ml of Omnipaque 350 Oral: 10 ml of Omni 240 10-25ml diluted with water CT Radiation dose: Integrated Dose-length product (DLP) for this visit = 1420 mGy*cm. CT Dose Reduction Employed: Automated exposure control(AEC) and iterative recon COMPARISON: CT abdomen pelvis 03/03/2024 and prior RESULT: Limitations: None. Chest: Lines, tubes, and devices: Right chest wall Port-A-Cath. Lung parenchyma and airways: A central airways are patent. 1.3 cm spiculated soft tissue nodularity is present in the medial aspect of the right lung apex. (9, 57) A 0.3 cm nodule present in the lateral right lung apex (9, 54) Stable atelectatic changes of the right middle lobe, subpleural atelectasis involving nearly the entire basal segments of the right lower lobe as noted on 02/2024 . Mild diffuse peribronchial thickening. Mild subpleural reticulation in the anterior right upper lobe, likely posttreatment changes. Pleural space: Moderate loculated right pleural effusion with pleural thickening is unchanged. Lower neck, lymph nodes, and mediastinum: The imaged thyroid gland is normal. No axillary or supraclavicular lymphadenopathy. No mediastinal lymphadenopathy. A 2.4 cm ill-defined soft tissue in the right infrahilar region posttreatment thrombosis of the pulmonary vein as partially imaged on 02/2024. Heart, pericardium, and thoracic vessels: The thoracic aorta and main pulmonary artery are normal in caliber. The cardiac chambers are normal in size. Diffuse coronary artery calcifications are noted, although the study is not optimized for coronary assessment. No pericardial effusion or thickening. Abdomen / Pelvis: Liver: No mass. Biliary: No bile duct dilation. Stable prominence of the CBD that measures up to 1.1 cm with smooth distal tapering. Status post cholecystectomy. Spleen: No mass. No splenomegaly. Pancreas: No mass or duct dilation. Adrenals: No mass. Kidneys: Symmetric nephrograms. No hydronephrosis or nephrolithiasis. GI tract: No dilation or wall thickening. Lymph nodes: No abdominal or pelvic lymphadenopathy. Mesentery/Peritoneum: No ascites or mass. Retroperitoneum: No mass. Vasculature: - Abdominal aorta and iliac arteries: Atherosclerotic calcifications without aneurysm. - Celiac and SMA: Patent without stenosis. - Portal venous system (SMV, splenic vein, portal vein and branches): Patent. - Hepatic veins: Patent. Pelvis: No mass, ascites or fluid collection. Uterus and adnexa are unremarkable. Musculoskeletal soft tissues: Bones: Posterior thoracolumbar vertebral body fusion, unchanged fracture of T10 . Soft tissues: Unremarkable Critical Power Technician (topogram) images: No additional findings IMPRESSION: 1. A 1.5 cm spiculated nodularity in the medial right lung apex, no prior studies available for comparison. Recommend correlation with prior studies if available or follow-up versus PETCT for further evaluation. 2. 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 3. Stable loculated right pleural effusion with pleural thickening. 4. No acute findings in the abdomen or pelvis. 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 Date/Time: May 10 2025 11:53A Dictated by : TIMOTHY MANN MD This examination was interpreted and the report reviewed and electronically signed by: TIMOTHY MANN MD on May 10 2025 12:11PM EST [id number] Normal [facility] CNPNon 05-02-2025 MARLENAN Telephone (AGATA) TRISH HUNT ([id number]) 1945 F Date Time Provider Department 05/02/25 ENEIDA YARBROUGH During your visit today, we recorded the following information about you: Emma Whitehead PSS 05/02/2025 4:37 PM Signed Pt would like to use port for appt on on 05/04/[address] prep @ 2:20 scan 3:20 Please call pt to confirm time Mellisa Araya 05/03/2025 8:09 AM Signed Scheduled port access for imaging Mellisa Araya Allergies As of Date: 05/02/2025 Noted Allergy Reaction CODEINE 10/13/2005 11 - Vomiting LISINOPRIL 05/24/2013 3 - Cough Comments: throat tickle MORPHINE 12/24/2018 1 - Mental Status Change Comments: sedation SEPTRA (SULFAMETHOXAZOLE-TRIMETHO* 10/13/2005 SULFA (SULFONAMIDE ANTIBIOTICS) 10/13/2005 VICODIN (HYDROCODONE-ACETAMINOPHE*1 11/28/2011 8 - GI Upset Date Reviewed: 04/25/2025 Reviewed by: Eyad Umaña LPN - Fully Assessed Reason for Visit: Appointment [186] Prescriptions as of 05/03/2025 - omeprazole (PRILOSEC) 20 mg capsule Take 1 capsule by mouth once daily. - MYRBETRIQ 50 mg Tb24 Take 2 tablets by mouth once daily. - Bisacodyl (DULCOLAX) 5 mg tab Take 5 mg by mouth as needed for constipation. - Methenamine Hippurate (HIPREX) 1 gram tablet Take 1 g by mouth two times a day with meals. - docusate sodium (COLACE) 100 mg capsule Can take up to six or eight at night - multivitamin tablet Take 1 tablet by mouth once daily. Problem List As Of Date 05/02/2025 Noted Resolved TOBACCO USE DISORDER [F17.200] 06/10/2006 LUMBAR DISC DISPLACEMENT [M51.26] Mixed hyperlipidemia [E78.2] Essential hypertension [I10] Obstructive chronic bronchitis with exacerbatio*01/27/2009 12/27/2016 Edema [R60.9] 06/29/2009 01/23/2010 VITAMIN D DEFICIENCY NOS [E55.9] 06/29/2009 Edema Leg [R60.0] 07/30/2009 Calcaneal Spur [M77.30] 08/15/2009 Bite from cat [W55.01XA] 01/23/2010 12/27/2016 Hepatomegaly [R16.0] 08/26/2010 12/27/2016 Fatty liver [K76.0] 09/27/2010 Plantar fasciitis [M72.2] 09/27/2010 12/27/2016 Chronic bronchitis [J42] 04/01/2011 Occult blood positive stool [R19.5] 10/12/2012 12/27/2016 Benign neoplasm of colon [D12.6] 12/14/2012 Medicare annual wellness visit, initial [Z00.00]06/29/2014 12/27/2016 Abnormal ultrasound of breast [R92.8] 09/14/2015 12/27/2016 Personal history of colonic polyps [Z86.0100] 02/27/2016 12/27/2016 Polyp of colon [K63.5] 03/27/2016 12/27/2016 Hyperglycemia [R73.9] 06/04/2016 12/27/2016 Metabolic syndrome [E88.810] 06/04/2016 08/02/2018 Hypothyroid [E03.9] Diabetes (HCC) [E11.9] 09/11/2017 Obesity, Class III, BMI 40-49.9 (morbid obesity*03/19/2018 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] 12/24/2018 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] 12/24/2018 Compression fracture of body of thoracic verteb*12/24/2018 Acute kidney failure, unspecified (HCC) [N17.9] 12/04/2018 Acute posthemorrhagic anemia [D62] 12/04/2018 Anemia [D64.9] 02/25/2023 Arthrodesis status [Z98.1] 12/15/2018 Atrophy of skin [L90.9] 02/25/2023 Backache [M54.9] 02/25/2023 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 pneumoniae) as the ca*12/04/2018 Localized enlarged lymph nodes [R59.0] 12/04/2018 jail (current) use of oral hypoglycemic dr*12/04/2018 Lung mass [R91.8] 02/25/2023 Morbid obesity (HCC) [E66.01] 12/04/2018 Neoplasm related pain (acute) (chronic) [G89.3] 12/04/2018 Non-small cell carcinoma of lung, stage 4 (HCC)*12/17/2018 Nosocomial condition [Y95] 12/04/2018 Other abnormal findings in urine [R82.998] 05/13/2018 Other abnormal glucose [R73.09] 09/29/2017 Overactive bladder [N32.81] 12/04/2018 Pathological fracture of vertebrae in neoplasti*12/04/2018 Personal history of nicotine dependence [Z87.89*12/04/2018 Pleural effusion [J90] 12/04/2018 Pneumonia, unspecified organism [J18.9] 12/04/2018 Pneumonitis [J98.4] 02/25/2023 Radiation sickness [T66.XXXA] 12/29/2018 Rash [R21] 02/25/2023 Malignant neoplasm of unspecified part of right*12/04/2018 Shortness of breath [R06.02] 11/10/2018 Spinal stenosis, thoracic region [M48.04] 12/04/2018 Unspecified Escherichia coli (E. coli) as the c*12/04/2018 Urge incontinence [N39.41] 09/29/2017 Urinary tract infection, site not specified [N3*12/04/2018 Disseminated malignant neoplasm (HCC) [C80.0] 12/29/2018 Encounter Status:Closed by MELLISA ARAYA on 05/03/25 Normal [facility] Hemoccult Stl Ql IAon 2024 Lower GI hemoglobin IA Ql (Stl) Negative Normal Negative [facility] Comment on above: Order Comment: Speci men Type: STOOL SPECIMENOrdering Facility: [facility] Address: [address] [place] [address] Performed By: #### 2 9771-3 ####[facility] LABCLIA [id number] [place] [address] [place] Urinalysis complete panel (U )on 04-26-2025 Bacteria uL uL High - 941 uL [facility] Bilirubin Ql (U) Negative Negative [facility] Clarity (Unsp spec) Cloudy Abnormal Clear [facility] Color (U) Dark Yellow Abnormal Yellow [facility] Epithelial cells LM.HPF (Urine sed) [#/Area] Few /HPF [facility] Epithelial cells LM.HPF (Urine sed) [#/Area] Moderate Abnormal None Seen /HPF [facility] Glucose Test strip (U) [Mass/Vol] Negative Negative [facility] Hemoglobin Ql (U) Trace Abnormal Negative [facility] Hyaline casts (Urine sed) [#/Area] 4-10 /LPF Abnormal 0 /LPF [facility] Interpretation and review of laboratory results Abnormal [facility] Ketones Ql (U) Negative Negative [facility] Leukocyte esterase Test strip Ql (U) 2+ Abnormal Negative [facility] Nitrite Ql (U) Positive Abnormal Negative [facility] pH (U) 6 [pH] NINF - 8.5 [facility] Protein (U) [Mass/Vol] 2+ Abnormal Negative [facility] RBC LM.HPF (Urine sed) [#/Area] 0-2 /HPF 0-2 /HPF [facility] Specific gravity (U) [Rel density] 1.028 1.005 - 1.030 [facility] Urobilinogen Ql (U) 0.2 EU/dL 0.2-1.0 EU/dL [facility] WBC LM.HPF (Urine sed) [#/Area] /[HPF] Abnormal 0-5 /HPF [facility] Result rechecked This test was developed and its performance characteristics determined by [facility]'s [facility] Pathology and Laboratory Medicine [place] [facility] It has not been cleared or approved by the FDA. -[facility] is regulated under CLIA as qualified to perform high-complexity testing. This test is used for clinical purposes. It should not be regarded as investigational or for research. [facility] C-REACTIVE PROTEINon 025 CRP [Mass/Vol] 1 mg/dL High NINF - 0.9 mg/dL [facility] CNOVon 04-25-2025 CNOV Office Visit (FAMPWS ) TRISH HUNT ([id number]) 1945 F Date Time Provider Department 04/25/25 2:20 PM [facility] During your visit today, we recorded the following information about you: Pulse Respiration Blood pressure Weight 98/minute 16/minute 152/80 87.1 kg Ruba Trujillo APRN.CNP 04/25/2025 3:28 PM Signed - Start omeprazole (Prilosec) 20 mg by mouth once daily to protect your stomach from the anti-inflammatory medication. - Obtain wrist cock-up splints for both hands and wear them at night (and during crocheting or similar activities) to relieve carpal tunnel pressure. - Get additional labwork completed. - CT scans ordered. - Complete the stool occult blood test as ordered to check for hidden gastrointestinal bleeding. - Decrease the ibuprofen use, as it is hard on the kidneys and stomach. Add tylenol into the regimen. -Recheck in 1 month Ruba Trujillo APRN.CNP 04/25/2025 6:26 PM Signed This is a 79 year old female who presents today with: Trish Hunt is an 79-year-old female with a history of lung cancer, accompanied by her daughter, presenting for evaluation of subclinical hypothyroidism, hot flashes, and bilateral hand pain. HISTORY OF PRESENT ILLNESS: Subclinical Hypothyroidism: - Recent lab work showed slightly elevated TSH with normal thyroid hormone levels. - No previous history of thyroid issues. - Reports fatigue and decreased energy levels over the past two months. - Decreased appetite and weight loss noted; current weight is 192 lbs, down from 198 lbs on 04/07. - Denies dizziness, syncope, or headaches. Hot Flashes: - Onset around the beginning of the year, with increasing frequency and intensity. - Experiences 5-6 episodes per day, lasting 3-5 minutes each. - Triggered by physical warmth, such as after a shower. - Episodes accompanied by sweating and a sensation of heat in the head. - Denies associated dizziness or shakiness. Bilateral Hand Pain: - Pain in hands and wrists, worsening over the past month. - Unable to sam due to pain, which has been present for about 1.5 months. - Describes pain as similar to a toothache, with occasional shooting sensations. - Pain has progressed up the arm. - No numbness or tingling reported. - Taking ibuprofen 200 mg, four tablets TID for the past month with some relief; denies effectiveness of Tylenol. Lung Cancer: - Diagnosed 7 years ago, treated with chemotherapy. - Partial right middle lobectomy performed. - Regular follow-ups with Dr. Jimenez, last seen in May of the previous year. - Scheduled for a port flush next week and a follow-up appointment on May 30. Urinary Incontinence: - Recently started on Myrbetriq and a low-dose antibiotic by Dr. Herman. - Previously on oxybutynin for years, discontinued last summer or early fall. - Reports frequent urination with variable volume; denies dysuria. Diet: - Decreased appetite, leading to weight loss. - Consumes beef jerky, dried cranberries, and trail mix. - Drinks water regularly. - Takes Senokot and Dulcolax for regular bowel movements; denies diarrhea or constipation. - Occasional hematochezia attributed to hemorrhoids; denies melena. Family Support: - Relies on daughters for support and transportation. - for 66 years; also has mobility issues. 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 Hypothyroid Lung cancer (HCC) Non-small cell carcinoma of right lung, stage 4 Metabolic syndrome Other and unspecified hyperlipidemia Overactive bladder Unspecified essential hypertension PAST SURGICAL HISTORY Procedure Laterality Date CHOLECYSTECTOMY COLONOSCOPY FLX DX W/COLLJ SPEC WHEN PFRMD 12/14/2012 Colonoscopy COLSC FLX W/RMVL OF TUMOR POLYP LESION SNARE TQ 03/18/16 multiple polyps - 3 year follow up PAST SURGICAL HISTORY OF lumbosacral nerve root decompression PAST SURGICAL HISTORY OF bladder stim SIGMOIDOSCOPY FLX DX W/COLLJ SPEC BR/WA IF PFRMD 07/05/13 Sigmoidoscopy, flexible/colonoscopy needed in 1 year ALLERGIES Codeine, Lisinopril, Morphine, Septra [Sulfamethoxazole-Trimethop rim], Sulfa (Sulfonamide Antibiotics), and Vicodin [Hydrocodone-Acetaminophen] MEDICATIONS Current Outpatient Medications Medication Sig MYRBETRIQ 50 mg Tb24 Take 2 tablets by mouth once daily. iv contrast (will be provided with radiology test) CT Chest ABD/PEL-Inject, intravenously, once for 1 dose.No IV access, insert saline lock prior to the beginning of sedation, infusion, injection of imaging exam. Discontinue saline lock post exam. If Pt. has a central line or IVAD, may access for administration according to line specific nursing protocol. Once exam is complete flush line and de-access according to line specif (more content not included)... Normal [facility] CRP SerPl-mCncon 04-25-2025 CRP [Mass/Vol] 1.0 mg/dL High <0.9 [facility] Comment on above: Order Comment: Speci men Type: BLOOD SPECIMENOrdering Facility: [facility] Address: [address] [place] [address] Performed By: #### 2 4323-8, 3016-3, 1987-, 302-7 ####[facility] LABCLIA [id number] [place] [address] [place] [employer] [facility] Comprehensive metabolic 2000 panelon 04-25-2025 Albumin [Mass/Vol] 3.8 g/dL Low 3.9 - 4.9 g/dL [facility] ALP [Catalytic activity/Vol] 39 U/L 34 - 123 U/L [facility] ALT [Catalytic activity/Vol] 7 U/L 7 - 38 U/L [facility] Anion gap [Moles/Vol] 9 mmol/L 8 - 15 mmol/L [facility] AST [Catalytic activity/Vol] 16 U/L 13 - 35 U/L [facility] Bilirubin [Mass/Vol] 0.3 mg/dL 0.2 - 1 .3 mg/dL [facility] Calcium [Mass/Vol] 9.2 mg/dL 8.5 - 10. 2 mg/dL [facility] Chloride [Moles/Vol] 104 mmol/L 98 - 10 7 mmol/L [facility] CO2 [Moles/Vol] 28 mmol/L 22 - 30 mmol/L [facility] Creatinine [Mass/Vol] 0.84 mg/dL 0.58 - 0.96 mg/dL [facility] GFR/1.73 sq M.predicted among non-blacks MDRD (S/P/Bld) [Vol rate/Area] 70 mL/min/{1.73_m2} - PINF [facility] Comment on above: Estimated Glomerular Filtration Rate (eGFR) is calculated using the 2020 CKD-EPI creatinine equation. This equation utilizes serum creatinine, sex, and age as parameters. The creatinine assay has traceable calibration to isotope dilution-mass spectrometry. Refer to KDIGO guidelines for clinical interpretation. In patients with unstable renal function, e.g. those with acute kidney injury, the eGFR may not accurately reflect actual GFR. Glucose [Mass/Vol] 108 mg/dL High 74 - 99 mg/dL [facility] Comment on above: The [place] Diabete s Association (ADA) provides guidance for cutoff values for fasting glucose and random glucose. The ADA defines fasting as no caloric intake for at least 8 hours. Fasting plasma glucose results between 100 to 125 mg/dL indicate increased risk for diabetes (prediabetes). Fasting plasma glucose results greater than or equal to 126 mg/dL meet the criteria for diagnosis of diabetes. In the absence of unequivocal hyperglycemia, results should be confirmed by repeat testing. In a patient with classic symptoms of hyperglycemia or hyperglycemic crisis, random plasma glucose results greater than or equal to 200 mg/dL meet the criteria for diagnosis of diabetes. Reference: Standards of Medical Care in Diabetes 2016, [place] Diabetes Association. Diabetes Care. 2016.39(Suppl 1). Potassium [Moles/Vol] 4.3 mmol/L 3.7 - 5.1 mmol/L [facility] Protein [Mass/Vol] 7.5 g/dL 6.3 - 8.0 g/dL [facility] Sodium [Moles/Vol] 141 mmol/L 136 - 144 mmol/L [facility] Urea nitrogen [Mass/Vol] 21 mg/dL 7 - 21 mg/dL [facility] Albumin [Mass/Vol] 3.8 g/dL Low 3.9-4.9 [facility] Comment on above: Order Comment: Speci men Type: BLOOD SPECIMENOrdering Facility: [facility] Address: [address] [place] [address] Performed By: #### 2 4323-8, 3016-01, 3024-05 ####[facility] LABCLIA [id number] [place] [address] [place] ALP [Catalytic activity/Vol] 39 U/L Normal 34-123 [facility] Comment on above: Order Comment: Speci men Type: BLOOD SPECIMENOrdering Facility: [facility] Address: [address] [place] [address] Performed By: #### 2 4323-8, 3016-01, 1988-03, 3024-05 ####[facility] LABCLIA [id number] [address] [address] [place] ALT [Catalytic activity/Vol] 7 U/L Normal 7-38 [facility] Comment on above: Order Comment: Speci men Type: BLOOD SPECIMENOrdering Facility: [facility] Address: [address] [place] [address] Performed By: #### 2 4323-8, 3016-01, 1988-03, 3024-05 ####[facility] LABCLIA [id number] [address] [address] [place] Anion gap [Moles/Vol] 9 mmol/L Normal 8-15 [facility] Comment on above: Order Comment: Speci men Type: BLOOD SPECIMENOrdering Facility: [facility] Address: [address] [place] [address] Performed By: #### 2 4323-8, 3016-01, 1988-03, 3024-05 ####[facility] LABCLIA [id number] [address] [address] [place] AST [Catalytic activity/Vol] 16 U/L Normal 13-35 [facility] Comment on above: Order Comment: Speci men Type: BLOOD SPECIMENOrdering Facility: [facility] Address: [address] [place], [place] [address] Performed By: #### 2 4323-8, 3016-01, 1988-03, 3024-05 ####[facility] LABCLIA [id number] [address] [address] [place] Bilirubin [Mass/Vol] 0.3 mg/dL Normal 0.2-1.3 [facility] Comment on above: Order Comment: Speci men Type: BLOOD SPECIMENOrdering Facility: [facility] Address: [address] [place] [address] Performed By: #### 2 4323-8, 3016-01, 1988-03, 3024-05 ####[facility] LABCLIA [id number] [address] [address] [place] Calcium [Mass/Vol] 9.2 mg/dL Normal 8.5-10.2 [facility] Comment on above: Order Comment: Speci men Type: BLOOD SPECIMENOrdering Facility: [facility] Address: [address] [place] [address] Performed By: #### 2 4323-8, 3016-01, 1988-03, 3024-05 ####[facility] LABCLIA [id number] [address] [address] [place] Chloride [Moles/Vol] 104 mmol/L Normal 98-107 [facility] Comment on above: Order Comment: Speci men Type: BLOOD SPECIMENOrdering Facility: [facility] Address: [address] [place] [address] Performed By: #### 2 4323-8, 3016-01, 1988-03, 3024-05 ####[facility] LABCLIA [id number] [address] [address] [place] CO2 [Moles/Vol] 28 mmol/L Normal 22-30 [facility] Comment on above: Order Comment: Speci men Type: BLOOD SPECIMENOrdering Facility: [facility] Address: [address] [place], [place] [address] Performed By: #### 2 4323-8, 3016-01, 1988-03, 3024-05 ####[facility] LABCLIA [id number] [address] [address] [place] Creatinine [Mass/Vol] 0.84 mg/dL Normal 0.58-0.96 [facility] Comment on above: Order Comment: Speci men Type: BLOOD SPECIMENOrdering Facility: [facility] Address: [address] [place] [address] Performed By: #### 2 4323-8, 3016-01, 1988-03, 3024-05 ####[facility] LABCLIA [id number] [address] [place] Creatinine and Glomerular filtration rate.predicted panel (S/P/Bld) 70 mL/min/1.73m??? Normal >=60 [facility] Comment on above: Order Comment: Robert weber Type: BLOOD SPECIMENOrdering Facility: [facility] Address: [address] [place] [address] Result Comment: Faye mated Glomerular Filtration Rate (eGFR) is calculated using the 2020 CKD-EPI creatinine equation. This equation utilizes serum creatinine, sex, and age as parameters. The creatinine assay has traceable calibration to isotope dilution-mass spectrometry. Refer to KDIGO guidelines for clinical interpretation. In patients with unstable renal function, e.g. those with acute kidney injury, the eGFR may not accurately reflect actual GFR. Performed By: #### 2 4323-8, 3016-01, 1988-03, 3024-05 ####[facility] [id number] [place] [address] [place] Glucose [Mass/Vol] 108 mg/dL High 74-99 [facility] Comment on above: Order Comment: Robert weber Type: BLOOD SPECIMENOrdering Facility: [facility] Address: [address] [place] [address] Result Comment: The [place] Diabetes Association (ADA) provides guidance for cutoff values for fasting glucose and random glucose. The ADA defines fasting as no caloric intake for at least 8 hours. Fasting plasma glucose results between 100 to 125 mg/dL indicate increased risk for diabetes (prediabetes). Fasting plasma glucose results greater than or equal to 126 mg/dL meet the criteria for diagnosis of diabetes. In the absence of unequivocal hyperglycemia, results should be confirmed by repeat testing. In a patient with classic symptoms of hyperglycemia or hyperglycemic crisis, random plasma glucose results greater than or equal to 200 mg/dL meet the criteria for diagnosis of diabetes. Reference: Standards of Medical Care in Diabetes 2016, [place] Diabetes Association. Diabetes Care. 2016.39(Suppl 1). Performed By: #### 2 4323-8, 3016-01, 1988-03, 3024-05 ####[facility] LABIA [id number] [address] [address] [place] Potassium [Moles/Vol] 4.3 mmol/L Normal 3.7-5.1 [facility] Comment on above: Order Comment: Speci men Type: BLOOD SPECIMENOrdering Facility: [facility] Address: [address] [place], [place] [address] Performed By: #### 2 4323-8, 3016-01, 1988-03, 3024-05 ####[facility] LABCLIA [id number] [address] [address] [place] Protein [Mass/Vol] 7.5 g/dL Normal 6.3-8.0 [facility] Comment on above: Order Comment: Speci men Type: BLOOD SPECIMENOrdering Facility: [facility] Address: [address] [place], [place] [address] Performed By: #### 2 4323-8, 3016-01, 1988-03, 3024-05 ####[facility] LABIA [id number] [address] [address] [place] Sodium [Moles/Vol] 141 mmol/L Normal 136-144 [facility] Comment on above: Order Comment: Speci men Type: BLOOD SPECIMENOrdering Facility: [facility] Address: [address] [place], [place] [address] Performed By: #### 2 4323-8, 3016-01, 1990-03, 3024-05 ####[facility] LABCLIA [id number] [address] [address] [place] Urea nitrogen [Mass/Vol] 21 mg/dL Normal 7-21 [facility] Comment on above: Order Comment: Speci men Type: BLOOD SPECIMENOrdering Facility: [facility] Address: [address] [place], [place] [address] Performed By: #### 2 4323-8, 3016-01, 1988-03, 3024-05 ####[facility] LABCLIA [id number] [address] [address] [place] No Panel Informationon 04-25 Interpretation and review of laboratory results Normal [facility] Interpretation and review of laboratory results Abnormal [facility] T4 FREE/FREE THYROXINEon Free T4 [Mass/Vol] 1.3 ng/dL 0.9 - 1.7 ng/dL [facility] T4 Free SerPl-mCncon 025 Free T4 [Mass/Vol] 1.3 ng/dL Normal 0.9-1.7 [facility] Comment on above: Order Comment: Speci men Type: BLOOD SPECIMENOrdering Facility: [facility] Address: [address] [place] [address] Performed By: #### 2 4323-8, 3016-01, 1988-03, 3024-05 ####[facility] LABCLIA [id number] [address], [facility] [place] THYROID STIMULATING HORMONEo n 04-25-2025 TSH Qn 3.54 m[IU]/L [facility] TSH SerPl-aCncon 04-25-2025 TSH Qn 3.540 m[IU]/L Normal 0.270-4.20 0 [facility] Comment on above: Order Comment: Speci men Type: BLOOD SPECIMENOrdering Facility: [facility] Address: [address] [place], [place] [address] Performed By: #### 2 4323-8, 3016-01, 1988-03, 3024-05 ####[facility] LABCLIA [id number] [address] [place] [address] [place] Urinalysis complete panel (U )on 04-25-2025 BACTERIA UL >9821 High Negative [facility] Comment on above: Order Comment: Speci men Type: URINE SPECIMENOrdering Facility: [facility] Address: [address] [place] [address] Performed By: #### 2 4356-8 ####[facility] LABCLIA [id number] [place] [id number] [place] Bilirubin Ql (U) Negative Normal Negative [facility] Comment on above: Order Comment: Speci men Type: URINE SPECIMENOrdering Facility: [facility] Address: [address] [place] [address] Performed By: #### 2 4356-8 ####[facility] LABCLIA [id number] [place] [address] [place] Clarity (Unsp spec) Cloudy Abnormal Clear [facility] Comment on above: Order Comment: Speci men Type: URINE SPECIMENOrdering Facility: [facility] Address: [address] [place] [address] Performed By: #### 2 4356-8 ####[facility] LABCLIA [id number] [place] [address] [place] [facility] Color (U) Dark Yellow Abnormal Yellow [facility] Comment on above: Order Comment: Speci men Type: URINE SPECIMENOrdering Facility: [facility] Address: [address] [place] [address] Performed By: #### 2 4356-8 ####[facility] LABCLIA [id number] [place] [address] [place] Epithelial cells LM.HPF (Urine sed) [#/Area] Few Normal [facility] Comment on above: Order Comment: Speci men Type: URINE SPECIMENOrdering Facility: [facility] Address: [address] [place] [address] Result Comment: Mode rate Performed By: #### 2 4356-8 ####[facility] LABCLIA [id number] [place] [id number] [place] Glucose Test strip (U) [Mass/Vol] Negative Normal Negative [facility] Comment on above: Order Comment: Speci men Type: URINE SPECIMENOrdering Facility: [facility] Address: [address] [place] [address] Performed By: #### 2 4356-8 ####[facility] LABCLIA [id number] [address] [place] [address] [place] Hemoglobin Ql (U) Trace Abnormal Negative [facility] Comment on above: Order Comment: Speci men Type: URINE SPECIMENOrdering Facility: [facility] Address: [address] [place] [address] Performed By: #### 2 4356-8 ####[facility] LABCLIA [id number] [address], [place] [address] [place] Hyaline casts (Urine sed) [#/Area] 4-10 /LPF Abnormal 0 /LPF [facility] Comment on above: Order Comment: Speci men Type: URINE SPECIMENOrdering Facility: [facility] Address: [address] [place] [address] Performed By: #### 2 4356-8 ####[facility] LABCLIA [id number] [place] [address] [place] Ketones Ql (U) Negative Normal Negative [facility] Comment on above: Order Comment: Speci men Type: URINE SPECIMENOrdering Facility: [facility] Address: [address] [place] [address] Performed By: #### 2 4356-8 ####[facility] LABCLIA [id number] [place] [address] [place] Leukocyte esterase Test strip Ql (U) 2+ Abnormal Negative [facility] Comment on above: Order Comment: Speci men Type: URINE SPECIMENOrdering Facility: [facility] Address: [address] [place] [address] Performed By: #### 2 4356-8 ####[facility] LABCLIA [id number] [place] [id number] [place] Nitrite Ql (U) Positive Abnormal Negative [facility] Comment on above: Order Comment: Speci men Type: URINE SPECIMENOrdering Facility: [facility] Address: [address] [place] [address] Performed By: #### 2 4356-8 ####[facility] LABIA [id number] [place] [address] [place] pH (U) 6.0 [pH] Normal <8.5 [facility] Comment on above: Order Comment: Speci men Type: URINE SPECIMENOrdering Facility: [facility] Address: [address] [place] [address] Performed By: #### 2 4356-8 ####[facility] LABIA [id number] [place] [address] [place] Protein (U) [Mass/Vol] 2+ Abnormal Negative Cl [facility] Comment on above: Order Comment: Speci men Type: URINE SPECIMENOrdering Facility: [facility] Address: [address] [place] [address] Performed By: #### 2 4356-8 ####[facility] LABIA [id number] [place] [address] [place] RBC LM.HPF (Urine sed) [#/Area] 0-2 /HPF Normal 0-2 /HPF [facility] Comment on above: Order Comment: Speci men Type: URINE SPECIMENOrdering Facility: [facility] Address: [address] [place] [address] Performed By: #### 2 4356-8 ####[facility] LABIA [id number] [place] [address] [place] Specific gravity (U) [Rel density] 1.028 Normal 1.005-1.03 0 [facility] Comment on above: Order Comment: Speci men Type: URINE SPECIMENOrdering Facility: [facility] Address: [address] [place] [address] Performed By: #### 2 4356-8 ####[facility] LABIA [id number] [place] [address] [place] Urobilinogen Ql (U) 0.2 EU/dL Normal 0.2-1.0 EU/dL [facility] Comment on above: Order Comment: Speci men Type: URINE SPECIMENOrdering Facility: [facility] Address: [address] [place] [address] Performed By: #### 2 4356-8 ####[facility] LABIA [id number] [place] [address] [place] WBC LM.HPF (Urine sed) [#/Area] /[HPF] Abnormal 0-5 /HPF [facility] Comment on above: Order Comment: Speci men Type: URINE SPECIMENOrdering Facility: [facility] Address: [address] [place] [address] Performed By: #### 2 4356-8 ####[facility] LABIA [id number] [place] [address] [place] CBC W Auto Differential pane l (Bld)on 04-07-2025 Basophils (Bld) [#/Vol] 0.04 10*3/uL Normal <0.11 [facility] Comment on above: Order Comment: Speci men Type: BLOOD SPECIMENOrdering Facility: [facility] Address: [address] [place] [address] Performed By: #### 5 7021-8 ####[facility] JACKSONVILLETAYLIA [id number] [place] [address] [place] Basophils/100 WBC (Bld) 0.6 % Normal [facility] Comment on above: Order Comment: Speci men Type: BLOOD SPECIMENOrdering Facility: [facility] Address: [address] [place] [address] Performed By: #### 5 7021-8 ####[facility] JACKSONVILLENCLIA [id number] [place] [address] [place] Differential cell count method Nom (Bld) Auto Normal [facility] Comment on above: Order Comment: Speci men Type: BLOOD SPECIMENOrdering Facility: [facility] Address: [address] [place] [address] Performed By: #### 5 7021-8 ####[facility] JAGDISHEUGENIOTONEYCelia [id number] [place] [address] [place] Eosinophils (Bld) [#/Vol] 0.20 10*3/uL Normal <0.46 [facility] Comment on above: Order Comment: Speci men Type: BLOOD SPECIMENOrdering Facility: [facility] Address: [address] [place] [address] Performed By: #### 5 7021-8 ####[facility] [id number] [place] [address] [place] Eosinophils/100 WBC (Bld) 3.1 % Normal [facility] Comment on above: Order Comment: Speci men Type: BLOOD SPECIMENOrdering Facility: [facility] Address: [address] [place] [address] Performed By: #### 5 7021-8 ####[facility]ACKSONVILLEREZA [id number] [place] [address] [place] Erythrocyte distribution width (RBC) [Ratio] 13.9 % Normal 11.5-15.0 [facility] Comment on above: Order Comment: Speci men Type: BLOOD SPECIMENOrdering Facility: [facility] Address: [address] [place] [address] Performed By: #### 5 7021-8 ####[facility] CENTERLIA [id number] [place] [address] [place] Hematocrit (Bld) [Volume fraction] 42.5 % Normal 36.0-46.0 [facility] Comment on above: Order Comment: Speci men Type: BLOOD SPECIMENOrdering Facility: [facility] Address: [address] [place] [address] Performed By: #### 5 7021-8 ####[facility]ENC[facility] ROOMWNCLIA [id number] [place] [address] [place] Hemoglobin (Bld) [Mass/Vol] 13.4 g/dL Normal 11.5-15.5 [facility] Comment on above: Order Comment: Speci men Type: BLOOD SPECIMENOrdering Facility: [facility] Address: [address] [place] [address] Performed By: #### 5 7021-8 ####[facility] CENTERLIA [id number] [place] [address] [place] Immature granulocytes (Bld) [#/Vol] 0.04 10*3/uL Normal <0.10 [facility] Comment on above: Order Comment: Speci men Type: BLOOD SPECIMENOrdering Facility: [facility] Address: [address] [place] [address] Performed By: #### 5 7021-8 ####[facility] [id number] [place] [address] [place] Immature granulocytes/100 WBC (Bld) 0.6 % Normal [facility] Comment on above: Order Comment: Speci men Type: BLOOD SPECIMENOrdering Facility: [facility] Address: [address] [place] [address] Performed By: #### 5 7021-8 ####[facility] [id number] [place] [address] [place] Lymphocytes (Bld) [#/Vol] 0.90 10*3/uL Low 1.00-4.00 [facility] Comment on above: Order Comment: Speci men Type: BLOOD SPECIMENOrdering Facility: [facility] Address: [address] [place] [address] Performed By: #### 5 7021-8 ####[facility]ACKSONVILLENCLIA [id number] [place] [address] [place] Lymphocytes/100 WBC (Bld) 14.0 % Normal [facility] Comment on above: Order Comment: Speci men Type: BLOOD SPECIMENOrdering Facility: [facility] Address: [address] [place] [address] Performed By: #### 5 7021-8 ####[facility] [id number] [place] [address] [place] MCH (RBC) [Entitic mass] 30.2 pg Normal 26.0-34.0 [facility] Comment on above: Order Comment: Speci men Type: BLOOD SPECIMENOrdering Facility: [facility] Address: [address] [place] [address] Performed By: #### 5 7021-8 ####[facility] [id number] [place] [address] [place] MCHC (RBC) [Mass/Vol] 31.5 g/dL Normal 30.5-36.0 [facility] Comment on above: Order Comment: Speci men Type: BLOOD SPECIMENOrdering Facility: [facility] Address: [address] [place] [address] Performed By: #### 5 7021-8 ####[facility] JACKSONVILLENCLIA [id number] [place] [address] [place] MCV (RBC) [Entitic vol] 95.9 fL Normal 80.0-100.0 [facility] Comment on above: Order Comment: Speci men Type: BLOOD SPECIMENOrdering Facility: [facility] Address: [address] [place] [address] Performed By: #### 5 7021-8 ####[facility] JACKSONVILLENCLI [id number] [place] [address] [place] Monocytes (Bld) [#/Vol] 0.39 10*3/uL Normal <0.87 [facility] Comment on above: Order Comment: Speci men Type: BLOOD SPECIMENOrdering Facility: [facility] Address: [address] [place] [address] Performed By: #### 5 7021-8 ####[facility] JAGDISHKEENAN [id number] [place] [address] [place] Monocytes/100 WBC (Bld) 6.1 % Normal [facility] Comment on above: Order Comment: Speci men Type: BLOOD SPECIMENOrdering Facility: [facility] Address: [address] [place] [address] Performed By: #### 5 7021-8 ####[facility] [id number] [place] [address] [place] Neutrophils (Bld) [#/Vol] 4.85 10*3/uL Normal 1.45-7.50 [facility] Comment on above: Order Comment: Speci men Type: BLOOD SPECIMENOrdering Facility: [facility] Address: [address] [place] [address] Performed By: #### 5 7021-8 ####[facility] [id number] [place] [address] [place] Neutrophils/100 WBC (Bld) 75.6 % Normal [facility] Comment on above: Order Comment: Speci men Type: BLOOD SPECIMENOrdering Facility: [facility] Address: [address] [place] [address] Performed By: #### 5 7021-8 ####[facility]ACKSONVILLENCLIA [id number] [place] [address] [place] Nucleated RBC (Bld) [#/Vol] 10*3/uL Normal <0.01 [facility] Comment on above: Order Comment: Speci men Type: BLOOD SPECIMENOrdering Facility: [facility] Address: [address] [place] [address] Performed By: #### 5 7021-8 ####[facility] JAGDISHEUGENIOLIA [id number] [place] [address] [place] Nucleated RBC/100 WBC (Bld) [Ratio] 0.0 /100 WBC Normal [facility] Comment on above: Order Comment: Speci men Type: BLOOD SPECIMENOrdering Facility: [facility] Address: [address] [place] [address] Performed By: #### 5 7021-8 ####[facility] JAGDISHPERUTAYLIA [id number] [place] [address] [place] Platelet mean volume (Bld) [Entitic vol] 10.1 fL Normal 9.0-12.7 [facility] Comment on above: Order Comment: Speci men Type: BLOOD SPECIMENOrdering Facility: [facility] Address: [address] [place] [address] Performed By: #### 5 7021-8 ####[facility]SONVILLERONA [id number] [place] [address] [place] Platelets (Bld) [#/Vol] 220 10*3/uL Normal 150-400 [facility] Comment on above: Order Comment: Speci men Type: BLOOD SPECIMENOrdering Facility: [facility] Address: [address] [place] [address] Performed By: #### 5 7021-8 ####[facility] CENTERTONEYA [id number] [place] [address] [place] RBC (Bld) [#/Vol] 4.43 10*6/uL Normal 3.90-5.20 [facility] Comment on above: Order Comment: Speci men Type: BLOOD SPECIMENOrdering Facility: [facility] Address: [address] [place] [address] Performed By: #### 5 7021-8 ####[facility]LETAYLIA [id number] [place] [address] [place] WBC (Bld) [#/Vol] 6.42 10*3/uL Normal 3.70-11.00 [facility] Comment on above: Order Comment: Speci men Type: BLOOD SPECIMENOrdering Facility: [facility] Address: [address] [place] [address] Performed By: #### 5 7021-8 ####[facility] ALFREDTAYLICelia [id number] [place] [address] [place] CNOVon 04-07-2025 CNOV Office Visit (OBGYWM ) TRISH HUNT ([id number]) 1945 F Date Time Provider Department 04/07/25 9:40 AM NORA GUERRERO During your visit today, we recorded the following information about you: Blood pressure Weight 122/78 89.8 kg Nora Guerrero MD 04/07/2025 10:29 AM Signed Trish Hunt is a 79 year old female who presents for problem visit Hot flashes for 3 month(s). HPI: Menopause late 40's and early 50's. Was a patient of Dr. Mcclendon. Was on HRT for about 1 year. Since then she had no further vasomotor symptoms until 3 months ago. She started feeling more warm, flush, hair drenched in sweat, and intolerance to temperature changes. She has this several times a day. No other new symptoms that are associated with this. No medication changes around the time of onset of hot flashes. 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 Hypothyroid Lung cancer (HCC) Non-small cell carcinoma of right lung, stage 4 Metabolic syndrome Other and unspecified hyperlipidemia Overactive bladder Unspecified essential hypertension PAST SURGICAL HISTORY Procedure Laterality Date CHOLECYSTECTOMY COLONOSCOPY FLX DX W/COLLJ SPEC WHEN PFRMD 12/14/2012 Colonoscopy COLSC FLX W/RMVL OF TUMOR POLYP LESION SNARE TQ 03/18/16 multiple polyps - 3 year follow up PAST SURGICAL HISTORY OF lumbosacral nerve root decompression PAST SURGICAL HISTORY OF bladder stim SIGMOIDOSCOPY FLX DX W/COLLJ SPEC BR/WA IF PFRMD 07/05/13 Sigmoidoscopy, flexible/colonoscopy needed in 1 year FAMILY HISTORY Problem Relation Age of Onset Cancer Mother lung non smoker Coronary Artery Disease Father Cancer Sister thyroid Social History Tobacco Use Smoking status: Former Current packs/day: 0.00 Types: Cigarettes Quit date: 12/30/2008 Years since quittin.2 Smokeless tobacco: Never Vaping Use Vaping status: Never Used Substance Use Topics Alcohol use: Yes Comment: wine Drug use: No Current Outpatient Medications Medication Sig Methenamine Hippurate (HIPREX) 1 gram tablet Take 1 g by mouth two times a day with meals. docusate sodium (COLACE) 100 mg capsule Can take up to six or eight at night gabapentin (NEURONTIN) 300 mg capsule Take 1 capsule by mouth daily at bedtime for 180 days. prn multivitamin tablet Take 1 tablet by mouth once daily. Bisacodyl (DULCOLAX) 5 mg tab Take 5 mg by mouth as needed for constipation. oxybutynin (DITROPAN) 5 mg tablet 3 to 4 times a day (Patient not taking: Reported on 04/07/2025) No current facility-administered medications for this visit. Allergies As of Date: 04/07/2025 Allergen Noted Reaction CODEINE 10/13/2005 Vomiting LISINOPRIL 05/24/2013 Cough MORPHINE 12/24/2018 Mental Status Change SEPTRA [SULFAMETHOXAZOLE-TRIMETHO* 10/13/2005 SULFA (SULFONAMIDE ANTIBIOTICS) 10/13/2005 VICODIN [HYDROCODONE-ACETAMINOPHE*1 11/28/2011 GI Upset Fully Assessed 03/03/2024 REVIEW OF SYSTEMS Expanded ROS: N/A Allergies and current medication updated:Yes SENSITIVE EXAM: Sensitive exam not performed. EXAM: Wt 198 lb (89.8kg) GENERAL: pleasant, female in no apparent distress CHEST: Normal inspiratory effort NEURO: exam grossly non-focal EXTREMITIES: normal ASSESSMENT AND PLAN: Assessment AND Plan Hot flashes Orders: COMPREHENSIVE METABOLIC PANEL; Future COMPLETE BLOOD COUNT AND DIFFERENTIAL; Future HEMOGLOBIN A1C; Future TSH W/REFLEX FT4; Future History of lung cancer Orders: COMPREHENSIVE METABOLIC PANEL; Future COMPLETE BLOOD COUNT AND DIFFERENTIAL; Future HEMOGLOBIN A1C; Future TSH W/REFLEX FT4; Future Hypothyroidism, unspecified type Orders: COMPREHENSIVE METABOLIC PANEL; Future COMPLETE BLOOD COUNT AND DIFFERENTIAL; Future HEMOGLOBIN A1C; Future TSH W/REFLEX FT4; Future New onset hot flashes for 3 months. Labs ordered as above and recommend scheduling with PCP. Nora Guerrero DO Medical Decision Making: Problems: Moderate: New problem with uncertain prognosis Data: Unique test(s) ordered: 3+ Medical Decision Making Level: 4 - Moderate Nora Guerrero MD 04/07/2025 10:29 AM Edited Orders: COMPREHENSIVE METABOLIC PANEL; Future COMPLETE BLOOD COUNT AND DIFFERENTIAL; Future HEMOGLOBIN A1C; Future TSH W/REFLEX FT4; Future Allergies As of Date: 04/07/2025 Noted Allergy Reaction CODEINE 10/13/2005 11 - Vomiting LISINOPRIL 05/24/2013 3 - Cough Comments: throat tickle MORPHINE 12/24/2018 1 - Mental Status Change Comments: sedation SEPTRA (S (more content not included)... Normal [facility] Comprehensive metabolic 2000 panelon 04-07-2025 Albumin [Mass/Vol] 3.6 g/dL Low 3.9-4.9 [facility] Comment on above: Order Comment: Speci men Type: BLOOD SPECIMENOrdering Facility: [facility] Address: [address] [place] [address] Performed By: #### 2 4323-8 ####[facility] [id number] [place] [address] [place] ALP [Catalytic activity/Vol] 36 U/L Normal 34-123 [facility] Comment on above: Order Comment: Speci men Type: BLOOD SPECIMENOrdering Facility: [facility] Address: [address] [place] [address] Performed By: #### 2 4323-8 ####[facility] MILLTOWNCLIA [id number] [place] [address] [place] ALT [Catalytic activity/Vol] U/L Low 7-38 [facility] Comment on above: Order Comment: Speci men Type: BLOOD SPECIMENOrdering Facility: [facility] Address: [address] [place] [address] Performed By: #### 2 4323-8 ####[facility] MILLTOWNCLIA [id number] [place] [address] [place] Anion gap [Moles/Vol] 11 mmol/L Normal 8-15 [facility] Comment on above: Order Comment: Speci men Type: BLOOD SPECIMENOrdering Facility: [facility] Address: [address] [place] [address] Performed By: #### 2 4323-8 ####[facility] ROOMWNCLIA [id number] [place] [address] [place] AST [Catalytic activity/Vol] 11 U/L Low 13-35 [facility] Comment on above: Order Comment: Speci men Type: BLOOD SPECIMENOrdering Facility: [facility] Address: [address] [place] [address] Performed By: #### 2 4323-8 ####[facility] ROOMWNCLIA [id number] [place] [address] [place] Bilirubin [Mass/Vol] 0.3 mg/dL Normal 0.2-1.3 [facility] Comment on above: Order Comment: Speci men Type: BLOOD SPECIMENOrdering Facility: [facility] Address: [address] [place] [address] Performed By: #### 2 4323-8 ####[facility]ILL[facility]CL[facility] [id number] [place] [address] [place] Calcium [Mass/Vol] 9.3 mg/dL Normal 8.5-10.2 [facility] Comment on above: Order Comment: Speci men Type: BLOOD SPECIMENOrdering Facility: [facility] Address: [address] [place] [address] Performed By: #### 2 4323-8 ####[facility]ILL[facility]CL[facility] [id number] [place] [address] [place] Chloride [Moles/Vol] 105 mmol/L Normal 98-107 [facility] Comment on above: Order Comment: Speci men Type: BLOOD SPECIMENOrdering Facility: [facility] Address: [address] [place] [address] Performed By: #### 2 4323-8 ####[facility]ILL[facility]CL[facility] [id number] [place] [address] [place] CO2 [Moles/Vol] 25 mmol/L Normal 22-30 [facility] Comment on above: Order Comment: Speci men Type: BLOOD SPECIMENOrdering Facility: [facility] Address: [address] [place] [address] Performed By: #### 2 4323-8 ####[facility] [id number] [place] [address] [place] Creatinine [Mass/Vol] 0.76 mg/dL Normal 0.58-0.96 [facility] Comment on above: Order Comment: Speci men Type: BLOOD SPECIMENOrdering Facility: [facility] Address: [address] [place] [address] Performed By: #### 2 4323-8 ####[facility]CL[facility] [id number] [place] [address] [place] Creatinine and Glomerular filtration rate.predicted panel (S/P/Bld) 79 mL/min/1.73m??? Normal >=60 [facility] Comment on above: Order Comment: Speci men Type: BLOOD SPECIMENOrdering Facility: [facility] Address: [address] [id number] Result Comment: Faye mated Glomerular Filtration Rate (eGFR) is calculated using the 2020 CKD-EPI creatinine equation. This equation utilizes serum creatinine, sex, and age as parameters. The creatinine assay has traceable calibration to isotope dilution-mass spectrometry. Refer to KDIGO guidelines for clinical interpretation. In patients with unstable renal function, e.g. those with acute kidney injury, the eGFR may not accurately reflect actual GFR. Performed By: #### 2 4323-8 ####[facility] [id number] [place] [address] [place] Glucose [Mass/Vol] 99 mg/dL Normal 74-99 [facility] Comment on above: Order Comment: Speci men Type: BLOOD SPECIMENOrdering Facility: [facility] Address: [address] [place] [address] Result Comment: The [place] Diabetes Association (ADA) provides guidance for cutoff values for fasting glucose and random glucose. The ADA defines fasting as no caloric intake for at least 8 hours. Fasting plasma glucose results between 100 to 125 mg/dL indicate increased risk for diabetes (prediabetes). Fasting plasma glucose results greater than or equal to 126 mg/dL meet the criteria for diagnosis of diabetes. In the absence of unequivocal hyperglycemia, results should be confirmed by repeat testing. In a patient with classic symptoms of hyperglycemia or hyperglycemic crisis, random plasma glucose results greater than or equal to 200 mg/dL meet the criteria for diagnosis of diabetes. Reference: Standards of Medical Care in Diabetes 2016, [place] Diabetes Association. Diabetes Care. 2016.39(Suppl 1). Performed By: #### 2 4323-8 ####[facility]ILLENCLI [id number] [place] [address] [place] Potassium [Moles/Vol] 4.2 mmol/L Normal 3.7-5.1 [facility] Comment on above: Order Comment: Alexandriai men Type: BLOOD SPECIMENOrdering Facility: [facility] Address: [address] [phone] Performed By: #### 2 4323-8 ####[facility] JAGDISHWNCLIA [id number] [place] [address] [place] Protein [Mass/Vol] 6.9 g/dL Normal 6.3-8.0 [facility] Comment on above: Order Comment: Speci men Type: BLOOD SPECIMENOrdering Facility: [facility] Address: [address] [place] [address] Performed By: #### 2 4323-8 ####[facility] [id number] [place] [address] [place] Sodium [Moles/Vol] 141 mmol/L Normal 136-144 [facility] Comment on above: Order Comment: Speci men Type: BLOOD SPECIMENOrdering Facility: [facility] Address: [address] [place] [address] Performed By: #### 2 4323-8 ####[facility] [id number] [place] [address] [place] Urea nitrogen [Mass/Vol] 20 mg/dL Normal 7-21 [facility] Comment on above: Order Comment: Speci men Type: BLOOD SPECIMENOrdering Facility: [facility] Address: [address] [place] [address] Performed By: #### 2 4323-8 ####[facility]ILL[facility]CL[facility] [id number] [place] [address] [place] HbA1c (Bld)on 04-07-2025 Average glucose Estimated from glycated hemoglobin (Bld) [Mass/Vol] 105 mg/dL Normal [facility] Comment on above: Order Comment: Speci men Type: BLOOD SPECIMENOrdering Facility: [facility] Address: [address] [place] [address] Result Comment: eAG: (Estimated average glucose) is a calculated value from HgbA1c and is sales representative uniforms of the average blood glucose level in the last 2-3 month period. Performed By: #### 5 5454-3 ####[facility] LABIA [id number] [place] [address] [place] HbA1c (Bld) [Mass fraction] 5.3 % Normal 4.3-5.6 [facility] Comment on above: Order Comment: Speci men Type: BLOOD SPECIMENOrdering Facility: [facility] Address: [address] [place] [address] Result Comment: [place] Diabetes Association guidelines indicate that patients with HgbA1c in the range 5.7-6.4% are at increased risk for development of diabetes, and intervention by lifestyle modification may be beneficial. HgbA1c greater or equal to 6.5% is considered diagnostic of diabetes. Performed By: #### 5 5454-3 ####[facility] LABIA [id number] [place] [address] [place] T4 Free SerPl-mCncon 025 Free T4 [Mass/Vol] 1.1 ng/dL Normal 0.9-1.7 [facility] Comment on above: Order Comment: Speci men Type: BLOOD SPECIMENOrdering Facility: [facility] Address: [address] [place] [address] Performed By: #### T [facility], 3024-7 ####[facility] [id number] [place] [address] [place] TSH W/REFLEX FT4on 5 TSH Qn 4.700 m[IU]/L High 0.270-4.20 0 [facility] Comment on above: Order Comment: Speci men Type: BLOOD SPECIMENOrdering Facility: [facility] Address: [address] [place] [address] Performed By: #### T [facility], 3024-7 ####[facility] LABIA [id number] [address] [place] Alanine aminotransferase (AL T) assayOrdered By: Arthur Gates on 05-26-2024 ALT [Catalytic activity/Vol] 12 U/L Low 13-[address] [facility] Albumin to globulin ratioOrd ered By: Arthur Gates on 05-26-2024 Albumin/Globulin [Mass ratio] 0.7 {ratio} Low 0.9-2.[address] [facility] Alkaline phosphataseOrdered By: Arthur Gates on 05-26-2024 ALP [Catalytic activity/Vol] 39 U/L Low 45-[address] [facility] Bilirubin, totalOrdered By: Arthur Gates on 05-26-2024 Bilirubin [Mass/Vol] 0.40 mg/dL 0.20-1.00 [facility] Comment on above: For patients on eltr ombopag therapy, use of [place] TBIL is not recommended. Blood urea nitrogen (BUN)/cr eatinine ratioOrdered By: Arthur Gates on 05-26-2024 Urea nitrogen/Creatinine [Mass ratio] 13.9 mg/mg 10-[address] [facility] Carbon dioxide measurementOr dered By: Arthur Gates on 05-26-2024 CO2 [Moles/Vol] 27.0 mmol/L 21.0-32.[address] [facility] Chloride measurementOrdered By: Arthur Gates on 05-26-2024 Chloride [Moles/Vol] 107 mmol/L 98-107 [facility] Ferritin measurementOrdered By: Arthur Gates on 05-26-2024 Ferritin [Mass/Vol] 42 ng/mL 8-252 [facility] Glomerular filtration rate ( GFR) estimationOrdered By: Arthur Gates on 05-26-2024 GFR/1.73 sq M.predicted among non-blacks MDRD (S/P/Bld) [Vol rate/Area] 56 mL/min/{1.73_m2} Low >[address] [facility] Comment on above: Non- GFR Calc Glucose measurementOrdered B y: Arthur Gates on 05-26-2024 Glucose [Mass/Vol] 115 mg/dL High 74-106 [facility] Comment on above: Fasting Glucose resu lt from 100 to 125 mg/dL suggests IMPAIRED HOMEOSTASIS per A.D.A. criteria. Iron measurement (mass/mass) Ordered By: Arthur Gates on 05-26-2024 Iron (Unsp spec) [Mass/Mass] 85 ug/dL 50-[address] [facility] Laboratory - Chemistry and C hemistry - challengeOrdered By: Arthur Gates on 05-26-2024 AST [Catalytic activity/Vol] 12 U/L Low 15-[address] [facility] Lactate dehydrogenase (LDH) measurementOrdered By: Arthur Gates on 05-26-2024 LDH [Catalytic activity/Vol] 118 U/L 84-[address] [facility] Potassium measurementOrdered By: Arthur Gates on 05-26-2024 Potassium [Moles/Vol] 3.6 mmol/L 3.5-5.1 [facility] Serum albumin measurementOrd ered By: Arthur Gates on 05-26-2024 Albumin [Mass/Vol] 3.1 g/dL Low 3.2-5.0 [facility] Serum anion gap measurementO rdered By: Arthur Gates on 05-26-2024 Anion gap [Moles/Vol] 5 mmol/L 5-15 [facility] Serum globulin measurementOr dered By: Arthur Gates on 05-26-2024 Globulin (S) [Mass/Vol] 4.3 g/dL High 2.2-4.[address] [facility] Serum or plasma calcium megan urement (mass/volume)Ordered By: Arthur Gates on 05-26-2024 Calcium [Mass/Vol] 9.4 mg/dL 8.5-10.1 [facility] Serum or plasma creatinine m easurement (mass/volume)Ordered By: Arthur Gates on 05-26-2024 Creatinine [Mass/Vol] 1.01 mg/dL 0.55-1.02 [facility] Comment on above: The validity of the calculated GFR & GFRAA in patients over 70 years has not been determined. Clinical correlation is essential. Serum or plasma iron saturat ion measurement (mass fraction)Ordered By: Arthur Gates on 05-26-2024 Iron saturation [Mass fraction] 33.9 % 15.0-55.[address] [facility] Serum or plasma urea nitroge n measurement (mass/volume)Ordered By: Arthur Gates on 05-26-2024 Urea nitrogen [Mass/Vol] 14 mg/dL 7-[address] [facility] Sodium levelOrdered By: Elder Gates on 05-26-2024 Sodium [Moles/Vol] 139 mmol/L 136-145 [facility] Total proteinOrdered By: Roel Gates on 05-26-2024 Protein [Mass/Vol] 7.4 g/dL 6.4-8.2 [facility] Absolute lymphocyte countOrd ered By: Max Lau on 03-08-2024 Lymphocytes Auto (Unsp spec) [#/Vol] 0.97 10*3/uL 0.83-4.[address] [facility] Automated lymphocyte count a s percentage of total leukocytesOrdered By: Max Lau on 03-08-2024 Lymphocytes/100 WBC Auto (Unsp spec) 20.4 % 19-[address] [facility] Basophil percentageOrdered B y: Max Lau on 03-08-2024 Basophils/100 WBC (Bld) 0.6 % 0-[address] [facility] Chloride [Moles/Vol] 108 mmol/L 98-107 [facility] Eosinophils/100 WBC (Bld) 5.7 % 0-[address] [facility] Glucose [Mass/Vol] 111 mg/dL 74-106 [facility] Comment on above: Fasting Glucose resu lt from 100 to 125 mg/dL suggests IMPAIRED HOMEOSTASIS per A.D.A. criteria. Hemoglobin (Bld) [Mass/Vol] 12.8 g/dL 12.0-15.[address] [facility] Monocytes/100 WBC (Bld) 8.2 % 0-[address] [facility] Neutrophils (Bld) [#/Vol] 3.1 10*3/uL 2.0-7.[address] [facility] Neutrophils/100 WBC (Bld) 64.7 % 47-[address] [facility] Potassium [Moles/Vol] 3.9 mmol/L 3.5-5.1 [facility] Sodium [Moles/Vol] 141 mmol/L 136-145 [facility] WBC (Bld) [#/Vol] 4.8 10*3/uL 4.4-11.0 [facility] Determination of erythrocyte mean corpuscular volume (MCV)Ordered By: Max Lau on 03-08-2024 MCV (RBC) [Entitic vol] 95.1 fL 81-[address] [facility] Erythrocyte distribution wid th ratioOrdered By: Max Lau on 03-08-2024 Erythrocyte distribution width (RBC) [Ratio] 12.9 % 11.6-14.[address] [facility] Erythrocyte distribution wid th standard deviationOrdered By: Max Lau on 03-08-2024 Erythrocyte distribution width (RBC) [Entitic vol] 45.4 fL 35.1-43.[address] [facility] Hematocrit Auto (Bld) [Volum e fraction]Ordered By: Max Lau on 03-08-2024 Hematocrit (Bld) [Volume fraction] 40.6 % 37-[address] [facility] Immature granulocytes/100 WB C Auto (Bld)Ordered By: Max Lau on 03-08-2024 Immature granulocytes/100 WBC (Bld) 0.400 % 0.0-0.[address] [facility] Comment on above: IG% - Immature Granu locytes (promyelocytes, myelocytes and metamyelocytes) > 1% indicates that a LEFT SHIFT is Present. Laboratory - Chemistry and C hemistry - challengeOrdered By: Max Lau on 03-08-2024 CO2 [Moles/Vol] 30.0 mmol/L 21.0-32.[address] [facility] Urea nitrogen/Creatinine [Mass ratio] 12.8 mg/mg 10-[address] [facility] Laboratory - Hematology and Cell countsOrdered By: Max Lau on 03-08-2024 MCH (RBC) [Entitic mass] 30.0 pg 27.0-32.[address] [facility] MCHC (RBC) [Mass/Vol] 31.5 g/dL 32-36 [facility] Nucleated RBC/100 WBC (Bld) [Ratio] 0 % 0-[address] [facility] Platelet mean volume (Bld) [Entitic vol] 10.0 fL 6.2-12.[address] [facility] Platelets (Bld) [#/Vol] 234 10*3/uL 150-[address] [facility] No Panel InformationOrdered By: Max Lau on 03-08-2024 Estimated Creatinine Clearance Calc 44.60 ml/min [facility] Estimated GFR (MDRD) Amer 62 mL/min >[address] [facility] Comment on above: GFR Calc Estimated GFR (MDRD) Non-Af Amer 51 mL/min >[address] [facility] Comment on above: Non- GFR Calc RBC Auto (Bld) [#/Vol]Ordere d By: Max Lau on 03-08-2024 RBC (Bld) [#/Vol] 4.27 10*6/uL 4.2-5.4 [facility] Serum or plasma calcium megan urement (mass/volume)Ordered By: Max Lau on 03-08-2024 Calcium [Mass/Vol] 8.5 mg/dL 8.5-10.1 [facility] Serum or plasma creatinine m easurement (mass/volume)Ordered By: Max Lau on 03-08-2024 Creatinine [Mass/Vol] 1.09 mg/dL 0.55-1.02 [facility] Comment on above: The validity of the calculated GFR & GFRAA in patients over 70 years has not been determined. Clinical correlation is essential. Serum or plasma urea nitroge n measurement (mass/volume)Ordered By: Max Lau on 03-08-2024 Urea nitrogen [Mass/Vol] 14 mg/dL 7-[address] [facility] Thin prep Papanicolaou smear with manual screeningOrdered By: Max Lau on 03-08-2024 Thin prep Papanicolaou smear with manual screening 3 5-[address] [facility] CBC W Auto Differential pane l (Bld)on 02-18-2024 Basophils (Bld) [#/Vol] 0.04 10*3/uL <0.11 k/uL [facility] Basophils/100 WBC (Bld) 0.6 % [facility] Differential cell count method Nom (Bld) Auto [facility] Eosinophils (Bld) [#/Vol] 0.22 10*3/uL <0.46 k/uL [facility] Eosinophils/100 WBC (Bld) 3.5 % [facility] Erythrocyte distribution width (RBC) [Ratio] 13.2 % 11.5 - 15.0 % [facility] Hematocrit (Bld) [Volume fraction] 42.4 % 36.0 - 46.0 % [facility] Hemoglobin (Bld) [Mass/Vol] 13.0 g/dL 11.5 - 15.5 g/dL [facility] Immature granulocytes (Bld) [#/Vol] <0.10 k/uL [facility] Immature granulocytes/100 WBC (Bld) 0.3 % [facility] Lymphocytes (Bld) [#/Vol] 0.96 10*3/uL Low 1.00 - 4.00 k/uL [facility] Lymphocytes/100 WBC (Bld) 15.3 % [facility] MCH (RBC) [Entitic mass] 29.7 pg 26.0 - 34.0 pg [facility] MCHC (RBC) [Mass/Vol] 30.7 g/dL 30.5 - 36.0 g/dL [facility] MCV (RBC) [Entitic vol] 96.8 fL 80.0 - 100.0 fL [facility] Monocytes (Bld) [#/Vol] 0.47 10*3/uL <0.87 k/uL [facility] Monocytes/100 WBC (Bld) 7.5 % [facility] Neutrophils (Bld) [#/Vol] 4.57 10*3/uL 1.45 - 7.50 k/uL [facility] Neutrophils/100 WBC (Bld) 72.8 % [facility] Nucleated RBC (Bld) [#/Vol] <0.01 k/uL [facility] Nucleated RBC/100 WBC (Bld) [Ratio] 0.0 /100 WBC [facility] Platelet mean volume (Bld) [Entitic vol] 10.8 fL 9.0 - 12.7 fL [facility] Platelets (Bld) [#/Vol] 236 10*3/uL 150 - 400 k/uL [facility] RBC (Bld) [#/Vol] 4.38 10*6/uL 3.90 - 5.20 m/uL [facility] WBC (Bld) [#/Vol] 6.28 10*3/uL 3.70 - 11.00 k/uL [facility] Absolute lymphocyte countOrd ered By: Arthur Coroneldaljit on 05-25-2023 Lymphocytes Auto (Unsp spec) [#/Vol] 0.75 10*3/uL 0.83-4.[address] [facility] Basophil percentageOrdered B y: Arthur Yajaira on 05-25-2023 Basophils/100 WBC (Bld) 0.3 % 0-[address] [facility] Bilirubin [Mass/Vol] 0.20 mg/dL 0.20-1.00 [facility] Comment on above: For patients on eltr ombopag therapy, use of [place] TBIL is not recommended. Chloride [Moles/Vol] 107 mmol/L 98-107 [facility] Eosinophils/100 WBC (Bld) 2.3 % 0-[address] [facility] Glucose [Mass/Vol] 113 mg/dL 74-106 [facility] Comment on above: Fasting Glucose resu lt from 100 to 125 mg/dL suggests IMPAIRED HOMEOSTASIS per A.D.A. criteria. LDH [Catalytic activity/Vol] 102 U/L 84-[address] [facility] Neutrophils (Bld) [#/Vol] 5.7 10*3/uL 2.0-7.[address] [facility] Neutrophils/100 WBC (Bld) 80.2 % 47-[address] [facility] Potassium [Moles/Vol] 3.5 mmol/L 3.5-5.1 [facility] Protein [Mass/Vol] 6.2 g/dL 6.4-8.2 [facility] Sodium [Moles/Vol] 137 mmol/L 136-145 [facility] WBC (Bld) [#/Vol] 7.1 10*3/uL 4.4-11.0 [facility] Basophil percentage < 0.9 mg/dL 0.55-1.02 [facility] Blood erythrocytes count (nu mber/volume)Ordered By: Arthur Gates on 05-25-2023 RBC (Bld) [#/Vol] 3.71 10*6/uL 4.2-5.4 [facility] Blood hemoglobin measurement (mass/volume)Ordered By: Arthur Gates on 05-25-2023 Hemoglobin (Bld) [Mass/Vol] 11.0 g/dL 12.0-15.[address] [facility] Blood lymphocytes/100 leukoc ytesOrdered By: Arthur Gates on 05-25-2023 Lymphocytes/100 WBC (Bld) 10.6 % 19-[address] [facility] Blood monocytes/100 leukocyt esOrdered By: Arthur Gates on 05-25-2023 Monocytes/100 WBC (Bld) 6.3 % 0-[address] [facility] Blood platelet mean volumeOr dered By: Arthur Gates on 05-25-2023 Platelet mean volume (Bld) [Entitic vol] 10.3 fL 6.2-12.[address] [facility] Determination of erythrocyte mean corpuscular volume (MCV)Ordered By: Arthur Gates on 05-25-2023 MCV (RBC) [Entitic vol] 95.7 fL 81-[address] [facility] Hematocrit Auto (Bld) [Volum e fraction]Ordered By: Arthur Gates on 05-25-2023 Hematocrit (Bld) [Volume fraction] 35.5 % 37-[address] [facility] Laboratory - Chemistry and C hemistry - challengeOrdered By: Arthur Gates on 05-25-2023 ALP [Catalytic activity/Vol] 42 U/L 45-[address] [facility] ALT [Catalytic activity/Vol] 9 U/L 13-[address] [facility] CO2 [Moles/Vol] 27.0 mmol/L 21.0-32.[address] [facility] Globulin (S) [Mass/Vol] 3.7 g/dL 2.2-4.[address] [facility] Urea nitrogen/Creatinine [Mass ratio] 18.4 mg/mg 10-[address] [facility] Laboratory - Hematology and Cell countsOrdered By: Arthur Gates on 05-25-2023 Erythrocyte distribution width (RBC) [Entitic vol] 45.6 fL 35.1-43.[address] [facility] Erythrocyte distribution width (RBC) [Ratio] 13.0 % 11.6-14.[address] [facility] Immature granulocytes/100 WBC (Bld) 0.300 % 0.0-0.[address] [facility] Comment on above: IG% - Immature Granu locytes (promyelocytes, myelocytes and metamyelocytes) > 1% indicates that a LEFT SHIFT is Present. MCH (RBC) [Entitic mass] 29.6 pg 27.0-32.[address] [facility] Nucleated RBC/100 WBC (Bld) [Ratio] 0 % 0-[address] [facility] MCHC Auto (RBC) [Mass/Vol]Or dered By: Arthur Gates on 05-25-2023 MCHC (RBC) [Mass/Vol] 31.0 g/dL 32-36 [facility] No Panel InformationOrdered By: Arthur Gates on 05-25-2023 Estimated GFR (MDRD) Amer 70 mL/min >[address] [facility] Comment on above: GFR Calc Estimated GFR (MDRD) Non-Af Amer 58 mL/min >[address] [facility] Comment on above: Non- GFR Calc Bedside Estimated GFR (eGFR) > 60.0000 mL/min >[address] [facility] Platelets bldOrdered By: Roel Gates on 05-25-2023 Platelets (Bld) [#/Vol] 217 10*3/uL 150-[address] [facility] Serum or plasma albumin megan urement (mass/volume)Ordered By: Arthur Gates on 05-25-2023 Albumin [Mass/Vol] 2.5 g/dL 3.2-5.0 [facility] Serum or plasma albumin/glob ulin mass ratioOrdered By: Arthur Gates on 05-25-2023 Albumin/Globulin [Mass ratio] 0.7 {ratio} 0.9-2.[address] [facility] Serum or plasma calcium megan urement (mass/volume)Ordered By: Arthur Gates on 05-25-2023 Calcium [Mass/Vol] 8.1 mg/dL 8.5-10.1 [facility] Serum or plasma creatinine m easurement (mass/volume)Ordered By: Arthur Gates on 05-25-2023 Creatinine [Mass/Vol] 0.98 mg/dL 0.55-1.02 [facility] Comment on above: The validity of the calculated GFR & GFRAA in patients over 70 years has not been determined. Clinical correlation is essential. Serum or plasma urea nitroge n measurement (mass/volume)Ordered By: Arthur Gates on 05-25-2023 Urea nitrogen [Mass/Vol] 18 mg/dL 7-[address] [facility] Thin prep Papanicolaou smear with manual screeningOrdered By: Arthur Gates on 05-25-2023 Thin prep Papanicolaou smear with manual screening 8 U/L 15-[address] [facility] Thin prep Papanicolaou smear with manual screening 3 5-[address] [facility] Comprehensive metabolic 2000 panelon 02-26-2023 Albumin [Mass/Vol] 3.8 g/dL Low 3.9 - 4.9 g/dL [facility] ALP [Catalytic activity/Vol] 41 U/L 34 - 123 U/L [facility] ALT [Catalytic activity/Vol] 5 U/L Low 7 - 38 U/L [facility] Anion gap [Moles/Vol] 11 mmol/L 9 - 18 mmol/L [facility] AST [Catalytic activity/Vol] 17 U/L 13 - 35 U/L [facility] Bilirubin [Mass/Vol] 0.3 mg/dL 0.2 - 1 .3 mg/dL [facility] Calcium [Mass/Vol] 9.3 mg/dL 8.5 - 10. 2 mg/dL [facility] Chloride [Moles/Vol] 104 mmol/L 97 - 10 5 mmol/L [facility] CO2 [Moles/Vol] 27 mmol/L 22 - 30 mmol/L [facility] Creatinine [Mass/Vol] 0.96 mg/dL 0.58 - 0.96 mg/dL [facility] Estimated Glomerular Filtration Rate 60 mL/min/1.73m >=60 mL/min/1.7 3m [facility] Glucose [Mass/Vol] 91 mg/dL 74 - 99 mg/dL [facility] Potassium [Moles/Vol] 4.5 mmol/L 3.7 - 5.1 mmol/L [facility] Protein [Mass/Vol] 7.1 g/dL 6.3 - 8.0 g/dL [facility] Sodium [Moles/Vol] 142 mmol/L 136 - 144 mmol/L [facility] Urea nitrogen [Mass/Vol] 17 mg/dL 7 - 21 mg/dL [facility] HbA1c (Bld)on 02-26-2023 Average glucose Estimated from glycated hemoglobin (Bld) [Mass/Vol] 103 mg/dL [facility] HbA1c (Bld) [Mass fraction] 5.2 % 4.3 - 5.6 % [facility] LIPID PANEL, NONFASTINGon Cholesterol [Mass/Vol] 250 mg/dL High <200 mg/dL [facility] HDL Cholesterol, Nonfasting 56 mg/dL >39 mg/dL [facility] LDL Cholesterol, Nonfasting 162 mg/dL High <100 mg/dL [facility] LDL/HDL Ratio, Nonfasting 2.89 mg/dL High <2.54 mg/dL [facility] Non HDL Cholesterol, Nonfasting 194 mg/dL High <130 mg/dL [facility] Total Chol/HDL Ratio, Nonfasting 4.46 mg/dL <5.10 mg/dL [facility] Triglycerides, Nonfasting 160 mg/dL High <150 mg/dL [facility] VLDL Cholesterol, Nonfasting 32 mg/dL High <30 mg/dL [facility] TSH BLDon 02-26-2023 TSH Qn 4.150 m[IU]/L 0.270 - 4.200 mIU/L [facility] CBC W Auto Differential pane l (Bld)on 02-25-2023 Basophils (Bld) [#/Vol] 0.04 10*3/uL <0.11 k/uL [facility] Basophils/100 WBC (Bld) 0.7 % [facility] Differential cell count method Nom (Bld) Auto [facility] Eosinophils (Bld) [#/Vol] 0.29 10*3/uL <0.46 k/uL [facility] Eosinophils/100 WBC (Bld) 5.4 % [facility] Erythrocyte distribution width (RBC) [Ratio] 13.1 % 11.5 - 15.0 % [facility] Hematocrit (Bld) [Volume fraction] 42.0 % 36.0 - 46.0 % [facility] Hemoglobin (Bld) [Mass/Vol] 12.9 g/dL 11.5 - 15.5 g/dL [facility] Immature granulocytes (Bld) [#/Vol] <0.10 k/uL [facility] Immature granulocytes/100 WBC (Bld) 0.4 % [facility] Lymphocytes (Bld) [#/Vol] 0.97 10*3/uL Low 1.00 - 4.00 k/uL [facility] Lymphocytes/100 WBC (Bld) 18.0 % [facility] MCH (RBC) [Entitic mass] 29.7 pg 26.0 - 34.0 pg [facility] MCHC (RBC) [Mass/Vol] 30.7 g/dL 30.5 - 36.0 g/dL [facility] MCV (RBC) [Entitic vol] 96.8 fL 80.0 - 100.0 fL [facility] Monocytes (Bld) [#/Vol] 0.36 10*3/uL <0.87 k/uL [facility] Monocytes/100 WBC (Bld) 6.7 % [facility] Neutrophils (Bld) [#/Vol] 3.70 10*3/uL 1.45 - 7.50 k/uL [facility] Neutrophils/100 WBC (Bld) 68.8 % [facility] Nucleated RBC (Bld) [#/Vol] <0.01 k/uL [facility] Nucleated RBC/100 WBC (Bld) [Ratio] 0.0 /100 WBC [facility] Platelet mean volume (Bld) [Entitic vol] 10.3 fL 9.0 - 12.7 fL [facility] Platelets (Bld) [#/Vol] 267 10*3/uL 150 - 400 k/uL [facility] RBC (Bld) [#/Vol] 4.34 10*6/uL 3.90 - 5.20 m/uL [facility] WBC (Bld) [#/Vol] 5.38 10*3/uL 3.70 - 11.00 k/uL [facility] UA DIP, URINE (POC)on 2022 BILIRUBIN UA (POCT) Negative Negative [facility] CLARITY UA (POCT) Cloudy [facility] COLOR UA (POCT) Yellow [facility] GLUCOSE UA (POCT) Negative Negative mg/dL [facility] HEMOGLOBIN/BLOOD UA (POCT) Small Abnormal Negative [facility] KETONE UA (POCT) Negative Negative mg/dL [facility] LEUKOCYTES UA (POCT) Large Abnormal Negative [facility] NITRITE UA (POCT) Positive Abnormal Negative [facility] PH UA (POCT) 6.0 4.5 - 8.0 [facility] Protein Ql (U) 30 mg/dL Abnormal Negative mg/dL [facility] SPECIFIC GRAVITY UA (POCT) 1.015 1.005 - 1.030 [facility] UROBILINOGEN UA (POCT) 0.2 E.U./dL Risa l E.U./dL [facility] Absolute lymphocyte countOrd ered By: Arthur Yajaira on 05-29-2022 Lymphocytes Auto (Unsp spec) [#/Vol] 0.93 10*3/uL 0.83-4.[address] [facility] Basophil percentageOrdered B y: Arthur Gates on 05-29-2022 Basophils/100 WBC (Bld) 0.5 % 0-[address] [facility] Bilirubin [Mass/Vol] 0.20 mg/dL 0.20-1.00 [facility] Comment on above: For patients on eltr ombopag therapy, use of Dimension [place] TBIL is not recommended. Chloride [Moles/Vol] 109 mmol/L 98-107 [facility] Eosinophils/100 WBC (Bld) 4.4 % 0-[address] [facility] Glucose [Mass/Vol] 102 mg/dL 74-106 [facility] Comment on above: Fasting Glucose resu lt from 100 to 125 mg/dL suggests IMPAIRED HOMEOSTASIS per A.D.A. criteria. Neutrophils (Bld) [#/Vol] 2.7 10*3/uL 2.0-7.[address] [facility] Neutrophils/100 WBC (Bld) 63.8 % 47-[address] [facility] Potassium [Moles/Vol] 3.8 mmol/L 3.5-5.1 [facility] Protein [Mass/Vol] 6.9 g/dL 6.4-8.2 [facility] Sodium [Moles/Vol] 140 mmol/L 136-145 [facility] WBC (Bld) [#/Vol] 4.3 10*3/uL 4.4-11.0 [facility] Blood erythrocytes count (nu mber/volume)Ordered By: Arthur Gates on 05-29-2022 RBC (Bld) [#/Vol] 4.00 10*6/uL 4.2-5.4 [facility] Blood hemoglobin measurement (mass/volume)Ordered By: Arthur Gates on 05-29-2022 Hemoglobin (Bld) [Mass/Vol] 12.1 g/dL 12.0-15.[address] [facility] Blood lymphocytes/100 leukoc ytesOrdered By: Arthur Gates on 05-29-2022 Lymphocytes/100 WBC (Bld) 21.7 % 19-[address] [facility] Blood monocytes/100 leukocyt esOrdered By: Arthur Gates on 05-29-2022 Monocytes/100 WBC (Bld) 9.1 % 0-[address] [facility] Blood platelet mean volumeOr dered By: Arthur Gates on 05-29-2022 Platelet mean volume (Bld) [Entitic vol] 9.8 fL 6.2-12.[address] [facility] Determination of erythrocyte mean corpuscular volume (MCV)Ordered By: Arthur Gates on 05-29-2022 MCV (RBC) [Entitic vol] 94.3 fL 81-[address] [facility] Hematocrit Auto (Bld) [Volum e fraction]Ordered By: Arthur Gates on 05-29-2022 Hematocrit (Bld) [Volume fraction] 37.7 % 37-[address] [facility] Laboratory - Chemistry and C hemistry - challengeOrdered By: Arthur Gates on 05-29-2022 ALP [Catalytic activity/Vol] 43 U/L 45-[address] [facility] ALT [Catalytic activity/Vol] 11 U/L 13-[address] [facility] CO2 [Moles/Vol] 29.0 mmol/L 21.0-32.[address] [facility] Globulin (S) [Mass/Vol] 3.9 g/dL 2.2-4.[address] [facility] Urea nitrogen/Creatinine [Mass ratio] 18.3 mg/mg 10-[address] [facility] Laboratory - Hematology and Cell countsOrdered By: Arthur Gates on 05-29-2022 Erythrocyte distribution width (RBC) [Entitic vol] 44.7 fL 35.1-43.[address] [facility] Erythrocyte distribution width (RBC) [Ratio] 12.9 % 11.6-14.[address] [facility] Immature granulocytes/100 WBC (Bld) 0.500 % 0.0-0.[address] [facility] Comment on above: IG% - Immature Granu locytes (promyelocytes, myelocytes and metamyelocytes) > 1% indicates that a LEFT SHIFT is Present. MCH (RBC) [Entitic mass] 30.3 pg 27.0-32.[address] [facility] Nucleated RBC/100 WBC (Bld) [Ratio] 0 % 0-[address] [facility] MCHC Auto (RBC) [Mass/Vol]Or dered By: Arthur Gates on 05-29-2022 MCHC (RBC) [Mass/Vol] 32.1 g/dL 32-36 [facility] No Panel InformationOrdered By: Arthur Gates on 05-29-2022 Estimated Creatinine Clearance Calc 40.58 ml/min [facility] Estimated GFR (MDRD) Amer 75 mL/min >[address] [facility] Comment on above: GFR Calc Estimated GFR (MDRD) Non-Af Amer 62 mL/min >[address] [facility] Comment on above: Non- GFR Calc Platelets bldOrdered By: Roel Gates on 05-29-2022 Platelets (Bld) [#/Vol] 233 10*3/uL 150-[address] [facility] Serum or plasma albumin megan urement (mass/volume)Ordered By: Arthur Berna on 05-29-2022 Albumin [Mass/Vol] 3.0 g/dL 3.2-5.0 [facility] Serum or plasma albumin/glob ulin mass ratioOrdered By: Arthur [facility] on 05-29-2022 Albumin/Globulin [Mass ratio] 0.8 {ratio} 0.9-2.[address] [facility] Serum or plasma calcium megan urement (mass/volume)Ordered By: [facility] on 05-29-2022 Calcium [Mass/Vol] 8.7 mg/dL 8.5-10.1 [facility] Serum or plasma creatinine m easurement (mass/volume)Ordered By: [facility] on 05-29-2022 Creatinine [Mass/Vol] 0.93 mg/dL 0.55-1.02 [facility] Comment on above: The validity of the calculated GFR & GFRAA in patients over 70 years has not been determined. Clinical correlation is essential. Serum or plasma urea nitroge n measurement (mass/volume)Ordered By: Arthur Coronel on 05-29-2022 Urea nitrogen [Mass/Vol] 17 mg/dL 7-[address] [facility] Thin prep Papanicolaou smear with manual screeningOrdered By: [facility] on 05-29-2022 Thin prep Papanicolaou smear with manual screening 13 U/L 15-[address] [facility] Thin prep Papanicolaou smear with manual screening 2 5-[address] [facility] Thin prep Papanicolaou smear with manual screening 120 U/L 84-[address] [facility] Basophil percentageon 2021 Basophil percentage < 0.9 mg/dL 0.55-1.02 [facility] Work Phone: No Panel Informationon 05-26 Bedside Estimated GFR (eGFR) > 60.0000 mL/min >[address] [facility] Work Phone: Absolute lymphocyte counton 11-25-2021 Lymphocytes Auto (Unsp spec) [#/Vol] 0.84 10*3/uL 0.83-4.[address] [facility] Work Phone: Basophil percentageon 2021 Basophils/100 WBC (Bld) 0.5 % 0-[address] [facility] Work Phone: Bilirubin [Mass/Vol] 0.50 mg/dL 0.20-1.00 [facility] Work Phone: Comment on above: For patients on eltr ombopag therapy, use of Dimension [place] TBIL is not recommended. Chloride [Moles/Vol] 106 mmol/L 98-107 [facility] Work Phone: Eosinophils/100 WBC (Bld) 3.6 % 0-[address] [facility] Work Phone: Glucose [Mass/Vol] 100 mg/dL 74-106 [facility] Work Phone: [phone] Comment on above: Fasting Glucose resu lt from 100 to 125 mg/dL suggests IMPAIRED HOMEOSTASIS per A.D.A. criteria.Please note revised GLUCOSE reference range effective 2017. Neutrophils (Bld) [#/Vol] 3.1 10*3/uL 2.0-7.[address] [facility] Work Phone: Neutrophils/100 WBC (Bld) 69.2 % 47-[address] [facility] Work Phone: Potassium [Moles/Vol] 3.7 mmol/L 3.5-5.1 [facility] Work Phone: Protein [Mass/Vol] 7.3 g/dL 6.4-8.2 [facility] Work Phone: Sodium [Moles/Vol] 140 mmol/L 136-145 [facility] Work Phone: WBC (Bld) [#/Vol] 4.4 10*3/uL 4.4-11.0 [facility] Work Phone: Blood erythrocytes count (nu mber/volume)on 11-25-2021 RBC (Bld) [#/Vol] 4.34 10*6/uL 4.2-5.4 [facility] Work Phone: Blood hemoglobin measurement (mass/volume)on 11-25-2021 Hemoglobin (Bld) [Mass/Vol] 12.9 g/dL 12.0-15.[address] [facility] Work Phone: Blood lymphocytes/100 leukoc yteson 11-25-2021 Lymphocytes/100 WBC (Bld) 19.0 % 19-[address] [facility] Work Phone: [phone] Blood monocytes/100 leukocyt eson 11-25-2021 Monocytes/100 WBC (Bld) 7.5 % 0-[address] [facility] Work Phone: Blood platelet mean volumeon 11-25-2021 Platelet mean volume (Bld) [Entitic vol] 9.5 fL 6.2-12.[address] [facility] Work Phone: Determination of erythrocyte mean corpuscular volume (MCV)on 11-25-2021 MCV (RBC) [Entitic vol] 92.4 fL 81-[address] [facility] Work Phone: Hematocrit Auto (Bld) [Volum e fraction]on 11-25-2021 Hematocrit (Bld) [Volume fraction] 40.1 % 37-[address] [facility] Work Phone: Laboratory - Chemistry and C hemistry - challengeon 11-25-2021 ALP [Catalytic activity/Vol] 40 U/L 45-[address] [facility] Work Phone: ALT [Catalytic activity/Vol] 11 U/L 13-[address] [facility] Work Phone: CO2 [Moles/Vol] 29.0 mmol/L 21.0-32.[address] [facility] Work Phone: Globulin (S) [Mass/Vol] 4.4 g/dL 2.2-4.[address] [facility] Work Phone: Urea nitrogen/Creatinine [Mass ratio] 9.9 mg/mg 10-[address] [facility] Work Phone: Laboratory - Hematology and Cell countson 11-25-2021 Erythrocyte distribution width (RBC) [Entitic vol] 43.8 fL 35.1-43.[address] [facility] Work Phone: Erythrocyte distribution width (RBC) [Ratio] 13.0 % 11.6-14.[address] [facility] Work Phone: Immature granulocytes/100 WBC (Bld) 0.200 % 0.0-0.[address] [facility] Work Phone: Comment on above: IG% - Immature Granu locytes (promyelocytes, myelocytes and metamyelocytes) > 1% indicates that a LEFT SHIFT is Present. MCH (RBC) [Entitic mass] 29.7 pg 27.0-32.[address] [facility] Work Phone: Nucleated RBC/100 WBC (Bld) [Ratio] 0 % 0-[address] [facility] Work Phone: MCHC Auto (RBC) [Mass/Vol]on 11-25-2021 MCHC (RBC) [Mass/Vol] 32.2 g/dL 32-36 [facility] Work Phone: No Panel Informationon 11-25 Estimated Creatinine Clearance Calc 42.62 ml/min [facility] Work Phone: Estimated GFR (MDRD) Amer 77 mL/min >[address] [facility] Work Phone: Comment on above: GFR Calc Estimated GFR (MDRD) Non-Af Amer 64 mL/min >[address] [facility] Work Phone: Comment on above: Non- GFR Calc Platelets bldon 11-25-2021 Platelets (Bld) [#/Vol] 269 10*3/uL 150-[address] [facility] Work Phone: Serum or plasma albumin megan urement (mass/volume)on 11-25-2021 Albumin [Mass/Vol] 2.9 g/dL 3.2-5.0 [facility] Work Phone: Serum or plasma albumin/glob ulin mass ratioon 11-25-2021 Albumin/Globulin [Mass ratio] 0.7 {ratio} 0.9-2.[address] [facility] Work Phone: Serum or plasma calcium megan urement (mass/volume)on 11-25-2021 Calcium [Mass/Vol] 9.0 mg/dL 8.5-10.1 [facility] Work Phone: Serum or plasma creatinine m easurement (mass/volume)on 11-25-2021 Creatinine [Mass/Vol] 0.90 mg/dL 0.55-1.02 [facility] Work Phone: Comment on above: The validity of the calculated GFR & GFRAA in patients over 70 years has not been determined. Clinical correlation is essential. Serum or plasma urea nitroge n measurement (mass/volume)on 11-25-2021 Urea nitrogen [Mass/Vol] 9 mg/dL 7-[address] [facility] Work Phone: Thin prep Papanicolaou smear with manual screeningon 11-25-2021 Thin prep Papanicolaou smear with manual screening 13 U/L 15-[address] [facility] Work Phone: Thin prep Papanicolaou smear with manual screening 5 5-[address] [facility] Work Phone: Thin prep Papanicolaou smear with manual screening 116 U/L 84-[address] [facility] Work Phone: No Panel Informationon 05-01 Thyroid Stimulating Hormone (TSH) 1.76 uIU/mL 0.358-3.[address] [facility] Whole blood hemoglobin A1c/t otal hemoglobin ratio (mass fraction)on 05-01-2021 HbA1c (Bld) [Mass fraction] 5.3 % 3.8-5.[address] [facility] Comment on above: Normal < 5.7 % Predi abetic 5.7 - 6.4 % Diabetic >or= 6.5 % Please note range changes. Established Visit (Neurosurg barrie)on 11-27-2019 Established Visit (Neurosurgery) Chief Complaint Patient is being seen for a follow-up Neurosurgical visit. FUV T10-11 trans-pedicular decompression of metastatic spine tumor, T7-L2 posterior instrumentation and fusion with allograft on 11/23/2018. History of Present Illness T10-11 trans-pedicular decompression of metastatic spine tumor, T7-L2 posterior instrumentation and fusion with allograft on 11/23/2018. Tightness in back, 4 session of 4 chemotherapy completed. She comes to clinic accompanied by 2 family members/friends for followup. She states that she has stable burning bandlike pain along the midabdomen umbilicus region that wraps around the abdomen. Better with sitting, worse with standing. No weakness, no bowel/bladder incontinence. She is currently on Lyrica 600 PO BID, and ibuprofen as needed which helps take the edge off. She completed chemotherapy at this time, completed 4 cycles/treatments, being done in [facility]. She tolerated chemotherapy well. Incision is well healed. Appetite is good. She is getting a surveillance PET scan in a couple of weeks. Review of Systems Constitutional - as noted in HPI, no fever, no chills, no recent weight gain and no recent weight loss. Eyes - no blurred vision, no floaters, no unilateral loss of vision and no tunnel vision. ENT - no hearing loss, no nosebleeds, no dysphagia and no hoarseness. Cardiovascular - no chest pain, no chest pressure and no palpitations. Respiratory - no shortness of breath, no shortness of breath during exertion, no asthma, no cough and no hemoptysis. Gastrointestinal - no abdominal pain, no constipation, no heartburn, no nausea, no vomiting, no change in bowel movement, no diarrhea and no blood in stools. Genitourinary - no dysuria and no hematuria. Musculoskeletal - no myalgias, no muscle weakness, no muscle cramps, no limb pain/swelling and no edema of the lower extremities. Integumentary - as noted in HPI, no rashes, no pressure wounds and is not slow to heal. Neurological - difficulty walking and T10 radicular pain around umbilicus, but as noted in HPI, no headache, no confusion, no seizures, no numbness, no tingling, no limb weakness and no memory lapses or loss. Activities of Daily Living - has difficulty walking independently and is unable to climb stairs unassisted. Psychiatric - no suicidal ideations. Endocrine - no proptosis, heat or cold intolerance, no polydipsia, no polyuria, no abnormal was observed, no deepening of the voice and no hot flashes. Hematologic/Lymphatic - no swollen glands, no thrombophlebitis, no anemia, no tendency for easy bleeding, no tendency for easy bruising and no blood transfusion. Active Problems Problems Morbid obesity (278.01) (E66.01) Pain in back (724.5) (M54.9) Peripheral neuropathy (356.9) (G62.9) Past Medical History Problems History of gastroesophageal reflux (GERD) (V12.79) (Z87.19) History of hyperlipidemia (V12.29) (Z86.39) History of hypertension (V12.59) (Z86.79) History of hypothyroidism (V12.29) (Z86.39) History of prediabetes (V12.29) (Z87.898) History of Overactive bladder (596.51) (N32.81) Surgical History Problems History of Back surgery History of Cholecystectomy History of Hemorrhoidectomy History of Removal of device History of Spinal cord stimulation History of Tonsillectomy Family History Mother Family history of lung cancer (V16.1) (Z80.1) Sister Family history of lung cancer (V16.1) (Z80.1) Social History Problems Drinks wine (V49.89) (Z78.9) Former smoker (V15.82) (Z87.891) Allergies Medication codeine Diarrhea; Nausea; Vomiting; Updated By: Syl Clancy; 08/31/2019 2:50:48 PM lisinopril Cough; Recorded By: Syl Clancy; 08/31/2019 2:50:48 PM Vicodin TABS Diarrhea; Nausea; Vomiting; Recorded By: Syl Clancy; 08/31/2019 2:50:48 PM morphine Recorded By: Syl Clancy; 08/31/2019 2:50:48 PM severe sedation sulfa Recorded By: Syl Clancy; 12/14/2018 1:29:01 PM trimethoprim Recorded By: Syl Clancy; 08/31/2019 2:50:48 PM Current Meds Medication NameInstruction Amitriptyline HCl - 25 MG Oral TabletTAKE 1 TABLET AT BEDTIME. Gabapentin 600 MG Oral TabletTAKE 1 TABLET 3 TIMES DAILY. hydroCHLOROthiazide 12.5 MG Oral Capsule hydroCHLOROthiazide 12.5 MG Oral TabletTAKE 1 TABLET DAILY. Ibuprofen 600 MG Oral TabletTAKE 1 TABLET EVERY 6 HOURS NEEDED. Levothyroxine Sodium 50 MCG Oral TabletTAKE 1 TABLET DAILY. Magnesium Oxide 400 (240 Mg) MG Oral Tablet Multi Vitamin Daily TABSTAKE 1 TABLET DAILY. Oxybutynin Chloride 5 MG Oral TabletTAKE ONE TABLET BY MOUTH THREE TIMES A DAY Potassium Chloride ER 10 MEQ Oral Capsule Extended Release Potassium Chloride ER 20 MEQ Oral Tablet Extended ReleaseTake one tablet twice daily. Protonix 40 MG Oral Tablet Delayed ReleaseTAKE 1 TABLET DAILY. Simvastatin 40 MG Oral TabletTAKE 1 TABLET AT BEDTIME. Spironolactone 50 MG Oral TabletTAKE 1 TABLET DAILY. Vitals Vital Signs Recorded: 23Nov2019 02:21PM Heart Rate96 [id number] [id number] [id number] [id number] lb BMI Ntfcebnqix00.9 BSA Calculated2.02 Physical Exam Constitutional - General appearance: No acute distress, well developed, well nourished and appearing her stated age. Musculoskeletal - Digits and nails: No visible deformity of joints. Inspection/palpation of joints, bones and muscles: Normal. Range of motion: Normal. Neurologic - Oriented to self, place, and time. incision along the back, well-healed. Language: Fluid speech and intact cognition 2nd cranial nerve: Normal. 3rd, 4th, and 6th cranial nerves: Normal. 5th cranial nerve: Normal. 7th cranial nerve: Normal. 8th cranial nerve: Normal. 9th cranial nerve: Normal. 11th cranial nerve: Normal. 12th cranial nerve: Normal. Muscle strength: 5/5 strength both UE and LE without flacidity, rigidity, cogwheeling, or spasticity. No visible fasiculations 5/5 in AE, sensory grossly intact Muscle tone: No atrophy, abnormal movements, flaccidity, cogwheeling or spasticity Gait and Station: Abnormal. In wheelchair; gait not tested Sensation: Grossly intact to pinprick and temperature throughout all dermatomes. No allodynia Reflexes: Symmetric and normal deep tendon reflexes throughout. Negative Adams's sign. Toes down on Babinski. No clonus at ankles Coordination: No dysmetria, no dysdiadochokinesis, negative Romberg sign Mood and affect: Normal. Results/Data MRI thoracolumbar spine personally reviewed from 09/2019 which shows stable thorocolumbar hardware and stable T10 pathologic fracture. There is no evidence of cord compression or epidural metastatic disease. No evidence of neuroforaminal stenosis. She has some marrow changes, likely post radiation therapy related. Diagnoses/Problems Assessed Pain in back (724.5) (M54.9) Peripheral neuropathy (356.9) (G62.9) Orders Pain in back, Peripheral neuropathy Pain Management Referral Evaluation and Treatment Evaluate AND Treat Status: Hold For - Scheduling Requested for: 23Nov2019 Ordered;For: Pain in back, Peripheral neuropathy; Ordered By: Fartun Tamayo Performed: Due: 21Feb2020 Provider Impressions Mrs. 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 Completed 4 cycles of chemotherapy. Patient Discussion/Summary Patient with T10 radicular pain.Tolerating Lyrica at dose of 600 mg PO TID for T10 radicular pain, but no improvement in symptoms. Thoracic xray ap/lateral shows stable hardware in good position, no changes and no evidence of hardware failure. MRI spine shows no new tumor recurrence, no evidence of nerve root compression/cord compression or epidural disease, particularly at bilateral T10. She does have stable pathologic T10 fracture from her cancer with 25% loss of height which is stable. Patient undergoing surveillance imaging/PET scan ordered by her oncologist in next couple of weeks. She is receiving treatment and imaging at a Cancer Center in [facility]. Recommend pain management consult for T10 radicular pain, not relieved with gabapentin. Have made referral today. She has a pain management physician closer to home that she would like to see. Although no evidence of nerve root compression at that level on MRI spine, she is exhibiting symptoms of nerve radiculopathy/neuropathy which is possibly intrinsic post op from surgery and radiation. Spine hardware is intact. Have asked patient to have her PET scan results faxed to sent to my office once completed. Neurosurgery followup as needed, sooner if new issues arise. Signatures Electronically signed by : Fartun Tamayo MD; Nov 27 2019 7:46PM EST (Author) Normal Touchworks INR in Blood by Coagulation assayon 11-21-2019 INR Coag (Bld) [Relative time] 1.1 {INR} [facility] Laboratory - Chemistry and C hemistry - challengeon 11-21-2019 Magnesium [Mass/Vol] 1.9 mg/dL 1.6-2.6 [facility] Laboratory - Coagulationon 0 11-21-2019 aPTT Coag (Bld) [Time] 26.8 s 24.1-36.2 [facility] PT Coag (PPP) [Time] 14.0 s 11.7-14.9 [facility] No Panel Informationon 11-07 Differential Comment SCANNED [facility] Reactive Lymphocytes 1+ [facility] Basophil percentageon 2018 Basophil percentage 2.7 mg/dL 2.5-4.9 [facility] Iron measurement (mass/mass) on 10-31-2019 Iron (Unsp spec) [Mass/Mass] 63 ug/dL 50-[address] [facility] Laboratory - Chemistry and C hemistry - challengeon 10-31-2019 Cobalamin (Vitamin B12) [Mass/Vol] 538 pg/mL 211-[address] [facility] No Panel Informationon 10-31 Folate > 100.00 ng/mL High 3.1-55.[address] [facility] Total Iron Binding Capacity 228 ug/dL 250-[address] [facility] Serum or plasma ferritin barbie surement (mass/volume)on 10-31-2019 Ferritin [Mass/Vol] 173 ng/mL 8-252 [facility] Serum or plasma iron saturat ion measurement (mass fraction)on 10-31-2019 Iron saturation [Mass fraction] 27.6 % 15.0-55.[address] [facility] Hypochromatic red blood cell detectionon 10-24-2019 Hypochromia Ql (Bld) 1+ [facility] Laboratory - Hematology and Cell countson 10-24-2019 Anisocytosis Ql (Bld) 2+ [facility] Macrocytes detectionon 10-24 Macrocytes Ql (Bld) 1+ [facility] Thin prep Papanicolaou smear with manual screeningon 10-24-2019 Thin prep Papanicolaou smear with manual screening 1+ [facility] Review by pathologiston Pathologist review Mohan (Unsp spec) [Interp] Reviewed [facility] Comment on above: Previous reported re sult: Regina manriquez Edited by: LEELEE on 10/18/19:1155Leukopenia, neutropenia and Macrocytic anemia.Clinical correlation necessary.Marky Briggs M.D. 10/18/19 AMENDED REPORT 10/18/19 1155 PATH REV previously reported as: March foll No Panel Informationon 10-03 Atypical Lymphocytes 1+ % [facility] Blood platelet adequacy dete ction by light microscopyon 09-26-2019 Platelets LM Ql (Bld) ADEQUATE ADEQ [facility] Blood platelet morphology de termination (nominal result)on 09-26-2019 Platelet morphology finding Nom (Bld) LARGE [facility] RBC morphologyon 09-26-2019 RBC morphology finding Nom (Bld) N CHROM NORMAL NORM C&C [facility] Teardrop cell detectionon Dacrocytes LM Ql (Bld) 1+ [facility] Established Visit (Neurosurg barrie)on 09-05-2019 Established Visit (Neurosurgery) Chief Complaint FUV T10-11 trans-pedicular decompression of metastatic spine tumor, T7-L2 posterior instrumentation and fusion with allograft on 11/23/2018. History of Present Illness T10-11 trans-pedicular decompression of metastatic spine tumor, T7-L2 posterior instrumentation and fusion with allograft on 11/23/2018. Tightness in back, 2 session of 4 in chemo. She comes to clinic accompanied by 2 family members/friends for followup. She states that she has burning bandlike pain along the midabdomen umbilicus region that wraps around the abdomen. Better with sitting, worse with standing. No weakness, no bowel/bladder incontinence. She is currently on Lyrica 300 PO BID, and ibuprofen as needed which helps take the edge off. She is undergoing active chemotherapy at this time, on cycle 2/6 treatments, being done in [facility]. She is tolerating chemotherapy well. Incision is well healed. Appetite is good Review of Systems Constitutional - as noted in HPI, no fever, no chills, no recent weight gain and no recent weight loss. Eyes - no blurred vision, no floaters, no unilateral loss of vision and no tunnel vision. ENT - no hearing loss, no nosebleeds, no dysphagia and no hoarseness. Cardiovascular - no chest pain, no chest pressure and no palpitations. Respiratory - no shortness of breath, no shortness of breath during exertion, no asthma, no cough and no hemoptysis. Gastrointestinal - no abdominal pain, no constipation, no heartburn, no nausea, no vomiting, no change in bowel movement, no diarrhea and no blood in stools. Genitourinary - no dysuria and no hematuria. Musculoskeletal - no myalgias, no muscle weakness, no muscle cramps, no limb pain/swelling and no edema of the lower extremities. Integumentary - as noted in HPI, no rashes, no pressure wounds and is not slow to heal. Neurological - difficulty walking and T10 radicular pain around umbilicus, but as noted in HPI, no headache, no confusion, no seizures, no numbness, no tingling, no limb weakness and no memory lapses or loss. Activities of Daily Living - has difficulty walking independently and is unable to climb stairs unassisted. Psychiatric - no suicidal ideations. Endocrine - no proptosis, heat or cold intolerance, no polydipsia, no polyuria, no abnormal was observed, no deepening of the voice and no hot flashes. Hematologic/Lymphatic - no swollen glands, no thrombophlebitis, no anemia, no tendency for easy bleeding, no tendency for easy bruising and no blood transfusion. Active Problems Problems Morbid obesity (278.01) (E66.01) Pain in back (724.5) (M54.9) Past Medical History Problems History of gastroesophageal reflux (GERD) (V12.79) (Z87.19) History of hyperlipidemia (V12.29) (Z86.39) History of hypertension (V12.59) (Z86.79) History of hypothyroidism (V12.29) (Z86.39) History of prediabetes (V12.29) (Z87.898) History of Overactive bladder (596.51) (N32.81) Surgical History Problems History of Back surgery History of Cholecystectomy History of Hemorrhoidectomy History of Removal of device History of Spinal cord stimulation History of Tonsillectomy Family History Mother Family history of lung cancer (V16.1) (Z80.1) Sister Family history of lung cancer (V16.1) (Z80.1) Social History Problems Drinks wine (V49.89) (Z78.9) Former smoker (V15.82) (Z87.891) Allergies Medication codeine Diarrhea; Nausea; Vomiting; Updated By: Syl Clancy; 08/31/2019 2:50:48 PM lisinopril Cough; Recorded By: Syl Clancy; 08/31/2019 2:50:48 PM Vicodin TABS Diarrhea; Nausea; Vomiting; Recorded By: Syl Clancy; 08/31/2019 2:50:48 PM morphine Recorded By: Syl Clancy; 08/31/2019 2:50:48 PM severe sedation sulfa Recorded By: Syl Clancy; 12/14/2018 1:29:01 PM trimethoprim Recorded By: Syl Clancy; 08/31/2019 2:50:48 PM Current Meds Medication NameInstruction Amitriptyline HCl - 25 MG Oral TabletTAKE 1 TABLET AT BEDTIME. Gabapentin 300 MG Oral CapsuleTAKE 1 CAPSULE BY MOUTH 2 TIMES DAILY. hydroCHLOROthiazide 12.5 MG Oral TabletTAKE 1 TABLET DAILY. Ibuprofen 600 MG Oral TabletTAKE 1 TABLET EVERY 6 HOURS NEEDED. Levothyroxine Sodium 50 MCG Oral TabletTAKE 1 TABLET DAILY. Multi Vitamin Daily TABSTAKE 1 TABLET DAILY. Oxybutynin Chloride 5 MG Oral TabletTAKE ONE TABLET BY MOUTH THREE TIMES A DAY oxyCODONE HCl - 5 MG Oral TabletTAKE 1 TABLET BY MOUTH EVERY 4 TO 6 HOURS NEEDED FOR PAIN. Potassium Chloride ER 20 MEQ Oral Tablet Extended ReleaseTake one tablet twice daily. Simvastatin 40 MG Oral TabletTAKE 1 TABLET AT BEDTIME. Vitals Vital Signs Recorded: 31Aug2019 02:40PM [id number] Physical Exam Constitutional - General appearance: No acute distress, well developed, well nourished and appearing her stated age. Musculoskeletal - Digits and nails: No visible deformity of joints. Inspection/palpation of joints, bones and muscles: Normal. Range of motion: Normal. Neurologic - Oriented to self, place, and time. incision along the back, well-healed. Language: Fluid speech and intact cognition 2nd cranial nerve: Normal. 3rd, 4th, and 6th cranial nerves: Normal. 5th cranial nerve: Normal. 7th cranial nerve: Normal. 8th cranial nerve: Normal. 9th cranial nerve: Normal. 11th cranial nerve: Normal. 12th cranial nerve: Normal. Muscle strength: 5/5 strength both UE and LE without flacidity, rigidity, cogwheeling, or spasticity. No visible fasiculations 5/5 in AE, sensory grossly intact Muscle tone: No atrophy, abnormal movements, flaccidity, cogwheeling or spasticity Gait and Station: Abnormal. In wheelchair; gait not tested Sensation: Grossly intact to pinprick and temperature throughout all dermatomes. No allodynia Reflexes: Symmetric and normal deep tendon reflexes throughout. Negative Adams's sign. Toes down on Babinski. No clonus at ankles Coordination: No dysmetria, no dysdiadochokinesis, negative Romberg sign Mood and affect: Normal. Results/Data Xray Thoracolumbar Spine 2 [id number] 03:40PMFartun Tamayo [Aug 31, 2019 3:35PM Fartun Tamayo] Reason: Unspecified for Xray Thoracolumbar Spine 2 View Test NameResultFlagReference Xray Thoracolumbar Spine 2 View(Report) Interpreted by: ASHLEY MONTERO 09/03/19 09:34 Patient Name: TRISH HUNT STUDY: SPINE, THORACOLUMBAR, 2 VIEWS INDICATION: Pain in back. COMPARISON: None ACCESSION NUMBER(S): [id number] ORDERING CLINICIAN: FARTUN TAMAYO FINDINGS: T7-L2 posterior fusion across the compression fracture at T10. Hardware satisfactory. Alignment normal. IMPRESSION: Status post thoracic lumbar fusion across the T10 compression fracture with a satisfactory appearance. Electronically signed by: ASHLEY MONTERO 09/03/19 09:34 Thoracic xray ap/lateral completed today shows stable hardware in good position, no changes and no evidence of hardware failure. Diagnoses/Problems Assessed Pain in back (724.5) (M54.9) Peripheral neuropathy (356.9) (G62.9) Orders Pain in back Xray Thoracolumbar Spine 2 View; Status:Canceled; Perform:[facility]; Due:29Nov2019;Ordered; For:Pain in back; Ordered By:Fartun Tamayo; Reason: Unspecified for Xray Thoracolumbar Spine 2 View Reason: Unspecified for Xray Thoracolumbar Spine 2 View Radiologist to Determine Optimal Study : Y What are the patient's signs and symptoms? : Pain in back Xray Thoracolumbar Spine 2 View; Status:Resulted - Requires Verification,Retrospective Authorization; Done: 31Aug2019 03:40PM Performed:KRYSTIN; Order Comments:PLEASE DO AP AND LATERAL; Due:29Nov2019;Ordered; For:Pain in back; Ordered By:Fartun Tamayo; Reason: Unspecified for Xray Thoracolumbar Spine 2 View Radiologist to Determine Optimal Study : Y What are the patient's signs and symptoms? : Pain in back Peripheral neuropathy Start: Gabapentin 600 MG Oral Tablet; TAKE 1 TABLET 3 TIMES DAILY Rx By: Fartun Tamayo; Dispense: 30 Days ; #:90 Tablet; Refill: 1;For: Peripheral neuropathy; DAYO = N; Print Rx Unlinked Stop: Gabapentin 300 MG Oral Capsule Dispense: 0 Days ; #: Sufficient Capsule; Refill: 0; DAYO = N; Record; Last Updated By: Fartun Tamayo; 08/31/2019 3:32:00 PM Provider Impressions Mrs. 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 Currently on cycle 2/6 of chemotherapy. Patient Discussion/Summary 1.Lyrica increased to 600 mg PO TID for T10 radicular pain 2.Patient with T10 radicular pain. Thoracic xray ap/lateral shows stable hardware in good position, no changes and no evidence of hardware failure. Patient currently in cycle 2/6 of chemotherapy. Will have followup imaging sometime next 1-2 months after chemotherapy complete. Recommend MRI thoracic spine at that time, in addition to her surveillance imaging/PET scan ordered by her oncologist. Patient requests to obtain MRI under general anesthesia. She prefers to get that done locally in [place]. We do not have any recent records since 11/2018. She is receiving treatment and imaging at a Cancer Center in [facility]. Patient and her POA will have records and recent imaging sent to our office. I discussed that if she is not able to complete MRI at her outside facility, we can have it done at under anesthesia. Patient will followup to let us know. Normal [facility] SPINE, THORACOLUMBAR, 2 VIEW Son 08-31-2019 SPINE, THORACOLUMBAR, 2 VIEWS Patient Name: TRISH HUNT STUDY: SPINE, THORACOLUMBAR, 2 VIEWS INDICATION: Pain in back. COMPARISON: None ACCESSION NUMBER(S): [id number] ORDERING CLINICIAN: FARTUN TAMAYO FINDINGS: T7-L2 posterior fusion across the compression fracture at T10. Hardware satisfactory. Alignment normal. IMPRESSION: Status post thoracic lumbar fusion across the T10 compression fracture with a satisfactory appearance. Electronically signed by: ASHLEY MONTERO MD Normal [facility] Erythrocyte distribution wid th standard deviationon 05-16-2019 Erythrocyte distribution width (RBC) [Entitic vol] 62.2 fL High 35.1-43.[address] [facility] Laboratory - Hematology and Cell countson 05-16-2019 Erythrocyte distribution width (RBC) [Ratio] 17.5 % High 11.6-14.[address] [facility] Total cell counton 9 Cells counted [employer] (Bld/Tiss) [#] Not Reportable [facility] Basophils/100 WBC Manual cnt (Unsp spec)on 04-18-2019 Basophils/100 WBC (Unsp spec) 1 % 0-[address] [facility] Blood polychromasia detectio n by light microscopyon 04-18-2019 Polychromasia LM Ql (Bld) RARE [facility] Eosinophils/100 WBC Auto (Bl d)on 04-18-2019 Eosinophils/100 WBC (Bld) 1 % 0-[address] [facility] Laboratory - Hematology and Cell countson 04-18-2019 Band form neutrophils/100 WBC (Bld) 5 % 0-[address] [facility] Lymphocytes/100 WBC (Bld) 23 % 19-[address] [facility] Metamyelocytes/100 WBC (Bld) 2 % High 0-[address] [facility] Monocytes/100 WBC (Bld) 14 % High 0-[address] [facility] Neutrophils/100 WBC (Bld) 53 % 47-[address] [facility] No Panel Informationon 04-18 Blast Cells % 1 % High 0-[address] [facility] Established Visit (Neurosurg barrie)on 02-24-2019 Established Visit (Neurosurgery) Chief Complaint Patient is being seen for a follow-up Neurosurgical visit. 3 month FUV spinal metastasis Procedure: T10-11 transpedicular decompression of metastatic spine tumor, T7-L2 posterior instrumentation and fusion with allograft on 11/23/2018. History of Present Illness Mrs. Trish Hunt comes in for 3 month followup visit after resection of metastatic spine tumor for cord compression and posterior intrumentation and fusion. She is accompanied in clinic today with 2 family members. She is currently at home and she states that she is overall doing pretty well. She reports fair appetite. She is currently on chemotherapy and recently started immunotherapy. She had a recent body rash and is currently on Atarax which is helping with that. No pain, no bowel/bladder incontinence. She walks with a rolling walker or cane. Otherwise, the incision is healing well. No drainage from wound. No erythema. No fevers. No focal weakness. She does report occasional tightness along the scapula when she lefts her arms, but otherwise no other major symptoms. She is in good spirits. Review of Systems Constitutional - fair appetite, but as noted in HPI, no fever, no chills, no recent weight gain and no recent weight loss. Eyes - no blurred vision, no floaters, no unilateral loss of vision and no tunnel vision. ENT - no hearing loss, no nosebleeds, no dysphagia and no hoarseness. Cardiovascular - no chest pain, no chest pressure and no palpitations. Respiratory - no shortness of breath, no shortness of breath during exertion, no asthma, no cough and no hemoptysis. Gastrointestinal - no abdominal pain, no constipation, no heartburn, no nausea, no vomiting, no change in bowel movement, no diarrhea and no blood in stools. Genitourinary - no dysuria and no hematuria. Musculoskeletal - no myalgias, no muscle weakness, no muscle cramps, no limb pain/swelling and no edema of the lower extremities. Integumentary - a rash, but as noted in HPI, no pressure wounds and is not slow to heal. Neurological - difficulty walking, but no headache, no confusion, no seizures, no numbness, no tingling, no limb weakness and no memory lapses or loss. Activities of Daily Living - has difficulty walking independently and is unable to climb stairs unassisted. Psychiatric - no suicidal ideations. Endocrine - no proptosis, heat or cold intolerance, no polydipsia, no polyuria, no abnormal was observed, no deepening of the voice and no hot flashes. Hematologic/Lymphatic - no swollen glands, no thrombophlebitis, no anemia, no tendency for easy bleeding, no tendency for easy bruising and no blood transfusion. Active Problems Problems Morbid obesity (278.01) (E66.01) Pain in back (724.5) (M54.9) Past Medical History Problems History of gastroesophageal reflux (GERD) (V12.79) (Z87.19) History of hyperlipidemia (V12.29) (Z86.39) History of hypertension (V12.59) (Z86.79) History of hypothyroidism (V12.29) (Z86.39) History of peripheral neuropathy (V12.49) (Z86.69) History of prediabetes (V12.29) (Z87.898) History of Overactive bladder (596.51) (N32.81) Surgical History Problems History of Back surgery History of Cholecystectomy History of Hemorrhoidectomy History of Removal of device History of Spinal cord stimulation History of Tonsillectomy Family History Mother Family history of lung cancer (V16.1) (Z80.1) Sister Family history of lung cancer (V16.1) (Z80.1) Social History Problems Drinks wine (V49.89) (Z78.9) Former smoker (V15.82) (Z87.891) Allergies Medication codeine Recorded By: Syl Clancy; 12/14/2018 1:29:01 PM sulfa Recorded By: Syl Clancy; 12/14/2018 1:29:01 PM Current Meds Medication NameInstruction Albuterol-Ipratropium 2.5-0.5 MG/3ML SOLNUSE 1 UNIT DOSE IN NEBULIZER EVERY 6 HOURS NEEDED. Gabapentin 300 MG Oral CapsuleTAKE 1 CAPSULE BY MOUTH 2 TIMES DAILY. hydroCHLOROthiazide 12.5 MG Oral TabletTAKE 1 TABLET DAILY. Levothyroxine Sodium 50 MCG Oral TabletTAKE 1 TABLET DAILY. Lidocaine 5% (140 MG) PTCHUse as directed. Multi Vitamin Daily TABSTAKE 1 TABLET DAILY. Naproxen 500 MG Oral TabletTAKE 1 TABLET EVERY 12 HOURS NEEDED. Oxybutynin Chloride 5 MG Oral TabletTAKE 2 TABLET BY MOUTH 4 TIMES A DAY. oxyCODONE HCl - 5 MG Oral TabletTAKE 1 TABLET BY MOUTH EVERY 4 TO 6 HOURS NEEDED FOR PAIN. Pantoprazole Sodium 40 MG Oral Tablet Delayed ReleaseTAKE 1 TABLET DAILY. Polyethylene Glycol 3350 GRAN17 grams by mouth 2 tiems a day. Potassium Chloride 10 MEQ TBCRTAKE 1 TABLET DAILY. Simvastatin 40 MG Oral TabletTAKE 1 TABLET AT BEDTIME. Vitals Vital Signs Recorded: [id number] 02:06PM Heart Rate80 [id number] Height5 ft 4 in Physical Exam Constitutional - General appearance: Abnormal . pleasant, obese female in NAD. Head and Face - Normocephalic. Atraumatic. Eyes - Conjunctiva and sclera clear and not injected. Examination of pupils and irises: equal, round, and reactive to light. Ears, Nose, Mouth, and Throat - External inspection of ears and nose: No drainage from ears. Hearing: Normal. Inspection of nose and throat: No lesions; septum midline. Neck - Neck and thyroid: Normal, supple, trachea midline, no masses or thyromegaly. No palpable thyroid nodules. Pulmonary - Respiratory effort: Normal respiration. Cardiovascular - Peripheral vascular exam: Normal pulses throughout, no tenderness, erythema or swelling. Pedal pulses: Normal. edema/varicosities: normal. Abdomen - Abdomen: Soft, nontender, no organomegaly. Lymphatic - Palpation of lymph nodes: no lymphadenopathy. Musculoskeletal - Digits and nails: No visible deformity of joints. Inspection/palpation of joints, bones and muscles: Normal. Range of motion: Normal. Skin - Skin and subcutaneous tissue: Abnormal. Mild skin rash on chest, back, and upper extremities. Examination of the skin for lesions: Abnormal. 1 . Posterior back incision well-healed c/d/i1 . Neurologic - Oriented to self, place, and time. Language: Fluid speech and intact cognition. 2nd cranial nerve: Normal. 3rd, 4th, and 6th cranial nerves: Normal. 5th cranial nerve: Normal. 7th cranial nerve: Normal. 8th cranial nerve: Normal. 9th cranial nerve: Normal. 11th cranial nerve: Normal. 12th cranial nerve: Normal. Muscle strength: 5/5 strength both UE and LE without flacidity, rigidity, cogwheeling, or spasticity. No visible fasiculations. 5/5 in AE. sensory intact.1 . Muscle tone: No atrophy, abnormal movements, flaccidity, cogwheeling or spasticity. 1 . Gait and Station: Abnormal. 1 . Not tested1 . Sensation: Grossly intact to pinprick and temperature throughout all dermatomes. No allodynia. Reflexes: Symmetric and normal deep tendon reflexes throughout. Negative Adams's sign. Toes down on Babinski. No clonus at ankles. Coordination: No dysmetria, no dysdiadochokinesis, negative Romberg sign. Mood and affect: Normal. 1 Amended By: Fartun Tamayo; Feb 24 2019 9:33 PM ESTResults/Data no new imaging to review. Provider Impressions Mrs. 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 Patient Discussion/Summary Patient is doing clinically well. She is due to get a followup body CT scan ordered by her oncologist in the next 1-2 weeks. I have requested if possible that her family call me once the scans are done, so that the films can be sent over (since they will be outside images) so that I can review them (for followup evaluation of spinal hardware). Otherwise I will see her back in neurosurgery clinic in 6 months for followup. Signatures Electronically signed by : Fartun Tamayo MD; Feb 24 2019 9:33PM EST (Author) Normal [facility]works Established Visit (Neurosurg barrie)on 12-22-2018 Established Visit (Neurosurgery) Chief Complaint POV after T10-11 transpedicular decompression of metastatic spine tumor, T7-L2 posterior instrumentation and fusion with allograft on 11/23/18. History of Present Illness Mrs. Trish Hunt comes in for post op visit after resection of metastatic spine tumor for cord compression and posterior intrumentation and fusion. She is accompanied in clinic today with 2 family members. She is currently in SNF and she states that she is overall doing pretty well. She reports poor appetite however, as everything "tastes like dirt" and she has persistent dry mouth. She is about to start Ensure for nutritional supplementation. She also reports band-like abdominal fullness that initially started as pain that starts in a bandlike location around the umbilicus. She was started on gabapentin, which got rid of the pain, but the pressure and fullness remains. She reports +flatus, denies constipation. Otherwise, the incision is healing well. No drainage from wound. No erythema. No fevers. She is ambulatory and her walking is improving with PT with SNF. No weakness, no bowel symptoms. No new urinary symtpoms. She is scheduled to start radiation therapy potentially next week and chemotherapy mid December 2018. Review of Systems Constitutional - poor appetite, but as noted in HPI, no fever, no chills, no recent weight gain and no recent weight loss. Eyes - no blurred vision, no floaters, no unilateral loss of vision and no tunnel vision. ENT - dry mouth, but as noted in HPI, no hearing loss, no nosebleeds, no dysphagia and no hoarseness. Cardiovascular - no chest pain, no chest pressure and no palpitations. Respiratory - no shortness of breath, no shortness of breath during exertion, no asthma, no cough and no hemoptysis. Gastrointestinal - abdominal pain, but as noted in HPI, no constipation, no heartburn, no nausea, no vomiting, no change in bowel movement, no diarrhea and no blood in stools. Genitourinary - no dysuria and no hematuria. Musculoskeletal - no myalgias, no muscle weakness, no muscle cramps, no limb pain/swelling and no edema of the lower extremities. Integumentary - no pressure wounds and is not slow to heal. Neurological - difficulty walking, but no headache, no confusion, no seizures, no numbness, no tingling, no limb weakness and no memory lapses or loss. Psychiatric - no suicidal ideations. Endocrine - no proptosis, heat or cold intolerance, no polydipsia, no polyuria, no abnormal was observed, no deepening of the voice and no hot flashes. Hematologic/Lymphatic - no swollen glands, no thrombophlebitis, no anemia, no tendency for easy bleeding, no tendency for easy bruising and no blood transfusion. Active Problems Problems Morbid obesity (278.01) (E66.01) Pain in back (724.5) (M54.9) Past Medical History Problems History of gastroesophageal reflux (GERD) (V12.79) (Z87.19) History of hyperlipidemia (V12.29) (Z86.39) History of hypertension (V12.59) (Z86.79) History of hypothyroidism (V12.29) (Z86.39) History of peripheral neuropathy (V12.49) (Z86.69) History of prediabetes (V12.29) (Z87.898) History of Overactive bladder (596.51) (N32.81) Surgical History Problems History of Back surgery History of Cholecystectomy History of Hemorrhoidectomy History of Removal of device History of Spinal cord stimulation History of Tonsillectomy Family History Mother Family history of lung cancer (V16.1) (Z80.1) Sister Family history of lung cancer (V16.1) (Z80.1) Social History Problems Drinks wine (V49.89) (Z78.9) Former smoker (V15.82) (Z87.891) Allergies Medication codeine Recorded By: Syl Clancy; 12/14/2018 1:29:01 PM sulfa Recorded By: Syl Clancy; 12/14/2018 1:29:01 PM Current Meds Medication NameInstruction Acetaminophen 325 MG Oral TabletTAKE 3 TABLETS 3 TIMES A DAY. Albuterol-Ipratropium 2.5-0.5 MG/3ML SOLNUSE 1 UNIT DOSE IN NEBULIZER EVERY 6 HOURS NEEDED. Benzonatate 200 MG Oral CapsuleTake 1 capsule by mouth every 6 hours as needed. Bisacodyl Laxative 10 MG Rectal SuppositoryUSE DIRECTED. Enoxaparin Sodium 40 MG/0.4ML Subcutaneous SolutionSubcutaneous every 12 hours. GuaiFENesin TABSTAKE 1 TABLET EVERY 12 HOURS NEEDED. HydroCHLOROthiazide 12.5 MG Oral TabletTAKE 1 TABLET DAILY. Levothyroxine Sodium 50 MCG Oral TabletTAKE 1 TABLET DAILY. Lidocaine 5% (140 MG) PTCHUse as directed. Multi Vitamin Daily TABSTAKE 1 TABLET DAILY. Naproxen 500 MG Oral TabletTAKE 1 TABLET EVERY 12 HOURS NEEDED. Oxybutynin Chloride 5 MG Oral TabletTAKE 2 TABLET BY MOUTH 4 TIMES A DAY. OxyCODONE HCl - 5 MG Oral TabletTAKE 1 TABLET BY MOUTH EVERY 4 TO 6 HOURS NEEDED FOR PAIN. Pantoprazole Sodium 40 MG Oral Tablet Delayed ReleaseTAKE 1 TABLET DAILY. Polyethylene Glycol 3350 GRAN17 grams by mouth 2 tiems a day. Potassium Chloride 10 MEQ TBCRTAKE 1 TABLET DAILY. Premarin 0.625 MG/GM Vaginal CreamINSERT 1 GRAM INTRAVAGINALLY DAILY. Simvastatin 40 MG Oral TabletTAKE 1 TABLET AT BEDTIME. Vitals Vital Signs Recorded: 15Dec2018 01:43PM Heart Rate80 [id number] [id number] Epplizkgu39 Height5 ft 4 in Physical Exam Constitutional - General appearance: No acute distress, well developed, well nourished and appearing her stated age. Musculoskeletal - Digits and nails: No visible deformity of joints. Inspection/palpation of joints, bones and muscles: Normal. Range of motion: Normal. Neurologic - Oriented to self, place, and time. incision along the back, c/d/i. Brittni removed today in clinic. Language: Fluid speech and intact cognition 2nd cranial nerve: Normal. 3rd, 4th, and 6th cranial nerves: Normal. 5th cranial nerve: Normal. 7th cranial nerve: Normal. 8th cranial nerve: Normal. 9th cranial nerve: Normal. 11th cranial nerve: Normal. 12th cranial nerve: Normal. Muscle strength: 5/5 strength both UE and LE without flacidity, rigidity, cogwheeling, or spasticity. No visible fasiculations 5/5 in AE, sensory grossly intact Muscle tone: No atrophy, abnormal movements, flaccidity, cogwheeling or spasticity Gait and Station: Abnormal. In wheelchair; gait not tested Sensation: Grossly intact to pinprick and temperature throughout all dermatomes. No allodynia Reflexes: Symmetric and normal deep tendon reflexes throughout. Negative Adams's sign. Toes down on Babinski. No clonus at ankles Coordination: No dysmetria, no dysdiadochokinesis, negative Romberg sign Mood and affect: Normal. Results/Data Surgical [id number] 12:00Fartun Hargrove Test NameResultFlagReference Case Surgical Pathology(Report) Name TRISH HUNT Pathologist: Samantha Martinez MD, Ph.D. Date of Procedure: 11/23/2018 Date Received: 11/23/2018 Date Reported 11/29/2018 Submitting Physician: FARTUN TAMAYO MD Location: [facility] Other External # FINAL DIAGNOSIS SPINE, THORACIC, EXCISION: --METASTATIC NON-SMALL CELL CARCINOMA CONSISTENT WITH ADENOCARCINOMA INVOLVING SOFT TISSUE AND BONE. SEE NOTE Note: Findings are consistent with previous ([id number]) Electronically Signed Out By Samantha Martinez MD, Ph.D./MAC By the signature on this report, the individual or group listed as making the Final Interpretation/Diagnosis certifies that they have reviewed this case. Clinical History: Metastatic tumor to thoracic spine Specimens Submitted As: A: TUMOR INFILTRATING THORACIC BONE Gross Description: Received fresh, labeled with the patient's name and hospital number and "tumor infiltrating thoracic bone", are multiple fragments of red-brown, soft tissue and bony tissue aggregating to 6.5 x 6.5 x 1.5 cm. Ornamenter Hand sections are submitted in 5 cassettes. DJO djo/11/24/2018 Provider Impressions Mrs. 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 Patient Discussion/Summary brittni removed today in clinic She is cleared for chemotherapy and radiation from a neurosurgical/wound healing standpoint f/u in 3 months. Signatures Electronically signed by : Fartun Tamayo MD; Dec 22 2018 8:06PM EST (Author) Normal [facility] Basic Metabolic Panelon 11-17 Calcium mass conc 9.1 mg/dL 8.4 - 10.2 mg/dL [facility] Chloride molar conc 106 mmol/L 98 - 108 mmol/L [facility] CO2 molar conc 27 mmol/L 21 - 32 mmol/L [facility] Creatinine mass conc 0.88 mg/dL 0.6 - 1 .2 mg/dL [facility] GFR/1.73 sq M predicted among blacks MDRD vol rate/area (S/P/Bld) mL/min/{1.73_m2} ml/min/1.7 3sq.m [facility] Comment on above: GFR Calc GFR/1.73 sq M predicted among non-blacks MDRD vol rate/area (S/P/Bld) mL/min/{1.73_m2} ml/min/1.7 3sq.m [facility] Comment on above: Non- GFR Calc eGFR is an estimated Glomerular Filtration Rate based on the value of the patient's serum creatinine. In outpatients, eGFR should be used as a helpful tool in screening for CKD. In inpatients or patients with acute renal failure, eGFR represents the GFR at the moment of the draw and should be used with caution. Glucose mass conc 115 mg/dL High 70 - 99 mg/dL [facility] Comment on above: This test result darrin ht be falsely depressed or falsely elevated on samples drawn from patients taking Sulfasalazine and Sulfapyridine. Venipuncture should occur prior to taking either of these drugs. Interpretation and review of laboratory results Abnormal [facility] Potassium molar conc 3.8 mmol/L 3.5 - 5 .1 mmol/L [facility] Sodium molar conc 139 mmol/L 135 - 145 mmol/L [facility] Urea nitrogen mass conc 8 mg/dL 8 - 25 mg/dL [facility] Calcium mass conc 9.1 mg/dL Normal 8.4-10.2 [facility] Comment on above: Performed By: #### C HEM8, CBCDIF #### Unless otherwise noted, all testing performed by [place] [address] CLIA: [id number] Carpenter Helper: Cliff Woods M.D. Chloride molar conc 106 mmol/L Normal 98-108 [facility] Comment on above: Performed By: #### C HEM8, CBCDIF #### Unless otherwise noted, all testing performed by [place] [address] CLIA: [id number] Carpenter Helper: Cliff Woods M.D. CO2 molar conc 27 mmol/L Normal 21-32 [facility] Comment on above: Performed By: #### C HEM8, CBCDIF #### Unless otherwise noted, all testing performed by [place] [address] CLIA: [id number] Carpenter Helper: Cliff Woods M.D. Creatinine mass conc 0.88 mg/dL Normal 0.60-1.20 [facility] Comment on above: Performed By: #### C HEM8, CBCDIF #### Unless otherwise noted, all testing performed by [place] [address] CLIA: [id number] Carpenter Helper: Cliff Woods M.D. GFR/1.73 sq M predicted among blacks MDRD vol rate/area (S/P/Bld) mL/min/{1.73_m2} Normal [facility] Comment on above: Result Comment: Afri can Nigerian GFR Calc Performed By: #### C HEM8, CBCDIF #### Unless otherwise noted, all testing performed by [place] [address] CLIA: [id number] Carpenter Helper: Cliff Woods M.D. GFR/1.73 sq M predicted among non-blacks MDRD vol rate/area (S/P/Bld) mL/min/{1.73_m2} Normal [facility] Comment on above: Result Comment: Non- GFR Calc eGFR is an estimated Glomerular Filtration Rate based on the value of the patient's serum creatinine. In outpatients, eGFR should be used as a helpful tool in screening for CKD. In inpatients or patients with acute renal failure, eGFR represents the GFR at the moment of the draw and should be used with caution. Performed By: #### C HEM8, CBCDIF #### Unless otherwise noted, all testing performed by [place] [address] CLIA: [id number] Carpenter Helper: Cliff Woods M.D. Glucose mass conc 115 mg/dL High 70-99 [facility] Comment on above: Result Comment: This test result might be falsely depressed or falsely elevated on samples drawn from patients taking Sulfasalazine and Sulfapyridine. Venipuncture should occur prior to taking either of these drugs. Performed By: #### C HEM8, CBCDIF #### Unless otherwise noted, all testing performed by [place] [address] CLIA: [id number] Carpenter Helper: Cliff Woods M.D. Potassium molar conc 3.8 mmol/L Normal 3.5-5.1 [facility] Comment on above: Performed By: #### C HEM8, CBCDIF #### Unless otherwise noted, all testing performed by [place] [address] CLIA: [id number] Carpenter Helper: Cliff Woods M.D. Sodium molar conc 139 mmol/L Normal 135-145 [facility] Comment on above: Performed By: #### C HEM8, CBCDIF #### Unless otherwise noted, all testing performed by [place] [id number] CLIA: [id number] Carpenter Helper: Cliff Woods M.D. Urea nitrogen mass conc 8 mg/dL Normal 07-10 [facility] Comment on above: Performed By: #### C HEM8, CBCDIF #### Unless otherwise noted, all testing performed by [place] [address] CLIA: [id number] Carpenter Helper: Cliff Woods M.D. CBC AND DIFFERENTIALon 12-10 Basophils #/vol (Bld) 0.1 10*3/uL [facility] Basophils/100 WBC (Bld) 1.3 % [facility] Eosinophils #/vol (Bld) 0.6 10*3/uL High [facility] Eosinophils/100 WBC (Bld) 12.3 % [facility] Erythrocyte distribution width Ratio (RBC) 14.8 % High 10 - 14.4 % [facility] Hematocrit Volume Fraction (Bld) 30.2 % Low 34.4 - 44.8 % [facility] Hemoglobin mass conc (Bld) 9.9 g/dL Low 11.6 - 15.4 g/dL [facility] Interpretation and review of laboratory results Abnormal [facility] Lymphocytes #/vol (Bld) 1.1 10*3/uL [facility] Lymphocytes/100 WBC (Bld) 22.0 % [facility] MCH Entitic mass (RBC) 30.3 pg 27.9 - 33.9 pg [facility] MCHC mass conc (RBC) 33.0 g/dL Low 33.1 - 35.1 g/dL [facility] MCV Entitic volume (RBC) 91.9 fL [facility] Monocytes #/vol (Bld) 0.4 10*3/uL [facility] Monocytes/100 WBC (Bld) 8.7 % [facility] Neutrophils #/vol (Bld) 2.8 10*3/uL [facility] Platelet mean volume Entitic volume (Bld) 7.7 fL [facility] Platelets #/vol (Bld) 332 10*3/uL [facility] RBC #/vol (Bld) 3.28 10*6/uL Low [facility] lth Segmented Neut 55.7 % [facility] WBC #/vol (Bld) 5.0 10*3/uL [facility] CBC with Diffon 12-10-2018 Basophils #/vol (Bld) 0.1 K/mcL Normal 0-0.2 [facility] Comment on above: Performed By: #### C HEM8, CBCDIF #### Unless otherwise noted, all testing performed by [place] [address] CLIA: [id number] Carpenter Helper: Cliff Woods M.D. Basophils/100 WBC (Bld) 1.3 % Normal [facility] Comment on above: Performed By: #### C HEM8, CBCDIF #### Unless otherwise noted, all testing performed by [place] [address] CLIA: [id number] Carpenter Helper: Cliff Woods M.D. Eosinophils #/vol (Bld) 0.6 K/mcL High 0-0.5 [facility] Comment on above: Performed By: #### C HEM8, CBCDIF #### Unless otherwise noted, all testing performed by [place] [address] CLIA: [id number] Carpenter Helper: Cliff Woods M.D. Eosinophils/100 WBC (Bld) 12.3 % Normal [facility] Comment on above: Performed By: #### C HEM8, CBCDIF #### Unless otherwise noted, all testing performed by [place] [address] CLIA: [id number] Carpenter Helper: Cliff Woods M.D. Erythrocyte distribution width Ratio (RBC) 14.8 % High 10.0-14.4 [facility] Comment on above: Performed By: #### C HEM8, CBCDIF #### Unless otherwise noted, all testing performed by [place] [address] CLIA: [id number] Carpenter Helper: Cliff Woods M.D. Hematocrit Volume Fraction (Bld) 30.2 % Low 34.4-44.8 [facility] Comment on above: Performed By: #### C HEM8, CBCDIF #### Unless otherwise noted, all testing performed by [place] [address] CLIA: [id number] Carpenter Helper: Cliff Woods M.D. Hemoglobin mass conc (Bld) 9.9 g/dL Low 11.6-15.4 [facility] Comment on above: Performed By: #### C HEM8, CBCDIF #### Unless otherwise noted, all testing performed by [place] [address] CLIA: [id number] Carpenter Helper: Cliff Woods M.D. Lymphocytes #/vol (Bld) 1.1 K/mcL Normal 1.0-3.7 [facility] Comment on above: Performed By: #### C HEM8, CBCDIF #### Unless otherwise noted, all testing performed by [place] [address] CLIA: [id number] Carpenter Helper: Cliff Woods M.D. Lymphocytes/100 WBC (Bld) 22.0 % Normal [facility] Comment on above: Performed By: #### C HEM8, CBCDIF #### Unless otherwise noted, all testing performed by [place] [address] CLIA: [id number] Carpenter Helper: Cliff Woods M.D. MCH Entitic mass (RBC) 30.3 pg Normal 27.9-33.9 [facility] Comment on above: Performed By: #### C HEM8, CBCDIF #### Unless otherwise noted, all testing performed by [place] [address] CLIA: [id number] Carpenter Helper: Cliff Woods M.D. MCHC mass conc (RBC) 33.0 g/dL Low 33.1-35.1 [facility] Comment on above: Performed By: #### C HEM8, CBCDIF #### Unless otherwise noted, all testing performed by [place] [id number] CLIA: [id number] Carpenter Helper: Cliff Woods M.D. MCV Entitic volume (RBC) 91.9 fL Normal 82.6-98.9 [facility] Comment on above: Performed By: #### C HEM8, CBCDIF #### Unless otherwise noted, all testing performed by [place] [address] CLIA: [id number] Carpenter Helper: Cliff Woods M.D. Monocytes #/vol (Bld) 0.4 K/mcL Normal 0.1-0.6 [facility] Comment on above: Performed By: #### C HEM8, CBCDIF #### Unless otherwise noted, all testing performed by [place] [address] CLIA: [id number] Carpenter Helper: Cliff Woods M.D. Monocytes/100 WBC (Bld) 8.7 % Normal [facility] Comment on above: Performed By: #### C HEM8, CBCDIF #### Unless otherwise noted, all testing performed by [place] [address] CLIA: [id number] Carpenter Helper: Cliff Woods M.D. Neutrophils #/vol (Bld) 2.8 K/mcL Normal 1.2-6.9 [facility] Comment on above: Performed By: #### C HEM8, CBCDIF #### Unless otherwise noted, all testing performed by [place] [address] CLIA: [id number] Carpenter Helper: Cliff Woods M.D. Platelet mean volume Entitic volume (Bld) 7.7 fL Normal 7.0-10.6 [facility] Comment on above: Performed By: #### C HEM8, CBCDIF #### Unless otherwise noted, all testing performed by [place] [address] CLIA: [id number] Carpenter Helper: Cliff Woods M.D. Platelets #/vol (Bld) 332 K/mcL Normal 162-402 [facility] Comment on above: Performed By: #### C HEM8, CBCDIF #### Unless otherwise noted, all testing performed by [place] [address] CLIA: [id number] Carpenter Helper: Cliff Woods M.D. RBC #/vol (Bld) 3.28 M/mcL Low 3.7-5.0 [facility] Comment on above: Performed By: #### C HEM8, CBCDIF #### Unless otherwise noted, all testing performed by [place] [address] CLIA: [id number] Carpenter Helper: Cliff Woods M.D. Segmented Neut % 55.7 % Normal [facility] Comment on above: Performed By: #### C HEM8, CBCDIF #### Unless otherwise noted, all testing performed by [place] [address] CLIA: [id number] Carpenter Helper: Cliff Woods M.D. WBC #/vol (Bld) 5.0 K/mcL Normal 3.4-10.6 [facility] Comment on above: Performed By: #### C HEM8, CBCDIF #### Unless otherwise noted, all testing performed by [place] [address] CLIA: [id number] Carpenter Helper: Cliff Woods M.D. Clinical Event Note-Hospital dischargeon 12-04-2018 Clinical Event Note-Hospital discharge Event: Topic: Hospital discharge Details: On 12/04/18 Ms. Hunt was discharged to SNF in a stable condition. She was supposed to leave the prior day, but ambulance transport could not be arranged. Provider / Team Contact Information: Provider/Team Contact Info-Pager Number: Austin Amanda CNP/ pager [phone] Electronic Signatures: Austin Amanda (DEFENCE INTELLIGENCE ANALYST-FAMILY PROTECTION SPECIALIST) (Signed 04-Dec-2018 12:43) Authored: Event, Provider / Team Contact Information Last Updated: 04-Dec-2018 12:43 by Austin Amanda (DEFENCE INTELLIGENCE ANALYST-FAMILY PROTECTION SPECIALIST) Normal [facility] CBCon 12-03-2018 Erythrocyte distribution width Ratio (RBC) 14.1 % Normal 11.5 - 14.5 [facility] Comment on above: Performed By: #### C BCDF #### [facility] [address] [place] [address] Hematocrit Volume Fraction (Bld) 29.9 % Low 36.0 - 46.0 [facility] Comment on above: Performed By: #### C BCDF #### [facility] [address] [place] [address] Hemoglobin mass conc (Bld) 9.1 g/dL Low 12.0 - 16.0 [facility] Comment on above: Performed By: #### C BCDF #### [facility] [address] [place], [place] MCHC mass conc (RBC) 30.4 g/dL Low 32.0 - 36.0 [facility] Comment on above: Performed By: #### C BCDF #### [facility] [address] [place] [address] MCV Entitic volume (RBC) 100 fL Normal 80 - 100 [facility] Comment on above: Performed By: #### C BCDF #### [facility] [address] [place], [place] Nucleated RBC/100 WBC Ratio (Bld) 0.0 /100 WBC Normal 0.0-0.0 [facility] Comment on above: Performed By: #### C BCDF #### [facility] [address] [place] [address] Platelets #/vol (Bld) 510 10*3/uL High 150 - 450 [facility] Comment on above: Performed By: #### C BCDF #### [facility] [address] [place] [address] RBC #/vol (Bld) 2.99 x10E12/L Low 4.00 - 5.20 [facility] Comment on above: Performed By: #### C BCDF #### [facility] [address] [place] [address] WBC #/vol (Bld) 7.1 10*3/uL Normal 4.4 - 11.3 [facility] Comment on above: Performed By: #### C BCDF #### [facility] [address] [place] [address] Daily Progress Note-Palliati ve Careon 12-03-2018 Protein mass conc Consult Type: subseq uent visit/care Service: Palliative Care Subjective Data: TRISH [...] complaints Objective Data: Objective Information: T PRBPSpO2 [id number]/7195% Date/Time12/03 5: 5: 5: 5: 5:13 Range(36.4C [...] Psychological: calm, cooperative Medication: Medications: Continuous Medications ----- No continuous medications are active Scheduled Medications ----- 1. Acetaminophen: 975 mg Oral 2. Conjugated Estrogens 0.625mg/ gram Va.25 applicatorful Vaginal At Bedtime 3. guaiFENesin Extended Release: 1200 mg Oral Every 12 Hours 4. levoFLOXacin: 500 mg Oral Every 24 Hours 5. Levothyroxine: 50 microgram(s) Oral Daily 6. Lidocaine 5% TransDermal: 1 patch TransDermal Every 24 Hours 7. Oxybutynin: 5 mg Oral 4 Times a Day 8. oxyCODONE Immediate Release: 5 mg Oral 9. Pantoprazole: 40 mg Oral Daily 10. Polyethylene Glycol: 17 gram(s) Oral 2 Times a Day 11. Simvastatin: 20 mg Oral At Bedtime PRN Medications ----- 1. Albuterol 2.5 mg/ 3 mL Nebulizer [...] contact team with any questions or concerns. [id number] Electronic Signatures: Annette Keller) (Signed 03-Dec-2018 16:32) Authored: Service, Subjective Data, Objective Data, Assessment and Plan, Signature/Cosignature/Attes tation Last Updated: 03-Dec-2018 16:32 by Annette Keller) [facility] BASIC METABOLIC PANELon 11-16 Anion gap molar conc 12 mmol/L Normal 10 - 20 [facility] Comment on above: Performed By: #### C BCDF #### [facility] [address] [place] [address] Calcium mass conc 8.6 mg/dL Normal 8.6 - 10.6 [facility] Comment on above: Performed By: #### C BCDF #### [facility] [address] [place] [address] Chloride molar conc 104 mmol/L Normal 98 - 107 [facility] Comment on above: Performed By: #### C BCDF #### [facility] [address] [place] [address] Creatinine mass conc 0.94 mg/dL Normal 0.50 - 1.05 [facility] Comment on above: Performed By: #### C BCDF #### [facility] [address] [place] [address] GFR- AM. 70 mL/min/1.73m2 Normal >60 [facility] Comment on above: Result Comment: CALC ULATIONS OF ESTIMATED GFR ARE PERFORMED USING THE MDRD STUDY EQUATION FOR THE IDMS-TRACEABLE CREATININE METHODS. CLIN CHEM 2007;53:766-72 Performed By: #### C BCDF #### [facility] [address] [place] [address] GFR-NON AM. 58 mL/min/1.73m2 Abnormal >60 [facility] Comment on above: Performed By: #### C BCDF #### [facility] [address] [place] [address] Glucose mass conc 110 mg/dL High 74 - 99 [facility] Comment on above: Performed By: #### C BCDF #### [facility] [address] [place] [address] HCO3 molar conc (Bld) 26 mmol/L Normal 21 - 32 [facility] Comment on above: Performed By: #### C BCDF #### [facility] [address] [place] [address] Potassium molar conc 4.3 mmol/L Normal 3.5 - 5.3 [facility] Comment on above: Performed By: #### C BCDF #### [facility] [facility] [address] [place] [address] Sodium molar conc 138 mmol/L Normal 136 - 145 [facility] Comment on above: Performed By: #### C BCDF #### [facility] [address] [place] [address] Urea nitrogen mass conc 10 mg/dL Normal 6 - 23 [facility] Comment on above: Performed By: #### C BCDF #### [facility] [address] [place] [address] CBCon 12-02-2018 Erythrocyte distribution width Ratio (RBC) 14.0 % Normal 11.5 - 14.5 [facility] Comment on above: Performed By: #### C BCDF #### [facility] [address] [place] [address] Hematocrit Volume Fraction (Bld) 32.4 % Low 36.0 - 46.0 [facility] Comment on above: Performed By: #### C BCDF #### [facility] [address] [place] [address] Hemoglobin mass conc (Bld) 9.7 g/dL Low 12.0 - 16.0 [facility] Comment on above: Performed By: #### C BCDF #### [facility] [address] [place] [address] MCHC mass conc (RBC) 29.9 g/dL Low 32.0 - 36.0 [facility] Comment on above: Performed By: #### C BCDF #### [facility] [address] [place] [address] MCV Entitic volume (RBC) 102 fL High 80 - 100 [facility] Comment on above: Performed By: #### C BCDF #### [facility] [address] [place] [address] Nucleated RBC/100 WBC Ratio (Bld) 0.0 /100 WBC Normal 0.0-0.0 [facility] Comment on above: Performed By: #### C BCDF #### [facility] [address] [place] [address] Platelets #/vol (Bld) 472 10*3/uL High 150 - 450 [facility] Comment on above: Performed By: #### C BCDF #### [facility] [address] [place] [address] RBC #/vol (Bld) 3.17 x10E12/L Low 4.00 - 5.20 [facility] Comment on above: Performed By: #### C BCDF #### [facility] [address] [place] [address] WBC #/vol (Bld) 6.9 10*3/uL Normal 4.4 - 11.3 [facility] Comment on above: Performed By: #### C BCDF #### [facility] [address] [place] [address] Daily Progress Note-Medicine on 12-02-2018 Protein mass conc Service: Medicine Subjective Data: TRISH HUNT is a 73 year old Female who is Hospital Day # 21 and POD #9 for T10-11 transpedicular decompression of tumor, T7-L2 instrumented fusion. I slept last night. I still have the cough, but it is a little better.". Overnight Events: Patient had an uneventful night. [...] Cholecystectomy - L4-L5 Decompression 1999 T PRBPSpO2 [id number]/7295% Date/Time12/02 14: 14: 14: 14: 14:00 Range(36.2C [...] over hemovac sites. Medication: Medications: Scheduled Medications ----- 1. Acetaminophen: 975 mg Oral 2. Conjugated Estrogens 0.625mg/ gram Va.25 applicatorful [...] IntraVenous Flush Every 12 Hours PRN Medications ----- 1. Albuterol 2.5 mg/ 3 mL Nebulizer [...] Serum 8.6 Complete Blood Count Trending View [id number] 11:40:00 01-Dec-2018 05:05:00 White Blood Cell Count6.9 11.1 Nucleated Erythrocyte Count0.0 0.0 Red Blood Cell Count3.17 L 2.66 L HGB9.7 L 8.0 L HCT32.4 L 26.8 L [id number] H 101 H MCHC29.9 L 29.9 L FNF819 H 371 RDW-CV14.0 14.3 11/30/18: URINE CULTURE,BACTERIAL [...] Cord Stimulator Implant who is transferred to [facility] 11/12/[address] [facility] after presenting with intractable progressive back [...] and chest pain with deep breath at [place] ER presentation 11/11/18. A CT of the [...] fusion patient desires to do this at [place] location. [facility] [place] [facility], but insurance accepted at [facility] in [place]. Dr. Arthur Gates of Oncology there saw her as an inpatient prior to her transfer here - arrange for follow up at [facility] with Dr. Arthur Gates of Oncology as well as Radiation Oncology there. Pathology and procedural reports as well as radiology reports faxed to them at [phone] for follow up arrangement. - Make CD of Imaging for patient to bring to [facility] appointment 2) T10 PATHOLOGIC METASTATIC FRACTURE w/ CORD COMPRESSION: Presented to [facility] 11/11/18 with intractable progressive back pain [...] A CT Chest, Abdomen and Pelvis at [place] showed a suspected Pathologic fracture of the [...] given Decadron with request for transfer to [facility] for Neurosurgery evaluation. Neurosurgery consulted. CT Thoracic and Lumbar Spine as well as MRI of entire spine done and on 11/23/18. Significant Pain was an issue and Palliative care consulted and Dexamethasone as well as a dose of Pamidronate given. She underwent a Thoracic Decompression and Fusion with back pain much improved. Post-operative thoracic x-ray done 11/26/18. Post-op MRI of the Spine under Anesthesia 11/26/18 reviewed by Neurosurgery. 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 Romance Toradol helped back pain and transitioned to Naproxen. Declined scheduled Oxycodone during the night - change scheduled Oxycodone from every 4 hours to qid - continue Naproxen 500 mg by mouth twice a day PRN breakthrough pain - Oxycodone 5 mg every 4 hours PRN breakthrough pain. - continue Acetaminophen 975 mg by mouth tid - follow up with Dr. Fartun Tamayo (Neurosurgery) 15-Dec-2018 14:00 - arrangement for follow up at [facility] requested 3) HCAP: [...] is agreeable to closer to home in [place]. Social work consulted. Family at bedside and supportive - daughter given CD disc of patient's radiologic examinations to bring to follow up at [facility] Follow up ----- PCP: Dr. Emil Braswell [phone] Urology: Dr. Neo Herrera Pharmacy: [facility] [place] ([place]) [phone] DME: Nebulizer Insurer: [employer] Medicare Family: / POA Healthcare - Kin Hunt [phone] Dtr. / 1st Alt. POA - Annita Sin [phone] / [phone] Dtr. / 2nd Alt. POA - Dionne Wilkes [phone] Follow Up: Dr. Fartun Tamayo (Neurosurgery) 15-Dec-2018 14:[address] [facility] [address] [facility] Signature/Cosignature/Attes tation: Provider/Team Contact Info-Pager Miriam Carlos [facility] # [phone] Attending Only - Shared Visit with Advanced [...] Signatures: Cheng Bethea) (Signed 02-Dec-2018 17:36) Authored: Signature/Cosignature/Attes tation Breanna, Nessa (DEFENCE INTELLIGENCE ANALYST-FAMILY PROTECTION SPECIALIST) (Signed 02-Dec-2018 21:33) Authored: Service, Subjective Data, Objective Data, Assessment and Plan, Signature/Cosignature/Attes clifford Last Updated: 02-Dec-2018 21:33 by Nessa Carlos (DEFENCE INTELLIGENCE ANALYST-FAMILY PROTECTION SPECIALIST) Normal [facility] Daily Progress Note-Palliati ve Careon 12-02-2018 Protein mass conc Consult Type: subseq uent visit/care Service: Palliative Care Subjective Data: TRISH [...] pain. Objective Data: Objective Information: T PRBPSpO2 Value36.33449073/6693% Date/Time12/02 4:5512/02 4: 4: 4: 4:55 Range(36.2C [...] lesions, no rashes Medication: Medications: Continuous Medications ----- No continuous medications are active Scheduled Medications ----- 1. Acetaminophen: 975 mg Oral 2. Conjugated Estrogens 0.625mg/ gram Va.25 applicatorful [...] IntraVenous Piggyback Every 12 Hours PRN Medications ----- 1. Albuterol 2.5 mg/ 3 mL Nebulizer [...] to Flush Policy Assessment and Plan: Assessment: Tirsh Hunt is a 73 yo F with [...] team with any questions or concerns at [id number]. Signature/Cosignature/Attes tation: Attending AttestationI saw and evaluated the patient. [...] awake and not q6. Call with questions, [phone]. Electronic Signatures: Annette Keller) (Signed 02-Dec-2018 14:27) Authored: Service, Signature/Cosignature/Attes tation Co-Signer: Subjective Data, Objective Data, Assessment and Plan, Signature/Cosignature/Attes tation Yvonne Pacheco (Resident)) (Signed 02-Dec-2018 09:53) Authored: Service, Subjective Data, Objective Data, Assessment and Plan, Signature/Cosignature/Attes tation Last Updated: 02-Dec-2018 14:27 by Annette Keller) Normal [facility] CBCon 12-01-2018 Erythrocyte distribution width Ratio (RBC) 14.3 % Normal 11.5 - 14.5 [facility] Comment on above: Performed By: #### C BCDF #### [facility] [address] [place] [address] Hematocrit Volume Fraction (Bld) 26.8 % Low 36.0 - 46.0 [facility] Comment on above: Performed By: #### C BCDF #### [facility] [address] [place] [address] Hemoglobin mass conc (Bld) 8.0 g/dL Low 12.0 - 16.0 [facility] Comment on above: Performed By: #### C BCDF #### [facility] [address] [place] [address] MCHC mass conc (RBC) 29.9 g/dL Low 32.0 - 36.0 [facility] Comment on above: Performed By: #### C BCDF #### [facility] [address] [place] [address] MCV Entitic volume (RBC) 101 fL High 80 - 100 [facility] Comment on above: Performed By: #### C BCDF #### [facility] [address] [place] [address] Nucleated RBC/100 WBC Ratio (Bld) 0.0 /100 WBC Normal 0.0-0.0 [facility] Comment on above: Performed By: #### C BCDF #### [facility] [address] [place] [address] Platelets #/vol (Bld) 371 10*3/uL Normal 150 - 450 [facility] Comment on above: Performed By: #### C BCDF #### [facility] [address] [place] [address] RBC #/vol (Bld) 2.66 x10E12/L Low 4.00 - 5.20 [facility] Comment on above: Performed By: #### C BCDF #### [facility] [address] [place] [address] WBC #/vol (Bld) 11.1 10*3/uL Normal 4.4 - 11.3 [facility] Comment on above: Performed By: #### C BCDF #### [facility] [address] [place] [address] Daily Progress Note-Medicine on 12-01-2018 Protein mass conc Service: Medicine Subjective Data: TRISH HUNT is a 73 year old Female who is Hospital Day # 20 and POD #8 for T10-11 transpedicular decompression of tumor, T7-L2 instrumented fusion. I slept pretty good. I have this cough now. It is different than the other cough and goes right through my back.". Overnight Events: Patient had an uneventful night. [...] Cholecystectomy - L4-L5 Decompression 1999 T PRBPSpO2 Value36.56341176/6496% Date/Time12/01 14: 14: 14: 14: 14:00 Range(36.2C [...] over hemovac sites. Medication: Medications: Scheduled Medications ----- 1. Acetaminophen: 975 mg Oral 2. Conjugated Estrogens 0.625mg/ gram Va.25 applicatorful [...] IntraVenous Flush Every 12 Hours PRN Medications ----- 1. Albuterol 2.5 mg/ 3 mL Nebulizer [...] laboratory results: Complete Blood Count Trending View [id number] 05:05:00 30-Nov-2018 05:54:00 White Blood Cell Count11.1 13.3 H Nucleated Erythrocyte Count0.0 0.0 Red Blood Cell Count2.66 L 2.84 L HGB8.0 L 8.6 L HCT26.8 L 27.5 L CEA349 H 97 MCHC29.9 L 31.3 L XCO415 341 RDW-CV14.3 14.3 Urinalysis 30-Nov-2018 10:00:00 ResultValue Color, Urine YELLOW Reference Range: STRAW,YELLOW Appearance, Urine HAZY Specific Clover, Urine 1.018 pH, Urine 5.0 Protein, Urine [...] NOTE Note: Findings are consistent with previous ([id number]) Radiology Results: Results: Xray Chest 2 View [...] Cord Stimulator Implant who is transferred to [facility] 11/12/[address] [facility] after presenting with intractable progressive back [...] and chest pain with deep breath at [place] ER presentation 11/11/18. A CT of the [...] fusion patient desires to do this at [place] location, although this is a [facility] Facility - await Oncology plans to follow up with Oncology and Radiation Oncology at [place] 2) T10 PATHOLOGIC METASTATIC FRACTURE w/ CORD COMPRESSION: Presented to [facility] 11/11/18 with intractable progressive back pain [...] A CT Chest, Abdomen and Pelvis at [place] showed a suspected Pathologic fracture of the [...] given Decadron with request for transfer to [facility] for Neurosurgery evaluation. Neurosurgery consulted. CT Thoracic [...] metastasis r/t # 1. 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 Romance Toradol helped back pain. - discontinue added [...] Flexeril PRN - follow up with Dr. Fartun Tamayo (Neurosurgery) 15-Dec-2018 14:00 3) HCAP: Developed [...] 5 mg four times a day - Vijay PRN 8) IMPAIRED FASTING GLUCOSE: Denies diagnosis [...] is agreeable to closer to home in [place]. Social work consulted. Family at bedside and supportive ----- PCP: Dr. Emil Braswell [phone] Urology: Dr. Neo Herrera Pharmacy: [facility] [place] ([place]) [phone] DME: Nebulizer Insurer: [employer] Medicare Family: / POA Healthcare - Kin Hunt [phone] Dtr. / 1st Alt. POA - Annita Sin [phone] / [phone] Dtr. / 2nd Alt. POA - Dionne Mini Wilkes [phone] Follow Up: Dr. Fartun Tamayo (Neurosurgery) 15-Dec-2018 14:[address] [facility] [address] [facility] Signature/Cosignature/Attes tation: Attending Only - Shared Visit with Advanced [...] Signatures: Cheng Bethea) (Signed 01-Dec-2018 16:41) Authored: Signature/Cosignature/Attes clifford Nessa Carlos (DEFENCE INTELLIGENCE ANALYST-FAMILY PROTECTION SPECIALIST) (Signed 01-Dec-2018 21:57) Authored: Service, Subjective Data, Objective Data, Assessment and Plan Last Updated: 01-Dec-2018 21:57 by Nessa Carlos (DEFENCE INTELLIGENCE ANALYST-FAMILY PROTECTION SPECIALIST) Normal [facility] Daily Progress Note-Palliati ve Careon 12-01-2018 Protein mass conc Consult Type: subseq uent visit/care Service: Palliative Care Subjective Data: TRISH [...] is 0/10. She admits that the oxycodone "completely wipes out my pain," although she did require more frequent dosing yesterday when she was getting up. She denies any chest pain, SOB, fevers/chills, abdominal pain, or dysuria and states that her appetite has been somewhat better. She still feels that she will benefit from further PT and is currently requiring the walker with ambulation. Objective Data: Objective Information: T PRBPSpO2 Value36.86888070/6694% Date/Time12/01 5: 5: 5: 5: 5:20 Range(36.2C [...] lesions, no rashes Medication: Medications: Continuous Medications ----- No continuous medications are active Scheduled Medications ----- 1. Acetaminophen: 975 mg Oral 2. Conjugated Estrogens 0.625mg/ gram Va.25 applicatorful [...] IntraVenous Flush Every 12 Hours PRN Medications ----- 1. Albuterol 2.5 mg/ 3 mL Nebulizer [...] team with any questions or concerns at [id number]. Signature/Cosignature/Attes tation: Attending AttestationI saw and evaluated the patient. [...] Annette Keller) (Signed 01-Dec-2018 16:43) Authored: Service, Signature/Cosignature/Attes tation Co-Signer: Service, Subjective Data, Objective Data, Assessment and Plan, Signature/Cosignature/Attes tation Yvonne Pacheco (Resident)) (Signed 01-Dec-2018 10:50) Authored: Service, Subjective Data, Objective Data, Assessment and Plan, Signature/Cosignature/Attes tation Last Updated: 01-Dec-2018 16:43 by Annette Keller) Normal [facility] Daily Progress Note-Radiatio n Oncologyon 12-01-2018 Protein mass conc Service: Radiation O ncology Subjective Data: TRISH HUNT is a 73 year old Female and today is Hospital Day # 20 and POD #8 for T10-11 transpedicular decompression of tumor, T7-L2 instrumented fusion. Ms. Hunt expressed interest in receiving radiation treatment in [place] due to proximity to family. Objective Data: Objective Information: T PRBPSpO2 [id number]/6496% Date/Time12/01 14: 14: 14: 14: 14:00 Range(36.2C [...] status post decompression and fusion on 12/03/18. [facility]KL[facility] DRIVER tumor board recommends post operative radiation therapy. Ms. Hunt waiting SNF placement. 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 Patient and family considering other sites. She and her granddaughter expressed interest in receiving treatment in [place] due to proximity to family. Ms. Hunt already has an appointment with medical oncology in [place], Dr. Yarbrough on 12/09/18 at 3 PM. She was set up to see Dr. Brianne Faulkner, radiation oncologist, 12/10/18 at 9:30 AM. Discharge profile updated. Ms. Holt's questions were answered, they were provided with radiation oncology's office number and were encouraged to call with questions. Please feel free to page [phone] team pager [phone] with questions. Electronic Signatures: Leandra Rosario (DEFENCE INTELLIGENCE ANALYST-FAMILY PROTECTION SPECIALIST) (Signed 01-Dec-2018 17:07) Authored: Service, Subjective Data, Objective Data, Assessment and Plan, Signature/Cosignature/Attes tation Last Updated: 01-Dec-2018 17:07 by Leandra Rosario (DEFENCE INTELLIGENCE ANALYST-FAMILY PROTECTION SPECIALIST) Normal [facility] TH CHEST 2 VIEW PA AND LATon 12-01-2018 TH CHEST 2 VIEW PA AND LAT Patient Name: TRISH HUNT STUDY: CHEST 2 VIEW PA AND LAT; 12/01/2018 3:46 pm INDICATION: Signs/Symptoms: cough with leukocytosis. COMPARISON: Chest radiograph 11/22/2018 ACCESSION NUMBER(S): [id number] ORDERING CLINICIAN: NESSA CARLOS FINDINGS: Patient is [...] as stated. This study was interpreted at [facility], [place], [place]. Electronically signed by: LIO CANNON MD Normal [facility] Tumor Board Note-Brain/Spine on 12-01-2018 Tumor Board Note-Brain/Spine Note: Tumor Board Note TRISH HUNT was presented at Brain/Spine Tumor Board Conference on 01-Dec-[address] Fartun Tamayo. Impression: Presented with recent Spinal Cord Stimulator Implant for Overactive Bladder 08/2018 at outside hospital with removal 10/2018 due to persistent back pain. Imaging showed lung lesion and suspected pathologic fracture T10. S/P Thoracic level 10 through thoracic level 11 transpedicular approach for decompression of metastatic spine tumor. Pathology consistent with metastatic adenocarcinoma, findings consistent with previous FNA LN 11R and 7. Recommendations: Radiation. Disclaimer SCC tumor board recommendations represent the consensus opinion of physicians present at a weekly patient care conference. The treating SCC physician is not always present, and many of the physicians formulating the recommendation have not personally seen or examined the patient under discussion. It is understood that the treating SCC physician considers the expertise of the Tumor Board Recommendation in formulating his/her plan for the patient. However, in many situations, based on individualized patient considerations, a different plan is determined by the treating physician to be the optimal medical management. Electronic Signatures: Laila Anderson (PT REG) (Signed 10-Dec-2018 09:00) Authored: Tumor Board, Disclaimer Last Updated: 10-Dec-2018 09:00 by Liala Anderson (PT REG) Normal [facility] CBCon 11-30-2018 Erythrocyte distribution width Ratio (RBC) 14.3 % Normal 11.5 - 14.5 [facility] Comment on above: Performed By: #### C BCDF #### [facility] [address] [place] [address] Hematocrit Volume Fraction (Bld) 27.5 % Low 36.0 - 46.0 [facility] Comment on above: Performed By: #### C BCDF #### [facility] [address] [place] [address] Hemoglobin mass conc (Bld) 8.6 g/dL Low 12.0 - 16.0 [facility] Comment on above: Performed By: #### C BCDF #### [facility] [address] [place] [address] MCHC mass conc (RBC) 31.3 g/dL Low 32.0 - 36.0 [facility] Comment on above: Performed By: #### C BCDF #### [facility] [address] [place] [address] MCV Entitic volume (RBC) 97 fL Normal 80 - 100 [facility] Comment on above: Performed By: #### C BCDF #### [facility] [address] [place] [address] Nucleated RBC/100 WBC Ratio (Bld) 0.0 /100 WBC Normal 0.0-0.0 [facility] Comment on above: Performed By: #### C BCDF #### [facility] [address] [place] [address] Platelets #/vol (Bld) 341 10*3/uL Normal 150 - 450 [facility] Comment on above: Performed By: #### C BCDF #### [facility] [address] [place] [address] RBC #/vol (Bld) 2.84 x10E12/L Low 4.00 - 5.20 [facility] Comment on above: Performed By: #### C BCDF #### [facility] [address] [place] [address] WBC #/vol (Bld) 13.3 10*3/uL High 4.4 - 11.3 [facility] Comment on above: Performed By: #### C BCDF #### [facility] [address] [place] [address] Daily Progress Note-Medicine on 11-30-2018 Protein mass conc Service: Medicine Subjective Data: TRISH HUNT is a 73 year old Female who is Hospital Day # 19 and POD #7 for T10-11 transpedicular decompression of tumor, T7-L2 instrumented fusion. Objective Data: Objective Information: T PRBPSpO2 [id number]/6294% Date/Time11/30 5: 5: 5: 5: 5:42 Range(36.5C [...] - lower back Medication: Medications: Continuous Medications ----- No continuous medications are active Scheduled Medications ----- 1. Acetaminophen: 975 mg Oral 2. Conjugated Estrogens 0.625mg/ gram Va.25 applicatorful [...] IntraVenous Flush Every 12 Hours PRN Medications ----- 1. Albuterol 2.5 mg/ 3 mL Nebulizer [...] Reference Range: STRAW,YELLOW Appearance, Urine HAZY Specific Clover, Urine 1.018 pH, Urine 5.0 Protein, Urine [...] Cord Stimulator Implant who is transferred to [facility] 11/12/[address] [facility] after presenting with intractable progressive back [...] and chest pain with deep breath at [place] ER presentation 11/11/18. 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 Post-operative thoracic x-ray done 11/26/18. Post-op MRI of [...] Flexeril PRN - follow up with Dr. Fartun Tamayo (Neurosurgery) 15-Dec-2018 14:00 LEFT HIP PAIN: [...] is agreeable to closer to home in [place]. Social work consulted. Family at bedside and supportive no beds are available at [facility] at this time family updated on POC Signature/Cosignature/Attes tation: Provider/Team Contact Info-Pager [phone] Attending Only - Shared Visit with Advanced [...] Signatures: Cheng Bethea) (Signed 30-Nov-2018 16:26) Authored: Signature/Cosignature/Attes tation Jordan Saunders (DEFENCE INTELLIGENCE ANALYST-FAMILY PROTECTION SPECIALIST) (Signed 30-Nov-2018 16:00) Authored: Service, Subjective Data, Objective Data, Assessment and Plan, Signature/Cosignature/Attes tation Last Updated: 30-Nov-2018 16:26 by Cheng Bethea) Normal [facility] Daily Progress Note-Palliati ve Careon 11-30-2018 Protein mass conc Consult Type: subseq uent visit/care Service: Palliative Care Subjective Data: TRISH [...] to some L-sided hip pain and occasional "twinges" of pain in her back, but as [...] pain. Objective Data: Objective Information: T PRBPSpO2 [id number]/6294% Date/Time11/30 5: 5: 5: 5: 5:42 Range(36.5C [...] lesions, no rashes Medication: Medications: Continuous Medications ----- No continuous medications are active Scheduled Medications ----- 1. Acetaminophen: 975 mg Oral 2. Conjugated Estrogens 0.625mg/ gram Va.25 applicatorful [...] IntraVenous Flush Every 12 Hours PRN Medications ----- 1. Albuterol 2.5 mg/ 3 mL Nebulizer [...] team with any questions or concerns at [id number]. Signature/Cosignature/Attes tation: Attending AttestationI saw and evaluated the patient. [...] Annette Keller) (Signed 30-Nov-2018 15:58) Authored: Service, Signature/Cosignature/Attes tation Co-Signer: Service, Subjective Data, Objective Data, Assessment and Plan, Signature/Cosignature/Attes tation Yvonne Pacheco (Resident)) (Signed 30-Nov-2018 13:38) Authored: Service, Subjective Data, Objective Data, Assessment and Plan, Signature/Cosignature/Attes tation Last Updated: 30-Nov-2018 15:58 by Annette Keller) Normal [facility] RENAL FUNCTION PANELon 11-30 Albumin mass conc 2.7 g/dL Low 3.4 - 5.0 [facility] Comment on above: Performed By: #### C BCDF #### [facility] [address] [place] [address] Anion gap molar conc 12 mmol/L Normal 10 - 20 [facility] Comment on above: Performed By: #### C BCDF #### [facility] [address] [place] [address] Calcium mass conc 7.7 mg/dL Low 8.6 - 10.6 [facility] Comment on above: Performed By: #### C BCDF #### [facility] [address] [place] [address] Chloride molar conc 107 mmol/L Normal 98 - 107 [facility] Comment on above: Performed By: #### C BCDF #### [facility] [address] [place] [address] Creatinine mass conc 0.83 mg/dL Normal 0.50 - 1.05 [facility] Comment on above: Performed By: #### C BCDF #### [facility] [address] [place] [address] GFR- AM. >60 Normal >60 [facility] Comment on above: Result Comment: CALC ULATIONS OF ESTIMATED GFR ARE PERFORMED USING THE MDRD STUDY EQUATION FOR THE IDMS-TRACEABLE CREATININE METHODS. CLIN CHEM 2007;53:766-72 Performed By: #### C BCDF #### [facility] [address] [place] [address] GFR-NON AM. >60 Normal >60 [facility] Comment on above: Performed By: #### C BCDF #### [facility] [address] [place] [address] Glucose mass conc 122 mg/dL High 74 - 99 [facility] Comment on above: Performed By: #### C BCDF #### [facility] [address] [place] [address] HCO3 molar conc (Bld) 25 mmol/L Normal 21 - 32 [facility] Comment on above: Performed By: #### C BCDF #### [facility] [address] [place] [address] Phosphate mass conc 2.8 mg/dL Normal 2.5 - 4.9 [facility] Comment on above: Result Comment: The performance characteristics of phosphorus testing in heparinized plasma have been validated by the individual laboratory site where testing is performed. Testing on heparinized plasma is not approved by the FDA; however, such approval is not necessary. Performed By: #### C BCDF #### [facility] [address] [place] [address] Potassium molar conc 3.9 mmol/L Normal 3.5 - 5.3 [facility] Comment on above: Performed By: #### C BCDF #### [facility] [address] [place] [address] Sodium molar conc 140 mmol/L Normal 136 - 145 [facility] Comment on above: Performed By: #### C BCDF #### [facility] [address] [place] [address] Urea nitrogen mass conc 17 mg/dL Normal 6 - 23 [facility] Comment on above: Performed By: #### C BCDF #### [facility] [address] [place] [address] UA MICROSCOPICon 11-30-2018 RBC 14 /HPF Abnormal 0-5 [facility] Comment on above: Performed By: #### C BCDF #### [facility] [address] [place] [address] WBC #/vol (Bld) 10*3/uL Abnormal 0-5 [facility] Comment on above: Performed By: #### C BCDF #### [facility] [address] [place] [address] WBC CLUMPS MANY Normal [facility] Comment on above: Performed By: #### C BCDF #### [facility] [address] [place] [address] URINALYSISon 11-30-2018 Appearance Nom (U) HAZY Normal CLEAR [facility] Comment on above: Performed By: #### C BCDF #### [facility] [address] [place] [address] Bilirubin mass conc Negative Normal NEGATIVE [facility] Comment on above: Performed By: #### C BCDF #### [facility] [address] [place] [address] BLOOD SMALL (1+) Abnormal NEGATIVE [facility] Comment on above: Performed By: #### C BCDF #### [facility] [address] [place] [address] Color Nom (U) YELLOW Normal STRAW,YELL OW [facility] Comment on above: Performed By: #### C BCDF #### [facility] [address] [place] [address] Glucose mass conc Negative Normal NEGATIVE [facility] Comment on above: Performed By: #### C BCDF #### [facility] [address] [place] [address] Ketones Ql (U) Negative Normal NEGATIVE [facility] Comment on above: Performed By: #### C BCDF #### [facility] [address] [place] [address] Leukocyte esterase Test strip Ql (U) MODERATE (2+) Abnormal NEGATIVE [facility] Comment on above: Performed By: #### C BCDF #### [facility] [address] [place] [address] Nitrite Ql (U) Negative Normal NEGATIVE [facility] Comment on above: Performed By: #### C BCDF #### [facility] [address] [place] [address] pH (Bld) 5.0 Normal 5.0 - 8.0 [facility] Comment on above: Performed By: #### C BCDF #### [facility] [address] [place] [address] Protein mass conc (U) 100 (2+) Abnormal NEGATIVE [facility] Comment on above: Performed By: #### C BCDF #### [facility] [address] [place] [address] Specific gravity Relative Density (U) 1.018 Normal 1.005 - 1.035 [facility] Comment on above: Performed By: #### C BCDF #### [facility] [address] [place] [address] Urobilinogen Qn (U) 4.0 mg/dL High 0.0 - 1.9 [facility] Comment on above: Result Comment: SOME PIGMENTS AND MEDICATIONS MAY CAUSE A FALSE POSITIVE UROBILINOGEN Performed By: #### C BCDF #### [facility] [address] [place] [address] URINE CULTURE,BACTERIALon URINE CULTURE,BACTERIAL PATIENT: TRISH HUNT LOCATION: [place] [address] BILL#: [id number] : 41 AGE: SEX: F ORDERED BY: [...] SDD=SUSCEPTIBLE DOSE DEPENDENT NS=NONSUSCEPTIBLE X=REPORTED IN ERROR Normal [facility] Comment on above: Performed By: #### C BCDF #### [facility] [address] [address] [address] BN HIP, UNILATERAL W/PELVIS WHEN PERFORMED 2-3 VIEWSon 11-29-2018 BN HIP, UNILATERAL W/PELVIS WHEN PERFORMED 2-3 VIEWS Patient Name: TRISH HUNT STUDY: BN HIP, UNILATERAL W/PELVIS WHEN PERFORMED 2-3 VIEWS; 11/28/2018 10:47 pm INDICATION: Signs/Symptoms: pain. COMPARISON: None. ACCESSION NUMBER(S): [id number] ORDERING CLINICIAN: NESSA CARLOS FINDINGS: Moderate bilateral [...] as stated. This study was interpreted at [place], [place]. Electronically signed by: SARMAD CHAMPION MD Normal [facility] CBCon 11-29-2018 Erythrocyte distribution width Ratio (RBC) 13.9 % Normal 11.5 - 14.5 [facility] Comment on above: Performed By: #### C BCDF #### [facility] [address] [place] [address] Hematocrit Volume Fraction (Bld) 26.4 % Low 36.0 - 46.0 [facility] Comment on above: Performed By: #### C BCDF #### [facility] [address] [place] [address] Hemoglobin mass conc (Bld) 8.3 g/dL Low 12.0 - 16.0 [facility] Comment on above: Performed By: #### C BCDF #### [facility] [address] [place] [address] MCHC mass conc (RBC) 31.4 g/dL Low 32.0 - 36.0 [facility] Comment on above: Performed By: #### C BCDF #### [facility] [address] [place] [address] MCV Entitic volume (RBC) 97 fL Normal 80 - 100 [facility] Comment on above: Performed By: #### C BCDF #### [facility] [address] [place] [address] Nucleated RBC/100 WBC Ratio (Bld) 0.0 /100 WBC Normal 0.0-0.0 [facility] Comment on above: Performed By: #### C BCDF #### [facility] [address] [place] [address] Platelets #/vol (Bld) 296 10*3/uL Normal 150 - 450 [facility] Comment on above: Performed By: #### C BCDF #### [facility] [address] [place] [address] RBC #/vol (Bld) 2.72 x10E12/L Low 4.00 - 5.20 [facility] Comment on above: Performed By: #### C BCDF #### [facility] [address] [place] [address] WBC #/vol (Bld) 9.2 10*3/uL Normal 4.4 - 11.3 [facility] Comment on above: Performed By: #### C BCDF #### [facility] [address] [place] [address] Daily Progress Note-Medicine on 11-29-2018 Protein mass conc Service: Medicine Subjective Data: TRISH HUNT is a 73 year old Female who is Hospital Day # 18 and POD #6 for T10-11 transpedicular decompression of tumor, T7-L2 instrumented fusion. Objective Data: Objective Information: T PRBPSpO2 [id number]/6794% Date/Time11/29 9: 9: 9: 9: 9:31 Range(36.5C [...] - lower back Medication: Medications: Continuous Medications ----- No continuous medications are active Scheduled Medications ----- 1. Acetaminophen: 975 mg Oral 2. Conjugated Estrogens 0.625mg/ gram Va.25 applicatorful [...] IntraVenous Flush Every 12 Hours PRN Medications ----- 1. Albuterol 2.5 mg/ 3 mL Nebulizer [...] reviewed these laboratory results: Complete Blood Count 14-Hollis-2019 04:44:00 ResultValue White Blood Cell Count 9.2 [...] lung base. The study was interpreted at [facility]. MRI T Spine w/wo Contrast [Nov 26 2018 5:09PM] Assessment and Plan: Assessment: Trish Hunt is a 73 year old female former smoker w/ PMHx significant for HTN, Impaired Fasting Glucose, Hyperlipidemia, Peripheral Neuropathy, Hypothyroidism, GERD, Morbid Obesity and Recent Spinal Cord Stimulator Implant who is transferred to [facility] 11/12/[address] [facility] after presenting with intractable progressive back [...] and chest pain with deep breath at [place] ER presentation 11/11/18. 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 Post-operative thoracic x-ray done 11/26/18. Post-op MRI of [...] Flexeril PRN - follow up with Dr. Fartun Tamayo (Neurosurgery) 15-Dec-2018 14:00 LEFT HIP PAIN: Developed yesterday with weight bearing. Persists today. Reports location as lateral hip. PET scan noted a L5 transverse process lytic lesion., - Left hip x-ray 2 view awaiting read ACUTE BLOOD LOSS ANEMIA: Post-operative. H&H 14 & 46 at admit, decreased to 8 & 25 post-op 1/9/18 recieved 1 unit of blood post o[p [...] is agreeable to closer to home in [place]. Social work consulted. Family at bedside and supportive Signature/Cosignature/Attes tation: Provider/Team Contact Info-Pager [phone] Attending Only - Shared Visit with Advanced [...] she is agree to transitioning off of COIN MACHINE MECHANIC. will do this and follow up further pal care recommendations. benefit from longer acting agent like fentanyl will also continue to work on bowel care. patient expressed some fullness, although didn't believe she is constipated. awaiting read on hip xrays still. Electronic Signatures: Cheng Bethea) (Signed 29-Nov-2018 18:35) Authored: Signature/Cosignature/Attes Jordan Reveles (DEFENCE INTELLIGENCE ANALYST-FAMILY PROTECTION SPECIALIST) (Signed 29-Nov-2018 19:09) Authored: Service, Subjective Data, Objective Data, Assessment and Plan, Signature/Cosignature/Attes clifford Last Updated: 29-Nov-2018 19:09 by Jordan Saunders (DEFENCE INTELLIGENCE ANALYST-FAMILY PROTECTION SPECIALIST) [facility] Daily Progress Note-Palliati ve Careon 11-29-2018 Protein mass conc Consult Type: subseq uent visit/care Service: Palliative Care Subjective Data: TRISH HUNT is a 73 year old Female who is Hospital Day # 18 and POD #6 for T10-11 transpedicular decompression of tumor, T7-L2 instrumented fusion. This morning, the patient states that she continues to have back pain. She rates it 5/10, and describes it as midline "kinking" side pain that radiates to both sides [...] yesterday. Objective Data: Objective Information: T PRBPSpO2 [id number]/6597% Date/Time11/29 13: 13: 13: 13: 13:47 Range(36.5C [...] lesions, no rashes Medication: Medications: Continuous Medications ----- No continuous medications are active Scheduled Medications ----- 1. Acetaminophen: 975 mg Oral 2. Conjugated Estrogens 0.625mg/ gram Va.25 applicatorful [...] IntraVenous Flush Every 12 Hours PRN Medications ----- 1. Albuterol 2.5 mg/ 3 mL Nebulizer [...] for pain management. Recommendations: - transition from COIN MACHINE MECHANIC pump to PO pain regimen - required [...] team with any questions or concerns at [phone]. Signature/Cosignature/Attes tation: Attending AttestationI saw and evaluated the patient. [...] above attestation) on 29-Nov-2018 Comments/ Additional Findings COIN MACHINE MECHANIC interrogated at 1006; pt had used hydromorphone IV 2.6 mg with a 20/21 dose/demand ratio. Using this (52mg OME or 35 mg oxycodone-equivalents) for her 24h requirement we made the above conversions to oxycodone which includes a small dose reduction for incomplete cross-tolerance. Will follow. Call with questions, [phone]. Electronic Signatures: Annette Keller) (Signed 29-Nov-2018 19:30) Authored: Service, Signature/Cosignature/Attes tation Co-Signer: Service, Subjective Data, Objective Data, Assessment and Plan, Signature/Cosignature/Attes tation Yvonne Pacheco (Resident)) (Signed 29-Nov-2018 16:15) Authored: Service, Subjective Data, Objective Data, Assessment and Plan, Signature/Cosignature/Attes tation Last Updated: 29-Nov-2018 19:30 by Annette Keller) Normal [facility] RENAL FUNCTION PANELon 11-29 Albumin mass conc 2.6 g/dL Low 3.4 - 5.0 [facility] Comment on above: Performed By: #### C BCDF #### [facility] [address] [place] [address] Anion gap molar conc 13 mmol/L Normal 10 - 20 [facility] Comment on above: Performed By: #### C BCDF #### [facility] [address] [place] [address] Calcium mass conc 7.6 mg/dL Low 8.6 - 10.6 [facility] Comment on above: Performed By: #### C BCDF #### [facility] [address] [place] [address] Chloride molar conc 105 mmol/L Normal 98 - 107 [facility] Comment on above: Performed By: #### C BCDF #### [facility] [address] [place] [address] Creatinine mass conc 0.85 mg/dL Normal 0.50 - 1.05 [facility] Comment on above: Performed By: #### C BCDF #### [facility] [address] [place] [address] GFR- AM. >60 Normal >60 [facility] Comment on above: Result Comment: CALC ULATIONS OF ESTIMATED GFR ARE PERFORMED USING THE MDRD STUDY EQUATION FOR THE IDMS-TRACEABLE CREATININE METHODS. CLIN CHEM 2007;53:766-72 Performed By: #### C BCDF #### [facility] [address] [place] [address] GFR-NON AM. >60 Normal >60 [facility] Comment on above: Performed By: #### C BCDF #### [facility] [address] [place] [address] Glucose mass conc 93 mg/dL Normal 74 - 99 [facility] Comment on above: Performed By: #### C BCDF #### [facility] [address] [place] [address] HCO3 molar conc (Bld) 26 mmol/L Normal 21 - 32 [facility] Comment on above: Performed By: #### C BCDF #### [facility] [address] [place] [address] Phosphate mass conc 3.7 mg/dL Normal 2.5 - 4.9 [facility] Comment on above: Result Comment: The performance characteristics of phosphorus testing in heparinized plasma have been validated by the individual laboratory site where testing is performed. Testing on heparinized plasma is not approved by the FDA; however, such approval is not necessary. Performed By: #### C BCDF #### [facility] [address] [place] [address] Potassium molar conc 4.0 mmol/L Normal 3.5 - 5.3 [facility] Comment on above: Performed By: #### C BCDF #### [facility] [address] [place] [address] Sodium molar conc 140 mmol/L Normal 136 - 145 [facility] Comment on above: Performed By: #### C BCDF #### [facility] [address] [place] [address] Urea nitrogen mass conc 24 mg/dL High 6 - 23 [facility] Comment on above: Performed By: #### C BCDF #### [facility] [address] [place] [address] BASIC METABOLIC PANELon 11-16 Anion gap molar conc 12 mmol/L Normal 10 - 20 [facility] Comment on above: Performed By: #### C BCDF #### [facility] [address] [place] [address] Calcium mass conc 8.0 mg/dL Low 8.6 - 10.6 [facility] Comment on above: Performed By: #### C BCDF #### [facility] [address] [place] [address] Chloride molar conc 103 mmol/L Normal 98 - 107 [facility] Comment on above: Performed By: #### C BCDF #### [facility] [address] [place] [address] Creatinine mass conc 0.98 mg/dL Normal 0.50 - 1.05 [facility] Comment on above: Performed By: #### C BCDF #### [facility] [address] [place] [address] GFR- AM. 67 mL/min/1.73m2 Normal >60 [facility] Comment on above: Result Comment: CALC ULATIONS OF ESTIMATED GFR ARE PERFORMED USING THE MDRD STUDY EQUATION FOR THE IDMS-TRACEABLE CREATININE METHODS. CLIN CHEM 2007;53:766-72 Performed By: #### C BCDF #### [facility] [address] [place] [address] GFR-NON AM. 55 mL/min/1.73m2 Abnormal >60 [facility] Comment on above: Performed By: #### C BCDF #### [facility] [address] [place] [address] Glucose mass conc 98 mg/dL Normal 74 - 99 [facility] Comment on above: Performed By: #### C BCDF #### [facility] [address] [place] [address] HCO3 molar conc (Bld) 26 mmol/L Normal 21 - 32 [facility] Comment on above: Performed By: #### C BCDF #### [facility] [address] [place] [address] Potassium molar conc 3.8 mmol/L Normal 3.5 - 5.3 [facility] Comment on above: Performed By: #### C BCDF #### [facility] [address] [place] [address] Sodium molar conc 137 mmol/L Normal 136 - 145 [facility] Comment on above: Performed By: #### C BCDF #### [facility] [address] [place] [address] Urea nitrogen mass conc 32 mg/dL High 6 - 23 [facility] Comment on above: Performed By: #### C BCDF #### [facility] [address] [place] [address] CBCon 11-28-2018 Erythrocyte distribution width Ratio (RBC) 13.6 % Normal 11.5 - 14.5 [facility] Comment on above: Performed By: #### C BCDF #### [facility] [address] [place] [address] Hematocrit Volume Fraction (Bld) 28.6 % Low 36.0 - 46.0 [facility] Comment on above: Performed By: #### C BCDF #### [facility] [address] [place] [address] Hemoglobin mass conc (Bld) 9.1 g/dL Low 12.0 - 16.0 [facility] Comment on above: Performed By: #### C BCDF #### [facility] [address] [place] [address] MCHC mass conc (RBC) 31.8 g/dL Low 32.0 - 36.0 [facility] Comment on above: Performed By: #### C BCDF #### [facility] [address] [place] [address] MCV Entitic volume (RBC) 97 fL Normal 80 - 100 [facility] Comment on above: Performed By: #### C BCDF #### [facility] [address] [place] [address] Nucleated RBC/100 WBC Ratio (Bld) 0.0 /100 WBC Normal 0.0-0.0 [facility] Comment on above: Performed By: #### C BCDF #### [facility] [address] [place] [address] Platelets #/vol (Bld) 303 10*3/uL Normal 150 - 450 [facility] Comment on above: Performed By: #### C BCDF #### [facility] [address] [place] [address] RBC #/vol (Bld) 2.96 x10E12/L Low 4.00 - 5.20 [facility] Comment on above: Performed By: #### C BCDF #### [facility] [address] [place] [address] WBC #/vol (Bld) 9.5 10*3/uL Normal 4.4 - 11.3 [facility] Comment on above: Performed By: #### C BCDF #### [facility] [address] [place] [address] Daily Progress Note-Medicine on 11-28-2018 Protein mass conc Service: Medicine Subjective Data: TRISH HUNT is a 73 year old Female who is Hospital Day # 17 and POD #5 for T10-11 transpedicular decompression of tumor, T7-L2 instrumented fusion. I didn't have a good night. It hurts on my back. My left hip hurts.". Additional Information: Reports back pain improved when [...] Cholecystectomy - L4-L5 Decompression 1999 T PRBPSpO2 Value36.42495579/6396% Date/Time11/28 13: 13: 13: 13: 13:23 Range(36.3C [...] over hemovac sites. Medication: Medications: Continuous Medications ----- 1. HYDROmorphone COIN MACHINE MECHANIC 25 mg/ NaCL 0.9% 50 mL: 25 mg IV COIN MACHINE MECHANIC Scheduled Medications ----- 1. Acetaminophen: 975 mg Oral 2. Conjugated Estrogens 0.625mg/ gram Va.25 applicatorful [...] IntraVenous Flush Every 12 Hours PRN Medications ----- 1. Albuterol 2.5 mg/ 3 mL Nebulizer [...] laboratory results: Complete Blood Count Trending View [id number] 12:05:00 -Nov-2018 09:45:00 White Blood Cell Count9.5 11.8 H Nucleated Erythrocyte Count0.0 0.0 Red Blood Cell Count2.96 L 3.16 L HGB9.1 L 9.6 L HCT28.6 L 28.5 L MCV97 90 MCHC31.8 L 33.7 WZH110 303 RDW-CV13.6 13.2 Basic Metabolic Panel Trending View [id number] 12:05:00 -Nov-2018 09:45:00 Glucose, Serum98 79 NA137 140 K3.8 3.7 CL103 105 Bicarbonate, Serum26 25 Anion Gap, Serum12 14 BUN32 H 24 H CREAT0.98 0.78 GFR-Non Srxgknrl84 A >60 GFR- Aaeracai10 >60 Calcium, Serum8.0 L 8.4 L 11/23/18: Thoracic Spine Surgical Pathology: pending Assessment and Plan: Assessment: Trish Hunt is a 73 year old female former smoker w/ PMHx significant for HTN, Impaired Fasting Glucose, Hyperlipidemia, Peripheral Neuropathy, Hypothyroidism, GERD, Morbid Obesity and Recent Spinal Cord Stimulator Implant who is transferred to [facility] 11/12/[address] [facility] after presenting with intractable progressive back [...] and chest pain with deep breath at [place] [facility] presentation 11/11/18. 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 Presented to [facility] 11/11/18 with intractable progressive back pain [...] A CT Chest, Abdomen and Pelvis at [place] showed a suspected Pathologic fracture of the [...] given Decadron with request for transfer to [facility] for Neurosurgery evaluation. Neurosurgery consulted. CT Thoracic and Lumbar Spine as well as MRI of entire spine done and on 11/23/18. Significant Pain was an issue and Palliative care consulted and Dexamethasone as well as a dose of Pamidronate given. She underwent a Thoracic Decompression and Fusion with back pain much improved. Post-operative thoracic x-ray done 11/26/18. She is on a COIN MACHINE MECHANIC of Hydromorphone. Hemovacs fell out. Post-op MRI of the Spine under Anesthesia 11/26/18 reviewed by Neurosurgery. She had increased pain yesterday as moving in and out of bed to void with trinidad removed in morning and following a shower. Reports uncomfortable night with pain of thoracic spine while laying against it - more comfortable in bariatric chair today. Romance Toradol helped back pain. COIN MACHINE MECHANIC use Her leukocytosis is now resolved (12k yesterday) - I suspect the leukocytosis to be related to surgery as well as Dexamethasone, as she has no evidence for an infection. Had increased need of COIN MACHINE MECHANIC yesterday with 6.3 mg Hydromorphone given - continue added Toradol 15 mg IV every 4 hours PRN - hold off oral dosing for now of pain meds - continue COIN MACHINE MECHANIC Hydromorphone to 0.1 mg with 10 minute lockout due to - change to oral dosing in a.m. if pain improved - continue Acetaminophen 975 mg by mouth tid - Flexeril PRN - follow up with Dr. Fartun Tamayo (Neurosurgery) 15-Dec-2018 14:00 3) LEFT HIP PAIN: Developed yesterday with weight bearing. Persists today. Reports location as lateral hip. 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 H&H [...] is agreeable to closer to home in [place]. Social work consulted. Family at bedside and supportive ----- PCP: Dr. Eiml Braswell [phone] Urology: Dr. Neo Herrera Pharmacy: [facility] [phone] DME: Nebulizer Insurer: [employer] Medicare Family: / POA Healthcare - Kin Hunt [phone] Dtr. / 1st Alt. POA - Annita Craftton [phone] / [phone] Dtr. / 2nd Alt. POA - Dionne Wilkes [phone] Follow Up: Dr. Fartun Tamayo (Neurosurgery) 15-Dec-2018 14:[address] [facility] [address] [facility] Signature/Cosignature/Attes tation: Provider/Team Contact Info-Pager Miriam Carlos [facility] # [phone] Comments/ Additional Findings Trish Hunt is a 73 year old female former smoker w/ PMHx significant for HTN, Impaired Fasting Glucose, Hyperlipidemia, Peripheral Neuropathy, Hypothyroidism, GERD, Morbid Obesity and Recent Spinal Cord Stimulator Implant who is transferred to [facility] 11/12/[address] [facility] after presenting with intractable progressive back [...] fusion. Continue pain management with cyclobenzaprine Dilaudid COIN MACHINE MECHANIC, Toradol and Tylenol Outpatient this is a follow-up Surgical scar healing well []left hip pain Xray hip pending Electronic Signatures: Nessa Carlos (DEFENCE INTELLIGENCE ANALYST-FAMILY PROTECTION SPECIALIST) (Signed 28-Nov-2018 16:52) Authored: Service, Subjective Data, Objective Data, Assessment and Plan, Signature/Cosignature/Attes tation Grazyna Bunch) (Signed 28-Nov-2018 18:33) Authored: Signature/Cosignature/Attes tation Co-Signer: Service, Subjective Data, Objective Data, Assessment and Plan, Signature/Cosignature/Attes tation Last Updated: 28-Nov-2018 18:33 by Grazyna Bunch) Normal [facility] BASIC METABOLIC PANELon 11-16 Anion gap molar conc 14 mmol/L Normal 10 - 20 [facility] Comment on above: Performed By: #### C BCDF #### [facility] [address] [place] [address] Calcium mass conc 8.4 mg/dL Low 8.6 - 10.6 [facility] Comment on above: Performed By: #### C BCDF #### [facility] [address] [place] [address] Chloride molar conc 105 mmol/L Normal 98 - 107 [facility] Comment on above: Performed By: #### C BCDF #### [facility] [address] [place] [address] Creatinine mass conc 0.78 mg/dL Normal 0.50 - 1.05 [facility] Comment on above: Performed By: #### C BCDF #### [facility] [address] [place] [address] GFR- AM. >60 Normal >60 [facility] Comment on above: Result Comment: CALC ULATIONS OF ESTIMATED GFR ARE PERFORMED USING THE MDRD STUDY EQUATION FOR THE IDMS-TRACEABLE CREATININE METHODS. CLIN CHEM 2007;53:766-72 Performed By: #### C BCDF #### [facility] [address] [place] [address] GFR-NON AM. >60 Normal >60 [facility] Comment on above: Performed By: #### C BCDF #### [place] [address] [place] [address] Glucose mass conc 79 mg/dL Normal 74 - 99 [facility] Comment on above: Performed By: #### C BCDF #### [facility] [address] [place] [address] HCO3 molar conc (Bld) 25 mmol/L Normal 21 - 32 [facility] Comment on above: Performed By: #### C BCDF #### [facility] [address] [place] [address] Potassium molar conc 3.7 mmol/L Normal 3.5 - 5.3 [facility] Comment on above: Performed By: #### C BCDF #### [facility] [address] [place] [address] Sodium molar conc 140 mmol/L Normal 136 - 145 [facility] Comment on above: Performed By: #### C BCDF #### [facility] [address] [place] [address] Urea nitrogen mass conc 24 mg/dL High 6 - 23 [facility] Comment on above: Performed By: #### C BCDF #### [facility] [address] [place] [address] CBCon 11-27-2018 Erythrocyte distribution width Ratio (RBC) 13.2 % Normal 11.5 - 14.5 [facility] Comment on above: Performed By: #### C BCDF #### [facility] [address] [place] [address] Hematocrit Volume Fraction (Bld) 28.5 % Low 36.0 - 46.0 [facility] Comment on above: Performed By: #### C BCDF #### [facility] [address] [place] [address] Hemoglobin mass conc (Bld) 9.6 g/dL Low 12.0 - 16.0 [facility] Comment on above: Performed By: #### C BCDF #### [facility] [address] [place] [address] MCHC mass conc (RBC) 33.7 g/dL Normal 32.0 - 36.0 [facility] Comment on above: Performed By: #### C BCDF #### [facility] [address] [place] [address] MCV Entitic volume (RBC) 90 fL Normal 80 - 100 [facility] Comment on above: Performed By: #### C BCDF #### [facility] [address] [place] [address] Nucleated RBC/100 WBC Ratio (Bld) 0.0 /100 WBC Normal 0.0-0.0 [facility] Comment on above: Performed By: #### C BCDF #### [facility] [address] [place] [address] Platelets #/vol (Bld) 303 10*3/uL Normal 150 - 450 [facility] Comment on above: Performed By: #### C BCDF #### [facility] [address] [place] [address] RBC #/vol (Bld) 3.16 x10E12/L Low 4.00 - 5.20 [facility] Comment on above: Performed By: #### C BCDF #### [facility] [address] [place] [address] WBC #/vol (Bld) 11.8 10*3/uL High 4.4 - 11.3 [facility] Comment on above: Performed By: #### C BCDF #### [facility] [address] [place] [address] Clinical Event Note-Neurosur alicia Sign Offon 11-27-2018 Clinical Event Note-Neurosurgery Sign Off Event: Topic: Neurosurgery Sign Off Details: Patient drains removed on 11/27. Neurosurgery will sign off. Patient can f/u as an OP w/ Dr. Tamayo 2 weeks from the operative date. Office Manager has been emailed for scheduling. Provider / Team Contact Information: Provider/Team Contact Info-Pager Number: [phone] Electronic Signatures: Rogelio Lester ( (Resident)) (Signed 27-Nov-2018 08:23) Authored: Event, Provider / Team Contact Information Last Updated: 27-Nov-2018 08:23 by Rogelio Lester ( (Resident)) Normal [facility] Daily Progress Note-Medicine on 11-27-2018 Protein mass conc Service: Medicine Subjective Data: TRISH HUNT is [...] warm water felt so good on my back.". Additional Information: Hemovac drains fell out during [...] Cholecystectomy - L4-L5 Decompression 1999 T PRBPSpO2 [id number]/5396% Date/Time11/27 13: 13: 13: 13: 13:59 Range(35.7C [...] with sutures visible Medication: Medications: Continuous Medications ----- 1. HYDROmorphone COIN MACHINE MECHANIC 25 mg/ NaCL 0.9% 50 mL: 25 mg IV COIN MACHINE MECHANIC Scheduled Medications ----- 1. Acetaminophen: 975 mg Oral 2. Conjugated Estrogens 0.625mg/ gram Va.25 applicatorful [...] IntraVenous Flush Every 12 Hours PRN Medications ----- 1. Albuterol 2.5 mg/ 3 mL Nebulizer [...] laboratory results: Complete Blood Count Trending View [id number] 09:45:00 26-Nov-2018 05:08:00 White Blood Cell Count11.8 H 14.6 H Nucleated Erythrocyte Count0.0 0.0 Red Blood Cell Count3.16 L 3.07 L HGB9.6 L 9.2 L HCT28.5 L 29.3 L MCV90 95 MCHC33.7 31.4 L ENJ139 262 RDW-CV13.2 13.3 Basic Metabolic Panel 27-Nov-2018 [...] Cord Stimulator Implant who is transferred to [facility] 11/12/[address] [facility] after presenting with intractable progressive back [...] and chest pain with deep breath at [place] [facility] presentation 11/11/18. 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 Presented to [facility] 11/11/18 with intractable progressive back pain [...] A CT Chest, Abdomen and Pelvis at [place] showed a suspected Pathologic fracture of the [...] given Decadron with request for transfer to [facility] for Neurosurgery evaluation. Neurosurgery consulted. CT Thoracic and Lumbar Spine as well as MRI of entire spine done and on 11/23/18. Significant Pain was an issue and Palliative care consulted and Dexamethasone as well as a dose of Pamidronate given. She underwent a Thoracic Decompression and Fusion with back pain much improved. Post-operative thoracic x-ray done 11/26/18. She is on a COIN MACHINE MECHANIC of Hydromorphone. Hemovacs fell out during night. [...] for now of pain meds - continue COIN MACHINE MECHANIC Hydromorphone to 0.1 mg with 10 minute lockout - change to oral dosing in a.m. - Flexeril PRN - follow up with Dr. Fartun Tamayo (Neurosurgery) 15-Dec-2018 14:00 3) ACUTE BLOOD [...] is agreeable to closer to home in [place]. Social work consulted. Family at bedside and supportive ----- PCP: Dr. Emil Braswell [phone] Urology: Dr. Neo Herrera Pharmacy: [facility] [phone] DME: Nebulizer Insurer: [employer] Medicare Family: / POA Healthcare - Kin Hunt [phone] Dtr. / 1st Alt. POA - Annita Sin [phone] / [phone] Dtr. / 2nd Alt. POA - Dinone Morse Chung [phone] Follow Up: Dr. Fartun Tamayo (Neurosurgery) 15-Dec-2018 14:[address] [facility] - [facility] [address], [address] [facility] Signature/Cosignature/Attes tation: Provider/Team Contact Info-Pager Miriam Carlos [facility] # [phone] Comments/ Additional Findings Trish Hunt is a 73 year old female former smoker w/ PMHx significant for HTN, Impaired Fasting Glucose, Hyperlipidemia, Peripheral Neuropathy, Hypothyroidism, GERD, Morbid Obesity and Recent Spinal Cord Stimulator Implant who is transferred to [facility] 11/12/[address] [facility] after presenting with intractable progressive back [...] fusion. Continue pain management with cyclobenzaprine Dilaudid COIN MACHINE MECHANIC, Toradol and Tylenol Outpatient this is a follow-up Patient still has stitches where the drain was placed, discuss with neurosurgery Surgical scar healing well Electronic Signatures: Nessa Carlos (DEFENCE INTELLIGENCE ANALYST-FAMILY PROTECTION SPECIALIST) (Signed 27-Nov-2018 19:27) Authored: Service, Subjective Data, Objective Data, Assessment and Plan, Signature/Cosignature/Attes tation Grazyna Bunch) (Signed 27-Nov-2018 18:22) Authored: Signature/Cosignature/Attes tation Last Updated: 27-Nov-2018 19:27 by Nessa Carlos (DEFENCE INTELLIGENCE ANALYST-FAMILY PROTECTION SPECIALIST) [facility] Daily Progress Note-Charity weldon 11-27-2018 Protein mass conc Service: Neurosurger y Subjective Data: TRISH HUNT is a 73 year old Female who is Hospital Day # 15 and POD #3 for T10-11 transpedicular decompression of tumor, T7-L2 instrumented fusion. Overnight Events: Patient had an uneventful night. Objective Data: Objective Information: T PRBPSpO2 [id number]/6794% Date/Time11/26 21: 21: 21: 21: 21:29 Range(35.5C [...] proph will follow MRI results PT/OT SN[facility] Signature/Cosignature/Attes tation: Attending AttestationI saw and evaluated the patient. [...] Subjective Data, Objective Data, Assessment and Plan, Signature/Cosignature/Attes tation Cliff Mcgarry) (Signed 27-Nov-2018 07:49) Authored: Signature/Cosignature/Attes tation Co-Signer: Service, Subjective Data, Objective Data, Assessment and Plan, Signature/Cosignature/Attes tation Last Updated: 27-Nov-2018 07:49 by Cliff Mcgarry) Normal [facility] Daily Progress Note-Palliati ve Careon 11-27-2018 Protein mass conc Service: Palliative Care Subjective Data: TRISH HUNT is a 73 year old Female who is Hospital Day # 16 and POD #4 for T10-11 transpedicular decompression of tumor, T7-L2 instrumented fusion. Additional Information: Interval history: Pt's pain well controlled overnight. I discussed with bedside nursing and Nessa Carlos-primary team CHIP TUNER 18 hrs dilaudid iv usage via COIN MACHINE MECHANIC 4.1 mg mg 24/24 delivered/demands subjective: Pt's pain was well controlled today morning at rest , intermittent dull ,non-radiating, aggravated on movement to 3/10, relieved with rest and with dilaudid research director dosing. Pt took a shower around noon and spent long time in shower and at the time of my visit c/o pain intermittent 04/25, dull, non-radiating, aggravated on movement and partially releived with dilaudid via research director. Primary team CHIP TUNER Nessa walked into the room during my visit. Objective Data: Objective Information: T PRBPSpO2 [id number]/7698% Date/Time11/27 4: 4: 4: 4: 4:32 Range(35.7C [...] Skin: warm dry Medication: Medications: Continuous Medications ----- 1. HYDROmorphone COIN MACHINE MECHANIC 25 mg/ NaCL 0.9% 50 mL: 25 mg IV COIN MACHINE MECHANIC Scheduled Medications ----- 1. Acetaminophen: 975 mg Oral 2. Conjugated Estrogens 0.625mg/ gram Va.25 applicatorful [...] IntraVenous Flush Every 12 Hours PRN Medications ----- 1. Albuterol 2.5 mg/ 3 mL Nebulizer [...] lung base. The study was interpreted at [facility]. MRI T Spine w/wo Contrast [Nov 26 2018 5:09PM] Assessment and Plan: Assessment: 73 year old F with h/o HTN, DM2 with morbid obesity, hypothyroidism, HLD, transferred to [facility] from OSH with back pain due to spinal lesions, [...] out -18 hrs dilaudid iv usage via COIN MACHINE MECHANIC 4.1 mg mg 24/24 delivered/demands-= 80 mg [...] after giving toradol, then consider stopping dilaudid COIN MACHINE MECHANIC and starting as needed pain meds as follows: oxycodone 5 mg every 3 hours as needed pain dilaudid 0.1 mg iv every 2 hours as needed pain uncontrolled with by mouth oxycodone. - continue miralax daily for prophylaxis for opiate related constipation. Above discussed in detail with CHIP TUNER Nessa Carlos and bedside nursing and family at the bedside-daughter and grand-daughter Thank you for inviting us to participate in the care of this patient. Please page [phone] with any questions or queries. Palliative Medicine will continue to follow. Signature/Cosignature/Attes tation: Provider/Team Contact Info-Pager [phone] Comments/ Additional Findings Time: I spent 35 minutes with this patient. Greater than 50% of this time was spent in counselling/educating and/or coordination of care and medication regimen with pt and/or family and/or primary team and/or clearing tub worker and/or bedside nursing. Electronic Signatures: Marta Cannon) (Signed 27-Nov-2018 14:02) Authored: Service, Subjective Data, Objective Data, Assessment and Plan, Signature/Cosignature/Attes tation Last Updated: 27-Nov-2018 14:02 by Marta Cannon) Normal [facility] CBCon 11-26-2018 Erythrocyte distribution width Ratio (RBC) 13.3 % Normal 11.5 - 14.5 [facility] Comment on above: Performed By: #### C BCDF #### [facility] [address] [place] [address] Hematocrit Volume Fraction (Bld) 29.3 % Low 36.0 - 46.0 [facility] Comment on above: Performed By: #### C BCDF #### [facility] [address] [place] [address] Hemoglobin mass conc (Bld) 9.2 g/dL Low 12.0 - 16.0 [facility] Comment on above: Performed By: #### C BCDF #### [facility] [address] [place] [address] MCHC mass conc (RBC) 31.4 g/dL Low 32.0 - 36.0 [facility] Comment on above: Performed By: #### C BCDF #### [facility] [address] [place] [address] MCV Entitic volume (RBC) 95 fL Normal 80 - 100 [facility] Comment on above: Performed By: #### C BCDF #### [facility] [address] [place] [address] Nucleated RBC/100 WBC Ratio (Bld) 0.0 /100 WBC Normal 0.0-0.0 [facility] Comment on above: Performed By: #### C BCDF #### [facility] [address] [place] [address] Platelets #/vol (Bld) 262 10*3/uL Normal 150 - 450 [facility] Comment on above: Performed By: #### C BCDF #### [facility] [address] [place] [address] RBC #/vol (Bld) 3.07 x10E12/L Low 4.00 - 5.20 [facility] Comment on above: Performed By: #### C BCDF #### [facility] [address] [place] [address] WBC #/vol (Bld) 14.6 10*3/uL High 4.4 - 11.3 [facility] Comment on above: Performed By: #### C BCDF #### [facility] [address] [place] [id number] Clinical Event Note-Palliati ve careon 11-26-2018 Clinical Event Note-Palliative care Event: Topic: Palliative care Details: Attempted follow up with patient, she was off the unit for MRI. Patient remains on COIN MACHINE MECHANIC for post-op pain. Given her past difficulty with MRIs would hesitate to discontinue the COIN MACHINE MECHANIC too soon after imaging study. Also, without the COIN MACHINE MECHANIC numbers/24h opioid requirement cannot predict a PO regimen. Would be disinclined to start long acting as pain will likely continue to improve, but patient may benefit from a scheduled short acting for a short time then transition to PRN only. Will ask on-call Palliative Care provider to follow up with patient 11/27 for COIN MACHINE MECHANIC transition. Call with questions. Provider / Team Contact Information: Provider/Team Contact Info-Pager Number: [phone] Electronic Signatures: Annette Keller) (Signed 26-Nov-2018 14:43) Authored: Event, Provider / Team Contact Information Last Updated: 26-Nov-2018 14:43 by Annette Keller) Normal [facility] Daily Progress Note-Medicine on 11-26-2018 Protein mass conc Service: Medicine Subjective Data: TRISH HUNT is a 73 year old Female who is Hospital Day # 15 and POD #3 for T10-11 transpedicular decompression of tumor, T7-L2 instrumented fusion. When that trinidad comes out, I am going to be going all the time, I don't know how that is going to work.". Additional Information: MRI done today under anesthesia [...] Cholecystectomy - L4-L5 Decompression 1999 T PRBPSpO2 [id number]/8497% Date/Time11/26 16: 16: 16: 16: 16:30 Range(35.5C [...] longer holding suction. Medication: Medications: Scheduled Medications ----- 1. Acetaminophen: 975 mg Oral 2. Levothyroxine: 50 microgram(s) Oral Daily 3. Lidocaine 5% TransDermal: 1 patch TransDermal Every 24 Hours 4. Pantoprazole: 40 mg Oral Daily 5. Polyethylene Glycol: 17 gram(s) Oral 2 Times a Day 6. Simvastatin: 20 mg Oral At Bedtime PRN Medications ----- 1. Albuterol 2.5 mg/ 3 mL Nebulizer Soln: 3 mL Inhalation Every 2 Hours 2. Bisacodyl Rectal: 10 mg Rectal Daily 3. Cyclobenzaprine: 10 mg Oral 3 Times a Day 4. Loratadine: 10 mg Oral Daily 5. Ondansetron Injectable: 4 mg IntraVenous Push Every 6 Hours Recent Lab Results: Results: I have reviewed these laboratory results: Complete Blood Count Trending View [id number] 05:08:00 25-Nov-2018 09:49:00 White Blood Cell Count14.6 H 15.3 H Nucleated Erythrocyte Count0.0 0.0 Red Blood Cell Count3.07 L 3.04 L HGB9.2 L 9.4 L HCT29.3 L 30.5 L MCV95 100 MCHC31.4 L 30.8 L IXN556 199 RDW-CV13.3 13.5 11/15/18: FINAL CYTOLOGICAL INTERPRETATION [...] Cord Stimulator Implant who is transferred to [facility] 11/12/[address] [facility] after presenting with intractable progressive back pain with SOB and found on imaging to have a lung mass with adenopathy and suspected spinal metastasis for neurosurgical evaluation and further care. . PLAN: In Shared Visit with Dr. Rocky Oquendo 1) STAGE IV METASTATIC LUNG ADENOCARCINOMA: Former smoker. Reported SOB and chest pain with deep breath at [place] ER presentation 11/11/18. A CT of the [...] fusion patient desires to do this at [facility] - await Surgical Pathology from Thoracic Decompression 11/23/18 for confirmation - schedule follow up with Oncology and Radiation Oncology at [facility] in one month 2) T10 PATHOLOGIC FRACTURE w/ CORD COMPRESSION: Presumed metastasis r/t # 1. Presented to [facility] 11/11/18 with intractable progressive back pain [...] A CT Chest, Abdomen and Pelvis at [place] showed a suspected Pathologic fracture of the [...] given Decadron with request for transfer to [facility] for Neurosurgery evaluation. Neurosurgery consulted. CT Thoracic and Lumbar Spine as well as MRI of entire spine done and on 11/23/18 she underwent a Thoracic Decompression and Fusion with back pain much improved. Post-operative thoracic x-ray done 11/26/18. She is on a COIN MACHINE MECHANIC of Hydromorphone. Hemovac with 300 ml output total recorded yesterday. Today she underwent an MRI of the Spine under Anesthesia. - await Surgical Pathology for confirmation of # 1 - continue Physical Therapy - discontinue Decadron - continue COIN MACHINE MECHANIC Hydromorphone to 0.1 mg with 10 minute lockout - change to oral dosing soon - Flexeril dosing PRN - maintain post-operative Hemovacs to self suction monitor output - maintain [place] catheter today - discontinue in a.m. - follow up with Dr. Fartun Tamayo (Neurosurgery) 15-Dec-2018 14:00 3) ACUTE BLOOD [...] is agreeable to closer to home in [place]. Social work consulted. Family at bedside and supportive ----- PCP: Dr. Emil Braswell [phone] Urology: Dr. Neo Herrera Pharmacy: [facility] [place] ([facility] [phone] DME: Nebulizer Insurer: [employer] Medicare Family: / POA Healthcare - Kin Hunt [phone] Dtr. / 1st Alt. POA - Annita aKushik Sin [phone] / [phone] Dtr. / 2nd Alt. POA - Dionne Wilkes [phone] Follow Up: Dr. Fartun Tamayo (Neurosurgery) 15-Dec-2018 14:[address] [facility] [address] [address] [facility] Signature/Cosignature/Attes tation: Provider/Team Contact Info-Pager Miriam Carlos CNP # [phone] Electronic Signatures: Nessa Carlos (DEFENCE INTELLIGENCE ANALYST-FAMILY PROTECTION SPECIALIST) (Signed 26-Nov-2018 21:03) Authored: Service, Subjective Data, Objective Data, Assessment and Plan, Signature/Cosignature/Attes tation Last Updated: 26-Nov-2018 21:03 by Nessa Carlos (DEFENCE INTELLIGENCE ANALYST-FAMILY PROTECTION SPECIALIST) Normal [facility] Protein mass conc Service: Medicine Subjective Data: TRISH HUNT is a 73 year old Female who is Hospital Day # 15 and POD #3 for T10-11 transpedicular decompression of tumor, T7-L2 instrumented fusion. I saw the patient, reviewed labs, images, medications, reports and discussed with the FAMILY PROTECTION SPECIALIST. Patient was content with the progress of [...] all. Objective Data: Objective Information: T PRBPSpO2 [id number]/8497% Date/Time11/26 16: 16: 16: 16: 16:30 Range(35.5C [...] depressed. I reviewed the most recent labs 30.5 and discussed with the FAMILY PROTECTION SPECIALIST. WBC: 10.2 -> 16.1 -> 14.9 -> 15.3 -> 14.6 Hctr: 43.9 -> 24.6 -> 28.1 -> 30.5 -> 29.3 Platelet: 324 -> 231 -> 211 -> 199 -> 262 BUN/creatinine: 27/0.74 -> 28/0.86 -> 22/0.66 Anatomic pathology report reviewed and discussed on previous days. I reviewed the imaging, I read the report and discussed with the FAMILY PROTECTION SPECIALIST. MRI spine reading pending. AP and lateral [...] reviewed the medications and discussed with the FAMILY PROTECTION SPECIALIST. 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 Ortho team performed T10-11 transpedicular decompression of metastatic spine tumor, T7-L2 posterior instrumentation and fusion with allograft, use of intraoperative O arm, use of C arm fluoroscopy, use of ultrasound, placement of 2 subfascial drains Pain has been managed optimally with COIN MACHINE MECHANIC. Intention is to change COIN MACHINE MECHANIC to oral hydromorphone. Palliative care team is [...] 17:02) Authored: Service, Subjective Data, Objective Data, Signature/Cosignature/Attes tation Last Updated: 26-Nov-2018 17:02 by Rocky Oquendo) [facility] Daily Progress Note-Charity weldon 11-26-2018 Protein mass conc Service: Neurosurger y Subjective Data: TRISH HUNT is a 73 year old Female who is Hospital Day # 14 and POD #2 for T10-11 transpedicular decompression of tumor, T7-L2 instrumented fusion. Overnight Events: Patient had an uneventful night. Objective Data: Objective Information: T PRBPSpO2 [id number]/7996% Date/Time11/25 14: 14: 14: 14: 14:24 Range(36.1C [...] proph will follow MRI results PT/OT SN[facility] Signature/Cosignature/Attes tation: Provider/Team Contact Info-Pager [phone] Attending AttestationI saw and evaluated the patient. [...] Subjective Data, Objective Data, Assessment and Plan, Signature/Cosignature/Attes marileeion Fartun Tamayo) (Signed 27-Nov-2018 12:36) Authored: Signature/Cosignature/Attes clifford Co-Signer: Service, Subjective Data, Objective Data, Assessment and Plan, Signature/Cosignature/Attes marileeion Grazyna Lara (Resident)) (Signed 26-Nov-2018 07:26) Authored: Assessment and Plan Last Updated: 27-Nov-2018 12:36 by Fartun Tamayo) Normal [facility] GLUCOSE-POCTon 11-26-2018 Glucose mass conc 115 mg/dL High 74 - 99 [facility] Comment on above: Performed By: #### C BCDF #### [facility] [address] [place] [address] NR MR T-SPINE WO/Won 019 NR MR T-SPINE WO/W Patient Name: TRISH HUNT STUDY: MR T-SPINE WO/W; 11/26/2018 2:10 pm INDICATION: Signs/Symptoms: s/p T10-T11 decompression of tumor and T7-L2 fusion, Lie Flat: Yes, Pre Med: Yes, BMI: Yes, BiPAP: No, O2: No. COMPARISON: MRI dated 11/15/2018 ACCESSION NUMBER(S): [id number] ORDERING CLINICIAN: JORDAN SAUNDERS TECHNIQUE: Sagittal STIR, [...] lung base. The study was interpreted at [facility]. Electronically signed by: ADRIANA DIETZ MD Normal [facility] CBCon 11-25-2018 Erythrocyte distribution width Ratio (RBC) 13.5 % Normal 11.5 - 14.5 [facility] Comment on above: Performed By: #### U A #### [facility] [address] [place] [address] Hematocrit Volume Fraction (Bld) 30.5 % Low 36.0 - 46.0 [facility] Comment on above: Performed By: #### U A #### [facility] [address] [place] [address] Hemoglobin mass conc (Bld) 9.4 g/dL Low 12.0 - 16.0 [facility] Comment on above: Performed By: #### U A #### [facility] [address] [place] [address] MCHC mass conc (RBC) 30.8 g/dL Low 32.0 - 36.0 [facility] Comment on above: Performed By: #### U A #### [facility] [address] [place] [address] MCV Entitic volume (RBC) 100 fL Normal 80 - 100 [facility] Comment on above: Performed By: #### U A #### [facility] [address] [place] [address] Nucleated RBC/100 WBC Ratio (Bld) 0.0 /100 WBC Normal 0.0-0.0 [facility] Comment on above: Performed By: #### U A #### [facility] [address] [place] [address] Platelets #/vol (Bld) 199 10*3/uL Normal 150 - 450 [facility] Comment on above: Performed By: #### U A #### [facility] [address] [place] [address] RBC #/vol (Bld) 3.04 x10E12/L Low 4.00 - 5.20 [facility] Comment on above: Performed By: #### U A #### [facility] [address] [place] [address] WBC #/vol (Bld) 15.3 10*3/uL High 4.4 - 11.3 [facility] Comment on above: Performed By: #### U A #### [facility] [address] [place] [address] Daily Progress Note-Medicine on 11-25-2018 Protein mass conc Service: Medicine Subjective Data: TRISH HUNT is [...] Cholecystectomy - L4-L5 Decompression 1999 T PRBPSpO2 [id number]/7996% Date/Time11/25 14: 14: 14: 14: 14:24 Range(36.1C [...] with serosanguineous drainage. Medication: Medications: Continuous Medications ----- 1. HYDROmorphone COIN MACHINE MECHANIC 25 mg/ NaCL 0.9% 50 mL: 25 mg IV COIN MACHINE MECHANIC Scheduled Medications ----- 1. Acetaminophen: 975 mg Oral Every 8 Hours 2. Albuterol 2.5 mg/ 3 mL Nebulizer Soln: 3 mL Inhalation Once 3. Cyclobenzaprine: 10 mg Oral 3 Times a Day 4. Dexamethasone: 2 mg Oral 5. Enoxaparin SubCutaneous: 40 mg SubCutaneous Every [...] 20 mg Oral At Bedtime PRN Medications ----- 1. Albuterol 2.5 mg/ 3 mL Nebulizer [...] laboratory results: Complete Blood Count Trending View [id number] 09:49:00 -Nov-2018 09:32:00 White Blood Cell Count15.3 H 14.9 H Nucleated Erythrocyte Count0.0 0.0 Red Blood Cell Count3.04 L 2.92 L HGB9.4 L 8.9 L HCT30.5 L 28.1 L KST567 96 MCHC30.8 L 31.7 L KAV106 211 RDW-CV13.5 13.2 Renal Function Panel Trending View [id number] 09:49:00 -Nov-2018 06:10:00 Glucose, Dkdok778 H 99 NA140 141 K4.1 4.0 CL106 105 Bicarbonate, Serum24 25 Anion Gap, Serum14 15 BUN22 25 H CREAT0.66 0.86 GFR-Non >60 >60 GFR->60 >60 Calcium, Serum8.5 L 8.3 L Phosphorus, Serum3.2 4.7 ALB3.1 L 3.0 L FINE NEEDLE ASPIRATION 11 RS LYMPH NODE Accession Number: [id number] Special Oncology Report Date Ordered: 11/22/2018 Status: [...] Cord Stimulator Implant who is transferred to [facility] 11/12/[address] [facility] after presenting with intractable progressive back [...] Cord Stimulator Implant who is transferred to [facility] 11/12/[address] [facility] after presenting with intractable progressive back pain with SOB and found on imaging to have a lung mass with adenopathy and suspected spinal metastasis for neurosurgical evaluation and further care. . 1)STAGE IV METASTATIC LUNG ADENOCARCINOMA: Former smoker. Reported SOB and chest pain with deep breath at [place] ER presentation 11/11/18. A CT of the [...] fusion patient desires to do this at [facility] - await Surgical Pathology from Thoracic Decompression 11/23/18 for confirmation - schedule follow up with Oncology and Radiation Oncology at [facility] in one month 2) T10 PATHOLOGIC FRACTURE: Presumed metastasis r/t # 1. Presented to [facility] 11/11/18 with intractable progressive back pain [...] A CT Chest, Abdomen and Pelvis at [place] showed a suspected Pathologic fracture of the [...] given Decadron with request for transfer to [facility] for Neurosurgery evaluation. Neurosurgery consulted and did find evidence of cord compression. CT Thoracic and Lumbar Spine as well as MRI of entire spine done and on 11/23/18 she underwent a Thoracic Decompression and Fusion with back pain much improved. Post-operative thoracic x-ray done yesterday. She is on a COIN MACHINE MECHANIC of Hydromorphone post-operatively with ~ 7 mg utilized in a 22 hours period. Hemovac with 450 ml output total recorded yesterday. - await Surgical Pathology for confirmation of # 1 - continue Physical Therapy - decrease Decadron to 4 mg daily with plan to wean off - decrease COIN MACHINE MECHANIC Hydromorphone to 0.1 mg with 10 minute lockout - change flexeril dosing to PRN - MRI of T Spine w / w/o contrast tomorrow under General Anesthesia NPO after Midnight - maintain post-operative Hemovacs to self suction monitor output - maintain trinidad catheter today - follow up with Dr. Fartun Tamayo (Neurosurgery) 15-Dec-2018 14:00 3) ACUTE BLOOD LOSS ANEMIA: Post-operative. H&H 14 & 46 at admit, decreased to 8 & 25 post-op 1/9/18 and now H&H 9 & 31 - [...] is agreeable to closer to home in [place]. Social work consulted. Family at bedside and supportive ----- PCP: Dr. Emil Braswell [phone] Urology: Dr. Neo Herrera Pharmacy: [facility] [place] ([place]) [phone] DME: Nebulizer Insurer: [employer] Medicare Family: / POA Healthcare - Kin Hunt [phone] Dtr. / 1st Alt. POA - Annita Sin [phone] / [phone] Dtr. / 2nd Alt. POA - Dionne Wilkes [phone] Follow Up: Dr. Fartun Tamayo (Neurosurgery) 15-Dec-2018 14:[address] [facility] [address], [address] [facility] Signature/Cosignature/Attes tation: Provider/Team Contact Info-Pager JuanNessa Breanna MENDIOLA # [phone] Electronic Signatures: Nessa Carlos (DEFENCE INTELLIGENCE ANALYST-FAMILY PROTECTION SPECIALIST) (Signed 26-Nov-2018 00:54) Authored: Service, Subjective Data, Objective Data, Assessment and Plan, Signature/Cosignature/Attes tation Last Updated: 26-Nov-2018 00:54 by Nessa Carlos (DEFENCE INTELLIGENCE ANALYST-FAMILY PROTECTION SPECIALIST) Normal [facility] Protein mass conc Service: Medicine Subjective Data: TRISH HUNT is a 73 year old Female who is Hospital Day # 14 and POD #2 for T10-11 transpedicular decompression of tumor, T7-L2 instrumented fusion. I saw the patient, reviewed labs, images, medications, reports and discussed with the FAMILY PROTECTION SPECIALIST. No fever or desaturation reported past 24h. She has been doing quite well with the COIN MACHINE MECHANIC (for ~ 20h she used 7.5mg hydromorphone). [...] conversation. Objective Data: Objective Information: T PRBPSpO2 Value36.928660736/7996% Date/Time11/25 14: 14: 14: 14: 14:24 Range(36.1C [...] yesterday. I reviewed the most recent labs . and discussed with the FAMILY PROTECTION SPECIALIST. WBC: 10.2 -> 16.1 -> 14.9 -> 15.3 Hctr: 43.9 -> 24.6 -> 28.1 -> 30.5 Platelet: 324 -> 231 -> 211 -> 199 BUN/creatinine: 27/0.74 -> 28/0.86 -> 22/0.66 Anatomic pathology report reviewed and discussed on previous days. I reviewed the imaging, I read the report and discussed with the FAMILY PROTECTION SPECIALIST. AP and lateral view of the thoracic [...] reviewed the medications and discussed with the FAMILY PROTECTION SPECIALIST. 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 Will change the lockout time to 10min, [...] Subjective Data, Objective Data, Assessment and Plan, Signature/Cosignature/Attes tation Last Updated: 25-Nov-2018 15:48 by Rocky Oquendo) Normal [facility] Daily Progress Note-Charity ravindramaria isabel 11-25-2018 Protein mass conc Service: Neurosurger y Subjective Data: TRISH HUNT is a 73 year old Female who is Hospital Day # 13 and POD #1 for T10-11 transpedicular decompression of tumor, T7-L2 instrumented fusion. Objective Data: Objective Information: T PRBPSpO2 Value36.92801585/5894% Date/Time11/24 20: 21: 21: 21: 21:50 Range(36.4C - 37.1C [...] time (48 hr for cardiac surgery): yes Signature/Cosignature/Attes tation: Attending AttestationI reviewed the resident/fellows documentation and discussed the patient with the resident/fellow. I agree with the resident/fellows medical decision making as documented in the residents note. Electronic Signatures: Fartun Tamayo) (Signed 25-Nov-2018 14:38) Authored: Signature/Cosignature/Attes tation Co-Signer: Service, Subjective Data, Objective Data, Assessment and Plan, SCIP Measures, Signature/Cosignature/Attes tation Grazyna Lara (Resident)) (Signed 25-Nov-2018 06:54) Authored: Service, Subjective Data, Objective Data, Assessment and Plan, SCIP Measures, Signature/Cosignature/Attes tation Last Updated: 25-Nov-2018 14:38 by Fartun Tamayo) Normal [facility] Daily Progress Note-Palliati ve Careon 11-25-2018 Protein mass conc Consult Type: subseq uent visit/care Service: Palliative Care Subjective Data: TRISH [...] day Objective Data: Objective Information: T PRBPSpO2 Value36.14151870/6595% Date/Time11/25 10: 10: 10: 10: 10:34 Range(36.1C [...] posterior R arm Medication: Medications: Continuous Medications ----- 1. HYDROmorphone COIN MACHINE MECHANIC 25 mg/ NaCL 0.9% 50 mL: 25 mg IV COIN MACHINE MECHANIC Scheduled Medications ----- 1. Acetaminophen: 975 mg Oral Every 8 [...] 20 mg Oral At Bedtime PRN Medications ----- 1. Albuterol 2.5 mg/ 3 mL Nebulizer [...] HLD, presenting as transfer from [facility] for back pain due to spinal [...] fully established. Good relief - continue hydromorphone COIN MACHINE MECHANIC (0.1mg q6min dosing) especially during perioperative period [...] Please contact us for any questions via DocOpenbuildso or pager [phone]. Nessa Mercado Internal Medicine PGY-1 Signature/Cosignature/Attes tation: Attending AttestationI saw and evaluated the patient. [...] above attestation) on 25-Nov-2018 Comments/ Additional Findings COIN MACHINE MECHANIC interrogated at 1623. 24h use: 8.7 mg with 87/89 dose/demand; 12h use 3.9 mg with 39/39 dose/demand. Opioid need continues to decrease post-op. Should be able to transition to non-COIN MACHINE MECHANIC based or oral regimen soon. Call with questions. [id number] Electronic Signatures: Nessa Mercado (Resident)) (Signed 25-Nov-2018 14:54) Authored: Service, Subjective Data, Objective Data, Assessment and Plan, Signature/Cosignature/Attes tation Annette Keller) (Signed 26-Nov-2018 10:06) Authored: Service, Signature/Cosignature/Attes tation Co-Signer: Service, Subjective Data, Objective Data, Assessment and Plan, Signature/Cosignature/Attes tation Last Updated: 26-Nov-2018 10:06 by Annette Keller) Normal [facility] RENAL FUNCTION PANELon 11-25 Albumin mass conc 3.1 g/dL Low 3.4 - 5.0 [facility] Comment on above: Performed By: #### U A #### [facility] [address] [place] [address] Anion gap molar conc 14 mmol/L Normal 10 - 20 [facility] Comment on above: Performed By: #### U A #### [facility] [address] [place] [address] Calcium mass conc 8.5 mg/dL Low 8.6 - 10.6 [facility] Comment on above: Performed By: #### U A #### [facility] [address] [place] [address] Chloride molar conc 106 mmol/L Normal 98 - 107 [facility] Comment on above: Performed By: #### U A #### [facility] [address] [place] [address] Creatinine mass conc 0.66 mg/dL Normal 0.50 - 1.05 [facility] Comment on above: Performed By: #### U A #### [facility] [address] [place] [address] GFR- AM. >60 Normal >60 [facility] Comment on above: Result Comment: CALC ULATIONS OF ESTIMATED GFR ARE PERFORMED USING THE MDRD STUDY EQUATION FOR THE IDMS-TRACEABLE CREATININE METHODS. CLIN CHEM 2007;53:766-72 Performed By: #### U A #### [facility] [address] [place] [address] GFR-NON AM. >60 Normal >60 [facility] Comment on above: Performed By: #### U A #### [facility] [address] [place] [address] Glucose mass conc 101 mg/dL High 74 - 99 [facility] Comment on above: Performed By: #### U A #### [facility] [address] [place] [address] HCO3 molar conc (Bld) 24 mmol/L Normal 21 - 32 [facility] Comment on above: Performed By: #### U A #### [facility] [address] [place] [address] Phosphate mass conc 3.2 mg/dL Normal 2.5 - 4.9 [facility] Comment on above: Result Comment: The performance characteristics of phosphorus testing in heparinized plasma have been validated by the individual laboratory site where testing is performed. Testing on heparinized plasma is not approved by the FDA; however, such approval is not necessary. Performed By: #### U A #### [facility] [address] [place] [address] Potassium molar conc 4.1 mmol/L Normal 3.5 - 5.3 [facility] Comment on above: Performed By: #### U A #### [facility] [address] [place] [address] Sodium molar conc 140 mmol/L Normal 136 - 145 [facility] Comment on above: Performed By: #### U A #### [facility] [address] [place] [address] Urea nitrogen mass conc 22 mg/dL Normal 6 - 23 [facility] Comment on above: Performed By: #### U A #### [facility] [address] [place] [address] BN SPINE, THORACIC, MIN 4 EWSon 11-24-2018 BN SPINE, THORACIC, MIN 4 VIEWS Patient Name: TRISH HUNT STUDY: BN SPINE, THORACIC, MIN 4 VIEWS; 11/24/2018 12:10 pm INDICATION: Signs/Symptoms: s/p T10-T11 decompression and T7-L2 fusion. COMPARISON: T-spine radiograph dated 11/22/2018, CT dated 11/14/2018. ACCESSION NUMBER(S): [id number] ORDERING CLINICIAN: JORDAN SAUNDERS FINDINGS: AP and [...] as stated. This study was interpreted at [facility], [place], [place]. Electronically signed by: WELLINGTON VIDAL MD Normal [facility] CBCon 11-24-2018 Erythrocyte distribution width Ratio (RBC) 13.2 % Normal 11.5 - 14.5 [facility] Comment on above: Performed By: #### U A #### [facility] [address] [place] [address] Hematocrit Volume Fraction (Bld) 28.1 % Low 36.0 - 46.0 [facility] Comment on above: Performed By: #### U A #### [facility] [address] [place] [address] Hemoglobin mass conc (Bld) 8.9 g/dL Low 12.0 - 16.0 [facility] Comment on above: Performed By: #### U A #### [facility] [address] [place] [address] MCHC mass conc (RBC) 31.7 g/dL Low 32.0 - 36.0 [facility] Comment on above: Performed By: #### U A #### [facility] [address] [place] [address] MCV Entitic volume (RBC) 96 fL Normal 80 - 100 [facility] Comment on above: Performed By: #### U A #### [facility] [address] [place] [address] Nucleated RBC/100 WBC Ratio (Bld) 0.0 /100 WBC Normal 0.0-0.0 [facility] Comment on above: Performed By: #### U A #### [facility] [address] [place] [address] Platelets #/vol (Bld) 211 10*3/uL Normal 150 - 450 [facility] Comment on above: Performed By: #### U A #### [facility] [address] [place] [address] RBC #/vol (Bld) 2.92 x10E12/L Low 4.00 - 5.20 [facility] Comment on above: Performed By: #### U A #### [facility] [address] [place] [address] WBC #/vol (Bld) 14.9 10*3/uL High 4.4 - 11.3 [facility] Comment on above: Performed By: #### U A #### [facility] [address] [place] [address] Erythrocyte distribution width Ratio (RBC) 13.0 % Normal 11.5 - 14.5 [facility] Comment on above: Performed By: #### C BC ####[id number] [place] [address] Hematocrit Volume Fraction (Bld) 24.6 % Low 36.0 - 46.0 [facility] Comment on above: Performed By: #### C BC ####[id number] [place] [address] Hemoglobin mass conc (Bld) 7.8 g/dL Low 12.0 - 16.0 [facility] Comment on above: Performed By: #### C BC ####[id number] [place] [address] MCHC mass conc (RBC) 31.7 g/dL Low 32.0 - 36.0 [facility] Comment on above: Performed By: #### C BC ####[id number] [place] [address] MCV Entitic volume (RBC) 96 fL Normal 80 - 100 [facility] Comment on above: Performed By: #### C BC ####[id number] [place] [address] Nucleated RBC/100 WBC Ratio (Bld) 0.0 /100 WBC Normal 0.0-0.0 [facility] Comment on above: Performed By: #### C BC ####[id number] [place] [address] Platelets #/vol (Bld) 231 10*3/uL Normal 150 - 450 [facility] Comment on above: Performed By: #### C BC ####[id number] [place] [address] RBC #/vol (Bld) 2.56 x10E12/L Low 4.00 - 5.20 [facility] Comment on above: Performed By: #### C BC ####[id number] [place] [address] WBC #/vol (Bld) 16.1 10*3/uL High 4.4 - 11.3 [facility] Comment on above: Performed By: #### C BC ####[id number] [place] [address] Erythrocyte distribution width Ratio (RBC) 13.0 % Normal 11.5 - 14.5 [facility] Comment on above: Performed By: #### C BC ####[id number] [place] [address] Hematocrit Volume Fraction (Bld) 25.6 % Low 36.0 - 46.0 [facility] Comment on above: Performed By: #### C BC ####[id number] [place] [address] Hemoglobin mass conc (Bld) 8.3 g/dL Low 12.0 - 16.0 [facility] Comment on above: Performed By: #### C BC ####[id number] [place] [address] MCHC mass conc (RBC) 32.4 g/dL Normal 32.0 - 36.0 [facility] Comment on above: Performed By: #### C BC ####[id number] [place] [address] MCV Entitic volume (RBC) 96 fL Normal 80 - 100 [facility] Comment on above: Performed By: #### C BC ####[id number] [place] [address] Nucleated RBC/100 WBC Ratio (Bld) 0.0 /100 WBC Normal 0.0-0.0 [facility] Comment on above: Performed By: #### C BC ####[id number] [place] [address] Platelets #/vol (Bld) 236 10*3/uL Normal 150 - 450 [facility] Comment on above: Performed By: #### C BC ####[id number] [place] [address] RBC #/vol (Bld) 2.68 x10E12/L Low 4.00 - 5.20 [facility] Comment on above: Performed By: #### C BC ####[id number] [place] [address] WBC #/vol (Bld) 19.6 10*3/uL High 4.4 - 11.3 [facility] Comment on above: Performed By: #### C BC ####[id number] [id number] Clinical Event Note-post ope rative follow upon 11-24-2018 Clinical Event Note-post operative follow up Event: Topic: post operative follow up Details: went to see patient at around 2200 as she is post op T7-L2 laminectomy, decompression and instrumental fusion. She is awake and alert, oriented. denies pain (has COIN MACHINE MECHANIC), currently denies nausea but is requesting phenergan if it occurs as zofran (which is ordered) has not helped well in past. On review of post op documentation it is noted that 1100 EBL during OR. Per electromedical service engineer shows intact neurovascular status and only shadow [...] Team Contact Information: Provider/Team Contact Info-Pager Number: [phone] Electronic Signatures: Edith Dior (DEFENCE INTELLIGENCE ANALYST-FAMILY PROTECTION SPECIALIST) (Signed 24-Nov-2018 06:04) Authored: Event, Provider / Team Contact Information Last Updated: 24-Nov-2018 06:04 by Edith Dior (DEFENCE INTELLIGENCE ANALYST-FAMILY PROTECTION SPECIALIST) Normal [facility] Daily Progress Note-Medicine on 11-24-2018 Protein mass conc Service: Medicine Subjective Data: TRISH HUNT is a 73 year old Female who is Hospital Day # 13 and POD #1 for T10-11 transpedicular decompression of tumor, T7-L2 instrumented fusion. Objective Data: Objective Information: T PRBPSpO2 [id number]/6994% Date/Time11/24 10: 10: 10: 10: 10:15 Range(36.4C - 37.1C ) (65 - 78 ) (18 - 20 ) (72 - 110 )/ (42 - 69 ) (91% - 94% ) Highest temp of 37.1 C was recorded at 11/24 1:20 Pain reported at 11/24 9:56: 3 Physical Exam: Constitutional: see medical attendings daily assessment Medication: Medications: Continuous Medications ----- 1. HYDROmorphone COIN MACHINE MECHANIC 25 mg/ NaCL 0.9% 50 mL: 25 mg IV COIN MACHINE MECHANIC Scheduled Medications ----- 1. Acetaminophen: 975 mg Oral Every 8 [...] 20 mg Oral At Bedtime PRN Medications ----- 1. Albuterol 2.5 mg/ 3 mL Nebulizer Soln: 3 mL Inhalation Every 2 Hours 2. Bisacodyl Rectal: 10 mg Rectal Daily 3. diphenhydrAMINE Injectable: 25 mg IntraVenous Push Every 4 Hours 4. Loratadine: 10 mg Oral Daily 5. Naloxone Injectable: 0.2 mg IntraVenous Push Once 6. Promethazine IV Piggy Back: 12.5 mg IntraVenous Piggyback Every 6 Hours Currently Suspended Medications ----- 1. Sodium Chloride 0.9% IV Bolus: 1000 mL IntraVenous Piggyback Once Recent Lab Results: Results: I have reviewed these laboratory results: Complete Blood Count Trending View [id number] 09:32:00 24-Nov-2018 06:10:00 23-Nov-2018 23:09:00 White Blood Cell Count14.9 H 16.1 H 19.6 H Nucleated Erythrocyte Count0.0 0.0 0.0 Red Blood Cell Count2.92 L 2.56 L 2.68 L HGB8.9 L 7.8 L 8.3 L HCT28.1 L 24.6 L 25.6 L MCV96 96 96 MCHC31.7 L 31.7 L 32.4 LAJ167 231 236 RDW-CV13.2 13.0 13.0 Renal Function [...] Cord Stimulator Implant who is transferred to [facility] 11/12/[address] [facility] after presenting with intractable progressive back [...] with T10 fracture and additional metastases. s/p 11/23 - T10-11 transpedicular decompression of tumor, T7-L2 [...] allow for adequate healing - started on COIN MACHINE MECHANIC post- op along with scheduled flexiril and APAP, lidoderm patchs - monitor for confusion some of these medications may need to be decreased - did have thoracic standing xray today - plan for MRI with anesthesia tomorrow, will be NPO after midnight, Call MRI in am to see if scheduled - monitor Back Pain Reports some improvement after initiation of COIN MACHINE MECHANIC -Palliative care consulted to aid in pain management -Continue Acetaminophen 975 mg by mouth three times a day -Continue Dilaudid COIN MACHINE MECHANIC -Phenergan PRN -Continue Dexamethasone 4mg BID (0800 [...] at this time, Pt/OT reordered following OR Signature/Cosignature/Attes tation: Provider/Team Contact Info-Pager [phone] Attending Only - Shared Visit with Advanced [...] documented. She has done quite well with COIN MACHINE MECHANIC. At the time we arrived in her room she was awake and fully engaged in conversation. No much pain, was more receptive. She is punctual with pressing the COIN MACHINE MECHANIC. Two female materials buyer were present in the room. Physical examination: [...] most recent labs and discussed with the FAMILY PROTECTION SPECIALIST. WBC: 10.2 -> 16.1 -> 14.9 Hctr: 43.9 -> 24.6 -> 28.1 Platelet: 324 -> 231 -> 211 BUN/creatinine: 27/0.74 -> 28/0.86 Anatomic pathology report reviewed and discussed on previous days. I reviewed the imaging, I read the report and discussed with the FAMILY PROTECTION SPECIALIST. AP and lateral view of the thoracic [...] reviewed the medications and discussed with the FAMILY PROTECTION SPECIALIST. 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 Palliative care team is following the patient, [...] Signatures: Rocky Oquendo) (Signed 24-Nov-2018 15:46) Authored: Signature/Cosignature/Attes tation Jordan Saunders (DEFENCE INTELLIGENCE ANALYST-FAMILY PROTECTION SPECIALIST) (Signed 24-Nov-2018 17:28) Authored: Service, Subjective Data, Objective Data, Assessment and Plan, Signature/Cosignature/Attes tation Last Updated: 24-Nov-2018 17:28 by Jordan Saunders (DEFENCE INTELLIGENCE ANALYST-FAMILY PROTECTION SPECIALIST) Normal [facility] Daily Progress Note-Neurosprakash ravindramaria isabel 11-24-2018 Protein mass conc Service: Neurosurger y Subjective Data: TRISH HUNT is a 73 year old Female who is Hospital Day # 13 and POD #1 for T10-11 transpedicular decompression of tumor, T7-L2 instrumented fusion. Objective Data: Objective Information: T PRBPSpO2 [id number]/5891% Date/Time11/24 5: 5: 5: 5: 5:07 Range(36.5C [...] time (48 hr for cardiac surgery): yes Signature/Cosignature/Attes tation: Attending AttestationI saw and evaluated the patient. [...] the above attestation) on 24-Nov-2018 Electronic Signatures: Fartun Tamayo) (Signed 24-Nov-2018 13:41) Authored: Assessment and Plan, SCIP Measures, Signature/Cosignature/Attes tation Co-Signer: Service, Subjective Data, Objective Data, Assessment and Plan, Signature/Cosignature/Attes tation Ronnie Rincon (Resident)) (Signed 24-Nov-2018 06:46) Authored: Service, Subjective Data, Objective Data, Assessment and Plan, Signature/Cosignature/Attes tation Last Updated: 24-Nov-2018 13:41 by Fartun Tamayo) Normal [facility] Daily Progress Note-Palliati ve Careon 11-24-2018 Protein mass conc Consult Type: subseq uent visit/care Service: Palliative Care Subjective Data: TRISH [...] now and is well controlled with her COIN MACHINE MECHANIC, and that her nausea has been under control as well. Team changed COIN MACHINE MECHANIC to hydromorphone 0.1mg q6min PRN (from 0.2mg q10min). No other concerns including constipation or urinary discomfort. 7.3mg IV dilaudid = 146 OME over 12 hours on COIN MACHINE MECHANIC (1/8 21:46 to 11/24 09:09) in immediate postop period No doses of phenergan since 11/22 Objective Data: Objective Information: T PRBPSpO2 Value36.91732401/6994% Date/Time11/24 10: 10: 10: 10: 10:15 Range(36.4C [...] posterior R arm Medication: Medications: Continuous Medications ----- 1. HYDROmorphone COIN MACHINE MECHANIC 25 mg/ NaCL 0.9% 50 mL: 25 mg IV COIN MACHINE MECHANIC Scheduled Medications ----- 1. Acetaminophen: 975 mg Oral Every 8 [...] 20 mg Oral At Bedtime PRN Medications ----- 1. Albuterol 2.5 mg/ 3 mL Nebulizer Soln: 3 mL Inhalation Every 2 Hours 2. Bisacodyl Rectal: 10 mg Rectal Daily 3. diphenhydrAMINE Injectable: 25 mg IntraVenous Push Every 4 Hours 4. Loratadine: 10 mg Oral Daily 5. Naloxone Injectable: 0.2 mg IntraVenous Push Once 6. Promethazine IV Piggy Back: 12.5 mg IntraVenous Piggyback Every 6 Hours Currently Suspended Medications ----- 1. Sodium Chloride 0.9% IV Bolus: 1000 [...] HLD, presenting as transfer from [facility] for back pain due to spinal [...] not yet fully established. - continue hydromorphone COIN MACHINE MECHANIC (0.1mg q6min dosing) especially during perioperative period [...] Please contact us for any questions via [employer] or pager [phone]. Nessa Mercado Internal Medicine PGY-1 Signature/Cosignature/Attes tation: Attending AttestationI saw and evaluated the patient. [...] above attestation) on 24-Nov-2018 Comments/ Additional Findings COIN MACHINE MECHANIC interrogated at 1542; in the prior 12 [...] as she did last week. Would continue COIN MACHINE MECHANIC for fluctuating post-operative pain requirement. Call with questions, [phone] Electronic Signatures: Nessa Mercado (Resident)) (Signed 24-Nov-2018 16:26) Authored: Service, Subjective Data, Objective Data, Assessment and Plan, Signature/Cosignature/Attes tation Annette Keller) (Signed 24-Nov-2018 17:05) Authored: Service, Assessment and Plan, Signature/Cosignature/Attes tation Co-Signer: Service, Subjective Data, Objective Data, Assessment and Plan, Signature/Cosignature/Attes tation Last Updated: 24-Nov-2018 17:05 by Annette Keller) Normal [facility] Nutrition Therapy-Follow Upo n 11-24-2018 Nutrition Therapy-Follow Up Assessment Subjective/Objective: Note Type: Follow Up Note Authored by: Registered Dietitian Office Machinery Or Equipment Installer Pager Number: [phone] Nutrition Note: The patient is a 73 [...] reported constipation with last BM 11/21. This technical proposal writer continued to encourage PO (small, frequent meals) and consumption of oral nutrition supplements. Objective Information: ---- Intake and Output ----- Mn/Dy/Year TimeIntakeOutputNet Nov 24, 2018 6:00 [id number] Nov 23, 2018 10:00 [id number] The Intake and Output Totals for the last 24 hours are: IntakeOutputNet [id number] Weight 11/12: 113.2kg 11/23: 119.8kg last BM [...] present at this time Estimated Needs: kcals/day: 5158-5399 gms protein/day: ~85 mL fluid/day: 1 ml/kcal [...] 24-Nov-2018 12:55 by Yuridia Thompson (ERASTO, NATHAN) Normal [facility] RENAL FUNCTION PANELon 11-24 Albumin mass conc 3.0 g/dL Low 3.4 - 5.0 [facility] Comment on above: Performed By: #### U A #### [facility] [address] [place] [address] Anion gap molar conc 15 mmol/L Normal 10 - 20 [facility] Comment on above: Performed By: #### U A #### [facility] [address] [place] [address] Calcium mass conc 8.3 mg/dL Low 8.6 - 10.6 [facility] Comment on above: Performed By: #### U A #### [facility] [address] [place] [address] Chloride molar conc 105 mmol/L Normal 98 - 107 [facility] Comment on above: Performed By: #### U A #### [facility] [address] [place] [address] Creatinine mass conc 0.86 mg/dL Normal 0.50 - 1.05 [facility] Comment on above: Performed By: #### U A #### [facility] [address] [place] [address] GFR- AM. >60 Normal >60 [facility] Comment on above: Result Comment: CALC ULATIONS OF ESTIMATED GFR ARE PERFORMED USING THE MDRD STUDY EQUATION FOR THE IDMS-TRACEABLE CREATININE METHODS. CLIN CHEM 2007;53:766-72 Performed By: #### U A #### [facility] [address] [place] [address] GFR-NON AM. >60 Normal >60 [facility] Comment on above: Performed By: #### U A #### [facility] [address] [place] [address] Glucose mass conc 99 mg/dL Normal 74 - 99 [facility] Comment on above: Performed By: #### U A #### [facility] [address] [place] [address] HCO3 molar conc (Bld) 25 mmol/L Normal 21 - 32 [facility] Comment on above: Performed By: #### U A #### [facility] [address] [place] [address] Phosphate mass conc 4.7 mg/dL Normal 2.5 - 4.9 [facility] Comment on above: Result Comment: The performance characteristics of phosphorus testing in heparinized plasma have been validated by the individual laboratory site where testing is performed. Testing on heparinized plasma is not approved by the FDA; however, such approval is not necessary. Performed By: #### U A #### [facility] [address] [place] [address] Potassium molar conc 4.0 mmol/L Normal 3.5 - 5.3 [facility] Comment on above: Performed By: #### U A #### [facility] [address] [place] [address] Sodium molar conc 141 mmol/L Normal 136 - 145 [facility] Comment on above: Performed By: #### U A #### [facility] [address] [place] [address] Urea nitrogen mass conc 25 mg/dL High 6 - 23 [facility] Comment on above: Performed By: #### U A #### [facility] [address] [place] [address] REQUEST-LEUKOREDUCED RED BRANDON LSon 11-24-2018 REQUEST-LEUKOREDUCED RED CELLS ORDER RECD Normal [facility] Comment on above: Performed By: #### O BOILER OR ENGINE OPERATOR ####[id number] [place] [address] ABO/RH GROUP TESTon 11-23-19 19 ABO TYPE O Normal [facility] Comment on above: Performed By: #### T SH2 #### [facility] [address] [place] [address] RH TYPE Positive Normal [facility] Comment on above: Performed By: #### T SH2 #### [facility] [address] [place] [address] ARTERIAL BLOOD GASon 019 BASE EXCESS-BLOOD -1.1 mmol/L Normal -2.0 - 3.0 [facility] Comment on above: Performed By: #### B LGA1 ####[id number] [place] [address] Oxygen ppres (Bld) 168 mm[Hg] High 85 - 95 [facility] Comment on above: Performed By: #### B LGA1 ####[id number] [place] [address] PCO2 38 mmHg Normal 38 - 42 [facility] Comment on above: Performed By: #### B LGA1 ####[id number] [place] [address] pH (Bld) 7.40 [pH] Normal 7.38 - 7.42 [facility] Comment on above: Performed By: #### B LGA1 ####[id number] [place] [address] SO2 100 % Normal 94 - 100 [facility] Comment on above: Performed By: #### B LGA1 ####[id number] [place] [address] BASE EXCESS-BLOOD 0.9 mmol/L Normal -2.0 - 3.0 [facility] Comment on above: Performed By: #### T SH2 #### [facility] [address] [place] [address] Oxygen ppres (Bld) 154 mm[Hg] High 85 - 95 [facility] Comment on above: Performed By: #### T SH2 #### [facility] [address] [place] [address] PCO2 38 mmHg Normal 38 - 42 [facility] Comment on above: Performed By: #### T SH2 #### [facility] [address] [place] [address] pH (Bld) 7.43 [pH] High 7.38 - 7.42 [facility] Comment on above: Performed By: #### T SH2 #### [facility] [address] [place] [address] RBC #/vol (Bld) 25.2 mmol/L Normal 22.0 - 26.0 [facility] Comment on above: Performed By: #### T SH2 #### [facility] [address] [place] [address] SO2 99 % Normal 94 - 100 [facility] Comment on above: Performed By: #### T SH2 #### [facility] [address] [place] [address] ARTERIAL ELECTROLYTE,GLUCOSE PANELon 11-23-2018 Anion gap molar conc 11 mmol/L Normal 10 - 25 [facility] Comment on above: Performed By: #### T SH2 #### [facility] [address] [place] [address] Chloride molar conc 105 mmol/L Normal 98 - 107 [facility] Comment on above: Performed By: #### T SH2 #### [facility] [address] [place] [address] Glucose mass conc 157 mg/dL High 74 - 99 [facility] Comment on above: Performed By: #### T SH2 #### [facility] [address] [place] [address] Potassium molar conc 3.3 mmol/L Low 3.5 - 5.3 [facility] Comment on above: Performed By: #### T SH2 #### [facility] [address] [place] [address] RBC #/vol (Bld) 23.5 mmol/L Normal 22.0 - 26.0 [facility] Comment on above: Performed By: #### T SH2 #### [facility] [address] [place] [address] Performed By: #### B LGA1 ####[id number] [place] [address] Sodium molar conc 136 mmol/L Normal 136 - 145 [facility] Comment on above: Performed By: #### T SH2 #### [facility] [address] [place] [address] Anion gap molar conc 7 mmol/L Low 10 - 25 [facility] Comment on above: Performed By: #### T SH2 #### [facility] [address] [place] [address] Chloride molar conc 107 mmol/L Normal 98 - 107 [facility] Comment on above: Performed By: #### T SH2 #### [facility] [address] [place] [address] Glucose mass conc 136 mg/dL High 74 - 99 [facility] Comment on above: Performed By: #### T SH2 #### [facility] [address] [place] [address] Potassium molar conc 3.0 mmol/L Low 3.5 - 5.3 [facility] Comment on above: Performed By: #### T SH2 #### [facility] [address] [place] [address] Sodium molar conc 136 mmol/L Normal 136 - 145 [facility] Comment on above: Performed By: #### T SH2 #### [facility] [address] [place] [address] ARTERIAL H+Hon 11-23-2018 Hematocrit Volume Fraction (Bld) 37.0 % Normal 36.0 - 46.0 [facility] Comment on above: Performed By: #### H HNA1 ####[id number] [place] [address] HGB,CALCULATED 12.6 g/dL Normal 12.0 - 16.0 [facility] Comment on above: Performed By: #### H HNA1 ####[id number] [place] [address] Hematocrit Volume Fraction (Bld) 33.0 % Low 36.0 - 46.0 [facility] Comment on above: Performed By: #### T SH2 #### [facility] [address] [place] [address] HGB,CALCULATED 11.2 g/dL Low 12.0 - 16.0 [facility] Comment on above: Performed By: #### T SH2 #### [facility] [address] [place] [address] BN FLUOROSCOPIC GUIDE-THX IN J PROCon 11-23-2018 BN FLUOROSCOPIC GUIDE-THX INJ PROC Patient Name: TRISH HUNT STUDY: BN FLUOROSCOPIC GUIDE-THX INJ PROC; 11/23/2018 3:38 pm INDICATION: Signs/Symptoms: OR spine fluoro. ACCESSION NUMBER(S): [id number] ORDERING CLINICIAN: GRAZYNA LARA FINDINGS: Fluoroscopic support provided during posterior spinal fusion. No fluoroscopic images were submitted.. Total fluoroscopy time was 2.27 seconds. IMPRESSION: Study performed for localization purposes only. Electronically signed by: ALEKSANDRA FRANCOIS MD Normal [facility] BN FLUOROSCOPIC GUIDE-THX INJ PROC Patient Name: TRISH HUNT STUDY: BN FLUOROSCOPIC GUIDE-THX INJ PROC; 11/23/2018 3:38 pm INDICATION: Signs/Symptoms: OR spine fluoro. ACCESSION NUMBER(S): [id number] ORDERING CLINICIAN: GRAZYNA LARA FINDINGS: Fluoroscopic support provided during posterior spinal fusion. A total of 2 fluoroscopic images were obtained. Total fluoroscopy time was 7.2 seconds. IMPRESSION: Study performed for localization purposes only. Electronically signed by: ALEKSANDRA FRANCOIS MD Normal [facility] CALCIUM, IONIZEDon 9 CALCIUM,IONIZED 1.12 mmol/L Normal 1.10 - 1.33 [facility] Comment on above: Result Comment: The performance characteristics of ionized calcium tested in heparinized plasma or serum have been validated by the individual laboratory site where testing is performed. Testing on heparinized plasma or serum is not approved by the FDA; however, such approval is not necessary. Performed By: #### I ONC1 ####[id number] [place] [address] CALCIUM,IONIZED 1.18 mmol/L Normal 1.10 - 1.33 [facility] Comment on above: Result Comment: The performance characteristics of ionized calcium tested in heparinized plasma or serum have been validated by the individual laboratory site where testing is performed. Testing on heparinized plasma or serum is not approved by the FDA; however, such approval is not necessary. Performed By: #### T SH2 #### [facility] [address] [place] [id number] Daily Progress Note-Medicine on 11-23-2018 Protein mass conc Service: Medicine Subjective Data: TRISH HUNT is a 73 year old Female who is Hospital Day # 12. Objective Data: Objective Information: T PRBPSpO2 [id number]/7597% Date/Time11/23 3: 3: 3: 3: 3:40 Range(35.9C - 36.5C ) (69 - 88 ) (16 - 18 ) (136 - 175 )/ (74 - 107 ) (94% - 98% ) Pain reported at 11/23 7:10: 8 Physical Exam: Constitutional: In OR for most of the day Medication: Medications: Continuous Medications ----- 1. HYDROmorphone COIN MACHINE MECHANIC 25 mg/ NaCL 0.9% 50 mL: 25 mg IV COIN MACHINE MECHANIC 2. Lactated Ringers Infusion: 1000 mL IntraVenous 3. Lactated Ringers Infusion: 1000 mL IntraVenous Scheduled Medications ----- 1. Acetaminophen: 975 mg Oral Every 8 [...] 20 mg Oral At Bedtime PRN Medications ----- 1. Albuterol 2.5 mg/ 3 mL Nebulizer [...] Reference Range: STRAW,YELLOW Appearance, Urine CLEAR Specific Clover, Urine 1.013 pH, Urine 7.0 Protein, Urine [...] Cord Stimulator Implant who is transferred to [facility] 11/12/[address] [facility] after presenting with intractable progressive back [...] allow for adequate healing - started on COIN MACHINE MECHANIC post- op along with scheduled flexiril and APAP, lidoderm patchs and ice packs, per report she is having a lot of pain. - monitor for confusion some of these medications may need to be decreased - monitor Back Pain Reports some improvement after initiation of COIN MACHINE MECHANIC -Palliative care consulted to aid in pain management -Continue Acetaminophen 975 mg by mouth three times a day -Continue Dilaudid COIN MACHINE MECHANIC 0.2 dose with 10 min lock out [...] SNF at this time, re-eval after OR Signature/Cosignature/Attes tation: Provider/Team Contact Info-Pager [phone] Attending Only - Shared Visit with Advanced Practice ProviderThis is a shared visit. I have reviewed the Advanced Practice Providers encounter note, approve the Advanced Practice Providers documentation, and provide the following additional information from my personal encounter. Comments/ Additional Findings Patient was taken to the OR before rounds and remained in the recovery until mid evening. For pain after surgery to continue COIN MACHINE MECHANIC. Electronic Signatures: Rocky Oquendo) (Signed 23-Nov-2018 19:46) Authored: Signature/Cosignature/Attes tation Jordan Saunders (DEFENCE INTELLIGENCE ANALYST-FAMILY PROTECTION SPECIALIST) (Signed 23-Nov-2018 17:59) Authored: Service, Subjective Data, Objective Data, Assessment and Plan, Signature/Cosignature/Attes tation Last Updated: 23-Nov-2018 19:46 by Rocky Oquendo) Normal [facility] History and Physical - Surgi leonidas Update < 30 dayson 11-23-2018 History and Physical - Surgical Update < 30 days History & Physical Reviewed: I have reviewed the History and Physical dated: 22-Nov-2018 History and Physical reviewed and relevant findings noted. Patient examined to review pertinent physical findings.: No significant changes Home Medications Reviewed: no changes noted Allergies Reviewed: no changes noted This patient has been seen and discussed with the attending physician responsible for performing the procedure: yes Signatures/Attestation/Cert ification: Attending AttestationI saw and evaluated the patient. [...] of care, and discharge plan. Electronic Signatures: Fartun Tamayo) (Signed 23-Nov-2018 08:11) Authored: Signatures/Attestation/Cert ification Co-Signer: History & Physical Reviewed, Signatures/Attestation/Cert ification Grazyna Lara (Resident)) (Signed 22-Nov-2018 13:54) Authored: History & Physical Reviewed, Signatures/Attestation/Cert ification Last Updated: 23-Nov-2018 08:11 by Fartun Tamayo) [facility] OPERATIVE REPORTon 9 [place] [address] Patient Name: TRISH HUNT : 1945 Date of Service: 11/23/2018 Patient Location: [facility] T82 [id number] Patient Type: I Surgeon: aFrtun Tamayo MD Report Type: Operative Reports PREOPERATIVE [...] 7. Placement of 2 subfascial drains. SURGEON: Fartun Tamayo MD PACKAGE SEALER(S): 1. Tai Maurice MD 2. Grazyna Lara [...] [facility], after the patient's head was placed [...] with bipolar forceps and monopolar electrocautery. The C-arm fluoroscopy unit was utilized to positively identify the correct levels. We then directed our attention to pedicle screw placement. We then placed the navigation tracking clamp on the spinous process of T7. We brought in the O arm to obtain 2 images in order to obtain adequate shots. Once we had adequate imaging on the O arm, those images were sent to the Wideo navigation platform. We confirmed anatomical accuracy with [...] in stable condition to the recovery room. Fartun Tamayo MD EST TT: 11/25/2018 03:56 AM EST DICTATION NUMBER: [id number] LEONARDA JOB NUMBER: [id number] CC: Rocky Oquendo MD, PhD Edited by Fartun Tamayo 11/30/2018 07:31:32 PM Edited by Fartun Tamayo 11/30/2018 07:39:51 PM Edited by Fartun Tamayo 11/30/2018 07:40:32 PM Edited by Fartun Tamayo 12/02/2018 07:35:59 PM Edited by Fartun Tamayo 12/02/2018 07:42:42 PM Electronically Signed by Dr. Fartun Tamayo 12/02/2018 07:42:42 PM Normal [facility] Preop Checkliston 11-23-2018 Preop Checklist Preop Checklist: Preop Checklist: NPO [id number] 00:00 ID Band Onyes Allergy Bandyes Consent [...] Updated: 23-Nov-2018 01:15 by Justin Valdes (RN) Normal [facility], [place], operated by [facility] Surgical Pathology Depar tmenton 11-23-2018 [facility] Surgical Pathology Department Name TRISH HUNT Pathologist: Samantha Martinez MD, Ph.D. Date of Procedure: 11/23/2018 Date Received: 11/23/2018 Date Reported 11/29/2018 Submitting Physician: FARTUN TAMAYO MD Location: [facility] Other External # FINAL DIAGNOSIS SPINE, THORACIC, EXCISION: --METASTATIC NON-SMALL CELL CARCINOMA CONSISTENT WITH ADENOCARCINOMA INVOLVING SOFT TISSUE AND BONE. SEE NOTE Note: Findings are consistent with previous ([id number]) Electronically Signed Out By Samantha Martinez MD, Ph.D./MAC By the signature on this report, the individual or group listed as making the Final Interpretation/Diagnosis certifies that they have reviewed this case. Clinical History: Metastatic tumor to thoracic spine Specimens Submitted As: A: TUMOR INFILTRATING THORACIC BONE Gross Description: Received fresh, labeled with the patient's name and hospital number and "tumor infiltrating thoracic bone", are multiple fragments of red-brown, soft tissue and bony tissue aggregating to 6.5 x 6.5 x 1.5 cm. Ornamenter Hand sections are submitted in 5 cassettes. DJO djo/11/24/2018 Normal [facility] Comment on above: Performed By: #### C BCDF #### [facility] [id number] [place] [address] BN SPINE, LUMBOSACRAL; 2 OR 3 VIEWSon 11-22-2018 BN SPINE, LUMBOSACRAL; 2 OR 3 VIEWS Patient Name: TRISH HUNT STUDY: BN SPINE, LUMBOSACRAL; 2 OR 3 VIEWS; THORACIC SPINE AP/LAT; 11/22/2018 8:18 pm INDICATION: Signs/Symptoms: preop planning. COMPARISON: L-spine CT dated 11/14/2018. ACCESSION NUMBER(S): [id number]; [id number] ORDERING CLINICIAN: DEBORAH ESPANA FINDINGS: Two views of the thoracic spine including AP and lateral views, and four views of the lumbar spine including AP and lateral views, Evaluation is significantly limited due to overlying soft tissue shadow. There are 5 egi-htt-bnjankm lumbar type vertebrae. There is again pathologic [...] as stated. This study was interpreted at [place], [place]. Electronically signed by: ASHLEY MONTERO MD [facility] THORACIC SPINE AP/LATon 0 11-22-2018 THORACIC SPINE AP/LAT Patient Name: TRISH HUNT STUDY: BN SPINE, LUMBOSACRAL; 2 OR 3 VIEWS; THORACIC SPINE AP/LAT; 11/22/2018 8:18 pm INDICATION: Signs/Symptoms: preop planning. COMPARISON: L-spine CT dated 11/14/2018. ACCESSION NUMBER(S): [id number]; [id number] ORDERING CLINICIAN: DEBORAH ESPANA FINDINGS: Two views of the thoracic spine including AP and lateral views, and four views of the lumbar spine including AP and lateral views, Evaluation is significantly limited due to overlying soft tissue shadow. There are 5 jam-ccs-scmpnmb lumbar type vertebrae. There is again pathologic [...] as stated. This study was interpreted at [facility], [place], [place]. Electronically signed by: ASHLEY MONTERO MD Normal [facility] CBCon 11-22-2018 Erythrocyte distribution width Ratio (RBC) 12.9 % Normal 11.5 - 14.5 [facility] Comment on above: Performed By: #### C BC ####[id number] [id number] Hematocrit Volume Fraction (Bld) 43.9 % Normal 36.0 - 46.0 [facility] Comment on above: Performed By: #### C BC ####[id number] [place] [address] Hemoglobin mass conc (Bld) 14.0 g/dL Normal 12.0 - 16.0 [facility] Comment on above: Performed By: #### C BC ####[id number] [place] [address] MCHC mass conc (RBC) 31.9 g/dL Low 32.0 - 36.0 [facility] Comment on above: Performed By: #### C BC ####[id number] [place] [address] MCV Entitic volume (RBC) 96 fL Normal 80 - 100 [facility] Comment on above: Performed By: #### C BC ####[id number] [place] [address] Nucleated RBC/100 WBC Ratio (Bld) 0.0 /100 WBC Normal 0.0-0.0 [facility] Comment on above: Performed By: #### C BC ####[id number] [place] [address] Platelets #/vol (Bld) 324 10*3/uL Normal 150 - 450 [facility] Comment on above: Performed By: #### C BC ####[id number] [place] [address] RBC #/vol (Bld) 4.58 x10E12/L Normal 4.00 - 5.20 [facility] Comment on above: Performed By: #### C BC ####[id number] [place] [address] WBC #/vol (Bld) 10.2 10*3/uL Normal 4.4 - 11.3 [facility] Comment on above: Performed By: #### C BC ####[id number] [place] [address] COAGULATION SCREENon 019 aPTT Coag time (Bld) 33 s Normal 28 - 38 [facility] Comment on above: Result Comment: Note new reference range as of 09/07/2018. THE APTT IS NO LONGER USED FOR MONITORING UNFRACTIONATED HEPARIN THERAPY. FOR MONITORING HEPARIN THERAPY, USE THE HEPARIN ASSAY. Performed By: #### C OAGS ####[id number] [place] [address] INR Coag RelTime (PPP) 1.1 {INR} Normal 0.9 - 1.1 [facility] Comment on above: Performed By: #### C OAGS ####[id number] [place] [address] Prothrombin time (PT) Coag time (PPP) 12.0 s Normal 9.7 - 12.7 [facility] Comment on above: Result Comment: Note new reference range as of 09/07/2018. Performed By: #### C OAGS ####[id number] [place] [address] Clinical Event Note-Neurosur alicia update noteon 11-22-2018 Clinical Event Note-Neurosurgery update note Event: Topic: Neurosurgery update note Details: Pre-operative review of CXR demonstrates interval RLL effusion/consolidation. Currently stable from respiratory standpoint. Conveyed plan for diuresis overnight to primary team. Please page with questions concerns. Patient is scheduled for 7:15 AM start on 11/23 for thoracic decompression/instrumented fusion. Provider / Team Contact Information: Provider/Team Contact Info-Pager Number: [phone] Electronic Signatures: Diane Ruiz ( (Resident)) (Signed 22-Nov-2018 20:27) Authored: Event, Provider / Team Contact Information Last Updated: 22-Nov-2018 20:27 by Diane Ruiz ( (Resident)) Normal [facility] Daily Progress Note-Medicine on 11-22-2018 Protein mass conc Service: Medicine Subjective Data: TRISH HUNT is a 73 year old Female who is Hospital Day # 11. Objective Data: Objective Information: T PRBPSpO2 [id number]/01479% Date/Time11/22 11: 11: 11: 11: 11:46 Range(35.6C [...] intact, no rashes Medication: Medications: Continuous Medications ----- 1. HYDROmorphone COIN MACHINE MECHANIC 25 mg/ NaCL 0.9% 50 mL: 25 mg IV COIN MACHINE MECHANIC Scheduled Medications ----- 1. Acetaminophen: 975 mg Oral 2. Dexamethasone: 4 mg Oral 3. Dextromethorphan 30 mg - guaiFENesin 600 [...] IntraVenous Flush Every 12 Hours PRN Medications ----- 1. Albuterol 2.5mg - Ipratropium 0.5 mg/ [...] Cord Stimulator Implant who is transferred to [facility] 11/12/[address] [facility] after presenting with intractable progressive back [...] Pain Reports some improvement after initiation of COIN MACHINE MECHANIC -Palliative care consulted to aid in pain management -Continue Acetaminophen 975 mg by mouth three times a day -Continue Dilaudid COIN MACHINE MECHANIC 0.2 dose with 10 min lock out [...] SNF at this time, re-eval after OR Signature/Cosignature/Attes tation: Attending Only - Shared Visit with Advanced Practice ProviderThis is a shared visit. I have reviewed the Advanced Practice Providers encounter note, approve the Advanced Practice Providers documentation, and provide the following additional information from my personal encounter. Comments/ Additional Findings I resumed the care after the weekend off. COIN MACHINE MECHANIC helped with pain control and the patient [...] edema in both legs/feet (R>L). External urine coin machine collector attached, urine is dark clear. Neuro exam showed no focal deficit. Motion in bed triggers back pain, she avoids turning. Coherent, did appear depressed. The rest of today's physical findings are similar to those noted/reported 3 days ago. I reviewed the most recent labs and discussed with the FAMILY PROTECTION SPECIALIST. WBC: 10.2 Hctr: 43.9 Platelet: 324 BUN/creatinine: [...] read the report and discussed with the FAMILY PROTECTION SPECIALIST. I reviewed the medications and discussed with the FAMILY PROTECTION SPECIALIST. 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 Pain has been managed optimally with COIN MACHINE MECHANIC. Palliative care team is following the patient, [...] Signatures: Rocky Oquendo) (Signed 22-Nov-2018 17:05) Authored: Signature/Cosignature/Attes Dominic Suarez (DEFENCE INTELLIGENCE ANALYST-FAMILY PROTECTION SPECIALIST) (Signed 22-Nov-2018 14:53) Authored: Service, Subjective Data, Objective Data, Assessment and Plan Last Updated: 22-Nov-2018 17:05 by Rocky Oquendo) [facility] Daily Progress Note-Palliati ve Careon 11-22-2018 Protein mass conc Consult Type: subseq uent visit/care Service: Palliative Care Subjective Data: TRISH HUNT is a 73 year old Female who is Hospital Day # 11. Additional Information: Ms. Hunt continues to feel pain but notes that it comes and goes, often worse if she moves around or sits too long. Nausea controlled with phenergan. Able to concentrate on things other than pain today. COIN MACHINE MECHANIC requirements per EMR: 11/21 (11/21 4:20AM- 11/22 4:52AM): 4.2mg dilaudid = 84 OME 11/20 (to 11/21 4:20AM): 2.4mg dilaudid = 48 OME Objective Data: Objective Information: T PRBPSpO2 [id number]/74375% Date/Time11/22 11: 11: 11: 11: 11:46 Range(35.6C [...] posterior R arm Medication: Medications: Continuous Medications ----- 1. HYDROmorphone COIN MACHINE MECHANIC 25 mg/ NaCL 0.9% 50 mL: 25 mg IV COIN MACHINE MECHANIC Scheduled Medications ----- 1. Acetaminophen: 975 mg Oral 2. Dexamethasone: 4 mg Oral 3. Dextromethorphan 30 mg - guaiFENesin 600 [...] IntraVenous Flush Every 12 Hours PRN Medications ----- 1. Albuterol 2.5mg - Ipratropium 0.5 mg/ [...] HLD, presenting as transfer from [facility] for back pain due to spinal [...] not yet fully established. - continue hydromorphone COIN MACHINE MECHANIC (0.2mg q10min dosing) especially during perioperative period - continue bowel regimen with miralax daily to avoid constipation #Code status/living will: in paper chart - patient expressed desire to be DNR/DNI, updated in EMR Thank you for allowing us to participate in the care of this patient. We will continue to follow. Please contact us for any questions via [employer] or pager [phone]. Nessa Mercado Internal Medicine PGY-1 Signature/Cosignature/Attes tation: Attending AttestationI saw and evaluated the patient. [...] attestation) on 22-Nov-2018 Comments/ Additional Findings Continue COIN MACHINE MECHANIC; anticipate surgery tomorrow and perioperatively would expect significant changes in pain levels so a COIN MACHINE MECHANIC can be a good strategy as it is most flexible and responsive to patient's needs. Consider pamidronate if okay'ed by surgical team. Will follow. Call with questions. [id number] Electronic Signatures: Nessa Mercado (Resident)) (Signed 22-Nov-2018 13:44) Authored: Service, Subjective Data, Objective Data, Assessment and Plan Annette Keller) (Signed 22-Nov-2018 17:58) Authored: Service, Signature/Cosignature/Attes tation Last Updated: 22-Nov-2018 17:58 by Annette Keller) Normal [facility] RENAL FUNCTION PANELon 11-22 Albumin mass conc 3.7 g/dL Normal 3.4 - 5.0 [facility] Comment on above: Performed By: #### R ENAL ####[id number] [place] [address] Anion gap molar conc 14 mmol/L Normal 10 - 20 [facility] Comment on above: Performed By: #### R ENAL ####[id number] [place] [address] Calcium mass conc 9.5 mg/dL Normal 8.6 - 10.6 [facility] Comment on above: Performed By: #### R ENAL ####[id number] [place] [address] Chloride molar conc 103 mmol/L Normal 98 - 107 [facility] Comment on above: Performed By: #### R ENAL ####[id number] [place] [address] Creatinine mass conc 0.74 mg/dL Normal 0.50 - 1.05 [facility] Comment on above: Performed By: #### R ENAL ####[id number] [place] [address] GFR- AM. >60 Normal >60 [facility] Comment on above: Result Comment: CALC ULATIONS OF ESTIMATED GFR ARE PERFORMED USING THE MDRD STUDY EQUATION FOR THE IDMS-TRACEABLE CREATININE METHODS. CLIN CHEM 2007;53:766-72 Performed By: #### R ENAL ####[id number] [place] [address] GFR-NON AM. >60 Normal >60 [facility] Comment on above: Performed By: #### R ENAL ####[id number] [place] [address] Glucose mass conc 92 mg/dL Normal 74 - 99 [facility] Comment on above: Performed By: #### R ENAL ####[id number] [place] [address] HCO3 molar conc (Bld) 28 mmol/L Normal 21 - 32 [facility] Comment on above: Performed By: #### R ENAL ####[id number] [place] [address] Phosphate mass conc 2.7 mg/dL Normal 2.5 - 4.9 [facility] Comment on above: Result Comment: The performance characteristics of phosphorus testing in heparinized plasma have been validated by the individual laboratory site where testing is performed. Testing on heparinized plasma is not approved by the FDA; however, such approval is not necessary. Performed By: #### R ENAL ####[id number] [place] [address] Potassium molar conc 3.9 mmol/L Normal 3.5 - 5.3 [facility] Comment on above: Performed By: #### R ENAL ####[id number] [place] [address] Sodium molar conc 141 mmol/L Normal 136 - 145 [facility] Comment on above: Performed By: #### R ENAL ####[id number] [place] [address] Urea nitrogen mass conc 27 mg/dL High 6 - 23 [facility] Comment on above: Performed By: #### R ENAL ####[id number] [place] [address] REQUEST-LEUKOREDUCED RED BRANDON LSon 11-22-2018 REQUEST-LEUKOREDUCED RED CELLS ORDER RECD Normal [facility] Comment on above: Performed By: #### O BOILER OR ENGINE OPERATOR ####[id number], [place] TH CHEST 1 VIEWon 11-22-2018 TH CHEST 1 VIEW Patient Name: TRISH HUNT STUDY: TH CHEST 1 VIEW; 11/22/2018 12:45 pm INDICATION: Signs/Symptoms: preop. COMPARISON: None. ACCESSION NUMBER(S): [id number] ORDERING CLINICIAN: DOMINIC PRECIADO FINDINGS: CARDIOMEDIASTINAL SILHOUETTE: Cardiomediastinal silhouette is normal in size and configuration. LUNGS: Interval worsening in right basilar consolidation/effusion. No pneumothorax. ABDOMEN: No remarkable upper abdominal findings. BONES: No acute osseous changes. IMPRESSION: 1. Correlate with interval effusion or basilar infiltrate/postobstructive pneumonia Electronically signed by: Dashawn MARCOS MD Normal [facility] TYPE + SCREENon 11-22-2018 ABO TYPE O Normal [facility] Comment on above: Performed By: #### T +S ####[id number] [place] [address] RH TYPE Positive Normal [facility] Comment on above: Performed By: #### T +S ####[id number] [place] [address] URINALYSISon 11-22-2018 Appearance Nom (U) CLEAR Normal CLEAR [facility] Comment on above: Performed By: #### U A ####[id number] [place] [address] Bilirubin mass conc Negative Normal NEGATIVE [facility] Comment on above: Performed By: #### U A ####[id number] [place] [address] BLOOD Negative Normal NEGATIVE [facility] Comment on above: Performed By: #### U A ####[id number] [place] [address] Color Nom (U) YELLOW Normal STRAW,YELL OW [facility] Comment on above: Performed By: #### U A ####[id number] [place] [address] Glucose mass conc Negative Normal NEGATIVE [facility] Comment on above: Performed By: #### U A ####[id number] [place] [address] Ketones Ql (U) Negative Normal NEGATIVE [facility] Comment on above: Performed By: #### U A ####[id number] [place] [address] Leukocyte esterase Test strip Ql (U) Negative Normal NEGATIVE [facility] Comment on above: Performed By: #### U A ####[id number] [place] [address] Nitrite Ql (U) Negative Normal NEGATIVE [facility] Comment on above: Performed By: #### U A ####[id number] [place] [address] pH (Bld) 7.0 Normal 5.0 - 8.0 [facility] Comment on above: Performed By: #### U A ####[id number] [place] [address] Protein mass conc (U) Negative Normal NEGATIVE [facility] Comment on above: Performed By: #### U A ####[id number] [place] [address] Specific gravity Relative Density (U) 1.013 Normal 1.005 - 1.035 [facility] Comment on above: Performed By: #### U A ####[id number] [place] [address] Urobilinogen Qn (U) <2.0 Normal 0.0 - 1.9 [facility] Comment on above: Performed By: #### U A ####[id number] [place] [address] Daily Progress Note-Medicine on 11-21-2018 Protein mass conc Service: Medicine Subjective Data: TRISH HUNT is a 73 year old Female who is Hospital Day # 10. Additional Information: still rating pain at an 8 but reports much better than previous Objective Data: Objective Information: T PRBPSpO2 Value36.53388667/8496% Date/Time11/21 11: 11: 11: 11: 11:30 Range(36C [...] intact, no lesions/rashes Medication: Medications: Continuous Medications ----- 1. HYDROmorphone COIN MACHINE MECHANIC 25 mg/ NaCL 0.9% 50 mL: 25 mg IV COIN MACHINE MECHANIC Scheduled Medications ----- 1. Acetaminophen: 975 mg Oral 2. Dexamethasone: 4 mg Oral 3. Dextromethorphan 30 mg - guaiFENesin 600 [...] IntraVenous Flush Every 12 Hours PRN Medications ----- 1. Albuterol 2.5mg - Ipratropium 0.5 mg/ [...] Cord Stimulator Implant who is transferred to [facility] 11/12/[address] [facility] after presenting with intractable progressive back [...] Pain Reports some improvement after initiation of COIN MACHINE MECHANIC -Palliative care consulted to aid in pain management -Continue Acetaminophen 975 mg by mouth three times a day -Continue Dilaudid COIN MACHINE MECHANIC 0.2 dose with 10 min lock out [...] supportive. -PT recommending SNF at this time Signature/Cosignature/Attes tation: Provider/Team Contact Info-Pager [phone] Attending Only - Shared Visit with Advanced Practice ProviderThis is a shared visit. I have reviewed the Advanced Practice Providers encounter note, approve the Advanced Practice Providers documentation, and provide the following additional information from my personal encounter. Comments/ Additional Findings Seen with the CHIP TUNER at the bedside. Reports to feeling OK, [...] fracture Appreciate palliative care input, cont Dilaudid COIN MACHINE MECHANIC. fairly controlled today. Seen by Med/ Onc/ [...] toilet post op. Electronic Signatures: Dominic Preciado (DEFENCE INTELLIGENCE ANALYST-FAMILY PROTECTION SPECIALIST) (Signed 21-Nov-2018 12:51) Authored: Service, Subjective Data, Objective Data, Assessment and Plan, Signature/Cosignature/Attes Casimiro Medrano) (Signed 21-Nov-2018 15:58) Authored: Signature/Cosignature/Attes tation Co-Signer: Service, Subjective Data, Objective Data, Assessment and Plan, Signature/Cosignature/Attes tation Last Updated: 21-Nov-2018 15:58 by Casimiro Yusuf) Normal [facility] Daily Progress Note-Charity weldon 11-21-2018 Protein mass conc Service: Neurosurger y Subjective Data: TRISH HUNT is a 73 year old Female who is Hospital Day # 10. Objective Data: Objective Information: T PRBPSpO2 Value36.91312478/8596% Date/Time11/21 7: 7: 7: 7: 7:30 Range(36C - 36.6C ) (80 - 92 ) (18 - 18 ) (142 - 154 )/ (75 - 85 ) (92% - 96% ) As of 21-Nov-2018 03:22:00, patient is on 1 L/min of oxygen via nasal cannula. Pain reported at 11/21 4:20: 5 Physical Exam: Neurological: AAOx3 (name, place, and [...] T10/11 lesion Plan -OR plan for 11/23 - WILL NEED RCRI RISK STRATIFICATION PRIOR TO OR from medicine team Signature/Cosignature/Attes tation: Attending AttestationI saw and evaluated the patient. [...] (as noted in the above attestation) on 21-Nov-2018 Electronic Signatures: Grazyna Lara (Resident)) (Signed 21-Nov-2018 09:29) Authored: Service, Subjective Data, Objective Data, Assessment and Plan, Signature/Cosignature/Attes tation Jose Angel Key) (Signed 28-Dec-2018 12:41) Authored: Signature/Cosignature/Attes tation Co-Signer: Service, Subjective Data, Objective Data, Assessment and Plan, Signature/Cosignature/Attes tation Last Updated: 28-Dec-2018 12:41 by Jose Angel Key) Normal [facility] Daily Progress Note-Medicine on 11-20-2018 Protein mass conc Service: Medicine Subjective Data: TRISH HUNT is a 73 year old Female who is Hospital Day # 9. Objective Data: Objective Information: T PRBPSpO2 Value36.31856751/7992% Date/Time11/20 11: 11: 11: 11: 11:22 Range(35.7C [...] behavior Skin: intact Medication: Medications: Continuous Medications ----- 1. HYDROmorphone COIN MACHINE MECHANIC 25 mg/ NaCL 0.9% 50 mL: 25 mg IV COIN MACHINE MECHANIC Scheduled Medications ----- 1. Acetaminophen: 975 mg Oral 2. Dexamethasone: 4 mg Oral 3. Dextromethorphan 30 mg - guaiFENesin 600 [...] IntraVenous Flush Every 12 Hours PRN Medications ----- 1. Albuterol 2.5mg - Ipratropium 0.5 mg/ [...] Cord Stimulator Implant who is transferred to [facility] 11/12/[address] [facility] after presenting with intractable progressive back [...] three times a day - on dilaudid COIN MACHINE MECHANIC, but causing vomiting, phenergan had to be [...] supportive. -PT recommending SNF at this time Signature/Cosignature/Attes tation: Provider/Team Contact Info-Pager [phone] Attending Only - Shared Visit with Advanced Practice ProviderThis is a shared visit. I have reviewed the Advanced Practice Providers encounter note, approve the Advanced Practice Providers documentation, and provide the following additional information from my personal encounter. Comments/ Additional Findings Seen with the CHIP TUNER at the bedside Overnight events noted, reported [...] fracture Appreciate palliative care input, cont Dilaudid COIN MACHINE MECHANIC. fairly controlled today. Seen by Med/ Onc/ Rad/ Onc, appreciate input Planned for OR by Neuro surgery 1/8 Started on Decadron 4mg by mouth twice a day Acute hypoxic resp failure, requiring 2L o2, not been on O2 previously Cont aerosols, IS, bronchial hygiene. Other chronic issues stable, cont meds DVT prophylaxis SNF when medically stable Full Code. Electronic Signatures: Jordan Saunders (DEFENCE INTELLIGENCE ANALYST-FAMILY PROTECTION SPECIALIST) (Signed 20-Nov-2018 15:14) Authored: Service, Subjective Data, Objective Data, Assessment and Plan, Signature/Cosignature/Attes tatCasimiro Ellington) (Signed 20-Nov-2018 18:34) Authored: Signature/Cosignature/Attes tation Last Updated: 20-Nov-2018 18:34 by Casimiro Yusuf) Normal [facility] Daily Progress Note-Palliati ve Careon 11-20-2018 Protein mass conc Service: Palliative Care Subjective Data: TRISH HUNT is a 73 year old Female who is Hospital Day # 9. Additional Information: Today the patient is awake in bed. Doing well on the current research director. Surgery is scheduled for the next few days. Objective Data: Objective Information: T PRBPSpO2 [id number]/7593% Date/Time11/20 16: 16: 16: 16: 16:17 Range(35.7C - 36.6C ) (73 - 83 ) (18 - 18 ) (119 - 152 )/ (74 - 83 ) (92% - 97% ) Pain reported at 11/20 14:06: 4 Physical Exam: Constitutional: Overweight pleasant woman, in [...] Psychological: appropriate Skin: anicteric, no bruising noted Recent Lab Results: Results: I have reviewed [...] is recommended. The study was interpreted at [facility]. MRI L Spine w/wo Contrast [Nov 15 [...] Brain w/wo Contrast [Nov 14 2018 2:03PM] Assessment and Plan: Assessment: Ms. Hunt is a 73 year old F with history of HTN, DM2 with morbid obesity, hypothyroidism, HLD, presenting as transfer from [facility] for back pain due to spinal lesions, highly suspicious for lung cancer metastases in setting of recent workup. Palliative care was consulted for pain management. Today the patient is awake in bed. Doing well on the research director overall and surgery is planned for the coming days. At this time we recommend continuing the current research director until post surgery as she will likely continue to need the pain coverage in the post op setting. #Pain in R flank, likely related to bony metastases, currently not well controlled and patient with sedation #Bony pain - continue dexamethasone 4mg twice a day for bony pain (8am/4pm dosing to minimize side effect profile) --> please ensure safety with neurosurgery given plans for OR soon - pamidronate 90mg once for bony pain #Further pain coverage for neoplasm related pain -continue hydromorphone research director at the current rate of 0.2mg q10 minutes, likely until post surgery as the patient is doing very well on the current dose. #Code status/living will - patient reportedly with living will, check with patient/family for copy for chart - patient expressed desire to be DNR/DNI, update in chart Thank you for allowing us to participate in the care of this patient. We will continue to follow. Please contact us for any questions via [employer] or pager [phone]. Signature/Cosignature/Attes tation: Comments/ Additional Findings Above d/w primary team. Thank you for inviting us to participate in the care of this patient. Please page with any questions. We will continue to follow. Time spent: 39 minutes with >50% spent in counseling/educating/suppor ting the patient/family as well as coordinating plan of care and medication regimen. Electronic Signatures: Willie Damico) (Signed 07-Apr-2019 11:39) Authored: Service, Subjective Data, Objective Data, Assessment and Plan, Signature/Cosignature/Attes tation Last Updated: 07-Apr-2019 11:39 by Willie Damico) [facility] Clinical Event Note-Charity vargas attending updatedon 11-19-2018 Clinical Event Note-Neurosurgery attending updated Event: Topic: Neurosurgery attending updated Details: I [...] neurologic intraoperative monitoring on 11/23/2018. Electronic Signatures: Fartun Tamayo) (Signed 19-Nov-2018 14:29) Authored: Event Last Updated: 19-Nov-2018 14:29 by Fartun Tamayo) Normal [facility] Clinical Event Note-Radiatio n Oncologyon 11-19-2018 Clinical Event Note-Radiation Oncology Event: Topic: Radiation Oncology Details: The patient [...] PGY-III Radiation Oncology Electronic Signatures: Alexandro Pérez (Resident)) (Signed 19-Nov-2018 12:09) Authored: Event Jose Jonas) (Signed 19-Nov-2018 16:57) Authored: Event Co-Signer: Event Last Updated: 19-Nov-2018 16:57 by Jose Jonas) Normal [facility] Daily Progress Note-Medicine on 11-19-2018 Protein mass conc Service: Medicine Subjective Data: TRISH HUNT is a 73 year old Female who is Hospital Day # 8. Objective Data: Objective Information: T PRBPSpO2 [id number]/5698% Date/Time11/19 7: 7: 7: 7: 7:55 Range(36.3C - 37.1C ) (72 - 98 ) (18 - 18 ) (116 - 144 )/ (56 - 78 ) (95% - 98% ) Highest temp of 37.1 C was recorded at 11/18 11:29 Pain reported at 11/19 9:30: 4 Pain reported at 11/19 8:24: 6 Medication: Medications: Continuous Medications ----- No continuous medications are active Scheduled Medications ----- 1. Acetaminophen: 975 mg Oral 2. Albuterol 2.5mg - Ipratropium 0.5 mg/ 3mL Neb Soln: 3 mL Inhalation Every 6 Hours 3. Dexamethasone: 4 mg Oral 4. Enoxaparin SubCutaneous: 40 mg SubCutaneous Every [...] IntraVenous Flush Every 12 Hours PRN Medications ----- 1. Albuterol 2.5mg - Ipratropium 0.5 mg/ [...] Cord Stimulator Implant who is transferred to [facility] 11/12/[address] [facility] after presenting with intractable progressive back pain with SOB and found on imaging to have a lung mass with adenopathy and suspected spinal metastasis for neurosurgical evaluation and further care. In Shared Visit with Dr. Oquendo Metastatic Lung CA Former smoker. Reported SOB and chest pain with deep breath at [place] ER presentation 11/11/18. A CT of the [...] Likely metastasis from lung CA. Presented to [facility] 11/11/18 with intractable progressive back pain [...] A CT Chest, Abdomen and Pelvis at [place] showed a suspected Pathologic fracture of the [...] given Decadron with request for transfer to [facility] for Neurosurgery evaluation. Neurosurgery consulted and did [...] supportive. -PT recommending SNF at this time Signature/Cosignature/Attes tation: Provider/Team Contact Info-Pager [phone] Attending Only - Shared Visit with Advanced [...] no tenderness or organomegaly appreciated. External urine coin machine collector attached, urine is dark clear. Neuro [...] read the report and discussed with the FAMILY PROTECTION SPECIALIST. PET CT (11/17) IMPRESSION: 1. Correlating with [...] reviewed the medications and discussed with the FAMILY PROTECTION SPECIALIST. Medical decision making: An elderly female with [...] Signatures: Rocky Oquendo) (Signed 19-Nov-2018 12:46) Authored: Signature/Cosignature/Attes tation Jordan Saunders (DEFENCE INTELLIGENCE ANALYST-[facility]) (Signed 19-Nov-2018 11:58) Authored: Service, Subjective Data, Objective Data, Assessment and Plan, Signature/Cosignature/Attes tation Last Updated: 19-Nov-2018 12:46 by Rocky Oquendo) Normal [facility] Daily Progress Note-Palliati ve Careon 11-19-2018 Protein mass conc Consult Type: subseq uent visit/care Service: Palliative Care Subjective Data: TRISH HUNT is a 73 year old Female who is Hospital Day # 8. Additional Information: No acute events overnight. Biopsy results returned from lymph node FNA showing lung adenocarcinoma. Today Ms. Hunt feels worse than yesterday. When asked about her pain in terms of quality and severity, she says simply, "it hurts." No relief from current pain regimen, and she cannot concentrate on things other than pain. Had several bowel movements yesterday which she describes as "an event". Received PO morphine 5mg q4h x5 since yesterday evening and 2 doses of PO morphine 3mg and one of dilaudid 0.2mg IV for total of 35 OME. Objective Data: Objective Information: T PRBPSpO2 [id number]/7696% Date/Time11/19 10: 11:: 11: 11:50 Range(36.3C - 37.2C ) (72 [...] no bruising noted Medication: Medications: Scheduled Medications ----- 1. Acetaminophen: 975 mg Oral 2. Albuterol 2.5mg - Ipratropium 0.5 mg/ 3mL Neb Soln: 3 mL Inhalation Every 6 Hours 3. Dexamethasone: 4 mg Oral 4. Enoxaparin SubCutaneous: 40 mg SubCutaneous Every [...] IntraVenous Flush Every 12 Hours PRN Medications ----- 1. Albuterol 2.5mg - Ipratropium 0.5 mg/ [...] HLD, presenting as transfer from [facility] for back pain due to spinal [...] yet fully established. - please start hydromorphone COIN MACHINE MECHANIC (0.2mg q10min dosing) - continue bowel regimen [...] Please contact us for any questions via [employer] or pager [phone]. Nessa Mercado Internal Medicine PGY-1 Signature/Cosignature/Attes tation: Attending AttestghazalaI saw and evaluated the patient. [...] for excess sedation); therefore, we are recommending COIN MACHINE MECHANIC as a tool for rapid dose finding as well as safe dose finding (given built in control that if patient gets sleepy she stops pushing the button). Will follow. Call with questions. [id number] Electronic Signatures: Nessa Mercado (Resident)) (Signed 19-Nov-2018 15:13) Authored: Service, Subjective Data, Objective Data, Assessment and Plan, Signature/Cosignature/Attes tation Annette Keller) (Signed 19-Nov-2018 16:04) Authored: Service, Signature/Cosignature/Attes tation Co-Signer: Subjective Data, Objective Data, Assessment and Plan, Signature/Cosignature/Attes tation Last Updated: 19-Nov-2018 16:04 by Annette Keller) Normal [facility] CBCon 11-18-2018 Erythrocyte distribution width Ratio (RBC) 13.2 % Normal 11.5 - 14.5 [facility] Comment on above: Performed By: #### C MP #### [facility] [id number] [place] [address] Hematocrit Volume Fraction (Bld) 41.0 % Normal 36.0 - 46.0 [facility] Comment on above: Performed By: #### C MP #### [facility] [address] [place] [address] Hemoglobin mass conc (Bld) 12.3 g/dL Normal 12.0 - 16.0 [facility] Comment on above: Performed By: #### C MP #### [facility] [address] [place] [address] MCHC mass conc (RBC) 30.0 g/dL Low 32.0 - 36.0 [facility] Comment on above: Performed By: #### C MP #### [facility] [address] [place] [address] MCV Entitic volume (RBC) 101 fL High 80 - 100 [facility] Comment on above: Performed By: #### C MP #### [facility] [address] [place] [address] Nucleated RBC/100 WBC Ratio (Bld) 0.0 /100 WBC Normal 0.0-0.0 [facility] Comment on above: Performed By: #### C MP #### [facility] [address] [place] [address] Platelets #/vol (Bld) 251 10*3/uL Normal 150 - 450 [facility] Comment on above: Performed By: #### C MP #### [facility] [address] [place] [address] RBC #/vol (Bld) 4.04 x10E12/L Normal 4.00 - 5.20 [facility] Comment on above: Performed By: #### C MP #### [facility] [address] [place] [address] WBC #/vol (Bld) 6.8 10*3/uL Normal 4.4 - 11.3 [facility] Comment on above: Performed By: #### C MP #### [facility] [address] [place] [address] Clinical Event Note-patholog yon 11-18-2018 Clinical Event Note-pathology Event: Topic: pathology Details: FNA of LN [...] Last Updated: 18-Nov-2018 17:25 by Matt Doan) [facility] Consult-Palliative Careon Consult-Palliative Care Service: Service: Palliative Care Consult: Consult requested by (Attending Name): Dr. Oquendo Reason: pain management History of Present Illness: Admission Reason: back pain, transferred from [place] for concern for spinal metastases HPI: Ms. Hunt is a 73 year old F presenting as transfer from [facility] after initially presenting there with subacute [...] asked how she felt today, patient replied "shitty". She states that she is in pain on her R side of her upper abdomen/back, "grabby" in nature, which feels "like a gallbladder attack". The pain goes around from her side [...] Home: Lives with of ~60 years in [place]/near [place], [place]. He has difficulty ambulating (he "should" use a walker). She assists him more than he assists her. Family: Had three children, two still alive. One son of pneumonia. Many grandchildren including Lakesha, college student, who was present in the room and has been present throughout hospital stay. Family all in [facility]. 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 Strength and meaning in life: God, Lakesha (granddaughter) give her life meaning; also enjoys crocheting Spirituality: God gives her strength; filling hauler weaving [place] visiting her frequently. Decision maker: is [...] lisinopril: Unknown Objective: Objective Information: T PRBPSpO2 [id number]/7897% Date/Time11/18 11: 11: 11: 11: 11:29 Range(36.1C [...] no bruising noted Medications: Medications: Continuous Medications ----- 1. Sodium Chloride 0.9% Infusion: 1000 mL IntraVenous Scheduled Medications ----- 1. Acetaminophen: 975 mg Oral 2. Albuterol 2.5mg - Ipratropium 0.5 mg/ [...] IntraVenous Flush Every 12 Hours PRN Medications ----- 1. Albuterol 2.5mg - Ipratropium 0.5 mg/ [...] is recommended. The study was interpreted at [facility]. MRI L Spine w/wo Contrast [Nov 15 [...] HLD, presenting as transfer from [facility] for back pain due to spinal [...] Please contact us for any questions via [employer] or pager [phone]. Nessa Mercado Internal Medicine PGY-1 Signature/Cosignature/Attes tation: Attending AttrobertI saw and evaluated the patient. I personally [...] Family/Social History and ROS, Allergies, Objective, Assessment/Recommendations, Signature/Cosignature/Attes tation Annette Keller) (Signed 18-Nov-2018 21:14) Authored: Assessment/Recommendations, Signature/Cosignature/Attes tation Co-Signer: Assessment/Recommendations, Signature/Cosignature/Attes tation Last Updated: 18-Nov-2018 21:14 by Annette Keller) Normal [facility] Consult-Radiation Oncologyon 11-18-2018 Consult-Radiation Oncology Service: Service: Radiation Oncology Consult: Consult requested [...] metastatic disease. The patient was transferred to [facility] on 11/12/2018 from [facility] after presenting on 11/11/2018 with intractable, progressive back pain x2-[address] C/A/P at [place] showed occlusion of the right middle bronchus [...] lisinopril: Unknown Objective: Objective Information: T PRBPSpO2 [id number]/7397% Date/Time11/18 19: 19: 19: 19: 19:46 Range(36.2C - 37.1C ) (79 - [...] lesions, no rashes Medications: Medications: Continuous Medications ----- No continuous medications are active Scheduled Medications ----- 1. Acetaminophen: 975 mg Oral 2. Albuterol 2.5mg - Ipratropium 0.5 mg/ [...] IntraVenous Flush Every 12 Hours PRN Medications ----- 1. Albuterol 2.5mg - Ipratropium 0.5 mg/ [...] is recommended. The study was interpreted at [facility]. MRI T Spine w/wo Contrast [Nov 15 [...] is recommended. The study was interpreted at [facility]. MRI L Spine w/wo Contrast [Nov 15 [...] durable local control. The patient lives near [place] and would prefer to have radiation therapy closer to home. If the patient undergoes surgery, she may be referred to [facility] for radiotherapy ~3-4 weeks after her [...] follow. Adriana Kumar MD PGY-2, Radiation Oncology [facility] Signature/Cosignature/Attes tation: Comments/ Additional Findings I saw and examed [...] History of Present Illness, Allergies, Objective, Assessment/Recommendations, Signature/Cosignature/Attes tation Jose Jonas) (Signed 19-Nov-2018 16:52) Authored: Review Family/Social History and ROS, Signature/Cosignature/Attes tation Co-Signer: Service, History of Present Illness, Allergies, Objective, Assessment/Recommendations, Signature/Cosignature/Attes tation Last Updated: 19-Nov-2018 16:52 by Jose Jonas) Normal [facility] Daily Progress Note-Medicine on 11-18-2018 Protein mass conc Service: Medicine Subjective Data: TRISH HUNT is a 73 year old Female who is Hospital Day # 7. Additional Information: Continues to complain of pain. Nursing concern for lethargy last evening. Did not eat or drink much yesterday. Objective Data: Objective Information: T PRBPSpO2 [id number]/7497% Date/Time11/18 7: 7: 7: 7: 7:28 Range(36.1C [...] intact, no lesions/rashes Medication: Medications: Continuous Medications ----- 1. Sodium Chloride 0.9% Infusion: 1000 mL IntraVenous Scheduled Medications ----- 1. Acetaminophen: 975 mg Oral 2. Albuterol 2.5mg - Ipratropium 0.5 mg/ [...] IntraVenous Flush Every 12 Hours PRN Medications ----- 1. Albuterol 2.5mg - Ipratropium 0.5 mg/ [...] Cord Stimulator Implant who is transferred to [facility] 11/12/[address] [facility] after presenting with intractable progressive back pain with SOB and found on imaging to have a lung mass with adenopathy and suspected spinal metastasis for neurosurgical evaluation and further care. In Shared Visit with Dr. Oquendo Metastatic Lung CA Former smoker. Reported SOB and chest pain with deep breath at [place] ER presentation 11/11/18. A CT of the [...] Likely metastasis from lung CA. Presented to [facility] 11/11/18 with intractable progressive back pain [...] A CT Chest, Abdomen and Pelvis at [place] showed a suspected Pathologic fracture of the [...] given Decadron with request for transfer to [facility] for Neurosurgery evaluation. Neurosurgery consulted and did [...] supportive. -PT recommending SNF at this time Signature/Cosignature/Attes tation: Attending Only - Shared Visit with Advanced [...] conversation. When asked about pain she said: "It hurts!" Physical examination: Per the WHO definition of [...] read the report and discussed with the FAMILY PROTECTION SPECIALIST. PET CT (11/17) IMPRESSION: 1. Correlating with [...] reviewed the medications and discussed with the FAMILY PROTECTION SPECIALIST. Medical decision making: An elderly female with [...] Signatures: Rocky Oquendo) (Signed 18-Nov-2018 15:43) Authored: Signature/Cosignature/Attes Dominic Suarez (DEFENCE INTELLIGENCE ANALYST-FAMILY PROTECTION SPECIALIST) (Signed 18-Nov-2018 17:59) Authored: Service, Subjective Data, Objective Data, Assessment and Plan Last Updated: 18-Nov-2018 17:59 by Dominic Preciado (DEFENCE INTELLIGENCE ANALYST-FAMILY PROTECTION SPECIALIST) Normal [facility] Daily Progress Note-Charity weldon 11-18-2018 Protein mass conc Service: Neurosurger y Subjective Data: TRISH HUNT is a 73 year old Female who is Hospital Day # 7. Objective Data: Objective Information: T PRBPSpO2 [id number]/7897% Date/Time11/18 11: 11: 11: 11: 11:29 Range(36.2C [...] biopsy -pleural fluid cytology -surgical risk stratification Signature/Cosignature/Attes tation: Attending AttestationI reviewed the resident/fellows documentation and discussed the patient with the resident/fellow. I agree with the resident/fellows medical decision making as documented in the residents note. Electronic Signatures: Fartun Tamayo) (Signed 19-Nov-2018 14:01) Authored: Signature/Cosignature/Attes tation Co-Signer: Service, Subjective Data, Objective Data, Assessment and Plan, Signature/Cosignature/Attes tation Og Wylie (Resident)) (Signed 18-Nov-2018 19:41) Authored: Service, Subjective Data, Objective Data, Assessment and Plan, Signature/Cosignature/Attes tation Last Updated: 19-Nov-2018 14:01 by Fartun Tamayo) Normal [facility] Daily Progress Note-Pulmonol ogyon 11-18-2018 Daily Progress Note-Pulmonology Service: Pulmonology Subjective Data: TRISH HUNT is a 73 year old Female who is Hospital Day # 7. Additional Information: Ms. Hunt complained of pain today. She appeared confused and had rattling secretion noise during the interview. Objective Data: Objective Information: T PRBPSpO2 [id number]/7897% Date/Time11/18 11: 11: 11: 11: 11:29 Range(36.2C [...] dry no rash Medication: Medications: Continuous Medications ----- No continuous medications are active Scheduled Medications ----- 1. Acetaminophen: 975 mg Oral 2. Albuterol 2.5mg - Ipratropium 0.5 mg/ [...] IntraVenous Flush Every 12 Hours PRN Medications ----- 1. Albuterol 2.5mg - Ipratropium 0.5 mg/ [...] will sign off. Please contact us at #[phone] for any questions or change in clinical status Signature/Cosignature/Attes tation: Attending AttestationI reviewed the resident/fellows documentation and discussed the patient with the resident/fellow. I agree with the resident/fellows medical decision making as documented in the residents note. Electronic Signatures: Israel Mensah (Fellow)) (Signed 18-Nov-2018 19:58) Authored: Service, Subjective Data, Objective Data, Assessment and Plan, Signature/Cosignature/Attes tation Jane Lewis) (Signed 04-Dec-2018 18:31) Authored: Signature/Cosignature/Attes tation Co-Signer: Service, Subjective Data, Objective Data, Assessment and Plan, Signature/Cosignature/Attes tation Last Updated: 04-Dec-2018 18:31 by Jane Lewis) [facility] Nutrition Therapy-Assessment on 11-18-2018 Nutrition Therapy-Assessment Assessment Subjective/Objective: Note Type: Assessment Note Authored by: Registered Dietitian Office Machinery Or Equipment Installer Pager Number: [phone] Nutrition Note: The patient is 73 year [...] 1,000 mL Run at: 100 mL/hr IntraVenous , 17-Nov-2018 Nutrition Orders: Diet, 2 grams Sodium, [...] present at this time Estimated Needs: kcals/day: 1817-1653 gms protein/day: ~85 mL fluid/day: 1 ml/kcal [...] desired Other Interventions: Pt declined having food counter attendant visit when offered by RDN, pt meal [...] 18-Nov-2018 15:05 by Michelle Robbins (ERASTO, NATHAN) Normal [facility] RENAL FUNCTION PANELon 11-18 Albumin mass conc 3.2 g/dL Low 3.4 - 5.0 [facility] Comment on above: Performed By: #### C MP #### [facility] [address] [place] [address] Anion gap molar conc 10 mmol/L Normal 10 - 20 [facility] Comment on above: Performed By: #### C MP #### [facility] [address] [place] [address] Calcium mass conc 8.8 mg/dL Normal 8.6 - 10.6 [facility] Comment on above: Performed By: #### C MP #### [facility] [facility] [address] [place] [address] Chloride molar conc 106 mmol/L Normal 98 - 107 [facility] Comment on above: Performed By: #### C MP #### [facility] [address] [place] [address] Creatinine mass conc 0.81 mg/dL Normal 0.50 - 1.05 [facility] Comment on above: Performed By: #### C MP #### [facility] [address] [place] [address] GFR- AM. >60 Normal >60 [facility] Comment on above: Result Comment: CALC ULATIONS OF ESTIMATED GFR ARE PERFORMED USING THE MDRD STUDY EQUATION FOR THE IDMS-TRACEABLE CREATININE METHODS. CLIN CHEM 2007;53:766-72 Performed By: #### C MP #### [facility] [address] [place] [address] GFR-NON AM. >60 Normal >60 [facility] Comment on above: Performed By: #### C MP #### [facility] [address] [place] [address] Glucose mass conc 93 mg/dL Normal 74 - 99 [facility] Comment on above: Performed By: #### C MP #### [facility] [address] [place] [address] HCO3 molar conc (Bld) 30 mmol/L Normal 21 - 32 [facility] Comment on above: Performed By: #### C MP #### [facility] [address] [place] [address] Phosphate mass conc 3.2 mg/dL Normal 2.5 - 4.9 [facility] Comment on above: Result Comment: The performance characteristics of phosphorus testing in heparinized plasma have been validated by the individual laboratory site where testing is performed. Testing on heparinized plasma is not approved by the FDA; however, such approval is not necessary. Performed By: #### C MP #### [facility] [address] [place] [address] Potassium molar conc 3.9 mmol/L Normal 3.5 - 5.3 [facility] Comment on above: Performed By: #### C MP #### [facility] [address] [place] [address] Sodium molar conc 142 mmol/L Normal 136 - 145 [facility] Comment on above: Performed By: #### C MP #### [facility] [address] [place] [address] Urea nitrogen mass conc 18 mg/dL Normal 6 - 23 [facility] Comment on above: Performed By: #### C MP #### [facility] [address] [place] [address] CBCon 11-17-2018 Erythrocyte distribution width Ratio (RBC) 12.9 % Normal 11.5 - 14.5 [facility] Comment on above: Performed By: #### L DH #### [facility] [address] [place] [address] Hematocrit Volume Fraction (Bld) 38.7 % Normal 36.0 - 46.0 [facility] Comment on above: Performed By: #### L DH #### [facility] [address] [place] [address] Hemoglobin mass conc (Bld) 12.0 g/dL Normal 12.0 - 16.0 [facility] Comment on above: Performed By: #### L DH #### [facility] [address] [place] [address] MCHC mass conc (RBC) 31.0 g/dL Low 32.0 - 36.0 [facility] Comment on above: Performed By: #### L DH #### [facility] [address] [place] [address] MCV Entitic volume (RBC) 98 fL Normal 80 - 100 [facility] Comment on above: Performed By: #### L DH #### [facility] [address] [place] [address] Nucleated RBC/100 WBC Ratio (Bld) 0.0 /100 WBC Normal 0.0-0.0 [facility] Comment on above: Performed By: #### L DH #### [facility] [address] [place] [address] Platelets #/vol (Bld) 260 10*3/uL Normal 150 - 450 [facility] Comment on above: Performed By: #### L DH #### [facility] [address] [place] [address] RBC #/vol (Bld) 3.93 x10E12/L Low 4.00 - 5.20 [facility] Comment on above: Performed By: #### L DH #### [facility] [address] [place] [address] WBC #/vol (Bld) 7.6 10*3/uL Normal 4.4 - 11.3 [facility] Comment on above: Performed By: #### L DH #### [facility] [address] [place] [address] Daily Progress Note-Medicine on 11-17-2018 Protein mass conc Service: Medicine Subjective Data: TRISH HUNT is a 73 year old Female who is Hospital Day # 6. Additional Information: Complaining of back and leg pain Objective Data: Objective Information: T PRBPSpO2 [id number]/7898% Date/Time11/17 12: 12: 12: 12: 12:28 Range(36.2C - 36.7C ) (80 - 106 ) (18 - 20 ) (116 - 172 )/ (53 - 80 ) (96% - 98% ) As of 16-Nov-2018 23:24:00, patient is on 2 L/min of oxygen via nasal cannula. Pain reported at 2 10:12: 0 Pain reported at 1/2 12:15: 10 Physical Exam: Constitutional: laying in [...] intact, no lesions/rashes Medication: Medications: Continuous Medications ----- No continuous medications are active Scheduled Medications ----- 1. Acetaminophen: 975 mg Oral 2. Albuterol 2.5 mg/ 3 mL Nebulizer [...] IntraVenous Flush Every 12 Hours PRN Medications ----- 1. Albuterol 2.5 mg/ 3 mL Nebulizer [...] Cord Stimulator Implant who is transferred to [facility] 11/12/[address] [facility] after presenting with intractable progressive back pain with SOB and found on imaging to have a lung mass with adenopathy and suspected spinal metastasis for neurosurgical evaluation and further care. In Shared Visit with Dr. Oquendo Metastatic Lung CA Former smoker. Reported SOB and chest pain with deep breath at [place] [facility] presentation 11/11/18. A CT of the [...] mediastinal and bilateral hilar lymph nodes. -Follow [place] Pleural C&S and Cytology -Follow bronchoscopy / [...] Likely metastasis from lung CA. Presented to [facility] 11/11/18 with intractable progressive back pain [...] A CT Chest, Abdomen and Pelvis at [place] showed a suspected Pathologic fracture of the [...] given Decadron with request for transfer to [facility] for Neurosurgery evaluation. Neurosurgery consulted and did [...] 1.2 post contrast with baseline 1.0 at [place]. Cr 0.9. -Monitor RFP Impaired Fasting Glucose [...] at bedside and supportive. -PT eval pending Signature/Cosignature/Attes tation: Attending Only - Shared Visit with Advanced [...] read the report and discussed with the FAMILY PROTECTION SPECIALIST. PET CT (11/17) IMPRESSION: 1. Correlating with [...] reviewed the medications and discussed with the FAMILY PROTECTION SPECIALIST. Medical decision making: an elderly female with [...] Signatures: Rocky Oquendo) (Signed 17-Nov-2018 17:25) Authored: Signature/Cosignature/Attes Dominic Suarez (DEFENCE INTELLIGENCE ANALYST-FAMILY PROTECTION SPECIALIST) (Signed 17-Nov-2018 18:22) Authored: Service, Subjective Data, Objective Data, Assessment and Plan Last Updated: 17-Nov-2018 18:22 by Dominic Preciado (DEFENCE INTELLIGENCE ANALYST-FAMILY PROTECTION SPECIALIST) Normal [facility] Daily Progress Note-Neurosur ravindrayon 11-17-2018 Protein mass conc Service: Neurosurger y Subjective Data: TRISH HUNT is a 73 year old Female who is Hospital Day # 5. Objective Data: Objective Information: T PRBPSpO2 [id number]/6598% Date/Time11/16 19: 19: 19: 19: 19:39 Range(36.1C [...] biopsy -pleural fluid cytology -surgical risk stratification Signature/Cosignature/Attes tation: Attending AttestationI reviewed the resident/fellows documentation and discussed the patient with the resident/fellow. I agree with the resident/fellows medical decision making as documented in the residents note. Electronic Signatures: Fartun Tamayo) (Signed 18-Nov-2018 20:20) Authored: Signature/Cosignature/Attes tation Co-Signer: Service, Subjective Data, Objective Data, Assessment and Plan, Signature/Cosignature/Attes tation Og Wylie (Resident)) (Signed 16-Nov-2018 21:28) Authored: Service, Subjective Data, Objective Data, Assessment and Plan, Signature/Cosignature/Attes tation Last Updated: 18-Nov-2018 20:20 by Fartun Tamayo) Normal [facility] GLUCOSE-POCTon 11-17-2018 Glucose mass conc 96 mg/dL Normal 74 - 99 [facility] Comment on above: Performed By: #### C #### [facility] [address] [place] [address] PET/CT LUNG CA STAGINGon PET/CT LUNG CA STAGING Patient Name: TRISH HUNT STUDY: PET/CT LUNG CA STAGING; 11/17/2018 11:13 am INDICATION: Signs/Symptoms: Right bronchial obstruction with hilar lesion and presumed spinal mets. T10 vertebral body lesion with extension to the posterior elements. Right central middle lobe mass with lymphadenopathy. COMPARISON: Spine MRI on 11/15/[address] on 11/14/2018. ACCESSION NUMBER(S): [id number] ORDERING CLINICIAN: NESSA CARLOS TECHNIQUE: DIVISION OF [...] CODING: Initial Treatment Strategy (PI) CALIBRATION: Dose [id number] Interval (mins): 67 min Mediastinal bloodpool SUV [...] as stated. This study was interpreted at [facility]. Electronically signed by: MARLON MIRANDA MD Normal [facility] RENAL FUNCTION PANELon 11-17 Albumin mass conc 3.3 g/dL Low 3.4 - 5.0 [facility] Comment on above: Performed By: #### L DH #### [facility] [address] [place] [address] Anion gap molar conc 10 mmol/L Normal 10 - 20 [facility] Comment on above: Performed By: #### L DH #### [facility] [address] [place] [address] Calcium mass conc 9.0 mg/dL Normal 8.6 - 10.6 [facility] Comment on above: Performed By: #### L DH #### [place] [address] [place] [address] Chloride molar conc 105 mmol/L Normal 98 - 107 [facility] Comment on above: Performed By: #### L DH #### [facility] [address] [place] [address] Creatinine mass conc 0.94 mg/dL Normal 0.50 - 1.05 [facility] Comment on above: Performed By: #### L DH #### [facility] [address] [place] [address] GFR- AM. 70 mL/min/1.73m2 Normal >60 [facility] Comment on above: Result Comment: CALC ULATIONS OF ESTIMATED GFR ARE PERFORMED USING THE MDRD STUDY EQUATION FOR THE IDMS-TRACEABLE CREATININE METHODS. CLIN CHEM 2007;53:766-72 Performed By: #### L DH #### [facility] [address] [place] [address] GFR-NON AM. 58 mL/min/1.73m2 Abnormal >60 [facility] Comment on above: Performed By: #### L DH #### [facility] [address] [place] [address] Glucose mass conc 99 mg/dL Normal 74 - 99 [facility] Comment on above: Performed By: #### L DH #### [facility] [address] [place] [address] HCO3 molar conc (Bld) 30 mmol/L Normal 21 - 32 [facility] Comment on above: Performed By: #### L DH #### [facility] [address] [place] [address] Phosphate mass conc 3.9 mg/dL Normal 2.5 - 4.9 [facility] Comment on above: Result Comment: The performance characteristics of phosphorus testing in heparinized plasma have been validated by the individual laboratory site where testing is performed. Testing on heparinized plasma is not approved by the FDA; however, such approval is not necessary. Performed By: #### L DH #### [facility] [address] [place] [address] Potassium molar conc 3.8 mmol/L Normal 3.5 - 5.3 [facility] Comment on above: Performed By: #### L DH #### [facility] [address] [place] [address] Sodium molar conc 141 mmol/L Normal 136 - 145 [facility] Comment on above: Performed By: #### L DH #### [facility] [address] [place] [address] Urea nitrogen mass conc 22 mg/dL Normal 6 - 23 [facility] Comment on above: Performed By: #### L DH #### [facility] [address] [place] [address] CBCon 11-16-2018 Erythrocyte distribution width Ratio (RBC) 12.8 % Normal 11.5 - 14.5 [facility] Comment on above: Performed By: #### L DH #### [facility] [address] [place] [address] Hematocrit Volume Fraction (Bld) 40.4 % Normal 36.0 - 46.0 [facility] Comment on above: Performed By: #### L DH #### [facility] [address] [place], [place] Hemoglobin mass conc (Bld) 12.5 g/dL Normal 12.0 - 16.0 [facility] Comment on above: Performed By: #### L DH #### [facility] [address] [place], [place] MCHC mass conc (RBC) 30.9 g/dL Low 32.0 - 36.0 [facility] Comment on above: Performed By: #### L DH #### [facility] [address] [place], [place] MCV Entitic volume (RBC) 97 fL Normal 80 - 100 [facility] Comment on above: Performed By: #### L DH #### [facility] [address] [place], [place] Nucleated RBC/100 WBC Ratio (Bld) 0.0 /100 WBC Normal 0.0-0.0 [facility] Comment on above: Performed By: #### L DH #### [facility] [address] [place], [place] Platelets #/vol (Bld) 252 10*3/uL Normal 150 - 450 [facility] Comment on above: Performed By: #### L DH #### [facility] [address] [place], [place] RBC #/vol (Bld) 4.18 x10E12/L Normal 4.00 - 5.20 [facility] Comment on above: Performed By: #### L DH #### [facility] [address] [place] [address] WBC #/vol (Bld) 9.1 10*3/uL Normal 4.4 - 11.3 [facility] Comment on above: Performed By: #### L DH #### [facility] [address] [place], [place] Erythrocyte distribution width Ratio (RBC) Canceled Normal [facility] Comment on above: Order Comment: TEST CBC WAS CANCELLED, 11/16/2018 08:25 SPECIMEN CLOTTED.PLEASE RESUBMIT. Performed By: #### C OAGS #### [facility] [address] [place] [address] Hematocrit Volume Fraction (Bld) Canceled Normal [facility] Comment on above: Order Comment: TEST CBC WAS CANCELLED, 11/16/2018 08:25 SPECIMEN CLOTTED.PLEASE RESUBMIT. Performed By: #### C OAGS #### [facility] [address] [place] [address] Hemoglobin mass conc (Bld) Canceled Normal [facility] Comment on above: Order Comment: TEST CBC WAS CANCELLED, 11/16/2018 08:25 SPECIMEN CLOTTED.PLEASE RESUBMIT. Performed By: #### C OAGS #### [facility] [address] [place] [address] MCHC mass conc (RBC) Canceled Normal [facility] Comment on above: Order Comment: TEST CBC WAS CANCELLED, 11/16/2018 08:25 SPECIMEN CLOTTED.PLEASE RESUBMIT. Performed By: #### C OAGS #### [facility] [address] [place] [address] MCV Entitic volume (RBC) Canceled Normal [facility] Comment on above: Order Comment: TEST CBC WAS CANCELLED, 11/16/2018 08:25 SPECIMEN CLOTTED.PLEASE RESUBMIT. Performed By: #### C OAGS #### [facility] [address] [place] [address] Nucleated RBC/100 WBC Ratio (Bld) Canceled Normal [facility] Comment on above: Order Comment: TEST CBC WAS CANCELLED, 11/16/2018 08:25 SPECIMEN CLOTTED.PLEASE RESUBMIT. Performed By: #### C OAGS #### [facility] [address] [place] [address] Platelets #/vol (Bld) Canceled Normal [facility] Comment on above: Order Comment: TEST CBC WAS CANCELLED, 11/16/2018 08:25 SPECIMEN CLOTTED.PLEASE RESUBMIT. Performed By: #### C OAGS #### [facility] [address] [place] [address] RBC #/vol (Bld) Canceled Normal [facility] Comment on above: Order Comment: TEST CBC WAS CANCELLED, 11/16/2018 08:25 SPECIMEN CLOTTED.PLEASE RESUBMIT. Performed By: #### C OAGS #### [facility] [address] [place] [address] WBC #/vol (Bld) Canceled Normal [facility] Comment on above: Order Comment: TEST CBC WAS CANCELLED, 11/16/2018 08:25 SPECIMEN CLOTTED.PLEASE RESUBMIT. Performed By: #### C OAGS #### [facility] [address] [place] [address] COMPREHENSIVE PANELon 2018 Albumin mass conc 3.5 g/dL Normal 3.4 - 5.0 [facility] Comment on above: Performed By: #### L DH #### [facility] [address] [place] [address] ALP enzyme act/vol 37 U/L Normal 33 - 136 [facility] Comment on above: Performed By: #### L DH #### [facility] [address] [place] [address] ALT enzyme act/vol 14 U/L Normal 7 - 45 [facility] Comment on above: Result Comment: Judi ents treated with Sulfasalazine may generate falsely decreased results for ALT. Performed By: #### L DH #### [facility] [address] [place] [address] Anion gap molar conc 13 mmol/L Normal 10 - 20 [facility] Comment on above: Performed By: #### L DH #### [facility] [address] [place] [address] AST enzyme act/vol 17 U/L Normal 9 - 39 [facility] Comment on above: Performed By: #### L DH #### [facility] [address] [place] [address] Bilirubin mass conc 0.6 mg/dL Normal 0.0 - 1.2 [facility] Comment on above: Performed By: #### L DH #### [facility] [address] [place] [address] Calcium mass conc 8.9 mg/dL Normal 8.6 - 10.6 [facility] Comment on above: Performed By: #### L DH #### [facility] [address] [place] [address] Chloride molar conc 104 mmol/L Normal 98 - 107 [facility] Comment on above: Performed By: #### L DH #### [facility] [address] [place] [address] Creatinine mass conc 0.87 mg/dL Normal 0.50 - 1.05 [facility] Comment on above: Performed By: #### L DH #### [facility] [address] [place] [address] GFR- AM. >60 Normal >60 [facility] Comment on above: Result Comment: CALC ULATIONS OF ESTIMATED GFR ARE PERFORMED USING THE MDRD STUDY EQUATION FOR THE IDMS-TRACEABLE CREATININE METHODS. CLIN CHEM 2007;53:766-72 Performed By: #### L DH #### [facility] [address] [place] [address] GFR-NON AM. >60 Normal >60 [facility] Comment on above: Performed By: #### L DH #### [facility] [address] [place] [address] Glucose mass conc 140 mg/dL High 74 - 99 [facility] Comment on above: Performed By: #### L DH #### [facility] [address] [place] [address] HCO3 molar conc (Bld) 27 mmol/L Normal 21 - 32 [facility] Comment on above: Performed By: #### L DH #### [facility] [address] [place] [address] Potassium molar conc 3.9 mmol/L Normal 3.5 - 5.3 [facility] Comment on above: Performed By: #### L DH #### [facility] [address] [place] [address] Protein mass conc 6.1 g/dL Low 6.4 - 8.2 [facility] Comment on above: Performed By: #### L DH #### [facility] [address] [place] [address] Sodium molar conc 140 mmol/L Normal 136 - 145 [facility] Comment on above: Performed By: #### L DH #### [facility] [address] [place] [address] Urea nitrogen mass conc 22 mg/dL Normal 6 - 23 [facility] Comment on above: Performed By: #### L DH #### [facility] [address] [place] [address] Albumin mass conc Canceled Normal [facility] Comment on above: Order Comment: TEST COMPREHENSIVE PANEL WAS CANCELLED, 11/16/2018 09:12 CONTAMINATION. Performed By: #### L DH #### [facility] [address] [place] [address] ALP enzyme act/vol Canceled Normal [facility] Comment on above: Order Comment: TEST COMPREHENSIVE PANEL WAS CANCELLED, 11/16/2018 09:12 CONTAMINATION. Performed By: #### L DH #### [facility] [address] [place] [address] ALT enzyme act/vol Canceled Normal [facility] Comment on above: Order Comment: TEST COMPREHENSIVE PANEL WAS CANCELLED, 11/16/2018 09:12 CONTAMINATION. Result Comment: Judi ents treated with Sulfasalazine may generate falsely decreased results for ALT. Performed By: #### L DH #### [facility] [address] [place] [address] Anion gap molar conc Canceled Normal [facility] Comment on above: Order Comment: TEST COMPREHENSIVE PANEL WAS CANCELLED, 11/16/2018 09:12 CONTAMINATION. Performed By: #### L DH #### [facility] [address] [place] [address] AST enzyme act/vol Canceled Normal [facility] Comment on above: Order Comment: TEST COMPREHENSIVE PANEL WAS CANCELLED, 11/16/2018 09:12 CONTAMINATION. Performed By: #### L DH #### [facility] [address] [place] [address] Bilirubin mass conc Canceled Normal [facility] Comment on above: Order Comment: TEST COMPREHENSIVE PANEL WAS CANCELLED, 11/16/2018 09:12 CONTAMINATION. Performed By: #### L DH #### [facility] [address] [place] [address] Calcium mass conc Canceled Normal [facility] Comment on above: Order Comment: TEST COMPREHENSIVE PANEL WAS CANCELLED, 11/16/2018 09:12 CONTAMINATION. Performed By: #### L DH #### [facility] [address] [place] [address] Chloride molar conc Canceled Normal [facility] Comment on above: Order Comment: TEST COMPREHENSIVE PANEL WAS CANCELLED, 11/16/2018 09:12 CONTAMINATION. Performed By: #### L DH #### [place] [address] [place] [address] Creatinine mass conc Canceled Normal [facility] Comment on above: Order Comment: TEST COMPREHENSIVE PANEL WAS CANCELLED, 11/16/2018 09:12 CONTAMINATION. Performed By: #### L DH #### [facility] [address] [place] [address] GFR- AM. Canceled Normal [facility] Comment on above: Order Comment: TEST COMPREHENSIVE PANEL WAS CANCELLED, 11/16/2018 09:12 CONTAMINATION. Result Comment: CALC ULATIONS OF ESTIMATED GFR ARE PERFORMED USING THE MDRD STUDY EQUATION FOR THE IDMS-TRACEABLE CREATININE METHODS. CLIN CHEM 2007;53:766-72 Performed By: #### L DH #### [facility] [address] [place] [address] GFR-NON AM. Canceled Normal [facility] Comment on above: Order Comment: TEST COMPREHENSIVE PANEL WAS CANCELLED, 11/16/2018 09:12 CONTAMINATION. Performed By: #### L DH #### [facility] [address] [place] [address] Glucose mass conc Canceled Normal [facility] Comment on above: Order Comment: TEST COMPREHENSIVE PANEL WAS CANCELLED, 11/16/2018 09:12 CONTAMINATION. Performed By: #### L DH #### [facility] [address] [place] [address] HCO3 molar conc (Bld) Canceled Normal [facility] Comment on above: Order Comment: TEST COMPREHENSIVE PANEL WAS CANCELLED, 11/16/2018 09:12 CONTAMINATION. Performed By: #### L DH #### [facility] [address] [place] [address] Potassium molar conc Canceled Normal [facility] Comment on above: Order Comment: TEST COMPREHENSIVE PANEL WAS CANCELLED, 11/16/2018 09:12 CONTAMINATION. Performed By: #### L DH #### [facility] [address] [place] [address] Protein mass conc Canceled Normal [facility] Comment on above: Order Comment: TEST COMPREHENSIVE PANEL WAS CANCELLED, 11/16/2018 09:12 CONTAMINATION. Performed By: #### L DH #### [facility] [address] [place] [address] Sodium molar conc Canceled Normal [facility] Comment on above: Order Comment: TEST COMPREHENSIVE PANEL WAS CANCELLED, 11/16/2018 09:12 CONTAMINATION. Performed By: #### L DH #### [facility] [address] [place] [address] Urea nitrogen mass conc Canceled Normal [facility] Comment on above: Order Comment: TEST COMPREHENSIVE PANEL WAS CANCELLED, 11/16/2018 09:12 CONTAMINATION. Performed By: #### L DH #### [facility] [address] [place] [address] Consult-Oncologyon 9 Consult-Oncology Service: Service: Oncology Consult: Consult requested by (Attending Name): Dr. Yusuf Reason: lung mass, with suspected bone mets History of Present Illness: Admission Reason: t10 lesion on CT HPI: 73 year old woman with HTN, hypothyroidism, DM presenting to [facility] 11/11 for 2 weeks of intractable [...] lisinopril: Unknown Objective: Objective Information: T PRBPSpO2 Value36.65042326/7298% Date/Time11/16 12: 12: 12: 12: 12:21 Range(36.1C [...] behavior Skin: dry Medications: Medications: Continuous Medications ----- 1. Sodium Chloride 0.9% Infusion: 1000 mL IntraVenous Scheduled Medications ----- 1. Acetaminophen: 975 mg Oral 2. Albuterol 2.5 mg/ 3 mL Nebulizer [...] IntraVenous Flush Every 12 Hours PRN Medications ----- 1. Albuterol 2.5 mg/ 3 mL Nebulizer [...] laboratory results: Complete Blood Count Trending View [id number] 11:32:00 15-Nov-2018 05:35:00 White Blood Cell Count9.1 7.2 Nucleated Erythrocyte Count0.0 0.0 Red Blood Cell Count4.18 3.98 L HGB12.5 12.3 HCT40.4 40.7 MCV97 102 H MCHC30.9 L 30.2 L IIF018 255 RDW-CV12.8 13.2 Comprehensive Metabolic Panel 16-Nov-2018 [...] Reference Range: STRAW,YELLOW Appearance, Urine CLEAR Specific Clover, Urine 1.017 pH, Urine 6.0 Protein, Urine [...] is recommended. The study was interpreted at [facility]. MRI Cervical w/wo Contrast [Nov 15 2018 [...] is recommended. The study was interpreted at [facility]. MRI T Spine w/wo Contrast [Nov 15 [...] is recommended. The study was interpreted at [facility]. MRI L Spine w/wo Contrast [Nov 15 [...] woman with HTN, hypothyroidism, DM presenting to [facility] 11/11 for 2 weeks of intractable back [...] if in fact NSCLC. please place physician transportation specialist appointment request for medical oncology prior to discharge (pt lives in [place], unlikely to follow up here) Please page [phone] with additional questions Signature/Cosignature/Attes tation: Attending AttrobertI saw and evaluated the patient. I personally [...] us with any issues. Matt Doan MD Senior Geologist in Medicine [facility] [employer] /Cutaneous Malignancies [facility] / [facility] Office [phone] / [phone] Patient line [phone] Electronic Signatures: Alberto Soares (Fellow)) (Signed 16-Nov-2018 13:51) Authored: Service, History of Present Illness, Review Family/Social History and ROS, Allergies, Objective, Assessment/Recommendations, Signature/Cosignature/Attes tation Matt Doan) (Signed 16-Nov-2018 20:39) Authored: Signature/Cosignature/Attes tation Co-Signer: Service, History of Present Illness, Review Family/Social History and ROS, Allergies, Objective, Assessment/Recommendations, Signature/Cosignature/Attes tation Last Updated: 16-Nov-2018 20:39 by Matt Doan) Normal [facility] Daily Progress Note-Medicine on 11-16-2018 Protein mass conc Service: Medicine Subjective Data: TRISH HUNT is a 73 year old Female who is Hospital Day # 5. Oh, the pain is still here on my side. I can't go to the bathroom in the bed.". Overnight Events: Patient had an uneventful night. Additional Information: Denies further nausea and vomiting. [facility] states she was comfortable through night [...] Cholecystectomy - L4-L5 Decompression 1999 T PRBPSpO2 Value36.44709036/7197% Date/Time11/16 14: 14: 14: 14: 14:43 Range(36.1C [...] lesions, no rashes Medication: Medications: Scheduled Medications ----- 1. Acetaminophen: 975 mg Oral 2. Albuterol 2.5 mg/ 3 mL Nebulizer [...] IntraVenous Flush Every 12 Hours PRN Medications ----- 1. Albuterol 2.5 mg/ 3 mL Nebulizer [...] laboratory results: Complete Blood Count Trending View [id number] 11:32:00 15-Nov-2018 05:35:00 White Blood Cell Count9.1 7.2 Nucleated Erythrocyte Count0.0 0.0 Red Blood Cell Count4.18 3.98 L HGB12.5 12.3 HCT40.4 40.7 MCV97 102 H MCHC30.9 L 30.2 L IQB631 255 RDW-CV12.8 13.2 Comprehensive Metabolic Panel 16-Nov-2018 [...] Cord Stimulator Implant who is transferred to [facility] 11/12/[address] [facility] after presenting with intractable progressive back pain with SOB and found on imaging to have a lung mass with adenopathy and suspected spinal metastasis for neurosurgical evaluation and further care. . PLAN: In Shared Visit with Dr. Casimiro Yusuf 1) METASTATIC LUNG MALIGNANCY: Former smoker. Reported SOB and chest pain with deep breath at [place] [facility] presentation 11/11/18. A CT of the [...] origin (based on prelim cytology). 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 Presented to [facility] 11/11/18 with intractable progressive back pain [...] A CT Chest, Abdomen and Pelvis at [place] showed a suspected Pathologic fracture of the [...] given Decadron with request for transfer to [facility] for Neurosurgery evaluation. Neurosurgery consulted and did [...] 1.2 post contrast with baseline 1.0 at [place].. Creatinine 0.9 today - resolved - discontinue [...] PT evaluation. Family at bedside and supportive ----- PCP: Dr. Emil Braswell [phone] Urology: Dr. Neo Herrera Pharmacy: [facility] [place] ([place]) [phone] DME: Nebulizer Insurer: [employer] Medicare Family: / POA Healthcare - Kin Hunt [phone] Dtr. / 1st Alt. POA - Annita Sin [phone] / [phone] Dtr. / 2nd Alt. POA - Dionne Wilkes [phone] Signature/Cosignature/Attes tation: Provider/Team Contact Info-Pager Miriam Carlos [facility] # [phone] Attending Only - Shared Visit with Advanced Practice ProviderThis is a shared visit. I have reviewed the Advanced Practice Providers encounter note, approve the Advanced Practice Providers documentation, and provide the following additional information from my personal encounter. Comments/ Additional Findings Seen with the CHIP TUNER. Upset about her overactive bladder, frequent urination. [...] morphine tonight. PT/OT Electronic Signatures: Nessa Carlos (DEFENCE INTELLIGENCE ANALYST-FAMILY PROTECTION SPECIALIST) (Signed 17-Nov-2018 01:36) Authored: Service, Subjective Data, Objective Data, Assessment and Plan, Signature/Cosignature/Attes tation Casimiro Yusuf) (Signed 16-Nov-2018 18:00) Authored: Signature/Cosignature/Attes tation Last Updated: 17-Nov-2018 01:36 by Nessa Carlos (DEFENCE INTELLIGENCE ANALYST-FAMILY PROTECTION SPECIALIST) [facility] Daily Progress Note-Charity ravindramaria isabel 11-16-2018 Protein mass conc Service: Neurosurger y Subjective Data: TRISH HUNT is a 73 year old Female who is Hospital Day # 4. Objective Data: Objective Information: T PRBPSpO2 Value36.77616683/6796% Date/Time11/15 7: 7: 7: 7: 7:25 Range(36.6C [...] MD Resident Physician Department of Neurological Surgery [facility] [email or web address] Neurosurgery Pager: [phone] Personal Pager: [phone] Signature/Cosignature/Attes tation: Attending AttestationI reviewed the resident/fellows documentation and discussed the patient with the resident/fellow. I agree with the resident/fellows medical decision making as documented in the residents note. Electronic Signatures: Titus Conner) (Signed 16-Nov-2018 11:27) Authored: Signature/Cosignature/Attes tation Co-Signer: Service, Subjective Data, Objective Data, Assessment and Plan, Signature/Cosignature/Attes tation Og Wylie (Resident)) (Signed 15-Nov-2018 15:23) Authored: Service, Subjective Data, Objective Data, Assessment and Plan, Signature/Cosignature/Attes tation Last Updated: 16-Nov-2018 11:27 by Titus Conner) Normal [facility] Daily Progress Note-Pulmonol ogyon 11-16-2018 Daily Progress Note-Pulmonology Service: Pulmonology Subjective Data: TRISH HUNT is a 73 year old Female who is Hospital Day # 5. Additional Information: Ms. Hunt underwent MRI of spine yesterday. Communicated with patient findings from preliminary cytology of non-small cell lung cancer. The patient expressed understanding. Complained of back pain, which has improved since yesterday. Denied any other complaints. Objective Data: Objective Information: T PRBPSpO2 Value36.71303496/7097% Date/Time11/16 7: 7: 7: 7: 7:07 Range(36.1C [...] dry no rash Medication: Medications: Continuous Medications ----- 1. Sodium Chloride 0.9% Infusion: 1000 mL IntraVenous Scheduled Medications ----- 1. Acetaminophen: 975 mg Oral 2. Albuterol 2.5 mg/ 3 mL Nebulizer [...] IntraVenous Flush Every 12 Hours PRN Medications ----- 1. Albuterol 2.5 mg/ 3 mL Nebulizer [...] and please feel free to page at [phone] for any further questions. Signature/Cosignature/Attes tation: Attending AttestationI saw and evaluated the patient. [...] Subjective Data, Objective Data, Assessment and Plan, Signature/Cosignature/Attes tation Jane Lewis) (Signed 16-Nov-2018 18:34) Authored: Assessment and Plan, Signature/Cosignature/Attes tation Co-Signer: Service, Subjective Data, Objective Data, Assessment and Plan, Signature/Cosignature/Attes tation Last Updated: 16-Nov-2018 18:34 by Jane Lewis) Normal [facility] CBCon 11-15-2018 Erythrocyte distribution width Ratio (RBC) 13.2 % Normal 11.5 - 14.5 [facility] Comment on above: Performed By: #### C OAGS #### [facility] [address] [place] [address] Hematocrit Volume Fraction (Bld) 40.7 % Normal 36.0 - 46.0 [facility] Comment on above: Performed By: #### C OAGS #### [facility] [address] [place] [address] Hemoglobin mass conc (Bld) 12.3 g/dL Normal 12.0 - 16.0 [facility] Comment on above: Performed By: #### C OAGS #### [facility] [address] [place] [address] MCHC mass conc (RBC) 30.2 g/dL Low 32.0 - 36.0 [facility] Comment on above: Performed By: #### C OAGS #### [facility] [address] [place] [address] MCV Entitic volume (RBC) 102 fL High 80 - 100 [facility] Comment on above: Performed By: #### C OAGS #### [facility] [address] [place] [address] Nucleated RBC/100 WBC Ratio (Bld) 0.0 /100 WBC Normal 0.0-0.0 [facility] Comment on above: Performed By: #### C OAGS #### [facility] [address] [place] [address] Platelets #/vol (Bld) 255 10*3/uL Normal 150 - 450 [facility] Comment on above: Performed By: #### C OAGS #### [facility] [address] [place] [address] RBC #/vol (Bld) 3.98 x10E12/L Low 4.00 - 5.20 [facility] Comment on above: Performed By: #### C OAGS #### [facility] [address] [place] [address] WBC #/vol (Bld) 7.2 10*3/uL Normal 4.4 - 11.3 [facility] Comment on above: Performed By: #### C OAGS #### [facility] [address] [place] [address] Clinical Event Noteon 2017 Clinical Event Note Event: Details: patient was seen after she came back from the procedure, they were xiomy to do mri and [facility] , looks like it is non [...] HLD, presenting as transfer from [facility] after initially presenting there with subacute [...] 20 mg Oral At Bedtime PRN Medications ----- 1. Bisacodyl Rectal: 10 mg Rectal Daily 2. HYDROmorphone Injectable: 0.2 mg IntraVenous Push Every 4 Hours 3. Polyethylene Glycol: 17 gram(s) Oral Daily 4. ketrolac 15 iv every 8 hours Electronic Signatures: Neena Grullon) (Signed 15-Nov-2018 18:28) Authored: Event Last Updated: 15-Nov-2018 18:28 by Neena Grullon) [facility] Daily Progress Note-Medicine on 11-15-2018 Protein mass conc Service: Medicine Subjective Data: TRISH HUNT is a 73 year old Female who is Hospital Day # 4. It's just not fair that this is happening to me all at once.". Overnight Events: Acute events in the past [...] - Hemorrhoidectomy - Cholecystectomy - L4-L5 Decompression 2000 T PRBPSpO2 Value36.43291189/8396% Date/Time11/15 17: 17: 17: 17: 17:56 Range(36.6C [...] lesions, no rashes Medication: Medications: Continuous Medications ----- 1. Sodium Chloride 0.9% Infusion: 1000 mL IntraVenous at 75 ml / hour Scheduled Medications ----- 1. Acetaminophen: 975 mg Oral 2. Albuterol 2.5 mg/ 3 mL Nebulizer [...] IntraVenous Flush Every 12 Hours PRN Medications ----- 1. Albuterol 2.5 mg/ 3 mL Nebulizer [...] RDW-CV 13.2 Renal Function Panel Trending View [id number] 05:35:00 14-Nov-2018 06:57:00 Glucose, Serum91 132 H NA142 143 K4.0 4.1 CL106 108 H Bicarbonate, Serum28 26 Anion Gap, Serum12 13 BUN27 H 32 H CREAT0.96 1.12 H GFR-Non Xydazfsh82 A 47 A GFR- Hvypugpv58 57 A Calcium, Serum8.7 9.2 Phosphorus, Serum5.9 [...] Cord Stimulator Implant who is transferred to [facility] 11/12/[address] [facility] after presenting with intractable progressive back pain with SOB and found on imaging to have a lung mass with adenopathy and suspected spinal metastasis for neurosurgical evaluation and further care. . PLAN: In Shared Visit with Dr. Neena Grullon 1) METASTATIC LUNG MALIGNANCY: Former smoker. Reported SOB and chest pain with deep breath at [place] ER presentation 11/11/18. A CT of the [...] (based on prelim cytology). Recommend: - follow [place] Pleural C&S and Cytology - Follow bronchoscopy / EBUS cytology on lymph node sampling - consult Oncology in a.m. 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 Presented to [facility] 11/11/18 with intractable progressive back pain [...] A CT Chest, Abdomen and Pelvis at [place] showed a suspected Pathologic fracture of the [...] given Decadron with request for transfer to [facility] for Neurosurgery evaluation. Neurosurgery consulted and did [...] breakthrough pain - Physical Therapy consult - Pure-wick to decrease pain associated with frequent [...] 1.2 post contrast with baseline 1.0 at [place].. Creatinine 1.0 today - IV NS at [...] PT evaluation. Family at bedside and supportive ----- PCP: Dr. Emil Braswell [phone] Urology: Dr. Neo Herrera Pharmacy: [facility] [phone] DME: Nebulizer Insurer: [employer] Medicare Family: / POA Healthcare - Kin Hunt [phone] Dtr. / 1st Alt. POA - Annita Sin [phone] / [phone] Dtr. / 2nd Alt. POA - Dionne Wilkes [phone] Signature/Cosignature/Attes tation: Provider/Team Contact Info-Pager Miriam Carlos [facility] # [phone] Comments/ Additional Findings please see my clinical event note Electronic Signatures: Nessa Carlos (DEFENCE INTELLIGENCE ANALYST-FAMILY PROTECTION SPECIALIST) (Signed 15-Nov-2018 21:24) Authored: Service, Subjective Data, Objective Data, Assessment and Plan, Signature/Cosignature/Attes tation Neena Grullon) (Signed 21-Nov-2018 08:25) Authored: Signature/Cosignature/Attes tation Co-Signer: Assessment and Plan, Signature/Cosignature/Attes tation Last Updated: 21-Nov-2018 08:25 by Neena Grullon) Normal [facility] Daily Progress Note-Charity weldon 11-15-2018 Protein mass conc Service: Neurosurger y Subjective Data: TRISH HUNT is a 73 year old Female who is Hospital Day # 4. Objective Data: Objective Information: T PRBPSpO2 [id number]/7097% Date/Time11/15 3: 3: 3: 3: 3:41 Range(36.4C [...] MD Resident Physician Department of Neurological Surgery [facility] [email or web address] Neurosurgery Pager: [phone] Personal Pager: [phone] Signature/Cosignature/Attes tation: Attending AttestationI reviewed the resident/fellows documentation and discussed the patient with the resident/fellow. I agree with the resident/fellows medical decision making as documented in the residents note. Electronic Signatures: Fartun Tamayo) (Signed 16-Nov-2018 09:18) Authored: Assessment and Plan, Signature/Cosignature/Attes tation Co-Signer: Service, Subjective Data, Objective Data, Assessment and Plan, Signature/Cosignature/Attes tation Abiel Markham (Resident)) (Signed 15-Nov-2018 06:00) Authored: Service, Subjective Data, Objective Data, Assessment and Plan, Signature/Cosignature/Attes tation Last Updated: 16-Nov-2018 09:18 by Fartun Tamayo) Normal [facility] Daily Progress Note-Pulmonol ogmaria isabel 11-15-2018 Daily Progress Note-Pulmonology Service: Pulmonology Subjective Data: TRISH HUNT is a 73 year old Female who is Hospital Day # 4. Additional Information: Patient complained of back pain on minimal movement. Denied any other complaints. Objective Data: Objective Information: T PRBPSpO2 Value36.70871659/8396% Date/Time11/15 17: 17: 17: 17: 17:56 Range(36.6C [...] is recommended. The study was interpreted at [facility]. MRI Cervical w/wo Contrast [Nov 15 2018 [...] and please feel free to page at [phone] for any further questions. Signature/Cosignature/Attes tation: Attending AttestationI saw and evaluated the patient. [...] Subjective Data, Objective Data, Assessment and Plan, Signature/Cosignature/Attes tation Jane Lewis) (Signed 03-Dec-2018 22:29) Authored: Signature/Cosignature/Attes tation Co-Signer: Service, Subjective Data, Objective Data, Assessment and Plan, Signature/Cosignature/Attes tation Last Updated: 03-Dec-2018 22:29 by Jane Lewis) Normal [facility] GLUCOSE-POCTon 11-15-2018 Glucose mass conc 118 mg/dL High 74 - 99 [facility] Comment on above: Performed By: #### C OAGS #### [facility] [address] [place] [address] NR MR CERVICAL WO/W CONTRAST on 11-15-2018 NR MR CERVICAL WO/W CONTRAST Patient Name: TRISH HUNT STUDY: NR MR CERVICAL WO/W CONTRAST; NR MR L-SPINE WO/W CONTRAST; NR MR T-SPINE WO/W; 11/15/2018 2:22 pm INDICATION: Signs/Symptoms: highly suspect spinal metastasis of presumed lung CA - request of Neurosurgery for treatment planning, Lie Flat: Yes, Pre Med: Yes, BMI: Yes, BiPAP: No, O2: No. COMPARISON: None. ACCESSION NUMBER(S): [id number]; [id number]; [id number] ORDERING CLINICIAN: NEENA GRULLON TECHNIQUE: Sagittal STIR, [...] to moderate central canal narrowing. There is cwvu-jy-hzmsaiso encroachment upon the neural foramina bilaterally. At [...] is recommended. The study was interpreted at [facility]. Electronically signed by: ADRIANA DIETZ MD Normal [facility] NR MR L-SPINE WO/W CONTRASTo n 11-15-2018 NR MR L-SPINE WO/W CONTRAST Patient Name: TRISH HUNT STUDY: NR MR CERVICAL WO/W CONTRAST; NR MR L-SPINE WO/W CONTRAST; NR MR T-SPINE WO/W; 11/15/2018 2:22 pm INDICATION: Signs/Symptoms: highly suspect spinal metastasis of presumed lung CA - request of Neurosurgery for treatment planning, Lie Flat: Yes, Pre Med: Yes, BMI: Yes, BiPAP: No, O2: No. COMPARISON: None. ACCESSION NUMBER(S): [id number]; [id number]; [id number] ORDERING CLINICIAN: NEENA GRULLON TECHNIQUE: Sagittal STIR, [...] to moderate central canal narrowing. There is heym-ze-sevisnfq encroachment upon the neural foramina bilaterally. At [...] is recommended. The study was interpreted at [facility]. Electronically signed by: ADRIANA DIETZ MD [facility] NR MR T-SPINE WO/Won 018 NR MR T-SPINE WO/W Patient Name: TRISH HUNT STUDY: NR MR CERVICAL WO/W CONTRAST; NR MR L-SPINE WO/W CONTRAST; NR MR T-SPINE WO/W; 11/15/2018 2:22 pm INDICATION: Signs/Symptoms: highly suspect spinal metastasis of presumed lung CA - request of Neurosurgery for treatment planning, Lie Flat: Yes, Pre Med: Yes, BMI: Yes, BiPAP: No, O2: No. COMPARISON: None. ACCESSION NUMBER(S): [id number]; [id number]; [id number] ORDERING CLINICIAN: NEENA GRULLON TECHNIQUE: Sagittal STIR, [...] to moderate central canal narrowing. There is uvzt-pq-rdbldcfr encroachment upon the neural foramina bilaterally. At [...] is recommended. The study was interpreted at [facility]. Electronically signed by: ADRIANA DIETZ MD Normal [facility] RENAL FUNCTION PANELon 11-15 Albumin mass conc 3.1 g/dL Low 3.4 - 5.0 [facility] Comment on above: Performed By: #### C OAGS #### [facility] [address] [place] [address] Anion gap molar conc 12 mmol/L Normal 10 - 20 [facility] Comment on above: Performed By: #### C OAGS #### [facility] [address] [place] [address] Calcium mass conc 8.7 mg/dL Normal 8.6 - 10.6 [facility] Comment on above: Performed By: #### C OAGS #### [facility] [address] [place] [address] Chloride molar conc 106 mmol/L Normal 98 - 107 [facility] Comment on above: Performed By: #### C OAGS #### [facility] [address] [place] [address] Creatinine mass conc 0.96 mg/dL Normal 0.50 - 1.05 [facility] Comment on above: Performed By: #### C OAGS #### [facility] [address] [place] [address] GFR- AM. 69 mL/min/1.73m2 Normal >60 [facility] Comment on above: Result Comment: CALC ULATIONS OF ESTIMATED GFR ARE PERFORMED USING THE MDRD STUDY EQUATION FOR THE IDMS-TRACEABLE CREATININE METHODS. CLIN CHEM 2007;53:766-72 Performed By: #### C OAGS #### [facility] [address] [place] [address] GFR-NON AM. 57 mL/min/1.73m2 Abnormal >60 [facility] Comment on above: Performed By: #### C OAGS #### [facility] [address] [place] [address] Glucose mass conc 91 mg/dL Normal 74 - 99 [facility] Comment on above: Performed By: #### C OAGS #### [facility] [address] [place] [address] HCO3 molar conc (Bld) 28 mmol/L Normal 21 - 32 [facility] Comment on above: Performed By: #### C OAGS #### [facility] [address] [place] [address] Phosphate mass conc 5.9 mg/dL High 2.5 - 4.9 [facility] Comment on above: Result Comment: The performance characteristics of phosphorus testing in heparinized plasma have been validated by the individual laboratory site where testing is performed. Testing on heparinized plasma is not approved by the FDA; however, such approval is not necessary. Performed By: #### C OAGS #### [facility] [address] [place] [address] Potassium molar conc 4.0 mmol/L Normal 3.5 - 5.3 [facility] Comment on above: Performed By: #### C OAGS #### [facility] [address] [place] [address] Sodium molar conc 142 mmol/L Normal 136 - 145 [facility] Comment on above: Performed By: #### C OAGS #### [facility] [address] [place] [address] Urea nitrogen mass conc 27 mg/dL High 6 - 23 [facility] Comment on above: Performed By: #### C OAGS #### [facility] [address] [place] [address] [facility] Cytologyon 11-15-2018 [facility] Cytology ADDENDUM Patient Name TRISH HUNT Date of [...] this case. Slide(s) initially screened by a Pin Chaser at [place] [address] Rapid Evaluation Fine Needle Aspiration Immediate Read Result: A,B: Malignant cells derived from non-small cell carcinoma. Pathologist: ADRIANA ZAPATA M.D. Date: 11/15/2018 Clinical History RIGHT HILAR MASS. MEDIESTINAL LYMPHODENOPATHY Source of Specimen A: FINE NEEDLE ASPIRATION 11 RS LYMPH NODE B: FINE NEEDLE ASPIRATION 7 LYMPH NODE Specimen Submitted as: A: FINE NEEDLE ASPIRATION 11 RS LYMPH NODE pap stain non-baseball inspector, Pap conventional Diff Quick, CELL BLOCK, H AND E, Initial B: FINE NEEDLE ASPIRATION 7 LYMPH NODE pap stain non-baseball inspector, Pap conventional Diff Quick, CELL BLOCK, H AND E, Initial, IH p40, IH TTF-1, IH MD Recut, IH PD-L1 22C3, IH MD US PLUS, IH MD US PLUS, IH MD US PLUS, IH MD US PLUS, IH MD US PLUS, IH MD US PLUS, IH MD US PLUS, IH MD US PLUS, IH MD US PLUS, IH MD US PLUS, IH MD US PLUS, IH MD US PLUS, IH MD US PLUS, IH MD US PLUS, IH MD US PLUS, IH MD Recut, NGS Focused Solid Tumor Assay(DNA/RNA) Gross Description A. FINE NEEDLE KPRSKTDATL90 RS LYMPH NODE: 1 DIFF QUICK SLIDE,1 [...] tissue using the Optiview detection on a [place] BenchMark Ultra. The specimen submitted for testing [...] the Department of Pathology Immunohistochemistry Lab at [facility]. The FDA does not require this test [...] Tumor Assay SPECIMEN: FFPE, Lymph Node, FNA, [id number] B1 DISEASE DIAGNOSIS: Adenocarcinoma DATE OF COLLECTION: [...] analytical performance characteristics have been determined by [facility]. This test has not been cleared or approved by the FDA; however, the FDA has determined that such approval is not necessary. The [facility] is certified under the Clinical Laboratory Improvement [...] (NM_000038); AR(NM_000044); ARAF (NM_001654); ROXI (NM_021913); B2M (NM_004048);BRAF(NM_004333) ; CCND1(NM_053056); CDK4(NM_000075); CDK6(NM_001259); CDKN2A (NM_000077); CREBBP (NM_004380); CTNNB1(NM_001904); DDR2(NM_006182); EGFR(NM_005228); EP300 (NM_001429);ERBB2(NM_004448 ; ERBB3(NM_001982); ERBB4(NM_005235); ESR1(NM_000125); FBXW7 (NM_033632); FGFR1(NM_023110); FGFR2(NM_000141); FGFR3(NM_000142); FGFR4(NM_213647); GNA11(NM_002067); GNAQ(NM_002072); HRAS(NM_005343); IDH1(NM_005896); IDH2(NM_002168); JAK1(NM_002227); [...] the Department of Pathology Immunohistochemistry Labs at [facility]. The FDA does not require this test to go through premarket FDA review. This test is used for clinical purposes. It should not be regarded as investigational or for research. This laboratory is certified under the Clinical Laboratory Improvement Amendments (CLIA) as qualified to perform high complexity clinical laboratory testing. The assays/tests were performed with appropriate positive and negative controls which stained appropriately. Normal [facility] Comment on above: Performed By: #### C #### [facility] [address] [place] [address] Daily Progress Note-Medicine on 11-14-2018 Protein mass conc Service: Medicine Subjective Data: TRISH HUNT is a 73 year old Female who is Hospital Day # 3. I slept good last night, but then when I woke up the pain was horrible. With this overactive bladder I have to go to the bathroom all the time and I don't want to wet myself.". Overnight Events: Patient had an uneventful night. [...] - Hemorrhoidectomy - Cholecystectomy - L4-L5 Decompression 2000 T PRBPSpO2 Value36.26593101/02844% Date/Time11/14 11: 11: 11: 11: 11:29 Range(36.4C [...] lesions, no rashes Medication: Medications: Scheduled Medications ----- 1. Acetaminophen: 975 mg Oral three times a day 2. Enoxaparin SubCutaneous: 40 mg SubCutaneous Every 12 Hours 3. hydroCHLOROthiazide: 12.5 mg Oral Daily 4. Levothyroxine: 50 microgram(s) Oral Daily 5. Multivitamin with Minerals: 1 tablet(s) Oral Daily 6. Polyethylene Glycol: 17 gram(s) Oral 2 Times a Day 7. Simvastatin: 20 mg Oral At Bedtime PRN Medications ----- 1. Bisacodyl Rectal: 10 mg Rectal Daily 2. HYDROmorphone Injectable: 0.2 mg IntraVenous Push Every 4 Hours 3. Morphine Immediate Release: 7.5 mg Oral Every 3 Hours 4. Ondansetron Injectable: 4 mg IntraVenous Push Every 6 Hours 5. Polyethylene Glycol: 17 gram(s) Oral Daily Recent Lab Results: Results: I have reviewed these laboratory results: Renal Function Panel Trending View Fhxkat78-Vgi-3021 06:57:00 13-Nov-2018 12:20:00 Glucose, Zrcho609 H 158 H NA143 140 K4.1 4.7 CL108 H 107 Bicarbonate, Serum26 23 Anion Gap, Serum13 15 BUN32 H 22 CREAT1.12 H 1.17 H GFR-Non Hyzopohk71 A 45 A GFR- Wlfgjpmu44 A 54 A Calcium, Serum9.2 9.1 Phosphorus, [...] Cord Stimulator Implant who is transferred to [facility] 11/12/[address] [facility] after presenting with intractable progressive back pain with SOB and found on imaging to have a lung mass with adenopathy and suspected spinal metastasis for neurosurgical evaluation and further care. . PLAN: In Shared Visit with Dr. Neena Grullon 1) SUSPECTED LUNG MALIGNANCY: Former smoker. Reported SOB and chest pain with deep breath at [place] [facility] presentation 11/11/18. A CT of the [...] without lesions. Pulmonology consulted yesterday - follow [place] Pleural C&S and Cytology - NPO after midnight for potential diagnostic bronchoscopy - hold Lovenox - PET-CT in a.m. 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 Presented to [facility] 11/11/18 with intractable progressive back pain [...] A CT Chest, Abdomen and Pelvis at [place] showed a suspected Pathologic fracture of the [...] given Decadron with request for transfer to [facility] for Neurosurgery evaluation. Neurosurgery consulted and did [...] 1.2 post contrast with baseline 1.0 at [place].. Creatinine 1.1 today, but now having emesis [...] challenge for ambulation - await PT evaluation. ----- PCP: Dr. Emil Braswell [phone] Urology: Dr. Neo Herrera Pharmacy: [facility] ([place]) [phone] Insurer: [facility] Medicare Family: / POA Healthcare - Kin Hunt [phone] Dtr. / 1st Alt. POA - Annita Sin [phone] / [phone] Dtr. / 2nd Alt. POA - Dionne Wilkes [phone] Signature/Cosignature/Attes tation: Provider/Team Contact Info-Pager Miriam Carlos FAMILY PROTECTION SPECIALIST # [phone] Comments/ Additional Findings patient has back pain [...] HLD, presenting as transfer from [facility] after initially presenting there with subacute [...] for the results. Electronic Signatures: Nessa Carlos (DEFENCE INTELLIGENCE ANALYST-FAMILY PROTECTION SPECIALIST) (Signed 15-Nov-2018 00:17) Authored: Service, Subjective Data, Objective Data, Assessment and Plan, Signature/Cosignature/Attes Neena Cruz () (Signed 14-Nov-2018 16:26) Authored: Signature/Cosignature/Attes clifford Last Updated: 15-Nov-2018 00:17 by Nessa Carlos (DEFENCE INTELLIGENCE ANALYST-FAMILY PROTECTION SPECIALIST) [facility] Daily Progress Note-Charity weldon 11-14-2018 Protein mass conc Service: Neurosurger y Subjective Data: TRISH HUNT is a 73 year old Female who is Hospital Day # 2. Objective Data: Objective Information: T PRBPSpO2 [id number]/6895% Date/Time11/13 15: 15: 15: 15: 15:27 Range(36.3C [...] MD Resident Physician Department of Neurological Surgery [facility] [email or web address] Neurosurgery Pager: [phone] Personal Pager: [phone] Signature/Cosignature/Attes tation: Attending AttestationI reviewed the resident/fellows documentation and discussed the patient with the resident/fellow. I agree with the resident/fellows medical decision making as documented in the residents note. Electronic Signatures: Fartun Tamayo) (Signed 14-Nov-2018 10:21) Authored: Signature/Cosignature/Attes tation Co-Signer: Service, Subjective Data, Objective Data, Assessment and Plan, Signature/Cosignature/Attes tation Abiel Makrham (Resident)) (Signed 13-Nov-2018 18:20) Authored: Service, Subjective Data, Objective Data, Assessment and Plan, Signature/Cosignature/Attes tation Last Updated: 14-Nov-2018 10:21 by Fartun Tamayo) [facility] Daily Progress Note-Pulmonol ogyon 11-14-2018 Daily Progress Note-Pulmonology Consult Type: subsequent visit/care Service: Pulmonology Subjective Data: TRISH HUNT is a 73 year old Female who is Hospital Day # 3. Additional Information: Seen this afternoon after CT scan of her spine Having increased nausea and vomitting Tentative plan for bronch tomorrow Reviewed history reports most recent mammogram ~ 3 years ago Objective Data: Objective Information: T PRBPSpO2 Value36.39528644/78906% Date/Time11/14 15: 15: 15: 15: 15:46 Range(36.4C [...] Skin: no rash Medication: Medications: Continuous Medications ----- No continuous medications are active Scheduled Medications ----- 1. Acetaminophen: 975 mg Oral 2. Enoxaparin SubCutaneous: 40 mg SubCutaneous Every [...] 20 mg Oral At Bedtime PRN Medications ----- 1. Bisacodyl Rectal: 10 mg Rectal Daily [...] for staging -f/u cytology from thoracentesis at [facility] -plan for bronchscopy tomorrow--please keep NPO after midnight, hold lovenox tonight and tomorrow morning. Discussed with Dr. Lewis Will continue to follow, call consult pager [phone] with any questions Signature/Cosignature/Attes tation: Attending AttestationI saw and evaluated the patient. [...] Signatures: Jane Lewis) (Signed 03-Dec-2018 22:26) Authored: Signature/Cosignature/Attes tation Co-Signer: Service, Assessment/Plan Review, Subjective Data, Objective Data, Assessment and Plan, Signature/Cosignature/Attes tation Linda Gomez (Fellow)) (Signed 14-Nov-2018 16:25) Authored: Service, Assessment/Plan Review, Subjective Data, Objective Data, Assessment and Plan, Signature/Cosignature/Attes tation Last Updated: 03-Dec-2018 22:26 by Jane Lewis) Normal [facility] Discharge Rrfmsdz2ez 12-30-2 018 Protein mass conc Discharge Orders: Anticipated Discharge Date: Anticipated Discharge Alfr83-Oil-2903 Problem List: Prelim Disch Dx: HCAP (healthcare-associated [...] persistent back pain who was transferred to [facility] 11/12/18 from [facility] after presenting there on 11/11/18 with [...] given Decadron with request for transfer to [facility] under Oncology for further evaluation by Neurosurgery. [...] A referral was made to [facility] for Oncology and Radiation [...] Occupational Therapy OrdersEval and Treat ([facility]) daily Physical Therapy OrdersEval and Treat ([facility]) daily Provider Follow Up: Primary Care PhysicianDr. Emil Braswell Primary Care Physician Phone [phone] Physician To Follow at Skilled/RehabAttending Physician at [facility] Provider FINAL REVIEW of Orders: Final Review: Final Review of Medication Reconciliation and Orders Completedby Physician Reviewing ProviderCheng Bethea MD at 03-Dec-2018 17:23:37 Appointments: Follow-Up Appointment 01: Physician/Dept/ServiceDr. Emil Braswell (Primary Care Provider) Reason for Referralhospital follow up Call to Schedule wild to schedule a follow-up appointment upon discharge from nursing home facility [id number] [facility], [place], [place] [address] Phone [phone] / Follow-Up Appointment 02: Physician/Dept/ServiceDrJoseph Gates (Medical Oncology) Reason for ReferralMetastatic Lung Cancer Scheduled Date/Jbxm65-Tzp-9356 13:[address] [place] [address] Phone [phone] / medical office scheduler [phone] CommentsBring CD of of your Radiology Images to give to Dr. Gates Follow-Up Appointment 03: Physician/Dept/ServiceDrJoseph Guerrero (Radiation Oncology) Reason for ReferralMetastatic Lung Cancer to the Spine Call to Schedule into be arranged - if you have not heard by the time you see Dr. Gates, let him know [address] [place] [address] Phone [phone] / medical office scheduler [phone] Follow-Up Appointment 04: Physician/Dept/ServiceDrJoseph Tamayo (Neurosurgery) Reason for Referralfollow up Thoracic Spine Decompression with Fusion Surgery Scheduled Date/Thev37-She-2991 14:00 [facility], [facility] - [address] [facility], [place] [address] Phone [phone] Commentsplease bring a photo ID, proof of insurance and current list of medications with you to this appointment Gold Form - Nursing Summary: Special Treatments/Procedures (in past 14 days): Chemotherapyno Dialysisno IV Medicationyes Last Date Llclfnig12-Ota-1150 Transfusionsno Feverno Radiationno Ventilatorno Tracheostomyno Suctioningno Sensory/Comfort: Visionuses glasses/contacts Hearingpoor Painyes Pain Typespasm Pain Locationlumbar spine Whenupon movement Pain Relieved Byposition Elimination: Bladdercontinent Bowelcontinent Last Bowel Vxivgrdf44-Igv-1094 Safety: Siderailsyes Siderails Number/Reason3/ safety Restraintsno Sitterno Fall Riskweakness Medication/Hygiene/Mobility : Medication Administrationassist Bathingassist Dressingassist Bed Mobilitypersons/equipment, walker Wheelchairassist Transfersassist Ambulationassist Skin comment: Skin commentback with brittni Electronic Signatures: Buster Bose () (Signed 03-Dec-2018 15:05) Authored: Discharge Orders, Gold Form - Nursing Summary Leandra Rosario ([facility]) (Signed 01-Dec-2018 17:04) Authored: Appointments Cheng Bethea) (Signed 03-Dec-2018 17:23) Authored: Gold Form Orders, Provider FINAL REVIEW of Orders Lara Falukner (PT ACC REP) (Signed 02-Dec-2018 15:15) Authored: Appointments Jordan Saunders ([facility]) (Signed 01-Dec-2018 12:31) Authored: Discharge Orders, Hospital Course (Home Care/Gold Form), Appointments Randee Meza ([facility]) (Signed 23-Nov-2018 19:17) Authored: Neurosurgery Nessa Carlos ([facility]) (Signed 03-Dec-2018 19:33) Authored: Discharge Orders, Neurosurgery, Stroke, Hospital Course (Home Care/Gold Form), Gold Form Orders, Appointments, Gold Form - Pottery Decorator Summary Dominic Preciado ([facility]) (Signed 22-Nov-2018 18:50) Authored: Discharge Orders, Gold Form Orders Bienvenido France (PT ACC REP) (Signed 01-Dec-2018 13:02) Authored: Heart Failure, Stroke, Appointments Deanne Sanabria (PT ACC REP) (Signed 29-Nov-2018 13:58) Authored: Appointments Last Updated: 03-Dec-2018 19:33 by Nessa Carlos ([facility]) Normal [facility] NR CT L-SPINE WO CONTRASTon 11-14-[address] L-SPINE WO CONTRAST Patient Name: TRISH HUNT STUDY: NR CT L-SPINE WO CONTRAST; NR CT T-SPINE WO CONTRAST 11/14/2018 2:10 pm INDICATION: Signs/Symptoms: T9 lesion on Chest CT suspicious for bone mets, but having pain in lumbar region, Lie Flat: Yes COMPARISON: None. ACCESSION NUMBER(S): [id number]; [id number] ORDERING CLINICIAN: NESSA CARLOS TECHNIQUE: Unenhanced CT [...] at 3:15 p.m. Electronically signed by: PHYSICIAN Negrita RAINES [facility] NR CT T-SPINE WO CONTRASTon 11-14-[address] T-SPINE WO CONTRAST Patient Name: TRISH HUNT STUDY: NR CT L-SPINE WO CONTRAST; NR CT T-SPINE WO CONTRAST 11/14/2018 2:10 pm INDICATION: Signs/Symptoms: T9 lesion on Chest CT suspicious for bone mets, but having pain in lumbar region, Lie Flat: Yes COMPARISON: None. ACCESSION NUMBER(S): [id number]; [id number] ORDERING CLINICIAN: NESSA CARLOS TECHNIQUE: Unenhanced CT [...] at 3:15 p.m. Electronically signed by: PHYSICIAN Negrita RAINES [facility] NR MRI BRAIN W/WO CONTRASTon 11-14-2018 NR MRI BRAIN W/WO CONTRAST Patient Name: TRISH HUNT STUDY: NR MRI BRAIN W/WO CONTRAST; 11/14/2018 12:55 pm INDICATION: Signs/Symptoms: Lung mass with bone lesion suspicious for metastatsis - staging, Lie Flat: Yes, Pre Med: No. COMPARISON: None. ACCESSION NUMBER(S): [id number] ORDERING CLINICIAN: NESSA CARLOS TECHNIQUE: Axial T2, [...] degenerative or other etiologies. Electronically signed by: JOHN BIRSCOE PHYSICIAN Normal [facility] RENAL FUNCTION PANELon 11-14 Albumin mass conc 3.7 g/dL Normal 3.4 - 5.0 [facility] Comment on above: Performed By: #### C BCDF #### [facility] [address] [place] [address] Anion gap molar conc 13 mmol/L Normal 10 - 20 [facility] Comment on above: Performed By: #### C BCDF #### [facility] [address] [place] [address] Calcium mass conc 9.2 mg/dL Normal 8.6 - 10.6 [facility] Comment on above: Performed By: #### C BCDF #### [facility] [address] [place] [address] Chloride molar conc 108 mmol/L High 98 - 107 [facility] Comment on above: Performed By: #### C BCDF #### [facility] [address] [place] [address] Creatinine mass conc 1.12 mg/dL High 0.50 - 1.05 [facility] Comment on above: Performed By: #### C BCDF #### [facility] [address] [place] [address] GFR- AM. 57 mL/min/1.73m2 Abnormal >60 [facility] Comment on above: Result Comment: CALC ULATIONS OF ESTIMATED GFR ARE PERFORMED USING THE MDRD STUDY EQUATION FOR THE IDMS-TRACEABLE CREATININE METHODS. CLIN CHEM 2007;53:766-72 Performed By: #### C BCDF #### [facility] [address] [place] [address] GFR-NON AM. 47 mL/min/1.73m2 Abnormal >60 [facility] Comment on above: Performed By: #### C BCDF #### [facility] [address] [place] [address] Glucose mass conc 132 mg/dL High 74 - 99 [facility] Comment on above: Performed By: #### C BCDF #### [facility] [address] [place] [address] HCO3 molar conc (Bld) 26 mmol/L Normal 21 - 32 [facility] Comment on above: Performed By: #### C BCDF #### [facility] [address] [place] [address] Phosphate mass conc 4.4 mg/dL Normal 2.5 - 4.9 [facility] Comment on above: Result Comment: The performance characteristics of phosphorus testing in heparinized plasma have been validated by the individual laboratory site where testing is performed. Testing on heparinized plasma is not approved by the FDA; however, such approval is not necessary. Performed By: #### C BCDF #### [facility] [address] [place] [address] Potassium molar conc 4.1 mmol/L Normal 3.5 - 5.3 [facility] Comment on above: Performed By: #### C BCDF #### [facility] [address] [place] [address] Sodium molar conc 143 mmol/L Normal 136 - 145 [facility] Comment on above: Performed By: #### C BCDF #### [facility] [address] [place] [address] Urea nitrogen mass conc 32 mg/dL High 6 - 23 [facility] Comment on above: Performed By: #### C BCDF #### [facility] [address] [place] [address] ABDOMEN AP VIEWon 018 ABDOMEN AP VIEW Patient Name: TRISH HUNT STUDY: TH ABDOMEN AP VIEW; 11/14/2018 6:40 pm INDICATION: Signs/Symptoms: abdominal distension with Nausea and vomiting. COMPARISON: None ACCESSION NUMBER(S): [id number] ORDERING CLINICIAN: NESSA PALCISKO FINDINGS: Nonobstructive bowel gas pattern. Limited evaluation of pneumoperitoneum on supine imaging, however no gross evidence of free air is noted. Visualized lungs are clear. Osseous structures demonstrate no acute bony changes. IMPRESSION: 1. Moderate amount of stool within the colon but no gross evidence of obstruction. Electronically signed by: Dashawn MARCOS MD Normal [facility] Admission Risk Screen - Adul ton 11-13-2018 Admission Risk Screen - Adult Allergies: Allergies: sulfa drugs: Unknown codeine: Other [...] AvailabilityLiving Will not available now Living Will Mzeivhdzs99-Cnu-7571 Falls Screen: Type of Assessmentadmission Moderate Risk Factorsnursing judgment (specify) Risk for Injury Associated with Fallnone Fall Risk Conclusionmoderate falls risk with low risk for associated injury [place] Safety InterventionsWDL *orient to call system *instruct [...] instruction; written material Cultural Considerationsnone Developmental Considerationsnone Confucianist Considerationsnone Learning Assessment (Other Learner): Other learner [...] Spiritual Screen: Are there any cultural, spiritual, uatsdin practices/values/needs that are important for us to knowno CAGE: Is this an injured patient at a Trauma Center ([facility] / [facility]): no Vaccinations: Vaccination - Influenza Vaccination Screen: [...] Pressure Injury Present on Admissionno Electronic Signatures: Linda Kline (SHARMIN) (Signed 13-Nov-2018 00:13) Authored: Admission Risk Screens, Vaccinations, [place], Pressure Injury Last Updated: 23-Nov-2018 21:58 by Anna Santiago) Normal [facility] CBC AND DIFFERENTIALon 11-13 % AUTOMATED IMMATURE GRAN 1.0 % Normal 0.0 - 0.9 [facility] Comment on above: Result Comment: Perc ent differential counts (%) should be interpreted in the context of the absolute cell counts (cells/L). Performed By: #### C BCDF #### [facility] [address] [place] [address] % NEUTROPHIL 88.4 % Normal 40.0 - 80.0 [facility] Comment on above: Performed By: #### C BCDF #### [facility] [address] [place] [address] Basophils/100 WBC (Bld) 0.1 % Normal 0.0 - 2.0 [facility] Comment on above: Performed By: #### C BCDF #### [facility] [address] [place] [address] Basophils/100 WBC (Bld) 0.01 x10E9/L Normal 0.00 - 0.10 [facility] Comment on above: Performed By: #### C BCDF #### [facility] [address] [place] [address] Eosinophils #/vol (Bld) 0.00 10*3/uL Normal 0.00 - 0.40 [facility] Comment on above: Performed By: #### C BCDF #### [facility] [address] [place] [address] Eosinophils/100 WBC (Bld) 0.0 % Normal 0.0 - 6.0 [facility] Comment on above: Performed By: #### C BCDF #### [facility] [address] [place] [address] Erythrocyte distribution width Ratio (RBC) 13.2 % Normal 11.5 - 14.5 [facility] Comment on above: Performed By: #### C BCDF #### [facility] [address] [place] [address] Hematocrit Volume Fraction (Bld) 46.0 % Normal 36.0 - 46.0 [facility] Comment on above: Performed By: #### C BCDF #### [facility] [address] [place] [address] Hemoglobin mass conc (Bld) 14.2 g/dL Normal 12.0 - 16.0 [facility] Comment on above: Performed By: #### C BCDF #### [facility] [address] [place] [address] Lymphocytes #/vol (Bld) 0.64 10*3/uL Low 0.80 - 3.00 [facility] Comment on above: Performed By: #### C BCDF #### [facility] [address] [place] [address] Lymphocytes/100 WBC (Bld) 8.1 % Normal 13.0 - 44.0 [facility] Comment on above: Performed By: #### C BCDF #### [facility] [address] [place] [address] MCHC mass conc (RBC) 30.9 g/dL Low 32.0 - 36.0 [facility] Comment on above: Performed By: #### C BCDF #### [facility] [address] [place] [address] MCV Entitic volume (RBC) 98 fL Normal 80 - 100 [facility] Comment on above: Performed By: #### C BCDF #### [facility] [address] [place] [address] Monocytes #/vol (Bld) 0.19 10*3/uL Normal 0.05 - 0.80 [facility] Center Comment on above: Performed By: #### C BCDF #### [facility] [address] [place] [address] Monocytes/100 WBC (Bld) 2.4 % Normal 2.0 - 10.0 [facility] Comment on above: Performed By: #### C BCDF #### [facility] [address] [place] [address] Neutrophils #/vol (Bld) 7.02 10*3/uL High 1.60 - 5.50 [facility] Comment on above: Performed By: #### C BCDF #### [facility] [address] [place] [address] Nucleated RBC/100 WBC Ratio (Bld) 0.0 /100 WBC Normal 0.0-0.0 [facility] Comment on above: Performed By: #### C BCDF #### [facility] [address] [place] [address] Platelets #/vol (Bld) 308 10*3/uL Normal 150 - 450 [facility] Comment on above: Performed By: #### C BCDF #### [facility] [address] [place] [address] RBC #/vol (Bld) 4.70 x10E12/L Normal 4.00 - 5.20 [facility] Comment on above: Performed By: #### C BCDF #### [facility] [address] [place] [address] WBC #/vol (Bld) 7.9 10*3/uL Normal 4.4 - 11.3 [facility] Comment on above: Performed By: #### C BCDF #### [facility] [address] [place] [address] COAGULATION SCREENon 018 aPTT Coag time (Bld) 33 s Normal 28 - 38 [facility] Comment on above: Result Comment: Note new reference range as of 09/07/2018. THE APTT IS NO LONGER USED FOR MONITORING UNFRACTIONATED HEPARIN THERAPY. FOR MONITORING HEPARIN THERAPY, USE THE HEPARIN ASSAY. Performed By: #### C OAGS #### [facility] [address] [place] [address] INR Coag RelTime (PPP) 1.1 {INR} Normal 0.9 - 1.1 [facility] Comment on above: Performed By: #### C OAGS #### [facility] [address] [place] [address] Prothrombin time (PT) Coag time (PPP) 11.8 s Normal 9.7 - 12.7 [facility] Comment on above: Result Comment: Note new reference range as of 09/07/2018. Performed By: #### C OAGS #### [facility] [address] [place] [address] COMPREHENSIVE PANELon 2017 Albumin mass conc 4.3 g/dL Normal 3.4 - 5.0 [facility] Comment on above: Performed By: #### C MP #### [facility] [address] [place] [address] ALP enzyme act/vol 48 U/L Normal 33 - 136 [facility] Comment on above: Performed By: #### C MP #### [facility] [address] [place] [address] ALT enzyme act/vol 12 U/L Normal 7 - 45 [facility] Comment on above: Result Comment: Judi ents treated with Sulfasalazine may generate falsely decreased results for ALT. Performed By: #### C MP #### [facility] [address] [place] [address] Anion gap molar conc 14 mmol/L Normal 10 - 20 [facility] Comment on above: Performed By: #### C MP #### [facility] [address] [place] [address] AST enzyme act/vol 23 U/L Normal 9 - 39 [facility] Comment on above: Performed By: #### C MP #### [facility] [address] [place] [address] Bilirubin mass conc 0.4 mg/dL Normal 0.0 - 1.2 [facility] Comment on above: Performed By: #### C MP #### [facility] [address] [place] [address] Calcium mass conc 10.1 mg/dL Normal 8.6 - 10.6 [facility] Comment on above: Performed By: #### C MP #### [facility] [address] [place] [address] Chloride molar conc 103 mmol/L Normal 98 - 107 [facility] Comment on above: Performed By: #### C MP #### [facility] [address] [place] [address] Creatinine mass conc 1.21 mg/dL High 0.50 - 1.05 [facility] Comment on above: Performed By: #### C MP #### [facility] [address] [place] [address] GFR- AM. 52 mL/min/1.73m2 Abnormal >60 [facility] Comment on above: Result Comment: CALC ULATIONS OF ESTIMATED GFR ARE PERFORMED USING THE MDRD STUDY EQUATION FOR THE IDMS-TRACEABLE CREATININE METHODS. CLIN CHEM 2007;53:766-72 Performed By: #### C MP #### [facility] [address] [place] [address] GFR-NON AM. 43 mL/min/1.73m2 Abnormal >60 [facility] Comment on above: Performed By: #### C MP #### [facility] [address] [place] [address] Glucose mass conc 161 mg/dL High 74 - 99 [facility] Comment on above: Performed By: #### C MP #### [facility] [address] [place] [address] HCO3 molar conc (Bld) 29 mmol/L Normal 21 - 32 [facility] Comment on above: Performed By: #### C MP #### [facility] [address] [place] [address] Potassium molar conc 4.0 mmol/L Normal 3.5 - 5.3 [facility] Comment on above: Performed By: #### C MP #### [facility] [address] [place] [address] Protein mass conc 7.5 g/dL Normal 6.4 - 8.2 [facility] Comment on above: Performed By: #### C MP #### [facility] [address] [place] [address] Sodium molar conc 142 mmol/L Normal 136 - 145 [facility] Comment on above: Performed By: #### C MP #### [facility] [address] [place] [address] Urea nitrogen mass conc 16 mg/dL Normal 6 - 23 [facility] Comment on above: Performed By: #### C MP #### [facility] [address] [place] [address] Clinical Event Note-neurosur alicia updateon 11-13-2018 Clinical Event Note-neurosurgery update Event: Topic: neurosurgery update Details: Imaging reviewed. [...] Team Contact Information: Provider/Team Contact Info-Pager Number: [phone] Electronic Signatures: Deborah Espana ( (Resident)) (Signed 13-Nov-2018 09:20) Authored: Event, Provider / Team Contact Information Last Updated: 13-Nov-2018 09:20 by Deborah Espana ( (Resident)) [facility] Consult-Neurosurgeryon 11-13 Consult-Neurosurgery Service: Service: Neurosurgery Consult: Consult requested by [...] until after the holidays. Initially evaluated at [facility]. Neurosurgery consulted for spinal mets. Course at [facility] Per records, she presented to the ER at [facility] on 11/11/18 with intractable back pain/ [...] No pronator drift, neg Hoffmanns BicepTricepWflWexGrip Intr [id number] [id number] Sensation grossly intact Normoreflexic, no clonus, no [...] MD Resident Physician Department of Neurological Surgery [facility] [email or web address] Neurosurgery Pager: [phone] Personal Pager: [phone] Signature/Cosignature/Attes tation: Attending AttestationI saw and evaluated the patient. [...] Further recs pending the above. Electronic Signatures: Fartun Tamayo) (Signed 13-Nov-2018 14:56) Authored: Service, Assessment/Recommendations, Signature/Cosignature/Attes tation Co-Signer: Service, History of Present Illness, Allergies, Assessment/Recommendations, Signature/Cosignature/Attes tation Abiel Markham (Resident)) (Signed 13-Nov-2018 03:31) Authored: Service, History of Present Illness, Allergies, Assessment/Recommendations, Signature/Cosignature/Attes tation Last Updated: 13-Nov-2018 14:56 by Fartun Tamayo) Normal [facility] Consult-Pulmonologyon 2017 Consult-Pulmonology Service: Service: Pulmonology Consult: Consult requested by (Attending Name): Emil Reason: Evaluate for bronchoscopic biopsy History of Present Illness: HPI: 73 year old woman with HTN, hypothyroidism, DM presenting to [facility] 11/11 for 2 weeks of intracatable [...] lisinopril: Other Objective: Objective Information: T PRBPSpO2 [id number]/6895% Date/Time11/13 15: 15: 15: 15: 15:27 Range(36.3C [...] dry no rash Medications: Medications: Continuous Medications ----- No continuous medications are active Scheduled Medications ----- 1. Gadobenate Dimeglumine (MultiHance-Radiology Contrast): 22.64 mL IntraVenous Push Once 2. Heparin SubCutaneous: 5000 unit(s) SubCutaneous Every 8 Hours 3. hydroCHLOROthiazide: 12.5 mg Oral Daily 4. Levothyroxine: 50 microgram(s) Oral Daily 5. Polyethylene Glycol: 17 gram(s) Oral 2 Times a Day 6. Simvastatin: 20 mg Oral At Bedtime PRN Medications ----- 1. HYDROmorphone Injectable: 0.2 mg IntraVenous Push [...] T3-4, T4-5, T5-6, T6-7, T7-8, T8-9, T9-10, T10-11, T11-12: There is abnormal signal within the [...] next week. -f/u cytology from thoracentesis at [facility]. Even if positive, will likely need more tissue for genetic analysis. Will continue to follow, call consult pager [phone] with any questions Signature/Cosignature/Attes tation: Attending AttrobertI saw and evaluated the patient. I personally [...] Jane Lewis) (Signed 03-Dec-2018 22:17) Authored: Assessment/Recommendations, Signature/Cosignature/Attes clifford Co-Signer: Service, History of Present Illness, Allergies, Objective, Assessment/Recommendations Linda Gomez (Fellow)) (Signed 13-Nov-2018 16:52) Authored: Service, History of Present Illness, Allergies, Objective, Assessment/Recommendations Last Updated: 03-Dec-2018 22:17 by Jane Lewis) [facility] Discharge Planning Noteon Discharge Planning Note Discharge Needs Assessment: Discharge Planning Assessment [id number] Discharge Planning Assessment Completed byMariposa FINNEY OB Information: Reason for admission this visitlate complication Patient Learning: Factors that Impact Ability to Learnhearing problems(1) Other Factors: Functional Screen: In the recent/past 2-4 weeks, patient or family have noticedno issues that require a rehabilitation consult at this time(2) Discharge Planning: Discharge Plannin11/12/2018 2300 [facility]. vital signs stable. pt admitted for mass found on lung and neuro consult. pt lives at home with . pt accompanied by granddaughter. pt plans to return to home with no home care after treatment and testing. Linda Kline RN 11/15/18 Manager Pacu Note 1230 Met with patient's family regarding discharge planning and home going needs. Per family, they live at home with spouse. Patient's primary support person during hospitalization is Kin Hunt [phone]. Bother daughters provided contact information as well. Nikki Wilkes( [phone]) and Annita Sin( [phone]). Patient states they are independent with ADL's [...] able to afford/obtain medications. Patient uses [facility] for prescriptions. Patient's PCP is Dr. Braswell in [place], [place]. Verified patient's address and contact information. Discharge disposition is unknown pending Cance workup. Family states they will provide transportation home at time of discharge. Will continue to follow and will update accordingly. Janeth Mayo RNmarketing systems manager Coordinator pager# [phone] 11/19/17 12:23pm SOCIAL WORK NOTE VIRTUALIZATION ARCHITECT spoke with the patient's FAMILY PROTECTION SPECIALIST on this date who reported that the patient is getting surgery on 11/23. VIRTUALIZATION ARCHITECT will follow up as needed. CANDY Childers, VIRTUALIZATION ARCHITECT pager [phone] Transfer Note 11/24/18 0745 Patient transfered to LT8 room 8066 from the OR. Family at bedside. She came up with a COIN MACHINE MECHANIC pump which is patent, and her drains are intact. Will continue to monitor. Anna Santiago RN 11/24/18 4:18pm SOCIAL WORK NOTE VIRTUALIZATION ARCHITECT spoke with the patient's FAMILY PROTECTION SPECIALIST who reported that the patient should be medically ready mid next week. VIRTUALIZATION ARCHITECT will follow up as neede.CANDY Ruano, VIRTUALIZATION ARCHITECT pager [phone] 11/26/18 11:05am SOCIAL WORK NOTE VIRTUALIZATION ARCHITECT spoke with the patient on this date about SNF placement. VIRTUALIZATION ARCHITECT was told by the patient that the was looking into the [facility] or [facility]. VIRTUALIZATION ARCHITECT reported that they were not on the insurance list but that she would try them. VIRTUALIZATION ARCHITECT provided the patient with the insurance list to look over as well. VIRTUALIZATION ARCHITECT spoke with the patient's FAMILY PROTECTION SPECIALIST who reported that the patient could be medically ready on Thursday. VIRTUALIZATION ARCHITECT will follow up as needed. REVISED 4:14PM VIRTUALIZATION ARCHITECT heard back from both facilities and was told that they both currently do [facility] ARCHITECT [facility] in on Thursday. VIRTUALIZATION ARCHITECT will follow up as needed. CANDY Childers, VIRTUALIZATION ARCHITECT pager [phone] 11/29/18 12:26pm SOCIAL WORK NOTE VIRTUALIZATION ARCHITECT spoke with the patient's FAMILY PROTECTION SPECIALIST on this date to discuss discharge. VIRTUALIZATION ARCHITECT was told that the is transitioning to oxycodone and needs an xray done. VIRTUALIZATION ARCHITECT was told that the patient will be ready, pending pain, on Thursday. VIRTUALIZATION ARCHITECT will follow up to see if [facility] or [facility] has a bed. VIRTUALIZATION ARCHITECT will also discuss having the patient pick other options just in case. VIRTUALIZATION ARCHITECT will follow up as needed. CANDY Childers, SHARON pager [phone] 11/30/18 9:25am SOCIAL WORK NOTE (LATE ENTRY) VIRTUALIZATION ARCHITECT spoke with the patient and daughter yesterday afternoon (11/29) and explained to them that there are currently no beds available at [facility]. Patient's daughter reported that the only facility that they would be willing to go to is [facility]. VIRTUALIZATION ARCHITECT reported that she would call them again to see if they have beds. VIRTUALIZATION ARCHITECT called and left a message. VIRTUALIZATION ARCHITECT will follow up as needed. CANDY Childers, SHARON pager [phone] 12/01/18 4:37pm SOCIAL WORK NOTE VIRTUALIZATION ARCHITECT spoke with the patient on this date about SNF placement. VIRTUALIZATION ARCHITECT explained to the patient that [facility]F is unable to accept the patient at this time due to the fact that they do not have a bed available. VIRTUALIZATION ARCHITECT explained this to the patient and that she wouldnt be able to sit in the hospital to wait for a bed to open. VIRTUALIZATION ARCHITECT provided the patient with another list of facilities. Patient asked for referrals to be sent to SNFs around [facility]. VIRTUALIZATION ARCHITECT explained that she would do that, but also asked the patient to pick SNFs on the list that was provided as well. VIRTUALIZATION ARCHITECT will follow up as needed. CANDY Childers, SHARON pager [phone] 12/02/18 2:26pm SOCIAL WORK NOTE VIRTUALIZATION ARCHITECT spoke with the patient and her daughter who reported that they would like to try for a one time contract with [facility]. VIRTUALIZATION ARCHITECT will follow up as needed. REVISED 4:14PM SOCIAL WORK NOTE VIRTUALIZATION ARCHITECT spoke with the patient and daughter and let them know that [facility] reported that the patient would need to pay 50% of the cost since she has no out of network benefits. Patient reported that she wouldnt want to go there. VIRTUALIZATION ARCHITECT provided the patient with an insurance list from [facility] as a searching point and [place]. VIRTUALIZATION ARCHITECT also called [facility] who reported that they do not have a unit there. VIRTUALIZATION ARCHITECT will follow up as needed. CANDY Childers, SHARON pager [phone] 12/03/18 8:39am SOCIAL WORK NOTE VIRTUALIZATION ARCHITECT spoke with the patient and daughter last night 12/02 who reported that they would like the patient to go to [facility]. VIRTUALIZATION ARCHITECT sent a referral. VIRTUALIZATION ARCHITECT called this morning and the admissions reported that they will look over the information to see if they can accept. VIRTUALIZATION ARCHITECT asked them to start precert if they are able to accept. VIRTUALIZATION ARCHITECT will follow up as needed. REVISED 5:01PM SOCIAL WORK NOTE VIRTUALIZATION ARCHITECT spoke with the patient's facility who reported that they obtained precert. VIRTUALIZATION ARCHITECT set up transport for 10pm. VIRTUALIZATION ARCHITECT completed 7000. VIRTUALIZATION ARCHITECT will follow up as needed. Kierra Duque, SHOEBLACK, VIRTUALIZATION ARCHITECT pager [phone] 12/04/18 10:11 Social Work Note Late entry from 04:35. SW received page from [facility] stating patient still had not been picked up for transport scheduled for 12/03 at 22:00. SW spoke with [facility] supervisor evaporator Mahad. Per [facility], service was overwhelmed with emergent cases and provided updated time of 08:00. SW also spoke with [facility] per family request. Company unable to provide transport on 12/04/18. SW will continue to follow. REVISED 08:27- SW spoke with [facility]. [facility] provided updated ETA at 10:00. SW will continue to follow. Leann Stovall, SHOEBLACK, VIRTUALIZATION ARCHITECT [id number] Discharge Note December 04, 2018 1236 pt. discharge to [facility] for rehab via [facility] ambulance. Report called davidson Cohen @ [phone], Gold form faxed to [phone].Buster Bose RN Electronic Signatures: Linda Kline (RN) (Signed 13-Nov-2018 04:58) Authored: Discharge Planning Note Janeth Mayo (SHARMIN) (Signed 15-Nov-2018 15:17) Authored: Discharge Planning Note Buster Bose (SEVERO) (Signed 04-Dec-2018 12:38) Authored: Discharge Planning Note Kierra Duque (OSMAN) (Signed 03-Dec-2018 17:01) Authored: Discharge Planning Note Leann Stovall (OSMAN) (Signed 04-Dec-2018 10:19) Authored: Discharge Planning Note Anna Santiago (RN) (Signed 24-Nov-2018 07:49) Authored: Discharge Planning Note Last Updated: 04-Dec-2018 12:38 by Buster Bose (CN) References: 1. Data Referenced From "5. Education" 11/12/2018 11:35 PM 2. 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 HPI: Trish Hunt is a 73 year old female former smoker w/ PMHx significant for HTN, Impaired Fasting Glucose, Hyperlipidemia, Peripheral Neuropathy, Hypothyroidism, GERD, Morbid Obesity and Recent Spinal Cord Stimulator Implant for Overactive Bladder 08/2018 with removal 10/2018 due to persistent back pain who was transferred to [facility] 11/12/18 from [facility] after presenting there on 11/11/18 with [...] Pulmonary medicine and oncology were consulted at [facility] with a Right Thoracentesis via U/S obtained 11/12/18 for 140 ml of fluid with culture and cytology pending. An MRI of the T spine was obtained and showed the lesion was not compressing the spine but was however in close proximity to the cord, and therefore she was given Decadron with request for transfer to [facility] under Oncology for further evaluation by Neurosurgery. 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 Allergies: sulfa drugs: Unknown Intolerances: codeine: Nausea/Vomiting Medications Prior to Admission: Metformin ER 500 mg po daily Losartan/Hydrochlorothiazid e 50-12.5 mg po daily Hydrochlorothiazide 12.5 mg [...] Sneezing, Swelling Objective: Objective Information: T PRBPSpO2 [id number]/8093% Date/Time11/13 12: 12: 12: 12: 12:01 Range(36.3C [...] lesions, no rashes Medications: Medications: Scheduled Medications ----- 1. Acetaminophen: 975 mg Oral Every 8 Hours 2. Gadobenate Dimeglumine (MultiHance-Radiology Contrast): 22.64 mL IntraVenous Push Once 3. Heparin SubCutaneous: 5000 unit(s) SubCutaneous Every 8 Hours 4. hydroCHLOROthiazide: 12.5 mg Oral Daily 5. Levothyroxine: 50 microgram(s) Oral Daily 6. Simvastatin: 20 mg Oral At Bedtime PRN Medications ----- 1. HYDROmorphone Injectable: 0.2 mg IntraVenous Push [...] Reference Range: STRAW,YELLOW Appearance, Urine CLEAR Specific Clover, Urine 1.017 pH, Urine 6.0 Protein, Urine [...] Stimulating Hormone, Serum 0.86 Radiology Results: Results: [facility] reports: Abdomen/Pelvis CT 11/11/18 IMPRESSION: 1. [...] Cord Stimulator Implant who is transferred to [facility] 11/12/[address] [facility] after presenting with intractable progressive back pain with SOB and found on imaging to have a lung mass with adenopathy and suspected spinal metastasis for neurosurgical evaluation and further care. . PLAN: In Shared Visit with Dr. Neena Grullon 1) SUSPECTED LUNG MALIGNANCY: Former smoker. Reported SOB and chest pain with deep breath at [facility] ER presentation 11/11/18. A CT of the [...] with culture and cytology pending. 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 Presented to [facility] 11/11/18 with intractable progressive back pain [...] A CT Chest, Abdomen and Pelvis at [facility] showed a suspected Pathologic fracture of the [...] given Decadron with request for transfer to [facility] for Neurosurgery evaluation. Neurosurgery consulted and did [...] identified at present - await PT evaluation. ----- PCP: Dr. Emil Braswell [phone] Urology: Dr. Neo Herrera Pharmacy: [facility] ([facility]) [phone] Insurer: [employer] Medicare Family: / POA Healthcare - Kin Hunt [phone] Dtr. / 1st Alt. POA HC - Annita Sin [phone] / [phone] Dtr. / 2nd Alt. POA HC - Dionne Wilkes [phone] Signatures/Attestation/Cert ification: Provider/Team Contact Info-Pager Henryjose Carlos [facility] # [phone] Note Initiator: Do you need to request [...] and spinal mets presenting as transfer from [facility] for neurosurgery evaluation and further care. Course at [facility] patient was having back pain for almost six months . Per records, she presented to the ER at [facility] on 11/11/18 with intractable back pain/ [...] surgery. Patient was accepted to by Dr. Mario Rush/Onc for transfer. At baseline, patient is [...] (Vitamin D3) [D3-2000] 2,000 unit PO DAILY Losartan/Hydrochlorothiazid e [Losartan-Hctz 50-12.5 mg Tab] 1 tab PO [...] HLD, presenting as transfer from [facility] after initially presenting there with subacute [...] of care, and discharge plan. Electronic Signatures: Palcisko, Nessa (DEFENCE INTELLIGENCE ANALYST-FAMILY PROTECTION SPECIALIST) (Signed 13-Nov-2018 23:29) Authored: History of Present Illness, Comorbidities, Family History, Social History, Allergies, Medications Prior to Admission, Review of Systems, Objective, Assessment and Plan, Signatures/Attestation/Cert ification Neena Grullon) (Signed 13-Nov-2018 16:34) Authored: Signatures/Attestation/Cert ification Last Updated: 13-Nov-2018 23:29 by Nessa Carlos (DEFENCE INTELLIGENCE ANALYST-FAMILY PROTECTION SPECIALIST) Normal [facility] LDHon 11-13-2018 LDH 401 U/L High 84 - 246 [facility] Comment on above: Performed By: #### L #### [facility] [address] [place] [address] Patient Profile - Adult v2on 11-13-2018 Protein mass conc Profile: Initial Info: How to be AddressedBetty Spoken Language PreferredEnglish Are you currently using the Personal Electronic Health Record or [facility] [employer] Are you interested in learning more about [facility] for the management of your healthdeclined Stated Reason for Admissioncancer in lungs Arrived Fromhospital Patient Belongingsremains with patient Medications Brought to Hospitalno General Health: Weight in kg113.2 kilogram(s) Weight in zqy215.6 pound(s) Height in feet5 feet Height in [...] Withspouse Living Arrangementshouse Resource/Environmental Concernsnone Anticipated Transition [place] Anticipated at Transitionnone Significant IndicatorsComplete Information Review: Allergies, Home Meds and Significant Events have been Reviewed and Verified with Patient/Familyno ALLERGY, INTOLERANCE, ADVERSE EVENT: Allergies: codeine: Drug, Other, Active lisinopril: Drug, Other, Active sulfa drugs: Drug Category, Unknown, Active Electronic Signatures: Linda Kline) (Signed 13-Nov-2018 04:40) Authored: Profile, Additional Information Last Updated: 13-Nov-2018 04:40 by Linda Kline (SHARMIN) Normal [facility] RENAL FUNCTION PANELon 11-13 Calcium mass conc 9.1 mg/dL Normal 8.6 - 10.6 [facility] Comment on above: Performed By: #### C BCDF #### [facility] [address] [place] [address] Albumin mass conc 3.7 g/dL Normal 3.4 - 5.0 [facility] Comment on above: Performed By: #### C BCDF #### [facility] [address] [place] [address] Anion gap molar conc 15 mmol/L Normal 10 - 20 [facility] Comment on above: Performed By: #### C BCDF #### [facility] [address] [place] [address] Chloride molar conc 107 mmol/L Normal 98 - 107 [facility] Comment on above: Performed By: #### C BCDF #### [facility] [address] [place] [address] Creatinine mass conc 1.17 mg/dL High 0.50 - 1.05 [facility] Comment on above: Performed By: #### C BCDF #### [facility] [address] [place] [address] GFR- AM. 54 mL/min/1.73m2 Abnormal >60 [facility] Comment on above: Result Comment: CALC ULATIONS OF ESTIMATED GFR ARE PERFORMED USING THE MDRD STUDY EQUATION FOR THE IDMS-TRACEABLE CREATININE METHODS. CLIN CHEM 2007;53:766-72 Performed By: #### C BCDF #### [facility] [address] [place] [address] GFR-NON AM. 45 mL/min/1.73m2 Abnormal >60 [facility] Comment on above: Performed By: #### C BCDF #### [facility] [address] [place] [address] Glucose mass conc 158 mg/dL High 74 - 99 [facility] Comment on above: Performed By: #### C BCDF #### [facility] [address] [place] [address] HCO3 molar conc (Bld) 23 mmol/L Normal 21 - 32 [facility] Comment on above: Performed By: #### C BCDF #### [facility] [address] [place] [address] Phosphate mass conc 3.7 mg/dL Normal 2.5 - 4.9 [facility] Comment on above: Result Comment: The performance characteristics of phosphorus testing in heparinized plasma have been validated by the individual laboratory site where testing is performed. Testing on heparinized plasma is not approved by the FDA; however, such approval is not necessary. Performed By: #### C BCDF #### [facility] [address] [place] [address] Potassium molar conc 4.7 mmol/L Normal 3.5 - 5.3 [facility] Comment on above: Result Comment: MILD HEMOLYSIS DETECTED. The result may be falsely elevated due to hemolysis or other interferents. Clinical correlation is recommended. Repeat testing may be considered. Performed By: #### C BCDF #### [facility] [address] [place] [address] Sodium molar conc 140 mmol/L Normal 136 - 145 [facility] Comment on above: Performed By: #### C BCDF #### [facility] [address] [place] [address] Urea nitrogen mass conc 22 mg/dL Normal 6 - 23 [facility] Comment on above: Performed By: #### C BCDF #### [facility] [address] [place] [address] TH CHEST 1 VIEWon 11-13-2018 TH CHEST 1 VIEW Patient Name: TRISH HUNT STUDY: TH CHEST 1 VIEW; 11/13/2018 4:53 am INDICATION: Signs/Symptoms: Right pleural effusion, adenopathy, lung ca. COMPARISON: None. ACCESSION NUMBER(S): [id number] ORDERING CLINICIAN: SAGE RAPHAEL FINDINGS: CARDIOMEDIASTINAL SILHOUETTE: [...] effusion. Electronically signed by: Dashawn MARCOS MD Normal [facility] TSHon 11-13-2018 Thyrotropin Qn 0.86 m[IU]/L Normal 0.44 - 3.98 [facility] Comment on above: Result Comment: TSH testing is performed using different testing methodology at [facility] than at other [facility]. Direct result comparisons should only be made within the same method. . Patients receiving more than 5 mg/day of biotin may have interference in test results. A sample should be taken no sooner than eight hours after previous dose. Contact [phone] for additional information. Performed By: #### T SH2 #### [facility] [address] [place] [id number] URINALYSISon 11-13-2018 Appearance Nom (U) CLEAR Normal CLEAR [facility] Comment on above: Performed By: #### U A #### [facility] [address] [place] [address] Bilirubin mass conc Negative Normal NEGATIVE [facility] Comment on above: Performed By: #### U A #### [facility] [address] [place] [address] BLOOD Negative Normal NEGATIVE [facility] Comment on above: Performed By: #### U A #### [facility] [address] [place] [address] Color Nom (U) YELLOW Normal STRAW,YELL OW [facility] Comment on above: Performed By: #### U A #### [facility] [address] [place] [address] Glucose mass conc Negative Normal NEGATIVE [facility] Comment on above: Performed By: #### U A #### [facility] [address] [place] [address] Ketones Ql (U) Negative Normal NEGATIVE [facility] Comment on above: Performed By: #### U A #### [facility] [address] [place] [address] Leukocyte esterase Test strip Ql (U) Negative Normal NEGATIVE [facility] Comment on above: Performed By: #### U A #### [facility] [address] [place] [address] Nitrite Ql (U) Negative Normal NEGATIVE [facility] Comment on above: Performed By: #### U A #### [facility] [address] [place] [address] pH (Bld) 6.0 Normal 5.0 - 8.0 [facility] Comment on above: Performed By: #### U A #### [facility] [address] [place] [address] Protein mass conc (U) Negative Normal NEGATIVE [facility] Comment on above: Performed By: #### U A #### [facility] [address] [place] [address] Specific gravity Relative Density (U) 1.017 Normal 1.005 - 1.035 [facility] Comment on above: Performed By: #### U A #### [facility] [address] [place] [address] Urobilinogen Qn (U) <2.0 Normal 0.0 - 1.9 [facility] Comment on above: Performed By: #### U A #### [facility] [address] [place] [address] Vital Signs Date Time Vital Sign Value Performing Clinician Facility 07-11-2025 15:37-0400 Diastolic blood pressure 80 mm[Hg] Ruba Trujillo APRN.FAMILY PROTECTION SPECIALIST Work Phone: [facility] 07-11-2025 15:37-0400 Heart rate 93 /min Ruba Trujillo APRN.FAMILY PROTECTION SPECIALIST Work Phone: [facility] 07-11-2025 15:37-0400 Systolic blood pressure 142 mm[Hg] Ruba Trujillo DEFENCE INTELLIGENCE ANALYST.FAMILY PROTECTION SPECIALIST Work Phone: [facility] 07-11-2025 15:04-0400 Respiratory rate 16 /min Ruba Trujillo DEFENCE INTELLIGENCE ANALYST.FAMILY PROTECTION SPECIALIST Work Phone: [facility] 07-04-2025 14:53-0400 Body height 160.[address] Emil Braswell MD Work Phone: [facility] 07-04-2025 14:53-0400 Body mass index (BMI) [Ratio] 33.6 kg/m2 Dr. Emil Braswell MD Work Phone: 6(624)784-162095 [place] [address] 07-04-2025 14:53-0400 Body weight 86.[address] Emil Braswell MD Work Phone: 7(180)036-535095 [place] [address] 07-04-2025 14:53-0400 Diastolic blood pressure 84 mm[Hg] Dr. Emil Braswell MD Work Phone: 7(144)572-678717 [place] [address] 07-04-2025 14:53-0400 Heart rate 109 /min Dr. Emil Braswell MD Work Phone: [facility] 07-04-2025 14:53-0400 Systolic blood pressure 150 mm[Hg] Dr. Emil Braswell MD Work Phone: [facility] 06-13-2025 12:54-0400 Body temperature 98.01 [degF] Reva Wasserman DEFENCE INTELLIGENCE ANALYST.FAMILY PROTECTION SPECIALIST Work Phone: [facility] 06-13-2025 12:54-0400 Diastolic blood pressure 68 mm[Hg] Reva Wasserman DEFENCE INTELLIGENCE ANALYST.FAMILY PROTECTION SPECIALIST Work Phone: [facility] 06-13-2025 12:54-0400 Heart rate 96 /min Reva Supplevi DEFENCE INTELLIGENCE ANALYST.FAMILY PROTECTION SPECIALIST Work Phone: [facility] 06-13-2025 12:54-0400 SaO2% (BldA) [Mass fraction] 92 % Reva Supplevi DEFENCE INTELLIGENCE ANALYST.FAMILY PROTECTION SPECIALIST Work Phone: [facility] 06-13-2025 12:54-0400 Systolic blood pressure 122 mm[Hg] Reva Wasserman DEFENCE INTELLIGENCE ANALYST.FAMILY PROTECTION SPECIALIST Work Phone: [facility] 05-30-2025 14:56-0400 Body height 160.[address] Emil Braswell MD Work Phone: 4(367)239-099395 [place] [address] 05-30-2025 14:56-0400 Body mass index (BMI) [Ratio] 33.6 kg/m2 Dr. Emil Braswell MD Work Phone: 8(002)246-066034 [place] [address] 05-30-2025 14:56-0400 Body temperature 98.4 [degF] Dr. Emil Braswell MD Work Phone: 4(034)711-617834 [place] [address] 05-30-2025 14:56-0400 Body weight 86.[address] Emil Braswell MD Work Phone: 1(551)045-849334 [place] [address] 05-30-2025 14:56-0400 Diastolic blood pressure 84 mm[Hg] Dr. Emil Braswell MD Work Phone: 3(138)703-331795 [place] [address] 05-30-2025 14:56-0400 Heart rate 95 /min Dr. Emil Braswell MD Work Phone: 4(213)942-734895 [place] [address] 05-30-2025 14:56-0400 Respiratory rate 18 /min Dr. Emil Braswell MD Work Phone: 9(399)517-570795 [place] [address] 05-30-2025 14:56-0400 SaO2% (BldA) [Mass fraction] 88 % Dr. Emil Braswell MD Work Phone: 7(333)266-383295 [place] [address] 05-30-2025 14:56-0400 Systolic blood pressure 167 mm[Hg] Dr. Emil Braswell MD Work Phone: 2(634)746-309195 [place] [address] 05-23-2025 15:31-0400 Body mass index (BMI) [Ratio] 34.16 kg/m2 Ruba Trujillo DEFENCE INTELLIGENCE ANALYST.FAMILY PROTECTION SPECIALIST Work Phone: [facility] 05-23-2025 15:31-0400 Body weight 90.27 kg Ruba Haagen DEFENCE INTELLIGENCE ANALYST.FAMILY PROTECTION SPECIALIST Work Phone: [facility] 05-23-2025 14:49-0400 Diastolic blood pressure 86 mm[Hg] Ruba Haagen DEFENCE INTELLIGENCE ANALYST.FAMILY PROTECTION SPECIALIST Work Phone: [facility] 05-23-2025 14:49-0400 Heart rate 93 /min Ruba Haagen DEFENCE INTELLIGENCE ANALYST.FAMILY PROTECTION SPECIALIST Work Phone: [facility] 05-23-2025 14:49-0400 Respiratory rate 16 /min Ruba Haagen DEFENCE INTELLIGENCE ANALYST.FAMILY PROTECTION SPECIALIST Work Phone: [facility] 05-23-2025 14:49-0400 SaO2% (BldA) [Mass fraction] 96 % Ruba Haagen DEFENCE INTELLIGENCE ANALYST.FAMILY PROTECTION SPECIALIST Work Phone: [facility] 05-23-2025 14:49-0400 Systolic blood pressure 146 mm[Hg] Ruba Haagen DEFENCE INTELLIGENCE ANALYST.FAMILY PROTECTION SPECIALIST Work Phone: [facility] 04-25-2025 14:22-0400 Body mass index (BMI) [Ratio] 32.96 kg/m2 Ruba Haagen DEFENCE INTELLIGENCE ANALYST.FAMILY PROTECTION SPECIALIST Work Phone: [facility] 04-25-2025 14:22-0400 Body weight 87.09 kg Ruba Haagen DEFENCE INTELLIGENCE ANALYST.FAMILY PROTECTION SPECIALIST Work Phone: [facility] 04-25-2025 14:22-0400 Diastolic blood pressure 80 mm[Hg] Ruba Haagen DEFENCE INTELLIGENCE ANALYST.FAMILY PROTECTION SPECIALIST Work Phone: [facility] 04-25-2025 14:22-0400 Heart rate 98 /min Ruba Haagen DEFENCE INTELLIGENCE ANALYST.FAMILY PROTECTION SPECIALIST Work Phone: [facility] 04-25-2025 14:22-0400 Respiratory rate 16 /min Ruba Haagen DEFENCE INTELLIGENCE ANALYST.FAMILY PROTECTION SPECIALIST Work Phone: [facility] 04-25-2025 14:22-0400 SaO2% (BldA) [Mass fraction] 91 % Ruba Haagen DEFENCE INTELLIGENCE ANALYST.FAMILY PROTECTION SPECIALIST Work Phone: [facility] 04-25-2025 14:22-0400 Systolic blood pressure 152 mm[Hg] Ruba Haagen DEFENCE INTELLIGENCE ANALYST.FAMILY PROTECTION SPECIALIST Work Phone: [facility] 03-08-2024 22:40-0400 Body temperature 98.2 [degF] [facility] 03-08-2024 22:40-0400 Diastolic blood pressure 65 mm[Hg] [facility] 03-08-2024 22:40-0400 Heart rate 86 /min [facility] 03-08-2024 22:40-0400 Respiratory rate 16 /min [facility] 03-08-2024 22:40-0400 SaO2% (BldA) [Mass fraction] 93 % [facility] 03-08-2024 22:40-0400 Systolic blood pressure 154 mm[Hg] [facility] 03-08-2024 17:49-0400 Body mass index (BMI) [Ratio] 36.3 kg/m2 [facility] 03-08-2024 17:49-0400 Body weight 92.98 kg [facility] 03-08-2024 17:32-0400 Body height 160.02 cm [facility] 02-17-2024 13:23-0400 Body weight 94.35 kg Ruba Halinh DEFENCE INTELLIGENCE ANALYST.FAMILY PROTECTION SPECIALIST Work Phone: [facility] 02-17-2024 13:23-0400 Diastolic blood pressure 82 mm[Hg] Ruba Haagen DEFENCE INTELLIGENCE ANALYST.FAMILY PROTECTION SPECIALIST Work Phone: [facility] 02-17-2024 13:23-0400 Heart rate 101 /min Ruba Haagen DEFENCE INTELLIGENCE ANALYST.FAMILY PROTECTION SPECIALIST Work Phone: [facility] 02-17-2024 13:23-0400 Respiratory rate 16 /min Ruba Haagen DEFENCE INTELLIGENCE ANALYST.FAMILY PROTECTION SPECIALIST Work Phone: [facility] 02-17-2024 13:23-0400 SaO2% (BldA) [Mass fraction] 93 % Ruba Halinh DEFENCE INTELLIGENCE ANALYST.FAMILY PROTECTION SPECIALIST Work Phone: [facility] 02-17-2024 13:23-0400 Systolic blood pressure 146 mm[Hg] Ruba Haagen DEFENCE INTELLIGENCE ANALYST.FAMILY PROTECTION SPECIALIST Work Phone: [facility] 2023 13:26-0400 Body weight 92.07 kg [facility] 02-25-2023 13:120400 Body height 162.6 cm Emil Braswell MD Work Phone: [facility] 02-25-2023 13:120400 Body weight 90.27 kg Emil Braswell MD Work Phone: [facility] 02-25-2023 13:120400 Diastolic blood pressure 68 mm[Hg] Emil Braswell MD Work Phone: [facility] 02-25-2023 13:120400 Heart rate 95 /min Emil Braswell MD Work Phone: [facility] 02-25-2023 13:12-0400 SaO2% (BldA) [Mass fraction] 96 % Emil Braswell MD Work Phone: [facility] 02-25-2023 13:120400 Systolic blood pressure 128 mm[Hg] Emil Braswell MD Work Phone: [facility] 11-05-2020 13:55-0500 Body mass index (BMI) [Ratio] 35.2 kg/m2 [facility] 11-05-2020 13:55-0500 Body temperature 97.9 [degF] [facility] 11-05-2020 13:55-0500 Body weight 90.26 kg [facility] 11-05-2020 13:55-0500 Diastolic blood pressure 77 mm[Hg] [facility] 11-05-2020 13:55-0500 Heart rate 95 /min [facility] 11-05-2020 13:55-0500 Respiratory rate 14 /min [facility] 11-05-2020 13:55-0500 SaO2% (BldA) [Mass fraction] 98 % [facility] 11-05-2020 13:55-0500 Systolic blood pressure 167 mm[Hg] [facility] 11-23-2018 16:06-0500 Body temperature 37.0 degrees C [facility] Comment on above: Result Comment: NOTE: PATIENT RESULTS AR E NOT CORRECTED FOR TEMPERATURE. Performed By: #### B LGA1 ####[id number] [place] [address] 11-23-2018 14:30-0500 Body temperature 37.0 degrees C [facility] Comment on above: Result Comment: NOTE: PATIENT RESULTS AR E NOT CORRECTED FOR TEMPERATURE. Performed By: #### T SH2 #### [facility] [address] [place] [address] Encounters Encounter Date Encounter Type Care Provider Facility Start: 09-28-2025 ambulatory [facility] Facility:[facility] Start: 09-27-2025 ambulatory Alexandro Mathews Fac ility:[facility] Start: 09-27-2025 Evaluation and manag ement of inpatient Alexandro Akhil Mathews Facility:[facility] Start: 08-22-2025 ambulatory [facility] Facility:[facility] Start: 08-09-2025 End: 08-09-2025 ambulatory [facility] Facility:[facility] Start: 07-11-2025 End: 07-11-2025 Office outpatient visit 25 minutes Ruba Trujillo APRN.FAMILY PROTECTION SPECIALIST Work Phone: [facility] Comment on above: Primary osteoarthrit is, right hand; Primary osteoarthritis of left hand Start: 07-11-2025 End: 07-11-2025 ambulatory [facility] Facility:[facility] Start: 07-04-2025 End: 07-04-[address] Yolanda Ash MD -[facility] Work Phone: Start: 07-04-2025 End: 07-04-[address] Emil Braswell MD Work Phone: -[facility] Start: 06-15-2025 End: 06-16-2025 Follow-up encounter Reva Wasserman APRN.FAMILY PROTECTION SPECIALIST Work Phone: [facility] Start: 06-13-2025 End: 06-13-2025 Subsequent hospital visit by physician Kike [facility] Work Phone: Radiology Comment on above: Bilateral hand pain [M79.641, M79.642] Start: 06-13-2025 End: 06-13-2025 ambulatory REVA Celia DENISE Facility:[facility] Start: 06-13-2025 End: 06-13-2025 Office outpatient visit 25 minutes Reva Wasserman APRN.FAMILY PROTECTION SPECIALIST Work Phone: [facility] Comment on above: Bilateral hand pain (Primary Dx); Screening for depression; Encounter for screening examination for other mental health and behavioral disorders; Mixed hyperlipidemia; Essential hypertension; Adenocarcinoma of right lung (HCC); Hypomagnesemia; Hypokalemia Start: 06-13-2025 End: 06-13-2025 ambulatory REVA Celia DENISE Facility:[facility] Start: 06-01-2025 End: 06-02-2025 Telephone encounter Emil Braswell MD Work Phone: [facility] Comment on above: Patient Update Start: 05-31-2025 End: 07-14-2025 Telephone encounter Ruba Trujillo APRN.FAMILY PROTECTION SPECIALIST Work Phone: [facility] Comment on above: Patient Update (Dr. Gates's note 05/30/25) Start: 05-30-[address] Arthur Gates MD -[facility] Start: 05-30-2025 End: 05-30-[address] Arthur Gates MD -[facility] Work Phone: Start: 05-30-2025 End: 05-30-[address] Emil Braswell MD Work Phone: [facility] Start: 05-26-2025 End: 05-26-2025 Follow-up encounter Ruba Trujillo APRN.FAMILY PROTECTION SPECIALIST Work Phone: [facility] Comment on above: Results Start: 05-23-2025 End: 05-23-2025 Office outpatient visit 25 minutes Ruba Trujillo APRN.FAMILY PROTECTION SPECIALIST Work Phone: [facility] Comment on above: Primary osteoarthrit is of both hands (Primary Dx); Weight loss; Malignant neoplasm of unspecified part of right bronchus or lung (HCC); Abnormal urine findings Start: 05-23-2025 End: 05-23-2025 ambulatory [facility] Facility:[facility] Start: 05-16-2025 Non-patient / Non-visit Dr. 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); Adenocarcinoma of right lung (HCC) Start: 05-04-2025 End: 05-04-2025 Subsequent hospital visit by physician [facility] ([facility]) Work Phone: Cat Scan Comment on above: Weight loss [R63.4] Start: 05-02-2025 End: 05-03-2025 Telephone encounter Eneida Yarbrough DO Work Phone: Hematology/Oncology Comment on above: Appointment Start: 04-26-2025 End: 04-26-2025 Follow-up encounter Ruba Trujillo APRN.FAMILY PROTECTION SPECIALIST Work Phone: [facility] Comment on above: Results Start: 04-25-2025 End: 04-25-2025 [facility] Start: 04-25-2025 End: 04-25-2025 Office outpatient visit 25 minutes Ruba Trujillo APRN.FAMILY PROTECTION SPECIALIST Work Phone: [facility] [place] Comment on above: Abnormal thyroid fun ction test (Primary Dx); Weight loss; Intra-abdominal and pelvic swelling, mass and lump, unspecified site; Adenocarcinoma of right lung (HCC); Bilateral hand pain Start: 04-25-2025 End: 04-25-2025 ambulatory [facility] Facility:[facility] Start: 04-07-2025 End: 06-07-2025 Follow-up encounter Nora Guerrero MD Work Phone: OB/Gynecology Start: 04-07-2025 End: 04-07-2025 ambulatory NORA GUERRERO Facility:[facility] Start: 04-07-2025 End: 04-07-2025 ambulatory NORA GUERRERO Facility:[facility] Start: 03-08-2024 End: 03-08-2024 Emergency department patient visit [facility] Work Phone: Start: 03-08-2024 Telephone encounter Ruba melton APRN.FAMILY PROTECTION SPECIALIST Work Phone: Family [facility] Start: 03-03-2024 End: 03-03-2024 ambulatory Lab/[place] [facility] Work Phone: Hematology/Oncology Comment on above: Malignant neoplasm o f unspecified part of right bronchus or lung (HCC) (Primary Dx) Start: 03-03-2024 End: 03-03-2024 Subsequent hospital visit by physician [facility] ([facility]) Work Phone: Cat Scan Comment on above: Intra-abdominal and pelvic swelling, mass and lump, unspecified site [R19.00] Start: 03-02-2024 Telephone encounter Eneida polk DO Work Phone: Hematology/Oncology Comment on above: Appointment Start: 02-19-2024 Telephone encounter Ruba melton APRN.FAMILY PROTECTION SPECIALIST Work Phone: Family [facility] Comment on above: Results Start: 02-17-2024 End: 02-17-2024 Office outpatient visit 25 minutes Ruba Trujillo APRN.FAMILY PROTECTION SPECIALIST Work Phone: Family [facility] Comment on above: Swelling (Primary Dx ); Intra-abdominal and pelvic swelling, mass and lump, unspecified site; Swelling abdomen; Type 2 diabetes mellitus without complication, without long-term current use of insulin (HCC); Hypothyroidism, unspecified type Start: 02-16-2024 End: 02-16-2024 ambulatory Emil Braswell MD Work Phone: Family [facility] Comment on above: Nurse Triage Call; b ilateral leg swelling leg swelling. Start: 02-10-2024 Registered Recurring [facility] Start: 05-25-2023 End: 05-25-[address] [facility] Work Phone: Start: 05-25-2023 End: 05-25-2023 [facility] Start: 04-23-2023 Registered Recurring [facility] Start: 03-05-2023 Telephone encounter Emil Braswell MD Work Phone: [facility] Comment on above: Patient Update Start: 02-27-2023 Telephone encounter Emil Braswell MD Work Phone: [facility] Comment on above: Results Start: 02-25-2023 End: 02-25-2023 Patient encounter procedure Emil Braswell MD Work Phone: [facility] Comment on above: Essential hypertensi on (Primary Dx); Mixed hyperlipidemia; Adenocarcinoma of right lung (HCC); Thoracic spine tumor; Type 2 diabetes mellitus without complication, without long-term current use of insulin (HCC); Hypothyroidism, unspecified type; Constipation, unspecified constipation type; Dysuria; Microscopic hematuria; Foot pain, bilateral; Urge incontinence; Simple chronic bronchitis (HCC); Peripheral vascular disease, unspecified (HCC) Start: 05-26-2022 End: 05-26-2022 Patient encounter procedure [facility] Start: 04-28-2022 Registered [facility] [place] [facility] Start: 12-11-2020 End: 12-11-2020 Orders Only Mahad Azevedo Work Phone: [facility] Start: 12-10-2018 Patient encounter procedure Lucho Fiore Facility:[facility] Start: 12-10-2018 End: 12-10-2018 Patient encounter procedure Lucho Fiore Work Phone: [facility] Start: 06-29-2014 End: 12-27-2016 Patient encounter procedure Ruba Trujillo DEFENCE INTELLIGENCE ANALYST.FAMILY PROTECTION SPECIALIST Work Phone: [facility] Procedures Date Procedure Procedure Detail Performing Clinician Start: 06-13-2025 Adult depression scr eening assessment Reva Wasserman DEFENCE INTELLIGENCE ANALYST.FAMILY PROTECTION SPECIALIST Work Phone: Start: 05-30-[address] Emil Braswell MD Work Phone: Start: 05-26-[address] Emil Braswell MD Work Phone: Start: 05-26-2024 Measurement of renal function Dr. Emil Braswell MD Work Phone: Comment on above: GFR Calc Start: 05-26-2024 Total iron binding capacity measurement Dr. Emil Braswell MD Work Phone: Start: 03-08-2024 CT of thorax with contrast Start: 05-25-2023 CT of thorax with contrast Start: 02-25-2023 Urnls dip stick/tabl et rgnt auto w/o microscopy Emil Braswell MD Work Phone: Start: 05-26-2022 CT of thorax with contrast Start: 01-23-2020 PET/CT Tumor Base -T high Subs Start: 10-31-[address] Emil Braswell MD Work Phone: Start: 10-24-2019 Allergen spec ige cr ude allergen extract each Dr. Emil Braswell MD Work Phone: Start: 05-09-2019 PET/CT Tumor Base -T high Subs Start: 12-10-2018 Basic metabolic 2000 panel - Serum or Plasma Lucho Fiore Work Phone: Start: 12-10-2018 Complete blood count with white cell differential, manual Lucho Fiore Work Phone: Start: 11-22-2018 Antibody screen Comment on above: Performed By: #### T +S [id number] [place] [address] Plan of Treatment Date Care Activity Detail Author Start: 08-02-2028 Urine microalbumin profile [facility] Start: 06-13-2026 Anxiety Screening Anxiety Screening [facility] Start: 06-13-2026 Depression Screening Depression Scre ening [facility] Start: 06-13-2026 Diabetic foot examination Diabetic F oot Exam [facility] Start: 06-13-2026 Hepatitis B surface antibody level LDL Cholesterol [facility] Start: 03-14-2026 Glaucoma screening Dilated Retinal E xam [facility] Start: 10-26-2025 End: 01-25-2026 Thyrotropin [Units/volume] in Serum or Plasma THYROID STIMULATING HORMONE Lab Routine Abnormal thyroid function test Expected: 10/26/2025, Expires: 01/25/2026 [facility] Work Phone: Comment on above: Expected: 10/26/2025 , Expires: 01/25/2026 Start: 10-26-2025 End: 01-25-2026 Thyroxine (T4) free [Mass/volume] in Serum or Plasma T4 FREE/FREE THYROXINE Lab Routine Abnormal thyroid function test Expected: 10/26/2025, Expires: 01/25/2026 [facility] Comment on above: Expected: 10/26/2025 , Expires: 01/25/2026 Start: 10-08-2025 Hemoglobin A1c measurement HbA1C [facility] Start: 10-02-2025 End: 10-02-2025 Patient encounter procedure 10/02/2025 1:00 PM EST Office Visit [facility] [address] [place], [place] [id number] Ruba Trujillo, DEFENCE INTELLIGENCE ANALYST.FAMILY PROTECTION SPECIALIST [address] [place] [address] 3 month follow up [facility] Comment on above: 3 month follow up Start: 07-17-2025 Influenza vaccination Influenza Vacc ine (#1) [facility] Start: 07-11-2025 End: 07-11-2025 Patient encounter procedure 07/11/2025 1:00 PM EDT Office Visit [facility] [address] [place] [address] Ruba Trujillo, DEFENCE INTELLIGENCE ANALYST.FAMILY PROTECTION SPECIALIST [address] [place] [address] 4 week followup [facility] Comment on above: 4 week followup Start: 06-13-2025 End: 09-12-2025 Basic metabolic 2000 panel - Serum or Plasma [facility] Work Phone: Comment on above: Expected: 06/13/2025 , Expires: 09/12/2025 Start: 06-13-2025 End: 09-12-2025 Creatine kinase [Enzymatic activity/volume] in Serum or Plasma [facility] Comment on above: Expected: 06/13/2025 , Expires: 09/12/2025 Start: 06-13-2025 End: 09-12-2025 LIPID PANEL, NONFASTING [facility] Comment on above: Expected: 06/13/2025 , Expires: 09/12/2025 Start: 06-13-2025 End: 09-12-2025 Magnesium [Mass/volume] in Serum or Plasma [facility] Comment on above: Expected: 06/13/2025 , Expires: 09/12/2025 Start: 06-13-2025 End: 09-12-2025 Nuclear Ab [Presence] in Serum by Immunoassay [facility] Comment on above: Expected: 06/13/2025 , Expires: 09/12/2025 Start: 06-13-2025 End: 09-12-2025 Rheumatoid factor [Units/volume] in Serum or Plasma [facility] Comment on above: Expected: 06/13/2025 , Expires: 09/12/2025 Start: 05-30-2025 [facility] Start: 05-23-2025 End: 05-23-2025 Patient encounter procedure 05/23/2025 3:00 PM EDT Office Visit [facility] [address] [place] [address] Ruba Trujillo APRN.FAMILY PROTECTION SPECIALIST [address] [place] [address] 1 sridhar follow up - 40 min per [facility] [place] Comment on above: 1 sridhar follow up - 4 0 min per Start: 05-04-2025 End: 05-04-2025 Patient encounter procedure Cat Scan Comment on above: Dx: Weight loss [R63 .4]; Intra-abdominal and pelvic swelling, mass and lump, unspecified site [R19.00]; 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] Start: 05-04-2025 End: 05-04-2025 ambulatory 05/04/2025 2:00 PM EDT [facility] Hematology/Oncology [address] [place] [address] Wstr, Lab/[place] [facility] [address] [place] [address] PORT ACCESS FOR IMAGING Hematology/Oncology Comment on above: PORT ACCESS FOR IMAG ING Start: 04-26-2025 End: 07-26-2025 Bacteria identified in Urine by Culture BACTERIAL CULTURE, URINE Microbiology Routine Abnormal urine findings Expected: 04/26/2025, Expires: 07/26/2025 [facility] Comment on above: Expected: 04/26/2025 , Expires: 07/26/2025 Start: 04-25-2025 End: 04-25-2026 Hemoglobin.gastrointestina l.lower [Presence] in Stool by Immunoassay IMMUNOCHEMICAL FECAL OCCULT BLOOD TEST Lab Routine Weight loss Expected: 04/25/2025, Expires: 04/25/2026 [facility] Work Phone: Comment on above: Expected: 04/25/2025 , Expires: 04/25/2026 Start: 02-16-2025 Annual PCP Team Dental Appliance Mechanic jose Disease Visit Annual PCP Team Chronic Disease Visit [facility] Start: 11-16-2024 Advance Directive Discussion Advance Directive Discussion [facility] Start: 11-16-2024 Medicare Advantage A nnual Wellness Visit Medicare Advantage Annual Wellness Visit [facility] Start: 11-09-2024 Covid-19 Vaccine ( season) Covid-19 Vaccine ( season) [facility] Start: 08-18-2024 Hemoglobin A1c measurement HbA1C [facility] Start: 07-17-2024 Influenza vaccination Influenz a Vaccine (Season Ended) [facility] Start: 03-08-2024 Venous catheter care management [facility] Start: 03-08-2024 [facility] Start: 02-26-2024 3 comp foot exam completed DIABETIC FOOT EXAM [facility] Start: 02-26-2024 ANNUAL PCP TEAM ANTHROPOLOGICAL LINGUIST JOSE DISEASE VISIT ANNUAL PCP TEAM CHRONIC DISEASE VISIT [facility] Start: 02-26-2024 BP CONTROLLED (<130/80) BP CONTROLLE D (<130/80) [facility] Start: 02-26-2024 Diabetic foot examination Diabetic F oot Exam [facility] Start: 02-26-2024 Hepatitis B surface antibody level LDL CHOLESTEROL [facility] Start: 02-26-2024 Pneumococcal Vaccine : 65+ (2 of 2 - PCV) Pneumococcal Vaccine: 65+ (2 of 2 - PCV) [facility] Comment on above: Postponed from 08/01 (Declined at this time) Start: 02-26-2024 PNEUMOCOCCAL: 65+ (2 - PCV) PNEUMOCOCCAL: 65+ (2 - PCV) [facility] Comment on above: Postponed from 08/01 (Declined at this time) Start: 02-26-2024 SHINGRIX VACCINE (2 of 3) PADILLA GRIX VACCINE (2 of 3) [facility] Comment on above: Postponed from 08/14 (Declined at this time) Start: 02-17-2024 End: 05-18-2024 Basic metabolic 2000 panel - Serum or Plasma [facility] Work Phone: Comment on above: Expected: 02/17/2024 , Expires: 05/18/2024 Start: 02-17-2024 End: 05-18-2024 Hemoglobin A1c in Blood [facility] Work Phone: Comment on above: Expected: 02/17/2024 , Expires: 05/18/2024 Start: 02-17-2024 End: 05-18-2024 Hepatic function 2000 panel - Serum or Plasma [facility] Work Phone: Comment on above: Expected: 02/17/2024 , Expires: 05/18/2024 Start: 02-17-2024 End: 05-18-2024 Thyrotropin [Units/volume] in Serum or Plasma [facility] Work Phone: Comment on above: Expected: 02/17/2024 , Expires: 05/18/2024 Start: 02-17-2024 End: 05-18-2024 Thyroxine (T4) free [Mass/volume] in Serum or Plasma [facility] Work Phone: Comment on above: Expected: 02/17/2024 , Expires: 05/18/2024 Start: 11-16-2023 Advance Directive Discussion Advance Directive Discussion [facility] Start: 11-16-2023 Behavioral Health Screening Behavioral Health Screening [facility] Start: 11-16-2023 Depression Assessment Depression Ass essment [facility] Start: 08-29-2023 End: 10-29-2023 Lipid 1996 panel - Serum or Plasma LIPID PANEL BASIC Lab Routine Mixed hyperlipidemia Expected: 08/29/2023, Expires: 10/29/2023 [facility] Work Phone: Comment on above: Expected: 08/29/2023 , Expires: 10/29/2023 Start: 08-27-2023 Hemoglobin A1c measurement HbA1C [facility] Start: 08-27-2023 Hemoglobin A1c/Hemoglobin.total in Blood HBA1C [facility] Start: 07-17-2023 Covid-19 Vaccine () Covid-19 Vaccine () [facility] Start: 07-17-2023 Influenza vaccination INFLUENZ A (Season Ended) [facility] Start: 05-25-2023 Venous catheter care management [facility] Start: 02-27-2023 End: 04-29-2023 Bacteria identified in Urine by Culture URINE CULTURE Microbiology Routine Urinary tract infection with hematuria, site unspecified Expected: 02/27/2023, Expires: 04/29/2023 [facility] Work Phone: Comment on above: Expected: 02/27/2023 , Expires: 04/29/2023 Start: 02-27-2023 End: 04-29-2023 Hepatic function 2000 panel - Serum or Plasma HEPATIC FUNCTION PNL Lab Routine Mixed hyperlipidemia Expected: 02/27/2023, Expires: 04/29/2023 [facility] Work Phone: Comment on above: Expected: 02/27/2023 , Expires: 04/29/2023 Start: 02-27-2023 End: 04-29-2023 Urinalysis complete panel - Urine URINALYSIS, WITH MICROSCOPIC Lab Routine Urinary tract infection with hematuria, site unspecified Expected: 02/27/2023, Expires: 04/29/2023 [facility] Work Phone: Comment on above: Expected: 02/27/2023 , Expires: 04/29/2023 Start: 02-25-2023 End: 04-27-2023 ALBUMIN/CREAT RATIO RND UR ALBUMIN/CREAT RATIO RND UR Lab Routine Type 2 diabetes mellitus without complication, without long-term current use of insulin (HCC) Expected: 02/25/2023, Expires: 04/27/2023 [facility] Work Phone: Comment on above: Expected: 02/25/2023 , Expires: 04/27/2023 Start: 05-29-2022 Venous catheter care management [facility] Start: 05-26-2022 Venous catheter care management [facility] Work Phone: Start: 11-25-2021 Venous catheter care management [facility] Start: 03-25-2021 Venous catheter care management [facility] Start: 02-10-2021 Venous catheter care management [facility] Start: 11-07-2019 Disease process or condition education [facility] Start: 11-07-2019 Medication administr ation assessment [facility] Start: 11-07-2019 Medication monitoring [facility] Start: 11-07-2019 Precautionary procedure [facility] Start: 11-07-2019 Vital signs measurements [facility] Start: 11-07-2019 [facility] Start: 10-31-2019 Disease process or condition education [facility] Start: 10-31-2019 Medication administr ation assessment [facility] Start: 10-31-2019 Medication monitoring [facility] Start: 10-31-2019 Precautionary procedure [facility] Start: 10-31-2019 Vital signs measurements [facility] Start: 10-31-2019 [facility] Start: 10-24-2019 Disease process or condition education [facility] Start: 10-24-2019 Medication administr ation assessment [facility] Start: 10-24-2019 Medication monitoring [facility] Start: 10-24-2019 Precautionary procedure [facility] Start: 10-24-2019 Vital signs measurements [facility] Start: 10-24-2019 [facility] Start: 10-03-2019 Disease process or condition education [facility] Start: 10-03-2019 Medication administr ation assessment [facility] Start: 10-03-2019 Medication monitoring [facility] Start: 10-03-2019 Precautionary procedure [facility] Start: 10-03-2019 Vital signs measurements [facility] Start: 10-03-2019 [facility] Start: 09-26-2019 Disease process or condition education [facility] Start: 09-26-2019 Medication administr ation assessment [facility] Start: 09-26-2019 Medication monitoring [facility] Start: 09-26-2019 Precautionary procedure [facility] Start: 09-26-2019 Vital signs measurements [facility] Start: 09-26-2019 [facility] Start: 09-19-2019 Disease process or condition education [facility] Start: 09-19-2019 Medication administr ation assessment [facility] Start: 09-19-2019 Medication monitoring [facility] Start: 09-19-2019 Precautionary procedure [facility] Start: 09-19-2019 Vital signs measurements [facility] Start: 09-19-2019 [facility] Start: 09-05-2019 Disease process or condition education [facility] Start: 09-05-2019 Medication administr ation assessment [facility] Start: 09-05-2019 Medication monitoring [facility] Start: 09-05-2019 Precautionary procedure [facility] Start: 09-05-2019 Vital signs measurements [facility] Start: 09-05-2019 [facility] Start: 08-29-2019 Disease process or condition education [facility] Start: 08-29-2019 Medication administr ation assessment [facility] Start: 08-29-2019 Medication monitoring [facility] Start: 08-29-2019 Precautionary procedure [facility] Start: 08-29-2019 Vital signs measurements [facility] Start: 08-29-2019 [facility] Start: 08-22-2019 Disease process or condition education [facility] Start: 08-22-2019 Medication administr ation assessment [facility] Start: 08-22-2019 Medication monitoring [facility] Start: 08-22-2019 Precautionary procedure [facility] Start: 08-22-2019 Vital signs measurements [facility] Start: 08-22-2019 [facility] Start: 08-08-2019 Disease process or condition education [facility] Start: 08-08-2019 Medication administr ation assessment [facility] Start: 08-08-2019 Medication monitoring [facility] Start: 08-08-2019 Precautionary procedure [facility] Start: 08-08-2019 Vital signs measurements [facility] Start: 08-08-2019 [facility] Start: 08-01-2019 Disease process or condition education [facility] Start: 08-01-2019 Medication administr ation assessment [facility] Start: 08-01-2019 Medication monitoring [facility] Start: 08-01-2019 Precautionary procedure [facility] Start: 08-01-2019 Vital signs measurements [facility] Start: 08-01-2019 [facility] Start: 07-25-2019 Disease process or condition education [facility] Start: 07-25-2019 Medication administr ation assessment [facility] Start: 07-25-2019 Medication monitoring [facility] Start: 07-25-2019 Precautionary procedure [facility] Start: 07-25-2019 Vital signs measurements [facility] Start: 07-25-2019 [facility] Start: 06-15-2019 [facility] Start: 06-09-2019 [facility] Start: 06-08-2019 Microscopic observat ion [Identifier] in Body fluid by Cyto stain [facility] Start: 06-08-2019 Prothrombin time [facility] Start: 06-08-2019 Ultrasonic guidance for thoracentesis [facility] Start: 05-23-2019 [facility] Start: 04-19-2019 Prothrombin time [facility] Start: 03-21-2019 Magnesium [Mass/volu me] in Serum or Plasma [facility] Start: 03-21-2019 Magnesium measurement [facility] Start: 03-21-2019 [facility] Start: 02-28-2019 [facility] Start: 02-22-2019 [facility] Start: 02-07-2019 [facility] Start: 01-29-2019 Hepatitis B screening URINE ALBUMIN:CREATININE RATIO [facility] Start: 01-03-2019 [facility] Start: 12-13-2018 [facility] Start: 09-11-2018 Glaucoma screening Dilated Retinal E xam [facility] Start: 09-11-2018 Hepatitis C antibody , confirmatory test DILATED RETINAL EXAM [facility] Start: 08-14-2014 Shingrix Vaccine (2 of 3) Padilla grix Vaccine (2 of 3) [facility] Start: 08-01-2009 Pneumococcal Vaccine : 50+ (2 of 2 - PCV) Pneumococcal Vaccine: 50+ (2 of 2 - PCV) [facility] Start: 08-01-2009 Pneumococcal Vaccine : 65+ (2 of 2 - PCV) Pneumococcal Vaccine: 65+ (2 of 2 - PCV) [facility] Start: 2003 RSV Vaccine (1 - 1-d ose 60+ series) RSV Vaccine (1 - 1-dose 60+ series) [facility] Start: 1961 Anxiety Screening Anxiety Screening [facility] Start: 1961 BP Controlled (<130/80) BP Controlle d (<130/80) [facility] Start: 1961 Depression Screening Depression Scre ening [facility] Alanine aminotransfe rase [Enzymatic activity/volume] in Serum or Plasma [facility] Albumin [Mass/volume ] in Serum or Plasma [facility] Alkaline phosphatase [Enzymatic activity/volume] in Serum or Plasma [facility] Anion gap in Serum o r Plasma [facility] Bacteria identified in Urine by Culture URINE CULTURE Microbiology Routine Dysuria 02/25/2023 2:13 PM EDT [facility] Work Phone: Bacteria identified in Urine by Culture BACTERIAL CULTURE, URINE Microbiology Routine Abnormal urine findings 05/23/2025 3:55 PM EDT [facility] Work Phone: Bilirubin, total measurement [facility] BUN/Creatinine ratio [facility] Calcium [Mass/volume ] in Serum or Plasma [facility] Carbon dioxide, tota l [Moles/volume] in Central venous blood [facility] Creatinine [Mass/vol ume] in Serum or Plasma [facility] CT Abdomen and Pelvi s W contrast IV [facility] Work Phone: CT Abdomen and Pelvi s W contrast IV [facility] End: 03-18-2025 CT Abdomen and Pelvis W contrast IV CT ABD/PEL W IVCON Radiology Routine Intra-abdominal and pelvic swelling, mass and lump, unspecified site 1 Occurrences starting 02/17/2024 until 03/18/2025 [facility] Work Phone: Comment on above: 1 Occurrences starti ng 02/17/2024 until 03/18/2025 CT Abdomen and Pelvi s W contrast IV CT ABD/PEL W IVCON Radiology Routine Intra-abdominal and pelvic swelling, mass and lump, unspecified site 03/03/2024 3:24 PM EDT [facility] Work Phone: End: 05-25-2026 CT Abdomen and Pelvis W contrast IV CT ABD/PEL W IVCON Radiology Routine Weight loss Intra-abdominal and pelvic swelling, mass and lump, unspecified site Adenocarcinoma of right lung (HCC) 1 Occurrences starting 04/25/2025 until 05/25/2026 [facility] Comment on above: 1 Occurrences starti ng 04/25/2025 until 05/25/2026 CT Abdomen and Pelvi s W contrast IV CT ABD/PEL W IVCON Radiology Routine Weight loss Intra-abdominal and pelvic swelling, mass and lump, unspecified site Adenocarcinoma of right lung (HCC) 05/04/2025 3:46 PM EDT [facility] Work Phone: CT Chest W contrast IV [facility] Work Phone: CT Chest W contrast IV [facility] End: 05-25-2026 CT Chest W contrast IV CT CHEST W IVCON Radiology Routine Weight loss Intra-abdominal and pelvic swelling, mass and lump, unspecified site Adenocarcinoma of right lung (HCC) 1 Occurrences starting 04/25/2025 until 05/25/2026 [facility] Comment on above: 1 Occurrences starti ng 04/25/2025 until 05/25/2026 CT Chest W contrast IV CT CHEST W IVCON Radiology Routine Weight loss Intra-abdominal and pelvic swelling, mass and lump, unspecified site Adenocarcinoma of right lung (HCC) 05/04/2025 3:46 PM EDT [facility] Glucose [Mass/volume ] in Serum or Plasma [facility] Lactate dehydrogenas e measurement [facility] Measurement of renal function [facility] Patient Education ED Screening E xam Medical Nonurgent [facility] Work Phone: Patient referral [facility] Work Phone: Potassium measurement [facility] PT Unspecified body region [facility] Work Phone: PT Unspecified body region [facility] Serum chloride measurement [facility] Sodium measurement [facility] Total protein measurement [facility] Ultrasonic guidance for thoracentesis [facility] Work Phone: Ultrasonic guidance for thoracentesis [facility] Urea nitrogen [Mass/volume] in Serum or Plasma [facility] End: 07-13-2026 XR Hand - bilateral PA XR HAND/WRIST SURVEY ARTHRITIS 1V PA BILATERAL Radiology Routine Bilateral hand pain 1 Occurrences starting 06/13/2025 until 07/13/2026 [facility] Comment on above: 1 Occurrences starti ng 06/13/2025 until 07/13/2026 XR Hand - bilateral PA XR HAND/W RIST SURVEY ARTHRITIS 1V PA BILATERAL Radiology Routine Bilateral hand pain 06/13/2025 2:17 PM EDT [facility] [place] Immunization Date Immunization Notes Care Provider Hollis eller 09-14-2024 COVID-19 vaccine, ag e 12+ yr, bivalent (MODERNA) Ruba Trujillo DEFENCE INTELLIGENCE ANALYST.FAMILY PROTECTION SPECIALIST Work Phone: [facility] 09-14-2024 influenza virus vacc ine, unspecified formulation Ruba Trujillo DEFENCE INTELLIGENCE ANALYST.FAMILY PROTECTION SPECIALIST Work Phone: [facility] 01-10-2021 COVID-19 original vaccine, age 12+ yr, monovalent (PFIZER-BIONTECH - PURPLE TOP) Emil Braswell MD Work Phone: [facility] 12-20-2020 COVID-19 original vaccine, age 12+ yr, monovalent (PFIZER-BIONTECH - PURPLE TOP) Emil Braswell MD Work Phone: [facility] 09-16-2018 Influenza virus vaccine [facility] 09-16-2018 influenza, high dose seasonal, preservative-free Emil Braswell MD Work Phone: [facility] 09-16-2018 influenza, seasonal, injectable, preservative free Emil Braswell MD Work Phone: [facility] 09-16-2018 influenza virus vacc ine, unspecified formulation Emil Braswell MD Work Phone: [facility] 08-02-2018 tetanus toxoid, redu kayley diphtheria toxoid, and acellular pertussis vaccine, adsorbed Emil Braswell MD Work Phone: [facility] 09-11-2014 influenza, seasonal, injectable Emil Braswell MD Work Phone: [facility] 06-19-2014 zoster vaccine, live Emil Braswell MD Work Phone: [facility] 09-28-2013 influenza virus vacc ine, unspecified formulation Emil Brasewll MD Work Phone: [facility] 09-28-2012 influenza virus vacc ine, unspecified formulation Emil Braswell MD Work Phone: [facility] 08-26-2010 influenza virus vacc ine, unspecified formulation Emil Braswell MD Work Phone: [facility] 08-01-2008 pneumococcal polysaccharide vaccine, 23 valent Emil Braswell MD Work Phone: [facility] Work Phone: 08-01-2008 tetanus and diphther ia toxoids, adsorbed, preservative free, for adult use (2 Lf of tetanus toxoid and 2 Lf of diphtheria toxoid) Emil Braswell MD Work Phone: [facility] Work Phone: 10-13-2005 influenza virus vacc ine, unspecified formulation Emil Braswell MD Work Phone: [facility] Work Phone: 02-05-1996 diphtheria and tetan us toxoids, adsorbed for pediatric use Emil Braswell MD Work Phone: [facility] Work Phone: Payers Date Payer Category Payer Self-pay [id number] 2012 Medicare [employer] [place] [id number] 2012-Present [phone] [address] [place] [address] HMO [id number] 2012 Medicare (Managed [place] [id number] 2012 Medicare [id number] Unknown [id number] Unknown [id number] Unknown [id number] Unknown [id number] Unknown [id number] Unknown [id number] Unknown [id number] Unknown [id number] Social History Date Type Detail Facility [facility] Start: 1945 Sex Assigned At Not on file [facility] Start: 11-23-2020 End: 03-08-2024 Tobacco smoking status [facility]IS Unknown if ever smoked [facility] Start: 06-12-[address] [facility] Start: 06-12-2020 With Family [facility] Start: 11-23-[address] [facility] Start: 1945 Sex Assigned At Female [facility] Start: 02-25-2023 End: 04-07-2025 Tobacco smoking status NHIS Ex-smoker [facility] End: 12-30-2008 History of tobacco use Current smoker [facility] End: 12-30-2008 History of tobacco use Cigarette Smoker [facility] Start: 02-25-2023 End: 04-07-2025 Tobacco use and exposure Smokeless tobacco non-user [facility] Start: 02-25-2023 End: 05-23-2025 Alcohol intake Current drinker of alcohol (finding) [facility] Start: 02-25-2023 End: 02-17-2024 History of Social function [facility] Work Phone: Start: 02-25-2023 End: 02-17-2024 Tobacco use panel [facility] Work Phone: Start: 10-17-2012 Adult Depression Screening Assessment 0 [facility] Work Phone: Has the [employer] or [employer] threatened to shut off services in your home in past 12Mo No [facility] Do you belong to any clubs or organizations such as islam groups, unions, fraternal or athletic groups, or school groups? Yes [facility] Are you now , , , , never or living with a partner? [facility] How often to you hav e a drink containing alcohol? Monthly or less [facility] How many standard dr inks containing alcohol do you have on a typical day? 1 or 2 [facility] How often do you hav e 6 or more drinks on 1 occasion? Never [facility] Do you feel stress - tense, restless, nervous, or anxious, or unable to sleep at night because your mind is troubled all the time - these days [OSQ] Not at all [facility] (I/We) worried whenarcisa er (my/our) food would run out before (I/we) got money to buy more. Never true [facility] Medical Equipment Procedure Code Equipment Code Equipment Origin al Text Equipment Identifier Dates Insertion, vascular access port PORT,6FR POWER PORT FDA Start: 12-30-2018 Insertion, vascular access port PORT,6FR POWER PORT FDA Start: 12-30-2018 Insertion, vascular access port PORT,6FR POWER PORT FDA Start: 12-30-2018 Insertion, vascular access port PORT,6FR POWER PORT FDA Start: 12-30-2018 Insertion, vascular access port PORT,6FR POWER PORT FDA Start: 12-30-2018 GENERATOR,BLADDE R STIM FDA Start: 08-18-2018 LEAD KIT 33CM BLADDER STIM FDA Start: 08-18-2018 GENERATOR,BLADDE R STIM FDA Start: 08-18-2018 LEAD KIT 33CM BLADDER STIM FDA Start: 08-18-2018 GENERATOR,BLADDE R STIM FDA Start: 08-18-2018 LEAD KIT 33CM BLADDER STIM FDA Start: 08-18-2018 GENERATOR,BLADDE R STIM FDA Start: 08-18-2018 LEAD KIT 33CM BLADDER STIM FDA Start: 08-18-2018 GENERATOR,BLADDE R STIM FDA Start: 08-18-2018 LEAD KIT 33CM BLADDER STIM FDA Start: 08-18-2018 Goals Date Patient Goal Desired Activity /State Personal health goal Functional Status Date Assessment Result Facility 04-23-2025 Total score [AUDIT-C] 1 04/23/20 9:35 PM EDT User, Heidy [facility] 04-23-2025 How often to you hav e a drink containing alcohol? Monthly or less 04/23/2025 9:35 PM EDT User, Mycbriant Monthly or less [facility] 04-23-[address] inks containing alcohol do you have on a typical day? 1 or 2 04/23/2025 9:35 PM EDT User, Mattt 1 or 2 [facility] 04-23-2025 How often do you hav e 6 or more drinks on 1 occasion? Never 04/23/2025 9:35 PM EDT User, Mattt Never [facility] 05-23-2015 Are you deaf, or do you have serious difficulty hearing No 05/23/2015 11:47 AM Anjelica Aguirre RN No [facility] 05-23-2015 Are you blind, or do you have serious difficulty seeing, even when wearing glasses No 05/23/2015 11:47 AM Anjelica Aguirre RN No [facility] 05-23-2015 Do you have serious difficulty walking or climbing stairs No 05/23/2015 11:47 AM Anjelica Aguirre RN No [facility] 05-23-2015 Do you have difficul ty dressing or bathing No 05/23/2015 11:47 AM Anjelica Aguirre RN No [facility] 05-23-2015 Because of a physica l, mental, or emotional condition, do you have difficulty doing errands alone such as visiting a physician's office or shopping No 05/23/2015 11:47 AM Anjelica Aguirre RN No [facility] Mental Status Date Assessment Result Facility 03-08-2024 Cognitive function Level Of Cons ciousness Awake;Alert;Appropriate [facility] Work Phone: 11-07-2019 Cognitive function Mood Descript ion Appropriate;Calm [facility] Work Phone: 05-23-2015 Because of a physica l, mental, or emotional condition, do you have serious difficulty concentrating, remembering, or making decisions No 05/23/2015 11:47 AM Anjelica Aguirre RN No [facility] Clinical Notes 06-04-2016 to 09-28-2025 Ruba Trujillo APRN.FAMILY PROTECTION SPECIALIST - 07/11/2025 5:40 PM EDTPatient InstructionsTelephone Encounter - Ileana Ramos LPN - 06/16/2025 12:04 PM EDTTelephone Encounter - Ileana Ramos LPN - 06/16/2025 12:04 PM EDT Note Date & Type Note Facility 09-28-2025 Note [facility] Medical Records Department [address] [place] [id number] Discharge Summary 09/28/25 1338 MR#: [id number] Acct: [id number] Name: TRISH HUNT Rep #: [id number] : 1945 80 From: Alexandro Mathews MD PCP: Dr. Emil Braswell MD Status:[id number] Providers Date of Admission: 09/27/25 Primary Care Physician: Dr. Emil Braswell MD Reason For Visit: CHF, AND UTI Diagnosis Discharge Diagnosis (1) Acute exacerbation of CHF (congestive heart failure): Status: Chronic Code(s): I50.9 - Heart failure, unspecified (2) Acute UTI: Status: Acute Code(s): N39.0 - Urinary tract infection, site not specified (3) Hypoxia: Status: Acute Code(s): R09.02 - Hypoxemia Medications at Discharge Home Medications ibuprofen 800 mg tablet 800 mg PO Q8H pain 07/04/25 cefdinir 300 mg capsule 300 mg PO BID 2 days #4 caps 09/28/25 Hospital Course Operations None Procedures 2-D Echocardiogram and Thoracentesis Summary of Care Provided Minutes Spent on Discharge: 36 Hospital Course: Per HPI: TRISH HUNT, is a 80 F who presents to the hospital with increasing shortness of breath and lower extremity edema. She does have a history of stage IV non-small cell lung cancer that she states is in remission, this was discovered in 2018 with a lesion in her T10 vertebral body that was leading possible cord compression she needed emergent surgery. Since that time she has undergone multiple treatment modalities, and so far has no progression of disease with a history of right pleural effusion. Today she is also demonstrating some shortness of breath as she was 87 to 88% on room air which is new for her. Given the moderate pleural effusion may benefit from a thoracentesis. In the meantime her proBNP was elevated to 4300 so there is concern for component of heart failure which would be new to her as well as recurrent UTI with a positive UA, she did receive a dose of Rocephin in the emergency room. Hospital Course: 1. Acute hypoxic respiratory insufficiency unclear etiology???80-year-old female presented to the hospital with increasing shortness of breath and urinary incontinence as well as lower extremity edema. It is nonpitting edema and she keeps send that she feels fine but was family who asked her to come into the hospital. She is requiring 2 L of oxygen with ambulation and at rest on discharge, I have reviewed the oxygen testing, and this patient qualifies for the home equipment and portability. The patient is mobile in the home and the community. She did have a thoracentesis that demonstrated a possible exudative effusion however this is a chronic right pleural effusion and that she had received Lasix which can manipulate the results, will send fluid for cytology given her cancer history. I do recommend that she follow-up with pulmonology in the outpatient setting for pulmonary function testing to get a better understanding of her shortness of breath. She did have an echocardiogram that demonstrated an EF of 75% with no other abnormalities, no wall motion abnormality and bilateral atria were normal. She was started on Lasix which she tolerated from a blood pressure and renal function standpoint however she is concerned about going home on Lasix with her consistent incontinence. I do recommend follow-up with urology for possible surgical intervention of her incontinence if indicated. In the meantime we will hold off on giving her any diuretics since the echo does not show any obvious signs of heart failure. Will recommend pulmonology in 2 weeks as well as follow-up with her PCP in 3 to 5 days. 2. UTI???is not having any symptoms however UA was positive and culture is also positive with greater than 100,000 CFU's of gram-negative jovany, she did receive 2 days of Rocephin so we will continue another 2 days of cefdinir on discharge complete treatment. Her PCP can follow-up the culture in the outpatient setting. Physical Exam Narrative General: Alert, Oriented x3, Cooperative, No apparent distress HEENT: Atraumatic, PERRLA, EOMI, Normocephalic Oral: Moist Mucosa Neck: Supple, No JVD Lungs: Diminished right greater than left, Normal air movement, No rhonchi, No wheeze, No rales Cardiovascular: Regular rate, Regular Rhythm, Normal S1, Normal S2, No murmurs Abdomen: Soft, Non Tender, Non-Distended, No Hepato-splenomegaly Extremities: Nonpitting edema, Capillary Refill Less than 3 Seconds Skin: No rashes, No breakdown Musculoskeletal: No Tenderness to Palpation of Joints or Extremities Neurological: No focal neurological deficits, moves all extremities Psych/Mental Status: Normal Affect, Appropriate Weight / BMI Weight Weight: 196 lb 6.91 oz Body Mass Index (BMI) 34.7 ABG / Lab / Microbiology Data 09/28/25 06:38 09/28/25 06:39 Laboratory: Labo (more content not included)... [facility] 08-09-2025 Note HNO ID: [id number] Author: RUBA TRUJILLO APRN.FAMILY PROTECTION SPECIALIST Service: ? Author Type: Nurse Practitioner Type: Progress Notes Filed: 08/09/2025 12:47 Note Text: This is a 80 year old female who presents today with: The patient is an 80-year-old female presenting for evaluation of a painful right gluteal sore of approximately two weeks? duration. HISTORY OF PRESENT ILLNESS: Right Buttock Sore: - Trish Hunt noticed a sore on the right buttock approximately 1.5 weeks ago. - Attributes the sore to prolonged sitting (22 hours/day) due to inability to walk long distances secondary to radiating nerve pain from cancer and surgeries. - Initially experienced pain while sitting in a recliner with a worn seat; attempted to alleviate discomfort by using pillows. - Began applying Neosporin to the sore, which provided some relief. - Denies the sore being open; reports it is "itchy." - Denies any signs of infection, such as heat or significant pain. Arthritis: - Trish reports significant pain in hands, arms, and shoulders, particularly in the morning and during rainy weather. - Recently completed a course of Prednisone, which provided relief and improved hand mobility. - Currently taking ibuprofen 800 mg in the morning, with additional doses at night if pain is severe. - Expresses interest in long-term management options for arthritis pain - specifically long-term prednisone. 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 Hypothyroid Lung cancer (HCC) Non-small cell carcinoma of right lung, stage 4 Metabolic syndrome Other and unspecified hyperlipidemia Overactive bladder Unspecified essential hypertension PAST SURGICAL HISTORY Procedure Laterality Date CHOLECYSTECTOMY COLONOSCOPY FLX DX W/COLLJ SPEC WHEN PFRMD 12/14/2012 Colonoscopy COLSC FLX W/RMVL OF TUMOR POLYP LESION SNARE TQ 03/18/16 multiple polyps - 3 year follow up PAST SURGICAL HISTORY OF lumbosacral nerve root decompression PAST SURGICAL HISTORY OF bladder stim SIGMOIDOSCOPY FLX DX W/COLLJ SPEC BR/WA IF PFRMD 07/05/13 Sigmoidoscopy, flexible/colonoscopy needed in 1 year ALLERGIES Codeine, Lisinopril, Morphine, Septra [Sulfamethoxazole-Trimethoprim] , Sulfa (Sulfonamide Antibiotics), and Vicodin [Hydrocodone-Acetaminophen] MEDICATIONS Current Outpatient Medications Medication Sig acetaminophen (TYLENOL EXTRA STRENGTH) 500 mg tablet Take 500 mg by mouth every 8 hours as needed for pain. DULoxetine DR (CYMBALTA) 20 mg capsule Take 1 capsule by mouth once daily. omeprazole (PRILOSEC) 20 mg capsule Take 1 capsule by mouth once daily. MYRBETRIQ 50 mg Tb24 Take 2 tablets by mouth once daily. Bisacodyl (DULCOLAX) 5 mg tab Take 5 mg by mouth as needed for constipation. Methenamine Hippurate (HIPREX) 1 gram tablet Take 1 g by mouth two times a day with meals. docusate sodium (COLACE) 100 mg capsule Can take up to six or eight at night multivitamin tablet Take 1 tablet by mouth once daily. No current facility-administered medications for this visit. FAMILY HISTORY Problem Relation Age of Onset Cancer Mother lung non smoker Coronary Artery Disease Father Cancer Sister thyroid SOCIAL HISTORY[1] REVIEW OF SYSTEMS Musculoskeletal: (+) right buttock pain with sitting, (+) radiating lower extremity pain, (+) bilateral hand arthralgia Skin: (+) right buttock lesion, (+) right buttock pruritus EXAM: BP 120/72 Pulse 96 Resp 16 PHYSICAL EXAM: General Appearance: Well appearing, alert, in no acute distress, well-hydrated, well nourished.. Skin: Skin color, texture, turgor normal, no suspicious rashes or lesions. Right buttock with appx 2-3 cm superficial lesion with scaly skin. Head: Normocephalic, no masses, lesions, tenderness or abnormalities. Eyes: Anicteric sclera. Extraocular movements are intact. . Neurologic: Gait normal. ASSESSMENT/PLAN 1. Wound of skin (T14.8XXA) - Lesion on right buttock present for 1.5 weeks; etiology unclear (pressure-related vs. abrasion); no signs of infection. - Advised frequent position changes and shifting in chair to reduce pressure. - Recommended hydrocolloid dressing (e.g., Duoderm) for protection and cushioning. - Discussed use of zinc oxide-based barrier creams (e.g., Desitin, Calmoseptine) as alternatives to Neosporin. She reports that the furniture store is coming to fix her seat cushion on her recliner. - Instructed to monitor for signs of infection or worsening; follow-up if no improvement or deterioration. 2. Bilateral hand pain (M79.641) - Chronic pain; previously improved with prednisone, currently managed with ibuprofen 800 mg daily. - Discussed risks of long-term prednisone use. - Recommended evaluation by rheumatology for further management. - Patient to research rheumatology providers and notify if referral is needed. - Follow (more content not included)... [facility] 07-11-2025 Note HNO ID: [id number] Author: RUBA TRUJILLO APRN.FAMILY PROTECTION SPECIALIST Service: ? Author Type: Nurse Practitioner Type: Progress Notes Filed: 07/11/2025 17:44 Note Text: This is a 80 year old female who presents today with: The patient is an 80-year-old female with osteoarthritis and history of stage IV lung cancer in remission, presenting for evaluation of worsening hand and shoulder pain. HISTORY OF PRESENT ILLNESS: Osteoarthritis: - Trish Hunt reports worsening pain in bilateral shoulders and hands x4 months. - Pain in shoulders exacerbated by raising arms. - Right hand pain more severe than left; unable to fully extend fingers. - Chronic swelling in hands; notes "severe arthritis" in both thumbs. - Pain not alleviated by Tylenol. Ibuprofen is helpful. - Previously prescribed Cymbalta, which caused somnolence and anorexia without pain relief. Refers made her goofy. - Trish has been performing exercises recommended by a physical therapist. - Seen by an orthopedic PA; no follow-up recommended. - She is interested in trial of prednisone to see if that helps her pain. 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 Hypothyroid Lung cancer (HCC) Non-small cell carcinoma of right lung, stage 4 Metabolic syndrome Other and unspecified hyperlipidemia Overactive bladder Unspecified essential hypertension PAST SURGICAL HISTORY Procedure Laterality Date CHOLECYSTECTOMY COLONOSCOPY FLX DX W/COLLJ SPEC WHEN PFRMD 12/14/2012 Colonoscopy COLSC FLX W/RMVL OF TUMOR POLYP LESION SNARE TQ 03/18/16 multiple polyps - 3 year follow up PAST SURGICAL HISTORY OF lumbosacral nerve root decompression PAST SURGICAL HISTORY OF bladder stim SIGMOIDOSCOPY FLX DX W/COLLJ SPEC BR/WA IF PFRMD 07/05/13 Sigmoidoscopy, flexible/colonoscopy needed in 1 year ALLERGIES Codeine, Lisinopril, Morphine, Septra [Sulfamethoxazole-Trimethoprim] , Sulfa (Sulfonamide Antibiotics), and Vicodin [Hydrocodone-Acetaminophen] MEDICATIONS Current Outpatient Medications Medication Sig predniSONE (DELTASONE) 10 mg tablet Take 4 tabs daily x 3 days, then 3 tabs x 3 days, 2 tabs x 3 days, then 1 tab x3 days with food. acetaminophen (TYLENOL EXTRA STRENGTH) 500 mg tablet Take 500 mg by mouth every 8 hours as needed for pain. DULoxetine DR (CYMBALTA) 20 mg capsule Take 1 capsule by mouth once daily. omeprazole (PRILOSEC) 20 mg capsule Take 1 capsule by mouth once daily. MYRBETRIQ 50 mg Tb24 Take 2 tablets by mouth once daily. Bisacodyl (DULCOLAX) 5 mg tab Take 5 mg by mouth as needed for constipation. Methenamine Hippurate (HIPREX) 1 gram tablet Take 1 g by mouth two times a day with meals. docusate sodium (COLACE) 100 mg capsule Can take up to six or eight at night multivitamin tablet Take 1 tablet by mouth once daily. No current facility-administered medications for this visit. FAMILY HISTORY Problem Relation Age of Onset Cancer Mother lung non smoker Coronary Artery Disease Father Cancer Sister thyroid SOCIAL HISTORY[1] REVIEW OF SYSTEMS Constitutional: (+) decreased appetite, (+) hot flashes Ears/Nose/Mouth/Throat: (+) tooth fracture Gastrointestinal: (+) abdominal pressure Musculoskeletal: (+) bilateral shoulder pain, (+) bilateral hand pain, (+) bilateral thumb pain, (+) finger joint swelling, (+) limited finger range of motion, (+) back pain Skin: (+) palmar erythema EXAM: BP 142/80 Pulse 93 Resp 16 PHYSICAL EXAM: General Appearance: Well appearing, alert, in no acute distress, well-hydrated, well nourished.. Skin: Skin color, texture, turgor normal, no suspicious rashes or lesions. Head: Normocephalic, no masses, lesions, tenderness or abnormalities. Eyes: Anicteric sclera. Pupils are equally round and reactive to light. Extraocular movements are intact. . Extremities: No deformities, edema, skin discoloration, clubbing or cyanosis. Good capillary refill. Pain at the base of bilateral thumbs and scattered throughout different areas of the hands. Pain in the shoulders and difficulty raising arms. Neurologic: Gait normal. Reflexes normal and symmetric. Sensation grossly intact.. ASSESSMENT/PLAN 1. Primary osteoarthritis, right hand (M19.041) 2. Primary osteoarthritis of left hand (M19.042) - Chronic, worsening pain in bilateral hands and shoulders; pain not relieved by Tylenol or ibuprofen. - Previous trial of Cymbalta discontinued due to side effects (somnolence, anorexia, mental fog) and lack of pain relief. - Prior evaluation by orthopedic PA confirmed arthritis; hand therapy exercises ongoing. - Start prednisone taper: 4 tablets daily for 3 days, 3 tablets daily for 3 days, 2 tablets daily for 3 days, 1 tablet daily for 3 days; instructed to take with food in the morning to minimize GI irritation and insomnia. This may help with shoulder pain, as well. - Dis (more content not included)... [facility] 07-11-2025 History of Presen t illness Narrative This is a 80 year old female who presents today with: The patient is an 80-year-old female with osteoarthritis and history of stage IV lung cancer in remission, presenting for evaluation of worsening hand and shoulder pain. HISTORY OF PRESENT ILLNESS: Osteoarthritis: - Trish Hunt reports worsening pain in bilateral shoulders and hands x4 months. - Pain in shoulders exacerbated by raising arms. - Right hand pain more severe than left; unable to fully extend fingers. - Chronic swelling in hands; notes "severe arthritis" in both thumbs. - Pain not alleviated by Tylenol. Ibuprofen is helpful. - Previously prescribed Cymbalta, which caused somnolence and anorexia without pain relief. Refers made her goofy. - Trish has been performing exercises recommended by a physical therapist. - Seen by an orthopedic PA; no follow-up recommended. - She is interested in trial of prednisone to see if that helps her pain. 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 Hypothyroid Lung cancer (HCC) Non-small cell carcinoma of right lung, stage 4 Metabolic syndrome Other and unspecified hyperlipidemia Overactive bladder Unspecified essential hypertension PAST SURGICAL HISTORY Procedure Laterality Date CHOLECYSTECTOMY COLONOSCOPY FLX DX W/COLLJ SPEC WHEN PFRMD 12/14/2012 Colonoscopy COLSC FLX W/RMVL OF TUMOR POLYP LESION SNARE TQ 03/18/16 multiple polyps - 3 year follow up PAST SURGICAL HISTORY OF lumbosacral nerve root decompression PAST SURGICAL HISTORY OF bladder stim SIGMOIDOSCOPY FLX DX W/COLLJ SPEC BR/WA IF PFRMD 07/05/13 Sigmoidoscopy, flexible/colonoscopy needed in 1 year ALLERGIES Codeine, Lisinopril, Morphine, Septra [Sulfamethoxazole-Trimethoprim] , Sulfa (Sulfonamide Antibiotics), and Vicodin [Hydrocodone-Acetaminophen] MEDICATIONS Current Outpatient Medications Medication Sig predniSONE (DELTASONE) 10 mg tablet Take 4 tabs daily x 3 days, then 3 tabs x 3 days, 2 tabs x 3 days, then 1 tab x3 days with food. acetaminophen (TYLENOL EXTRA STRENGTH) 500 mg tablet Take 500 mg by mouth every 8 hours as needed for pain. DULoxetine DR (CYMBALTA) 20 mg capsule Take 1 capsule by mouth once daily. omeprazole (PRILOSEC) 20 mg capsule Take 1 capsule by mouth once daily. MYRBETRIQ 50 mg Tb24 Take 2 tablets by mouth once daily. Bisacodyl (DULCOLAX) 5 mg tab Take 5 mg by mouth as needed for constipation. Methenamine Hippurate (HIPREX) 1 gram tablet Take 1 g by mouth two times a day with meals. docusate sodium (COLACE) 100 mg capsule Can take up to six or eight at night multivitamin tablet Take 1 tablet by mouth once daily. No current facility-administered medications for this visit. FAMILY HISTORY Problem Relation Age of Onset Cancer Mother lung non smoker Coronary Artery Disease Father Cancer Sister thyroid SOCIAL HISTORY[1] REVIEW OF SYSTEMS Constitutional: (+) decreased appetite, (+) hot flashes Ears/Nose/Mouth/Throat: (+) tooth fracture Gastrointestinal: (+) abdominal pressure Musculoskeletal: (+) bilateral shoulder pain, (+) bilateral hand pain, (+) bilateral thumb pain, (+) finger joint swelling, (+) limited finger range of motion, (+) back pain Skin: (+) palmar erythema EXAM: BP 142/80 Pulse 93 Resp 16 PHYSICAL EXAM: General Appearance: Well appearing, alert, in no acute distress, well-hydrated, well nourished.. Skin: Skin color, texture, turgor normal, no suspicious rashes or lesions. Head: Normocephalic, no masses, lesions, tenderness or abnormalities. Eyes: Anicteric sclera. Pupils are equally round and reactive to light. Extraocular movements are intact. . Extremities: No deformities, edema, skin discoloration, clubbing or cyanosis. Good capillary refill. Pain at the base of bilateral thumbs and scattered throughout different areas of the hands. Pain in the shoulders and difficulty raising arms. Neurologic: Gait normal. Reflexes normal and symmetric. Sensation grossly intact.. ASSESSMENT/PLAN 1. Primary osteoarthritis, right hand (M19.041) 2. Primary osteoarthritis of left hand (M19.042) - Chronic, worsening pain in bilateral hands and shoulders; pain not relieved by Tylenol or ibuprofen. - Previous trial of Cymbalta discontinued due to side effects (somnolence, anorexia, mental fog) and lack of pain relief. - Prior evaluation by orthopedic PA confirmed arthritis; hand therapy exercises ongoing. - Start prednisone taper: 4 tablets daily for 3 days, 3 tablets daily for 3 days, 2 tablets daily for 3 days, 1 tablet daily for 3 days; instructed to take with food in the morning to minimize GI irritation and insomnia. This may help with shoulder pain, as well. - Discussed potential side effects of prednisone, including increased appetite, hot flashes, and jitteriness. - Discussed referral to orthopedics for possible corticosteroid injections if prednisone is ineffective. - Discussed rheumatology referral as an option if symptoms persist, as well. Discussed treatment plan and patient voices understanding. Patient's questions answered appropriately. Medications and potential side effects were discussed and patient voices understanding. Return to the office as scheduled or as needed for worsening/no improvement. Ruba Trujillo APRN.MARLENA Recording using [employer] software for draft documentation of the visit was discussed with the patient/authorized sales representative uniforms; all questions welcomed and answered. Patient/authorized sales representative uniforms agreed to proceed [1] Social History Tobacco Use Smoking status: Former Current packs/day: 0.00 Types: Cigarettes Quit date: 12/30/2008 Years since quittin.5 Smokeless tobacco: Never Vaping Use Vaping status: Never Used Substance Use Topics Alcohol use: Yes Comment: wine Drug use: No documented in this encounter [facility] 07-11-2025 Instructions Ruba Trujillo APRN.CNP - 07/11/2025 3:30 PM EDT Start prednisone. The prednisone taper will be 4 tablets for 3 days; 3 tablets for 3 days; 2 tablets for 3 days; then 1 tablet for 3 days. Please do no use other anti-inflammatories (like ibuprofen, aleve, naproxen, etc) while you are on this medication. 2. Let me know if this does not improve, or worsens, or comes back after the prednisone. documented in this encounter [facility] 06-16-2025 Telephone encounter Note Patient notified. [facility] 06-16-2025 Miscellaneous Notes Patient notified. Inflammatory markers are normal. Kidney function normal. Magnesium normal. Cholesterol levels are much better. What ever changes you have made, really improved your cholesterol. documented in this encounter [facility] 06-15-2025 Progress note Formatting of t his note might be different from the original. Inflammatory markers are normal. Kidney function normal. Magnesium normal. Cholesterol levels are much better. What ever changes you have made, really improved your cholesterol. [facility] 06-13-2025 History of Presen t illness Narrative Radiology Service Progress Note PATIENT NAME: Trish Hunt DATE OF SERVICE: June 13, 2025 TIME: 2:05 PM PATIENT IDENTITY VERIFICATION COMPLETED USING TWO (2) IDENTIFIERS: Name and Date of confirmed by patient verbally. FALL SCREENING: Has the patient had 2 falls in the last year or 1 fall with injury or currently using an Ambulatory Assistive Device (Walker, Cane, Wheelchair, Crutches, etc.)? Yes, Patient High Risk for Falls What interventions were put in place to prevent falls during this visit? Instructed Patient to Remain Seated (Not on Exam Table) Until Exam and Increased Observations by Caregivers PATIENT GENDER DATA: Assigned female at . status: : No status: NO. PATIENT RELEVANT IMPLANT DATA REVIEWED: Yes PATIENT PRESENTS WITH AN IMPLANTABLE OR ATTACHED ART PREPARATOR: No RADIOLOGY DEPARTMENT: General X-ray: Exam(s) Completed: Upper Extremity X-Ray(s): Wrist, bilateral and Hand, bilateral 1 view arthritis hand/wrist PERIPHERAL IV DATA: Not applicable SIGNED BY: RT Malena(Dashawn) June 13, 2025 2:05 PM documented in this encounter [facility] 06-13-2025 Note HNO ID: [id number] Author: LETI PARHAM RT(R) Service: ? Author Type: Dental Appliance Mechanic Type: Progress Notes Filed: 06/13/2025 14:16 Note Text: Radiology Service Progress Note PATIENT NAME: Trish Hunt DATE OF SERVICE: June 13, 2025 TIME: 2:05 PM PATIENT IDENTITY VERIFICATION COMPLETED USING TWO (2) IDENTIFIERS: Name and Date of confirmed by patient verbally. FALL SCREENING: Has the patient had 2 falls in the last year or 1 fall with injury or currently using an Ambulatory Assistive Device (Walker, Cane, Wheelchair, Crutches, etc.)? Yes, Patient High Risk for Falls What interventions were put in place to prevent falls during this visit? Instructed Patient to Remain Seated (Not on Exam Table) Until Exam and Increased Observations by Caregivers PATIENT GENDER DATA: Assigned female at . status: : No status: NO. PATIENT RELEVANT IMPLANT DATA REVIEWED: Yes PATIENT PRESENTS WITH AN IMPLANTABLE OR ATTACHED ART PREPARATOR: No RADIOLOGY DEPARTMENT: General X-ray: Exam(s) Completed: Upper Extremity X-Ray(s): Wrist, bilateral and Hand, bilateral 1 view arthritis hand/wrist PERIPHERAL IV DATA: Not applicable SIGNED BY: RT Malena(R) June 13, 2025 2:05 PM [facility] 06-13-2025 Instructions Reva Wasserman APRN.MARLENA - 06/13/2025 1:23 PM EDT - Stop taking meloxicam 15 mg once daily, as it s not helping your hand pain and may increase health risks. - Start duloxetine (Cymbalta) 20 mg once daily to help manage chronic pain; take each morning. - Complete repeat X-rays of both hands as ordered. - Have blood drawn for inflammatory markers (CRP, rheumatoid arthritis panel) as ordered. - Perform your hand exercises (make a fist and open your fingers 15 times per session) in warm water to reduce discomfort. - Continue using warm rice bags on your hands before exercises to ease pain. - Schedule a follow-up in about one month to review your response to duloxetine and discuss any dosage adjustments. documented in this encounter [facility] 06-13-2025 Note HNO ID: [id number] Author: REVA WASSERMAN APRN.CNP Service: ? Author Type: Nurse Practitioner Type: Progress Notes Filed: 06/13/2025 13:24 Note Text: This is a 80 year old female who presents today with: Patient presents with: Arthritis: Follow up HISTORY OF PRESENT ILLNESS: Trish Hunt is a 80 year old female. Patient presents with: Arthritis: Follow up Trish Hunt is an 80-year-old female with a history of stage IV lung cancer, presenting for evaluation of bilateral hand pain and stiffness. Bilateral Hand Pain and Stiffness: - Onset 6 weeks ago, described as "very stiff" and painful. - Pain is diffuse, involving entire fingers and hands, with no specific joint worse than another. - Pain is worse with movement, especially making a fist and extending fingers. - Pain is constant, present even at rest, and described as close to being excruciating" at times. - Stiffness and pain persist throughout the day and night. 02/23 - Noted swelling in hands, particularly in fingers. - Denies any burning sensation. - Pain has started to radiate up the arms. - Has been using compression gloves, diclofenac gel, and rice bags for heat therapy with minimal relief. - Has been performing hand exercises as recommended by physical therapy, but reports significant pain during exercises. - Has been taking meloxicam 15 mg daily for one month with no improvement; previously tried ibuprofen without relief. - Denies any known trauma or injury to the hands. - Has seen orthopedics and Ruba for evaluation and management without improvement. - Has not discussed hand pain with oncologist, Dr. Jimenez. Stage IV Lung Cancer: - Diagnosed 6 years ago, with a tumor in the back causing radiating nerve pain. - Has not received treatment for cancer in a long time. - Undergoes yearly checkups with oncologist, Dr. Jimenez. - Reports living in a recliner chair due to back pain, keeping feet elevated most of the time. - Experiences fatigue and loss of appetite, attributing it to pain. - Reports cold feet and believes neuropathy is setting in. 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 Hypothyroid Lung cancer (HCC) Non-small cell carcinoma of right lung, stage 4 Metabolic syndrome Other and unspecified hyperlipidemia Overactive bladder Unspecified essential hypertension PAST SURGICAL HISTORY Procedure Laterality Date CHOLECYSTECTOMY COLONOSCOPY FLX DX W/COLLJ SPEC WHEN PFRMD 12/14/2012 Colonoscopy COLSC FLX W/RMVL OF TUMOR POLYP LESION SNARE TQ 03/18/16 multiple polyps - 3 year follow up PAST SURGICAL HISTORY OF lumbosacral nerve root decompression PAST SURGICAL HISTORY OF bladder stim SIGMOIDOSCOPY FLX DX W/COLLJ SPEC BR/WA IF PFRMD 07/05/13 Sigmoidoscopy, flexible/colonoscopy needed in 1 year ALLERGIES Codeine, Lisinopril, Morphine, Septra [Sulfamethoxazole-Trimethoprim] , Sulfa (Sulfonamide Antibiotics), and Vicodin [Hydrocodone-Acetaminophen] MEDICATIONS Current Outpatient Medications Medication Sig acetaminophen (TYLENOL EXTRA STRENGTH) 500 mg tablet Take 500 mg by mouth every 8 hours as needed for pain. meloxicam (MOBIC) 15 mg tablet Take 1 tablet by mouth once daily. With food. omeprazole (PRILOSEC) 20 mg capsule Take 1 capsule by mouth once daily. MYRBETRIQ 50 mg Tb24 Take 2 tablets by mouth once daily. Bisacodyl (DULCOLAX) 5 mg tab Take 5 mg by mouth as needed for constipation. Methenamine Hippurate (HIPREX) 1 gram tablet Take 1 g by mouth two times a day with meals. docusate sodium (COLACE) 100 mg capsule Can take up to six or eight at night multivitamin tablet Take 1 tablet by mouth once daily. No current facility-administered medications for this visit. FAMILY HISTORY Problem Relation Age of Onset Cancer Mother lung non smoker Coronary Artery Disease Father Cancer Sister thyroid Social History Tobacco Use Smoking status: Former Current packs/day: 0.00 Types: Cigarettes Quit date: 12/30/2008 Years since quittin.4 Smokeless tobacco: Never Vaping Use Vaping status: Never Used Substance Use Topics Alcohol use: Yes Comment: wine Drug use: No REVIEW OF SYSTEMS Constitutional: (+) fatigue, (+) loss of appetite Musculoskeletal: (+) bilateral hand pain, (+) bilateral hand stiffness, (+) bilateral hand swelling, (+) finger tenderness, (+) arm pain, (-) burning hand pain Cardiovascular: (+) bilateral pedal swelling Neurological: (+) cold feet Psychiatric: (+) feeling on edge, (-) depressed mood, (-) anhedonia EXAM: BP 122/68 Pulse 96 Temp 36.7 ?C (98 ?F) (Left Tympanic) SpO2 92% PHYSICAL EXAM: GENERAL: NAD, alert and oriented. SKIN: Unremarkable, no rash or skin lesions. HEAD: Normocephalic. LUNGS: Clear to auscultation bilaterally but very diminished right base, no wheezes/rhonchi/rales. HEART: Re (more content not included)... [facility] 06-13-2025 History of Presen t illness Narrative This is a 80 year old female who presents today with: Patient presents with: Arthritis: Follow up HISTORY OF PRESENT ILLNESS: Trish Hunt is a 80 year old female. Patient presents with: Arthritis: Follow up Trish Hunt is an 80-year-old female with a history of stage IV lung cancer, presenting for evaluation of bilateral hand pain and stiffness. Bilateral Hand Pain and Stiffness: - Onset 6 weeks ago, described as "very stiff" and painful. - Pain is diffuse, involving entire fingers and hands, with no specific joint worse than another. - Pain is worse with movement, especially making a fist and extending fingers. - Pain is constant, present even at rest, and described as close to being excruciating at times. - Stiffness and pain persist throughout the day and night. 10 - Noted swelling in hands, particularly in fingers. - Denies any burning sensation. - Pain has started to radiate up the arms. - Has been using compression gloves, diclofenac gel, and rice bags for heat therapy with minimal relief. - Has been performing hand exercises as recommended by physical therapy, but reports significant pain during exercises. - Has been taking meloxicam 15 mg daily for one month with no improvement; previously tried ibuprofen without relief. - Denies any known trauma or injury to the hands. - Has seen orthopedics and Ruba for evaluation and management without improvement. - Has not discussed hand pain with oncologist, Dr. Jimenez. Stage IV Lung Cancer: - Diagnosed 6 years ago, with a tumor in the back causing radiating nerve pain. - Has not received treatment for cancer in a long time. - Undergoes yearly checkups with oncologist, Dr. Jimenez. - Reports living in a recliner chair due to back pain, keeping feet elevated most of the time. - Experiences fatigue and loss of appetite, attributing it to pain. - Reports cold feet and believes neuropathy is setting in. 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 Hypothyroid Lung cancer (HCC) Non-small cell carcinoma of right lung, stage 4 Metabolic syndrome Other and unspecified hyperlipidemia Overactive bladder Unspecified essential hypertension PAST SURGICAL HISTORY Procedure Laterality Date CHOLECYSTECTOMY COLONOSCOPY FLX DX W/COLLJ SPEC WHEN PFRMD 12/14/2012 Colonoscopy COLSC FLX W/RMVL OF TUMOR POLYP LESION SNARE TQ 03/18/16 multiple polyps - 3 year follow up PAST SURGICAL HISTORY OF lumbosacral nerve root decompression PAST SURGICAL HISTORY OF bladder stim SIGMOIDOSCOPY FLX DX W/COLLJ SPEC BR/WA IF PFRMD 07/05/13 Sigmoidoscopy, flexible/colonoscopy needed in 1 year ALLERGIES Codeine, Lisinopril, Morphine, Septra [Sulfamethoxazole-Trimethoprim] , Sulfa (Sulfonamide Antibiotics), and Vicodin [Hydrocodone-Acetaminophen] MEDICATIONS Current Outpatient Medications Medication Sig acetaminophen (TYLENOL EXTRA STRENGTH) 500 mg tablet Take 500 mg by mouth every 8 hours as needed for pain. meloxicam (MOBIC) 15 mg tablet Take 1 tablet by mouth once daily. With food. omeprazole (PRILOSEC) 20 mg capsule Take 1 capsule by mouth once daily. MYRBETRIQ 50 mg Tb24 Take 2 tablets by mouth once daily. Bisacodyl (DULCOLAX) 5 mg tab Take 5 mg by mouth as needed for constipation. Methenamine Hippurate (HIPREX) 1 gram tablet Take 1 g by mouth two times a day with meals. docusate sodium (COLACE) 100 mg capsule Can take up to six or eight at night multivitamin tablet Take 1 tablet by mouth once daily. No current facility-administered medications for this visit. FAMILY HISTORY Problem Relation Age of Onset Cancer Mother lung non smoker Coronary Artery Disease Father Cancer Sister thyroid Social History Tobacco Use Smoking status: Former Current packs/day: 0.00 Types: Cigarettes Quit date: 12/30/2008 Years since quittin.4 Smokeless tobacco: Never Vaping Use Vaping status: Never Used Substance Use Topics Alcohol use: Yes Comment: wine Drug use: No REVIEW OF SYSTEMS Constitutional: (+) fatigue, (+) loss of appetite Musculoskeletal: (+) bilateral hand pain, (+) bilateral hand stiffness, (+) bilateral hand swelling, (+) finger tenderness, (+) arm pain, (-) burning hand pain Cardiovascular: (+) bilateral pedal swelling Neurological: (+) cold feet Psychiatric: (+) feeling on edge, (-) depressed mood, (-) anhedonia EXAM: BP 122/68 Pulse 96 Temp 36.7 C (98 F) (Left Tympanic) SpO2 92% PHYSICAL EXAM: GENERAL: NAD, alert and oriented. SKIN: Unremarkable, no rash or skin lesions. HEAD: Normocephalic. LUNGS: Clear to auscultation bilaterally but very diminished right base, no wheezes/rhonchi/rales. HEART: Regular rate and rhythm, no murmurs. No ectopy. EXTREMITIES: Mild swelling noted in hands and feet. No deformities, no skin discoloration. Hands vry stiff. NEURO: Awake, alert and oriented x3, cranial nerves II-XII grossly intact, normal gait, no involuntary motions. Sensation intact in feet. LABS: Labs: - CRP: Not elevated Imaging: - X-ray of the hands: No fractures identified ASSESSMENT/PLAN: 1. Bilateral hand pain (M79.641) - Chronic, severe bilateral hand pain and stiffness for 6 weeks, unresponsive to ibuprofen, meloxicam 15 mg daily, and diclofenac gel. - Differential includes rheumatoid arthritis and psoriatic arthritis. - Ordered repeat hand X-rays. - Ordered inflammatory markers to evaluate for rheumatoid and psoriatic arthritis. - Advised discontinuation of meloxicam due to lack of efficacy and increased risk of stroke and heart attack, especially in the context of cancer history. - Start duloxetine 20 mg daily for chronic pain management. - Advised continuation of hand exercises, with recommendation to perform them in warm water to reduce discomfort. - Discussed that prednisone is not indicated at this stage due to prior NSAID use and chronicity of symptoms. - Follow-up in 1 month to reassess pain control and consider duloxetine dose adjustment. 2. Screening for depression (Z13.31) 3. Encounter for screening examination for other mental health and behavioral disorders (Z13.39) - Patient denies depression or anxiety; PHQ-2 negative. 4. Mixed hyperlipidemia (E78.2) - Check labs 5. Essential hypertension (I10) - stable - Check CMP 6. Adenocarcinoma of right lung (HCC) (C34.91) - History of stage 4 lung cancer, no active treatment for several years. - Discussed increased risk of stroke and heart attack with NSAID use in the context of cancer history. 7. Hypomagnesemia (E83.42) - Check labs 8. Hypokalemia (E87.6) - check labs Reva Wasserman APRN.CNP documented in this encounter [facility] 06-02-2025 Telephone encounter Note Noted. Ruba Trujillo APRN.CNP [facility] 06-02-2025 Miscellaneous Notes Noted. Ruba Trujillo APRN.CNP Phoned pt, notified of provider response. She states she was only to follow up with Ortho as needed. Advised pt to reach out to Ortho for appt to discuss her concerns. Pt states she will contact [facility] for appt. Eyad Umaña LPN That is the maximum meloxicam dose. It looks like she was going to have a follow-up with [facility] at the end of the month. Is that still scheduled? Pt was seen by Osei Trujillo CNP on 05/23/25 and was ordered Meloxicam for osteoarthritis of her hands and also was recently ordered macrobid for UTI. Pt was instructed to call provider's office with an update on her hands in 2 weeks. Pt calling to update Ruba that her hands still hurt badly. States it "hurts to write" and "hurts to wipe her tush". Tylenol ineffective. Also reports she did not realize that her Meloxicam used to be 7.5 mg mg BID and Ruba changed it to 15 mg daily and pt states that was not an increase. Pt asking if Meloxicam can be increased? States she saw Ortho and does her hand exercises. Reports her stomach did feel off for a couple days last week but is improving. No nausea or vomiting. Appetite remains decreased. Please advise patient. Luba Guillaume RN documented in this encounter [facility] 06-02-2025 Telephone encounter Note Phoned pt, notified of provider response. She states she was only to follow up with Ortho as needed. Advised pt to reach out to Ortho for appt to discuss her concerns. Pt states she will contact [facility] for appt. Eyad Umaña LPN [facility] 06-02-2025 Telephone encounter Note That is the maximum meloxicam dose. It looks like she was going to have a follow-up with [facility] at the end of the month. Is that still scheduled? [facility] 06-01-2025 Telephone encounter Note Pt was seen by Osei Trujillo CNP on 05/23/25 and was ordered Meloxicam for osteoarthritis of her hands and also was recently ordered macrobid for UTI. Pt was instructed to call provider's office with an update on her hands in 2 weeks. Pt calling to update Ruba that her hands still hurt badly. States it "hurts to write" and "hurts to wipe her tush". Tylenol ineffective. Also reports she did not realize that her Meloxicam used to be 7.5 mg mg BID and Ruba changed it to 15 mg daily and pt states that was not an increase. Pt asking if Meloxicam can be increased? States she saw Ortho and does her hand exercises. Reports her stomach did feel off for a couple days last week but is improving. No nausea or vomiting. Appetite remains decreased. Please advise patient. Luba Guillaume RN [facility] 05-31-2025 Telephone encounter Note Scan on 05/30/2025 5:19 PM by ProviderVanna PA-C: Consultation - Hematology/Oncology [facility] 05-31-2025 Miscellaneous Notes Scan on 05/30/2025 5:19 PM by ProviderVanna PA-C: Consultation - Hematology/Oncology documented in this encounter [facility] 05-30-2025 Evaluation note Diagnosis Onset Date Resolution Non-small cell lung cancer with metastasis chronic May 1:37pm Recurrent pleural effusion on right chronic May 30 1:37pm Anemia acute May 30 1:45pm Chemotherapy follow-up examination acute May 30, 2025 1:45pm Chemotherapy management, encounter for acute May 30, 2025 1:45pm Constipation acute May 30, 2 025 1:45pm Dysuria acute May 30 1:45pm Educational circumstance acute May 30, 2025 1:45pm Epigastric pain acute May 1:45pm Hypokalemia acute May 30 1:45pm Hypomagnesemia acute May 30, 2025 1:45pm Pleural effusion acute May 1:45pm Pneumonitis acute May 30 1:45pm Non-small cell carcinoma of right lung, stage 4 chronic May 1:45pm Recurrent pleural effusion on right chronic May 30 1:45pm Rash resolved May 30 1:45pm port placement inactive May 30, 2025 1:45pm [employer] Work Phone: 1(835) 784-600107-15-2025 Evaluation note* Diagnosis Onset Date Resolution Status Admit Date Non-small cell lung cancer w ith metastasis chronic May 30, 2025 1:37pm Recurrent pleural effusion o n right chronic May 30, 2025 1:37pm Anemia acute May 30 1:45pm Chemotherapy follow-up examination acute May 30, 2025 1:45pm Chemotherapy management, encounter for acute May 30, 2025 1:45pm Constipation acute May 30, 2 025 1:45pm Dysuria acute May 30 1:45pm Educational circumstance acute May 30, 2025 1:45pm Epigastric pain acute May 1:45pm Hypokalemia acute May 30 1:45pm Hypomagnesemia acute May 30, 2025 1:45pm Pleural effusion acute May 1:45pm Pneumonitis acute May 30 1:45pm Non-small cell carcinoma of right lung, stage 4 chronic May 30, 2 025 1:45pm Recurrent pleural effusion o n right chronic May 30, 2025 1:45pm Rash resolved May 30 1:45pm port placement inactive May 30, 2025 1:45pm Overactive bladder acute July 04, 2025 2:46pm Urge incontinence acute July 04, 2025 2:46pm UTI (urinary tract infection) acute July 04, 2025 2:46pm [employer] Work Phone: 1(947) 989-403507-11-2025 Telephone encounter Note* Telephone Encounter - Eyad Umaña LPN - 05/26/2025 4:35 PM EDT Pt notified of results/provider instructions. She verbalized understanding. Eyad Umaña LPN [facility]07-11-2025 Miscellaneous Notes* Telephone Encounter - Eyad Umaña LPN - 05/26/2025 4:35 PM EDT Pt notified of results/provider instructions. She verbalized understanding. Eyad Umaña LPN * Telephone Encounter - Ruba Trujillo APRN.CNP - 05/26/2025 4:30 PM EDT Can please let patient know that I received her urine culture back, which did confirm a urinary infection. I went ahead and sent macrobid to the pharmacy. It will be one pill twice daily X 1 week. Ruba Trujillo APRN.CNP [facility] Telephone encounter Note * Telephone Encounter - Ruba Trujillo APRN.CNP - 05/26/2025 4:30 PM EDT Can please let patient know that I received her urine culture back, which did confirm a urinary infection. I went ahead and sent macrobid to the pharmacy. It will be one pill twice daily X 1 week. Ruba Trujillo APRN.MARLENA [facility]07-08-2025 NoteHNO ID: [id number] Author: RUBA TRUJILLO APRN.CNP Service: ? Author Type: Nurse Practitioner Type: Progress Notes Filed: 05/23/2025 17:52 Note Text: This is a 79 year old female who presents today with: Trish Hunt is an 79-year-old female with a history of cancer, presenting for follow-up of hand pain and swelling, and discussing recent weight loss. HISTORY OF PRESENT ILLNESS: Hand Pain and Swelling: - Sudden onset of severe hand pain in January, described as feeling like hands were "on fire." - Pain has improved slightly but remains significant, especially in the morning. - Pain radiates to shoulders. - Noted swelling in fingers, with tenderness at the joints. - Recent x-rays showed arthritis. - Recently started on meloxicam by [facility] at [facility], with some improvement in pain intensity. - Also using Voltaren, lidocaine, for pain relief. - Avoiding ibuprofen; taking Tylenol with some relief. - Compression gloves provide some relief. - Pain impacts ability to sam, a significant hobby. Weight Loss: - Decreased appetite, with food not tasting good. - Reports feeling content to sit and watch the world go by. - Occasional flashes of hunger but unsure of what to eat. - Noted weight of 199 lbs. (Last visit 04/25 --- 192; 04/07 -- 198). Hot Flashes: - Experiencing less frequent and shorter hot flashes. 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 Hypothyroid Lung cancer (HCC) Non-small cell carcinoma of right lung, stage 4 Metabolic syndrome Other and unspecified hyperlipidemia Overactive bladder Unspecified essential hypertension PAST SURGICAL HISTORY Procedure Laterality Date CHOLECYSTECTOMY COLONOSCOPY FLX DX W/COLLJ SPEC WHEN PFRMD 12/14/2012 Colonoscopy COLSC FLX W/RMVL OF TUMOR POLYP LESION SNARE TQ 03/18/16 multiple polyps - 3 year follow up PAST SURGICAL HISTORY OF lumbosacral nerve root decompression PAST SURGICAL HISTORY OF bladder stim SIGMOIDOSCOPY FLX DX W/COLLJ SPEC BR/WA IF PFRMD 07/05/13 Sigmoidoscopy, flexible/colonoscopy needed in 1 year ALLERGIES Codeine, Lisinopril, Morphine, Septra [Sulfamethoxazole-Trimethoprim], Sulfa (Sulfonamide Antibiotics), and Vicodin [Hydrocodone-Acetaminophen] MEDICATIONS Current Outpatient Medications Medication Sig meloxicam (MOBIC) 15 mg tablet Take 1 tablet by mouth once daily. With food. omeprazole (PRILOSEC) 20 mg capsule Take 1 capsule by mouth once daily. MYRBETRIQ 50 mg Tb24 Take 2 tablets by mouth once daily. Bisacodyl (DULCOLAX) 5 mg tab Take 5 mg by mouth as needed for constipation. Methenamine Hippurate (HIPREX) 1 gram tablet Take 1 g by mouth two times a day with meals. docusate sodium (COLACE) 100 mg capsule Can take up to six or eight at night multivitamin tablet Take 1 tablet by mouth once daily. No current facility-administered medications for this visit. FAMILY HISTORY Problem Relation Age of Onset Cancer Mother lung non smoker Coronary Artery Disease Father Cancer Sister thyroid Social History Tobacco Use Smoking status: Former Current packs/day: 0.00 Types: Cigarettes Quit date: 12/30/2008 Years since quittin.4 Smokeless tobacco: Never Vaping Use Vaping status: Never Used Substance Use Topics Alcohol use: Yes Comment: wine Drug use: No REVIEW OF SYSTEMS Constitutional: (+) decreased appetite Musculoskeletal: (+) hand pain, (+) shoulder pain, (+) finger swelling Cardiovascular: (+) ankle swelling Endocrine: (+) hot flashes EXAM: BP 146/86 Pulse 93 Resp 16 Wt 90.3 kg (199 lb) SpO2 96% BMI 34.16 kg/m? PHYSICAL EXAM: General Appearance: Well appearing, alert, in no acute distress, well-hydrated, well nourished.. Skin: Skin color, texture, turgor normal, no suspicious rashes or lesions. Head: Normocephalic, no masses, lesions, tenderness or abnormalities. Eyes: Anicteric sclera. Extraocular movements are intact. . Lungs: Lungs clear to auscultation. Decreased right base. No wheezing, rhonchi, rales.. Heart: RRR without murmur, gallop, or rubs. No ectopy. Extremities: No deformities, + 1 edema, skin discoloration, clubbing or cyanosis. Good capillary refill. . Neurologic: Gait normal. ASSESSMENT/PLAN 1. Primary osteoarthritis of both hands (M19.041) - Diagnosed by [facility] at [facility]; X-rays showed significant arthritic changes. - Currently on meloxicam, experiencing some relief. - Discussed increasing meloxicam dosage; last kidney function wnl. - Advised to continue taking meloxicam with food to minimize gastrointestinal irritation. - Continue use of Tylenol as needed for additional pain relief. - Patient using Voltaren and Lidocaine topically; continue as needed. - Patient finds relief with compression gloves; advised to continue use. - Follow-up with [facility] T[facility]ER at [facility] if no improvement by end of (more content not included)...[facility]07-08-2025 History of Present illness Narrative* Ruba Trujillo APRN.FAMILY PROTECTION SPECIALIST - 05/23/2025 5:47 PM EDT This is a 79 year old female who presents today with: Trish Hunt is an 79-year-old female with a history of cancer, presenting for follow-up of hand pain and swelling, and discussing recent weight loss. HISTORY OF PRESENT ILLNESS: Hand Pain and Swelling: - Sudden onset of severe hand pain in January, described as feeling like hands were "on fire." - Pain has improved slightly but remains significant, especially in the morning. - Pain radiates to shoulders. - Noted swelling in fingers, with tenderness at the joints. - Recent x-rays showed arthritis. - Recently started on meloxicam by [facility] at [facility], with some improvement in pain intensity. - Also using Voltaren, lidocaine, for pain relief. - Avoiding ibuprofen; taking Tylenol with some relief. - Compression gloves provide some relief. - Pain impacts ability to sam, a significant hobby. Weight Loss: - Decreased appetite, with food not tasting good. - Reports feeling content to sit and watch the world go by. - Occasional flashes of hunger but unsure of what to eat. - Noted weight of 199 lbs. (Last visit 04/25 --- 192; 04/07 -- 198). Hot Flashes: - Experiencing less frequent and shorter hot flashes. 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 Hypothyroid Lung cancer (HCC) Non-small cell carcinoma of right lung, stage 4 Metabolic syndrome Other and unspecified hyperlipidemia Overactive bladder Unspecified essential hypertension PAST SURGICAL HISTORY Procedure Laterality Date CHOLECYSTECTOMY COLONOSCOPY FLX DX W/COLLJ SPEC WHEN PFRMD 12/14/2012 Colonoscopy COLSC FLX W/RMVL OF TUMOR POLYP LESION SNARE TQ 03/18/16 multiple polyps - 3 year follow up PAST SURGICAL HISTORY OF lumbosacral nerve root decompression PAST SURGICAL HISTORY OF bladder stim SIGMOIDOSCOPY FLX DX W/COLLJ SPEC BR/WA IF PFRMD 07/05/13 Sigmoidoscopy, flexible/colonoscopy needed in 1 year ALLERGIES Codeine, Lisinopril, Morphine, Septra [Sulfamethoxazole-Trimethoprim], Sulfa (SulfonamideAntibiotics), and Vicodin [Hydrocodone-Acetaminophen] MEDICATIONS Current Outpatient Medications Medication Sig meloxicam (MOBIC) 15 mg tablet Take 1 tablet by mouth once daily. With food. omeprazole (PRILOSEC) 20 mg capsule Take 1 capsule by mouth once daily. MYRBETRIQ 50 mg Tb24 Take 2 tablets by mouth once daily. Bisacodyl (DULCOLAX) 5 mg tab Take 5 mg by mouth as needed for constipation. Methenamine Hippurate (HIPREX) 1 gram tablet Take 1 g by mouth two times a day with meals. docusate sodium (COLACE) 100 mg capsule Can take up to six or eight at night multivitamin tablet Take 1 tablet by mouth once daily. No current facility-administered medications for this visit. FAMILY HISTORY Problem Relation Age of Onset Cancer Mother lung non smoker Coronary Artery Disease Father Cancer Sister thyroid Social History Tobacco Use Smoking status: Former Current packs/day: 0.00 Types: Cigarettes Quit date: 12/30/2008 Years since quittin.4 Smokeless tobacco: Never Vaping Use Vaping status: Never Used Substance Use Topics Alcohol use: Yes Comment: wine Drug use: No REVIEW OF SYSTEMS Constitutional: (+) decreased appetite Musculoskeletal: (+) hand pain, (+) shoulder pain, (+) finger swelling Cardiovascular: (+) ankle swelling Endocrine: (+) hot flashes EXAM: BP 146/86 Pulse 93 Resp 16 Wt 90.3 kg (199 lb) SpO2 96% BMI 34.16 kg/m PHYSICAL EXAM: General Appearance: Well appearing, alert, in no acute distress, well-hydrated, well nourished.. Skin: Skin color, texture, turgor normal, no suspicious rashes or lesions. Head: Normocephalic, no masses, lesions, tenderness or abnormalities. Eyes: Anicteric sclera. Extraocular movements are intact. . Lungs: Lungs clear to auscultation. Decreased right base. No wheezing, rhonchi, rales.. Heart: RRR without murmur, gallop, or rubs. No ectopy. Extremities: No deformities, + 1 edema, skin discoloration, clubbing or cyanosis. Good capillary refill. . Neurologic: Gait normal. ASSESSMENT/PLAN 1. Primary osteoarthritis of both hands (M19.041) - Diagnosed by [facility] at [facility]; X-rays showed significant arthritic changes. - Currently on meloxicam, experiencing some relief. - Discussed increasing meloxicam dosage; last kidney function wnl. - Advised to continue taking meloxicam with food to minimize gastrointestinal irritation. - Continue use of Tylenol as needed for additional pain relief. - Patient using Voltaren and Lidocaine topically; continue as needed. - Patient finds relief with compression gloves; advised to continue use. - Follow-up with CH[facility] T[facility]ER at [facility] if no improvement by end of the month, as scheduled. 2. Weight loss (R63.4) - Experiencing decreased appetite and occasional flashes of hunger. - Weight recorded at 199 lbs. - Discussed potential impact of pain on appetite. Weight stable. 3. Malignant neoplasm of unspecified part of right bronchus or lung (HCC) (C34.91) - Follow-up appointment with Dr. Gates on the , as scheduled. - Ensure all recent imaging and reports are available for review. 4. Abnormal urine findings (R82.90) - Previous urine analysis suspicious for infection. Did not return for recheck/urine culture. - Ordered repeat urine analysis to assess current status. - Patient on prophylactic low-dose antibiotic as prescribed by Dr. Herman. Discussed treatment plan and patient voices understanding. Patient's questions answered appropriately. Medications and potential side effects were discussed and patient voices understanding. Return to the office as scheduled or as needed for worsening/no improvement. Ruba Trujillo APRN.FAMILY PROTECTION SPECIALIST Recording using [employer] software for draft documentation of the visit was discussed with the patient/authorized sales representative uniforms; all questions welcomed and answered. Patient/authorized sales representative uniforms agreed to proceed [facility] Instructions* Patient Instructions* Ruba Trujillo APRN.FAMILY PROTECTION SPECIALIST - 05/23/2025 3:44 PM EDT - Meloxicam dose has been increased; take with food to protect your stomach lining. - Avoid taking any ibuprofen while on meloxicam. You may continue Tylenol as needed for extra pain relief. - If you develop heartburn or reflux contact our office. - We will monitor your kidney function with periodic labs; if results show any decline, we will pause meloxicam. - Update me in 2 weeks with an update on hand pain. [facility] Telephone encounter Note * Telephone Encounter - Mellisa Araya - 05/03/2025 8:09 AM EDT Scheduled port access for imaging Mellisa Nolascolins [facility]06-18-2025 Miscellaneous Notes* Telephone Encounter - Mellisa Araya - 05/03/2025 8:09 AM EDT Scheduled port access for imaging Mellisa Nolascolins * Telephone Encounter - Emma Whitehead PSS - 05/02/2025 4:36 PM EDT Pt would like to use port for appt on on 05/04/[address] prep @ 2:20 scan 3:20 Please call pt to confirm time documented in this [facility] Telephone encounter Note * Telephone Encounter - Emma Whitehead PSS - 05/02/2025 4:36 PM EDT Pt would like to use port for appt on on 05/04/[address] prep @ 2:20 scan 3:20 Please call pt to confirm time [facility]06-11-2025 Telephone encounter Note* Telephone Encounter - Eyad Umaña LPN - 04/26/2025 3:06 PM EDT Pt notified. She verbalized understanding. Eyad Umaña LPN [facility]06-11-2025 Miscellaneous Notes* Telephone Encounter - Eyad Umaña LPN - 04/26/2025 3:06 PM EDT Pt notified. She verbalized understanding. Eyad Umaña LPN * Telephone Encounter - Ruba Trujillo APRN.CNP - 04/26/2025 1:54 PM EDT Script sent. Ruba Trujillo APRN.MARLENA * Telephone Encounter - Eyad Umaña LPN - 04/26/2025 12:19 PM EDT TC to pt, notified of results/provider response. Pt states she does not drive so she relies on somebody for transportation. She states she would not be able to make it back to lab for urine culture before 05/03 d/t transportation issues. Pt aware culture is needed for appropriate treatment of suspected UTI. Pt is asking if provider will send 90 day rx for omeprazole to [facility]. Eyad Umaña LPN * Telephone Encounter - Ruba Trujillo APRN.CNP - 04/26/2025 8:59 AM EDT Can please let patient know that I received her labwork. Everything looks within normal. Her repeatthyroid labwork was normal. I would recheck her thyroid function in 6 months. Her urine is suspicious for an infection. Can we please have her return and give a urine culture. Iwent ahead and put this order in. Ruba Trujillo APRN.FAMILY PROTECTION SPECIALIST documented in this encounter[facility] Center06-[facility]-2025 Telephone encounter Note * Telephone Encounter - Ruba Trujillo APRN.CNP - 04/26/2025 1:54 PM EDT Script sent. Ruba Trujillo APRN.CNP [facility]06-11-[facility] Telephone encounter Note* Telephone Encounter - Eyad Umaña LPN - 04/26/2025 12:19 PM EDT TC to pt, notified of results/provider response. Pt states she does not drive so she relies on somebody for transportation. She states she would not be able to make it back to lab for urine culture before 05/03 d/t transportation issues. Pt aware culture is needed for appropriate treatment of suspected UTI. Pt is asking if provider will send 90 day rx for omeprazole to [facility]. Eyad Umaña LPN [facility]06-11-[facility] Telephone encounter Note* Telephone Encounter - Ruba Trujillo APRN.CNP - 04/26/2025 8:59 AM EDT Can please let patient know that I received her labwork. Everything looks within normal. Her repeatthyroid labwork was normal. I would recheck her thyroid function in 6 months. Her urine is suspicious for an infection. Can we please have her return and give a urine culture. Iwent ahead and put this order in. Ruba Trujillo APRN.CNP [facility]06-10-2025 NoteHNO ID: [id number] Author: RUBA TRUJILLO APRN.CNP Service: ? Author Type: Nurse Practitioner Type: Progress Notes Filed: 04/25/2025 18:26 Note Text: This is a 79 year old female who presents today with: Trish Hunt is an 79-year-old female with a history of lung cancer, accompanied by her daughter, presenting for evaluation of subclinical hypothyroidism, hot flashes, and bilateral hand pain. HISTORY OF PRESENT ILLNESS: Subclinical Hypothyroidism: - Recent lab work showed slightly elevated TSH with normal thyroid hormone levels. - No previous history of thyroid issues. - Reports fatigue and decreased energy levels over the past two months. - Decreased appetite and weight loss noted; current weight is 192 lbs, down from 198 lbs on 04/07. - Denies dizziness, syncope, or headaches. Hot Flashes: - Onset around the beginning of the year, with increasing frequency and intensity. - Experiences 5-6 episodes per day, lasting 3-5 minutes each. - Triggered by physical warmth, such as after a shower. - Episodes accompanied by sweating and a sensation of heat in the head. - Denies associated dizziness or shakiness. Bilateral Hand Pain: - Pain in hands and wrists, worsening over the past month. - Unable to sam due to pain, which has been present for about 1.5 months. - Describes pain as similar to a toothache, with occasional shooting sensations. - Pain has progressed up the arm. - No numbness or tingling reported. - Taking ibuprofen 200 mg, four tablets TID for the past month with some relief; denies effectiveness of Tylenol. Lung Cancer: - Diagnosed 7 years ago, treated with chemotherapy. - Partial right middle lobectomy performed. - Regular follow-ups with Dr. Jimenez, last seen in May of the previous year. - Scheduled for a port flush next week and a follow-up appointment on May 30. Urinary Incontinence: - Recently started on Myrbetriq and a low-dose antibiotic by Dr. Herman. - Previously on oxybutynin for years, discontinued last summer or early fall. - Reports frequent urination with variable volume; denies dysuria. Diet: - Decreased appetite, leading to weight loss. - Consumes beef jerky, dried cranberries, and trail mix. - Drinks water regularly. - Takes Senokot and Dulcolax for regular bowel movements; denies diarrhea or constipation. - Occasional hematochezia attributed to hemorrhoids; denies melena. Family Support: - Relies on daughters for support and transportation. - for 66 years; also has mobility issues. 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 Hypothyroid Lung cancer (HCC) Non-small cell carcinoma of right lung, stage 4 Metabolic syndrome Other and unspecified hyperlipidemia Overactive bladder Unspecified essential hypertension PAST SURGICAL HISTORY Procedure Laterality Date CHOLECYSTECTOMY COLONOSCOPY FLX DX W/COLLJ SPEC WHEN PFRMD 12/14/2012 Colonoscopy COLSC FLX W/RMVL OF TUMOR POLYP LESION SNARE TQ 03/18/16 multiple polyps - 3 year follow up PAST SURGICAL HISTORY OF lumbosacral nerve root decompression PAST SURGICAL HISTORY OF bladder stim SIGMOIDOSCOPY FLX DX W/COLLJ SPEC BR/WA IF PFRMD 07/05/13 Sigmoidoscopy, flexible/colonoscopy needed in 1 year ALLERGIES Codeine, Lisinopril, Morphine, Septra [Sulfamethoxazole-Trimethoprim], Sulfa (Sulfonamide Antibiotics), and Vicodin [Hydrocodone-Acetaminophen] MEDICATIONS Current Outpatient Medications Medication Sig MYRBETRIQ 50 mg Tb24 Take 2 tablets by mouth once daily. iv contrast (will be provided with radiology test) CT Chest ABD/PEL-Inject, intravenously, once for 1 dose.No IV access, insert saline lock prior to the beginning of sedation, infusion, injection of imaging exam. Discontinue saline lock post exam. If Pt. has a central line or IVAD, may access for administration according to line specific nursing protocol. Once exam is complete flush line and de-access according to line specific nursing protocol in the CT contrast administration guidelines link. enteric contrast (will be provided with radiology test) For CT CHESTABD/PEL W IVCON Routine order Administer, As Directed One Time Only, via Oral, Rectal, both Oral and Rectal, Enteric Tube, Stoma or Indwelling Catheter, Enteric Contrast as designated per enteric contrast guidelines Bisacodyl (DULCOLAX) 5 mg tab Take 5 mg by mouth as needed for constipation. Methenamine Hippurate (HIPREX) 1 gram tablet Take 1 g by mouth two times a day with meals. docusate sodium (COLACE) 100 mg capsule Can take up to six or eight at night multivitamin tablet Take 1 tablet by mouth once daily. No current facility-administered medications for this visit. FAMILY HISTORY Problem Relation Age of Onset Cancer Mother lung non smoker Coronary Artery Disease Father Cancer Sister thyroid S (more content not included)...[facility]06-10-2025 History of Present illness Narrative* Ruba Trujillo APRN.FAMILY PROTECTION SPECIALIST - 04/25/2025 6:19 PM EDT This is a 79 year old female who presents today with: Trish Hunt is an 79-year-old female with a history of lung cancer, accompanied by her daughter, presenting for evaluation of subclinical hypothyroidism, hot flashes, and bilateral hand pain. HISTORY OF PRESENT ILLNESS: Subclinical Hypothyroidism: - Recent lab work showed slightly elevated TSH with normal thyroid hormone levels. - No previous history of thyroid issues. - Reports fatigue and decreased energy levels over the past two months. - Decreased appetite and weight loss noted; current weight is 192 lbs, down from 198 lbs on 04/07. - Denies dizziness, syncope, or headaches. Hot Flashes: - Onset around the beginning of the year, with increasing frequency and intensity. - Experiences 5-6 episodes per day, lasting 3-5 minutes each. - Triggered by physical warmth, such as after a shower. - Episodes accompanied by sweating and a sensation of heat in the head. - Denies associated dizziness or shakiness. Bilateral Hand Pain: - Pain in hands and wrists, worsening over the past month. - Unable to sam due to pain, which has been present for about 1.5 months. - Describes pain as similar to a toothache, with occasional shooting sensations. - Pain has progressed up the arm. - No numbness or tingling reported. - Taking ibuprofen 200 mg, four tablets TID for the past month with some relief; denies effectiveness of Tylenol. Lung Cancer: - Diagnosed 7 years ago, treated with chemotherapy. - Partial right middle lobectomy performed. - Regular follow-ups with Dr. Jimenez, last seen in May of the previous year. - Scheduled for a port flush next week and a follow-up appointment on May 30. Urinary Incontinence: - Recently started on Myrbetriq and a low-dose antibiotic by Dr. Herman. - Previously on oxybutynin for years, discontinued last summer or early fall. - Reports frequent urination with variable volume; denies dysuria. Diet: - Decreased appetite, leading to weight loss. - Consumes beef jerky, dried cranberries, and trail mix. - Drinks water regularly. - Takes Senokot and Dulcolax for regular bowel movements; denies diarrhea or constipation. - Occasional hematochezia attributed to hemorrhoids; denies melena. Family Support: - Relies on daughters for support and transportation. - for 66 years; also has mobility issues. 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 Hypothyroid Lung cancer (HCC) Non-small cell carcinoma of right lung, stage 4 Metabolic syndrome Other and unspecified hyperlipidemia Overactive bladder Unspecified essential hypertension PAST SURGICAL HISTORY Procedure Laterality Date CHOLECYSTECTOMY COLONOSCOPY FLX DX W/COLLJ SPEC WHEN PFRMD 12/14/2012 Colonoscopy COLSC FLX W/RMVL OF TUMOR POLYP LESION SNARE TQ 03/18/16 multiple polyps - 3 year follow up PAST SURGICAL HISTORY OF lumbosacral nerve root decompression PAST SURGICAL HISTORY OF bladder stim SIGMOIDOSCOPY FLX DX W/COLLJ SPEC BR/WA IF PFRMD 07/05/13 Sigmoidoscopy, flexible/colonoscopy needed in 1 year ALLERGIES Codeine, Lisinopril, Morphine, Septra [Sulfamethoxazole-Trimethoprim], Sulfa (SulfonamideAntibiotics), and Vicodin [Hydrocodone-Acetaminophen] MEDICATIONS Current Outpatient Medications Medication Sig MYRBETRIQ 50 mg Tb24 Take 2 tablets by mouth once daily. iv contrast (will be provided with radiology test) CT Chest ABD/PEL-Inject, intravenously, once for1 dose.No IV access, insert saline lock prior to the beginning of sedation, infusion, injection of imaging exam. Discontinue saline lock post exam. If Pt. has a central line or IVAD, may access for administration according to line specific nursing protocol. Once exam is complete flush line and de-access according to line specific nursing protocol in the CT contrast administration guidelines link. enteric contrast (will be provided with radiology test) For CT CHESTABD/PEL W IVCON Routine order Administer, As Directed One Time Only, via Oral, Rectal, both Oral and Rectal, Enteric Tube, Stoma orIndwelling Catheter, Enteric Contrast as designated per enteric contrast guidelines Bisacodyl (DULCOLAX) 5 mg tab Take 5 mg by mouth as needed for constipation. Methenamine Hippurate (HIPREX) 1 gram tablet Take 1 g by mouth two times a day with meals. docusate sodium (COLACE) 100 mg capsule Can take up to six or eight at night multivitamin tablet Take 1 tablet by mouth once daily. No current facility-administered medications for this visit. FAMILY HISTORY Problem Relation Age of Onset Cancer Mother lung non smoker Coronary Artery Disease Father Cancer Sister thyroid Social History Tobacco Use Smoking status: Former Current packs/day: 0.00 Types: Cigarettes Quit date: 12/30/2008 Years since quittin.3 Smokeless tobacco: Never Vaping Use Vaping status: Never Used Substance Use Topics Alcohol use: Yes Comment: wine Drug use: No REVIEW OF SYSTEMS Constitutional: (+) weight loss, (+) fatigue Head: (-) headaches Eyes: (+) eye strain, (-) vision changes Ears/Nose/Mouth/Throat: (+) dysphagia Cardiovascular: (+) peripheral edema, (-) syncope Gastrointestinal: (+) decreased appetite, (+) rectal bleeding, (-) heartburn, (- ) indigestion, (-) diarrhea, (-) constipation, (-) abdominal pain, (-) melena Genitourinary: (+) urinary frequency, (-) dysuria Musculoskeletal: (+) bilateral hand pain, (+) bilateral wrist pain Neurological: (-) dizziness, (-) numbness/tingling Endocrine: (+) hot flashes EXAM: BP 152/80 Pulse 98 Resp 16 Wt 87.1 kg (192 lb) SpO2 91% BMI 32.96 kg/m PHYSICAL EXAM: General Appearance: Well appearing, alert, in no acute distress, well-hydrated, well nourished.. Skin: Skin color, texture, turgor normal, no suspicious rashes or lesions. Head: Normocephalic, no masses, lesions, tenderness or abnormalities. Eyes: Anicteric sclera. Extraocular movements are intact. . Neck: Supple, no adenopathy; thyroid symmetric, normal size, no bruits. Lungs: Lungs clear to auscultation. No wheezing, rhonchi, rales.. Heart: RRR without murmur, gallop, or rubs. No ectopy. Abdomen: Abdomen soft, with some asymmetry and firmness in the right mid -upper abdomen. Non-tender. Bowel sounds normal. Extremities: No deformities, edema, skin discoloration, clubbing or cyanosis. Good capillary refill. . Neurologic: Gait normal. ASSESSMENT/PLAN 1. Abnormal thyroid function test (R94.6) - Recent labs indicate subclinical hypothyroidism with a slightly elevated TSH and normal free T4. - Educated patient and daughter on the function of the pituitary gland and its role in regulating thyroid activity. - Ordered repeat thyroid function tests to reassess TSH and hormone levels. - Discussed potential trial of low-dose thyroid medication if repeat labs remain abnormal. 2. Weight loss (R63.4) - Noted weight loss from 198 lbs on April 07 to 192 lbs today. (Was 208 last year). - Decreased appetite possibly contributing to weight loss. - Ordered CT scan of the abdomen and pelvis to rule out any underlying pathology. - Ordered stool test for occult blood to check for gastrointestinal bleeding. - Advised patient to increase protein intake and maintain adequate nutrition. 3. Intra-abdominal and pelvic swelling, mass and lump, unspecified site (R19.00) - Noted firmness in the right side of the abdomen on physical exam. - Ordered CT scan of the abdomen and pelvis to evaluate for any masses or abnormalities. 4. Adenocarcinoma of right lung (HCC) (C34.91) - History of adenocarcinoma of the right lung with partial right middle lobectomy performed. She is due for yearly lung CT for oncology. - Discussed ordering a CT scan of the chest to coincide with the abdominal and pelvic scans. - Will ensure that imaging results are available for review by Dr. Jimenez before the next oncology appointment on May 30. 5. Bilateral hand pain (M79.641) - Pain localized primarily in the wrists, with positive Tinel's sign indicating possible carpal tunnel syndrome. - Advised use of wrist splints, especially during sleep, to maintain a neutral position and reduce nerve compression. - Discussed potential referral to orthopedics for further evaluation and possible corticosteroid injection if symptoms persist. - Patient currently taking ibuprofen 800 mg TID for pain management. - Educated on risks of high-dose NSAID use, including gastrointestinal bleeding and renal impairment. - Recommended alternating ibuprofen with acetaminophen for pain control. - Prescribed Prilosec to protect the gastric mucosa from NSAID-induced damage. Discussed treatment plan and patient voices understanding. Patient's questions answered appropriately. Medications and potential side effects were discussed and patient voices understanding. Return to the office as scheduled or as needed for worsening/no improvement. Ruba Trujillo APRN.FAMILY PROTECTION SPECIALIST Recording using MiniBra[employer] software for draft documentation of the visit was discussed with the patient/authorized sales representative uniforms; all questions welcomed and answered. Patient/authorized sales representative uniforms agreed to proceed documented in this encounterU[facility]06-10-[facility]25 Instructions* Patient Instructions* Ruba Trujillo APRN.CNP - 04/25/2025 3:28 PM EDT - Start omeprazole (Prilosec) 20 mg by mouth once daily to protect your stomach from the anti-inflammatory medication. - Obtain wrist cock-up splints for both hands and wear them at night (and during crocheting or similar activities) to relieve carpal tunnel pressure. - Get additional labwork completed. - CT scans ordered. - Complete the stool occult blood test as ordered to check for hidden gastrointestinal bleeding. - Decrease the ibuprofen use, as it is hard on the kidneys and stomach. Add tylenol into the regimen. -Recheck in 1 month documented in this encounterU[facility] Center05-23-2025 NoteHNO ID: [id number] Author: NORA GUERRERO MD Service: ? Author Type: Physician Type: Progress Notes Filed: 04/07/2025 10:29 Note Text: Trish Hunt is a 79 year old female who presents for problem visit Hot flashes for 3 month(s). HPI: Menopause late 40's and early 50's. Was a patient of Dr. Mcclendon. Was on HRT for about 1 year. Since then she had no further vasomotor symptoms until 3 months ago. She started feeling more warm, flush, hair drenched in sweat, and intolerance to temperature changes. She has this several times a day. No other new symptoms that are associated with this. No medication changes around the time of onset of hot flashes. 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 Hypothyroid Lung cancer (HCC) Non-small cell carcinoma of right lung, stage 4 Metabolic syndrome Other and unspecified hyperlipidemia Overactive bladder Unspecified essential hypertension PAST SURGICAL HISTORY Procedure Laterality Date CHOLECYSTECTOMY COLONOSCOPY FLX DX W/COLLJ SPEC WHEN PFRMD 12/14/2012 Colonoscopy COLSC FLX W/RMVL OF TUMOR POLYP LESION SNARE TQ 03/18/16 multiple polyps - 3 year follow up PAST SURGICAL HISTORY OF lumbosacral nerve root decompression PAST SURGICAL HISTORY OF bladder stim SIGMOIDOSCOPY FLX DX W/COLLJ SPEC BR/WA IF PFRMD 07/05/13 Sigmoidoscopy, flexible/colonoscopy needed in 1 year FAMILY HISTORY Problem Relation Age of Onset Cancer Mother lung non smoker Coronary Artery Disease Father Cancer Sister thyroid Social History Tobacco Use Smoking status: Former Current packs/day: 0.00 Types: Cigarettes Quit date: 12/30/2008 Years since quittin.2 Smokeless tobacco: Never Vaping Use Vaping status: Never Used Substance Use Topics Alcohol use: Yes Comment: wine Drug use: No Current Outpatient Medications Medication Sig Methenamine Hippurate (HIPREX) 1 gram tablet Take 1 g by mouth two times a day with meals. docusate sodium (COLACE) 100 mg capsule Can take up to six or eight at night gabapentin (NEURONTIN) 300 mg capsule Take 1 capsule by mouth daily at bedtime for 180 days. prn multivitamin tablet Take 1 tablet by mouth once daily. Bisacodyl (DULCOLAX) 5 mg tab Take 5 mg by mouth as needed for constipation. oxybutynin (DITROPAN) 5 mg tablet 3 to 4 times a day (Patient not taking: Reported on 04/07/2025) No current facility-administered medications for this visit. Allergies As of Date: 04/07/2025 Allergen Noted Reaction CODEINE 10/13/2005 Vomiting LISINOPRIL 05/24/2013 Cough MORPHINE 12/24/2018 Mental Status Change SEPTRA [SULFAMETHOXAZOLE-TRIMETHO*10/13/2005 SULFA (SULFONAMIDE ANTIBIOTICS) 10/13/2005 VICODIN [HYDROCODONE-ACETAMINOPHE*09/28/2012 GI Upset Fully Assessed 03/03/2024 REVIEW OF SYSTEMS Expanded ROS: N/A Allergies and current medication updated:Yes SENSITIVE EXAM: Sensitive exam not performed. EXAM: Wt 198 lb (89.8kg) GENERAL: pleasant, female in no apparent distress CHEST: Normal inspiratory effort NEURO: exam grossly non-focal EXTREMITIES: normal ASSESSMENT AND PLAN: Assessment AND Plan Hot flashes Orders: COMPREHENSIVE METABOLIC PANEL; Future COMPLETE BLOOD COUNT AND DIFFERENTIAL; Future HEMOGLOBIN A1C; Future TSH W/REFLEX FT4; Future History of lung cancer Orders: COMPREHENSIVE METABOLIC PANEL; Future COMPLETE BLOOD COUNT AND DIFFERENTIAL; Future HEMOGLOBIN A1C; Future TSH W/REFLEX FT4; Future Hypothyroidism, unspecified type Orders: COMPREHENSIVE METABOLIC PANEL; Future COMPLETE BLOOD COUNT AND DIFFERENTIAL; Future HEMOGLOBIN A1C; Future TSH W/REFLEX FT4; Future New onset hot flashes for 3 months. Labs ordered as above and recommend scheduling with PCP. Nora Guerrero DO Medical Decision Making: Problems: Moderate: New problem with uncertain prognosis Data: Unique test(s) ordered: 3+ Medical Decision Making Level: 4 - [facility] Discharge summary Author Max Lau [facility] March 08, 2024 10:24pm Note Date/Time March 08, 2024 6:1 [facility] Department [address] [place] [address] Emergency Department Summary 03/08/24 MR#: [id number] Acct: [id number] Name: TRISH HUNT Rep #:[id number] : 1945 78 From: Max Lau MD PCP: Dr. 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 She complains that she has had bilateral leg swelling on and off for quite some time. She went to see her primary care provider, but saw the nurse practitioner instead who did multiple tests and imaging regarding her leg swelling. She states that she had a CT of the chest and CT of the abdomen and pelvis performed recently, a few days ago. They called her with the results and told her that she needed to have a CT of the chest performed with IV contrast with questionable concern for a blood clot. She denies any chest pain or shortness of breath. Her leg swelling has improved. She presents because she was told that she needed to have imaging performed immediately. PFSH PFSH Medical History Back pain of thoracolumbar region Diabetes Disseminated malignancy GERD (gastroesophageal reflux disease) HTN (hypertension) Hyperlipidemia associated with type 2 diabetes mellitus Hypothyroidism Hypothyroidism L4-L5 decompression Mass of middle lobe of right lung Metastatic cancer Morbid (severe) obesity due to excess calories Non-small cell carcinoma of right lung, stage 4 Peripheral neuropathy Pleural effusion, right port placement Home Medications levothyroxine 50 mcg tablet 50 mcg PO DAILY thyroid 08/11/18 [History Last Taken 01/14/21] wblnydwuqqsm-Kh-lfur-minerals 1 ea PO DAILY diet supplement 08/11/18 [History Last Taken 05/12/19] simvastatin 20 mg tablet 20 mg PO QHS high cholesterol 08/11/18 [History Last Taken 05/11/19] hydrochlorothiazide 12.5 mg tablet 12.5 mg PO DAILY WATER PILL 12/29/18 [History Last Taken 05/12/19] oxybutynin chloride 5 mg tablet 5 mg PO TID #90 tabs 01/06/19 [Rx Last Taken 01/14/21] ibuprofen 200 mg tablet 400 - 600 mg PO Q6H PRN PRN Pain 05/12/19 [History Last Taken 05/12/19] magnesium oxide 400 mg PO DAILY supplement 30 days #30 tabs 06/11/20 [Rx Last Taken Unknown] ondansetron 4 mg disintegrating tablet 4 mg PO Q8H PRN PRN Nausea #10 tabs 11/23/20 [Rx Last Taken Unknown] bisacodyl 5 mg tablet,delayed release (Dulcolax (bisacodyl)) 5 mg PO ONCE PRN constipation 05/06/21 [History Last Taken Unknown] potassium chloride 20 mEq tablet,extended release(part/cryst) 20 meq PO DAILY potassium 05/06/21 [History Last Taken Unknown] sennosides 8.6 mg capsule (senna) 25.8 mg PO BID 05/06/21 [History Last Taken Unknown] Allergy/AdvReac Type Severity Reaction Status Date / Time phenazopyridine Allergy Nausea Verified 03/08/24 17:31 [From Pyridium] codeine AdvReac Severe Nausea/Vom/ Verified 03/08/24 17:31 Diarrhea hydrocodone [From Vicodin] AdvReac Severe Nausea/Vom/ Verified 03/08/24 17:31 Diarrhea morphine AdvReac Severe severe Verified 03/08/24 17:31 sedation lisinopril AdvReac Intermediate cough Verified 03/08/24 17:31 Sulfa (Sulfonamide AdvReac Intermediate Unknown Verified 03/08/24 17:31 Antibiotics) sulfamethoxazole AdvReac Intermediate Unknown Verified 03/08/24 17:31 [From ] trimethoprim [From ] AdvReac Intermediate Unknown Verified 03/08/24 17:31 Family History Father Heart problem Mother Lung cancer Sister Lung cancer Surgical History History of tonsillectomy Hx of cholecystectomy Hx of hemorrhoidectomy Social History housing: house Smoking Status: Former smoker ROS ROS ED ROS Narrative Constitutional: No fever, no chills. HEENT: No sore throat. No neck pain. No loss of vision. No rhinorrhea. Cardiovascular: No chest pain. No palpitations. Bilateral pedal edema. Respiratory: No cough, no shortness of breath. Abdominal: No abdominal pain. No nausea. No vomiting. Genitourinary: No dysuria. No hematuria. Musculoskeletal: No myalgias. No arthralgias. Neurologic: No headaches. No dizziness. No lightheadedness. Skin: No rash. No change in color. Psychiatric: No depression. No anxiety. EXAM Physical Exam Narrative Exam Narrative: Afebrile. Vital signs noted. HEENT: Normocephalic. Atraumatic. PERRL, EOMI. Neck soft and supple. No pointtenderness or step off. Cardiovascular: Regular rate and rhythm. No murmurs, rubs, or gallops appreciated. Respiratory: No tachypnea. Lungs clear to auscultation bilaterally. Gastrointestinal: Abdomen soft, nontender, with normoactive bowel sounds. No rebound or guarding. Neurological: Awake. Alert. Nonfocal, nonlateralizing. Skin: No rash. Normal color. No pallor. Musculoskeletal: Positive bilateral pedal edema. Full range of motion extremities. Const Vital Signs: 03/08/24 17:32 03/08/24 17:49 03/08/24 19:30 Temperature 97.1 F L 97.3 F L Temperature Source Temporal Tympanic Pulse Rate 94 88 Respiratory Rate 18 Respiratory Effort Normal Respiratory Pattern Normal Blood Pressure 151/62 H 148/61 H Blood Pressure Mean 91 90 Pulse Ox 94 97 Oxygen Delivery Method Room Air Room Air 03/08/24 22:08 Temperature Temperature Source Pulse Rate 84 Respiratory Rate 16 Respiratory Effort Respiratory Pattern Blood Pressure 132/78 H Blood Pressure Mean 96 Pulse Ox Oxygen Delivery Method MDM MDM MDM Narrative Medical decision making narrative: I reviewed the patient's outpatient results. She does have compression fractures noted as previous. The radiology report does say that there is the possibility of a clot in the right main pulmonary vein, not the artery versus mass. They recommend CT of the chest with IV contrast for further evaluation. I did review her previous BMP and her GFR was slightly low in the 50s. She doeshave a PowerPort in place. She will be bolused IV fluids and CBC and BMP obtained again to make sure that she does not have a decrease in her GFR given her recent dye load. CT of the chest with IV contrast was ordered. I reviewed her laboratory work initially, and she has normal white count of 4.8,hemoglobin normal at 12.8, platelet count normal at 234. Her BUN is normal at 14 and creatinine slightly elevated at 1.09 from prior. Glucoses appropriately elevated at 111 with an anion gap low at 3. I reviewed the radiology report of the CT of the chest with IV contrast. There is no evidence of a pulmonary vein clot as seen on her prior CT without contrast. At this point in time, she is without complaints. I feel she can be discharged to follow-up with her primary care provider as there is no interval change on her previous chest CT. Patient is comfortable with the plan. Return instructions reviewed. Disposition is discharged in stable condition. History & Record Review Discussion w/independent historian: Patient and Family Additional record(s) reviewed:: Prior outpatient record (CT with concern for possible clot in pulmonary vein.) and Prior labs Lab Data Attestation: I reviewed the patient's lab results. Labs: Laboratory Results - last 24 hr 03/08/24 18:14 WBC 4.8 RBC 4.27 Hgb 12.8 Hct 40.6 MCV 95.1 MCH 30.0 MCHC 31.5 L RDW Std Deviation 45.4 H RDW Coeff of Lalit 12.9 Plt Count 234 MPV 10.0 Immature Gran % (Auto) 0.400 Neut % (Auto) 64.7 Lymph % (Auto) 20.4 [place] % (Auto) 8.2 Eos % (Auto) 5.7 H Baso % (Auto) 0.6 Absolute Neuts (auto) 3.1 Absolute Lymphs (auto) 0.97 Nucleated RBC % 0 Sodium 141 Potassium 3.9 Chloride 108 H Carbon Dioxide 30.0 Anion Gap 3 L BUN 14 Creatinine 1.09 H Estim Creat Clear Calc 44.60 Est GFR (MDRD) Af Amer 62 Est GFR (MDRD) Non-Af 51 L BUN/Creatinine Ratio 12.8 Glucose 111 H Calcium 8.5 Radiography Diagnostic Testing: Clinical Impression(s) from Imaging Studies Chest CT 03/08/24 18:04 IMPRESSION: No significant interval change from minimal increase in chronic right pleural effusion. No other significant change from May 25, 2023. No evidence to suggest pulmonary venous thrombosis on nonangiogram exam. Findings compatible with prior partial right middle lobe lobectomy with diminutive size, chronic collapse, and chronic truncated right middle lobe artery. Electronically Signed: Jim García MD at 22:03 EDT Reading Location ID and State: [facility] / [place] Tel , Service support , Discharge Plan Triage Chief Complaint: Abn Labs ED Provider: Max Lau Dx/Rx/DC Orders Clinical Impression: Abnormal screening CT of chest, History of lung cancer, Encounter for medical screening examination Instructions: ED Screening Exam Medical Nonurgent Prescriptions: No Action senna 8.6 mg capsule 25.8 mg PO BID bisacodyl [Dulcolax (bisacodyl)] 5 mg tablet,delayed release (DR/EC) 5 mg PO ONCE PRN (Reason: constipation) levothyroxine 50 MCG tablet 50 mcg PO DAILY simvastatin 20 MG tablet 20 mg PO QHS bjuelwyqjhbp-Gz-ybar-minerals 1 EACH tablet 1 ea PO DAILY oxybutynin chloride 5 MG tablet 5 mg PO TID Qty: 90 3RF magnesium oxide 400 MG tablet 400 mg PO DAILY 30 Days Qty: 30 2RF hydrochlorothiazide 12.5 MG tablet 12.5 mg PO DAILY ibuprofen 200 MG tablet 400 - 600 mg PO Q6H PRN PRN (Reason: Pain) potassium chloride 20 mEq tablet,ER particles/crystals 20 meq PO DAILY ondansetron 4 MG tablet 4 mg PO Q8H PRN PRN (Reason: Nausea) Qty: 10 0RF Primary Care Provider: Emil Braswell Referrals: Emil Braswell MD [Primary Care Provider] - 1 Day Activity Restrictions/Additional Instructions: The CT of the chest that was performed today did not show any evidence of a pulmonary vein clot as seen on her previous CT. There were no acute changes from prior. Follow-up with your primary care provider tomorrow and let them know that your CT did not show evidence of clot. Disposition Disposition: Home, Self Care What to do if you have Problems For any increased pain, shortness of breath, bleeding, nausea or vomiting, chestpain, or any unexpected problems, contact your Primary Care Provider. Call [facility] ([phone]) or report to the closest Emergency Room. Call 911 if necessary. 03/08/242223 <Electronically signed by Max Lau MD> Cosigner Signature (if applicable): CC: Dr. Emil Braswell MD ~ Signed [facility] Work Phone: [phone]) 217-684404-23-2024 Telephone encounter Note* Telephone Encounter - Eyad Umaña LPN - 03/08/2024 2:38 PM EDT Information faxed to [facility]. Eyad Umaña LPN [facility]04-[facility] Miscellaneous Notes* Telephone Encounter - Eyad Umaña LPN - 03/08/2024 2:38 PM EDT Information faxed to [facility] ER. Eyad Umaña LPN * Telephone Encounter - Ruba Trujillo APRN.FAMILY PROTECTION SPECIALIST - 03/08/2024 2:23 PM EDT Report called over to [facility] ER. Will ask nursing to fax over hx/diagnostics. * Telephone Encounter - Eyad Umaña LPN - 03/08/2024 2:00 PM EDT TC to pt, notified of results/provider instructions. Pt relies on transportation. She will call daughter to take her to [facility] ER when daughter gets of work. Eyad Umaña LPN * Telephone Encounter - Ruba Trujillo APRN.CNP - 03/08/2024 1:44 PM EDT Can please let patient know that I received her CT results. It does show a couple of compression fractures in her back -- age is indeterminate, but when they compare to old chest xrays, it has been since 2018. It does show some fluid collections in the lungs. Her abdomen looked okay. There is a concern re: the right pulmonary vein that they are seeing. There is a concern that therecould potentially be a blood clot. For this reason, she needs additional imaging of her chest. I did discuss this with Dr. Braswell and we would like her to proceed to the emergency room for further evaluation and to get this imaging done. Can we please see where she is planning on going and we can give the ER a call. Ruba Trujillo APRN.MARLENA documented in this encounter[facility]04-23-[facility]24 Telephone encounter Note * Telephone Encounter - Ruba Trujillo APRN.CNP - 03/08/2024 2:23 PM EDT Report called over to [facility] ER. Will ask nursing to fax over hx/diagnostics. [facility] Work Phone: [phone] Telephone encounter Note* Telephone Encounter - Eyad Umaña LPN - 03/08/2024 2:00 PM EDT TC to pt, notified of results/provider instructions. Pt relies on transportation. She will call daughter to take her to [facility] ER when daughter gets of work. Eyad Umaña LPN [facility]04-23-[facility] Telephone encounter Note* Telephone Encounter - Ruba Trujillo APRN.MARLENA - 03/08/2024 1:44 PM EDT Can please let patient know that I received her CT results. It does show a couple of compression fractures in her back -- age is indeterminate, but when they compare to old chest xrays, it has been since 2018. It does show some fluid collections in the lungs. Her abdomen looked okay. There is a concern re: the right pulmonary vein that they are seeing. There is a concern that therecould potentially be a blood clot. For this reason, she needs additional imaging of her chest. I did discuss this with Dr. Braswell and we would like her to proceed to the emergency room for further evaluation and to get this imaging done. Can we please see where she is planning on going and we can give the ER a call. Ruba Trujillo APRN.FAMILY PROTECTION SPECIALIST [facility]04-18[facility] History of Present illness Narrative* Ann HanuegerNiya, RT(R) - 03/03/2024 3:00 PM EDT Radiology Service Progress Note DATE OF SERVICE: March 03, 2024 TIME: 3:27 PM PATIENT IDENTITY VERIFICATION COMPLETED USING TWO (2) STANDARD IDENTIFIERS: Name and Date of confirmed by patient verbally. FALL SCREENING: Has the patient had 2 falls in the last year or 1 fall with injury or currently using an Ambulatory Assistive Device (Walker, Cane, Wheelchair, Crutches, etc.)? No PATIENT GENDER DATA: Female. status: : No status: NO. PATIENT RELEVANT IMPLANT DATA REVIEWED: Yes PATIENT PRESENTS WITH AN IMPLANTABLE OR ATTACHED ART PREPARATOR: No ALLERGIES: Reviewed and unchanged CONTRAST ALLERGY: NO. EXAM: CT -CONTRAST INDUCED NEPHROPATHY RISK FACTORS: Patient age > 60 years CREATININE: Creatinine Date Value Ref Range Status 02/17/2024 1.08 (H) 0.58 - 0.96 mg/dL Final 02/25/2023 0.96 0.58 - 0.96 mg/dL Final 11/23/2000 1.0 0.7 - 1.4 mg/dL Final Estimated Glomerular Filtration Rate Date Value Ref Range Status 02/17/2024 52 (L) >=60 mL/min/1.73m Final Comment: Estimated Glomerular Filtration Rate (eGFR) is calculated using the 2020 CKD-EPI creatinine equation. This equation utilizes serum creatinine, sex, and age as parameters. The creatinine assay has traceable calibration to isotope dilution- mass spectrometry. Refer to KDIGO guidelines for clinical interpretation. In patients with unstable renal function, e.g. those with acute kidney injury, the eGFRmay not accurately reflect actual GFR. P.O.C.T. RESULTS: POC done: Yes, See Lab Tab March 03, 2024 TREATMENT: N/A PERIPHERAL IV DATA: power port accessed by hemoc RADIOLOGY DEPARTMENT: CT; Exam(s) Completed: Abdomen/Pelvis SIGNATURE: RT Kim(Dashawn) PATIENT NAME: Trish Hunt DATE: March 03, 2024 TIME: 3:27 PM documented in this encounterUc Medical Center04-18-2024 History of Present illness Narrative* Randee Walton RN - 03/03/2024 1:34 PM EDT Patient is here for IVAD port flush per Nursing [facility] protocol. IVAD is located in right upper chest. Site cleansed with Chloraprep IVAD accessed with a #20 gauge 3/4" non-coring Gripper needle Blood Return: Good Flushed with: 20 ml Normal Saline Non-coring needle left intact for scan. Opsite applied to puncture site. Port site negative for redness, edema or tenderness. Patient tolerated procedure well. documented in this encounterUc [facility] Center04-17-2024 Miscellaneous Notes* Telephone Encounter - Cayla Williamson - 03/02/2024 1:37 PM EDT Pt added on. Called and left vm for patient to come at 2 oclock for port access. Cayla Villafuerte * Telephone Encounter - Elvira Black LPN - 03/02/2024 1:05 PM EDT PSS- please put this patient in at 2:00 on the port schedule 03/03/2024, she is scheduled for CT. Chemo nurse aware. Elvira Black LPN * Telephone Encounter - Barbara Tang - 03/02/2024 12:48 PM EDT Lab/Port schedule is blocked for tomorrow afternoon. No staffing * Telephone Encounter - Emma Whitehead PSS - 03/02/2024 12:15 PM EDT Pt would like to use port for appt on 03/03/[address] @ 2 for prep 3 for scan Call pt to confirm time ok to talk to documented in this encounterUc Medical Center04-05-2024 Miscellaneous Notes* Telephone Encounter - Nataly Cummins RN - 02/19/2024 12:29 PM EDT Pt called and is notified of providers results and instructions. Pt voices understanding. Nataly Cummins RN * Telephone Encounter - Ruba Trujillo APRN.CNP - 02/19/2024 11:31 AM EDT Can please let patient know that I received her lab results. Everything looks fairly stable. Her kidney function is down just a little bit, but looks stable compared to when she had it last checked in May at [facility]. Please make sure she stays well hydrated. Ruba Trujillo APRN.MARLENA documented in this encounterUc Medical Center04-03-2024 Instructions* Patient Instructions* Ruba Trujillo APRN.CNP - 02/17/2024 2:11 PM EDT Get labs. Schedule CT scan. Continue to prop feet. Watch sodium. Try compression/support stockings. documented in this encounterUc Medical Center04-03-2024 History of Present illness Narrative* Ruba Trujillo APRN.CNP - 02/17/2024 1:34 PM EDT This is a 78 year old female who presents today with: Patient presents with: Acute Visit: Bilateral lower leg edema; worsening; R leg greater than L leg HISTORY OF PRESENT ILLNESS: Trish Hunt is a 78 year old female. Patient presents with: Acute Visit: Bilateral lower leg edema; worsening; R leg greater than L leg Pt presents today with complaint of foot/ankle swelling. Has noticed more since the first of the year. Refers that the she notices that the right leg swells worse than the left. Refers that it progresses throughout the day. Spends a lot of time in a chair. Has a chronic pain so needs to sit more. Sits in a recliner with feet up. No orthopnea. No CP/SOB. Gets some tingling in the feet. Denies high sodium diet. Has not used compression. Refers that she also feels that the right abdomen is more swollen than the left. Hx of stage IV lung CA. Due for follow-up in May. OTC medications to avoid constipation. No pain. No hematochezia/melena. Hx of colon polyps. 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 Hypothyroid Metabolic syndrome Other and unspecified hyperlipidemia Unspecified essential hypertension PAST SURGICAL HISTORY Procedure Laterality Date CHOLECYSTECTOMY COLONOSCOPY FLX DX W/COLLJ SPEC WHEN PFRMD 12/14/2012 Colonoscopy COLSC FLX W/RMVL OF TUMOR POLYP LESION SNARE TQ 03/18/16 multiple polyps - 3 year follow up PAST SURGICAL HISTORY OF lumbosacral nerve root decompression PAST SURGICAL HISTORY OF bladder stim SIGMOIDOSCOPY FLX DX W/COLLJ SPEC BR/WA IF PFRMD 07/05/13 Sigmoidoscopy, flexible/colonoscopy needed in 1 year ALLERGIES Codeine, Lisinopril, Morphine, Septra [Sulfamethoxazole-Trimethoprim], Sulfa (SulfonamideAntibiotics), and Vicodin [Hydrocodone-Acetaminophen] MEDICATIONS Current Outpatient Medications Medication Sig docusate sodium (COLACE) 100 mg capsule Can take up to six or eight at night gabapentin (NEURONTIN) 300 mg capsule Take 1 capsule by mouth daily at bedtime for 180 days. prn oxybutynin (DITROPAN) 5 mg tablet 3 to 4 times a day multivitamin tablet Take 1 tablet by mouth once daily. No current facility-administered medications for this visit. FAMILY HISTORY Problem Relation Age of Onset Cancer Mother lung non smoker Coronary Artery Disease Father Cancer Sister thyroid Social History Tobacco Use Smoking status: Former Types: Cigarettes Quit date: 12/30/2008 Years since quittin.1 Smokeless tobacco: Never Substance Use Topics Alcohol use: Yes Comment: wine Drug use: No EXAM: BP 146/82 Pulse 101 Resp 16 Wt 94.3 kg (208 lb) SpO2 93% BMI 35.70 kg/m PHYSICAL EXAM: General Appearance: Well appearing, alert, in no acute distress, well-hydrated, well nourished.. Skin: Skin color, texture, turgor normal, no suspicious rashes or lesions. Head: Normocephalic, no masses, lesions, tenderness or abnormalities. Eyes: Anicteric sclera. Extraocular movements are intact. . Lungs: Lungs clear to auscultation. No wheezing, rhonchi, rales.. Heart: RRR without murmur, gallop, or rubs. No ectopy. Abdomen: Abdomen soft, non-tender. No mass appreciated with body habitus, however + asymmetry of abdomen. Bowel sounds normal. No masses, organomegaly. Neurologic: Gait normal. ASSESSMENT/PLAN: 1. Swelling - ICD9: 782.3, ICD10: R60.9 (primary diagnosis) Prop legs. Compression. Limit sodium. Will get labs. - CBC + DIFF - BASIC METABOLIC PNL - HEPATIC FUNCTION PNL 2. Intra-abdominal and pelvic swelling, mass and lump, unspecified site - ICD9: 789.30, ICD10: R19.00 With hx of stage IV lung CA and colon polyps, will get imaging to r/o mass. - CT ABD/PEL W IVCON - IV CONTRAST (RADIOLOGY PROCEDURE) - ENTERIC CONTRAST (RADIOLOGY PROCEDURE) 3. Swelling abdomen - ICD9: 789.30, ICD10: R19.00 - CBC + DIFF - BASIC METABOLIC PNL - HEPATIC FUNCTION PNL 4. Type 2 diabetes mellitus without complication, without long-term current use of insulin (HCC) - ICD9: 250.00, ICD10: E11.9 - HGB A1C 5. Hypothyroidism, unspecified type - ICD9: 244.9, ICD10: E03.9 - TSH BLD - T4 FREE/FREE THYROX Discussed treatment plan and patient voices understanding. Patient's questions answered appropriately. Medications and potential side effects were discussed and patient voices understanding. Return to the office as scheduled or as needed for worsening/no improvement. Ruba Trujillo APRN.FAMILY PROTECTION SPECIALIST documented in this encounterUc Medical Center04-02-2024 Miscellaneous Notes* Telephone Encounter - Adriana Chowdary RN - 02/16/2024 11:57 AM EDT See other encounter triage 02/16/2204. Adriana Chowdary RN documented in this encounterUc Medical Center04-02-2024 Miscellaneous Notes* Telephone Encounter - Louann Miranda RN - 02/16/2024 11:20 AM EDT Patient call in for bilateral legs swelling off and on x a few months. Nurse Triage assessment completed with protocol recommending for disposition of See PCP in 24 hours. Care advice reviewed with patient, patient stated understanding. Patient advised to contact office or seek evaluation in urgent care or ER if symptoms persist or gets worse. Reason for Disposition [1] MODERATE leg swelling (e.g., swelling extends up to knees) AND [2] new-onset or worsening Answer Assessment - Initial Assessment Questions 1. ONSET: Comes and Goes; Patient states that this has been going on since the first of the year. 2. LOCATION: Both Legs Swollen 3. SEVERITY: Swelling does not go up to knee; States that leg feels tight, Starting to get neuropathy in legs and feet. 4. REDNESS: Denies Redness 5. PAIN: Yes, states that legs is just tender, not exactly a pain 6. FEVER: Denies Fever 7. CAUSE: Denies 8. MEDICAL HISTORY: Cancer; Stage 4 Lung 9. RECURRENT SYMPTOM: States she has occasionally before 10. OTHER SYMPTOMS: Denies other symptoms Protocols used: Leg Swelling and [id number] * Telephone Encounter - Eyad Umaña LPN - 02/16/2024 10:53 AM EDT Pt scheduled 02/16 "Same Day Visit, Legs & Feet Swelling". Please triage and make 40min appt d/t pt has not been seen in a year. documented in this encounterUc Medical Center04-20-2023 Miscellaneous Notes* Telephone Encounter - Ileana Ramos LPN - 03/05/2023 11:52 AM EDT Patient notified and verbalizes understanding. * Telephone Encounter - Emil Braswell MD - 03/05/2023 11:47 AM EDT I sent in a small supply of cipro. If issues continue, needs seen * Telephone Encounter - Louann Miranda RN - 03/05/2023 11:08 AM EDT Patient calls and states that although urinary symptoms are much better, she does not think UTI hascompletely gone away. Patient states that she is still having bladder spasms. Patient advised that there are orders to come in and recheck urine. Patient states that she does not think that she can come in to recheck urine. Patient asking if provider can send in another antibiotic prescription to [facility]? Please review and advise, Louann Miranda RN documented in this encounterUc Medical Center04-14-2023 Miscellaneous Notes* Telephone Encounter - Claudia Valdes - 02/27/2023 1:14 PM EDT Patient informed and verbalized understanding. Claudia Valdes * Telephone Encounter - Emil Braswell MD - 02/27/2023 12:56 PM EDT Ok. Recheck ua at next lab visit. Call if symptoms not resolved by end of antibiotic Rx started. Recheck liver and lipid in six weeks. * Telephone Encounter - Eyad Umaña LPN - 02/27/2023 9:05 AM EDT TC to pt, notified of results/provider response. Pt states she feels like the keflex seems to be helping, the pain/pressure seems to be lessening. Pt states she is interested in starting medication for cholesterol. Please send rx to [facility]. Eyad Umaña LPN * Telephone Encounter - Emil Braswell MD - 02/27/2023 8:35 AM EDT Urine shows definite uti. Is slightly resistent. Does she feel the keflex is helping her symtpoms? Labs are ok, except cholesterol is up. Is she interested in trying any medication for that? documented in this encounterUc Medical Center04-12-2023 History of Present illness Narrative* Emil Braswell MD - 02/25/2023 1:12 PM EDT Patient presents with: Wellness HPI: Patient presents today for office visit for check up. GENITOURINARY:Complaints of pain with urination and cloudy urine X 3-4 days, pressure and spasms, denies increase in frequency over baseline. UA in office shows: Leukocytes, Nit Pos, Blood, and pro. Taking Oxybutynin for OAB- previously had Neurostim implanted, since removed. Followed by Urology. Started Botox injections. Stopped all other medications. HTN: Patient states occasionally checks BP is running "OK" Does not take medication Occasionally checks BP at home Denies chest pain and shortness of breath Denies headaches or dizziness Denies palpitations No syncopal episodes Edema to B/L feet, and ankles Eyes:Last year had B/L cataract surgery with [facility]. Not sure of exact date. Thinks shehad dilated eye exam at that time. ONC: Patient seeing Dr. Gates and [facility], last visit was almost one year- yearly check up is in May. Patient states tumor still present, however smaller after radiation and chem. DM: Patient has not recently checked A1c or Random/Fasting BG, is due for a check. Neuro: Patient endorses pain upon touching both ankles, legs, and feet. MEDICATIONS: Current Outpatient Medications Medication Sig multivitamin tablet Take 1 tablet by mouth once daily. oxybutynin (DITROPAN) 5 mg tablet 3 to 4 times a day No current facility-administered medications for this visit. ALLERGIES: ALLERGIES Allergen Reactions Codeine Vomiting Lisinopril Cough throat tickle Morphine Mental Status Change sedation Septra [Sulfamethox* Sulfa (Sulfonamide * Vicodin [Hydrocodon* GI Upset PAST MEDICAL HISTORY Diagnosis Date Benign neoplasm of colon Displacement of lumbar intervertebral disc without myelopathy Hypothyroid Metabolic syndrome Other and unspecified hyperlipidemia Unspecified essential hypertension PAST SURGICAL HISTORY Procedure Laterality Date CHOLECYSTECTOMY COLONOSCOPY FLX DX W/COLLJ SPEC WHEN PFRMD 12/14/2012 Colonoscopy COLSC FLX W/RMVL OF TUMOR POLYP LESION SNARE TQ 03/18/16 multiple polyps - 3 year follow up PAST SURGICAL HISTORY OF lumbosacral nerve root decompression PAST SURGICAL HISTORY OF bladder stim SIGMOIDOSCOPY FLX DX W/COLLJ SPEC BR/WA IF PFRMD 07/05/13 Sigmoidoscopy, flexible/colonoscopy needed in 1 year FAMILY HISTORY Problem Relation Age of Onset Cancer Mother lung non smoker Coronary Artery Disease Father Cancer Sister thyroid Social History Tobacco Use Smoking status: Former Types: Cigarettes Quit date: 12/30/2008 Years since quittin.1 Smokeless tobacco: Never Substance Use Topics Alcohol use: Yes Comment: wine Drug use: No Reviewed current medications, allergies, past medical history, surgical history, family history andsocial history today. REVIEW OF SYSTEMS GENERAL: No weight loss, malaise or fevers HEENT: Negative for frequent or significant headaches, No changes in hearing or vision, no nose bleeds or other nasal problems RESPIRATORY: Negative for cough, hemoptysis, wheezing, COPD, dyspnea or shortness of breath CARDIOVASCULAR: Endorses bilateral leg swelling- worse when feet are not elevated. Denies palpitations, chest pain. GI: No nausea, vomiting, or diarrhea and constipation, Endorses having hemrrhoids that sometimes bleed when straining- no other bouts of blood in the stool. : Endorses Pain and pressure with urination for 3-4 days. Cloudy urine See HPI MUSCULOSKELETAL: Endorses increased pain in hands with crocheting, however denies joint swelling and erythema. PSYCH: Negative for sleep disturbance, mood disorder and recent psychosocial stressors HEMATOLOGY/LYMPHOLOGY: Negative for prolonged bleeding, bruising easily or swollen nodes ENDOCRINE: Negative for cold or heat intolerance, polyuria, polydipsia and goiter NEURO: No history of headaches, syncope, paralysis, seizures or tremors All other reviewed and negative other than HPI. HEALTH MAINTENANCE: Reviewed health maintenance issues today and recommended the following in detail. BP CONTROLLED (<130/80) Never done PNEUMOCOCCAL: 65+(2 - PCV) due on 08/01/2009 SHINGRIX VACCINE(2 of 3) due on 08/14/2014 DILATED RETINAL EXAM due on 09/11/2018 HBA1C due on 01/17/2019 URINE ALBUMIN:CREATININE RATIO due on 01/29/2019 LDL CHOLESTEROL due on 01/29/2019 DIABETIC FOOT EXAM due on 01/08/2022 ANNUAL PCP TEAM CHRONIC DISEASE VISIT due on 03/21/2022 ADVANCE DIRECTIVE DISCUSSION Never done DEPRESSION ASSESSMENT Never done VITALS: BP 128/68 Pulse 95 Ht 162.6 cm (5' 4") Wt 90.3 kg (199 lb) SpO2 96% BMI 34.16 kg/m Last 4 Encounter Wt Readings: Date: Wt: 03/21/2021 86.6 kg (191 lb) 06/14/2019 101.2 kg (223 lb) 11/10/2018 113.4 kg (250 lb) 08/02/2018 111.6 kg (246 lb) PHYSICAL EXAMINATION: General appearance: Well appearing, alert, in no acute distress, well-hydrated, well nourished. Skin: Skin color, texture, turgor normal, no suspicious rashes or lesions Head: Normocephalic, no masses, lesions, tenderness or abnormalities Eyes: Anicteric sclera. Pupils are equally round and reactive to light. Extraocular movements are intact. Ears: Pos cone of light bilaterally, both ear canals have some ear wax present. Nose/Sinuses: Nares normal, septum midline, mucosa normal, no drainage or sinus tenderness Neck: Supple, no adenopathy; thyroid symmetric, normal size, no bruits Lungs: Left lung coarse breath sounds, right lung has decreased air flow in upper and lower lung field- worse at base. -has known chronic pleural effusion. Heart: RRR without murmur, gallop, or rubs. No ectopy Abdomen: Normal abdominal exam, Abdomen soft, non-tender. Bowel sounds normal. No masses, organomegaly Extremities: Edema noted bilaterally in feet, ankles up to midcalf. Musculoskeletal: Joint pain bilaterally in hands upon movement. Joint pain in back that is chronic at baseline when moving during exam. Patient endorses feeling stiff with ambulation in back. Peripheral pulses: Radial +2 bilaterally, DP +1 bilaterally. Neuro: Sensation grossly intact . Pain upon touch to bilateral feet, lets and ankles. ASSESSMENT/PLAN: 1. Essential hypertension - ICD9: 401.9, ICD10: I10 (primary diagnosis) - bp is good 2. Mixed hyperlipidemia - ICD9: 272.2, ICD10: E78.2 - good control - Continue current medication. 3. Adenocarcinoma of right lung (HCC) - ICD9: 162.9, ICD10: C34.[address] Gates[address] 4. 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 Advised them to call if any sideeffects or questions. - GABAPENTIN 300 MG CAPSULE 5. Type 2 diabetes mellitus without complication, without long-term current use of insulin (HCC) - ICD9: 250.00, ICD10: E11.9 - Controlled - HGB A1C - LIPID PANEL BASIC - ALBUMIN/CREAT RATIO RND UR - CBC + DIFF - COMP METABOLIC PANEL - LIPID PANEL, NONFASTING 6. Hypothyroidism, unspecified type - ICD9: 244.9, ICD10: E03.9 - TSH BLD 7. Constipation, unspecified constipation type - ICD9: 564.00, ICD10: K59.00 - refill meds - DOCUSATE SODIUM 100 MG CAPSULE 8. Dysuria - ICD9: 788.1, ICD10: R30.0 - Red flags for re-assessment reviewed with patient in detail. Discussed risks and benefits of new medication with the patient. Advised them to call if any side effects or questions. Discussed risks and benefits of new medication with the patient. Advised them to call if any side effects or questions. She is seeing urology in a few weeks. Follow with him. - URINE CULTURE - CEPHALEXIN 500 MG CAPSULE 9. Microscopic hematuria - ICD9: 599.72, ICD10: R31.29 - as above. - CEPHALEXIN 500 MG CAPSULE 10. Foot pain, bilateral - ICD9: 729.5, ICD10: M79.671, M79.672 - GABAPENTIN 300 MG CAPSULE 11. Urge incontinence - ICD9: 788.31, ICD10: N39.41 - OXYBUTYNIN CHLORIDE 5 MG TABLET Emil Braswell RTO in annually and prn. documented in this encounterUc Medical Center07-20-2016 History of Past illness Narrative* Problem Noted Date Resolved Date Hyperglycemia 06/04/2016 12/27/2016 Metabolic syndrome 06/04/2016 08/02/2018 Polyp of colon 03/27/2016 12/27/2016 Personal history of colonic polyps 02/27/2016 12/27/2016 Abnormal ultrasound of breast 09/14/2015 Medicare annual wellness visit, initial 06/29/2012/27/2016 Occult blood positive stool 10/12/201212/17 Plantar fasciitis 09/27/2010 12/27/2016 Hepatomegaly 08/26/2010 12/27/2016 Bite from cat 01/23/2010 12/27/2016 Overview: Improving with use of oral antibiotics. Edema 06/29/2009 01/23/2010 Obstructive chronic bronchitis with exacerbation 01/27/2009 12/27/2016 documented as of this encounter (statuses as of 02/26/2023) [facility] of Past illness Narrative* Problem Noted Date Resolved Date Hyperglycemia 06/04/2016 12/27/2016 Metabolic syndrome 06/04/2016 08/02/2018 Polyp of colon 03/27/2016 12/27/2016 Personal history of colonic polyps 02/27/2016 12/27/2016 Abnormal ultrasound of breast 09/14/2015 Medicare annual wellness visit, initial 06/29/2012/27/2016 Occult blood positive stool 10/12/201212/17 Plantar fasciitis 09/27/2010 12/27/2016 Hepatomegaly 08/26/2010 12/27/2016 Bite from cat 01/23/2010 12/27/2016 Overview: Improving with use of oral antibiotics. Edema 06/29/2009 01/23/2010 Obstructive chronic bronchitis with exacerbation 01/27/2009 12/27/2016 documented as of this encounter (statuses as of 02/28/2023) [facility] of [facility] Narrative* Problem Noted Date Resolved Date Hyperglycemia 06/04/2016 12/27/2016 Metabolic syndrome 06/04/2016 08/02/2018 Polyp of colon 03/27/2016 12/27/2016 Personal history of colonic polyps 02/27/2016 12/27/2016 Abnormal ultrasound of breast 09/14/2015 Medicare annual wellness visit, initial 06/29/2012/27/2016 Occult blood positive stool 10/12/201212/17 Plantar fasciitis 09/27/2010 12/27/2016 Hepatomegaly 08/26/2010 12/27/2016 Bite from cat 01/23/2010 12/27/2016 Overview: Improving with use of oral antibiotics. Edema 06/29/2009 01/23/2010 Obstructive chronic bronchitis with exacerbation 01/27/2009 12/27/2016 documented as of this encounter (statuses as of 03/06/2023) [address]20-2016 History of Past illness Narrative* Problem Noted Date Diagnosed Date Resolved Date Hyperglycemia 06/04/2016 12/27/2016 Metabolic syndrome 06/04/2016 8 Polyp of colon 03/27/2016 12/27/2016 Personal history of colonic polyps 02/27/2016 12/27/2016 Abnormal ultrasound of breast 09/14/2015 12/27/2016 Medicare annual wellness visit, initial 06/29/2014 12/27/2016 Occult blood positive stool 10/12/2012 12/27/2016 Plantar fasciitis 09/27/2010 12/27/2016 Hepatomegaly 08/26/2010 12/27/2016 Bite from cat 01/23/2010 12/27/2016 Overview: Improving with use of oral antibiotics. Edema 06/29/2009 01/23/2010 Obstructive chronic bronchit is with exacerbation 01/27/2009 12/27/2016 documented as of this encounter (statuses as of 02/16/2024) [facility] History of Past illness Narrative* Problem Noted Date Diagnosed Date Resolved Date Hyperglycemia 06/04/2016 12/27/2016 Metabolic syndrome 06/04/2016 8 Polyp of colon 03/27/2016 12/27/2016 Personal history of colonic polyps 02/27/2016 12/27/2016 Abnormal ultrasound of breast 09/14/2015 12/27/2016 Medicare annual wellness visit, initial 06/29/2014 12/27/2016 Occult blood positive stool 10/12/2012 12/27/2016 Plantar fasciitis 09/27/2010 12/27/2016 Hepatomegaly 08/26/2010 12/27/2016 Bite from cat 01/23/2010 12/27/2016 Overview: Improving with use of oral antibiotics. Edema 06/29/2009 01/23/2010 Obstructive chronic bronchit is with exacerbation 01/27/2009 12/27/2016 documented as of this encounter (statuses as of 02/16/2024) [facility] History of Past illness Narrative* Problem Noted Date Diagnosed Date Resolved Date Hyperglycemia 06/04/2016 12/27/2016 Metabolic syndrome 06/04/2016 8 Polyp of colon 03/27/2016 12/27/2016 Personal history of colonic polyps 02/27/2016 12/27/2016 Abnormal ultrasound of breast 09/14/2015 12/27/2016 Medicare annual wellness visit, initial 06/29/2014 12/27/2016 Occult blood positive stool 10/12/2012 12/27/2016 Plantar fasciitis 09/27/2010 12/27/2016 Hepatomegaly 08/26/2010 12/27/2016 Bite from cat 01/23/2010 12/27/2016 Overview: Improving with use of oral antibiotics. Edema 06/29/2009 01/23/2010 Obstructive chronic bronchit is with exacerbation 01/27/2009 12/27/2016 documented as of this encounter (statuses as of 02/18/2024) [facility] History of Past illness Narrative* Problem Noted Date Diagnosed Date Resolved Date Hyperglycemia 06/04/2016 12/27/2016 Metabolic syndrome 06/04/2016 8 Polyp of colon 03/27/2016 12/27/2016 Personal history of colonic polyps 02/27/2016 12/27/2016 Abnormal ultrasound of breast 09/14/2015 12/27/2016 Medicare annual wellness visit, initial 06/29/2014 12/27/2016 Occult blood positive stool 10/12/2012 12/27/2016 Plantar fasciitis 09/27/2010 12/27/2016 Hepatomegaly 08/26/2010 12/27/2016 Bite from cat 01/23/2010 12/27/2016 Overview: Improving with use of oral antibiotics. Edema 06/29/2009 01/23/2010 Obstructive chronic bronchit is with exacerbation 01/27/2009 12/27/2016 documented as of this encounter (statuses as of 03/03/2024) [facility] History of Past illness Narrative* Problem Noted Date Diagnosed Date Resolved Date Hyperglycemia 06/04/2016 12/27/2016 Metabolic syndrome 06/04/2016 8 Polyp of colon 03/27/2016 12/27/2016 Personal history of colonic polyps 02/27/2016 12/27/2016 Abnormal ultrasound of breast 09/14/2015 12/27/2016 Medicare annual wellness visit, initial 06/29/2014 12/27/2016 Occult blood positive stool 10/12/2012 12/27/2016 Plantar fasciitis 09/27/2010 12/27/2016 Hepatomegaly 08/26/2010 12/27/2016 Bite from cat 01/23/2010 12/27/2016 Overview: Improving with use of oral antibiotics. Edema 06/29/2009 01/23/2010 Obstructive chronic bronchit is with exacerbation 01/27/2009 12/27/2016 documented as of this encounter (statuses as of 03/04/2024) [facility] History of Past illness Narrative* Problem Noted Date Diagnosed Date Resolved Date Hyperglycemia 06/04/2016 12/27/2016 Metabolic syndrome 06/04/2016 8 Polyp of colon 03/27/2016 12/27/2016 Personal history of colonic polyps 02/27/2016 12/27/2016 Abnormal ultrasound of breast 09/14/2015 12/27/2016 Medicare annual wellness visit, initial 06/29/2014 12/27/2016 Occult blood positive stool 10/12/2012 12/27/2016 Plantar fasciitis 09/27/2010 12/27/2016 Hepatomegaly 08/26/2010 12/27/2016 Bite from cat 01/23/2010 12/27/2016 Overview: Improving with use of oral antibiotics. Edema 06/29/2009 01/23/2010 Obstructive chronic bronchit is with exacerbation 01/27/2009 12/27/2016 documented as of this encounter (statuses as of 03/04/2024) [facility] History of Past illness Narrative* Problem Noted Date Diagnosed Date Resolved Date Hyperglycemia 06/04/2016 12/27/2016 Metabolic syndrome 06/04/2016 8 Polyp of colon 03/27/2016 12/27/2016 Personal history of colonic polyps 02/27/2016 12/27/2016 Abnormal ultrasound of breast 09/14/2015 12/27/2016 Medicare annual wellness visit, initial 06/29/2014 12/27/2016 Occult blood positive stool 10/12/2012 12/27/2016 Plantar fasciitis 09/27/2010 12/27/2016 Hepatomegaly 08/26/2010 12/27/2016 Bite from cat 01/23/2010 12/27/2016 Overview: Improving with use of oral antibiotics. Edema 06/29/2009 01/23/2010 Obstructive chronic bronchit is with exacerbation 01/27/2009 12/27/2016 documented as of this encounter (statuses as of 03/04/2024) [facility] History of Past illness Narrative* Problem Noted Date Diagnosed Date Resolved Date Hyperglycemia 06/04/2016 12/27/2016 Metabolic syndrome 06/04/2016 8 Polyp of colon 03/27/2016 12/27/2016 Personal history of colonic polyps 02/27/2016 12/27/2016 Abnormal ultrasound of breast 09/14/2015 12/27/2016 Medicare annual wellness visit, initial 06/29/2014 12/27/2016 Occult blood positive stool 10/12/2012 12/27/2016 Plantar fasciitis 09/27/2010 12/27/2016 Hepatomegaly 08/26/2010 12/27/2016 Bite from cat 01/23/2010 12/27/2016 Overview: Improving with use of oral antibiotics. Edema 06/29/2009 01/23/2010 Obstructive chronic bronchit is with exacerbation 01/27/2009 12/27/2016 documented as of this encounter (statuses as of 02/19/2024) [facility] Onset Date Resolution Status Anemia acute Chemotherapy follow-up examination acute Chemotherapy management, encounter for acute Constipation acute Dysuria acute Educational circumstance acu te Epigastric pain acute Hypokalemia acute Hypomagnesemia acute Pleural effusion acute Pneumonitis acute Non-small cell carcinoma of right lung, stage 4 chronic Recurrent pleural effusion on right chronic Rash resolved [facility] Work Phone: Evaluation note* Diagnosis Essential hypertension- Primary Unspecified essential hypertension Mixed hyperlipidemia Adenocarcinoma of right lung (HCC) Thoracic spine tumor Neoplasm of unspecified nature of bone, soft tissue, and skin Type 2 diabetes mellitus without complication, without long-term current use of insulin (HCC) Hypothyroidism, unspecified type Constipation, unspecified constipation type Dysuria Microscopic hematuria Foot pain, bilateral Pain in limb Urge incontinence Simple chronic bronchitis (HCC) Simple chronic bronchitis Peripheral vascular disease, unspecified (HCC) Peripheral vascular disease, unspecified documented in this encounter [facility]* Diagnosis Urinary tract infection with hematuria, site unspecified- Primary Mixed hyperlipidemia documented in this encounter [facility] note* Diagnosis Swelling- Primary Edema Intra-abdominal and pelvic swelling, mass and lump, unspecified site Swelling abdomen Abdominal or pelvic swelling, mass or lump, unspecified site Type 2 diabetes mellitus without complication, without long-term current use of insulin (HCC) Hypothyroidism, unspecified type documented in this encounter [facility] note* Diagnosis Malignant neoplasm of unspecified part of right bronchus or lung (HCC)- Primary documented in this encounter [facility]* Diagnosis Intra-abdominal and pelvic swelling, mass and lump, unspecified site documented in this encounter [facility] note* Diagnosis Hot flashes- Primary Symptomatic menopausal or female climacteric states History of lung cancer Personal history of malignant neoplasm of bronchus and lung Hypothyroidism, unspecified type Abnormal thyroid function test- Primary Nonspecific abnormal results of thyroid function study Weight loss Loss of weight Intra-abdominal and pelvic swelling, mass and lump, unspecified site Adenocarcinoma of right lung (HCC) Bilateral hand pain Pain in limb documented in this encounter [facility] note* Diagnosis Hot flashes- Primary Symptomatic menopausal or female climacteric states History of lung cancer Personal history of malignant neoplasm of bronchus and lung Hypothyroidism, unspecified type Abnormal thyroid function test- Primary Nonspecific abnormal results of thyroid function study Abnormal urine findings Other nonspecific finding on examination of urine documented in this encounter [facility] note* Diagnosis Hot flashes- Primary Symptomatic menopausal or female climacteric states History of lung cancer Personal history of malignant neoplasm of bronchus and lung Hypothyroidism, unspecified type Weight loss Loss of weight Intra-abdominal and pelvic swelling, mass and lump, unspecified site Adenocarcinoma of right lung (HCC) documented in this encounter [facility]* Diagnosis Hot flashes- Primary Symptomatic menopausal or female climacteric states History of lung cancer Personal history of malignant neoplasm of bronchus and lung Hypothyroidism, unspecified type Neoplasm related pain (acute) (chronic)- Primary Adenocarcinoma of right lung (HCC) [facility]* Diagnosis Hot flashes- Primary Symptomatic menopausal or female climacteric states History of lung cancer Personal history of malignant neoplasm of bronchus and lung Hypothyroidism, unspecified type Primary osteoarthritis of both hands- Primary Weight loss Loss of weight Malignant neoplasm of unspecified part of right bronchus or lung (HCC) Abnormal urine findings Other nonspecific finding on examination of urine documented in this encounter [facility]* Diagnosis Hot flashes- Primary Symptomatic menopausal or female climacteric states History of lung cancer Personal history of malignant neoplasm of bronchus and lung Hypothyroidism, unspecified type Acute cystitis without hematuria- Primary Acute cystitis documented in this encounter [facility]* Diagnosis Hot flashes- Primary Symptomatic menopausal or female climacteric states History of lung cancer Personal history of malignant neoplasm of bronchus and lung Hypothyroidism, unspecified type Bilateral hand pain- Primary Pain in limb Screening for depression Encounter for screening examination for other mental health and behavioral disorders Mixed hyperlipidemia Essential hypertension Unspecified essential hypertension Adenocarcinoma of right lung (HCC) Hypomagnesemia Disorders of magnesium metabolism Hypokalemia Hypopotassemia [facility]* Diagnosis Hot flashes- Primary Symptomatic menopausal or female climacteric states History of lung cancer Personal history of malignant neoplasm of bronchus and lung Hypothyroidism, unspecified type Bilateral hand pain Pain in limb [facility]* Diagnosis Hot flashes- Primary Symptomatic menopausal or female climacteric states History of lung cancer Personal history of malignant neoplasm of bronchus and lung Hypothyroidism, unspecified type Primary osteoarthritis, right hand Primary osteoarthritis of left hand Primary localized osteoarthrosis, hand [facility] Work Phone[facility] Discharge instructions Additional Instructions The CT of the chest that was performed today did not show any evidence of a pulmonary vein clot as seen on her previous CT. There were no acute changes from prior. Follow-up with your primary care provider tomorrow and let them know that your CT did not show evidence of clot. [facility] Work Phone: Reason for referral (narrative)No reason for referral information [facility]Kindred [facility] N[facility]* MRI/CT (Routine) - Closed Specialty Diagnoses / Procedures Referred By Contac t Referred To Contact CT IMAGING Diagnoses Weight loss Intra-abdominal and pelvic swelling, mass and lump, unspecified site Adenocarcinoma of right lung (HCC) Procedures CT CHEST W IVCON DIAGNOSTIC COMPUTED TOMOGRAPHY THORAX W/CONTRAST Ruba Trujillo, DEFENCE INTELLIGENCE ANALYST.FAMILY PROTECTION SPECIALIST [address] [place] [address] Phone: tel: fax: [place] [phone] Referral ID Status Reason Start Date Expiration Date V isits Requested Visits Authorized [id number] Closed Auto-Generate d Referral 04/28/2025 06/27/2025 1 1 [facility] for visit Narrative* Diagnostic Procedure Only (Routine) - Closed Specialty Diagnoses / Procedures Referred By Contac t Referred To Contact XR IMAGING Diagnoses Bilateral hand pain Procedures XR HAND/WRIST SURVEY ARTHRITIS 1V PA BILATERAL JOINT SURVEY SINGLE VIEW 2 OR MORE JOINTS Reva Wasserman, DEFENCE INTELLIGENCE ANALYST.FAMILY PROTECTION SPECIALIST [address] [place] [address] Phone: tel: fax: [place] [phone] Referral ID Status Reason Start Date Expiration Date V isits Requested Visits Authorized [id number] Closed Auto-Generate d Referral 06/13/2025 07/13/2026 1 1 [facility] Summary Purpose Family History No Family History Records Found Relationship Condition Age at Onset Recorded Date/T kathia father Heart problem Unknown mother Malignant neoplasm of lung Unknown sister Malignant neoplasm of lung Unknown Advance Directives No Advanced Directives Records Found Advance Directive Response Recorded Date/ Time Advance Directives on File Yes Dece2018 3:05pm Advance Directives Yes October 3:05pm Living Will Yes November 23 11:12pm Power of Personal Injury Legal Assistant Yes November 23 11:12pm Documents on File Type Date Recorded Patient Ornamenter Hand Expl anation Advance Directive(s) 12/15/2012 9:33 AM Documents on File Type Date Recorded Patient Ornamenter Hand Expl anation Advance Directive(s) 12/15/2012 9:33 AM Advance Directive Response Recorded Date/ Time Advance Directives on File Yes Dece2018 3:05pm Advance Directives Yes October 3:05pm Living Will No March 08, 2024 5:53pm Power of Personal Injury Legal Assistant No March 08 5:53pm Advance Directive Response Recorded Date/ Time Advance Directives on File Yes Decem 2018 3:05pm Living Will Yes November 07 3:05pm Do you have a Healthcare Power of Personal Injury Legal Assistant? Yes November 07, 2019 3:05pm Advance Directives Yes October 3:05pm Hospital Course Note Send Summary: Discharge Summ morteza Providers: Provider RoleProvider Name AttendingCasimiro Yusuf Note Recipients: EMIL BRASWELL - [phone] [] NEO HERRERA Joseph, MD - [phone] Discharge: Summary: Admission Date: .12-Nov-2018 22:58:00 Discharge [...] Date: 23-Nov-2018 17:31:00 Procedure Name: T10-11 transpedicular decomp (more content not included)... Note Post Operative Note: PreOp D iagnosis: spinal tumor Post-Procedure Diagnosis: spinal metastasis Procedure: T10-11 transpedicular decompression of metastatic spine tumor, T7-L2 posterior instrumentation and fusion with allograft, use of intraoperative O arm, use of C arm fluoroscopy, use of ultrasound, placement of 2 subfascial drains Surgeon: Fartun Tamayo Resident/Fellow/Other Body Trimmer: Grazyna Costa Anesthesia: GETA Estimated Blood Loss (mL): 1100 Specimen: yes. thoracic infiltrating tumor Findings: large compressive tumor with involvement of pedicles and vertebral body, good decompression of thecal sac and bilateral nerve roots Patient Returned To/Condition: extubated, satisfactory Drains and/or Catheters: 2 subfacial drains Signature/Cosignature/Attestation: Attending AttestationI was present for the entire procedure Electronic Signatures: Fartun Tamayo) (Signed 24-Nov-2018 13:51) Authored: Post Operative Note, Signature/Cosignature/Attestation Co-Signer: Post O (more content not included)... Procedure Findings Note Post Operative Note: PreOp D iagnosis: spinal tumor Post-Procedure Diagnosis: spinal metastasis Procedure: T10-11 transpedicular decompression of metastatic spine tumor, T7-L2 posterior instrumentation and fusion with allograft, use of intraoperative O arm, use of C arm fluoroscopy, use of ultrasound, placement of 2 subfascial drains Surgeon: Fartun Tamayo Resident/Fellow/Other Body Trimmer: Grazyna oCsta Anesthesia: GETA Estimated Blood Loss (mL): 1100 Specimen: yes. thoracic infiltrating tumor Findings: large compressive tumor with involvement of pedicles and vertebral body, good decompression of thecal sac and bilateral nerve roots Patient Returned To/Condition: extubated, satisfactory Drains and/or Catheters: 2 subfacial drains Signature/Cosignature/Attestation: Attending AttestationI was present for the entire procedure Electronic Signatures: Fartun Tamayo) (Signed 24-Nov-2018 13:51) Authored: Post Operative Note, Signature/Cosignature/Attestation Co-Signer: Post O (more content not included)... Chief Complaint and Reason for Visit Chief Complaint RESTAGING LUNG CA LUNG CANCER Reason for Visit Anemia Chemotherapy follow-up examination Chemotherapy management, encounter for Constipation Dysuria Educational circumstance Epigastric pain Hypokalemia Hypomagnesemia Pleural effusion Pneumonitis Non-small cell carcinoma of right lung, stage 4 Recurrent pleural effusion on right Rash Chief Complaint RESTAGING LUNG CA LUNG CANCER Reason for Visit Anemia Chemotherapy follow-up examination Chemotherapy management, encounter for Constipation Dysuria Educational circumstance Epigastric pain Hypokalemia Hypomagnesemia Pleural effusion Pneumonitis Non-small cell carcinoma of right lung, stage 4 Recurrent pleural effusion on right Rash Chief Complaint RESTAGING LUNG CA abnormal CT Reason for Visit Anemia Chemotherapy follow-up examination Chemotherapy management, encounter for Constipation Dysuria Educational circumstance Epigastric pain Hypokalemia Hypomagnesemia Pleural effusion Pneumonitis Non-small cell carcinoma of right lung, stage 4 Recurrent pleural effusion on right Rash Chief Complaint Admit Date 1YR LABS May 30, 2025 1:37 pm RESTAGING LUNG CA May 30, 2025 1:45 pm Reason for Visit Admit Date Non-small cell lung cancer with metastas is May 30, 2025 1:37pm Recurrent pleural effusion on right May 30, 2025 1:37pm Anemia May 30, 2025 1:45 pm Chemotherapy follow-up examination May 30, 2025 1:45pm Chemotherapy management, encounter for Pako miles 2024 1:45pm Constipation May 30, 2025 1:45 pm Dysuria May 30, 2025 1:45 pm Educational circumstance May 30, 2025 1:45pm Epigastric pain May 30, 2025 1:45 pm Hypokalemia May 30, 2025 1:45 pm Hypomagnesemia May 30, 2025 1:45 pm Pleural effusion May 30, 2025 1:45 pm Pneumonitis May 30, 2025 1:45 pm Non-small cell carcinoma of right lung, stage 4 May 30, 2025 1:45pm Recurrent pleural effusion on right May 30, 2025 1:45pm Rash May 30, 2025 1:45 pm port placement May 30, 2025 1:45 pm Chief Complaint Admit Date 1YR LABS May 30, 2025 1:37 pm RESTAGING LUNG CA May 30, 2025 1:45 pm 3mo med and uti f/u July 04, 2025 2: 46pm Reason for Visit Admit Date Non-small cell lung cancer with metastas is May 30, 2025 1:37pm Recurrent pleural effusion on right May 30, 2025 1:37pm Anemia May 30, 2025 1:45 pm Chemotherapy follow-up examination May 30, 2025 1:45pm Chemotherapy management, encounter for [place]o miles 2024 1:45pm Constipation May 30, 2025 1:45 pm Dysuria May 30, 2025 1:45 pm Educational circumstance May 30, 2025 1:45pm Epigastric pain May 30, 2025 1:45 pm Hypokalemia May 30, 2025 1:45 pm Hypomagnesemia May 30, 2025 1:45 pm Pleural effusion May 30, 2025 1:45 pm Pneumonitis May 30, 2025 1:45 pm Non-small cell carcinoma of right lung, stage 4 May 30, 2025 1:45pm Recurrent pleural effusion on right May 30, 2025 1:45pm Rash May 30, 2025 1:45 pm port placement May 30, 2025 1:45 pm Overactive bladder July 04, 2025 2: 46pm Urge incontinence July 04, 2025 2: 46pm UTI (urinary tract infection) June 2:46pm Reason for Referral Specialty Diagnoses / Procedures Referred By Vincent t Referred To Contact CT IMAGING Diagnoses Intra-abdominal and pelvic swelling, mass and lump, unspecified site Procedures CT ABD/PEL W IVCON CT ABD & PELVIS W/CONTRAST Ruba Trujillo, DEFENCE INTELLIGENCE ANALYST.FAMILY PROTECTION SPECIALIST [address] [place] [address] [place] [id number] Referral ID Status Reason Start Date Expiration Date Visits Requested Visits Authorized [id number] Pending Review Auto-Generat ed Referral 02/17/2024 03/18/2025 1 1 Additional Source Comments INFORMATION SOURCE (unrecogn ized section and content) DATE CREATED AUTHOR 12/21/2018 [facility] DATE CREATED AUTHOR AUTHOR'S ORGANIZ ATION 04/17/2019 [facility] DATE CREATED AUTHOR AUTHOR'S ORGANIZ ATION 11/27/2019 [facility] DATE CREATED AUTHOR AUTHOR'S ORGANIZ ATION 01/03/[address] [facility] DATE CREATED AUTHOR AUTHOR'S ORGANIZ ATION 08/29/2025 [facility] DATE CREATED AUTHOR AUTHOR'S ORGANIZ ATION 09/28/2025 [facility] Goals (unrecognized section and content) Goals may be documented in a n alternate sectionGoals may be documented in an alternate sectionGoals may be documented in an alternate sectionGoals may be documented in an alternate sectionGoals may be documented in an alternate section Source Comments (unrecognize d section and content) In the event this informatio n is protected by the Federal Confidentiality of Alcohol and Drug Abuse Patient Records regulations: The Federal rules restrict any use of the information to criminally investigate or prosecute any alcohol or drug abuse patient.[facility] the event this information is protected by the Federal Confidentiality of Alcohol and Drug Abuse Patient Records regulations: The Federal rules restrict any use of the information to criminally investigate or prosecute any alcohol or drug abuse patient.[facility] the event this information is protected by the Federal Confidentiality of Alcohol and Drug Abuse Patient Records regulations: The Federal rules restrict any use of the information to criminally investigate or prosecute any alcohol or drug abuse patient.[facility] the event this information is protected by the Federal Confidentiality of Alcohol and Drug Abuse Patient Records regulations: The Federal rules restrict any use of the information to criminally investigate or prosecute any alcohol or drug abuse patient.[facility] the event this information is protected by the Federal Confidentiality of Alcohol and Drug Abuse Patient Records regulations: The Federal rules restrict any use of the information to criminally investigate or prosecute any alcohol or drug abuse patient.[facility] CenterIn the event this information is protected by the Federal Confidentiality of Alcohol and Drug Abuse Patient Records regulations: The Federal rules restrict any use of the information to criminally investigate or prosecute any alcohol or drug abuse patient.[facility] CenterIn the event this information is protected by the Federal Confidentiality of Alcohol and Drug Abuse Patient Records regulations: The Federal rules restrict any use of the information to criminally investigate or prosecute any alcohol or drug abuse patient.[facility] CenterIn the event this information is protected by the Federal Confidentiality of Alcohol and Drug Abuse Patient Records regulations: The Federal rules restrict any use of the information to criminally investigate or prosecute any alcohol or drug abuse patient.[facility] CenterIn the event this information is protected by the Federal Confidentiality of Alcohol and Drug Abuse Patient Records regulations: The Federal rules restrict any use of the information to criminally investigate or prosecute any alcohol or drug abuse patient.[facility] CenterIn the event this information is protected by the Federal Confidentiality of Alcohol and Drug Abuse Patient Records regulations: The Federal rules restrict any use of the information to criminally investigate or prosecute any alcohol or drug abuse patient.[facility] CenterIn the event this information is protected by the Federal Confidentiality of Alcohol and Drug Abuse Patient Records regulations: The Federal rules restrict any use of the information to criminally investigate or prosecute any alcohol or drug abuse patient.[facility] CenterIn the event this information is protected by the Federal Confidentiality of Alcohol and Drug Abuse Patient Records regulations: The Federal rules restrict any use of the information to criminally investigate or prosecute any alcohol or drug abuse patient.[facility] CenterIn the event this information is protected by the Federal Confidentiality of Alcohol and Drug Abuse Patient Records regulations: The Federal rules restrict any use of the information to criminally investigate or prosecute any alcohol or drug abuse patient.[facility] CenterIn the event this information is protected by the Federal Confidentiality of Alcohol and Drug Abuse Patient Records regulations: The Federal rules restrict any use of the information to criminally investigate or prosecute any alcohol or drug abuse patient.[facility] CenterIn the event this information is protected by the Federal Confidentiality of Alcohol and Drug Abuse Patient Records regulations: The Federal rules restrict any use of the information to criminally investigate or prosecute any alcohol or drug abuse patient.[facility] CenterIn the event this information is protected by the Federal Confidentiality of Alcohol and Drug Abuse Patient Records regulations: The Federal rules restrict any use of the information to criminally investigate or prosecute any alcohol or drug abuse patient.[facility] CenterIn the event this information is protected by the Federal Confidentiality of Alcohol and Drug Abuse Patient Records regulations: The Federal rules restrict any use of the information to criminally investigate or prosecute any alcohol or drug abuse patient.[facility] CenterIn the event this information is protected by the Federal Confidentiality of Alcohol and Drug Abuse Patient Records regulations: The Federal rules restrict any use of the information to criminally investigate or prosecute any alcohol or drug abuse patient.[facility] CenterIn the event this information is protected by the Federal Confidentiality of Alcohol and Drug Abuse Patient Records regulations: The Federal rules restrict any use of the information to criminally investigate or prosecute any alcohol or drug abuse patient.[facility] CenterIn the event this information is protected by the Federal Confidentiality of Alcohol and Drug Abuse Patient Records regulations: The Federal rules restrict any use of the information to criminally investigate or prosecute any alcohol or drug abuse patient.[facility] CenterIn the event this information is protected by the Federal Confidentiality of Alcohol and Drug Abuse Patient Records regulations: The Federal rules restrict any use of the information to criminally investigate or prosecute any alcohol or drug abuse patient.[facility] CenterIn the event this information is protected by the Federal Confidentiality of Alcohol and Drug Abuse Patient Records regulations: The Federal rules restrict any use of the information to criminally investigate or prosecute any alcohol or drug abuse patient.[facility] CenterIn the event this information is protected by the Federal Confidentiality of Alcohol and Drug Abuse Patient Records regulations: The Federal rules restrict any use of the information to criminally investigate or prosecute any alcohol or drug abuse patient.[facility] CenterIn the event this information is protected by the Federal Confidentiality of Alcohol and Drug Abuse Patient Records regulations: The Federal rules restrict any use of the information to criminally investigate or prosecute any alcohol or drug abuse patient.[facility] CenterIn the event this information is protected by the Federal Confidentiality of Alcohol and Drug Abuse Patient Records regulations: The Federal rules restrict any use of the information to criminally investigate or prosecute any alcohol or drug abuse patient.[facility] CenterIn the event this information is protected by the Federal Confidentiality of Alcohol and Drug Abuse Patient Records regulations: The Federal rules restrict any use of the information to criminally investigate or prosecute any alcohol or drug abuse patient.[facility] CenterIn the event this information is protected by the Federal Confidentiality of Alcohol and Drug Abuse Patient Records regulations: The Federal rules restrict any use of the information to criminally investigate or prosecute any alcohol or drug abuse patient.[facility] Reason for Visit (unrecogniz ed section and content) Reason Comments Wellness Reason Comments Results Reason Comments Patient Update Reason Comments Nurse Triage Call bilateral leg swelling Reason Comments leg swelling. Reason Comments Acute Visit Bilateral lower leg edema; worsening; R leg greater than L leg Reason Comments Appointment Reason Comments Port Flush Reason Comments Radiology CT Specialty Diagnoses / Procedures Referred By Contac t Referred To Contact CT IMAGING Diagnoses Intra-abdominal and pelvic swelling, mass and lump, unspecified site Procedures CT ABD/PEL W IVCON CT ABD & PELVIS W/CONTRAST Ruba Trujillo, DEFENCE INTELLIGENCE ANALYST.FAMILY PROTECTION SPECIALIST [address] [place] [address] [place] [address] Referral ID Status Reason Start Date Expiration Date V isits Requested Visits Authorized [id number] Closed Auto-Generate d Referral 02/19/2024 04/19/2024 2 2 Specialty Diagnoses / Procedures Referred By Contac t Referred To Contact CT IMAGING Diagnoses Intra-abdominal and pelvic swelling, mass and lump, unspecified site Procedures CT ABD/PEL W IVCON CT ABD & PELVIS W/CONTRAST Ruba Trujillo, DEFENCE INTELLIGENCE ANALYST.FAMILY PROTECTION SPECIALIST [address] [place] [address] [place] [address] Reason Comments Recheck Follow up Reason Onset Date Comments Results 04/26/2025 Reason Comments Recheck 1 month follow up Reason Onset Date Comments Results 05/26/2025 Reason Comments Arthritis Follow up Reason Comments Recheck 4 week follow up Reason Comments Patient Update Dr. Gates's note 05/30 Care Teams (unrecognized sec tion and content) Lab Animal Technologist Relationship Specialty Start Date End Date Emil Braswell MD [address] [place], [place] [id number] PCP - General Family Medicine 12/27/16 Arthur Gates MD [address] [place] [address] Oncology 12/24/18 Raji Guerrero Radiation Oncology 12/24/18 Lab Animal Technologist Relationship Specialty Start Date End Date Emil Braswell MD [address] [place], [place] [id number] PCP - General Family Medicine 12/27/16 Arthur Gates MD [address] [place] [address] Oncology 12/24/18 Raji Guerrero Radiation Oncology 12/24/18 Lab Animal Technologist Relationship Specialty Start Date End Date Emil Braswell MD [address] [facility] [place] [phone] PCP - General Family Medicine 12/27/16 Arthur Gates MD [address] [place] [address] Oncology 12/24/18 Raji Guerrero Radiation Oncology 12/24/18 Team Status: Active Member Role Status Dates Dr. Emil Braswell MD Family Provider Active Dr. Emil Braswell MD Primary Care Provider Active Team Status: Active Member Role Status Dates Dr. Emil rBaswell MD Primary Care Provi sis, Family Provider, Referring Provider Active Dr. Cornell Guerrero DO Other Provider Active Dr. Arthur Gates MD Attending Provider Active Dr. Arthur Gates MD Active Team Status: Inactive Member Role Status Dates Dr. Emil Braswell MD Primary Care Provider Active Dr. Arthur Gates MD Attending Provider, Referring Pro vider Active Lab Animal Technologist Relationship Specialty Start Date End Date Emil Braswell MD [address] [place], [place] [id number] PCP - General Family Medicine 12/27/16 Arthur Gates MD [address] [place] [address] Oncology 12/24/18 Raji Guerrero Radiation Oncology 12/24/18 Lab Animal Technologist Relationship Specialty Start Date End Date Emil Braswell MD [address] [place], [place] [id number] PCP - General Family Medicine 12/27/16 Arthur Gates MD [address] [place] [address] Oncology 12/24/18 Raji Guerrero Radiation Oncology 12/24/18 Lab Animal Technologist Relationship Specialty Start Date End Date Emil Braswell MD [address] [facility] [place], [place] [id number] [phone] PCP - General Family Medicine 12/27/16 Arthur Gates MD [address] [place] [address] Oncology 12/24/18 Raji Guerrero Radiation Oncology 12/24/18 Lab Animal Technologist Relationship Specialty Start Date End Date Emil Braswell MD [address] [facility] [place], [place] [address] [phone] PCP - General Family Medicine 12/27/16 Arthur Gates MD [address] [place] [address] Oncology 12/24/18 Raji Guerrero Radiation Oncology 12/24/18 Lab Animal Technologist Relationship Specialty Start Date End Date Emil Braswell MD [address] [facility] [place], [place] [address] [phone] PCP - General Family Medicine 12/27/16 Arthur Gates MD [address] [place] [address] Oncology 12/24/18 Raji Guerrero Radiation Oncology 12/24/18 Lab Animal Technologist Relationship Specialty Start Date End Date Emil Braswell MD [address] [place], [place] [address] PCP - General Family Medicine 12/27/16 Arthur Gates MD [address] [place] [address] Oncology 12/24/18 Raji Guerrero Radiation Oncology 12/24/18 Lab Animal Technologist Relationship Specialty Start Date End Date Emil Braswell MD [address] [place] [place], [place] [address] PCP - General Family Medicine 12/27/16 Arthur Gates MD [address] [place] [address] Oncology 12/24/18 Raji Guerrero Radiation Oncology 12/24/18 Team Status: Inactive Member Role Status Dates Dr. Emil Braswell MD Primary Care Provider Active Max Lau MD Emergency Provider Active Lab Animal Technologist Relationship Specialty Start Date End Date Emil Braswell MD [address] [place], [place] [address] PCP - General Family Medicine 12/27/16 Arthur Gates MD [address] [place] [address] Oncology 12/24/18 Ruba Trujillo APRN.FAMILY PROTECTION SPECIALIST [address] [place] [address] Sign Language Teacher Family Medicine 10/24/24 Reva Wasserman APRN.FAMILY PROTECTION SPECIALIST [address] [facility] [place] [address] Sign Language Teacher Family [facility] 10/24/24 Raji Guerrero Radiation Oncology 12/24/18 Lab Animal Technologist Relationship Specialty Start Date End Date Emil Braswell MD [address] [facility] [place] [address] PCP - General Family Medicine 12/27/16 Arthur Gates MD [address] [place] [address] Oncology 12/24/18 Ruba Trujillo, ANTELMO.FAMILY PROTECTION SPECIALIST [address] [facility] [place] [address] Formerly [facility] 10/24/24 Reva Wasserman APRN.FAMILY PROTECTION SPECIALIST [address] [facility] [place] [address] Formerly [facility] 10/24/24 Raji Guerrero Radiation Oncology 12/24/18 Lab Animal Technologist Relationship Specialty Start Date End Date Emil Braswell MD [address] [facility] [place] [address] PCP - General Family Medicine 12/27/16 Arthur Gates MD [address] [place] [address] Oncology 12/24/18 Ruba Trujillo APRN.FAMILY PROTECTION SPECIALIST [address] [facility] [place] [address] Formerly [facility] 10/24/24 Reva Wasserman APRN.FAMILY PROTECTION SPECIALIST [address] [place] [address] Formerly [facility] 10/24/24 Raji Guerrero Radiation Oncology 12/24/18 Lab Animal Technologist Relationship Specialty Start Date End Date Emil Braswell MD [address] [facility] [place], [place] [address] PCP - General Family Medicine 12/27/16 Arthur Gates MD [address] [place] [address] [phone] Oncology 12/24/18 Ruba Trujillo, DEFENCE INTELLIGENCE ANALYST.FAMILY PROTECTION SPECIALIST [address] [facility] [place] [address] Formerly [facility] 10/24/24 Reva Wasserman, DEFENCE INTELLIGENCE ANALYST.FAMILY PROTECTION SPECIALIST [address] [facility] [place] [address] Formerly [facility] 10/24/24 Raji Guerrero Radiation Oncology 12/24/18 Lab Animal Technologist Relationship Specialty Start Date End Date Emil Braswell MD [address] [facility] [place] [address] PCP - General Family Medicine 12/27/16 Arthur Gates MD [address] [place] [address] Oncology 12/24/18 Ruba Trujillo, DEFENCE INTELLIGENCE ANALYST.FAMILY PROTECTION SPECIALIST [address] [facility] [place] [phone] [facility]ly [facility] 10/24/24 Reva Wasserman DEFENCE INTELLIGENCE ANALYST.FAMILY PROTECTION SPECIALIST [address] [facility] [place] [address] Formerly [facility] 10/24/24 Cesar Raji Radiation Oncology 12/24/18 Lab Animal Technologist Relationship Specialty Start Date End Date Emil Braswell MD [address] [facility] [place], [place] [address] [phone] PCP - General Family Medicine 12/27/16 Arthur Gates MD [address] [place] [address] Oncology 12/24/18 Ruba Trujillo, DEFENCE INTELLIGENCE ANALYST.FAMILY PROTECTION SPECIALIST [address] [facility] [place] [address] Formerly [facility] 10/24/24 Reva Wasserman, DEFENCE INTELLIGENCE ANALYST.FAMILY PROTECTION SPECIALIST [address] [facility] [place] [address] Formerly [facility] 10/24/24 Raji Guerrero Radiation Oncology 12/24/18 Lab Animal Technologist Relationship Specialty Start Date End Date Emil Braswell MD [address] [facility] [place] [address] PCP - General Family Medicine 12/27/16 Arthur Gates MD [address] [place] [address] Oncology 12/24/18 Ruba Trujillo, DEFENCE INTELLIGENCE ANALYST.FAMILY PROTECTION SPECIALIST [address] [facility] [place] [address] Sign Language Teacher [facility] 10/24/24 Reva Wasseramn APRN.FAMILY PROTECTION SPECIALIST [address] [facility] [place] [address] [facility] 10/24/24 Raji Guerrero Radiation Oncology 12/24/18 Team Status: Active Member Role/Relationship Status Dates Dr. Emil Braswell MD Primary Care Provider Active Team Status: Inactive Member Role/Relationship Status Dates Dr. Emil Braswell MD Primary Care Provider Active Start: May 30, 2025 End: May 30, 2025 Dr. Emil Braswell MD Referring Provider Active Start: May 30, 2025 End: May 30, 2025 Dr. Arthur Gates MD Attending Provider Active S tart: May 30, 2025 End: May 30, 2025 Team Status: Active Member Role/Relationship Status Dates Dr. Emil Braswell MD Primary Care Provider Active Start: May 30, 2025 Dr. Emil Braswell MD Family Provider Active Sta rt: May 30, 2025 Dr. Emil Braswell MD Referring Provider Active Start: May 30, 2025 Dr. Cornell Guerrero DO Other Provider Active Sta rt: May 30, 2025 Dr. Arthur Gates MD Attending Provider Active S tart: May 30, 2025 Lab Animal Technologist Relationship Specialty Start Date End Date Emil Braswell MD [address] [facility] [place] [address] PCP - General Family Medicine 12/27/16 Arthur Gates MD [address] [place] [address] Oncology 12/24/18 Ruba Trujillo APRN.FAMILY PROTECTION SPECIALIST [address] [facility] [place] [address] [facility] 10/24/24 Reva Wasserman APRN.FAMILY PROTECTION SPECIALIST [address] [place] [address] Formerly [facility] 10/24/24 Raji Guerrero Radiation Oncology 12/24/18 Lab Animal Technologist Relationship Specialty Start Date End Date Emil Braswell MD [address] [facility] [place] [address] PCP - General Family Medicine 12/27/16 Arthur Gates MD [address] [place] [address] Oncology 12/24/18 Ruba Trujillo, DEFENCE INTELLIGENCE ANALYST.FAMILY PROTECTION SPECIALIST [address] [facility] [place] [address] Formerly [facility] 10/24/24 Reva Wasserman, DEFENCE INTELLIGENCE ANALYST.FAMILY PROTECTION SPECIALIST [address] [place] [address] Formerly [facility] 10/24/24 Raji Guerrero Radiation Oncology 12/24/18 Lab Animal Technologist Relationship Specialty Start Date End Date Emil Braswell MD [address] [place] [address] PCP - General Family Medicine 12/27/16 Arthur Gates MD [address] [place] [address] Oncology 12/24/18 Ruba Trujillo, DEFENCE INTELLIGENCE ANALYST.FAMILY PROTECTION SPECIALIST [address] [facility] [place] [address] Formerly [facility] 10/24/24 Reva Wasserman DEFENCE INTELLIGENCE ANALYST.FAMILY PROTECTION SPECIALIST [address] [facility] [place] [address] Formerly [facility] 10/24/24 Raji Guerrero Radiation Oncology 12/24/18 Lab Animal Technologist Relationship Specialty Start Date End Date Emil Braswell MD [address] [facility] [place] [phone] PCP - General Family Medicine 12/27/16 Arthur Gates MD [address] [place] [address] Oncology 12/24/18 Ruba Trujillo APRN.FAMILY PROTECTION SPECIALIST [address] [facility] [place] [address] Formerly [facility] 10/24/24 Reva Wasserman, DEFENCE INTELLIGENCE ANALYST.FAMILY PROTECTION SPECIALIST [address] [facility] [place] [id number] [facility]ly [facility] 10/24/24 Raji Guerrero Radiation Oncology 12/24/18 Team Status: Inactive Member Role/Relationship Status Dates Dr. Emil Braswell MD Primary Care Provider Active Start: May 16, 2025 Dr. Yolanda Ash MD Attending Provider Active Start: May 16, 2025 Team Status: Inactive Member Role/Relationship Status Dates Dr. Emil Braswell MD Primary Care Provider Active Start: May 30, 2025 End: May 30, 2025 Dr. Emil Braswell MD Referring Provider Active Start: May 30, 2025 End: May 30, 2025 Dr. Arthur Gates MD Attending Provider Active S tart: May 30, 2025 End: May 30, 2025 Team Status: Active Member Role/Relationship Status Dates Dr. Emil Braswell MD Primary Care Provider Active Start: May 30, 2025 Dr. Emil Braswell MD Family Provider Active Sta rt: May 30, 2025 Dr. Emil Braswell MD Referring Provider Active Start: May 30, 2025 Dr. Cornell Guerrero DO Other Provider Active Sta rt: May 30, 2025 Dr. Arthur Gates MD Attending Provider Active S tart: May 30, 2025 Team Status: Inactive Member Role/Relationship Status Dates Dr. Emil Braswell MD Primary Care Provider Active Start: July 04, 2025 End: July 04, 2025 Dr. Emil Braswell MD Referring Provider Active Start: July 04, 2025 End: July 04, 2025 Dr. Yolanda Ash MD Attending Provider Active Start: July 04, 2025 End: July 04, 2025 Lab Animal Technologist Relationship Specialty Start Date End Date Emil Braswell MD [address] [facility], [place] [address] PCP - General Family Medicine 12/27/16 Arthur Gates MD [address] [place] [address] Oncology 12/24/18 Ruba Trujillo APRN.FAMILY PROTECTION SPECIALIST [address] [facility], [place] [phone] Sign Language Teacher Family Medicine 10/24/24 Reva Wasserman, DEFENCE INTELLIGENCE ANALYST.FAMILY PROTECTION SPECIALIST [address] [facility], [place] [address] Sign Language Teacher Family Medicine 10/24/24 Raji Guerrero Radiation Oncology 12/24/18 Lab Animal Technologist Relationship Specialty Start Date End Date Emil Braswell MD [address] [facility], [place] [phone] PCP - General Family Medicine 12/27/16 Arthur Gates MD [address] [place] [address] Oncology 12/24/18 Ruba Trujillo APRN.FAMILY PROTECTION SPECIALIST [address] [facility] [place] [phone] [facility] 10/24/24 Reva Wasserman APRN.FAMILY PROTECTION SPECIALIST [address] [facility] [phone] [facility]ly [facility] 10/24/24 Raji Guerrero Radiation Oncology 12/24/18 FOR RECORDS PERTAINING TO PATIENTS WHO ARE OR HAVE BEEN ENROLLED IN A CHEMICAL DEPENDENCY/SUBSTANCEABUSE PROGRAM, SOME INFORMATION MAY BE OMITTED. This clinical summary was aggregated from multiple sources. Caution should be exercised in using it in the provision of clinical care. This summary normalizes information from multiple sources, and as a consequence, information in this document may materially change the coding, format and clinical context of patient data. In addition, data may be omitted in some cases. CLINICAL DECISIONS SHOULD BE BASED ON THE PRIMARY CLINICAL RECORDS. [facility] [employer] provides no warranty or guarantee of the accuracy or completeness of information in this document.
--- NOTE | 2025-10-01 20:10 | CT_ITS ---
PROCEDURE: CTA HEAD AND NECK W/ CONTRAST 10/01/2025 REASON FOR EXAM: CONFUSION. TRANSIENT LEFT FACIAL DROOP TECHNIQUE: Procedure Code: CTCTA.HDNCK Modality: CT Procedure: CTA HEAD AND NECK W/ CONTRAST Multiplanar Sagittal and Coronal images were obtained. CONTRAST: 100 mL of Isovue 370 One or more dose reduction techniques were used (e.g., Automated exposure control, adjustment of the mA and/or kV according to patient size, use of iterative reconstruction technique). RADIATION DOSE SUMMARY: DLP: 1523 mGycm COMPARISON: none FINDINGS: The aortic arch demonstrates a type I configuration. The ostia of the great vessels are patent. There is conventional branching. The right CCA is patent. Mild stenosis of the carotid bulb and carotid siphon due to atherosclerosis. The cervical right ICA is patent. The right MCA and right NADIA appear patent. There is no large vessel occlusion. The left CCA is patent. Mild stenosis of the carotid bulb and carotid siphon due to atherosclerosis.. The cervical left ICA is patent. The left MCA and left NADIA appear patent. There is no large vessel occlusion. The right vertebral artery arises from the right subclavian artery. The left vertebral artery arises from the left subclavian artery. Both vertebral arteries are patent. Both vertebral arteries join to form the patent basilar artery. origin of the left [employer]ERSON[employer] B[employer]ER. both proximal [employer]ER segments are patent. There is no large vessel occlusion. There is no enhancing intracranial mass. Shotty cervical lymph nodes are identified. The thyroid gland is heterogeneous. Possible spiculated lesion within the right upper lobe measuring 1.6 x 1.6 cm. No destructive osseous abnormalities identified. Right chest port. CT/CTA Head AND Neck W/ Contrast IMPRESSION: No high grade stenosis or large vessel occlusions. Possible spiculated lesion within the right upper lobe measuring 1.6 x 1.6 cm. Reading Location: [facility]
--- NOTE | 2025-10-01 20:10 | CT_ITS ---
EXAM: CT Head Without Intravenous Contrast CLINICAL INDICATION: CONFUSED TECHNIQUE: Axial computed tomography images of the head/brain without intravenous contrast. This CT exam was performed using one or more of the following dose reduction techniques: automated exposure control, adjustment of the mA and/or kV according to patient size, and/or use of iterative reconstruction technique. COMPARISON: No relevant prior studies available. FINDINGS: BRAIN AND EXTRA-AXIAL SPACES: The cerebral and cerebellar sulci are mildly prominent consistent with mild brain atrophy. No acute intracranial hemorrhage, midline shift or mass effect. If symptoms persist, further evaluation with MRI is recommended. Mild areas of decreased attenuation in the deep cerebral white matter are consistent with mild small vessel ischemic/degenerative changes. BONES/JOINTS: Unremarkable. No acute fracture. SOFT TISSUES: Unremarkable. SINUSES: Unremarkable as visualized. No acute sinusitis. MASTOID AIR CELLS: Unremarkable as visualized. No mastoid effusion. CT/Brain/Head without Contrast IMPRESSION: 1. No acute intracranial hemorrhage, midline shift or mass effect. If symptoms persist, further evaluation with MRI is recommended. 2. Mild small vessel ischemic/degenerative changes. Reading Location: [facility]
[2025-10-01 20:21] VITALS: BP 145/48; PULSE 91; RESP 16; O2SAT 100
[2025-10-01 20:51] VITALS: O2SAT 100
--- NOTE | 2025-10-01 21:00 | CM.ED ---
Social Work Date of referral: 10/01/25 Reason for referral: Discharge planning to rule out potential safety issues Referred by: Patient's nurse Patient provided consent to social work visit. When manager social responsibility arrived, patient's daughter Bren and patient's granddaughter Lakesha were present. Bread Icer asked patient and her family members if manager social responsibility could speak with patient alone, all of whom were agreeable. Bread Icer had been alerted that per EMS report, patient had stated she didn't feel safe at home in regards to the distance from the chair she sleeps in to the bathroom. It was reported that a daughter spoke up to EMS and made reference that patient at one point said she did not feel safe with her and that patient was afraid her was going to hurt her. Patient was noted to be alert and oriented full to her first and last name, date of , complete home address including city, state and zip code, month, day, year and current location. Patient stated it has been getting harder for her to walk the distance she normally does due to the pain/stiffness from her arthritis. Patient denied any safety concerns with her , stated she and her have been for over 66 years and patient denied any history of previous or current domestic violence. Patient stated her is "doing a very good job" with helping take care of her the best he can. Patient stated "he would never lay a hand on me". Patient stated she and her have a lot of family and congregational friends who help when needed and who also provide transportation when needed. Bread Icer then invited patient's daughter Annita and granddaughter Lakesha back in and neither expressed any concerns with patient's , rather, concerns about the unmanaged pain and not being able to get connected with a cattle care worker until January. During the time the manager social responsibility was present, patient's doctor also came in and is going to do a walking assessment to ensure patient is able to ambulate safely. Patient and patient's family denied any other issues/concerns/needs at this time. Annette Bower, CARE PROGRAM RESIDENT, [employer]HER
[2025-10-01 21:39] LABS: Troponin T High Sens 2 HR 31 ng/L (<=14)
[2025-10-01 22:42] LABS: Mucous, Urine 0 SEEN /hpf (<or=2+)
[2025-10-01 22:47] LABS: Color, Urine Yellow (Yellow); Glucose, Dipstick Normal (Normal); Ketone-Dipstick Negative (Negative); Leukocyte Esterase-Dipstick Negative /ul (Negative); Nitrite-Dipstick Negative (Negative); Occult Blood-Urine 10 /ul (Negative); Protein-Dipstick 30 mg/dl (Negative); Specific Gravity, Urine 1.010 (1.002-1.030); Urine Bilirubin Dipstick Negative (Negative)
[2025-10-01 22:55] LABS: Red Blood Cells-Urine 0-5 SEEN /hpf (0-5); Squamous Epithelial Cells - UA 5-10 SEEN /hpf (5-10)
[2025-10-01 22:58] VITALS: BP 167/74; PULSE 88; RESP 18; O2SAT 100
[2025-10-01 23:10] VITALS: BP 141/52; PULSE 91; RESP 16; TEMP 36.7; O2SAT 98
--- NOTE | 2025-10-01 23:12 | PCM.HP.STD ---
HPI - General General Date of Admission: 10/01/25 Date of Service: 10/01/25 Chief Complaint: Dyspnea, fatigue, malaise, increased BL LE edema, transient L sided facial droop. 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 with chart reported history disseminated malignancy with disease noted to the spine as well as lymph nodes with history of previous spinal surgery of the thoracic spine with rods in place, Hypothyroidism, GERD, Diabetes mellitus type II, CKD stage II per GFR trending, r ecently discharged 09/28/2025 secondary to acute heart failure exacerbation and UTI with associated hypoxemia with echocardiogram with EF 75% with no other acute abnormality or concerns with patient chart reported hesitancy about being discharged on Lasix secondary to chronic urinary incontinence therefore held off on any diuretic at discharge with discharge additionally on oral cefdinir for 2 additional days for urinary tract infection who now Aurora presents to the [facility] ED on 10/01/2025 with increased bilateral lower extremity swelling, weight gain, orthopnea, dyspnea as well as confusion in addition to concern earlier in the day for possible left sided facial droop however this is uncertain and has since resolved with decreased reported intake over the last 24 hours prompting family bring patient back in for evaluation. Workup in the ED included T97.8, heart rate 88, BP 137/62, respiratory rate 20, 96% reportedly on room air transition to her 2 L chronic nasal cannula noted to be 100%, CBC with WBC 5.4, human 13.1, platelet 143 with lymphopenia, BMP with Comvax side 34.2, BUN/creatinine 10/0.61, GFR 89, glucose 116, troponin initial 30, repeat delta 31, NT proBNPII 2908, chest x-ray with cardiomegaly pulmonary vascular congestion/edema with inability to exclude superimposed pneumonia, right pleural effusion, CT of the brain with no acute intracranial finding with mild small vessel ischemic/degenerative changes, CTA head and neck with no high-grade stenosis or large vessel occlusion with a possible spiculated lesion within the right upper lobe measuring 1.6 x 1.6 cm, EKG with sinus rhythm with no acute evidence of ischemia. [facility] Medical History Former smoker Urge incontinence Overactive bladder port placement Non-small cell carcinoma of right lung, stage 4 L4-L5 decompression Peripheral neuropathy GERD (gastroesophageal reflux disease) Mass of middle lobe of right lung Pleural effusion, right Disseminated malignancy Hypothyroidism Morbid (severe) obesity due to excess calories Hyperlipidemia associated with type 2 diabetes mellitus Back pain of thoracolumbar region Hypothyroidism Diabetes HTN (hypertension) Metastatic cancer Home Medications Medication Instructions Recorded Last Taken Type NK 10/01/25 Unknown History Allergy/AdvReac Type Severity Reaction Status Date / Time phenazopyridine (From Allergy Nausea Verified 10/01/25 18:22 Pyridium) codeine AdvReac Severe Nausea/Vom/ Verified 10/01/25 18:22 Diarrhea hydrocodone (From Vicodin) AdvReac Severe Nausea/Vom/ Verified 10/01/25 18:22 Diarrhea morphine AdvReac Severe severe Verified 10/01/25 18:22 sedation lisinopril AdvReac Intermediate cough Verified 10/01/25 18:22 Sulfa (Sulfonamide AdvReac Intermediate Unknown Verified 10/01/25 18:22 Antibiotics) sulfamethoxazole (From AdvReac Intermediate Unknown Verified 10/01/25 18:22 Septra) trimethoprim (From Septra) AdvReac Intermediate Unknown Verified 10/01/25 18:22 Family History Father Heart problem Mother Lung cancer Sister Lung cancer Surgical History Hx of cholecystectomy Hx of hemorrhoidectomy History of tonsillectomy Social History (Updated 10/01/25 @ 23:[address] Meaghan France MD) household members: none housing: house Smoking Status: Former smoker alcohol intake: never substance use type: does not use ROS ROS Narrative Admission Review of Systems: CONSTITUTIONAL: No weight loss, fever, chills, + weakness or fatigue. HEENT: + Questionable transient left-sided facial droop. Eyes: No visual loss, blurred vision, double vision or yellow sclerae. Ears, Nose, Throat: No hearing loss, sneezing, congestion, runny nose or sore throat. SKIN: No rash or itching, lesions, wounds. CARDIOVASCULAR: + Increased distal swelling, orthopnea. No chest pain, chest pressure or chest discomfort, palpitations, syncopal events. RESPIRATORY: + Dyspnea. No marked cough or sputum, wheezing, hemoptysis. GASTROINTESTINAL: No anorexia, nausea, vomiting or diarrhea, abdominal pain, melena, BRBPR. GENITOURINARY: No dysuria, frequency, urgency or retention. NEUROLOGICAL: + Questionable transient left-sided facial droop. No headache, dizziness, syncope, paralysis, ataxia, numbness or tingling in the extremities, focal weakness, change in bowel or bladder control, seizure. MUSCULOSKELETAL: No muscle, back pain, joint pain or stiffness. HEMATOLOGIC: No anemia. + Easy bleeding/bruising. LYMPHATICS: No enlarged nodes. No history of splenectomy. PSYCHIATRIC: No history of depression or anxiety. ENDOCRINOLOGIC: No reports of sweating, cold or heat intolerance. No polyuria or polydipsia. ALLERGIES: No history of asthma, hives, eczema or rhinitis. Vital Signs Vital Signs Vital Signs: 10/01/25 18:22 10/01/25 18:36 10/01/25 19:13 Temperature 97.8 F Temperature Source Oral Pulse Rate 88 Respiratory Rate 20 H Respiratory Effort Normal Respiratory Pattern Normal Blood Pressure 137/62 H Blood Pressure Mean 87 Pulse Ox 96 100 Oxygen Delivery Method Room Air Nasal Cannula Oxygen Flow Rate (L/min) 2 10/01/25 20:21 10/01/25 22:58 10/01/25 23:10 Temperature 98.1 F Temperature Source Pulse Rate 91 88 91 Respiratory Rate 16 18 16 Respiratory Effort Respiratory Pattern Blood Pressure 145/48 H 167/74 H 141/52 H Blood Pressure Mean 80 105 81 Pulse Ox 100 100 98 Oxygen Delivery Method Nasal Cannula Oxygen Flow Rate (L/min) 2 Weight Weight: 192 lb 0.362 oz Body Mass Index (BMI) 34.0 Physical Exam Narrative Physical Examination: General: Awake, alert, oriented x 3 and cooperative, seated upright in ED bed, fatigued, no acute distress. Skin: Normal color, normal turgor, no icterus, no cyanosis except occasional stage ecchymoses, abrasion as well as venous stasis skin changes. HEENT: AT/NC, EOMI, PERRLA, MMM, no carotid bruits, difficult to discern JVD given thickened neck. Lungs: Diminished, greater bases, no evidence of any distress, no significantly appreciated rales, ronchi or wheezing. Heart: Regular rate and rhythm; no gallop, rub audible. Abdomen: Soft, obese, NTTP, ND, normal BS, no markedly appreciated HSM. Extremities: No cyanosis, no clubbing, pedal to proximal knee 2+ pitting edema. Neurological: Patient awake, alert, oriented as noted, cognitive function intact; pupils equally reactive to light and accommodation, cranial nerves grossly normal, moving all 4 extremities, no focal deficits, strength moderately to severely globally decreased, FTN intact but patient does have difficulty raising arms because of bilateral shoulder chronic issues, difficulty with HTS secondary to limited ROM/pain, able to raise BL legs but not significantly high because of discomfort, equivocal Babinski, sensation intact. Psychiatric: Affect appears normal, no acute evidence of depressive or anxiety feelings. Results Lab / Micro Data 10/01/25 19:10 10/01/25 19:10 Labs: Laboratory Results - last 24 hr 10/01/25 19:10: WBC 5.4, RBC 4.42, Hgb 13.1, Hct 43.6, MCV 98.6, MCH 29.6, MCHC 30.0 L, RDW Std Deviation 52.8 H, RDW Coeff of Lalit 14.4, Plt Count 143 L, MPV 11.1, Immature Gran % (Auto) 0.600, Neut % (Auto) 75.8 H, Lymph % (Auto) 10.4 L, [place]ford % (Auto) 8.3, Eos % (Auto) 4.3, Baso % (Auto) 0.6, Absolute Neuts (auto) 4.1, Absolute Lymphs (auto) 0.56 L, Nucleated RBC % 0, Sodium 139, Potassium 3.4, Chloride 99, Carbon Dioxide 34.2 H, Anion Gap 6, BUN 10, Creatinine 0.61 L, Estim Creat Clear Calc 56.73, Est GFR (MDRD) Non-Af 89, BUN/Creatinine Ratio 17.1, Glucose 116 H, Calcium 9.2, Troponin T High Sens 30 H D, NT pro BNP II 2908 H 10/01/25 21:15: Troponin T Hi Sens 2 Hr 31 H 10/01/25 22:37: Urine Color Yellow, Urine Clarity Clear, Urine pH 7.0, Ur Specific [place] 1.010, Urine Protein 30 H, Urine Glucose (UA) Normal, Urine Ketones Negative, Urine Occult Blood 10 H, Urine Nitrite Negative, Urine Bilirubin Negative, Urine Urobilinogen Normal, Ur Leukocyte Esterase Negative, Urine RBC 0-5 SEEN, Urine WBC 0-5 SEEN, Ur Squamous Epith Cells 5-10 SEEN, Urine Bacteria 1+, Urine Mucus 0 SEEN Rhythm Strip Rhythm Strip: Sinus Rhythm Rate: 89 Ectopy: None Imaging Radiology Impression Chest X-Ray 10/01/25 18:49 IMPRESSION: 1. Cardiomegaly with pulmonary congestion and edema. Superimposed pneumonia cannot be excluded. 2. Right pleural effusion. Reading Location: [facility] Brain CT 10/01/25 20:10 IMPRESSION: 1. No acute intracranial hemorrhage, midline shift or mass effect. If symptoms persist, further evaluation with MRI is recommended. 2. Mild small vessel ischemic/degenerative changes. Reading Location: [facility] Head/Neck CTA 10/01/25 20:10 IMPRESSION: No high grade stenosis or large vessel occlusions. Possible spiculated lesion within the right upper lobe measuring 1.6 x 1.6 cm. 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 with chart reported history disseminated malignancy with disease noted to the spine as well as lymph nodes with history of previous spinal surgery of the thoracic spine with rods in place, Hypothyroidism, GERD, Diabetes mellitus type II, CKD stage II per GFR trending, r ecently discharged 09/28/2025 secondary to acute heart failure exacerbation and UTI with associated hypoxemia with echocardiogram with EF 75% with no other acute abnormality or concerns with patient chart reported hesitancy about being discharged on Lasix secondary to chronic urinary incontinence therefore held off on any diuretic at discharge with discharge additionally on oral cefdinir for 2 additional days for urinary tract infection who now Aurora presents to the [facility] ED on 10/01/2025 with increased bilateral lower extremity swelling, weight gain, orthopnea, dyspnea as well as confusion in addition to concern earlier in the day for possible left sided facial droop however this is uncertain and has since resolved with decreased reported intake over the last 24 hours prompting family bring patient back in for evaluation. #1. Questionable transient left-sided facial droop, confusion, concerning for TIA/CVA with worsening Adult FTT (also secondary to #2): Will admit to PCU, will obtain MRI Brain, will defer repeat ECHO as recently performed, PT/OT/Speech/Nutrition evaluation per protocol. Will allow permissive HTN except for pulse dose Lasix given concurrent presentation #2, will initiate on baby aspirin, will add statin therapy. Mag, TSH, FLP, HgbA1c requested. Maintain on fall and aspiration precautions. Will have Ativan for MRI as patient reports significant anxiety with this type of study however may need to reassess and give additional pending response to initial Ativan. #2. Acute Decompensated HFpEF: Will maintain on cardiac telemetry, will post dose with IV Lasix x 1 will hold any aggressive further regimen given permissive hypertension needs given #1, continue to monitor I/Os, maintain on intake restriction, will initiate on baby aspirin therapy, statin also will be added as noted #1, once clinically appropriate may need to reconsider patient medications as currently she is not on any beta-werner therapy, noted ISSA related coughing but not on the ARB, also had not been discharged on Lasix secondary to patient resistance given concerns for worsening urinary incontinence but may need to be reassessed given her representation, will obtain TSH and magnesium level. Given recent echo will not repeat, will place my Issa wrap's.. #3. 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 with chart reported history disseminated malignancy: Patient with with disease noted to the spine as well as lymph nodes with history of previous spinal surgery of the thoracic spine with rods in place, status post previous spinal radiation as well as 4 cycles of carbo/Alimta/Keytruda and 1 cycle of Keytruda maintenance with issues with persistent right-sided pleural effusion, most recent CT imaging 05/10/2025 at [facility] with no progressive disease with planned ongoing observation, CT with also noted spiculated lesion within the right upper lobe measuring 1.6 x 1.6 cm, encourage early follow-up given CT findings currently as purportedly from recent 05/[address] around that time including clinic the CT had not been concerning. #4. Diabetes mellitus type II: Noted chart history, most recent hemoglobin A1c 6.0% consistent with prediabetes, not on any oral regimen, repeat hemoglobin A1c requested given presentation as noted, in the interim we will maintain on ADA diet, accu checks w/ ISS. #5. Hypertension: Given presentation will maintain permissive hypertension except for pulsed dose IV Lasix x 1 now, will need to readjust and reconsider medications once patient is clinically appropriate, as needed agents per stroke protocol in the interim #6. Hyperlipidemia: Adding statin therapy as noted, FLP in AM. #7. Former tobacco use: Encourage continued tobacco cessation. #8. Chronic Kidney Disease Stage II per GFR trending: Admission BUN/Cr 10/0.61, GFR 89, baseline renal function primarily 0.8-1.0, repeat BMP in AM. #9. Obesity: Weight loss and lifestyle changes encouraged. #10. GERD: Per current list on a regimen, will have as needed Mylanta. #11. DVT prophylaxis: Lovenox. #12. CODE status: Full Code status. Charges/Coding Visit Charges Inpatient E&M: 37587 Init Hosp L3
--- OUTSIDE RECORDS SUMMARY | 2025-10-01 23:29 | XMS RPT_ITS | CCD ---
Author Organization [facility] CliniSyva Care Team Providers Care Supply Coordinator Name Role Phone Unavailable Primary Care Provider UnavailLucho Coates Admitting Unavailable Lucho Fiore Attending Unavailable Unavailable Primary Care Provider Unavailvicente Braswell MD, Harjinder Min Primary Care Provider Yajaira BRISENO, Arthur Unavailable Arthur Gates MD Unavailable Harjinder Braswell MD Primary Care Provider Ronnie TRAVEL AGENCY MANAGER.Ruba MENDIOLA Unavailable Denise TRAVEL AGENCY MANAGER.SCREENING TECHNICIAN, Reva A Unavailable Michaelle BRISENO, Dr. Grande Primary Care Provider Michaelle BRISENO, Dr. Grande Referring Provider Yajaira BRISENO, Dr. Gibson Attending Provider Cesar SANTOS, Dr. Sarabia Other Provider Michaelle BRISENO, Dr. Grande Primary Care Provider Mihir BRISENO, Dr. Guerrero Attending Provider RUBA TRUJILLO Attending Unavailable HARJINDER BRASWELL Primary Care Unavailable REVA WASSERMAN A Referring Unavailable HARJINDER BRASWELL Primary Care Unavailable REVA WASSERMAN A Referring Unavailable HARJINDER BRASWELL Primary Care Unavailable REVA WASSERMAN A Attending Unavailable SELF Referring Unavailable HARJINDER BRASWELL Primary Care Unavailable RUBA TRUJILLO Attending Unavailable HARJINDER BRASWELL Primary Care Unavailable RUBA TRUJILLO Referring Unavailable HARJINDER BRASWELL Primary Care Unavailable RUBA TRUJILLO Referring Unavailable HARJINDER BRASWELL Primary Care Unavailable RUBA TRUJILLO Referring Unavailable MICHAELLE, HARJINDER Min Primary Care Unavailable RUBA TRUJILLO Attending Unavailable HARJINDER BRASWELL Primary Care Unavailable WISWELL, NORA Referring Unavailable MICHAELLEHARJINDER Pako Primary Care Unavailable NORA GUERRERO Attending Unavailable [facility], HARJINDER Pako Primary Care Unavailable RUBA TRUJILLO Attending Unavailable MICHAELLE, HARJINDER Min Primary Care Unavailable [place], Harjinder Referring Unavailable BernaArthur bocanegra Attending Unavailable Michaelle, Harjinder Primary Care Unavailable Yolanda Ash Attending Unavailable [place], Harjinder Primary Care Unavailable [place], Harjinder Referring Unavailable Michaelle, Harjinder Primary Care Unavailable Mayco Marc Attending UnavailAlexandro Thompson Consulting Unavailable [place], Harjinder Primary Care Unavailable Alexandro Mathews Attending Unavailable Alexandro Mathews Admitting Unavailable Michaelle, Harjinder Referring Unavailable Arthur Gates Attending Unavailable [place], Harjinder Primary Care Unavailable Cornell Guerrero Consulting Unavailable Allergies Allergy Classification Reported Allergen(s) Allergy Type Date of Onset Reaction(s) Facility (20 sources) Codeine; Translations: [CODEINE] Drug Allergy 10-13-20 05 Vomiting [facility] Work Phone: (5 sources) HYDROcodone Drug Allergy 11-25-19 22 Nausea/Vom/Sparkle rrhea [facility] (20 sources) Lisinopril; Translations: [LISINOPRIL] Drug Allergy 05-24-20 13 Cough [facility] (20 sources) Morphine; Translations: [MORPHINE] Drug Allergy 12-24-19 19 Mental Status Change [facility] Work Phone: (5 sources) Phenazopyridine Drug Allergy 11-25-19 22 Nausea [facility] (5 sources) Sulfamethoxazole Drug Allergy 11-25-19 22 Unknown [facility] (20 sources) Sulfonamides (Antibiotic); Translations: [SULFA (SULFONAMIDE ANTIBIOTICS)] Propensity to adverse reactions 10-13-20 05 Unknown [facility] Work Phone: (5 sources) Trimethoprim Drug Allergy 11-25-19 22 Unknown [facility] (20 sources) Acetaminophen / HYDROcodone; Translations: [HYDROCODONE-ACETAM INOPHEN] Drug Allergy 09-28-20 12 GI Upset [facility] (20 sources) Sulfamethoxazole / Trimethoprim; Translations: [SULFAMETHOXAZOLE-T RIMETHOPRIM] Drug Allergy 10-13-20 05 [facility] Work Phone: (1 source) Codeine Drug Allergy 09-27-20 [facility] (1 source) HYDROcodone Drug Allergy 09-27-20 [facility] (1 source) Lisinopril Drug Allergy 09-27-20 [facility] (1 source) Morphine Drug Allergy 07-04-20 [facility] (1 source) Phenazopyridine Drug Allergy 09-27-20 [facility] (1 source) Sulfamethoxazole Drug Allergy 09-27-20 [facility] (1 source) Trimethoprim Drug Allergy 09-27-20 [facility] Medications Current Medications Medication Drug Class(es) [...] on above: Take 1 capsule by mo [facility] three times daily for 7 days. ciprofloxacin [...] tablet (12 sources) Nonsteroidal Anti-inflammatory Drug Start: Discontinued 1 APPLICATIO TP DAILY NEEDED as needed for Not Specified January 04, 2019 12:44pm April 03, 2019 12:00am April 04, 2019 12:07am Non-small cell carcinoma of right lung, stage 4 Malignant neoplasm of unspecified part of right bronchus or lung Start: 01-04-2019 End: 04-04-2019 Lidocaine-Prilocaine Discont inued 1 APPLICATIO TP DAILY NEEDED 1 January 04, 2019 12:44pm April 04, 2019 12:07am [...] Discontinued 2 MG PO DAILY NEEDED 2 September 19, 2019 1:00am September 25, 2019 [...] 12 hours. PER ORTHO 05/08/2025 05/23/2025 Discontinued Nanabhxvfpca-Yi-Dmrn-Mineral s 1 EACH tablet (2 sources) Start: 08-11-2018 End: 07-04-2025 take 1 tablet by mouth once daily Cacgnwxoytmi-Dg-Mqrs-Minerals 1 EACH tablet Discontinued 1 NMA PO DAILY August 11, 2018 12:00am July 04, 2025 3:02pm diet supplement Start: 08-11-2018 take 1 tablet by maria teresa th once daily Lwuykgfrlhrj-Ue-Eelo-Minerals 1 EACH tab let Active 1 NMA [...] NEEDED as needed for Nausea 30 10 3 January 25, 2019 8:53am March 05, 2019 [...] tablet Discontinued 40 mg PO DAILY 30 3 April 14, 2019 1:02pm August 11, 2019 12:00am August 15, 2019 12:09am Gastroesophageal reflux disease Gastro-esophageal reflux disease without esophagitis GERD phenazopyridine hydrochloride 200 mg oral tablet (5 sources) Start: End: take 1 tablet by mouth every eight hours Phenazopyridine 200 MG tablet Discontinued 200 mg PO Q8H 15 5 0 October 05, 2019 1:00am October 09, 2019 1:00am October 13, 2019 1:08am Dysuria Dysuria microencapsulated potassium chloride 20 meq extended release oral tablet (15 sources) Start: End: take 1 tablet by mouth [...] MEQ tablet Discontinued 20 meq PO DAILY 2 May 10, 2019 12:00am May 12, 2019 3:10pm Hypokalemia Hypokalemia sennosides, senior living 8.6 mg oral capsule (6 sources) Start: [...] on above: Take 3 tablets by mo [facility] twice daily. simvastatin 20 mg oral tablet [...] gram tablet Discontinued 1000 mg PO Q8H 7 0 January 03, 2020 1:00am January 09, 2020 1:00am January 10, 2020 1:08am Start: 01-03-2020 End: 01-10-2020 take 1000 mg by mouth every eight hours Valacyclovir Discontinued 1000 MG PO Q8H 21 7 January 03, 2020 1:00am January 10, [...] follow up. CT report on 05/10/2025 at [facility] reviewed.No evidence of progressive disease. Chronic obstructive [...] current use of oral hypoglycemic medication; Translations: [[facility] (current) use of oral hypoglycemic drugs] Onset: [...] (BMP )on 09-28-2025 BUN/CRE 20.5 RATIO High 09-04 [facility] Comment on above: Performed By: #### L 503.0300, L504.0250, L503.0100 #### [facility] [address] [place], [address] Calcium [Mass/Vol] 8.6 mg/dL Normal 7.6-11.0 [facility] Comment on above: Performed By: #### L 503.0300, L504.0250, L503.0100 #### [facility] [address] [place], [address] Chloride [Moles/Vol] 103 mmol/L Normal 98-108 [facility] Comment on above: Performed By: #### L 503.0300, L504.0250, L503.0100 #### [facility] [address] [place], [address] CO2 [Moles/Vol] 31.3 mmol/L Normal 21.0-32.0 [facility] Comment on above: Performed By: #### L 503.0300, L504.0250, L503.0100 #### [facility] [address] [place], [address] Creatinine [Mass/Vol] 0.84 mg/dL Normal 0.70-1.20 [facility] Comment on above: Performed By: #### L 503.0300, L504.0250, L503.0100 #### [facility] [address] [place], [address] ECRCL 54.68 ml/min Normal 50-250 [facility] Comment on above: Performed By: #### L 503.0300, L504.0250, L503.0100 #### [facility] [address] [place], [address] GAP 7 Normal 5-15 [facility] Comment on above: Performed By: #### L 503.0300, L504.0250, L503.0100 #### [facility] [address] [place], [address] GFR/1.73 sq M.predicted among non-blacks MDRD (S/P/Bld) [Vol rate/Area] 70 mL/min/{1.73_m2} Normal >60 [facility] Comment on above: Result Comment: mL/m in/1.73m2 CKD-EPI Creatinine Equation (2020) Performed By: #### L 503.0300, L504.0250, L503.0100 #### [facility] [address] [place], [address] Glucose [Mass/Vol] 108 mg/dL High 70-99 [facility] Comment on above: Performed By: #### L 503.0300, L504.0250, L503.0100 #### [facility] [address] [place], [address] Potassium [Moles/Vol] 3.8 mmol/L Normal 3.3-5.1 [facility] Comment on above: Performed By: #### L 503.0300, L504.0250, L503.0100 #### [facility] [address] [place], [address] Sodium [Moles/Vol] 142 mmol/L Normal 133-145 [facility] Comment on above: Performed By: #### L 503.0300, L504.0250, L503.0100 #### [facility] [address] [place], [address] Urea nitrogen [Mass/Vol] 17 mg/dL Normal 4-19 [facility] Comment on above: Performed By: #### L 503.0300, L504.0250, L503.0100 #### [facility] [address] [place], [address] CBC W/Diff, Automatedon 11-11 18-2024 Absolute Lymph 0.42 X10 3/uL Low 0.83-4.51 [facility] Comment on above: Performed By: #### L 503.0300, L504.0250, L503.0100 #### [facility] [address] [place], [address] Absolute Neut 3.8 X10 3/uL Normal 2.0-7.7 [facility] Comment on above: Performed By: #### L 503.0300, L504.0250, L503.0100 #### [facility] [address] [place], [address] Basophils/100 WBC (Bld) 0.6 % Normal 0-1 [facility] Comment on above: Performed By: #### L 503.0300, L504.0250, L503.0100 #### [facility] [address] [place], [address] Eosinophils/100 WBC (Bld) 2.8 % Normal 0-5 [facility] Comment on above: Performed By: #### L 503.0300, L504.0250, L503.0100 #### [facility] [address] [place], [address] Erythrocyte distribution width (RBC) [Ratio] 15.3 % High 11.6-14.6 [facility] Comment on above: Performed By: #### L 503.0300, L504.0250, L503.0100 #### [facility] [address] [place], [address] Hematocrit (Bld) [Volume fraction] 42.8 % Normal 37-47 [facility] Comment on above: Performed By: #### L 503.0300, L504.0250, L503.0100 #### [facility] [address] [place], [address] Hemoglobin (Bld) [Mass/Vol] 12.5 g/dL Normal 12.0-15.0 [facility] Comment on above: Performed By: #### L 503.0300, L504.0250, L503.0100 #### [facility] [address] [place], [address] IG% 0.400 Normal 0.0-0.9 [facility] Comment on above: Result Comment: IG% - Immature Granulocytes (promyelocytes, myelocytes and metamyelocytes) > 1% indicates that a LEFT SHIFT is Present. Performed By: #### L 503.0300, L504.0250, L503.0100 #### [facility] [address] [place], [address] Lymphocytes/100 WBC (Bld) 8.9 % Low 19-41 [facility] Comment on above: Performed By: #### L 503.0300, L504.0250, L503.0100 #### [facility] [address] [place], [address] MCH (RBC) [Entitic mass] 29.2 pg Normal 27.0-32.0 [facility] Comment on above: Performed By: #### L 503.0300, L504.0250, L503.0100 #### [facility] [address] [place], [address] MCHC (RBC) [Mass/Vol] 29.2 g/dL Low 32-36 [facility] Comment on above: Performed By: #### L 503.0300, L504.0250, L503.0100 #### [facility] [address] [place], [address] MCV (RBC) [Entitic vol] 100.0 fL High 81-99 [facility] Comment on above: Performed By: #### L 503.0300, L504.0250, L503.0100 #### [facility] [address] [place], [address] Monocytes/100 WBC (Bld) 7.8 % Normal 0-10 [facility] Comment on above: Performed By: #### L 503.0300, L504.0250, L503.0100 #### [facility] [address] [place], [address] Neutrophils/100 WBC (Bld) 79.5 % High 47-70 [facility] Comment on above: Performed By: #### L 503.0300, L504.0250, L503.0100 #### [facility] [address] [place], [address] Nucleated RBC (Bld) [#/Vol] 0 10*3/uL Normal 0-5 [facility] Comment on above: Performed By: #### L 503.0300, L504.0250, L503.0100 #### [facility] [address] [place], [address] Platelet mean volume (Bld) [Entitic vol] 11.3 fL Normal 6.2-12.0 [facility] Comment on above: Performed By: #### L 503.0300, L504.0250, L503.0100 #### [facility] [address] [place], [address] Platelets (Bld) [#/Vol] 159 10*3/uL Normal 150-450 [facility] Comment on above: Performed By: #### L 503.0300, L504.0250, L503.0100 #### [facility] [address] [place], [address] RBC (Bld) [#/Vol] 4.28 10*6/uL Normal 4.2-5.4 [facility] Comment on above: Performed By: #### L 503.0300, L504.0250, L503.0100 #### [facility] [address] [place], [address] RDW SD 55.8 fl High 35.1-43.9 [facility] Comment on above: Performed By: #### L 503.0300, L504.0250, L503.0100 #### [facility] [address] [place], [address] WBC (Bld) [#/Vol] 4.7 10*3/uL Normal 4.4-11.0 [facility] Comment on above: Performed By: #### L 503.0300, L504.0250, L503.0100 #### [facility] [address] [place], [address] Discharge Instructionon 09-16 Discharge Instruction [facility] Medical Records Department [address] [place] [address] Instructions for Home/Discharge Instructions 09/28/25 1334 MR#: [id number] Acct: [id number] Name: TRISH HUNT Rep #: [id number] : 1945 80 From: Alexandro Mathews MD PCP: Dr. Harjinder Braswell MD Status:ADM IN Discharge Instructions DC [...] Attending Provider: Alexandro Mathews Primary Care Provider: Harjinder Braswell Discharge Orders/Prescriptions Prescriptions: New cefdinir 300 mg capsule 300 mg PO BID 2 Days Qty: 4 0RF Continued ibuprofen 800 mg tablet 800 mg PO Q8H Referrals / Follow Up: Dejon Mcclendon DO [Med Staff - Active Staff, Pulmonary Medicine] - Within 2 Weeks Referral Note: Needs PFTs Harjinder Braswell MD [Primary Care Provider, Medical] - Within 1 Week Disposition Disposition (needs filled in before D/C Order can be placed): Home, Self Care 09/28/25 1338 Alexandro Mathews MD CC: Dr. Harjinder Braswell MD Signed Normal [facility] Urine Cultureon 09-28-2025 URC Identification and sensitivity to follow. 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 [place], [place], [id number] Basic Metabolic Profile (BMP )on 09-27-2025 BUN/CRE 27.4 RATIO High 10-20 [facility] Comment on above: Performed By: #### L 501.5200, L503.7505, L501.4021, L500.2500, L100.0100, L501.9520 #### [facility] [address] [place], [address] Calcium [Mass/Vol] 9.0 mg/dL Normal 7.6-11.0 [facility] Comment on above: Performed By: #### L 501.5200, L503.7505, L501.4021, L500.2500, L100.0100, L501.9520 #### [facility] [address] [place], [address] Chloride [Moles/Vol] 107 mmol/L Normal 98-108 [facility] Comment on above: Performed By: #### L 501.5200, L503.7505, L501.4021, L500.2500, L100.0100, L501.9520 #### [facility] [address] [place], [address] CO2 [Moles/Vol] 29.1 mmol/L Normal 21.0-32.0 [facility] Comment on above: Performed By: #### L 501.5200, L503.7505, L501.4021, L500.2500, L100.0100, L501.9520 #### [facility] [address] [place], [address] Creatinine [Mass/Vol] 0.76 mg/dL Normal 0.70-1.20 [facility] Comment on above: Performed By: #### L 501.5200, L503.7505, L501.4021, L500.2500, L100.0100, L501.9520 #### [facility] [address] [place], [address] ECRCL 57.31 ml/min Normal 50-250 [facility] Comment on above: Performed By: #### L 501.5200, L503.7505, L501.4021, L500.2500, L100.0100, L501.9520 #### [facility] [address] [place], [address] GAP 9 Normal 5-15 [facility] Comment on above: Performed By: #### L 501.5200, L503.7505, L501.4021, L500.2500, L100.0100, L501.9520 #### [facility] [address] [place], [address] GFR/1.73 sq M.predicted among non-blacks MDRD (S/P/Bld) [Vol rate/Area] 78 mL/min/{1.73_m2} Normal >60 [facility] Comment on above: Result Comment: mL/m in/1.73m2 CKD-EPI Creatinine Equation (2020) Performed By: #### L 501.5200, L503.7505, L501.4021, L500.2500, L100.0100, L501.9520 #### [facility] [address] [place], [address] Glucose [Mass/Vol] 86 mg/dL Normal 70-99 [facility] Comment on above: Performed By: #### L 501.5200, L503.7505, L501.4021, L500.2500, L100.0100, L501.9520 #### [facility] [address] [place], [address] Potassium [Moles/Vol] 3.9 mmol/L Normal 3.3-5.1 [facility] Comment on above: Performed By: #### L 501.5200, L503.7505, L501.4021, L500.2500, L100.0100, L501.9520 #### [facility] [address] [place], [address] Sodium [Moles/Vol] 145 mmol/L Normal 133-145 [facility] Comment on above: Performed By: #### L 501.5200, L503.7505, L501.4021, L500.2500, L100.0100, L501.9520 #### [facility] [address] [place], [address] Urea nitrogen [Mass/Vol] 21 mg/dL High 4-19 [facility] Comment on above: Performed By: #### L 501.5200, L503.7505, L501.4021, L500.2500, L100.0100, L501.9520 #### [facility] [address] [place], [address] Body Fluid Cell Count+Diffon 09-27-2025 BFM 2ND SPEC SEE COMMENT Normal [facility] Comment on above: Order Comment: The r eference interval(s) and other method performancespecifications are unavailable for this body fluid.Comparison of the result with concentration in the blood,serum, or plasma is recommended. Performed By: #### L 503.0300, L504.0250, L503.0100 #### [facility] [address] [place], [address] PATH COMM/BF May follow Normal [facility] Comment on above: Order Comment: The r eference interval(s) and other method performancespecifications are unavailable for this body fluid.Comparison of the result with concentration in the blood,serum, or plasma is recommended. Performed By: #### L 503.0300, L504.0250, L503.0100 #### [facility] [address] [place], [address] CBC W/Diff, Automatedon 09-16 Absolute Lymph 0.54 X10 3/uL Low 0.83-4.51 [facility] Comment on above: Performed By: #### L 501.5200, L503.7505, L501.4021, L500.2500, L100.0100, L501.9520 #### [facility] [address] [place], [address] Absolute Neut 3.3 X10 3/uL Normal 2.0-7.7 [facility] Comment on above: Performed By: #### L 501.5200, L503.7505, L501.4021, L500.2500, L100.0100, L501.9520 #### [facility] [address] [place], [address] Basophils/100 WBC (Bld) 0.9 % Normal 0-1 [facility] Comment on above: Performed By: #### L 501.5200, L503.7505, L501.4021, L500.2500, L100.0100, L501.9520 #### [facility] [address] [place], [address] Eosinophils/100 WBC (Bld) 2.5 % Normal 0-5 [facility] Comment on above: Performed By: #### L 501.5200, L503.7505, L501.4021, L500.2500, L100.0100, L501.9520 #### [facility] [address] [place], [address] Erythrocyte distribution width (RBC) [Ratio] 15.5 % High 11.6-14.6 [facility] Comment on above: Performed By: #### L 501.5200, L503.7505, L501.4021, L500.2500, L100.0100, L501.9520 #### [facility] [address] [place], [address] Hematocrit (Bld) [Volume fraction] 44.1 % Normal 37-47 [facility] Comment on above: Performed By: #### L 501.5200, L503.7505, L501.4021, L500.2500, L100.0100, L501.9520 #### [facility] [address] [place], [address] Hemoglobin (Bld) [Mass/Vol] 13.6 g/dL Normal 12.0-15.0 [facility] Comment on above: Performed By: #### L 501.5200, L503.7505, L501.4021, L500.2500, L100.0100, L501.9520 #### [facility] [address] [place], [address] IG% 0.500 Normal 0.0-0.9 [facility] Comment on above: Result Comment: IG% - Immature Granulocytes (promyelocytes, myelocytes and metamyelocytes) > 1% indicates that a LEFT SHIFT is Present. Performed By: #### L 501.5200, L503.7505, L501.4021, L500.2500, L100.0100, L501.9520 #### [facility] [address] [place], [address] Lymphocytes/100 WBC (Bld) 12.4 % Low 19-41 [facility] Comment on above: Performed By: #### L 501.5200, L503.7505, L501.4021, L500.2500, L100.0100, L501.9520 #### [facility] [address] [place], [address] MCH (RBC) [Entitic mass] 29.9 pg Normal 27.0-32.0 [facility] Comment on above: Performed By: #### L 501.5200, L503.7505, L501.4021, L500.2500, L100.0100, L501.9520 #### [facility] [address] [place], [address] MCHC (RBC) [Mass/Vol] 30.8 g/dL Low 32-36 [facility] Comment on above: Performed By: #### L 501.5200, L503.7505, L501.4021, L500.2500, L100.0100, L501.9520 #### [facility] [address] [place], [address] MCV (RBC) [Entitic vol] 96.9 fL Normal 81-99 [facility] Comment on above: Performed By: #### L 501.5200, L503.7505, L501.4021, L500.2500, L100.0100, L501.9520 #### [facility] [address] [place], [address] Monocytes/100 WBC (Bld) 7.1 % Normal 0-10 [facility] Comment on above: Performed By: #### L 501.5200, L503.7505, L501.4021, L500.2500, L100.0100, L501.9520 #### [facility] [address] [place], [address] Neutrophils/100 WBC (Bld) 76.6 % High 47-70 [facility] Comment on above: Performed By: #### L 501.5200, L503.7505, L501.4021, L500.2500, L100.0100, L501.9520 #### [facility] [address] [place], [address] Nucleated RBC (Bld) [#/Vol] 0 10*3/uL Normal 0-5 [facility] Comment on above: Performed By: #### L 501.5200, L503.7505, L501.4021, L500.2500, L100.0100, L501.9520 #### [facility] [address] [place], [address] Platelet mean volume (Bld) [Entitic vol] 10.5 fL Normal 6.2-12.0 [facility] Comment on above: Performed By: #### L 501.5200, L503.7505, L501.4021, L500.2500, L100.0100, L501.9520 #### [facility] [address] [place], [address] Platelets (Bld) [#/Vol] 144 10*3/uL Low 150-450 [facility] Comment on above: Performed By: #### L 501.5200, L503.7505, L501.4021, L500.2500, L100.0100, L501.9520 #### [facility] [address] [place], [address] RBC (Bld) [#/Vol] 4.55 10*6/uL Normal 4.2-5.4 [facility] Comment on above: Performed By: #### L 501.5200, L503.7505, L501.4021, L500.2500, L100.0100, L501.9520 #### [facility] [address] [place], [address] RDW SD 54.9 fl High 35.1-43.9 [facility] Comment on above: Performed By: #### L 501.5200, L503.7505, L501.4021, L500.2500, L100.0100, L501.9520 #### [facility] [address] [place], [address] WBC (Bld) [#/Vol] 4.4 10*3/uL Normal 4.4-11.0 [facility] Comment on above: Performed By: #### L 501.5200, L503.7505, L501.4021, L500.2500, L100.0100, L501.9520 #### [facility] [address] [place], [address] CTA Chest W/WO Contraston CTA Chest W/WO Contrast [facility] Imaging Services [address] [place] [address] CTA Chest W/WO Contrast MR#: [id number] Acct: [id number] Name: TRISH HUNT Rep #: [id number] : 1945 F 80 From: Sixto yañez MD PCP: Dr. Harjinder Braswell MD Status: [facility] ER Study: CTA Chest W/WO Contrast Date of Exam: 09/27/25 Exam# [id number] Ordering Dr: Rosa Richardson DO PROCEDURE: CTA [...] atelectasis. This is essentially unchanged. Reading Location: [place] [address] CC: Dr. Rosa Richardson DO; Dr. Harjinder Braswell MD Home Service Consultant: Signed Normal [facility] Chest Insp/Exp 2 Viewon 09-16 Chest Insp/Exp 2 View [facility] Imaging Services [address], [place] [id number] Chest Insp/Exp 2 View MR#: [id number] Acct: [id number] Name: TRISH HUNT Rep #: [id number] : 1945 F 80 From: Sixto yañez MD PCP: Dr. Harjinder Braswell MD Status: ADM IN Study: Chest Insp/Exp 2 View Date of Exam: 09/27/25 Exam# [id number] Ordering Dr: Sixto Bess PROCEDURE: CHEST INSP/EXP [...] right-sided pneumothorax following the thoracentesis. Reading Location: [place] [address] CC: Dr. Sixto Bess MD; Dr. Harjinder Braswell MD Home Service Consultant: Signed Normal [facility] Echo Complete W/ Contraston 09-27-2025 Echo Complete W/ Contrast [facility] [address] [place] [address] Echo Complete W/ Contrast 09/28/25 0830 MR#: [id number] Acct: [id number] Name: TRISH HUNT Rep #: [id number] : 1945 80 From: Mayco Marc MD [...] insufficiency. Ordering Physician: Alexandro Mathews Referring Physician: Harjinder Braswell Performed By: Annita Bolanos, CECI, RVT 09/28/258 Date Mayco Marc MD CC: Dr. Alexandro Mathews MD; Dr. Harjinder Braswell MD Date Dictated: 09/28/25829 Date Transcribed: 09/28/25 125 Home Service Consultant: Signed Normal [facility] Emergency Department Summary on 09-27-2025 Emergency Department Summary [facility] Medical Records Department [address] [place] [address] Emergency Department Summary 09/27/25 MR#: [id number] Acct: [id number] Name: BRANDON HUNTBENNIE Min Rep #: [id number] : 1945 80 From: Rosa Richardson DO PCP: Dr. Harjinder Braswell MD Status:ADM IN Location: [place] [address] HPI History of Present Illness Chief Complaint: Edema [...] any fever or chills. No URI symptoms. States has a chronic runny nose which is unchanged. Denies any falls. Normally sleeps in a chair with no change in her sleeping. She follows with Dr. Gates who was her oncologist. She does report decreased urine output as well as decreased appetite. States is not getting around her house as well. Does not wear oxygen at home. No other complaints or concerns reported at this time. Family notes that she has had required a thoracentesis in the past. [facility] Medical History Former smoker Urge incontinence Overactive [...] Neck supple (more content not included)... Normal [facility] Glucose, Body Fluidon 2024 GLUC, BODY FLD 85 mg/dL Normal Not Establ. [facility] Comment on above: Performed By: #### L 503.0300, L504.0250, L503.0100 #### [facility] [address] [place], [address] H AND P Exam - Hospitaliston 09-27-2025 H&P Exam - Hospitalist [facility] Medical Records Department [address] [place] [address] H P Exam - Hospitalist 09/27/25 1250 MR#: [id number] Acct: [id number] Name: TRISH HUNT Rep #: [id number] : 1945 80 From: Alexandro Mathews MD PCP: Dr. Harjinder Braswell MD Status:ADM IN Location: [facility] [id number] HPI - General General Date of Admission: [...] dose of Rocephin in the emergency room. [facility] Medical History Former smoker Urge incontinence Overactive [...] Normal air (more content not included)... Normal [facility] L501.4021on 09-27-2025 Trop T High Sen 43 ng/L High <=14 [facility] Comment on above: Performed By: #### L 501.5200, L503.7505, L501.4021, L500.2500, L100.0100, L501.9520 #### [facility] [address] [place], [address] LDHon 09-27-2025 LDH 144 U/L Normal 84-246 [facility] Comment on above: Performed By: #### L 503.0300, L504.0250, L503.0100 #### [facility] [address] [place], [address] LDH,Body Fluidon 09-27-2025 LDH,BF 88 Units/L Normal Not Establ. [facility] Comment on above: Performed By: #### L 503.0300, L504.0250, L503.0100 #### [facility] [address] [place], [address] M100.678on 09-27-2025 M100.678 Pending SARS-CoV-2 (COVID 19) Negative INFLUENZA A Negative INFLUENZA B Negative RSV PCR Negative Normal [facility] Comment on above: Performed By: #### M 100.678 #### [facility] [address] [place], [address] Magnesiumon 09-27-2025 Magnesium [Mass/Vol] 1.9 mg/dL Normal 1.5-2.2 [facility] Comment on above: Performed By: #### L 501.5200, L503.7505, L501.4021, L500.2500, L100.0100, L501.9520 #### [facility] [address] [place], [address] Pro- Brain NATRIURETIC PEPTI Gaby 09-27-2025 Natriuretic peptide B (Bld) [Mass/Vol] 4354 pg/mL High <=1800 [facility] Comment on above: Result Comment: Hear t Failure Unlikely: < 300 pg/mL Heart Failure Likely < 50 Years: > 450 pg/mL 50-75 Years: > 900 pg/mL >75 Years: > 1800 pg/mL Performed By: #### L 501.5200, L503.7505, L501.4021, L500.2500, L100.0100, L501.9520 #### [facility] [address] [place], [address] Protein, Body Fluidon 2024 Protein [Mass/Vol] 3.1 g/dL Normal Not Establ. [facility] Comment on above: Performed By: #### L 503.0300, L504.0250, L503.0100 #### [facility] [address] [place], [address] Protein, Totalon 09-27-2025 T PROT 6.3 g/dL Normal 5.9-8.4 [facility] Comment on above: Performed By: #### L 503.0300, L504.0250, L503.0100 #### [facility] [address] [place], [address] Prothrombin Time w/INRon INR Coag (PPP) [Relative time] 1.1 {INR} Normal [facility] Comment on above: Order Comment: PT ST ATES TO BE A PORT DRAW-LABELS TUBES LEFT WITH FLOORSEC WHO CONFIRMED SHE WOULD GIVE TO THE NURSE WHEN SHE GOTBACK Performed By: #### L 503.0300, L504.0250, L503.0100 #### [facility] [address] [place], [address] PT Coag (PPP) [Time] 14.5 s Normal 11.7-14.9 [facility] Comment on above: Order Comment: PT ST ATES TO BE A PORT DRAW-LABELS TUBES LEFT WITH FLOORSEC WHO CONFIRMED SHE WOULD GIVE TO THE NURSE WHEN SHE GOTBACK Performed By: #### L 503.0300, L504.0250, L503.0100 #### [facility] [address] [place], [address] Thoracentesis W USon 025 Thoracentesis W [facility] Imaging Services [address] [place] [address] Thoracentesis W MR#: [id number] Acct: [id number] Name: TRISH HUNT Rep #: [id number] : 1945 F 80 From: Sixto yañez MD PCP: Dr. Harjinder Braswell MD Status: ADM IN Study: Thoracentesis W US Date of Exam: 09/27/25 Exam# [id number] Ordering Dr: Alexandro Mathews MD PROCEDURE: THORACENTESIS [...] and under direct sonographic guidance, a 5 Turkmen catheter was placed into the right pleural space. 200 mL of cloudy bev colored fluid was aspirated. A specimen was sent to the laboratory. COMPARISON: Prior CT scan dated September 27, 2025. FINDINGS: Successful right ultrasound-guided thoracentesis. US/Thoracentesis W US IMPRESSION: Successful right ultrasound-guided thoracentesis. The patient tolerated the procedure well. No immediate complication is noted. Reading Location: [place] [address] CC: Dr. Alexandro Mathews MD; Dr. Harjinder Braswell MD Home Service Consultant: Signed Normal [facility] Thyroid Stim Hormone (TSH)on 09-27-2025 TSH 4.750 uIU/mL High 0.300-4.20 0 [facility] Comment on above: Performed By: #### L 501.5200, L503.7505, L501.4021, L500.2500, L100.0100, L501.9520 #### [facility] [address] [place], [address] Troponin T HS 2 HRon 025 Trop T High Sen 43 ng/L High <=14 [facility] Comment on above: Performed By: #### L 503.0300, L504.0250, L503.0100 #### [facility] [address] [place], [address] Troponin T HS 4 HRon 025 Trop T High Sen 49 ng/L High <=14 [facility] Comment on above: Order Comment: PT ST ATES TO BE A PORT DRAW-LABELS TUBES LEFT WITH FLOORSEC WHO CONFIRMED SHE WOULD GIVE TO THE NURSE WHEN SHE GOTBACK Performed By: #### L 503.0300, L504.0250, L503.0100 #### [facility] [address] [place], [address] Urinalysis, Completeon 09-27 BACTERIA 2+ /hpf Normal None Seen [facility] Comment on above: Order Comment: RUTHIE CTOR TO SPECIFY Performed By: #### L 503.0300, L504.0250, L503.0100 #### [facility] [address] [place], [address] EPI,SQUAMOUS 5-10 SEEN Normal 5-10 [facility] Comment on above: Order Comment: RUTHIE CTOR TO SPECIFY Performed By: #### L 503.0300, L504.0250, L503.0100 #### [facility] [address] [place], [address] WBC 50-100 SEEN Normal 0-5 [facility] Comment on above: Order Comment: RUTHIE CTOR TO SPECIFY Performed By: #### L 503.0300, L504.0250, L503.0100 #### [facility] [address] [place], [address] Mucus Ql (Urine sed) 0 SEEN Normal [facility] Comment on above: Order Comment: RUTHIE CTOR TO SPECIFY Performed By: #### L 503.0300, L504.0250, L503.0100 #### [facility] [address] [place], [address] RBC 0 SEEN Normal 0-5 [facility] Comment on above: Order Comment: RUTHIE CTOR TO SPECIFY Performed By: #### L 503.0300, L504.0250, L503.0100 #### [facility] [address] [place], [address] CNPJudith 08-28-2025 MARLENAN Telephone (FAMWS) TRISH HUNT ([id number]) 1945 F Date Time Provider Department 08/28/25 RUBA TRUJILLO During your visit today, we recorded the following information about you: Kerry Ragland, SHARMIN 08/28/2025 2:11 PM Signed Pt calling in stating she tried to make an appointment with Dr. Sara Green's office at [facility]. She is asking for her records to [...] to Dr. Green's office at fax # [phone]. Pt only wants referral to Dr. Green at this time. Pt is away we have a rheumatology PA at [facility] and will call if she would like to see her instead. Ruba Trujillo APRN.MARLENA 08/28/2025 2:12 PM Signed Referral placed. Ruba Trujillo APRN.Kerry Lomas, SHARMIN 08/28/2025 3:40 PM Addendum All office visit notes, x-rays, labs, demographics and referral faxed to Dr. Green's office at [phone] Allergies As of Date: 08/28/2025 Noted Allergy [...] Order(s):CONSULT TO RHEUM/IMMUN DISEASE [9039] Order #: [id number]: 1 FUTURE Prescriptions as of 08/28/2025 - [...] ca*12/04/2018 Localized enlarged lymph nodes [R59.0] 12/04/2018 [facility] (current) use of oral hypoglycemic dr* (more content not included)... Normal [facility] CNOVon 08-09-2025 CNOV Office Visit (FAMPWS ) TRISH HUNT ([id number]) 1945 F Date Time Provider Department 08/09/25 11:20 AM RUBA TRUJILLO [facility] During your visit today, we recorded the following information about you: Pulse Respiration Blood pressure 96/minute 16/minute 120/72 Ruba Trujillo APRN.SCREENING TECHNICIAN 08/09/2025 11:43 AM Addendum Try the duoderm dressings (hydrocolloid dressing). This can protect the area and stay on for several days. Try to do frequent position changes. Check into rheumatology. If not getting better/worsening, let us know. Ruba Trujillo APRN.SCREENING TECHNICIAN 08/09/2025 12:47 PM Signed This is a [...] reports that (more content not included)... Normal [facility] CNOVon 07-11-2025 CNOV [facility] TRISH HUNT ([id number]) 1945 F Date Time Provider Department 07/11/25 2:40 PM RUBA TRUJILLO During your visit today, we [...] hand (M19.041 (more content not included)... Normal [facility] MR/BMS.Esme 07-04-2025 MR/BMS.CLOTILDE [facility] [address], [address] [place] [id number] OFFICE VISIT Date of Service: 07/04/25 MR#: [id number] Acct: [id number] Name: TRISH HUNT Rep #: [id number] : 1945 Provider: Dr. 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 Normal [facility] Basic metabolic 2000 panelon 06-13-2025 Anion gap [Moles/Vol] 14 mmol/L Normal 8-15 [facility] Comment on above: Order Comment: Speci men Type: BLOOD SPECIMENOrdering Facility: [facility] Address: [address] [place] [address] Performed By: #### 2 4321-2, LIPNF, , 2157-04 ####[facility] LABCLIA [id number] [place] [address] [place] Calcium [Mass/Vol] 9.2 mg/dL Normal 8.5-10.2 [facility] Comment on above: Order Comment: Speci men Type: BLOOD SPECIMENOrdering Facility: [facility] Address: [address] [place] [address] Performed By: #### 2 4321-2, LIPNF, , 2157-04 ####[facility] LABCLIA [id number] [place] [address] [place] Chloride [Moles/Vol] 100 mmol/L Normal 98-107 [facility] Comment on above: Order Comment: Speci men Type: BLOOD SPECIMENOrdering Facility: [facility] Address: [address] [place] [address] Performed By: #### 2 4321-2, LIPNF, , 2157-04 ####[facility] LABCLIA [id number] [place] [address] [place] CO2 [Moles/Vol] 26 mmol/L Normal 22-30 [facility] Comment on above: Order Comment: Speci men Type: BLOOD SPECIMENOrdering Facility: [facility] Address: [address] [place] [address] Performed By: #### 2 4321-2, LIPNF, , 2157-04 ####[facility] LABIA [id number] [address] [address] [place] Creatinine [Mass/Vol] 0.87 mg/dL Normal 0.58-0.96 [facility] Comment on above: Order Comment: Speci men Type: BLOOD SPECIMENOrdering Facility: [facility] Address: [address] [place] [address] Performed By: #### 2 4321-2, LIPNF, , 2157-04 ####[facility] LABIA [id number] [place] [address] [place] eGFRcr SerPlBld CKD-EPI 2020 67 mL/min/1.73m??? Normal >=60 [facility] Comment on above: Order Comment: Speci men Type: BLOOD SPECIMENOrdering Facility: [facility] Address: [address] [place] [address] Result Comment: Faye mated Glomerular Filtration Rate [...] actual GFR. Performed By: #### 2 4321-2, LIPNF, , 2157-04 ####[facility] LABIA [id number] [place] [address] [place] Glucose [Mass/Vol] 112 mg/dL High 74-99 [facility] Comment on above: Order Comment: Speci men Type: BLOOD SPECIMENOrdering Facility: [facility] Address: [address] [place] [address] Result Comment: The [place] Diabetes Association (ADA) provides guidance for cutoff [...] Standards of Medical Care in Diabetes 2016, [place] [employer] Association. Diabetes Care. 2016.39(Suppl 1). Performed By: #### 2 4321-2, LIPNF, , 2157-04 ####[facility] LABCLIA [id number] [place] [address] [place] Potassium [Moles/Vol] 4.0 mmol/L Normal 3.7-5.1 [facility] Comment on above: Order Comment: Speci men Type: BLOOD SPECIMENOrdering Facility: [facility] Address: [address] [place] [address] Performed By: #### 2 4321-2, LIPNF, , 2157-04 ####[facility] LABIA [id number] [place] [address] [place] Sodium [Moles/Vol] 140 mmol/L Normal 136-144 [facility] Comment on above: Order Comment: Speci men Type: BLOOD SPECIMENOrdering Facility: [facility] Address: [address] [place] [address] Performed By: #### 2 4321-2, LIPNF, , 2157-04 ####[facility] LABIA [id number] [place] [address] [place] Urea nitrogen [Mass/Vol] 18 mg/dL Normal 7-21 [facility] Comment on above: Order Comment: Speci men Type: BLOOD SPECIMENOrdering Facility: [facility] Address: [address] [place] [address] Performed By: #### 2 4321-2, LIPNF, 69978-0, 2157-04 ####[facility] LABCLIA [id number] [place] [address] [place] CK SerPl-cCncon 06-13-2025 CK [Catalytic activity/Vol] 33 U/L Low 42-196 [facility] Comment on above: Order Comment: Speci men Type: BLOOD SPECIMENOrdering Facility: [facility] Address: [address] [place] [address] Performed By: #### 2 4321-2, LIPNF, 21988-0, 2157-04 ####[facility] LABCLIA [id number] [address] [place] CNOVon 06-13-2025 CNOV Office Visit (FAMPWS ) TRISH HUNT ([id number]) 1945 F Date Time Provider Department 06/13/25 1:00 PM [facility] During your visit today, we recorded the following information about you: Temperature Pulse Blood pressure 98 degrees 96/minute 122/68 Reva Wasserman, TRAVEL AGENCY MANAGER.SCREENING TECHNICIAN 06/13/2025 1:24 PM Signed This is a [...] not discussed hand pain with oncologist, Dr. Jimeenz. Stage IV Lung Cancer: - Diagnosed 6 [...] (Left Tym (more content not included)... Normal [facility] ESR Westergren method (Bld) [Velocity]on 06-13-2025 ESR (Bld) [Velocity] 12 mm/h [facility] Interpretation and review of laboratory results Normal [facility] ESR (Bld) [Velocity] 12 mm/h Normal 0-20 [facility] Comment on above: Order Comment: Speci men Type: BLOOD SPECIMENOrdering Facility: [facility] Address: [address] [place] [id number] Performed By: #### 4 537-7 ####[facility] LABCLIA [id number] [address] [place] LIPID PANEL, NONFASTINGon Cholesterol [Mass/Vol] 172 mg/dL Normal <200 [facility] Comment on above: Order Comment: Speci men Type: BLOOD SPECIMENOrdering Facility: [facility] Address: [address] [place] [address] Result Comment: <200 mg/dL, Desirable 200-239 mg/dL, Borderline high >239 mg/dL, High Performed By: #### 2 4321-2, LIPNF, , 2157-04 ####[facility] LABCLIA [id number] [address] [place] HDL CHOLESTEROL, NF 54 mg/dL Normal >39 [facility] Comment on above: Order Comment: Speci men Type: BLOOD SPECIMENOrdering Facility: [facility] Address: [address] [place] [address] Result Comment: 40-5 9 mg/dL, Acceptable >59 mg/dL, High: Negative risk factor for coronary heart disease <40 mg/dL, Low: Positive risk factor for coronary heart disease Performed By: #### 2 4321-2, LIPNF, , 2157-04 ####[facility] LABCLIA [id number] [address] OF [facility] LDL CHOLESTEROL CALCULATED, NF 97 mg/dL Normal <100 [facility] Comment on above: Order Comment: Speci men Type: BLOOD SPECIMENOrdering Facility: [facility] Address: [address] [place] [address] Result Comment: <100 mg/dL, Optimal 100-129 mg/dL, Near optimal/above optimal 130-159 mg/dL, Borderline high 160-189 mg/dL, High >189 mg/dL, Very high Secondary prevention optimal LDL Cholesterol levels are recommended to be <70 mg/dL LDL cholesterol is calculated using the Rhoades-NIH equation. Performed By: #### 2 4321-2, LIPNF, , 2157-04 ####[facility] LABCLIA [id number] [address] OF [facility] LDL/HDL RATIO, NF 1.80 mg/dL Normal <2.54 [facility] Comment on above: Order Comment: Alexandriai men Type: BLOOD SPECIMENOrdering Facility: [facility] Address: [address] [place] [address] Result Comment: Refe rence: 1. National Cholesterol Education Program ATP III Guideline At-A-Glance Quick Desk Reference: National Heart, Lung, and Blood [place]. National Institutes of Health. 2001: NIH Publication No. 01-3305. 2. An International Atherosclerosis Society position paper: global recommendations for the management of dyslipidemia: executive summary, Atherosclerosis. 2014: 232(2):410-413. Performed By: #### 2 4321-2, LIPNF, , 2157-04 ####[facility] LABCLIA [id number] [address] [place] NON HDL CHOL, NF 118 mg/dL Normal <130 [facility] Comment on above: Order Comment: Robert weber Type: BLOOD SPECIMENOrdering Facility: [facility] Address: [address] [place] [address] Result Comment: <130 mg/dL, Optimal 130-159 mg/dL, Near optimal/above optimal 160-189 mg/dL, Borderline high 190-219 mg/dL, High >219 mg/dL, Very high Secondary prevention optimal non HDL Cholesterol levels are recommended to be <100 mg/dL Performed By: #### 2 4321-2, LIPNF, , 2157-04 ####[facility] LABCLIA [id number] [place] [address] [place] T CHOL/HDL RATIO NF 3.19 mg/dL Normal <5.10 [facility] Comment on above: Order Comment: Alexandriagriselda weber Type: BLOOD SPECIMENOrdering Facility: [facility] Address: [address] [place] [address] Performed By: #### 2 4321-2, LIPNF, , 2157-04 ####[facility] LABCLIA [id number] [address] [address] [place] TRIGLYCERIDES, NF 116 mg/dL Normal <150 [facility] Comment on above: Order Comment: Speci men Type: BLOOD SPECIMENOrdering Facility: [facility] Address: [address] [place] [address] Result Comment: <150 mg/dL, Normal 150-199 mg/dL, Borderline high 200-499 mg/dL, High >499 mg/dL, Very high Performed By: #### 2 4321-2, LIPNF, , 2157-04 ####[facility] LABIA [id number] [place] [address] [place] VLDL CHOLESTEROL, NF 19 mg/dL Normal <30 [facility] Comment on above: Order Comment: Speci men Type: BLOOD SPECIMENOrdering Facility: [facility] Address: [address] [place] [address] Performed By: #### 2 4321-2, LIPNF, , 2157-04 ####[facility] LABIA [id number] [place] [address] [place] Magnesium SerPl-mCncon 06-13 Magnesium [Mass/Vol] 2.0 mg/dL Normal 1.7-2.3 [facility] Comment on above: Order Comment: Speci men Type: BLOOD SPECIMENOrdering Facility: [facility] Address: [address] [place] [address] Performed By: #### 2 4321-2, LIPNF, , 2157-04 ####[facility] LABIA [id number] [place] [address] [place] Nuclear Ab IA Ql (S)on 06-13 MARGOT SCR QUAL Negative Normal Negative [facility] Comment on above: Order Comment: Speci men Type: BLOOD SPECIMENOrdering Facility: [facility] Address: [address] [place] [address] Result Comment: The qualitative antinuclear antibody screen test performed using the following antigens: dsDNA, Chromatin, Ribosomal P, SS-A 60, SS-A 52, SS-B, Sm, SmRNP, GIN INSPECTOR A, GIN INSPECTOR 68, Scl-70, Francie-1, and Centromere B. Methodology: Multiplex flow immunoassay. Performed By: #### 4 7383-5 ####[facility] LABCLIA [id number] [place] [address] [place] Rheumatoid fact SerPl-aCncon 06-13-2025 Rheumatoid factor Qn [IU]/mL Normal <16 [facility] Comment on above: Order Comment: Speci men Type: BLOOD SPECIMENOrdering Facility: [facility] Address: [address] [place] [address] Performed By: #### 1 1572-5 ####[facility] LABCLIA [id number] [place] [address] [place] XR HAND/WRIST SURVEY [...] No osseous erosion. IMPRESSION: Osteoarthritis as described. Home Service Consultant: PSCB Transcribe Date/Time: Jun 19 2025 8:07P Dictated by : CLIFF PORTER MD This examination was interpreted and the report reviewed and electronically signed by: CLIFF PORTER MD on Jun 19 2025 8:08PM EST [id number] Normal [facility] CNPN Telephone ([facility]) TRIHS HUNT ([id number]) 1945 F Date Time Provider Department 06/01/25 HARJINDER BRASWELL [facility] During your visit today, we recorded the [...] decreased. Please advise patient. SHARMIN Sesay Christy, APRN.CNP 06/02/2025 10:05 AM Signed That is the [...] her concerns. Pt states she will contact [facility] for appt. SUSHIL Yuan Christy, APRN.CNP 06/02/2025 3:03 PM Signed Noted. Ruba Haagen, TRAVEL AGENCY MANAGER.SCREENING TECHNICIAN Allergies As of Date: 06/01/2025 Noted Allergy [...] 02/25/2023 Infection (more content not included)... Normal [facility] CNPNon 05-31-2025 [facility] TRISH [facility] ([id number]) 1945 F Date Time Provider Department 05/31/25 RUBA TRUJILLO 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 Normal [facility] Absolute lymphocyte countOrd ered By: Arthur Gates on 05-30-2025 Lymphocytes Auto (Unsp spec) [#/Vol] 0.52 10*3/uL Low 0.83-4.51 [facility] Absolute neutrophil countOrd ered By: Arthur Gates on 05-30-2025 Neutrophils (Bld) [#/Vol] 4.6 10*3/uL 2.0-7.7 [facility] Anion gap in Serum or Plasma Ordered By: Arthur Gates on 05-30-2025 Anion gap [Moles/Vol] 8 mmol/L 03-30 [facility] Automated lymphocyte count a s percentage of total leukocytesOrdered By: Arthur Gates on 05-30-2025 Lymphocytes/100 WBC Auto (Unsp spec) 8.9 % Low 19-41 [facility] BUN/creatinine ratioOrdered By: Arthur Gates on 05-30-2025 Urea nitrogen/Creatinine [Mass ratio] 32.1 mg/mg High 10-20 [facility] Basophil percentageOrdered B y: Arthur Gates on 05-30-2025 Basophils/100 WBC (Bld) 0.7 % 0- [facility] Bilirubin, totalOrdered By: Arthur Gates on 05-30-2025 Bilirubin [Mass/Vol] 0.35 mg/dL 0.00-1.30 [facility] CBC W/Diff, Automatedon 05-16 Absolute Lymph 0.52 X10 3/uL Low 0.83-4.51 [facility] Comment on above: Performed By: #### L 503.0300, L504.0250, L503.0100 #### [facility] [address] [place], [address] Absolute Neut 4.6 X10 3/uL Normal 2.0-7.7 [facility] Comment on above: Performed By: #### L 503.0300, L504.0250, L503.0100 #### [facility] [address] [place], [address] Basophils/100 WBC (Bld) 0.7 % Normal 0-1 [facility] Comment on above: Performed By: #### L 503.0300, L504.0250, L503.0100 #### [facility] [address] [place], [address] Eosinophils/100 WBC (Bld) 3.9 % Normal 0-5 [facility] Comment on above: Performed By: #### L 503.0300, L504.0250, L503.0100 #### [facility] [address] [place], [address] Erythrocyte distribution width (RBC) [Ratio] 15.0 % High 11.6-14.6 [facility] Comment on above: Performed By: #### L 503.0300, L504.0250, L503.0100 #### [facility] [address] [place], [address] Hematocrit (Bld) [Volume fraction] 40.9 % Normal 37-47 [facility] Comment on above: Performed By: #### L 503.0300, L504.0250, L503.0100 #### [facility] [address] [place], [address] Hemoglobin (Bld) [Mass/Vol] 12.7 g/dL Normal 12.0-15.0 [facility] Comment on above: Performed By: #### L 503.0300, L504.0250, L503.0100 #### [facility] [address] [place], [address] IG% 0.700 Normal 0.0-0.9 [facility] Comment on above: Result Comment: IG% - Immature Granulocytes (promyelocytes, myelocytes and metamyelocytes) > 1% indicates that a LEFT SHIFT is Present. Performed By: #### L 503.0300, L504.0250, L503.0100 #### [facility] [address] [place], [address] Lymphocytes/100 WBC (Bld) 8.9 % Low 19-41 [facility] Comment on above: Performed By: #### L 503.0300, L504.0250, L503.0100 #### [facility] [address] [place], [address] MCH (RBC) [Entitic mass] 30.7 pg Normal 27.0-32.0 [facility] Comment on above: Performed By: #### L 503.0300, L504.0250, L503.0100 #### [facility] [address] [place], [address] MCHC (RBC) [Mass/Vol] 31.1 g/dL Low 32-36 [facility] Comment on above: Performed By: #### L 503.0300, L504.0250, L503.0100 #### [facility] [address] [place], [address] MCV (RBC) [Entitic vol] 98.8 fL Normal 81-99 [facility] Comment on above: Performed By: #### L 503.0300, L504.0250, L503.0100 #### [facility] [address] [place], [address] Monocytes/100 WBC (Bld) 7.0 % Normal 0-10 [facility] Comment on above: Performed By: #### L 503.0300, L504.0250, L503.0100 #### [facility] [address] [place], [address] Neutrophils/100 WBC (Bld) 78.8 % High 47-70 [facility] Comment on above: Performed By: #### L 503.0300, L504.0250, L503.0100 #### [facility] [address] [place], [address] Nucleated RBC (Bld) [#/Vol] 0 10*3/uL Normal 0-5 [facility] Comment on above: Performed By: #### L 503.0300, L504.0250, L503.0100 #### [facility] [address] [place], [address] Platelet mean volume (Bld) [Entitic vol] 10.2 fL Normal 6.2-12.0 [facility] Comment on above: Performed By: #### L 503.0300, L504.0250, L503.0100 #### [facility] [address] [place], [address] Platelets (Bld) [#/Vol] 191 10*3/uL Normal 150-450 [facility] Comment on above: Performed By: #### L 503.0300, L504.0250, L503.0100 #### [facility] [address] [place], [address] RBC (Bld) [#/Vol] 4.14 10*6/uL Low 4.2-5.4 [facility] Comment on above: Performed By: #### L 503.0300, L504.0250, L503.0100 #### [facility] [address] [place], [address] RDW SD 54.4 fl High 35.1-43.9 [facility] Comment on above: Performed By: #### L 503.0300, L504.0250, L503.0100 #### [facility] [address] [place], [address] WBC (Bld) [#/Vol] 5.8 10*3/uL Normal 4.4-11.0 [facility] Comment on above: Performed By: #### L 503.0300, L504.0250, L503.0100 #### [facility] [address] [place], [address] Carbon dioxide, total [Moles /volume] in Central venous bloodOrdered By: Arthur Gates on 05-30-2025 CO2 [Moles/Vol] 26.7 mmol/L 21.0-32.0 [facility] Chloride assayOrdered By: Francie Gates on 05-30-2025 Chloride [Moles/Vol] 105 mmol/L 98-108 [facility] Comprehensive Metabolic Prof ilon 05-30-2025 Albumin [Mass/Vol] 3.4 g/dL Normal 3.4-4.8 [facility] Comment on above: Performed By: #### L 503.0300, L504.0250, L503.0100 #### [facility] [address] [place], [address] Albumin/Globulin [Mass ratio] 1.0 {ratio} Normal 0.9-2.4 [facility] Comment on above: Performed By: #### L 503.0300, L504.0250, L503.0100 #### [facility] [address] [place], [address] ALK PHOS 34 U/L Low 35-104 [facility] Comment on above: Performed By: #### L 503.0300, L504.0250, L503.0100 #### [facility] [address] [place], [address] ALT [Catalytic activity/Vol] U/L Normal <=34 [facility] Comment on above: Performed By: #### L 503.0300, L504.0250, L503.0100 #### [facility] [address] [place], [address] AST [Catalytic activity/Vol] 14 U/L Normal <=31 [facility] Comment on above: Performed By: #### L 503.0300, L504.0250, L503.0100 #### [facility] [address] [place], [address] Bilirubin [Mass/Vol] 0.35 mg/dL Normal 0.00-1.30 [facility] Comment on above: Performed By: #### L 503.0300, L504.0250, L503.0100 #### [facility] [address] [place], [address] BUN/CRE 32.1 RATIO High 10-20 [facility] Comment on above: Performed By: #### L 503.0300, L504.0250, L503.0100 #### [facility] [address] [place], [address] Calcium [Mass/Vol] 9.2 mg/dL Normal 7.6-11.0 [facility] Comment on above: Performed By: #### L 503.0300, L504.0250, L503.0100 #### [facility] [address] [place], [address] Chloride [Moles/Vol] 105 mmol/L Normal 98-108 [facility] Comment on above: Performed By: #### L 503.0300, L504.0250, L503.0100 #### [facility] [address] [place], [address] CO2 [Moles/Vol] 26.7 mmol/L Normal 21.0-32.0 [facility] Comment on above: Performed By: #### L 503.0300, L504.0250, L503.0100 #### [facility] [address] [place], [address] Creatinine [Mass/Vol] 0.84 mg/dL Normal 0.70-1.20 [facility] Comment on above: Performed By: #### L 503.0300, L504.0250, L503.0100 #### [facility] [address] [place], [address] ECRCL 53.73 ml/min Normal 50-250 [facility] Comment on above: Performed By: #### L 503.0300, L504.0250, L503.0100 #### [facility] [address] [place], [address] GAP 8 Normal 5-15 [facility] Comment on above: Performed By: #### L 503.0300, L504.0250, L503.0100 #### [facility] [address] [place], [address] GFR/1.73 sq M.predicted among non-blacks MDRD (S/P/Bld) [Vol rate/Area] 69 mL/min/{1.73_m2} Normal >60 [facility] Comment on above: Result Comment: mL/m in/1.73m2 CKD-EPI Creatinine Equation (2020) Performed By: #### L 503.0300, L504.0250, L503.0100 #### [facility] [address] [place], [address] Globulin (S) [Mass/Vol] 3.5 g/dL Normal 2.2-4.2 [facility] Comment on above: Performed By: #### L 503.0300, L504.0250, L503.0100 #### [facility] [address] [place], [address] Glucose [Mass/Vol] 104 mg/dL High 70-99 [facility] Comment on above: Performed By: #### L 503.0300, L504.0250, L503.0100 #### [facility] [address] [place], [address] Potassium [Moles/Vol] 4.5 mmol/L Normal 3.3-5.1 [facility] Comment on above: Performed By: #### L 503.0300, L504.0250, L503.0100 #### [facility] [address] [place], [address] Sodium [Moles/Vol] 140 mmol/L Normal 133-145 [facility] Comment on above: Performed By: #### L 503.0300, L504.0250, L503.0100 #### [facility] [address] [place], [address] T PROT 6.8 g/dL Normal 5.9-8.4 [facility] Comment on above: Performed By: #### L 503.0300, L504.0250, L503.0100 #### [facility] [address] [place], [address] Urea nitrogen [Mass/Vol] 27 mg/dL High 4-19 [facility] Comment on above: Performed By: #### L 503.0300, L504.0250, L503.0100 #### [facility] [address] [place], [address] Eosinophil percentageOrdered By: Arthur Gates on 05-30-2025 Eosinophils/100 WBC (Bld) 3.9 % 0-5 [facility] Erythrocyte distribution wid th ratioOrdered By: Arthur Gates on 05-30-2025 Erythrocyte distribution width (RBC) [Ratio] 15.0 % High 11.6-14.6 [facility] Erythrocyte distribution wid th standard deviationOrdered By: Arthur Gates on 05-30-2025 Erythrocyte distribution width (RBC) [Ratio] 54.4 fl High 35.1-43.9 [facility] Glomerular filtration rate ( GFR) estimation/1.73 sq m using serum, plasma, or whole bOrdered By: Arthur Gates on 05-30-2025 GFR/1.73 sq M.predicted among non-blacks MDRD (S/P/Bld) [Vol rate/Area] 69 mL/min/{1.73_m2} >60 [facility] Comment on above: mL/min/1.73m2 CKD-EP I Creatinine Equation (2020) Hematocrit Auto (Bld) [Volum e fraction]Ordered By: Arthur Gates on 05-30-2025 Hematocrit (Bld) [Volume fraction] 40.9 % 37-47 [facility] Hemoglobin measurementOrdere d By: Arthur Gates on 05-30-2025 Hemoglobin (Bld) [Mass/Vol] 12.7 g/dL 12.0-15.0 [facility] Immature granulocytes/100 WB C Auto (Bld)Ordered By: Arthur Gates on 05-30-2025 Immature granulocytes/100 WBC (Bld) 0.700 % 0.0-0.9 [facility] Comment on above: IG% - Immature Granu locytes (promyelocytes, myelocytes and metamyelocytes) > 1% indicates that a LEFT SHIFT is Present. LDHon 05-30-2025 LDH 130 U/L Normal 84-246 [facility] Comment on above: Order Comment: 1 Performed By: #### L 503.0300, L504.0250, L503.0100 #### [facility] [address] [place], [place] [address], [address] Laboratory - Chemistry and C hemistry - challengeOrdered By: Arthur Gates on 05-30-2025 AST [Catalytic activity/Vol] 14 U/L <32 [facility] Lactate dehydrogenase (LDH) measurementOrdered By: Arthur Gates on 05-30-2025 LDH [Catalytic activity/Vol] 130 U/L 84-246 [facility] MCV (mean corpuscular volume ) determinationOrdered By: Arthur Gates on 05-30-2025 MCV (RBC) [Entitic vol] 98.8 fL 81-99 [facility] Mean corpuscular hemoglobin (MCH) determinationOrdered By: Arthur Gates on 05-30-2025 MCH (RBC) [Entitic mass] 30.7 pg 27.0-32.0 [facility] Mean corpuscular hemoglobin concentration (MCHC) determinationOrdered By: Arthur Gates on 05-30-2025 MCHC (RBC) [Mass/Vol] 31.1 g/dL Low 32-36 [facility] Mean platelet volume determi nationOrdered By: Arthru Gates on 05-30-2025 Platelet mean volume (Bld) [Entitic vol] 10.2 fL 6.2-12.0 [facility] Monocyte percentageOrdered B y: Arthur Gates on 05-30-2025 Monocytes/100 WBC (Bld) 7.0 % 0-10 [facility] Neutrophil percentageOrdered By: Arthur Yajaira on 05-30-2025 Neutrophils/100 WBC (Bld) 78.8 % High 47-70 [facility] Nucleated red blood cell per centageOrdered By: Arthur Gates on 05-30-2025 Nucleated RBC/100 WBC (Bld) [Ratio] 0 % 0-5 [facility] Oncology Visit Reporton 05-16 Oncology Visit Report [facility] [address] [place] [address] OFFICE VISIT Date of Service: 05/30/25 1453 MR#: [id number] Acct: [id number] Name: TRISH HUNT Rep #: [id number] : 1945 From: Arthur Gates MD Age/Sex: 80/F [place] [facility] [place]: Signed HPI Subjective Date of Service 05/30/25 Chief Complaint F/u for NSCLC. History of Present Illness 80y.o.woman presented with persistent back pain to [facility]. She was found to have a destructive [...] some pain in the back with activity. [facility] Medical History port placement Non-small cell carcinoma [...] ???Confirmed ??? (more content not included)... Normal [facility] Platelet countOrdered By: Francie Gates on 05-30-2025 Platelets (Bld) [#/Vol] 191 10*3/uL 150-450 [facility] Potassium measurement (mass/ volume)Ordered By: Arthur Gates on 05-30-2025 Potassium (Unsp spec) [Mass/Vol] 4.5 mmol/L 3.3-5.1 [facility] RBC Auto (Bld) [#/Vol]Ordere d By: Arthur Gates on 05-30-2025 RBC (Bld) [#/Vol] 4.14 10*6/uL Low 4.2-5.4 [facility] Serum creatinine measurement (mass/volume)Ordered By: Arthur Gates on 05-30-2025 Creatinine [Mass/Vol] 0.84 mg/dL 0.70-1.20 [facility] Serum globulin measurementOr dered By: Arthur Gates on 05-30-2025 Globulin (S) [Mass/Vol] 3.5 g/dL 2.2-4.2 [facility] Serum glucose measurement (m ass/volume)Ordered By: Arthur Gates on 05-30-2025 Glucose [Mass/Vol] 104 mg/dL High 70-99 [facility] Serum or plasma alanine de la cruz otransferase (ALT) measurementOrdered By: Arthur Gates on 05-30-2025 ALT [Catalytic activity/Vol] U/L <35 [facility] Serum or plasma albumin megan urement (mass/volume)Ordered By: Arthur Gates on 05-30-2025 Albumin [Mass/Vol] 3.4 g/dL 3.4-4.8 [facility] Serum or plasma albumin/glob ulin mass ratioOrdered By: Arthur Gates on 05-30-2025 Albumin/Globulin [Mass ratio] 1.0 {ratio} 0.9-2.4 [facility] Serum or plasma alkaline harrison sphatase measurementOrdered By: Arthur Gates on 05-30-2025 ALP [Catalytic activity/Vol] 34 U/L Low 35-104 [facility] Serum or plasma calcium megan urement (mass/volume)Ordered By: Arthur Gates on 05-30-2025 Calcium [Mass/Vol] 9.2 mg/dL 7.6-11.0 [facility] Serum or plasma urea nitroge n measurement (mass/volume)Ordered By: Arthur Gates on 05-30-2025 Urea nitrogen [Mass/Vol] 27 mg/dL High 4-19 [facility] Sodium levelOrdered By: Elder Gates on 05-30-2025 Sodium [Moles/Vol] 140 mmol/L 133-145 [facility] Total proteinOrdered By: Roel minor Gates on 05-30-2025 Protein [Mass/Vol] 6.8 g/dL 5.9-8.4 [facility] White blood cell (WBC) count Ordered By: Arthur Yajaira on 05-30-2025 WBC (Bld) [#/Vol] 5.8 10*3/uL 4.4-11.0 [facility] Bacteria Ur Culton Bacteria identified Cx Nom [...] , Intermediate >32 , Resistant >64 Abnormal [facility] Comment on above: Performed By: #### 6 30-4 ####[facility] LABCLIA [id number] [address] OF [facility] CNOVon 05-23-2025 CNOV Office Visit (KELLYPWS ) TRISH HUNT ([id number]) 1945 F Date Time Provider Department 05/23/25 3:00 PM RUBA [facility]ILL[facility] During your visit today, we recorded the [...] arthritis. - Recently started on meloxicam by [employer] at [facility], with some improvement in pain intensity. [...] edema, skin (more content not included)... Normal [facility] CT ABD/PEL W IVCONon 025 CT ABD/PEL W IVCON * * *Final Report* * * DATE OF EXAM: May 04 2025 3:46PM [facility] 0530 - CT ABD/PEL W IVCON / [...] fracture of T10 . Soft tissues: Unremarkable Baker Pie (topogram) images: No additional findings IMPRESSION: 1. [...] acute findings in the abdomen or pelvis. Home Service Consultant: MINNA Transcribe Date/Time: May 10 2025 11:53A Dictated by : TIMOTHY MANN MD This examination was interpreted and the report reviewed and electronically signed by: TIMOTHY MANN MD on May 10 2025 12:11PM EST [id number] Normal [facility] CT CHEST W IVCONon 5 CT CHEST W IVCON * * *Final Report* * * DATE OF EXAM: May 04 2025 3:46PM [facility] 0539 - CT CHEST W IVCON / [...] fracture of T10 . Soft tissues: Unremarkable Baker Pie (topogram) images: No additional findings IMPRESSION: 1. [...] acute findings in the abdomen or pelvis. Home Service Consultant: PSCB Transcribe Date/Time: May 10 2025 11:53A Dictated by : TIMOTHY MANN MD This examination was interpreted and the report reviewed and electronically signed by: TIMOTHY MANN MD on May 10 2025 12:11PM EST [id number] Normal [facility] CNPJudith 05-02-2025 MARLENAN Telephone (AGATA) TRISH HUNT ([id number]) 1945 F Date Time Provider Department 05/02/25 TIMOTHY YARBROUGH During your visit today, we recorded the following information about you: Emma Whitehead, NEREIDA 05/02/2025 4:37 PM Signed Pt would like [...] ca*12/04/2018 Localized enlarged lymph nodes [R59.0] 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) use of oral hypoglycemic dr*12/04/2018 Lung [...] Status:Closed by MELLISA ARAYA on 05/03/25 Normal [facility] Hemoccult Stl Ql IAon 2024 Lower GI hemoglobin IA Ql (Stl) Negative Normal Negative [facility] Comment on above: Order Comment: Speci men Type: STOOL SPECIMENOrdering Facility: [facility] Address: [address] [place] [address] [place] [address] Performed By: #### 2 9771-3 ####[facility] LABCLIA [id number] [place] [address] [place] Urinalysis complete panel (U )on 04-26-2025 Bacteria uL uL High - 941 uL [facility] Bilirubin Ql (U) Negative Negative [facility] Clarity (Unsp spec) Cloudy Abnormal Clear [facility] Color (U) Dark Yellow Abnormal Yellow [facility] Epithelial cells LM.HPF (Urine sed) [#/Area] Few /[facility]PF [facility] Epithelial cells LM.HPF (Urine sed) [#/Area] Moderate Abnormal None Seen /HPF [facility] Glucose Test strip (U) [Mass/Vol] Negative Negative [facility] Hemoglobin Ql (U) Trace Abnormal Negative [facility] Hyaline casts (Urine sed) [#/Area] 4-10 /LPF Abnormal 0 /LPF [facility] Interpretation and review of laboratory results Abnormal [facility] Ketones Ql (U) Negative Negative [facility] Leukocyte esterase Test strip Ql (U) 2+ Abnormal Negative [facility] Nitrite Ql (U) Positive Abnormal Negative [facility] pH (U) 6 [pH] NINF - 8.5 [facility] Protein (U) [Mass/Vol] 2+ Abnormal Negative [facility] RBC LM.HPF (Urine sed) [#/Area] 0-2 /HPF 0-2 /HPF [facility] Specific gravity (U) [Rel density] 1.028 1.005 - 1.030 [facility] Urobilinogen Ql (U) 0.2 EU/dL 0.2-1.0 EU/dL [facility] WBC LM.HPF (Urine sed) [#/Area] /[HPF] Abnormal 0-5 /HPF [facility] Result rechecked This test was developed and its performance characteristics determined by [facility]'s [facility] Pathology and Laboratory Medicine [place] ([facility]). It has not been cleared or approved by the FDA. -[facility] is regulated under CLIA as qualified to perform high-complexity testing. This test is used for clinical purposes. It should not be regarded as investigational or for research. [facility] C-REACTIVE PROTEINon 025 CRP [Mass/Vol] 1 mg/dL High NINF - 0.9 mg/dL [facility] CNOVon 04-25-2025 CNOV Office Visit (FAMPWS ) TRISH HUNT ([id number]) 1945 F Date Time Provider Department 04/25/25 2:20 PM [facility] During your visit today, we recorded the [...] old female who presents today with: Trish Min Marilee is an 79-year-old female with a history [...] line specif (more content not included)... Normal [facility] CRP SerPl-mCncon 04-25-2025 CRP [Mass/Vol] 1.0 mg/dL High <0.9 [facility] Comment on above: Order Comment: Speci men Type: BLOOD SPECIMENOrdering Facility: [facility] Address: [address] [place] [address] Performed By: #### 2 4323-8, 3016-3, 1988-, 3024-7 ####[facility] LABCLIA [id number] [place] [address] [place] Comprehensive metabolic 2000 panelon 04-25-2025 Albumin [Mass/Vol] 3.8 g/dL Low 3.9 - 4.9 g/dL [facility] ALP [Catalytic activity/Vol] 39 U/L 34 - 123 U/L [facility] ALT [Catalytic activity/Vol] 7 U/L 7 - 38 U/L [facility] Anion gap [Moles/Vol] 9 mmol/L 8 - 15 mmol/L [facility] AST [Catalytic activity/Vol] 16 U/L 13 - 35 U/L [facility] [facility] Bilirubin [Mass/Vol] 0.3 mg/dL 0.2 - 1 .3 mg/dL [facility] Calcium [Mass/Vol] 9.2 mg/dL 8.5 - 10. 2 mg/dL [facility] Chloride [Moles/Vol] 104 mmol/L 98 - 10 7 mmol/L [facility] CO2 [Moles/Vol] 28 mmol/L 22 - 30 mmol/L [facility] Creatinine [Mass/Vol] 0.84 mg/dL 0.58 - 0.96 mg/dL [facility] GFR/1.73 sq M.predicted among non-blacks MDRD (S/P/Bld) [Vol rate/Area] 70 mL/min/{1.73_m2} - PINF [facility] Comment on above: Estimated Glomerular [...] 108 mg/dL High 74 - 99 mg/dL [facility] Comment on above: The [place] Di[employer] Association (ADA) provides guidance for [...] Standards of Medical Care in Diabetes 2016, [place] [employer]. Diabetes Care. 2016.39(Suppl 1). Potassium [Moles/Vol] 4.3 mmol/L 3.7 - 5.1 mmol/L [facility] Protein [Mass/Vol] 7.5 g/dL 6.3 - 8.0 g/dL [facility] Sodium [Moles/Vol] 141 mmol/L 136 - 144 mmol/L [facility] Urea nitrogen [Mass/Vol] 21 mg/dL 7 - 21 mg/dL [facility] Albumin [Mass/Vol] 3.8 g/dL Low 3.9-4.9 [facility] Comment on above: Order Comment: Speci men Type: BLOOD SPECIMENOrdering Facility: [facility] Address: [address] [place] [address] Performed By: #### 2 4323-8, 3016-01, 1988-03, 3024-05 ####[facility] LABCLIA [id number] [address] [address] [place] ALP [Catalytic activity/Vol] 39 U/L Normal 34-123 [facility] Comment on above: Order Comment: Speci men Type: BLOOD SPECIMENOrdering Facility: [facility] Address: [address] [place] [address] Performed By: #### 2 432-8, 3016-01, 1988-03, 3024-05 ####[facility] LABIA [id number] [place] [id number] [place] ALT [Catalytic activity/Vol] 7 U/L Normal 7-38 [facility] Comment on above: Order Comment: Speci men Type: BLOOD SPECIMENOrdering Facility: [facility] Address: [address] [place] [address] Performed By: #### 2 432-8, 3016-01, 1988-03, 3024-05 ####[facility] LABIA [id number] [place] [id number] [place] Anion gap [Moles/Vol] 9 mmol/L Normal 8-15 [facility] Comment on above: Order Comment: Speci men Type: BLOOD SPECIMENOrdering Facility: [facility] Address: [address] [place] [address] Performed By: #### 2 432-8, 3016-01, 1988-03, 3024-05 ####[facility] LABIA [id number] [address] [address] [place] AST [Catalytic activity/Vol] 16 U/L Normal 13-35 [facility] Comment on above: Order Comment: Speci men Type: BLOOD SPECIMENOrdering Facility: [facility] Address: [address] [place] [address] Performed By: #### 2 4323-8, 3016-01, 1988-03, 3024-05 ####[facility] LABCLIA [id number] [address] [address] [place] Bilirubin [Mass/Vol] 0.3 mg/dL Normal 0.2-1.3 [facility] Comment on above: Order Comment: Speci men Type: BLOOD SPECIMENOrdering Facility: [facility] Address: [address] [place], [place] [address] Performed By: #### 2 432-8, 3016-01, 1988-03, 3024-05 ####[facility] LABCLIA [id number] [address] [address] [place] Calcium [Mass/Vol] 9.2 mg/dL Normal 8.5-10.2 [facility] Comment on above: Order Comment: Speci men Type: BLOOD SPECIMENOrdering Facility: [facility] Address: [address] [place], [place] [address] Performed By: #### 2 432-8, 3016-01, 1988-03, 3024-05 ####[facility] LABIA [id number] [place] [id number] [place] Chloride [Moles/Vol] 104 mmol/L Normal 98-107 [facility] Comment on above: Order Comment: Speci men Type: BLOOD SPECIMENOrdering Facility: [facility] Address: [address] [place] [address] Performed By: #### 2 432-8, 3016-01, 1988-03, 3024-05 ####[facility] LABIA [id number] [address] [address] [place] CO2 [Moles/Vol] 28 mmol/L Normal 22-30 [facility] Comment on above: Order Comment: Speci men Type: BLOOD SPECIMENOrdering Facility: [facility] Address: [address] [place], [place] [address] Performed By: #### 2 4323-8, 3016-01, 1988-03, 3024-05 ####[facility] LABCLIA [id number] [address] [address] [place] Creatinine [Mass/Vol] 0.84 mg/dL Normal 0.58-0.96 [facility] Comment on above: Order Comment: Robert weber Type: BLOOD SPECIMENOrdering Facility: [facility] Address: [address] [place], [place] [address] Performed By: #### 2 4323-8, 3016-01, 1988-03, 3024-05 ####[facility] [id number] [address] [address] [place] Creatinine and Glomerular filtration rate.predicted panel (S/P/Bld) 70 mL/min/1.73m??? Normal >=60 [facility] Comment on above: Order Comment: Robert weber Type: BLOOD SPECIMENOrdering Facility: [facility] Address: [address] [place] [address] Result Comment: Faye mated Glomerular Filtration Rate [...] By: #### 2 4323-8, 3016-01, 1988-03, 3024-05 ####[facility] LABIA [id number] [address] [address] [place] Glucose [Mass/Vol] 108 mg/dL High 74-99 [facility] Comment on above: Order Comment: Robert weber Type: BLOOD SPECIMENOrdering Facility: [facility] Address: [address] [place] [id number] Result Comment: The [place] Diabetes Association (ADA) provides guidance for cutoff [...] Standards of Medical Care in Diabetes 2016, [place] [employer]. Diabetes Care. 2016.39(Suppl 1). Performed By: #### 2 4323-8, 3016-01, 1988-03, 3024-05 ####[facility] LABIA [id number] [address] [address] [place] Potassium [Moles/Vol] 4.3 mmol/L Normal 3.7-5.1 [facility] Comment on above: Order Comment: Speci men Type: BLOOD SPECIMENOrdering Facility: [facility] Address: [address] [place], [place] [address] Performed By: #### 2 432-8, 3016-01, 1988-03, 3024-05 ####[facility] [id number] [place] [address] [place] Protein [Mass/Vol] 7.5 g/dL Normal 6.3-8.0 [facility] Comment on above: Order Comment: Alexandriai tia Type: BLOOD SPECIMENOrdering Facility: [facility] Address: [address] [place], [place] [address] Performed By: #### 2 432-8, 3016-01, 1988-03, 3024-05 ####[facility] [id number] [address] [address] [place] Sodium [Moles/Vol] 141 mmol/L Normal 136-144 [facility] Comment on above: Order Comment: Speci men Type: BLOOD SPECIMENOrdering Facility: [facility] Address: [address] [place] [address] Performed By: #### 2 4323-8, 3016-01, 7 ####[facility] LABIA [id number] [address] [address] [place] Urea nitrogen [Mass/Vol] 21 mg/dL Normal 7-21 [facility] Comment on above: Order Comment: Speci men Type: BLOOD SPECIMENOrdering Facility: [facility] Address: [address] [place], [place] [address] Performed By: #### 2 4323-8, 3016-01, 1988-03, 3024-05 ####[facility] LABCLIA [id number] [address] [address] [place] No Panel Informationon 04-25 Interpretation and review of laboratory results Normal [facility] Interpretation and review of laboratory results Abnormal [facility] T4 FREE/FREE THYROXINEon Free T4 [Mass/Vol] 1.3 ng/dL 0.9 - 1.7 ng/dL [facility] T4 Free SerPl-mCncon 025 Free T4 [Mass/Vol] 1.3 ng/dL Normal 0.9-1.7 [facility] Comment on above: Order Comment: Speci men Type: BLOOD SPECIMENOrdering Facility: [facility] Address: [address] [place], [place] [address] Performed By: #### 2 4323-8, 3016-01, 1988-03, 3024-05 ####[facility] LABIA [id number] [address] [address] [place] THYROID STIMULATING HORMONEo n 04-25-2025 TSH Qn 3.54 m[IU]/L [facility] TSH SerPl-aCncon 04-25-2025 TSH Qn 3.540 m[IU]/L Normal 0.270-4.20 0 [facility] Comment on above: Order Comment: Speci men Type: BLOOD SPECIMENOrdering Facility: [facility] Address: [address] [place] [address] Performed By: #### 2 4323-8, 3016-3, 1988-5, 3024-7 ####[facility] LABCLIA [id number] [address] [place] [address] [place] Urinalysis complete panel (U )on 04-25-2025 BACTERIA UL >9821 High Negative [facility] Comment on above: Order Comment: Speci men Type: URINE SPECIMENOrdering Facility: [facility] Address: [address] [place] [address] Performed By: #### 2 4356-8 ####[facility] LABCLIA [id number] [address] [place] [address] [place] Bilirubin Ql (U) Negative Normal Negative [facility] Comment on above: Order Comment: Speci men Type: URINE SPECIMENOrdering Facility: [facility] Address: [address] [place] [address] Performed By: #### 2 4356-8 ####[facility] LABCLIA [id number] [address] [place] [address] [place] Clarity (Unsp spec) Cloudy Abnormal Clear [facility] Comment on above: Order Comment: Speci men Type: URINE SPECIMENOrdering Facility: [facility] Address: [address] [place] [address] Performed By: #### 2 4356-8 ####[facility] LABCLIA [id number] [address] [place] [address] [place] Color (U) Dark Yellow Abnormal Yellow [facility] Comment on above: Order Comment: Speci men Type: URINE SPECIMENOrdering Facility: [facility] Address: [address] [place], [place] [address] Performed By: #### 2 4356-8 ####[facility] LABCLIA [id number] [address] [place] [address] [place] Epithelial cells LM.HPF (Urine sed) [#/Area] Few Normal [facility] Comment on above: Order Comment: Speci men Type: URINE SPECIMENOrdering Facility: [facility] Address: [address] [place] [address] Result Comment: Mode rate Performed By: #### 2 4356-8 ####[facility] LABCLIA [id number] [address] [place] [address] [place] Glucose Test strip (U) [Mass/Vol] Negative Normal Negative [facility] Comment on above: Order Comment: Speci men Type: URINE SPECIMENOrdering Facility: [facility] Address: [address] [place] [address] Performed By: #### 2 4356-8 ####[facility] LABCLIA [id number] [address], [facility]95 [place] Hemoglobin Ql (U) Trace Abnormal Negative [facility] Comment on above: Order Comment: Speci men Type: URINE SPECIMENOrdering Facility: [facility] Address: [address] [place] [address] Performed By: #### 2 4356-8 ####[facility] LABCLIA [id number] [address], [facility]95 [place] Hyaline casts (Urine sed) [#/Area] 4-10 /LPF Abnormal 0 /LPF [facility] Comment on above: Order Comment: Speci men Type: URINE SPECIMENOrdering Facility: [facility] Address: [address] [place] [address] Performed By: #### 2 4356-8 ####[facility] LABCLIA [id number] [facility] [address] [place] [address] [place] Ketones Ql (U) Negative Normal Negative [facility] Comment on above: Order Comment: Speci men Type: URINE SPECIMENOrdering Facility: [facility] Address: [address] [place] [address] Performed By: #### 2 4356-8 ####[facility] LABCLIA [id number] [address] [place] [address] [place] Leukocyte esterase Test strip Ql (U) 2+ Abnormal Negative [facility] Comment on above: Order Comment: Speci men Type: URINE SPECIMENOrdering Facility: [facility] Address: [address] [place] [address] Performed By: #### 2 4356-8 ####[facility] LABCLIA [id number] [place] [address] [place] Nitrite Ql (U) Positive Abnormal Negative [facility] Comment on above: Order Comment: Speci men Type: URINE SPECIMENOrdering Facility: [facility] Address: [address] [place] [address] Performed By: #### 2 4356-8 ####[facility] LABCLIA [id number] [place] [address] [place] pH (U) 6.0 [pH] Normal <8.5 [facility] Comment on above: Order Comment: Speci men Type: URINE SPECIMENOrdering Facility: [facility] Address: [address] [place] [address] Performed By: #### 2 4356-8 ####[facility] LABCLIA [id number] [place] [address] [place] Protein (U) [Mass/Vol] 2+ Abnormal Negative Cl [facility] Comment on above: Order Comment: Speci men Type: URINE SPECIMENOrdering Facility: [facility] Address: [address] [place] [address] Performed By: #### 2 4356-8 ####[facility] LABCLIA [id number] [place] [id number] [place] RBC LM.HPF (Urine sed) [#/Area] 0-2 /HPF Normal 0-2 /HPF [facility] Comment on above: Order Comment: Speci men Type: URINE SPECIMENOrdering Facility: [facility] Address: [address] [place] [address] Performed By: #### 2 4356-8 ####[facility] LABIA [id number] [place] [address] [place] Specific gravity (U) [Rel density] 1.028 Normal 1.005-1.03 0 [facility] Comment on above: Order Comment: Speci men Type: URINE SPECIMENOrdering Facility: [facility] Address: [address] [place] [address] Performed By: #### 2 4356-8 ####[facility] [id number] [place] [address] [place] Urobilinogen Ql (U) 0.2 EU/dL Normal 0.2-1.0 EU/dL [facility] Comment on above: Order Comment: Speci men Type: URINE SPECIMENOrdering Facility: [facility] Address: [address] [place] [address] Performed By: #### 2 4356-8 ####[facility] [id number] [place] [address] [place] WBC LM.HPF (Urine sed) [#/Area] /[HPF] Abnormal 0-5 /HPF [facility] Comment on above: Order Comment: Speci men Type: URINE SPECIMENOrdering Facility: [facility] Address: [address] [place] [address] Performed By: #### 2 4356-8 ####[facility] [id number] [place] [address] [place] CBC W Auto Differential pane l (Bld)on 04-07-2025 Basophils (Bld) [#/Vol] 0.04 10*3/uL Normal <0.11 [facility] Comment on above: Order Comment: Speci men Type: BLOOD SPECIMENOrdering Facility: [facility] Address: [address] [place] [address] Performed By: #### 5 7021-8 ####[facility] [id number] [place] [address] [place] Basophils/100 WBC (Bld) 0.6 % Normal [facility] Comment on above: Order Comment: Speci men Type: BLOOD SPECIMENOrdering Facility: [facility] Address: [address] [place] [address] Performed By: #### 5 7021-8 ####[facility] [id number] [place] [address] [place] Differential cell count method Nom (Bld) Auto Normal [facility] Comment on above: Order Comment: Speci men Type: BLOOD SPECIMENOrdering Facility: [facility] Address: [address] [place] [address] Performed By: #### 5 7021-8 ####[facility] [id number] [place] [address] [place] Eosinophils (Bld) [#/Vol] 0.20 10*3/uL Normal <0.46 [facility] Comment on above: Order Comment: Speci men Type: BLOOD SPECIMENOrdering Facility: [facility] Address: [address] [place] [address] Performed By: #### 5 7021-8 ####[facility] [id number] [place] [address] [place] Eosinophils/100 WBC (Bld) 3.1 % Normal [facility] Comment on above: Order Comment: Speci men Type: BLOOD SPECIMENOrdering Facility: [facility] Address: [address] [place] [address] Performed By: #### 5 7021-8 ####[facility] [id number] [place] [address] [place] Erythrocyte distribution width (RBC) [Ratio] 13.9 % Normal 11.5-15.0 [facility] Comment on above: Order Comment: Speci men Type: BLOOD SPECIMENOrdering Facility: [facility] Address: [address] [place] [address] Performed By: #### 5 7021-8 ####[facility] [id number] [place] [address] [place] Hematocrit (Bld) [Volume fraction] 42.5 % Normal 36.0-46.0 [facility] Comment on above: Order Comment: Speci men Type: BLOOD SPECIMENOrdering Facility: [facility] Address: [address] [place] [address] Performed By: #### 5 7021-8 ####[facility] [id number] [place] [address] [place] Hemoglobin (Bld) [Mass/Vol] 13.4 g/dL Normal 11.5-15.5 [facility] Comment on above: Order Comment: Speci men Type: BLOOD SPECIMENOrdering Facility: [facility] Address: [address] [place] [address] Performed By: #### 5 7021-8 ####[facility] [id number] [place] [address] [place] Immature granulocytes (Bld) [#/Vol] 0.04 10*3/uL Normal <0.10 [facility] Comment on above: Order Comment: Speci men Type: BLOOD SPECIMENOrdering Facility: [facility] Address: [address] [place] [address] Performed By: #### 5 7021-8 ####[facility] [id number] [place] [address] [place] Immature granulocytes/100 WBC (Bld) 0.6 % Normal [facility] Comment on above: Order Comment: Speci men Type: BLOOD SPECIMENOrdering Facility: [facility] Address: [address] [place] [address] Performed By: #### 5 7021-8 ####[facility] [id number] [place] [address] [place] Lymphocytes (Bld) [#/Vol] 0.90 10*3/uL Low 1.00-4.00 [facility] Comment on above: Order Comment: Speci men Type: BLOOD SPECIMENOrdering Facility: [facility] Address: [address] [place] [address] Performed By: #### 5 7021-8 ####[facility] [id number] [place] [address] [place] Lymphocytes/100 WBC (Bld) 14.0 % Normal [facility] Comment on above: Order Comment: Speci men Type: BLOOD SPECIMENOrdering Facility: [facility] Address: [address] [place] [address] Performed By: #### 5 7021-8 ####[facility] [id number] [place] [address] [place] MCH (RBC) [Entitic mass] 30.2 pg Normal 26.0-34.0 [facility] Comment on above: Order Comment: Speci men Type: BLOOD SPECIMENOrdering Facility: [facility] Address: [address] [place] [address] Performed By: #### 5 7021-8 ####[facility] [id number] [place] [address] [place] MCHC (RBC) [Mass/Vol] 31.5 g/dL Normal 30.5-36.0 [facility] Comment on above: Order Comment: Speci men Type: BLOOD SPECIMENOrdering Facility: [facility] Address: [address] [place] [address] Performed By: #### 5 7021-8 ####[facility] [id number] [place] [address] [place] MCV (RBC) [Entitic vol] 95.9 fL Normal 80.0-100.0 [facility] Comment on above: Order Comment: Speci men Type: BLOOD SPECIMENOrdering Facility: [facility] Address: [address] [place] [address] Performed By: #### 5 7021-8 ####[facility] [id number] [place] [address] [place] Monocytes (Bld) [#/Vol] 0.39 10*3/uL Normal <0.87 [facility] Comment on above: Order Comment: Speci men Type: BLOOD SPECIMENOrdering Facility: [facility] Address: [address] [place] [address] Performed By: #### 5 7021-8 ####[facility] [id number] [place] [address] [place] Monocytes/100 WBC (Bld) 6.1 % Normal [facility] Comment on above: Order Comment: Speci men Type: BLOOD SPECIMENOrdering Facility: [facility] Address: [address] [place] [address] Performed By: #### 5 7021-8 ####[facility] [id number] [place] [address] [place] Neutrophils (Bld) [#/Vol] 4.85 10*3/uL Normal 1.45-7.50 [facility] Comment on above: Order Comment: Speci men Type: BLOOD SPECIMENOrdering Facility: [facility] Address: [address] [place] [address] Performed By: #### 5 7021-8 ####[facility] [id number] [place] [address] [place] Neutrophils/100 WBC (Bld) 75.6 % Normal [facility] Comment on above: Order Comment: Speci men Type: BLOOD SPECIMENOrdering Facility: [facility] Address: [address] [place] [address] Performed By: #### 5 7021-8 ####[facility] [id number] [place] [address] [place] Nucleated RBC (Bld) [#/Vol] 10*3/uL Normal <0.01 [facility] Comment on above: Order Comment: Speci men Type: BLOOD SPECIMENOrdering Facility: [facility] Address: [address] [place] [address] Performed By: #### 5 7021-8 ####[facility] [id number] [place] [address] [place] Nucleated RBC/100 WBC (Bld) [Ratio] 0.0 /100 WBC Normal [facility] Comment on above: Order Comment: Speci men Type: BLOOD SPECIMENOrdering Facility: [facility] Address: [address] [place] [address] Performed By: #### 5 7021-8 ####[facility] [id number] [place] [address] [place] Platelet mean volume (Bld) [Entitic vol] 10.1 fL Normal 9.0-12.7 [facility] Comment on above: Order Comment: Speci men Type: BLOOD SPECIMENOrdering Facility: [facility] Address: [address] [place] [address] Performed By: #### 5 7021-8 ####[facility] [id number] [place] [address] [place] Platelets (Bld) [#/Vol] 220 10*3/uL Normal 150-400 [facility] Comment on above: Order Comment: Speci men Type: BLOOD SPECIMENOrdering Facility: [facility] Address: [address] [place] [address] Performed By: #### 5 7021-8 ####[facility]TE[facility]CL[facility] [id number] [place] [address] [place] RBC (Bld) [#/Vol] 4.43 10*6/uL Normal 3.90-5.20 [facility] Comment on above: Order Comment: Speci men Type: BLOOD SPECIMENOrdering Facility: [facility] Address: [address] [place] [address] Performed By: #### 5 7021-8 ####[facility] BAYNCLIA [id number] [place] [address] [place] WBC (Bld) [#/Vol] 6.42 10*3/uL Normal 3.70-11.00 [facility] Comment on above: Order Comment: Speci men Type: BLOOD SPECIMENOrdering Facility: [facility] Address: [address] [place] [address] Performed By: #### 5 7021-8 ####[facility] BAY[facility]CL[facility] [id number] [place] [address] [place] CNOVon 04-07-2025 CNOV Office Visit (OBGYWM ) TRISH HUNT ([id number]) 1945 F Date Time Provider Department 04/07/25 9:40 AM NORA GUERRERO During your visit today, we recorded the following information about you: Blood pressure Weight 122/78 89.8 kg Nora Guerrero MD 04/07/2025 10:29 AM Signed Trish Min Marilee is a 79 year old female who [...] Living2 SAB0 IAB0 Ectopic0 Multiple0 Live Births0 Senior Hr Generalist History LMP: Postmenopausal Age at Menarche: Age at First : Age at Menopause: Senior Hr Generalist History Comments: Sexual Activity: Yes; Male Contraception: [...] SEPTRA (S (more content not included)... Normal [facility] Comprehensive metabolic 2000 panelon 04-07-2025 Albumin [Mass/Vol] 3.6 g/dL Low 3.9-4.9 [facility] Comment on above: Order Comment: Speci men Type: BLOOD SPECIMENOrdering Facility: [facility] Address: [address] [place] [address] Performed By: #### 2 4323-8 ####[facility] MILLTOWNCLIA [id number] [place] [address] [place] ALP [Catalytic activity/Vol] 36 U/L Normal 34-123 [facility] Comment on above: Order Comment: Speci men Type: BLOOD SPECIMENOrdering Facility: [facility] Address: [address] [place] [address] Performed By: #### 2 4323-8 ####[facility] MILLTOWNCLIA [id number] [place] [address] [place] ALT [Catalytic activity/Vol] U/L Low 7-38 [facility] Comment on above: Order Comment: Speci men Type: BLOOD SPECIMENOrdering Facility: [facility] Address: [address] [place] [address] Performed By: #### 2 4323-8 ####[facility] MILLTOWNCLIA [id number] [place] [address] [place] Anion gap [Moles/Vol] 11 mmol/L Normal 8-15 [facility] Comment on above: Order Comment: Speci men Type: BLOOD SPECIMENOrdering Facility: [facility] Address: [address] [place] [address] Performed By: #### 2 4323-8 ####[facility] MILLTOWNCLIA [id number] [place] [address] [place] AST [Catalytic activity/Vol] 11 U/L Low 13-35 [facility] Comment on above: Order Comment: Speci men Type: BLOOD SPECIMENOrdering Facility: [facility] Address: [address] [place] [address] Performed By: #### 2 4323-8 ####[facility] MILLTOWNCLIA [id number] [place] [address] [place] Bilirubin [Mass/Vol] 0.3 mg/dL Normal 0.2-1.3 [facility] Comment on above: Order Comment: Speci men Type: BLOOD SPECIMENOrdering Facility: [facility] Address: [address] [place] [address] Performed By: #### 2 4323-8 ####[facility] MILLTOWNCLIA [id number] [place] [address] [place] Calcium [Mass/Vol] 9.3 mg/dL Normal 8.5-10.2 [facility] Comment on above: Order Comment: Speci men Type: BLOOD SPECIMENOrdering Facility: [facility] Address: [address] [place] [address] Performed By: #### 2 4323-8 ####[facility] MILLWNCLIA [id number] [place] [address] [place] Chloride [Moles/Vol] 105 mmol/L Normal 98-107 [facility] Comment on above: Order Comment: Speci men Type: BLOOD SPECIMENOrdering Facility: [facility] Address: [address] [place] [address] Performed By: #### 2 4323-8 ####[facility] MILLTOWNCLIA [id number] [place] [address] [place] CO2 [Moles/Vol] 25 mmol/L Normal 22-30 [facility] Comment on above: Order Comment: Speci men Type: BLOOD SPECIMENOrdering Facility: [facility] Address: [address] [place] [address] Performed By: #### 2 4323-8 ####[facility] MILLTOWNCLIA [id number] [place] [address] [place] Creatinine [Mass/Vol] 0.76 mg/dL Normal 0.58-0.96 [facility] Comment on above: Order Comment: Robert weber Type: BLOOD SPECIMENOrdering Facility: [facility] Address: [address] [place] [address] Performed By: #### 2 4323-8 ####[facility] [id number] [place] [address] [place] Creatinine and Glomerular filtration rate.predicted panel (S/P/Bld) 79 mL/min/1.73m??? Normal >=60 [facility] Comment on above: Order Comment: Robert weber Type: BLOOD SPECIMENOrdering Facility: [facility] Address: [address] [place] [address] Result Comment: Faye mated Glomerular Filtration Rate [...] actual GFR. Performed By: #### 2 4323-8 ####[facility] [id number] [place] [address] [place] Glucose [Mass/Vol] 99 mg/dL Normal 74-99 [facility] Comment on above: Order Comment: Robert weber Type: BLOOD SPECIMENOrdering Facility: [facility] Address: [address] [place] [address] Result Comment: The [place] Diabetes Association (ADA) provides guidance for cutoff [...] Standards of Medical Care in Diabetes 2016, [place] [employer] Association. Diabetes Care. 2016.39(Suppl 1). Performed By: #### 2 4323-8 ####[facility] MILLTOWNCLIA [id number] [place] [address] [place] Potassium [Moles/Vol] 4.2 mmol/L Normal 3.7-5.1 [facility] Comment on above: Order Comment: Speci men Type: BLOOD SPECIMENOrdering Facility: [facility] Address: [address] [place] [address] Performed By: #### 2 4323-8 ####[facility] MILL[facility]OWNCLIA [id number] [place] [address] [place] Protein [Mass/Vol] 6.9 g/dL Normal 6.3-8.0 [facility] Comment on above: Order Comment: Speci men Type: BLOOD SPECIMENOrdering Facility: [facility] Address: [address] [place] [address] Performed By: #### 2 4323-8 ####[facility] BAY[facility]CLIA [id number] [place] [address] [place] Sodium [Moles/Vol] 141 mmol/L Normal 136-144 [facility] Comment on above: Order Comment: Speci men Type: BLOOD SPECIMENOrdering Facility: [facility] Address: [address] [place] [address] Performed By: #### 2 4323-8 ####[facility]ILL[facility]OWNCLIA [id number] [place] [address] [place] Urea nitrogen [Mass/Vol] 20 mg/dL Normal 7-21 [facility] Comment on above: Order Comment: Speci men Type: BLOOD SPECIMENOrdering Facility: [facility] Address: [address] [place] [address] Performed By: #### 2 4323-8 ####[facility] MILL[facility]OWNCLIA [id number] [place] [address] [place] HbA1c (Bld)on 04-07-2025 Average glucose Estimated from glycated hemoglobin (Bld) [Mass/Vol] 105 mg/dL Normal [facility] Comment on above: Order Comment: Robert weber Type: BLOOD SPECIMENOrdering Facility: [facility] Address: [address] [place] [address] Result Comment: eAG: (Estimated average glucose) is a calculated value from HgbA1c and is business center representative of the average blood glucose level in the last 2-3 month period. Performed By: #### 5 5454-3 ####[facility] [id number] [address] STATES OF [facility] HbA1c (Bld) [Mass fraction] 5.3 % Normal 4.3-5.6 [facility] Comment on above: Order Comment: Robert weber Type: BLOOD SPECIMENOrdering Facility: [facility] Address: [address] [place] [address] Result Comment: [place] Diabetes Association guidelines indicate that patients with HgbA1c in the range 5.7-6.4% are at increased risk for development of diabetes, and intervention by lifestyle modification may be beneficial. HgbA1c greater or equal to 6.5% is considered diagnostic of diabetes. Performed By: #### 5 5454-3 ####[facility] [id number] [place] [address] [place] T4 Free SerPl-mCncon 025 Free T4 [Mass/Vol] 1.1 ng/dL Normal 0.9-1.7 [facility] Comment on above: Order Comment: Robert weber Type: BLOOD SPECIMENOrdering Facility: [facility] Address: [address] [place] [address] Performed By: #### T SHR, 3024-7 ####[facility] [id number] [place] [address] [place] TSH W/REFLEX FT4on 5 TSH Qn 4.700 m[IU]/L High 0.270-4.20 0 [facility] Comment on above: Order Comment: Speci men Type: BLOOD SPECIMENOrdering Facility: [facility] Address: [address] [place] [address] Performed By: #### T [facility], 3024-7 ####[facility] LABCLIA [id number] [place] [address] [place] Alanine aminotransferase (AL T) assayOrdered By: Arthur Gates on 05-26-2024 ALT [Catalytic activity/Vol] 12 U/L Low 13-56 [facility] Albumin to globulin ratioOrd ered By: Arthur Gates on 05-26-2024 Albumin/Globulin [Mass ratio] 0.7 {ratio} Low 0.9-2.4 [facility] Alkaline phosphataseOrdered By: Arthur Gates on 05-26-2024 ALP [Catalytic activity/Vol] 39 U/L Low 45-117 [facility] Bilirubin, totalOrdered By: Arthur Gates on 05-26-2024 Bilirubin [Mass/Vol] 0.40 mg/dL 0.20-1.00 [facility] Comment on above: For patients on eltr ombopag therapy, use of Dimension [place] TBIL is not recommended. Blood urea nitrogen (BUN)/cr eatinine ratioOrdered By: Arthur Gates on 05-26-2024 Urea nitrogen/Creatinine [Mass ratio] 13.9 mg/mg 10-20 [facility] Carbon dioxide measurementOr dered By: Arthur Gates on 05-26-2024 CO2 [Moles/Vol] 27.0 mmol/L 21.0-32.0 [facility] Chloride measurementOrdered By: Arthur Gates on 05-26-2024 Chloride [Moles/Vol] 107 mmol/L 98-107 [facility] Ferritin measurementOrdered By: Arthur Gates on 05-26-2024 Ferritin [Mass/Vol] 42 ng/mL 8-252 [facility] Glomerular filtration rate ( GFR) estimationOrdered By: Arthur Gates on 05-26-2024 GFR/1.73 sq M.predicted among non-blacks MDRD (S/P/Bld) [Vol rate/Area] 56 mL/min/{1.73_m2} Low >60 [facility] Comment on above: Non- GFR Calc Glucose measurementOrdered B y: Arthur Gates on 05-26-2024 Glucose [Mass/Vol] 115 mg/dL High 74-106 [facility] Comment on above: Fasting Glucose resu lt from 100 to 125 mg/dL suggests IMPAIRED HOMEOSTASIS per A.D.A. criteria. Iron measurement (mass/mass) Ordered By: Arthur Gates on 05-26-2024 Iron (Unsp spec) [Mass/Mass] 85 ug/dL 50-170 [facility] Laboratory - Chemistry and C hemistry - challengeOrdered By: Arthur Gates on 05-26-2024 AST [Catalytic activity/Vol] 12 U/L Low 15-37 [facility] Lactate dehydrogenase (LDH) measurementOrdered By: Arthur Gates on 05-26-2024 LDH [Catalytic activity/Vol] 118 U/L 84-246 [facility] Potassium measurementOrdered By: Arthur Gates on 05-26-2024 Potassium [Moles/Vol] 3.6 mmol/L 3.5-5.1 [facility] Serum albumin measurementOrd ered By: Arthur Gates on 05-26-2024 Albumin [Mass/Vol] 3.1 g/dL Low 3.2-5.0 [facility] Serum anion gap measurementO rdered By: Arthur Gates on 05-26-2024 Anion gap [Moles/Vol] 5 mmol/L 5-15 [facility] Serum globulin measurementOr dered By: Arthur Gates on 05-26-2024 Globulin (S) [Mass/Vol] 4.3 g/dL High 2.2-4.2 [facility] Serum or plasma calcium megan urement (mass/volume)Ordered By: Arthur Gaets on 05-26-2024 Calcium [Mass/Vol] 9.4 mg/dL 8.5-10.1 [facility] Serum or plasma creatinine m easurement (mass/volume)Ordered By: Arthur Gates on 05-26-2024 Creatinine [Mass/Vol] 1.01 mg/dL 0.55-1.02 [facility] Comment on above: The validity of the calculated GFR & GFRAA in patients over 70 years has not been determined. Clinical correlation is essential. Serum or plasma iron saturat ion measurement (mass fraction)Ordered By: Arthur Gates on 05-26-2024 Iron saturation [Mass fraction] 33.9 % 15.0-55.0 [facility] Serum or plasma urea nitroge n measurement (mass/volume)Ordered By: Arthur Gates on 05-26-2024 Urea nitrogen [Mass/Vol] 14 mg/dL 7-18 [facility] Sodium levelOrdered By: Elder Gates on 05-26-2024 Sodium [Moles/Vol] 139 mmol/L 136-145 [facility] Total proteinOrdered By: Roel Gates on 05-26-2024 Protein [Mass/Vol] 7.4 g/dL 6.4-8.2 [facility] Absolute lymphocyte countOrd ered By: Max Lau on 03-08-2024 Lymphocytes Auto (Unsp spec) [#/Vol] 0.97 10*3/uL 0.83-4.51 [facility] Automated lymphocyte count a s percentage of total leukocytesOrdered By: Max Lau on 03-08-2024 Lymphocytes/100 WBC Auto (Unsp spec) 20.4 % 19-41 [facility] Basophil percentageOrdered B y: Max Lau on 03-08-2024 Basophils/100 WBC (Bld) 0.6 % 0-1 [facility] Chloride [Moles/Vol] 108 mmol/L 98-107 [facility] Eosinophils/100 WBC (Bld) 5.7 % 0-5 [facility] Glucose [Mass/Vol] 111 mg/dL 74-106 [facility] Comment on above: Fasting Glucose resu lt from 100 to 125 mg/dL suggests IMPAIRED HOMEOSTASIS per A.D.A. criteria. Hemoglobin (Bld) [Mass/Vol] 12.8 g/dL 12.0-15.0 [facility] Monocytes/100 WBC (Bld) 8.2 % 0-10 [facility] Neutrophils (Bld) [#/Vol] 3.1 10*3/uL 2.0-7.7 [facility] Neutrophils/100 WBC (Bld) 64.7 % 47-70 [facility] Potassium [Moles/Vol] 3.9 mmol/L 3.5-5.1 [facility] Sodium [Moles/Vol] 141 mmol/L 136-145 [facility] WBC (Bld) [#/Vol] 4.8 10*3/uL 4.4-11.0 [facility] Determination of erythrocyte mean corpuscular volume (MCV)Ordered By: Max Lau on 03-08-2024 MCV (RBC) [Entitic vol] 95.1 fL 81-99 [facility] Erythrocyte distribution wid th ratioOrdered By: Max Lau on 03-08-2024 Erythrocyte distribution width (RBC) [Ratio] 12.9 % 11.6-14.6 [facility] Erythrocyte distribution wid th standard deviationOrdered By: Max Lau on 03-08-2024 Erythrocyte distribution width (RBC) [Entitic vol] 45.4 fL 35.1-43.9 [facility] Hematocrit Auto (Bld) [Volum e fraction]Ordered By: Max Lau on 03-08-2024 Hematocrit (Bld) [Volume fraction] 40.6 % 37-47 [facility] Immature granulocytes/100 WB C Auto (Bld)Ordered By: Max Lau on 03-08-2024 Immature granulocytes/100 WBC (Bld) 0.400 % 0.0-0.9 [facility] Comment on above: IG% - Immature Granu locytes (promyelocytes, myelocytes and metamyelocytes) > 1% indicates that a LEFT SHIFT is Present. Laboratory - Chemistry and C hemistry - challengeOrdered By: Max Lau on 03-08-2024 CO2 [Moles/Vol] 30.0 mmol/L 21.0-32.0 [facility] Urea nitrogen/Creatinine [Mass ratio] 12.8 mg/mg 10-20 [facility] - Hematology and Cell countsOrdered By: Max Lau on 03-08-2024 MCH (RBC) [Entitic mass] 30.0 pg 27.0-32.0 [facility] MCHC (RBC) [Mass/Vol] 31.5 g/dL 32-36 [facility] Nucleated RBC/100 WBC (Bld) [Ratio] 0 % 0-5 [facility] Platelet mean volume (Bld) [Entitic vol] 10.0 fL 6.2-12.0 [facility] Platelets (Bld) [#/Vol] 234 10*3/uL 150-450 [facility] No Panel InformationOrdered By: Max Lau on 03-08-2024 Estimated Creatinine Clearance Calc 44.60 ml/min [facility] Estimated GFR (MDRD) Amer 62 mL/min >60 [facility] Comment on above: GFR Calc Estimated GFR (MDRD) Non-Af Amer 51 mL/min >60 [facility] Comment on above: Non- GFR Calc RBC Auto (Bld) [#/Vol]Ordere d By: Max Lau on 03-08-2024 RBC (Bld) [#/Vol] 4.27 10*6/uL 4.2-5.4 [facility] Serum or plasma calcium megan urement (mass/volume)Ordered By: Max Lau on 03-08-2024 Calcium [Mass/Vol] 8.5 mg/dL 8.5-10.1 [facility] Serum or plasma creatinine m easurement (mass/volume)Ordered By: Max Lau on 03-08-2024 Creatinine [Mass/Vol] 1.09 mg/dL 0.55-1.02 [facility] Comment on above: The validity of the calculated GFR & GFRAA in patients over 70 years has not been determined. Clinical correlation is essential. Serum or plasma urea nitroge n measurement (mass/volume)Ordered By: Max Lau on 03-08-2024 Urea nitrogen [Mass/Vol] 14 mg/dL 7-18 [facility] Thin prep Papanicolaou smear with manual screeningOrdered By: Max Lau on 03-08-2024 Thin prep Papanicolaou smear with manual screening 3 5-15 [facility] CBC W Auto Differential pane l (Bld)on 02-18-2024 Basophils (Bld) [#/Vol] 0.04 10*3/uL <0.11 k/uL [facility] Basophils/100 WBC (Bld) 0.6 % [facility] Differential cell count method Nom (Bld) Auto [facility] Eosinophils (Bld) [#/Vol] 0.22 10*3/uL <0.46 k/uL [facility] Eosinophils/100 WBC (Bld) 3.5 % [facility] Erythrocyte distribution width (RBC) [Ratio] 13.2 % 11.5 - 15.0 % [facility] Hematocrit (Bld) [Volume fraction] 42.4 % 36.0 - 46.0 % [facility] Hemoglobin (Bld) [Mass/Vol] 13.0 g/dL 11.5 - 15.5 g/dL [facility] Immature granulocytes (Bld) [#/Vol] <0.10 k/uL [facility] Immature granulocytes/100 WBC (Bld) 0.3 % [facility] Lymphocytes (Bld) [#/Vol] 0.96 10*3/uL Low 1.00 - 4.00 k/uL [facility] Lymphocytes/100 WBC (Bld) 15.3 % [facility] MCH (RBC) [Entitic mass] 29.7 pg 26.0 - 34.0 pg [facility] MCHC (RBC) [Mass/Vol] 30.7 g/dL 30.5 - 36.0 g/dL [facility] MCV (RBC) [Entitic vol] 96.8 fL 80.0 - 100.0 fL [facility] Monocytes (Bld) [#/Vol] 0.47 10*3/uL <0.87 k/uL [facility] Monocytes/100 WBC (Bld) 7.5 % [facility] Neutrophils (Bld) [#/Vol] 4.57 10*3/uL 1.45 - 7.50 k/uL [facility] Neutrophils/100 WBC (Bld) 72.8 % [facility] Nucleated RBC (Bld) [#/Vol] <0.01 k/uL [facility] Nucleated RBC/100 WBC (Bld) [Ratio] 0.0 /100 WBC [facility] Platelet mean volume (Bld) [Entitic vol] 10.8 fL 9.0 - 12.7 fL [facility] Platelets (Bld) [#/Vol] 236 10*3/uL 150 - 400 k/uL [facility] RBC (Bld) [#/Vol] 4.38 10*6/uL 3.90 - 5.20 m/uL [facility] WBC (Bld) [#/Vol] 6.28 10*3/uL 3.70 - 11.00 k/uL [facility] Absolute lymphocyte countOrd ered By: Arthur Gates on 05-25-2023 Lymphocytes Auto (Unsp spec) [#/Vol] 0.75 10*3/uL 0.83-4.51 [facility] Basophil percentageOrdered B y: Arthur Gates on 05-25-2023 Basophils/100 WBC (Bld) 0.3 % 0-1 [facility] Bilirubin [Mass/Vol] 0.20 mg/dL 0.20-1.00 [facility] Comment on above: For patients on eltr ombopag therapy, use of Dimension [place] TBIL is not recommended. Chloride [Moles/Vol] 107 mmol/L 98-107 [facility] Eosinophils/100 WBC (Bld) 2.3 % 0-5 [facility] Glucose [Mass/Vol] 113 mg/dL 74-106 [facility] Comment on above: Fasting Glucose resu lt from 100 to 125 mg/dL suggests IMPAIRED HOMEOSTASIS per A.D.A. criteria. LDH [Catalytic activity/Vol] 102 U/L 84-246 [facility] Neutrophils (Bld) [#/Vol] 5.7 10*3/uL 2.0-7.7 [facility] Neutrophils/100 WBC (Bld) 80.2 % 47-70 [facility] Potassium [Moles/Vol] 3.5 mmol/L 3.5-5.1 [facility] Protein [Mass/Vol] 6.2 g/dL 6.4-8.2 [facility] Sodium [Moles/Vol] 137 mmol/L 136-145 [facility] WBC (Bld) [#/Vol] 7.1 10*3/uL 4.4-11.0 [facility] Basophil percentage < 0.9 mg/dL 0.55-1.02 [facility] Blood erythrocytes count (nu mber/volume)Ordered By: Arthur Gates on 05-25-2023 RBC (Bld) [#/Vol] 3.71 10*6/uL 4.2-5.4 [facility] Blood hemoglobin measurement (mass/volume)Ordered By: Arthur Gates on 05-25-2023 Hemoglobin (Bld) [Mass/Vol] 11.0 g/dL 12.0-15.0 [facility] Blood lymphocytes/100 leukoc ytesOrdered By: Arthur Gates on 05-25-2023 Lymphocytes/100 WBC (Bld) 10.6 % 19-41 [facility] Blood monocytes/100 leukocyt esOrdered By: [facility] on 05-25-2023 Monocytes/100 WBC (Bld) 6.3 % 0-10 [facility] Blood platelet mean volumeOr dered By: Arthur Gates on 05-25-2023 Platelet mean volume (Bld) [Entitic vol] 10.3 fL 6.2-12.0 [facility] Determination of erythrocyte mean corpuscular volume (MCV)Ordered By: Arthur Gates on 05-25-2023 MCV (RBC) [Entitic vol] 95.7 fL 81-99 [facility] Hematocrit Auto (Bld) [Volum e fraction]Ordered By: [facility] on 05-25-2023 Hematocrit (Bld) [Volume fraction] 35.5 % 37-47 [facility] Laboratory - Chemistry and C hemistry - challengeOrdered By: [place] Berna on 05-25-2023 ALP [Catalytic activity/Vol] 42 U/L 45-117 [facility] ALT [Catalytic activity/Vol] 9 U/L 13-56 [facility] CO2 [Moles/Vol] 27.0 mmol/L 21.0-32.0 [facility] Globulin (S) [Mass/Vol] 3.7 g/dL 2.2-4.2 [facility] Urea nitrogen/Creatinine [Mass ratio] 18.4 mg/mg 10-20 [facility] - Hematology and Cell countsOrdered By: Arthur Berna on 05-25-2023 Erythrocyte distribution width (RBC) [Entitic vol] 45.6 fL 35.1-43.9 [facility] Erythrocyte distribution width (RBC) [Ratio] 13.0 % 11.6-14.6 [facility] Immature granulocytes/100 WBC (Bld) 0.300 % 0.0-0.9 [facility] Comment on above: IG% - Immature Granu locytes (promyelocytes, myelocytes and metamyelocytes) > 1% indicates that a LEFT SHIFT is Present. MCH (RBC) [Entitic mass] 29.6 pg 27.0-32.0 [facility] Nucleated RBC/100 WBC (Bld) [Ratio] 0 % 0-5 [facility] MCHC Auto (RBC) [Mass/Vol]Or dered By: Arthur Gates on 05-25-2023 MCHC (RBC) [Mass/Vol] 31.0 g/dL 32-36 [facility] No Panel InformationOrdered By: Arthur Gates on 05-25-2023 Estimated GFR (MDRD) Amer 70 mL/min >60 [facility] Comment on above: GFR Calc Estimated GFR (MDRD) Non-Af Amer 58 mL/min >60 [facility] Comment on above: Non- GFR Calc Bedside Estimated GFR (eGFR) > 60.0000 mL/min >60 [facility] Platelets bldOrdered By: Roel Gates on 05-25-2023 Platelets (Bld) [#/Vol] 217 10*3/uL 150-450 [facility] Serum or plasma albumin megan urement (mass/volume)Ordered By: Arthur Gates on 05-25-2023 Albumin [Mass/Vol] 2.5 g/dL 3.2-5.0 [facility] Serum or plasma albumin/glob ulin mass ratioOrdered By: Arthur Gates on 05-25-2023 Albumin/Globulin [Mass ratio] 0.7 {ratio} 0.9-2.4 [facility] Serum or plasma calcium megan urement (mass/volume)Ordered By: Arthur Gates on 05-25-2023 Calcium [Mass/Vol] 8.1 mg/dL 8.5-10.1 [facility] Serum or plasma creatinine m easurement (mass/volume)Ordered By: Arthur Gates on 05-25-2023 Creatinine [Mass/Vol] 0.98 mg/dL 0.55-1.02 [facility] Comment on above: The validity of the calculated GFR & GFRAA in patients over 70 years has not been determined. Clinical correlation is essential. Serum or plasma urea nitroge n measurement (mass/volume)Ordered By: Arthur Gates on 05-25-2023 Urea nitrogen [Mass/Vol] 18 mg/dL 7-18 [facility] Thin prep Papanicolaou smear with manual screeningOrdered By: Arthur Gates on 05-25-2023 Thin prep Papanicolaou smear with manual screening 8 U/L 15-37 [facility] Thin prep Papanicolaou smear with manual screening 3 5-15 [facility] Comprehensive metabolic 2000 panelon 02-26-2023 Albumin [Mass/Vol] 3.8 g/dL Low 3.9 - 4.9 g/dL [facility] ALP [Catalytic activity/Vol] 41 U/L 34 - 123 U/L [facility] ALT [Catalytic activity/Vol] 5 U/L Low 7 - 38 U/L [facility] Anion gap [Moles/Vol] 11 mmol/L 9 - 18 mmol/L [facility] AST [Catalytic activity/Vol] 17 U/L 13 - 35 U/L [facility] Bilirubin [Mass/Vol] 0.3 mg/dL 0.2 - 1 .3 mg/dL [facility] Calcium [Mass/Vol] 9.3 mg/dL 8.5 - 10. 2 mg/dL [facility] Chloride [Moles/Vol] 104 mmol/L 97 - 10 5 mmol/L [facility] CO2 [Moles/Vol] 27 mmol/L 22 - 30 mmol/L [facility] Creatinine [Mass/Vol] 0.96 mg/dL 0.58 - 0.96 mg/dL [facility] Estimated Glomerular Filtration Rate 60 mL/min/1.73m >=60 mL/min/1.7 3m [facility] Glucose [Mass/Vol] 91 mg/dL 74 - 99 mg/dL [facility] Potassium [Moles/Vol] 4.5 mmol/L 3.7 - 5.1 mmol/L [facility] Protein [Mass/Vol] 7.1 g/dL 6.3 - 8.0 g/dL [facility] Sodium [Moles/Vol] 142 mmol/L 136 - 144 mmol/L [facility] Urea nitrogen [Mass/Vol] 17 mg/dL 7 - 21 mg/dL [facility] HbA1c (Bld)on 02-26-2023 Average glucose Estimated from glycated hemoglobin (Bld) [Mass/Vol] 103 mg/dL [facility] HbA1c (Bld) [Mass fraction] 5.2 % 4.3 - 5.6 % [facility] LIPID PANEL, NONFASTINGon 04 -13-2023 Cholesterol [Mass/Vol] 250 mg/dL High <200 mg/dL [facility] HDL Cholesterol, Nonfasting 56 mg/dL >39 mg/dL [facility] LDL Cholesterol, Nonfasting 162 mg/dL High <100 mg/dL [facility] LDL/HDL Ratio, Nonfasting 2.89 mg/dL High <2.54 mg/dL [facility] Non HDL Cholesterol, Nonfasting 194 mg/dL High <130 mg/dL [facility] Total Chol/HDL Ratio, Nonfasting 4.46 mg/dL <5.10 mg/dL [facility] Triglycerides, Nonfasting 160 mg/dL High <150 mg/dL [facility] VLDL Cholesterol, Nonfasting 32 mg/dL High <30 mg/dL [facility] TSH BLDon 02-26-2023 TSH Qn 4.150 m[IU]/L 0.270 - 4.200 mIU/L [facility] CBC W Auto Differential pane l (Bld)on 02-25-2023 Basophils (Bld) [#/Vol] 0.04 10*3/uL <0.11 k/uL [facility] Basophils/100 WBC (Bld) 0.7 % [facility] Differential cell count method Nom (Bld) Auto [facility] Eosinophils (Bld) [#/Vol] 0.29 10*3/uL <0.46 k/uL [facility] Eosinophils/100 WBC (Bld) 5.4 % [facility] Erythrocyte distribution width (RBC) [Ratio] 13.1 % 11.5 - 15.0 % [facility] Hematocrit (Bld) [Volume fraction] 42.0 % 36.0 - 46.0 % [facility] Hemoglobin (Bld) [Mass/Vol] 12.9 g/dL 11.5 - 15.5 g/dL [facility] Immature granulocytes (Bld) [#/Vol] <0.10 k/uL [facility] Immature granulocytes/100 WBC (Bld) 0.4 % [facility] Lymphocytes (Bld) [#/Vol] 0.97 10*3/uL Low 1.00 - 4.00 k/uL [facility] Lymphocytes/100 WBC (Bld) 18.0 % [facility] MCH (RBC) [Entitic mass] 29.7 pg 26.0 - 34.0 pg [facility] MCHC (RBC) [Mass/Vol] 30.7 g/dL 30.5 - 36.0 g/dL [facility] MCV (RBC) [Entitic vol] 96.8 fL 80.0 - 100.0 fL [facility] Monocytes (Bld) [#/Vol] 0.36 10*3/uL <0.87 k/uL [facility] Monocytes/100 WBC (Bld) 6.7 % [facility] Neutrophils (Bld) [#/Vol] 3.70 10*3/uL 1.45 - 7.50 k/uL [facility] Neutrophils/100 WBC (Bld) 68.8 % [facility] Nucleated RBC (Bld) [#/Vol] <0.01 k/uL [facility] Nucleated RBC/100 WBC (Bld) [Ratio] 0.0 /100 WBC [facility] Platelet mean volume (Bld) [Entitic vol] 10.3 fL 9.0 - 12.7 fL [facility] Platelets (Bld) [#/Vol] 267 10*3/uL 150 - 400 k/uL [facility] RBC (Bld) [#/Vol] 4.34 10*6/uL 3.90 - 5.20 m/uL [facility] WBC (Bld) [#/Vol] 5.38 10*3/uL 3.70 - 11.00 k/uL [facility] UA DIP, URINE (POC)on 2022 BILIRUBIN UA (POCT) Negative Negative [facility] CLARITY UA (POCT) Cloudy [facility] COLOR UA (POCT) Yellow [facility] GLUCOSE UA (POCT) Negative Negative mg/dL [facility] HEMOGLOBIN/BLOOD UA (POCT) Small Abnormal Negative [facility] KETONE UA (POCT) Negative Negative mg/dL [facility] LEUKOCYTES UA (POCT) Large Abnormal Negative [facility] NITRITE UA (POCT) Positive Abnormal Negative [facility] PH UA (POCT) 6.0 4.5 - 8.0 [facility] Protein Ql (U) 30 mg/dL Abnormal Negative mg/dL [facility] SPECIFIC GRAVITY UA (POCT) 1.015 1.005 - 1.030 [facility] UROBILINOGEN UA (POCT) 0.2 E.U./dL Risa l E.U./dL [facility] Absolute lymphocyte countOrd ered By: Arthur Gates on 05-29-2022 Lymphocytes Auto (Unsp spec) [#/Vol] 0.93 10*3/uL 0.83-4.51 [facility] Basophil percentageOrdered B y: Arthur Gates on 05-29-2022 Basophils/100 WBC (Bld) 0.5 % 0-1 [facility] Bilirubin [Mass/Vol] 0.20 mg/dL 0.20-1.00 [facility] Comment on above: For patients on eltr ombopag therapy, use of [place] TBIL is not recommended. Chloride [Moles/Vol] 109 mmol/L 98-107 [facility] Eosinophils/100 WBC (Bld) 4.4 % 0-5 [facility] Glucose [Mass/Vol] 102 mg/dL 74-106 [facility] Comment on above: Fasting Glucose resu lt from 100 to 125 mg/dL suggests IMPAIRED HOMEOSTASIS per A.D.A. criteria. Neutrophils (Bld) [#/Vol] 2.7 10*3/uL 2.0-7.7 [facility] Neutrophils/100 WBC (Bld) 63.8 % 47-70 [facility] Potassium [Moles/Vol] 3.8 mmol/L 3.5-5.1 [facility] Protein [Mass/Vol] 6.9 g/dL 6.4-8.2 [facility] Sodium [Moles/Vol] 140 mmol/L 136-145 [facility] WBC (Bld) [#/Vol] 4.3 10*3/uL 4.4-11.0 [facility] Blood erythrocytes count (nu mber/volume)Ordered By: Arthur Gates on 05-29-2022 RBC (Bld) [#/Vol] 4.00 10*6/uL 4.2-5.4 [facility] Blood hemoglobin measurement (mass/volume)Ordered By: Arthur Gates on 05-29-2022 Hemoglobin (Bld) [Mass/Vol] 12.1 g/dL 12.0-15.0 [facility] Blood lymphocytes/100 leukoc ytesOrdered By: Arthur Gates on 05-29-2022 Lymphocytes/100 WBC (Bld) 21.7 % 19-41 [facility] Blood monocytes/100 leukocyt esOrdered By: Arthur Gates on 05-29-2022 Monocytes/100 WBC (Bld) 9.1 % 0-10 [facility] Blood platelet mean volumeOr dered By: Arthur Gates on 05-29-2022 Platelet mean volume (Bld) [Entitic vol] 9.8 fL 6.2-12.0 [facility] Determination of erythrocyte mean corpuscular volume (MCV)Ordered By: Arthur Gates on 05-29-2022 MCV (RBC) [Entitic vol] 94.3 fL 81-99 [facility] Hematocrit Auto (Bld) [Volum e fraction]Ordered By: Arthur Gates on 05-29-2022 Hematocrit (Bld) [Volume fraction] 37.7 % 37-47 [facility] Laboratory - Chemistry and C hemistry - challengeOrdered By: Arthur Gates on 05-29-2022 ALP [Catalytic activity/Vol] 43 U/L 45-117 [facility] ALT [Catalytic activity/Vol] 11 U/L 13-56 [facility] CO2 [Moles/Vol] 29.0 mmol/L 21.0-32.0 [facility] Globulin (S) [Mass/Vol] 3.9 g/dL 2.2-4.2 [facility] Urea nitrogen/Creatinine [Mass ratio] 18.3 mg/mg 10-20 [facility] Laboratory - Hematology and Cell countsOrdered By: Arthur Gates on 05-29-2022 Erythrocyte distribution width (RBC) [Entitic vol] 44.7 fL 35.1-43.9 [facility] Erythrocyte distribution width (RBC) [Ratio] 12.9 % 11.6-14.6 [facility] Immature granulocytes/100 WBC (Bld) 0.500 % 0.0-0.9 [facility] Comment on above: IG% - Immature Granu locytes (promyelocytes, myelocytes and metamyelocytes) > 1% indicates that a LEFT SHIFT is Present. MCH (RBC) [Entitic mass] 30.3 pg 27.0-32.0 [facility] Nucleated RBC/100 WBC (Bld) [Ratio] 0 % 0-5 [facility] MCHC Auto (RBC) [Mass/Vol]Or dered By: Arthur Gates on 05-29-2022 MCHC (RBC) [Mass/Vol] 32.1 g/dL 32-36 [facility] No Panel InformationOrdered By: Arthur Gates on 05-29-2022 Estimated Creatinine Clearance Calc 40.58 ml/min [facility] Estimated GFR (MDRD) Amer 75 mL/min >60 [facility] Comment on above: GFR Calc Estimated GFR (MDRD) Non-Af Amer 62 mL/min >60 [facility] Comment on above: Non- GFR Calc Platelets bldOrdered By: Roel Gates on 05-29-2022 Platelets (Bld) [#/Vol] 233 10*3/uL 150-450 [facility] Serum or plasma albumin megan urement (mass/volume)Ordered By: Arthur Gates on 05-29-2022 Albumin [Mass/Vol] 3.0 g/dL 3.2-5.0 [facility] Serum or plasma albumin/glob ulin mass ratioOrdered By: Arthur Gates on 05-29-2022 Albumin/Globulin [Mass ratio] 0.8 {ratio} 0.9-2.4 [facility] Serum or plasma calcium megan urement (mass/volume)Ordered By: Arthur Gates on 05-29-2022 Calcium [Mass/Vol] 8.7 mg/dL 8.5-10.1 [facility] Serum or plasma creatinine m easurement (mass/volume)Ordered By: Arthur Gates on 05-29-2022 Creatinine [Mass/Vol] 0.93 mg/dL 0.55-1.02 [facility] Comment on above: The validity of the calculated GFR & GFRAA in patients over 70 years has not been determined. Clinical correlation is essential. Serum or plasma urea nitroge n measurement (mass/volume)Ordered By: Arthur Gates on 05-29-2022 Urea nitrogen [Mass/Vol] 17 mg/dL 7-18 [facility] Thin prep Papanicolaou smear with manual screeningOrdered By: Arthur Gates on 05-29-2022 Thin prep Papanicolaou smear with manual screening 13 U/L 15-37 [facility] Thin prep Papanicolaou smear with manual screening 2 5-15 [facility] Thin prep Papanicolaou smear with manual screening 120 U/L 84-246 [facility] Basophil percentageon 2021 Basophil percentage < 0.9 mg/dL 0.55-1.02 [facility] Work Phone: No Panel Informationon 05-26 Bedside Estimated GFR (eGFR) > 60.0000 mL/min >60 [facility] Work Phone: [phone] Absolute lymphocyte counton 11-25-2021 Lymphocytes Auto (Unsp spec) [#/Vol] 0.84 10*3/uL 0.83-4.51 [facility] Work Phone: Basophil percentageon 2021 Basophils/100 WBC (Bld) 0.5 % 0-1 [facility] Work Phone: Bilirubin [Mass/Vol] 0.50 mg/dL 0.20-1.00 [facility] Work Phone: Comment on above: For patients on eltr ombopag therapy, use of [employer] [place] TBIL is not recommended. Chloride [Moles/Vol] 106 mmol/L 98-107 [facility] Work Phone: Eosinophils/100 WBC (Bld) 3.6 % 0-5 [facility] Work Phone: Glucose [Mass/Vol] 100 mg/dL 74-106 [facility] Work Phone: Comment on above: Fasting Glucose resu lt from 100 to 125 mg/dL suggests IMPAIRED HOMEOSTASIS per A.D.A. criteria.Please note revised GLUCOSE reference range effective 2017. Neutrophils (Bld) [#/Vol] 3.1 10*3/uL 2.0-7.7 [facility] Work Phone: Neutrophils/100 WBC (Bld) 69.2 % 47-70 [facility] Work Phone: Potassium [Moles/Vol] 3.7 mmol/L 3.5-5.1 [facility] Work Phone: Protein [Mass/Vol] 7.3 g/dL 6.4-8.2 [facility] Work Phone: Sodium [Moles/Vol] 140 mmol/L 136-145 [facility] Work Phone: WBC (Bld) [#/Vol] 4.4 10*3/uL 4.4-11.0 [facility] Work Phone: Blood erythrocytes count (nu mber/volume)on 11-25-2021 RBC (Bld) [#/Vol] 4.34 10*6/uL 4.2-5.4 [facility] Work Phone: Blood hemoglobin measurement (mass/volume)on 11-25-2021 Hemoglobin (Bld) [Mass/Vol] 12.9 g/dL 12.0-15.0 [facility] Work Phone: Blood lymphocytes/100 leukoc yteson 11-25-2021 Lymphocytes/100 WBC (Bld) 19.0 % 19-41 [facility] Work Phone: Blood monocytes/100 leukocyt eson 11-25-2021 Monocytes/100 WBC (Bld) 7.5 % 0-10 [facility] Work Phone: Blood platelet mean volumeon 11-25-2021 Platelet mean volume (Bld) [Entitic vol] 9.5 fL 6.2-12.0 [facility] Work Phone: Determination of erythrocyte mean corpuscular volume (MCV)on 11-25-2021 MCV (RBC) [Entitic vol] 92.4 fL 81-99 [facility] Work Phone: Hematocrit Auto (Bld) [Volum e fraction]on 11-25-2021 Hematocrit (Bld) [Volume fraction] 40.1 % 37-47 [facility] Work Phone: Laboratory - Chemistry and C hemistry - challengeon 11-25-2021 ALP [Catalytic activity/Vol] 40 U/L 45-117 [facility] Work Phone: ALT [Catalytic activity/Vol] 11 U/L 13-56 [facility] Work Phone: CO2 [Moles/Vol] 29.0 mmol/L 21.0-32.0 [facility] Work Phone: Globulin (S) [Mass/Vol] 4.4 g/dL 2.2-4.2 [facility] Work Phone: Urea nitrogen/Creatinine [Mass ratio] 9.9 mg/mg 10-20 [facility] Work Phone: Laboratory - Hematology and Cell countson 11-25-2021 Erythrocyte distribution width (RBC) [Entitic vol] 43.8 fL 35.1-43.9 [facility] Work Phone: Erythrocyte distribution width (RBC) [Ratio] 13.0 % 11.6-14.6 [facility] Work Phone: Immature granulocytes/100 WBC (Bld) 0.200 % 0.0-0.9 [facility] Work Phone: Comment on above: IG% - Immature Granu locytes (promyelocytes, myelocytes and metamyelocytes) > 1% indicates that a LEFT SHIFT is Present. MCH (RBC) [Entitic mass] 29.7 pg 27.0-32.0 [facility] Work Phone: Nucleated RBC/100 WBC (Bld) [Ratio] 0 % 0-5 [facility] Work Phone: MCHC Auto (RBC) [Mass/Vol]on 11-25-2021 MCHC (RBC) [Mass/Vol] 32.2 g/dL 32-36 [facility] Work Phone: No Panel Informationon 11-25 Estimated Creatinine Clearance Calc 42.62 ml/min [facility] Work Phone: Estimated GFR (MDRD) Amer 77 mL/min >60 [facility] Work Phone: Comment on above: GFR Calc Estimated GFR (MDRD) Non-Af Amer 64 mL/min >60 [facility] Work Phone: Comment on above: Non- GFR Calc Platelets bldon 11-25-2021 Platelets (Bld) [#/Vol] 269 10*3/uL 150-450 [facility] Work Phone: Serum or plasma albumin megan urement (mass/volume)on 11-25-2021 Albumin [Mass/Vol] 2.9 g/dL 3.2-5.0 [facility] Work Phone: Serum or plasma albumin/glob ulin mass ratioon 11-25-2021 Albumin/Globulin [Mass ratio] 0.7 {ratio} 0.9-2.4 [facility] Work Phone: Serum or plasma calcium megan urement (mass/volume)on 11-25-2021 Calcium [Mass/Vol] 9.0 mg/dL 8.5-10.1 [facility] Work Phone: Serum or plasma creatinine m easurement (mass/volume)on 11-25-2021 Creatinine [Mass/Vol] 0.90 mg/dL 0.55-1.02 [facility] Work Phone: Comment on above: The validity of the calculated GFR & GFRAA in patients over 70 years has not been determined. Clinical correlation is essential. Serum or plasma urea nitroge n measurement (mass/volume)on 11-25-2021 Urea nitrogen [Mass/Vol] 9 mg/dL 7-18 [facility] Work Phone: Thin prep Papanicolaou smear with manual screeningon 11-25-2021 Thin prep Papanicolaou smear with manual screening 13 U/L 15-37 [facility] Work Phone: Thin prep Papanicolaou smear with manual screening 5 5-15 [facility] Work Phone: Thin prep Papanicolaou smear with manual screening 116 U/L 84-246 [facility] Work Phone: No Panel Informationon 05-01 Thyroid Stimulating Hormone (TSH) 1.76 uIU/mL 0.358-3.74 [facility] Whole blood hemoglobin A1c/t otal hemoglobin ratio (mass fraction)on 05-01-2021 HbA1c (Bld) [Mass fraction] 5.3 % 3.8-5.6 [facility] Comment on above: Normal < 5.7 % [...] time, completed 4 cycles/treatments, being done in [facility]. She tolerated chemotherapy well. Incision is [...] Vital Signs Recorded: 23Nov2019 02:21PM Heart Rate96 [id number] Uckkpnam589 Gqahlikdk74 Uibpqf855 lb BMI Cjjktttutw71.9 BSA Calculated2.02 Physical Exam Constitutional - General [...] Pain in back, Peripheral neuropathy; Ordered By: Huber Tamayo Performed: Due: 21Feb2020 Provider Impressions Mrs. [...] and imaging at a Cancer Center in [facility]. Recommend pain management consult for T10 [...] issues arise. Signatures Electronically signed by : Huber Tamayo MD; Nov 27 2019 7:46PM EST (Author) Normal [facility] INR in Blood by Coagulation assayon 11-21-2019 INR Coag (Bld) [Relative time] 1.1 {INR} [facility] Laboratory - Chemistry and C hemistry - challengeon 11-21-2019 Magnesium [Mass/Vol] 1.9 mg/dL 1.6-2.6 [facility] Laboratory - Coagulationon 0 11-21-2019 aPTT Coag (Bld) [Time] 26.8 s 24.1-36.2 [facility] PT Coag (PPP) [Time] 14.0 s 11.7-14.9 [facility] No Panel Informationon 11-07 Differential Comment SCANNED [facility] Reactive Lymphocytes 1+ [facility] Basophil percentageon 2018 Basophil percentage 2.7 mg/dL 2.5-4.9 [facility] Iron measurement (mass/mass) on 10-31-2019 Iron (Unsp spec) [Mass/Mass] 63 ug/dL 50-170 [facility] Laboratory - Chemistry and C hemistry - challengeon 10-31-2019 Cobalamin (Vitamin B12) [Mass/Vol] 538 pg/mL 211-911 [facility] No Panel Informationon 10-31 Folate > 100.00 ng/mL High 3.1-55.4 [facility] Total Iron Binding Capacity 228 ug/dL 250-450 [facility] Serum or plasma ferritin barbie surement (mass/volume)on 10-31-2019 Ferritin [Mass/Vol] 173 ng/mL 8-252 [facility] Serum or plasma iron saturat ion measurement (mass fraction)on 10-31-2019 Iron saturation [Mass fraction] 27.6 % 15.0-55.0 [facility] Hypochromatic red blood cell detectionon 10-24-2019 Hypochromia Ql (Bld) 1+ [facility] Laboratory - Hematology and Cell countson 10-24-2019 Anisocytosis Ql (Bld) 2+ [facility] Macrocytes detectionon 10-24 Macrocytes Ql (Bld) 1+ [facility] Thin prep Papanicolaou smear with manual screeningon 10-24-2019 Thin prep Papanicolaou smear with manual screening 1+ [facility] Review by pathologiston Pathologist review Mohan (Unsp spec) [Interp] Reviewed [facility] Comment on above: Previous reported re sult: Regina manriquez Edited by: LEELEE on 10/18/19:1155Leukopenia, neutropenia and Macrocytic anemia.Clinical correlation necessary.Marky Briggs M.D. 10/18/19 AMENDED REPORT 10/18/19 1155 PATH REV previously reported as: Regina manriquez No Panel Informationon 10-03 Atypical Lymphocytes 1+ % [facility] Blood platelet adequacy dete ction by light microscopyon 09-26-2019 Platelets LM Ql (Bld) ADEQUATE ADEQ [facility] Blood platelet morphology de termination (nominal result)on 09-26-2019 Platelet morphology finding Nom (Bld) LARGE [facility] RBC morphologyon 09-26-2019 RBC morphology finding Nom (Bld) N CHROM NORMAL NORM C&C [facility] Teardrop cell detectionon Dacrocytes LM Ql (Bld) 1+ [facility] Established Visit (Neurosurg barrie)on 09-05-2019 Established Visit [...] on cycle 2/6 treatments, being done in [facility]. She is tolerating chemotherapy well. Incision [...] Medication codeine Diarrhea; Nausea; Vomiting; Updated By: ySl Clancy; 08/31/2019 2:50:48 PM lisinopril Cough; Recorded [...] BEDTIME. Vitals Vital Signs Recorded: 31Aug2019 02:40PM Pykotbygfez91 Physical Exam Constitutional - General appearance: No [...] affect: Normal. Results/Data Xray Thoracolumbar Spine 2 [id number] 03:40PMHuber Tamayo [Aug 31, 2019 3:35PM Huber Tamayo] Reason: Unspecified for Xray Thoracolumbar Spine 2 View Test NameResultFlagReference Xray Thoracolumbar Spine 2 View(Report) Interpreted by: ASHLEY MONTERO 09/03/19 09:34 Patient Name: TRISH HUNT STUDY: SPINE, THORACOLUMBAR, 2 VIEWS INDICATION: Pain in back. COMPARISON: None ACCESSION NUMBER(S): [id number] ORDERING CLINICIAN: HUBER TAMAYO FINDINGS: T7-L2 posterior fusion across the [...] back Xray Thoracolumbar Spine 2 View; Status:Canceled; Perform:[facility]; Due:[id number];Ordered; For:Pain in back; Ordered By:Huber Tamayo; Reason: Unspecified for Xray Thoracolumbar Spine 2 View Reason: Unspecified for Xray Thoracolumbar Spine 2 View Radiologist to Determine Optimal Study : Y What are the patient's signs and symptoms? : Pain in back Xray Thoracolumbar Spine 2 View; Status:Resulted - Requires Verification,Retrospective Authorization; Done: 31Aug2019 03:40PM Performed:KRYSTIN; Order Comments:PLEASE DO AP AND LATERAL; Due:[id number];Ordered; For:Pain in back; Ordered By:Huber Tamayo; Reason: Unspecified for Xray Thoracolumbar Spine 2 View Radiologist to Determine Optimal Study : Y What are the patient's signs and symptoms? : Pain in back Peripheral neuropathy Start: Gabapentin 600 MG Oral Tablet; TAKE 1 TABLET 3 TIMES DAILY Rx By: Huber Tamayo; Dispense: 30 Days ; #:90 Tablet; Refill: 1;For: Peripheral neuropathy; DAYO = N; Print Rx Unlinked Stop: Gabapentin 300 MG Oral Capsule Dispense: 0 Days ; #: Sufficient Capsule; Refill: 0; DAYO = N; Record; Last Updated By: Huber Tamayo; 08/31/2019 3:32:00 PM Provider Impressions Mrs. [...] prefers to get that done locally in [place]. We do not have any recent records since 11/2018. She is receiving treatment and imaging at a Cancer Center in [facility]. Patient and her POA will have [...] Pain in back. COMPARISON: None ACCESSION NUMBER(S): [id number] ORDERING CLINICIAN: HUBER TAMAYO FINDINGS: T7-L2 posterior fusion across the compression fracture at T10. Hardware satisfactory. Alignment normal. IMPRESSION: Status post thoracic lumbar fusion across the T10 compression fracture with a satisfactory appearance. Electronically signed by: ASHLEY MONTERO MD Normal [facility] Erythrocyte distribution wid th standard deviationon 05-16-2019 Erythrocyte distribution width (RBC) [Entitic vol] 62.2 fL High 35.1-43.9 [facility] Laboratory - Hematology and Cell countson 05-16-2019 Erythrocyte distribution width (RBC) [Ratio] 17.5 % High 11.6-14.6 [facility] Total cell counton 9 Cells counted [employer] (Bld/Tiss) [#] Not Reportable [facility] Basophils/100 WBC Manual cnt (Unsp spec)on 04-18-2019 Basophils/100 WBC (Unsp spec) 1 % 0-1 [facility] Blood polychromasia detectio n by light microscopyon 04-18-2019 Polychromasia LM Ql (Bld) RARE [facility] Eosinophils/100 WBC Auto (Bl d)on 04-18-2019 Eosinophils/100 WBC (Bld) 1 % 0-5 [facility] Laboratory - Hematology and Cell countson 04-18-2019 Band form neutrophils/100 WBC (Bld) 5 % 0-5 [facility] Lymphocytes/100 WBC (Bld) 23 % 19-41 [facility] Metamyelocytes/100 WBC (Bld) 2 % High 0-1 [facility] Monocytes/100 WBC (Bld) 14 % High 0-10 [facility] Neutrophils/100 WBC (Bld) 53 % 47-70 [facility] No Panel Informationon 04-18 Blast Cells % 1 % High 0-0 [facility] Established Visit (Neurosurg barrie)on 02-24-2019 Established Visit [...] TABLET AT BEDTIME. Vitals Vital Signs Recorded: [id number] 02:06PM Heart Rate80 [id number] Height5 ft 4 in Physical Exam Constitutional [...] Mood and affect: Normal. 1 Amended By: Huber Tamayo; Feb 24 2019 9:33 PM ESTResults/Data [...] for followup. Signatures Electronically signed by : Huber Tamayo MD; Feb 24 2019 9:33PM EST (Author) Normal [facility] Established Visit (Neurosurg barrie)on 12-22-2018 Established Visit [...] Vital Signs Recorded: 15Dec2018 01:43PM Heart Rate80 Mjgdytzhgnn60 Vggdbljo314 Gwlultgsx14 Height5 ft 4 in Physical Exam Constitutional - General appearance: No acute distress, well developed, well nourished and appearing her stated age. Musculoskeletal - Digits and nails: No visible deformity of joints. Inspection/palpation of joints, bones and muscles: Normal. Range of motion: Normal. Neurologic - Oriented to self, place, and time. incision along the back, c/d/i. [place] removed today in clinic. Language: Fluid speech [...] sign Mood and affect: Normal. Results/Data Surgical [id number] 12:00[facility] [place] Test NameResultFlagReference Case Surgical Pathology(Report) Name TRISH HUNT Pathologist: Samantha Martinez MD, Ph.D. Date of Procedure: 11/23/2018 Date Received: 11/23/2018 Date Reported 11/29/2018 Submitting Physician: HUBER TAMAYO MD Location: [facility] Other External # FINAL DIAGNOSIS SPINE, THORACIC, EXCISION: --METASTATIC NON-SMALL CELL CARCINOMA CONSISTENT WITH ADENOCARCINOMA INVOLVING SOFT TISSUE AND BONE. SEE NOTE Note: Findings are consistent with previous ([id number]) Electronically Signed Out By Samantha Martinez MD, [...] to 6.5 x 6.5 x 1.5 cm. [facility] sections are submitted in 5 cassettes. DJO [...] 3 months. Signatures Electronically signed by : Hubre Tamayo MD; Dec 22 2018 8:06PM EST (Author) Normal [facility] Basic Metabolic Panelon - Calcium mass conc 9.1 mg/dL 8.4 - 10.2 mg/dL [facility] Chloride molar conc 106 mmol/L 98 - 108 mmol/L [facility] CO2 molar conc 27 mmol/L 21 - 32 mmol/L [facility] Creatinine mass conc 0.88 mg/dL 0.6 - 1 .2 mg/dL [facility] GFR/1.73 sq M predicted among blacks MDRD vol rate/area (S/P/Bld) mL/min/{1.73_m2} ml/min/1.7 3sq.m [facility] Comment on above: GFR Calc GFR/1.73 sq M predicted among non-blacks MDRD vol rate/area (S/P/Bld) mL/min/{1.73_m2} ml/min/1.7 3sq.m [facility] Comment on above: Non- GFR Calc eGFR [...] 115 mg/dL High 70 - 99 mg/dL [facility] Comment on above: This test result darrin ht be falsely depressed or falsely elevated on samples drawn from patients taking Sulfasalazine and Sulfapyridine. Venipuncture should occur prior to taking either of these drugs. Interpretation and review of laboratory results Abnormal [facility] Potassium molar conc 3.8 mmol/L 3.5 - 5 .1 mmol/L [facility] Sodium molar conc 139 mmol/L 135 - 145 mmol/L [facility] Urea nitrogen mass conc 8 mg/dL 8 - 25 mg/dL [facility] Calcium mass conc 9.1 mg/dL Normal 8.4-10.2 [facility] Comment on above: Performed By: #### C HEM8, CBCDIF #### Unless otherwise noted, all testing performed by [place] [address] CLIA: [id number] Environmental Field Technician: Cliff Woods M.D. Chloride molar conc 106 mmol/L Normal 98-[address] [facility] Comment on above: Performed By: #### C HEM8, CBCDIF #### Unless otherwise noted, all testing performed by [place] [address] CLIA: [id number] Environmental Field Technician: Cliff Woods M.D. CO2 molar conc 27 mmol/L Normal 21-32 [facility] Comment on above: Performed By: #### C HEM8, CBCDIF #### Unless otherwise noted, all testing performed by [place] [address] CLIA: [id number] Environmental Field Technician: Cliff Woods M.D. Creatinine mass conc 0.88 mg/dL Normal 0.60-1.20 [facility] Comment on above: Performed By: #### C HEM8, CBCDIF #### Unless otherwise noted, all testing performed by [address] [place], [place] [address] CLIA: [id number] Environmental Field Technician: Cliff Woods M.D. GFR/1.73 sq M predicted among blacks MDRD vol rate/area (S/P/Bld) mL/min/{1.73_m2} Normal [facility] Comment on above: Result Comment: Afri can Guine[place] GFR Calc Performed By: #### C HEM8, CBCDIF #### Unless otherwise noted, all testing performed by [place] [address] CLIA: [id number] Environmental Field Technician: Cliff Woods M.D. GFR/1.73 sq M predicted among non-blacks MDRD vol rate/area (S/P/Bld) mL/min/{1.73_m2} Normal [facility] Comment on above: Result Comment: [...] Unless otherwise noted, all testing performed by [place] [address] CLIA: [id number] Environmental Field Technician: Cliff Woods M.D. Glucose mass conc 115 mg/dL High 70-99 [facility] Comment on above: Result Comment: This test result might be falsely depressed or falsely elevated on samples drawn from patients taking Sulfasalazine and Sulfapyridine. Venipuncture should occur prior to taking either of these drugs. Performed By: #### C HEM8, CBCDIF #### Unless otherwise noted, all testing performed by [place] [address] CLIA: [id number] Environmental Field Technician: Cliff Woods M.D. Potassium molar conc 3.8 mmol/L Normal 3.5-5.1 [facility] Comment on above: Performed By: #### C HEM8, CBCDIF #### Unless otherwise noted, all testing performed by [place] [address] CLIA: [id number] Environmental Field Technician: Cliff Woods M.D. Sodium molar conc 139 mmol/L Normal 135-145 [facility] Comment on above: Performed By: #### C HEM8, CBCDIF #### Unless otherwise noted, all testing performed by [place] [address] CLIA: [id number] Environmental Field Technician: Cliff Woods M.D. Urea nitrogen mass conc 8 mg/dL Normal 8-25 [facility] Comment on above: Performed By: #### C HEM8, CBCDIF #### Unless otherwise noted, all testing performed by [place] [address] CLIA: [id number] Environmental Field Technician: Cliff Woods M.D. CBC AND DIFFERENTIALon 12-10 Basophils #/vol (Bld) 0.1 10*3/uL [facility] Basophils/100 WBC (Bld) 1.3 % [facility] Eosinophils #/vol (Bld) 0.6 10*3/uL High [facility] Eosinophils/100 WBC (Bld) 12.3 % [facility] Erythrocyte distribution width Ratio (RBC) 14.8 % High 10 - 14.4 % [facility] Hematocrit Volume Fraction (Bld) 30.2 % Low 34.4 - 44.8 % [facility] Hemoglobin mass conc (Bld) 9.9 g/dL Low 11.6 - 15.4 g/dL [facility] Interpretation and review of laboratory results Abnormal [facility] Lymphocytes #/vol (Bld) 1.1 10*3/uL [facility] Lymphocytes/100 WBC (Bld) 22.0 % [facility] MCH Entitic mass (RBC) 30.3 pg 27.9 - 33.9 pg [facility] MCHC mass conc (RBC) 33.0 g/dL Low 33.1 - 35.1 g/dL [facility] MCV Entitic volume (RBC) 91.9 fL [facility] Monocytes #/vol (Bld) 0.4 10*3/uL [facility] Monocytes/100 WBC (Bld) 8.7 % [facility] Neutrophils #/vol (Bld) 2.8 10*3/uL [facility] Platelet mean volume Entitic volume (Bld) 7.7 fL [facility] Platelets #/vol (Bld) 332 10*3/uL [facility] RBC #/vol (Bld) 3.28 10*6/uL Low [facility] lth Segmented Neut 55.7 % [facility] WBC #/vol (Bld) 5.0 10*3/uL [facility] CBC with Diffon 12-10-2018 Basophils #/vol (Bld) 0.1 K/mcL Normal 0-0.2 [facility] Comment on above: Performed By: #### C HEM8, CBCDIF #### Unless otherwise noted, all testing performed by [place] [address] CLIA: [id number] Environmental Field Technician: Cliff Woods M.D. Basophils/100 WBC (Bld) 1.3 % Normal [facility] Comment on above: Performed By: #### C HEM8, CBCDIF #### Unless otherwise noted, all testing performed by [place] [address] CLIA: [id number] Environmental Field Technician: Cliff Woods M.D. Eosinophils #/vol (Bld) 0.6 K/mcL High 0-0.5 [facility] Comment on above: Performed By: #### C HEM8, CBCDIF #### Unless otherwise noted, all testing performed by [place] [address] CLIA: [id number] Environmental Field Technician: Cliff Woods M.D. Eosinophils/100 WBC (Bld) 12.3 % Normal [facility] Comment on above: Performed By: #### C HEM8, CBCDIF #### Unless otherwise noted, all testing performed by [place] [phone] CLIA: [id number] Environmental Field Technician: Cliff Woods M.D. Erythrocyte distribution width Ratio (RBC) 14.8 % High 10.0-14.4 [facility] Comment on above: Performed By: #### C HEM8, CBCDIF #### Unless otherwise noted, all testing performed by [place] [phone] CLIA: [id number] Environmental Field Technician: Cliff Woods M.D. Hematocrit Volume Fraction (Bld) 30.2 % Low 34.4-44.8 [facility] Comment on above: Performed By: #### C HEM8, CBCDIF #### Unless otherwise noted, all testing performed by [place] [phone] CLIA: [id number] Environmental Field Technician: Cliff Woods M.D. Hemoglobin mass conc (Bld) 9.9 g/dL Low 11.6-15.4 [facility] Comment on above: Performed By: #### C HEM8, CBCDIF #### Unless otherwise noted, all testing performed by [place] [address] CLIA: [id number] Environmental Field Technician: Cliff Woods M.D. Lymphocytes #/vol (Bld) 1.1 K/mcL Normal 1.0-3.7 [facility] Comment on above: Performed By: #### C HEM8, CBCDIF #### Unless otherwise noted, all testing performed by [place] [address] CLIA: [id number] Environmental Field Technician: Cliff Woods M.D. Lymphocytes/100 WBC (Bld) 22.0 % Normal [facility] Comment on above: Performed By: #### C HEM8, CBCDIF #### Unless otherwise noted, all testing performed by [place] [address] CLIA: [id number] Environmental Field Technician: Cliff Woods M.D. MCH Entitic mass (RBC) 30.3 pg Normal 27.9-33.9 [facility] Comment on above: Performed By: #### C HEM8, CBCDIF #### Unless otherwise noted, all testing performed by [place] [address] CLIA: [id number] Environmental Field Technician: Cliff Woods M.D. MCHC mass conc (RBC) 33.0 g/dL Low 33.1-35.1 [facility] Comment on above: Performed By: #### C HEM8, CBCDIF #### Unless otherwise noted, all testing performed by [place] [address] CLIA: [id number] Environmental Field Technician: Cliff Woods M.D. MCV Entitic volume (RBC) 91.9 fL Normal 82.6-98.9 [facility] Comment on above: Performed By: #### C HEM8, CBCDIF #### Unless otherwise noted, all testing performed by [address] [place] [address] CLIA: [id number] Environmental Field Technician: Cliff Woods M.D. Monocytes #/vol (Bld) 0.4 K/mcL Normal 0.1-0.6 [facility] Comment on above: Performed By: #### C HEM8, CBCDIF #### Unless otherwise noted, all testing performed by [place] [address] CLIA: [id number] Environmental Field Technician: Cliff Woods M.D. Monocytes/100 WBC (Bld) 8.7 % Normal [facility] Comment on above: Performed By: #### C HEM8, CBCDIF #### Unless otherwise noted, all testing performed by [place] [phone] CLIA: [id number] Environmental Field Technician: Cliff Woods M.D. Neutrophils #/vol (Bld) 2.8 K/mcL Normal 1.2-6.9 [facility] Comment on above: Performed By: #### C HEM8, CBCDIF #### Unless otherwise noted, all testing performed by [place] [phone] CLIA: [id number] Environmental Field Technician: Cliff Woods M.D. Platelet mean volume Entitic volume (Bld) 7.7 fL Normal 7.0-10.6 [facility] Comment on above: Performed By: #### C HEM8, CBCDIF #### Unless otherwise noted, all testing performed by [place] [phone] CLIA: [id number] Environmental Field Technician: Cliff Woods M.D. Platelets #/vol (Bld) 332 K/mcL Normal 162-402 [facility] Comment on above: Performed By: #### C HEM8, CBCDIF #### Unless otherwise noted, all testing performed by [place] [address] CLIA: [id number] Environmental Field Technician: Cliff Woods M.D. RBC #/vol (Bld) 3.28 M/mcL Low 3.7-5.0 [facility] Comment on above: Performed By: #### C HEM8, CBCDIF #### Unless otherwise noted, all testing performed by [place] [address] CLIA: [id number] Environmental Field Technician: Cliff Woods M.D. Segmented Neut % 55.7 % Normal [facility] Comment on above: Performed By: #### C HEM8, CBCDIF #### Unless otherwise noted, all testing performed by [place] [address] CLIA: [id number] Environmental Field Technician: Cliff Woods M.D. WBC #/vol (Bld) 5.0 K/mcL Normal 3.4-10.6 [facility] Comment on above: Performed By: #### C HEM8, CBCDIF #### Unless otherwise noted, all testing performed by [place] [address] CLIA: [id number] Environmental Field Technician: Cliff Woods M.D. Clinical Event Note-Hospital dischargeon 12-04-2018 Clinical Event Note-Hospital discharge Event: Topic: Hospital discharge Details: On 12/04/18 Ms. Hunt was discharged to SNF in a stable condition. She was supposed to leave the prior day, but ambulance transport could not be arranged. Provider / Team Contact Information: Provider/Team Contact Info-Pager Number: Austin Amanda CNP/ pager [phone] Electronic Signatures: Austin Amanda (TRAVEL AGENCY MANAGER-SCREENING TECHNICIAN) (Signed 04-Dec-2018 12:43) Authored: Event, Provider / Team Contact Information Last Updated: 04-Dec-2018 12:43 by Austin Amanda (TRAVEL AGENCY MANAGER-SCREENING TECHNICIAN) Normal [facility] CBCon 12-03-2018 Erythrocyte distribution width Ratio (RBC) 14.1 % Normal 11.5 - 14.5 [facility] Comment on above: Performed By: #### C BCDF #### [place] [address] [place] [address] Hematocrit Volume Fraction (Bld) 29.9 % Low 36.0 - 46.0 [facility] Comment on above: Performed By: #### C BCDF #### [facility] [address] [place] [address] Hemoglobin mass conc (Bld) 9.1 g/dL Low 12.0 - 16.0 [facility] Comment on above: Performed By: #### C BCDF #### [facility] [address] [place] [address] MCHC mass conc (RBC) 30.4 g/dL Low 32.0 - 36.0 [facility] Comment on above: Performed By: #### C BCDF #### [facility] [address] [place] [address] MCV Entitic volume (RBC) 100 fL Normal 80 - 100 [facility] Comment on above: Performed By: #### C BCDF #### [facility] [address] [place] [address] Nucleated RBC/100 WBC Ratio (Bld) 0.0 /100 WBC Normal 0.0-0.0 [facility] Comment on above: Performed By: #### C BCDF #### [facility] [address] [place] [address] Platelets #/vol (Bld) 510 10*3/uL High 150 - 450 [facility] Comment on above: Performed By: #### C BCDF #### [facility] [address] [place] [address] RBC #/vol (Bld) 2.99 x10E12/L Low 4.00 - 5.20 [facility] Comment on above: Performed By: #### C BCDF #### [facility] [address] [place] [address] WBC #/vol (Bld) 7.1 10*3/uL Normal 4.4 - 11.3 [facility] Comment on above: Performed By: #### C BCDF #### [facility] [address] [place] [address] Daily Progress Note-Palliati ve Careon 12-03-2018 Protein [...] complaints Objective Data: Objective Information: T PRBPSpO2 [id number]/7195% Date/Time12/03 5:13118 5:131 5:13118 5:13118 5:13 Range(36.4C - 37.1C ) (73 - [...] contact team with any questions or concerns. [id number] Electronic Signatures: Annette Keller) (Signed 03-Dec-2018 16:32) Authored: Service, Subjective Data, Objective Data, Assessment and Plan, Signature/Cosignature/Attes tation Last Updated: 03-Dec-2018 16:32 by Annette Keller) Normal [facility] BASIC METABOLIC PANELon 11-16 Anion gap molar conc 12 mmol/L Normal 10 - 20 [facility] [place] [facility] Comment on above: Performed By: #### C BCDF #### [facility] [address] [place] [address] Calcium mass conc 8.6 mg/dL Normal 8.6 - 10.6 [facility] [place] [facility] Comment on above: Performed By: #### C BCDF #### [facility] [address] [place] [address] Chloride molar conc 104 mmol/L Normal 98 - 107 [facility] [place] [facility] Comment on above: Performed By: #### C BCDF #### [facility] [address] [place] [address] Creatinine mass conc 0.94 mg/dL Normal 0.50 - 1.05 [facility] [place] [facility] Comment on above: Performed By: #### C BCDF #### [facility] [address] [place] [address] GFR- AM. 70 mL/min/1.73m2 Normal >60 [facility] [place] [facility] Comment on above: Result Comment: CALC ULATIONS OF ESTIMATED GFR ARE PERFORMED USING THE MDRD STUDY EQUATION FOR THE IDMS-TRACEABLE CREATININE METHODS. CLIN CHEM 2007;53:766-72 Performed By: #### C BCDF #### [facility] [address] [place] [address] GFR-NON AM. 58 mL/min/1.73m2 Abnormal >60 [facility] [place] [facility] Comment on above: Performed By: #### C BCDF #### [facility] [address] [place] [address] Glucose mass conc 110 mg/dL High 74 - 99 [facility] Comment on above: Performed By: #### C BCDF #### [facility] [address] [place] [address] HCO3 molar conc (Bld) 26 mmol/L Normal 21 - 32 [facility] Comment on above: Performed By: #### C BCDF #### [facility] [address] [place] [address] Potassium molar conc 4.3 mmol/L Normal 3.5 - 5.3 [facility] Comment on above: Performed By: #### C BCDF #### [facility] [address] [place] [address] Sodium molar conc 138 mmol/L Normal 136 - 145 [facility] Comment on above: Performed By: #### C BCDF #### [facility] [address] [place] [address] Urea nitrogen mass conc 10 mg/dL Normal 6 - 23 [facility] Comment on above: Performed By: #### C BCDF #### [facility] [address] [place] [address] CBCon 12-02-2018 Erythrocyte distribution width Ratio (RBC) 14.0 % Normal 11.5 - 14.5 [facility] Comment on above: Performed By: #### C BCDF #### [facility] [address] [place] [address] Hematocrit Volume Fraction (Bld) 32.4 % Low 36.0 - 46.0 [facility] Comment on above: Performed By: #### C BCDF #### [facility] [address] [place] [address] Hemoglobin mass conc (Bld) 9.7 g/dL Low 12.0 - 16.0 [facility] Comment on above: Performed By: #### C BCDF #### [facility] [address] [place] [address] MCHC mass conc (RBC) 29.9 g/dL Low 32.0 - 36.0 [facility] Comment on above: Performed By: #### C BCDF #### [facility] [address] [place] [address] MCV Entitic volume (RBC) 102 fL High 80 - 100 [facility] [place] [facility] Comment on above: Performed By: #### C BCDF #### [facility] [address] [place] [address] Nucleated RBC/100 WBC Ratio (Bld) 0.0 /100 WBC Normal 0.0-0.0 [facility] Comment on above: Performed By: #### C BCDF #### [facility] [address] [place] [address] Platelets #/vol (Bld) 472 10*3/uL High 150 - 450 [facility] Comment on above: Performed By: #### C BCDF #### [facility] [address] [place] [address] RBC #/vol (Bld) 3.17 x10E12/L Low 4.00 - 5.20 [facility] Comment on above: Performed By: #### C BCDF #### [facility] [address] [place] [address] WBC #/vol (Bld) 6.9 10*3/uL Normal 4.4 - 11.3 [facility] Comment on above: Performed By: #### C BCDF #### [facility] [address] [place] [address] Daily Progress Note-Medicine on 12-02-2018 Protein mass [...] Cholecystectomy - L4-L5 Decompression 1999 T PRBPSpO2 [id number]/7295% Date/Time12/02 14: 14: 14: 14: 14:00 Range(36.2C [...] Serum 8.6 Complete Blood Count Trending View [id number] 11:40:00 01-Dec-2018 05:05:00 White Blood Cell Count6.9 11.1 Nucleated Erythrocyte Count0.0 0.0 Red Blood Cell Count3.17 L 2.66 L HGB9.7 L 8.0 L HCT32.4 L 26.8 L EYJ134 H 101 H MCHC29.9 L 29.9 L SOP234 H 371 RDW-CV14.0 14.3 11/30/18: URINE CULTURE,BACTERIAL [...] Cord Stimulator Implant who is [facility] 11[facility]18 from [facility] after presenting with intractable progressive back pain [...] and chest pain with deep breath at [place] ER presentation 11/11/18. A CT of the [...] fusion patient desires to do this at [place] location. [facility] facility in [place] [facility], but insurance accepted at [facility] in [place]. Dr. Arthur Gates of Oncology there saw her as an inpatient prior to her transfer here - arrange for follow up at [facility] with Dr. Arthur Gates of Oncology as well as Radiation Oncology there. Pathology and procedural reports as well as radiology reports faxed to them at [phone] for follow up arrangement. - Make CD of Imaging for patient to bring to [facility] appointment 2) T10 PATHOLOGIC METASTATIC FRACTURE w/ CORD COMPRESSION: Presented to [facility] 11/11/18 with intractable progressive back pain [...] A CT Chest, Abdomen and Pelvis at [place] showed a suspected Pathologic fracture of the [...] given Decadron with request for transfer to [facility] for Neurosurgery evaluation. Neurosurgery consulted. CT Thoracic [...] Bone and Soft Tissue. Initially on IV DIVE SUPERVISOR of Hydromorphone, but now transitioned to oral Oxycodone scheduled with PRN breakthrough with pain overall improving. [place] Toradol helped back pain and transitioned to [...] 14:00 - arrangement for follow up at [facility] requested 3) HCAP: Developed [...] is agreeable to closer to home in [place]. Social work consulted. Family at bedside and supportive - daughter given CD disc of patient's radiologic examinations to bring to follow up at [facility] Follow up ----- PCP: Dr. Harjinder Braswell [phone] Urology: Dr. Earnest Herrera Pharmacy: [facility] ([place]) [phone] DME: Nebulizer Insurer: [employer] Medicare Family: / POA Healthcare - Kin Hunt [phone] Dtr. / 1st Alt. POA - Annita Craftton [phone] / [phone] Dtr. / 2nd Alt. POA - Dionne Wilkes [phone] Follow Up: Dr. Huber Tamayo (Neurosurgery) 15-Dec-2018 14:00 [facility] [address], [address] [facility] Signature/Cosignature/Attes tation: Provider/Team Contact Info-Pager Miriam Carlos [facility] # [phone] Attending Only - Shared Visit with Advanced [...] [place]) (Signed 02-Dec-2018 17:36) Authored: Signature/Cosignature/Attes tation Nessa Carlos (TRAVEL AGENCY MANAGER-SCREENING TECHNICIAN) (Signed 02-Dec-2018 21:33) Authored: Service, Subjective Data, Objective Data, Assessment and Plan, Signature/Cosignature/Attes tation Last Updated: 02-Dec-2018 21:33 by Nessa Carlos (TRAVEL AGENCY MANAGER-SCREENING TECHNICIAN) [facility] Daily Progress Note-Palliati ve Careon 12-02-2018 Protein [...] pain. Objective Data: Objective Information: T PRBPSpO2 [id number]/6693% Date/Time12/02 4: 4: 4: 4: 4:55 Range(36.2C - 36.4C [...] team with any questions or concerns at [id number]. Signature/Cosignature/Attes tation: Attending AttestationI saw and evaluated [...] awake and not q6. Call with questions, [phone]. Electronic Signatures: Annette Keller) (Signed 02-Dec-2018 14:27) Authored: Service, Signature/Cosignature/Attes tation Co-Signer: Subjective Data, Objective Data, Assessment and Plan, Signature/Cosignature/Attes tation Yvonne Pacheco (Resident)) (Signed 02-Dec-2018 09:53) Authored: Service, Subjective Data, Objective Data, Assessment and Plan, Signature/Cosignature/Attes tation Last Updated: 02-Dec-2018 14:27 by Annette Keller) Normal [facility] CBCon 12-01-2018 Erythrocyte distribution width Ratio (RBC) 14.3 % Normal 11.5 - 14.5 [facility] Comment on above: Performed By: #### C BCDF #### [facility] [address] [place] [id number] Hematocrit Volume Fraction (Bld) 26.8 % Low 36.0 - 46.0 [facility] [place] Comment on above: Performed By: #### C BCDF #### [facility] [address] [place] [address] Hemoglobin mass conc (Bld) 8.0 g/dL Low 12.0 - 16.0 [facility] [place] Comment on above: Performed By: #### C BCDF #### [facility] [address] [place] [address] MCHC mass conc (RBC) 29.9 g/dL Low 32.0 - 36.0 [facility] [place] Comment on above: Performed By: #### C BCDF #### [facility] [address] [place] [address] MCV Entitic volume (RBC) 101 fL High 80 - 100 [facility] [place] Comment on above: Performed By: #### C BCDF #### [facility] [address] [place] [address] Nucleated RBC/100 WBC Ratio (Bld) 0.0 /100 WBC Normal 0.0-0.0 [facility] [place] Comment on above: Performed By: #### C BCDF #### [facility] [address] [place] [address] Platelets #/vol (Bld) 371 10*3/uL Normal 150 - 450 [facility] [place] Comment on above: Performed By: #### C BCDF #### [facility] [address] [place] [address] RBC #/vol (Bld) 2.66 x10E12/L Low 4.00 - 5.20 [facility] [place] Comment on above: Performed By: #### C BCDF #### [facility] [address] [place] [address] WBC #/vol (Bld) 11.1 10*3/uL Normal 4.4 - 11.3 [facility] [place] Comment on above: Performed By: #### C BCDF #### [facility] [address] [place] [address] Daily Progress Note-Medicine on 12-01-2018 Protein mass [...] Cholecystectomy - L4-L5 Decompression 1999 T PRBPSpO2 Value36.06888295/6496% Date/Time12/01 14: 14: 14: 14: 14:00 Range(36.2C [...] laboratory results: Complete Blood Count Trending View [id number] 05:05:00 30-Nov-2018 05:54:00 White Blood Cell Count11.1 13.3 H Nucleated Erythrocyte Count0.0 0.0 Red Blood Cell Count2.66 L 2.84 L HGB8.0 L 8.6 L HCT26.8 L 27.5 L WDK458 H 97 MCHC29.9 L 31.3 L HQM188 341 RDW-CV14.3 14.3 Urinalysis 30-Nov-2018 10:00:00 ResultValue Color, Urine YELLOW Reference Range: STRAW,YELLOW Appearance, Urine HAZY Specific [place], Urine 1.018 pH, Urine 5.0 Protein, Urine [...] NOTE Note: Findings are consistent with previous ([id number]) Radiology Results: Results: Xray Chest 2 View PA + Lateral [Dec 01 2018 - final] Impression: 1. Interval improvement in right basilar pleural effusion. A focal airspace opacity is now seen adjacent right heart border, which may represent right middle lobe atelectasis/pneumonic consolidation. 2. Status post thoracolumbar fusion. Assessment and Plan: Assessment: Trish uHnt is a 73 year old female former smoker w/ PMHx significant for HTN, Impaired Fasting Glucose, Hyperlipidemia, Peripheral Neuropathy, Hypothyroidism, GERD, Morbid Obesity and Recent Spinal Cord Stimulator Implant who [facility] from [facility] after presenting with intractable progressive back pain [...] and chest pain with deep breath at [place] ER presentation 11/11/18. A CT of the [...] fusion patient desires to do this at [place] location, although this is a [facility] Facility - await Oncology plans to follow up with Oncology and Radiation Oncology at [place] 2) T10 PATHOLOGIC METASTATIC FRACTURE w/ CORD COMPRESSION: Presented to [facility] 11/11/18 with intractable progressive back pain [...] A CT Chest, Abdomen and Pelvis at [place] showed a suspected Pathologic fracture of the [...] given Decadron with request for transfer to [facility] for Neurosurgery evaluation. Neurosurgery consulted. CT Thoracic [...] metastasis r/t # 1. Initially on IV DIVE SUPERVISOR of Hydromorphone, but now transitioned to oral Oxycodone scheduled with PRN breakthrough with pain overall improving. [place] Toradol helped back pain. - discontinue added [...] 5 mg four times a day - Viajy PRN 8) IMPAIRED FASTING GLUCOSE: Denies diagnosis [...] is agreeable to closer to home in [place]. Social work consulted. Family at bedside and supportive ----- PCP: Dr. Harjinder Braswell [phone] Urology: Dr. Earnest Herrera [facility] [phone] DME: [employer] Insurer: [employer] Medicare Family: / POA Healthcare - Kin Hunt [phone] Dtr. / 1st Alt. POA - Annita Sin [phone] / [phone] Dtr. / 2nd Alt. POA HC - Dionne Wilkes [phone] Follow Up: Dr. Huber Tamayo (Neurosurgery) 15-Dec-2018 14:00 [facility] [address] [facility] Signature/Cosignature/Attes tation: Attending Only - [...] to acetaminophen and oxycodone. Electronic Signatures: Cheng Bethea () (Signed 01-Dec-2018 16:41) Authored: Signature/Cosignature/Attes Nessa Mg (TRAVEL AGENCY MANAGER-SCREENING TECHNICIAN) (Signed 01-Dec-2018 21:57) Authored: Service, Subjective Data, Objective Data, Assessment and Plan Last Updated: 01-Dec-2018 21:57 by Nessa Carlos (TRAVEL AGENCY MANAGER-SCREENING TECHNICIAN) [facility] Daily Progress Note-Palliati ve Careon 12-01-2018 Protein [...] ambulation. Objective Data: Objective Information: T PRBPSpO2 Value36.22532183/6694% Date/Time12/01 5: 5: 5: 5: 5:20 Range(36.2C [...] team with any questions or concerns at [phone]. Signature/Cosignature/Attes tation: Attending AttestationI saw and evaluated [...] Last Updated: 01-Dec-2018 16:43 by Annette Keller) [facility] Daily Progress Note-Radiatio n Oncologyon 12-01-2018 Protein mass conc Service: Radiation O ncology Subjective Data: TRISH HUNT is a 73 year old Female and today is Hospital Day # 20 and POD #8 for T10-11 transpedicular decompression of tumor, T7-L2 instrumented fusion. Ms. Hunt expressed interest in receiving radiation treatment in [place] due to proximity to family. Objective Data: Objective Information: T PRBPSpO2 Value36.90582136/6496% Date/Time12/01 14: 14: 14: 14: 14:00 Range(36.2C [...] status post decompression and fusion on 12/03/18. VALVE TESTER tumor board recommends post operative radiation therapy. Ms. Hunt waiting SNF placement. 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 Patient and family considering other sites. She and her granddaughter expressed interest in receiving treatment in [place] due to proximity to family. Ms. Hunt already has an appointment with medical oncology in [place], Dr. Yarbrough on 12/09/18 at 3 PM. She was set up to see Dr. Brianne Faulkner, radiation oncologist, 12/10/18 at 9:30 AM. Discharge profile updated. Ms. Hunt and Peggy's questions were answered, they were provided with radiation oncology's office number and were encouraged to call with questions. Please feel free to page [phone] team pager [phone] with questions. Electronic Signatures: Leandra Rosario (TRAVEL AGENCY MANAGER-SCREENING TECHNICIAN) (Signed 01-Dec-2018 17:07) Authored: Service, Subjective Data, Objective Data, Assessment and Plan, Signature/Cosignature/Attes tation Last Updated: 01-Dec-2018 17:07 by Leandra Rosario (TRAVEL AGENCY MANAGER-SCREENING TECHNICIAN) Normal [facility] [place] TH CHEST 2 VIEW PA AND LATon 12-01-2018 TH CHEST 2 VIEW PA AND LAT Patient Name: TRISH HUNT STUDY: CHEST 2 VIEW PA AND LAT; 12/01/2018 3:46 pm INDICATION: Signs/Symptoms: cough with leukocytosis. COMPARISON: Chest radiograph 11/22/2018 ACCESSION NUMBER(S): [id number] ORDERING CLINICIAN: NESSA CARLOS FINDINGS: Patient is [...] as stated. This study was interpreted at [facility], [place], [place]. Electronically signed by: LIO CANNON MD [facility] Tumor Board Note-Brain/Spine on 12-01-2018 Tumor Board Note-Brain/Spine Note: Tumor Board Note TRISH HUNT was presented at Brain/Spine Tumor Board Conference on 01-Dec-[address] Huber Tamayo. Impression: Presented with recent Spinal Cord [...] Board, Disclaimer Last Updated: 10-Dec-2018 09:00 by Laila Anderson (PT REG) Normal [facility] [place] CBCon 11-30-2018 Erythrocyte distribution width Ratio (RBC) 14.3 % Normal 11.5 - 14.5 [facility] [place] Comment on above: Performed By: #### C BCDF #### [facility] [address] [place] [address] Hematocrit Volume Fraction (Bld) 27.5 % Low 36.0 - 46.0 [facility] [place] Comment on above: Performed By: #### C BCDF #### [facility] [address] [place] [address] Hemoglobin mass conc (Bld) 8.6 g/dL Low 12.0 - 16.0 [facility] [place] Comment on above: Performed By: #### C BCDF #### [facility] [address] [place] [address] MCHC mass conc (RBC) 31.3 g/dL Low 32.0 - 36.0 [facility] [place] Comment on above: Performed By: #### C BCDF #### [facility] [address] [place] [address] MCV Entitic volume (RBC) 97 fL Normal 80 - 100 [facility] [place] Comment on above: Performed By: #### C BCDF #### [facility] [address] [place] [address] Nucleated RBC/100 WBC Ratio (Bld) 0.0 /100 WBC Normal 0.0-0.0 [facility] [place] Comment on above: Performed By: #### C BCDF #### [facility] [address] [place] [address] Platelets #/vol (Bld) 341 10*3/uL Normal 150 - 450 [facility] [place] Comment on above: Performed By: #### C BCDF #### [facility] [address] [place] [address] RBC #/vol (Bld) 2.84 x10E12/L Low 4.00 - 5.20 [facility] [place] Comment on above: Performed By: #### C BCDF #### [facility] [address] [place] [address] WBC #/vol (Bld) 13.3 10*3/uL High 4.4 - 11.3 [facility] [place] Comment on above: Performed By: #### C BC #### [facility] [address] [place] [address] Daily Progress Note-Medicine on 11-30-2018 Protein mass conc Service: Medicine Subjective Data: TRISH HUNT is a 73 year old Female who is Hospital Day # 19 and POD #7 for T10-11 transpedicular decompression of tumor, T7-L2 instrumented fusion. Objective Data: Objective Information: T PRBPSpO2 [id number]/6294% Date/Time11/30 5: 5: 5: 5: 5:42 Range(36.5C [...] Reference Range: STRAW,YELLOW Appearance, Urine HAZY Specific [place], Urine 1.018 pH, Urine 5.0 Protein, Urine [...] Cord Stimulator Implant who is [facility] from [facility] after presenting with intractable progressive back pain [...] and chest pain with deep breath at [place] ER presentation 11/11/18. 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 Social work consulted. Family at bedside and supportive no beds are available at [facility] at this time family updated on POC Signature/Cosignature/Attes tation: Provider/Team Contact Info-Pager [phone] Attending Only - Shared Visit with Advanced [...] 30-Nov-2018 16:26) Authored: Signature/Cosignature/Attes tation Jordan Saunders (TRAVEL AGENCY MANAGER-SCREENING TECHNICIAN) (Signed 30-Nov-2018 16:00) Authored: Service, Subjective Data, Objective Data, Assessment and Plan, Signature/Cosignature/Attes tation Last Updated: 30-Nov-2018 16:26 by Cheng Bethea) Normal [facility] [place] Daily Progress Note-Palliati ve Careon 11-30-2018 Protein [...] pain. Objective Data: Objective Information: T PRBPSpO2 Value36.17786657/6294% Date/Time11/30 5: 5: 5: 5: 5:42 Range(36.5C [...] team with any questions or concerns at [phone]. Signature/Cosignature/Attes tation: Attending AttestationI saw and evaluated [...] Updated: 30-Nov-2018 15:58 by Annette Keller) Normal [facility] [place] RENAL FUNCTION PANELon 11-30 Albumin mass conc 2.7 g/dL Low 3.4 - 5.0 [facility] [place] Comment on above: Performed By: #### C BCDF #### [facility] [address] [place] [address] Anion gap molar conc 12 mmol/L Normal 10 - 20 [facility] [place] Comment on above: Performed By: #### C BCDF #### [facility] [address] [place] [address] Calcium mass conc 7.7 mg/dL Low 8.6 - 10.6 [facility] [place] Comment on above: Performed By: #### C BCDF #### [facility] [address] [place] [address] Chloride molar conc 107 mmol/L Normal 98 - 107 [facility] [place] Comment on above: Performed By: #### C BCDF #### [facility] [address] [place] [address] Creatinine mass conc 0.83 mg/dL Normal 0.50 - 1.05 [facility] [place] Comment on above: Performed By: #### C BCDF #### [facility] [address] [place] [address] GFR- AM. >60 Normal >60 [facility] [place] Comment on above: Result Comment: CALC ULATIONS OF ESTIMATED GFR ARE PERFORMED USING THE MDRD STUDY EQUATION FOR THE IDMS-TRACEABLE CREATININE METHODS. CLIN CHEM 2007;53:766-72 Performed By: #### C BCDF #### [facility] [address] [place] [address] GFR-NON AM. >60 Normal >60 [facility] [place] Comment on above: Performed By: #### C BCDF #### [facility] [address] [place] [address] Glucose mass conc 122 mg/dL High 74 - 99 [facility] [place] Comment on above: Performed By: #### C BCDF #### [facility] [address] [place] [address] HCO3 molar conc (Bld) 25 mmol/L Normal 21 - 32 [facility] [place] Comment on above: Performed By: #### C BCDF #### [facility] [address] [place] [address] Phosphate mass conc 2.8 mg/dL Normal 2.5 - 4.9 [facility] [place] Comment on above: Result Comment: The performance characteristics of phosphorus testing in heparinized plasma have been validated by the individual laboratory site where testing is performed. Testing on heparinized plasma is not approved by the FDA; however, such approval is not necessary. Performed By: #### C BCDF #### [facility] [address] [place] [address] Potassium molar conc 3.9 mmol/L Normal 3.5 - 5.3 [facility] [place] Comment on above: Performed By: #### C BCDF #### [facility] [address] [place] [address] Sodium molar conc 140 mmol/L Normal 136 - 145 [facility] [place] Comment on above: Performed By: #### C BCDF #### [facility] [address] [place] [address] Urea nitrogen mass conc 17 mg/dL Normal 6 - 23 [facility] [place] Comment on above: Performed By: #### C BCDF #### [facility] [address] [place] [address] UA MICROSCOPICon 11-30-2018 RBC 14 /HPF Abnormal 0-5 [facility] [place] Comment on above: Performed By: #### C BCDF #### [facility] [address] [place] [address] WBC #/vol (Bld) 10*3/uL Abnormal 0-5 [facility] [place] Comment on above: Performed By: #### C BCDF #### [facility] [address] [place] [address] WBC CLUMPS MANY Normal [facility] [place] Comment on above: Performed By: #### C BCDF #### [facility] [address] [place] [address] URINALYSISon 11-30-2018 Appearance Nom (U) HAZY Normal CLEAR [facility] [place] Comment on above: Performed By: #### C BCDF #### [facility] [address] [place] [address] Bilirubin mass conc Negative Normal NEGATIVE [facility] [place] Comment on above: Performed By: #### C BCDF #### [facility] [address] [place] [address] BLOOD SMALL (1+) Abnormal NEGATIVE [facility] [place] Comment on above: Performed By: #### C BCDF #### [facility] [address] [place] [address] Color Nom (U) YELLOW Normal STRAW,YELL OW [facility] [place] Comment on above: Performed By: #### C BCDF #### [facility] [address] [place] [address] Glucose mass conc Negative Normal NEGATIVE [facility] [place] Comment on above: Performed By: #### C BCDF #### [facility] [address] [place] [address] Ketones Ql (U) Negative Normal NEGATIVE [facility] [place] Comment on above: Performed By: #### C BCDF #### [facility] [address] [place] [address] Leukocyte esterase Test strip Ql (U) MODERATE (2+) Abnormal NEGATIVE [facility] [place] Comment on above: Performed By: #### C BCDF #### [facility] [address] [place] [address] Nitrite Ql (U) Negative Normal NEGATIVE [facility] [place] Comment on above: Performed By: #### C BCDF #### [facility] [address] [place] [address] pH (Bld) 5.0 Normal 5.0 - 8.0 [facility] [place] Comment on above: Performed By: #### C BCDF #### [facility] [address] [place] [address] Protein mass conc (U) 100 (2+) Abnormal NEGATIVE [facility] [place] Comment on above: Performed By: #### C BCDF #### [facility] [address] [place] [address] Specific gravity Relative Density (U) 1.018 Normal 1.005 - 1.035 [facility] [place] Comment on above: Performed By: #### C BCDF #### [facility] [address] [place] [address] Urobilinogen Qn (U) 4.0 mg/dL High 0.0 - 1.9 [facility] [place] Comment on above: Result Comment: SOME PIGMENTS AND MEDICATIONS MAY CAUSE A FALSE POSITIVE UROBILINOGEN Performed By: #### C BCDF #### [facility] [address] [place] [address] URINE CULTURE,BACTERIALon URINE CULTURE,BACTERIAL PATIENT: TRISH HUNT LOCATION: [place] [address] BILL#: [id number] : 41 AGE: SEX: F ORDERED BY: [...] DOSE DEPENDENT NS=NONSUSCEPTIBLE X=REPORTED IN ERROR Normal [facility] [place] Comment on above: Performed By: #### C BCDF #### [facility] [address] [place] [id number] BN HIP, UNILATERAL W/PELVIS WHEN PERFORMED 2-3 VIEWSon 11-29-2018 BN HIP, UNILATERAL W/PELVIS WHEN PERFORMED 2-3 VIEWS Patient Name: TRISH HUNT STUDY: BN HIP, UNILATERAL W/PELVIS WHEN PERFORMED 2-3 VIEWS; 11/28/2018 10:47 pm INDICATION: Signs/Symptoms: pain. COMPARISON: None. ACCESSION NUMBER(S): [id number] ORDERING CLINICIAN: NESSA CARLOS FINDINGS: Moderate bilateral [...] as stated. This study was interpreted at [place], [place]. Electronically signed by: SARMAD CHAMPION MD Normal [facility] [place] CBCon 11-29-2018 Erythrocyte distribution width Ratio (RBC) 13.9 % Normal 11.5 - 14.5 [facility] [place] Comment on above: Performed By: #### C BCDF #### [facility] [address] [place] [address] Hematocrit Volume Fraction (Bld) 26.4 % Low 36.0 - 46.0 [facility] [place] Comment on above: Performed By: #### C BCDF #### [facility] [address] [place] [address] Hemoglobin mass conc (Bld) 8.3 g/dL Low 12.0 - 16.0 [facility] [place] Comment on above: Performed By: #### C BCDF #### [facility] [address] [place] [address] MCHC mass conc (RBC) 31.4 g/dL Low 32.0 - 36.0 [facility] [place] Comment on above: Performed By: #### C BCDF #### [facility] [address] [place] [address] MCV Entitic volume (RBC) 97 fL Normal 80 - 100 [facility] [place] Comment on above: Performed By: #### C BCDF #### [facility] [address] [place] [address] Nucleated RBC/100 WBC Ratio (Bld) 0.0 /100 WBC Normal 0.0-0.0 [facility] [place] Comment on above: Performed By: #### C BCDF #### [facility] [address] [place] [address] Platelets #/vol (Bld) 296 10*3/uL Normal 150 - 450 [facility] [place] Comment on above: Performed By: #### C BCDF #### [facility] [address] [place] [address] RBC #/vol (Bld) 2.72 x10E12/L Low 4.00 - 5.20 [facility] [place] Comment on above: Performed By: #### C BCDF #### [facility] [address] [place] [address] WBC #/vol (Bld) 9.2 10*3/uL Normal 4.4 - 11.3 [facility] [place] Comment on above: Performed By: #### C BCDF #### [facility] [address] [place] [address] Daily Progress Note-Medicine on 11-29-2018 Protein mass conc Service: Medicine Subjective Data: TRISH HUNT is a 73 year old Female who is Hospital Day # 18 and POD #6 for T10-11 transpedicular decompression of tumor, T7-L2 instrumented fusion. Objective Data: Objective Information: T PRBPSpO2 Value36.46498451/6794% Date/Time11/29 9: 9: 9: 9: 9:31 Range(36.5C [...] lung base. The study was interpreted at [facility]. MRI T Spine w/wo Contrast [Nov 26 2018 5:09PM] Assessment and Plan: Assessment: Trish Hunt is a 73 year old female former smoker w/ PMHx significant for HTN, Impaired Fasting Glucose, Hyperlipidemia, Peripheral Neuropathy, Hypothyroidism, GERD, Morbid Obesity and Recent Spinal Cord Stimulator Implant who is [facility] after presenting with intractable progressive back pain [...] and chest pain with deep breath at [place] ER presentation 11/11/18. 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 Social work consulted. Family at bedside and supportive Signature/Cosignature/Attes tation: Provider/Team Contact Info-Pager [phone] Attending Only - Shared Visit with Advanced [...] she is agree to transitioning off of DIVE SUPERVISOR. will do this and follow up further pal care recommendations. benefit from longer acting agent like fentanyl will also continue to work on bowel care. patient expressed some fullness, although didn't believe she is constipated. awaiting read on hip xrays still. Electronic Signatures: Cheng Bethea) (Signed 29-Nov-2018 18:35) Authored: Signature/Cosignature/Attes Jordan Reveles (TRAVEL AGENCY MANAGER-SCREENING TECHNICIAN) (Signed 29-Nov-2018 19:09) Authored: Service, Subjective Data, Objective Data, Assessment and Plan, Signature/Cosignature/Attes clifford Last Updated: 29-Nov-2018 19:09 by Jordan Saunders (TRAVEL AGENCY MANAGER-SCREENING TECHNICIAN) Normal [facility] [place] Daily Progress Note-Palliati ve Careon 11-29-2018 Protein [...] yesterday. Objective Data: Objective Information: T PRBPSpO2 Value36.89290022/6597% Date/Time11/29 13: 13: 13: 13: 13:47 Range(36.5C [...] for pain management. Recommendations: - transition from DIVE SUPERVISOR pump to PO pain regimen - required [...] team with any questions or concerns at [phone]. Signature/Cosignature/Attes tation: Attending AttestationI saw and evaluated [...] above attestation) on 29-Nov-2018 Comments/ Additional Findings DIVE SUPERVISOR interrogated at 1006; pt had used hydromorphone IV 2.6 mg with a 20/21 dose/demand ratio. Using this (52mg OME or 35 mg oxycodone-equivalents) for her 24h requirement we made the above conversions to oxycodone which includes a small dose reduction for incomplete cross-tolerance. Will follow. Call with questions, [phone]. Electronic Signatures: Annette Keller) (Signed 29-Nov-2018 19:30) Authored: Service, Signature/Cosignature/Attes tation Co-Signer: Service, Subjective Data, Objective Data, Assessment and Plan, Signature/Cosignature/Attes tation Yvonne Pacheco (Resident)) (Signed 29-Nov-2018 16:15) Authored: Service, Subjective Data, Objective Data, Assessment and Plan, Signature/Cosignature/Attes tation Last Updated: 29-Nov-2018 19:30 by Annette Keller) Normal [facility] [place] RENAL FUNCTION PANELon 11-29 Albumin mass conc 2.6 g/dL Low 3.4 - 5.0 [facility] [place] Comment on above: Performed By: #### C BCDF #### [facility] [address] [place] [address] Anion gap molar conc 13 mmol/L Normal 10 - 20 [facility] [place] Comment on above: Performed By: #### C BCDF #### [facility] [address] [place] [address] Calcium mass conc 7.6 mg/dL Low 8.6 - 10.6 [facility] [place] Comment on above: Performed By: #### C BCDF #### [facility] [address] [place] [address] Chloride molar conc 105 mmol/L Normal 98 - 107 [facility] [place] Comment on above: Performed By: #### C BCDF #### [facility] [address] [place] [address] Creatinine mass conc 0.85 mg/dL Normal 0.50 - 1.05 [facility] [place] Comment on above: Performed By: #### C BCDF #### [facility] [address] [place] [address] GFR- AM. >60 Normal >60 [facility] [place] Comment on above: Result Comment: CALC ULATIONS OF ESTIMATED GFR ARE PERFORMED USING THE MDRD STUDY EQUATION FOR THE IDMS-TRACEABLE CREATININE METHODS. CLIN CHEM 2007;53:766-72 Performed By: #### C BCDF #### [facility] [address] [place] [address] GFR-NON AM. >60 Normal >60 [facility] [place] Comment on above: Performed By: #### C BCDF #### [facility] [address] [place] [address] Glucose mass conc 93 mg/dL Normal 74 - 99 [facility] [place] Comment on above: Performed By: #### C BCDF #### [facility] [address] [place] [address] HCO3 molar conc (Bld) 26 mmol/L Normal 21 - 32 [facility] [place] Comment on above: Performed By: #### C BCDF #### [facility] [address] [place] [address] Phosphate mass conc 3.7 mg/dL Normal 2.5 - 4.9 [facility] [place] Comment on above: Result Comment: The performance characteristics of phosphorus testing in heparinized plasma have been validated by the individual laboratory site where testing is performed. Testing on heparinized plasma is not approved by the FDA; however, such approval is not necessary. Performed By: #### C BCDF #### [facility] [address] [place] [address] Potassium molar conc 4.0 mmol/L Normal 3.5 - 5.3 [facility] [place] Comment on above: Performed By: #### C BCDF #### [facility] [address] [place] [address] Sodium molar conc 140 mmol/L Normal 136 - 145 [facility] [place] Comment on above: Performed By: #### C BCDF #### [facility] [address] [place] [address] Urea nitrogen mass conc 24 mg/dL High 6 - 23 [facility] [place] Comment on above: Performed By: #### C BCDF #### [facility] [address] [place] [address] BASIC METABOLIC PANELon 11-16 Anion gap molar conc 12 mmol/L Normal 10 - 20 [facility] [place] Comment on above: Performed By: #### C BCDF #### [facility] [address] [place] [address] Calcium mass conc 8.0 mg/dL Low 8.6 - 10.6 [facility] [place] Comment on above: Performed By: #### C BCDF #### [facility] [address] [place] [address] Chloride molar conc 103 mmol/L Normal 98 - 107 [facility] [place] Comment on above: Performed By: #### C BCDF #### [facility] [address] [place] [address] Creatinine mass conc 0.98 mg/dL Normal 0.50 - 1.05 [facility] [place] Comment on above: Performed By: #### C BCDF #### [facility] [address] [place] [address] GFR- AM. 67 mL/min/1.73m2 Normal >60 [facility] [place] Comment on above: Result Comment: CALC ULATIONS OF ESTIMATED GFR ARE PERFORMED USING THE MDRD STUDY EQUATION FOR THE IDMS-TRACEABLE CREATININE METHODS. CLIN CHEM 2007;53:766-72 Performed By: #### C BCDF #### [facility] [address] [place] [address] GFR-NON AM. 55 mL/min/1.73m2 Abnormal >60 [facility] [place] Comment on above: Performed By: #### C BCDF #### [facility] [address] [place] [address] Glucose mass conc 98 mg/dL Normal 74 - 99 [facility] [place] Comment on above: Performed By: #### C BCDF #### [facility] [address] [place] [address] HCO3 molar conc (Bld) 26 mmol/L Normal 21 - 32 [facility] [place] Comment on above: Performed By: #### C BCDF #### [facility] [address] [place] [address] Potassium molar conc 3.8 mmol/L Normal 3.5 - 5.3 [facility] [place] Comment on above: Performed By: #### C BCDF #### [facility] [address] [place] [address] Sodium molar conc 137 mmol/L Normal 136 - 145 [facility] [place] Comment on above: Performed By: #### C BCDF #### [facility] [address] [place] [address] Urea nitrogen mass conc 32 mg/dL High 6 - 23 [facility] [place] Comment on above: Performed By: #### C BCDF #### [facility] [address] [place] [address] CBCon 11-28-2018 Erythrocyte distribution width Ratio (RBC) 13.6 % Normal 11.5 - 14.5 [facility] [place] Comment on above: Performed By: #### C BCDF #### [facility] [address] [place] [address] Hematocrit Volume Fraction (Bld) 28.6 % Low 36.0 - 46.0 [facility] [place] Comment on above: Performed By: #### C BCDF #### [facility] [address] [place] [address] Hemoglobin mass conc (Bld) 9.1 g/dL Low 12.0 - 16.0 [facility] [place] Comment on above: Performed By: #### C BCDF #### [facility] [address] [place] [address] MCHC mass conc (RBC) 31.8 g/dL Low 32.0 - 36.0 [facility] [place] Comment on above: Performed By: #### C BCDF #### [facility] [address] [place] [address] MCV Entitic volume (RBC) 97 fL Normal 80 - 100 [facility] [place] Comment on above: Performed By: #### C BCDF #### [facility] [address] [place] [address] Nucleated RBC/100 WBC Ratio (Bld) 0.0 /100 WBC Normal 0.0-0.0 [facility] [place] Comment on above: Performed By: #### C BCDF #### [facility] [address] [place] [address] Platelets #/vol (Bld) 303 10*3/uL Normal 150 - 450 [facility] [place] Comment on above: Performed By: #### C BCDF #### [facility] [address] [place] [address] RBC #/vol (Bld) 2.96 x10E12/L Low 4.00 - 5.20 [facility] [place] Comment on above: Performed By: #### C BCDF #### [facility] [address] [place] [address] WBC #/vol (Bld) 9.5 10*3/uL Normal 4.4 - 11.3 [facility] [place] Comment on above: Performed By: #### C BCDF #### [facility] [address] [place] [address] Daily Progress Note-Medicine on 11-28-2018 Protein mass [...] Cholecystectomy - L4-L5 Decompression 1999 T PRBPSpO2 [id number]/6396% Date/Time11/28 13: 13: 13: 13: 13:23 Range(36.3C [...] Medication: Medications: Continuous Medications ----- 1. HYDROmorphone DIVE SUPERVISOR 25 mg/ NaCL 0.9% 50 mL: 25 mg IV DIVE SUPERVISOR Scheduled Medications ----- 1. Acetaminophen: 975 mg [...] laboratory results: Complete Blood Count Trending View [id number] 12:05:00 27-Nov-2018 09:45:00 White Blood Cell Count9.5 11.8 H Nucleated Erythrocyte Count0.0 0.0 Red Blood Cell Count2.96 L 3.16 L HGB9.1 L 9.6 L HCT28.6 L 28.5 L MCV97 90 MCHC31.8 L 33.7 ALQ249 303 RDW-CV13.6 13.2 Basic Metabolic Panel Trending View [id number] 12:05:00 27-Nov-2018 09:45:00 Glucose, Serum98 79 NA137 140 K3.8 3.7 CL103 105 Bicarbonate, Serum26 25 Anion Gap, Serum12 14 BUN32 H 24 H CREAT0.98 0.78 GFR-Non Azvttuhf62 A >60 GFR- Fjgnkrlr11 >60 Calcium, Serum8.0 L 8.4 L 11/23/18: Thoracic Spine Surgical Pathology: pending Assessment and Plan: Assessment: Trish Hunt is a 73 year old female former smoker w/ PMHx significant for HTN, Impaired Fasting Glucose, Hyperlipidemia, Peripheral Neuropathy, Hypothyroidism, GERD, Morbid Obesity and Recent Spinal Cord Stimulator Implant who is [facility] from [facility] after presenting with intractable progressive back pain [...] and chest pain with deep breath at [place] ER presentation 11/11/18. A CT of the [...] fusion patient desires to do this at [facility] - await Surgical Pathology from Thoracic Decompression 11/23/18 for confirmation - schedule follow up with Oncology and Radiation Oncology at [facility] in three weeks 2) T10 PATHOLOGIC FRACTURE w/ CORD COMPRESSION: Presumed metastasis r/t # 1. Presented to [facility] 11/11/18 with intractable progressive back pain [...] A CT Chest, Abdomen and Pelvis at [place] showed a suspected Pathologic fracture of the [...] given Decadron with request for transfer to [facility] for Neurosurgery evaluation. Neurosurgery consulted. CT Thoracic and Lumbar Spine as well as MRI of entire spine done and on 11/23/18. Significant Pain was an issue and Palliative care consulted and Dexamethasone as well as a dose of Pamidronate given. She underwent a Thoracic Decompression and Fusion with back pain much improved. Post-operative thoracic x-ray done 11/26/18. She is on a DIVE SUPERVISOR of Hydromorphone. Hemovacs fell out. Post-op MRI of the Spine under Anesthesia 11/26/18 reviewed by Neurosurgery. She had increased pain yesterday as moving in and out of bed to void with [place] removed in morning and following a shower. Reports uncomfortable night with pain of thoracic spine while laying against it - more comfortable in bariatric chair today. [place] Toradol helped back pain. DIVE SUPERVISOR use Her leukocytosis is now resolved (12k yesterday) - I suspect the leukocytosis to be related to surgery as well as Dexamethasone, as she has no evidence for an infection. 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 H&H [...] is agreeable to closer to home in [place]. Social work consulted. Family at bedside and supportive ----- PCP: Dr. Harjinder Braswell [phone] Urology: Dr. Earnest Herrera Pharmacy: [facility] ([facility] [phone] DME: Nebulizer Insurer: [employer] Medicare Family: / POA Healthcare - Kin Hunt [phone] Dtr. / 1st Alt. POA - Annita Sin [phone] / [phone] Dtr. / 2nd Alt. POA - Dionne Wilkes [phone] Follow Up: Dr. Huber Tamayo (Neurosurgery) 15-Dec-2018 14:00 [facility] [address], [facility] Signature/Cosignature/Attes tation: Provider/Team Contact Info-Pager Miriam Carlos CNP # [id number] Comments/ Additional Findings Trish Hunt is a 73 year old female former smoker w/ PMHx significant for HTN, Impaired Fasting Glucose, Hyperlipidemia, Peripheral Neuropathy, Hypothyroidism, GERD, Morbid Obesity and Recent Spinal Cord Stimulator Implant who is transferred to [facility] 11/12/18 from [facility] after presenting with intractable progressive back pain with SOB Patient sitting comfortably in chair Surgical scar healing well. Chest bilaterally clear. Bilateral pedal edema present []Stage IV metastatic lung adenocarcinoma. MRI of brain did not show any metastasis Outpatient follow-up with oncology and radiation oncology []T10 PATHOLOGIC FRACTURE w/ CORD COMPRESSION: Status post thoracic decompression and fusion. Continue pain management with cyclobenzaprine Dilaudid DIVE SUPERVISOR, Toradol and Tylenol Outpatient this is a follow-up Surgical scar healing well []left hip pain Xray hip pending Electronic Signatures: Nessa Carlos (TRAVEL AGENCY MANAGER-SCREENING TECHNICIAN) (Signed 28-Nov-2018 16:52) Authored: Service, Subjective Data, Objective Data, Assessment and Plan, Signature/Cosignature/Attes tation Grazyna Bunch) (Signed 28-Nov-2018 18:33) Authored: Signature/Cosignature/Attes tation Co-Signer: Service, Subjective Data, Objective Data, Assessment and Plan, Signature/Cosignature/Attes tation Last Updated: 28-Nov-2018 18:33 by Grazyna Bunch) Normal [facility] [place] BASIC METABOLIC PANELon 11-16 Anion gap molar conc 14 mmol/L Normal 10 - 20 [facility] [place] Comment on above: Performed By: #### C BCDF #### [facility] [address] [place] [address] Calcium mass conc 8.4 mg/dL Low 8.6 - 10.6 [facility] [place] Comment on above: Performed By: #### C BCDF #### [facility] [address] [place] [address] Chloride molar conc 105 mmol/L Normal 98 - 107 [facility] [place] Comment on above: Performed By: #### C BCDF #### [facility] [address] [place] [address] Creatinine mass conc 0.78 mg/dL Normal 0.50 - 1.05 [facility] [place] Comment on above: Performed By: #### C BCDF #### [facility] [address] [place] [address] GFR- AM. >60 Normal >60 [facility] [place] Comment on above: Result Comment: CALC ULATIONS OF ESTIMATED GFR ARE PERFORMED USING THE MDRD STUDY EQUATION FOR THE IDMS-TRACEABLE CREATININE METHODS. CLIN CHEM 2007;53:766-72 Performed By: #### C BCDF #### [facility] [address] [place] [address] GFR-NON AM. >60 Normal >60 [facility] [place] Comment on above: Performed By: #### C BCDF #### [facility] [address] [place] [address] Glucose mass conc 79 mg/dL Normal 74 - 99 [facility] [place] Comment on above: Performed By: #### C BCDF #### [facility] [address] [place] [address] HCO3 molar conc (Bld) 25 mmol/L Normal 21 - 32 [facility] [place] Comment on above: Performed By: #### C BCDF #### [facility] [address] [place] [address] Potassium molar conc 3.7 mmol/L Normal 3.5 - 5.3 [facility] [place] Comment on above: Performed By: #### C BCDF #### [facility] [address] [place] [address] Sodium molar conc 140 mmol/L Normal 136 - 145 [facility] [place] Comment on above: Performed By: #### C BCDF #### [facility] [address] [place] [address] Urea nitrogen mass conc 24 mg/dL High 6 - 23 [facility] [place] Comment on above: Performed By: #### C BCDF #### [facility] [address] [place] [address] CBCon 11-27-2018 Erythrocyte distribution width Ratio (RBC) 13.2 % Normal 11.5 - 14.5 [facility] [place] Comment on above: Performed By: #### C BCDF #### [facility] [address] [place] [address] Hematocrit Volume Fraction (Bld) 28.5 % Low 36.0 - 46.0 [facility] [place] Comment on above: Performed By: #### C BCDF #### [facility] [address] [place] [address] Hemoglobin mass conc (Bld) 9.6 g/dL Low 12.0 - 16.0 [facility] [place] Comment on above: Performed By: #### C BCDF #### [facility] [address] [place] [address] MCHC mass conc (RBC) 33.7 g/dL Normal 32.0 - 36.0 [facility] [place] Comment on above: Performed By: #### C BCDF #### [facility] [address] [place] [address] MCV Entitic volume (RBC) 90 fL Normal 80 - 100 [facility] [place] Comment on above: Performed By: #### C BCDF #### [facility] [address] [place] [address] Nucleated RBC/100 WBC Ratio (Bld) 0.0 /100 WBC Normal 0.0-0.0 [facility] [place] Comment on above: Performed By: #### C BCDF #### [facility] [address] [place] [address] Platelets #/vol (Bld) 303 10*3/uL Normal 150 - 450 [facility] [place] Comment on above: Performed By: #### C BCDF #### [facility] [address] [place] [address] RBC #/vol (Bld) 3.16 x10E12/L Low 4.00 - 5.20 [facility] [place] Comment on above: Performed By: #### C BCDF #### [facility] [address] [place] [address] WBC #/vol (Bld) 11.8 10*3/uL High 4.4 - 11.3 [facility] [place] Comment on above: Performed By: #### C BCDF #### [facility] [address] [place] [address] Clinical Event Note-Neurosur alicia Sign Offon 11-27-2018 Clinical Event Note-Neurosurgery Sign Off Event: Topic: Neurosurgery Sign Off Details: Patient drains removed on 11/27. Neurosurgery will sign off. Patient can f/u as an OP w/ Dr. Tamayo 2 weeks from the operative date. Bill Sorter has been emailed for scheduling. Provider / Team Contact Information: Provider/Team Contact Info-Pager Number: [phone] Electronic Signatures: Rogelio Lester ( (Resident)) (Signed 27-Nov-2018 08:23) Authored: Event, Provider / Team Contact Information Last Updated: 27-Nov-2018 08:23 by Rogelio Lester ( (Resident)) Normal [facility] [place] Daily Progress Note-Medicine on 11-27-2018 Protein mass [...] Cholecystectomy - L4-L5 Decompression 1999 T PRBPSpO2 [id number]/5396% Date/Time11/27 13:5911/27 13: 13:5911/27 13: 13:59 Range(35.7C - 37.1C ) (73 [...] Medication: Medications: Continuous Medications ----- 1. HYDROmorphone DIVE SUPERVISOR 25 mg/ NaCL 0.9% 50 mL: 25 mg IV DIVE SUPERVISOR Scheduled Medications ----- 1. Acetaminophen: 975 mg [...] laboratory results: Complete Blood Count Trending View [id number] 09:45:00 26-Nov-2018 05:08:00 White Blood Cell Count11.8 H 14.6 H Nucleated Erythrocyte Count0.0 0.0 Red Blood Cell Count3.16 L 3.07 L HGB9.6 L 9.2 L HCT28.5 L 29.3 L MCV90 95 MCHC33.7 31.4 L FIO908 262 RDW-CV13.2 13.3 Basic Metabolic Panel 27-Nov-2018 [...] Cord Stimulator Implant who is [facility] from [facility] after presenting with intractable progressive back pain [...] and chest pain with deep breath at [place] ER presentation 11/11/18. A CT of the [...] fusion patient desires to do this at [facility] - await Surgical Pathology from Thoracic Decompression 11/23/18 for confirmation - schedule follow up with Oncology and Radiation Oncology at [facility] in three weeks 2) T10 PATHOLOGIC FRACTURE w/ CORD COMPRESSION: Presumed metastasis r/t # 1. Presented to [facility] 11/11/18 with intractable progressive back pain [...] A CT Chest, Abdomen and Pelvis at [place] showed a suspected Pathologic fracture of the [...] given Decadron with request for transfer to [facility] for Neurosurgery evaluation. Neurosurgery consulted. CT Thoracic and Lumbar Spine as well as MRI of entire spine done and on 11/23/18. Significant Pain was an issue and Palliative care consulted and Dexamethasone as well as a dose of Pamidronate given. She underwent a Thoracic Decompression and Fusion with back pain much improved. Post-operative thoracic x-ray done 11/26/18. She is on a DIVE SUPERVISOR of Hydromorphone. Hemovacs fell out during night. [...] for now of pain meds - continue DIVE SUPERVISOR Hydromorphone to 0.1 mg with 10 minute [...] is agreeable to closer to home in [place]. Social work consulted. Family at bedside and supportive ----- PCP: Dr. Harjinder Braswell [phone] Urology: Dr. Earnest Herrera Pharmacy: [facility] ([facility] [phone] DME: Nebulizer Insurer: [employer] Medicare Family: / POA Healthcare - Kin Hunt [phone] Dtr. / 1st Alt. POA - Annita Sin [phone] / [phone] Dtr. / 2nd Alt. POA - Dionne Wilkes [phone] Follow Up: Dr. Huber Tamayo (Neurosurgery) 15-Dec-2018 14:00 [facility] [address], [address] [facility] Signature/Cosignature/Attes tation: Provider/Team Contact Info-Pager Miriam Carlos CNP # [id number] Comments/ Additional Findings Trish Hunt is a 73 year old female former smoker w/ PMHx significant for HTN, Impaired Fasting Glucose, Hyperlipidemia, Peripheral Neuropathy, Hypothyroidism, GERD, Morbid Obesity and Recent Spinal Cord Stimulator Implant who is transferred to [facility] 11/[facility]/18 from [facility] after presenting with intractable progressive back pain with SOB Patient sitting comfortably in bed. Surgical scar healing well. Chest bilaterally clear. Bilateral pedal edema present []Stage IV metastatic lung adenocarcinoma. MRI of brain did not show any metastasis Outpatient follow-up with oncology and radiation oncology []T10 PATHOLOGIC FRACTURE w/ CORD COMPRESSION: Status post thoracic decompression and fusion. Continue pain management with cyclobenzaprine Dilaudid DIVE SUPERVISOR, Toradol and Tylenol Outpatient this is a follow-up Patient still has stitches where the drain was placed, discuss with neurosurgery Surgical scar healing well Electronic Signatures: Nessa Carlos (TRAVEL AGENCY MANAGER-SCREENING TECHNICIAN) (Signed 27-Nov-2018 19:27) Authored: Service, Subjective Data, Objective Data, Assessment and Plan, Signature/Cosignature/Attes tation Grazyna Bunch) (Signed 27-Nov-2018 18:22) Authored: Signature/Cosignature/Attes tation Last Updated: 27-Nov-2018 19:27 by Nessa Carlos (TRAVEL AGENCY MANAGER-SCREENING TECHNICIAN) Normal [facility] [place] Daily Progress Note-Charity weldon 11-27-2018 Protein mass conc Service: Neurosurger y Subjective Data: TRISH HUNT is a 73 year old Female who is Hospital Day # 15 and POD #3 for T10-11 transpedicular decompression of tumor, T7-L2 instrumented fusion. Overnight Events: Patient had an uneventful night. Objective Data: Objective Information: T PRBPSpO2 [id number]/6794% Date/Time11/26 21: 21: 21: 21: 21:29 Range(35.5C [...] Updated: 27-Nov-2018 07:49 by Cliff Mcgarry) Normal [facility] [place] Daily Progress Note-Palliati ve Careon 11-27-2018 Protein mass conc Service: Palliative Care Subjective Data: TRISH HUNT is a 73 year old Female who is Hospital Day # 16 and POD #4 for T10-11 transpedicular decompression of tumor, T7-L2 instrumented fusion. Additional Information: Interval history: Pt's pain well controlled overnight. I discussed with bedside nursing and Nessa Carlos-primary team PLUMBER PIPE FITTING 18 hrs dilaudid iv usage via DIVE SUPERVISOR 4.1 mg mg 24/24 delivered/demands subjective: Pt's pain was well controlled today morning at rest , intermittent dull ,non-radiating, aggravated on movement to 3/10, relieved with rest and with dilaudid clinic cma dosing. Pt took a shower around noon and spent long time in shower and at the time of my visit c/o pain intermittent 6/10, dull, non-radiating, aggravated on movement and partially releived with dilaudid via clinic cma. Primary team PLUMBER PIPE FITTING Nessa walked into the room during my visit. Objective Data: Objective Information: T PRBPSpO2 [id number]/7698% Date/Time11/27 4: 4: 4: 4: 4:32 Range(35.7C [...] Medication: Medications: Continuous Medications ----- 1. HYDROmorphone DIVE SUPERVISOR 25 mg/ NaCL 0.9% 50 mL: 25 mg IV DIVE SUPERVISOR Scheduled Medications ----- 1. Acetaminophen: 975 mg [...] lung base. The study was interpreted at [facility]. MRI T Spine w/wo Contrast [Nov 26 2018 5:09PM] Assessment and Plan: Assessment: 73 year old F with h/o HTN, DM2 with morbid obesity, hypothyroidism, HLD, transferred to [facility] from OSH with back pain due to [...] out -18 hrs dilaudid iv usage via DIVE SUPERVISOR 4.1 mg mg 24/24 delivered/demands-= 80 mg [...] after giving toradol, then consider stopping dilaudid DIVE SUPERVISOR and starting as needed pain meds as follows: oxycodone 5 mg every 3 hours as needed pain dilaudid 0.1 mg iv every 2 hours as needed pain uncontrolled with by mouth oxycodone. - continue miralax daily for prophylaxis for opiate related constipation. Above discussed in detail with PLUMBER PIPE FITTING Nessa Carlos and bedside nursing and family at the bedside-daughter and grand-daughter Thank you for inviting us to participate in the care of this patient. Please page [phone] with any questions or queries. Palliative Medicine will continue to follow. Signature/Cosignature/Attes tation: Provider/Team Contact Info-Pager [phone] Comments/ Additional Findings Time: I spent 35 minutes with this patient. Greater than 50% of this time was spent in counselling/educating and/or coordination of care and medication regimen with pt and/or family and/or primary team and/or oil field worker and/or bedside nursing. Electronic Signatures: Marta Cannon) (Signed 27-Nov-2018 14:02) Authored: Service, Subjective Data, Objective Data, Assessment and Plan, Signature/Cosignature/Attes tation Last Updated: 27-Nov-2018 14:02 by Marta Cannon) Normal [facility] [place] CBCon 11-26-2018 Erythrocyte distribution width Ratio (RBC) 13.3 % Normal 11.5 - 14.5 [facility] [place] Comment on above: Performed By: #### C BCDF #### [facility] [address] [place] [address] Hematocrit Volume Fraction (Bld) 29.3 % Low 36.0 - 46.0 [facility] [place] Comment on above: Performed By: #### C BCDF #### [facility] [address] [place] [address] Hemoglobin mass conc (Bld) 9.2 g/dL Low 12.0 - 16.0 [facility] [place] Comment on above: Performed By: #### C BCDF #### [facility] [address] [place] [address] MCHC mass conc (RBC) 31.4 g/dL Low 32.0 - 36.0 [facility] [place] Comment on above: Performed By: #### C BCDF #### [facility] [address] [place] [address] MCV Entitic volume (RBC) 95 fL Normal 80 - 100 [facility] [place] Comment on above: Performed By: #### C BCDF #### [facility] [address] [place] [address] Nucleated RBC/100 WBC Ratio (Bld) 0.0 /100 WBC Normal 0.0-0.0 [facility] [place] Comment on above: Performed By: #### C BCDF #### [facility] [address] [place] [address] Platelets #/vol (Bld) 262 10*3/uL Normal 150 - 450 [facility] [place] Comment on above: Performed By: #### C BCDF #### [facility] [address] [place] [address] RBC #/vol (Bld) 3.07 x10E12/L Low 4.00 - 5.20 [facility] [place] Comment on above: Performed By: #### C BCDF #### [facility] [address] [place] [address] WBC #/vol (Bld) 14.6 10*3/uL High 4.4 - 11.3 [facility] [place] Comment on above: Performed By: #### C BCDF #### [facility] [address] [place] [address] Clinical Event Note-Palliati ve careon 11-26-2018 Clinical Event Note-Palliative care Event: Topic: Palliative care Details: Attempted follow up with patient, she was off the unit for MRI. Patient remains on DIVE SUPERVISOR for post-op pain. Given her past difficulty with MRIs would hesitate to discontinue the DIVE SUPERVISOR too soon after imaging study. Also, without the DIVE SUPERVISOR numbers/24h opioid requirement cannot predict a PO regimen. Would be disinclined to start long acting as pain will likely continue to improve, but patient may benefit from a scheduled short acting for a short time then transition to PRN only. Will ask on-call Palliative Care provider to follow up with patient 11/27 for DIVE SUPERVISOR transition. Call with questions. Provider / Team Contact Information: Provider/Team Contact Info-Pager Number: [phone] Electronic Signatures: Annette Keller) (Signed 26-Nov-2018 14:43) Authored: Event, Provider / Team Contact Information Last Updated: 26-Nov-2018 14:43 by Annette Keller) Normal [facility] [place] Daily Progress Note-Medicine on 11-26-2018 Protein mass [...] Cholecystectomy - L4-L5 Decompression 1999 T PRBPSpO2 [id number]/8497% Date/Time11/26 16: 16: 16: 16: 16:30 Range(35.5C [...] laboratory results: Complete Blood Count Trending View [id number] 05:08:00 25-Nov-2018 09:49:00 White Blood Cell Count14.6 H 15.3 H Nucleated Erythrocyte Count0.0 0.0 Red Blood Cell Count3.07 L 3.04 L HGB9.2 L 9.4 L HCT29.3 L 30.5 L MCV95 100 MCHC31.4 L 30.8 L JBI757 199 RDW-CV13.3 13.5 11/15/18: FINAL CYTOLOGICAL INTERPRETATION [...] Cord Stimulator Implant who is [facility]18 from [facility] after presenting with intractable progressive back pain with SOB and found on imaging to have a lung mass with adenopathy and suspected spinal metastasis for neurosurgical evaluation and further care. . PLAN: In Shared Visit with Dr. Rocky Oquendo 1) STAGE IV METASTATIC LUNG ADENOCARCINOMA: Former smoker. Reported SOB and chest pain with deep breath at [place] ER presentation 11/11/18. A CT of the [...] fusion patient desires to do this at [facility] - await Surgical Pathology from Thoracic Decompression 11/23/18 for confirmation - schedule follow up with Oncology and Radiation Oncology at [facility] in one month 2) T10 PATHOLOGIC FRACTURE w/ CORD COMPRESSION: Presumed metastasis r/t # 1. Presented to [facility] 11/11/18 with intractable progressive back pain [...] A CT Chest, Abdomen and Pelvis at [place] showed a suspected Pathologic fracture of the [...] given Decadron with request for transfer to [facility] for Neurosurgery evaluation. Neurosurgery consulted. CT Thoracic and Lumbar Spine as well as MRI of entire spine done and on 11/23/18 she underwent a Thoracic Decompression and Fusion with back pain much improved. Post-operative thoracic x-ray done 11/26/18. She is on a DIVE SUPERVISOR of Hydromorphone. Hemovac with 300 ml output total recorded yesterday. Today she underwent an MRI of the Spine under Anesthesia. - await Surgical Pathology for confirmation of # 1 - continue Physical Therapy - discontinue Decadron - continue DIVE SUPERVISOR Hydromorphone to 0.1 mg with 10 minute [...] is agreeable to closer to home in [place]. Social work consulted. Family at bedside and supportive ----- PCP: Dr. Hrajinder Braswell [phone] Urology: Dr. Earnest Herrera Pharmacy: [facility] ([place]) [phone] DME: [employer] Insurer: [employer] Medicare Family: / POA Healthcare - Kin Hunt [phone] Dtr. / 1st Alt. POA HC - Annita Christiannington [phone] / [phone] Dtr. / 2nd Alt. POA - Dionne Morse Chugn [phone] Follow Up: Dr. Huber Tamayo (Neurosurgery) 15-Dec-2018 14:00 [facility] [address] [address] [facility] Signature/Cosignature/Attes tation: Provider/Team Contact Info-Pager Miriam Carlos CNP # [id number] Electronic Signatures: Nessa Carlos (TRAVEL AGENCY MANAGER-SCREENING TECHNICIAN) (Signed 26-Nov-2018 21:03) Authored: Service, Subjective Data, Objective Data, Assessment and Plan, Signature/Cosignature/Attes tation Last Updated: 26-Nov-2018 21:03 by Nessa Carlos (TRAVEL AGENCY MANAGER-SCREENING TECHNICIAN) Normal [facility] [place] Protein mass conc Service: Medicine Subjective Data: TRISH HUNT is a 73 year old Female who is Hospital Day # 15 and POD #3 for T10-11 transpedicular decompression of tumor, T7-L2 instrumented fusion. I saw the patient, reviewed labs, images, medications, reports and discussed with the SCREENING TECHNICIAN. Patient was content with the progress of [...] all. Objective Data: Objective Information: T PRBPSpO2 [id number]/8497% Date/Time11/26 16: 16: 16: 16: 16:30 Range(35.5C [...] recent labs 30.5 and discussed with the SCREENING TECHNICIAN. WBC: 10.2 -> 16.1 -> 14.9 -> 15.3 -> 14.6 Hctr: 43.9 -> 24.6 -> 28.1 -> 30.5 -> 29.3 Platelet: 324 -> 231 -> 211 -> 199 -> 262 BUN/creatinine: 27/0.74 -> 28/0.86 -> 22/0.66 Anatomic pathology report reviewed and discussed on previous days. I reviewed the imaging, I read the report and discussed with the SCREENING TECHNICIAN. MRI spine reading pending. AP and lateral [...] reviewed the medications and discussed with the SCREENING TECHNICIAN. 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 Ortho team performed T10-11 transpedicular decompression of metastatic spine tumor, T7-L2 posterior instrumentation and fusion with allograft, use of intraoperative O arm, use of C arm fluoroscopy, use of ultrasound, placement of 2 subfascial drains Pain has been managed optimally with DIVE SUPERVISOR. Intention is to change DIVE SUPERVISOR to oral hydromorphone. Palliative care team is [...] Last Updated: 26-Nov-2018 17:02 by Rocky Oquendo) Normal [facility] [place] Daily Progress Note-Neurosur geryon 11-26-2018 Protein mass conc Service: Neurosurger y Subjective Data: TRISH HUNT is a 73 year old Female who is Hospital Day # 14 and POD #2 for T10-11 transpedicular decompression of tumor, T7-L2 instrumented fusion. Overnight Events: Patient had an uneventful night. Objective Data: Objective Information: T PRBPSpO2 Value36.465630731/7996% Date/Time11/25 14: 14: 14: 14: 14:24 Range(36.1C [...] PT/OT SNF Signature/Cosignature/Attes tation: Provider/Team Contact Info-Pager [phone] Attending AttestationI saw and evaluated the patient. [...] Objective Data, Assessment and Plan, Signature/Cosignature/Attes tation Huber Tamayo) (Signed 27-Nov-2018 12:36) Authored: Signature/Cosignature/Attes clifford Co-Signer: Service, Subjective Data, Objective Data, Assessment and Plan, Signature/Cosignature/Attes tation Grazyna Lara (Resident)) (Signed 26-Nov-2018 07:26) Authored: Assessment and Plan Last Updated: 27-Nov-2018 12:36 by Huber Tamayo) Normal [facility] [place] GLUCOSE-POCTon 11-26-2018 Glucose mass conc 115 mg/dL High 74 - 99 [facility] [place] Comment on above: Performed By: #### C BCDF #### [facility] [address] [place] [address] NR MR T-SPINE WO/Won 019 NR MR T-SPINE WO/W Patient Name: TRISH HUNT STUDY: MR T-SPINE WO/W; 11/26/2018 2:10 pm INDICATION: Signs/Symptoms: s/p T10-T11 decompression of tumor and T7-L2 fusion, Lie Flat: Yes, Pre Med: Yes, BMI: Yes, BiPAP: No, O2: No. COMPARISON: MRI dated 11/15/2018 ACCESSION NUMBER(S): [id number] ORDERING CLINICIAN: JORDAN SAUNDERS TECHNIQUE: Sagittal STIR, [...] lung base. The study was interpreted at [facility]. Electronically signed by: ADRIANA DIETZ MD Normal [facility] [place] CBCon 11-25-2018 Erythrocyte distribution width Ratio (RBC) 13.5 % Normal 11.5 - 14.5 [facility] [place] Comment on above: Performed By: #### U A #### [facility] [address] [place] [address] Hematocrit Volume Fraction (Bld) 30.5 % Low 36.0 - 46.0 [facility] [place] Comment on above: Performed By: #### U A #### [facility] [address] [place] [address] Hemoglobin mass conc (Bld) 9.4 g/dL Low 12.0 - 16.0 [facility] [place] Comment on above: Performed By: #### U A #### [facility] [address] [place] [address] MCHC mass conc (RBC) 30.8 g/dL Low 32.0 - 36.0 [facility] [place] Comment on above: Performed By: #### U A #### [facility] [address] [place] [address] MCV Entitic volume (RBC) 100 fL Normal 80 - 100 [facility] [place] Comment on above: Performed By: #### U A #### [facility] [address] [place] [address] Nucleated RBC/100 WBC Ratio (Bld) 0.0 /100 WBC Normal 0.0-0.0 [facility] [place] Comment on above: Performed By: #### U A #### [facility] [address] [place] [address] Platelets #/vol (Bld) 199 10*3/uL Normal 150 - 450 [facility] [place] Comment on above: Performed By: #### U A #### [facility] [address] [place] [address] RBC #/vol (Bld) 3.04 x10E12/L Low 4.00 - 5.20 [facility] [place] Comment on above: Performed By: #### U A #### [facility] [address] [place] [address] WBC #/vol (Bld) 15.3 10*3/uL High 4.4 - 11.3 [facility] [place] Comment on above: Performed By: #### U A #### [facility] [address] [place] [address] Daily Progress Note-Medicine on 11-25-2018 Protein mass [...] Cholecystectomy - L4-L5 Decompression 1999 T PRBPSpO2 Value36.161095929/7996% Date/Time11/25 14: 14: 14: 14: 14:24 Range(36.1C [...] Medication: Medications: Continuous Medications ----- 1. HYDROmorphone DIVE SUPERVISOR 25 mg/ NaCL 0.9% 50 mL: 25 mg IV DIVE SUPERVISOR Scheduled Medications ----- 1. Acetaminophen: 975 mg [...] laboratory results: Complete Blood Count Trending View [id number] 09:49:00 24-Nov-2018 09:32:00 White Blood Cell Count15.3 H 14.9 H Nucleated Erythrocyte Count0.0 0.0 Red Blood Cell Count3.04 L 2.92 L HGB9.4 L 8.9 L HCT30.5 L 28.1 L FGT704 96 MCHC30.8 L 31.7 L CDJ696 211 RDW-CV13.5 13.2 Renal Function Panel Trending View [id number] 09:49:00 24-Nov-2018 06:10:00 Glucose, Eyhnp284 H 99 NA140 141 K4.1 4.0 CL106 105 Bicarbonate, Serum24 25 Anion Gap, Serum14 15 BUN22 25 H CREAT0.66 0.86 GFR-Non >60 >60 GFR->60 >60 Calcium, Serum8.5 L 8.3 L Phosphorus, Serum3.2 4.7 ALB3.1 L 3.0 L FINE NEEDLE ASPIRATION 11 RS LYMPH NODE Accession Number: [id number] Special Oncology Report Date Ordered: 11/22/2018 Status: [...] Cord Stimulator Implant who is transferred [facility] 11[facility] from [facility] after presenting with intractable progressive back pain with SOB and found on imaging to have a lung mass with adenopathy and suspected spinal metastasis for neurosurgical evaluation and further care. . PLAN: In Shared Visit with Dr. Rocky Mcclainbennie Hunt is a 73 year old female former smoker w/ PMHx significant for HTN, Impaired Fasting Glucose, Hyperlipidemia, Peripheral Neuropathy, Hypothyroidism, GERD, Morbid Obesity and Recent Spinal Cord Stimulator Implant who is transferred to [facility] 11/12/18 from [facility] after presenting with intractable progressive back pain with SOB and found on imaging to have a lung mass with adenopathy and suspected spinal metastasis for neurosurgical evaluation and further care. . 1)STAGE IV METASTATIC LUNG ADENOCARCINOMA: Former smoker. Reported SOB and chest pain with deep breath at [place] ER presentation 11/11/18. A CT of the [...] fusion patient desires to do this at [facility] - await Surgical Pathology from Thoracic Decompression 11/23/18 for confirmation - schedule follow up with Oncology and Radiation Oncology at [facility] in one month 2) T10 PATHOLOGIC FRACTURE: Presumed metastasis r/t # 1. Presented to [facility] 11/11/18 with intractable progressive back pain [...] A CT Chest, Abdomen and Pelvis at [place] showed a suspected Pathologic fracture of the [...] given Decadron with request for transfer to [facility] for Neurosurgery evaluation. Neurosurgery consulted and did find evidence of cord compression. CT Thoracic and Lumbar Spine as well as MRI of entire spine done and on 11/23/18 she underwent a Thoracic Decompression and Fusion with back pain much improved. Post-operative thoracic x-ray done yesterday. She is on a DIVE SUPERVISOR of Hydromorphone post-operatively with ~ 7 mg utilized in a 22 hours period. Hemovac with 450 ml output total recorded yesterday. - await Surgical Pathology for confirmation of # 1 - continue Physical Therapy - decrease Decadron to 4 mg daily with plan to wean off - decrease DIVE SUPERVISOR Hydromorphone to 0.1 mg with 10 minute [...] is agreeable to closer to home in [place]. Social work consulted. Family at bedside and supportive ----- PCP: Dr. Harjinder Braswell [phone] Urology: Dr. Earnest Herrera Pharmacy: [facility] ([place]) [phone] DME: [employer] Insurer: [employer] Medicare Family: / POA Healthcare - Kin Hunt [phone] Dtr. / 1st Alt. POA HC - Aninta Sin [phone] / [phone] Dtr. / 2nd Alt. POA HC - Dionne Wilkes [phone] Follow Up: Dr. Huber Tamayo (Neurosurgery) 15-Dec-2018 14:00 [facility] [address] Signature/Cosignature/Attes tation: Provider/Team Contact Info-Pager Miriam Carlos CNP # [id number] Electronic Signatures: Nessa Carlos (TRAVEL AGENCY MANAGER-SCREENING TECHNICIAN) (Signed 26-Nov-2018 00:54) Authored: Service, Subjective Data, Objective Data, Assessment and Plan, Signature/Cosignature/Attes tation Last Updated: 26-Nov-2018 00:54 by Nessa Carlos (TRAVEL AGENCY MANAGER-SCREENING TECHNICIAN) Normal [facility] [place] Protein mass conc Service: Medicine Subjective Data: TRISH HUNT is a 73 year old Female who is Hospital Day # 14 and POD #2 for T10-11 transpedicular decompression of tumor, T7-L2 instrumented fusion. I saw the patient, reviewed labs, images, medications, reports and discussed with the SCREENING TECHNICIAN. No fever or desaturation reported past 24h. She has been doing quite well with the DIVE SUPERVISOR (for ~ 20h she used 7.5mg hydromorphone). [...] conversation. Objective Data: Objective Information: T PRBPSpO2 Value36.158945498/7996% Date/Time11/25 14: 14: 14: 14: 14:24 Range(36.1C [...] recent labs 30.5 and discussed with the SCREENING TECHNICIAN. WBC: 10.2 -> 16.1 -> 14.9 -> 15.3 Hctr: 43.9 -> 24.6 -> 28.1 -> 30.5 Platelet: 324 -> 231 -> 211 -> 199 BUN/creatinine: 27/0.74 -> 28/0.86 -> 22/0.66 Anatomic pathology report reviewed and discussed on previous days. I reviewed the imaging, I read the report and discussed with the SCREENING TECHNICIAN. AP and lateral view of the thoracic [...] reviewed the medications and discussed with the SCREENING TECHNICIAN. 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 Ortho team performed: T10-11 transpedicular decompression of metastatic spine tumor, T7-L2 posterior instrumentation and fusion with allograft, use of intraoperative O arm, use of C arm fluoroscopy, use of ultrasound, placement of 2 subfascial drains Pain has been managed optimally with DIVE SUPERVISOR. Will change the lockout time to 10min, [...] Updated: 25-Nov-2018 15:48 by Rocky Oquendo) Normal [facility] [place] Daily Progress Note-Neurosprakash weldon 11-25-2018 Protein mass conc Service: Neurosurger y Subjective Data: TRISH HUNT is a 73 year old Female who is Hospital Day # 13 and POD #1 for T10-11 transpedicular decompression of tumor, T7-L2 instrumented fusion. Objective Data: Objective Information: T PRBPSpO2 Value36.48035927/5894% Date/Time11/24 21: 21: 21: 21: 21:50 Range(36.4C - 37.1C [...] Signatures: Huber Tamayo) (Signed 25-Nov-2018 14:38) Authored: Signature/Cosignature/Attes tation Co-Signer: Service, Subjective Data, Objective Data, Assessment and Plan, SCIP Measures, Signature/Cosignature/Attes tation Grazyna Lara (Resident)) (Signed 25-Nov-2018 06:54) Authored: Service, Subjective Data, Objective Data, Assessment and Plan, SCIP Measures, Signature/Cosignature/Attes tation Last Updated: 25-Nov-2018 14:38 by Huber Tamayo) Normal [facility] [place] Daily Progress Note-Palliati ve Careon 11-25-2018 Protein [...] day Objective Data: Objective Information: T PRBPSpO2 Value36.84643956/6595% Date/Time11/25 10: 10: 10: 10: 10:34 Range(36.1C [...] Medication: Medications: Continuous Medications ----- 1. HYDROmorphone DIVE SUPERVISOR 25 mg/ NaCL 0.9% 50 mL: 25 mg IV DIVE SUPERVISOR Scheduled Medications ----- 1. Acetaminophen: 975 mg [...] obesity, hypothyroidism, HLD, presenting as transfer from [facility] for back pain due to spinal lesions, [...] fully established. Good relief - continue hydromorphone DIVE SUPERVISOR (0.1mg q6min dosing) especially during perioperative period [...] Please contact us for any questions via [employer] or pager [phone]. Nessa Mercado Internal Medicine PGY-1 Signature/Cosignature/Attes tation: [...] above attestation) on 25-Nov-2018 Comments/ Additional Findings DIVE SUPERVISOR interrogated at 1623. 24h use: 8.7 mg with 87/89 dose/demand; 12h use 3.9 mg with 39/39 dose/demand. Opioid need continues to decrease post-op. Should be able to transition to non-DIVE SUPERVISOR based or oral regimen soon. Call with questions. [id number] Electronic Signatures: Nessa Mercado (Resident)) (Signed 25-Nov-2018 14:54) Authored: Service, Subjective Data, Objective Data, Assessment and Plan, Signature/Cosignature/Attes tation Annette Keller) (Signed 26-Nov-2018 10:06) Authored: Service, Signature/Cosignature/Attes tation Co-Signer: Service, Subjective Data, Objective Data, Assessment and Plan, Signature/Cosignature/Attes tation Last Updated: 26-Nov-2018 10:06 by Annette Keller) Normal [facility] [place] RENAL FUNCTION PANELon 11-25 Albumin mass conc 3.1 g/dL Low 3.4 - 5.0 [facility] [place] Comment on above: Performed By: #### U A #### [facility] [address] [place] [address] Anion gap molar conc 14 mmol/L Normal 10 - 20 [facility] [place] Comment on above: Performed By: #### U A #### [facility] [address] [place] [address] Calcium mass conc 8.5 mg/dL Low 8.6 - 10.6 [facility] [place] Comment on above: Performed By: #### U A #### [facility] [address] [place] [address] Chloride molar conc 106 mmol/L Normal 98 - 107 [facility] [place] Comment on above: Performed By: #### U A #### [facility] [address] [place] [address] Creatinine mass conc 0.66 mg/dL Normal 0.50 - 1.05 [facility] [place] Comment on above: Performed By: #### U A #### [facility] [address] [place] [address] GFR- AM. >60 Normal >60 [facility] [place] Comment on above: Result Comment: CALC ULATIONS OF ESTIMATED GFR ARE PERFORMED USING THE MDRD STUDY EQUATION FOR THE IDMS-TRACEABLE CREATININE METHODS. CLIN CHEM 2007;53:766-72 Performed By: #### U A #### [facility] [address] [place] [address] GFR-NON AM. >60 Normal >60 [facility] [place] Comment on above: Performed By: #### U A #### [facility] [address] [place] [address] Glucose mass conc 101 mg/dL High 74 - 99 [facility] [place] Comment on above: Performed By: #### U A #### [facility] [id number] [place] [address] HCO3 molar conc (Bld) 24 mmol/L Normal 21 - 32 [facility] [place] Comment on above: Performed By: #### U A #### [facility] [address] [place] [address] Phosphate mass conc 3.2 mg/dL Normal 2.5 - 4.9 [facility] [place] Comment on above: Result Comment: The performance characteristics of phosphorus testing in heparinized plasma have been validated by the individual laboratory site where testing is performed. Testing on heparinized plasma is not approved by the FDA; however, such approval is not necessary. Performed By: #### U A #### [facility] [address] [place] [address] Potassium molar conc 4.1 mmol/L Normal 3.5 - 5.3 [facility] [place] Comment on above: Performed By: #### U A #### [facility] [address] [place] [address] Sodium molar conc 140 mmol/L Normal 136 - 145 [facility] [place] Comment on above: Performed By: #### U A #### [facility] [address] [place] [address] Urea nitrogen mass conc 22 mg/dL Normal 6 - 23 [facility] [place] Comment on above: Performed By: #### U A #### [facility] [address] [place] [address] BN SPINE, THORACIC, MIN 4 EWSon 11-24-2018 BN SPINE, THORACIC, MIN 4 VIEWS Patient Name: TRISH HUNT STUDY: BN SPINE, THORACIC, MIN 4 VIEWS; 11/24/2018 12:10 pm INDICATION: Signs/Symptoms: s/p T10-T11 decompression and T7-L2 fusion. COMPARISON: T-spine radiograph dated 11/22/2018, CT dated 11/14/2018. ACCESSION NUMBER(S): [id number] ORDERING CLINICIAN: JORDAN SAUNDERS FINDINGS: AP and [...] as stated. This study was interpreted at [facility], [place], [place]. Electronically signed by: WELLINGTON VIDAL MD Normal [facility] [place] CBCon 11-24-2018 Erythrocyte distribution width Ratio (RBC) 13.2 % Normal 11.5 - 14.5 [facility] [place] Comment on above: Performed By: #### U A #### [facility] [address] [place] [id number] Hematocrit Volume Fraction (Bld) 28.1 % Low 36.0 - 46.0 [facility] [place] Comment on above: Performed By: #### U A #### [facility] [address] [place] [address] Hemoglobin mass conc (Bld) 8.9 g/dL Low 12.0 - 16.0 [facility] [place] Comment on above: Performed By: #### U A #### [facility] [address] [place] [address] MCHC mass conc (RBC) 31.7 g/dL Low 32.0 - 36.0 [facility] [place] Comment on above: Performed By: #### U A #### [facility] [address] [place] [address] MCV Entitic volume (RBC) 96 fL Normal 80 - 100 [facility] [place] Comment on above: Performed By: #### U A #### [facility] [address] [place] [address] Nucleated RBC/100 WBC Ratio (Bld) 0.0 /100 WBC Normal 0.0-0.0 [facility] [place] Comment on above: Performed By: #### U A #### [facility] [address] [place] [address] Platelets #/vol (Bld) 211 10*3/uL Normal 150 - 450 [facility] [place] Comment on above: Performed By: #### U A #### [facility] [address] [place] [address] RBC #/vol (Bld) 2.92 x10E12/L Low 4.00 - 5.20 [facility] [place] Comment on above: Performed By: #### U A #### [facility] [address] [place] [address] WBC #/vol (Bld) 14.9 10*3/uL High 4.4 - 11.3 [facility] [place] Comment on above: Performed By: #### U A #### [facility] [address] [place] [address] Erythrocyte distribution width Ratio (RBC) 13.0 % Normal 11.5 - 14.5 [facility] [place] Comment on above: Performed By: #### C BC ####[id number] [place] [address] Hematocrit Volume Fraction (Bld) 24.6 % Low 36.0 - 46.0 [facility] [place] Comment on above: Performed By: #### C BC ####[id number] [place] [address] Hemoglobin mass conc (Bld) 7.8 g/dL Low 12.0 - 16.0 [facility] [place] Comment on above: Performed By: #### C BC ####[id number] [place] [address] MCHC mass conc (RBC) 31.7 g/dL Low 32.0 - 36.0 [facility] [place] Comment on above: Performed By: #### C BC ####[id number] [place] [address] MCV Entitic volume (RBC) 96 fL Normal 80 - 100 [facility] [place] Comment on above: Performed By: #### C BC ####[id number] [place] [address] Nucleated RBC/100 WBC Ratio (Bld) 0.0 /100 WBC Normal 0.0-0.0 [facility] [place] Comment on above: Performed By: #### C BC ####[id number] [place] [address] Platelets #/vol (Bld) 231 10*3/uL Normal 150 - 450 [facility] [place] Comment on above: Performed By: #### C BC ####[id number] [place] [address] RBC #/vol (Bld) 2.56 x10E12/L Low 4.00 - 5.20 [facility] [place] Comment on above: Performed By: #### C BC ####[id number] [place] [address] WBC #/vol (Bld) 16.1 10*3/uL High 4.4 - 11.3 [facility] [place] Comment on above: Performed By: #### C BC ####[id number] [place] [address] Erythrocyte distribution width Ratio (RBC) 13.0 % Normal 11.5 - 14.5 [facility] [place] Comment on above: Performed By: #### C BC ####[id number] [place] [address] Hematocrit Volume Fraction (Bld) 25.6 % Low 36.0 - 46.0 [facility] [place] Comment on above: Performed By: #### C BC ####[id number] [place] [address] Hemoglobin mass conc (Bld) 8.3 g/dL Low 12.0 - 16.0 [facility] [place] Comment on above: Performed By: #### C BC ####[id number] [place] [address] MCHC mass conc (RBC) 32.4 g/dL Normal 32.0 - 36.0 [facility] [place] Comment on above: Performed By: #### C BC ####[id number], [place] MCV Entitic volume (RBC) 96 fL Normal 80 - 100 [facility] [place] Comment on above: Performed By: #### C BC ####[id number] [place] [address] Nucleated RBC/100 WBC Ratio (Bld) 0.0 /100 WBC Normal 0.0-0.0 [facility] [place] Comment on above: Performed By: #### C BC ####[id number], [place] Platelets #/vol (Bld) 236 10*3/uL Normal 150 - 450 [facility] [place] Comment on above: Performed By: #### C BC ####[id number], [place] RBC #/vol (Bld) 2.68 x10E12/L Low 4.00 - 5.20 [facility] [place] Comment on above: Performed By: #### C BC ####[id number] [place] [address] WBC #/vol (Bld) 19.6 10*3/uL High 4.4 - 11.3 [facility] [place] Comment on above: Performed By: #### C BC ####[id number] [place] [address] Clinical Event Note-post ope rative follow upon 11-24-2018 Clinical Event Note-post operative follow up Event: Topic: post operative follow up Details: went to see patient at around 2200 as she is post op T7-L2 laminectomy, decompression and instrumental fusion. She is awake and alert, oriented. denies pain (has DIVE SUPERVISOR), currently denies nausea but is requesting phenergan if it occurs as zofran (which is ordered) has not helped well in past. On review of post op documentation it is noted that 1100 EBL during OR. Per project account manager shows intact neurovascular status and only [...] Team Contact Information: Provider/Team Contact Info-Pager Number: [phone] Electronic Signatures: Edith Dior (TRAVEL AGENCY MANAGER-SCREENING TECHNICIAN) (Signed 24-Nov-2018 06:04) Authored: Event, Provider / Team Contact Information Last Updated: 24-Nov-2018 06:04 by Edith Dior (TRAVEL AGENCY MANAGER-SCREENING TECHNICIAN) Normal [facility] [place] Daily Progress Note-Medicine on 11-24-2018 Protein mass conc Service: Medicine Subjective Data: TRISH HUNT is a 73 year old Female who is Hospital Day # 13 and POD #1 for T10-11 transpedicular decompression of tumor, T7-L2 instrumented fusion. Objective Data: Objective Information: T PRBPSpO2 [id number]/6994% Date/Time11/24 10: 10: 10: 10: 10:15 Range(36.4C - 37.1C ) (65 - 78 ) (18 - 20 ) (72 - 110 )/ (42 - 69 ) (91% - 94% ) Highest temp of 37.1 C was recorded at 11/24 1:20 Pain reported at 11/24 9:56: 3 Physical Exam: Constitutional: see medical attendings daily assessment Medication: Medications: Continuous Medications ----- 1. HYDROmorphone DIVE SUPERVISOR 25 mg/ NaCL 0.9% 50 mL: 25 mg IV DIVE SUPERVISOR Scheduled Medications ----- 1. Acetaminophen: 975 mg [...] laboratory results: Complete Blood Count Trending View [id number] 09:32:00 24-Nov-2018 06:10:00 23-Nov-2018 23:09:00 White Blood Cell Count14.9 H 16.1 H 19.6 H Nucleated Erythrocyte Count0.0 0.0 0.0 Red Blood Cell Count2.92 L 2.56 L 2.68 L HGB8.9 L 7.8 L 8.3 L HCT28.1 L 24.6 L 25.6 L MCV96 96 96 MCHC31.7 L 31.7 L 32.4 WAM727 231 236 RDW-CV13.2 13.0 13.0 Renal Function [...] Cord Stimulator Implant who is [facility] from [facility] after presenting with intractable progressive back pain [...] allow for adequate healing - started on DIVE SUPERVISOR post- op along with scheduled flexiril and APAP, lidoderm patchs - monitor for confusion some of these medications may need to be decreased - did have thoracic standing xray today - plan for MRI with anesthesia tomorrow, will be NPO after midnight, Call MRI in am to see if scheduled - monitor Back Pain Reports some improvement after initiation of DIVE SUPERVISOR -Palliative care consulted to aid in pain management -Continue Acetaminophen 975 mg by mouth three times a day -Continue Dilaudid DIVE SUPERVISOR -Phenergan PRN -Continue Dexamethasone 4mg BID (0800 [...] following OR Signature/Cosignature/Attes tation: Provider/Team Contact Info-Pager [phone] Attending Only - Shared Visit with Advanced [...] documented. She has done quite well with DIVE SUPERVISOR. At the time we arrived in her room she was awake and fully engaged in conversation. No much pain, was more receptive. She is punctual with pressing the DIVE SUPERVISOR. Two female resource manager were present in the room. Physical [...] most recent labs and discussed with the SCREENING TECHNICIAN. WBC: 10.2 -> 16.1 -> 14.9 Hctr: 43.9 -> 24.6 -> 28.1 Platelet: 324 -> 231 -> 211 BUN/creatinine: 27/0.74 -> 28/0.86 Anatomic pathology report reviewed and discussed on previous days. I reviewed the imaging, I read the report and discussed with the SCREENING TECHNICIAN. AP and lateral view of the thoracic [...] reviewed the medications and discussed with the SCREENING TECHNICIAN. 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 Ortho team performed: T10-11 transpedicular decompression of metastatic spine tumor, T7-L2 posterior instrumentation and fusion with allograft, use of intraoperative O arm, use of C arm fluoroscopy, use of ultrasound, placement of 2 subfascial drains Pain has been managed optimally with DIVE SUPERVISOR. Palliative care team is following the patient, [...] Rocky Oquendo) (Signed 24-Nov-2018 15:46) Authored: Signature/Cosignature/Attes Jordan Reveles (TRAVEL AGENCY MANAGER-SCREENING TECHNICIAN) (Signed 24-Nov-2018 17:28) Authored: Service, Subjective Data, Objective Data, Assessment and Plan, Signature/Cosignature/Attes tatpadilla Last Updated: 24-Nov-2018 17:28 by Jordan Saunders (TRAVEL AGENCY MANAGER-SCREENING TECHNICIAN) Normal [facility] [place] Daily Progress Note-Charity weldon 11-24-2018 Protein mass conc Service: Neurosurger y Subjective Data: TRISH HUNT is a 73 year old Female who is Hospital Day # 13 and POD #1 for T10-11 transpedicular decompression of tumor, T7-L2 instrumented fusion. Objective Data: Objective Information: T PRBPSpO2 [id number]/5891% Date/Time11/24 5: 5: 5: 5: 5:07 Range(36.5C [...] Signature/Cosignature/Attes tation Last Updated: 24-Nov-2018 13:41 by Huber Tamayo) Normal [facility] [place] Daily Progress Note-Palliati ve Careon 11-24-2018 Protein [...] now and is well controlled with her DIVE SUPERVISOR, and that her nausea has been under control as well. Team changed DIVE SUPERVISOR to hydromorphone 0.1mg q6min PRN (from 0.2mg q10min). No other concerns including constipation or urinary discomfort. 7.3mg IV dilaudid = 146 OME over 12 hours on DIVE SUPERVISOR (11/23 21:46 to 11/24 09:09) in immediate postop period No doses of phenergan since 11/22 Objective Data: Objective Information: T PRBPSpO2 Value36.03815688/6994% Date/Time11/24 10: 10: 10: 10: 10:15 Range(36.4C [...] Medication: Medications: Continuous Medications ----- 1. HYDROmorphone DIVE SUPERVISOR 25 mg/ NaCL 0.9% 50 mL: 25 mg IV DIVE SUPERVISOR Scheduled Medications ----- 1. Acetaminophen: 975 mg [...] obesity, hypothyroidism, HLD, presenting as transfer from [facility] for back pain due to spinal lesions, [...] not yet fully established. - continue hydromorphone DIVE SUPERVISOR (0.1mg q6min dosing) especially during perioperative period [...] Please contact us for any questions via BeCouply or pager [phone]. Nessa Mercado Internal Medicine PGY-1 Signature/Cosignature/Attes tation: [...] above attestation) on 24-Nov-2018 Comments/ Additional Findings DIVE SUPERVISOR interrogated at 1542; in the prior 12 [...] as she did last week. Would continue DIVE SUPERVISOR for fluctuating post-operative pain requirement. Call with questions, [phone] Electronic Signatures: Nessa Mercado (Resident)) (Signed 24-Nov-2018 16:26) Authored: Service, Subjective Data, Objective Data, Assessment and Plan, Signature/Cosignature/Attes tation Annette Keller) (Signed 24-Nov-2018 17:05) Authored: Service, Assessment and Plan, Signature/Cosignature/Attes tation Co-Signer: Service, Subjective Data, Objective Data, Assessment and Plan, Signature/Cosignature/Attes tation Last Updated: 24-Nov-2018 17:05 by Annette Keller) Normal [facility] [place] Nutrition Therapy-Follow Upo n 11-24-2018 Nutrition Therapy-Follow Up Assessment Subjective/Objective: Note Type: Follow Up Note Authored by: Registered Dietitian Lift Manager Pager Number: [phone] Nutrition Note: The patient is a 73 [...] reported constipation with last BM 11/21. 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 Objective Information: ---- Intake and Output ----- Mn/Dy/Year TimeIntakeOutputNet Nov 24, 2018 6:00 [id number] Nov 23, 2018 10:00 [id number] The Intake and Output Totals for the last 24 hours are: IntakeOutputNet [id number] Weight 11/12: 113.2kg 11/23: 119.8kg last BM [...] present at this time Estimated Needs: kcals/day: 0293-8480 gms protein/day: ~85 mL fluid/day: 1 ml/kcal [...] Nutrition Support: no Electronic Signatures: Yuridia Thompson (NATHAN MAURER) (Signed 24-Nov-2018 12:55) Authored: Assessment Subjective/Objective, Nutrition Focused Physical Findings, Estimated Needs, Nutrition Diagnosis, Nutrition Interventions, Nutrition Goals, Nutrition Recommendations, Dietitian Monitoring and Evaluation Plan, Time Spent/Nutrition Support Last Updated: 24-Nov-2018 12:55 by Yuridia Thompson (ERASTO, NATHAN) Normal [facility] [place] RENAL FUNCTION PANELon 11-24 Albumin mass conc 3.0 g/dL Low 3.4 - 5.0 [facility] [place] Comment on above: Performed By: #### U A #### [facility] [address] [place] [address] Anion gap molar conc 15 mmol/L Normal 10 - 20 [facility] [place] Comment on above: Performed By: #### U A #### [facility] [address] [place] [address] Calcium mass conc 8.3 mg/dL Low 8.6 - 10.6 [facility] [place] Comment on above: Performed By: #### U A #### [facility] [address] [place] [address] Chloride molar conc 105 mmol/L Normal 98 - 107 [facility] [place] Comment on above: Performed By: #### U A #### [facility] [address] [place] [address] Creatinine mass conc 0.86 mg/dL Normal 0.50 - 1.05 [facility] [place] Comment on above: Performed By: #### U A #### [facility] [address] [place] [address] GFR- AM. >60 Normal >60 [facility] [place] Comment on above: Result Comment: CALC ULATIONS OF ESTIMATED GFR ARE PERFORMED USING THE MDRD STUDY EQUATION FOR THE IDMS-TRACEABLE CREATININE METHODS. CLIN CHEM 2007;53:766-72 Performed By: #### U A #### [facility] [address] [place] [address] GFR-NON AM. >60 Normal >60 [facility] [place] Comment on above: Performed By: #### U A #### [facility] [address] [place] [address] Glucose mass conc 99 mg/dL Normal 74 - 99 [facility] [place] Comment on above: Performed By: #### U A #### [facility] [address] [place] [address] HCO3 molar conc (Bld) 25 mmol/L Normal 21 - 32 [facility] [place] Comment on above: Performed By: #### U A #### [facility] [address] [place] [address] Phosphate mass conc 4.7 mg/dL Normal 2.5 - 4.9 [facility] [place] Comment on above: Result Comment: The performance characteristics of phosphorus testing in heparinized plasma have been validated by the individual laboratory site where testing is performed. Testing on heparinized plasma is not approved by the FDA; however, such approval is not necessary. Performed By: #### U A #### [facility] [address] [place] [address] Potassium molar conc 4.0 mmol/L Normal 3.5 - 5.3 [facility] [place] Comment on above: Performed By: #### U A #### [facility] [address] [place] [address] Sodium molar conc 141 mmol/L Normal 136 - 145 [facility] [place] Comment on above: Performed By: #### U A #### [facility] [address] [place] [address] Urea nitrogen mass conc 25 mg/dL High 6 - 23 [facility] [place] Comment on above: Performed By: #### U A #### [facility] [address] [place] [address] REQUEST-LEUKOREDUCED RED BRANDON LSon 11-24-2018 REQUEST-LEUKOREDUCED RED CELLS ORDER RECD Normal [facility] [place] Comment on above: Performed By: #### O SUPERVISOR FRAME ASSEMBLY ####[id number] [place] [address] ABO/RH GROUP TESTon 11-23-19 19 ABO TYPE O Normal [facility] [place] Comment on above: Performed By: #### T SH2 #### [facility] [address] [place] [address] RH TYPE Positive Normal [facility] [place] Comment on above: Performed By: #### T SH2 #### [facility] [address] [place] [address] ARTERIAL BLOOD GASon 019 BASE EXCESS-BLOOD -1.1 mmol/L Normal -2.0 - 3.0 [facility] [place] Comment on above: Performed By: #### B LGA1 ####[id number] [place] [address] Oxygen ppres (Bld) 168 mm[Hg] High 85 - 95 [facility] [place] Comment on above: Performed By: #### B LGA1 ####[id number] [place] [address] PCO2 38 mmHg Normal 38 - 42 [facility] [place] Comment on above: Performed By: #### B LGA1 ####[id number] [place] [address] pH (Bld) 7.40 [pH] Normal 7.38 - 7.42 [facility] [place] Comment on above: Performed By: #### B LGA1 ####[id number] [place] [address] SO2 100 % Normal 94 - 100 [facility] [place] Comment on above: Performed By: #### B LGA1 ####[id number] [place] [address] BASE EXCESS-BLOOD 0.9 mmol/L Normal -2.0 - 3.0 [facility] [place] Comment on above: Performed By: #### T SH2 #### [facility] [address] [place] [address] Oxygen ppres (Bld) 154 mm[Hg] High 85 - 95 [facility] [place] Comment on above: Performed By: #### T SH2 #### [facility] [address] [place] [address] PCO2 38 mmHg Normal 38 - 42 [facility] [place] Comment on above: Performed By: #### T SH2 #### [facility] [address] [place] [address] pH (Bld) 7.43 [pH] High 7.38 - 7.42 [facility] [place] Comment on above: Performed By: #### T SH2 #### [facility] [address] [place] [address] RBC #/vol (Bld) 25.2 mmol/L Normal 22.0 - 26.0 [facility] [place] Comment on above: Performed By: #### T SH2 #### [facility] [address] [place] [address] SO2 99 % Normal 94 - 100 [facility] [place] Comment on above: Performed By: #### T SH2 #### [facility] [address] [place] [address] ARTERIAL ELECTROLYTE,GLUCOSE PANELon 11-23-2018 Anion gap molar conc 11 mmol/L Normal 10 - 25 [facility] [place] Comment on above: Performed By: #### T SH2 #### [facility] [address] [place] [address] Chloride molar conc 105 mmol/L Normal 98 - 107 [facility] [place] Comment on above: Performed By: #### T SH2 #### [facility] [address] [place] [address] Glucose mass conc 157 mg/dL High 74 - 99 [facility] [place] Comment on above: Performed By: #### T SH2 #### [facility] [address] [place] [address] Potassium molar conc 3.3 mmol/L Low 3.5 - 5.3 [facility] [place] Comment on above: Performed By: #### T SH2 #### [facility] [address] [place] [address] RBC #/vol (Bld) 23.5 mmol/L Normal 22.0 - 26.0 [facility] [place] Comment on above: Performed By: #### T SH2 #### [facility] [address] [place] [address] Performed By: #### B LGA1 ####[id number] [place] [address] Sodium molar conc 136 mmol/L Normal 136 - 145 [facility] [place] Comment on above: Performed By: #### T SH2 #### [facility] [address] [place] [address] Anion gap molar conc 7 mmol/L Low 10 - 25 [facility] [place] Comment on above: Performed By: #### T SH2 #### [facility] [address] [place] [address] Chloride molar conc 107 mmol/L Normal 98 - 107 [facility] [place] Comment on above: Performed By: #### T SH2 #### [facility] [address] [place] [address] Glucose mass conc 136 mg/dL High 74 - 99 [facility] [facility] [place] Comment on above: Performed By: #### T SH2 #### [facility] [id number] [place] [address] Potassium molar conc 3.0 mmol/L Low 3.5 - 5.3 [facility] [place] Comment on above: Performed By: #### T SH2 #### [facility] [address] [place] [address] Sodium molar conc 136 mmol/L Normal 136 - 145 [facility] [place] Comment on above: Performed By: #### T SH2 #### [facility] [address] [place] [address] ARTERIAL H+Hon 11-23-2018 Hematocrit Volume Fraction (Bld) 37.0 % Normal 36.0 - 46.0 [facility] [place] Comment on above: Performed By: #### H HNA1 ####[id number] [place] [address] HGB,CALCULATED 12.6 g/dL Normal 12.0 - 16.0 [facility] [place] Comment on above: Performed By: #### H HNA1 ####[id number] [place] [address] Hematocrit Volume Fraction (Bld) 33.0 % Low 36.0 - 46.0 [facility] [place] Comment on above: Performed By: #### T SH2 #### [facility] [address] [place] [address] HGB,CALCULATED 11.2 g/dL Low 12.0 - 16.0 [facility] [place] Comment on above: Performed By: #### T SH2 #### [facility] [address] [place] [address] BN FLUOROSCOPIC GUIDE-THX IN J PROCon 11-23-2018 BN FLUOROSCOPIC GUIDE-THX INJ PROC Patient Name: TRISH HUNT STUDY: BN FLUOROSCOPIC GUIDE-THX INJ PROC; 11/23/2018 3:38 pm INDICATION: Signs/Symptoms: OR spine fluoro. ACCESSION NUMBER(S): [id number] ORDERING CLINICIAN: GRAZYNA LARA FINDINGS: Fluoroscopic support provided during posterior spinal fusion. No fluoroscopic images were submitted.. Total fluoroscopy time was 2.27 seconds. IMPRESSION: Study performed for localization purposes only. Electronically signed by: ALEKSANDRA FRANCOIS MD Normal [facility] [place] BN FLUOROSCOPIC GUIDE-THX INJ PROC Patient Name: TRISH HUNT STUDY: BN FLUOROSCOPIC GUIDE-THX INJ PROC; 11/23/2018 3:38 pm INDICATION: Signs/Symptoms: OR spine fluoro. ACCESSION NUMBER(S): [id number] ORDERING CLINICIAN: GRAZYNA LARA FINDINGS: Fluoroscopic support provided during posterior spinal fusion. A total of 2 fluoroscopic images were obtained. Total fluoroscopy time was 7.2 seconds. IMPRESSION: Study performed for localization purposes only. Electronically signed by: ALEKSANDRA FRANCOIS MD Normal [facility] [place] CALCIUM, IONIZEDon 9 CALCIUM,IONIZED 1.12 mmol/L Normal 1.10 - 1.33 [facility] [place] Comment on above: Result Comment: The performance characteristics of ionized calcium tested in heparinized plasma or serum have been validated by the individual laboratory site where testing is performed. Testing on heparinized plasma or serum is not approved by the FDA; however, such approval is not necessary. Performed By: #### I ONC1 ####[id number] [place] [address] CALCIUM,IONIZED 1.18 mmol/L Normal 1.10 - 1.33 [facility] [place] Comment on above: Result Comment: The performance characteristics of ionized calcium tested in heparinized plasma or serum have been validated by the individual laboratory site where testing is performed. Testing on heparinized plasma or serum is not approved by the FDA; however, such approval is not necessary. Performed By: #### T SH2 #### [facility] [id number] [place] [address] Daily Progress Note-Medicine on 11-23-2018 Protein mass conc Service: Medicine Subjective Data: TRISH HUNT is a 73 year old Female who is Hospital Day # 12. Objective Data: Objective Information: T PRBPSpO2 [id number]/7597% Date/Time11/23 3: 3: 3: 3: 3:40 Range(35.9C - 36.5C ) (69 - 88 ) (16 - 18 ) (136 - 175 )/ (74 - 107 ) (94% - 98% ) Pain reported at 11/23 7:10: 8 Physical Exam: Constitutional: In OR for most of the day Medication: Medications: Continuous Medications ----- 1. HYDROmorphone DIVE SUPERVISOR 25 mg/ NaCL 0.9% 50 mL: 25 mg IV DIVE SUPERVISOR 2. 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 - monitor for confusion some of these medications may need to be decreased - monitor Back Pain Reports some improvement after initiation of DIVE SUPERVISOR -Palliative care consulted to aid in pain management -Continue Acetaminophen 975 mg by mouth three times a day -Continue Dilaudid DIVE SUPERVISOR 0.2 dose with 10 min lock out [...] after OR Signature/Cosignature/Attes tation: Provider/Team Contact Info-Pager [phone] Attending Only - Shared Visit with Advanced Practice ProviderThis is a shared visit. I have reviewed the Advanced Practice Providers encounter note, approve the Advanced Practice Providers documentation, and provide the following additional information from my personal encounter. Comments/ Additional Findings Patient was taken to the OR before rounds and remained in the recovery until mid evening. For pain after surgery to continue DIVE SUPERVISOR. Electronic Signatures: Rocky Oquendo) (Signed 23-Nov-2018 19:46) Authored: Signature/Cosignature/Attes tation Jordan Saunders (TRAVEL AGENCY MANAGER-SCREENING TECHNICIAN) (Signed 23-Nov-2018 17:59) Authored: Service, Subjective Data, Objective Data, Assessment and Plan, Signature/Cosignature/Attes tation Last Updated: 23-Nov-2018 19:46 by Rocky Oquendo) Normal [facility] [place] History and Physical - Surgi leonidas Update [...] Signatures: Huber Tamayo) (Signed 23-Nov-2018 08:11) Authored: Signatures/Attestation/Cert ification Co-Signer: History & Physical Reviewed, Signatures/Attestation/Cert ification Grazyna Lara (Resident)) (Signed 22-Nov-2018 13:54) Authored: History & Physical Reviewed, Signatures/Attestation/Cert ification Last Updated: 23-Nov-2018 08:11 by Huber Tamayo) Normal [facility] [place] OPERATIVE REPORTon 9 [place] [address] Patient Name: TRISH HUNT : 1945 Date of Service: 11/23/2018 Patient Location: [facility] [id number] Patient Type: I Surgeon: Huber Tamayo MD [...] 2 subfascial drains. SURGEON: Huber Tamayo MD WOOD MILL SUPERVISOR(S): 1. Tai Maurice MD 2. Grazyna Lara [...] The patient was turned prone on the Jakcson table, after the patient's head was placed [...] arm, those images were sent to the [employer] navigation platform. We confirmed anatomical accuracy with [...] TT: 11/25/2018 03:56 AM EST DICTATION NUMBER: [id number] [facility] JOB NUMBER: [id number] CC: Rocky Oquendo MD, PhD Edited by Huber Tamayo 11/30/2018 07:31:32 PM Edited by Huber Tamayo 11/30/2018 07:39:51 PM Edited by Huber Tamayo 11/30/2018 07:40:32 PM Edited by Huber Tamayo 12/02/2018 07:35:59 PM Edited by Huber Tamayo 12/02/2018 07:42:[address] S[address] by Dr. Huber Tamayo 12/02/2018 07:42:42 PM Normal [facility] [place] Preop Checkliston 11-23-2018 Preop Checklist Preop Checklist: Preop Checklist: NPO [id number] 00:00 ID Band Onyes Allergy Bandyes Consent [...] 23-Nov-2018 01:15 by Justin Valdes (RN) Normal [facility] Surgical Pathology Depar tmenton 11-23-2018 [facility] Surgical Pathology Department Name TRISH HUNT Pathologist: Samantha Martinez MD, Ph.D. Date of Procedure: 11/23/2018 Date Received: 11/23/2018 Date Reported 11/29/2018 Submitting Physician: HUBER TAMAYO MD Location: OR Other External # FINAL DIAGNOSIS SPINE, THORACIC, EXCISION: --METASTATIC NON-SMALL CELL CARCINOMA CONSISTENT WITH ADENOCARCINOMA INVOLVING SOFT TISSUE AND BONE. SEE NOTE Note: Findings are consistent with previous ([id number]) Electronically Signed Out By Samantha Martinez MD, [...] to 6.5 x 6.5 x 1.5 cm. Manager Nursing Home sections are submitted in 5 cassettes. DJO djo/11/24/2018 Normal [facility] [place] Comment on above: Performed By: #### C BCDF #### [facility] [address] [place] [address] BN SPINE, LUMBOSACRAL; 2 OR 3 VIEWSon 11-22-2018 BN SPINE, LUMBOSACRAL; 2 OR 3 VIEWS Patient Name: TRISH HUNT STUDY: BN SPINE, LUMBOSACRAL; 2 OR 3 VIEWS; THORACIC SPINE AP/LAT; 11/22/2018 8:18 pm INDICATION: Signs/Symptoms: preop planning. COMPARISON: L-spine CT dated 11/14/2018. ACCESSION NUMBER(S): [id number]; [id number] ORDERING CLINICIAN: DEBORAH ESPANA FINDINGS: Two views of the thoracic spine including AP and lateral views, and four views of the lumbar spine including AP and lateral views, Evaluation is significantly limited due to overlying soft tissue shadow. There are 5 irg-xtm-hxdrtnp lumbar type vertebrae. There is again pathologic [...] as stated. This study was interpreted at [facility], [place], [place]. Electronically signed by: ASHLEY MONTERO MD Normal [facility] [place] BN THORACIC SPINE AP/LATon 0 11-22-2018 BN THORACIC SPINE AP/LAT Patient Name: TRISH HUNT STUDY: BN SPINE, LUMBOSACRAL; 2 OR 3 VIEWS; THORACIC SPINE AP/LAT; 11/22/2018 8:18 pm INDICATION: Signs/Symptoms: preop planning. COMPARISON: L-spine CT dated 11/14/2018. ACCESSION NUMBER(S): [id number]; [id number] ORDERING CLINICIAN: DEBORAH ESPANA FINDINGS: Two views of the thoracic spine including AP and lateral views, and four views of the lumbar spine including AP and lateral views, Evaluation is significantly limited due to overlying soft tissue shadow. There are 5 kvx-eko-ycapccv lumbar type vertebrae. There is again pathologic [...] as stated. This study was interpreted at [facility], [place], [place]. Electronically signed by: ASHLEY MONTERO MD Normal [facility] [place] CBCon 11-22-2018 Erythrocyte distribution width Ratio (RBC) 12.9 % Normal 11.5 - 14.5 [facility] [place] Comment on above: Performed By: #### C BC ####[id number] [place] [address] Hematocrit Volume Fraction (Bld) 43.9 % Normal 36.0 - 46.0 [facility] [place] Comment on above: Performed By: #### C BC ####[id number] [place] [address] Hemoglobin mass conc (Bld) 14.0 g/dL Normal 12.0 - 16.0 [facility] [place] Comment on above: Performed By: #### C BC ####[id number] [place] [address] MCHC mass conc (RBC) 31.9 g/dL Low 32.0 - 36.0 [facility] [place] Comment on above: Performed By: #### C BC ####[id number] [place] [address] MCV Entitic volume (RBC) 96 fL Normal 80 - 100 [facility] [place] Comment on above: Performed By: #### C BC ####[id number] [place] [address] Nucleated RBC/100 WBC Ratio (Bld) 0.0 /100 WBC Normal 0.0-0.0 [facility] [place] Comment on above: Performed By: #### C BC ####[id number] [place] [address] Platelets #/vol (Bld) 324 10*3/uL Normal 150 - 450 [facility] [place] Comment on above: Performed By: #### C BC ####[id number] [place] [address] RBC #/vol (Bld) 4.58 x10E12/L Normal 4.00 - 5.20 [facility] [place] Comment on above: Performed By: #### C BC ####[id number] [place] [address] WBC #/vol (Bld) 10.2 10*3/uL Normal 4.4 - 11.3 [facility] [place] Comment on above: Performed By: #### C BC ####[id number] [place] [address] COAGULATION SCREENon 019 aPTT Coag time (Bld) 33 s Normal 28 - 38 [facility] [place] Comment on above: Result Comment: Note new reference range as of 09/07/2018. THE APTT IS NO LONGER USED FOR MONITORING UNFRACTIONATED HEPARIN THERAPY. FOR MONITORING HEPARIN THERAPY, USE THE HEPARIN ASSAY. Performed By: #### C OAGS ####[id number] [place] [address] INR Coag RelTime (PPP) 1.1 {INR} Normal 0.9 - 1.1 [facility] [place] Comment on above: Performed By: #### C OAGS ####[id number] [place] [address] Prothrombin time (PT) Coag time (PPP) 12.0 s Normal 9.7 - 12.7 [facility] [place] Comment on above: Result Comment: Note new reference range as of 09/07/2018. Performed By: #### C OAGS ####[id number] [place] [address] Clinical Event Note-Neurosur alicia update noteon 11-22-2018 [...] Team Contact Information: Provider/Team Contact Info-Pager Number: [phone] Electronic Signatures: Diane Ruiz ( (Resident)) (Signed 22-Nov-2018 20:27) Authored: Event, Provider / Team Contact Information Last Updated: 22-Nov-2018 20:27 by Diane Ruiz ( (Resident)) Normal [facility] [place] Daily Progress Note-Medicine on 11-22-2018 Protein mass conc Service: Medicine Subjective Data: TRISH HUNT is a 73 year old Female who is Hospital Day # 11. Objective Data: Objective Information: T PRBPSpO2 [id number]/99799% Date/Time11/22 11:4611/22 11: 11: 11: 11:46 Range(35.6C - 37C [...] Medication: Medications: Continuous Medications ----- 1. HYDROmorphone DIVE SUPERVISOR 25 mg/ NaCL 0.9% 50 mL: 25 mg IV DIVE SUPERVISOR Scheduled Medications ----- 1. 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 DIVE SUPERVISOR helped with pain control and the patient [...] edema in both legs/feet (R>L). External urine vehicle fare collector attached, urine is dark clear. Neuro exam showed no focal deficit. Motion in bed triggers back pain, she avoids turning. Coherent, did appear depressed. The rest of today's physical findings are similar to those noted/reported 3 days ago. I reviewed the most recent labs and discussed with the SCREENING TECHNICIAN. WBC: 10.2 Hctr: 43.9 Platelet: 324 BUN/creatinine: [...] read the report and discussed with the SCREENING TECHNICIAN. I reviewed the medications and discussed with the SCREENING TECHNICIAN. 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 Pain has been managed optimally with DIVE SUPERVISOR. Palliative care team is following the patient, [...] (Signed 22-Nov-2018 17:05) Authored: Signature/Cosignature/Attes Dominic Suarez (TRAVEL AGENCY MANAGER-[facility]) (Signed 22-Nov-2018 14:53) Authored: Service, Subjective Data, Objective Data, Assessment and Plan Last Updated: 22-Nov-2018 17:05 by Rocky Oquendo) Normal [facility] [place] Daily Progress Note-Palliati ve Careon 11-22-2018 Protein [...] concentrate on things other than pain today. DIVE SUPERVISOR requirements per EMR: 11/21 (11/21 4:20AM- 11/22 4:52AM): 4.2mg dilaudid = 84 OME 11/20 (to 11/21 4:20AM): 2.4mg dilaudid = 48 OME Objective Data: Objective Information: T PRBPSpO2 Value36.03346361/70671% Date/Time11/22 10: 11: 11: 11: 11:46 Range(35.6C - 37C [...] Medication: Medications: Continuous Medications ----- 1. HYDROmorphone DIVE SUPERVISOR 25 mg/ NaCL 0.9% 50 mL: 25 mg IV DIVE SUPERVISOR Scheduled Medications ----- 1. Acetaminophen: 975 mg [...] obesity, hypothyroidism, HLD, presenting as transfer from [facility] for back pain due to spinal lesions, [...] not yet fully established. - continue hydromorphone DIVE SUPERVISOR (0.2mg q10min dosing) especially during perioperative period - continue bowel regimen with miralax daily to avoid constipation #Code status/living will: in paper chart - patient expressed desire to be DNR/DNI, updated in EMR Thank you for allowing us to participate in the care of this patient. We will continue to follow. Please contact us for any questions via [employer] or pager [phone]. Nessa Mercado Internal Medicine PGY-1 Signature/Cosignature/Attes tation: [...] attestation) on 22-Nov-2018 Comments/ Additional Findings Continue DIVE SUPERVISOR; anticipate surgery tomorrow and perioperatively would expect significant changes in pain levels so a DIVE SUPERVISOR can be a good strategy as it is most flexible and responsive to patient's needs. Consider pamidronate if okay'ed by surgical team. Will follow. Call with questions. [id number] Electronic Signatures: Nessa Mercado (Resident)) (Signed 22-Nov-2018 13:44) Authored: Service, Subjective Data, Objective Data, Assessment and Plan Annette Keller) (Signed 22-Nov-2018 17:58) Authored: Service, Signature/Cosignature/Attes tation Last Updated: 22-Nov-2018 17:58 by Annette Keller) Normal [facility] [place] RENAL FUNCTION PANELon 11-22 Albumin mass conc 3.7 g/dL Normal 3.4 - 5.0 [facility] [place] Comment on above: Performed By: #### R ENAL ####[id number] [place] [address] Anion gap molar conc 14 mmol/L Normal 10 - 20 [facility] [place] Comment on above: Performed By: #### R ENAL ####[id number] [place] [address] Calcium mass conc 9.5 mg/dL Normal 8.6 - 10.6 [facility] [place] Comment on above: Performed By: #### R ENAL ####[id number] [place] [address] Chloride molar conc 103 mmol/L Normal 98 - 107 [facility] [place] Comment on above: Performed By: #### R ENAL ####[id number] [place] [address] Creatinine mass conc 0.74 mg/dL Normal 0.50 - 1.05 [facility] [place] Comment on above: Performed By: #### R ENAL ####[id number] [place] [address] GFR- AM. >60 Normal >60 [facility] [place] Comment on above: Result Comment: CALC ULATIONS OF ESTIMATED GFR ARE PERFORMED USING THE MDRD STUDY EQUATION FOR THE IDMS-TRACEABLE CREATININE METHODS. CLIN CHEM 2007;53:766-72 Performed By: #### R ENAL ####[id number] [place] [address] GFR-NON AM. >60 Normal >60 [facility] [place] Comment on above: Performed By: #### R ENAL ####[id number] [place] [address] Glucose mass conc 92 mg/dL Normal 74 - 99 [facility] [place] Comment on above: Performed By: #### R ENAL ####[id number] [place] [address] HCO3 molar conc (Bld) 28 mmol/L Normal 21 - 32 [facility] [place] Comment on above: Performed By: #### R ENAL ####[id number] [place] [address] Phosphate mass conc 2.7 mg/dL Normal 2.5 - 4.9 [facility] [place] Comment on above: Result Comment: The performance characteristics of phosphorus testing in heparinized plasma have been validated by the individual laboratory site where testing is performed. Testing on heparinized plasma is not approved by the FDA; however, such approval is not necessary. Performed By: #### R ENAL ####[id number] [place] [address] Potassium molar conc 3.9 mmol/L Normal 3.5 - 5.3 [facility] [place] Comment on above: Performed By: #### R ENAL ####[id number] [place] [address] Sodium molar conc 141 mmol/L Normal 136 - 145 [facility] [place] Comment on above: Performed By: #### R ENAL ####[id number] [place] [address] Urea nitrogen mass conc 27 mg/dL High 6 - 23 [facility] [place] Comment on above: Performed By: #### R ENAL ####[id number] [place] [address] REQUEST-LEUKOREDUCED RED BRANDON LSon 11-22-2018 REQUEST-LEUKOREDUCED RED CELLS ORDER RECD Normal [facility] [place] Comment on above: Performed By: #### O SUPERVISOR FRAME ASSEMBLY ####[id number] [place] [address] TH CHEST 1 VIEWon 11-22-2018 TH CHEST 1 VIEW Patient Name: TRISH HUNT STUDY: TH CHEST 1 VIEW; 11/22/2018 12:45 pm INDICATION: Signs/Symptoms: preop. COMPARISON: None. ACCESSION NUMBER(S): [id number] ORDERING CLINICIAN: DOMINIC PRECIADO FINDINGS: CARDIOMEDIASTINAL SILHOUETTE: Cardiomediastinal silhouette is normal in size and configuration. LUNGS: Interval worsening in right basilar consolidation/effusion. No pneumothorax. ABDOMEN: No remarkable upper abdominal findings. BONES: No acute osseous changes. IMPRESSION: 1. Correlate with interval effusion or basilar infiltrate/postobstructive pneumonia Electronically signed by: Dashawn MARCOS MD Normal [facility] [place] TYPE + SCREENon 11-22-2018 ABO TYPE O Normal [facility] [place] Comment on above: Performed By: #### T +S ####[id number] [place] [address] RH TYPE Positive Normal [facility] [place] Comment on above: Performed By: #### T +S ####[id number] [place] [address] URINALYSISon 11-22-2018 Appearance Nom (U) CLEAR Normal CLEAR [facility] [place] Comment on above: Performed By: #### U A ####[id number] [id number] Bilirubin mass conc Negative Normal NEGATIVE [facility] [place] Comment on above: Performed By: #### U A ####[id number] [id number] BLOOD Negative Normal NEGATIVE [facility] [place] Comment on above: Performed By: #### U A ####[id number] [place] [address] Color Nom (U) YELLOW Normal STRAW,YELL OW [facility] [place] Comment on above: Performed By: #### U A ####[id number] [place] [address] Glucose mass conc Negative Normal NEGATIVE [facility] [place] Comment on above: Performed By: #### U A ####[id number] [id number] Ketones Ql (U) Negative Normal NEGATIVE [facility] [place] Comment on above: Performed By: #### U A ####[id number] [place] [address] Leukocyte esterase Test strip Ql (U) Negative Normal NEGATIVE [facility] [place] Comment on above: Performed By: #### U A ####[id number] [place] [address] Nitrite Ql (U) Negative Normal NEGATIVE [facility] [place] Comment on above: Performed By: #### U A ####[id number] [id number] pH (Bld) 7.0 Normal 5.0 - 8.0 [facility] [place] Comment on above: Performed By: #### U A ####[id number] [place] [address] Protein mass conc (U) Negative Normal NEGATIVE [facility] [place] Comment on above: Performed By: #### U A ####[id number] [place] [address] Specific gravity Relative Density (U) 1.013 Normal 1.005 - 1.035 [facility] [place] Comment on above: Performed By: #### U A ####[id number] [place] [address] Urobilinogen Qn (U) <2.0 Normal 0.0 - 1.9 [facility] [place] Comment on above: Performed By: #### U A ####[id number] [place] [address] Daily Progress Note-Medicine on 11-21-2018 Protein mass conc Service: Medicine Subjective Data: TRISH HUNT is a 73 year old Female who is Hospital Day # 10. Additional Information: still rating pain at an 8 but reports much better than previous Objective Data: Objective Information: T PRBPSpO2 Value36.40115516/8496% Date/Time11/21 11: 11: 11: 11: 11:30 Range(36C [...] Medication: Medications: Continuous Medications ----- 1. HYDROmorphone DIVE SUPERVISOR 25 mg/ NaCL 0.9% 50 mL: 25 mg IV DIVE SUPERVISOR Scheduled Medications ----- 1. Acetaminophen: 975 mg [...] Cord Stimulator Implant who is [facility] after presenting with intractable progressive back pain [...] Pain Reports some improvement after initiation of DIVE SUPERVISOR -Palliative care consulted to aid in pain management -Continue Acetaminophen 975 mg by mouth three times a day -Continue Dilaudid DIVE SUPERVISOR 0.2 dose with 10 min lock out [...] this time Signature/Cosignature/Attes tation: Provider/Team Contact Info-Pager [phone] Attending Only - Shared Visit with Advanced Practice ProviderThis is a shared visit. I have reviewed the Advanced Practice Providers encounter note, approve the Advanced Practice Providers documentation, and provide the following additional information from my personal encounter. Comments/ Additional Findings Seen with the PLUMBER PIPE FITTING at the bedside. Reports to feeling OK, [...] fracture Appreciate palliative care input, cont Dilaudid DIVE SUPERVISOR. fairly controlled today. Seen by Med/ Onc/ [...] toilet post op. Electronic Signatures: Dominic Preciado (TRAVEL AGENCY MANAGER-SCREENING TECHNICIAN) (Signed 21-Nov-2018 12:51) Authored: Service, Subjective Data, Objective Data, Assessment and Plan, Signature/Cosignature/Attes tation Casimiro Yusuf) (Signed 21-Nov-2018 15:58) Authored: Signature/Cosignature/Attes tation Co-Signer: Service, Subjective Data, Objective Data, Assessment and Plan, Signature/Cosignature/Attes tation Last Updated: 21-Nov-2018 15:58 by Casimiro Yusuf) [facility] Daily Progress Note-Neurosur geryon 11-21-2018 Protein mass conc Service: Neurosurger y Subjective Data: TRISH HUNT is a 73 year old Female who is Hospital Day # 10. Objective Data: Objective Information: T PRBPSpO2 [id number]/8596% Date/Time11/21 7: 7: 7: 7: 7:30 Range(36C [...] 28-Dec-2018 12:41 by Jose Angel Key) Normal [facility] [place] Daily Progress Note-Medicine on 11-20-2018 Protein mass conc Service: Medicine Subjective Data: TRISH HUNT is a 73 year old Female who is Hospital Day # 9. Objective Data: Objective Information: T PRBPSpO2 Value36.98712491/7992% Date/Time11/20 10: 11: 11:: 11:22 Range(35.7C - 37.2C ) (73 - [...] Medication: Medications: Continuous Medications ----- 1. HYDROmorphone DIVE SUPERVISOR 25 mg/ NaCL 0.9% 50 mL: 25 mg IV DIVE SUPERVISOR Scheduled Medications ----- 1. Acetaminophen: 975 mg [...] Cord Stimulator Implant who is [facility] from [facility] after presenting with intractable progressive back pain [...] three times a day - on dilaudid DIVE SUPERVISOR, but causing vomiting, phenergan had to be [...] this time Signature/Cosignature/Attes tation: Provider/Team Contact Info-Pager [phone] Attending Only - Shared Visit with Advanced Practice ProviderThis is a shared visit. I have reviewed the Advanced Practice Providers encounter note, approve the Advanced Practice Providers documentation, and provide the following additional information from my personal encounter. Comments/ Additional Findings Seen with the PLUMBER PIPE FITTING at the bedside Overnight events noted, reported [...] fracture Appreciate palliative care input, cont Dilaudid DIVE SUPERVISOR. fairly controlled today. Seen by Med/ Onc/ Rad/ Onc, appreciate input Planned for OR by Neuro surgery 11/23 Started on Decadron 4mg by mouth twice a day Acute hypoxic resp failure, requiring 2L o2, not been on O2 previously Cont aerosols, IS, bronchial hygiene. Other chronic issues stable, cont meds DVT prophylaxis SNF when medically stable Full Code. Electronic Signatures: Jordan Saunders (TRAVEL AGENCY MANAGER-SCREENING TECHNICIAN) (Signed 20-Nov-2018 15:14) Authored: Service, Subjective Data, Objective Data, Assessment and Plan, Signature/Cosignature/Attes tation Casimiro Yusuf) (Signed 20-Nov-2018 18:34) Authored: Signature/Cosignature/Attes tation Last Updated: 20-Nov-2018 18:34 by Casimiro Yusuf) Normal [facility] [place] Daily Progress Note-Palliati ve Careon 11-20-2018 Protein mass conc Service: Palliative Care Subjective Data: TRISH HUNT is a 73 year old Female who is Hospital Day # 9. Additional Information: Today the patient is awake in bed. Doing well on the current clinic cma. Surgery is scheduled for the next few days. Objective Data: Objective Information: T PRBPSpO2 Value36.01719316/7593% Date/Time11/20 16: 16: 16: 16: 16:17 Range(35.7C [...] is recommended. The study was interpreted at [facility]. MRI L Spine w/wo Contrast [Nov [...] obesity, hypothyroidism, HLD, presenting as transfer from [facility] for back pain due to spinal lesions, highly suspicious for lung cancer metastases in setting of recent workup. Palliative care was consulted for pain management. Today the patient is awake in bed. Doing well on the clinic cma overall and surgery is planned for the coming days. At this time we recommend continuing the current clinic cma until post surgery as she will likely [...] coverage for neoplasm related pain -continue hydromorphone clinic cma at the current rate of 0.2mg q10 [...] Please contact us for any questions via BeCouply or pager [phone]. Signature/Cosignature/Attes tation: Comments/ Additional Findings Above d/w [...] Last Updated: 07-Apr-2019 11:39 by Willie Damico) [facility] Clinical Event Note-Charity alicia attending updatedon 11-19-2018 Clinical Event Note-Neurosurgery attending [...] Last Updated: 19-Nov-2018 14:29 by Huber Tamayo) [facility] Clinical Event Note-Radiatio n Oncologyon 11-19-2018 Clinical [...] Updated: 19-Nov-2018 16:57 by Jose Jonas) Normal [facility] [place] Daily Progress Note-Medicine on 11-19-2018 Protein mass conc Service: Medicine Subjective Data: TRISH HUNT is a 73 year old Female who is Hospital Day # 8. Objective Data: Objective Information: T PRBPSpO2 [id number]/5698% Date/Time11/19 7: 7: 7: 7: 7:55 Range(36.3C [...] Cord Stimulator Implant who is [facility] from [facility] after presenting with intractable progressive back pain with SOB and found on imaging to have a lung mass with adenopathy and suspected spinal metastasis for neurosurgical evaluation and further care. In Shared Visit with Dr. Oquendo Metastatic Lung CA Former smoker. Reported SOB and chest pain with deep breath at [place] ER presentation 11/11/18. A CT of the [...] Likely metastasis from lung CA. Presented to [facility] 11/11/18 with intractable progressive back pain [...] A CT Chest, Abdomen and Pelvis at [place] showed a suspected Pathologic fracture of the [...] given Decadron with request for transfer to [facility] for Neurosurgery evaluation. Neurosurgery consulted and did [...] this time Signature/Cosignature/Attes tation: Provider/Team Contact Info-Pager [phone] Attending Only - Shared Visit with Advanced [...] no tenderness or organomegaly appreciated. External urine vehicle fare collector attached, urine is dark clear. Neuro [...] read the report and discussed with the SCREENING TECHNICIAN. PET CT (11/17) IMPRESSION: 1. Correlating with [...] reviewed the medications and discussed with the SCREENING TECHNICIAN. Medical decision making: An elderly female with [...] Rocky Oquendo) (Signed 19-Nov-2018 12:46) Authored: Signature/Cosignature/Attes Jordan Reveles (TRAVEL AGENCY MANAGER-[facility]) (Signed 19-Nov-2018 11:58) Authored: Service, Subjective Data, Objective Data, Assessment and Plan, Signature/Cosignature/Attes clifford Last Updated: 19-Nov-2018 12:46 by Rocky Oquendo) Normal [facility] [place] Daily Progress Note-Palliati ve Careon 11-19-2018 Protein [...] OME. Objective Data: Objective Information: T PRBPSpO2 Value37.05483765/7696% Date/Time11/19 11: 11: 11: 11: 11:50 Range(36.3C - 37.2C ) (72 [...] obesity, hypothyroidism, HLD, presenting as transfer from [facility] for back pain due to spinal lesions, [...] yet fully established. - please start hydromorphone DIVE SUPERVISOR (0.2mg q10min dosing) - continue bowel regimen [...] Please contact us for any questions via Biocontrolo or pager [phone]. Nessa Mercado Internal Medicine PGY-1 Signature/Cosignature/Attes tation: [...] for excess sedation); therefore, we are recommending DIVE SUPERVISOR as a tool for rapid dose finding as well as safe dose finding (given built in control that if patient gets sleepy she stops pushing the button). Will follow. Call with questions. [id number] Electronic Signatures: Nessa Mercado (Resident)) (Signed 19-Nov-2018 15:13) Authored: Service, Subjective Data, Objective Data, Assessment and Plan, Signature/Cosignature/Attes tation Annette Keller) (Signed 19-Nov-2018 16:04) Authored: Service, Signature/Cosignature/Attes tation Co-Signer: Subjective Data, Objective Data, Assessment and Plan, Signature/Cosignature/Attes tation Last Updated: 19-Nov-2018 16:04 by Annette Keller) Normal [facility] [place] CBCon 11-18-2018 Erythrocyte distribution width Ratio (RBC) 13.2 % Normal 11.5 - 14.5 [facility] [place] Comment on above: Performed By: #### C MP #### [facility] [address] [place] [address] Hematocrit Volume Fraction (Bld) 41.0 % Normal 36.0 - 46.0 [facility] [place] Comment on above: Performed By: #### C MP #### [facility] [address] [place] [address] Hemoglobin mass conc (Bld) 12.3 g/dL Normal 12.0 - 16.0 [facility] [place] Comment on above: Performed By: #### C MP #### [facility] [address] [place], [place] MCHC mass conc (RBC) 30.0 g/dL Low 32.0 - 36.0 [facility] [place] Comment on above: Performed By: #### C MP #### [facility] [address] [place] [address] MCV Entitic volume (RBC) 101 fL High 80 - 100 [facility] [place] Comment on above: Performed By: #### C MP #### [facility] [address] [place], [place] Nucleated RBC/100 WBC Ratio (Bld) 0.0 /100 WBC Normal 0.0-0.0 [facility] [place] Comment on above: Performed By: #### C MP #### [facility] [address] [place] [address] Platelets #/vol (Bld) 251 10*3/uL Normal 150 - 450 [facility] [place] Comment on above: Performed By: #### C MP #### [facility] [address] [place] [address] RBC #/vol (Bld) 4.04 x10E12/L Normal 4.00 - 5.20 [facility] [place] Comment on above: Performed By: #### C MP #### [facility] [address] [place] [address] WBC #/vol (Bld) 6.8 10*3/uL Normal 4.4 - 11.3 [facility] [place] Comment on above: Performed By: #### C MP #### [facility] [address] [place] [address] Clinical Event Note-patholog yon 11-18-2018 Clinical Event [...] Last Updated: 18-Nov-2018 17:25 by Matt Doan) [facility] Consult-Palliative Careon Consult-Palliative Care Service: Service: Palliative Care Consult: Consult requested by (Attending Name): Dr. Oquendo Reason: pain management History of Present Illness: Admission Reason: back pain, transferred from [place] for concern for spinal metastases HPI: Ms. Hunt is a 73 year old F presenting as transfer from [facility] after initially presenting there with subacute low [...] Home: Lives with of ~60 years in [place]/near [place], [place]. He has difficulty ambulating (he "should" use a walker). She assists him more than he assists her. Family: Had three children, two still alive. One son of pneumonia. Many grandchildren including Lakesha, college student, who was present in the room and has been present throughout hospital stay. Family all in [facility]. 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 Strength and meaning in life: God, Lakesha (granddaughter) give her life meaning; also enjoys crocheting Spirituality: God gives her strength; geriatric nurse assistant [place] visiting her frequently. Decision maker: is [...] lisinopril: Unknown Objective: Objective Information: T PRBPSpO2 Value37.16907632/7897% Date/Time11/18 11: 11: 11: 11: 11:29 Range(36.1C [...] is recommended. The study was interpreted at [facility]. MRI L Spine w/wo Contrast [Nov [...] obesity, hypothyroidism, HLD, presenting as transfer from [facility] for back pain due to spinal lesions, [...] Please contact us for any questions via Docemazeo or pager [phone]. Nessa Mercado Internal Medicine PGY-1 Signature/Cosignature/Attes tation: [...] Updated: 18-Nov-2018 21:14 by Annette Keller) Normal [facility] [place] Consult-Radiation Oncologyon 11-18-2018 Consult-Radiation Oncology Service: Service: [...] to [facility] on 11/12/2018 from [facility] after presenting on 11/11/2018 with intractable, progressive back pain x2-[address] C/A/P at [place] showed occlusion of the right middle bronchus [...] lisinopril: Unknown Objective: Objective Information: T PRBPSpO2 Value36.49953026/7397% Date/Time11/18 19: 19: 19: 19: 19:46 Range(36.2C [...] is recommended. The study was interpreted at [facility]. MRI T Spine w/wo Contrast [Nov [...] is recommended. The study was interpreted at [facility]. MRI L Spine w/wo Contrast [Nov [...] durable local control. The patient lives near [place] and would prefer to have radiation therapy closer to home. If the patient undergoes surgery, she may be referred to [facility] for radiotherapy ~3-4 weeks after her [...] follow. Adriana Kumar MD PGY-2, Radiation Oncology [facility] Signature/Cosignature/Attes tation: Comments/ Additional Findings I [...] 16:52) Authored: Review Family/Social History and ROS, Signature/Cosignature/Attsrinivas horton Co-Signer: Service, History of Present Illness, Allergies, Objective, Assessment/Recommendations, Signature/Cosignature/Attes clifford Last Updated: 19-Nov-2018 16:52 by Jose Jonas) Normal [facility] [place] Daily Progress Note-Medicine on 11-18-2018 Protein mass conc Service: Medicine Subjective Data: TRISH HUNT is a 73 year old Female who is Hospital Day # 7. Additional Information: Continues to complain of pain. Nursing concern for lethargy last evening. Did not eat or drink much yesterday. Objective Data: Objective Information: T PRBPSpO2 Value36.63695707/7497% Date/Time11/18 7: 7: 7: 7: 7:28 Range(36.1C [...] Cord Stimulator Implant who is [facility] 11[facility]18 from [facility] after presenting with intractable progressive back pain with SOB and found on imaging to have a lung mass with adenopathy and suspected spinal metastasis for neurosurgical evaluation and further care. In Shared Visit with Dr. Oquendo Metastatic Lung CA Former smoker. Reported SOB and chest pain with deep breath at [place] ER presentation 11/11/18. A CT of the [...] Likely metastasis from lung CA. Presented to [facility] 11/11/18 with intractable progressive back pain [...] A CT Chest, Abdomen and Pelvis at [place] showed a suspected Pathologic fracture of the [...] given Decadron with request for transfer to [facility] for Neurosurgery evaluation. Neurosurgery consulted and did [...] read the report and discussed with the SCREENING TECHNICIAN. PET CT (11/17) IMPRESSION: 1. Correlating with [...] reviewed the medications and discussed with the SCREENING TECHNICIAN. Medical decision making: An elderly female with [...] (Signed 18-Nov-2018 15:43) Authored: Signature/Cosignature/Attes Dominic Suarez (TRAVEL AGENCY MANAGER-SCREENING TECHNICIAN) (Signed 18-Nov-2018 17:59) Authored: Service, Subjective Data, Objective Data, Assessment and Plan Last Updated: 18-Nov-2018 17:59 by Dominic Preciado (TRAVEL AGENCY MANAGER-SCREENING TECHNICIAN) Normal [facility] [place] Daily Progress Note-Neurosur ravindrayon 11-18-2018 Protein mass conc Service: Neurosurger y Subjective Data: TRISH HUNT is a 73 year old Female who is Hospital Day # 7. Objective Data: Objective Information: T PRBPSpO2 Value37.58396513/7897% Date/Time11/18 11: 11: 11: 11: 11:29 Range(36.2C [...] Signatures: Huber Tamayo) (Signed 19-Nov-2018 14:01) Authored: Signature/Cosignature/Attes tation Co-Signer: Service, Subjective Data, Objective Data, Assessment and Plan, Signature/Cosignature/Attes tation Og Wylie (Resident)) (Signed 18-Nov-2018 19:41) Authored: Service, Subjective Data, Objective Data, Assessment and Plan, Signature/Cosignature/Attes tation Last Updated: 19-Nov-2018 14:01 by Huber Tamayo) Normal [facility] [place] Daily Progress Note-Pulmonol ogyon 11-18-2018 Daily Progress Note-Pulmonology Service: Pulmonology Subjective Data: TRISH HUNT is a 73 year old Female who is Hospital Day # 7. Additional Information: Ms. Hunt complained of pain today. She appeared confused and had rattling secretion noise during the interview. Objective Data: Objective Information: T PRBPSpO2 Value37.84076453/7897% Date/Time11/18 11: 11: 11: 11: 11:29 Range(36.2C [...] will sign off. Please contact us at #[phone] for any questions or change in clinical [...] Last Updated: 04-Dec-2018 18:31 by Jane Lewis) Normal [facility] [place] Nutrition Therapy-Assessment on 11-18-2018 Nutrition Therapy-Assessment Assessment Subjective/Objective: Note Type: Assessment Note Authored by: Registered Dietitian Lift Manager Pager Number: [phone] Nutrition Note: The patient is 73 year [...] present at this time Estimated Needs: kcals/day: 8436-7130 gms protein/day: ~85 mL fluid/day: 1 ml/kcal [...] desired Other Interventions: Pt declined having food service aide visit when offered by RDN, pt meal [...] 15:05 by Michelle Robbins (ERASTO, NATHAN) Normal [facility] [place] RENAL FUNCTION PANELon 11-18 Albumin mass conc 3.2 g/dL Low 3.4 - 5.0 [facility] [place] Comment on above: Performed By: #### C MP #### [facility] [address] [place] [address] Anion gap molar conc 10 mmol/L Normal 10 - 20 [facility] [place] Comment on above: Performed By: #### C MP #### [facility] [address] [place] [address] Calcium mass conc 8.8 mg/dL Normal 8.6 - 10.6 [facility] [place] Comment on above: Performed By: #### C MP #### [facility] [address] [place] [address] Chloride molar conc 106 mmol/L Normal 98 - 107 [facility] [place] Comment on above: Performed By: #### C MP #### [facility] [address] [place] [address] Creatinine mass conc 0.81 mg/dL Normal 0.50 - 1.05 [facility] [place] Comment on above: Performed By: #### C MP #### [facility] [address] [place] [address] GFR- AM. >60 Normal >60 [facility] [place] Comment on above: Result Comment: CALC ULATIONS OF ESTIMATED GFR ARE PERFORMED USING THE MDRD STUDY EQUATION FOR THE IDMS-TRACEABLE CREATININE METHODS. CLIN CHEM 2007;53:766-72 Performed By: #### C MP #### [facility] [address] [place] [address] GFR-NON AM. >60 Normal >60 [facility] [place] Comment on above: Performed By: #### C MP #### [facility] [address] [place] [address] Glucose mass conc 93 mg/dL Normal 74 - 99 [facility] [place] Comment on above: Performed By: #### C MP #### [facility] [address] [place] [address] HCO3 molar conc (Bld) 30 mmol/L Normal 21 - 32 [facility] [place] Comment on above: Performed By: #### C MP #### [facility] [address] [place] [address] Phosphate mass conc 3.2 mg/dL Normal 2.5 - 4.9 [facility] [place] Comment on above: Result Comment: The performance characteristics of phosphorus testing in heparinized plasma have been validated by the individual laboratory site where testing is performed. Testing on heparinized plasma is not approved by the FDA; however, such approval is not necessary. Performed By: #### C MP #### [facility] [address] [place] [address] Potassium molar conc 3.9 mmol/L Normal 3.5 - 5.3 [facility] [place] Comment on above: Performed By: #### C MP #### [facility] [address] [place] [address] Sodium molar conc 142 mmol/L Normal 136 - 145 [facility] [place] Comment on above: Performed By: #### C MP #### [facility] [address] [place] [address] Urea nitrogen mass conc 18 mg/dL Normal 6 - 23 [facility] [place] Comment on above: Performed By: #### C MP #### [facility] [address] [place] [address] CBCon 11-17-2018 Erythrocyte distribution width Ratio (RBC) 12.9 % Normal 11.5 - 14.5 [facility] [place] Comment on above: Performed By: #### L DH #### [facility] [address] [place] [address] Hematocrit Volume Fraction (Bld) 38.7 % Normal 36.0 - 46.0 [facility] [place] Comment on above: Performed By: #### L DH #### [facility] [address] [place] [address] Hemoglobin mass conc (Bld) 12.0 g/dL Normal 12.0 - 16.0 [facility] [place] Comment on above: Performed By: #### L DH #### [facility] [address] [place] [address] MCHC mass conc (RBC) 31.0 g/dL Low 32.0 - 36.0 [facility] [place] Comment on above: Performed By: #### L DH #### [facility] [address] [place] [address] MCV Entitic volume (RBC) 98 fL Normal 80 - 100 [facility] [place] Comment on above: Performed By: #### L DH #### [facility] [address] [place] [address] Nucleated RBC/100 WBC Ratio (Bld) 0.0 /100 WBC Normal 0.0-0.0 [facility] [place] Comment on above: Performed By: #### L DH #### [facility] [address] [place] [address] Platelets #/vol (Bld) 260 10*3/uL Normal 150 - 450 [facility] [place] Comment on above: Performed By: #### L DH #### [facility] [address] [place] [address] RBC #/vol (Bld) 3.93 x10E12/L Low 4.00 - 5.20 [facility] [place] Comment on above: Performed By: #### L DH #### [facility] [address] [place] [address] WBC #/vol (Bld) 7.6 10*3/uL Normal 4.4 - 11.3 [facility] [place] Comment on above: Performed By: #### L DH #### [facility] [address] [place] [address] Daily Progress Note-Medicine on 11-17-2018 Protein mass conc Service: Medicine Subjective Data: TRISH HUNT is a 73 year old Female who is Hospital Day # 6. 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 In Shared Visit with Dr. Oquendo Metastatic Lung CA Former smoker. Reported SOB and chest pain with deep breath at [place] ER presentation 11/11/18. A CT of the [...] mediastinal and bilateral hilar lymph nodes. -Follow [place] Pleural C&S and Cytology -Follow bronchoscopy / [...] Likely metastasis from lung CA. Presented to [facility] 11/11/18 with intractable progressive back pain [...] A CT Chest, Abdomen and Pelvis at [place] showed a suspected Pathologic fracture of the [...] given Decadron with request for [facility] for [facility] evaluation. Neurosurgery consulted and did [...] read the report and discussed with the SCREENING TECHNICIAN. PET CT (11/17) IMPRESSION: 1. Correlating with [...] reviewed the medications and discussed with the SCREENING TECHNICIAN. Medical decision making: an elderly female with [...] (Signed 17-Nov-2018 17:25) Authored: Signature/Cosignature/Attes Dominic Suarez ([facility] [facility]) (Signed 17-Nov-2018 18:22) Authored: Service, Subjective Data, Objective Data, Assessment and Plan Last Updated: 17-Nov-2018 18:22 by Dominic Preciado (TRAVEL AGENCY MANAGER-[facility]) Normal [facility] [place] Daily Progress Note-Neurosur geryon 11-17-2018 Protein mass conc Service: Neurosurger y Subjective Data: TRISH HUNT is a 73 year old Female who is Hospital Day # 5. Objective Data: Objective Information: T PRBPSpO2 [id number]/6598% Date/Time11/16 19: 19: 19: 19: 19:39 Range(36.1C [...] Signatures: Huber Tamayo) (Signed 18-Nov-2018 20:20) Authored: Signature/Cosignature/Attes tation Co-Signer: Service, Subjective Data, Objective Data, Assessment and Plan, Signature/Cosignature/Attes tation Og Wylie (Resident)) (Signed 16-Nov-2018 21:28) Authored: Service, Subjective Data, Objective Data, Assessment and Plan, Signature/Cosignature/Attes tation Last Updated: 18-Nov-2018 20:20 by Huber Tamayo) Normal [facility] [place] GLUCOSE-POCTon 11-17-2018 Glucose mass conc 96 mg/dL Normal 74 - 99 [facility] [place] Comment on above: Performed By: #### C MP #### [facility] [address] [address] PET/CT LUNG CA STAGINGon PET/CT LUNG CA STAGING Patient Name: TRISH HUNT STUDY: PET/CT LUNG CA STAGING; 11/17/2018 11:13 am INDICATION: Signs/Symptoms: Right bronchial obstruction with hilar lesion and presumed spinal mets. T10 vertebral body lesion with extension to the posterior elements. Right central middle lobe mass with lymphadenopathy. COMPARISON: Spine MRI on 11/15/[address] on 11/14/2018. ACCESSION NUMBER(S): [id number] ORDERING CLINICIAN: NESSA CARLOS TECHNIQUE: DIVISION OF [...] CODING: Initial Treatment Strategy (PI) CALIBRATION: Dose Jonuukvun-yf-Crqi Interval (mins): 67 min Mediastinal bloodpool SUV [...] as stated. This study was interpreted at [facility]. Electronically signed by: MARLON MIRANDA MD Normal [facility] [place] RENAL FUNCTION PANELon 11-17 Albumin mass conc 3.3 g/dL Low 3.4 - 5.0 [facility] [place] Comment on above: Performed By: #### L DH #### [facility] [address] [place] [address] Anion gap molar conc 10 mmol/L Normal 10 - 20 [facility] [place] Comment on above: Performed By: #### L DH #### [facility] [address] [place] [address] Calcium mass conc 9.0 mg/dL Normal 8.6 - 10.6 [facility] [place] Comment on above: Performed By: #### L DH #### [facility] [address] [place] [address] Chloride molar conc 105 mmol/L Normal 98 - 107 [facility] [place] Comment on above: Performed By: #### L DH #### [facility] [address] [place] [address] Creatinine mass conc 0.94 mg/dL Normal 0.50 - 1.05 [facility] [place] Comment on above: Performed By: #### L DH #### [facility] [address] [place] [address] GFR- AM. 70 mL/min/1.73m2 Normal >60 [facility] [place] Comment on above: Result Comment: CALC ULATIONS OF ESTIMATED GFR ARE PERFORMED USING THE MDRD STUDY EQUATION FOR THE IDMS-TRACEABLE CREATININE METHODS. CLIN CHEM 2007;53:766-72 Performed By: #### L DH #### [facility] [address] [place] [address] GFR-NON AM. 58 mL/min/1.73m2 Abnormal >60 [facility] [place] Comment on above: Performed By: #### L DH #### [facility] [address] [place] [address] Glucose mass conc 99 mg/dL Normal 74 - 99 [facility] [place] Comment on above: Performed By: #### L DH #### [facility] [address] [place] [address] HCO3 molar conc (Bld) 30 mmol/L Normal 21 - 32 [facility] [place] Comment on above: Performed By: #### L DH #### [facility] [address] [place] [address] Phosphate mass conc 3.9 mg/dL Normal 2.5 - 4.9 [facility] [place] Comment on above: Result Comment: The performance characteristics of phosphorus testing in heparinized plasma have been validated by the individual laboratory site where testing is performed. Testing on heparinized plasma is not approved by the FDA; however, such approval is not necessary. Performed By: #### L DH #### [facility] [address] [place] [address] Potassium molar conc 3.8 mmol/L Normal 3.5 - 5.3 [facility] [place] Comment on above: Performed By: #### L DH #### [facility] [address] [place] [address] Sodium molar conc 141 mmol/L Normal 136 - 145 [facility] [place] Comment on above: Performed By: #### L DH #### [facility] [address] [place] [address] Urea nitrogen mass conc 22 mg/dL Normal 6 - 23 [facility] [place] Comment on above: Performed By: #### L DH #### [facility] [address] [place] [address] CBCon 11-16-2018 Erythrocyte distribution width Ratio (RBC) 12.8 % Normal 11.5 - 14.5 [facility] [place] Comment on above: Performed By: #### L DH #### [facility] [address] [place] [address] Hematocrit Volume Fraction (Bld) 40.4 % Normal 36.0 - 46.0 [facility] [place] Comment on above: Performed By: #### L DH #### [facility] [address] [place] [address] Hemoglobin mass conc (Bld) 12.5 g/dL Normal 12.0 - 16.0 [facility] [place] Comment on above: Performed By: #### L DH #### [facility] [address] [place] [address] MCHC mass conc (RBC) 30.9 g/dL Low 32.0 - 36.0 [facility] [place] Comment on above: Performed By: #### L DH #### [facility] [address] [place] [address] MCV Entitic volume (RBC) 97 fL Normal 80 - 100 [facility] [place] Comment on above: Performed By: #### L DH #### [facility] [address] [place] [address] Nucleated RBC/100 WBC Ratio (Bld) 0.0 /100 WBC Normal 0.0-0.0 [facility] [place] Comment on above: Performed By: #### L DH #### [facility] [address] [place] [address] Platelets #/vol (Bld) 252 10*3/uL Normal 150 - 450 [facility] [place] Comment on above: Performed By: #### L DH #### [facility] [address] [place] [address] RBC #/vol (Bld) 4.18 x10E12/L Normal 4.00 - 5.20 [facility] [place] Comment on above: Performed By: #### L DH #### [facility] [address] [place] [address] WBC #/vol (Bld) 9.1 10*3/uL Normal 4.4 - 11.3 [facility] [place] Comment on above: Performed By: #### L DH #### [facility] [address] [place] [address] Erythrocyte distribution width Ratio (RBC) Canceled Normal [facility] [place] Comment on above: Order Comment: TEST CBC WAS CANCELLED, 11/16/2018 08:25 SPECIMEN CLOTTED.PLEASE RESUBMIT. Performed By: #### C OAGS #### [facility] [address] [place] [id number] Hematocrit Volume Fraction (Bld) Canceled Normal [facility] [place] Comment on above: Order Comment: TEST CBC WAS CANCELLED, 11/16/2018 08:25 SPECIMEN CLOTTED.PLEASE RESUBMIT. Performed By: #### C OAGS #### [facility] [address] [place] [address] Hemoglobin mass conc (Bld) Canceled Normal [facility] [place] Comment on above: Order Comment: TEST CBC WAS CANCELLED, 11/16/2018 08:25 SPECIMEN CLOTTED.PLEASE RESUBMIT. Performed By: #### C OAGS #### [facility] [address] [place] [id number] MCHC mass conc (RBC) Canceled Normal [facility] [place] Comment on above: Order Comment: TEST CBC WAS CANCELLED, 11/16/2018 08:25 SPECIMEN CLOTTED.PLEASE RESUBMIT. Performed By: #### C OAGS #### [facility] [address] [place] [address] MCV Entitic volume (RBC) Canceled Normal [facility] [place] Comment on above: Order Comment: TEST CBC WAS CANCELLED, 11/16/2018 08:25 SPECIMEN CLOTTED.PLEASE RESUBMIT. Performed By: #### C OAGS #### [facility] [address] [place] [address] Nucleated RBC/100 WBC Ratio (Bld) Canceled Normal [facility] [place] Comment on above: Order Comment: TEST CBC WAS CANCELLED, 11/16/2018 08:25 SPECIMEN CLOTTED.PLEASE RESUBMIT. Performed By: #### C OAGS #### [facility] [address] [place] [address] Platelets #/vol (Bld) Canceled Normal [facility] [place] Comment on above: Order Comment: TEST CBC WAS CANCELLED, 11/16/2018 08:25 SPECIMEN CLOTTED.PLEASE RESUBMIT. Performed By: #### C OAGS #### [facility] [address] [place] [address] RBC #/vol (Bld) Canceled Normal [facility] [place] Comment on above: Order Comment: TEST CBC WAS CANCELLED, 11/16/2018 08:25 SPECIMEN CLOTTED.PLEASE RESUBMIT. Performed By: #### C OAGS #### [facility] [address] [place] [address] WBC #/vol (Bld) Canceled Normal [facility] [place] Comment on above: Order Comment: TEST CBC WAS CANCELLED, 11/16/2018 08:25 SPECIMEN CLOTTED.PLEASE RESUBMIT. Performed By: #### C OAGS #### [facility] [address] [place] [address] COMPREHENSIVE PANELon 2018 Albumin mass conc 3.5 g/dL Normal 3.4 - 5.0 [facility] [place] Comment on above: Performed By: #### L DH #### [facility] [address] [place] [address] ALP enzyme act/vol 37 U/L Normal 33 - 136 [facility] [place] Comment on above: Performed By: #### L DH #### [facility] [address] [place] [address] ALT enzyme act/vol 14 U/L Normal 7 - 45 [facility] [place] Comment on above: Result Comment: Judi ents treated with Sulfasalazine may generate falsely decreased results for ALT. Performed By: #### L DH #### [facility] [address] [place] [address] Anion gap molar conc 13 mmol/L Normal 10 - 20 [facility] [place] Comment on above: Performed By: #### L DH #### [facility] [address] [place] [address] AST enzyme act/vol 17 U/L Normal 9 - 39 [facility] [place] Comment on above: Performed By: #### L DH #### [facility] [address] [place] [address] Bilirubin mass conc 0.6 mg/dL Normal 0.0 - 1.2 [facility] [place] Comment on above: Performed By: #### L DH #### [facility] [address] [place] [address] Calcium mass conc 8.9 mg/dL Normal 8.6 - 10.6 [facility] [place] Comment on above: Performed By: #### L DH #### [facility] [address] [place] [address] Chloride molar conc 104 mmol/L Normal 98 - 107 [facility] [place] Comment on above: Performed By: #### L DH #### [facility] [address] [place] [address] Creatinine mass conc 0.87 mg/dL Normal 0.50 - 1.05 [facility] [place] Comment on above: Performed By: #### L DH #### [facility] [address] [place] [address] GFR- AM. >60 Normal >60 [facility] [place] Comment on above: Result Comment: CALC ULATIONS OF ESTIMATED GFR ARE PERFORMED USING THE MDRD STUDY EQUATION FOR THE IDMS-TRACEABLE CREATININE METHODS. CLIN CHEM 2007;53:766-72 Performed By: #### L DH #### [facility] [address] [place] [address] GFR-NON AM. >60 Normal >60 [facility] [place] Comment on above: Performed By: #### L DH #### [facility] [address] [place] [address] Glucose mass conc 140 mg/dL High 74 - 99 [facility] [place] Comment on above: Performed By: #### L DH #### [facility] [address] [place] [address] HCO3 molar conc (Bld) 27 mmol/L Normal 21 - 32 [facility] [place] Comment on above: Performed By: #### L DH #### [facility] [address] [place] [address] Potassium molar conc 3.9 mmol/L Normal 3.5 - 5.3 [facility] [place] Comment on above: Performed By: #### L DH #### [facility] [address] [place] [address] Protein mass conc 6.1 g/dL Low 6.4 - 8.2 [facility] [place] Comment on above: Performed By: #### L DH #### [facility] [address] [place] [address] Sodium molar conc 140 mmol/L Normal 136 - 145 [facility] [place] Comment on above: Performed By: #### L DH #### [facility] [address] [place] [address] Urea nitrogen mass conc 22 mg/dL Normal 6 - 23 [facility] [place] Comment on above: Performed By: #### L DH #### [facility] [address] [place] [address] Albumin mass conc Canceled Normal [facility] [place] Comment on above: Order Comment: TEST COMPREHENSIVE PANEL WAS CANCELLED, 11/16/2018 09:12 CONTAMINATION. Performed By: #### L DH #### [facility] [address] [place] [address] ALP enzyme act/vol Canceled Normal [facility] [place] Comment on above: Order Comment: TEST COMPREHENSIVE PANEL WAS CANCELLED, 11/16/2018 09:12 CONTAMINATION. Performed By: #### L DH #### [facility] [address] [place] [address] ALT enzyme act/vol Canceled Normal [facility] [place] Comment on above: Order Comment: TEST COMPREHENSIVE PANEL WAS CANCELLED, 11/16/2018 09:12 CONTAMINATION. Result Comment: Judi ents treated with Sulfasalazine may generate falsely decreased results for ALT. Performed By: #### L DH #### [facility] [address] [place] [address] Anion gap molar conc Canceled Normal [facility] [place] Comment on above: Order Comment: TEST COMPREHENSIVE PANEL WAS CANCELLED, 11/16/2018 09:12 CONTAMINATION. Performed By: #### L DH #### [facility] [address] [place] [address] AST enzyme act/vol Canceled Normal [facility] [place] Comment on above: Order Comment: TEST COMPREHENSIVE PANEL WAS CANCELLED, 11/16/2018 09:12 CONTAMINATION. Performed By: #### L DH #### [facility] [address] [place] [address] Bilirubin mass conc Canceled Normal [facility] [place] Comment on above: Order Comment: TEST COMPREHENSIVE PANEL WAS CANCELLED, 11/16/2018 09:12 CONTAMINATION. Performed By: #### L DH #### [facility] [address] [place] [address] Calcium mass conc Canceled Normal [facility] [place] Comment on above: Order Comment: TEST COMPREHENSIVE PANEL WAS CANCELLED, 11/16/2018 09:12 CONTAMINATION. Performed By: #### L DH #### [facility] [address] [place] [address] Chloride molar conc Canceled Normal [facility] [place] Comment on above: Order Comment: TEST COMPREHENSIVE PANEL WAS CANCELLED, 11/16/2018 09:12 CONTAMINATION. Performed By: #### L DH #### [facility] [address] [place] [address] Creatinine mass conc Canceled Normal [facility] [place] Comment on above: Order Comment: TEST COMPREHENSIVE PANEL WAS CANCELLED, 11/16/2018 09:12 CONTAMINATION. Performed By: #### L DH #### [facility] [address] [place] [address] GFR- AM. Canceled Normal [facility] [place] Comment on above: Order Comment: TEST COMPREHENSIVE PANEL WAS CANCELLED, 11/16/2018 09:12 CONTAMINATION. Result Comment: CALC ULATIONS OF ESTIMATED GFR ARE PERFORMED USING THE MDRD STUDY EQUATION FOR THE IDMS-TRACEABLE CREATININE METHODS. CLIN CHEM 2007;53:766-72 Performed By: #### L DH #### [facility] [address] [place] [address] GFR-NON AM. Canceled Normal [facility] [place] Comment on above: Order Comment: TEST COMPREHENSIVE PANEL WAS CANCELLED, 11/16/2018 09:12 CONTAMINATION. Performed By: #### L DH #### [facility] [address] [place] [address] Glucose mass conc Canceled Normal [facility] [place] Comment on above: Order Comment: TEST COMPREHENSIVE PANEL WAS CANCELLED, 11/16/2018 09:12 CONTAMINATION. Performed By: #### L DH #### [facility] [address] [place] [address] HCO3 molar conc (Bld) Canceled Normal [facility] [place] Comment on above: Order Comment: TEST COMPREHENSIVE PANEL WAS CANCELLED, 11/16/2018 09:12 CONTAMINATION. Performed By: #### L DH #### [facility] [address] [place] [address] Potassium molar conc Canceled Normal [facility] [place] Comment on above: Order Comment: TEST COMPREHENSIVE PANEL WAS CANCELLED, 11/16/2018 09:12 CONTAMINATION. Performed By: #### L DH #### [facility] [address] [place] [address] Protein mass conc Canceled Normal [facility] [place] Comment on above: Order Comment: TEST COMPREHENSIVE PANEL WAS CANCELLED, 11/16/2018 09:12 CONTAMINATION. Performed By: #### L DH #### [facility] [address] [place] [address] Sodium molar conc Canceled Normal [facility] [place] Comment on above: Order Comment: TEST COMPREHENSIVE PANEL WAS CANCELLED, 11/16/2018 09:12 CONTAMINATION. Performed By: #### L DH #### [facility] [address] [place] [address] Urea nitrogen mass conc Canceled Normal [facility] [place] Comment on above: Order Comment: TEST COMPREHENSIVE PANEL WAS CANCELLED, 11/16/2018 09:12 CONTAMINATION. Performed By: #### L DH #### [facility] [address] [place] [address] Consult-Oncologyon 9 Consult-Oncology Service: Service: Oncology Consult: Consult requested by (Attending Name): Dr. Yusuf Reason: lung mass, with suspected bone mets History of Present Illness: Admission Reason: t10 lesion on CT HPI: 73 year old woman with HTN, hypothyroidism, DM presenting to [facility] 11/11 for 2 weeks of intractable [...] fever or chills. [facility] spine 11/15: expansile osseous lesion most [...] lisinopril: Unknown Objective: Objective Information: T PRBPSpO2 [id number]/7298% Date/Time11/16 12: 12: 12: 12: 12:21 Range(36.1C [...] Musculoskeletal: tender to palpation bilateral shins Extremities: MAGO Neurological: alert Lymphatic: no cervical LAD Psychological: [...] laboratory results: Complete Blood Count Trending View [id number] 11:32:00 15-Nov-2018 05:35:00 White Blood Cell Count9.1 7.2 Nucleated Erythrocyte Count0.0 0.0 Red Blood Cell Count4.18 3.98 L HGB12.5 12.3 HCT40.4 40.7 MCV97 102 H MCHC30.9 L 30.2 L [id number] 255 RDW-CV12.8 13.2 Comprehensive Metabolic Panel 16-Nov-2018 [...] Reference Range: STRAW,YELLOW Appearance, Urine CLEAR Specific [place], Urine 1.017 pH, Urine 6.0 Protein, Urine [...] is recommended. The study was interpreted at [facility]. MRI Cervical w/wo Contrast [Nov 15 [...] is recommended. The study was interpreted at [facility]. MRI T Spine w/wo Contrast [Nov [...] is recommended. The study was interpreted at [facility]. MRI L Spine w/wo Contrast [Nov [...] woman with HTN, hypothyroidism, DM presenting to [facility] 11/11 for 2 weeks of intractable [...] if in fact NSCLC. 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 Matt Doan MD Special Effects Specialist in Medicine [facility] [employer] /Cutaneous Malignancies [facility] Office [phone] / [phone] Patient line [phone] Electronic Signatures: Alberto Soares (Fellow)) (Signed 16-Nov-2018 13:51) Authored: Service, History of Present Illness, Review Family/Social History and ROS, Allergies, Objective, Assessment/Recommendations, Signature/Cosignature/Attes tation Matt Doan) (Signed 16-Nov-2018 20:39) Authored: Signature/Cosignature/Attes tation Co-Signer: Service, History of Present Illness, Review Family/Social History and ROS, Allergies, Objective, Assessment/Recommendations, Signature/Cosignature/Attes tation Last Updated: 16-Nov-2018 20:39 by Matt Doan) Normal [facility] [place] Daily Progress Note-Medicine on 11-16-2018 Protein mass conc Service: Medicine Subjective Data: TRISH HUNT is a 73 year old Female who is Hospital Day # 5. Oh, the pain is still here on my side. I can't go to the bathroom in the bed.". Overnight Events: Patient had an uneventful night. Additional Information: Denies further nausea and vomiting. [facility] states she was comfortable through night and [...] Cholecystectomy - L4-L5 Decompression 1999 T PRBPSpO2 [id number]/7197% Date/Time11/16 14: 14: 14: 14: 14:43 Range(36.1C [...] laboratory results: Complete Blood Count Trending View [id number] 11:32:00 15-Nov-2018 05:35:00 White Blood Cell Count9.1 7.2 Nucleated Erythrocyte Count0.0 0.0 Red Blood Cell Count4.18 3.98 L HGB12.5 12.3 HCT40.4 40.7 MCV97 102 H MCHC30.9 L 30.2 L [id number] 255 RDW-CV12.8 13.2 Comprehensive Metabolic Panel 16-Nov-2018 [...] Cord Stimulator Implant who is transferred to [facility] 11[facility]18 from [facility] after presenting with intractable progressive back pain with SOB and found on imaging to have a lung mass with adenopathy and suspected spinal metastasis for neurosurgical evaluation and further care. . PLAN: In Shared Visit with Dr. Casimiro Yusuf 1) METASTATIC LUNG MALIGNANCY: Former smoker. Reported SOB and chest pain with deep breath at [place] ER presentation 11/11/18. A CT of the [...] origin (based on prelim cytology). 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 Presented to [facility] 11/11/18 with intractable progressive back pain [...] A CT Chest, Abdomen and Pelvis at [place] showed a suspected Pathologic fracture of the [...] given Decadron with request for transfer to [facility] for Neurosurgery evaluation. Neurosurgery consulted and did [...] at bedside and supportive ----- PCP: Dr. Harjinder Braswell [phone] Urology: Dr. Earnest Herrera Pharmacy: [facility] ([place]) [phone] DME: [employer] Insurer: [employer] Medicare Family: / [facility] Healthcare - Kin Hunt [phone] Dtr. / 1st Alt. POA - Annita Sin [phone] / [phone] Dtr. / 2nd Alt. POA HC - Dionne Wilkes [phone] Signature/Cosignature/Attes tation: Provider/Team Contact Info-Pager Miriam Carlos CNP # [id number] Attending Only - Shared Visit with Advanced Practice ProviderThis is a shared visit. I have reviewed the Advanced Practice Providers encounter note, approve the Advanced Practice Providers documentation, and provide the following additional information from my personal encounter. Comments/ Additional Findings Seen with the PLUMBER PIPE FITTING. Upset about her overactive bladder, frequent urination. [...] morphine tonight. PT/OT Electronic Signatures: Nessa Carlos ([employer]AVEL AGENCY MANAGER-SCREENING TECHNICIAN) (Signed 17-Nov-2018 01:36) Authored: Service, Subjective Data, Objective Data, Assessment and Plan, Signature/Cosignature/Attes tation Casimiro Yusuf) (Signed 16-Nov-2018 18:00) Authored: Signature/Cosignature/Attes tation Last Updated: 17-Nov-2018 01:36 by Nessa Carlos (TRAVEL AGENCY MANAGER-SCREENING TECHNICIAN) Normal [facility] [place] Daily Progress Note-Charity weldon 11-16-2018 Protein mass conc Service: Neurosurger y Subjective Data: TRISH HUNT is a 73 year old Female who is Hospital Day # 4. Objective Data: Objective Information: T PRBPSpO2 Value36.20443828/6796% Date/Time11/15 7: 7: 7: 7: 7:25 Range(36.6C [...] MD Resident Physician Department of Neurological Surgery [facility] [email or web address] Neurosurgery Pager: [phone] Personal Pager: [phone] Signature/Cosignature/Attes tation: Attending AttestationI reviewed the resident/fellows [...] Updated: 16-Nov-2018 11:27 by Titus Conner) Normal [facility] [place] Daily Progress Note-Pulmonol ogyon 11-16-2018 Daily Progress [...] complaints. Objective Data: Objective Information: T PRBPSpO2 Value36.94731374/7097% Date/Time11/16 7: 7: 7: 7: 7:07 Range(36.1C [...] and please feel free to page at #[phone] for any further questions. Signature/Cosignature/Attes tation: Attending [...] Updated: 16-Nov-2018 18:34 by Jane Lewis) Normal [facility] [place] CBCon 11-15-2018 Erythrocyte distribution width Ratio (RBC) 13.2 % Normal 11.5 - 14.5 [facility] [place] Comment on above: Performed By: #### C OAGS #### [facility] [address] [place] [address] Hematocrit Volume Fraction (Bld) 40.7 % Normal 36.0 - 46.0 [facility] [place] Comment on above: Performed By: #### C OAGS #### [facility] [address] [place] [address] Hemoglobin mass conc (Bld) 12.3 g/dL Normal 12.0 - 16.0 [facility] [place] Comment on above: Performed By: #### C OAGS #### [facility] [address] [place] [address] MCHC mass conc (RBC) 30.2 g/dL Low 32.0 - 36.0 [facility] [place] Comment on above: Performed By: #### C OAGS #### [facility] [address] [place] [address] MCV Entitic volume (RBC) 102 fL High 80 - 100 [facility] [place] Comment on above: Performed By: #### C OAGS #### [facility] [address] [place] [address] Nucleated RBC/100 WBC Ratio (Bld) 0.0 /100 WBC Normal 0.0-0.0 [facility] [place] Comment on above: Performed By: #### C OAGS #### [facility] [address] [place] [address] Platelets #/vol (Bld) 255 10*3/uL Normal 150 - 450 [facility] [place] Comment on above: Performed By: #### C OAGS #### [facility] [address] [place] [address] RBC #/vol (Bld) 3.98 x10E12/L Low 4.00 - 5.20 [facility] [place] Comment on above: Performed By: #### C OAGS #### [facility] [address] [place] [address] WBC #/vol (Bld) 7.2 10*3/uL Normal 4.4 - 11.3 [facility] [place] Comment on above: Performed By: #### C OAGS #### [facility] [address] [place] [address] Clinical Event Noteon 12-31- 2018 Clinical Event Note Event: Details: patient was seen after she came back from the procedure, they were xiomy to do mri and [facility] , looks like it is non small [...] obesity, hypothyroidism, HLD, presenting as transfer from [facility] after initially presenting there with subacute low [...] Last Updated: 15-Nov-2018 18:28 by Neena Grullon) Normal [facility] [place] Daily Progress Note-Medicine on 11-15-2018 Protein mass [...] Cholecystectomy - L4-L5 Decompression 1999 T PRBPSpO2 Value36.70999711/8396% Date/Time11/15 17: 17: 17: 17: 17:56 Range(36.6C [...] RDW-CV 13.2 Renal Function Panel Trending View Iylxhg72-Ysq-9489 05:35:00 14-Nov-2018 06:57:00 Glucose, Serum91 132 H NA142 143 K4.0 4.1 CL106 108 H Bicarbonate, Serum28 26 Anion Gap, Serum12 13 BUN27 H 32 H CREAT0.96 1.12 H GFR-Non Sdvgdzla14 A 47 A GFR- Nqzbdhrb92 57 A Calcium, Serum8.7 9.2 Phosphorus, Serum5.9 [...] Cord Stimulator Implant who [facility] from [facility] after presenting with intractable progressive back pain with SOB and found on imaging to have a lung mass with adenopathy and suspected spinal metastasis for neurosurgical evaluation and further care. . PLAN: In Shared Visit with Dr. Neena Grullon 1) METASTATIC LUNG MALIGNANCY: Former smoker. Reported SOB and chest pain with deep breath at [place] ER presentation 11/11/18. A CT of the [...] (based on prelim cytology). Recommend: - follow [place] Pleural C&S and Cytology - Follow bronchoscopy / EBUS cytology on lymph node sampling - consult Oncology in a.m. 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 Presented to [facility] 11/11/18 with intractable progressive back pain [...] A CT Chest, Abdomen and Pelvis at [place] showed a suspected Pathologic fracture of the [...] given Decadron with request for transfer to [facility] for Neurosurgery evaluation. Neurosurgery consulted and did [...] 1.2 post contrast with baseline 1.0 at [place].. Creatinine 1.0 today - IV NS at [...] at bedside and supportive ----- PCP: Dr. Harjinder Braswell [phone] Urology: Dr. Earnest Herrera Pharmacy: [facility] ([place]) [phone] DME: [employer] Ins[facility] Medicare Family: / POA Healthcare - Kin Hunt [phone] Dtr. / 1st Alt. POA - Annita Christiannington [phone] / [phone] Dtr. / 2nd Alt. POA - Dionne Wilkes [phone] Signature/Cosignature/Attes tation: Provider/Team Contact Info-Pager Miriam Carlos CNP # [phone] Comments/ Additional Findings please see my clinical event note Electronic Signatures: Nessa Carlos (TRAVEL AGENCY MANAGER-SCREENING TECHNICIAN) (Signed 15-Nov-2018 21:24) Authored: Service, Subjective Data, Objective Data, Assessment and Plan, Signature/Cosignature/Attes tation Neena Grullon) (Signed 21-Nov-2018 08:25) Authored: Signature/Cosignature/Attes tation Co-Signer: Assessment and Plan, Signature/Cosignature/Attes tation Last Updated: 21-Nov-2018 08:25 by Neena Grullon) Normal [facility] [place] Daily Progress Note-Charity weldon 11-15-2018 Protein mass conc Service: Neurosurger y Subjective Data: TRISH HUNT is a 73 year old Female who is Hospital Day # 4. Objective Data: Objective Information: T PRBPSpO2 [id number]/7097% Date/Time11/15 3: 3: 3: 3: 3:41 Range(36.4C [...] MD Resident Physician Department of Neurological Surgery [facility] [email or web address] Neurosurgery Pager: [phone] Personal Pager: [phone] Signature/Cosignature/Attes tation: Attending AttestationI reviewed the resident/fellows [...] Signature/Cosignature/Attes tation Last Updated: 16-Nov-2018 09:18 by Huber Tamayo) Normal [facility] [place] Daily Progress Note-Pulmonol ogyon 11-15-2018 Daily Progress Note-Pulmonology Service: Pulmonology Subjective Data: TRISH HUNT is a 73 year old Female who is Hospital Day # 4. Additional Information: Patient complained of back pain on minimal movement. Denied any other complaints. Objective Data: Objective Information: T PRBPSpO2 Value36.98087066/8396% Date/Time11/15 17: 17: 17: 17: 17:56 Range(36.6C [...] is recommended. The study was interpreted at [facility]. MRI Cervical w/wo Contrast [Nov 15 [...] and please feel free to page at #[phone] for any further questions. Signature/Cosignature/Attes tation: Attending [...] Updated: 03-Dec-2018 22:29 by Jane Lewis) Normal [facility] [place] GLUCOSE-POCTon 11-15-2018 Glucose mass conc 118 mg/dL High 74 - 99 [facility] [place] Comment on above: Performed By: #### C OAGS #### [facility] [address] [address] NR MR CERVICAL WO/W CONTRAST on 11-15-2018 [...] No, O2: No. COMPARISON: None. ACCESSION NUMBER(S): [id number]; [id number]; [id number] ORDERING CLINICIAN: NEENA GRULLON TECHNIQUE: Sagittal STIR, [...] to moderate central canal narrowing. There is uqny-yi-lywbuvzb encroachment upon the neural foramina bilaterally. At [...] is recommended. The study was interpreted at [facility]. Electronically signed by: ADRIANA DIETZ MD Normal [facility] [place] NR MR L-SPINE WO/W CONTRASTo n 11-15-2018 [...] No, O2: No. COMPARISON: None. ACCESSION NUMBER(S): [id number]; [id number]; [id number] ORDERING CLINICIAN: NEENA GRULLON TECHNIQUE: Sagittal STIR, [...] to moderate central canal narrowing. There is edyl-it-oobqwppy encroachment upon the neural foramina bilaterally. At [...] is recommended. The study was interpreted at [facility]. Electronically signed by: ADRIANA DIETZ MD [facility] NR MR T-SPINE WO/Won 018 NR MR [...] No, O2: No. COMPARISON: None. ACCESSION NUMBER(S): [id number]; [id number]; [id number] ORDERING CLINICIAN: NEENA GRULLON TECHNIQUE: Sagittal STIR, [...] to moderate central canal narrowing. There is ifjq-tx-cplfiehj encroachment upon the neural foramina bilaterally. At [...] is recommended. The study was interpreted at [facility]. Electronically signed by: ADRIANA DIETZ MD [facility] RENAL FUNCTION PANELon 11-15 Albumin mass conc 3.1 g/dL Low 3.4 - 5.0 [facility] [place] Comment on above: Performed By: #### C OAGS #### [facility] [address] [place] [address] Anion gap molar conc 12 mmol/L Normal 10 - 20 [facility] [place] Comment on above: Performed By: #### C OAGS #### [facility] [address] [place] [address] Calcium mass conc 8.7 mg/dL Normal 8.6 - 10.6 [facility] [place] Comment on above: Performed By: #### C OAGS #### [facility] [address] [place] [address] Chloride molar conc 106 mmol/L Normal 98 - 107 [facility] [place] Comment on above: Performed By: #### C OAGS #### [facility] [address] [place] [address] Creatinine mass conc 0.96 mg/dL Normal 0.50 - 1.05 [facility] [place] Comment on above: Performed By: #### C OAGS #### [facility] [address] [place] [address] GFR- AM. 69 mL/min/1.73m2 Normal >60 [facility] [place] Comment on above: Result Comment: CALC ULATIONS OF ESTIMATED GFR ARE PERFORMED USING THE MDRD STUDY EQUATION FOR THE IDMS-TRACEABLE CREATININE METHODS. CLIN CHEM 2007;53:766-72 Performed By: #### C OAGS #### [facility] [address] [place] [address] GFR-NON AM. 57 mL/min/1.73m2 Abnormal >60 [facility] [place] Comment on above: Performed By: #### C OAGS #### [facility] [address] [place] [address] Glucose mass conc 91 mg/dL Normal 74 - 99 [facility] [place] Comment on above: Performed By: #### C OAGS #### [facility] [address] [place] [address] HCO3 molar conc (Bld) 28 mmol/L Normal 21 - 32 [facility] [place] Comment on above: Performed By: #### C OAGS #### [facility] [address] [place] [address] Phosphate mass conc 5.9 mg/dL High 2.5 - 4.9 [facility] [place] Comment on above: Result Comment: The performance characteristics of phosphorus testing in heparinized plasma have been validated by the individual laboratory site where testing is performed. Testing on heparinized plasma is not approved by the FDA; however, such approval is not necessary. Performed By: #### C OAGS #### [facility] [address] [place] [address] Potassium molar conc 4.0 mmol/L Normal 3.5 - 5.3 [facility] [place] Comment on above: Performed By: #### C OAGS #### [facility] [address] [place] [address] Sodium molar conc 142 mmol/L Normal 136 - 145 [facility] [place] Comment on above: Performed By: #### C OAGS #### [facility] [address] [place] [address] Urea nitrogen mass conc 27 mg/dL High 6 - 23 [facility] [place] Comment on above: Performed By: #### C OAGS #### [facility] [address] [place] [address] [facility] Cytologyon 11-15-2018 [facility] Cytology ADDENDUM Patient Name TRISH HUNT [...] this case. 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 Pathologist: ADRIANA ZAPATA M.D. Date: 11/15/2018 Clinical History RIGHT HILAR MASS. MEDIESTINAL LYMPHODENOPATHY Source of Specimen A: FINE NEEDLE ASPIRATION 11 RS LYMPH NODE B: FINE NEEDLE ASPIRATION 7 LYMPH NODE Specimen Submitted as: A: FINE NEEDLE ASPIRATION 11 RS LYMPH NODE pap stain non-chief commercial officer, Pap conventional Diff Quick, CELL BLOCK, H AND E, Initial B: FINE NEEDLE ASPIRATION 7 LYMPH NODE pap stain non-chief commercial officer, Pap conventional Diff Quick, CELL BLOCK, H AND E, Initial, IH p40, IH TTF-1, IH MD Recut, PD-L1 22C3, IH MD US PLUS, IH MD US PLUS, IH US PLUS, IH US PLUS, IH US PLUS, IH US PLUS, IH US PLUS, IH MD US PLUS, IH MD US PLUS, IH MD US PLUS, IH MD US PLUS, IH MD US PLUS, IH MD US PLUS, IH MD US PLUS, IH MD US PLUS, IH MD Recut, NGS Focused Solid Tumor Assay(DNA/RNA) Gross Description A. FINE NEEDLE [id number] RS LYMPH NODE: 1 DIFF QUICK SLIDE,1 [...] tissue using the Optiview detection on a [place] BenchMark Ultra. The specimen submitted for testing [...] the Department of Pathology Immunohistochemistry Lab at [facility]. The FDA does not require this [...] Tumor Assay SPECIMEN: FFPE, Lymph Node, FNA, [id number] B1 DISEASE DIAGNOSIS: Adenocarcinoma DATE OF COLLECTION: [...] analytical performance characteristics have been determined by [facility]. This test has not been cleared or approved by the FDA; however, the FDA has determined that such approval is not necessary. The [facility] is certified under the Clinical Laboratory [...] the Department of Pathology Immunohistochemistry Labs at [facility]. The FDA does not require this [...] and negative controls which stained appropriately. Normal [facility] [place] Comment on above: Performed By: #### C MP #### [facility] [address] [place] [address] Daily Progress Note-Medicine on 11-14-2018 Protein mass [...] Cholecystectomy - L4-L5 Decompression 1999 T PRBPSpO2 Value36.54540316/36633% Date/Time11/14 11: 11: 11: 11: 11: Range(36.4C - 36.9C ) (83 - 92 [...] laboratory results: Renal Function Panel Trending View Fpnsct56-Suu-9095 06:57:00 13-Nov-2018 12:20:00 Glucose, Mskgw067 H 158 H NA143 140 K4.1 4.7 CL108 H 107 Bicarbonate, Serum26 23 Anion Gap, Serum13 15 BUN32 H 22 CREAT1.12 H 1.17 H GFR-Non Ffsrqmxi25 A 45 A GFR- Pxbmjkjh09 A 54 A Calcium, Serum9.2 9.1 Phosphorus, [...] Cord Stimulator Implant who is [facility] from [facility] after presenting with intractable progressive back pain with SOB and found on imaging to have a lung mass with adenopathy and suspected spinal metastasis for neurosurgical evaluation and further care. . PLAN: In Shared Visit with Dr. Neena Grullon 1) SUSPECTED LUNG MALIGNANCY: Former smoker. Reported SOB and chest pain with deep breath at [place] ER presentation 11/11/18. A CT of the [...] without lesions. Pulmonology consulted yesterday - follow [place] Pleural C&S and Cytology - NPO after midnight for potential diagnostic bronchoscopy - hold Lovenox - PET-CT in a.m. 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 Presented to [facility] 11/11/18 with intractable progressive back pain [...] A CT Chest, Abdomen and Pelvis at [place] showed a suspected Pathologic fracture of the [...] given Decadron with request for transfer to [facility] for Neurosurgery evaluation. Neurosurgery consulted and did [...] 1.2 post contrast with baseline 1.0 at [place].. Creatinine 1.1 today, but now having emesis [...] - await PT evaluation. ----- PCP: Dr. Harjinder Braswell [phone] Urology: Dr. Earnest Herrera Pharmacy: [facility] [phone] Insurer: [employer] Medicare Family: / POA Healthcare - Kin Hunt [phone] Dtr. / 1st Alt. POA - Annita Sin [phone] / [phone] Dtr. / 2nd Alt. [facility] - Dionne Wilkes [phone] Signature/Cosignature/Attes tation: Provider/Team Contact Info-Pager Miriam Carlos [facility] # [phone] Comments/ Additional Findings patient has back pain [...] obesity, hypothyroidism, HLD, presenting as transfer from [facility] after initially presenting there with subacute low [...] for the results. Electronic Signatures: Nessa Carlos (TRAVEL AGENCY MANAGER-SCREENING TECHNICIAN) (Signed 15-Nov-2018 00:17) Authored: Service, Subjective Data, Objective Data, Assessment and Plan, Signature/Cosignature/Attes tation Neena Grullon) (Signed 14-Nov-2018 16:26) Authored: Signature/Cosignature/Attes tation Last Updated: 15-Nov-2018 00:17 by Nessa Carlos (TRAVEL AGENCY MANAGER-SCREENING TECHNICIAN) Normal [facility] [place] Daily Progress Note-Neurosprakash weldon 11-14-2018 Protein mass conc Service: Neurosurger y Subjective Data: TRISH HUNT is a 73 year old Female who is Hospital Day # 2. Objective Data: Objective Information: T PRBPSpO2 Value36.42295118/6895% Date/Time11/13 15: 15: 15: 15: 15:27 Range(36.3C [...] MD Resident Physician Department of Neurological Surgery [facility] [email or web address] Neurosurgery Pager: [phone] Personal Pager: [phone] Signature/Cosignature/Attes tation: Attending AttestationI reviewed the resident/fellows documentation and discussed the patient with the resident/fellow. I agree with the resident/fellows medical decision making as documented in the residents note. Electronic Signatures: Huber Tamayo) (Signed 14-Nov-2018 10:21) Authored: Signature/Cosignature/Attes tation Co-Signer: Service, Subjective Data, Objective Data, Assessment and Plan, Signature/Cosignature/Attes tation Abiel Markham (Resident)) (Signed 13-Nov-2018 18:20) Authored: Service, Subjective Data, Objective Data, Assessment and Plan, Signature/Cosignature/Attes tation Last Updated: 14-Nov-2018 10:21 by Huber Tamayo) Normal [facility] [place] Daily Progress Note-Pulmonol ogyon 11-14-2018 Daily Progress [...] ago Objective Data: Objective Information: T PRBPSpO2 Value36.82482828/71569% Date/Time11/14 15: 15: 15: 15: 15:46 Range(36.4C [...] with new onset back pain presenting to [facility], found to have spinal lesions, impending cord compression at T10 (by imaging) and R hilar mas with mediastinal adenopathy. Pulmonary consult for tissue diagnosis. [place] Mass and adenopathy with spinal lesions -most likely a primary lung lesion given smoking history and presentation although cannot exclude other malignancy -agree with PET scan for staging -f/u cytology from thoracentesis at [facility] -plan for bronchscopy tomorrow--please keep NPO after midnight, hold lovenox tonight and tomorrow morning. Discussed with Dr. Lewis Will continue to follow, call consult pager [phone] with any questions Signature/Cosignature/Attes tation: Attending AttestationI [...] Updated: 03-Dec-2018 22:26 by Jane Lewis) Normal [facility] [place] Discharge Djotgjk3wy 12-30-2 018 Protein mass conc Discharge Orders: Anticipated Discharge Date: Anticipated Discharge [id number] Problem List: Prelim Disch Dx: HCAP (healthcare-associated [...] w/Allograft 11/2018: Past Surgical History L4-L5 Decompression 1999: Past Surgical History Cholecystectomy: Past Surgical History [...] History Hospital Providers: Provider RoleProvider Name Nurse Nessa Gregory Aaron DNAR: DNAR Statusnone Activity: activity with [...] persistent back pain who was [facility] from [facility] after presenting there on 11/11/18 with [...] given Decadron with request for transfer to [facility] under Oncology for further evaluation by Neurosurgery. [...] leg edema. A referral was made to [facility] for Oncology and Radiation Oncology [...] Therapy Orders: Occupational Therapy OrdersEval and Treat ([facility]) daily Physical Therapy OrdersEval and Treat ([facility]) daily Provider Follow Up: Primary Care PhysicianDr. Harjinder Braswell Primary Care Physician Phone [phone] Physician To Follow at Skilled/RehabAttending Physician at Skilled/Rehab Provider FINAL REVIEW of Orders: Final Review: Final Review of Medication Reconciliation and Orders Completedby Physician Reviewing ProviderCheng Bethea MD at 03-Dec-2018 17:23:37 Appointments: Follow-Up Appointment 01: Physician/Dept/ServiceDr. Harjinder Braswell (Primary Care Provider) Reason for Referralhospital follow up Call to Schedule [facility] to schedule a follow-up appointment upon discharge from [facility] facility [id number] [place] [address] Phone [phone] / Follow-Up Appointment 02: Physician/Dept/ServiceDrJoseph Gates (Medical Oncology) Reason for ReferralMetastatic Lung Cancer Scheduled Date/Rtiq69-Fvg-4185 13:00 [facility] [address] [place] [address] Phone [phone] / control clerk food and beverage [phone] CommentsBring CD of of your Radiology Images to give to Dr. Gates Follow-Up Appointment 03: Physician/Dept/ServiceDrJoseph Guerrero (Radiation Oncology) Reason for ReferralMetastatic Lung Cancer to the Spine Call to Schedule into be arranged - if you have not heard by the time you see Dr. Gates, let him know [facility] [address] [place] [address] Phone [phone] / control clerk food and beverage [phone] Follow-Up Appointment 04: Physician/Dept/ServiceDrJoseph Tamayo (Neurosurgery) Reason for Referralfollow up Thoracic Spine Decompression with Fusion Surgery Scheduled Date/Hzlh16-Ikc-0713 14:00 [facility] [address] [place], [place] [address] Phone [phone] Commentsplease bring a photo ID, proof of insurance and current list of medications with you to this appointment Gold Form - Nursing Summary: Special Treatments/Procedures (in past 14 days): Chemotherapyno Dialysisno IV Medicationyes Last Date Ahzjibqi04-Wtb-6686 Transfusionsno Feverno Radiationno Ventilatorno Tracheostomyno Suctioningno Sensory/Comfort: Visionuses glasses/contacts Hearingpoor Painyes Pain Typespasm Pain Locationlumbar spine Whenupon movement Pain Relieved Byposition Elimination: Bladdercontinent Bowelcontinent Last Bowel Wpkurcxr83-Gwd-2002 Safety: Siderailsyes Siderails Number/Reason3/ safety Restraintsno Sitterno Fall Riskweakness Medication/Hygiene/Mobility : Medication Administrationassist Bathingassist Dressingassist Bed Mobilitypersons/equipment, walker Wheelchairassist Transfersassist Ambulationassist Skin comment: Skin commentback with brittni Electronic Signatures: Buster Bose () (Signed 03-Dec-2018 15:05) Authored: Discharge Orders, Gold Form - Nursing Summary Leandra Rosario ([facility]) (Signed 01-Dec-2018 17:04) Authored: Appointments Cheng Bethea) (Signed 03-Dec-2018 17:23) Authored: Gold Form Orders, Provider FINAL REVIEW of Orders Lara Faulkner (PT ACC REP) (Signed 02-Dec-2018 15:15) Authored: Appointments Jordan Saunders ([facility]) (Signed 01-Dec-2018 12:31) Authored: Discharge Orders, Hospital Course (Home Care/Gold Form), Appointments Randee Meza ([facility]) (Signed 23-Nov-2018 19:17) Authored: Neurosurgery Nessa Carlos ([facility]) (Signed 03-Dec-2018 19:33) Authored: Discharge Orders, Neurosurgery, Stroke, Hospital Course (Home Care/Gold Form), Gold Form Orders, Appointments, Gold Form - Rn Ortho Summary Dominic Preciado ([facility]) (Signed 22-Nov-2018 18:50) Authored: Discharge Orders, Gold Form Orders Bienvenido France (PT ACC REP) (Signed 01-Dec-2018 13:02) Authored: Heart Failure, Stroke, Appointments Deanne Sanabria (PT ACC REP) (Signed 29-Nov-2018 13:58) Authored: Appointments Last Updated: 03-Dec-2018 19:33 by Nessa Carlos (TRAVEL AGENCY MANAGER-SCREENING TECHNICIAN) Normal [facility] [place] NR CT L-SPINE WO CONTRASTon 11-14-[address] L-SPINE WO CONTRAST Patient Name: TRISH HUNT STUDY: NR CT L-SPINE WO CONTRAST; NR CT T-SPINE WO CONTRAST 11/14/2018 2:10 pm INDICATION: Signs/Symptoms: T9 lesion on Chest CT suspicious for bone mets, but having pain in lumbar region, Lie Flat: Yes COMPARISON: None. ACCESSION NUMBER(S): [id number]; [id number] ORDERING CLINICIAN: NESSA CARLOS TECHNIQUE: Unenhanced CT [...] p.m. Electronically signed by: JOHN BRISCOE PHYSICIAN Negrita [facility] [place] NR CT T-SPINE WO CONTRASTon 11-14-[address] T-SPINE WO CONTRAST Patient Name: TRISH HUNT STUDY: NR CT L-SPINE WO CONTRAST; NR CT T-SPINE WO CONTRAST 11/14/2018 2:10 pm INDICATION: Signs/Symptoms: T9 lesion on Chest CT suspicious for bone mets, but having pain in lumbar region, Lie Flat: Yes COMPARISON: None. ACCESSION NUMBER(S): [id number]; [id number] ORDERING CLINICIAN: NESSA CARLOS TECHNIQUE: Unenhanced CT [...] p.m. Electronically signed by: PHYSICIAN Negrita RAINES [facility] [place] NR MRI BRAIN W/WO CONTRASTon 11-14-2018 NR MRI BRAIN W/WO CONTRAST Patient Name: MARILEE TRISH STUDY: NR MRI BRAIN W/WO CONTRAST; 11/14/2018 12:55 pm INDICATION: Signs/Symptoms: Lung mass with bone lesion suspicious for metastatsis - staging, Lie Flat: Yes, Pre Med: No. COMPARISON: None. ACCESSION NUMBER(S): [id number] ORDERING CLINICIAN: NESSA CARLOS TECHNIQUE: Axial T2, [...] or other etiologies. Electronically signed by: JOHN BRISCOE, PHYSICIAN Normal [facility] [place] RENAL FUNCTION PANELon 11-14 Albumin mass conc 3.7 g/dL Normal 3.4 - 5.0 [facility] [place] Comment on above: Performed By: #### C BCDF #### [facility] [address] [place] [address] Anion gap molar conc 13 mmol/L Normal 10 - 20 [facility] [place] Comment on above: Performed By: #### C BCDF #### [facility] [address] [place] [address] Calcium mass conc 9.2 mg/dL Normal 8.6 - 10.6 [facility] [place] Comment on above: Performed By: #### C BCDF #### [facility] [address] [place] [address] Chloride molar conc 108 mmol/L High 98 - 107 [facility] [place] Comment on above: Performed By: #### C BCDF #### [facility] [address] [place] [address] Creatinine mass conc 1.12 mg/dL High 0.50 - 1.05 [facility] [place] Comment on above: Performed By: #### C BCDF #### [facility] [address] [place] [address] GFR- AM. 57 mL/min/1.73m2 Abnormal >60 [facility] [place] Comment on above: Result Comment: CALC ULATIONS OF ESTIMATED GFR ARE PERFORMED USING THE MDRD STUDY EQUATION FOR THE IDMS-TRACEABLE CREATININE METHODS. CLIN CHEM 2007;53:766-72 Performed By: #### C BCDF #### [facility] [address] [place] [address] GFR-NON AM. 47 mL/min/1.73m2 Abnormal >60 [facility] [place] Comment on above: Performed By: #### C BCDF #### [facility] [address] [place] [address] Glucose mass conc 132 mg/dL High 74 - 99 [facility] [place] Comment on above: Performed By: #### C BCDF #### [facility] [address] [place] [address] HCO3 molar conc (Bld) 26 mmol/L Normal 21 - 32 [facility] [place] Comment on above: Performed By: #### C BCDF #### [facility] [address] [place] [address] Phosphate mass conc 4.4 mg/dL Normal 2.5 - 4.9 [facility] [place] Comment on above: Result Comment: The performance characteristics of phosphorus testing in heparinized plasma have been validated by the individual laboratory site where testing is performed. Testing on heparinized plasma is not approved by the FDA; however, such approval is not necessary. Performed By: #### C BCDF #### [facility] [address] [place] [address] Potassium molar conc 4.1 mmol/L Normal 3.5 - 5.3 [facility] [place] Comment on above: Performed By: #### C BCDF #### [facility] [address] [place] [address] Sodium molar conc 143 mmol/L Normal 136 - 145 [facility] [place] Comment on above: Performed By: #### C BCDF #### [facility] [address] [place] [address] Urea nitrogen mass conc 32 mg/dL High 6 - 23 [facility] [place] Comment on above: Performed By: #### C BCDF #### [facility] [address] [place] [address] TH ABDOMEN AP VIEWon 018 TH ABDOMEN AP VIEW Patient Name: TRISH HUNT STUDY: TH ABDOMEN AP VIEW; 11/14/2018 6:40 pm INDICATION: Signs/Symptoms: abdominal distension with Nausea and vomiting. COMPARISON: None ACCESSION NUMBER(S): [id number] ORDERING CLINICIAN: NESSA CARLOS FINDINGS: Nonobstructive bowel gas pattern. Limited evaluation of pneumoperitoneum on supine imaging, however no gross evidence of free air is noted. Visualized lungs are clear. Osseous structures demonstrate no acute bony changes. IMPRESSION: 1. Moderate amount of stool within the colon but no gross evidence of obstruction. Electronically signed by: Dashawn MARCOS MD Normal [facility] [place] Admission Risk Screen - Adul ton 11-13-2018 [...] AvailabilityLiving Will not available now Living Will [id number] Falls Screen: Type of Assessmentadmission Moderate Risk Factorsnursing judgment (specify) Risk for Injury Associated with Fallnone Fall Risk Conclusionmoderate falls risk with low risk for associated injury [place] Safety InterventionsWDL *orient to call system *instruct [...] instruction; written material Cultural Considerationsnone Developmental Considerationsnone Oriental Orthodox Considerationsnone Learning Assessment (Other Learner): Other learner [...] Spiritual Screen: Are there any cultural, spiritual, episcopalian practices/values/needs that are important for us to knowno CAGE: Is this an injured patient at a Trauma Center ([facility]): no Vaccinations: Vaccination - Influenza Vaccination [...] Injury Present on Admissionno Electronic Signatures: Linda KlineRN) (Signed 13-Nov-2018 00:13) Authored: Admission Risk Screens, Vaccinations, [place], Pressure Injury Last Updated: 23-Nov-2018 21:58 by Anna Santiago) Normal [facility] [place] CBC AND DIFFERENTIALon 11-13 % AUTOMATED IMMATURE GRAN 1.0 % Normal 0.0 - 0.9 [facility] [place] Comment on above: Result Comment: Perc ent differential counts (%) should be interpreted in the context of the absolute cell counts (cells/L). Performed By: #### C BCDF #### [facility] [address] [place] [address] % NEUTROPHIL 88.4 % Normal 40.0 - 80.0 [facility] [place] Comment on above: Performed By: #### C BCDF #### [facility] [address] [place] [address] Basophils/100 WBC (Bld) 0.1 % Normal 0.0 - 2.0 [facility] [place] Comment on above: Performed By: #### C BCDF #### [facility] [address] [place] [address] Basophils/100 WBC (Bld) 0.01 x10E9/L Normal 0.00 - 0.10 [facility] [place] Comment on above: Performed By: #### C BCDF #### [facility] [address] [place] [address] Eosinophils #/vol (Bld) 0.00 10*3/uL Normal 0.00 - 0.40 [facility] [place] Comment on above: Performed By: #### C BCDF #### [facility] [address] [place] [address] Eosinophils/100 WBC (Bld) 0.0 % Normal 0.0 - 6.0 [facility] [place] Comment on above: Performed By: #### C BCDF #### [facility] [address] [place] [address] Erythrocyte distribution width Ratio (RBC) 13.2 % Normal 11.5 - 14.5 [facility] [place] Comment on above: Performed By: #### C BCDF #### [facility] [address] [place] [address] Hematocrit Volume Fraction (Bld) 46.0 % Normal 36.0 - 46.0 [facility] [place] Comment on above: Performed By: #### C BCDF #### [facility] [address] [place] [address] Hemoglobin mass conc (Bld) 14.2 g/dL Normal 12.0 - 16.0 [facility] [place] Comment on above: Performed By: #### C BCDF #### [facility] [address] [place] [address] Lymphocytes #/vol (Bld) 0.64 10*3/uL Low 0.80 - 3.00 [facility] [place] Comment on above: Performed By: #### C BCDF #### [facility] [address] [place] [address] Lymphocytes/100 WBC (Bld) 8.1 % Normal 13.0 - 44.0 [facility] [place] Comment on above: Performed By: #### C BCDF #### [facility] [address] [place] [address] MCHC mass conc (RBC) 30.9 g/dL Low 32.0 - 36.0 [facility] [place] Comment on above: Performed By: #### C BCDF #### [facility] [address] [place] [address] MCV Entitic volume (RBC) 98 fL Normal 80 - 100 [facility] [place] Comment on above: Performed By: #### C BCDF #### [facility] [address] [place] [address] Monocytes #/vol (Bld) 0.19 10*3/uL Normal 0.05 - 0.80 [facility] [place] Comment on above: Performed By: #### C BCDF #### [facility] [address] [place] [address] Monocytes/100 WBC (Bld) 2.4 % Normal 2.0 - 10.0 [facility] [place] Comment on above: Performed By: #### C BCDF #### [facility] [address] [place] [address] Neutrophils #/vol (Bld) 7.02 10*3/uL High 1.60 - 5.50 [facility] [place] Comment on above: Performed By: #### C BCDF #### [facility] [address] [place] [address] Nucleated RBC/100 WBC Ratio (Bld) 0.0 /100 WBC Normal 0.0-0.0 [facility] [place] Comment on above: Performed By: #### C BCDF #### [facility] [address] [place] [address] Platelets #/vol (Bld) 308 10*3/uL Normal 150 - 450 [facility] [place] Comment on above: Performed By: #### C BCDF #### [facility] [address] [place] [address] RBC #/vol (Bld) 4.70 x10E12/L Normal 4.00 - 5.20 [facility] [place] Comment on above: Performed By: #### C BCDF #### [facility] [address] [place] [address] WBC #/vol (Bld) 7.9 10*3/uL Normal 4.4 - 11.3 [facility] [place] Comment on above: Performed By: #### C BCDF #### [facility] [address] [place] [address] COAGULATION SCREENon 12-29-2 018 aPTT Coag time (Bld) 33 s Normal 28 - 38 [facility] [place] Comment on above: Result Comment: Note new reference range as of 09/07/2018. THE APTT IS NO LONGER USED FOR MONITORING UNFRACTIONATED HEPARIN THERAPY. FOR MONITORING HEPARIN THERAPY, USE THE HEPARIN ASSAY. Performed By: #### C OAGS #### [facility] [address] [place] [address] INR Coag RelTime (PPP) 1.1 {INR} Normal 0.9 - 1.1 [facility] [place] Comment on above: Performed By: #### C OAGS #### [facility] [address] [place] [address] Prothrombin time (PT) Coag time (PPP) 11.8 s Normal 9.7 - 12.7 [facility] [place] Comment on above: Result Comment: Note new reference range as of 09/07/2018. Performed By: #### C OAGS #### [facility] [address] [place] [address] COMPREHENSIVE PANELon 2017 Albumin mass conc 4.3 g/dL Normal 3.4 - 5.0 [facility] [place] Comment on above: Performed By: #### C MP #### [facility] [address] [place] [address] ALP enzyme act/vol 48 U/L Normal 33 - 136 [facility] [place] Comment on above: Performed By: #### C MP #### [facility] [address] [place] [address] ALT enzyme act/vol 12 U/L Normal 7 - 45 [facility] [place] Comment on above: Result Comment: Judi ents treated with Sulfasalazine may generate falsely decreased results for ALT. Performed By: #### C MP #### [facility] [address] [place] [address] Anion gap molar conc 14 mmol/L Normal 10 - 20 [facility] [place] Comment on above: Performed By: #### C MP #### [facility] [address] [place] [address] AST enzyme act/vol 23 U/L Normal 9 - 39 [facility] [place] Comment on above: Performed By: #### C MP #### [facility] [address] [place] [address] Bilirubin mass conc 0.4 mg/dL Normal 0.0 - 1.2 [facility] [place] Comment on above: Performed By: #### C MP #### [facility] [address] [place] [address] Calcium mass conc 10.1 mg/dL Normal 8.6 - 10.6 [facility] [place] Comment on above: Performed By: #### C MP #### [facility] [address] [place] [address] Chloride molar conc 103 mmol/L Normal 98 - 107 [facility] [place] Comment on above: Performed By: #### C MP #### [facility] [address] [place] [address] Creatinine mass conc 1.21 mg/dL High 0.50 - 1.05 [facility] [place] Comment on above: Performed By: #### C MP #### [facility] [address] [place] [address] GFR- AM. 52 mL/min/1.73m2 Abnormal >60 [facility] [place] Comment on above: Result Comment: CALC ULATIONS OF ESTIMATED GFR ARE PERFORMED USING THE MDRD STUDY EQUATION FOR THE IDMS-TRACEABLE CREATININE METHODS. CLIN CHEM 2007;53:766-72 Performed By: #### C MP #### [facility] [address] [place] [address] GFR-NON AM. 43 mL/min/1.73m2 Abnormal >60 [facility] [place] Comment on above: Performed By: #### C MP #### [facility] [address] [place] [address] Glucose mass conc 161 mg/dL High 74 - 99 [facility] [place] Comment on above: Performed By: #### C MP #### [facility] [address] [place] [address] HCO3 molar conc (Bld) 29 mmol/L Normal 21 - 32 [facility] [place] Comment on above: Performed By: #### C MP #### [facility] [address] [place] [address] Potassium molar conc 4.0 mmol/L Normal 3.5 - 5.3 [facility] [place] Comment on above: Performed By: #### C MP #### [facility] [address] [place] [address] Protein mass conc 7.5 g/dL Normal 6.4 - 8.2 [facility] [place] Comment on above: Performed By: #### C MP #### [facility] [address] [place] [address] Sodium molar conc 142 mmol/L Normal 136 - 145 [facility] [place] Comment on above: Performed By: #### C MP #### [facility] [address] [place] [address] Urea nitrogen mass conc 16 mg/dL Normal 6 - 23 [facility] [place] Comment on above: Performed By: #### C MP #### [facility] [address] [place] [address] Clinical Event Note-neurosur alicia updateon 11-13-2018 Clinical [...] Team Contact Information: Provider/Team Contact Info-Pager Number: [phone] Electronic Signatures: Deborah Espana ( (Resident)) (Signed 13-Nov-2018 09:20) Authored: Event, Provider / Team Contact Information Last Updated: 13-Nov-2018 09:20 by Deborah Espana ( (Resident)) Normal [facility] [place] Consult-Neurosurgeryon 11-13 Consult-Neurosurgery Service: Service: Neurosurgery Consult: [...] until after the holidays. Initially evaluated at [facility]. Neurosurgery consulted for spinal mets. Course at [facility] Per records, she presented to the ER at [facility] on 11/11/18 with intractable back pain/ [...] No pronator drift, neg Hoffmanns BicepTricepWflWexGrip Intr [id number] HflHexKflKexDflPflEHL [id number] Sensation grossly intact Normoreflexic, no clonus, no [...] MD Resident Physician Department of Neurological Surgery [facility] [email or web address] Neurosurgery Pager: [phone] Personal Pager: [phone] Signature/Cosignature/Attes tation: Attending AttestationI saw and evaluated [...] Signature/Cosignature/Attes tation Last Updated: 13-Nov-2018 14:56 by Huber Tamayo) Normal [facility] [place] Consult-Pulmonologyon 2017 Consult-Pulmonology Service: Service: Pulmonology Consult: Consult requested by (Attending Name): Emil Reason: Evaluate for bronchoscopic biopsy History of Present Illness: HPI: 73 year old woman with HTN, hypothyroidism, DM presenting to [facility] 11/11 for 2 weeks of intracatable [...] lisinopril: Other Objective: Objective Information: T PRBPSpO2 [id number]/6895% Date/Time11/13 15: 15: 15: 15: 15:27 Range(36.3C [...] active Scheduled Medications ----- 1. Gadobenate Dimeglumine ([place] [employer]-Radiology Contrast): 22.64 mL IntraVenous Push Once 2. [...] next week. -f/u cytology from thoracentesis at [facility]. Even if positive, will likely need more tissue for genetic analysis. Will continue to follow, call consult pager [phone] with any questions Signature/Cosignature/Attes tation: Attending AttestationI [...] Lewis) (Signed 03-Dec-2018 22:17) Authored: Assessment/Recommendations, Signature/Cosignature/Attes tation Co-Signer: Service, History of Present Illness, Allergies, Objective, Assessment/Recommendations Linda Gomez (Fellow)) (Signed 13-Nov-2018 16:52) Authored: Service, History of Present Illness, Allergies, Objective, Assessment/Recommendations Last Updated: 03-Dec-2018 22:17 by Jane Lewis) [facility] Discharge Planning Noteon Discharge Planning Note Discharge Needs Assessment: Discharge Planning Assessment [id number] Discharge Planning Assessment Completed byMariposa FINNEY OB Information: Reason for admission this visitlate complication Patient Learning: Factors that Impact Ability to Learnhearing problems(1) Other Factors: Functional Screen: In the recent/past 2-4 weeks, patient or family have noticedno issues that require a rehabilitation consult at this time(2) Discharge Planning: Discharge Plannin11/12/2018 2300 pt arrived from [facility]. vital signs stable. pt admitted for mass found on lung and neuro consult. pt lives at home with . pt accompanied by granddaughter. pt plans to return to home with no home care after treatment and testing. Linda Kline RN 11/15/18 Optometry Assistant Note 1230 Met with patient's family regarding discharge planning and home going needs. Per family, they live at home with spouse. Patient's primary support person during hospitalization is Kin Hunt [phone]. Bother daughters provided contact information as well. Nikki Wilkes( [phone]) and Annita Sin( [phone]). Patient states they are independent with ADL's [...] able to afford/obtain medications. Patient uses [facility] for prescriptions. Patient's PCP is Dr. Braswell in [place], [place]. Verified patient's address and contact information. Discharge disposition is unknown pending Cance workup. Family states they will provide transportation home at time of discharge. Will continue to follow and will update accordingly. Janeth Mayo RNmotel maid Coordinator pager# [phone] 11/19/17 12:23pm SOCIAL WORK NOTE ARCHITECTURAL ENGINEER spoke with the patient's SCREENING TECHNICIAN on this date who reported that the patient is getting surgery on 11/23. ARCHITECTURAL ENGINEER will follow up as needed. CANDY Childers, ARCHITECTURAL ENGINEER pager [phone] Transfer Note 11/24/18 0745 Patient transfered to LT8 room 8066 from the OR. Family at bedside. She came up with a DIVE SUPERVISOR pump which is patent, and her drains are intact. Will continue to monitor. Anna Santiago RN 11/24/18 4:18pm SOCIAL WORK NOTE ARCHITECTURAL ENGINEER spoke with the patient's SCREENING TECHNICIAN who reported that the patient should be medically ready mid next week. ARCHITECTURAL ENGINEER will follow up as neede.CANDY Ruano, ARCHITECTURAL ENGINEER pager [phone] 11/26/18 11:05am SOCIAL WORK NOTE ARCHITECTURAL ENGINEER spoke with the patient on this date about SNF placement. ARCHITECTURAL ENGINEER was told by the patient that the was looking into the [facility] or [facility]. ARCHITECTURAL ENGINEER reported that they were not on the insurance list but that she would try them. ARCHITECTURAL ENGINEER provided the patient with the insurance list to look over as well. ARCHITECTURAL ENGINEER spoke with the patient's SCREENING TECHNICIAN who reported that the patient could be medically ready on Thursday. ARCHITECTURAL ENGINEER will follow up as needed. REVISED 4:14PM ARCHITECTURAL ENGINEER heard back from both facilities and was told that they both currently do [facility] ENGINEER [facility] on Thursday. ARCHITECTURAL ENGINEER will follow up as needed. CANDY Childers, ARCHITECTURAL ENGINEER pager [phone] 11/29/18 12:26pm SOCIAL WORK NOTE ARCHITECTURAL ENGINEER spoke with the patient's SCREENING TECHNICIAN on this date to discuss discharge. ARCHITECTURAL ENGINEER was told that the is transitioning to oxycodone and needs an xray done. ARCHITECTURAL ENGINEER was told that the patient will be ready, pending pain, on Thursday. ARCHITECTURAL ENGINEER will follow up to see if [facility] has a bed. ARCHITECTURAL ENGINEER will also discuss having the patient pick other options just in case. ARCHITECTURAL ENGINEER will follow up as needed. CANDY Childers, ARCHITECTURAL ENGINEER pager [phone] 11/30/18 9:25am SOCIAL WORK NOTE (LATE ENTRY) ARCHITECTURAL ENGINEER spoke with the patient and daughter yesterday afternoon (11/29) and explained to them that there are currently no beds available at [facility] or [facility]. Patient's daughter reported that the only facility that they would be willing to go to is [facility]. ARCHITECTURAL ENGINEER reported that she would call them again to see if they have beds. ARCHITECTURAL ENGINEER called and left a message. ARCHITECTURAL ENGINEER will follow up as needed. CANDY Childers, ARCHITECTURAL ENGINEER pager [phone] 12/01/18 4:37pm SOCIAL WORK NOTE ARCHITECTURAL ENGINEER spoke with the patient on this date about SNF placement. ARCHITECTURAL ENGINEER explained to the patient that [facility] is unable to accept the patient at this time due to the fact that they do not have a bed available. ARCHITECTURAL ENGINEER explained this to the patient and that she wouldnt be able to sit in the hospital to wait for a bed to open. ARCHITECTURAL ENGINEER provided the patient with another list of facilities. Patient asked for referrals to be sent to SNFs around [place]. ARCHITECTURAL ENGINEER explained that she would do that, but also asked the patient to pick SNFs on the list that was provided as well. ARCHITECTURAL ENGINEER will follow up as needed. CANDY Childers, SHARON pager [phone] 12/02/18 2:26pm SOCIAL WORK NOTE ARCHITECTURAL ENGINEER spoke with the patient and her daughter who reported that they would like to try for a one time contract with [facility]. ARCHITECTURAL ENGINEER will follow up as needed. REVISED 4:14PM SOCIAL WORK NOTE ARCHITECTURAL ENGINEER spoke with the patient and daughter and let them know that [facility] reported that the patient would need to pay 50% of the cost since she has no out of network benefits. Patient reported that she wouldnt want to go there. ARCHITECTURAL ENGINEER provided the patient with an insurance list from [place] as a searching point and [place]. ARCHITECTURAL ENGINEER also called [facility] who reported that they do not have a unit there. ARCHITECTURAL ENGINEER will follow up as needed. Kierra Duque, MEDICAL EQUIPMENT REPAIR TECHNICIAN, ARCHITECTURAL ENGINEER pager [phone] 12/03/18 8:39am SOCIAL WORK NOTE ARCHITECTURAL ENGINEER spoke with the patient and daughter last night 12/02 who reported that they would like the patient to go to [facility]. ARCHITECTURAL ENGINEER sent a referral. ARCHITECTURAL ENGINEER called this morning and the admissions reported that they will look over the information to see if they can accept. ARCHITECTURAL ENGINEER asked them to start precert if they are able to accept. ARCHITECTURAL ENGINEER will follow up as needed. REVISED 5:01PM SOCIAL WORK NOTE ARCHITECTURAL ENGINEER spoke with the patient's facility who reported that they obtained precert. ARCHITECTURAL ENGINEER set up transport for 10pm. ARCHITECTURAL ENGINEER completed 7000. ARCHITECTURAL ENGINEER will follow up as needed. Kierra Duque MEDICAL EQUIPMENT REPAIR TECHNICIAN, ARCHITECTURAL ENGINEER pager [phone] 12/04/18 10:11 Social Work Note Late entry from 04:35. SW received page from [facility] stating patient still had not been picked up for transport scheduled for 12/03 at 22:00. OSMAN spoke with [facility] account group supervisor Mahad. Per [facility], service was overwhelmed with emergent cases and provided updated time of 08:00. SW also spoke with [facility] per family request. Company unable to provide transport on 12/04/18. SW will continue to follow. REVISED 08:27- OSMAN spoke with [facility]. [facility] provided updated ETA at 10:00. SW will continue to follow. Leann Stovall MEDICAL EQUIPMENT REPAIR TECHNICIAN, ARCHITECTURAL ENGINEER [id number] Discharge Note December 04, 2018 1236 pt. discharge to [place] for rehab [facility]. Report called davidson Cohen @ [phone], Gold form faxed to [phone].Buster Bose RN Electronic Signatures: Linda Kline (RN) (Signed 13-Nov-2018 04:58) Authored: Discharge Planning Note Janeth Mayo (RN) (Signed 15-Nov-2018 15:17) Authored: Discharge Planning Note Buster Bose (SEVERO) (Signed 04-Dec-2018 12:38) Authored: Discharge Planning Note Kierra Duque () (Signed 03-Dec-2018 17:01) Authored: Discharge Planning Note Leann Stovall (OSMAN) (Signed 04-Dec-2018 10:19) Authored: Discharge Planning Note Anna Santiago (SHARMIN) (Signed 24-Nov-2018 07:49) Authored: Discharge Planning Note Last Updated: 04-Dec-2018 12:38 by Buster Bose (SEVERO) References: 1. Data Referenced From "5. Education" 11/12/2018 11:35 PM 2. Data Referenced From Admission Risk Screen - Adult" 11/12/2018 11:35 PM Normal [facility] EMR ADDONon 11-13-2018 ADDON CONFIRMATION REQUEST REC'D Normal [facility] [place] [facility] Comment on above: Performed By: #### E [...] persistent back pain who [facility] from [facility] after presenting there on 11/11/18 with [...] Pulmonary medicine and oncology were consulted at [place] with a Right Thoracentesis via U/S obtained 11/12/18 for 140 ml of fluid with culture and cytology pending. An MRI of the T spine was obtained and showed the lesion was not compressing the spine but was however in close proximity to the cord, and therefore she was given Decadron with request for transfer to [facility] under Oncology for further evaluation by Neurosurgery. [...] Sneezing, Swelling Objective: Objective Information: T PRBPSpO2 [id number]/8093% Date/Time11/13 12 12 12 12 12:01 Range(36.3C - 36.8C ) (87 - [...] Reference Range: STRAW,YELLOW Appearance, Urine CLEAR Specific [place], Urine 1.017 pH, Urine 6.0 Protein, Urine [...] Stimulating Hormone, Serum 0.86 Radiology Results: Results: [facility] reports: Abdomen/Pelvis CT 11/11/18 IMPRESSION: 1. 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 . PLAN: In Shared Visit with Dr. Neena Grullon 1) SUSPECTED LUNG MALIGNANCY: Former smoker. Reported SOB and chest pain with deep breath at [place] ER presentation 11/11/18. A CT of the [...] with culture and cytology pending. 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 Presented to [facility] 11/11/18 with intractable progressive back pain [...] A CT Chest, Abdomen and Pelvis at [place] showed a suspected Pathologic fracture of the [...] given Decadron with request for transfer to [facility] for Neurosurgery evaluation. Neurosurgery consulted and did [...] - await PT evaluation. ----- PCP: Dr. Harjinder Braswell [phone] Urology: Dr. Earnest Herrera Pharmacy: [facility] ([place]) [phone] Insurer: [employer] Medicare Family: / POA Healthcare - Kin Hunt [phone] Dtr. / 1st Alt. POA - Annita Sin [phone] / [phone] Dtr. / 2nd Alt. POA - Dionne Wilkes [phone] Signatures/Attestation/Cert ification: Provider/Team Contact Info-Pager Miriam Carlos [facility] # [phone] Note Initiator: Do you need to request [...] and spinal mets presenting as transfer from [facility] for neurosurgery evaluation and further care. Course at [facility] patient was having back pain for almost six months . Per records, she presented to the ER at [facility] on 11/11/18 with intractable back pain/ [...] obesity, hypothyroidism, HLD, presenting as transfer from [facility] after initially presenting there with subacute low [...] and discharge plan. Electronic Signatures: Nessa Carlos (TRAVEL AGENCY MANAGER-SCREENING TECHNICIAN) (Signed 13-Nov-2018 23:29) Authored: History of Present Illness, Comorbidities, Family History, Social History, Allergies, Medications Prior to Admission, Review of Systems, Objective, Assessment and Plan, Signatures/Attestation/Cert ification Neena Grullon) (Signed 13-Nov-2018 16:34) Authored: Signatures/Attestation/Cert ification Last Updated: 13-Nov-2018 23:29 by Nessa Carlos (TRAVEL AGENCY MANAGER-SCREENING TECHNICIAN) Normal [facility] LDHon 11-13-2018 LDH 401 U/L High 84 - 246 [facility] [place] Comment on above: Performed By: #### L #### [facility] [address] [place] [address] Patient Profile - Adult v2on 11-13-2018 Protein mass conc Profile: Initial Info: How to be AddressedBetty Spoken Language PreferredEnglish Are you currently using the Personal Electronic Health Record or Nafasi Systemsno Are you interested in learning more about [facility] for the management of your healthdeclined Stated Reason for Admissioncancer in lungs Arrived Fromhospital Patient Belongingsremains with patient Medications Brought to Hospitalno General Health: Weight in kg113.2 kilogram(s) Weight in eay065.6 pound(s) Height in feet5 feet Height in [...] need to know to best care for jovanao Substance: Current or Former Substance Use never: Cigarette/Tobacco, e-Cigarette/Vaping, Alcohol, Street Drugs Health Mgmt: Symptoms/Conditions Managed at [facility] Relationship/Environ: Primary Source of Support/Comfortspouse; child(wiley) Lives Withspouse Living Arrangementshouse Resource/Environmental Concernsnone Anticipated Transition [place] Services Anticipated at Transitionnone Significant IndicatorsComplete Information Review: Allergies, Home Meds and Significant Events have been Reviewed and Verified with Patient/Familyno ALLERGY, INTOLERANCE, ADVERSE EVENT: Allergies: codeine: Drug, Other, Active lisinopril: Drug, Other, Active sulfa drugs: Drug Category, Unknown, Active Electronic Signatures: Linda Kline (SHARMIN) (Signed 13-Nov-2018 04:40) Authored: Profile, Additional Information Last Updated: 13-Nov-2018 04:40 by Linda Kline (RN) Normal [facility] RENAL FUNCTION PANELon 11-13 Calcium mass conc 9.1 mg/dL Normal 8.6 - 10.6 [facility] [place] Comment on above: Performed By: #### C BCDF #### [facility] [address] [place] [address] Albumin mass conc 3.7 g/dL Normal 3.4 - 5.0 [facility] [place] Comment on above: Performed By: #### C BCDF #### [facility] [address] [place] [address] Anion gap molar conc 15 mmol/L Normal 10 - 20 [facility] [place] Comment on above: Performed By: #### C BCDF #### [facility] [address] [place] [address] Chloride molar conc 107 mmol/L Normal 98 - 107 [facility] [place] Comment on above: Performed By: #### C BCDF #### [facility] [address] [place] [address] Creatinine mass conc 1.17 mg/dL High 0.50 - 1.05 [facility] [place] Comment on above: Performed By: #### C BCDF #### [facility] [address] [place] [address] GFR- AM. 54 mL/min/1.73m2 Abnormal >60 [facility] [place] Comment on above: Result Comment: CALC ULATIONS OF ESTIMATED GFR ARE PERFORMED USING THE MDRD STUDY EQUATION FOR THE IDMS-TRACEABLE CREATININE METHODS. CLIN CHEM 2007;53:766-72 Performed By: #### C BCDF #### [facility] [address] [place] [address] GFR-NON AM. 45 mL/min/1.73m2 Abnormal >60 [facility] [place] Comment on above: Performed By: #### C BCDF #### [facility] [address] [place] [address] Glucose mass conc 158 mg/dL High 74 - 99 [facility] [place] Comment on above: Performed By: #### C BCDF #### [facility] [address] [place] [address] HCO3 molar conc (Bld) 23 mmol/L Normal 21 - 32 [facility] [place] Comment on above: Performed By: #### C BCDF #### [facility] [address] [place] [address] Phosphate mass conc 3.7 mg/dL Normal 2.5 - 4.9 [facility] Comment on above: Result Comment: The performance characteristics of phosphorus testing in heparinized plasma have been validated by the individual laboratory site where testing is performed. Testing on heparinized plasma is not approved by the FDA; however, such approval is not necessary. Performed By: #### C BCDF #### [facility] [address] [place] [address] Potassium molar conc 4.7 mmol/L Normal 3.5 - 5.3 [facility] Comment on above: Result Comment: MILD HEMOLYSIS DETECTED. The result may be falsely elevated due to hemolysis or other interferents. Clinical correlation is recommended. Repeat testing may be considered. Performed By: #### C BCDF #### [facility] [address] [place], [place] Sodium molar conc 140 mmol/L Normal 136 - 145 [facility] [place] [facility] Comment on above: Performed By: #### C BCDF #### [facility] [address] [place] [address] Urea nitrogen mass conc 22 mg/dL Normal 6 - 23 [facility] [place] [facility] Comment on above: Performed By: #### C BCDF #### [facility] [address] [place] [address] TH CHEST 1 VIEWon 11-13-2018 TH CHEST 1 VIEW Patient Name: TRISH HUNT STUDY: TH CHEST 1 VIEW; 11/13/2018 4:53 am INDICATION: Signs/Symptoms: Right pleural effusion, adenopathy, lung ca. COMPARISON: None. ACCESSION NUMBER(S): [id number] ORDERING CLINICIAN: SAGE RAPHAEL FINDINGS: CARDIOMEDIASTINAL SILHOUETTE: [...] Electronically signed by: Dashawn MARCOS MD Normal [facility] TSHon 11-13-2018 Thyrotropin Qn 0.86 m[IU]/L Normal 0.44 - 3.98 [facility] [place] Comment on above: Result Comment: TSH testing is performed using different testing methodology at [facility] than at other [facility]. Direct result comparisons should only be made within the same method. . Patients receiving more than 5 mg/day of biotin may have interference in test results. A sample should be taken no sooner than eight hours after previous dose. Contact [phone] for additional information. Performed By: #### T SH2 #### [facility] [address] [place] [address] URINALYSISon 11-13-2018 Appearance Nom (U) CLEAR Normal CLEAR [facility] [place] Comment on above: Performed By: #### U A #### [facility] [address] [place] [address] Bilirubin mass conc Negative Normal NEGATIVE [facility] Comment on above: Performed By: #### U A #### [facility] [address] [place] [address] BLOOD Negative Normal NEGATIVE [facility] Comment on above: Performed By: #### U A #### [facility] [address] [place] [address] Color Nom (U) YELLOW Normal STRAW,YELL OW [facility] [place] Comment on above: Performed By: #### U A #### [facility] [address] [place] [address] Glucose mass conc Negative Normal NEGATIVE [facility] [place] Comment on above: Performed By: #### U A #### [facility] [address] [place] [address] Ketones Ql (U) Negative Normal NEGATIVE [facility] [place] [facility] Comment on above: Performed By: #### U A #### [facility] [address] [place] [address] Leukocyte esterase Test strip Ql (U) Negative Normal NEGATIVE [facility] [place] [facility] Comment on above: Performed By: #### U A #### [facility] [address] [place] [address] Nitrite Ql (U) Negative Normal NEGATIVE [facility] Comment on above: Performed By: #### U A #### [facility] [address] [place] [address] pH (Bld) 6.0 Normal 5.0 - 8.0 [facility] Comment on above: Performed By: #### U A #### [facility] [address] [place] [address] Protein mass conc (U) Negative Normal NEGATIVE [facility] Comment on above: Performed By: #### U A #### [facility] [address] [place] [address] Specific gravity Relative Density (U) 1.017 Normal 1.005 - 1.035 [facility] [place] [facility] Comment on above: Performed By: #### U A #### [facility] [address] [place] [address] Urobilinogen Qn (U) <2.0 Normal 0.0 - 1.9 [facility] Comment on above: Performed By: #### U A #### [facility] [address] [place] [address] Vital Signs Date Time Vital Sign Value Performing Clinician Facility 07-11-2025 15:37-0400 Diastolic blood pressure 80 mm[Hg] Ruba Bellagen TRAVEL AGENCY MANAGER.SCREENING TECHNICIAN Work Phone: 9(773)[phone] [place] [address] 07-11-2025 15:37-0400 Heart rate 93 /min Ruba Haagen TRAVEL AGENCY MANAGER.SCREENING TECHNICIAN Work Phone: 8(613)388-954387 [place] [address] 07-11-2025 15:37-0400 Systolic blood pressure 142 mm[Hg] Ruba Bellagen TRAVEL AGENCY MANAGER.SCREENING TECHNICIAN Work Phone: 9(605)858-840587 [place] [address] 07-11-2025 15:04-0400 Respiratory rate 16 /min Ruba Trujillo TRAVEL AGENCY MANAGER.SCREENING TECHNICIAN Work Phone: 3(396)680-909087 [place] [address] 07-04-2025 14:53-0400 Body height 160.[address] Harjinder Braswell MD Work Phone: 3(943)929-691478 [address] 07-04-2025 14:53-0400 Body mass index (BMI) [Ratio] 33.6 kg/m2 Dr. Harjinder Braswell MD Work Phone: 3(704)565-689676 [place] [address] 07-04-2025 14:53-0400 Body weight 86.[address] Harjinder Braswell MD Work Phone: 1(229)052-929976 [place] [address] 07-04-2025 14:53-0400 Diastolic blood pressure 84 mm[Hg] Dr. Harjinder Braswell MD Work Phone: 7(148)886-853676 [place] [address] 07-04-2025 14:53-0400 Heart rate 109 /min Dr. Harjinder Braswell MD Work Phone: 1(158)520-417176 [place] [address] 07-04-2025 14:53-0400 Systolic blood pressure 150 mm[Hg] Dr. Harjinder Braswell MD Work Phone: 6(729)352-144334 [place] [address] 06-13-2025 12:54-0400 Body temperature 98.01 [degF] Reva Suppan TRAVEL AGENCY MANAGER.SCREENING TECHNICIAN Work Phone: [facility] 06-13-2025 12:54-0400 Diastolic blood pressure 68 mm[Hg] Reva Suppan TRAVEL AGENCY MANAGER.SCREENING TECHNICIAN Work Phone: [facility] 06-13-2025 12:54-0400 Heart rate 96 /min Reva Suppan TRAVEL AGENCY MANAGER.SCREENING TECHNICIAN Work Phone: [facility] 06-13-2025 12:54-0400 SaO2% (BldA) [Mass fraction] 92 % Reva Suppan TRAVEL AGENCY MANAGER.SCREENING TECHNICIAN Work Phone: [facility] 06-13-2025 12:54-0400 Systolic blood pressure 122 mm[Hg] Reva Suppan TRAVEL AGENCY MANAGER.SCREENING TECHNICIAN Work Phone: [facility] 05-30-2025 14:56-0400 Body height 160.[address] Harjinder Braswell MD Work Phone: 4(728)405-682176 [place] [address] 05-30-2025 14:56-0400 Body mass index (BMI) [Ratio] 33.6 kg/m2 Dr. Harjinder Braswell MD Work Phone: 5(524)996-704376 [place] [address] 05-30-2025 14:56-0400 Body temperature 98.4 [degF] Dr. Harjinder Braswell MD Work Phone: 0(989)288-970534 [place] [address] 05-30-2025 14:56-0400 Body weight 86.[address] Harjinder Braswell MD Work Phone: 4(168)472-964776 [place] [address] 05-30-2025 14:56-0400 Diastolic blood pressure 84 mm[Hg] Dr. Harjinder Braswell MD Work Phone: 4(490)181-423576 [place] [address] 05-30-2025 14:56-0400 Heart rate 95 /min Dr. Harjinder Braswell MD Work Phone: 7(423)333-435576 [place] [address] 05-30-2025 14:56-0400 Respiratory rate 18 /min Dr. Harjinder Braswell MD Work Phone: 8(155)976-359876 [place] [address] 05-30-2025 14:56-0400 SaO2% (BldA) [Mass fraction] 88 % Dr. Harjinder Braswell MD Work Phone: [facility] 05-30-2025 14:56-0400 Systolic blood pressure 167 mm[Hg] Dr. Harjinder Braswell MD Work Phone: [facility] 05-23-2025 15:31-0400 Body mass index (BMI) [Ratio] 34.16 kg/m2 Ruba Haagen TRAVEL AGENCY MANAGER.SCREENING TECHNICIAN Work Phone: [facility] 05-23-2025 15:31-0400 Body weight 90.27 kg Ruba Haagen TRAVEL AGENCY MANAGER.SCREENING TECHNICIAN Work Phone: [facility] 05-23-2025 14:49-0400 Diastolic blood pressure 86 mm[Hg] Ruba Haagen TRAVEL AGENCY MANAGER.SCREENING TECHNICIAN Work Phone: [facility] 05-23-2025 14:49-0400 Heart rate 93 /min Ruba Haagen TRAVEL AGENCY MANAGER.SCREENING TECHNICIAN Work Phone: [facility] 05-23-2025 14:49-0400 Respiratory rate 16 /min Ruba Haagen TRAVEL AGENCY MANAGER.SCREENING TECHNICIAN Work Phone: [facility] 05-23-2025 14:49-0400 SaO2% (BldA) [Mass fraction] 96 % Ruba Haagen TRAVEL AGENCY MANAGER.SCREENING TECHNICIAN Work Phone: [facility] 05-23-2025 14:49-0400 Systolic blood pressure 146 mm[Hg] Ruba Haagen TRAVEL AGENCY MANAGER.SCREENING TECHNICIAN Work Phone: [facility] 04-25-2025 14:22-0400 Body mass index (BMI) [Ratio] 32.96 kg/m2 Ruba Haagen TRAVEL AGENCY MANAGER.SCREENING TECHNICIAN Work Phone: [facility] 04-25-2025 14:22-0400 Body weight 87.09 kg Ruba Haagen TRAVEL AGENCY MANAGER.SCREENING TECHNICIAN Work Phone: [facility] 04-25-2025 14:22-0400 Diastolic blood pressure 80 mm[Hg] Ruba Haagen TRAVEL AGENCY MANAGER.SCREENING TECHNICIAN Work Phone: [facility] 04-25-2025 14:22-0400 Heart rate 98 /min Ruba Haagen TRAVEL AGENCY MANAGER.SCREENING TECHNICIAN Work Phone: [facility] 04-25-2025 14:22-0400 Respiratory rate 16 /min Ruba Haagen TRAVEL AGENCY MANAGER.SCREENING TECHNICIAN Work Phone: [facility] 04-25-2025 14:22-0400 SaO2% (BldA) [Mass fraction] 91 % Ruba Trujillo TRAVEL AGENCY MANAGER.SCREENING TECHNICIAN Work Phone: [facility] 04-25-2025 14:22-0400 Systolic blood pressure 152 mm[Hg] Ruba Trujillo TRAVEL AGENCY MANAGER.SCREENING TECHNICIAN Work Phone: [facility] 03-08-2024 22:40-0400 Body temperature 98.2 [degF] [facility] 03-08-2024 22:40-0400 Diastolic blood pressure 65 mm[Hg] [facility] 03-08-2024 22:40-0400 Heart rate 86 /min [facility] 03-08-2024 22:40-0400 Respiratory rate 16 /min [facility] 03-08-2024 22:40-0400 SaO2% (BldA) [Mass fraction] 93 % [facility] 03-08-2024 22:40-0400 Systolic blood pressure 154 mm[Hg] [facility] 03-08-2024 17:49-0400 Body mass index (BMI) [Ratio] 36.3 kg/m2 [facility] 03-08-2024 17:49-0400 Body weight 92.[address] [facility] 03-08-2024 17:32-0400 Body height 160.[address] [facility] 02-17-2024 13:23-0400 Body weight 94.35 kg Ruba Trujillo TRAVEL AGENCY MANAGER.SCREENING TECHNICIAN Work Phone: [facility] 02-17-2024 13:23-0400 Diastolic blood pressure 82 mm[Hg] Ruba Trujillo TRAVEL AGENCY MANAGER.SCREENING TECHNICIAN Work Phone: [facility] 02-17-2024 13:23-0400 Heart rate 101 /min Ruba Trujillo TRAVEL AGENCY MANAGER.SCREENING TECHNICIAN Work Phone: [facility] 02-17-2024 13:23-0400 Respiratory rate 16 /min Ruba Trujillo TRAVEL AGENCY MANAGER.SCREENING TECHNICIAN Work Phone: [facility] 02-17-2024 13:23-0400 SaO2% (BldA) [Mass fraction] 93 % Ruba Trujillo TRAVEL AGENCY MANAGER.SCREENING TECHNICIAN Work Phone: [facility] 02-17-2024 13:23-0400 Systolic blood pressure 146 mm[Hg] Ruba Trujillo TRAVEL AGENCY MANAGER.SCREENING TECHNICIAN Work Phone: [facility] 2023 13:26-0400 Body weight 92.[address] [facility] 02-25-2023 13:12-0400 Body height 162.6 cm Harjinder Braswell MD Work Phone: [facility] 02-25-2023 13:12-0400 Body weight 90.27 kg Harjinder Braswell MD Work Phone: [facility] 02-25-2023 13:12-0400 Diastolic blood pressure 68 mm[Hg] Harjinder Braswell MD Work Phone: [facility] 02-25-2023 13:12-0400 Heart rate 95 /min Harjinder Braswell MD Work Phone: [facility] 02-25-2023 13:12-0400 SaO2% (BldA) [Mass fraction] 96 % Harjinder Braswell MD Work Phone: [facility] 02-25-2023 13:12-0400 Systolic blood pressure 128 mm[Hg] Harjinder Braswell MD Work Phone: [facility] 11-05-2020 13:55-0500 Body mass index (BMI) [Ratio] 35.2 kg/m2 [facility] 11-05-2020 13:55-0500 Body temperature 97.9 [degF] [facility] 11-05-2020 13:55-0500 Body weight 90.[address] [facility] 11-05-2020 13:55-0500 Diastolic blood pressure 77 mm[Hg] [facility] 11-05-2020 13:55-0500 Heart rate 95 /min [facility] 11-05-2020 13:55-0500 Respiratory rate 14 /min [facility] 11-05-2020 13:55-0500 SaO2% (BldA) [Mass fraction] 98 % [facility] 11-05-2020 13:55-0500 Systolic blood pressure 167 mm[Hg] [facility] 11-23-2018 16:06-0500 Body temperature 37.0 degrees C [facility] [place] Comment on above: Result Comment: NOTE: PATIENT RESULTS AR E NOT CORRECTED FOR TEMPERATURE. Performed By: #### B LGA1 ####[id number] [place] [address] 11-23-2018 14:30-0500 Body temperature 37.0 degrees C [facility] [place] Comment on above: Result Comment: NOTE: PATIENT RESULTS AR E NOT CORRECTED FOR TEMPERATURE. Performed By: #### T SH2 #### [facility] [id number] [place] [id number] Encounters Encounter Date Encounter Type Care Provider Facility Start: 09-28-2025 ambulatory [facility] Facility:[facility] Start: 09-27-2025 ambulatory Alexandro Mathews Fac ility:[facility] Start: 09-27-2025 Evaluation and manag ement of inpatient Alexandro Mathews Facility:[facility] Start: 08-22-2025 ambulatory [facility] Facility:[facility] Start: 08-09-2025 End: 08-09-2025 ambulatory [facility] Facility:[facility] Start: 07-11-2025 End: 07-11-2025 Office outpatient visit 25 minutes Ruba Trujillo TRAVEL AGENCY MANAGER.SCREENING TECHNICIAN Work Phone: [facility] [place] Comment on above: Primary osteoarthrit is, right hand; Primary osteoarthritis of left hand Start: 07-11-2025 End: 07-11-2025 ambulatory [facility] Facility:[facility] Start: 07-04-2025 End: 07-04-[address] Yolanda Ash MD -[facility] Work Phone: Start: 07-04-2025 End: 07-04-[address] Harjinder Braswell MD Work Phone: -[facility] Start: 06-15-2025 End: 06-16-2025 Follow-up encounter Reva Wasserman APRN.SCREENING TECHNICIAN Work Phone: [facility] [place] Start: 06-13-2025 End: 06-13-2025 Subsequent hospital visit by physician Xr [facility] [place] Work Phone: Radiology Comment on above: Bilateral hand pain [M79.641, M79.642] Start: 06-13-2025 End: 06-13-2025 ambulatory REVA WASSERMAN Facility:[facility] Start: 06-13-2025 End: 06-13-2025 Office outpatient visit 25 minutes Reva Wasserman APRN.SCREENING TECHNICIAN Work Phone: [facility] Comment on above: Bilateral hand pain (Primary Dx); Screening for depression; Encounter for screening examination for other mental health and behavioral disorders; Mixed hyperlipidemia; Essential hypertension; Adenocarcinoma of right lung (HCC); Hypomagnesemia; Hypokalemia Start: 06-13-2025 End: 06-13-2025 ambulatory REVA WASSERMAN Facility:[facility] Start: 06-01-2025 End: 06-02-2025 Telephone encounter Harjinder Braswell MD Work Phone: [facility] Comment on above: Patient Update Start: 05-31-2025 End: 07-14-2025 Telephone encounter Ruba Trujillo APRN.SCREENING TECHNICIAN Work Phone: [facility] Comment on above: Patient Update (Dr. Gates's note 05/30/25) Start: 05-30-[address] Arthur Gates MD -[facility] Start: 05-30-2025 End: 05-30-[address] Arthur Gates MD -[facility] Work Phone: Start: 05-30-2025 End: 05-30-[address] Harjinder Braswell MD Work Phone: -[facility] Start: 05-26-2025 End: 05-26-2025 Follow-up encounter Ruba Trujillo APRN.CNP Work Phone: [facility] [place] Comment on above: Results Start: 05-23-2025 End: 05-23-2025 Office outpatient visit 25 minutes Ruba Trujillo APRN.SCREENING TECHNICIAN Work Phone: [facility] [place] Comment on above: Primary osteoarthrit is of both hands (Primary Dx); Weight loss; Malignant neoplasm of unspecified part of right bronchus or lung (HCC); Abnormal urine findings Start: 05-23-2025 End: 05-23-2025 ambulatory [facility] Facility:[facility] Start: 05-16-2025 Non-patient / Non-visit Dr. 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); Adenocarcinoma of right lung (HCC) Start: 05-04-2025 End: 05-04-2025 Subsequent hospital visit by physician Ct [facility] (I-Stat) Work Phone: [facility] Comment on above: Weight loss [R63.4] Start: 05-02-2025 End: 05-03-2025 Telephone encounter Timothy Yarbrough DO Work Phone: Hematology/Oncology Comment on above: Appointment Start: 04-26-2025 End: 04-26-2025 Follow-up encounter Ruba Trujillo APRN.SCREENING TECHNICIAN Work Phone: [facility] [place] Comment on above: Results Start: 04-25-2025 End: 04-25-2025 ambulatory [facility] Facility:[facility] Start: 04-25-2025 End: 04-25-2025 Office outpatient visit 25 minutes Ruba Trujillo APRN.SCREENING TECHNICIAN Work Phone: [facility] [place] Comment on above: Abnormal thyroid fun ction test (Primary Dx); Weight loss; Intra-abdominal and pelvic swelling, mass and lump, unspecified site; Adenocarcinoma of right lung (HCC); Bilateral hand pain Start: 04-25-2025 End: 04-25-2025 ambulatory RUBA TRUJILLO Facility:[facility] Start: 04-07-2025 End: 06-07-2025 Follow-up encounter Nora Guerrero MD Work Phone: OB/Gynecology Start: 04-07-2025 End: 04-07-2025 ambulatory NORA GUERRERO Facility:[facility] Start: 04-07-2025 End: 04-07-2025 ambulatory NORA GUERRERO Facility:[facility] Start: 03-08-2024 End: 03-08-2024 Emergency department patient visit [facility] Work Phone: Start: 03-08-2024 Telephone encounter Ruba melton APRN.SCREENING TECHNICIAN Work Phone: [facility] [place] Start: 03-03-2024 End: 03-03-2024 ambulatory Lab[facility] [facility] Work Phone: Hematology/Oncology Comment on above: Malignant neoplasm o f unspecified part of right bronchus or lung (HCC) (Primary Dx) Start: 03-03-2024 End: 03-03-2024 Subsequent hospital visit by physician Laila [facility] ([facility]) Work Phone: Cat Scan Comment on above: Intra-abdominal and pelvic swelling, mass and lump, unspecified site [R19.00] Start: 03-02-2024 Telephone encounter Timothy polk DO Work Phone: Hematology/Oncology Comment on above: Appointment Start: 02-19-2024 Telephone encounter Ruba melton APRN.SCREENING TECHNICIAN Work Phone: [facility] [place] Comment on above: Results Start: 02-17-2024 End: 02-17-2024 Office outpatient visit 25 minutes Ruba Trujillo APRN.CNP Work Phone: [facility] [place] Comment on above: Swelling (Primary Dx ); Intra-abdominal and pelvic swelling, mass and lump, unspecified site; Swelling abdomen; Type 2 diabetes mellitus without complication, without long-term current use of insulin (HCC); Hypothyroidism, unspecified type Start: 02-16-2024 End: 02-16-2024 ambulatory Harjinder Braswell MD Work Phone: [facility] Comment on above: Nurse Triage Call; b ilateral leg swelling leg swelling. Start: 02-10-2024 Registered [facility] Start: 05-25-2023 End: 05-25-2023 ambulatory [facility] Work Phone: Start: 05-25-2023 End: 05-25-2023 Patient encounter procedure [facility] Work Phone: Start: 04-23-2023 Registered [facility] Start: 03-05-2023 Telephone encounter Harjinder Braswell MD Work Phone: [facility] Comment on above: Patient Update Start: 02-27-2023 Telephone encounter Harjinder Braswell MD Work Phone: [facility] Comment on above: Results Start: 02-25-2023 End: 02-25-2023 Patient encounter procedure Harjinder Braswell MD Work Phone: [facility] Comment on above: Essential hypertensi on (Primary Dx); Mixed hyperlipidemia; Adenocarcinoma of right lung (HCC); Thoracic spine tumor; Type 2 diabetes mellitus without complication, without long-term current use of insulin (HCC); Hypothyroidism, unspecified type; Constipation, unspecified constipation type; Dysuria; Microscopic hematuria; Foot pain, bilateral; Urge incontinence; Simple chronic bronchitis (HCC); Peripheral vascular disease, unspecified (HCC) Start: 05-26-2022 End: 05-26-2022 Patient encounter procedure [facility], [facility] Start: 04-28-2022 Registered [facility] Start: 12-11-2020 End: 12-11-2020 Orders Only Mahad Azevedo Work Phone: [facility] Start: 12-10-2018 Patient encounter procedure Lucho Fiore Facility:[facility] Start: 12-10-2018 End: 12-10-2018 Patient encounter procedure Lucho Fiore Work Phone: [facility] Start: 06-29-2014 End: 12-27-2016 Patient encounter procedure Ruba Trujillo TRAVEL AGENCY MANAGER.SCREENING TECHNICIAN Work Phone: [facility] Procedures Date Procedure Procedure Detail Performing Clinician Start: 06-13-2025 Adult depression scr eening assessment Reva Denise TRAVEL AGENCY MANAGER.SCREENING TECHNICIAN Work Phone: Start: 05-30-[address] Harjinder Braswell MD Work Phone: Start: 05-26-[address] Harjinder Braswell MD Work Phone: Start: 05-26-2024 Measurement of renal function Dr. Harjinder Braswell MD Work Phone: Comment on above: GFR Calc Start: 05-26-2024 Total iron binding capacity measurement Dr. Harjinder Braswell MD Work Phone: Start: 03-08-2024 CT of thorax with contrast Start: 05-25-2023 CT of thorax with contrast Start: 02-25-2023 Urnls dip stick/tabl et rgnt auto w/o microscopy Harjinder Braswell MD Work Phone: Start: 05-26-2022 CT of thorax with contrast Start: 01-23-2020 PET/CT Tumor Base -T high Subs Start: 10-31-[address] Harjinder Braswell MD Work Phone: Start: 10-24-2019 Allergen spec ige cr ude allergen extract each Dr. Harjinder Braswell MD Work Phone: Start: 05-09-2019 PET/CT Tumor Base -T high Subs Start: 12-10-2018 Basic metabolic 2000 panel - Serum or Plasma Lucho Fiore Work Phone: Start: 12-10-2018 Complete blood count with white cell differential, manual Lucho Fiore Work Phone: Start: 11-22-2018 Antibody screen Comment on above: Performed By: #### T +S ####[id number] [place] [address] Plan of Treatment Date Care Activity Detail Author Start: 08-02-2028 Urine microalbumin profile [facility] Start: 06-13-2026 Anxiety Screening Anxiety Screening [facility] Start: 06-13-2026 Depression Screening Depression Scre ening [facility] Start: 06-13-2026 Diabetic foot examination Diabetic F oot Exam [facility] Start: 06-13-2026 Hepatitis B surface antibody level LDL Cholesterol [facility] Start: 03-14-2026 Glaucoma screening Dilated Retinal E xam [facility] Start: 10-26-2025 End: 01-25-2026 Thyrotropin [Units/volume] in Serum or Plasma THYROID STIMULATING HORMONE Lab Routine Abnormal thyroid function test Expected: 10/26/2025, Expires: 01/25/2026 [facility] Work Phone: Comment on above: Expected: 10/26/2025 , Expires: 01/25/2026 Start: 10-26-2025 End: 01-25-2026 Thyroxine (T4) free [Mass/volume] in Serum or Plasma T4 FREE/FREE THYROXINE Lab Routine Abnormal thyroid function test Expected: 10/26/2025, Expires: 01/25/2026 [facility] Comment on above: Expected: 10/26/2025 , Expires: 01/25/2026 Start: 10-08-2025 Hemoglobin A1c measurement HbA1C [facility] Start: 10-02-2025 End: 10-02-2025 Patient encounter procedure 10/02/2025 1:00 PM EST Office Visit [facility] [address] [place] [address] Ruba Trujillo APRN.SCREENING TECHNICIAN [address] [place] [address] 3 month follow up [facility] Comment on above: 3 month follow up Start: 07-17-2025 Influenza vaccination Influenza Vacc ine (#1) [facility] Start: 07-11-2025 End: 07-11-2025 Patient encounter procedure 07/11/2025 1:00 PM EDT Office Visit [facility] [address] [place] [id number] Ruba Trujillo APRN.SCREENING TECHNICIAN [address] [place] [address] 4 week followup [facility] [place] Comment on above: 4 week followup Start: 06-13-2025 End: 09-12-2025 Basic metabolic 2000 panel - Serum or Plasma [facility] Work Phone: Comment on above: Expected: 06/13/2025 , Expires: 09/12/2025 Start: 06-13-2025 End: 09-12-2025 Creatine kinase [Enzymatic activity/volume] in Serum or Plasma [facility] Comment on above: Expected: 06/13/2025 , Expires: 09/12/2025 Start: 06-13-2025 End: 09-12-2025 LIPID PANEL, NONFASTING [facility] Comment on above: Expected: 06/13/2025 , Expires: 09/12/2025 Start: 06-13-2025 End: 09-12-2025 Magnesium [Mass/volume] in Serum or Plasma [facility] Comment on above: Expected: 06/13/2025 , Expires: 09/12/2025 Start: 06-13-2025 End: 09-12-2025 Nuclear Ab [Presence] in Serum by Immunoassay [facility] Comment on above: Expected: 06/13/2025 , Expires: 09/12/2025 Start: 06-13-2025 End: 09-12-2025 Rheumatoid factor [Units/volume] in Serum or Plasma [facility] Comment on above: Expected: 06/13/2025 , Expires: 09/12/2025 Start: [facility]2025 [facility] Start: 05-23-2025 End: 05-23-2025 Patient encounter procedure 05/23/2025 3:00 PM EDT Office Visit [facility] [place] [address] [facility] [place] [address] Ruba Trujillo APRN.SCREENING TECHNICIAN [address] [place] [address] 1 sridhar follow up - 40 min per [facility] [place] Comment on above: 1 sridhar follow up - 4 0 min per [facility] Start: 05-04-2025 End: 05-04-2025 Patient encounter procedure [facility] Comment on above: Dx: Weight loss [R63 .4]; Intra-abdominal and pelvic swelling, mass and lump, unspecified site [R19.00]; 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] Start: 05-04-2025 End: 05-04-2025 ambulatory 05/04/2025 2:00 PM EDT [facility] Hematology/Oncology [address] [place] [address] Wstr, Lab/[place] [facility] [address] [place] [address] [facility] FOR [facility]AGING Hematology/Oncology Comment on above: PORT ACCESS FOR IMAG ING Start: 04-26-2025 End: 07-26-2025 Bacteria identified in Urine by Culture BACTERIAL CULTURE, URINE Microbiology Routine Abnormal urine findings Expected: 04/26/2025, Expires: 07/26/2025 [facility] Comment on above: Expected: 04/26/2025 , Expires: 07/26/2025 Start: 04-25-2025 End: 04-25-2026 Hemoglobin.gastrointestina l.lower [Presence] in Stool by Immunoassay IMMUNOCHEMICAL FECAL OCCULT BLOOD TEST Lab Routine Weight loss Expected: 04/25/2025, Expires: 04/25/2026 [facility] Work Phone: Comment on above: Expected: 04/25/2025 , Expires: 04/25/2026 Start: 02-16-2025 Annual PCP Team Fretted Instrument Inspector joyce Disease Visit Annual PCP Team Chronic Disease Visit [facility] Start: 11-16-2024 Advance Directive Discussion Advance Directive Discussion [facility] Start: 11-16-2024 Medicare Advantage A nnual Wellness Visit Medicare Advantage Annual Wellness Visit [facility] Start: 11-09-2024 Covid-19 Vaccine ( season) Covid-19 Vaccine ( season) [facility] Start: 08-18-2024 Hemoglobin A1c measurement HbA1C [facility] Start: 07-17-2024 Influenza vaccination Influenz a Vaccine (Season Ended) [facility] Start: 03-08-2024 Venous catheter care management [facility] Start: 03-08-2024 [facility] Start: 02-26-2024 3 comp foot exam completed DIABETIC FOOT EXAM [facility] Start: 02-26-2024 ANNUAL PCP TEAM TEACHER'S ASSISTANT JOYCE DISEASE VISIT ANNUAL PCP TEAM CHRONIC DISEASE VISIT [facility] Start: 02-26-2024 BP CONTROLLED (<130/80) BP CONTROLLE D (<130/80) [facility] Start: 02-26-2024 Diabetic foot examination Diabetic F oot Exam [facility] Start: 02-26-2024 Hepatitis B surface antibody level LDL CHOLESTEROL [facility] Start: 02-26-2024 Pneumococcal Vaccine : 65+ (2 of 2 - PCV) Pneumococcal Vaccine: 65+ (2 of 2 - PCV) [facility] Comment on above: Postponed from 08/01 (Declined at this time) Start: 02-26-2024 PNEUMOCOCCAL: 65+ (2 - PCV) PNEUMOCOCCAL: 65+ (2 - PCV) [facility] Comment on above: Postponed from 08/01 (Declined at this time) Start: 02-26-2024 SHINGRIX VACCINE (2 of 3) PADILLA GRIX VACCINE (2 of 3) [facility] Comment on above: Postponed from 08/14 (Declined at this time) Start: 02-17-2024 End: 05-18-2024 Basic metabolic 2000 panel - Serum or Plasma [facility] Work Phone: Comment on above: Expected: 02/17/2024 , Expires: 05/18/2024 Start: 02-17-2024 End: 05-18-2024 Hemoglobin A1c in Blood [facility] Work Phone: Comment on above: Expected: 02/17/2024 , Expires: 05/18/2024 Start: 02-17-2024 End: 05-18-2024 Hepatic function 2000 panel - Serum or Plasma [facility] Work Phone: Comment on above: Expected: 02/17/2024 , Expires: 05/18/2024 Start: 02-17-2024 End: 05-18-2024 Thyrotropin [Units/volume] in Serum or Plasma [facility] Work Phone: Comment on above: Expected: 02/17/2024 , Expires: 05/18/2024 Start: 02-17-2024 End: 05-18-2024 Thyroxine (T4) free [Mass/volume] in Serum or Plasma [facility] Work Phone: Comment on above: Expected: 02/17/2024 , Expires: 05/18/2024 Start: 11-16-2023 Advance Directive Discussion Advance Directive Discussion [facility] Start: 11-16-2023 Behavioral Health Screening Behavioral Health Screening [facility] Start: 11-16-2023 Depression Assessment Depression Ass essment [facility] Start: 08-29-2023 End: 10-29-2023 Lipid 1996 panel - Serum or Plasma LIPID PANEL BASIC Lab Routine Mixed hyperlipidemia Expected: 08/29/2023, Expires: 10/29/2023 [facility] Work Phone: Comment on above: Expected: 08/29/2023 , Expires: 10/29/2023 Start: 08-27-2023 Hemoglobin A1c measurement HbA1C [facility] Start: 08-27-2023 Hemoglobin A1c/Hemoglobin.total in Blood HBA1C [facility] Start: 07-17-2023 Covid-19 Vaccine ( season) Covid-19 Vaccine () [facility] Start: 07-17-2023 Influenza vaccination INFLUENZ A (Season Ended) [facility] Start: 05-25-2023 Venous catheter care management [facility] Start: 02-27-2023 End: 04-29-2023 Bacteria identified in Urine by Culture URINE CULTURE Microbiology Routine Urinary tract infection with hematuria, site unspecified Expected: 02/27/2023, Expires: 04/29/2023 [facility] Work Phone: Comment on above: Expected: 02/27/2023 , Expires: 04/29/2023 Start: 02-27-2023 End: 04-29-2023 Hepatic function 2000 panel - Serum or Plasma HEPATIC FUNCTION PNL Lab Routine Mixed hyperlipidemia Expected: 02/27/2023, Expires: 04/29/2023 [facility] Work Phone: Comment on above: Expected: 02/27/2023 , Expires: 04/29/2023 Start: 02-27-2023 End: 04-29-2023 Urinalysis complete panel - Urine URINALYSIS, WITH MICROSCOPIC Lab Routine Urinary tract infection with hematuria, site unspecified Expected: 02/27/2023, Expires: 04/29/2023 [facility] Work Phone: Comment on above: Expected: 02/27/2023 , Expires: 04/29/2023 Start: 02-25-2023 End: 04-27-2023 ALBUMIN/CREAT RATIO RND UR ALBUMIN/CREAT RATIO RND UR Lab Routine Type 2 diabetes mellitus without complication, without long-term current use of insulin (HCC) Expected: 02/25/2023, Expires: 04/27/2023 [facility] Work Phone: Comment on above: Expected: 02/25/2023 , Expires: 04/27/2023 Start: 05-29-2022 Venous catheter care management [facility] Start: 05-26-2022 Venous catheter care management [facility] Work Phone: Start: 11-25-2021 Venous catheter care management [facility] Start: 03-25-2021 Venous catheter care management [facility] Start: 02-10-2021 Venous catheter care management [facility] Start: 11-07-2019 Disease process or condition education [facility] Start: 11-07-2019 Medication administr ation assessment [facility] Start: 11-07-2019 Medication monitoring [facility] Start: 11-07-2019 Precautionary procedure [facility] Start: 11-07-2019 Vital signs measurements [facility] Start: 11-07-2019 [facility] Start: 10-31-2019 Disease process or condition education [facility] Start: 10-31-2019 Medication administr ation assessment [facility] Start: 10-31-2019 Medication monitoring [facility] Start: 10-31-2019 Precautionary procedure [facility] Start: 10-31-2019 Vital signs measurements [facility] Start: 10-31-2019 [facility] Start: 10-24-2019 Disease process or condition education [facility] Start: 10-24-2019 Medication administr ation assessment [facility] Start: 10-24-2019 Medication monitoring [facility] Start: 10-24-2019 Precautionary procedure [facility] Start: 10-24-2019 Vital signs measurements [facility] Start: 10-24-2019 [facility] Start: 10-03-2019 Disease process or condition education [facility] Start: 10-03-2019 Medication administr ation assessment [facility] Start: 10-03-2019 Medication monitoring [facility] Start: 10-03-2019 Precautionary procedure [facility] Start: 10-03-2019 Vital signs measurements [facility] Start: 10-03-2019 [facility] Start: 09-26-2019 Disease process or condition education [facility] Start: 09-26-2019 Medication administr ation assessment [facility] Start: 09-26-2019 Medication monitoring [facility] Start: 09-26-2019 Precautionary procedure [facility] Start: 09-26-2019 Vital signs measurements [facility] Start: 09-26-2019 [facility] Start: 09-19-2019 Disease process or condition education [facility] Start: 09-19-2019 Medication administr ation assessment [facility] Start: 09-19-2019 Medication monitoring [facility] Start: 09-19-2019 Precautionary procedure [facility] Start: 09-19-2019 Vital signs measurements [facility] Start: 09-19-2019 [facility] Start: 09-05-2019 Disease process or condition education [facility] Start: 09-05-2019 Medication administr ation assessment [facility] Start: 09-05-2019 Medication monitoring [facility] Start: 09-05-2019 Precautionary procedure [facility] Start: 09-05-2019 Vital signs measurements [facility] Start: 09-05-2019 [facility] Start: 08-29-2019 Disease process or condition education [facility] Start: 08-29-2019 Medication administr ation assessment [facility] Start: 08-29-2019 Medication monitoring [facility] Start: 08-29-2019 Precautionary procedure [facility] Start: 08-29-2019 Vital signs measurements [facility] Start: 08-29-2019 [facility] Start: 08-22-2019 Disease process or condition education [facility] Start: 08-22-2019 Medication administr ation assessment [facility] Start: 08-22-2019 Medication monitoring [facility] Start: 08-22-2019 Precautionary procedure [facility] Start: 08-22-2019 Vital signs measurements [facility] Start: 08-22-2019 [facility] Start: 08-08-2019 Disease process or condition education [facility] Start: 08-08-2019 Medication administr ation assessment [facility] Start: 08-08-2019 Medication monitoring [facility] Start: 08-08-2019 Precautionary procedure [facility] Start: 08-08-2019 Vital signs measurements [facility] Start: 08-08-2019 [facility] Start: 08-01-2019 Disease process or condition education [facility] Start: 08-01-2019 Medication administr ation assessment [facility] Start: 08-01-2019 Medication monitoring [facility] Start: 08-01-2019 Precautionary procedure [facility] Start: 08-01-2019 Vital signs measurements [facility] Start: 08-01-2019 [facility] Start: 07-25-2019 Disease process or condition education [facility] Start: 07-25-2019 Medication administr ation assessment [facility] Start: 07-25-2019 Medication monitoring [facility] Start: 07-25-2019 Precautionary procedure [facility] Start: 07-25-2019 Vital signs measurements [facility] Start: 07-25-2019 [facility] Start: 06-15-2019 [facility] Start: 06-09-2019 [facility] Start: 06-08-2019 Microscopic observat ion [Identifier] in Body fluid by Cyto stain [facility] Start: 06-08-2019 Prothrombin time [facility] Start: 06-08-2019 Ultrasonic guidance for thoracentesis [facility] Start: 05-23-2019 [facility] Start: 04-19-2019 Prothrombin time [facility] Start: 03-21-2019 Magnesium [Mass/volu me] in Serum or Plasma [facility] Start: 03-21-2019 Magnesium measurement [facility] Start: 03-21-2019 [facility] Start: 02-28-2019 [facility] Start: 02-22-2019 [facility] Start: 02-07-2019 [facility] Start: 01-29-2019 Hepatitis B screening URINE ALBUMIN:CREATININE RATIO [facility] Start: 01-03-2019 [facility] Start: 12-13-2018 [facility] Start: 09-11-2018 Glaucoma screening Dilated Retinal E xam [facility] Start: 09-11-2018 Hepatitis C antibody , confirmatory test DILATED RETINAL EXAM [facility] Start: 08-14-2014 Shingrix Vaccine (2 of 3) Padilla grix Vaccine (2 of 3) [facility] Start: 08-01-2009 Pneumococcal Vaccine : 50+ (2 of 2 - PCV) Pneumococcal Vaccine: 50+ (2 of 2 - PCV) [facility] Start: 08-01-2009 Pneumococcal Vaccine : 65+ (2 of 2 - PCV) Pneumococcal Vaccine: 65+ (2 of 2 - PCV) [facility] Start: 2003 RSV Vaccine (1 - 1-d ose 60+ series) RSV Vaccine (1 - 1-dose 60+ series) [facility] Start: 1961 Anxiety Screening Anxiety Screening [facility] Start: 1961 BP Controlled (<130/80) BP Controlle d (<130/80) [facility] Start: 1961 Depression Screening Depression Scre ening [facility] Alanine aminotransfe rase [Enzymatic activity/volume] in Serum or Plasma [facility] Albumin [Mass/volume ] in Serum or Plasma [facility] Alkaline phosphatase [Enzymatic activity/volume] in Serum or Plasma [facility] Anion gap in Serum o r Plasma [facility] Bacteria identified in Urine by Culture URINE CULTURE Microbiology Routine Dysuria 02/25/2023 2:13 PM EDT [facility] Work Phone: Bacteria identified in Urine by Culture BACTERIAL CULTURE, URINE Microbiology Routine Abnormal urine findings 05/23/2025 3:55 PM EDT [facility] Work Phone: Bilirubin, total measurement [facility] BUN/Creatinine ratio [facility] Calcium [Mass/volume ] in Serum or Plasma [facility] Carbon dioxide, tota l [Moles/volume] in Central venous blood [facility] Creatinine [Mass/vol ume] in Serum or Plasma [facility] CT Abdomen and Pelvi s W contrast IV [facility] Work Phone: CT Abdomen and Pelvi s W contrast IV [facility] End: 03-18-2025 CT Abdomen and Pelvis W contrast IV CT ABD/PEL W IVCON Radiology Routine Intra-abdominal and pelvic swelling, mass and lump, unspecified site 1 Occurrences starting 02/17/2024 until 03/18/2025 [facility] Work Phone: Comment on above: 1 Occurrences starti ng 02/17/2024 until 03/18/2025 CT Abdomen and Pelvi s W contrast IV CT ABD/PEL W IVCON Radiology Routine Intra-abdominal and pelvic swelling, mass and lump, unspecified site 03/03/2024 3:24 PM EDT [facility] Work Phone: End: 05-25-2026 CT Abdomen and Pelvis W contrast IV CT ABD/PEL W IVCON Radiology Routine Weight loss Intra-abdominal and pelvic swelling, mass and lump, unspecified site Adenocarcinoma of right lung (HCC) 1 Occurrences starting 04/25/2025 until 05/25/2026 [facility] Comment on above: 1 Occurrences starti ng 04/25/2025 until 05/25/2026 CT Abdomen and Pelvi s W contrast IV CT ABD/PEL W IVCON Radiology Routine Weight loss Intra-abdominal and pelvic swelling, mass and lump, unspecified site Adenocarcinoma of right lung (HCC) 05/04/2025 3:46 PM EDT [facility] Work Phone: CT Chest W contrast IV [facility] Work Phone: CT Chest W contrast IV [facility] End: 05-25-2026 CT Chest W contrast IV CT CHEST W IVCON Radiology Routine Weight loss Intra-abdominal and pelvic swelling, mass and lump, unspecified site Adenocarcinoma of right lung (HCC) 1 Occurrences starting 04/25/2025 until 05/25/2026 [facility] Comment on above: 1 Occurrences starti ng 04/25/2025 until 05/25/2026 CT Chest W contrast IV CT CHEST W IVCON Radiology Routine Weight loss Intra-abdominal and pelvic swelling, mass and lump, unspecified site Adenocarcinoma of right lung (HCC) 05/04/2025 3:46 PM EDT [facility] Glucose [Mass/volume ] in Serum or Plasma [facility] Lactate dehydrogenas e measurement [facility] Measurement of renal function [facility] Patient Education ED Screening E xam Medical Nonurgent [facility] Work Phone: Patient referral [facility] Work Phone: Potassium measurement [facility] PT Unspecified body region [facility] Work Phone: PT Unspecified body region [facility] Serum chloride measurement [facility] Sodium measurement [facility] Total protein measurement [facility] Ultrasonic guidance for thoracentesis [facility] Work Phone: Ultrasonic guidance for thoracentesis [facility] Urea nitrogen [Mass/volume] in Serum or Plasma [facility] End: 07-13-2026 XR Hand - bilateral PA XR HAND/WRIST SURVEY ARTHRITIS 1V PA BILATERAL Radiology Routine Bilateral hand pain 1 Occurrences starting 06/13/2025 until 07/13/2026 [facility] Comment on above: 1 Occurrences starti ng 06/13/2025 until 07/13/2026 XR Hand - bilateral PA XR HAND/W RIST SURVEY ARTHRITIS 1V PA BILATERAL Radiology Routine Bilateral hand pain 06/13/2025 2:17 PM EDT [facility] Immunizations Immunization Date Immunization Notes Care Provider Fa cility 09-14-2024 COVID-19 vaccine, ag e 12+ yr, bivalent (MODERNA) Ruba Trujillo TRAVEL AGENCY MANAGER.SCREENING TECHNICIAN Work Phone: [facility] 09-14-2024 influenza virus vacc ine, unspecified formulation Ruba Trujillo TRAVEL AGENCY MANAGER.SCREENING TECHNICIAN Work Phone: [facility] 01-10-2021 COVID-19 original vaccine, age 12+ yr, monovalent ([employer]hub - PURPLE TOP) Harjinder Braswell MD Work Phone: [facility] 12-20-2020 COVID-19 original vaccine, age 12+ yr, monovalent ([employer] - PURPLE TOP) Harjinder Braswell MD Work Phone: [facility] 09-16-2018 Influenza virus vaccine [facility] 09-16-2018 influenza, high dose seasonal, preservative-free Harjinder Braswell MD Work Phone: [facility] 09-16-2018 influenza, seasonal, injectable, preservative free Harjinder Braswell MD Work Phone: [facility] 09-16-2018 influenza virus vacc ine, unspecified formulation Harjinder Braswell MD Work Phone: [facility] 08-02-2018 tetanus toxoid, redu kayley diphtheria toxoid, and acellular pertussis vaccine, adsorbed Harjinder Braswell MD Work Phone: [facility] 09-11-2014 influenza, seasonal, injectable Harjinder Braswell MD Work Phone: [facility] 06-19-2014 zoster vaccine, live Harjinder Braswell MD Work Phone: [facility] 09-28-2013 influenza virus vacc ine, unspecified formulation Harjinder Braswell MD Work Phone: [facility] 09-28-2012 influenza virus vacc ine, unspecified formulation Harjinder Braswell MD Work Phone: [facility] 08-26-2010 influenza virus vacc ine, unspecified formulation Harjinder Braswell MD Work Phone: [facility] 08-01-2008 pneumococcal polysaccharide vaccine, 23 valent Harjinder Braswell MD Work Phone: [facility] Work Phone: 08-01-2008 tetanus and diphther ia toxoids, adsorbed, preservative free, for adult use (2 Lf of tetanus toxoid and 2 Lf of diphtheria toxoid) Harjinder Braswell MD Work Phone: [facility] Work Phone: 10-13-2005 influenza virus vacc ine, unspecified formulation Harjinder Braswell MD Work Phone: [facility] Work Phone: 02-05-1996 diphtheria and tetan us toxoids, adsorbed for pediatric use Harjinder Braswell MD Work Phone: [facility] Work Phone: Payers Date Payer Category Payer Self-pay [id number] 2012 Medicare [employer] [place] [id number] 2012-Present [phone] [address] [place] [address] HMO [id number] 2012 Medicare (Managed Care[place] [id number] 2012 Medicare [id number] Unknown [id number] Unknown [id number] Unknown [id number] Unknown [id number] Unknown [id number] Unknown [id number] Unknown [id number] Unknown [id number] Social History Date Type Detail Facility Tobacco smoking stat us LAIS Unknown if ever smoked [facility] Start: 1945 Sex Assigned At Not on file [facility] Start: 11-23-2020 End: 03-08-2024 Tobacco smoking status LAIS Unknown if ever smoked [facility] Start: 06-12-2020 None [facility] Start: 06-12-2020 With Family [facility] Start: 11-23-2020 Cigarettes [facility] Start: 1945 Sex Assigned At Female [facility] Start: 02-25-2023 End: 04-07-2025 Tobacco smoking status NHIS Ex-smoker [facility] End: 12-30-2008 History of tobacco use Current smoker [facility] End: 12-30-2008 History of tobacco use Cigarette Smoker [facility] Start: 02-25-2023 End: 04-07-2025 Tobacco use and exposure Smokeless tobacco non-user [facility] Start: 02-25-2023 End: 05-23-2025 Alcohol intake Current drinker of alcohol (finding) [facility] Start: 02-25-2023 End: 02-17-2024 History of Social function [facility] Work Phone: Start: 02-25-2023 End: 02-17-2024 Tobacco use panel [facility] Work Phone: Start: 10-17-2012 Adult Depression Screening Assessment 0 [facility] Work Phone: Has the [employer], or [employer] threatened to shut off services in your home in past 12Mo No [facility] Do you belong to any clubs or organizations such as temple groups, unions, fraternal or athletic groups, or school groups? Yes [facility] Are you now , , , , never or living with a partner? [facility] How often to you hav e a drink containing alcohol? Monthly or less [facility] How many standard dr inks containing alcohol do you have on a typical day? 1 or 2 [facility] How often do you hav e 6 or more drinks on 1 occasion? Never [facility] Do you feel stress - tense, restless, nervous, or anxious, or unable to sleep at night because your mind is troubled all the time - these days [OSQ] Not at all [facility] (I/We) worried wheth er (my/our) food would run out before (I/we) got money to buy more. Never true [facility] Medical Equipment Procedure Code Equipment [...] 1 04/23/20 9:35 PM EDT User, Heidy [facility] 04-23-2025 How often to you hav e a drink containing alcohol? Monthly or less 04/23/2025 9:35 PM EDT User, Heidy Monthly or less [facility] 04-23-[address] inks containing alcohol do you have on a typical day? 1 or 2 04/23/2025 9:35 PM EDT User, Heidy 1 or 2 [facility] 04-23-2025 How often do you hav e 6 or more drinks on 1 occasion? Never 04/23/2025 9:35 PM EDT EdelmiraHeidy Never [facility] 05-23-2015 Are you deaf, or do you have serious difficulty hearing No 05/23/2015 11:47 AM Anjelica Aguirre RN No [facility] 05-23-2015 Are you blind, or do you have serious difficulty seeing, even when wearing glasses No 05/23/2015 11:47 AM Anjelica Aguirre RN No [facility] 05-23-2015 Do you have serious difficulty walking or climbing stairs No 05/23/2015 11:47 AM Anjelica Aguirre RN No [facility] 05-23-2015 Do you have difficul ty dressing or bathing No 05/23/2015 11:47 AM Anjelica Aguirre RN No [facility] 05-23-2015 Because of a physica l, mental, or emotional condition, do you have difficulty doing errands alone such as visiting a physician's office or shopping No 05/23/2015 11:47 AM Anjelica Aguirre RN No [facility] Mental Status Date Assessment Result Facility 03-08-2024 Cognitive function Level Of Cons ciousness Awake;Alert;Appropriate [facility] Work Phone: 11-07-2019 Cognitive function Mood Descript ion Appropriate;Calm [facility] Work Phone: 05-23-2015 Because of a physica l, mental, or emotional condition, do you have serious difficulty concentrating, remembering, or making decisions No 05/23/2015 11:47 AM Anjelica Aguirre RN No [facility] Clinical Notes 06-04-2016 to 09-28-2025 Ruba Trujillo APRN.SCREENING TECHNICIAN - 07/11/2025 5:40 PM EDTPatient InstructionsTelephone Encounter - Ileana Ramos LPN - 06/16/2025 12:04 PM EDTTelephone Encounter - Ileana Ramos LPN - 06/16/2025 12:04 PM EDT Note Date & Type Note Facility 09-28-2025 Note [facility] Medical Records Department [address] [place] [address] Discharge Summary 09/28/25 1338 MR#: [id number] Acct: [id number] Name: TRISH HUNT Rep #: [id number] : 1945 80 From: Alexandro Mathews MD PCP: Dr. Harjinder Braswell MD Status:ADM IN Location: [place] [address] Providers Date of Admission: 09/27/25 Primary Care Physician: Dr. Harjinder Braswell MD Reason For Visit: CHF, AND [...] 06:39 Laboratory: Labo (more content not included)... [facility] 08-09-2025 Note HNO ID: [id number] Author: RUBA TRUJILLO APRN.SCREENING TECHNICIAN Service: ? Author Type: Nurse Practitioner Type: [...] needed. - Follow (more content not included)... [facility] 07-11-2025 Note HNO ID: [id number] Author: RUBA TRUJILLO APRN.SCREENING TECHNICIAN Service: ? Author Type: Nurse Practitioner Type: [...] well. - Dis (more content not included)... [facility] 07-11-2025 History of Presen t illness [...] as needed for worsening/no improvement. Ruba Trujillo APRN.SCREENING TECHNICIAN Recording using [employer] software for draft documentation of the visit was discussed with the patient/authorized business center representative; all questions welcomed and answered. Patient/authorized business center representative agreed to proceed [1] Social History Tobacco Use Smoking status: Former Current packs/day: 0.00 Types: Cigarettes Quit date: 12/30/2008 Years since quittin.5 Smokeless tobacco: Never Vaping Use Vaping status: Never Used Substance Use Topics Alcohol use: Yes Comment: wine Drug use: No documented in this encounter [facility] 07-11-2025 Instructions Ruba Trujillo APRN.CNP [...] after the prednisone. documented in this encounter [facility] 06-16-2025 Telephone encounter Note Patient notified. [facility] 06-16-2025 Miscellaneous Notes Patient notified. Inflammatory markers are normal. Kidney function normal. Magnesium normal. Cholesterol levels are much better. What ever changes you have made, really improved your cholesterol. documented in this encounter [facility] 06-15-2025 Progress note Formatting of t his note might be different from the original. Inflammatory markers are normal. Kidney function normal. Magnesium normal. Cholesterol levels are much better. What ever changes you have made, really improved your cholesterol. [facility] 06-13-2025 History of Presen [...] PATIENT PRESENTS WITH AN IMPLANTABLE OR ATTACHED BOAT FINISHER: No RADIOLOGY DEPARTMENT: General X-ray: Exam(s) Completed: Upper Extremity X-Ray(s): Wrist, bilateral and Hand, bilateral 1 view arthritis hand/wrist PERIPHERAL IV DATA: Not applicable SIGNED BY: GENARO Guy) June 13, 2025 2:05 PM documented in this encounter [facility] 06-13-2025 Note HNO ID: [id number] Author: LETI PARHAM RT(R) Service: ? Author Type: Algebraist Type: Progress Notes Filed: 06/13/2025 14:16 Note [...] PATIENT PRESENTS WITH AN IMPLANTABLE OR ATTACHED BOAT FINISHER: No RADIOLOGY DEPARTMENT: General X-ray: Exam(s) Completed: Upper Extremity X-Ray(s): Wrist, bilateral and Hand, bilateral 1 view arthritis hand/wrist PERIPHERAL IV DATA: Not applicable SIGNED BY: RT Malena(R) June 13, 2025 2:05 PM [facility] 06-13-2025 Instructions Reva Wasserman APRN.SCREENING TECHNICIAN - 06/13/2025 1:23 PM EDT - Stop [...] any dosage adjustments. documented in this encounter [facility] 06-13-2025 Note HNO ID: [id number] Author: REVA WASSERMAN APRN.MARLENA Service: ? Author Type: Nurse Practitioner Type: [...] wheezes/rhonchi/rales. HEART: Re (more content not included)... [facility] 06-13-2025 History of Presen t illness [...] Reva Wasserman APRN.CNP documented in this encounter [facility] 06-02-2025 Telephone encounter Note Noted. Ruba Trujillo APRN.CNP [facility] 06-02-2025 Miscellaneous Notes Noted. Ruba Trujillo APRN.CNP Phoned pt, notified of provider response. She states she was only to follow up with Ortho as needed. Advised pt to reach out to Ortho for appt to discuss her concerns. Pt states she will contact [facility] for appt. Eyad Umaña LPN That is [...] Appetite remains decreased. Please advise patient. Luba Guillaume, RN documented in this encounter [facility] 06-02-2025 Telephone encounter Note Phoned pt, notified of provider response. She states she was only to follow up with Ortho as needed. Advised pt to reach out to Ortho for appt to discuss her concerns. Pt states she will contact [facility] for appt. Eyad Umaña LPN [facility] 06-02-2025 Telephone encounter Note That is the maximum meloxicam dose. It looks like she was going to have a follow-up with [facility] at the end of the month. Is that still scheduled? [facility] 06-01-2025 Telephone encounter Note Pt [...] Appetite remains decreased. Please advise patient. Luba Guillaume, RN [facility] 05-31-2025 Telephone encounter Note Scan on 05/30/2025 5:19 PM by ProviderVanna PA-C: Consultation - Hematology/Oncology [facility] 05-31-2025 Miscellaneous Notes Scan on 05/30/2025 5:19 PM by ProviderVanna PA-C: Consultation - Hematology/Oncology documented in this encounter [facility] 05-30-2025 Evaluation note Diagnosis Onset [...] port placement inactive May 30, 2025 1:45pm [facility] Work Phone: 1(170) 696-383207-15-2025 Evaluation note* Diagnosis Onset Date Resolution Status [...] tract infection) acute July 04, 2025 2:46pm [place] [employer] Work Phone: [phone]) [phone] Telephone encounter Note* Telephone Encounter - Eyad Umaña LPN - 05/26/2025 4:35 PM EDT Pt notified of results/provider instructions. She verbalized understanding. Eyad Umaña LPN [facility]07-11-2025 Miscellaneous Notes* Telephone Encounter - [...] daily X 1 week. Ruba Trujillo APRN.MARLENA [facility] encounter Note * Telephone Encounter - Ruba Trujillo APRN.CNP - 05/26/2025 4:30 PM EDT Can please let patient know that I received her urine culture back, which did confirm a urinary infection. I went ahead and sent macrobid to the pharmacy. It will be one pill twice daily X 1 week. Ruba Trujillo APRN.SCREENING TECHNICIAN [facility]07-08-2025 NoteHNO ID: [id number] Author: RUBA TRUJILLO APRN.MARLENA Service: ? Author Type: Nurse Practitioner Type: [...] arthritis. - Recently started on meloxicam by [facility] [facility] at [facility], with some improvement in pain intensity. [...] of both hands (M19.041) - Diagnosed by [facility] at [facility]; X-rays showed significant arthritic changes. - [...] advised to continue use. - Follow-up with [facility] at [facility] if no improvement by end of (more content not included)...[facility]07-08-2025 History of Present illness Narrative* Ruba Trujillo APRN.SCREENING TECHNICIAN - 05/23/2025 5:47 PM EDT This is a 79 year old female who presents today with: Trishbennie Hunt is an 79-year-old female with a [...] arthritis. - Recently started on meloxicam by [facility] [facility] at [facility], with some improvement in pain intensity. [...] of both hands (M19.041) - Diagnosed by [facility] at [facility]; X-rays showed significant arthritic changes. - [...] advised to continue use. - Follow-up with [facility] [facility] at [facility] if no improvement by end of [...] as needed for worsening/no improvement. Ruba Trujillo APRN.SCREENING TECHNICIAN Recording using [employer] software for draft documentation of the visit was discussed with the patient/authorized business center representative; all questions welcomed and answered. Patient/authorized business center representative agreed to proceed [facility] Instructions* Patient Instructions* Ruba Trujillo APRN.CNP - 05/23/2025 3:44 PM EDT - Meloxicam [...] update on hand pain. documented in this encounterA[facility] Telephone encounter Note * Telephone Encounter - Mellisa Araya - 05/03/2025 8:09 AM EDT Scheduled port access for imaging Mellisa Nolascolins [facility]06-18-2025 Miscellaneous Notes* Telephone Encounter - Mellisa Araya - 05/03/2025 8:09 AM EDT Scheduled port access for imaging Mellisa Araya * Telephone Encounter - Emma Whitehead PSS - 05/02/2025 4:36 PM EDT Pt would like to use port for appt on on 05/04/[address] prep @ 2:20 scan 3:20 Please call pt to confirm time documented in this encounterAden[facility]06-17-2025 Telephone encounter Note * Telephone Encounter - Emma Whitehead PSS - 05/02/2025 4:36 PM EDT Pt would like to use port for appt on on 05/04/[address] prep @ 2:20 scan 3:20 Please call pt to confirm time [facility]06-[facility] Telephone encounter Note* Telephone Encounter - Eyad Umaña LPN - 04/26/2025 3:06 PM EDT Pt notified. She verbalized understanding. Eyad Umaña LPN [facility]06-11-2025 Miscellaneous Notes* Telephone Encounter - [...] and put this order in. Ruba Trujillo APRN.MARLENA documented in this encounterAdena [facility]06-11-2025 Telephone encounter Note * Telephone Encounter - Ruba Trujillo APRN.CNP - 04/26/2025 1:54 PM EDT Script sent. Ruba Trujillo APRN.MARLENA [facility]06-11-2025 Telephone encounter Note* Telephone Encounter [...] send 90 day rx [facility]ep[facility]ole [facility] Eyad Umaña LPN [facility]06-11-2025 Telephone encounter Note* Telephone Encounter [...] and put this order in. Ruba Trujillo APRN.SCREENING TECHNICIAN [facility]06-10-2025 NoteHNO ID: [id number] Author: RUBA TRUJILLO APRN.MARLENA Service: ? Author Type: Nurse Practitioner Type: [...] Cancer Sister thyroid S (more content not included)...[facility]06-10-2025 History of Present illness Narrative* Ruba Trujillo APRN.SCREENING TECHNICIAN - 04/25/2025 6:19 PM EDT This is [...] worsening/no improvement. Ruba Trujillo APRN.MARLENA Recording using [employer] software for draft documentation of the visit was discussed with the patient/authorized business center representative; all questions welcomed and answered. Patient/authorized business center representative agreed to proceed documented in this encounterAdena [facility] Center06-10-2025 Instructions* Patient Instructions* Ruba Trujillo [...] -Recheck in 1 month documented in this encounterAdena [facility] Center05-23-2025 NoteHNO ID: [id number] Author: NORA GUERRERO MD Service: ? Author [...] Living2 SAB0 IAB0 Ectopic0 Multiple0 Live Births0 Senior Hr Generalist History LMP: Postmenopausal Age at Menarche: Age at First : Age at Menopause: Senior Hr Generalist History Comments: Sexual Activity: Yes; Male Contraception: [...] 3+ Medical Decision Making Level: 4 - ModerateOhio[facility]04-23-2024 Discharge summary Author Max Lau [facility] March 08, 2024 10:24pm Note Date/Time March 08, 2024 6:1 1pm [facility] Medical Records Department [address] [place] [address] Emergency Department Summary 03/08/24 MR#: [id number] Acct: [id number] Name: TRIHS HUNT Rep #:[id number] : 1945 78 From: Max Lau MD PCP: Dr. Harjinder Braswell MD Status:REG E R Location: ED [...] she needed to have imaging performed immediately. [facility] Medical History Back pain of thoracolumbar region [...] DAILY thyroid 08/11/18 [History Last Taken 01/14/21] fgqoapdtwxqx-Hh-zlqs-minerals 1 ea PO DAILY diet supplement 08/11/18 [...] AdvReac Intermediate Unknown Verified 03/08/24 17:31 [From Septra] trimethoprim [From Septra] AdvReac Intermediate Unknown Verified 03/08/24 17:31 Family [...] % (Auto) 64.7 Lymph % (Auto) 20.4 Pacific % (Auto) 8.2 Eos % (Auto) 5.7 [...] Signed: Jim García MD at 22:03 EDT , Discharge Plan Triage Chief Complaint: Abn [...] 20 MG tablet 20 mg PO QHS qougujsrwyqo-Sc-mcgp-minerals 1 EACH tablet 1 ea PO DAILY [...] Nausea) Qty: 10 0RF Primary Care Provider: Harjinder Braswell Referrals: Harjinder Braswell MD [Primary Care Provider] - 1 [...] your Primary Care Provider. Call [facility] ([phone]) or report to the closest Emergency Room. Call 911 if necessary. 03/08/242223 <Electronically signed by Max Lau MD> Cosigner Signature (if applicable): CC: Dr. Harjinder Braswell MD ~ Signed [facility] Work Phone: [phone] Telephone encounter Note* Telephone Encounter - Eyad Umaña LPN - 03/08/2024 2:38 PM EDT Information faxed to [facility] ER. Eyad Umaña LPN [facility]04-23-[facility]24 Miscellaneous Notes* Telephone Encounter - Eyad Umaña LPN - 03/08/2024 2:38 PM EDT Information faxed to [facility] ER. Eyad Umaña LPN * Telephone Encounter - Ruba Trujillo APRN.CNP - 03/08/2024 2:23 PM EDT Report called over to [facility] ER. Will ask nursing to fax over hx/diagnostics. * Telephone Encounter - Eyad Umaña LPN - 03/08/2024 2:00 PM EDT TC to pt, notified of results/provider instructions. Pt relies on transportation. She will call daughter to take her to [facility] ER when daughter gets of work. Eyad Umaña LPN * Telephone Encounter - Ruba Trujillo APRN.MARLENA - [...] give the ER a call. Ruba Trujillo APRN.CNP documented in this encounterAdena [facility] Center04-23-2024 Telephone encounter Note * Telephone Encounter - Ruba Trujillo APRN.CNP - 03/08/2024 2:23 PM EDT Report called over to [facility] ER. Will ask nursing to fax over hx/diagnostics. [facility] Work Phone: [phone]) 210-596004-23-2024 Telephone encounter Note* Telephone Encounter - Eyad Umaña LPN - 03/08/2024 2:00 PM EDT TC to pt, notified of results/provider instructions. Pt relies on transportation. She will call daughter to take her to [facility] ER when daughter gets of work. Eyad Umaña LPN [facility]04-23-2024 Telephone encounter Note* Telephone Encounter [...] give the ER a call. Ruba Trujillo APRN.CNP [facility]04-18-2024 History of Present illness Narrative* Niya Kerr RT(R) - 03/03/2024 3:00 PM EDT Radiology [...] PATIENT PRESENTS WITH AN IMPLANTABLE OR ATTACHED BOAT FINISHER: No ALLERGIES: Reviewed and unchanged CONTRAST ALLERGY: [...] PERIPHERAL IV DATA: power port accessed by [employer] RADIOLOGY DEPARTMENT: CT; Exam(s) Completed: Abdomen/Pelvis SIGNATURE: RT Kim(Dashawn) PATIENT NAME: Trish Hunt DATE: March 03, 2024 TIME: 3:27 PM documented in this encounterAdena [facility] Medical Center04-18-2024 History of Present illness Narrative* Randee Walton, RN - 03/03/2024 1:34 PM EDT Patient is here for IVAD port flush per [facility] [place] protocol. IVAD is located in right upper chest. Site cleansed with Chloraprep IVAD accessed with a #20 gauge 3/4" non-coring Gripper needle Blood Return: Good Flushed with: 20 ml Normal Saline Non-coring needle left intact for scan. Opsite applied to puncture site. Port site negative for redness, edema or tenderness. Patient tolerated procedure well. documented in this encounterAdena [facility] Medical Center04-17-2024 Miscellaneous Notes* Telephone Encounter - [...] ok to talk to documented in this encounterAdena Regional Medical Center04-05-2024 Miscellaneous Notes* Telephone Encounter - Nataly Cummins, RN - 02/19/2024 12:29 PM EDT Pt called and is notified of providers results and instructions. Pt voices understanding. Nataly Cummins, RN * Telephone Encounter - Ruba Trujillo APRN.CNP - 02/19/2024 11:31 AM EDT Can please let patient know that I received her lab results. Everything looks fairly stable. Her kidney function is down just a little bit, but looks stable compared to when she had it last checked in May at [facility]. Please make sure she stays well hydrated. Ruba Trujillo APRN.MARLENA documented in this encounterAdena [facility] Medical Center04-03-2024 Instructions* Patient Instructions* Ruba Trujillo APRN.CNP - 02/17/2024 2:11 PM EDT Get labs. Schedule CT scan. Continue to prop feet. Watch sodium. Try compression/support stockings. documented in this encounterAdena [facility] Medical Center04-03-2024 History of Present illness Narrative* [...] as needed for worsening/no improvement. Ruba Trujillo APRN.SCREENING TECHNICIAN documented in this encounterJulian Ville [address]-02-2024 Miscellaneous Notes* Telephone Encounter - Adriana Chowdary RN - 02/16/2024 11:57 AM EDT See other encounter triage 02/16/2204. Adriana Chowdary RN documented in this encounterAdena [facility] Medical Center04-02-2024 Miscellaneous Notes* Telephone Encounter - [...] other symptoms Protocols used: Leg Swelling and Kozig-GIWFU-IK * Telephone Encounter - Eyad Umaña LPN - 02/16/2024 10:53 AM EDT Pt scheduled 02/16 "Same Day Visit, Legs & Feet Swelling". Please triage and make 40min appt d/t pt has not been seen in a year. documented in this encounterAdena [facility] Medical Center04-20-2023 Miscellaneous Notes* Telephone Encounter - Ileana Ramos LPN - 03/05/2023 11:52 AM EDT Patient notified and verbalizes understanding. * Telephone Encounter - Harjinder Braswell MD - 03/05/2023 11:47 AM EDT [...] can send in another antibiotic prescription to [facility]? Please review and advise, Louann Miranda RN documented in this encounterAdena [facility] Medical Center04-14-2023 Miscellaneous Notes* Telephone Encounter - Claudia Valdes - 02/27/2023 1:14 PM EDT Patient informed and verbalized understanding. Claudia Valdes * Telephone Encounter - Harjinder Braswell MD - 02/27/2023 12:56 PM EDT [...] medication for cholesterol. Please send rx to [facility]. Eyad Umaña LPN * Telephone Encounter - Harjinedr Braswell MD - 02/27/2023 8:35 AM EDT Urine shows definite uti. Is slightly resistent. Does she feel the keflex is helping her symtpoms? Labs are ok, except cholesterol is up. Is she interested in trying any medication for that? documented in this encounterAdena Regional Medical Center04-12-2023 History of Present illness Narrative* Harjinder Braswell MD - 02/25/2023 1:12 PM EDT [...] Eyes:Last year had B/L cataract surgery with [facility]. Not sure of exact date. Thinks shehad dilated eye exam at that time. ONC: [facility], last visit was almost one year- yearly [...] N39.41 - OXYBUTYNIN CHLORIDE 5 MG TABLET Harjinder Braswell RTO in annually and prn. documented in this encounterAdena [facility] Medical Center07-20-2016 History of Past illness Narrative* [...] of this encounter (statuses as of 02/26/2023) [facility] of Past illness Narrative* Problem Noted Date Resolved Date Hyperglycemia 06/04/2016 12/27/2016 Metabolic syndrome 06/04/2016 08/02/2018 Polyp of colon 03/27/2016 12/27/2016 Personal history of colonic polyps 02/27/2016 12/27/2016 Abnormal ultrasound of breast 09/14/2015 Medicare annual wellness visit, initial 06/29/20 14 12/27/2016 Occult blood positive stool 10/12/201212/17 Plantar fasciitis 09/27/2010 12/27/2016 Hepatomegaly 08/26/2010 12/27/2016 Bite from cat 01/23/2010 12/27/2016 Overview: Improving with use of oral antibiotics. Edema 06/29/2009 01/23/2010 Obstructive chronic bronchitis with exacerbation 01/27/2009 12/27/2016 documented as of this encounter (statuses as of 02/28/2023) [facility] illness Narrative* [...] of this encounter (statuses as of 03/06/2023) [facility] of Past illness Narrative* [...] of this encounter (statuses as of 02/16/2024) [facility] of Past illness Narrative* [...] of this encounter (statuses as of 02/16/2024) [facility] of [facility] illness Narrative* [...] of this encounter (statuses as of 02/18/2024) [facility] of [facility] illness Narrative* [...] of this encounter (statuses as of 03/03/2024) [facility] illness Narrative* [...] of this encounter (statuses as of 03/04/2024) [facility] of [facility] illness Narrative* [...] of this encounter (statuses as of 03/04/2024) [facility] of Past illness Narrative* [...] of this encounter (statuses as of 03/04/2024) [facility] of [facility] illness Narrative* [...] of this encounter (statuses as of 02/19/2024) [facility] note* Diagnosis Onset Date Resolution Status Anemia acute Chemotherapy follow-up examination acute Chemotherapy management, encounter for acute Constipation acute Dysuria acute Educational circumstance acu te Epigastric pain acute Hypokalemia acute Hypomagnesemia acute Pleural effusion acute Pneumonitis acute Non-small cell carcinoma of right lung, stage 4 chronic Recurrent pleural effusion on right chronic Rash resolved [facility] Work Phone: Evaluation note* Diagnosis Essential hypertension- [...] vascular disease, unspecified [facility] Diagnosis Urinary tract infection with hematuria, site unspecified- Primary Mixed hyperlipidemia documented in this encounter [facility] note* Diagnosis Swelling- Primary Edema Intra-abdominal and pelvic swelling, mass and lump, unspecified site Swelling abdomen Abdominal or pelvic swelling, mass or lump, unspecified site Type 2 diabetes mellitus without complication, without long-term current use of insulin (HCC) Hypothyroidism, unspecified type [facility]* Diagnosis Malignant neoplasm of unspecified part of right bronchus or lung (HCC)- Primary [facility]* Diagnosis Intra-abdominal and pelvic swelling, mass and lump, unspecified site documented in this encounter [facility] note* Diagnosis Hot flashes- Primary Symptomatic menopausal [...] Pain in limb documented in this encounter [facility] note* Diagnosis Hot flashes- Primary Symptomatic menopausal or female climacteric states History of lung cancer Personal history of malignant neoplasm of bronchus and lung Hypothyroidism, unspecified type Abnormal thyroid function test- Primary Nonspecific abnormal results of thyroid function study Abnormal urine findings Other nonspecific finding on examination of urine documented in this encounter [facility]* Diagnosis Hot flashes- Primary Symptomatic menopausal or female climacteric states History of lung cancer Personal history of malignant neoplasm of bronchus and lung Hypothyroidism, unspecified type Weight loss Loss of weight Intra-abdominal and pelvic swelling, mass and lump, unspecified site Adenocarcinoma of right lung (HCC) documented in this encounter [facility]* Diagnosis Hot flashes- Primary Symptomatic menopausal or female climacteric states History of lung cancer Personal history of malignant neoplasm of bronchus and lung Hypothyroidism, unspecified type Neoplasm related pain (acute) (chronic)- Primary Adenocarcinoma of right lung (HCC) documented in this encounter [facility]* Diagnosis Hot flashes- Primary Symptomatic menopausal or female climacteric states History of lung cancer Personal history of malignant neoplasm of bronchus and lung Hypothyroidism, unspecified type Primary osteoarthritis of both hands- Primary Weight loss Loss of weight Malignant neoplasm of unspecified part of right bronchus or lung (HCC) Abnormal urine findings Other nonspecific finding on examination of urine [facility] Hot flashes- Primary Symptomatic menopausal or female climacteric states History of lung cancer Personal history of malignant neoplasm of bronchus and lung Hypothyroidism, unspecified type Acute cystitis without hematuria- Primary Acute cystitis [facility] Diagnosis Hot flashes- Primary Symptomatic menopausal [...] metabolism Hypokalemia Hypopotassemia [facility] Diagnosis Hot flashes- Primary Symptomatic menopausal or female climacteric states History of lung cancer Personal history of malignant neoplasm of bronchus and lung Hypothyroidism, unspecified type Bilateral hand pain Pain in limb documented in this encounter [facility]* Diagnosis Hot flashes- Primary Symptomatic menopausal or female climacteric states History of lung cancer Personal history of malignant neoplasm of bronchus and lung Hypothyroidism, unspecified type Primary osteoarthritis, right hand Primary osteoarthritis of left hand Primary localized osteoarthrosis, hand documented in this encounter [facility] CenterHospital Discharge instructionsWooAdams County [facility] Work Phone: Hospital Discharge instructions Additional Instructions The CT of the chest that was performed today did not show any evidence of a pulmonary vein clot as seen on her previous CT. There were no acute changes from prior. Follow-up with your primary care provider tomorrow and let them know that your CT did not show evidence of clot. [facility] Work Phone: Reason for referral (narrative)No reason for referral information availableThompson Memorial Medical [facility] Work Phone: Reason for visit Narrative* MRI/CT (Routine) - Closed Specialty Diagnoses / Procedures Referred By Vincent morgan Referred To Contact CT IMAGING Diagnoses Weight loss Intra-abdominal and pelvic swelling, mass and lump, unspecified site Adenocarcinoma of right lung (HCC) Procedures CT CHEST W IVCON DIAGNOSTIC COMPUTED TOMOGRAPHY THORAX W/CONTRAST Ruba Trujillo, TRAVEL AGENCY MANAGER.SCREENING TECHNICIAN [address] [place] [address] Phone: tel: fax: [place] [phone] Referral ID Status Reason Start Date Expiration Date V isits Requested Visits Authorized [id number] Closed Auto-Generate d Referral 04/28/2025 06/27/2025 1 1 [facility] CenterReason [facility] Narrative* Diagnostic Procedure Only (Routine) - Closed Specialty Diagnoses / Procedures Referred By Vincent morgan Referred To Contact XR IMAGING Diagnoses Bilateral hand pain Procedures XR HAND/WRIST SURVEY ARTHRITIS 1V PA BILATERAL JOINT SURVEY SINGLE VIEW 2 OR MORE JOINTS Reva Wasserman, TRAVEL AGENCY MANAGER.SCREENING TECHNICIAN [address] [place] [address] Phone: tel: fax: [place] [phone] Referral ID Status Reason Start Date Expiration Date V isits Requested Visits Authorized [id number] Closed Auto-Generate d Referral 06/13/2025 07/13/2026 1 1 [facility] Summary Purpose Family History No Family History Records Found Relationship Condition Age at Onset Recorded Date/T kathia father Heart problem Unknown mother Malignant neoplasm of lung Unknown sister Malignant neoplasm of lung Unknown Advance Directives No Advanced Directives Records Found Advance Directive Response Recorded Date/ Time Advance Directives on File Yes 2018 3:05pm Advance Directives Yes October 3:05pm Living Will Yes November 23 11:12pm Power of Publications Designer Yes November 23 021 11:12pm Documents on File Type Date Recorded Patient Manager Nursing Home Expl anation Advance Directive(s) 12/15/2012 9:33 AM Documents on File Type Date Recorded Patient Manager Nursing Home Expl anation Advance Directive(s) 12/15/2012 9:33 AM Advance Directive Response Recorded Date/ Time Advance Directives on File Yes 2018 3:05pm Advance Directives Yes October 3:05pm Living Will No March 08, 2024 5:53pm Power of Publications Designer No March 08 5:53pm Advance Directive Response Recorded Date/ Time Advance Directives on File Yes 2018 3:05pm Living Will Yes November 07 3:05pm Do you have a Healthcare Power of Publications Designer? Yes November 07, 2019 3:05pm Advance Directives Yes October 3:05pm Hospital Course Note Send Summary: Discharge Summ morteza Providers: Provider RoleProvider Name AttendingCasimiro Yusuf Note Recipients: HARJINDER BRASWELL - [phone] [] EARNEST HERRERA Joseph, MD - [id number] Discharge: Summary: Admission Date: .12-Nov-2018 22:58:00 Discharge [...] 2 subfascial drains Surgeon: Huber Tamayo Resident/Fellow/Other Airborne Operations Superintendent: Grazyna Costa Anesthesia: GETA Estimated Blood Loss [...] 2 subfascial drains Surgeon: Huber Tamayo Resident/Fellow/Other Airborne Operations Superintendent: Grazyna Costa Anesthesia: GETA Estimated Blood Loss [...] 30, 2025 1:45pm Chemotherapy management, encounter for J jd 2024 1:45pm Constipation May 30, 2025 1:45 [...] Referral Specialty Diagnoses / Procedures Referred By Contiwll t Referred To Contact CT IMAGING Diagnoses Intra-abdominal and pelvic swelling, mass and lump, unspecified site Procedures CT ABD/PEL W IVCON CT ABD & PELVIS W/CONTRAST Ruba Trujillo, TRAVEL AGENCY MANAGER.SCREENING TECHNICIAN [address] [place] [address] Ct Imaging [facility] Referral ID Status Reason Start Date Expiration Date Visits Requested Visits Authorized [id number] Pending Review Auto-Generat ed Referral 02/17/2024 03/18/2025 1 1 Additional Source Comments INFORMATION SOURCE (unrecogn ized section and content) DATE CREATED AUTHOR 12/21/2018 [facility] DATE CREATED AUTHOR AUTHOR'S ORGANIZ ATION 04/17/2019 [facility] DATE CREATED AUTHOR AUTHOR'S ORGANIZ ATION 11/27/2019 [facility] DATE CREATED AUTHOR AUTHOR'S ORGANIZ ATION 01/03/2020 [facility] DATE CREATED AUTHOR AUTHOR'S ORGANIZ ATION 08/29/2025 [facility] DATE CREATED AUTHOR AUTHOR'S ORGANIZ ATION 09/28/2025 [facility] Goals (unrecognized section and content) Goals [...] or prosecute any alcohol or drug abuse patient.[facility] CenterIn the event this information is protected by the Federal Confidentiality of Alcohol and Drug Abuse Patient Records regulations: The Federal rules restrict any use of the information to criminally investigate or prosecute any alcohol or drug abuse patient.[facility] CenterIn the event this information is protected by the Federal Confidentiality of Alcohol and Drug Abuse Patient Records regulations: The Federal rules restrict any use of the information to criminally investigate or prosecute any alcohol or drug abuse patient.[facility] CenterIn the event this information is protected by the Federal Confidentiality of Alcohol and Drug Abuse Patient Records regulations: The Federal rules restrict any use of the information to criminally investigate or prosecute any alcohol or drug abuse patient.[facility] CenterIn the event this information is protected by the Federal Confidentiality of Alcohol and Drug Abuse Patient Records regulations: The Federal rules restrict any use of the information to criminally investigate or prosecute any alcohol or drug abuse patient.[facility] CenterIn the event this information is protected by the Federal Confidentiality of Alcohol and Drug Abuse Patient Records regulations: The Federal rules restrict any use of the information to criminally investigate or prosecute any alcohol or drug abuse patient.[facility] CenterIn the event this information is protected by the Federal Confidentiality of Alcohol and Drug Abuse Patient Records regulations: The Federal rules restrict any use of the information to criminally investigate or prosecute any alcohol or drug abuse patient.[facility] CenterIn the event this information is protected by the Federal Confidentiality of Alcohol and Drug Abuse Patient Records regulations: The Federal rules restrict any use of the information to criminally investigate or prosecute any alcohol or drug abuse patient.[facility] CenterIn the event this information is protected by the Federal Confidentiality of Alcohol and Drug Abuse Patient Records regulations: The Federal rules restrict any use of the information to criminally investigate or prosecute any alcohol or drug abuse patient.[facility] CenterIn the event this information is protected by the Federal Confidentiality of Alcohol and Drug Abuse Patient Records regulations: The Federal rules restrict any use of the information to criminally investigate or prosecute any alcohol or drug abuse patient.[facility] CenterIn the event this information is protected by the Federal Confidentiality of Alcohol and Drug Abuse Patient Records regulations: The Federal rules restrict any use of the information to criminally investigate or prosecute any alcohol or drug abuse patient.[facility] CenterIn the event this information is protected by the Federal Confidentiality of Alcohol and Drug Abuse Patient Records regulations: The Federal rules restrict any use of the information to criminally investigate or prosecute any alcohol or drug abuse patient.[facility] CenterIn the event this information is protected by the Federal Confidentiality of Alcohol and Drug Abuse Patient Records regulations: The Federal rules restrict any use of the information to criminally investigate or prosecute any alcohol or drug abuse patient.[facility] CenterIn the event this information is protected by the Federal Confidentiality of Alcohol and Drug Abuse Patient Records regulations: The Federal rules restrict any use of the information to criminally investigate or prosecute any alcohol or drug abuse patient.[facility] CenterIn the event this information is protected by the Federal Confidentiality of Alcohol and Drug Abuse Patient Records regulations: The Federal rules restrict any use of the information to criminally investigate or prosecute any alcohol or drug abuse patient.[facility] CenterIn the event this information is protected by the Federal Confidentiality of Alcohol and Drug Abuse Patient Records regulations: The Federal rules restrict any use of the information to criminally investigate or prosecute any alcohol or drug abuse patient.[facility] CenterIn the event this information is protected by the Federal Confidentiality of Alcohol and Drug Abuse Patient Records regulations: The Federal rules restrict any use of the information to criminally investigate or prosecute any alcohol or drug abuse patient.[facility] CenterIn the event this information is protected by the Federal Confidentiality of Alcohol and Drug Abuse Patient Records regulations: The Federal rules restrict any use of the information to criminally investigate or prosecute any alcohol or drug abuse patient.[facility] CenterIn the event this information is protected by the Federal Confidentiality of Alcohol and Drug Abuse Patient Records regulations: The Federal rules restrict any use of the information to criminally investigate or prosecute any alcohol or drug abuse patient.[facility] CenterIn the event this information is protected by the Federal Confidentiality of Alcohol and Drug Abuse Patient Records regulations: The Federal rules restrict any use of the information to criminally investigate or prosecute any alcohol or drug abuse patient.[facility] CenterIn the event this information is protected by the Federal Confidentiality of Alcohol and Drug Abuse Patient Records regulations: The Federal rules restrict any use of the information to criminally investigate or prosecute any alcohol or drug abuse patient.[facility] CenterIn the event this information is protected by the Federal Confidentiality of Alcohol and Drug Abuse Patient Records regulations: The Federal rules restrict any use of the information to criminally investigate or prosecute any alcohol or drug abuse patient.[facility] CenterIn the event this information is protected by the Federal Confidentiality of Alcohol and Drug Abuse Patient Records regulations: The Federal rules restrict any use of the information to criminally investigate or prosecute any alcohol or drug abuse patient.[facility] CenterIn the event this information is protected by the Federal Confidentiality of Alcohol and Drug Abuse Patient Records regulations: The Federal rules restrict any use of the information to criminally investigate or prosecute any alcohol or drug abuse patient.[facility] CenterIn the event this information is protected by the Federal Confidentiality of Alcohol and Drug Abuse Patient Records regulations: The Federal rules restrict any use of the information to criminally investigate or prosecute any alcohol or drug abuse patient.[facility] CenterIn the event this information is protected by the Federal Confidentiality of Alcohol and Drug Abuse Patient Records regulations: The Federal rules restrict any use of the information to criminally investigate or prosecute any alcohol or drug abuse patient.[facility] CenterIn the event this information is protected by the Federal Confidentiality of Alcohol and Drug Abuse Patient Records regulations: The Federal rules restrict any use of the information to criminally investigate or prosecute any alcohol or drug abuse patient.[facility] Reason for Visit (unrecogniz ed [...] CT Specialty Diagnoses / Procedures Referred By Vincent morgan Referred To Contact CT IMAGING Diagnoses Intra-abdominal and pelvic swelling, mass and lump, unspecified site Procedures CT ABD/PEL W IVCON CT ABD & PELVIS W/CONTRAST Ruba Trujillo, TRAVEL AGENCY MANAGER.SCREENING TECHNICIAN [address] [place] [address] Ct Imaging [facility]95 Referral ID Status Reason Start Date Expiration Date V isits Requested Visits Authorized [id number] Closed Auto-Generate d Referral 02/19/2024 04/19/2024 2 2 Specialty Diagnoses / Procedures Referred By Vincent morgan Referred To Contact CT IMAGING Diagnoses Intra-abdominal and pelvic swelling, mass and lump, unspecified site Procedures CT ABD/PEL W IVCON CT ABD & PELVIS W/CONTRAST Ruba Trujillo, TRAVEL AGENCY MANAGER.SCREENING TECHNICIAN [address] [place] [address] Ct Imaging [facility]95 Reason Comments Recheck Follow up Reason Onset Date Comments Results 04/26/2025 Reason Comments Recheck 1 month follow up Reason Onset Date Comments Results 05/26/2025 Reason Comments Arthritis Follow up Reason Comments Recheck 4 week follow up Reason Comments Patient Update Dr. Gates's note 05/30 Care Teams (unrecognized sec tion and content) Supply Coordinator Relationship Specialty Start Date End Date Harjinder Braswell MD [address] [place], [place] [id number] PCP - General Family Medicine 12/27/16 Arthur Gates MD [address] [place] [address] Oncology 12/24/18 Raji Guerrero Radiation Oncology 12/24/18 Supply Coordinator Relationship Specialty Start Date End Date Harjinder Braswell MD [address] [facility] [place], [place] [phone] PCP - General Family Medicine 12/27/16 Arthur Gates MD [address] [place] [address] Oncology 12/24/18 Raji Guerrero Radiation Oncology 12/24/18 Supply Coordinator Relationship Specialty Start Date End Date Harjinder Braswell MD [address] [facility] [place] [id number] PCP - General Family Medicine 12/27/16 Arthur Gates MD [address] [place] [address] Oncology 12/24/18 Raji Guerrero Radiation Oncology 12/24/18 Team Status: Active Member Role Status Dates Dr. Harjinder Braswell MD Family Provider Active Dr. Harjinder Braswell MD Primary Care Provider Active Team Status: Active Member Role Status Dates Dr. Harjinder Braswell MD Primary Care Provi sis, Family Provider, Referring Provider Active Dr. Cornell Guerrero DO Other Provider Active Dr. Arthur Gates MD Attending Provider Active Dr. Arthur Gates MD Active Team Status: Inactive Member Role Status Dates Dr. Harjinder Braswell MD Primary Care Provider Active Dr. Arthur Gates MD Attending Provider, Referring Pro vider Active Supply Coordinator Relationship Specialty Start Date End Date Harjinder Braswell MD [address] [place] [id number] PCP - General Family Medicine 12/27/16 Arthur Gates MD [address] [place] [address] Oncology 12/24/18 Raji Guerrero Radiation Oncology 12/24/18 Supply Coordinator Relationship Specialty Start Date End Date Harjinder Braswell MD [address] [facility] [place] [address] PCP - General Family Medicine 12/27/16 Arthur Gates MD [address] [place] [address] Oncology 12/24/18 Raji Guerrero Radiation Oncology 12/24/18 Supply Coordinator Relationship Specialty Start Date End Date Harjinder Braswell MD [address] [facility] [place], [place] [address] [phone] PCP - General Family Medicine 12/27/16 Arthur Gates MD [address] [place] [address] Oncology 12/24/18 Raji Guerrero Radiation Oncology 12/24/18 Supply Coordinator Relationship Specialty Start Date End Date Harjinder Braswell MD [address] [place], [place] [phone] PCP - General Family Medicine 12/27/16 Arthur Gates MD [address] [place] [address] Oncology 12/24/18 Raji Guerrero Radiation Oncology 12/24/18 Supply Coordinator Relationship Specialty Start Date End Date Harjinder Braswell MD [address], [place] [phone] PCP - General Family Medicine 12/27/16 Arthur Gates MD [address] [place] [address] Oncology 12/24/18 Raji Guerrero Radiation Oncology 12/24/18 Supply Coordinator Relationship Specialty Start Date End Date Harjinder Braswell MD [address] [facility] [place], [place] [address] PCP - General Family Medicine 12/27/16 Arthur Gates MD [address] [place] [address] Oncology 12/24/18 Raji Guerrero Radiation Oncology 12/24/18 Supply Coordinator Relationship Specialty Start Date End Date Harjinder Braswell MD [address], [place] [address] PCP - General Family Medicine 12/27/16 Arthur Gates MD [address] [place] [address] Oncology 12/24/18 Raji Guerrero Radiation Oncology 12/24/18 Team Status: Inactive Member Role Status Dates Dr. Harjinder Braswell MD Primary Care Provider Active Max Lau MD Emergency Provider Active Supply Coordinator Relationship Specialty Start Date End Date Harjinder Braswell MD [address] [facility] [place], [place] [phone] PCP - General Family Medicine 12/27/16 Arthur Gates MD [address] [place] [address] Oncology 12/24/18 Ruba Trujillo, TRAVEL AGENCY MANAGER.SCREENING TECHNICIAN [address] [place] 129973 [phone] [facility] 10/24/24 Reva Wasserman, TRAVEL AGENCY MANAGER.SCREENING TECHNICIAN [address] [place] [place] 4967[address] [phone] [facility] 10/24/24 Raji Guerrero Radiation Oncology 12/24/18 Supply Coordinator Relationship Specialty Start Date End Date Harjinder Braswell MD [address] [place] 77[address] PCP - General Family Medicine 12/27/16 Arthur Gates MD [address] [place] [address] Oncology 12/24/18 Ruba Trujillo, TRAVEL AGENCY MANAGER.SCREENING TECHNICIAN [address] [place] [address] [facility] 10/24/24 Reva Wasserman, TRAVEL AGENCY MANAGER.SCREENING TECHNICIAN [address] [place] [address] [facility] 10/24/24 Raji Guerrero Radiation Oncology 12/24/18 Supply Coordinator Relationship Specialty Start Date End Date Harjinder Braswell MD [address] [place] [address] PCP - General Family Medicine 12/27/16 Arthur Gates MD [address] [place] [address] Oncology 12/24/18 Ruba Trujillo, TRAVEL AGENCY MANAGER.SCREENING TECHNICIAN [address] [place] [address] Web Application Developer Family [facility] 10/24/24 Reva Wasserman, TRAVEL AGENCY MANAGER.SCREENING TECHNICIAN [address] [place] [phone] Web Application Developer Family [facility] 10/24/24 Raji Guerrero Radiation Oncology 12/24/18 Supply Coordinator Relationship Specialty Start Date End Date Harjinder Braswell MD [address] [place] [address] PCP - General Family Medicine 12/27/16 Arthur Gates MD [address] [place] [address] Oncology 12/24/18 Ruba Trujillo, TRAVEL AGENCY MANAGER.SCREENING TECHNICIAN [address] [place] [address] [facility] 10/24/24 Reva Wasserman TRAVEL AGENCY MANAGER.SCREENING TECHNICIAN [address] [phone] Web Application Developer Family [facility] 10/24/24 Raji Guerrero Radiation Oncology 12/24/18 Supply Coordinator Relationship Specialty Start Date End Date Harjinder Braswell MD [address] [facility] [place] [address] PCP - General Family Medicine 12/27/16 Arthur Gates MD [address] [place] [address] Oncology 12/24/18 Ruba Trujillo, TRAVEL AGENCY MANAGER.SCREENING TECHNICIAN [address] [place] [address] Web Application Developer Family Medicine 10/24/24 Reva Wasserman TRAVEL AGENCY MANAGER.SCREENING TECHNICIAN [address] [place] [address] Web Application Developer Family Medicine 10/24/24 Raji Guerrero Radiation Oncology 12/24/18 Supply Coordinator Relationship Specialty Start Date End Date Harjinder Braswell MD [address] [place] [address] PCP - General Family Medicine 12/27/16 Arthur Gates MD [address] [place] [address] Oncology 12/24/18 Ruba Trujillo, TRAVEL AGENCY MANAGER.SCREENING TECHNICIAN [address] [place] [address] Web Application Developer Family Medicine 10/24/24 Reva Wasserman TRAVEL AGENCY MANAGER.SCREENING TECHNICIAN [address] [place] [address] Web Application Developer Family Medicine 10/24/24 Raji Guerrero Radiation Oncology 12/24/18 Supply Coordinator Relationship Specialty Start Date End Date Harjinder Braswell MD [address] [facility] [place], [place] [address] PCP - General Family Medicine 12/27/16 Arthur Gates MD [address] [place] [place] [address] Oncology 12/24/18 Ruba Trujillo APRN.SCREENING TECHNICIAN [address] [facility] [place], [place] [address] Web Application Developer Family [facility] 10/24/24 Reva Wasserman APRN.SCREENING TECHNICIAN [address] [facility] [place], [place] [address] Web Application Developer [facility] 10/24/24 Raji Guerrero Radiation Oncology 12/24/18 Team Status: Active Member Role/Relationship Status Dates Dr. Harjinder Braswell MD Primary Care Provider Active Team Status: Inactive Member Role/Relationship Status Dates Dr. Harjinder Braswell MD Primary Care Provider Active Start: May 30, 2025 End: May 30, 2025 Dr. Harjinder Braswell MD Referring Provider Active Start: May 30, 2025 End: May 30, 2025 Dr. Arthur Gates MD Attending Provider Active S tart: May 30, 2025 End: May 30, 2025 Team Status: Active Member Role/Relationship Status Dates Dr. Harjinder Braswell MD Primary Care Provider Active Start: May 30, 2025 Dr. Harjinder Braswell MD Family Provider Active Sta rt: May 30, 2025 Dr. Harjinder Braswell MD Referring Provider Active Start: May 30, 2025 Dr. Cornell Guerrero DO Other Provider Active Sta rt: May 30, 2025 Dr. Arthur Gates MD Attending Provider Active S tart: May 30, 2025 Supply Coordinator Relationship Specialty Start Date End Date Harjinder Braswell MD [address] [facility] [place], [place] [phone] PCP - General Family Medicine 12/27/16 Arthur Gates MD [address] [place] [address] Oncology 12/24/18 Ruba Trujillo, TRAVEL AGENCY MANAGER.SCREENING TECHNICIAN [address] [facility] [place] 730212 [phone] Web Application Developer Family Medicine 10/24/24 Reav Wasserman TRAVEL AGENCY MANAGER.SCREENING TECHNICIAN [address] [place] [phone] Web Application Developer Family Medicine 10/24/24 Raji Guerrero Radiation Oncology 12/24/18 Supply Coordinator Relationship Specialty Start Date End Date Harjinder Braswell MD [address] [place] 74[address]71 PCP - General Family Medicine 12/27/16 Arthur Gates MD [address] [place] [address] Oncology 12/24/18 Ruba Trujillo, TRAVEL AGENCY MANAGER.SCREENING TECHNICIAN [address] [place] [address] Web Application Developer Family Medicine 10/24/24 Reva Wasserman TRAVEL AGENCY MANAGER.SCREENING TECHNICIAN [address] [place] [phone] Web Application Developer Family Medicine 10/24/24 Raji Guerrero Radiation Oncology 12/24/18 Supply Coordinator Relationship Specialty Start Date End Date Harjinder Braswell MD [address] [facility] [place] [address] PCP - General Family Medicine 12/27/16 Arthur Gates MD [address] [place] [address] Oncology 12/24/18 Ruba Trujillo, ANTELMO.SCREENING TECHNICIAN [address] [place] [address] Web Application Developer Family Medicine 10/24/24 Reva Wasserman TRAVEL AGENCY MANAGER.SCREENING TECHNICIAN [address] [place] [address] Web Application Developer Family Medicine 10/24/24 Raji Guerrero Radiation Oncology 12/24/18 Supply Coordinator Relationship Specialty Start Date End Date Harjinder Braswell MD [address] [place] [address] PCP - General Family Medicine 12/27/16 Arthur Gates MD [address] [place] [address] Oncology 12/24/18 Ruba Trujillo, TRAVEL AGENCY MANAGER.SCREENING TECHNICIAN [address] [place] [address] Web Application Developer Family Medicine 10/24/24 Reva Wasserman TRAVEL AGENCY MANAGER.SCREENING TECHNICIAN [address] [place] [address] Web Application Developer Family Medicine 10/24/24 Raji Guerrero Radiation Oncology 12/24/18 Team Status: Inactive Member Role/Relationship Status Dates Dr. Harjinder Braswell MD Primary Care Provider Active Start: May 16, 2025 Dr. Yolanda Ash MD Attending Provider Active Start: May 16, 2025 Team Status: Inactive Member Role/Relationship Status Dates Dr. Harjinder Braswell MD Primary Care Provider Active Start: May 30, 2025 End: May 30, 2025 Dr. Harjinder Braswell MD Referring Provider Active Start: May 30, 2025 End: May 30, 2025 Dr. Arthur Gates MD Attending Provider Active S tart: May 30, 2025 End: May 30, 2025 Team Status: Active Member Role/Relationship Status Dates Dr. Harjinder Braswell MD Primary Care Provider Active Start: May 30, 2025 Dr. Harjinder Braswell MD Family Provider Active Sta rt: May 30, 2025 Dr. Harjinder Braswell MD Referring Provider Active Start: May 30, 2025 Dr. Cornell Guerrero DO Other Provider Active Sta rt: May 30, 2025 Dr. Arthur Gates MD Attending Provider Active S tart: May 30, 2025 Team Status: Inactive Member Role/Relationship Status Dates Dr. Harjinder Braswell MD Primary Care Provider Active Start: July 04, 2025 End: July 04, 2025 Dr. Harjinder Braswell MD Referring Provider Active Start: July 04, 2025 End: July 04, 2025 Dr. Yolanda Ash MD Attending Provider Active Start: July 04, 2025 End: July 04, 2025 Supply Coordinator Relationship Specialty Start Date End Date Harjinder Braswell MD [address] [facility] [place] [phone] PCP - General Family Medicine 12/27/16 Arthur Gates MD [address] [place] [address] Oncology 12/24/18 Ruba Trujillo APRN.CNP [address] [facility] [place] [address] Web Application [facility] 10/24/24 Reva Wasserman TRAVEL AGENCY MANAGER.SCREENING TECHNICIAN [address] [facility] [place] [address] [facility] 10/24/24 Raji Guerrero Radiation Oncology 12/24/18 Supply Coordinator Relationship Specialty Start Date End Date Harjinder Braswell MD [address] [facility] [place] [phone] PCP - General Family Medicine 12/27/16 Arthur Gates MD [address] [place] [address] Oncology 12/24/18 Ruba Trujillo APRN.SCREENING TECHNICIAN [address] [facility] [place], [place] [address] [facility] 10/24/24 Reva Wasserman TRAVEL AGENCY MANAGER.SCREENING TECHNICIAN [address] [facility] [place] [address] [facility] 10/24/24 Raji Guerrero Radiation Oncology 12/24/18 FOR [...] BE BASED ON THE PRIMARY CLINICAL RECORDS. [employer] [facility]. provides no warranty or guarantee of the accuracy or completeness of information in this document.
[2025-10-01 23:57] LABS: Magnesium 1.8 mg/dL (1.5-2.2)
[2025-10-02] VITALS (15 sets, daily range): BP systolic 102–134; BP diastolic 47–77; PULSE 70–100; RESP 14–20; TEMP 36.4–36.8; O2SAT 85–100; BMI 32.8
--- NOTE | 2025-10-02 00:17 | MRI_ITS ---
PROCEDURE: BRAIN W/WO CONTRAST 10/02/2025 REASON FOR EXAM: FACIAL DROOP/TIA TECHNIQUE: Procedure Code: [id number] Modality: MR Procedure: BRAIN W/WO CONTRAST Multiplanar and multisequence images were obtained. CONTRAST: Clariscan VOLUME: 17 mL COMPARISON: 01-Oct-2025 CT FINDINGS: No acute or hyperacute infarcts. No intracerebral or extra-axial acute hemorrhage. No obvious enhancing masses. Bilateral cerebral periventricular and subcortical as well as basal ganglia and thalamic foci and patches of high T2/FLAIR WI signal. Normal MRI signal of the cerebellar hemispheres and brain stem. Dilated ventricular system, cortical sulci and extra-axial CSF spaces. No shift of midline structures. Minimal right mastoid effusion is noted. Normal MRI appearance of the petrous temporal bones cerebellopontine angles with no definite masses. Normal MRI appearance of orbital structures, both globes, optic nerves, optic chiasm, optic tracts and optic radiations. Scanned paranasal sinuses are unremarkable. MRI/Brain W/WO Contrast IMPRESSION: No acute infarcts. No intracerebral or extra-axial hematomas. No enhancing mass es. Bilateral cerebral microvascular ischemic changes with mild brain involutional changes. Reading Location[facility]
[2025-10-02 04:06] LABS: Hematocrit 43.3 % (37-47); Hemoglobin 12.9 g/dL (12.0-15.0); Immature Granulocytes Count 0.040 X10^3/uL (0.0-0.0); Mean Corp Hgb Conc 29.8 g/dL (32-36); Mean Corpuscular Volume 98.9 fL (81-99); Mean Platelet Vol. 10.7 fl (6.2-12.0); NRBC Flagged by Analyzer 0 % (0-5); POSITIVE DIFFERENTIAL YES; Platelet Count 145 K/mm3 (150-450); RBC Distribution Width CV 14.5 % (11.6-14.6); RBC Distribution Width SD 52.6 fl (35.1-43.9); Red Blood Count 4.38 M/mm3 (4.2-5.4); White Blood Count 4.9 K/mm3 (4.4-11.0)
[2025-10-02 06:10] LABS: Cholesterol 169 mg/dL (<=200); Low Density Lipoprotein Calc. 93 mg/dL; Triglycerides 112 mg/dL; Very Low Density Lipoprotein 22 mg/dL (5-40); cholesterol:hdl ratio screen 3.01
[2025-10-02 06:19] LABS: AST(SGOT) 16 U/L (<=31); Alanine Aminotransfer ALT/SGPT < 5 U/L (<=34); Albumin, Serum 3.3 g/dL (3.4-4.8); Alkaline Phosphatase 26 U/L (35-104); Anion Gap 6 (5-15); BUN 9 mg/dL (4-19); BUN/Creat Ratio 16.7 RATIO (10-20); Calcium,Total 9.4 mg/dL (7.6-11.0); Carbon Dioxide 37.6 mmol/L (21.0-32.0); Chloride 97 mmol/L (98-108); Estimated Creatinine Clearance 55.70 ml/min (50-250); Globulin 3.1 g/dL (2.2-4.2); Glucose 105 mg/dL (70-99); Potassium 3.6 mmol/L (3.3-5.1)
--- NOTE | 2025-10-02 17:00 | PCM.PN.HOSP ---
Reason for Visit Chief Complaint: Dyspnea, fatigue, malaise, increased BL LE edema, transient L sided facial droop. Subjective Subjective Patient evaluated with several family members at bedside, reportedly after she is discharged she stayed in bed without moving for most 24 hours, they brought her in because she was confused, there may have been some droopy eyelid but that was their main concern. After discussing further they report she has been having significant difficulties due to pain in her joints over the past several months that is worsening, had significant relief with prednisone and is scheduled to see a laborer cement gun placing but that was not until January due to how far out the office of scheduling new patients so she has had very difficult time getting relief. She reports she feels a little bit better than she did when she came in but still having significant pain, swelling in her legs though less so than last time she was admitted Objective Data Objective Data Vital Signs: Vital Signs Temp Pulse Resp BP Pulse Ox O2 Del Method O2 Flow Rate 97.5 F L 89 20 H 109/59 L 100 Nasal Cannula 2 10/02/25 16:00 10/02/25 16:00 10/02/25 16:00 10/02/25 16:00 10/02/25 16:00 10/02/25 16:00 10/02/25 16:00 Oxygen Flow Rate (L/min) 2 Oxygen Delivery Method Nasal Cannula Weight: 84.1 kg Body Mass Index (BMI) 32.8 Intake & Output: Intake and Output for Last 24 Hours 09/30/25 10/01/25 10/02/25 23:59 23:59 23:59 Intake Total 300 / 300 Output Total 1750 / 1750 Balance -1450 / -1450 Lab / Micro Data 10/02/25 03:35 10/02/25 03:35 Labs: Laboratory Results - last 24 hr 10/01/25 19:10: WBC 5.4, RBC 4.42, Hgb 13.1, Hct 43.6, MCV 98.6, MCH 29.6, MCHC 30.0 L, RDW Std Deviation 52.8 H, RDW Coeff of Lalit 14.4, Plt Count 143 L, MPV 11.1, Immature Gran % (Auto) 0.600, Neut % (Auto) 75.8 H, Lymph % (Auto) 10.4 L, Kimble % (Auto) 8.3, Eos % (Auto) 4.3, Baso % (Auto) 0.6, Absolute Neuts (auto) 4.1, Absolute Lymphs (auto) 0.56 L, Nucleated RBC % 0, Sodium 139, Potassium 3.4, Chloride 99, Carbon Dioxide 34.2 H, Anion Gap 6, BUN 10, Creatinine 0.61 L, Estim Creat Clear Calc 56.73, Est GFR (MDRD) Non-Af 89, BUN/Creatinine Ratio 17.1, Glucose 116 H, Calcium 9.2, Troponin T High Sens 30 H D, NT pro BNP II 2908 H 10/01/25 21:15: Magnesium 1.8, Troponin T Hi Sens 2 Hr 31 H 10/01/25 22:37: Urine Color Yellow, Urine Clarity Clear, Urine pH 7.0, Ur Specific [place] 1.010, Urine Protein 30 H, Urine Glucose (UA) Normal, Urine Ketones Negative, Urine Occult Blood 10 H, Urine Nitrite Negative, Urine Bilirubin Negative, Urine Urobilinogen Normal, Ur Leukocyte Esterase Negative, Urine RBC 0-5 SEEN, Urine WBC 0-5 SEEN, Ur Squamous Epith Cells 5-10 SEEN, Urine Bacteria 1+, Urine Mucus 0 SEEN 10/02/25 03:35: WBC 4.9, RBC 4.38, Hgb 12.9, Hct 43.3, MCV 98.9, MCH 29.5, MCHC 29.8 L, RDW Std Deviation 52.6 H, RDW Coeff of Lalit 14.5, Plt Count 145 L, MPV 10.7, Immature Gran % (Auto) 0.800, Neut % (Auto) 73.1 H, Lymph % (Auto) 12.0 L, Kimble % (Auto) 9.0, Eos % (Auto) 4.5, Baso % (Auto) 0.6, Absolute Neuts (auto) 3.6, Absolute Lymphs (auto) 0.59 L, Nucleated RBC % 0, Sodium 141, Potassium 3.6, Chloride 97 L, Carbon Dioxide 37.6 H, Anion Gap 6, BUN 9, Creatinine 0.53 L, Estim Creat Clear Calc 55.70, Est GFR (MDRD) Non-Af 92, BUN/Creatinine Ratio 16.7, Glucose 105 H, Hemoglobin A1c 5.6, Calcium 9.4, Total Bilirubin 0.55, AST 16, ALT < 5, Alkaline Phosphatase 26 L, Total Protein 6.4, Albumin 3.3 L, Globulin 3.1, Albumin/Globulin Ratio 1.0, Triglycerides 112, Cholesterol 169, LDL Cholesterol, Calc 93, VLDL Cholesterol 22, HDL Cholesterol 56, Cholesterol/HDL Ratio 3.01, TSH 3.890 10/02/25 06:39: POC Glucose 93 10/02/25 10:57: POC Glucose 107 H 10/02/25 15:58: POC Glucose 122 H Radiography Diagnostic Testing: Radiology Impression Chest X-Ray 10/01/25 18:49 IMPRESSION: 1. Cardiomegaly with pulmonary congestion and edema. Superimposed pneumonia cannot be excluded. 2. Right pleural effusion. Reading Location: [facility] Brain CT 10/01/25 20:10 IMPRESSION: 1. No acute intracranial hemorrhage, midline shift or mass effect. If symptoms persist, further evaluation with MRI is recommended. 2. Mild small vessel ischemic/degenerative changes. Reading Location: [facility] Head/Neck CTA 10/01/25 20:10 IMPRESSION: No high grade stenosis or large vessel occlusions. Possible spiculated lesion within the right upper lobe measuring 1.6 x 1.6 cm. Reading Location: [facility] Rhythm Strip Rhythm Strip: Sinus Rhythm Rate: 89 Ectopy: None Physical Exam Narrative General: Alert, answers questions appropriately HEENT: Atraumatic, normocephalic Eyes: Anicteric, normal conjunctiva, extraocular movements intact, pupils equal Neck: Supple Respiratory: No overt wheezes or rhonchi, normal respiratory effort Cardiovascular: Regular rate GI: Soft, nontender, nondistended Extremities: No edema Musculoskeletal: Difficult to assess strength due to pain in her arms but she does not feel like there is any difference from baseline in that regard Neuro: No overt focal neurological deficits, no overt facial asymmetry, unable to perform full exam given pain complaints however Skin: No rashes appreciated Psych: Cooperative Assessment & Plan Assessment/Plan (1) Altered mental status: PLAN: Plan # Confusion and possible drooping eyelid -Admit to tele -CT head w/ chronic changes in ED -CTA head and neck no LVO -MRI ordered and is pending -NIH q4hr -asa, statin -Echo not repeated as there is one performed 5 days ago with no evidence for ASD, EF at that time 75% -PT/OT/Speech eval -Uncertain if this was stroke related, seemed more transient confusion and there was question of an eyelid drooping versus if it was stuck together, will hold off on teleneurology consult until MRI available # Diffuse joint pain - Reportedly was told 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 and improved significantly with prednisone previously - Also derives more relief from ibuprofen than Tylenol - Has not tolerated gabapentin or opioids in the past - Discussed risks of ibuprofen and benefits and ultimately patient and family would like to continue as needed ibuprofen for her pain will order - ESR, CRP, inflammatory panel, can consider prednisone pending workup, scans, clinical status - Did discuss that starting this is not without risks and reasons why it is ideal to avoid this and patient and family verbalized understanding # History of metastatic non-small cell lung cancer - Reportedly underwent chemo and radiation -did not start immunotherapy due to lab abnormality per family member # Possible spiculated right upper lobe lesion - Follow-up outpatient with her oncologist #Type 2 diabetes mellitus -Glucose checks and sliding scale insulin #DVT ppx: Lovenox subcu Leah Rdz MD Time spent in the patient's overall evaluation, decision-making process, review of diagnostic data, adjustment of management, discussion with other providers, nursing and ancillary staff involved in patient's care documentation, 40 Minutes Charges/Coding Visit Charges Inpatient E&M: 98753 Subs Hosp L2 NIHSS NIHSS Nursing Documentation NIHSS Nursing Documentation: NIHSS: Ischemic Stroke/TIA Start: 10/02/25 00:17 Text: For PCU Patients: NIH and Neuro Check every 4 Status: Active hours, PRN and with change in RN caregiver. Freq: [id number] Protocol: Activity Type Activity Date Activity User E-sign Co-sign Detail Recorded Client Recorded Date Recorded By Document 10/02/25 16:00 pcuu 10/02/25 16:17 10/02/25 16:00 NIH Stroke Scale [NIHSS] A score of 0 is "normal" or asymptomatic . Total possible score is 42. Inpatient: RN or Physician to activate a stroke alert for onset of new stroke symptoms or with NIHSS increase >/= 3 points. Following change in neurological status, NIHSS will be performed per physician order or more frequently PRN. -1a. Level of Consciousness 0 - Alert; keenly responsive -1b. LOC Questions 0 - Answers BOTH questions correctly -1c. LOC Commands 0 - Performs BOTH tasks correctly -2. Best Gaze 0 - Normal -3. Visual 0 - No visual loss -4. Facial Palsy 0 - Normal symmetrical movements -5a. Left Arm 0 - No drift; arm holds 90 ( or 45) degrees for full 10 seconds -5b. Right Arm 0 - No drift; arm holds 90 ( or 45) degrees for full 10 seconds -6a. Left Leg 0 - No drift; leg holds 30- degree position for full 5 seconds -6b. Right Leg 0 - No drift; leg holds 30- degree position for full 5 seconds -7. Limb Ataxia 0 - Absent -8. Sensory 0 - Normal; no sensory loss -9. Best Language 0 - No aphasia; normal -10. Dysarthria 0 - Normal -11. Extinction and Inattention 0 - No abnormality -Total 0 Query Text:A score of 0 is "normal" or asymptomatic. Total possible score is 42 . ED: Notify Physician for NIHSS increase by > / = 3 points. Inpatient: RN or Physician to activate a stroke alert for NIHSS increase of > / = 3 points. Coma Scale [Assess] -Eye Opening Spontaneous -Motor Obeys Commands -Verbal Oriented [Total] -Coma Scale Total 15
[2025-10-02] MEDS: 0.9% Saline Lock 10 ML Syringe IV (18:49)
[2025-10-02 20:17] LABS: CRP 32.50 mg/L (0.0-3.0)
[2025-10-02] MEDS: Senna/Docusate Sodium 1 Tablet 2 TABLET PO (21:31)
[2025-10-03] VITALS (8 sets, daily range): BP systolic 106–141; BP diastolic 51–63; PULSE 83–96; RESP 14–20; TEMP 36.4–36.8; O2SAT 94–99; BMI 32.8
--- NOTE | 2025-10-03 00:45 | NURSING ---
pt unable to wake up enough for her 00:00 NIH assessment. pt only responsive to shaking/loud voice. INDUSTRIAL SAFETY AND HEALTH MANAGER Yvonne Dobson called to bedside: ordered Ammonia, morning labs early for right now, and ABG.
--- NOTE | 2025-10-03 00:56 | PCM.HOSP.N ---
Hospitalist Note Called to bedside to assist in assessment of patient; nursing reports that she is not remaining alert enough to complete NIH assessment. Patient responds to tactile stimulation and increased voice with questioning, but does not answer coherently. Family member at bedside reports that she has not been sleeping since she has been here, family member states that she fears that she is "just absolutely fatigued." Patient withdraws from painful stimuli, follows physical commands, is noted to have shallow respirations, heart tones clear. I did ask for all morning labs to be drawn now, with addition of stat ammonia and ABG. Family requesting right chest medport be used for blood draws. Brain CT from October 01 showed no acute intracranial hemorrhage, midline shift or mass effect; does show mild small vessel ischemic degenerative changes. Head neck CTA of same date does not show any high-grade stenosis or LVO. Brain MRI done October 02, awaiting interpretation. Nursing NIHSS 6 on admission for yesterday morning, has 2 scores of 0, and then her score of 2 at 1930 by shift superintendent, with bilateral lower extremity deficits of drift and leg falling by end of 5 seconds but do not hit the bed. ABG results: pH 7.36, bicarb 45, total CO2 47, O2 sat of 97, pCO2 79.9, PaO2 106 while on 2 L nasal cannula; demonstrates fully compensated chronic hypoventilation. RT reports that patient woke up followed commands well for testing, patient stated "I just want to sleep." RT notified Dr. Rose; no new orders regarding ABG results. Ammonia level normal at 26.5. Reviewed case with accompanying physician, . In agreement with no further investigation at this time.
[2025-10-03 00:58] LABS: Hematocrit 41.9 % (37-47); Hemoglobin 12.5 g/dL (12.0-15.0); Immature Granulocytes Count 0.030 X10^3/uL (0.0-0.0); Mean Corp Hgb Conc 29.8 g/dL (32-36); Mean Corpuscular Volume 98.4 fL (81-99); Mean Platelet Vol. 10.9 fl (6.2-12.0); NRBC Flagged by Analyzer 0 % (0-5); POSITIVE DIFFERENTIAL YES; Platelet Count 148 K/mm3 (150-450); RBC Distribution Width CV 14.6 % (11.6-14.6); RBC Distribution Width SD 52.9 fl (35.1-43.9); Red Blood Count 4.26 M/mm3 (4.2-5.4); White Blood Count 4.3 K/mm3 (4.4-11.0)
[2025-10-03 01:02] LABS: Allen Test Positive; Base Excess 20 mmol/L (-2 to +2); FI02 2.0; PO2 106 mmHG (75-100); SITE L Radial; SO2 97 % (94-98)
[2025-10-03 01:24] LABS: Ammonia 26.5 umol/L (11-51); Anion Gap 5 (5-15); BUN 15 mg/dL (4-19); BUN/Creat Ratio 19.9 RATIO (10-20); Calcium,Total 9.3 mg/dL (7.6-11.0); Carbon Dioxide 42.9 mmol/L (21.0-32.0); Chloride 94 mmol/L (98-108); Estimated Creatinine Clearance 55.70 ml/min (50-250); Glucose 112 mg/dL (70-99); Potassium 3.3 mmol/L (3.3-5.1)
--- NOTE | 2025-10-03 08:45 | CASEMGMT ---
Social Work Per imaging pt negative for stroke, therefore PHQ9 not completed. LEN Hollingsworth
[2025-10-03] MEDS: Senna/Docusate Sodium 1 Tablet 2 TABLET PO ×2 (11:21→21:06)
--- NOTE | 2025-10-03 12:01 | PN.HOSP_ITS ---
Reason for Visit Chief Complaint: Dyspnea, fatigue, malaise, increased BL LE edema, transient L sided facial droop. Subjective Subjective Feeling little bit better than yesterday, continues to have pain to touch not only with joints and movement but even touching skin lightly seems to cause pain Objective Data Objective Data Vital Signs: Vital Signs Temp Pulse Resp BP Pulse Ox O2 Del Method O2 Flow Rate 97.8 F 88 17 106/51 L 97 Nasal Cannula 2 10/03/25 10:36 10/03/25 10:36 10/03/25 10:36 10/03/25 10:36 10/03/25 10:36 10/03/25 10:49 10/03/25 10:49 Oxygen Flow Rate (L/min) 2 Oxygen Delivery Method Nasal Cannula Weight: 84.1 kg Body Mass Index (BMI) 32.8 Intake & Output: Intake and Output for Last 24 Hours 10/01/25 10/02/25 10/03/25 23:59 23:59 23:59 Intake Total 1300 / 1300 Output Total 2950 / 3250 500 / 500 Balance -1650 / -1950 -500 / -500 Lab / Micro Data 10/03/25 00:40 10/03/25 00:40 Labs: Laboratory Results - last 24 hr 10/02/25 15:58: POC Glucose 122 H 10/02/25 19:40: ESR 36 H, C-React Prot Ext Range 32.50 H, Rheumatoid Factor < 10.0, PHANI-1 Antibody TNP, Sm (Santiago) Antibody TNP, BRICK MACHINE OPERATOR Antibody TNP, Scl-70 Scleroderma Ab TNP, Antichromatin Antibodies TNP, Centromere B Antibody TNP 10/02/25 21:24: POC Glucose 116 H 10/03/25 00:17: POC Glucose 108 H 10/03/25 00:40: WBC 4.3 L, RBC 4.26, Hgb 12.5, Hct 41.9, MCV 98.4, MCH 29.3, M CHC 29.8 L, RDW Std Deviation 52.9 H, RDW Coeff of Lalit 14.6, Plt Count 148 L, MPV 10.9, Immature Gran % (Auto) 0.700, Neut % (Auto) 66.7, Lymph % (Auto) 14.0 L, [place] % (Auto) 10.7 H, Eos % (Auto) 7.0 H, Baso % (Auto) 0.9, Absolute Neuts (auto) 2.9, Absolute Lymphs (auto) 0.60 L, Nucleated RBC % 0, Sodium 141, Potassium 3.3, Chloride 94 L, Carbon Dioxide 42.9 H, Anion Gap 5, BUN 15, Creatinine 0.73, Estim Creat Clear Calc 55.70, Est GFR (MDRD) Non-Af 82, BUN/Creatinine Ratio 19.9, Glucose 112 H, Calcium 9.3, Ammonia 26.5 10/03/25 06:19: POC Glucose 107 H ABG Data ABG results: ABG 10/03/25 00:56 Specimen Type ART Sample Site L Radial pH 7.36 Bicarbonate Actual 45.0 H Total CO2 47 Base Excess 20 H O2 Saturation 97 O2 % 2.0 ABG pCO2 79.9 H* ABG pO2 106 H Emmanuel Test Positive O2 Delivery Device Cannula Vent Mode Not entered Crit Call To/Read Back Yes Blood Gas Notified Whom Dr Peña Blood Gas Notified Time 00:58:57 Radiography Diagnostic Testing: Radiology Impression Brain MRI 10/02/25 00:17 IMPRESSION: No acute infarcts. No intracerebral or extra-axial hematomas. No enhancing masses. Bilateral cerebral microvascular ischemic changes with mild brain involutional changes. Reading Location: [place] [id number] Rhythm Strip Rhythm Strip: Sinus Rhythm Rate: 89 Ectopy: None Physical Exam Narrative General: Alert, answers questions appropriately HEENT: Atraumatic, normocephalic, does have some to the side but apparently this is normal Eyes: Anicteric, normal conjunctiva, extraocular movements intact, pupils equal Neck: Supple Respiratory: No overt wheezes or rhonchi, normal respiratory effort Cardiovascular: Regular rate GI: Soft, nontender, nondistended Extremities: Does have some edema more noticeable in feet as rest of the legs are Issa wrapped Musculoskeletal: Moving all extremities Neuro: No overt focal neurological deficits, patient with pain to even light palpation of skin Skin: No rashes appreciated Psych: Cooperative Assessment & Plan Assessment/Plan (1) Altered mental status: PLAN: Plan # Confusion and possible drooping eyelid-CVA ruled out -Admit to tele -CT head w/ chronic changes in ED -CTA head and neck no LVO -MRI ordered and is pending -NIH q4hr -asa, statin -Echo not repeated as there is one performed 5 days ago with no evidence for ASD, EF at that time 75% -PT/OT/Speech eval -Uncertain if this was stroke related, seemed more transient confusion and there was question of an eyelid drooping versus if it was stuck together, will hold off on teleneurology consult until MRI available -10/03: Confusion resolved, query if patient may have had brief delirium given her recent hospitalization, last night VETERINARY LABORATORY TECHNICIAN was called as patient was hard to wake up but ultimately she would wake up and answer questions and reported she was just tired, family member at bedside also reported she had not slept well and was just tired. Today patient awake alert and answering questions appropriately. Did have an ABG overnight which showed an elevated pCO2 but this is compensated and had normal pH. May need to consider sleep study on outpatient basis. MRI negative for acute stroke and after discussion with family the main complaint was confusion and possibly droopy right eyelid but they noted that the eye may have just been stuck together from just waking up, no facial droop or other neurosymptoms were relayed to me. Will DC aspirin and statin as these do not appear to be home medications # Diffuse joint pain - Reportedly was told 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 and improved significantly with prednisone previously - Also derives more relief from ibuprofen than Tylenol - Has not tolerated gabapentin or opioids in the past - Discussed risks of ibuprofen and benefits and ultimately patient and family would like to continue as needed ibuprofen for her pain will order - ESR, CRP, inflammatory panel, can consider prednisone pending workup, scans, clinical status - Did discuss that starting this is not without risks and reasons why it is ideal to avoid this and patient and family verbalized understanding -10/03: Rheumatoid factor negative, ESR 36 and CRP 32.5, further workup pending but thus far very nonspecific. Discussed various treatment options for patient's pain, patient and family want to avoid opiates given her history of trying them and having adverse effects, she did not like how gabapentin made her feel, tried Cymbalta but it "made her mean and fuzzy," and Tylenol does not work. Discussed Lyrica and amitriptyline as patient even has tenderness to skin and may have a component of fibromyalgia versus trying a long-acting NSAID instead of frequent ibuprofen, ultimately given patient's difficulty tolerating medications previously she was agreeable to trying long-acting NSAID, ordered meloxicam and discontinued ibuprofen. Discussed with indeterminate workup but I will defer any steroid treatment or further aggressive treatment to rheumatology who she is to follow with in October. Did discuss with family risk of fluid retention with NSAIDs and that this is ideally short-term, last night also discussed the risk of increased ischemic events particularly stroke with NSAIDs. Given patient's pain and lack of other efficacious treatments, family and patient would like to move forward with long-acting NSAID after discussing risks and benefits. Will see how patient does with PT/OT, possibly medically able to discharge as soon as tomorrow but family and patient uncertain about dispo due to their concerns regarding her pain specifically. Did discuss with them that we can try the long-acting NSAID as an attempt to help with the pain to bridge her to her appointment but that her pain will likely not be gone on discharge especially given lack of tolerating most medications that are been tried for pain in the past. Patient and family verbalized understanding # History of metastatic non-small cell lung cancer - Reportedly underwent chemo and radiation -did not start immunotherapy due to lab abnormality per family member -10/03: Still has port, reports that this is going to stand, did review most recent oncology note and patient is still under surveillance, scheduled follow- up in a year # Possible spiculated right upper lobe lesion - Follow-up outpatient with her oncologist -10/03: It appears that a CT chest 05/26/2024 also noted a spiculated density in medial right upper lobe consistent with scar # Heart failure with preserved ejection fraction -10/03: Patient has some swelling in her legs, last admission did not want to go home on Lasix due to frequent urination. Tentatively agreeable this time if necessary. Echocardiogram on 09/28/2025 with EF of 75% and indeterminate diastolic function, suspect an aspect of HFpEF in addition to NSAID use leading to fluid overload. Did discuss this with patient and family. Monitoring fluid status, does seem to be somewhat improved, able to lower dose of Lasix today, repeat labs in the a.m. #DVT ppx: Lovenox subcu Leah Rdz MD Time spent in the patient's overall evaluation, decision-making process, review of diagnostic data, adjustment of management, discussion with other providers, nursing and ancillary staff involved in patient's care documentation, 37 Minutes Charges/Coding Visit Charges Inpatient E&M: 28258 Subs Hosp L2 NIHSS NIHSS Nursing Documentation NIHSS Nursing Documentation: NIHSS: Ischemic Stroke/TIA Start: 10/02/25 00:17 Text: For PCU Patients: NIH and Neuro Check every 4 Status: Complete hours, PRN and with change in RN caregiver. Freq: [id number] Protocol: Activity Type Activity Date Activity User E-sign Co-sign Detail Recorded Client Recorded Date Recorded By Document 10/02/25 19:30 [facility] [id number] 10/02/25 20:53 HTS 10/02/25 19:30 NIH Stroke Scale [NIHSS] A score of 0 is "normal" or asymptomatic . Total possible score is 42. Inpatient: RN or Physician to activate a stroke alert for onset of new stroke symptoms or with NIHSS increase >/= 3 points. Following change in neurological status, NIHSS will be performed per physician order or more frequently PRN. -1a. Level of Consciousness 0 - Alert; keenly responsive -1b. LOC Questions 0 - Answers BOTH questions correctly -1c. LOC Commands 0 - Performs BOTH tasks correctly -2. Best Gaze 0 - Normal -3. Visual 0 - No visual loss -4. Facial Palsy 0 - Normal symmetrical movements -5a. Left Arm 0 - No drift; arm holds 90 ( or 45) degrees for full 10 seconds -5b. Right Arm 0 - No drift; arm holds 90 ( or 45) degrees for full 10 seconds -6a. Left Leg 1 - Drift; leg falls by the end of 5- seconds, but does not hit bed -6b. Right Leg 1 - Drift; leg falls by the end of 5- seconds, but does not hit bed -7. Limb Ataxia 0 - Absent -8. Sensory 0 - Normal; no sensory loss -9. Best Language 0 - No aphasia; normal -10. Dysarthria 0 - Normal -11. Extinction and Inattention 0 - No abnormality -Total 2 Query Text:A score of 0 is "normal" or asymptomatic. Total possible score is 42 . ED: Notify Physician for NIHSS increase by > / = 3 points. Inpatient: RN or Physician to activate a stroke alert for NIHSS increase of > / = 3 points. Coma Scale [Assess] -Eye Opening Spontaneous -Motor Obeys Commands -Verbal Oriented [Total] -Coma Scale Total 15
[2025-10-03] MEDS: 0.9% Saline Lock 10 ML Syringe IV (12:37)
[2025-10-03] MEDS: Furosemide 20 MG/2 ML VIAL IV (12:37)
--- NOTE | 2025-10-03 13:30 | CASEMGMT ---
SHARMIN CASTAÑEDA in to discuss discharge planning with patient and daughters at bedside. Daughters states that patient did ok with therapy and are agreeable with patient going home with [facility] again. Patient and family had no further questions or concerns. SHARMIN CASTAÑEDA updated [facility] regarding resumption of care at discharge. CM will continue to follow this patient and plan for a safe discharge.
[2025-10-04 03:00] VITALS: BMI 31.9
[2025-10-04 05:48] VITALS: BMI 31.9
[2025-10-04 06:00] VITALS: BP 147/86; PULSE 92; RESP 20; TEMP 36.6; O2SAT 94
[2025-10-04 07:14] LABS: Hematocrit 41.9 % (37-47); Hemoglobin 12.4 g/dL (12.0-15.0); Immature Granulocytes Count 0.020 X10^3/uL (0.0-0.0); Mean Corp Hgb Conc 29.6 g/dL (32-36); Mean Corpuscular Volume 99.3 fL (81-99); Mean Platelet Vol. 11.2 fl (6.2-12.0); NRBC Flagged by Analyzer 0 % (0-5); POSITIVE DIFFERENTIAL YES; Platelet Count 156 K/mm3 (150-450); RBC Distribution Width CV 14.7 % (11.6-14.6); RBC Distribution Width SD 53.1 fl (35.1-43.9); Red Blood Count 4.22 M/mm3 (4.2-5.4); White Blood Count 4.3 K/mm3 (4.4-11.0)
[2025-10-04 07:30] LABS: Anion Gap 5 (5-15); BUN 17 mg/dL (4-19); BUN/Creat Ratio 25.7 RATIO (10-20); Calcium,Total 9.4 mg/dL (7.6-11.0); Carbon Dioxide 44.2 mmol/L (21.0-32.0); Chloride 93 mmol/L (98-108); Estimated Creatinine Clearance 54.91 ml/min (50-250); Glucose 106 mg/dL (70-99); Potassium 3.4 mmol/L (3.3-5.1)
[2025-10-04 10:24] VITALS: BP 112/51; PULSE 96; RESP 17; TEMP 36.5; O2SAT 100
[2025-10-04] MEDS: Senna/Docusate Sodium 1 Tablet 2 TABLET PO ×2 (10:27→21:41)
[2025-10-04 10:59] LABS: Allen Test Positive; Base Excess 26 mmol/L (-2 to +2); FI02 2.0; PO2 86 mmHG (75-100); SITE L Radial; SO2 95 % (94-98)
[2025-10-04 12:03] VITALS: BMI 31.9
[2025-10-04 12:05] VITALS: O2SAT 93
[2025-10-04 16:30] VITALS: BP 94/54; PULSE 95; RESP 16; TEMP 36.7; O2SAT 98
--- NOTE | 2025-10-04 18:09 | PCM.PN.HOSP ---
Reason for Visit Chief Complaint: Dyspnea, fatigue, malaise, increased BL LE edema, transient L sided facial droop. Subjective Subjective Patient evaluated at bedside with family members present, still has some pain but does feel that significantly improved her functional status since starting meloxicam yesterday and has less pain complaints, was concerned that maybe is making her feel little bit foggy, discussed her pCO2 and possible other reasons for that. She denies any shortness of breath at this time, she is awake and alert and answering all questions appropriately Objective Data Objective Data Vital Signs: Vital Signs Temp Pulse Resp BP Pulse Ox O2 Del Method O2 Flow Rate 98.0 F 95 16 94/54 L 98 Nasal Cannula 2 10/04/25 16:30 10/04/25 16:30 10/04/25 16:30 10/04/25 16:30 10/04/25 16:30 10/04/25 16:30 10/04/25 16:30 Oxygen Flow Rate (L/min) 2 Oxygen Delivery Method Nasal Cannula Weight: 81.8 kg Body Mass Index (BMI) 31.9 Intake & Output: Intake and Output for Last 24 Hours 10/02/25 10/03/25 10/04/25 23:59 23:59 23:59 Intake Total 1300 / 1300 400 / 400 Output Total 2950 / 3250 500 / 800 900 / 900 Balance -1650 / -1950 -500 / -800 -500 / -500 Lab / Micro Data 10/04/25 06:55 10/04/25 06:55 Labs: Laboratory Results - last 24 hr 10/02/25 19:40: Cycl Citrul Peptide IgG 8 10/04/25 06:55: WBC 4.3 L, RBC 4.22, Hgb 12.4, Hct 41.9, MCV 99.3 H, MCH 29.4, MCHC 29.6 L, RDW Std Deviation 53.1 H, RDW Coeff of Lalit 14.7 H, Plt Count 156, MPV 11.2, Immature Gran % (Auto) 0.500, Neut % (Auto) 70.1 H, Lymph % (Auto) 12.6 L, [place] % (Auto) 11.0 H, Eos % (Auto) 5.1 H, Baso % (Auto) 0.7, Absolute Neuts (auto) 3.0, Absolute Lymphs (auto) 0.54 L, Nucleated RBC % 0, Sodium 142, Potassium 3.4, Chloride 93 L, Carbon Dioxide 44.2 H, Anion Gap 5, BUN 17, Creatinine 0.65 L, Estim Creat Clear Calc 54.91, Est GFR (MDRD) Non-Af 88, BUN/Creatinine Ratio 25.7 H, Glucose 106 H, Calcium 9.4 ABG Data ABG results: ABG 10/04/25 10:55 Specimen Type ART Sample Site L Radial pH 7.34 L Bicarbonate Actual 51.9 H Total CO2 > 50 Base Excess 26 H O2 Saturation 95 O2 % 2.0 ABG pCO2 96.3 H* ABG pO2 86 Emmanuel Test Positive O2 Delivery Device Cannula Vent Mode Not entered Crit Call To/Read Back Yes Blood Gas Notified Whom mon Blood Gas Notified Time 10:56:51 Rhythm Strip Rhythm Strip: Sinus Rhythm Rate: 89 Ectopy: None Physical Exam Narrative General: Alert, no apparent distress, answering my questions appropriately HEENT: Atraumatic Eyes: Anicteric, normal conjunctiva, extraocular movements grossly intact Neck: Supple Respiratory: No significant wheezes or rhonchi, normal respiratory effort Cardiovascular: Regular rate GI: Soft, nontender, nondistended Extremities: Improving lower extremity edema Musculoskeletal: Moving all extremities, less painful on physical exam Neuro: No overt focal neurological deficits Skin: No new rashes appreciated Psych: Cooperative Assessment & Plan Assessment/Plan (1) Altered mental status: PLAN: Plan # Confusion and possible drooping eyelid-CVA ruled out -Admit to tele -CT head w/ chronic changes in ED -CTA head and neck no LVO -MRI ordered and is pending -NIH q4hr -asa, statin -Echo not repeated as there is one performed 5 days ago with no evidence for ASD, EF at that time 75% -PT/OT/Speech eval -Uncertain if this was stroke related, seemed more transient confusion and there was question of an eyelid drooping versus if it was stuck together, will hold off on teleneurology consult until MRI available -10/03: Confusion resolved, query if patient may have had brief delirium given her recent hospitalization, last night [employer] was called as patient was hard to wake up but ultimately she would wake up and answer questions and reported she was just tired, family member at bedside also reported she had not slept well and was just tired. Today patient awake alert and answering questions appropriately. Did have an ABG overnight which showed an elevated pCO2 but this is compensated and had normal pH. May need to consider sleep study on outpatient basis. MRI negative for acute stroke and after discussion with family the main complaint was confusion and possibly droopy right eyelid but they noted that the eye may have just been stuck together from just waking up, no facial droop or other neurosymptoms were relayed to me. Will DC aspirin and statin as these do not appear to be home medications -10/04: Patient was initially brought in as she became confused overnight, 2 nights ago she was confused and had ABG which appeared to have a compensated acid-base abnormality, last night confused again but was redirectable but ultimately and went back to sleep. Given further elevations in bicarb on BMP today repeat ABG obtained which showed a pH of 7.34 barely below the lower limit of normal of 7.35 with a bicarb reported out at 51.9 and a pCO2 of 96.3. Patient awake and alert and in no respiratory distress. Did discuss with pulmonology, ultimately it seems that patient has a primary metabolic alkalosis possibly from contraction alkalosis that she diuresed very well with the Lasix she was given and she has a compensatory respiratory acidosis, possibly has some underlying respiratory acidosis with possible sleep apnea or other underlying etiology at baseline especially given family saying she is usually only confused when she wakes up especially at nighttime. Patient is currently compensated however given trajectory do not feel it is safe yet to send patient home, will give Diamox per discussion with home x 2 doses today and repeat ABG in the a.m., if improving can discharge and follow-up with pulm outpatient for further workup. Have discussed with staff that if patient were to get confused overnight again or have any additional concerns to repeat an ABG to verify she has not developed an uncompensated respiratory acidosis that would necessitate placing patient on BiPAP. Did inform patient and family that it is a possibility that she could end up on BiPAP overnight if there were concerns for this and they verbalized understanding. Do not want to prophylactically place her on BiPAP overnight as she cannot be discharged directly to home with BiPAP and need to see how she responds to measures in order to assure safe discharge. Patient and family in agreement. # Diffuse joint pain - Reportedly was told 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 and improved significantly with prednisone previously - Also derives more relief from ibuprofen than Tylenol - Has not tolerated gabapentin or opioids in the past - Discussed risks of ibuprofen and benefits and ultimately patient and family would like to continue as needed ibuprofen for her pain will order - ESR, CRP, inflammatory panel, can consider prednisone pending workup, scans, clinical status - Did discuss that starting this is not without risks and reasons why it is ideal to avoid this and patient and family verbalized understanding -10/03: Rheumatoid factor negative, ESR 36 and CRP 32.5, further workup pending but thus far very nonspecific. Discussed various treatment options for patient's pain, patient and family want to avoid opiates given her history of trying them and having adverse effects, she did not like how gabapentin made her feel, tried Cymbalta but it "made her mean and fuzzy," and Tylenol does not work. Discussed Lyrica and amitriptyline as patient even has tenderness to skin and may have a component of fibromyalgia versus trying a long-acting NSAID instead of frequent ibuprofen, ultimately given patient's difficulty tolerating medications previously she was agreeable to trying long-acting NSAID, ordered meloxicam and discontinued ibuprofen. Discussed with indeterminate workup but I will defer any steroid treatment or further aggressive treatment to rheumatology who she is to follow with in October. Did discuss with family risk of fluid retention with NSAIDs and that this is ideally short-term, last night also discussed the risk of increased ischemic events particularly stroke with NSAIDs. Given patient's pain and lack of other efficacious treatments, family and patient would like to move forward with long-acting NSAID after discussing risks and benefits. Will see how patient does with PT/OT, possibly medically able to discharge as soon as tomorrow but family and patient uncertain about dispo due to their concerns regarding her pain specifically. Did discuss with them that we can try the long-acting NSAID as an attempt to help with the pain to bridge her to her appointment but that her pain will likely not be gone on discharge especially given lack of tolerating most medications that are been tried for pain in the past. Patient and family verbalized understanding -10/04: Significant improvement with meloxicam, will continue, patient will need to follow-up outpatient # Heart failure with preserved ejection fraction -10/03: Patient has some swelling in her legs, last admission did not want to go home on Lasix due to frequent urination. Tentatively agreeable this time if necessary. Echocardiogram on 09/28/2025 with EF of 75% and indeterminate diastolic function, suspect an aspect of HFpEF in addition to NSAID use leading to fluid overload. Did discuss this with patient and family. Monitoring fluid status, does seem to be somewhat improved, able to lower dose of Lasix today, repeat labs in the a.m. -10/04: Patient diuresed very well with intermittent Lasix, appears clinically euvolemic but given increasing bicarb does seem that maybe there is a contraction alkalosis component, holding on further Lasix, Diamox as above, continue to monitor input and output Chronic medical problems and/or problems not being actively addressed during today's encounter: # History of metastatic non-small cell lung cancer - Reportedly underwent chemo and radiation -Still has port, did review most recent oncology note and patient is still under surveillance, scheduled follow-up in a year # Possible spiculated right upper lobe lesion - It appears that a CT chest 05/26/2024 also noted a spiculated density in medial right upper lobe consistent with scar #DVT ppx: Lovenox subcu Leah Mon MD Time spent in the patient's overall evaluation, decision-making process, review of diagnostic data, adjustment of management, discussion with other providers, nursing and ancillary staff involved in patient's care documentation, 52 minutes Charges/Coding Visit Charges Inpatient E&M: 75106 Subs Hosp L3 NIHSS NIHSS Nursing Documentation NIHSS Nursing Documentation: NIHSS: Ischemic Stroke/TIA Start: 10/02/25 00:17 Text: For PCU Patients: NIH and Neuro Check every 4 Status: Complete hours, PRN and with change in RN caregiver. Freq: [id number] Protocol: Activity Type Activity Date Activity User E-sign Co-sign Detail Recorded Client Recorded Date Recorded By Document 10/02/25 19:30 [facility] [id number] 10/02/25 20:53 [facility] 10/02/25 19:30 NIH Stroke Scale [NIHSS] A score of 0 is "normal" or asymptomatic . Total possible score is 42. Inpatient: RN or Physician to activate a stroke alert for onset of new stroke symptoms or with NIHSS increase >/= 3 points. Following change in neurological status, NIHSS will be performed per physician order or more frequently PRN. -1a. Level of Consciousness 0 - Alert; keenly responsive -1b. LOC Questions 0 - Answers BOTH questions correctly -1c. LOC Commands 0 - Performs BOTH tasks correctly -2. Best Gaze 0 - Normal -3. Visual 0 - No visual loss -4. Facial Palsy 0 - Normal symmetrical movements -5a. Left Arm 0 - No drift; arm holds 90 ( or 45) degrees for full 10 seconds -5b. Right Arm 0 - No drift; arm holds 90 ( or 45) degrees for full 10 seconds -6a. Left Leg 1 - Drift; leg falls by the end of 5- seconds, but does not hit bed -6b. Right Leg 1 - Drift; leg falls by the end of 5- seconds, but does not hit bed -7. Limb Ataxia 0 - Absent -8. Sensory 0 - Normal; no sensory loss -9. Best Language 0 - No aphasia; normal -10. Dysarthria 0 - Normal -11. Extinction and Inattention 0 - No abnormality -Total 2 Query Text:A score of 0 is "normal" or asymptomatic. Total possible score is 42 . ED: Notify Physician for NIHSS increase by > / = 3 points. Inpatient: RN or Physician to activate a stroke alert for NIHSS increase of > / = 3 points. Coma Scale [Assess] -Eye Opening Spontaneous -Motor Obeys Commands -Verbal Oriented [Total] -Coma Scale Total 15
[2025-10-04 21:35] VITALS: BP 118/43; PULSE 93; RESP 14; TEMP 36.8; O2SAT 95
[2025-10-04] MEDS: Polyethylene Glycol 3350 17 GM PACKET PO (21:40)
[2025-10-04 23:43] VITALS: BMI 31.7
[2025-10-05 03:55] VITALS: BP 125/53; PULSE 91; RESP 16; TEMP 36.4; O2SAT 99
[2025-10-05 05:00] VITALS: BMI 31.7
[2025-10-05 05:59] LABS: Hematocrit 40.2 % (37-47); Hemoglobin 12.1 g/dL (12.0-15.0); Immature Granulocytes Count 0.010 X10^3/uL (0.0-0.0); Mean Corp Hgb Conc 30.1 g/dL (32-36); Mean Corpuscular Volume 99.5 fL (81-99); Mean Platelet Vol. 11.1 fl (6.2-12.0); NRBC Flagged by Analyzer 0 % (0-5); Platelet Count 149 K/mm3 (150-450); RBC Distribution Width CV 14.6 % (11.6-14.6); RBC Distribution Width SD 54.1 fl (35.1-43.9); Red Blood Count 4.04 M/mm3 (4.2-5.4); White Blood Count 3.8 K/mm3 (4.4-11.0)
[2025-10-05 06:56] LABS: Anion Gap 3 (5-15); BUN 16 mg/dL (4-19); BUN/Creat Ratio 21.9 RATIO (10-20); Calcium,Total 9.7 mg/dL (7.6-11.0); Carbon Dioxide 44.5 mmol/L (21.0-32.0); Chloride 94 mmol/L (98-108); Estimated Creatinine Clearance 54.71 ml/min (50-250); Glucose 109 mg/dL (70-99); Potassium 3.7 mmol/L (3.3-5.1)
[2025-10-05 07:45] LABS: Base Excess 21 mmol/L (-2 to +2); FI02 2.0; PO2 90 mmHG (75-100); SITE L Brach; SO2 95 % (94-98)
[2025-10-05 08:09] LABS: ANTINUCLEAR ANTIBODIES DIRECT Negative (Negative)
[2025-10-05] MEDS: Senna/Docusate Sodium 1 Tablet 2 TABLET PO ×2 (11:13→21:57)
[2025-10-05] MEDS: 0.9% Normal Saline (1000mL) 1,000 ML 50 ML IV (11:15)
[2025-10-05] MEDS: 0.9% Saline Lock 10 ML Syringe IV ×2 (11:24→21:57)
--- NOTE | 2025-10-05 14:50 | CASEMGMT ---
SHARMIN CASTAÑEDA in to discuss discharge planning with patient and family at bedside. Family inquired if TCU was available and would like referral sent, declined SNF list. RN GARRY updated family that referral can be made and would need insurance approval, patient and family voiced understanding.
--- NOTE | 2025-10-05 15:44 | PCM.PN.HOSP ---
Reason for Visit Chief Complaint: Dyspnea, fatigue, malaise, increased BL LE edema, transient L sided facial droop. Subjective Subjective Patient awake and alert, no longer feels "dopey" today, still has some pain but definitely better managed, denies any other new or acute complaints aside from still not having a bowel movement Objective Data Objective Data Vital Signs: Vital Signs Temp Pulse Resp BP Pulse Ox O2 Del Method O2 Flow Rate 97.5 F L 91 16 125/53 H 99 Nasal Cannula 2 10/05/25 03:55 10/05/25 03:55 10/05/25 03:55 10/05/25 03:55 10/05/25 03:55 10/05/25 10:00 10/05/25 10:00 FiO2 2 10/05/25 07:35 Oxygen Flow Rate (L/min) 2 Oxygen Delivery Method Nasal Cannula Weight: 81.2 kg Body Mass Index (BMI) 31.7 Intake & Output: Intake and Output for Last 24 Hours 10/03/25 10/04/25 10/05/25 23:59 23:59 23:59 Intake Total 400 / 400 Output Total 500 / 800 900 / 1050 150 / 150 Balance -500 / -800 -500 / -650 -150 / -150 Lab / Micro Data 10/05/25 05:45 10/05/25 05:45 Labs: Laboratory Results - last 24 hr 10/02/25 19:40: MARGOT Screen Negative, SS-A/Ro IgG Antibody TNP, SS-B/La IgG Antibody TNP, Double Strand DNA Ab TNP 10/05/25 05:45: WBC 3.8 L, RBC 4.04 L, Hgb 12.1, Hct 40.2, MCV 99.5 H, MCH 30.0, MCHC 30.1 L, RDW Std Deviation 54.1 H, RDW Coeff of Lalit 14.6, Plt Count 149 L, MPV 11.1, Immature Gran % (Auto) 0.300, Neut % (Auto) 64.8, Lymph % (Auto) 16.1 L, [place] % (Auto) 11.4 H, Eos % (Auto) 6.6 H, Baso % (Auto) 0.8, Absolute Neuts (auto) 2.5, Absolute Lymphs (auto) 0.61 L, Nucleated RBC % 0, Sodium 141, Potassium 3.7, Chloride 94 L, Carbon Dioxide 44.5 H, Anion Gap 3 L, BUN 16, Creatinine 0.73, Estim Creat Clear Calc 54.71, Est GFR (MDRD) Non-Af 82, BUN/Creatinine Ratio 21.9 H, Glucose 109 H, Calcium 9.7 ABG Data ABG results: ABG 10/05/25 07:41 Specimen Type ART Sample Site L Brach pH 7.30 L Bicarbonate Actual 47.6 H Total CO2 > 50 Base Excess 21 H O2 Saturation 95 O2 % 2.0 ABG pCO2 97.1 H* ABG pO2 90 Emmanuel Test N/A O2 Delivery Device Cannula Vent Mode Not entered Crit Call To/Read Back Yes Blood Gas Notified Whom Dr Rdz Blood Gas Notified Time 07:42:34 Rhythm Strip Rhythm Strip: Sinus Rhythm Rate: 89 Ectopy: None Physical Exam Narrative General: Alert, no apparent distress, answering my questions appropriately HEENT: Atraumatic Eyes: Anicteric, normal conjunctiva, extraocular movements grossly intact Neck: Supple Respiratory: No wheezes or rhonchi, normal respiratory effort Cardiovascular: Regular rate GI: Soft, nontender, nondistended Extremities: Lower extremity edema unchanged from yesterday Musculoskeletal: Moving all extremities, still little painful but still improved from presentation Neuro: No overt focal neurological deficits Skin: No new rashes appreciated Psych: Cooperative Assessment & Plan Assessment/Plan (1) Altered mental status: PLAN: Plan # Confusion and possible drooping eyelid-CVA ruled out -Admit to tele -CT head w/ chronic changes in ED -CTA head and neck no LVO -MRI ordered and is pending -NIH q4hr -asa, statin -Echo not repeated as there is one performed 5 days ago with no evidence for ASD, EF at that time 75% -PT/OT/Speech eval -Uncertain if this was stroke related, seemed more transient confusion and there was question of an eyelid drooping versus if it was stuck together, will hold off on teleneurology consult until MRI available -10/03: Confusion resolved, query if patient may have had brief delirium given her recent hospitalization, last night [employer] was called as patient was hard to wake up but ultimately she would wake up and answer questions and reported she was just tired, family member at bedside also reported she had not slept well and was just tired. Today patient awake alert and answering questions appropriately. Did have an ABG overnight which showed an elevated pCO2 but this is compensated and had normal pH. May need to consider sleep study on outpatient basis. MRI negative for acute stroke and after discussion with family the main complaint was confusion and possibly droopy right eyelid but they noted that the eye may have just been stuck together from just waking up, no facial droop or other neurosymptoms were relayed to me. Will DC aspirin and statin as these do not appear to be home medications -10/04: Patient was initially brought in as she became confused overnight, 2 nights ago she was confused and had ABG which appeared to have a compensated acid-base abnormality, last night confused again but was redirectable but ultimately and went back to sleep. Given further elevations in bicarb on BMP today repeat ABG obtained which showed a pH of 7.34 barely below the lower limit of normal of 7.35 with a bicarb reported out at 51.9 and a pCO2 of 96.3. Patient awake and alert and in no respiratory distress. Did discuss with pulmonology, ultimately it seems that patient has a primary metabolic alkalosis possibly from contraction alkalosis that she diuresed very well with the Lasix she was given and she has a compensatory respiratory acidosis, possibly has some underlying respiratory acidosis with possible sleep apnea or other underlying etiology at baseline especially given family saying she is usually only confused when she wakes up especially at nighttime. Patient is currently compensated however given trajectory do not feel it is safe yet to send patient home, will give Diamox per discussion with home x 2 doses today and repeat ABG in the a.m., if improving can discharge and follow-up with pulm outpatient for further workup. Have discussed with staff that if patient were to get confused overnight again or have any additional concerns to repeat an ABG to verify she has not developed an uncompensated respiratory acidosis that would necessitate placing patient on BiPAP. Did inform patient and family that it is a possibility that she could end up on BiPAP overnight if there were concerns for this and they verbalized understanding. Do not want to prophylactically place her on BiPAP overnight as she cannot be discharged directly to home with BiPAP and need to see how she responds to measures in order to assure safe discharge. Patient and family in agreement. -10/05: Patient is awake and alert today, again is answering questions appropriately, reviewed ABG with her and that pCO2 is about the same as it was yesterday though slightly worse with slightly lower pH, given it is still so elevated, despite improved mental status and presently fairly compensated, discussed concerns that sending her home with this trajectory could lead to poor or even detrimental outcomes if she were to be discharged home today without further management and her and family verbalized understanding. Discussed pulmonology again, continue Diamox, suspected that some of this is contraction alkalosis given how well she diuresed, will give gentle IV fluids back, vitals are stable and respiratory status stable, patient agreeable to trialing BiPAP tonight, this has been ordered. Repeat ABG in the a.m. Once patient begins to show improvement/not worsening would likely be able to discharge home and follow-up outpatient with pulmonology # Diffuse joint pain - Reportedly was told 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 and improved significantly with prednisone previously - Also derives more relief from ibuprofen than Tylenol - Has not tolerated gabapentin or opioids in the past - Discussed risks of ibuprofen and benefits and ultimately patient and family would like to continue as needed ibuprofen for her pain will order - ESR, CRP, inflammatory panel, can consider prednisone pending workup, scans, clinical status - Did discuss that starting this is not without risks and reasons why it is ideal to avoid this and patient and family verbalized understanding -10/03: Rheumatoid factor negative, ESR 36 and CRP 32.5, further workup pending but thus far very nonspecific. Discussed various treatment options for patient's pain, patient and family want to avoid opiates given her history of trying them and having adverse effects, she did not like how gabapentin made her feel, tried Cymbalta but it "made her mean and fuzzy," and Tylenol does not work. Discussed Lyrica and amitriptyline as patient even has tenderness to skin and may have a component of fibromyalgia versus trying a long-acting NSAID instead of frequent ibuprofen, ultimately given patient's difficulty tolerating medications previously she was agreeable to trying long-acting NSAID, ordered meloxicam and discontinued ibuprofen. Discussed with indeterminate workup but I will defer any steroid treatment or further aggressive treatment to rheumatology who she is to follow with in October. Did discuss with family risk of fluid retention with NSAIDs and that this is ideally short-term, last night also discussed the risk of increased ischemic events particularly stroke with NSAIDs. Given patient's pain and lack of other efficacious treatments, family and patient would like to move forward with long-acting NSAID after discussing risks and benefits. Will see how patient does with PT/OT, possibly medically able to discharge as soon as tomorrow but family and patient uncertain about dispo due to their concerns regarding her pain specifically. Did discuss with them that we can try the long-acting NSAID as an attempt to help with the pain to bridge her to her appointment but that her pain will likely not be gone on discharge especially given lack of tolerating most medications that are been tried for pain in the past. Patient and family verbalized understanding -10/04: Significant improvement with meloxicam, will continue, patient will need to follow-up outpatient -10/05: Continue meloxicam, this has helped her functionality significantly # Heart failure with preserved ejection fraction -10/03: Patient has some swelling in her legs, last admission did not want to go home on Lasix due to frequent urination. Tentatively agreeable this time if necessary. Echocardiogram on 09/28/2025 with EF of 75% and indeterminate diastolic function, suspect an aspect of HFpEF in addition to NSAID use leading to fluid overload. Did discuss this with patient and family. Monitoring fluid status, does seem to be somewhat improved, able to lower dose of Lasix today, repeat labs in the a.m. -10/04: Patient diuresed very well with intermittent Lasix, appears clinically euvolemic but given increasing bicarb does seem that maybe there is a contraction alkalosis component, holding on further Lasix, Diamox as above, continue to monitor input and output -10/05: Giving IV fluids very cautiously due to thought that some of her acid-base abnormality is contraction alkalosis, discussed this with patient and family. Again we will monitor closely, presently vitally stable #Constipation -10/05: Patient reports no bowel movement in several days, she had senna docusate scheduled, MiraLAX added last night but will make this twice daily Chronic medical problems and/or problems not being actively addressed during today's encounter: # History of metastatic non-small cell lung cancer - Reportedly underwent chemo and radiation -Still has port, did review most recent oncology note and patient is still under surveillance, scheduled follow-up in a year # Possible spiculated right upper lobe lesion - It appears that a CT chest 05/26/2024 also noted a spiculated density in medial right upper lobe consistent with scar #DVT ppx: Lovenox subcu Leah Rdz MD Time spent in the patient's overall evaluation, decision-making process, review of diagnostic data, adjustment of management, discussion with other providers, nursing and ancillary staff involved in patient's care documentation, 40 minutes Charges/Coding Visit Charges Inpatient E&M: 09390 Subs Hosp L2 NIHSS NIHSS Nursing Documentation NIHSS Nursing Documentation: NIHSS: Ischemic Stroke/TIA Start: 10/02/25 00:17 Text: For PCU Patients: NIH and Neuro Check every 4 Status: Complete hours, PRN and with change in RN caregiver. Freq: [id number] Protocol: Activity Type Activity Date Activity User E-sign Co-sign Detail Recorded Client Recorded Date Recorded By Document 10/02/25 19:30 HTS [id number] 10/02/25 20:53 HTS 10/02/25 19:30 NIH Stroke Scale [NIHSS] A score of 0 is "normal" or asymptomatic . Total possible score is 42. Inpatient: RN or Physician to activate a stroke alert for onset of new stroke symptoms or with NIHSS increase >/= 3 points. Following change in neurological status, NIHSS will be performed per physician order or more frequently PRN. -1a. Level of Consciousness 0 - Alert; keenly responsive -1b. LOC Questions 0 - Answers BOTH questions correctly -1c. LOC Commands 0 - Performs BOTH tasks correctly -2. Best Gaze 0 - Normal -3. Visual 0 - No visual loss -4. Facial Palsy 0 - Normal symmetrical movements -5a. Left Arm 0 - No drift; arm holds 90 ( or 45) degrees for full 10 seconds -5b. Right Arm 0 - No drift; arm holds 90 ( or 45) degrees for full 10 seconds -6a. Left Leg 1 - Drift; leg falls by the end of 5- seconds, but does not hit bed -6b. Right Leg 1 - Drift; leg falls by the end of 5- seconds, but does not hit bed -7. Limb Ataxia 0 - Absent -8. Sensory 0 - Normal; no sensory loss -9. Best Language 0 - No aphasia; normal -10. Dysarthria 0 - Normal -11. Extinction and Inattention 0 - No abnormality -Total 2 Query Text:A score of 0 is "normal" or asymptomatic. Total possible score is 42 . ED: Notify Physician for NIHSS increase by > / = 3 points. Inpatient: RN or Physician to activate a stroke alert for NIHSS increase of > / = 3 points. Coma Scale [Assess] -Eye Opening Spontaneous -Motor Obeys Commands -Verbal Oriented [Total] -Coma Scale Total 15
[2025-10-05] MEDS: Polyethylene Glycol 3350 17 GM PACKET 34 GM PO (16:03)
[2025-10-05 16:21] VITALS: BMI 31.7
[2025-10-05 19:00] VITALS: PULSE 85
[2025-10-05] MEDS: Polyethylene Glycol 3350 17 GM PACKET PO (21:57)
[2025-10-05 22:22] VITALS: BP 97/69; PULSE 88; RESP 15; TEMP 36.6; O2SAT 100
[2025-10-05 23:30] VITALS: BMI 31.7
[2025-10-06] VITALS (7 sets, daily range): BP systolic 101–125; BP diastolic 47–52; PULSE 84–92; RESP 15–18; TEMP 36.4–36.8; O2SAT 90–99; BMI 32.2
[2025-10-06 06:35] LABS: Hematocrit 39.9 % (37-47); Hemoglobin 11.8 g/dL (12.0-15.0); Immature Granulocytes Count 0.010 X10^3/uL (0.0-0.0); Mean Corp Hgb Conc 29.6 g/dL (32-36); Mean Corpuscular Volume 99.5 fL (81-99); Mean Platelet Vol. 11.1 fl (6.2-12.0); NRBC Flagged by Analyzer 0 % (0-5); POSITIVE DIFFERENTIAL YES; Platelet Count 150 K/mm3 (150-450); RBC Distribution Width CV 14.6 % (11.6-14.6); RBC Distribution Width SD 54.3 fl (35.1-43.9); Red Blood Count 4.01 M/mm3 (4.2-5.4); White Blood Count 3.9 K/mm3 (4.4-11.0)
[2025-10-06 06:51] LABS: Base Excess 17 mmol/L (-2 to +2); FI02 2.0; PO2 98 mmHG (75-100); SITE L Radial; SO2 96 % (94-98)
--- NOTE | 2025-10-06 06:58 | CPS ---
Critical Value of CO2 of 85.1, notified bedside RN Mary of results at this time.
[2025-10-06 07:03] LABS: Anion Gap 4 (5-15); BUN 15 mg/dL (4-19); BUN/Creat Ratio 20.0 RATIO (10-20); Calcium,Total 9.4 mg/dL (7.6-11.0); Carbon Dioxide 41.3 mmol/L (21.0-32.0); Chloride 96 mmol/L (98-108); Estimated Creatinine Clearance 55.19 ml/min (50-250); Glucose 108 mg/dL (70-99); Potassium 3.6 mmol/L (3.3-5.1)
[2025-10-06] MEDS: Senna/Docusate Sodium 1 Tablet 2 TABLET PO (09:58)
--- NOTE | 2025-10-06 15:52 | CASEMGMT ---
Patient was denied by Sandra RICHARDSON to go to TCU. SHARMIN CASTAÑEDA updated hospitalist, patient medically ready for discharge. SHARMIN CASTAÑEDA updated patient and family at bedside. Family voiced understanding and will resume plan for [facility] at home and family support. Patient will need portable tank for at discharge. Patient denies further needs or concerns at discharge. SHARMIN CASTAÑEDA updated [employer] and ok to provide tank from stock, portable tank provided to patient. SHARMIN CASTAÑEDA [facility] and to contact granddaughter Peggy at [phone], start of care planned for Thursday. SHARMIN CASTAÑEDA updated discharge plan and family regarding HHC start of care. Family had no further questions or concerns. SHARMIN CASTAÑEDA update discharge plan.
--- NOTE | 2025-10-06 16:36 | DCINST_ITS ---
Discharge Instructions DC O2, CPAP, BIPAP needs Home O2 Discharge instructions: Yes Type of respiratory needs?: Oxygen Oxygen frequency: Continuous Continuous oxygen liters per minute: 2 Dressing / Incision Discharge Activity: - (Increase activity as tolerated) Follow Up Care Test Results: Test results from this visit will be discussed in further detail at your follow- up appointment, if applicable. Discharge Plan Admission Admit Date/Time: 10/01/25 23:16 Primary Reason for Your Visit: Confusion Attending Provider: Leah Rdz Primary Care Provider: Harjinder Borjas Consulting Providers: Meaghan France Instructions Patient Instructions: ED Fall Prevention Additional Instructions / Restrictions: DISCHARGE INSTRUCTIONS PLEASE READ *Please take this with you to your next doctors appointment* - You will need to follow-up with pulmonology upon discharge, you indicated you already have an appointment scheduled, will be important to keep this appointment You will be discharged on meloxicam to help with your pain, because of the nature of this medicine it can sometimes cause irritation of the stomach lining that could lead to bleeding so a prescription for pantoprazole to help decrease the chances of that has been sent to preferred pharmacy on file. Please keep your rheumatology appointment as scheduled -Would recommend lab work ( bmp ) to check your kidney function in 2 to 3 days through your primary care physician's office. Please call their office upon discharge to obtain order for lab work. -Weigh yourself every day. A sudden weight gain can mean you are retaining fluid. Weigh yourself at the same time of day and in the same kind of clothes. Ideally, weigh yourself first thing in the morning after you empty your bladder, but before you eat breakfast. -Please call your physician if your weight goes up by more than 2 pounds in 1 day or 5 pounds in 1 week. This can be a sign that you are retaining more fluid than you should be. -Please call your primary care provider's office upon discharge to schedule a hospital follow up within 1 week. -For any concerning signs or symptoms please call 911 or proceed to the nearest emergency department Discharge Orders/Prescriptions Prescriptions: New meloxicam 7.5 mg Tablet 7.5 mg PO DAILY 30 Days Qty: 30 0RF pantoprazole 40 mg Tablet,Delayed Release (Dr/Ec) 40 mg PO DAILY 30 Days Qty: 30 0RF Referrals / Follow Up: Dejon Mcclendon DO [Med Staff - Active Staff, Pulmonary Medicine] Harjinder Borjas MD [Primary Care Provider, Medical] - In 1 Week Disposition Disposition (needs filled in before D/C Order can be placed): Home Health Service
--- NOTE | 2025-10-06 16:46 | DS.PCM_ITS ---
Providers Date of Admission: 10/01/25 Date of Discharge: 10/06/25 Primary Care Physician: Dr. Harjinder Borjas MD Reason For Visit: ADULT FTT Diagnosis Discharge Diagnosis (1) Altered mental status: Status: Acute Code(s): R41.82 - Altered mental status, unspecified Plan # Confusion , weakness, failure to thrive-CVA ruled out # Diffuse joint pain # Heart failure with preserved ejection fraction #Constipation- resolved # History of metastatic non-small cell lung cancer # Possible spiculated right upper lobe lesion Medications at Discharge Home Medications meloxicam 7.5 mg tablet 7.5 mg PO DAILY 30 days #30 tabs 10/06/25 pantoprazole 40 mg tablet,delayed release 40 mg PO DAILY 30 days #30 tabs 10/06/25 Hospital Course Summary of Care Provided Minutes Spent on Discharge: 40 Hospital Course: 80 y/o F w/ PMHx: HFpEF, HTN, HLD, Obesity, Former tobacco use, 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 with chart reported history disseminated malignancy with disease noted to the spine as well as lymph nodes with history of previous spinal surgery of the thoracic spine with rods in place, Hypothyroidism, GERD, Diabetes mellitus type II, CKD stage II per GFR trending, r ecently discharged 09/28/2025 secondary to acute heart failure exacerbation and UTI with associated hypoxemia with echocardiogram with EF 75% with no other acute abnormality or concerns with patient chart reported hesitancy about being discharged on Lasix secondary to chronic urinary incontinence therefore held off on any diuretic at discharge with discharge additionally on oral cefdinir for 2 additional days for urinary tract infection who now [place] presents to the [facility] ED on 10/01/2025 with some confusion and possibly a droopy eyelid. Patient brought in as a stroke rule out and there is also concern that she may have been a little bit fluid overloaded given proBNP of 2908 and chest x-ray with cardiomegaly and pulmonary vascular congestion/edema. Stroke workup negative, patient was diuresed and diuresed very well and appeared to develop somewhat of a contraction alkalosis, she became somewhat confused 1 night and had ABG which showed elevated pCO2 but was fairly compensated for it and in the a.m. was awake and alert, this was repeated and showed worsening though again patient awake and alert, discussed with pulmonology, patient given Diamox and some IV fluids to help correct her metabolic alkalosis as it seemed they metabolic alkalosis was her primary acid-base disturbance with compensatory respiratory acidosis and patient did have some improvement in labs and mental status maintained and patient overall feeling better. May have some component of chronic respiratory acidosis that is compensated given pCO2 was elevated in the 90s with elevated bicarb and pH almost normal and patient mentating normal, it is advised that she follow-up with pulmonology on an outpatient basis for further workup however given improvement in labs and pCO2 with patient's mental status doing well with her awake and alert with no new complaints was felt patient safe for discharge with instructions to follow-up with pulmonology. During her hospitalization she did also report diffuse joint pain, had a negative rheumatoid factor and CCP, ESR of 36 and CRP 32.5 which are nonspecific, patient has tried many medicines in the past without any significant improvement aside from ibuprofen which provides short-term relief. Patient reported many of her functional limitations were due to pain, after discussing risks and benefits of NSAIDs including fluid retention and increased risk of ischemic events like stroke family felt like benefits outweighed risks given her severely limited functional status. Patient was switched over to meloxicam and had significant improvement in her joint pain and would like to stay on this medication. She did not retain fluid despite being placed on this medication and actually required receiving a little bit of fluid as she diuresed so well with Lasix. Do not think she should be discharged on Lasix as she still seems to have somewhat of a contraction alkalosis we will begin to correct on her own on an outpatient basis with any further Lasix held, though recommend that she weighs herself though to assess if she may be retaining any fluid and follow-up with PCP. She also has a follow-up with rheumatology next month and she was advised to keep this given her pain complaints. A day of discharge feeling much better, finally had a bowel movement, meloxicam is still working. Discussed everything with patient and family members at bedside and patient stable for discharge. They verbalized understanding. Discharge instructions as follows: - You will need to follow-up with pulmonology upon discharge, you indicated you already have an appointment scheduled, will be important to keep this appointment You will be discharged on meloxicam to help with your pain, because of the nature of this medicine it can sometimes cause irritation of the stomach lining that could lead to bleeding so a prescription for pantoprazole to help decrease the chances of that has been sent to preferred pharmacy on file. Please keep your rheumatology appointment as scheduled -Would recommend lab work ( bmp ) to check your kidney function in 2 to 3 days through your primary care physician's office. Please call their office upon discharge to obtain order for lab work. -Weigh yourself every day. A sudden weight gain can mean you are retaining fluid. Weigh yourself at the same time of day and in the same kind of clothes. Ideally, weigh yourself first thing in the morning after you empty your bladder, but before you eat breakfast. -Please call your physician if your weight goes up by more than 2 pounds in 1 day or 5 pounds in 1 week. This can be a sign that you are retaining more fluid than you should be. -Please call your primary care provider's office upon discharge to schedule a hospital follow up within 1 week. -For any concerning signs or symptoms please call 911 or proceed to the nearest emergency department Physical Exam Narrative General: Alert, no apparent distress, answering my questions appropriately HEENT: Atraumatic Eyes: Anicteric, normal conjunctiva, extraocular movements grossly intact Neck: Supple Respiratory: No wheezes or rhonchi, normal respiratory effort Cardiovascular: Regular rate GI: Soft, nontender, nondistended Extremities: Lower extremity edema unchanged from yesterday Musculoskeletal: Moving all extremities, still little painful but still improved from presentation Neuro: No overt focal neurological deficits Skin: No new rashes appreciated Psych: Cooperative Weight / BMI Weight Weight: 82.6 kg Body Mass Index (BMI) 32.2 ABG / Lab / Microbiology Data 10/06/25 06:23 10/06/25 06:23 Laboratory: Laboratory Results - last 24 hr 10/06/25 06:23: WBC 3.9 L, RBC 4.01 L, Hgb 11.8 L, Hct 39.9, MCV 99.5 H, MCH 29.4, MCHC 29.6 L, RDW Std Deviation 54.3 H, RDW Coeff of Lalit 14.6, Plt Count 150, MPV 11.1, Immature Gran % (Auto) 0.300, Neut % (Auto) 70.0, Lymph % (Auto) 13.1 L, [place]orne % (Auto) 9.7, Eos % (Auto) 5.9 H, Baso % (Auto) 1.0, Absolute Neuts (auto) 2.7, Absolute Lymphs (auto) 0.51 L, Nucleated RBC % 0, Sodium 141, Potassium 3.6, Chloride 96 L, Carbon Dioxide 41.3 H, Anion Gap 4 L, BUN 15, Creatinine 0.74, Estim Creat Clear Calc 55.19, Est GFR (MDRD) Non-Af 81, BUN/Creatinine Ratio 20.0, Glucose 108 H, Calcium 9.4 ABG: ABG 10/06/25 06:48 Specimen Type ART Sample Site L Radial pH 7.32 L Bicarbonate Actual 43.4 H Total CO2 46 Base Excess 17 H O2 Saturation 96 O2 % 2.0 ABG pCO2 85.1 H* ABG pO2 98 O2 Delivery Device Not entered Vent Mode Not entered Crit Call To/Read Back Yes D/C Instructions DC O2, CPAP, BIPAP Needs Home O2 Discharge instructions: Yes Type of respiratory needs?: Oxygen Oxygen frequency: Continuous Continuous oxygen liters per minute: 2 DC home with Oxygen: Yes Home O2 MD Review: I have reviewed the oxygen testing, and the patient qualifies for home oxygen equipment and portability. The patient is mobile in the home and the community. Meaningful Use Info Meaningful Use Meaningful Use Diagnoses (Choose all that apply): None applicable Discharge Plan Admission Admit Date/Time: 10/01/25 23:16 Primary Reason for Your Visit: Confusion Attending Provider: Leah Rdz Primary Care Provider: Harjinder Borjas Consulting Providers: Meaghan France Instructions Patient Instructions: ED Fall Prevention Additional Instructions / Restrictions: DISCHARGE INSTRUCTIONS PLEASE READ *Please take this with you to your next doctors appointment* - You will need to follow-up with pulmonology upon discharge, you indicated you already have an appointment scheduled, will be important to keep this appointment You will be discharged on meloxicam to help with your pain, because of the nature of this medicine it can sometimes cause irritation of the stomach lining that could lead to bleeding so a prescription for pantoprazole to help decrease the chances of that has been sent to preferred pharmacy on file. Please keep your rheumatology appointment as scheduled -Would recommend lab work ( bmp ) to check your kidney function in 2 to 3 days through your primary care physician's office. Please call their office upon discharge to obtain order for lab work. -Weigh yourself every day. A sudden weight gain can mean you are retaining fluid. Weigh yourself at the same time of day and in the same kind of clothes. Ideally, weigh yourself first thing in the morning after you empty your bladder, but before you eat breakfast. -Please call your physician if your weight goes up by more than 2 pounds in 1 day or 5 pounds in 1 week. This can be a sign that you are retaining more fluid than you should be. -Please call your primary care provider's office upon discharge to schedule a hospital follow up within 1 week. -For any concerning signs or symptoms please call 911 or proceed to the nearest emergency department Discharge Orders/Prescriptions Prescriptions: New meloxicam 7.5 mg Tablet 7.5 mg PO DAILY 30 Days Qty: 30 0RF pantoprazole 40 mg Tablet,Delayed Release (Dr/Ec) 40 mg PO DAILY 30 Days Qty: 30 0RF Referrals / Follow Up: Dejon Mcclendon DO [Med Staff - Active Staff, Pulmonary Medicine] Harjinder Borjas MD [Primary Care Provider, Medical] - In 1 Week Disposition Disposition (needs filled in before D/C Order can be placed): Home Health Service Charges/Coding Visit Charges Inpatient E&M: 26756 Disch Hosp >30min
== END 2025-10-06 18:07 | disposition home health service (06) | DRG 291 ==
LOC: ED 23:15 → PCU 23:25
PROVIDERS: Admitting Provider Family Medicine; Emergency Provider Emergency Medicine; PCP Family Medicine; Visit Provider Internal Medicine
DX: I13.0 Hypertensive heart and chronic kidney disease with heart failure and stage 1 through stage 4 chronic kidney disease, or unspecified chronic kidney disease (principal); I50.31 Acute diastolic (congestive) heart failure; E87.4 Mixed disorder of acid-base balance; R29.706 NIHSS score 6; R62.7 Adult failure to thrive; E11.22 Type 2 diabetes mellitus with diabetic chronic kidney disease; E66.9 Obesity, unspecified; N18.2 Chronic kidney disease, stage 2 (mild); K21.9 Gastro-esophageal reflux disease without esophagitis; E78.5 Hyperlipidemia, unspecified; G47.30 Sleep apnea, unspecified; F41.9 Anxiety disorder, unspecified; M25.50 Pain in unspecified joint; K59.00 Constipation, unspecified; Z87.891 Personal history of nicotine dependence; Z79.899 Other long term (current) drug therapy; R41.82 Altered mental status, unspecified; Z85.118 Personal history of other malignant neoplasm of bronchus and lung; Z90.49 Acquired absence of other specified parts of digestive tract; Z68.34 Body mass index [BMI] 34.0-34.9, adult; Z92.21 Personal history of antineoplastic chemotherapy; Z92.3 Personal history of irradiation; R53.1 Weakness
CPT/HCPCS: 36415; 36600; 70450; 70496; 70498; 70553; 71046; 80048; 80053; 80061; 81001; 82140; 82803; 82962; 83036; 83735; 83880; 84443; 84484; 85025; 85652; 86038; 86140; 86200; 86225; 86431; 93005; 94002; 94762; 97116; 97162; 97166; 97530; 97535; 97802; 99285; 99406; A9575; A4216; J1938

== ENCOUNTER → 2025-10-23 | Outpatient (CLI) | payer MEDICARE, SELFPAY ==
[2018-12-13 14:35] VITALS: BMI 42.2
[2025-10-23 12:38] LABS: Hematocrit 44.7 % (37-47); Hemoglobin 13.3 g/dL (12.0-15.0); Immature Granulocytes Count 0.040 X10^3/uL (0.0-0.0); Mean Corp Hgb Conc 29.8 g/dL (32-36); Mean Corpuscular Volume 99.1 fL (81-99); Mean Platelet Vol. 11.4 fl (6.2-12.0); NRBC Flagged by Analyzer 0 % (0-5); POSITIVE DIFFERENTIAL YES; Platelet Count 215 K/mm3 (150-450); RBC Distribution Width CV 15.1 % (11.6-14.6); RBC Distribution Width SD 55.2 fl (35.1-43.9); Red Blood Count 4.51 M/mm3 (4.2-5.4); White Blood Count 5.9 K/mm3 (4.4-11.0)
[2025-10-23 13:12] LABS: AST(SGOT) 18 U/L (<=31); Alanine Aminotransfer ALT/SGPT 6 U/L (<=34); Albumin, Serum 3.8 g/dL (3.4-4.8); Alkaline Phosphatase 29 U/L (35-104); Anion Gap 10 (5-15); BUN 15 mg/dL (4-19); BUN/Creat Ratio 22.8 RATIO (10-20); Calcium,Total 9.9 mg/dL (7.6-11.0); Carbon Dioxide 34.4 mmol/L (21.0-32.0); Chloride 97 mmol/L (98-108); Globulin 3.7 g/dL (2.2-4.2); Glucose 97 mg/dL (70-99); Hepatitis B Surface Antigen Nonreactive (Nonreactive); Hepatitis C Antibody Nonreactive (Nonreactive); Potassium 4.2 mmol/L (3.3-5.1)
[2025-10-23 13:14] LABS: CRP 8.48 mg/L (0.0-3.0)
== END | disposition home or self-care (01) ==
LOC: MTLAB 10:27
PROVIDERS: PCP Family Medicine; Referring Provider Internal Medicine Rheumatology; Visit Provider Internal Medicine Rheumatology
DX: M06.4 Inflammatory polyarthropathy (principal); Z79.899 Other long term (current) drug therapy
CPT/HCPCS: 36415; 80053; 85025; 85652; 86140; 86200; 86431; 86706; 86803; 87340